=== PATIENT | female | born 1960 | race Caucasian/White ===

== ENCOUNTER 2022-08-23 09:48 | Emergency (ER) | payer OTHER ==
[2022-08-23 10:01] VITALS: RESP 18; TEMP 97.7
--- NOTE | 2022-08-23 10:04 | ED ---
General Adult HPI - General Chief complaint: Weakness Stated complaint: weakness Time Seen by Provider: 08/23/22 09:51 Source: patient, EMS Mode of arrival: EMS Limitations: no limitations - History of Present Illness Initial comments: Dictation was produced using [employer] dictation software. please excuse any grammatical, word or spelling errors. Chief Complaint: 62-year-old female with no known medical problems presents emergency department for lower back pain, left knee pain and numbness to her bilateral hands for several weeks to months History of Present Illness: Patient 62-year-old female she is a daily tobacco user. Patient herself is a poor historian. Patient was brought in by EMS from home. Apparently patient has been weak for the last 2 weeks according to EMS. She states that her hands have been numb for several months. Shows complains of chronic left knee pain and chronic lower back pain. She allegedly has not seen a physician in several years. Denies any fever, chills or night sweats. No recent trauma. The ROS documented in this emergency department record has been reviewed and confirmed by me. Those systems with pertinent positive or negative responses have been documented in the HPI. All other systems are other negative and/or noncontributory. PHYSICAL EXAM: General Impression: Alert and oriented x3, not in acute distress HEENT: Normocephalic atraumatic, extra-ocular movements intact, pupils equal and reactive to light bilaterally, mucous membranes moist. Cardiovascular: Heart regular rate and rhythm Chest: Able to complete full sentences, no retractions, no tachypnea Abdomen: abdomen soft, non-tender, non-distended, no organomegaly Musculoskeletal: Pulses present and equal in all extremities, no peripheral edema Bilateral hands: There is slight bluish tint to the bilateral hands. Decrease bilateral radial pulses, cold to touch, delayed cap refill Motor: no focal deficits noted Neurological: CN II-XII grossly intact, no focal motor or sensory deficits noted Skin: Intact with no visualized rashes Psych: Normal affect and mood ED course: 62-year-old female presents emergency department for chronic complaints of bilateral hand numbness, chronic left knee pain and lower back pain. Signs upon arrival are within acceptable limits. More history was obtained from Destin Bronson was patient's boyfriend. States that they've been dating for approximately urine a half. States that since they've had been dating she's been getting pale more and more weak. States that he has been having difficulty getting her into the primary care doctor. He denies that patient has any sort of acute issues at the moment. Most of her complaints that she is being evaluated for the ER today is ongoing for the last several months. Laboratory evaluation obtained. CBC, coag panel, metabolic panel is unremarkable. Patient reevaluated bedside 11:20 AM on a stable medical condition. Patient given multiple referrals to different primary care physician's in town. They're strongly advised to follow-up for further care. My EKG interpretation: Ventricular rate 50, sinus bradycardia,. Interval 123, tears 89, QTC 425. No AK prolongation, no QTC prolongation, no ST or T-wave changes noted. Overall, this EKG is unremarkable Critical Care: no Critical Care time: n/a - Related Data Allergies Allergy/AdvReac Type Severity Reaction Status Date / Time No Known Allergies Allergy Verified 08/23/22 10:02 Review of Systems ROS Statement: Those systems with pertinent positive or pertinent negative responses have been documented in the HPI. ROS Other: All systems not noted in ROS Statement are negative. Past Medical History Past Medical History: Osteoarthritis (OA) History of Any Multi-Drug Resistant Organisms: None Reported Past Psychological History: No Psychological Hx Reported Smoking Status: Current every day smoker Past Alcohol Use History: None Reported Past Drug Use History: None Reported General Exam Limitations: no limitations Course Vital Signs 08/23/22 09:53 Temperature 97.7 F Pulse Rate 62 Respiratory 18 Rate Blood Pressure 135/108 O2 Sat by Pulse 94 L Oximetry Medical Decision Making - Lab Data Result diagrams: 08/23/22 10:20 08/23/22 10:20 Lab Results 08/23/22 08/23/22 08/23/22 Range/Units 10:05 10:20 10:20 WBC 5.3 (3.8-10.6) k/uL RBC 4.17 (3.80-5.40) m/uL Hgb 14.3 (11.4-16.0) gm/dL Hct 41.2 (34.0-46.0) % MCV 98.7 (80.0-100.0) fL MCH 34.2 (25.0-35.0) pg MCHC 34.6 (31.0-37.0) g/dL RDW 14.4 (11.5-15.5) % Plt Count 103 L (150-450) k/uL MPV 9.4 Neutrophils % 67 % Lymphocytes % 23 % Monocytes % 3 % Eosinophils % 4 % Basophils % 1 % Neutrophils # 3.6 (1.3-7.7) k/uL Lymphocytes # 1.2 (1.0-4.8) k/uL Monocytes # 0.2 (0-1.0) k/uL Eosinophils # 0.2 (0-0.7) k/uL Basophils # 0.1 (0-0.2) k/uL PT 11.1 (9.0-12.0) sec INR 1.0 (<1.2) APTT 28.0 (22.0-30.0) sec Sodium (137-145) mmol/L Potassium (3.5-5.1) mmol/L Chloride (98-107) mmol/L Carbon Dioxide (22-30) mmol/L Anion Gap mmol/L BUN (7-17) mg/dL Creatinine (0.52-1.04) mg/dL Est GFR (CKD-EPI)AfAm (>60 ml/min/1.73 sqM) Est GFR (CKD-EPI)NonAf (>60 ml/min/1.73 sqM) Glucose (74-99) mg/dL POC Glucose (mg/dL) 73 (70-110) mg/dL POC Glu Citrix Lead ID [place], [place] Plasma Lactic Acid José Miguel (0.7-2.0) mmol/L Calcium (8.4-10.2) mg/dL Magnesium (1.6-2.3) mg/dL Total Bilirubin (0.2-1.3) mg/dL AST (14-36) U/L ALT (4-34) U/L Alkaline Phosphatase (38-126) U/L Total Protein (6.3-8.2) g/dL Albumin (3.5-5.0) g/dL 08/23/22 08/23/22 Range/Units 10:20 10:20 WBC (3.8-10.6) k/uL RBC (3.80-5.40) m/uL Hgb (11.4-16.0) gm/dL Hct (34.0-46.0) % MCV (80.0-100.0) fL MCH (25.0-35.0) pg MCHC (31.0-37.0) g/dL RDW (11.5-15.5) % Plt Count (150-450) k/uL MPV Neutrophils % % Lymphocytes % % Monocytes % % Eosinophils % % Basophils % % Neutrophils # (1.3-7.7) k/uL Lymphocytes # (1.0-4.8) k/uL Monocytes # (0-1.0) k/uL Eosinophils # (0-0.7) k/uL Basophils # (0-0.2) k/uL PT (9.0-12.0) sec INR (<1.2) APTT (22.0-30.0) sec Sodium 139 (137-145) mmol/L Potassium 4.2 (3.5-5.1) mmol/L Chloride 105 (98-107) mmol/L Carbon Dioxide 26 (22-30) mmol/L Anion Gap 8 mmol/L BUN 26 H (7-17) mg/dL Creatinine 1.26 H (0.52-1.04) mg/dL Est GFR (CKD-EPI)AfAm 52 (>60 ml/min/1.73 sqM) Est GFR (CKD-EPI)NonAf 45 (>60 ml/min/1.73 sqM) Glucose 138 H (74-99) mg/dL POC Glucose (mg/dL) (70-110) mg/dL POC Glu Citrix Lead ID Plasma Lactic Acid José Miguel 1.0 (0.7-2.0) mmol/L Calcium 7.9 L (8.4-10.2) mg/dL Magnesium 1.7 (1.6-2.3) mg/dL Total Bilirubin 0.7 (0.2-1.3) mg/dL AST 54 H (14-36) U/L ALT 23 (4-34) U/L Alkaline Phosphatase 82 (38-126) U/L Total Protein 7.4 (6.3-8.2) g/dL Albumin 4.5 (3.5-5.0) g/dL Disposition Clinical Impression: Hand numbness, Knee pain, Back pain Disposition: HOME SELF-CARE Condition: Good Instructions (If sedation given, give patient instructions): Osteoarthritis (ED) Additional Instructions: Feel free to follow-up with a primary care physician if your choice. He'll given multiple referrals to different primary care physician's around town. Is patient prescribed a controlled substance at d/c from ED?: No Referrals: Joyce Mcgovern MD [STAFF PHYSICIAN] - 1-2 days Julieta Martinez MD [STAFF PHYSICIAN] - 1-2 days Shawna Masters MD [STAFF PHYSICIAN] - 1-2 days Robert Holley MD [REFERRING] - 1-2 days Time of Disposition: 11:23
[2022-08-23 10:09] LABS: Glucose,Whole Blood 73 mg/dL (70-110)
[2022-08-23 10:33] LABS: Basophils # (A) 0.1 k/uL (0-0.2); Basophils % (A) 1 %; Eosinophils # (A) 0.2 k/uL (0-0.7); Eosinophils % (A) 4 %; HCT 41.2 % (34.0-46.0); HGB 14.3 gm/dL (11.4-16.0); Lymphocytes # (A) 1.2 k/uL (1.0-4.8); Lymphocytes % (A) 23 %; MCH 34.2 pg (25.0-35.0); MCHC 34.6 g/dL (31.0-37.0); MCV 98.7 fL (80.0-100.0); Mean Platelet Volume 9.4; Monocytes # (A) 0.2 k/uL (0-1.0); Monocytes % (A) 3 %; Neutrophils # (A) 3.6 k/uL (1.3-7.7); Neutrophils % (A) 67 %; Platelet Count 103 k/uL (150-450); RBC 4.17 m/uL (3.80-5.40); RDW 14.4 % (11.5-15.5); WBC 5.3 k/uL (3.8-10.6)
[2022-08-23 10:36] LABS: Prothrombin Time 11.1 sec (9.0-12.0)
[2022-08-23 10:39] LABS: Albumin 4.5 g/dL (3.5-5.0); Calcium 7.9 mg/dL (8.4-10.2); Magnesium 1.7 mg/dL (1.6-2.3); Potassium 4.2 mmol/L (3.5-5.1); Total Bilirubin 0.7 mg/dL (0.2-1.3); Total Protein 7.4 g/dL (6.3-8.2)
--- NOTE | 2022-08-23 11:05 | XR ---
EXAMINATION TYPE: XR lumbar spine 3 views XR left knee 4 views DATE OF EXAM: 08/23/2022 Comparison: None Clinical History: 62-year-old female pain Findings: Lumbar spine Lateral endplate spondylosis at multiple levels either region are partially bridging. Moderate multil evel degenerative disc disease with disc space narrowing and endplate spurring. Degenerative grade 1 retrolisthesis L2-L3 and L3-L4. Degenerative grade 1 anterolisthesis L4-L5. Hypertrophic facet arthro kelly mid to lower lumbar spine. Atherosclerotic calcification but the lower abdominal aorta and shira c arteries. Vertebral body heights are preserved. Possible large stool burden. Left knee: Extensor mechanism is intact. No knee joint effusion. Suggestion of some posterior loose bodies sugge sting underlying degenerative change. There is mild degenerative spurring medial compartment. Patella remains a peripherally situated along the trochlear groove. IMPRESSION: Lumbar spine: 1. Moderate multilevel degenerative disc disease. Hypertrophic facet arthropathy. 2. Degenerative grade 1 spondylolisthesis L2-L3, L3-L4, and L4-L5. 3. No vertebral compression collapse. 4. Possible large stool burden on the lateral view. Query constipation. Left knee: 5. At least mild medial compartmental osteoarthrosis. Suspect some posterior loose bodies in the knee . 6. No acute osseous abnormality seen.
[2022-08-23] MEDS ORDERED: traMADol 50 MG STARTER PACK 3 TAB BTL PO STA (11:23)
[2022-08-23 11:58] VITALS: BP 117/84; PULSE 78
== END 2022-08-23 11:57 | disposition home or self-care (01) ==
LOC: EC 09:48
DX: R20.0 Anesthesia of skin (principal); M25.562 Pain in left knee; M54.50 Low back pain, unspecified; M19.90 Unspecified osteoarthritis, unspecified site; F17.200 Nicotine dependence, unspecified, uncomplicated
CPT/HCPCS: 36415; 72100; 80053; 83605; 83735; 85025; 85610; 85730; 93005; 99285

== ENCOUNTER 2022-09-01 07:47 | Inpatient (IN) | payer OTHER ==
[2022-09-01] MEDS ORDERED: SODIUM CHLORIDE 0.9% 1,000 ML IV STA (08:05)
[2022-09-01 08:32] LABS: Prothrombin Time 10.7 sec (9.0-12.0)
[2022-09-01 08:33] LABS: Partial Thromboplastin Time 27.4 sec (22.0-30.0)
[2022-09-01 08:39] LABS: Basophils # (A) 0.1 k/uL (0-0.2); Basophils % (A) 1 %; Eosinophils # (A) 0.4 k/uL (0-0.7); Eosinophils % (A) 4 %; HCT 40.4 % (34.0-46.0); HGB 14.1 gm/dL (11.4-16.0); Lymphocytes # (A) 1.2 k/uL (1.0-4.8); Lymphocytes % (A) 10 %; MCH 33.8 pg (25.0-35.0); MCHC 34.8 g/dL (31.0-37.0); MCV 97.1 fL (80.0-100.0); Mean Platelet Volume 9.9; Monocytes # (A) 0.5 k/uL (0-1.0); Monocytes % (A) 4 %; Neutrophils # (A) 9.2 k/uL (1.3-7.7); Neutrophils % (A) 81 %; Platelet Count 107 k/uL (150-450); RBC 4.16 m/uL (3.80-5.40); RDW 14.1 % (11.5-15.5); WBC 11.3 k/uL (3.8-10.6)
[2022-09-01 08:40] LABS: ALT 20 U/L (4-34); AST 52 U/L (14-36); African American GFR (CKD) 40 (>60 ml/min/1.73 sqM); Albumin 4.5 g/dL (3.5-5.0); Alkaline Phosphatase 80 U/L (38-126); Anion Gap 10 mmol/L; Blood Urea Nitrogen 35 mg/dL (7-17); Calcium 7.8 mg/dL (8.4-10.2); Carbon Dioxide 26 mmol/L (22-30); Chloride 105 mmol/L (98-107); Glucose 82 mg/dL (74-99); Magnesium 1.8 mg/dL (1.6-2.3); Non-African American GFR(CKD) 35 (>60 ml/min/1.73 sqM); Potassium 4.2 mmol/L (3.5-5.1); Sodium 141 mmol/L (137-145); Total Bilirubin 0.7 mg/dL (0.2-1.3); Total Protein 7.3 g/dL (6.3-8.2)
--- NOTE | 2022-09-01 08:50 | ED ---
General Adult HPI - General Chief complaint: Weakness Stated complaint: weakness Time Seen by Provider: 09/01/22 07:47 Source: patient, EMS, RN notes reviewed, old records reviewed Mode of arrival: EMS Limitations: no limitations - History of Present Illness Initial comments: This is a 62-year-old female who presents emergency Department complaining of weakness shortness of breath and constipation getting worse over the last 2 weeks but much worse over the last week. Patient denies any chest pain patient denies abdominal pain patient denies any vomiting. Patient denies nausea. Patient denies any lightheadedness or dizziness. Patient denies any fever chills or cough. Patient denies any back pain. Patient states she never sees a doctor. Patient states she was in the hospital 2 weeks ago however and they told her she was weak because of her arthritis and sent her home. Patient did not follow-up with a physician. Patient denies any recent injury. Patient denies dysuria hematuria urinary frequency. - Related Data Home Medications Medication Instructions Recorded Confirmed No Known Home Medications 09/01/22 09/01/22 Allergies Allergy/AdvReac Type Severity Reaction Status Date / Time No Known Allergies Allergy Verified 09/01/22 09:50 Review of Systems ROS Statement: Those systems with pertinent positive or pertinent negative responses have been documented in the HPI. ROS Other: All systems not noted in ROS Statement are negative. Past Medical History Past Medical History: Osteoarthritis (OA) History of Any Multi-Drug Resistant Organisms: None Reported Past Surgical History: No Surgical Hx Reported Past Psychological History: No Psychological Hx Reported Smoking Status: Current every day smoker Past Alcohol Use History: None Reported Past Drug Use History: None Reported General Exam - General Exam Comments Initial Comments: GENERAL: Patient is well-developed and well-nourished. Patient is nontoxic and well- hydrated and is in mild distress. ENT: Neck is soft and supple. No significant lymphadenopathy is noted. Oropharynx is clear. Dry mucous membranes. Neck has full range of motion without eliciting any pain. EYES: The sclera were anicteric and conjunctiva were pink and moist. Extraocular movements were intact and pupils were equal round and reactive to light. Eyelids were unremarkable. PULMONARY: Unlabored respirations. Good breath sounds bilaterally. No audible rales rhonchi or wheezing was noted. CARDIOVASCULAR: There is a regular rate and rhythm without any murmurs gallops or rubs. ABDOMEN: Patient has a mass in the mid to right lower abdomen SKIN: Skin is clear with no lesions or rashes and otherwise unremarkable. NEUROLOGIC: Patient is alert and oriented x3. Cranial nerves II through XII are grossly intact. Motor and sensory are also intact. Normal speech, volume and content. Symmetrical smile. MUSCULOSKELETAL: Normal extremities with adequate strength and full range of motion. No lower extremity swelling or edema. No calf tenderness. LYMPHATICS: No significant lymphadenopathy is noted PSYCHIATRIC: Normal psychiatric evaluation. Limitations: no limitations Course Vital Signs 09/01/22 07:48 Temperature 97.6 F Pulse Rate 58 L Respiratory 18 Rate Blood Pressure 112/81 O2 Sat by Pulse 98 Oximetry Medical Decision Making - Medical Decision Making I interpreted EKG EKG shows sinus rhythm at 60 bpm DC interval is 119 QRS is 82 QT intervals 410 QTC is 411. Patient's EKG shows no ST segment elevation or depression. I interpreted the chest x-ray shows no acute abnormality. I interpreted the KUB it shows moderate constipation. Patient received multiple enemas in the ER with some results. Patient's TSH was over 100. I started the patient on Synthroid IV as well as hydrocortisone. I did this to prevent the patient from entering into myxedema. Currently patient is alert and oriented. She is just extremely weak. I spoke with Dr. robertson he agreed to admit the patient admitted the patient I wrote admitting orders. After I admitted the patient patient admitted that she used to take Synthroid but no longer takes and doesn't know why. - Lab Data Result diagrams: 09/01/22 08:14 09/01/22 08:14 Lab Results 09/01/22 09/01/22 09/01/22 Range/Units 08:14 08:14 08:14 WBC 11.3 H (3.8-10.6) k/uL RBC 4.16 (3.80-5.40) m/uL Hgb 14.1 (11.4-16.0) gm/dL Hct 40.4 (34.0-46.0) % MCV 97.1 (80.0-100.0) fL MCH 33.8 (25.0-35.0) pg MCHC 34.8 (31.0-37.0) g/dL RDW 14.1 (11.5-15.5) % Plt Count 107 L (150-450) k/uL MPV 9.9 Neutrophils % 81 % Lymphocytes % 10 % Monocytes % 4 % Eosinophils % 4 % Basophils % 1 % Neutrophils # 9.2 H (1.3-7.7) k/uL Lymphocytes # 1.2 (1.0-4.8) k/uL Monocytes # 0.5 (0-1.0) k/uL Eosinophils # 0.4 (0-0.7) k/uL Basophils # 0.1 (0-0.2) k/uL PT 10.7 (9.0-12.0) sec INR 1.0 (<1.2) APTT 27.4 (22.0-30.0) sec Sodium 141 (137-145) mmol/L Potassium 4.2 (3.5-5.1) mmol/L Chloride 105 (98-107) mmol/L Carbon Dioxide 26 (22-30) mmol/L Anion Gap 10 mmol/L BUN 35 H (7-17) mg/dL Creatinine 1.57 H (0.52-1.04) mg/dL Est GFR (CKD-EPI)AfAm 40 (>60 ml/min/1.73 sqM) Est GFR (CKD-EPI)NonAf 35 (>60 ml/min/1.73 sqM) Glucose 82 (74-99) mg/dL Plasma Lactic Acid José Miguel (0.7-2.0) mmol/L Calcium 7.8 L (8.4-10.2) mg/dL Magnesium 1.8 (1.6-2.3) mg/dL Total Bilirubin 0.7 (0.2-1.3) mg/dL AST 52 H (14-36) U/L ALT 20 (4-34) U/L Alkaline Phosphatase 80 (38-126) U/L Troponin I (0.000-0.034) ng/mL Total Protein 7.3 (6.3-8.2) g/dL Albumin 4.5 (3.5-5.0) g/dL TSH >100.000 H (0.465-4.680) mIU/L Free T4 (0.78-2.19) ng/dL Urine Color Urine Appearance (Clear) Urine pH (5.0-8.0) Ur Specific [place] (1.001-1.035) Urine Protein (Negative) Urine Glucose (UA) (Negative) Urine Ketones (Negative) Urine Blood (Negative) Urine Nitrite (Negative) Urine Bilirubin (Negative) Urine Urobilinogen (<2.0) mg/dL Ur Leukocyte Esterase (Negative) Urine RBC (0-5) /hpf Urine WBC (0-5) /hpf Ur Squamous Epith Cells (0-4) /hpf Urine Mucus (None) /hpf 09/01/22 09/01/22 09/01/22 Range/Units 08:14 08:14 08:14 WBC (3.8-10.6) k/uL RBC (3.80-5.40) m/uL Hgb (11.4-16.0) gm/dL Hct (34.0-46.0) % MCV (80.0-100.0) fL MCH (25.0-35.0) pg MCHC (31.0-37.0) g/dL RDW (11.5-15.5) % Plt Count (150-450) k/uL MPV Neutrophils % % Lymphocytes % % Monocytes % % Eosinophils % % Basophils % % Neutrophils # (1.3-7.7) k/uL Lymphocytes # (1.0-4.8) k/uL Monocytes # (0-1.0) k/uL Eosinophils # (0-0.7) k/uL Basophils # (0-0.2) k/uL PT (9.0-12.0) sec INR (<1.2) APTT (22.0-30.0) sec Sodium (137-145) mmol/L Potassium (3.5-5.1) mmol/L Chloride (98-107) mmol/L Carbon Dioxide (22-30) mmol/L Anion Gap mmol/L BUN (7-17) mg/dL Creatinine (0.52-1.04) mg/dL Est GFR (CKD-EPI)AfAm (>60 ml/min/1.73 sqM) Est GFR (CKD-EPI)NonAf (>60 ml/min/1.73 sqM) Glucose (74-99) mg/dL Plasma Lactic Acid José Miguel 1.1 (0.7-2.0) mmol/L Calcium (8.4-10.2) mg/dL Magnesium (1.6-2.3) mg/dL Total Bilirubin (0.2-1.3) mg/dL AST (14-36) U/L ALT (4-34) U/L Alkaline Phosphatase (38-126) U/L Troponin I <0.012 (0.000-0.034) ng/mL Total Protein (6.3-8.2) g/dL Albumin (3.5-5.0) g/dL TSH (0.465-4.680) mIU/L Free T4 0.15 L (0.78-2.19) ng/dL Urine Color Urine Appearance (Clear) Urine pH (5.0-8.0) Ur Specific [place] (1.001-1.035) Urine Protein (Negative) Urine Glucose (UA) (Negative) Urine Ketones (Negative) Urine Blood (Negative) Urine Nitrite (Negative) Urine Bilirubin (Negative) Urine Urobilinogen (<2.0) mg/dL Ur Leukocyte Esterase (Negative) Urine RBC (0-5) /hpf Urine WBC (0-5) /hpf Ur Squamous Epith Cells (0-4) /hpf Urine Mucus (None) /hpf 09/01/22 Range/Units 09:40 WBC (3.8-10.6) k/uL RBC (3.80-5.40) m/uL Hgb (11.4-16.0) gm/dL Hct (34.0-46.0) % MCV (80.0-100.0) fL MCH (25.0-35.0) pg MCHC (31.0-37.0) g/dL RDW (11.5-15.5) % Plt Count (150-450) k/uL MPV Neutrophils % % Lymphocytes % % Monocytes % % Eosinophils % % Basophils % % Neutrophils # (1.3-7.7) k/uL Lymphocytes # (1.0-4.8) k/uL Monocytes # (0-1.0) k/uL Eosinophils # (0-0.7) k/uL Basophils # (0-0.2) k/uL PT (9.0-12.0) sec INR (<1.2) APTT (22.0-30.0) sec Sodium (137-145) mmol/L Potassium (3.5-5.1) mmol/L Chloride (98-107) mmol/L Carbon Dioxide (22-30) mmol/L Anion Gap mmol/L BUN (7-17) mg/dL Creatinine (0.52-1.04) mg/dL Est GFR (CKD-EPI)AfAm (>60 ml/min/1.73 sqM) Est GFR (CKD-EPI)NonAf (>60 ml/min/1.73 sqM) Glucose (74-99) mg/dL Plasma Lactic Acid José Miguel (0.7-2.0) mmol/L Calcium (8.4-10.2) mg/dL Magnesium (1.6-2.3) mg/dL Total Bilirubin (0.2-1.3) mg/dL AST (14-36) U/L ALT (4-34) U/L Alkaline Phosphatase (38-126) U/L Troponin I (0.000-0.034) ng/mL Total Protein (6.3-8.2) g/dL Albumin (3.5-5.0) g/dL TSH (0.465-4.680) mIU/L Free T4 (0.78-2.19) ng/dL Urine Color Yellow Urine Appearance Clear (Clear) Urine pH 5.5 (5.0-8.0) Ur Specific [place] 1.014 (1.001-1.035) Urine Protein Trace H (Negative) Urine Glucose (UA) Negative (Negative) Urine Ketones Negative (Negative) Urine Blood Moderate H (Negative) Urine Nitrite Negative (Negative) Urine Bilirubin Negative (Negative) Urine Urobilinogen <2.0 (<2.0) mg/dL Ur Leukocyte Esterase Moderate H (Negative) Urine RBC 19 H (0-5) /hpf Urine WBC 6 H (0-5) /hpf Ur Squamous Epith Cells 2 (0-4) /hpf Urine Mucus Rare H (None) /hpf Critical Care Time Critical Care Time: Yes Total Critical Care Time: 35 Disposition Clinical Impression: Hypothyroidism, Generalized weakness, Renal insufficiency Disposition: ADMITTED IP TO THIS [facility] Referrals: None,Stated [Primary Care Provider] - 1-2 days Time of Disposition: 12:00
--- NOTE | 2022-09-01 09:03 | XR ---
EXAMINATION TYPE: XR chest 2V DATE OF EXAM: 09/01/2022 COMPARISON: NONE HISTORY: Weakness. TECHNIQUE: Frontal and lateral views of the chest are obtained. FINDINGS: There is no focal air space opacity, pleural effusion, or pneumothorax seen. Cardiomegaly is present. Overlying EKG leads are noted. Spine is straightened on lateral projection. IMPRESSION: Cardiomegaly without acute pulmonary process.
--- NOTE | 2022-09-01 09:05 | XR ---
EXAMINATION TYPE: XR KUB DATE OF EXAM: 09/01/2022 8:58 AM CLINICAL HISTORY: Abdominal pain and weakness. TECHNIQUE: Single supine KUB image of the abdomen is obtained. COMPARISON: None. FINDINGS: Gas is seen in small and large bowel loops throughout the abdomen and pelvis. There is prom inent gas filled colonic loop in the upper to mid abdomen likely reflects portion of transverse colon . Colonic fecal prominence in the pelvis is noted. Slight scoliotic curvature with multilevel spurrin g in the spine. Advanced degenerative change left hip with marked joint space narrowing. Pelvis not c ompletely imaged. IMPRESSION: Overall nonspecific but favor nonobstructive bowel gas pattern. Severe distal colonic fecal stasis is suspected. Correlate clinically.
[2022-09-01 10:59] LABS: Appearance,Urine Clear (Clear); Bilirubin,Urine Negative (Negative); Blood,Urine Moderate (Negative); Color,Urine Yellow; Glucose,Urine (UA) Negative (Negative); Ketones,Urine Negative (Negative); Leukocyte Esterase,Urine Moderate (Negative); Mucus,Urine Rare /hpf; Nitrite,Urine Negative (Negative); PH, Urine 5.5 (5.0-8.0); Protein,Urine Trace (Negative); RBC,Urine 19 /hpf (0-5); Specific Gravity,Urine 1.014 (1.001-1.035); Squamous Epithelial Cell,Urine 2 /hpf (0-4); Urobilinogen,Urine <2.0 mg/dL (<2.0); WBC,Urine 6 /hpf (0-5)
[2022-09-01] MEDS ORDERED: HYDROCORTISONE SUCCINATE 100 MG/2 ML VIAL IV STA (11:34)
[2022-09-01] MEDS ORDERED: LEVOTHYROXINE IVP 100 MCG/5 ML VIAL IV STA (11:40)
[2022-09-01] MEDS ORDERED: SODIUM CHLORIDE 0.9% 1,000 ML IV ONE (12:16)
[2022-09-01] MEDS ORDERED: IPRATROPIUM-ALBUTEROL 3 ML NEB INHALATION PRN (13:32)
[2022-09-01] MEDS ORDERED: IOPAMIDOL CONTRAST (ORAL USE) VIAL PO PRN (13:33)
--- NOTE | 2022-09-01 13:41 | P.HPIM ---
History of Present Illness This is a pleasant 62 years old female with past medical history of osteoarthritis, Patient presents because of increased weakness, numbness in her hands and feet Patient states that she feels weak for 4 months, however since yesterday she said she cannot walk because of her weakness, at baseline she uses a walker. She lives in apartment with her boyfriend. Also she reports chronic numbness in her hand and feet for about a month. She denies any other numbness, no blurred vision or slurred speech. No dizziness. She denies chest pain or dyspnea. However she states that she has headache about 5/10 of one day duration, but also she reports chronic pain in her neck. She denies chest pain or dyspnea, she had normal bowel movement no vomiting no abdominal pain or tenderness however her abdomen looks significantly distended. She smokes about half pack per day, she was counseled to quit she declines also she does not want nicotine patch. No alcohol or illicit drug. She says that she supposed to be on thyroid hormone replacement therapy but she stopped taking it for 1.5 years ago because she thought she does not needed. She states that she supposed to be on vitamin D, acid reflux disease and inhaler as she has history of COPD Vitas looks stable, patient is afebrile she is not hypothermic. Labs showing mild leukocytosis of 11.3. Rest of CBC, INR is unremarkable Creatinine is trending up 1.5, it was 1.2 about 10 days ago. Trace of BMP and liver enzymes were unremarkable. TSH is more than 100, free T4 is less than 0.15 EKG showing sinus rhythm with short WI interval, T waves in the lateral limits. No significant ST-T changes Abdominal x-ray/KUB: Overall nonspecific but favor nonobstructive bowel gas pattern. Severe distal colonic fecal stasis is suspected. Chest x-ray: Cardiomegaly without acute pulmonary process serum cortisol is 14 in the emergency room patient received 1 dose of Cortef 100 mg as well as IV levothyroxine. Also she was started on normal saline 100 mL per hour. Review of Systems Review of systems CONSTITUTIONAL: No fever, , no fatigue. HEENT: No recent visual problems or hearing problems. Denied any sore throat. CARDIOVASCULAR: No orthopnea, PND, no palpitations, no syncope. PULMONARY: No shortness of breath, no cough, no hemoptysis. GASTROINTESTINAL: No diarrhea, no nausea, no vomiting, no abdominal pain. Normoactive bowel sounds. NEUROLOGICAL: no weakness, no numbness. HEMATOLOGICAL: Denies any bleeding or petechiae. GENITOURINARY: Denies any burning micturition, frequency, or urgency. MUSCULOSKELETAL/RHEUMATOLOGICAL: Denies any joint pain, swelling, or any muscle pain. ENDOCRINE: Denies any polyuria or polydipsia. Past Medical History Past Medical History: Osteoarthritis (OA) History of Any Multi-Drug Resistant Organisms: None Reported Past Surgical History: No Surgical Hx Reported Past Psychological History: No Psychological Hx Reported Smoking Status: Current every day smoker Past Alcohol Use History: None Reported Past Drug Use History: None Reported Medications and Allergies Home Medications Medication Instructions Recorded Confirmed Type No Known Home Medications 09/01/22 09/01/22 History Allergies Allergy/AdvReac Type Severity Reaction Status Date / Time No Known Allergies Allergy Verified 09/01/22 09:50 Physical Exam Vitals: Vital Signs Temp Pulse Resp BP Pulse Ox 09/01/22 07:48 97.6 F 58 L 18 112/81 98 Intake and Output 08/31/22 09/01/22 09/01/22 22:59 06:59 14:59 Other: Weight 79.379 kg -GENERAL: The patient is alert and oriented x3, not in any acute distress. Well developed, well nourished. Generally weak HEENT: Pupils are round and equally reacting to light. EOMI. No scleral icterus. No conjunctival pallor. Normocephalic, atraumatic. No pharyngeal erythema. No thyromegaly. CARDIOVASCULAR: S1 and S2 present. No murmurs, rubs, or gallops. PULMONARY: Chest is clear to auscultation, no wheezing or crackles. -ABDOMEN: Soft, nontender, distended, normoactive bowel sounds. No palpable organomegaly. MUSCULOSKELETAL: No joint swelling or deformity. EXTREMITIES: No cyanosis, clubbing, or pedal edema. -NEUROLOGICAL: Gross neurological examination did not reveal any focal deficits. Cranial nerves are grossly intact. Motor is 5/5 in all extremity, right lower extremity is 4+/5 but this could be limited by patient joint problems. Sensation is intact. Meningeal signs are absent SKIN: No rashes. no petechiae. Results CBC & Chem 7: 09/01/22 08:14 09/01/22 08:14 Labs: Abnormal Lab Results - Last 24 Hours (Table) 09/01/22 09/01/22 09/01/22 Range/Units 08:14 08:14 08:14 WBC 11.3 H (3.8-10.6) k/uL Plt Count 107 L (150-450) k/uL Neutrophils # 9.2 H (1.3-7.7) k/uL BUN 35 H (7-17) mg/dL Creatinine 1.57 H (0.52-1.04) mg/dL Calcium 7.8 L (8.4-10.2) mg/dL AST 52 H (14-36) U/L TSH >100.000 H (0.465-4.680) mIU/L Free T4 0.15 L (0.78-2.19) ng/dL Urine Protein (Negative) Urine Blood (Negative) Ur Leukocyte Esterase (Negative) Urine RBC (0-5) /hpf Urine WBC (0-5) /hpf Urine Mucus (None) /hpf 09/01/22 Range/Units 09:40 WBC (3.8-10.6) k/uL Plt Count (150-450) k/uL Neutrophils # (1.3-7.7) k/uL BUN (7-17) mg/dL Creatinine (0.52-1.04) mg/dL Calcium (8.4-10.2) mg/dL AST (14-36) U/L TSH (0.465-4.680) mIU/L Free T4 (0.78-2.19) ng/dL Urine Protein Trace H (Negative) Urine Blood Moderate H (Negative) Ur Leukocyte Esterase Moderate H (Negative) Urine RBC 19 H (0-5) /hpf Urine WBC 6 H (0-5) /hpf Urine Mucus Rare H (None) /hpf Assessment and Plan Assessment: Hypothyroidism with TSH more than 100 and low T4 Acute kidney injury Possible acute urinary tract infection Versus asymptomatic bacteriuria Generalized weakness secondary to above bilateral hands and feet numbness, chronic 1 month Abdominal distention Noncompliance with medication and follow-up COPD, not an active issue Nicotine dependence Plan: Continue with normal saline Start levothyroxine Start ceftriaxone follow-up urine culture Start that replacement therapy Consult neurology service Check bladder scan we will do CT of the abdomen and pelvis without IV contrast, risks and benefits are explained for the patient and she agrees Check Pro-calcitonin. Follow-up urine culture I offered patient to transfer her to a tertiary care center as we don't have database technician in this facility, patient declined and she wants to stay here for treatment. Risks and benefits are explained for the patient and she verbalized understanding Labs and medication were reviewed.. Continue same treatment. Continue with symptomatic treatment. Resume home medication. Monitor labs and vitals. DVT and GI prophylaxis. Further recommendations as per clinical course of the patient DVT prophylaxis: Subcutaneous heparin GI Prophylaxis: Pepcid PT/OT: Pending Prognosis is guarded
[2022-09-01 17:17] LABS: C Reactive Protein 0.9 mg/dL (<1.0)
--- NOTE | 2022-09-01 17:23 | CT ---
EXAMINATION TYPE: CT brain wo con CT DLP: 1137.4 mGycm, Automated exposure control for dose reduction was used. DATE OF EXAM: 09/01/2022 4:58 PM COMPARISON: None. CLINICAL INDICATION:Female, 62 years old with history of Abnormal gait, Abnormal gait, weakness TECHNIQUE: Brain: Axial CT images of the brain were obtained with coronal and sagittal reformats created and rev iewed. Contrast used: None. Oral contrast used: None. FINDINGS: Brain: Extra-axial spaces: No abnormal extra-axial fluid collections. Ventricular system: Within normal limits Cerebral parenchyma: No acute intraparenchymal hemorrhage or mass effect. Hypodense foci in the thal ami bilaterally are present left greater than right. The duke-white junction is well differentiated. Scattered hypoattenuating areas are seen within the white matter. Cerebellum: Unremarkable. Mass effect: No evidence of midline shift. Intracranial vasculature: Atherosclerotic calcifications of the intracranial vessels. Soft tissues: Normal. Calvarium/osseous structures: No depressed skull fracture. Paranasal sinuses and mastoid air cells: Mild scattered paranasal sinus disease most proximal right a xilla sinus and right anterior ethmoid air cells. Visualized orbits: Orbital contents are intact. IMPRESSION: 1. no acute intracranial process. 2. Indeterminate likely remote lacunar injuries within the thalami along with nonspecific white matte r changes likely secondary to chronic microangiopathy.
--- NOTE | 2022-09-01 17:41 | CT ---
EXAMINATION TYPE: CT abdomen pelvis wo con CT DLP: 582.7 mGycm, Automated exposure control for dose reduction was used. DATE OF EXAM: 09/01/2022 5:04 PM COMPARISON: None CLINICAL INDICATION:Female, 62 years old with history of abd distension; Abdominal distension, no bow el movement for a while. Did attempt oral contrast. TECHNIQUE: Axial CT of the abdomen and pelvis. Sagittal and coronal reformats were created on a [email or web address] workstation. Contrast used: None Oral contrast used: with Oral Contrast FINDINGS: LOWER CHEST: Unremarkable ABDOMEN LIVER: Unremarkable GALLBLADDER AND BILE DUCTS: Few gallstones are present. PANCREAS: Unremarkable. SPLEEN: Unremarkable. ADRENAL GLANDS: Unremarkable. KIDNEYS AND URETERS: Mild bilateral hydronephrosis likely secondary to mass effect from large stool b urden. No evidence of obstructive calculus. PELVIS BLADDER: Displaced secondary to large stool burden. REPRODUCTIVE: Displaced secondary to large stool burden. ABDOMEN & PELVIS STOMACH AND BOWEL: Marked amount of stool is seen throughout the rectum measuring up to 11.4 cm. Carlos tional large amount of stool seen in the colon particularly the descending colon along with a large a mount of gas. There is circumferential wall thickening of the rectum measuring up to 6 mm. There is a large amount of ingested contents within the stomach. PERITONEUM: No evidence of pneumoperitoneum or free fluid. VASCULATURE: No evidence of aortic aneurysm. Atherosclerosis of the arterial vasculature. MUSCULOSKELETAL: No acute osseous abnormalities LYMPH NODES: No gross evidence for lymphadenopathy. SOFT TISSUE/ABDOMINAL WALL: Unremarkable IMPRESSION: 1. Marked amount of stool seen throughout the colon particularly the sigmoid colon and descending co krishna. Fecal disimpaction recommended as there are signs of stercoral colitis with wall thickening of t he rectum. 2. Cholelithiasis. 3. Mild bilateral hydronephrosis likely secondary to mass effect from large stool burden.
[2022-09-01] MEDS ORDERED: MINERAL OIL 133 ML ENEMA RECTAL STA (18:05)
--- NOTE | 2022-09-01 18:11 | P.CNNES ---
History of Present Illness Consult date: 09/01/22 Requesting physician: Chema Rodrigues Reason for Consult: Cannot walk History of Present Illness: Patient is a 62-year-old female came to the hospital by ambulance today at 7:47 AM. As per EMS flow sheet, when they arrived, patient was alert and oriented sitting upright in chair. Patient noted that over the past 2 weeks, she has become progressively weaker and is now unable to ambulate on her own. Patient's family have noticed that patient has difficulty clearly speaking over the same period of time. Patient has noted constipation and unable to have a bowel movement in over a week. Patient's abdomen is severely distended enlarged hard nonpainful mass is noted in the right upper abdomen. EKG showed sinus rhythm. Patient's vitals at the scene showed blood pressure 124/86, pulse rate 60, respiration 20 and saturation 98%. EKG shows sinus rhythm. KUB revealed overall nonspecific but favor nonobstructive bowel gas pattern. Severe distal colonic fecal stasis is suspected. Chest x-ray revealed cardiomegaly without acute pulmonary process. Blood test shows WBC 11.3 hemoglobin 14.1, platelets 107. PT/PTT is normal, electrolytes are normal, BUN 35 creatinine 1.57. AST 52, ALT 20. Troponin negative. TSH is > 100, free T4 is low 0.15. Cortisol is normal. UA shows moderate amount of leukocyte Estrace and 6 WBC. Patient and her significant other provided further history. Patient has been slightly wobbly for last 1 year, which has slowly gotten worse, particularly in the last 2 weeks when she has not been able to get up or walk. her memory is fine. No problems with control of bladder or urgency, although she does not drink much fluids so she does not have to pass urine as frequent. patient states that in the last 1 month she has developed lack of feeling in the hands all the way up to the shoulders. For the same period of time, she has developed numbness of her legs all the way as to the hips. She has to navigate around holding on the rawls for walking. However in the last 2 weeks she has not been able to walk. She scoot around a walker with seat. She started using walker about 2 weeks ago. Patient admits to neck pain, but not as bad, rates 5/10. It is on and off. She denies any headaches. Patient has smoked 1 pack per day for last 42 years. Denies any alcohol or drug use. Patient denies any diabetes or blood pressure. Patient currently does not take any medications. She was given thyroid medication in the past but has not taken it for almost 16 months. Review of Systems Constitutional: Reports weakness, Denies chills, Denies fever Eyes: denies blurred vision, denies pain Ears, nose, mouth and throat: Denies headache, Denies sore throat Cardiovascular: Denies chest pain, Denies shortness of breath Respiratory: Denies cough Gastrointestinal: Denies abdominal pain, Denies diarrhea, Denies nausea, Denies vomiting Genitourinary: Denies dysuria, Denies hematuria Musculoskeletal: Reports muscle weakness, Reports neck pain, Denies myalgias Integumentary: Denies pruritus, Denies rash Neurological: Reports as per HPI Psychiatric: Denies anxiety, Denies depression Hematologic/Lymphatic: Denies easy bruising Past Medical History Past Medical History: Osteoarthritis (OA) History of Any Multi-Drug Resistant Organisms: None Reported Past Surgical History: No Surgical Hx Reported Past Psychological History: No Psychological Hx Reported Smoking Status: Current every day smoker Past Alcohol Use History: None Reported Past Drug Use History: None Reported - Past Family History Mother History Unknown: Yes Medications and Allergies Home Medications Medication Instructions Recorded Confirmed Type No Known Home Medications 09/01/22 09/01/22 History Allergies Allergy/AdvReac Type Severity Reaction Status Date / Time No Known Allergies Allergy Verified 09/01/22 09:50 Physical Examination - Vital Signs Vital Signs: Vital Signs Temp Pulse Resp BP Pulse Ox 09/01/22 07:48 97.6 F 58 L 18 112/81 98 Intake and Output 08/31/22 09/01/22 09/01/22 22:59 06:59 14:59 Other: Weight 79.379 kg Patient is a late middle aged female in no acute distress. Patient is alert awake oriented to time place and person. Patient knows it is August 2022 and that patient is in [facility] and name of the current president. Speech and language functions are normal. Patient can name and repeat very well. No aphasia or dysarthria. Attention, concentration and fund of knowledge is adequate. On cranial nerve examination, pupils are equal, round and reacting to light, visual park are full on confrontation, with no neglect on double simultaneous stimulation. Extraocular muscles are intact with no nystagmus. Face is symmetric, tongue protrudes to the midline. Palatal elevation and sensation normal, hearing and shoulder shrug normal, facial sensation normal. On muscle strength testing, there is no pronator drift and the strength is (right/left) deltoid 5/4, biceps 5/5, triceps 5/5, powerhouse electrician 5-/5-, hip flexion 3+4-/3+4-, hip adduction 5/5, abduction 4+5-/4+5-, knee extension 5/5, ankle dorsiflexion 5/5, toe extension 5/5. Deep tendon reflexes are (right/left) biceps 2+/3, brachioradialis 2+/3, knees 2+/to, ankles 0/0 and plantars are upgoing bilaterally Sensory to pinprick is decreased in the arms all the way up to the shoulders. In the lower limbs pinprick was decreased from toes up to above-knee on the left, and from toes up to mid thigh on the right. Joint position sense was also significantly impaired, as she was not accurate on multiple attempts. Cerebellar function showed mild to moderate ataxia for [id number] and for [id number] testing bilaterally. Tone and bulk of muscles normal. Gait deferred.. On general examination, there is no carotid bruit or murmur, S1-S2 audible. Chest is clear on consultation. Abdomen is very protuberant, with a lot of gas, but appears nontender. No obvious organomegaly, bowel sounds present. Periphe ral pulses are present. No edema. Results - Laboratory Findings CBC and BMP: 09/01/22 08:14 09/01/22 08:14 Abnormal Lab Findings: Abnormal Labs 09/01/22 09/01/22 09/01/22 08:14 08:14 08:14 WBC 11.3 H Plt Count 107 L Neutrophils # 9.2 H BUN 35 H Creatinine 1.57 H Calcium 7.8 L AST 52 H TSH >100.000 H Free T4 0.15 L Urine Protein Urine Blood Ur Leukocyte Esterase Urine RBC Urine WBC Urine Mucus 09/01/22 09:40 WBC Plt Count Neutrophils # BUN Creatinine Calcium AST TSH Free T4 Urine Protein Trace H Urine Blood Moderate H Ur Leukocyte Esterase Moderate H Urine RBC 19 H Urine WBC 6 H Urine Mucus Rare H Assessment and Plan Assessment: * 62-year-old female with progressive numbness and tingling of the lower and upper extremities, with ataxia and gait imbalance. Rule out B12, folate deficiency or some other nutritional deficiency. Guillain-Alexander syndrome unlikely because of preserved reflexes. * Abdominal distention, unclear etiology. * Hypothyroidism, severe, untreated. * Tobacco use Plan: * Patient is undergoing computed tomography scan of abdomen and pelvis. We will also check computed tomography scan of the head to rule out any intracranial mass. * We will obtain detailed blood tests as ordered. * If no obvious answers identified, then patient may need MRI of the cervical spine. * Neurology will follow. Thank you for the consult. Time with Patient: Greater than 30
[2022-09-01] MEDS: DOCUSATE 100 MG CAP PO SCH (19:59)
[2022-09-01] MEDS: HEPARIN SODIUM,PORCINE/PF 5,000 UNIT/0.5 ML SYRINGE SQ SCH (19:59)
[2022-09-01] MEDS: FAMOTIDINE 20 MG/2 ML VIAL IV SCH (19:59)
[2022-09-01 23:23] LABS: Glucose,Whole Blood 109 mg/dL (70-110)
[2022-09-02] MEDS ORDERED: LEVOTHYROXINE 75 MCG TAB PO SCH (06:30)
[2022-09-02] MEDS: DEXTROSE 5%-0.9% NACL 1,000 ML IV SCH ×2 (06:53→20:39)
[2022-09-02] MEDS ORDERED: LEVOTHYROXINE IVP 100 MCG/5 ML VIAL IV SCH ×2 (09:00)
[2022-09-02 09:16] LABS: Albumin 3.8 g/dL (3.5-5.0); Bilirubin, Delta 1.1 mg/dL (0.0-0.2); Calcium 6.9 mg/dL (8.4-10.2); Potassium 4.2 mmol/L (3.5-5.1); Total Bilirubin 1.1 mg/dL (0.2-1.3); Total Protein 6.3 g/dL (6.3-8.2)
[2022-09-02] MEDS: HEPARIN SODIUM,PORCINE/PF 5,000 UNIT/0.5 ML SYRINGE SQ SCH ×2 (09:39→20:38)
[2022-09-02] MEDS: DOCUSATE 100 MG CAP PO SCH ×2 (09:39→20:38)
[2022-09-02 09:50] LABS: Basophils % (A) 1 %; Eosinophils # (A) 0.1 k/uL (0-0.7); Eosinophils % (A) 2 %; HGB 12.3 gm/dL (11.4-16.0); Lymphocytes # (A) 0.9 k/uL (1.0-4.8); Lymphocytes % (A) 12 %; MCH 33.3 pg (25.0-35.0); MCHC 33.2 g/dL (31.0-37.0); MCV 100.2 fL (80.0-100.0); Macrocytosis Slight; Mean Platelet Volume 10.2; Monocytes # (A) 0.3 k/uL (0-1.0); Monocytes % (A) 4 %; Neutrophils # (A) 5.8 k/uL (1.3-7.7); Neutrophils % (A) 80 %; RBC 3.69 m/uL (3.80-5.40); RDW 13.9 % (11.5-15.5); WBC 7.2 k/uL (3.8-10.6)
--- NOTE | 2022-09-02 10:34 | P.PN ---
Subjective This is a pleasant 62 years old female with past medical history of osteoarthritis, Patient presents because of increased weakness, numbness in her hands and feet Patient states that she feels weak for 4 months, however since yesterday she said she cannot walk because of her weakness, at baseline she uses a walker. She lives in apartment with her boyfriend. Also she reports chronic numbness in her hand and feet for about a month. She denies any other numbness, no blurred vision or slurred speech. No dizziness. She denies chest pain or dyspnea. However she states that she has headache about 5/10 of one day duration, but also she reports chronic pain in her neck. She denies chest pain or dyspnea, she had normal bowel movement no vomiting no abdominal pain or tenderness however her abdomen looks significantly distended. She smokes about half pack per day, she was counseled to quit she declines also she does not want nicotine patch. No alcohol or illicit drug. She says that she supposed to be on thyroid hormone replacement therapy but she stopped taking it for 1.5 years ago because she thought she does not needed. She states that she supposed to be on vitamin D, acid reflux disease and inhaler as she has history of COPD Vitas looks stable, patient is afebrile she is not hypothermic. Labs showing mild leukocytosis of 11.3. Rest of CBC, INR is unremarkable Creatinine is trending up 1.5, it was 1.2 about 10 days ago. Trace of BMP and liver enzymes were unremarkable. TSH is more than 100, free T4 is less than 0.15 EKG showing sinus rhythm with short [place] interval, T waves in the lateral limits. No significant ST-T changes Abdominal x-ray/KUB: Overall nonspecific but favor nonobstructive bowel gas pattern. Severe distal colonic fecal stasis is suspected. Chest x-ray: Cardiomegaly without acute pulmonary process serum cortisol is 14 in the emergency room patient received 1 dose of Cortef 100 mg as well as IV levothyroxine. Also she was started on normal saline 100 mL per hour. 09/02/2022 She's awake alert, she still feels generally weak. No chest pain or dyspnea. She denies specific urinary symptoms or abdominal pain or tenderness Patient with chronic bilateral feet and hand numbness. She still complaining from neck pain about 5/10 and states that's from her spine, neurologist on the case and patient may benefit from further testing of the cervical spine. She is hemodynamically stable and only mildly bradycardic secondary to thyroid hormone. CBC is unremarkable and received back to normal. Creatinine 1.5 but she did not receive much fluids last night, we will keep normal saline at 75 mL/h. Neurologist on the case. She remains on ceftriaxone for possible UTI and/or colitis. Objective - Vital Signs Vital signs: Vital Signs Temp 98.4 F 09/02/22 08:34 Pulse 54 L 09/02/22 08:34 Resp 16 09/02/22 08:34 BP 115/72 09/02/22 08:34 Pulse Ox 97 09/02/22 08:34 FiO2 Intake & Output 09/01/22 09/02/22 09/02/22 18:59 06:59 18:59 Output Total 440 1150 Balance -440 -1150 Weight 79.379 kg Output: Urine 1150 Straight 1150 Post Void Residual 440 Other: # Voids 0 # Bowel Movements 1 - Exam -GENERAL: The patient is alert and oriented x3, not in any acute distress. Well developed, well nourished. Generally weak HEENT: Pupils are round and equally reacting to light. EOMI. No scleral icterus. No conjunctival pallor. Normocephalic, atraumatic. No pharyngeal erythema. No thyromegaly. CARDIOVASCULAR: S1 and S2 present. No murmurs, rubs, or gallops. PULMONARY: Chest is clear to auscultation, no wheezing or crackles. -ABDOMEN: Soft, nontender, distended, normoactive bowel sounds. No palpable organomegaly. MUSCULOSKELETAL: No joint swelling or deformity. EXTREMITIES: No cyanosis, clubbing, or pedal edema. NEUROLOGICAL: Gross neurological examination did not reveal any focal deficits. SKIN: No rashes. no petechiae. - Labs CBC & Chem 7: 09/02/22 08:00 09/02/22 08:00 Labs: Abnormal Lab Results - Last 24 Hours (Table) 09/01/22 09/01/22 09/01/22 Range/Units 08:14 09:40 16:39 RBC (3.80-5.40) m/uL MCV (80.0-100.0) fL Carbon Dioxide (22-30) mmol/L BUN (7-17) mg/dL Creatinine (0.52-1.04) mg/dL Calcium (8.4-10.2) mg/dL Delta Bilirubin (0.0-0.2) mg/dL AST (14-36) U/L Vitamin B12 1259.0 H (200.0-944.0) pg/mL Free T4 0.15 L (0.78-2.19) ng/dL Urine Protein Trace H (Negative) Urine Blood Moderate H (Negative) Ur Leukocyte Esterase Moderate H (Negative) Urine RBC 19 H (0-5) /hpf Urine WBC 6 H (0-5) /hpf Urine Mucus Rare H (None) /hpf 09/02/22 09/02/22 Range/Units 08:00 08:00 RBC 3.69 L (3.80-5.40) m/uL MCV 100.2 H (80.0-100.0) fL Carbon Dioxide 21 L (22-30) mmol/L BUN 33 H (7-17) mg/dL Creatinine 1.57 H (0.52-1.04) mg/dL Calcium 6.9 L (8.4-10.2) mg/dL Delta Bilirubin 1.1 H (0.0-0.2) mg/dL AST 43 H (14-36) U/L Vitamin B12 (200.0-944.0) pg/mL Free T4 (0.78-2.19) ng/dL Urine Protein (Negative) Urine Blood (Negative) Ur Leukocyte Esterase (Negative) Urine RBC (0-5) /hpf Urine WBC (0-5) /hpf Urine Mucus (None) /hpf Microbiology - Last 24 Hours (Table) 09/01/22 09:40 Urine Culture - Preliminary Urine,Clean Catch Assessment and Plan Assessment: Hypothyroidism with TSH more than 100 and low T4 Acute kidney injury Possible acute urinary tract infection Versus asymptomatic bacteriuria Generalized weakness secondary to above bilateral hands and feet numbness, chronic 1 month Abdominal distention secondary to fecal impaction with some area of possible colitis on CAT scan of the abdomen and pelvis Noncompliance with medication and follow-up COPD, not an active issue Nicotine dependence Plan: Continue with normal saline Continue with levothyroxine Start ceftriaxone follow-up urine culture Consult neurology service Surgical team consult Check bladder scan Check Pro-calcitonin. Follow-up urine culture I offered patient to transfer her to a tertiary care center as we don't have scoop driver in this facility, patient declined and she wants to stay here for treatment. Risks and benefits are explained for the patient and she verbalized understanding Labs and medication were reviewed.. Continue same treatment. Continue with symptomatic treatment. Resume home medication. Monitor labs and vitals. DVT and GI prophylaxis. Further recommendations as per clinical course of the patient DVT prophylaxis: Subcutaneous heparin GI Prophylaxis: Pepcid PT/OT: Pending Prognosis is guarded
--- NOTE | 2022-09-02 11:26 | P.GSCN ---
History of Present Illness Consult date: 09/02/22 History of present illness: CHIEF COMPLAINT: Weakness HISTORY OF PRESENT ILLNESS: This is a 62-year-old female who presented to the hospital with complaints of weakness and unable to walk with numbness in legs. She is being evaluated by neurology service. Patient's abdomen is distended. She did report having pain every once in a while. She did have a bowel movement after 3 enemas in the ER yesterday. History obtained from nurse reports about 2 weeks since her last bowel movement. Patient is a poor historian. Computed tomography scan abdomen and pelvis shows marked amount of stool seen throughout the colon particularly the sigmoid colon and descending colon. Fecal disimpaction recommended as her signs of stercoral colitis with wall thickening of the rectum. Patient also is having evidence of urinary retention. She's been straight cath twice. Patient does report having an episode of vomiting. Denies any fever chills or sweats. PAST MEDICAL HISTORY: Osteoarthritis PAST SURGICAL HISTORY: none MEDICATIONS: See below ALLERGIES: See below SOCIAL HISTORY: No illicit drug use. REVIEW OF SYSTEMS: CONSTITUTIONAL: Denies fever or chills. HEENT: Denies blurred vision, vision changes, or eye pain. Denies hemoptysis CARDIOVASCULAR: Denies chest pain or pressure. RESPIRATORY: No shortness of breath. GASTROINTESTINAL: See HPI for pertinent findings HEMATOLOGIC: Denies bleeding disorders. GENITOURINARY: Denies any blood in urine or increased urinary frequency. SKIN: Denies pruitis. Denies rash. PHYSICAL EXAM: VITAL SIGNS: Reviewed GENERAL: Well-developed in no acute distress. HEENT: No sclera icterus. Extraocular movements grossly intact. Moist buccal mucosa. Head is atraumatic, normocephalic. No nasal drainage. ABDOMEN: distended. nontender NEUROLOGIC: Alert and oriented. Cranial nerves II through XII grossly intact. LABORATORY DATA: WBC 11.3 down to 7.2 Hgb 14.112.3 platelets 107 sodium is 137 potassium is 4.2 creatinine 1.57 lactic acid 1.1 AST 43 ALT 16 alk phos 72 TSH greater than 100,000 and free T4 0.15 Urinalysis positive for UTI IMAGING: Computed tomography scan abdomen and pelvis marked amount of stool seen throughout the colon particularly the sigmoid colon and descending colon. Fecal disimpaction recommended as there are signs of stercoral colitis with wall thickening of the rectum. Cholelithiasis. Mild bilateral hydronephrosis likely secondary to mass effect from large stool pertinent. Computed tomography scan brain no acute intra-cranial process. Indeterminate likely remote lacunar injuries within the thumb along with nonspecific white matter changes but secondary to chronic microangiopathy KUB x-ray overall nonspecific but they were nonobstructive bowel gas pattern. Severe distal colonic fecal stasis suspected. ASSESSMENT: 1. Fecal impaction with evidence of stercoral colitis with wall thickening of the rectum 2. Urinary retention 3. Incidental finding of gallstones on CAT scan 4. Weakness and gait instability with numbness of the extremities. Being evaluated by neurology PLAN: -Patient scheduled for sigmoidoscopy with disimpaction today with Dr. Worthington -Keep patient nothing by mouth -Continue supportive care Thank you for this consultation Physician Building Wrecker note has been reviewed by physician. Signing provider agrees with the documented findings, assessment, and plan of care. Past Medical History Past Medical History: Osteoarthritis (OA) History of Any Multi-Drug Resistant Organisms: None Reported Past Surgical History: No Surgical Hx Reported Past Psychological History: No Psychological Hx Reported Smoking Status: Current every day smoker Past Alcohol Use History: None Reported Past Drug Use History: None Reported - Past Family History Mother History Unknown: Yes Medications and Allergies Home Medications Medication Instructions Recorded Confirmed Type No Known Home Medications 09/01/22 09/01/22 History Allergies Allergy/AdvReac Type Severity Reaction Status Date / Time No Known Allergies Allergy Verified 09/01/22 09:50 Surgical - Exam Vital Signs Temp Pulse Resp BP Pulse Ox 97.6 F 58 L 18 112/81 98 09/01/22 07:48 09/01/22 07:48 09/01/22 07:48 09/01/22 07:48 09/01/22 07:48 Results - Labs 09/02/22 08:00 09/02/22 08:00 Abnormal Lab Results - Last 24 Hours (Table) 09/01/22 09/01/22 09/01/22 Range/Units 08:14 09:40 16:39 RBC (3.80-5.40) m/uL MCV (80.0-100.0) fL Carbon Dioxide (22-30) mmol/L BUN (7-17) mg/dL Creatinine (0.52-1.04) mg/dL Calcium (8.4-10.2) mg/dL Delta Bilirubin (0.0-0.2) mg/dL AST (14-36) U/L Vitamin B12 1259.0 H (200.0-944.0) pg/mL Free T4 0.15 L (0.78-2.19) ng/dL Urine Protein Trace H (Negative) Urine Blood Moderate H (Negative) Ur Leukocyte Esterase Moderate H (Negative) Urine RBC 19 H (0-5) /hpf Urine WBC 6 H (0-5) /hpf Urine Mucus Rare H (None) /hpf 09/02/22 09/02/22 Range/Units 08:00 08:00 RBC 3.69 L (3.80-5.40) m/uL MCV 100.2 H (80.0-100.0) fL Carbon Dioxide 21 L (22-30) mmol/L BUN 33 H (7-17) mg/dL Creatinine 1.57 H (0.52-1.04) mg/dL Calcium 6.9 L (8.4-10.2) mg/dL Delta Bilirubin 1.1 H (0.0-0.2) mg/dL AST 43 H (14-36) U/L Vitamin B12 (200.0-944.0) pg/mL Free T4 (0.78-2.19) ng/dL Urine Protein (Negative) Urine Blood (Negative) Ur Leukocyte Esterase (Negative) Urine RBC (0-5) /hpf Urine WBC (0-5) /hpf Urine Mucus (None) /hpf Microbiology - Last 24 Hours (Table) 09/01/22 09:40 Urine Culture - Preliminary Urine,Clean Catch Diabetes panel 09/01/22 09/02/22 Range/Units 16:39 08:00 Sodium 137 (137-145) mmol/L Potassium 4.2 (3.5-5.1) mmol/L Chloride 107 (98-107) mmol/L Carbon Dioxide 21 L (22-30) mmol/L BUN 33 H (7-17) mg/dL Creatinine 1.57 H (0.52-1.04) mg/dL Glucose 81 (74-99) mg/dL Hemoglobin A1c 5.8 (0.0-6.0) % Calcium 6.9 L (8.4-10.2) mg/dL AST 43 H (14-36) U/L ALT 16 (4-34) U/L Alkaline Phosphatase 72 (38-126) U/L Total Protein 6.3 (6.3-8.2) g/dL Albumin 3.8 (3.5-5.0) g/dL Calcium panel 09/02/22 Range/Units 08:00 Calcium 6.9 L (8.4-10.2) mg/dL Albumin 3.8 (3.5-5.0) g/dL Pituitary panel 09/02/22 Range/Units 08:00 Sodium 137 (137-145) mmol/L Potassium 4.2 (3.5-5.1) mmol/L Chloride 107 (98-107) mmol/L Carbon Dioxide 21 L (22-30) mmol/L BUN 33 H (7-17) mg/dL Creatinine 1.57 H (0.52-1.04) mg/dL Glucose 81 (74-99) mg/dL Calcium 6.9 L (8.4-10.2) mg/dL Adrenal panel 09/02/22 Range/Units 08:00 Sodium 137 (137-145) mmol/L Potassium 4.2 (3.5-5.1) mmol/L Chloride 107 (98-107) mmol/L Carbon Dioxide 21 L (22-30) mmol/L BUN 33 H (7-17) mg/dL Creatinine 1.57 H (0.52-1.04) mg/dL Glucose 81 (74-99) mg/dL Calcium 6.9 L (8.4-10.2) mg/dL Total Bilirubin 1.1 (0.2-1.3) mg/dL AST 43 H (14-36) U/L ALT 16 (4-34) U/L Alkaline Phosphatase 72 (38-126) U/L Total Protein 6.3 (6.3-8.2) g/dL Albumin 3.8 (3.5-5.0) g/dL
[2022-09-02] MEDS ORDERED: PEG 3350 (236 GM/BTL) + LYTES 4,000 ML BOTTLE PO ONE (13:47)
[2022-09-02] MEDS ORDERED: ONDANSETRON 4 MG/2 ML VIAL IVP PRN (13:49)
[2022-09-02 14:56] LABS: Platelet Count 83 k/uL (150-450)
--- NOTE | 2022-09-02 18:20 | MR ---
EXAMINATION TYPE: MR cervical spine wo/w con DATE OF EXAM: 09/02/2022 INDICATION: Patient age:Female; 62 years old; Reason for study: Numbness, weakness, TM; PHH. Numbness, weakness, TM. COMPARISON: None. TECHNIQUE: Multi planar, multi sequence imaging was performed utilizing: T1-weighted, T2-weighted, an d turbo inversion recovery imaging of the cervical spine. IV Contrast: 8 cc Gadavist FINDINGS: Motion limits evaluation. Alignment: The cervical vertebral bodies have preserved heights. Alignment is straightened. Bones: Increased inversion recovery signal seen within the C3 and C4 vertebral bodies. Multilevel deg enerative disc disease is noted and most pronounced at the C3-C4 and C5-C6 vertebral levels with oste ophyte formation present. No abnormal postcontrast enhancement. Cord: Increased signal seen at the level of C3-C4 within the spinal cord. Axial imaging is limited du e to motion. No abnormal postcontrast enhancement Discs: Multilevel disc desiccation is present. C2-C3: No significant disc pathology. The spinal canal is patent. No neural foraminal stenosis. C3-C4: A disc osteophyte complex is present with severe spinal canal stenosis. Bilateral facet and u ncovertebral joint arthropathy are present with mild bilateral neural foraminal stenosis. C4-C5: A disc osteophyte complex is present with moderate spinal canal stenosis. Bilateral facet and uncovertebral joint arthropathy are present with moderate left neural foraminal stenosis. The right neural foramen is patent. C5-C6: A disc osteophyte complex is present with mild spinal canal stenosis. Bilateral facet and unc overtebral joint arthropathy are present with mild bilateral neural foraminal stenosis. C6-C7: A disc osteophyte complex is present with mild spinal canal stenosis. Bilateral facet and unc overtebral joint arthropathy are present with moderate bilateral neural foraminal stenosis. C7-T1: No significant disc pathology. The spinal canal is patent. Bilateral facet and uncovertebral joint arthropathy are present with moderate bilateral neural foraminal stenosis. IMPRESSION: Motion limited exam with severe spinal canal stenosis at C3-C4 with myelomalacia. Additional multilev el neural foraminal stenosis present selectively evaluated due to motion.
[2022-09-02] MEDS: FAMOTIDINE 20 MG/2 ML VIAL IV SCH (20:38)
[2022-09-02 21:41] LABS: Immunoglobulin M 87.4 mg/dL (40.0-280.0)
[2022-09-03] MEDS: ACETAMINOPHEN TAB 325 MG TAB PO PRN ×2 (02:01→16:43)
[2022-09-03 05:15] LABS: Methylmalonic Acid 0.44 umol/L (<0.40)
[2022-09-03] MEDS: LEVOTHYROXINE 75 MCG TAB PO SCH (05:29)
[2022-09-03] MEDS: HEPARIN SODIUM,PORCINE/PF 5,000 UNIT/0.5 ML SYRINGE SQ SCH ×2 (08:52→21:43)
[2022-09-03] MEDS: DOCUSATE 100 MG CAP PO SCH ×2 (08:52→21:43)
[2022-09-03] MEDS: DEXTROSE 5%-0.9% NACL 1,000 ML IV SCH ×2 (10:37→11:37)
[2022-09-03 11:02] LABS: Potassium 3.5 mmol/L (3.5-5.1)
[2022-09-03 11:04] LABS: Calcium 6.3 mg/dL (8.4-10.2)
[2022-09-03] MEDS ORDERED: CALCIUM GLUCONATE IN NACL 1 GM in SALINE 1 100ML.BAG IVPB ONE (11:12)
[2022-09-03 11:14] LABS: Basophils % (A) 0 %; Eosinophils # (A) 0.2 k/uL (0-0.7); Eosinophils % (A) 4 %; HCT 35.1 % (34.0-46.0); HGB 11.8 gm/dL (11.4-16.0); Lymphocytes # (A) 0.8 k/uL (1.0-4.8); Lymphocytes % (A) 13 %; MCH 33.8 pg (25.0-35.0); MCHC 33.6 g/dL (31.0-37.0); MCV 100.6 fL (80.0-100.0); Macrocytosis Slight; Mean Platelet Volume 10.1; Monocytes # (A) 0.3 k/uL (0-1.0); Monocytes % (A) 5 %; Neutrophils # (A) 4.6 k/uL (1.3-7.7); Neutrophils % (A) 77 %; RBC 3.49 m/uL (3.80-5.40)
--- NOTE | 2022-09-03 11:14 | P.PN ---
Subjective Progress Note Date: 09/02/22 Patient was seen for a follow-up. Patient denies any changes in her condition. Patient is laying comfortably in the bed. Objective - Vital Signs Vital signs: Vital Signs Temp 98.4 F 09/02/22 08:34 Pulse 54 L 09/02/22 08:34 Resp 16 09/02/22 08:34 BP 115/72 09/02/22 08:34 Pulse Ox 97 09/02/22 08:34 FiO2 Intake & Output 09/01/22 09/02/22 09/02/22 18:59 06:59 18:59 Output Total 440 1150 Balance -440 -1150 Weight 79.379 kg Output: Urine 1150 Straight 1150 Post Void Residual 440 Other: # Voids 0 # Bowel Movements 1 - Exam Examination remains unchanged. - Labs CBC & Chem 7: 09/02/22 08:00 09/02/22 08:00 Labs: Abnormal Lab Results - Last 24 Hours (Table) 09/01/22 09/01/22 09/02/22 Range/Units 08:14 16:39 08:00 RBC 3.69 L (3.80-5.40) m/uL MCV 100.2 H (80.0-100.0) fL Carbon Dioxide (22-30) mmol/L BUN (7-17) mg/dL Creatinine (0.52-1.04) mg/dL Calcium (8.4-10.2) mg/dL Delta Bilirubin (0.0-0.2) mg/dL AST (14-36) U/L Vitamin B12 1259.0 H (200.0-944.0) pg/mL Free T4 0.15 L (0.78-2.19) ng/dL 09/02/22 Range/Units 08:00 RBC (3.80-5.40) m/uL MCV (80.0-100.0) fL Carbon Dioxide 21 L (22-30) mmol/L BUN 33 H (7-17) mg/dL Creatinine 1.57 H (0.52-1.04) mg/dL Calcium 6.9 L (8.4-10.2) mg/dL Delta Bilirubin 1.1 H (0.0-0.2) mg/dL AST 43 H (14-36) U/L Vitamin B12 (200.0-944.0) pg/mL Free T4 (0.78-2.19) ng/dL Microbiology - Last 24 Hours (Table) 09/01/22 09:40 Urine Culture - Preliminary Urine,Clean Catch Assessment and Plan Assessment: * 62-year-old female with progressive numbness and tingling of the lower and upper extremities, with ataxia and gait imbalance. Rule out B12, folate deficiency or some other nutritional deficiency. Guillain-Alexander syndrome unlikely because of preserved reflexes. * Abdominal distention, unclear etiology. * Hypothyroidism, severe, untreated. * Tobacco use Plan: * CT of abdomen and pelvis revealed mild amount of stool seen throughout the colon particularly the sigmoid colon and descending colon. Fecal disimpaction recommended, as there are signs of sterco-colitis with wall thickening of the rectum. * CT head revealed no acute process. Indeterminate likely remote lacunar injuries within the thalami along with nonspecific white matter changes likely secondary to chronic microangiopathy. I personally reviewed CT head, appears to have mild bilateral basal ganglionic and cerebellar calcifications. No acute process. * Blood test shows ESR 18, CRP 0.9, hemoglobin A1c 5.8, B12 1259, methylmalonic acid is elevated 0.44, folate 17.6. TSH is > 100.0, with free T4 decrease 0.15. Start B12 injection because of elevated methylmalonic acid. * Check MRI of the cervical spine rule out spinal stenosis. * Also check Sjogren's antibodies, quantitative immunoglobulins, immunofixation electrophoresis.
[2022-09-03 11:20] LABS: Platelet Count 82 k/uL (150-450)
[2022-09-03] MEDS ORDERED: PROPOFOL 10 MG/ML 20 ML VIAL IV ONE (13:01)
[2022-09-03] MEDS ORDERED: ePHEDrine 50 MG/ML 1 ML VIAL ONE (13:01)
[2022-09-03] MEDS ORDERED: IV FLUID CONTINUATION 1,000 ML IV ONE (13:08)
--- NOTE | 2022-09-03 13:10 | P.OP ---
Date of Procedure: 09/03/22 Preoperative Diagnosis: Fecal impaction Postoperative Diagnosis: Fecal impaction Procedure(s) Performed: Fecal disimpaction Anesthesia: MAC Surgeon: Jj Worthington Pathology: none sent Condition: stable Disposition: PACU Description of Procedure: The patient's placed on the endoscopy table in the lateral position her she received IV sedation. Digital rectal exam was performed. There was a large amount of liquid soft stool in the rectum. Some stool in the rectal vault. The scope was very soft. Patient top procedure well. The patient will continue receive soapsuds enema and bowel prep to help with her fecal impaction.
--- NOTE | 2022-09-03 13:19 | P.PN ---
Subjective This is a pleasant 62 years old female with past medical history of osteoarthritis, Patient presents because of increased weakness, numbness in her hands and feet Patient states that she feels weak for 4 months, however since yesterday she said she cannot walk because of her weakness, at baseline she uses a walker. She lives in apartment with her boyfriend. Also she reports chronic numbness in her hand and feet for about a month. She denies any other numbness, no blurred vision or slurred speech. No dizziness. She denies chest pain or dyspnea. However she states that she has headache about 5/10 of one day duration, but also she reports chronic pain in her neck. She denies chest pain or dyspnea, she had normal bowel movement no vomiting no abdominal pain or tenderness however her abdomen looks significantly distended. She smokes about half pack per day, she was counseled to quit she declines also she does not want nicotine patch. No alcohol or illicit drug. She says that she supposed to be on thyroid hormone replacement therapy but she stopped taking it for 1.5 years ago because she thought she does not needed. She states that she supposed to be on vitamin D, acid reflux disease and inhaler as she has history of COPD Vitas looks stable, patient is afebrile she is not hypothermic. Labs showing mild leukocytosis of 11.3. Rest of CBC, INR is unremarkable Creatinine is trending up 1.5, it was 1.2 about 10 days ago. Trace of BMP and liver enzymes were unremarkable. TSH is more than 100, free T4 is less than 0.15 EKG showing sinus rhythm with short NE interval, T waves in the lateral limits. No significant ST-T changes Abdominal x-ray/KUB: Overall nonspecific but favor nonobstructive bowel gas pattern. Severe distal colonic fecal stasis is suspected. Chest x-ray: Cardiomegaly without acute pulmonary process serum cortisol is 14 in the emergency room patient received 1 dose of Cortef 100 mg as well as IV levothyroxine. Also she was started on normal saline 100 mL per hour. 09/02/2022 She's awake alert, she still feels generally weak. No chest pain or dyspnea. She denies specific urinary symptoms or abdominal pain or tenderness Patient with chronic bilateral feet and hand numbness. She still complaining from neck pain about 5/10 and states that's from her spine, neurologist on the case and patient may benefit from further testing of the cervical spine. She is hemodynamically stable and only mildly bradycardic secondary to thyroid hormone. CBC is unremarkable and received back to normal. Creatinine 1.5 but she did not receive much fluids last night, we will keep normal saline at 75 mL/h. Neurologist on the case. She remains on ceftriaxone for possible UTI and/or colitis. 09/03/2022 I discussed the case with the neurologist office today, patient MRI of the cervical spine showing severe spinal stenosis C3-C4, orthopedic surgery has been consulted and patient is started on Solu-Medrol 60 mg twice daily, and further recommendation to be followed by surgery team. Patient still complains from weakness in all 4 extremities with numbness in both hands and feet. This might contribute to the patient falling at home. Also patient underwent fecal disimpaction under surgical anesthesia today. She will continue getting the edema. This morning her abdomen was still distended and hopefully this will help her much. Patient urine culture came back negative. The patient finished her treatment for UTI and he can stop the antibiotics ceftriaxone Also her creatinine is stable at 1.5-1.6, looks like patient has chronic kidney disease stage III rather than acute kidney injury. Her levothyroxine is currently she is receiving 75 g daily. We'll keep the patient on IV fluid D5 normal saline as she still nothing by mouth Objective - Vital Signs Vital signs: Vital Signs Temp 98.9 F 09/03/22 12:02 Pulse 57 L 09/03/22 12:02 Resp 16 09/03/22 12:02 BP 108/62 09/03/22 12:02 Pulse Ox 99 09/03/22 12:02 FiO2 Intake & Output 09/02/22 09/03/22 09/03/22 18:59 06:59 18:59 Intake Total 150 10 0 Output Total 600 400 375 Balance -450 -390 -375 Intake: IV 10 Invasive Line 2 10 Intake, IV Titration 150 Amount Dextrose 5%-0.9% NaCl 1, 150 000 ml @ 75 mls/hr IV . [id number] [facility] Rx#:[id number] Oral 0 Output: Urine 600 400 375 Other: Voiding Method Indwelling Catheter Indwelling Catheter Indwelling Catheter # Bowel Movements 1 - Exam -GENERAL: The patient is alert and oriented x3, not in any acute distress. Well developed, well nourished. Generally weak HEENT: Pupils are round and equally reacting to light. EOMI. No scleral icterus. No conjunctival pallor. Normocephalic, atraumatic. No pharyngeal erythema. No thyromegaly. CARDIOVASCULAR: S1 and S2 present. No murmurs, rubs, or gallops. PULMONARY: Chest is clear to auscultation, no wheezing or crackles. -ABDOMEN: Soft, nontender, distended, normoactive bowel sounds. No palpable organomegaly. MUSCULOSKELETAL: No joint swelling or deformity. EXTREMITIES: No cyanosis, clubbing, or pedal edema. NEUROLOGICAL: Gross neurological examination did not reveal any focal deficits. SKIN: No rashes. no petechiae. - Labs CBC & Chem 7: 09/03/22 09:25 09/03/22 09:25 Labs: Abnormal Lab Results - Last 24 Hours (Table) 09/01/22 09/02/22 09/02/22 Range/Units 16:39 08:00 12:51 RBC (3.80-5.40) m/uL MCV (80.0-100.0) fL Plt Count 83 L (150-450) k/uL Lymphocytes # 0.9 L (1.0-4.8) k/uL Chloride (98-107) mmol/L BUN (7-17) mg/dL Creatinine (0.52-1.04) mg/dL Glucose (74-99) mg/dL Calcium (8.4-10.2) mg/dL Methylmalonic Acid 0.44 H (<0.40) umol/L SS-B Ab Interp POSITIVE A (NEGATIVE) 09/03/22 09/03/22 Range/Units 09:25 09:25 RBC 3.49 L (3.80-5.40) m/uL MCV 100.6 H (80.0-100.0) fL Plt Count 82 L (150-450) k/uL Lymphocytes # 0.8 L (1.0-4.8) k/uL Chloride 108 H (98-107) mmol/L BUN 30 H (7-17) mg/dL Creatinine 1.62 H (0.52-1.04) mg/dL Glucose 72 L (74-99) mg/dL Calcium 6.3 L* (8.4-10.2) mg/dL Methylmalonic Acid (<0.40) umol/L SS-B Ab Interp (NEGATIVE) Microbiology - Last 24 Hours (Table) 09/01/22 09:40 Urine Culture - Final Urine,Clean Catch Assessment and Plan Assessment: Hypothyroidism with TSH more than 100 and low T4 Chronic kidney disease stage III rather than Acute kidney injury Possible acute urinary tract infection Versus asymptomatic bacteriuria . Finished treatment with antibiotic which is stopped. Severe C3-C4 spinal stenosis with myelomalacia Culture is negative Generalized weakness secondary to above bilateral hands and feet numbness, chronic 1 month Abdominal distention secondary to fecal impaction with some area of possible colitis on CAT scan of the abdomen and pelvis Noncompliance with medication and follow-up COPD, not an active issue Nicotine dependence Plan: Continue with normal saline Continue with levothyroxine Discontinue antibiotic Continue with steroids and follow-up orthopedic hand and neurology team consults regarding her spinal stenosis Surgical team consult, patient status post disimpaction I offered patient to transfer her to a tertiary care center as we don't have professional development director in this facility, patient declined and she wants to stay here for treatment. Risks and benefits are explained for the patient and she verbalized understanding Labs and medication were reviewed.. Continue same treatment. Continue with symptomatic treatment. Resume home medication. Monitor labs and vitals. DVT and GI prophylaxis. Further recommendations as per clinical course of the patient DVT prophylaxis: Subcutaneous heparin GI Prophylaxis: Pepcid PT/OT: Pending Prognosis is guarded
[2022-09-03] MEDS ORDERED: PEG 3350 (236 GM/BTL) + LYTES 4,000 ML BOTTLE PO ONE (13:30)
[2022-09-03] MEDS: CALCIUM CARB-VIT D 500 MG-5 MCG TAB PO SCH ×2 (13:41→17:46)
[2022-09-03] MEDS: methylPREDNISolone SOD SUCCI 125 MG/2 ML VIAL IV SCH ×2 (13:41→21:43)
--- NOTE | 2022-09-03 16:18 | P.CNOR ---
History of Present Illness - [facility] Consult date: 09/03/22 Consult reason: other (Generalized weakness worse in the arms than legs) History of present illness: The patient is seen and examined at bedside. She is a pleasant 62-year-old female who we're asked to see him regards to cervical myelopathy with upper and lower extremity weakness. The patient is cooperative and conversant but she is not a strong historian. She is unsure of specifics in terms of how her symptoms have been worsening or when they began. She says that she normally walks with a walker over the past several months. She says she did not have to walk with a walker this past summer and only started using a walker this fall. She says she has not had any recent falls but had been having weakness and which has been worsening over the past couple of months. She is not sure of any specific inc ident or trauma. She says that she has been having weakness in her hands and her feet. She feels that her hands are worse than her feet because she keeps dropping things and feels weak. However she also feels significant changes in her legs that went on hold her up well and she feel shaky when she tries to walk because she feels her legs are weak. She denies any chest pain or shortness of breath. She had some constipation for which she had fecal disimpaction with surgery today She denies any prior injury to her neck or her arms. She feels her arms are equal in terms of the weakness. She feels her arms seem worse than her legs and her legs feel equally weak. She lives at home with her boyfriend. She says she does not drive or do any medial preparation. She is able to usually get herself dressed and shower on her own but she has been having difficulty with this as well. She's long smoking history and history of COPD Review of Systems As stated per HPI. She denies any chest pain shortness breath. Denies any injury to her neck or back. She says that she does have soreness at her neck but her main issue is the weakness and difficulty using her upper extremities and lower extremities more so her arms and her legs. She feels that difficulty is equal in both her arms. She is unable to walk without a walker. She just started using a walker this past fall Past Medical History Past Medical History: COPD, Osteoarthritis (OA), Thyroid Disorder History of Any Multi-Drug Resistant Organisms: None Reported Past Surgical History: No Surgical Hx Reported Past Psychological History: No Psychological Hx Reported Smoking Status: Current every day smoker Past Alcohol Use History: None Reported Past Drug Use History: None Reported - Past Family History Mother History Unknown: Yes Medications and Allergies Home Medications Medication Instructions Recorded Confirmed Type No Known Home Medications 09/01/22 09/01/22 History Allergies Allergy/AdvReac Type Severity Reaction Status Date / Time No Known Allergies Allergy Verified 09/01/22 09:50 Physical Examination Osteopathic Statement: *. No significant issues noted on an osteopathic structural exam other than those noted in the History and Physical/Consult. - C Spine: dermatomal strength & reflexes bilateral Shoulder strength: flexion: 4/5 (She has global weakness at her upper extremities and lower extremities about 4 out of 5 strength of biceps triceps g rip and abduction bilaterally. She has positive Graham's sign bilaterally. She has 3 over 4 deep tendon reflexes globally. Her lower extremity is have 4 out of 5 strength with iveth) Shoulder strength: extension: 4/5 (Her lower extremities have 4-5 global strength dorsal flexion plantarflexion. Flexion and extension. Parkinson are soft throughout. Her neck is nontender to palpation but she has positive Spurling sign) Results - Labs Labs: Abnormal Lab Results - Last 24 Hours (Table) 09/01/22 09/01/22 09/02/22 Range/Units 16:39 16:39 12:51 RBC (3.80-5.40) m/uL MCV (80.0-100.0) fL Plt Count (150-450) k/uL Lymphocytes # (1.0-4.8) k/uL Chloride (98-107) mmol/L BUN (7-17) mg/dL Creatinine (0.52-1.04) mg/dL Glucose (74-99) mg/dL Calcium (8.4-10.2) mg/dL Vitamin B6 2 L (5-50) ug/L Methylmalonic Acid 0.44 H (<0.40) umol/L SS-B Ab Interp POSITIVE A (NEGATIVE) 09/03/22 09/03/22 Range/Units 09:25 09:25 RBC 3.49 L (3.80-5.40) m/uL MCV 100.6 H (80.0-100.0) fL Plt Count 82 L (150-450) k/uL Lymphocytes # 0.8 L (1.0-4.8) k/uL Chloride 108 H (98-107) mmol/L BUN 30 H (7-17) mg/dL Creatinine 1.62 H (0.52-1.04) mg/dL Glucose 72 L (74-99) mg/dL Calcium 6.3 L* (8.4-10.2) mg/dL Vitamin B6 (5-50) ug/L Methylmalonic Acid (<0.40) umol/L SS-B Ab Interp (NEGATIVE) Microbiology - Last 24 Hours (Table) 09/01/22 09:40 Urine Culture - Final Urine,Clean Catch H & H 09/01/22 09/02/22 09/03/22 Range/Units 08:14 08:00 09:25 Hgb 14.1 12.3 11.8 (11.4-16.0) gm/dL Hct 40.4 37.0 35.1 (34.0-46.0) % Coagulation 09/01/22 Range/Units 08:14 INR 1.0 (<1.2) Result Diagrams: 09/03/22 09:25 09/03/22 09:25 - Diagnostic results Cervical MRI with contrast: report reviewed (At C56 and C6 7 there is some disc height loss with effacement anterior thecal sac. ), image reviewed (Cervical MRI imaging and report is reviewed. She has severe stenosis at C3 4 with evidence of spinal cord signal change behind C3 4. There is disc herniation with stenosis and cord distortion of the left at C4 5. At C5 6 and C6 7 there is diffuse disc bulging with effacement of the anterior theca) Assessment and Plan Assessment: Cervical myelopathy with myelomalacia behind C3 4 Severe cervical stenosis C3 4 with disc herniation and stenosis C4 5 Moderate cervical stenosis C 5 6 and C6 7 with disc degeneration Upper extremity radiculopathy with weakness due in part to cervical myelopathy Lower extremity weakness likely due in part to cervical myelopathy Difficulty ambulating Fecal impaction status post disimpaction with surgery History of hypothyroid Plan: Cervical myelopathy with myelomalacia behind C3 4 Severe cervical stenosis C3 4 with disc herniation and stenosis C4 5 Moderate cervical stenosis C 5 6 and C6 7 with disc degeneration Upper extremity radiculopathy with weakness due in part to cervical myelopathy Lower extremity weakness likely due in part to cervical myelopathy Difficulty ambulating Fecal impaction status post disimpaction with surgery History of hypothyroid The patient presented with global weakness and it has been somewhat difficult to determine the primary source of her issues. It seems that a large portion of her issues with her weakness at her upper extremities and lower extremities stems from the cervical myelopathy with myelomalacia and severe stenosis particular at C3 4 and C4 5. I think that she is myelopathic and this has been present over the past several months. She has been getting treatment for other medical issues and has been having carol ropriate workup. Many of her symptoms correlate well with the presence of cervical myelopathy and I think that she is a candidate for surgery. I discussed with her the possibility of surgical intervention in the form of anterior cervical decompression and fusion likely at C3 4 and C4 5. I think that surgery would help hold the myelopathy and give her potential for improvement in terms of her overall weakness and function. We started her on IV steroid medication to see if this can help alleviate some of her symptoms. She would like to see if the medicine make some difference in terms of her symptoms. I think that ultimately she would have benefit with cervical decompression and fusion but she is not ready today to make that decision for surgery. We will follow her closely and further discuss surgical intervention so that she can determine if she would like to proceed. It is okay for her to have regular diet today. We will follow her closely and plan for surgery when she is able to make her decision.
[2022-09-03] MEDS: FAMOTIDINE 20 MG/2 ML VIAL IV SCH (21:43)
[2022-09-04] MEDS: CALCIUM CARB-VIT D 500 MG-5 MCG TAB PO SCH ×3 (06:12→15:20)
[2022-09-04] MEDS: LEVOTHYROXINE 75 MCG TAB PO SCH (06:12)
[2022-09-04 08:17] LABS: Potassium 3.1 mmol/L (3.5-5.1)
[2022-09-04 08:24] LABS: Calcium 6.1 mg/dL (8.4-10.2)
[2022-09-04] MEDS: HEPARIN SODIUM,PORCINE/PF 5,000 UNIT/0.5 ML SYRINGE SQ SCH ×2 (08:26→20:13)
[2022-09-04] MEDS: DOCUSATE 100 MG CAP PO SCH ×2 (08:27→20:12)
[2022-09-04] MEDS: methylPREDNISolone SOD SUCCI 125 MG/2 ML VIAL IV SCH ×2 (08:27→20:13)
[2022-09-04] MEDS: DEXTROSE 5%-0.9% NACL 1,000 ML IV SCH (08:32)
[2022-09-04] MEDS ORDERED: CALCIUM GLUCONATE IN NACL 1 GM in SALINE 1 100ML.BAG IVPB ONE (09:00)
--- NOTE | 2022-09-04 09:17 | P.PN ---
Progress Note - Text Progress Note Date: 09/04/22 Orthopedic spine: History of present illness: Patient is a pleasant 62-year-old female who is seen and examined at bedside for follow up evaluation in regards to her cervical spine. She is known have cervical myelopathy with upper extremity lower extremity weakness. She has not noticed significant change in her weakness as compared to yesterday. Since being seen and examined yesterday, she was started on methylprednisolone. She is unsure she has had any improvement of her symptoms since starting his medication. She is not currently complaining of upper extremity radiculopathy. She states she has not been out of bed since having her cervical MRI as she has been afraid of falling. We did discuss she could work with physical therapy to increase her mobility and ambulation. This was discussed with nursing as well. Patient feels she may want to proceed forward with surgical intervention at her cervical spine but she is not 100% sure. She has discussed this treatment modality with her boyfriend. Patient states she was previously diagnosed with cervical stenosis but did not have specific treatment in this regard. She continues to be seen and examined by general surgery. She has had difficulty with fecal impaction. Patient is currently scheduled to continue with soaks enema and bowel prep. Physical exam: Patient is awake, alert, and oriented 3 Vital signs stable Good chest excursion with deep inspiration and expiration Abdomen soft nontender Examination of the cervical spine reveals skin is intact with no abrasions, lacerations, or bruises; no erythema, purulence or signs of infection Full range of motion of the cervical spine with adequate flexion, extension, and bilateral rotation [employer] strength, thumb strength, interosseous strength, biceps strength, triceps strength, and shoulder strength positive sustained bilaterally but generally weaker Upper extremity strength 4/5 bilaterally including biceps, triceps, hot roll inspector, and shoulder abduction bilaterally Hoffmans sign positive upper extremity bilaterally Assessment: Cervical myelopathy Cervical myelomalacia behind C3-4 Severe cervical stenosis C3-4 with disc herniation and stenosis C4-5 Moderate cervical stenosis C5-6 and C6-7 with disc degeneration Upper extremity radiculopathy with weakness due in part to cervical myelopathy Positive Faye's sign bilaterally Lower extremity weakness likely due in part to cervical myelopathy Difficulty ambulating Fecal impaction status post disimpaction with surgery History of hypothyroid Plan: 1. Patient continues to have upper extremity and lower extremity weakness. She has difficulty mobility and has been afraid to ambulate for fear of falling. We did discuss she should plan to work with physical therapy to see if she has any improvement since starting the methylprednisolone. We did discuss she should work with therapy to try to improve her mobility and ambulation. She continues to have upper extremity weakness as well and states she has dropped things out of her hands. She is able to perform active range of motion of bilateral upper extremities independently today but she does seem generally weaker. We did discuss he has significant changes at her cervical spine most significant at C3- 4 and C4-5 with evidence of cervical myelomalacia behind C3-4. She also has stenosis at C4-5. She states she was previously diagnosed with cervical stenosis but did not have specific treatment at that time. She does state at the bedside she would just like for her symptoms to improve. We did discuss in detail given the significant changes at her cervical spine that surgical intervention could provide some improvement of her symptoms but that some of her symptoms from a cervical spine standpoint will most likely remain permanent and will not completely subside. We did discuss given the severity of her stenosis and that surgical intervention to decompress her spinal cord is trying to also prevent further damage to her cord. Patient states she feels she may want to proceed forward with surgical intervention over the next couple days that is not 100% sure. She will continue to discuss this with her boyfriend. She may continue with methylprednisolone to see if she has some improvement of her symptoms. She is encouraged to continue working with physical therapy to try to increase her mobility and ambulation. We did discuss we could plan for surgical intervention is early as this coming 09/06/2022, or 09/07/2022. We will continue to follow the patient closely. 2. Patient will continue to be seen by general surgery for her fecal impaction and will continue with soaks enema and bowel prep per their recommendations 3. Patient will continue to be seen and examined by other medical providers during her admission to the hospital for her other medical diagnoses.
[2022-09-04] MEDS ORDERED: Potassium Replacement Protocol 1 EACH MISC MISCELLANE PRN (09:42)
[2022-09-04] MEDS: LACTULOSE 20 GM/30 ML CUP PO SCH ×5 (11:21→17:20)
--- NOTE | 2022-09-04 12:22 | P.PN ---
Subjective This is a pleasant 62 years old female with past medical history of osteoarthritis, Patient presents because of increased weakness, numbness in her hands and feet Patient states that she feels weak for 4 months, however since yesterday she said she cannot walk because of her weakness, at baseline she uses a walker. She lives in apartment with her boyfriend. Also she reports chronic numbness in her hand and feet for about a month. She denies any other numbness, no blurred vision or slurred speech. No dizziness. She denies chest pain or dyspnea. However she states that she has headache about 5/10 of one day duration, but also she reports chronic pain in her neck. She denies chest pain or dyspnea, she had normal bowel movement no vomiting no abdominal pain or tenderness however her abdomen looks significantly distended. She smokes about half pack per day, she was counseled to quit she declines also she does not want nicotine patch. No alcohol or illicit drug. She says that she supposed to be on thyroid hormone replacement therapy but she stopped taking it for 1.5 years ago because she thought she does not needed. She states that she supposed to be on vitamin D, acid reflux disease and inhaler as she has history of COPD Vitas looks stable, patient is afebrile she is not hypothermic. Labs showing mild leukocytosis of 11.3. Rest of CBC, INR is unremarkable Creatinine is trending up 1.5, it was 1.2 about 10 days ago. Trace of BMP and liver enzymes were unremarkable. TSH is more than 100, free T4 is less than 0.15 EKG showing sinus rhythm with short HI interval, T waves in the lateral limits. No significant ST-T changes Abdominal x-ray/KUB: Overall nonspecific but favor nonobstructive bowel gas pattern. Severe distal colonic fecal stasis is suspected. Chest x-ray: Cardiomegaly without acute pulmonary process serum cortisol is 14 in the emergency room patient received 1 dose of Cortef 100 mg as well as IV levothyroxine. Also she was started on normal saline 100 mL per hour. 09/02/2022 She's awake alert, she still feels generally weak. No chest pain or dyspnea. She denies specific urinary symptoms or abdominal pain or tenderness Patient with chronic bilateral feet and hand numbness. She still complaining from neck pain about 5/10 and states that's from her spine, neurologist on the case and patient may benefit from further testing of the cervical spine. She is hemodynamically stable and only mildly bradycardic secondary to thyroid hormone. CBC is unremarkable and received back to normal. Creatinine 1.5 but she did not receive much fluids last night, we will keep normal saline at 75 mL/h. Neurologist on the case. She remains on ceftriaxone for possible UTI and/or colitis. 09/03/2022 I discussed the case with the neurologist office today, patient MRI of the cervical spine showing severe spinal stenosis C3-C4, orthopedic surgery has been consulted and patient is started on Solu-Medrol 60 mg twice daily, and further recommendation to be followed by surgery team. Patient still complains from weakness in all 4 extremities with numbness in both hands and feet. This might contribute to the patient falling at home. Also patient underwent fecal disimpaction under surgical anesthesia today. She will continue getting the edema. This morning her abdomen was still distended and hopefully this will help her much. Patient urine culture came back negative. The patient finished her treatment for UTI and he can stop the antibiotics ceftriaxone Also her creatinine is stable at 1.5-1.6, looks like patient has chronic kidney disease stage III rather than acute kidney injury. Her levothyroxine is currently she is receiving 75 g daily. We'll keep the patient on IV fluid D5 normal saline as she still nothing by mouth 09/04/2022 Patient today awake alert, denies any new complaint, she still have numbness and weakness in both hands and feet and extremities. She was seen by orthopedic te am and she is currently on IV Solu-Medrol with a plan for possible surgical intervention in 2-3 days for her severe spinal stenosis of C3-C4, I discussed these with the patient and she is aware of this plan and she is agreeable. Because of all of these things and ask for cardiac evaluation for preop management. She is currently on levothyroxine increased to 75 g for his severe hypothyroidism, present on admission, we are going to check the thyroid function test tomorrow. In the meantime she remains also on some gentle hydration Surgical team are following the patient and she was started on lactulose today, she denies abdominal pain and her abdomen is significantly less distended than last 2 days but not completely resolved. Creatinine but at 1.4, low-calorie some replaced, low vitamin D is replaced as well. Patient denies any urinary symptoms Objective - Vital Signs Vital signs: Vital Signs Temp 97.3 F L 09/04/22 08:26 Pulse 60 09/04/22 11:17 Resp 16 09/04/22 11:17 BP 135/70 09/04/22 11:17 Pulse Ox 98 09/04/22 11:17 FiO2 Intake & Output 09/03/22 09/04/22 09/04/22 18:59 06:59 18:59 Intake Total 50 10 Output Total 725 600 Balance -675 -590 Intake: IV 50 10 Invasive Line 2 10 Oral 0 Output: Urine 725 600 Other: Voiding Method Indwelling Catheter Indwelling Catheter Indwelling Catheter # Bowel Movements 2 6 - Exam -GENERAL: The patient is alert and oriented x3, not in any acute distress. Well developed, well nourished. Generally weak HEENT: Pupils are round and equally reacting to light. EOMI. No scleral icterus. No conjunctival pallor. Normocephalic, atraumatic. No pharyngeal erythema. No thyromegaly. CARDIOVASCULAR: S1 and S2 present. No murmurs, rubs, or gallops. PULMONARY: Chest is clear to auscultation, no wheezing or crackles. -ABDOMEN: Soft, nontender, distended, normoactive bowel sounds. No palpable organomegaly. MUSCULOSKELETAL: No joint swelling or deformity. EXTREMITIES: No cyanosis, clubbing, or pedal edema. NEUROLOGICAL: Gross neurological examination did not reveal any focal deficits. SKIN: No rashes. no petechiae. - Labs CBC & Chem 7: 09/03/22 09:25 09/04/22 07:20 Labs: Abnormal Lab Results - Last 24 Hours (Table) 09/01/22 09/03/22 09/04/22 Range/Units 16:39 09:25 07:20 Potassium 3.1 L (3.5-5.1) mmol/L BUN 25 H (7-17) mg/dL Creatinine 1.48 H (0.52-1.04) mg/dL Glucose 130 H (74-99) mg/dL Calcium 6.1 L* (8.4-10.2) mg/dL Vitamin B6 2 L (5-50) ug/L Vitamin D 25-Hydroxy 28.8 L (30.0-100.0) ng/mL Assessment and Plan Assessment: Hypothyroidism with TSH more than 100 and low T4 Chronic kidney disease stage III rather than Acute kidney injury Possible acute urinary tract infection Versus asymptomatic bacteriuria . Finished treatment with antibiotic which is stopped. Severe C3-C4 spinal stenosis with myelomalacia Hypocalcemia and low vitamin D Culture is negative Generalized weakness secondary to above bilateral hands and feet numbness, chronic 1 month Abdominal distention secondary to fecal impaction with some area of possible colitis on CAT scan of the abdomen and pelvis Noncompliance with medication and follow-up COPD, not an active issue Nicotine dependence Plan: Continue with normal saline Continue with levothyroxine Continue to placement of vitamin D and calcium Cardiac preop evaluation for possible surgical intervention for C3-C4 stenosis Continue with steroids and follow-up orthopedic hand and neurology team consults regarding her spinal stenosis Surgical team consult, patient status post disimpaction I offered patient to transfer her to a tertiary care center as we don't have water server in this facility, patient declined and she wants to stay here for treatment. Risks and benefits are explained for the patient and she verbalized understanding Labs and medication were reviewed.. Continue same treatment. Continue with symptomatic treatment. Resume home medication. Monitor labs and vitals. DVT and GI prophylaxis. Further recommendations as per clinical course of the joseph redmond DVT prophylaxis: Subcutaneous heparin GI Prophylaxis: Pepcid PT/OT: Pending Prognosis is guarded
--- NOTE | 2022-09-04 12:35 | P.PN ---
Subjective Progress Note Date: 09/04/22 CHIEF COMPLAINT: Fecal impaction HISTORY OF PRESENT ILLNESS: Patient is status post sigmoidoscopy with fecal disimpaction. Patient did receive soapsuds enemas yesterday with multiple bowel movements. Abdomen remains distended but softer than yesterday. Patient denies any abdominal pain. Denies any nausea or vomiting. Afebrile. Sodium 138 potassium 3.1 creatinine 1.48 calcium 6.1 Patient seen and examined with Dr. coto PHYSICAL EXAM: VITAL SIGNS: Reviewed. GENERAL: Well-developed in no acute distress. HEENT: No sclera icterus. Extraocular movements grossly intact. Moist buccal mucosa. Head is atraumatic, normocephalic. ABDOMEN: Distended. Slightly softer than yesterday. Nontender NEUROLOGIC: Alert and oriented. Cranial nerves II through XII grossly intact. ASSESSMENT: 1. Fecal impaction status post sigmoidoscopy with disimpaction 2. Cervical myelopathy and severe cervical stenosis with disc herniation 3. Hypokalemia 4. Hypocalcemia PLAN: -Continue clear liquid diet -Lactulose 30 mL every hour 5 doses ordered to continue treatment for her constipation -Continue supportive care -Continue to correct electrolytes Physician [employer] note has been reviewed by physician. Signing provider agrees with the documented findings, assessment, and plan of care. Objective - Vital Signs Vital signs: Vital Signs Temp 97.3 F L 09/04/22 08:26 Pulse 60 09/04/22 11:17 Resp 16 09/04/22 11:17 BP 135/70 09/04/22 11:17 Pulse Ox 98 09/04/22 11:17 FiO2 Intake & Output 09/03/22 09/04/22 09/04/22 18:59 06:59 18:59 Intake Total 50 10 Output Total 725 600 Balance -675 -590 Intake: IV 50 10 Invasive Line 2 10 Oral 0 Output: Urine 725 600 Other: Voiding Method Indwelling Catheter Indwelling Catheter Indwelling Catheter # Bowel Movements 2 6 - Labs CBC & Chem 7: 09/03/22 09:25 09/04/22 07:20 Labs: Abnormal Lab Results - Last 24 Hours (Table) 09/01/22 09/03/22 09/04/22 Range/Units 16:39 09:25 07:20 Potassium 3.1 L (3.5-5.1) mmol/L BUN 25 H (7-17) mg/dL Creatinine 1.48 H (0.52-1.04) mg/dL Glucose 130 H (74-99) mg/dL Calcium 6.1 L* (8.4-10.2) mg/dL Vitamin B6 2 L (5-50) ug/L Vitamin D 25-Hydroxy 28.8 L (30.0-100.0) ng/mL
[2022-09-04] MEDS: ACETAMINOPHEN TAB 325 MG TAB PO PRN (15:19)
[2022-09-04] MEDS: FAMOTIDINE 20 MG/2 ML VIAL IV SCH (20:13)
--- NOTE | 2022-09-04 21:57 | CONS ---
CONSULTATION CHIEF COMPLAINT: Preop cardiac evaluation. HISTORY OF PRESENT ILLNESS: This is a 62-year-old lady who needs to undergo cervical spine surgery and we have been consulted for preop cardiac evaluation. The patient has symptoms suggestive of cervical myelopathy with upper and lower extremity weakness. Her workup showed severe cervical stenosis with disk herniation. She is to undergo anterior cervical decompression. There is no prior cardiac history. No history of coronary artery disease or congestive heart failure. EKG showed sinus rhythm with nonspecific ST-T wave changes. There is no prior history of coronary artery disease or congestive heart failure. MEDICATIONS: None. ALLERGIES: None. FAMILY HISTORY: Negative for premature coronary artery disease. SOCIAL HISTORY: Negative for current smoking, EtOH abuse, or drug abuse. REVIEW OF SYSTEMS: A review of systems has been performed, pertinent's are as documented. PHYSICAL EXAMINATION: VITAL SIGNS: Afebrile. Heart rate is 60 beats per minute, blood pressure is 135/72, respiratory rate 16, O2 saturation is 98% on room air. NECK: There is no jugular venous distention. Carotid upstroke is normal. There is no bruit. CHEST: Reveals good air entry bilaterally. HEART: Reveals first and second heart sounds. No gallop. No murmur. ABDOMEN: Soft. EXTREMITIES: Did not reveal any edema. Peripheral pulses are felt. LABORATORY DATA: Labs show that the BUN is 25, creatinine is 1.4. Potassium is 3.1. Hemoglobin is 11.8. ASSESSMENT: 1. Preop cardiac evaluation. 2. Cervical cord compression. PLAN: I do not see any contraindications for surgery under anesthesia. The patient does not have evidence of aortic stenosis on physical exam. She does not have symptoms of heart failure and does not have angina. EKG shows nonspecific ST-T wave changes. I will obtain a 2D echo. MMODL / IJN: [id number] /
[2022-09-05] MEDS: DEXTROSE 5%-0.9% NACL 1,000 ML IV SCH ×2 (03:45→17:30)
[2022-09-05] MEDS: LEVOTHYROXINE 75 MCG TAB PO SCH (06:44)
[2022-09-05] MEDS: CALCIUM CARB-VIT D 500 MG-5 MCG TAB PO SCH ×3 (06:44→17:29)
[2022-09-05] MEDS: DOCUSATE 100 MG CAP PO SCH ×2 (09:09→20:07)
[2022-09-05] MEDS: methylPREDNISolone SOD SUCCI 125 MG/2 ML VIAL IV SCH ×2 (09:09→20:08)
[2022-09-05] MEDS: HEPARIN SODIUM,PORCINE/PF 5,000 UNIT/0.5 ML SYRINGE SQ SCH ×2 (09:09→20:07)
[2022-09-05 10:52] LABS: HCT 36.2 % (34.0-46.0); HGB 12.3 gm/dL (11.4-16.0); MCH 34.1 pg (25.0-35.0); MCV 100.3 fL (80.0-100.0); Macrocytosis Slight; Mean Platelet Volume 10.2; Platelet Count 104 k/uL (150-450); RBC 3.61 m/uL (3.80-5.40); RDW 14.5 % (11.5-15.5); WBC 8.7 k/uL (3.8-10.6)
[2022-09-05 10:54] LABS: Albumin 3.5 g/dL (3.5-5.0); Calcium 6.5 mg/dL (8.4-10.2); Magnesium 1.8 mg/dL (1.6-2.3); Potassium 3.4 mmol/L (3.5-5.1); Total Bilirubin 0.6 mg/dL (0.2-1.3); Total Protein 6.1 g/dL (6.3-8.2)
[2022-09-05] MEDS: ACETAMINOPHEN TAB 325 MG TAB PO PRN (11:35)
--- NOTE | 2022-09-05 12:33 | P.PN ---
Subjective Progress Note Date: 09/05/22 She is having bowel movements. Tolerating diet. No moderate abdominal pain. Objective - Vital Signs Vital signs: Vital Signs Temp 97.9 F 09/05/22 09:10 Pulse 66 09/05/22 11:35 Resp 17 09/05/22 11:35 BP 148/83 09/05/22 11:35 Pulse Ox 96 09/05/22 11:35 FiO2 Intake & Output 09/04/22 09/05/22 09/05/22 18:59 06:59 18:59 Intake Total 358 600 330 Output Total 525 500 Balance -167 100 330 Intake: Oral 358 600 330 Output: Urine 525 500 Other: Voiding Method Indwelling Catheter Indwelling Catheter Indwelling Catheter # Bowel Movements 1 - Labs CBC & Chem 7: 09/05/22 10:19 09/05/22 10:19 Labs: Abnormal Lab Results - Last 24 Hours (Table) 09/01/22 09/05/22 09/05/22 Range/Units 16:39 10:19 10:19 RBC 3.61 L (3.80-5.40) m/uL MCV 100.3 H (80.0-100.0) fL Plt Count 104 L (150-450) k/uL Potassium (3.5-5.1) mmol/L Chloride (98-107) mmol/L BUN (7-17) mg/dL Creatinine (0.52-1.04) mg/dL Calcium (8.4-10.2) mg/dL AST (14-36) U/L Total Protein (6.3-8.2) g/dL Vitamin B1 154 H (38-122) ug/L TSH 61.700 H (0.465-4.680) mIU/L 09/05/22 Range/Units 10:19 RBC (3.80-5.40) m/uL MCV (80.0-100.0) fL Plt Count (150-450) k/uL Potassium 3.4 L (3.5-5.1) mmol/L Chloride 108 H (98-107) mmol/L BUN 19 H (7-17) mg/dL Creatinine 1.49 H (0.52-1.04) mg/dL Calcium 6.5 L (8.4-10.2) mg/dL AST 40 H (14-36) U/L Total Protein 6.1 L (6.3-8.2) g/dL Vitamin B1 (38-122) ug/L TSH (0.465-4.680) mIU/L
[2022-09-05 12:36] LABS: T4, Free (Free Thyroxine) 0.61 ng/dL (0.78-2.19)
--- NOTE | 2022-09-05 13:12 | P.PN ---
Progress Note - Text Progress Note Date: 09/05/22 Patient is seen and examined today at bedside. She feels that she continues have significant troubles and weakness at her hands. She still unable to get up on her own. She thinks that the steroid may have helped her hand function slightly with some of her activities of daily living such as drinking from a cup and eating but she still feels significantly weak. She is still not confident when she tries to mobilize because of the weakness in her lower extremity is. On exam She is afebrile stable vital signs Her abdomen soft and nontender At her extremities she has positive Graham sign and some hyperreflexia. She has about 4 out of 5 [employer] strength bilaterally. 3+ out of 5 abduction her bilateral shoulders. 4-5 biceps and triceps bilaterally. 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 This is giving her some increased function in her hands and fingers but she still has significant deficits with some weakness. I think that much of her weakness stems from the myelomalacia and her myelopathy from her cervical spine. The most severe areas are behind C3 4 and C4 5. It is somewhat less stenotic at C5 6 and C6 7. There is no myelomalacia behind C5 6 or 7. I think that she could have further improvement with surgical intervention in the form of anterior cervical decompression with fusion at C3 4 C4 5. This would help alleviate the stenosis and could give the cord a chance to heal further while stabilizing her spinal column anteriorly. I discussed this with her again at length. I discussed the risk, patient's, alternatives and benefits of surgery including but not limited to the risk of bleeding risk infection risk and need for further surgery risk of decreased loss of motion loss function malunion nonunion hardware failure nerve damage as well as the fact that surgery may not alleviate her symptoms was explained. The patient wishes to proceed with surgical intervention and we will plan for surgery on Wednesday. We'll plan for surgical anterior cervical decompression with fusion at C3 4 C4 5 on Wednesday
--- NOTE | 2022-09-05 13:25 | P.PN ---
Subjective Progress Note Date: 09/05/22 Patient is seen resting comfortably in bed with no signs of acute distress. She is waiting to undergo spinal surgery and we have been consulted for preoperative clearance. She denies chest pain, shortness of breath, dizziness, syncope, or edema. Patient has no history of coronary artery disease or congestive heart failure. Patient had an 2-D echocardiogram obtained today. At this time patient does not have any cardiac contraindications for surgery and anesthesia. Will review echocardiogram and clear patient for surgery for Wednesday. Objective - Vital Signs Vital signs: Vital Signs Temp 97.9 F 09/05/22 09:10 Pulse 66 09/05/22 11:35 Resp 17 09/05/22 11:35 BP 148/83 09/05/22 11:35 Pulse Ox 96 09/05/22 11:35 FiO2 Intake & Output 09/04/22 09/05/22 09/05/22 18:59 06:59 18:59 Intake Total 358 600 330 Output Total 525 500 Balance -167 100 330 Intake: Oral 358 600 330 Output: Urine 525 500 Other: Voiding Method Indwelling Catheter Indwelling Catheter Indwelling Catheter # Bowel Movements 1 - Exam PHYSICAL EXAM: VITAL SIGNS: Reviewed. GENERAL: Well-developed in no acute distress. HEENT: Head is normocephalic. Pupils are equal, round. Sclerae anicteric. Mucous membranes of the mouth are moist. NECK: Supple. No JVD or thyromegaly RESPIRATORY: Respirations even and unlabored. Lungs diminished to auscultation bilaterally. CARDIO: Regular rate and rhythm. S1 and S2 heard. No murmur or gallops. EXTREMITIES: Normal range of motion. No clubbing or cyanosis. Peripheral pulses intact. Negative for bilateral lower extremity edema NEURO: Orientated to person, time, mood is appropriate - Labs CBC & Chem 7: 09/05/22 10:19 09/05/22 10:19 Labs: Abnormal Lab Results - Last 24 Hours (Table) 09/01/22 09/05/22 09/05/22 Range/Units 16:39 10:19 10:19 RBC 3.61 L (3.80-5.40) m/uL MCV 100.3 H (80.0-100.0) fL Plt Count 104 L (150-450) k/uL Potassium (3.5-5.1) mmol/L Chloride (98-107) mmol/L BUN (7-17) mg/dL Creatinine (0.52-1.04) mg/dL Calcium (8.4-10.2) mg/dL AST (14-36) U/L Total Protein (6.3-8.2) g/dL Vitamin B1 154 H (38-122) ug/L TSH 61.700 H (0.465-4.680) mIU/L Free T4 0.61 L (0.78-2.19) ng/dL 09/05/22 Range/Units 10:19 RBC (3.80-5.40) m/uL MCV (80.0-100.0) fL Plt Count (150-450) k/uL Potassium 3.4 L (3.5-5.1) mmol/L Chloride 108 H (98-107) mmol/L BUN 19 H (7-17) mg/dL Creatinine 1.49 H (0.52-1.04) mg/dL Calcium 6.5 L (8.4-10.2) mg/dL AST 40 H (14-36) U/L Total Protein 6.1 L (6.3-8.2) g/dL Vitamin B1 (38-122) ug/L TSH (0.465-4.680) mIU/L Free T4 (0.78-2.19) ng/dL Assessment and Plan Assessment: Preoperative cardiac evaluation Cervical cord compression Plan: Review 2-D echocardiogram Further recommendations based on clinical course The above impression and plan of care have been discussed and directed by the signing physician. Fatoumata Sotelo, nurse practitioner, acting as scribe for signing physician.
--- NOTE | 2022-09-05 14:10 | P.PN ---
Subjective Progress Note Date: 09/05/22 This is a pleasant 62 years old female with past medical history of osteoarthritis, Patient presents because of increased weakness, numbness in her hands and feet Patient states that she feels weak for 4 months, however since yesterday she said she cannot walk because of her weakness, at baseline she uses a walker. She lives in apartment with her boyfriend. Also she reports chronic numbness in her hand and feet for about a month. She denies any other numbness, no blurred vision or slurred speech. No dizziness. She denies chest pain or dyspnea. However she states that she has headache about 5/10 of one day duration, but also she reports chronic pain in her neck. She denies chest pain or dyspnea, she had normal bowel movement no vomiting no abdominal pain or tenderness however her abdomen looks significantly distended. She smokes about half pack per day, she was counseled to quit she declines also she does not want nicotine patch. No alcohol or illicit drug. She says that she supposed to be on thyroid hormone replacement therapy but she stopped taking it for 1.5 years ago because she thought she does not needed. She states that she supposed to be on vitamin D, acid reflux disease and inhaler as she has history of COPD Vitas looks stable, patient is afebrile she is not hypothermic. Labs showing mild leukocytosis of 11.3. Rest of CBC, INR is unremarkable Creatinine is trending up 1.5, it was 1.2 about 10 days ago. Trace of BMP and liver enzymes were unremarkable. TSH is more than 100, free T4 is less than 0.15 EKG showing sinus rhythm with short NV interval, T waves in the lateral limits. No significant ST-T changes Abdominal x-ray/KUB: Overall nonspecific but favor nonobstructive bowel gas pattern. Severe distal colonic fecal stasis is suspected. Chest x-ray: Cardiomegaly without acute pulmonary process serum cortisol is 14 in the emergency room patient received 1 dose of Cortef 100 mg as well as IV levothyroxine. Also she was started on normal saline 100 mL per hour. 09/02/2022 She's awake alert, she still feels generally weak. No chest pain or dyspnea. She denies specific urinary symptoms or abdominal pain or tenderness Patient with chronic bilateral feet and hand numbness. She still complaining from neck pain about 5/10 and states that's from her spi ne, neurologist on the case and patient may benefit from further testing of the cervical spine. She is hemodynamically stable and only mildly bradycardic secondary to thyroid hormone. CBC is unremarkable and received back to normal. Creatinine 1.5 but she did not receive much fluids last night, we will keep normal saline at 75 mL/h. Neurologist on the case. She remains on ceftriaxone for possible UTI and/or colitis. 09/03/2022 I discussed the case with the neurologist office today, patient MRI of the cervical spine showing severe spinal stenosis C3-C4, orthopedic surgery has been consulted and patient is started on Solu-Medrol 60 mg twice daily, and further recommendation to be followed by surgery team. Patient still complains from weakness in all 4 extremities with numbness in both hands and feet. This might contribute to the patient falling at home. Also patient underwent fecal disimpaction under surgical anesthesia today. She will continue getting the edema. This morning her abdomen was still distended and hopefully this will help her much. Patient urine culture came back negative. The patient finished her treatment for UTI and he can stop the antibiotics ceftriaxone Also her creatinine is stable at 1.5-1.6, looks like patient has chronic kidney disease stage III rather than acute kidney injury. Her levothyroxine is currently she is receiving 75 g daily. We'll keep the patient on IV fluid D5 normal saline as she still nothing by mouth 09/04/2022 Patient today awake alert, denies any new complaint, she still have numbness and weakness in both hands and feet and extremities. She was seen by orthopedic team and she is currently on IV Solu-Medrol with a plan for possible surgical intervention in 2-3 days for her severe spinal stenosis of C3-C4, I discussed these with the patient and she is aware of this plan and she is agreeable. Because of all of these things and ask for cardiac evaluation for preop management. She is currently on levothyroxine increased to 75 g for his severe hypothyroidism, present on admission, we are going to check the thyroid function test tomorrow. In the meantime she remains also on some gentle hydration Surgical team are following the patient and she was started on lactulose today, she denies abdominal pain and her abdomen is significantly less distended than last 2 days but not completely resolved. Creatinine but at 1.4, low-calorie some replaced, low vitamin D is replaced as well. Patient denies any urinary symptoms 09/05. Patient seen and examined. Does not look in acute distress. Patient has been afebrile. Denies any nausea, vomiting or abdominal pain. Vital signs stable REVIEW OF SYSTEMS: CONSTITUTIONAL: No fever, no malaise,. CARDIOVASCULAR: No chest pain, no palpitations, no syncope. PULMONARY: No shortness of breath, no cough, GASTROINTESTINAL: No diarrhea, no nausea, no vomiting, no abdominal pain. NEUROLOGICAL: No headaches, no weakness, PHYSICAL EXAMINATION: GENERAL: The patient is alert and oriented x3, not in any acute distress. Well developed, well nourished. HEENT: Pupils are round and equally reacting to light. EOMI. No scleral icterus. No conjunctival pallor. Normocephalic, atraumatic. No pharyngeal erythema. No thyromegaly. CARDIOVASCULAR: S1 and S2 present. No murmurs, rubs, or gallops. PULMONARY: Chest is clear to auscultation, no wheezing or crackles. ABDOMEN: Soft, nontender, nondistended, normoactive bowel sounds. No palpable organomegaly. MUSCULOSKELETAL: No joint swelling or deformity. EXTREMITIES: No cyanosis, clubbing, or pedal edema. NEUROLOGICAL: Gross neurological examination did not reveal any focal deficits. SKIN: No rashes. Assessment and plan Monitor vital signs Monitor CBC Continue with levothyroxine Cardiac preop evaluation for possible surgical intervention for C3-C4 stenosis possibly on Wednesday Dr. robertson offered patient to transfer her to a tertiary care center as we don't have textile machine operator in this facility, patient declined and she wants to stay here for treatment. Risks and benefits are explained for the patient and she verbalized understanding Labs and medication were reviewed.. Continue same treatment. Continue with symptomatic treatment. Resume home medication. Monitor labs and vitals. DVT and GI prophylaxis. Further recommendations as per clinical course of the patient Objective - Vital Signs Vital signs: Vital Signs Temp 97.9 F 09/05/22 09:10 Pulse 66 09/05/22 11:35 Resp 17 09/05/22 11:35 BP 148/83 09/05/22 11:35 Pulse Ox 96 09/05/22 11:35 FiO2 Intake & Output 09/04/22 09/05/22 09/05/22 18:59 06:59 18:59 Intake Total 358 600 330 Output Total 525 500 Balance -167 100 330 Intake: Oral 358 600 330 Output: Urine 525 500 Other: Voiding Method Indwelling Catheter Indwelling Catheter Indwelling Catheter # Bowel Movements 1 - Labs CBC & Chem 7: 09/05/22 10:19 09/05/22 10:19 Labs: Abnormal Lab Results - Last 24 Hours (Table) 09/01/22 09/05/22 09/05/22 Range/Units 16:39 10:19 10:19 RBC 3.61 L (3.80-5.40) m/uL MCV 100.3 H (80.0-100.0) fL Plt Count 104 L (150-450) k/uL Potassium (3.5-5.1) mmol/L Chloride (98-107) mmol/L BUN (7-17) mg/dL Creatinine (0.52-1.04) mg/dL Calcium (8.4-10.2) mg/dL AST (14-36) U/L Total Protein (6.3-8.2) g/dL Vitamin B1 154 H (38-122) ug/L TSH 61.700 H (0.465-4.680) mIU/L Free T4 0.61 L (0.78-2.19) ng/dL 09/05/22 Range/Units 10:19 RBC (3.80-5.40) m/uL MCV (80.0-100.0) fL Plt Count (150-450) k/uL Potassium 3.4 L (3.5-5.1) mmol/L Chloride 108 H (98-107) mmol/L BUN 19 H (7-17) mg/dL Creatinine 1.49 H (0.52-1.04) mg/dL Calcium 6.5 L (8.4-10.2) mg/dL AST 40 H (14-36) U/L Total Protein 6.1 L (6.3-8.2) g/dL Vitamin B1 (38-122) ug/L TSH (0.465-4.680) mIU/L Free T4 (0.78-2.19) ng/dL
--- NOTE | 2022-09-05 15:13 | CA ---
Transthoracic Echo Report Name: Priscila Limon Age: 62 Gender: F : 1960 Exam Date: 09/05/2022 10:02 Exam Location: [place] [facility] Ht (in): 65 Wt (lb): 175 Ordering Physician: Johann Grady MD ([id number]) Attending/Referring Phys: Miguel A HANNA Acoustical Installer Kim Moore RDCS Procedure CPT: Indications: structure and function-cardio clearence for sx Cardiac Hx: Technical Quality: Contrast 1: Total Dose (mL): Contrast 2: Total Dose (mL): MEASUREMENTS (Male / Female) Normal Values 2D ECHO LV Diastolic Diameter PLAX 4.2 cm 4.2 - 5.9 / 3.9 - 5.3 cm LV Systolic Diameter PLAX 3.1 cm IVS Diastolic Thickness 0.8 cm 0.6 - 1.0 / 0.6 - 0.9 cm LVPW Diastolic Thickness 1.5 cm 0.6 - 1.0 / 0.6 - 0.9 cm LV Relative Wall Thickness 0.5 RV Internal Dim ED PLAX 2.3 cm LA Systolic Diameter LX 3.4 cm 3.0 - 4.0 / 2.7 - 3.8 cm LA Volume 50.3 cm??? 18 - 58 / 22 - 52 cm??? M-MODE Aortic Root Diameter MM 2.9 cm LA Systolic Diameter MM 3.4 cm LA Ao Ratio MM 1.2 AV Cusp Separation MM 1.4 cm DOPPLER MV Area PHT 2.4 cm??? Mitral E Point Velocity 102.4 cm/s Mitral A Point Velocity 112.1 cm/s Mitral E to A Ratio 0.9 MV Deceleration Time 317.8 ms MV E' Velocity 6.9 cm/s Mitral E to MV E' Ratio 14.9 TR Peak Velocity 317.3 cm/s TR Peak Gradient 40.3 mmHg Right Ventricular Systolic Press 45.3 mmHg FINDINGS Left Ventricle Left ventricular ejection fraction is estimated at 55%. Left ventricular cavity size normal. Left ventricular cavity size normal. Right Ventricle Normal right ventricular size and function. Mild pulmonary hypertension. Right ventricular systolic pressure estimated at 45 mm hg. Right Atrium Normal right atrial size. Left Atrium Normal left atrial size. Mitral Valve Structurally normal mitral valve. Mild mitral annular calcification. Aortic Valve Trileaflet aortic valve. Tricuspid Valve Structurally normal tricuspid valve. Mild tricuspid regurgitation. Pulmonic Valve Structurally normal pulmonic valve. Pericardium Normal pericardium. Aorta Normal size aortic root and proximal ascending aorta. CONCLUSIONS Normal LV systolic function Mild pulmonary hypertension Mild tricuspid regurgitation Previewed by: Dr. Johann Grady MD (Electronically Signed) Final Date: 05 September 2022 15:12
[2022-09-05] MEDS: FAMOTIDINE 20 MG/2 ML VIAL IV SCH (20:08)
[2022-09-06] MEDS: DEXTROSE 5%-0.9% NACL 1,000 ML IV SCH ×3 (04:55→22:42)
[2022-09-06] MEDS: LEVOTHYROXINE 75 MCG TAB PO SCH (06:25)
[2022-09-06] MEDS: CALCIUM CARB-VIT D 500 MG-5 MCG TAB PO SCH ×3 (06:25→17:00)
[2022-09-06] MEDS: HEPARIN SODIUM,PORCINE/PF 5,000 UNIT/0.5 ML SYRINGE SQ SCH ×2 (08:08→19:55)
[2022-09-06] MEDS: ACETAMINOPHEN TAB 325 MG TAB PO PRN (08:08)
[2022-09-06] MEDS: DOCUSATE 100 MG CAP PO SCH (08:09)
[2022-09-06] MEDS: methylPREDNISolone SOD SUCCI 125 MG/2 ML VIAL IV SCH ×2 (08:09→19:55)
--- NOTE | 2022-09-06 10:54 | CT ---
EXAMINATION TYPE: CT abdomen pelvis wo con CT DLP: 627.4 mGycm, Automated exposure control for dose reduction was used. DATE OF EXAM: 09/06/2022 10:24 AM COMPARISON: CT abdomen pelvis most recent from 09/01/2022 CLINICAL INDICATION:Female, 62 years old with history of abdominal distention; Abdominal distention TECHNIQUE: Axial CT of the abdomen and pelvis. Sagittal and coronal reformats were created on a [employer] workstation. Contrast used: None Oral contrast used: without Oral Contrast FINDINGS: LOWER CHEST: Bilateral pleural effusions with associated atelectasis which are new from prior.. Idalmis l valve annular cusp patient's. Coronary artery calcifications. ABDOMEN LIVER: Unremarkable GALLBLADDER AND BILE DUCTS: Suspected gallstone in the gallbladder lumen. PANCREAS: Unremarkable. SPLEEN: Unremarkable. ADRENAL GLANDS: Unremarkable. KIDNEYS AND URETERS: No evidence of hydronephrosis or renal calculus. Dilation of the collecting syst ems has decreased from prior. There remains hydroureter likely secondary to mass effect on from stool . PELVIS BLADDER: Nondistended with Otero catheter in place. REPRODUCTIVE: Unremarkable. ABDOMEN & PELVIS STOMACH AND BOWEL: There is marked amount stool throughout the colon similar prior. Gaseous dilation of the colon and now small bowel likely on this exam is likely secondary to the diffuse amount stool within the rectum preventing relief. PERITONEUM: No evidence of pneumoperitoneum or free fluid. VASCULATURE: No evidence of aortic aneurysm. Atherosclerosis of the arterial vasculature. MUSCULOSKELETAL: No acute osseous abnormalities, multilevel disc degeneration changes throughout the spine. LYMPH NODES: No gross evidence for lymphadenopathy. SOFT TISSUE/ABDOMINAL WALL: There is now diffuse anasarca of the soft tissues. IMPRESSION: 1. There remains a marked amount of stool predominantly sigmoid: with gaseous dilation of upstream b owel which is now involving many loops of small bowel. Disimpaction remains the recommendation. 2. New from prior bilateral pleural effusions with associated atelectasis and anasarca. 3. Otero catheter in appropriate position. 4. Decrease in dilation of the collecting systems when compared to immediate prior.
--- NOTE | 2022-09-06 12:19 | P.PN ---
Subjective Progress Note Date: 09/06/22 Patient is examined today in no signs of acute distress. She is resting comfortably in bed with the chest pain or increased shortness of breath. She is waiting to undergo spinal surgery and we have been consulted for preoperative clearance. She denies chest pain, shortness of breath, dizziness, syncope, or edema. Patient has no history of coronary artery disease or congestive heart failure. She underwent an echocardiogram which showed a normal LV function with mild pulmonary hypertension and mild tricuspid regurgitation. At this point there is no absolute contraindication for proposed surgery under anesthesia. Patient is an acceptable risk for the procedure. We'll continue to follow patient on an as-needed basis Objective - Vital Signs Vital signs: Vital Signs Temp 98 F 09/06/22 08:05 Pulse 70 09/06/22 11:10 Resp 18 09/06/22 11:10 BP 163/96 09/06/22 11:10 Pulse Ox 96 09/06/22 11:10 FiO2 Intake & Output 09/05/22 09/06/22 09/06/22 18:59 06:59 18:59 Intake Total 330 Output Total 400 450 200 Balance -70 -450 -200 Intake: Oral 330 Output: Urine 400 450 200 Other: Voiding Method Indwelling Catheter Indwelling Catheter Indwelling Catheter # Bowel Movements 1 - Exam PHYSICAL EXAM: VITAL SIGNS: Reviewed. GENERAL: Well-developed in no acute distress. HEENT: Head is normocephalic. Pupils are equal, round. Sclerae anicteric. Mucous membranes of the mouth are moist. NECK: Supple. No JVD or thyromegaly RESPIRATORY: Respirations even and unlabored. Lungs diminished to auscultation bilaterally. CARDIO: Regular rate and rhythm. S1 and S2 heard. No murmur or gallops. EXTREMITIES: Normal range of motion. No clubbing or cyanosis. Peripheral pulses intact. Negative for bilateral lower extremity edema NEURO: Orientated to person, time, mood is appropriate - Labs CBC & Chem 7: 09/05/22 10:19 09/05/22 10:19 Labs: Abnormal Lab Results - Last 24 Hours (Table) 09/05/22 Range/Units 10:19 Free T4 0.61 L (0.78-2.19) ng/dL Assessment and Plan Assessment: Preoperative cardiac evaluation Cervical cord compression Plan: Will continue to follow on an as-needed basis Review 2-D echocardiogram Patient is an acceptable risk for surgery and anesthesia Further recommendations based on clinical course The above impression and plan of care have been discussed and directed by the signing physician. Fatoumata Sotelo, nurse practitioner, acting as scribe for signing physician.
--- NOTE | 2022-09-06 12:25 | P.PN ---
Progress Note - Text Progress Note Date: 09/06/22 The patient is seen and examined today at bedside. She denies any new complaints but still feels that she is having great difficulty with her hands and her feet. 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 We again discussed the issues at her cervical spine with her myelopathy and how it is affecting her spinal cord and function at her upper and lower extremities. We again discussed surgery and she is eager to proceed with surgical intervention. She is afebrile Her exam is unchanged. She still has global weakness in her bilateral upper and lower extremities. She is not having acute new focal episodes. She has positive Graham's and hyperreflexia Assessment and plan Cervical myelopathy with myeloradiculopathy at the upper and lower extremities Myelomalacia at cervical spine due to severe stenosis C3 4 C4 5 Degenerative disc disease Upper and lower extremity weakness The patient has significant cervical stenosis with myelopathy and is having safe and issues due to this. We again discussed the various risks, occasions alternatives and benefits of her issues as well as the treatment including surgery. We'll plan to proceed with surgery tomorrow in the form of anterior cervical decompression with fusion at C3 4 C4 5. She'll be nothing by mouth after midnight. She has obtained clearance for surgery.
--- NOTE | 2022-09-06 12:47 | P.PN ---
Subjective Progress Note Date: 09/06/22 This is a pleasant 62 years old female with past medical history of osteoarthritis, Patient presents because of increased weakness, numbness in her hands and feet Patient states that she feels weak for 4 months, however since yesterday she said she cannot walk because of her weakness, at baseline she uses a walker. She lives in apartment with her boyfriend. Also she reports chronic numbness in her hand and feet for about a month. She denies any other numbness, no blurred vision or slurred speech. No dizziness. She denies chest pain or dyspnea. However she states that she has headache about 5/10 of one day duration, but also she reports chronic pain in her neck. She denies chest pain or dyspnea, she had normal bowel movement no vomiting no abdominal pain or tenderness however her abdomen looks significantly distended. She smokes about half pack per day, she was counseled to quit she declines also she does not want nicotine patch. No alcohol or illicit drug. She says that she supposed to be on thyroid hormone replacement therapy but she stopped taking it for 1.5 years ago because she thought she does not needed. She states that she supposed to be on vitamin D, acid reflux disease and inhaler as she has history of COPD Vitas looks stable, patient is afebrile she is not hypothermic. Labs showing mild leukocytosis of 11.3. Rest of CBC, INR is unremarkable Creatinine is trending up 1.5, it was 1.2 about 10 days ago. Trace of BMP and liver enzymes were unremarkable. TSH is more than 100, free T4 is less than 0.15 EKG showing sinus rhythm with short VT interval, T waves in the lateral limits. No significant ST-T changes Abdominal x-ray/KUB: Overall nonspecific but favor nonobstructive bowel gas pattern. Severe distal colonic fecal stasis is suspected. Chest x-ray: Cardiomegaly without acute pulmonary process serum cortisol is 14 in the emergency room patient received 1 dose of Cortef 100 mg as well as IV levothyroxine. Also she was started on normal saline 100 mL per hour. 09/02/2022 She's awake alert, she still feels generally weak. No chest pain or dyspnea. She denies specific urinary symptoms or abdominal pain or tenderness Patient with chronic bilateral feet and hand numbness. She still complaining from neck pain about 5/10 and states that's from her spi ne, neurologist on the case and patient may benefit from further testing of the cervical spine. She is hemodynamically stable and only mildly bradycardic secondary to thyroid hormone. CBC is unremarkable and received back to normal. Creatinine 1.5 but she did not receive much fluids last night, we will keep normal saline at 75 mL/h. Neurologist on the case. She remains on ceftriaxone for possible UTI and/or colitis. 09/03/2022 I discussed the case with the neurologist office today, patient MRI of the cervical spine showing severe spinal stenosis C3-C4, orthopedic surgery has been consulted and patient is started on Solu-Medrol 60 mg twice daily, and further recommendation to be followed by surgery team. Patient still complains from weakness in all 4 extremities with numbness in both hands and feet. This might contribute to the patient falling at home. Also patient underwent fecal disimpaction under surgical anesthesia today. She will continue getting the edema. This morning her abdomen was still distended and hopefully this will help her much. Patient urine culture came back negative. The patient finished her treatment for UTI and he can stop the antibiotics ceftriaxone Also her creatinine is stable at 1.5-1.6, looks like patient has chronic kidney disease stage III rather than acute kidney injury. Her levothyroxine is currently she is receiving 75 g daily. We'll keep the patient on IV fluid D5 normal saline as she still nothing by mouth 09/04/2022 Patient today awake alert, denies any new complaint, she still have numbness and weakness in both hands and feet and extremities. She was seen by orthopedic team and she is currently on IV Solu-Medrol with a plan for possible surgical intervention in 2-3 days for her severe spinal stenosis of C3-C4, I discussed these with the patient and she is aware of this plan and she is agreeable. Because of all of these things and ask for cardiac evaluation for preop management. She is currently on levothyroxine increased to 75 g for his severe hypothyroidism, present on admission, we are going to check the thyroid function test tomorrow. In the meantime she remains also on some gentle hydration Surgical team are following the patient and she was started on lactulose today, she denies abdominal pain and her abdomen is significantly less distended than last 2 days but not completely resolved. Creatinine but at 1.4, low-calorie some replaced, low vitamin D is replaced as well. Patient denies any urinary symptoms 09/05. Patient seen and examined. Does not look in acute distress. Patient has been afebrile. Denies any nausea, vomiting or abdominal pain. Vital signs stable 09/06. Patient seen and examined. Abdominal is distended, no bowel movement for the last 2 days. Patient states she is passing gas. Denies any abdominal pain REVIEW OF SYSTEMS: CONSTITUTIONAL: No fever, no malaise,. CARDIOVASCULAR: No chest pain, no palpitations, no syncope. PULMONARY: No shortness of breath, no cough, GASTROINTESTINAL: No diarrhea, no nausea, no vomiting, no abdominal pain. NEUROLOGICAL: No headaches, no weakness, PHYSICAL EXAMINATION: GENERAL: The patient is alert and oriented x3, not in any acute distress. Well developed, well nourished. HEENT: Pupils are round and equally reacting to light. EOMI. No scleral icterus. No conjunctival pallor. Normocephalic, atraumatic. No pharyngeal erythema. No thyromegaly. CARDIOVASCULAR: S1 and S2 present. No murmurs, rubs, or gallops. PULMONARY: Chest is clear to auscultation, no wheezing or crackles. ABDOMEN: Distended, bowel sounds audible, no tenderness. No palpable organomegaly. MUSCULOSKELETAL: No joint swelling or deformity. EXTREMITIES: No cyanosis, clubbing, or pedal edema. NEUROLOGICAL: Gross neurological examination did not reveal any focal deficits. SKIN: No rashes. Assessment and plan Monitor vital signs Monitor CBC Continue with levothyroxine Cardiology cleared the patient for surgery Plan for anterior cervical decompression with fusion at C3 [address] robertson offered patient to transfer her to a tertiary care center as we don't have client delivery manager in this facility, patient declined and she wants to stay here for treatment. Risks and benefits are explained for the patient and she verbalized understanding Gen. surgery is on board, x-ray abdomin ordered Labs and medication were reviewed.. Continue same treatment. Continue with symptomatic treatment. Further recommendations as per clinical course of the patient Objective - Vital Signs Vital signs: Vital Signs Temp 98 F 09/06/22 08:05 Pulse 70 09/06/22 11:10 Resp 18 09/06/22 11:10 BP 163/96 09/06/22 11:10 Pulse Ox 96 09/06/22 11:10 FiO2 Intake & Output 09/05/22 09/06/22 09/06/22 18:59 06:59 18:59 Intake Total 330 Output Total 400 450 200 Balance -70 -450 -200 Intake: Oral 330 Output: Urine 400 450 200 Other: Voiding Method Indwelling Catheter Indwelling Catheter Indwelling Catheter # Bowel Movements 1 - Labs CBC & Chem 7: 09/05/22 10:19 09/05/22 10:19
--- NOTE | 2022-09-06 13:28 | P.PN ---
Subjective Progress Note Date: 09/06/22 CT of the abdomen and pelvis independently reviewed demonstrate diffuse gastritis distention of small bowel and colon. Retained feces of the rectum and sigmoid colon. Patient denies any abdominal pain. Abdomen is firm without peritonitis. Recommend nothing by mouth. Start of simethicone gas drops. She has severe hypothyroidism which also contributed to severe ileus. Recommend aggressive correction of hypothyroidism. No acute general surgical intervention at this time. Objective - Vital Signs Vital signs: Vital Signs Temp 98 F 09/06/22 08:05 Pulse 70 09/06/22 11:10 Resp 18 09/06/22 11:10 BP 163/96 09/06/22 11:10 Pulse Ox 96 09/06/22 11:10 FiO2 Intake & Output 09/05/22 09/06/22 09/06/22 18:59 06:59 18:59 Intake Total 330 Output Total 400 450 200 Balance -70 -450 -200 Intake: Oral 330 Output: Urine 400 450 200 Other: Voiding Method Indwelling Catheter Indwelling Catheter Indwelling Catheter # Bowel Movements 1 - Labs CBC & Chem 7: 09/05/22 10:19 09/05/22 10:19
[2022-09-06] MEDS ORDERED: CYANOCOBALAMIN 1,000 MCG/ML 1 ML VIAL IM ONE (13:30)
[2022-09-06] MEDS: SIMETHICONE 40 MG/0.6 ML DROPS 2,000 MG/30 ML BOTTLE PO SCH ×3 (13:45→19:55)
[2022-09-06] MEDS: PYRIDOXINE 50 MG TAB PO SCH (13:46)
[2022-09-06] MEDS: FAMOTIDINE 20 MG/2 ML VIAL IV SCH (19:55)
--- NOTE | 2022-09-06 21:03 | P.PN ---
Subjective Progress Note Date: 09/03/22 Patient was seen for a follow-up. Patient denies any changes in her condition. Patient is laying comfortably in the bed. Continues to have weakness, numbness of all extremities from toes up to hips and fingers up to shoulders bilaterally. Objective - Vital Signs Vital signs: Vital Signs Temp 98.5 F 09/03/22 16:00 Pulse 61 09/03/22 16:00 Resp 16 09/03/22 16:00 BP 131/72 09/03/22 16:00 Pulse Ox 95 09/03/22 16:00 FiO2 Intake & Output 09/03/22 09/03/22 09/04/22 06:59 18:59 06:59 Intake Total 10 50 Output Total 400 725 Balance -390 -675 Intake: IV 10 50 Invasive Line 2 10 Oral 0 Output: Urine 400 725 Other: Voiding Method Indwelling Catheter Indwelling Catheter # Bowel Movements 1 2 - Exam Examination remains unchanged. - Labs CBC & Chem 7: 09/05/22 10:19 09/05/22 10:19 Labs: Abnormal Lab Results - Last 24 Hours (Table) 09/01/22 09/01/22 09/02/22 Range/Units 16:39 16:39 12:51 RBC (3.80-5.40) m/uL MCV (80.0-100.0) fL Plt Count (150-450) k/uL Lymphocytes # (1.0-4.8) k/uL Chloride (98-107) mmol/L BUN (7-17) mg/dL Creatinine (0.52-1.04) mg/dL Glucose (74-99) mg/dL Calcium (8.4-10.2) mg/dL Vitamin B6 2 L (5-50) ug/L Methylmalonic Acid 0.44 H (<0.40) umol/L Vitamin D 25-Hydroxy (30.0-100.0) ng/mL SS-B Ab Interp POSITIVE A (NEGATIVE) 09/03/22 09/03/22 09/03/22 Range/Units 09:25 09:25 09:25 RBC 3.49 L (3.80-5.40) m/uL MCV 100.6 H (80.0-100.0) fL Plt Count 82 L (150-450) k/uL Lymphocytes # 0.8 L (1.0-4.8) k/uL Chloride 108 H (98-107) mmol/L BUN 30 H (7-17) mg/dL Creatinine 1.62 H (0.52-1.04) mg/dL Glucose 72 L (74-99) mg/dL Calcium 6.3 L* (8.4-10.2) mg/dL Vitamin B6 (5-50) ug/L Methylmalonic Acid (<0.40) umol/L Vitamin D 25-Hydroxy 28.8 L (30.0-100.0) ng/mL SS-B Ab Interp (NEGATIVE) Microbiology - Last 24 Hours (Table) 09/01/22 09:40 Urine Culture - Final Urine,Clean Catch Assessment and Plan Assessment: * 62-year-old female with progressive numbness and tingling of the lower and upper extremities, with ataxia and gait imbalance. * Cervical spinal stenosis with myelopathy. No evidence of Rule out B12, folate deficiency. * Abdominal distention, unclear etiology. * Hypothyroidism, severe, untreated. * Tobacco use Plan: * MRI of the cervical spine revealed severe spinal canal stenosis at C3-C4 with myelomalacia. I personally reviewed MRI of the cervical spine, and agree with findings. Urgent orthopedic spine consultation. Discussed with patient about MRI results. * CT of abdomen and pelvis revealed mild amount of stool seen throughout the colon particularly the sigmoid colon and descending colon. Fecal disimpaction recommended, as there are signs of sterco-colitis with wall thickening of the rectum. * CT head revealed no acute process. Indeterminate likely remote lacunar injuries within the thalami along with nonspecific white matter changes likely secondary to chronic microangiopathy. I personally reviewed CT head, appears to have mild bilateral basal ganglionic and cerebellar calcifications. No acute process. * Blood test shows ESR 18, CRP 0.9, hemoglobin A1c 5.8, B12 1259, methylmalonic acid is elevated 0.44, folate 17.6. TSH is > 100.0, with free T4 decrease 0.15. Start B12 injection because of elevated methylmalonic acid. B6 pending. * Sjogren's antibodies SSA 3.8 and SSB antibodies 1.2, both are elevated. Patient may need evaluation by a traveler changer as an outpatient. Patient's quantitative immunoglobulins are normal, immunofixation electrophoresis negative for any more prolonged gammopathy.
--- NOTE | 2022-09-06 21:10 | P.PN ---
Subjective Progress Note Date: 09/06/22 Patient was seen for a follow-up. Patient denies any changes in her condition. Patient is laying comfortably in the bed. Continues to have weakness, numbness of all extremities from toes up to hips and fingers up to shoulders bilaterally. States she feels tired. Objective - Vital Signs Vital signs: Vital Signs Temp 98 F 09/06/22 08:05 Pulse 70 09/06/22 11:10 Resp 18 09/06/22 11:10 BP 163/96 09/06/22 11:10 Pulse Ox 96 09/06/22 11:10 FiO2 Intake & Output 09/05/22 09/06/22 09/06/22 18:59 06:59 18:59 Intake Total 330 Output Total 400 450 200 Balance -70 -450 -200 Intake: Oral 330 Output: Urine 400 450 200 Other: Voiding Method Indwelling Catheter Indwelling Catheter Indwelling Catheter # Bowel Movements 1 - Exam Examination remains unchanged. - Labs CBC & Chem 7: 09/05/22 10:19 09/05/22 10:19 Assessment and Plan Assessment: * 62-year-old female with progressive numbness and tingling of the lower and upper extremities, with ataxia and gait imbalance. * Cervical spinal stenosis with myelopathy. No evidence of Rule out B12, folate deficiency. * Vitamin B6 deficiency * Abnormal Sjogren's antibodies * Abdominal distention, unclear etiology. * Hypothyroidism, severe, untreated. * Tobacco use Plan: * MRI of the cervical spine revealed severe spinal canal stenosis at C3-C4 with myelomalacia. I personally reviewed MRI of the cervical spine, and agree with findings. Patient to undergo cervical decompressive surgery in the morning. * CT of abdomen and pelvis revealed mild amount of stool seen throughout the colon particularly the sigmoid colon and descending colon. Fecal disimpaction recommended, as there are signs of sterco-colitis with wall thickening of the rectum. * CT head revealed no acute process. Indeterminate likely remote lacunar injuries within the thalami along with nonspecific white matter changes likely secondary to chronic microangiopathy. I personally reviewed CT head, appears to have mild bilateral basal ganglionic and cerebellar calcifications. No acute process. * Blood test shows ESR 18, CRP 0.9, hemoglobin A1c 5.8, B12 1259, methylmalonic acid is elevated 0.44, folate 17.6. TSH is > 100.0, with free T4 decrease 0.15. Start B12 injection because of elevated methylmalonic acid. B6 2 (5- 50). Patient will be started on B6 replacement. Patient's quantitative immunoglobulins are normal, immunofixation electrophoresis negative for any m ore prolonged gammopathy. * Sjogren's antibodies SS-A 3.8 and SS-B 1.2, both are elevated. Patient may need evaluation by a taxi cab driver as an outpatient. Discussed with patient. * Neurologically no other workup indicated. Dr. Aubrey Fountain will be starting neurology service in the morning.
[2022-09-07] MEDS: LEVOTHYROXINE 75 MCG TAB PO SCH (05:59)
[2022-09-07] MEDS: CALCIUM CARB-VIT D 500 MG-5 MCG TAB PO SCH ×3 (05:59→16:29)
[2022-09-07] MEDS: HEPARIN SODIUM,PORCINE/PF 5,000 UNIT/0.5 ML SYRINGE SQ SCH ×2 (08:46→20:31)
[2022-09-07] MEDS: PYRIDOXINE 50 MG TAB PO SCH (08:51)
[2022-09-07] MEDS: methylPREDNISolone SOD SUCCI 125 MG/2 ML VIAL IV SCH ×2 (09:00→20:31)
[2022-09-07] MEDS: SIMETHICONE 40 MG/0.6 ML DROPS 2,000 MG/30 ML BOTTLE PO SCH ×4 (09:02→20:43)
--- NOTE | 2022-09-07 11:29 | XR ---
EXAMINATION TYPE: XR KUB DATE OF EXAM: 09/07/2022 COMPARISON: NONE HISTORY: Pain TECHNIQUE: One view abdominal series FINDINGS: There are massively dilated small bowel loops. Dilated colonic loops not excluded. Findings suspiciou s for a severe obstruction. Hypertrophic and degenerative change of the spine. Blunting of costophren ic angle. No suspicious calcifications. Arthropathy of the hips greater on the left. IMPRESSION: 1. Marked distention of both large and small bowel loops suspicious for obstruction. Possible fecal i mpaction the rectum. Correlate clinically.
[2022-09-07 11:58] LABS: HCT 42.6 % (34.0-46.0); HGB 14.2 gm/dL (11.4-16.0); MCHC 33.3 g/dL (31.0-37.0); MCV 102.4 fL (80.0-100.0); Macrocytosis Slight; Mean Platelet Volume 10.1; Platelet Count 129 k/uL (150-450); RBC 4.16 m/uL (3.80-5.40); RDW 14.4 % (11.5-15.5); WBC 11.9 k/uL (3.8-10.6)
[2022-09-07 12:01] LABS: Albumin 3.2 g/dL (3.5-5.0); Calcium 7.5 mg/dL (8.4-10.2); Total Bilirubin 0.7 mg/dL (0.2-1.3); Total Protein 5.9 g/dL (6.3-8.2)
[2022-09-07] MEDS: LACTULOSE 20 GM/30 ML CUP PO SCH ×3 (12:37→14:42)
--- NOTE | 2022-09-07 12:37 | P.PN ---
Progress Note - Text Progress Note Date: 09/07/22 Orthopedic spine: History of present illness: Patient is a pleasant 62-year-old female who is seen and examined at bedside for follow up evaluation in regards to her cervical spine. She is known have cervical myelopathy with upper extremity lower extremity weakness. She has not noticed significant change in her weakness during her admission to the hospital. She is not currently complaining of upper extremity radiculopathy. Patient was scheduled for surgical intervention at her cervical spine today with a C3-4 and C4-5 anterior cervical decompression and fusion. Currently, this surgical intervention is on hold. Patient is currently being treated for severe ileus with fecal impaction. She is not cleared from general surgery to proceed forward with surgical intervention at her cervical spine. Patient is currently scheduled to continue with soaks enema and bowel prep. Continues to be seen and examined by medicine. Physical exam: Patient is awake, alert, and oriented 3 Vital signs stable Adequate chest excursion with deep inspiration and expiration Examination of the cervical spine reveals skin is intact with no abrasions, lacerations, or bruises; no erythema, purulence or signs of infection Full range of motion of the cervical spine with adequate flexion, extension, and bilateral rotation Credit Card Control Clerk strength, thumb strength, interosseous strength, biceps strength, triceps strength, and shoulder strength positive sustained bilaterally but generally weaker Upper extremity strength 4/5 bilaterally including biceps, triceps, brass burnisher, and shoulder abduction bilaterally Hoffmans sign positive upper extremity bilaterally Assessment: Cervical myelopathy Cervical myelomalacia behind C3-4 Severe cervical stenosis C3-4 with disc herniation and stenosis C4-5 Moderate cervical stenosis C5-6 and C6-7 with disc degeneration Upper extremity radiculopathy with weakness due in part to cervical myelopathy Positive Faye's sign bilaterally Lower extremity weakness likely due in part to cervical myelopathy Difficulty ambulating Fecal impaction status post disimpaction with surgery History of hypothyroid Plan: 1. Patient continues to have upper extremity and lower extremity weakness. She has difficulty mobility and has been afraid to ambulate for fear of falling. She continues to have upper extremity weakness as well and states she has d ropped things out of her hands. She is able to perform active range of motion of bilateral upper extremities independently today but she does seem generally weaker. We did discuss he has significant changes at her cervical spine most significant at C3-4 and C4-5 with evidence of cervical myelomalacia behind C3-4. She also has stenosis at C4-5. She states she was previously diagnosed with cervical stenosis but did not have specific treatment at that time. She has not had significant improvement of her symptoms since her admission to the hospital. She was scheduled to undergo a C3-4 and C4-5 anterior cervical decompression and fusion today. However, she has not been cleared for surgical intervention as she currently has severe ileus and fecal impaction. She is being treated by general surgery. She is not cleared for surgery for her cervical spine by general surgery due to her ileus. We did discuss we will plan to proceed forward with surgical intervention at her cervical spine when she is cleared by general surgery and medicine for surgical intervention. We have previously discussed in detail given the significant changes at her cervical spine that surgical intervention could provide some improvement of her symptoms but that some of her symptoms from a cervical spine standpoint will most likely remain permanent and will not completely subside. We did discuss given the severity of her stenosis and that surgical intervention to decompress her spinal cord is trying to also prevent further damage to her cord. Patient states she does want to proceed forward with surgical intervention when medically cleared. We will continue to follow the patient closely and we'll plan to proceed forward with surgical intervention when cleared. 2. Patient will continue to be seen by general surgery for her severe ileus and fecal impaction and will continue with soaks enema and bowel prep per their recommendations 3. Patient will continue to be seen and examined by other medical providers during her admission to the hospital for her other medical diagnoses.
[2022-09-07] MEDS: DEXTROSE 5%-0.9% NACL 1,000 ML IV SCH (12:40)
[2022-09-07 12:47] VITALS: BMI 29.1
--- NOTE | 2022-09-07 14:01 | P.PN ---
Subjective Progress Note Date: 09/07/22 CHIEF COMPLAINT: Fecal impaction HISTORY OF PRESENT ILLNESS: Patient is status post sigmoidoscopy with fecal disimpaction on 09/03/22. Patient ambulated has become distended and more firm. She was made nothing by mouth over the weekend. She denies any nausea or vomiting. Patient had minimal bowel movement over the weekend. Patient was initially scheduled for a cervical fusion today with spinal service. KUB x-ray shows marked distention of both large and small bowel loops suspicious for obstruction. Possible fecal impaction of the rectum. Computed tomography scan abdomen from 09/06/2022 remains marked amount of stool predominantly sigmoid colon with gaseous dilation of bowel which is now involving many loops of the small bowel. Disimpaction remains recommendation. Afebrile WBC is 11.9 Hgb 14.2 platelets 129 sodium 139 potassium 4.0 creatinine 1.48 calcium 7.5 Patient seen and examined with Dr. coto PHYSICAL EXAM: VITAL SIGNS: Reviewed. GENERAL: Well-developed in no acute distress. HEENT: No sclera icterus. Extraocular movements grossly intact. Moist buccal mucosa. Head is atraumatic, normocephalic. ABDOMEN: Distended. firm. Nontender NEUROLOGIC: Alert and oriented. Cranial nerves II through XII grossly intact. ASSESSMENT: 1. Fecal impaction with possible small bowel obstruction with fecal disimpaction on 09/03/2022 2. Cervical myelopathy and severe cervical stenosis with disc herniation 3. Hypokalemia improved 4. Hypocalcemia 5. Hypothyroidism PLAN: -Due to patient's worsening abdominal distention and continuous fecal impaction with possible obstruction would recommend canceling the cervical spine surgery for today -Place NG tube -Soap germain enemas ordered -Patient did receive 2 out of 5 doses of the lactulose. At this point with the new x-ray findings will discontinue lactulose -Keep patient nothing by mouth -Continue supportive care Physician Editor Index note has been reviewed by physician. Signing provider agrees with the documented findings, assessment, and plan of care. Objective - Vital Signs Vital signs: Vital Signs Temp 97.7 F 09/07/22 11:15 Pulse 75 09/07/22 11:15 Resp 18 09/07/22 11:15 BP 143/89 09/07/22 11:15 Pulse Ox 94 L 09/07/22 11:15 FiO2 Intake & Output 09/06/22 09/07/22 09/07/22 18:59 06:59 18:59 Intake Total 240 Output Total 200 425 Balance -200 -185 Weight 79.379 kg Intake: Oral 240 Output: Urine 200 425 Other: Voiding Method Indwelling Catheter Indwelling Catheter Indwelling Catheter # Bowel Movements 1 - Labs CBC & Chem 7: 09/07/22 11:13 09/07/22 11:13 Labs: Abnormal Lab Results - Last 24 Hours (Table) 09/07/22 09/07/22 Range/Units 11:13 11:13 WBC 11.9 H (3.8-10.6) k/uL MCV 102.4 H (80.0-100.0) fL Plt Count 129 L (150-450) k/uL Chloride 115 H (98-107) mmol/L Carbon Dioxide 12 L (22-30) mmol/L BUN 18 H (7-17) mg/dL Creatinine 1.48 H (0.52-1.04) mg/dL Glucose 126 H (74-99) mg/dL Calcium 7.5 L (8.4-10.2) mg/dL AST 37 H (14-36) U/L Total Protein 5.9 L (6.3-8.2) g/dL Albumin 3.2 L (3.5-5.0) g/dL
[2022-09-07] MEDS ORDERED: LEVOTHYROXINE 25 MCG TAB PO ONE (17:00)
--- NOTE | 2022-09-07 17:05 | P.PN ---
Subjective This is a pleasant 62 years old female with past medical history of osteoarthritis, Patient presents because of increased weakness, numbness in her hands and feet Patient states that she feels weak for 4 months, however since yesterday she said she cannot walk because of her weakness, at baseline she uses a walker. She lives in apartment with her boyfriend. Also she reports chronic numbness in her hand and feet for about a month. She denies any other numbness, no blurred vision or slurred speech. No dizziness. She denies chest pain or dyspnea. However she states that she has headache about 5/10 of one day duration, but also she reports chronic pain in her neck. She denies chest pain or dyspnea, she had normal bowel movement no vomiting no abdominal pain or tenderness however her abdomen looks significantly distended. She smokes about half pack per day, she was counseled to quit she declines also she does not want nicotine patch. No alcohol or illicit drug. She says that she supposed to be on thyroid hormone replacement therapy but she stopped taking it for 1.5 years ago because she thought she does not needed. She states that she supposed to be on vitamin D, acid reflux disease and inhaler as she has history of COPD Vitas looks stable, patient is afebrile she is not hypothermic. Labs showing mild leukocytosis of 11.3. Rest of CBC, INR is unremarkable Creatinine is trending up 1.5, it was 1.2 about 10 days ago. Trace of BMP and liver enzymes were unremarkable. TSH is more than 100, free T4 is less than 0.15 EKG showing sinus rhythm with short [place] interval, T waves in the lateral limits. No significant ST-T changes Abdominal x-ray/KUB: Overall nonspecific but favor nonobstructive bowel gas pattern. Severe distal colonic fecal stasis is suspected. Chest x-ray: Cardiomegaly without acute pulmonary process serum cortisol is 14 in the emergency room patient received 1 dose of Cortef 100 mg as well as IV levothyroxine. Also she was started on normal saline 100 mL per hour. 09/02/2022 She's awake alert, she still feels generally weak. No chest pain or dyspnea. She denies specific urinary symptoms or abdominal pain or tenderness Patient with chronic bilateral feet and hand numbness. She still complaining from neck pain about 5/10 and states that's from her spine, neurologist on the case and patient may benefit from further testing of the cervical spine. She is hemodynamically stable and only mildly bradycardic secondary to thyroid hormone. CBC is unremarkable and received back to normal. Creatinine 1.5 but she did not receive much fluids last night, we will keep normal saline at 75 mL/h. Neurologist on the case. She remains on ceftriaxone for possible UTI and/or colitis. 09/03/2022 I discussed the case with the neurologist office today, patient MRI of the cervical spine showing severe spinal stenosis C3-C4, orthopedic surgery has been consulted and patient is started on Solu-Medrol 60 mg twice daily, and further recommendation to be followed by surgery team. Patient still complains from weakness in all 4 extremities with numbness in both hands and feet. This might contribute to the patient falling at home. Also patient underwent fecal disimpaction under surgical anesthesia today. She will continue getting the edema. This morning her abdomen was still distended and hopefully this will help her much. Patient urine culture came back negative. The patient finished her treatment for UTI and he can stop the antibiotics ceftriaxone Also her creatinine is stable at 1.5-1.6, looks like patient has chronic kidney disease stage III rather than acute kidney injury. Her levothyroxine is currently she is receiving 75 g daily. We'll keep the patient on IV fluid D5 normal saline as she still nothing by mouth 09/04/2022 Patient today awake alert, denies any new complaint, she still have numbness and weakness in both hands and feet and extremities. She was seen by orthopedic te am and she is currently on IV Solu-Medrol with a plan for possible surgical intervention in 2-3 days for her severe spinal stenosis of C3-C4, I discussed these with the patient and she is aware of this plan and she is agreeable. Because of all of these things and ask for cardiac evaluation for preop management. She is currently on levothyroxine increased to 75 g for his severe hypothyroidism, present on admission, we are going to check the thyroid function test tomorrow. In the meantime she remains also on some gentle hydration Surgical team are following the patient and she was started on lactulose today, she denies abdominal pain and her abdomen is significantly less distended than last 2 days but not completely resolved. Creatinine but at 1.4, low-calorie some replaced, low vitamin D is replaced as well. Patient denies any urinary symptoms 09/07/2022 Patient today is awake and alert, she is supposed to undergo cervical spine surgery with decompression and fusion for severe spinal stenosis at C3-C4 however patient has more severe abdominal distention and bowel obstruction both small and large secondary to fecal impaction while surgery team are following the case since admission and patient is status post fecal disimpaction on admission however today she has worsening bowel obstruction so patient felt to be high-risk for surgical intervention for her spinal stenosis and surgery was held with the recommendation of Gen. surgery, patient was made nothing by mouth with possible placement of NG tube for surgery team. Patient did not receive her oral levothyroxine 75 g, therefore we going to switch the dose and to IV medication and increase the dose to 100 g gradually and slowly as this might help her ileus and bowel obstruction. Today again I talked to the patient that is now endocrinology service in this facility and I recommended that she will be transferred to a tertiary care center however patient declined and she was stating this hospital. Labs showing mild leukocytosis, creatinine is stable at 1.4. Vital signs stable. She is not in pain and she still on IV fluids and IV Solu-Medrol 60 mg twice daily for her spinal stenosis CT of the abdomen and pelvis without contrast for abdominal distention showing 1. Remains marked amount of stool predominantly sigmoid with gaseous cavitation off upstream bowel which is now involving many loops of small bowel. disimpaction remains the recommendation. 2. Bilateral pleural effusion with anasarca and atelectasis. 3. Otero catheter in place. 4. Decrease in dilatation of the collecting system when compared to prior study Objective - Vital Signs Vital signs: Vital Signs Temp 97.7 F 09/07/22 11:15 Pulse 75 09/07/22 11:15 Resp 18 09/07/22 14:38 BP 143/89 09/07/22 11:15 Pulse Ox 94 L 09/07/22 11:15 FiO2 Intake & Output 09/06/22 09/07/22 09/07/22 18:59 06:59 18:59 Intake Total 240 Output Total 200 425 Balance -200 -185 Weight 79.379 kg Intake: Oral 240 Output: Urine 200 425 Other: Voiding Method Indwelling Catheter Indwelling Catheter Indwelling Catheter # Bowel Movements 1 - Exam -GENERAL: The patient is alert and oriented x3, not in any acute distress. Well developed, well nourished. Generally weak HEENT: Pupils are round and equally reacting to light. EOMI. No scleral icterus. No conjunctival pallor. Normocephalic, atraumatic. No pharyngeal erythema. No thyromegaly. CARDIOVASCULAR: S1 and S2 present. No murmurs, rubs, or gallops. PULMONARY: Chest is clear to auscultation, no wheezing or crackles. -ABDOMEN: Soft, nontender, distended, normoactive bowel sounds. No palpable organomegaly. MUSCULOSKELETAL: No joint swelling or deformity. EXTREMITIES: No cyanosis, clubbing, or pedal edema. NEUROLOGICAL: Gross neurological examination did not reveal any focal deficits. SKIN: No rashes. no petechiae. - Labs CBC & Chem 7: 09/07/22 11:13 09/07/22 11:13 Labs: Abnormal Lab Results - Last 24 Hours (Table) 09/05/22 09/07/22 09/07/22 Range/Units 10:19 11:13 11:13 WBC 11.9 H (3.8-10.6) k/uL MCV 102.4 H (80.0-100.0) fL Plt Count 129 L (150-450) k/uL Chloride 115 H (98-107) mmol/L Carbon Dioxide 12 L (22-30) mmol/L BUN 18 H (7-17) mg/dL Creatinine 1.48 H (0.52-1.04) mg/dL Glucose 126 H (74-99) mg/dL Calcium 7.5 L (8.4-10.2) mg/dL AST 37 H (14-36) U/L Total Protein 5.9 L (6.3-8.2) g/dL Albumin 3.2 L (3.5-5.0) g/dL Total T4 3.6 L (4.5 - 10.9) ug/dL Assessment and Plan Assessment: Hypothyroidism with TSH more than 100 and low T4 on admission, improving gradually Small bowel obstruction both large and small bowel secondary to fecal impaction Severe C3-C4 spinal stenosis with myelomalacia, requiring surgical intervention Hypocalcemia and low vitamin D Chronic kidney disease stage III rather than Acute kidney injury Possible acute urinary tract infection Versus asymptomatic bacteriuria . Finished treatment with antibiotic which is stopped. Generalized weakness secondary to above bilateral hands and feet numbness, chronic 1 month Noncompliance with medication and follow-up COPD, not an active issue Nicotine dependence Plan: Continue with bowel rest. Cervical spine surgery was held, resolution of her bowel obstruction Continue with normal saline Continue with levothyroxine Continue to placement of vitamin D and calcium Orthopedic team on the case with plan for surgical intervention of severe spinal stenosis at C3-C4 once she becomes medically stable Surgical consult team are following the patient closely for her bowel obstructiont, patient status post disimpaction again on 09/07 I offered patient to transfer her to a tertiary care center as we don't have outpatient services director in this facility, patient declined and she wants to stay here for treatment. Risks and benefits are explained for the patient and she verbalized understanding Labs and medication were reviewed.. Continue same treatment. Continue with symptomatic treatment. Resume home medication. Monitor labs and vitals. DVT and GI prophylaxis. Further recommendations as per clinical course of the patient DVT prophylaxis: Subcutaneous heparin GI Prophylaxis: Pepcid PT/OT: Pending Prognosis is guarded
--- NOTE | 2022-09-07 18:08 | XR ---
EXAMINATION TYPE: XR abdomen 1V DATE OF EXAM: 09/07/2022 4:51 PM INDICATION: Patient age:Female; 62 years old; Reason for study: CHECK NG TUBE PLACEMENT; COMPARISON: CT abdomen pelvis most recent on 09/06/2022. TECHNIQUE: One radiographic view of the abdomen was obtained. FINDINGS: Nasogastric tube enters below the diaphragm and turns 360 degrees and exits out of the [id number] superior aspect of the radiograph. Marked gaseous distention of the abdomen. IMPRESSION: 1. Nasogastric tube distal tip malpositioned with tubing turning 360 degrees and terminating in the esophagus. 2. Marked gaseous distention abdomen as seen on multiple prior CTs from patient's large stool burden . Fecal disimpaction is recommended.
--- NOTE | 2022-09-07 18:15 | XR ---
EXAMINATION TYPE: XR abdomen 1V DATE OF EXAM: 09/07/2022 COMPARISON: 09 07.2 HISTORY: NG tube placement TECHNIQUE: One view abdominal series FINDINGS: Markedly coiled tubing seen within the esophagus and upper abdomen. Numerous dilated bowel loops. Bisi vated hemidiaphragms. Subsegmental changes at the lung bases. Lower abdomen is not included in the fi eld-of-view. IMPRESSION: 1. Persistent markedly coiled NG tube within the suspected distal esophagus. 2. Severe high grade bowel obstruction suspected.
--- NOTE | 2022-09-07 18:37 | XR ---
EXAMINATION TYPE: XR abdomen 1V DATE OF EXAM: 09/07/2022 COMPARISON: Today HISTORY: Tube placement TECHNIQUE: FINDINGS: There is nasogastric tube that is looped in the gastric fundus. There is distended multiple loops of air-filled small bowel. IMPRESSION: Dilated small bowel consistent with ileus or mechanical obstruction and not changed compared to exam one hour ago. NG tube in good position in the gastric fundus.
[2022-09-07] MEDS: LEVOTHYROXINE IVP 100 MCG/5 ML VIAL IV SCH (20:29)
[2022-09-07] MEDS: FAMOTIDINE 20 MG/2 ML VIAL IV SCH (20:33)
[2022-09-08] MEDS: CALCIUM CARB-VIT D 500 MG-5 MCG TAB PO SCH ×3 (06:24→18:27)
[2022-09-08] MEDS ORDERED: LEVOTHYROXINE 75 MCG TAB PO SCH (06:30)
[2022-09-08 08:31] LABS: Basophils % (A) 0 %; Eosinophils % (A) 0 %; HCT 44.1 % (34.0-46.0); Lymphocytes # (A) 0.9 k/uL (1.0-4.8); Lymphocytes % (A) 6 %; MCH 34.1 pg (25.0-35.0); MCHC 34.1 g/dL (31.0-37.0); Macrocytosis Slight; Mean Platelet Volume 10.7; Monocytes # (A) 0.7 k/uL (0-1.0); Monocytes % (A) 5 %; Neutrophils # (A) 11.7 k/uL (1.3-7.7); Neutrophils % (A) 86 %; Platelet Count 115 k/uL (150-450); RBC 4.41 m/uL (3.80-5.40); RDW 14.4 % (11.5-15.5); WBC 13.6 k/uL (3.8-10.6)
[2022-09-08 08:34] LABS: Calcium 7.5 mg/dL (8.4-10.2); Potassium 3.6 mmol/L (3.5-5.1)
[2022-09-08] MEDS: methylPREDNISolone SOD SUCCI 125 MG/2 ML VIAL IV SCH ×2 (09:05→20:46)
[2022-09-08] MEDS: HEPARIN SODIUM,PORCINE/PF 5,000 UNIT/0.5 ML SYRINGE SQ SCH ×2 (09:05→20:46)
[2022-09-08] MEDS: LEVOTHYROXINE IVP 100 MCG/5 ML VIAL IV SCH (09:05)
[2022-09-08] MEDS: PYRIDOXINE 50 MG TAB PO SCH (09:06)
[2022-09-08] MEDS: SIMETHICONE 40 MG/0.6 ML DROPS 2,000 MG/30 ML BOTTLE PO SCH ×4 (09:06→20:47)
--- NOTE | 2022-09-08 10:10 | P.PN ---
Subjective This is a pleasant 62 years old female with past medical history of osteoarthritis, Patient presents because of increased weakness, numbness in her hands and feet Patient states that she feels weak for 4 months, however since yesterday she said she cannot walk because of her weakness, at baseline she uses a walker. She lives in apartment with her boyfriend. Also she reports chronic numbness in her hand and feet for about a month. She denies any other numbness, no blurred vision or slurred speech. No dizziness. She denies chest pain or dyspnea. However she states that she has headache about 5/10 of one day duration, but also she reports chronic pain in her neck. She denies chest pain or dyspnea, she had normal bowel movement no vomiting no abdominal pain or tenderness however her abdomen looks significantly distended. She smokes about half pack per day, she was counseled to quit she declines also she does not want nicotine patch. No alcohol or illicit drug. She says that she supposed to be on thyroid hormone replacement therapy but she stopped taking it for 1.5 years ago because she thought she does not needed. She states that she supposed to be on vitamin D, acid reflux disease and inhaler as she has history of COPD Vitas looks stable, patient is afebrile she is not hypothermic. Labs showing mild leukocytosis of 11.3. Rest of CBC, INR is unremarkable Creatinine is trending up 1.5, it was 1.2 about 10 days ago. Trace of BMP and liver enzymes were unremarkable. TSH is more than 100, free T4 is less than 0.15 EKG showing sinus rhythm with short [place] interval, T waves in the lateral limits. No significant ST-T changes Abdominal x-ray/KUB: Overall nonspecific but favor nonobstructive bowel gas pattern. Severe distal colonic fecal stasis is suspected. Chest x-ray: Cardiomegaly without acute pulmonary process serum cortisol is 14 in the emergency room patient received 1 dose of Cortef 100 mg as well as IV levothyroxine. Also she was started on normal saline 100 mL per hour. 09/02/2022 She's awake alert, she still feels generally weak. No chest pain or dyspnea. She denies specific urinary symptoms or abdominal pain or tenderness Patient with chronic bilateral feet and hand numbness. She still complaining from neck pain about 5/10 and states that's from her spine, neurologist on the case and patient may benefit from further testing of the cervical spine. She is hemodynamically stable and only mildly bradycardic secondary to thyroid hormone. CBC is unremarkable and received back to normal. Creatinine 1.5 but she did not receive much fluids last night, we will keep normal saline at 75 mL/h. Neurologist on the case. She remains on ceftriaxone for possible UTI and/or colitis. 09/03/2022 I discussed the case with the neurologist office today, patient MRI of the cervical spine showing severe spinal stenosis C3-C4, orthopedic surgery has been consulted and patient is started on Solu-Medrol 60 mg twice daily, and further recommendation to be followed by surgery team. Patient still complains from weakness in all 4 extremities with numbness in both hands and feet. This might contribute to the patient falling at home. Also patient underwent fecal disimpaction under surgical anesthesia today. She will continue getting the edema. This morning her abdomen was still distended and hopefully this will help her much. Patient urine culture came back negative. The patient finished her treatment for UTI and he can stop the antibiotics ceftriaxone Also her creatinine is stable at 1.5-1.6, looks like patient has chronic kidney disease stage III rather than acute kidney injury. Her levothyroxine is currently she is receiving 75 g daily. We'll keep the patient on IV fluid D5 normal saline as she still nothing by mouth 09/04/2022 Patient today awake alert, denies any new complaint, she still have numbness and weakness in both hands and feet and extremities. She was seen by orthopedic te am and she is currently on IV Solu-Medrol with a plan for possible surgical intervention in 2-3 days for her severe spinal stenosis of C3-C4, I discussed these with the patient and she is aware of this plan and she is agreeable. Because of all of these things and ask for cardiac evaluation for preop management. She is currently on levothyroxine increased to 75 g for his severe hypothyroidism, present on admission, we are going to check the thyroid function test tomorrow. In the meantime she remains also on some gentle hydration Surgical team are following the patient and she was started on lactulose today, she denies abdominal pain and her abdomen is significantly less distended than last 2 days but not completely resolved. Creatinine but at 1.4, low-calorie some replaced, low vitamin D is replaced as well. Patient denies any urinary symptoms 09/07/2022 Patient today is awake and alert, she is supposed to undergo cervical spine surgery with decompression and fusion for severe spinal stenosis at C3-C4 however patient has more severe abdominal distention and bowel obstruction both small and large secondary to fecal impaction while surgery team are following the case since admission and patient is status post fecal disimpaction on admission however today she has worsening bowel obstruction so patient felt to be high-risk for surgical intervention for her spinal stenosis and surgery was held with the recommendation of Gen. surgery, patient was made nothing by mouth with possible placement of NG tube for surgery team. Patient did not receive her oral levothyroxine 75 g, therefore we going to switch the dose and to IV medication and increase the dose to 100 g gradually and slowly as this might help her ileus and bowel obstruction. Today again I talked to the patient that is now endocrinology service in this facility and I recommended that she will be transferred to a tertiary care center however patient declined and she was stating this hospital. Labs showing mild leukocytosis, creatinine is stable at 1.4. Vital signs stable. She is not in pain and she still on IV fluids and IV Solu-Medrol 60 mg twice daily for her spinal stenosis CT of the abdomen and pelvis without contrast for abdominal distention showing 1. Remains marked amount of stool predominantly sigmoid with gaseous cavitation off upstream bowel which is now involving many loops of small bowel. disimpaction remains the recommendation. 2. Bilateral pleural effusion with anasarca and atelectasis. 3. Otero catheter in place. 4. Decrease in dilatation of the collecting system when compared to prior study 09/08/2022 Patient has multiple abdominal distention but no abdominal pain or tenderness, NG tube in place and there is about 350 ml of dark discharge in the bottle. She remains nothing by mouth Her levothyroxine switched 75 g which is equivalent to 100 g orally, so we increased the dose compared to yesterday (*it was 75 g oral daily). Her labs reviewed today. Creatinine is slightly up but she is on a fluid normal saline at 75 mL per hour and Otero catheter in place and she had no hypertension and no nephrotoxic medication so most likely is due to her abdominal distention. We'll keep monitoring her creatinine. Calcitonin is requested and is pending. Also patient remains on Solu-Medrol for her severe spinal stenosis at C3-C4 however decompression and fusion surgery was canceled yesterday because of her abdominal obstruction and ileus. Objective - Vital Signs Vital signs: Vital Signs Temp 97.9 F 09/08/22 09:01 Pulse 73 09/08/22 09:01 Resp 15 09/08/22 09:01 BP 145/95 09/08/22 09:01 Pulse Ox 95 09/08/22 09:01 FiO2 Intake & Output 09/07/22 09/08/22 09/08/22 18:59 06:59 18:59 Output Total 350 625 Balance -350 -625 Weight 79.379 kg Output: Gastric Drainage 350 Urine 625 Other: Voiding Method Indwelling Catheter Indwelling Catheter - Exam -GENERAL: The patient is alert and oriented x3, not in any acute distress. Well developed, well nourished. Generally weak HEENT: Pupils are round and equally reacting to light. EOMI. No scleral icterus. No conjunctival pallor. Normocephalic, atraumatic. No pharyngeal erythema. No thyromegaly. CARDIOVASCULAR: S1 and S2 present. No murmurs, rubs, or gallops. PULMONARY: Chest is clear to auscultation, no wheezing or crackles. -ABDOMEN: Soft, nontender, distended, normoactive bowel sounds. No palpable organomegaly. MUSCULOSKELETAL: No joint swelling or deformity. EXTREMITIES: No cyanosis, clubbing, or pedal edema. NEUROLOGICAL: Gross neurological examination did not reveal any focal deficits. SKIN: No rashes. no petechiae. - Labs CBC & Chem 7: 09/08/22 07:16 09/08/22 07:16 Labs: Abnormal Lab Results - Last 24 Hours (Table) 09/05/22 09/07/22 09/07/22 Range/Units 10:19 11:13 11:13 WBC 11.9 H (3.8-10.6) k/uL MCV 102.4 H (80.0-100.0) fL Plt Count 129 L (150-450) k/uL Neutrophils # (1.3-7.7) k/uL Lymphocytes # (1.0-4.8) k/uL Chloride 115 H (98-107) mmol/L Carbon Dioxide 12 L (22-30) mmol/L BUN 18 H (7-17) mg/dL Creatinine 1.48 H (0.52-1.04) mg/dL Glucose 126 H (74-99) mg/dL Calcium 7.5 L (8.4-10.2) mg/dL AST 37 H (14-36) U/L Total Protein 5.9 L (6.3-8.2) g/dL Albumin 3.2 L (3.5-5.0) g/dL Total T4 3.6 L (4.5 - 10.9) ug/dL 09/08/22 09/08/22 Range/Units 07:16 07:16 WBC 13.6 H (3.8-10.6) k/uL MCV (80.0-100.0) fL Plt Count 115 L (150-450) k/uL Neutrophils # 11.7 H (1.3-7.7) k/uL Lymphocytes # 0.9 L (1.0-4.8) k/uL Chloride 116 H (98-107) mmol/L Carbon Dioxide 19 L (22-30) mmol/L BUN 22 H (7-17) mg/dL Creatinine 1.70 H (0.52-1.04) mg/dL Glucose 131 H (74-99) mg/dL Calcium 7.5 L (8.4-10.2) mg/dL AST (14-36) U/L Total Protein (6.3-8.2) g/dL Albumin (3.5-5.0) g/dL Total T4 (4.5 - 10.9) ug/dL Assessment and Plan Assessment: Hypothyroidism with TSH more than 100 and low T4 on admission, improving gradually Small bowel obstruction both large and small bowel secondary to fecal impaction Severe C3-C4 spinal stenosis with myelomalacia, requiring surgical intervention Hypocalcemia and low vitamin D Chronic kidney disease stage III rather than Acute kidney injury Possible acute urinary tract infection Versus asymptomatic bacteriuria . Finished treatment with antibiotic which is stopped. Generalized weakness secondary to above bilateral hands and feet numbness, chronic 1 month Noncompliance with medication and follow-up COPD, not an active issue Nicotine dependence Plan: Continue with bowel rest. Cervical spine surgery was held, resolution of her bowel obstruction Continue with normal saline Keep NG tube in place Continue with levothyroxine Continue to placement of vitamin D and calcium Orthopedic team on the case with plan for surgical intervention of severe spinal stenosis at C3-C4 once she becomes medically stable Surgical consult team are following the patient closely for her bowel obstructiont, patient status post disimpaction again on 09/07 I offered patient to transfer her to a tertiary care center as we don't have desktop support specialist in this facility, patient declined and she wants to stay here for treatment. Risks and benefits are explained for the patient and she verbalized understanding Labs and medication were reviewed.. Continue same treatment. Continue with symptomatic treatment. Resume home medication. Monitor labs and vitals. DVT and GI prophylaxis. Further recommendations as per clinical course of the patient DVT prophylaxis: Subcutaneous heparin GI Prophylaxis: Pepcid PT/OT: Pending Prognosis is guarded
--- NOTE | 2022-09-08 12:38 | P.PN ---
Subjective Progress Note Date: 09/08/22 CHIEF COMPLAINT: Fecal impaction HISTORY OF PRESENT ILLNESS: Patient is status post sigmoidoscopy with fecal disimpaction on 09/03/22. Patient's abdomen continues to be very distended. NG tube placed yesterday with only 350 ML of dark output. Denies any bowel movement or flatus. Denies any abdominal pain. Denies any nausea. Afebrile. WBC is 13.6 Hgb 15 platelets 115 Na 145 potassium 3.6 creatinine 1.7 Patient seen and examined with Dr. coto PHYSICAL EXAM: VITAL SIGNS: Reviewed. GENERAL: Well-developed in no acute distress. HEENT: No sclera icterus. Extraocular movements grossly intact. Moist buccal mucosa. Head is atraumatic, normocephalic. ABDOMEN: Distended. firm. Nontender NEUROLOGIC: Alert and oriented. Cranial nerves II through XII grossly intact. ASSESSMENT: 1. Fecal impaction with ileus 2. Cervical myelopathy and severe cervical stenosis with disc herniation 3. Hypokalemia improved 4. Hypocalcemia 5. Hypothyroidism PLAN: -Computed tomography scan abdomen and pelvis with rectal contrast ordered for further evaluation patient's abdominal distention and rule out bowel obstruction -Continue NG tube for decompression -Nothing by mouth except for ice chips -Continue IV fluids -Increase patient's activity level. Have her sit at bedside chair. -Continue supportive care Physician Clinical Account Liaison note has been reviewed by physician. Signing provider agrees with the documented findings, assessment, and plan of care. Objective - Vital Signs Vital signs: Vital Signs Temp 97.9 F 09/08/22 09:01 Pulse 73 09/08/22 09:01 Resp 15 09/08/22 09:01 BP 145/95 09/08/22 09:01 Pulse Ox 95 09/08/22 09:01 FiO2 Intake & Output 09/07/22 09/08/22 09/08/22 18:59 06:59 18:59 Output Total 350 625 Balance -350 -625 Weight 79.379 kg Output: Gastric Drainage 350 Urine 625 Other: Voiding Method Indwelling Catheter Indwelling Catheter - Labs CBC & Chem 7: 09/08/22 07:16 09/08/22 07:16 Labs: Abnormal Lab Results - Last 24 Hours (Table) 09/05/22 09/07/22 09/07/22 Range/Units 10:19 11:13 11:13 WBC 11.9 H (3.8-10.6) k/uL MCV 102.4 H (80.0-100.0) fL Plt Count 129 L (150-450) k/uL Neutrophils # (1.3-7.7) k/uL Lymphocytes # (1.0-4.8) k/uL Chloride 115 H (98-107) mmol/L Carbon Dioxide 12 L (22-30) mmol/L BUN 18 H (7-17) mg/dL Creatinine 1.48 H (0.52-1.04) mg/dL Glucose 126 H (74-99) mg/dL Calcium 7.5 L (8.4-10.2) mg/dL AST 37 H (14-36) U/L Total Protein 5.9 L (6.3-8.2) g/dL Albumin 3.2 L (3.5-5.0) g/dL Total T4 3.6 L (4.5 - 10.9) ug/dL 09/08/22 09/08/22 Range/Units 07:16 07:16 WBC 13.6 H (3.8-10.6) k/uL MCV (80.0-100.0) fL Plt Count 115 L (150-450) k/uL Neutrophils # 11.7 H (1.3-7.7) k/uL Lymphocytes # 0.9 L (1.0-4.8) k/uL Chloride 116 H (98-107) mmol/L Carbon Dioxide 19 L (22-30) mmol/L BUN 22 H (7-17) mg/dL Creatinine 1.70 H (0.52-1.04) mg/dL Glucose 131 H (74-99) mg/dL Calcium 7.5 L (8.4-10.2) mg/dL AST (14-36) U/L Total Protein (6.3-8.2) g/dL Albumin (3.5-5.0) g/dL Total T4 (4.5 - 10.9) ug/dL
--- NOTE | 2022-09-08 12:44 | P.PN ---
Progress Note - Text Progress Note Date: 09/08/22 Orthopedic spine: History of present illness: Patient is a pleasant 62-year-old female who is seen and examined at bedside for follow up evaluation in regards to her cervical spine. She is known have cervical myelopathy with upper extremity lower extremity weakness. She has not noticed significant change in her weakness during her admission to the hospital. She is not currently complaining of upper extremity radiculopathy. Patient was scheduled for surgical intervention at her cervical spine today with a C3-4 and C4-5 anterior cervical decompression and fusion. Currently, this surgical intervention is on hold. Patient is currently being treated for severe ileus with fecal impaction. Since being seen and examined yesterday she has had an NG tube placed. She is not cleared from general surgery to proceed forward with surgical intervention at her cervical spine. Patient is currently scheduled to continue with soaks enema and bowel prep. Continues to be seen and examined by medicine. Physical exam: Patient is awake, alert, and oriented 3 Vital signs stable Adequate chest excursion with deep inspiration and expiration Examination of the cervical spine reveals skin is intact with no abrasions, lacerations, or bruises; no erythema, purulence or signs of infection Full range of motion of the cervical spine with adequate flexion, extension, and bilateral rotation Quarter Doper strength, thumb strength, interosseous strength, biceps strength, triceps strength, and shoulder strength positive sustained bilaterally but generally weaker Upper extremity strength 4/5 bilaterally including biceps, triceps, jira administrator, and shoulder abduction bilaterally Hoffmans sign positive upper extremity bilaterally Assessment: Cervical myelopathy Cervical myelomalacia behind C3-4 Severe cervical stenosis C3-4 with disc herniation and stenosis C4-5 Moderate cervical stenosis C5-6 and C6-7 with disc degeneration Upper extremity radiculopathy with weakness due in part to cervical myelopathy Positive Faye's sign bilaterally Lower extremity weakness likely due in part to cervical myelopathy Difficulty ambulating Severe ileus and fecal impaction History of hypothyroid Plan: 1. Patient continues to have upper extremity and lower extremity weakness. She has difficulty mobility and has been afraid to ambulate for fear of falling. She continues to have upper extremity weakness as well and states she has dropped things out of her hands. She is able to perform active range of motion of bilateral upper extremities independently today but she does seem generally weaker. We did discuss he has significant changes at her cervical spine most significant at C3-4 and C4-5 with evidence of cervical myelomalacia behind C3-4. She also has stenosis at C4-5. She states she was previously diagnosed with cervical stenosis but did not have specific treatment at that time. She has not had significant improvement of her symptoms since her admission to the hospital. She was scheduled to undergo a C3-4 and C4-5 anterior cervical decompression and fusion today. However, she has not been cleared for surgical intervention as she currently has severe ileus and fecal impaction. She currently has an NG tube in place. She is being treated by general surgery. She is not cleared for surgery for her cervical spine by general surgery due to her ileus. We did discuss we will plan to proceed forward with surgical intervention at her cervical spine when she is cleared by general surgery and medicine for surgical intervention. It was discussed with her in detail that currently we would have her continue with conservative treatment options until cleared for surgical intervention. We have previously discussed in detail given the significant changes at her cervical spine that surgical intervention could provide some improvement of her symptoms but that some of her symptoms from a cervical spine standpoint will most likely remain permanent and will not completely subside. We did discuss given the severity of her stenosis and that surgical intervention to decompress her spinal cord is trying to also prevent further damage to her cord. Patient states she does want to proceed forward with surgical intervention when medically cleared. We will continue to follow the patient closely and we'll plan to proceed forward with surgical intervention when cleared. 2. Patient will continue to be seen by general surgery for her severe ileus and fecal impaction and will continue with soaks enema and bowel prep per their recommendations 3. Patient will continue to be seen and examined by other medical providers during her admission to the hospital for her other medical diagnoses.
[2022-09-08] MEDS: DEXTROSE 5%-0.9% NACL 1,000 ML IV SCH (14:07)
--- NOTE | 2022-09-08 15:58 | CT ---
EXAMINATION TYPE: CT abdomen pelvis wo con DATE OF EXAM: 09/08/2022 COMPARISON: 09/06/2022 HISTORY: 62-year-old female persistent Abdominal distension, possible obstruction CT DLP: 681.2 mGycm. Automated exposure control for dose reduction was used. TECHNIQUE: Contiguous axial scanning of the abdomen and pelvis without IV contrast. Coronal and sagit alexys reconstructions performed. Rectal contrast was administered. FINDINGS: chief medical technologist reports no difficulty in passing the tube or inflating the balloon. However, the tube appears anteriorly positioned adjacent to the Otero catheter. The tip terminates at the level of the perineum. Persistent severe distention of the rectum with stool up to 11.2 cm wide, not significantl y changed. Circumferential rectal wall thickening is similar. Persistent increasing marked generalized anasarca change. Persistent marked distention of the colon measuring up to 13.1 cm. New dilatation of small bowel loops now not to 4.0 cm. Prominent air-fluid levels throughout. Dense mitral annular calcifications and scattered coronary artery calcifications. NG tube is in place . Ongoing small bilateral pleural effusions with adjacent atelectasis. Annual mild perihepatic ascites. Otero catheter is in place. Kidneys, spleen, pancreas, and liver show no gross evidence of a noncontrast technique. [place] smal l 4 mm gallstone. Bones: Diffuse heterogeneity of the osseous structures may be due to marked osteopenia. There is disc osteophyte complex and L2-L3 that may contribute to a moderate or severe focal spinal canal stenosis . IMPRESSION: 1. chief medical technologist reports no difficulty in passing the rectal tube or inflating the balloon. Howeve r, the tube appears anteriorly positioned adjacent to the Otero catheter, cannulating either the uret hra or vagina. The technologist does report some resistance in administering the rectal contrast. No contrast is seen within the colon or intra-abdominal space. 2. Persistent severe distention of the rectum and distal sigmoid with stool up to 11.2 cm wide, not significant change. Persistent circumferential rectal wall thickening. 3. Increasing severe generalized anasarca change. Ongoing small bilateral pleural effusions. New mil d perihepatic ascites. 4. Ongoing pancolonic dilatation up to 13.1 cm. Increasing dilatation of small bowel loops now to 4. 0 cm. Consider severe generalized ileus. Correlate with findings during fecal disimpaction to exclude distal rectal obstruction. Recommend cleansing enema.
[2022-09-08 16:32] LABS: Ionized Calcium 4.8 mg/dL (4.5-5.3)
[2022-09-08 16:46] LABS: Magnesium 1.9 mg/dL (1.6-2.3); Phosphorus 4.3 mg/dL (2.5-4.5)
[2022-09-08] MEDS: FAMOTIDINE 20 MG/2 ML VIAL IV SCH (20:46)
[2022-09-09] MEDS: CALCIUM CARB-VIT D 500 MG-5 MCG TAB PO SCH ×3 (02:42→16:23)
[2022-09-09] MEDS: DEXTROSE 5%-0.9% NACL 1,000 ML IV SCH (02:42)
[2022-09-09 07:37] LABS: Basophils % (A) 0 %; Eosinophils % (A) 0 %; Hypochromasia Slight; Lymphocytes # (A) 0.6 k/uL (1.0-4.8); Lymphocytes % (A) 6 %; MCH 33.6 pg (25.0-35.0); MCHC 32.6 g/dL (31.0-37.0); MCV 103.2 fL (80.0-100.0); Macrocytosis Slight; Mean Platelet Volume 9.3; Monocytes # (A) 0.5 k/uL (0-1.0); Monocytes % (A) 5 %; Neutrophils # (A) 8.6 k/uL (1.3-7.7); Neutrophils % (A) 88 %; Platelet Count 142 k/uL (150-450); RBC 3.88 m/uL (3.80-5.40); RDW 14.1 % (11.5-15.5); WBC 9.8 k/uL (3.8-10.6)
[2022-09-09 07:55] LABS: Magnesium 1.8 mg/dL (1.6-2.3); Phosphorus 4.2 mg/dL (2.5-4.5); Potassium 3.4 mmol/L (3.5-5.1)
[2022-09-09] MEDS: PYRIDOXINE 50 MG TAB PO SCH (08:55)
[2022-09-09] MEDS: SIMETHICONE 40 MG/0.6 ML DROPS 2,000 MG/30 ML BOTTLE PO SCH ×4 (08:55→21:43)
[2022-09-09] MEDS: methylPREDNISolone SOD SUCCI 125 MG/2 ML VIAL IV SCH ×2 (09:00→21:39)
[2022-09-09] MEDS: HEPARIN SODIUM,PORCINE/PF 5,000 UNIT/0.5 ML SYRINGE SQ SCH ×2 (09:00→21:38)
[2022-09-09] MEDS: LEVOTHYROXINE IVP 100 MCG/5 ML VIAL IV SCH (09:01)
[2022-09-09] MEDS: POTASSIUM CHLORIDE 10 MEQ in WATER FOR INJECTION 1 100ML.BAG IVPB SCH ×3 (09:01→11:56)
[2022-09-09] MEDS ORDERED: LIDOCAINE 1% INJ 10MG/ML (5 ML VIAL-PF) SQ ONE (09:41)
--- NOTE | 2022-09-09 10:47 | IR ---
PICC LINE PLACEMENT: HISTORY: Infection requiring long-term antibiotic therapy PROCEDURE: Ultrasound and fluoroscopic guidance of PICC line placement. COMPLICATIONS: None ANESTHESIA: 1. 1% Lidocaine locally. FINDINGS/TECHNIQUE: The procedure was explained to the patient. The risks, complications, benefits and alternatives were discussed and any questions were answered. Informed consent was obtained. The patient was placed supine on the fluoroscopic table and prepped and draped in the usual sterile fash ion. Utilizing a 21 gauge needle and sonographic and fluoroscopic guidance, access in the left ceph alic vein was achieved and there is placement of a 0.018 guidewire. The vein is patent. A 4-F sheat h was placed over the guidewire. The guidewire and dilator were removed and a 4-F. PICC line was adriana brenda through the sheath with the tip at the level of the SVC. The sheath was removed, the catheter wa s flushed and sutured into position. The patient was stable throughout the procedure and remained st able upon discharge from the Department of Radiology. The vein puncture was patent under ultrasound. A duke scale image was obtained to document patency of the vein punctured. All elements of the maximal barrier technique were utilized. FLUOROSCOPY TIME: 0.1 minutes and 1 images submitted. IMPRESSION: Successful PICC line placement under ultrasound and fluoroscopic guidance.
[2022-09-09] MEDS ORDERED: FUROSEMIDE 10 MG/ML 4 ML VIAL IV STA (11:16)
--- NOTE | 2022-09-09 11:19 | P.NPCON ---
History of Present Illness - Reason for Consult acute renal failure - History of Present Illness Reason for consult: Acute kidney injury History of present illness: Patient is a 62-year-old female seen in renal consultation for acute kidney injury. Patient's creatinine as of 08/23/2022 was 1.26 and has been stable mostly in the range of 1.5-1.6 this admission. Yesterday was up to 1.7 and today is 1.8. Patient presented to the hospital on 09/01/2022 with weakness and shortness of breath as well as constipation going on for about [address] of the abdomen and pelvis showed mild hydronephrosis from large stool burden. Patient is being followed by general surgery and underwent fecal disimpaction on 09/03/2022. She underwent more CAT scans this admission with most recent one done 09/08/2022 which showed severe distention of the rectum and distal sigmoid. Anasarca change and small effusions were noted. Patient had PICC line placed this morning and will be started on TPN. She currently has an NG tube for decompression. She was also noted to be severely hypothyroid this admission with TSH over 100 and low T4. She is maintained on IV Synthroid at this time. Echocardiogram done this admission showed preserved ejection fraction. Vital signs are stable. General: Awake. No acute distress. HEENT: Head exam is unremarkable. NG tube noted. LUNGS: Breath sounds decreased. HEART: Rate and Rhythm are regular. ABDOMEN: Distention noted. EXTREMITITES: No edema. Past Medical History Past Medical History: COPD, Osteoarthritis (OA), Thyroid Disorder History of Any Multi-Drug Resistant Organisms: None Reported Past Surgical History: No Surgical Hx Reported Past Psychological History: No Psychological Hx Reported Smoking Status: Current every day smoker Past Alcohol Use History: None Reported Past Drug Use History: None Reported - Past Family History Mother History Unknown: Yes Medications and Allergies Home Medications Medication Instructions Recorded Confirmed Type No Known Home Medications 09/01/22 09/01/22 History Allergies Allergy/AdvReac Type Severity Reaction Status Date / Time No Known Allergies Allergy Verified 09/01/22 09:50 Physical Exam Vitals: Vital Signs Temp Pulse Pulse Resp BP Pulse Ox 09/09/22 08:54 65 15 176/81 97 09/09/22 04:13 97.7 F 68 16 152/88 95 12/07/22 02:00 18 09/08/22 23:48 98.1 F 72 16 150/90 96 09/08/22 20:00 18 09/08/22 19:40 98.0 F 71 16 155/92 95 09/08/22 17:15 98.0 F 61 16 169/90 95 09/08/22 12:04 71 15 154/85 96 09/08/22 11:57 96 15 138/74 92 L Intake and Output 09/08/22 09/09/22 09/09/22 22:59 06:59 14:59 Intake Total 10 10 Output Total 50 375 Balance -40 -365 Intake: IV 10 10 Invasive Line 3 10 10 Output: Gastric Drainage 50 Urine 375 Other: Voiding Method Indwelling Catheter Indwelling Catheter Results - Lab Results Most recent lab results Calcium 7.0 mg/dL (8.4-10.2) L 09/09/22 06:49 Phosphorus 4.2 mg/dL (2.5-4.5) 09/09/22 06:49 Magnesium 1.8 mg/dL (1.6-2.3) 09/09/22 06:49 09/09/22 06:49 09/09/22 06:49 Assessment and Plan Plan: Assessment: 1. Acute kidney injury secondary to ATN secondary to hypovolemia. Patient has received IV fluids. Now appears a little hypervolemic with anasarca changes and pleural effusions on CAT scan. Creatinine 1.88 today. No hydronephrosis noted on recent CAT scan. 2. Chronic kidney disease. Creatinine as of 08/23/2022 was 1.26. Etiology is nephrosclerosis. Establish baseline renal function. 3. Hypokalemia from poor intake. 4. Metabolic acidosis secondary to acute kidney injury. 5. Fecal impaction with ileus. 6. Severe hypothyroidism maintained on Synthroid. 7. Fluid overload. Plan: Potassium being replaced. TPN to be started today. Lasix 40 mg IV once today. Hep-Lock IV fluids. Check bladder pressure. Continue to monitor renal function and urine output. Thank you for the consultation. I will continue to follow the patient with you during her hospital stay.
[2022-09-09] MEDS ORDERED: [UNRECOGNIZED DRUG - REMARK] IV SCH ×8 (12:00)
--- NOTE | 2022-09-09 14:05 | P.PN ---
Subjective Progress Note Date: 09/09/22 CHIEF COMPLAINT: Fecal impaction HISTORY OF PRESENT ILLNESS: Patient is status post sigmoidoscopy with fecal disimpaction on 09/03/22. Patient's abdomen continues to be distended. Slightly softer today. She did have a bowel movement. She is having flatus. She denies any nausea. NG tube with 500 mL bile output. Afebrile. WBC is down from 13.6 to 9.8H beets 13 142 sons 142 potassium 3.4 creatinine is 1.8 magnesium is 1.9 phosphorus 4.2 patient received PICC line in his been started on TPN. Computed tomography scan with rectal contrast. Contrast was administered into the vagina and not rectum. Persistent severe distention of the rectum and distal sigmoid with stool up to 11.2 cm wide. Not significant change. Persistent circumferential rectal wall thickening. Increasing severe generalized anasarca. Ongoing small bilateral pleural effusions. Mild perihepatic ascites. Ongoing pancolonic dilation up to 13.1 cm increasing dilation of small bowel loops now to 4.0 cm. Consider severe generalized ileus. Correlate with findings during fecal disimpaction to exclude a rectal obstruction. Recommend cleansing enema. Patient seen and examined with Dr. coto PHYSICAL EXAM: VITAL SIGNS: Reviewed. GENERAL: Well-developed in no acute distress. HEENT: No sclera icterus. Extraocular movements grossly intact. Moist buccal mucosa. Head is atraumatic, normocephalic. ABDOMEN: Distended. firm. Nontender NEUROLOGIC: Alert and oriented. Cranial nerves II through XII grossly intact. ASSESSMENT: 1. Fecal impaction with ileus 2. Cervical myelopathy and severe cervical stenosis with disc herniation 3. Hypokalemia improved 4. Hypocalcemia 5. Hypothyroidism PLAN: -Continue NG tube for decompression -Add Reglan -Soapsuds enemas ordered 3 -Nothing by mouth except for ice chips -Continue TPN for nutrition support -Increase patient's activity level -Continue supportive care Physician Venipuncturist note has been reviewed by physician. Signing provider agrees with the documented findings, assessment, and plan of care. Objective - Vital Signs Vital signs: Vital Signs Temp 97.7 F 09/09/22 04:13 Pulse 66 09/09/22 11:54 Resp 15 09/09/22 11:54 BP 140/78 09/09/22 11:54 Pulse Ox 95 09/09/22 11:54 FiO2 Intake & Output 09/08/22 09/09/22 09/09/22 18:59 06:59 18:59 Intake Total 20 10 Output Total 50 375 500 Balance -94 -018 -672 Weight 79.379 kg Intake: IV 20 10 Invasive Line 3 20 10 Output: Gastric Drainage 50 Urine 375 500 Other: Voiding Method Indwelling Catheter Indwelling Catheter Indwelling Catheter # Bowel Movements 1 - Labs CBC & Chem 7: 09/09/22 06:49 09/09/22 06:49 Labs: Abnormal Lab Results - Last 24 Hours (Table) 09/08/22 09/09/22 09/09/22 Range/Units 15:41 06:49 06:49 MCV 103.2 H (80.0-100.0) fL Plt Count 142 L (150-450) k/uL Neutrophils # 8.6 H (1.3-7.7) k/uL Lymphocytes # 0.6 L (1.0-4.8) k/uL Potassium 3.4 L (3.5-5.1) mmol/L Chloride 116 H (98-107) mmol/L Carbon Dioxide 19 L (22-30) mmol/L BUN 25 H (7-17) mg/dL Creatinine 1.88 H (0.52-1.04) mg/dL Glucose 276 H (74-99) mg/dL Calcium 7.0 L (8.4-10.2) mg/dL Triglycerides 271.00 H (0.00-149.00) mg/dL
--- NOTE | 2022-09-09 16:09 | P.PN ---
Subjective This is a pleasant 62 years old female with past medical history of osteoarthritis, Patient presents because of increased weakness, numbness in her hands and feet Patient states that she feels weak for 4 months, however since yesterday she said she cannot walk because of her weakness, at baseline she uses a walker. She lives in apartment with her boyfriend. Also she reports chronic numbness in her hand and feet for about a month. She denies any other numbness, no blurred vision or slurred speech. No dizziness. She denies chest pain or dyspnea. However she states that she has headache about 5/10 of one day duration, but also she reports chronic pain in her neck. She denies chest pain or dyspnea, she had normal bowel movement no vomiting no abdominal pain or tenderness however her abdomen looks significantly distended. She smokes about half pack per day, she was counseled to quit she declines also she does not want nicotine patch. No alcohol or illicit drug. She says that she supposed to be on thyroid hormone replacement therapy but she stopped taking it for 1.5 years ago because she thought she does not needed. She states that she supposed to be on vitamin D, acid reflux disease and inhaler as she has history of COPD Vitas looks stable, patient is afebrile she is not hypothermic. Labs showing mild leukocytosis of 11.3. Rest of CBC, INR is unremarkable Creatinine is trending up 1.5, it was 1.2 about 10 days ago. Trace of BMP and liver enzymes were unremarkable. TSH is more than 100, free T4 is less than 0.15 EKG showing sinus rhythm with short MS interval, T waves in the lateral limits. No significant ST-T changes Abdominal x-ray/KUB: Overall nonspecific but favor nonobstructive bowel gas pattern. Severe distal colonic fecal stasis is suspected. Chest x-ray: Cardiomegaly without acute pulmonary process serum cortisol is 14 in the emergency room patient received 1 dose of Cortef 100 mg as well as IV levothyroxine. Also she was started on normal saline 100 mL per hour. 09/02/2022 She's awake alert, she still feels generally weak. No chest pain or dyspnea. She denies specific urinary symptoms or abdominal pain or tenderness Patient with chronic bilateral feet and hand numbness. She still complaining from neck pain about 5/10 and states that's from her spine, neurologist on the case and patient may benefit from further testing of the cervical spine. She is hemodynamically stable and only mildly bradycardic secondary to thyroid hormone. CBC is unremarkable and received back to normal. Creatinine 1.5 but she did not receive much fluids last night, we will keep normal saline at 75 mL/h. Neurologist on the case. She remains on ceftriaxone for possible UTI and/or colitis. 09/03/2022 I discussed the case with the neurologist office today, patient MRI of the cervical spine showing severe spinal stenosis C3-C4, orthopedic surgery has been consulted and patient is started on Solu-Medrol 60 mg twice daily, and further recommendation to be followed by surgery team. Patient still complains from weakness in all 4 extremities with numbness in both hands and feet. This might contribute to the patient falling at home. Also patient underwent fecal disimpaction under surgical anesthesia today. She will continue getting the edema. This morning her abdomen was still distended and hopefully this will help her much. Patient urine culture came back negative. The patient finished her treatment for UTI and he can stop the antibiotics ceftriaxone Also her creatinine is stable at 1.5-1.6, looks like patient has chronic kidney disease stage III rather than acute kidney injury. Her levothyroxine is currently she is receiving 75 g daily. We'll keep the patient on IV fluid D5 normal saline as she still nothing by mouth 09/04/2022 Patient today awake alert, denies any new complaint, she still have numbness and weakness in both hands and feet and extremities. She was seen by orthopedic te am and she is currently on IV Solu-Medrol with a plan for possible surgical intervention in 2-3 days for her severe spinal stenosis of C3-C4, I discussed these with the patient and she is aware of this plan and she is agreeable. Because of all of these things and ask for cardiac evaluation for preop management. She is currently on levothyroxine increased to 75 g for his severe hypothyroidism, present on admission, we are going to check the thyroid function test tomorrow. In the meantime she remains also on some gentle hydration Surgical team are following the patient and she was started on lactulose today, she denies abdominal pain and her abdomen is significantly less distended than last 2 days but not completely resolved. Creatinine but at 1.4, low-calorie some replaced, low vitamin D is replaced as well. Patient denies any urinary symptoms 09/07/2022 Patient today is awake and alert, she is supposed to undergo cervical spine surgery with decompression and fusion for severe spinal stenosis at C3-C4 however patient has more severe abdominal distention and bowel obstruction both small and large secondary to fecal impaction while surgery team are following the case since admission and patient is status post fecal disimpaction on admission however today she has worsening bowel obstruction so patient felt to be high-risk for surgical intervention for her spinal stenosis and surgery was held with the recommendation of Gen. surgery, patient was made nothing by mouth with possible placement of NG tube for surgery team. Patient did not receive her oral levothyroxine 75 g, therefore we going to switch the dose and to IV medication and increase the dose to 100 g gradually and slowly as this might help her ileus and bowel obstruction. Today again I talked to the patient that is now endocrinology service in this facility and I recommended that she will be transferred to a tertiary care center however patient declined and she was stating this hospital. Labs showing mild leukocytosis, creatinine is stable at 1.4. Vital signs stable. She is not in pain and she still on IV fluids and IV Solu-Medrol 60 mg twice daily for her spinal stenosis CT of the abdomen and pelvis without contrast for abdominal distention showing 1. Remains marked amount of stool predominantly sigmoid with gaseous cavitation off upstream bowel which is now involving many loops of small bowel. disimpaction remains the recommendation. 2. Bilateral pleural effusion with anasarca and atelectasis. 3. Otero catheter in place. 4. Decrease in dilatation of the collecting system when compared to prior study 09/08/2022 Patient has multiple abdominal distention but no abdominal pain or tenderness, NG tube in place and there is about 350 ml of dark discharge in the bottle. She remains nothing by mouth Her levothyroxine switched 75 g which is equivalent to 100 g orally, so we increased the dose compared to yesterday (*it was 75 g oral daily). Her labs reviewed today. Creatinine is slightly up but she is on a fluid normal saline at 75 mL per hour and Otero catheter in place and she had no hypertension and no nephrotoxic medication so most likely is due to her abdominal distention. We'll keep monitoring her creatinine. Calcitonin is requested and is pending. Also patient remains on Solu-Medrol for her severe spinal stenosis at C3-C4 however decompression and fusion surgery was canceled yesterday because of her abdominal obstruction and ileus. 09/09/2022 Patient is still have significant abdominal distention with NG tube in a Place Gama dark secretion. Abdomen less distended slightly compared to yesterday. Still no abdominal pain or tenderness. No significant bowel movement. Patient of PICC line and TPN was started today Her creatinine is trending up 1.8 today, nephrology consult evaluated the patient today, patient currently off IV fluid and she received one dose of IV Lasix 40 mg. She is also on levothyroxine 75 g. Telemetry some improvement, vitals are stable. Objective - Vital Signs Vital signs: Vital Signs Temp 97.7 F 09/09/22 04:13 Pulse 66 09/09/22 11:54 Resp 15 09/09/22 11:54 BP 140/78 09/09/22 11:54 Pulse Ox 95 09/09/22 11:54 FiO2 Intake & Output 09/08/22 09/09/22 09/09/22 18:59 06:59 18:59 Intake Total 20 10 Output Total 50 375 Balance -50 -355 10 Weight 79.379 kg Intake: IV 20 10 Invasive Line 3 20 10 Output: Gastric Drainage 50 Urine 375 Other: Voiding Method Indwelling Catheter Indwelling Catheter Indwelling Catheter - Exam -GENERAL: The patient is alert and oriented x3, not in any acute distress. Well developed, well nourished. Generally weak HEENT: Pupils are round and equally reacting to light. EOMI. No scleral icterus. No conjunctival pallor. Normocephalic, atraumatic. No pharyngeal erythema. No thyromegaly. CARDIOVASCULAR: S1 and S2 present. No murmurs, rubs, or gallops. PULMONARY: Chest is clear to auscultation, no wheezing or crackles. -ABDOMEN: Soft, nontender, distended, normoactive bowel sounds. No palpable organomegaly. MUSCULOSKELETAL: No joint swelling or deformity. EXTREMITIES: No cyanosis, clubbing, or pedal edema. NEUROLOGICAL: Gross neurological examination did not reveal any focal deficits. SKIN: No rashes. no petechiae. - Labs CBC & Chem 7: 09/09/22 06:49 09/09/22 06:49 Labs: Abnormal Lab Results - Last 24 Hours (Table) 09/08/22 09/09/22 09/09/22 Range/Units 15:41 06:49 06:49 MCV 103.2 H (80.0-100.0) fL Plt Count 142 L (150-450) k/uL Neutrophils # 8.6 H (1.3-7.7) k/uL Lymphocytes # 0.6 L (1.0-4.8) k/uL Potassium 3.4 L (3.5-5.1) mmol/L Chloride 116 H (98-107) mmol/L Carbon Dioxide 19 L (22-30) mmol/L BUN 25 H (7-17) mg/dL Creatinine 1.88 H (0.52-1.04) mg/dL Glucose 276 H (74-99) mg/dL Calcium 7.0 L (8.4-10.2) mg/dL Triglycerides 271.00 H (0.00-149.00) mg/dL Assessment and Plan Assessment: Hypothyroidism with TSH more than 100 and low T4 on admission, improving gradually Small bowel obstruction both large and small bowel secondary to fecal impaction Severe C3-C4 spinal stenosis with myelomalacia, requiring surgical intervention Hypocalcemia and low vitamin D, improved Acute kidney injury with worsening creatinine Chronic kidney disease stage III Possible acute urinary tract infection Versus asymptomatic bacteriuria . Finished treatment with antibiotic which is stopped. Generalized weakness secondary to above bilateral hands and feet numbness, chronic 1 month Noncompliance with medication and follow-up COPD, not an active issue Nicotine dependence Plan: Continue with bowel rest. Cervical spine surgery was held till resolution of her bowel obstruction continue with TPN. Discontinue IV fluids surgical team will follow the patient closely Keep NG tube in place Continue with levothyroxine Continue to placement of vitamin D and calcium Nephrology consult Orthopedic team on the case with plan for surgical intervention of severe spinal stenosis at C3-C4 once she becomes medically stable again on 09/07 I offered patient to transfer her to a tertiary care center as we don't have garageman in this facility, patient declined and she wants to stay here for treatment. Risks and benefits are explained for the patient and she verbalized understanding Labs and medication were reviewed.. Continue same treatment. Continue with symptomatic treatment. Resume home medication. Monitor labs and vitals. DVT and GI prophylaxis. Further recommendations as per clinical course of the patient DVT prophylaxis: Subcutaneous heparin GI Prophylaxis: Pepcid PT/OT: Pending Prognosis is guarded
[2022-09-09] MEDS: METOCLOPRAMIDE 5 MG/ML 2 ML VIAL IVP SCH ×3 (17:04→23:41)
[2022-09-09] MEDS: FAMOTIDINE 20 MG/2 ML VIAL IV SCH (21:39)
[2022-09-10] MEDS: CALCIUM CARB-VIT D 500 MG-5 MCG TAB PO SCH ×3 (06:09→16:51)
[2022-09-10] MEDS: METOCLOPRAMIDE 5 MG/ML 2 ML VIAL IVP SCH ×3 (06:29→18:18)
[2022-09-10 08:35] LABS: Calcium 7.5 mg/dL (8.4-10.2); Magnesium 1.8 mg/dL (1.6-2.3); Phosphorus 3.8 mg/dL (2.5-4.5); Potassium 3.4 mmol/L (3.5-5.1); Total Bilirubin 0.6 mg/dL (0.2-1.3); Total Protein 5.3 g/dL (6.3-8.2)
[2022-09-10] MEDS: SIMETHICONE 40 MG/0.6 ML DROPS 2,000 MG/30 ML BOTTLE PO SCH ×4 (09:59→20:55)
[2022-09-10] MEDS: PYRIDOXINE 50 MG TAB PO SCH (09:59)
[2022-09-10] MEDS: FAT EMULSION 20% 250 ML in EMPTY BAG 1 BAG IV SCH (10:03)
[2022-09-10] MEDS: HEPARIN SODIUM,PORCINE/PF 5,000 UNIT/0.5 ML SYRINGE SQ SCH ×2 (10:04→20:54)
[2022-09-10] MEDS: LEVOTHYROXINE IVP 100 MCG/5 ML VIAL IV SCH (10:04)
[2022-09-10] MEDS: methylPREDNISolone SOD SUCCI 125 MG/2 ML VIAL IV SCH ×2 (10:05→20:54)
[2022-09-10] MEDS ORDERED: [UNRECOGNIZED DRUG - REMARK] IV SCH ×24 (10:15→16:00)
[2022-09-10] MEDS ORDERED: FUROSEMIDE 10 MG/ML 4 ML VIAL IV STA (11:03)
--- NOTE | 2022-09-10 11:04 | P.PN ---
Subjective Patient is seen in follow-up for acute kidney injury. Renal function stable. Urine output improved post IV Lasix given yesterday. Receiving TPN. Vital signs are stable. General: Awake. No acute distress. HEENT: NG tube noted. LUNGS: Breath sounds decreased. HEART: Rate and Rhythm are regular. ABDOMEN: Soft, distention noted. EXTREMITITES: Trace edema. Objective - Vital Signs Vital signs: Vital Signs Temp 97.7 F 09/10/22 04:31 Pulse 69 09/10/22 04:31 Resp 14 09/10/22 04:31 BP 146/88 09/10/22 04:31 Pulse Ox 93 L 09/10/22 04:31 FiO2 Intake & Output 09/09/22 09/10/22 09/10/22 18:59 06:59 18:59 Intake Total 10 Output Total 1500 1375 Balance -1490 -1375 Intake: IV 10 Invasive Line 3 10 Output: Gastric Drainage 200 Urine 1500 1175 Other: Voiding Method Indwelling Catheter Indwelling Catheter # Bowel Movements 1 - Labs CBC & Chem 7: 09/09/22 06:49 09/10/22 06:47 Labs: Abnormal Lab Results - Last 24 Hours (Table) 09/10/22 Range/Units 06:47 Potassium 3.4 L (3.5-5.1) mmol/L Chloride 110 H (98-107) mmol/L BUN 32 H (7-17) mg/dL Creatinine 1.83 H (0.52-1.04) mg/dL Glucose 142 H (74-99) mg/dL Calcium 7.5 L (8.4-10.2) mg/dL AST 82 H (14-36) U/L ALT 62 H (4-34) U/L Total Protein 5.3 L (6.3-8.2) g/dL Albumin 3.0 L (3.5-5.0) g/dL Assessment and Plan Plan: Assessment: 1. Acute kidney injury secondary to ATN secondary to hypovolemia. Patient has received IV fluids. Now appears a little hypervolemic with anasarca changes and pleural effusions on CAT scan. Status post IV Lasix yesterday. Creatinine 1.83 today. No hydronephrosis noted on recent CAT scan. 2. Chronic kidney disease. Creatinine as of 08/23/2022 was 1.26. Etiology is nephrosclerosis. Establish baseline renal function. 3. Hypokalemia from poor intake. 4. Metabolic acidosis secondary to acute kidney injury. Improved. 5. Fecal impaction with ileus. Surgery following. 6. Severe hypothyroidism maintained on Synthroid. 7. Fluid overload. Plan: Replace potassium. TPN to be started today. Repeat Lasix 40 mg IV once today. Continue to monitor renal function and urine output.
--- NOTE | 2022-09-10 11:19 | XR ---
EXAMINATION TYPE: XR abdomen 1V DATE OF EXAM: 09/10/2022 COMPARISON: 09/07/2022 HISTORY: NG tube placement TECHNIQUE: One view abdominal series FINDINGS: Severe dilation of both small and large bowel loops with possible evidence of fecal impaction involvi ng the rectum. NG tube is seen coursing with the tip in the left upper quadrant likely within the gas tric fundus. A basilar consolidation and small effusion. Hypertrophic and degenerative change of the spine. IMPRESSION: 1. NG tube seen coiled in the left upper quadrant with the tip likely near the region of the gastric fundus. 2. Severely dilated bowel loops likely representing the distal high grade obstruction with possible f ecal impaction.
--- NOTE | 2022-09-10 11:50 | P.PN ---
Subjective This is a pleasant 62 years old female with past medical history of osteoarthritis, Patient presents because of increased weakness, numbness in her hands and feet Patient states that she feels weak for 4 months, however since yesterday she said she cannot walk because of her weakness, at baseline she uses a walker. She lives in apartment with her boyfriend. Also she reports chronic numbness in her hand and feet for about a month. She denies any other numbness, no blurred vision or slurred speech. No dizziness. She denies chest pain or dyspnea. However she states that she has headache about 5/10 of one day duration, but also she reports chronic pain in her neck. She denies chest pain or dyspnea, she had normal bowel movement no vomiting no abdominal pain or tenderness however her abdomen looks significantly distended. She smokes about half pack per day, she was counseled to quit she declines also she does not want nicotine patch. No alcohol or illicit drug. She says that she supposed to be on thyroid hormone replacement therapy but she stopped taking it for 1.5 years ago because she thought she does not needed. She states that she supposed to be on vitamin D, acid reflux disease and inhaler as she has history of COPD Vitas looks stable, patient is afebrile she is not hypothermic. Labs showing mild leukocytosis of 11.3. Rest of CBC, INR is unremarkable Creatinine is trending up 1.5, it was 1.2 about 10 days ago. Trace of BMP and liver enzymes were unremarkable. TSH is more than 100, free T4 is less than 0.15 EKG showing sinus rhythm with short NJ interval, T waves in the lateral limits. No significant ST-T changes Abdominal x-ray/KUB: Overall nonspecific but favor nonobstructive bowel gas pattern. Severe distal colonic fecal stasis is suspected. Chest x-ray: Cardiomegaly without acute pulmonary process serum cortisol is 14 in the emergency room patient received 1 dose of Cortef 100 mg as well as IV levothyroxine. Also she was started on normal saline 100 mL per hour. 09/02/2022 She's awake alert, she still feels generally weak. No chest pain or dyspnea. She denies specific urinary symptoms or abdominal pain or tenderness Patient with chronic bilateral feet and hand numbness. She still complaining from neck pain about 5/10 and states that's from her spine, neurologist on the case and patient may benefit from further testing of the cervical spine. She is hemodynamically stable and only mildly bradycardic secondary to thyroid hormone. CBC is unremarkable and received back to normal. Creatinine 1.5 but she did not receive much fluids last night, we will keep normal saline at 75 mL/h. Neurologist on the case. She remains on ceftriaxone for possible UTI and/or colitis. 09/03/2022 I discussed the case with the neurologist office today, patient MRI of the cervical spine showing severe spinal stenosis C3-C4, orthopedic surgery has been consulted and patient is started on Solu-Medrol 60 mg twice daily, and further recommendation to be followed by surgery team. Patient still complains from weakness in all 4 extremities with numbness in both hands and feet. This might contribute to the patient falling at home. Also patient underwent fecal disimpaction under surgical anesthesia today. She will continue getting the edema. This morning her abdomen was still distended and hopefully this will help her much. Patient urine culture came back negative. The patient finished her treatment for UTI and he can stop the antibiotics ceftriaxone Also her creatinine is stable at 1.5-1.6, looks like patient has chronic kidney disease stage III rather than acute kidney injury. Her levothyroxine is currently she is receiving 75 g daily. We'll keep the patient on IV fluid D5 normal saline as she still nothing by mouth 09/04/2022 Patient today awake alert, denies any new complaint, she still have numbness and weakness in both hands and feet and extremities. She was seen by orthopedic te am and she is currently on IV Solu-Medrol with a plan for possible surgical intervention in 2-3 days for her severe spinal stenosis of C3-C4, I discussed these with the patient and she is aware of this plan and she is agreeable. Because of all of these things and ask for cardiac evaluation for preop management. She is currently on levothyroxine increased to 75 g for his severe hypothyroidism, present on admission, we are going to check the thyroid function test tomorrow. In the meantime she remains also on some gentle hydration Surgical team are following the patient and she was started on lactulose today, she denies abdominal pain and her abdomen is significantly less distended than last 2 days but not completely resolved. Creatinine but at 1.4, low-calorie some replaced, low vitamin D is replaced as well. Patient denies any urinary symptoms 09/07/2022 Patient today is awake and alert, she is supposed to undergo cervical spine surgery with decompression and fusion for severe spinal stenosis at C3-C4 however patient has more severe abdominal distention and bowel obstruction both small and large secondary to fecal impaction while surgery team are following the case since admission and patient is status post fecal disimpaction on admission however today she has worsening bowel obstruction so patient felt to be high-risk for surgical intervention for her spinal stenosis and surgery was held with the recommendation of Gen. surgery, patient was made nothing by mouth with possible placement of NG tube for surgery team. Patient did not receive her oral levothyroxine 75 g, therefore we going to switch the dose and to IV medication and increase the dose to 100 g gradually and slowly as this might help her ileus and bowel obstruction. Today again I talked to the patient that is now endocrinology service in this facility and I recommended that she will be transferred to a tertiary care center however patient declined and she was stating this hospital. Labs showing mild leukocytosis, creatinine is stable at 1.4. Vital signs stable. She is not in pain and she still on IV fluids and IV Solu-Medrol 60 mg twice daily for her spinal stenosis CT of the abdomen and pelvis without contrast for abdominal distention showing 1. Remains marked amount of stool predominantly sigmoid with gaseous cavitation off upstream bowel which is now involving many loops of small bowel. disimpaction remains the recommendation. 2. Bilateral pleural effusion with anasarca and atelectasis. 3. Otero catheter in place. 4. Decrease in dilatation of the collecting system when compared to prior study 09/08/2022 Patient has multiple abdominal distention but no abdominal pain or tenderness, NG tube in place and there is about 350 ml of dark discharge in the bottle. She remains nothing by mouth Her levothyroxine switched 75 g which is equivalent to 100 g orally, so we increased the dose compared to yesterday (*it was 75 g oral daily). Her labs reviewed today. Creatinine is slightly up but she is on a fluid normal saline at 75 mL per hour and Otero catheter in place and she had no hypertension and no nephrotoxic medication so most likely is due to her abdominal distention. We'll keep monitoring her creatinine. Calcitonin is requested and is pending. Also patient remains on Solu-Medrol for her severe spinal stenosis at C3-C4 however decompression and fusion surgery was canceled yesterday because of her abdominal obstruction and ileus. 09/09/2022 Patient is still have significant abdominal distention with NG tube in a Place Gama dark secretion. Abdomen less distended slightly compared to yesterday. Still no abdominal pain or tenderness. No significant bowel movement. Patient of PICC line and TPN was started today Her creatinine is trending up 1.8 today, nephrology consult evaluated the patient today, patient currently off IV fluid and she received one dose of IV Lasix 40 mg. She is also on levothyroxine 75 g. Telemetry some improvement, vitals are stable. 09/10/2022 Patient lying comfortably in bed, NG tube in place there's about 300 mL of dark green discharge, abdomen severely distended but there is no pain or tenderness. Vitals and labs reviewed, blood pressure is stable, creatinine 1.8 which is similar to yesterday. Abdominal x-ray from today showing: NG tube called in the left upper quadrants with tapered likely near the region of the gastric fundus. Severely dilated bowel loops likely representing distal high grade obstruction with possible fecal impaction She was started on and TPN with PICC line in place. Also she received 1 time dose of Lasix yesterday and today Surgery team on the case and they followed her closely We will check labs in the morning including thyroid function test. Currently she is on IV levothyroxine 75 g which is equivalent to around 100 g of oral levothyroxine. Also she is on Solu-Medrol for her severe C3-C4 spinal stenosis by orthopedic team, her surgeon remains on hold until resolution of her bowel obstruction Objective - Vital Signs Vital signs: Vital Signs Temp 97.7 F 09/10/22 04:31 Pulse 69 09/10/22 04:31 Resp 14 09/10/22 04:31 BP 146/88 09/10/22 04:31 Pulse Ox 93 L 09/10/22 04:31 FiO2 Intake & Output 09/09/22 09/10/22 09/10/22 18:59 06:59 18:59 Intake Total 10 Output Total 1500 1375 Balance -1490 -1375 Intake: IV 10 Invasive Line 3 10 Output: Gastric Drainage 200 Urine 1500 1175 Other: Voiding Method Indwelling Catheter Indwelling Catheter # Bowel Movements 1 - Exam -GENERAL: The patient is alert and oriented x3, not in any acute distress. Well developed, well nourished. Generally weak -HEENT: Pupils are round and equally reacting to light. EOMI. No scleral i cterus. No conjunctival pallor. Normocephalic, atraumatic. No pharyngeal erythema. No thyromegaly. NG tube in place with about 300 dark Green fluid drained to the back CARDIOVASCULAR: S1 and S2 present. No murmurs, rubs, or gallops. PULMONARY: Chest is clear to auscultation, no wheezing or crackles. -ABDOMEN: Soft, nontender, distended, normoactive bowel sounds. No palpable organomegaly. MUSCULOSKELETAL: No joint swelling or deformity. EXTREMITIES: No cyanosis, clubbing, or pedal edema. NEUROLOGICAL: Gross neurological examination did not reveal any focal deficits. SKIN: No rashes. no petechiae. - Labs CBC & Chem 7: 09/09/22 06:49 09/10/22 06:47 Labs: Abnormal Lab Results - Last 24 Hours (Table) 09/10/22 Range/Units 06:47 Potassium 3.4 L (3.5-5.1) mmol/L Chloride 110 H (98-107) mmol/L BUN 32 H (7-17) mg/dL Creatinine 1.83 H (0.52-1.04) mg/dL Glucose 142 H (74-99) mg/dL Calcium 7.5 L (8.4-10.2) mg/dL AST 82 H (14-36) U/L ALT 62 H (4-34) U/L Total Protein 5.3 L (6.3-8.2) g/dL Albumin 3.0 L (3.5-5.0) g/dL Assessment and Plan Assessment: Hypothyroidism with TSH more than 100 and low T4 on admission, improving gradually Small bowel obstruction both large and small bowel secondary to fecal impaction Severe C3-C4 spinal stenosis with myelomalacia, requiring surgical intervention Hypocalcemia and low vitamin D, improved Acute kidney injury with worsening creatinine Chronic kidney disease stage III Possible acute urinary tract infection Versus asymptomatic bacteriuria . Finished treatment with antibiotic which is stopped. Generalized weakness secondary to above bilateral hands and feet numbness, chronic 1 month Noncompliance with medication and follow-up COPD, not an active issue Nicotine dependence Plan: Continue with bowel rest. continue with TPN. surgical team will follow the patient closely Keep NG tube in place Continue with levothyroxine Continue to placement of vitamin D and calcium Nephrology consult Cervical spine surgery was held till resolution of her bowel obstruction Orthopedic team on the case with plan for surgical intervention of severe spinal stenosis at C3-C4 once she becomes medically stable again on 09/07 I offered patient to transfer her to a tertiary care center as we don't have sampling theory teacher in this facility, patient declined and she wants to stay here for treatment. Risks and benefits are explained for the patient and she verbalized understanding Labs and medication were reviewed.. Continue same treatment. Continue with symptomatic treatment. Resume home medication. Monitor labs and vitals. DVT and GI prophylaxis. Further recommendations as per clinical course of the patient DVT prophylaxis: Subcutaneous heparin GI Prophylaxis: Pepcid PT/OT: Pending Prognosis is guarded
--- NOTE | 2022-09-10 13:09 | XR ---
EXAMINATION TYPE: XR abdomen 1V DATE OF EXAM: 09/10/2022 COMPARISON: NONE HISTORY: NG tube adjustment TECHNIQUE: One view abdominal series FINDINGS: NG tube is seen with tip at the level of gastric fundus. Hypertrophic degenerative changes spine and there is marked dilation of the large small bowel loops. Findings compatible with high-grade obstruct ion. Assessment for free air is nondiagnostic Lower abdomen and pelvis not included on exam. Portions of the right abdomen also not included in the field of view basilar subsegmental atelectasis seen ov al tiny pleural effusion. IMPRESSION: 1. NG tube is seen with the tip likely at the level of the gastric fundus. There remains severe marke d dilation of both large and small bowel loops compatible with high-grade obstruction.
[2022-09-10] MEDS: POTASSIUM CHLORIDE 20 MEQ in WATER FOR INJECTION 1 100ML.BAG IVPB SCH ×2 (14:08→16:46)
[2022-09-10] MEDS: [UNRECOGNIZED DRUG - REMARK] IV SCH ×8 (14:10)
--- NOTE | 2022-09-10 15:23 | P.PN ---
Subjective Progress Note Date: 09/10/22 CHIEF COMPLAINT: Fecal impaction HISTORY OF PRESENT ILLNESS: Patient is status post sigmoidoscopy with fecal disimpaction on 09/03/22. Patient did receive soapsuds enemas 3 yesterday with multiple bowel movements. However, patient's abdomen is more distended today. She denies any nausea. Has had minimal output through the NG tube. She denies any flatus. NG tube output from last night had been 200 mL. Abdominal x-ray had shown NG tube coiled the left upper quadrant with the tip likely new the r egion of the gastric fundus. Severely dilated bowel loops likely representing a distal high-grade obstruction with possible fecal impaction. X-ray results reviewed with Dr. coto. Patient scheduled for exploratory laparotomy with possible colostomy tomorrow. Nephrology is given patient IV Lasix for fluid overload. Patient seen and examined with Dr. coto PHYSICAL EXAM: VITAL SIGNS: Reviewed. GENERAL: Well-developed in no acute distress. HEENT: No sclera icterus. Extraocular movements grossly intact. Moist buccal mucosa. Head is atraumatic, normocephalic. ABDOMEN: Distended. firm. Nontender NEUROLOGIC: Alert and oriented. Cranial nerves II through XII grossly intact. ASSESSMENT: 1. Fecal impaction with ileus not improving with conservative management 2. Cervical myelopathy and severe cervical stenosis with disc herniation 3. Hypokalemia 4. Hypocalcemia 5. Hypothyroidism PLAN: -Patient scheduled for exploratory laparotomy with possible colostomy tomorrow, 09/11/[address] coto -Patient will have a new NG tube placed for decompression -Repeat abdominal x-ray ordered -Continue Reglan -Continue TPN for nutrition support -Continue supportive care -Patient received potassium supplement Physician Infection Prevention Coordinator note has been reviewed by physician. Signing provider agrees with the documented findings, assessment, and plan of care. Objective - Vital Signs Vital signs: Vital Signs Temp 97.7 F 09/10/22 04:31 Pulse 69 09/10/22 04:31 Resp 14 09/10/22 04:31 BP 146/88 09/10/22 04:31 Pulse Ox 93 L 09/10/22 04:31 FiO2 Intake & Output 09/09/22 09/10/22 09/10/22 18:59 06:59 18:59 Intake Total 10 Output Total 1500 1375 300 Balance -1490 -1375 -300 Intake: IV 10 Invasive Line 3 10 Output: Gastric Drainage 200 Urine 1500 1175 300 Other: Voiding Method Indwelling Catheter Indwelling Catheter # Bowel Movements 1 - Labs CBC & Chem 7: 09/09/22 06:49 09/10/22 06:47 Labs: Abnormal Lab Results - Last 24 Hours (Table) 09/10/22 Range/Units 06:47 Potassium 3.4 L (3.5-5.1) mmol/L Chloride 110 H (98-107) mmol/L BUN 32 H (7-17) mg/dL Creatinine 1.83 H (0.52-1.04) mg/dL Glucose 142 H (74-99) mg/dL Calcium 7.5 L (8.4-10.2) mg/dL AST 82 H (14-36) U/L ALT 62 H (4-34) U/L Total Protein 5.3 L (6.3-8.2) g/dL Albumin 3.0 L (3.5-5.0) g/dL
[2022-09-10] MEDS: FAMOTIDINE 20 MG/2 ML VIAL IV SCH (20:55)
[2022-09-11] MEDS: METOCLOPRAMIDE 5 MG/ML 2 ML VIAL IVP SCH ×5 (00:06→23:45)
[2022-09-11] MEDS: CALCIUM CARB-VIT D 500 MG-5 MCG TAB PO SCH ×3 (06:19→16:51)
[2022-09-11] MEDS: [UNRECOGNIZED DRUG - REMARK] IV SCH ×8 (08:06)
[2022-09-11] MEDS: LEVOTHYROXINE IVP 100 MCG/5 ML VIAL IV SCH (08:25)
[2022-09-11] MEDS: methylPREDNISolone SOD SUCCI 125 MG/2 ML VIAL IV SCH ×2 (08:25→19:32)
[2022-09-11] MEDS: HEPARIN SODIUM,PORCINE/PF 5,000 UNIT/0.5 ML SYRINGE SQ SCH ×2 (08:25→19:33)
[2022-09-11] MEDS: PYRIDOXINE 50 MG TAB PO SCH (08:28)
[2022-09-11] MEDS: SIMETHICONE 40 MG/0.6 ML DROPS 2,000 MG/30 ML BOTTLE PO SCH ×4 (08:29→19:35)
[2022-09-11 09:11] LABS: Basophils % (A) 0 %; Eosinophils % (A) 0 %; HCT 39.8 % (34.0-46.0); HGB 13.1 gm/dL (11.4-16.0); Lymphocytes # (A) 0.5 k/uL (1.0-4.8); Lymphocytes % (A) 5 %; MCH 33.3 pg (25.0-35.0); MCV 100.9 fL (80.0-100.0); Macrocytosis Slight; Mean Platelet Volume 9.3; Monocytes # (A) 0.4 k/uL (0-1.0); Monocytes % (A) 5 %; Neutrophils # (A) 8.5 k/uL (1.3-7.7); Neutrophils % (A) 89 %; Platelet Count 132 k/uL (150-450); RBC 3.94 m/uL (3.80-5.40); RDW 13.7 % (11.5-15.5); WBC 9.5 k/uL (3.8-10.6)
[2022-09-11 09:15] LABS: ALT 99 U/L (4-34); AST 96 U/L (14-36); African American GFR (CKD) 36 (>60 ml/min/1.73 sqM); Albumin 3.1 g/dL (3.5-5.0); Alkaline Phosphatase 67 U/L (38-126); Anion Gap 8 mmol/L; Bilirubin, Delta 0.7 mg/dL (0.0-0.2); Bilirubin,Unconjugated 0.1 mg/dL (0.0-1.1); Blood Urea Nitrogen 42 mg/dL (7-17); Carbon Dioxide 26 mmol/L (22-30); Chloride 107 mmol/L (98-107); Glucose 112 mg/dL (74-99); Magnesium 1.8 mg/dL (1.6-2.3); Non-African American GFR(CKD) 31 (>60 ml/min/1.73 sqM); Potassium 3.6 mmol/L (3.5-5.1); Sodium 141 mmol/L (137-145); Total Bilirubin 0.8 mg/dL (0.2-1.3); Total Protein 5.4 g/dL (6.3-8.2)
[2022-09-11 09:30] LABS: T4, Free (Free Thyroxine) 0.68 ng/dL (0.78-2.19)
[2022-09-11] MEDS ORDERED: POTASSIUM CHLORIDE ER 20 MEQ TAB.ER PO STA (10:58)
--- NOTE | 2022-09-11 10:59 | P.PN ---
Subjective Patient is seen in follow-up for acute kidney injury. Renal function fairly stable. Nonoliguric. Receiving TPN. No active complaints. Vital signs are stable. General: Awake. No acute distress. HEENT: NG tube noted. LUNGS: Breath sounds decreased. HEART: Rate and Rhythm are regular. ABDOMEN: Soft, distention noted. EXTREMITITES: Trace edema. Objective - Vital Signs Vital signs: Vital Signs Temp 97.5 F L 09/11/22 10:24 Pulse 61 09/11/22 10:24 Resp 18 09/11/22 10:24 BP 116/76 09/11/22 10:24 Pulse Ox 99 09/11/22 10:24 FiO2 Intake & Output 09/10/22 09/11/22 09/11/22 18:59 06:59 18:59 Intake Total 0 Output Total 1150 1140 Balance -1150 -1140 0 Intake: Oral 0 Output: Gastric Drainage 40 Urine 1150 1100 Other: Voiding Method Indwelling Catheter Indwelling Catheter Indwelling Catheter - Labs CBC & Chem 7: 09/11/22 07:43 09/11/22 07:43 Labs: Abnormal Lab Results - Last 24 Hours (Table) 09/11/22 09/11/22 Range/Units 07:43 07:43 MCV 100.9 H (80.0-100.0) fL Plt Count 132 L (150-450) k/uL Neutrophils # 8.5 H (1.3-7.7) k/uL Lymphocytes # 0.5 L (1.0-4.8) k/uL BUN 42 H (7-17) mg/dL Creatinine 1.74 H (0.52-1.04) mg/dL Glucose 112 H (74-99) mg/dL Calcium 8.0 L (8.4-10.2) mg/dL Delta Bilirubin 0.7 H (0.0-0.2) mg/dL AST 96 H (14-36) U/L ALT 99 H (4-34) U/L Total Protein 5.4 L (6.3-8.2) g/dL Albumin 3.1 L (3.5-5.0) g/dL TSH 32.000 H (0.465-4.680) mIU/L Free T4 0.68 L (0.78-2.19) ng/dL Assessment and Plan Plan: Assessment: 1. Acute kidney injury secondary to ATN secondary to hypovolemia. Patient has received IV fluids. Now appears a little hypervolemic with anasarca changes and pleural effusions on CAT scan. Status post IV Lasix given 09/09/2022 and 09/10/2022. Creatinine 1.74 today. No hydronephrosis noted on recent CAT scan. 2. Chronic kidney disease. Creatinine as of 08/23/2022 was 1.26. Etiology is nephrosclerosis. Establish baseline renal function. 3. Hypokalemia from poor intake. Replace. Better. 4. Metabolic acidosis secondary to acute kidney injury. Improved. 5. Fecal impaction with ileus. Surgery following. 6. Severe hypothyroidism maintained on Synthroid. 7. Fluid overload. Improved with Lasix given 09/09/2022 and 09/10/2022. Plan: Replace potassium. TPN per surgery. Continue to monitor renal function and urine output.
[2022-09-11] MEDS ORDERED: LACTATED RINGERS 1,000 ML IV ONE (11:13)
[2022-09-11] MEDS ORDERED: fentaNYL (PF) 50 MCG/ML 2 ML AMP ONE (11:26)
[2022-09-11] MEDS ORDERED: ePHEDrine 50 MG/ML 1 ML VIAL ONE (11:26)
[2022-09-11] MEDS ORDERED: ROCURONIUM 10 MG/ML (5 ML VIAL) IV ONE (11:26)
[2022-09-11] MEDS ORDERED: NEOSTIGMINE 1 MG/ML 10 ML VIAL ONE (11:26)
[2022-09-11] MEDS ORDERED: LIDOCAINE 2% INJ 20 MG/ML (2 ML VIAL) ONE (11:26)
[2022-09-11] MEDS ORDERED: PHENYLEPHRINE-0.9% NACL SYG 1,000 MCG/10 ML SYRINGE ONE (11:26)
[2022-09-11] MEDS ORDERED: SUCCINYLCHOLINE CHLORIDE 200 MG/10 ML VIAL IV ONE (11:26)
[2022-09-11] MEDS ORDERED: GLYCOPYRROLATE 0.2 MG/ML 2 ML VIAL ONE (11:26)
[2022-09-11] MEDS ORDERED: PROPOFOL 10 MG/ML 20 ML VIAL IV ONE (11:26)
[2022-09-11] MEDS ORDERED: metroNIDAZOLE-NS PMX 500 MG in SALINE 1 100ML.BAG IVPB STA (12:08)
[2022-09-11] MEDS ORDERED: KETOROLAC 15 MG/ML 1 ML VIAL IVP PRN (13:21)
[2022-09-11] MEDS ORDERED: HYDROmorphone 0.5 MG/0.5 ML SYRINGE IVP ONE ×2 (13:50→14:01)
--- NOTE | 2022-09-11 13:51 | P.OP ---
Date of Procedure: 09/11/22 Preoperative Diagnosis: Colon obstruction Postoperative Diagnosis: Severe ileus of right and left colon Procedure(s) Performed: Right colectomy Left colectomy End colostomy Anesthesia: ROSALBA Surgeon: Jj Worthington Estimated Blood Loss (ml): 50 Pathology: other (Right and left colon) Condition: stable Disposition: PACU Operative Findings: Grossly dilated right colon, normal caliber transverse colon grossly dilated left and sigmoid colon and rectum Description of Procedure: The patient's placed on the operative table in the supine position. She received general endotracheal tube anesthesia. Her abdomen was used sterile fashion. The area was entered through midline incision. The abdomen was very distended. The abdominal wall was divided with electrocautery. And then the abdomen was explored. The right colon and cecum was very distended. The cecum measured approximately 14 cm diameter. This was followed up to a relatively normal caliber transverse colon followed by grossly dilated left and sigmoid colon. The rectum was grossly does well. There was soft stool seen throughout the colon. There is no evidence of any colonic obstruction. There is no mechanical chest colon. It is thought that this was due to a severe ileus of th e colon. At this point the terminal ileum was transected with a GI stapler. And then the distal right colon was transected with a GI stapler. Using the Enseal device the mesentery the bowel was divided. The specimens of pathology. There was some gross abnormality of the appendix visualized. Next a [id number] functional end-to-end staple anastomosis created between the terminal ileum and the distal right colon. This was performed using the MARJ and TA stapler. 3-0 GI silk sutures using a crotch stitch. Next the bowel was followed to the level of the proximal left colon. At this point there was gross dilatation of the colon descending and we down to the rectum. This point the colon was transected and then the left colon was mobilized. And then the mesentery the bowel was divided using the Enseal device and then the rectum was transected with the MARJ stapler. 2 elida were used across the rectum. The specimens of pathology. The colon had adequate length to bring up as a c olostomy. At this point the rectum was inspected. The rectum was grossly dilated. No obstruction could be palpated. At this point the rectum was opened and manually decompressed a large amount liquid stool was removed from the rectum. This was disimpacted using a sterile kidney basin. There was no significant spill of stool. The opening the rectum was then closed with the MARJ stapler. The abdomen was area there is no bleeding seen. The left colon was brought up into the stoma in the left abdominal wall. The fascia is closed with looped #1 PDS suture. 2 stay sutures used to close the fascia. The colostomy then matured using 3-0 GI Vicryl suture. Skin was closed elida. Patient top she will was sent to recovery room in stable condition.
[2022-09-11] MEDS: MEPERIDINE 50 MG/ML SYRINGE IVP ONE ×2 (14:18→14:26)
[2022-09-11] MEDS: HYDROmorphone 1 MG/ML 1 ML SYRINGE IVP PRN ×2 (15:16→19:33)
[2022-09-11 16:24] LABS: Basophils # (A) 0.1 k/uL (0-0.2); Basophils % (A) 0 %; Eosinophils % (A) 0 %; HCT 39.1 % (34.0-46.0); HGB 13.1 gm/dL (11.4-16.0); Lymphocytes # (A) 0.4 k/uL (1.0-4.8); Lymphocytes % (A) 4 %; MCHC 33.6 g/dL (31.0-37.0); MCV 101.2 fL (80.0-100.0); Macrocytosis Slight; Monocytes # (A) 0.2 k/uL (0-1.0); Monocytes % (A) 2 %; Neutrophils # (A) 10.1 k/uL (1.3-7.7); Neutrophils % (A) 93 %; Platelet Count 135 k/uL (150-450); RBC 3.86 m/uL (3.80-5.40); RDW 13.7 % (11.5-15.5); WBC 10.8 k/uL (3.8-10.6)
[2022-09-11] MEDS: D5-0.45% NACL WITH KCL 20MEQ/L 1,000 ML IV SCH ×2 (17:09→19:34)
--- NOTE | 2022-09-11 17:46 | P.PN ---
Subjective Progress Note Date: 09/11/22 62 years old female with past medical history of osteoarthritis, Patient presents because of increased weakness, numbness in her hands and feet Patient states that she feels weak for 4 months, however since yesterday she said she cannot walk because of her weakness, at baseline she uses a walker. She lives in apartment with her boyfriend. Also she reports chronic numbness in her hand and feet for about a month. She denies any other numbness, no blurred vision or slurred speech. No dizziness. She denies chest pain or dyspnea. However she states that she has headache about 5/10 of one day duration, but also she reports chronic pain in her neck. She denies chest pain or dyspnea, she had normal bowel movement no vomiting no abdominal pain or tenderness however her abdomen looks significantly distended. She smokes about half pack per day, she was counseled to quit she declines also she does not want nicotine patch. No alcohol or illicit drug. She says that she supposed to be on thyroid hormone replacement therapy but she stopped taking it for 1.5 years ago because she thought she does not needed. She states that she supposed to be on vitamin D, acid reflux disease and inhaler as she has history of COPD Vitas looks stable, patient is afebrile she is not hypothermic. Labs showing mild leukocytosis of 11.3. Rest of CBC, INR is unremarkable Creatinine is trending up 1.5, it was 1.2 about 10 days ago. Trace of BMP and liver enzymes were unremarkable. TSH is more than 100, free T4 is less than 0.15 EKG showing sinus rhythm with short AK interval, T waves in the lateral limits. No significant ST-T changes Abdominal x-ray/KUB: Overall nonspecific but favor nonobstructive bowel gas pattern. Severe distal colonic fecal stasis is suspected. Chest x-ray: Cardiomegaly without acute pulmonary process serum cortisol is 14 Objective - Vital Signs Vital signs: Vital Signs Temp 97.6 F 09/11/22 11:00 Pulse 69 09/11/22 11:00 Resp 18 09/11/22 11:00 BP 138/76 09/11/22 11:00 Pulse Ox 97 09/11/22 11:00 FiO2 Intake & Output 09/10/22 09/11/22 09/11/22 18:59 06:59 18:59 Intake Total 100 Output Total 1150 1140 Balance -1150 -1140 100 Weight 79.379 kg Intake: IV 100 Oral 0 Output: Gastric Drainage 40 Urine 1150 1100 Other: Voiding Method Indwelling Catheter Indwelling Catheter Indwelling Catheter - Exam -GENERAL: The patient is alert and oriented x3, not in any acute distress. Well developed, well nourished. Generally weak -HEENT: Pupils are round and equally reacting to light. EOMI. No scleral icterus. No conjunctival pallor. Normocephalic, atraumatic. No pharyngeal erythema. No thyromegaly. NG tube in place with about 300 dark Green fluid drained to the back CARDIOVASCULAR: S1 and S2 present. No murmurs, rubs, or gallops. PULMONARY: Chest is clear to auscultation, no wheezing or crackles. -ABDOMEN: Soft, nontender, distended, normoactive bowel sounds. No palpable organomegaly. MUSCULOSKELETAL: No joint swelling or deformity. EXTREMITIES: No cyanosis, clubbing, or pedal edema. NEUROLOGICAL: Gross neurological examination did not reveal any focal deficits. SKIN: No rashes. no petechiae. - Labs CBC & Chem 7: 09/11/22 15:59 09/11/22 07:43 Labs: Abnormal Lab Results - Last 24 Hours (Table) 09/11/22 09/11/22 Range/Units 07:43 07:43 MCV 100.9 H (80.0-100.0) fL Plt Count 132 L (150-450) k/uL Neutrophils # 8.5 H (1.3-7.7) k/uL Lymphocytes # 0.5 L (1.0-4.8) k/uL BUN 42 H (7-17) mg/dL Creatinine 1.74 H (0.52-1.04) mg/dL Glucose 112 H (74-99) mg/dL Calcium 8.0 L (8.4-10.2) mg/dL Delta Bilirubin 0.7 H (0.0-0.2) mg/dL AST 96 H (14-36) U/L ALT 99 H (4-34) U/L Total Protein 5.4 L (6.3-8.2) g/dL Albumin 3.1 L (3.5-5.0) g/dL TSH 32.000 H (0.465-4.680) mIU/L Free T4 0.68 L (0.78-2.19) ng/dL Assessment and Plan Assessment: Hypothyroidism with TSH more than 100 and low T4 on admission, improving gradually Small bowel obstruction both large and small bowel secondary to fecal impaction Severe C3-C4 spinal stenosis with myelomalacia, requiring surgical intervention Hypocalcemia and low vitamin D, improved Acute kidney injury with worsening creatinine Chronic kidney disease stage III Possible acute urinary tract infection Versus asymptomatic bacteriuria . Finished treatment with antibiotic which is stopped. Generalized weakness secondary to above bilateral hands and feet numbness, chronic 1 month Noncompliance with medication and follow-up COPD, not an active issue Nicotine dependence Plan: Continue with bowel rest. continue with TPN. 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 Risks and benefits are explained for the patient and she verbalized understanding Labs and medication were reviewed.. Continue same treatment. Continue with symptomatic treatment. Resume home medication. Monitor labs and vitals. DVT and GI prophylaxis. Further recommendations as per clinical course of the patient DVT prophylaxis: Subcutaneous heparin GI Prophylaxis: Pepcid PT/OT: Pending
[2022-09-11] MEDS: FAMOTIDINE 20 MG/2 ML VIAL IV SCH (19:32)
[2022-09-12] MEDS: [UNRECOGNIZED DRUG - REMARK] IV SCH ×24 (01:00→03:41)
[2022-09-12] MEDS: CALCIUM CARB-VIT D 500 MG-5 MCG TAB PO SCH ×3 (06:13→17:04)
[2022-09-12] MEDS: METOCLOPRAMIDE 5 MG/ML 2 ML VIAL IVP SCH ×4 (06:13→23:08)
[2022-09-12] MEDS: D5-0.45% NACL WITH KCL 20MEQ/L 1,000 ML IV SCH (06:13)
[2022-09-12] MEDS: HYDROmorphone 1 MG/ML 1 ML SYRINGE IVP PRN ×2 (06:18→17:13)
[2022-09-12] MEDS: LEVOTHYROXINE IVP 100 MCG/5 ML VIAL IV SCH (09:42)
[2022-09-12] MEDS: methylPREDNISolone SOD SUCCI 125 MG/2 ML VIAL IV SCH ×2 (09:42→19:50)
[2022-09-12] MEDS: HEPARIN SODIUM,PORCINE/PF 5,000 UNIT/0.5 ML SYRINGE SQ SCH ×2 (09:42→19:50)
[2022-09-12] MEDS: SIMETHICONE 40 MG/0.6 ML DROPS 2,000 MG/30 ML BOTTLE PO SCH ×4 (09:43→21:24)
[2022-09-12] MEDS: PYRIDOXINE 50 MG TAB PO SCH (09:43)
[2022-09-12 10:02] LABS: Basophils % (A) 0 %; Eosinophils % (A) 0 %; HCT 34.5 % (34.0-46.0); HGB 11.3 gm/dL (11.4-16.0); Lymphocytes # (A) 0.3 k/uL (1.0-4.8); Lymphocytes % (A) 3 %; MCH 33.5 pg (25.0-35.0); MCHC 32.9 g/dL (31.0-37.0); MCV 102.1 fL (80.0-100.0); Macrocytosis Slight; Mean Platelet Volume 9.6; Monocytes # (A) 0.3 k/uL (0-1.0); Monocytes % (A) 2 %; Neutrophils # (A) 12.1 k/uL (1.3-7.7); Neutrophils % (A) 94 %; Platelet Count 105 k/uL (150-450); RBC 3.38 m/uL (3.80-5.40); RDW 14.1 % (11.5-15.5); WBC 12.9 k/uL (3.8-10.6)
[2022-09-12 10:28] LABS: Calcium 6.8 mg/dL (8.4-10.2); Magnesium 1.7 mg/dL (1.6-2.3); Phosphorus 2.8 mg/dL (2.5-4.5); Potassium 3.7 mmol/L (3.5-5.1)
--- NOTE | 2022-09-12 10:28 | P.PN ---
Subjective Patient is seen in follow-up for acute kidney injury. Renal function fairly stable as of yesterday. Nonoliguric. Receiving TPN. Is also receiving IV fluids. No active complaints. Vital signs are stable. General: Awake. No acute distress. HEENT: NG tube noted. LUNGS: Breath sounds decreased. HEART: Rate and Rhythm are regular. ABDOMEN: Soft, distention noted. EXTREMITITES: Trace edema. Objective - Vital Signs Vital signs: Vital Signs Temp 97.9 F 09/12/22 08:00 Pulse 69 09/12/22 08:00 Resp 16 09/12/22 08:00 BP 102/58 09/12/22 08:00 Pulse Ox 97 09/12/22 08:00 FiO2 Intake & Output 09/11/22 09/12/22 09/12/22 18:59 06:59 18:59 Intake Total 2005 1045 Output Total 800 500 Balance 1206 545 Weight 79.379 kg Intake: IV 950 Intake, IV Titration 1056 1045 Amount Mvi, Adult No.4 with Vit 1056 K 10 ml Trace (Conc-1Ml/ Dose) 1 ml Sodium Acetate 36 meq Potassium Acetate 24 meq Calcium Gluconate 1 gm Magnesium Sulfate gm 1 gm Potassium Phosphate 9 mmol In Amino Acids 5 %/Dextrose 20 % 1,000 ml @ 60 mls/hr IV . BY DURATION [facility] Rx#: [id number] Sodium Acetate 36 meq 1045 Potassium Acetate 24 meq Calcium Gluconate 1 gm Magnesium Sulfate gm 1 gm Potassium Phosphate 9 mmol In Amino Acids 5 %/ Dextrose 20 % 1,000 ml @ 60 mls/hr IV .BY DURATION [facility] Rx#:[id number] Oral 0 Output: Urine 700 500 Estimated Blood Loss 100 Other: Voiding Method Indwelling Catheter Indwelling Catheter - Labs CBC & Chem 7: 09/12/22 08:46 09/11/22 07:43 Labs: Abnormal Lab Results - Last 24 Hours (Table) 09/11/22 09/12/22 Range/Units 15:59 08:46 WBC 10.8 H 12.9 H (3.8-10.6) k/uL RBC 3.38 L (3.80-5.40) m/uL Hgb 11.3 L (11.4-16.0) gm/dL MCV 101.2 H 102.1 H (80.0-100.0) fL Plt Count 135 L 105 L (150-450) k/uL Neutrophils # 10.1 H 12.1 H (1.3-7.7) k/uL Lymphocytes # 0.4 L 0.3 L (1.0-4.8) k/uL Assessment and Plan Plan: Assessment: 1. Acute kidney injury secondary to ATN secondary to hypovolemia. Patient has received IV fluids. Now appears a little hypervolemic with anasarca changes and pleural effusions on CAT scan. Status post IV Lasix given 09/09/2022 and 09/10/2022. Creatinine 1.74 yesterday. No hydronephrosis noted on recent CAT scan. 2. Chronic kidney disease. Creatinine as of 08/23/2022 was 1.26. Etiology is nephrosclerosis. Establish baseline renal function. 3. Hypokalemia from poor intake. Replaced. Better. 4. Metabolic acidosis secondary to acute kidney injury. Improved. 5. Fecal impaction with ileus. Surgery following. Underwent colectomy with end colostomy on 09/21/2022. 6. Severe hypothyroidism maintained on Synthroid. 7. Fluid overload. Improved with Lasix given 09/09/2022 and 09/10/2022. Plan: Hep-Lock IV fluids. TPN per surgery. Continue to monitor renal function and urine output. Follow-up morning labs. Avoid nephrotoxins.
--- NOTE | 2022-09-12 10:57 | P.PN ---
Progress Note - Text Progress Note Date: 09/12/22 Patient's resting comfortably in her bed. She denies a significant abdominal pain. She is postoperative day 1 from partial colectomy for colonic pseudoobstruction. On exam vital signs are stable. Abdomen soft. Incisions clean dry intact. Colostomy is pink and viable. There is no significant stool output. Status post colectomy for pseudoobstruction and megacolon. Patient will continue supportive care. She is encouraged to ambulate and sit in chair today and use use incentive spirometer..
[2022-09-12] MEDS ORDERED: POTASSIUM CHLORIDE ER 20 MEQ TAB.ER PO STA (11:26)
[2022-09-12] MEDS ORDERED: MAGNESIUM SULFATE-D5W PMX 1 GM in DEXTROSE/WATER 1 100ML.BAG IVPB ONE (12:00)
[2022-09-12] MEDS ORDERED: POTASSIUM BICARBONATE/CIT AC 20 MEQ TABLET.EFF PO ONE (13:01)
[2022-09-12] MEDS: 1: MVI, ADULT NO.4 WITH VIT K 10 ML, TRACE (CONC-1ML/DOSE) 1 ML in AMINO ACID 5%-D20W+LY IV SCH ×3 (19:48)
[2022-09-12] MEDS: FAMOTIDINE 20 MG/2 ML VIAL IV SCH (19:50)
[2022-09-13] MEDS: HYDROmorphone 1 MG/ML 1 ML SYRINGE IVP PRN ×3 (00:39→18:00)
[2022-09-13 04:01] LABS: Basophils % (A) 0 %; Eosinophils % (A) 0 %; HCT 30.4 % (34.0-46.0); HGB 10.3 gm/dL (11.4-16.0); Lymphocytes # (A) 0.3 k/uL (1.0-4.8); Lymphocytes % (A) 2 %; MCH 34.6 pg (25.0-35.0); MCHC 33.9 g/dL (31.0-37.0); MCV 101.9 fL (80.0-100.0); Macrocytosis Slight; Mean Platelet Volume 9.4; Monocytes # (A) 0.4 k/uL (0-1.0); Monocytes % (A) 3 %; Neutrophils # (A) 10.9 k/uL (1.3-7.7); Neutrophils % (A) 94 %; Platelet Count 100 k/uL (150-450); RBC 2.98 m/uL (3.80-5.40); RDW 13.7 % (11.5-15.5); WBC 11.6 k/uL (3.8-10.6)
[2022-09-13 04:15] LABS: Calcium 7.1 mg/dL (8.4-10.2); Potassium 3.9 mmol/L (3.5-5.1)
[2022-09-13 04:17] LABS: Magnesium 1.9 mg/dL (1.6-2.3)
[2022-09-13] MEDS: CALCIUM CARB-VIT D 500 MG-5 MCG TAB PO SCH ×3 (05:08→17:58)
[2022-09-13] MEDS: METOCLOPRAMIDE 5 MG/ML 2 ML VIAL IVP SCH ×4 (05:08→23:21)
[2022-09-13] MEDS: FAT EMULSION 20% 250 ML in EMPTY BAG 1 BAG IV SCH (08:07)
--- NOTE | 2022-09-13 10:17 | P.PN ---
Subjective Patient is seen in follow-up for acute kidney injury. Renal function improving. Nonoliguric. Receiving TPN. Blood pressure stable. Vital signs are stable. General: Awake. No acute distress. HEENT: NG tube noted. On nasal cannula. LUNGS: Breath sounds decreased. HEART: Rate and Rhythm are regular. ABDOMEN: Ileostomy noted. EXTREMITITES: Trace edema. Objective - Vital Signs Vital signs: Vital Signs Temp 98.0 F 09/13/22 04:00 Pulse 70 09/13/22 04:00 Resp 18 09/13/22 04:00 BP 104/52 09/13/22 04:00 Pulse Ox 95 09/13/22 04:00 FiO2 Intake & Output 09/12/22 09/13/22 09/13/22 18:59 06:59 18:59 Output Total 700 400 Balance -700 -400 Output: Urine 700 400 Other: Voiding Method Indwelling Catheter Indwelling Catheter - Labs CBC & Chem 7: 09/13/22 03:10 09/13/22 03:10 Labs: Abnormal Lab Results - Last 24 Hours (Table) 09/12/22 09/13/22 09/13/22 Range/Units 08:46 03:10 03:10 WBC 11.6 H (3.8-10.6) k/uL RBC 2.98 L (3.80-5.40) m/uL Hgb 10.3 L (11.4-16.0) gm/dL Hct 30.4 L (34.0-46.0) % MCV 101.9 H (80.0-100.0) fL Plt Count 100 L (150-450) k/uL Neutrophils # 10.9 H (1.3-7.7) k/uL Lymphocytes # 0.3 L (1.0-4.8) k/uL Sodium 136 L 135 L (137-145) mmol/L BUN 47 H 50 H (7-17) mg/dL Creatinine 1.45 H 1.38 H (0.52-1.04) mg/dL Glucose 169 H 133 H (74-99) mg/dL Calcium 6.8 L 7.1 L (8.4-10.2) mg/dL Assessment and Plan Plan: Assessment: 1. Acute kidney injury secondary to ATN secondary to hypovolemia. Patient has received IV fluids. Now appears a little hypervolemic with anasarca changes and pleural effusions on CAT scan. Status post IV Lasix given 09/09/2022 and 09/10/2022. Creatinine 1.38 today. No hydronephrosis noted on recent CAT scan. 2. Chronic kidney disease. Creatinine as of 08/23/2022 was 1.26. Etiology is nephrosclerosis. Establish baseline renal function. 3. Hypokalemia from poor intake. Replaced. Better. 4. Metabolic acidosis secondary to acute kidney injury. Improved. 5. Fecal impaction with ileus. Surgery following. Underwent colectomy with end colostomy on 09/21/2022. 6. Severe hypothyroidism maintained on Synthroid. 7. Fluid overload. Improved with Lasix given 09/09/2022 and 09/10/2022. Plan: TPN per surgery. Continue to monitor renal function and urine output. Avoid nephrotoxins.
[2022-09-13] MEDS: PYRIDOXINE 50 MG TAB PO SCH (10:26)
[2022-09-13] MEDS: methylPREDNISolone SOD SUCCI 125 MG/2 ML VIAL IV SCH ×2 (10:26→20:09)
[2022-09-13] MEDS: HEPARIN SODIUM,PORCINE/PF 5,000 UNIT/0.5 ML SYRINGE SQ SCH ×2 (10:27→20:09)
[2022-09-13] MEDS: LEVOTHYROXINE IVP 100 MCG/5 ML VIAL IV SCH (10:27)
[2022-09-13] MEDS: SIMETHICONE 40 MG/0.6 ML DROPS 2,000 MG/30 ML BOTTLE PO SCH ×4 (10:27→23:21)
--- NOTE | 2022-09-13 10:34 | P.PN ---
Progress Note - Text Progress Note Date: 09/13/22 The patient is postoperative day 2 from partial colectomy with colostomy. The patient has some incisional pain. Patient also has had some stool output through her colostomy. On exam vital signs are stable. Abdomen is soft. Incision is clean and dry. Colostomy in left upper quadrant has some liquid stool in the colostomy bag. Status post partial colectomy for megacolon related to pseudoobstruction. Patient will continue to receive supportive care.
--- NOTE | 2022-09-13 10:42 | P.PN ---
Subjective Progress Note Date: 09/12/22 Principal diagnosis: Hypothyroidism with TSH more than 100 and low T4 on admission Small bowel obstruction both large and small bowel secondary to fecal impaction/ POD #1 from partial colectomy for colonic pseudoobstruction Severe C3-C4 spinal stenosis with myelomalacia Acute kidney injury with worsening creatinine 62 years old female with past medical history of osteoarthritis, Patient presents because of increased weakness, numbness in her hands and feet Patient states that she feels weak for 4 months, however since yesterday she said she cannot walk because of her weakness, at baseline she uses a walker. She lives in apartment with her boyfriend. Also she reports chronic numbness in her hand and feet for about a month. She denies any other numbness, no blurred vision or slurred speech. No dizziness. She denies chest pain or dyspnea. However she states that she has headache about 5/10 of one day duration, but also she reports chronic pain in her neck. She denies chest pain or dyspnea, she had normal bowel movement no vomiting no abdominal pain or tenderness however her abdomen looks significantly distended. She smokes about half pack per day, she was counseled to quit she declines also she does not want nicotine patch. No alcohol or illicit drug. She says that she supposed to be on thyroid hormone replacement therapy but she stopped taking it for 1.5 years ago because she thought she does not needed. She states that she supposed to be on vitamin D, acid reflux disease and inhaler as she has history of COPD Vitas looks stable, patient is afebrile she is not hypothermic. Labs showing mild leukocytosis of 11.3. Rest of CBC, INR is unremarkable Creatinine is trending up 1.5, it was 1.2 about 10 days ago. Trace of BMP and liver enzymes were unremarkable. TSH is more than 100, free T4 is less than 0.15 EKG showing sinus rhythm with short DE interval, T waves in the lateral limits. No significant ST-T changes Abdominal x-ray/KUB: Overall nonspecific but favor nonobstructive bowel gas pattern. Severe distal colonic fecal stasis is suspected. 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 Patient is encouraged to increase activity and continues use of incentive spirometry -- Nephrology on board for acute on chronic kidney disease; patient remains on IV fluid; appears a little hypervolemic with anasarca changes and pleural effusions on CAT scan. Status post IV Lasix given 09/09/2022 and 09/10/2022. Creatinine 1.74 yesterday. No hydronephrosis noted on recent CAT scan. Nephrology recommending to Hep-Lock IV fluids; continue to monitor strict CANDY's, renal function and electrolytes; continue to avoid nephrotoxins Objective - Vital Signs Vital signs: Vital Signs Temp 98.1 F 09/12/22 04:00 Pulse 64 09/12/22 04:00 Resp 17 09/12/22 04:00 BP 140/59 09/12/22 04:00 Pulse Ox 99 09/12/22 04:00 FiO2 Intake & Output 09/11/22 09/12/22 09/12/22 18:59 06:59 18:59 Intake Total 2005 1045 Output Total 800 500 Balance 1206 545 Weight 79.379 kg Intake: IV 950 Intake, IV Titration 1056 1045 Amount Mvi, Adult No.4 with Vit 1056 K 10 ml Trace (Conc-1Ml/ Dose) 1 ml Sodium Acetate 36 meq Potassium Acetate 24 meq Calcium Gluconate 1 gm Magnesium Sulfate gm 1 gm Potassium Phosphate 9 mmol In Amino Acids 5 %/Dextrose 20 % 1,000 ml @ 60 mls/hr IV . BY DURATION [facility] Rx#: [id number] Sodium Acetate 36 meq 1045 Potassium Acetate 24 meq Calcium Gluconate 1 gm Magnesium Sulfate gm 1 gm Potassium Phosphate 9 mmol In Amino Acids 5 %/ Dextrose 20 % 1,000 ml @ 60 mls/hr IV .BY DURATION [facility] Rx#:[id number] Oral 0 Output: Urine 700 500 Estimated Blood Loss 100 Other: Voiding Method Indwelling Catheter Indwelling Catheter - Exam -GENERAL: The patient is alert and oriented x3, not in any acute distress. Well developed, well nourished. Generally weak -HEENT: Pupils are round and equally reacting to light. EOMI. No scleral icterus. No conjunctival pallor. Normocephalic, atraumatic. No pharyngeal erythema. No thyromegaly. NG tube in place with about 300 dark Green fluid drained to the back CARDIOVASCULAR: S1 and S2 present. No murmurs, rubs, or gallops. PULMONARY: Chest is clear to auscultation, no wheezing or crackles. -ABDOMEN: Soft, nontender, distended, normoactive bowel sounds. No palpable organomegaly. MUSCULOSKELETAL: No joint swelling or deformity. EXTREMITIES: No cyanosis, clubbing, or pedal edema. NEUROLOGICAL: Gross neurological examination did not reveal any focal deficits. SKIN: No rashes. no petechiae. - Labs CBC & Chem 7: 09/13/22 03:10 09/13/22 03:10 Labs: Abnormal Lab Results - Last 24 Hours (Table) 09/11/22 09/11/22 Range/Units 07:43 15:59 WBC 10.8 H (3.8-10.6) k/uL MCV 101.2 H (80.0-100.0) fL Plt Count 135 L (150-450) k/uL Neutrophils # 10.1 H (1.3-7.7) k/uL Lymphocytes # 0.4 L (1.0-4.8) k/uL TSH 32.000 H (0.465-4.680) mIU/L Free T4 0.68 L (0.78-2.19) ng/dL Assessment and Plan Assessment: Hypothyroidism with TSH more than 100 and low T4 on admission, improving gradually Small bowel obstruction both large and small bowel secondary to fecal impaction Severe C3-C4 spinal stenosis with myelomalacia, requiring surgical intervention Hypocalcemia and low vitamin D, improved Acute kidney injury with worsening creatinine Chronic kidney disease stage III Possible acute urinary tract infection Versus asymptomatic bacteriuria . Finished treatment with antibiotic which is stopped. Generalized weakness secondary to above bilateral hands and feet numbness, chronic 1 month Noncompliance with medication and follow-up COPD, not an active issue Nicotine dependence Plan: Continue with bowel rest. continue with TPN. 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 Risks and benefits are explained for the patient and she verbalized understanding Labs and medication were reviewed.. Continue same treatment. Continue with symptomatic treatment. Resume home medication. Monitor labs and vitals. DVT and GI prophylaxis. Further recommendations as per clinical course of the patient DVT prophylaxis: Subcutaneous heparin GI Prophylaxis: Pepcid PT/OT: Pending
[2022-09-13] MEDS: PANTOPRAZOLE 40 MG/10 ML VIAL IVP SCH ×2 (11:31→20:09)
[2022-09-13] MEDS ORDERED: FUROSEMIDE 10 MG/ML 4 ML VIAL IV STA (11:53)
--- NOTE | 2022-09-13 12:10 | XR ---
EXAMINATION TYPE: XR chest 1V portable DATE OF EXAM: 09/13/2022 HISTORY: Shortness of breath. COMPARISON: 09/01/2022 TECHNIQUE: Single view of the chest is submitted. FINDINGS: NG tube is seen coursing into the stomach. Left-sided PICC line is appropriately placed. There is pulmonary venous congestion with interstitial edema and small effusions. The heart is stable. Hilar and mediastinal structures are within normal limits. Degenerative changes are seen of the dorsal spine. IMPRESSION: 1. There is pulmonary venous congestion with interstitial edema and small effusions.
[2022-09-13] MEDS: 1: MVI, ADULT NO.4 WITH VIT K 10 ML, TRACE (CONC-1ML/DOSE) 1 ML in AMINO ACID 5%-D20W+LY IV SCH ×3 (13:41)
--- NOTE | 2022-09-13 17:24 | P.PN ---
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 She lives in apartment with her boyfriend. Also she reports chronic numbness in her hand and feet for about a month. She denies any other numbness, no blurred vision or slurred speech. No dizziness. She denies chest pain or dyspnea. However she states that she has headache about 5/10 of one day duration, but also she reports chronic pain in her neck. She denies chest pain or dyspnea, she had normal bowel movement no vomiting no abdominal pain or tenderness however her abdomen looks significantly distended. She smokes about half pack per day, she was counseled to quit she declines also she does not want nicotine patch. No alcohol or illicit drug. She says that she supposed to be on thyroid hormone replacement therapy but she stopped taking it for 1.5 years ago because she thought she does not needed. She states that she supposed to be on vitamin D, acid reflux disease and inhaler as she has history of COPD Vitas looks stable, patient is afebrile she is not hypothermic. Labs showing mild leukocytosis of 11.3. Rest of CBC, INR is unremarkable Creatinine is trending up 1.5, it was 1.2 about 10 days ago. Trace of BMP and liver enzymes were unremarkable. TSH is more than 100, free T4 is less than 0.15 EKG showing sinus rhythm with short NH interval, T waves in the lateral limits. No significant ST-T changes Abdominal x-ray/KUB: Overall nonspecific but favor nonobstructive bowel gas pattern. Severe distal colonic fecal stasis is suspected. 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 Patient is encouraged to increase activity and continues use of incentive spirometry -- Nephrology on board for acute on chronic kidney disease; patient remains on IV fluid; appears a little hypervolemic with anasarca changes and pleural effusions on CAT scan. Status post IV Lasix given 09/09/2022 and 09/10/2022. Creatinine 1.74 yesterday. No hydronephrosis noted on recent CAT scan. Nephrology recommending to Hep-Lock IV fluids; continue to monitor strict CANDY's, renal function and electrolytes; continue to avoid nephrotoxins 09/13/2022 Patient is seen and evaluated in room at bedside and discussed with nursing staff; complains of mild to moderate respiratory distress and difficulty breathing Vital signs review shows temperature of 97.9, pulse 83, decision 16 and blood pressure 105/58 and O2 saturation remaining above 95% on 2 L Chest examination does reveal decreased breath sounds with bibasilar crackles and scattered rhonchi Lab review shows WBC of 11.6, hemoglobin of 10.3 and platelet count of 100, sodium 135, doesn't 2.9, BUN/creatinine of 50/1.38 which is improved from 47/1.45 yesterday Stat chest x-ray completed reveals pulmonary venous congestion with interstitial edema and small effusions; patient was treated with Lasix 40 mg IV 1 with plans to repeat another dose tonight - We will plan to monitor strict CANDY's and daily weights; monitor patient closely for need for any further diuretic therapy Objective - Vital Signs Vital signs: Vital Signs Temp 97.2 F L 09/13/22 07:45 Pulse 75 09/13/22 07:45 Resp 18 09/13/22 07:45 BP 111/62 09/13/22 07:45 Pulse Ox 97 09/13/22 07:45 FiO2 Intake & Output 09/12/22 09/13/22 09/13/22 18:59 06:59 18:59 Output Total 700 400 Balance -700 -400 Output: Urine 700 400 Other: Voiding Method Indwelling Catheter Indwelling Catheter - Exam -GENERAL: The patient is alert and oriented x3, not in any acute distress. Well developed, well nourished. Generally weak -HEENT: Pupils are round and equally reacting to light. EOMI. No scleral icterus. No conjunctival pallor. Normocephalic, atraumatic. No pharyngeal er ythema. No thyromegaly. NG tube in place with about 300 dark Green fluid drained to the back CARDIOVASCULAR: S1 and S2 present. No murmurs, rubs, or gallops. PULMONARY: Chest is clear to auscultation, no wheezing or crackles. -ABDOMEN: Soft, nontender, distended, normoactive bowel sounds. No palpable organomegaly. MUSCULOSKELETAL: No joint swelling or deformity. EXTREMITIES: No cyanosis, clubbing, or pedal edema. NEUROLOGICAL: Gross neurological examination did not reveal any focal deficits. SKIN: No rashes. no petechiae. - Labs CBC & Chem 7: 09/13/22 03:10 09/13/22 03:10 Labs: Abnormal Lab Results - Last 24 Hours (Table) 09/13/22 09/13/22 Range/Units 03:10 03:10 WBC 11.6 H (3.8-10.6) k/uL RBC 2.98 L (3.80-5.40) m/uL Hgb 10.3 L (11.4-16.0) gm/dL Hct 30.4 L (34.0-46.0) % MCV 101.9 H (80.0-100.0) fL Plt Count 100 L (150-450) k/uL Neutrophils # 10.9 H (1.3-7.7) k/uL Lymphocytes # 0.3 L (1.0-4.8) k/uL Sodium 135 L (137-145) mmol/L BUN 50 H (7-17) mg/dL Creatinine 1.38 H (0.52-1.04) mg/dL Glucose 133 H (74-99) mg/dL Calcium 7.1 L (8.4-10.2) mg/dL Assessment and Plan Assessment: Hypothyroidism with TSH more than 100 and low T4 on admission, improving gradually Small bowel obstruction both large and small bowel secondary to fecal impaction Severe C3-C4 spinal stenosis with myelomalacia, requiring surgical intervention Hypocalcemia and low vitamin D, improved Acute kidney injury with worsening creatinine Chronic kidney disease stage III Possible acute urinary tract infection Versus asymptomatic bacteriuria . Finished treatment with antibiotic which is stopped. Generalized weakness secondary to above bilateral hands and feet numbness, chronic 1 month Noncompliance with medication and follow-up COPD, not an active issue Nicotine dependence Plan: Continue with bowel rest. continue with TPN. 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 Risks and benefits are explained for the patient and she verbalized understanding Labs and medication were reviewed.. Continue same treatment. Continue with symptomatic treatment. Resume home medication. Monitor labs and vitals. DVT and GI prophylaxis. Further recommendations as per clinical course of the patient DVT prophylaxis: Subcutaneous heparin GI Prophylaxis: Pepcid PT/OT: Pending
[2022-09-13] MEDS ORDERED: FUROSEMIDE 10 MG/ML 4 ML VIAL IV ONE (20:00)
[2022-09-13] MEDS: FAMOTIDINE 20 MG/2 ML VIAL IV SCH (20:09)
[2022-09-13 20:31] LABS: Glucose,Whole Blood 195 mg/dL (70-110)
[2022-09-14] MEDS: 1: MVI, ADULT NO.4 WITH VIT K 10 ML, TRACE (CONC-1ML/DOSE) 1 ML in AMINO ACID 5%-D20W+LY IV SCH ×6 (04:26→21:10)
[2022-09-14] MEDS: METOCLOPRAMIDE 5 MG/ML 2 ML VIAL IVP SCH ×4 (05:30→23:32)
[2022-09-14 06:47] LABS: Basophils % (A) 0 %; Eosinophils % (A) 0 %; HCT 30.1 % (34.0-46.0); Lymphocytes # (A) 0.2 k/uL (1.0-4.8); Lymphocytes % (A) 1 %; MCH 33.3 pg (25.0-35.0); MCHC 33.2 g/dL (31.0-37.0); MCV 100.4 fL (80.0-100.0); Macrocytosis Slight; Mean Platelet Volume 10.1; Monocytes # (A) 0.3 k/uL (0-1.0); Monocytes % (A) 2 %; Neutrophils # (A) 12.5 k/uL (1.3-7.7); Neutrophils % (A) 96 %; RDW 13.9 % (11.5-15.5)
[2022-09-14 07:27] LABS: Albumin 2.4 g/dL (3.5-5.0)
[2022-09-14 07:29] LABS: Calcium 7.1 mg/dL (8.4-10.2); Potassium 3.4 mmol/L (3.5-5.1)
[2022-09-14 07:30] LABS: Magnesium 1.6 mg/dL (1.6-2.3); Phosphorus 3.6 mg/dL (2.5-4.5)
[2022-09-14 07:40] LABS: Platelet Count 97 k/uL (150-450)
[2022-09-14] MEDS: PANTOPRAZOLE 40 MG/10 ML VIAL IVP SCH ×2 (08:43→19:55)
[2022-09-14] MEDS: methylPREDNISolone SOD SUCCI 125 MG/2 ML VIAL IV SCH ×2 (08:43→19:55)
[2022-09-14] MEDS: HEPARIN SODIUM,PORCINE/PF 5,000 UNIT/0.5 ML SYRINGE SQ SCH ×2 (08:43→19:55)
[2022-09-14] MEDS: PYRIDOXINE 50 MG TAB PO SCH (08:44)
[2022-09-14] MEDS: LEVOTHYROXINE IVP 100 MCG/5 ML VIAL IV SCH (08:44)
[2022-09-14] MEDS: CALCIUM CARB-VIT D 500 MG-5 MCG TAB NG-TUBE SCH ×3 (08:44→17:34)
[2022-09-14] MEDS: SIMETHICONE 40 MG/0.6 ML DROPS 2,000 MG/30 ML BOTTLE PO SCH ×4 (08:45→21:10)
[2022-09-14] MEDS ORDERED: HYDROcodone/APAP 5-325MG 1 EACH TAB PO PRN (11:11)
[2022-09-14] MEDS ORDERED: POTASSIUM CHLORIDE ER 20 MEQ TAB.ER PO STA (11:30)
--- NOTE | 2022-09-14 11:30 | P.PN ---
Subjective Patient is seen in follow-up for acute kidney injury. Renal function stable. Nonoliguric. Receiving TPN. Blood pressure stable. Currently sitting up in chair. Vital signs are stable. General: Awake. No acute distress. HEENT: NG tube noted. On nasal cannula. LUNGS: Breath sounds decreased. HEART: Rate and Rhythm are regular. ABDOMEN: Ileostomy noted. EXTREMITITES: Trace edema. Objective - Vital Signs Vital signs: Vital Signs Temp 98.3 F 09/14/22 08:41 Pulse 75 09/14/22 08:41 Resp 16 09/14/22 08:41 BP 136/77 09/14/22 08:41 Pulse Ox 98 09/14/22 08:41 FiO2 Intake & Output 09/13/22 09/14/22 09/14/22 18:59 06:59 18:59 Intake Total 1000 Output Total 2520 2350 Balance -1520 -2350 Weight 79.379 kg Intake: Intake, IV Titration 1000 Amount Amino Acid 5%-D20w+Lytes* 1000 E* 1,000 ml @ 60 mls/hr IV .BY DURATION [facility] Rx#: [id number] Output: Gastric Drainage 100 Drainage 100 Abdomen 100 Urine 2370 2200 Stool 50 50 Other: Voiding Method Indwelling Catheter Indwelling Catheter Indwelling Catheter - Labs CBC & Chem 7: 09/14/22 06:31 09/14/22 06:31 Labs: Abnormal Lab Results - Last 24 Hours (Table) 09/13/22 09/14/22 09/14/22 Range/Units 20:29 06:31 06:31 WBC 13.0 H (3.8-10.6) k/uL RBC 3.00 L (3.80-5.40) m/uL Hgb 10.0 L (11.4-16.0) gm/dL Hct 30.1 L (34.0-46.0) % MCV 100.4 H (80.0-100.0) fL Plt Count 97 L (150-450) k/uL Neutrophils # 12.5 H (1.3-7.7) k/uL Lymphocytes # 0.2 L (1.0-4.8) k/uL Potassium 3.4 L (3.5-5.1) mmol/L Carbon Dioxide 34 H (22-30) mmol/L BUN 53 H (7-17) mg/dL Creatinine 1.43 H (0.52-1.04) mg/dL Glucose 164 H (74-99) mg/dL POC Glucose (mg/dL) 195 H (70-110) mg/dL Calcium 7.1 L (8.4-10.2) mg/dL Albumin (3.5-5.0) g/dL 09/14/22 Range/Units 06:31 WBC (3.8-10.6) k/uL RBC (3.80-5.40) m/uL Hgb (11.4-16.0) gm/dL Hct (34.0-46.0) % MCV (80.0-100.0) fL Plt Count (150-450) k/uL Neutrophils # (1.3-7.7) k/uL Lymphocytes # (1.0-4.8) k/uL Potassium (3.5-5.1) mmol/L Carbon Dioxide (22-30) mmol/L BUN (7-17) mg/dL Creatinine (0.52-1.04) mg/dL Glucose (74-99) mg/dL POC Glucose (mg/dL) (70-110) mg/dL Calcium (8.4-10.2) mg/dL Albumin 2.4 L (3.5-5.0) g/dL Assessment and Plan Plan: Assessment: 1. Acute kidney injury secondary to ATN secondary to hypovolemia. Patient has received IV fluids. Now appears a little hypervolemic with anasarca changes and pleural effusions on CAT scan. Status post IV Lasix given 09/09/2022 and 09/10/2022. Creatinine 1.43 today. No hydronephrosis noted on recent CAT scan. 2. Chronic kidney disease. Creatinine as of 08/23/2022 was 1.26. Etiology is nephrosclerosis. Establish baseline renal function. 3. Hypokalemia from poor intake. 4. Metabolic acidosis secondary to acute kidney injury. Resolved. 5. Fecal impaction with ileus. Surgery following. Underwent colectomy with end colostomy on 09/21/2022. 6. Severe hypothyroidism maintained on Synthroid. 7. Fluid overload. Improved with Lasix given 09/09/2022 and 09/10/2022. Plan: TPN per surgery. Continue to monitor renal function and urine output. Avoid nephrotoxins. Replace potassium and magnesium
[2022-09-14] MEDS ORDERED: POTASSIUM BICARBONATE/CIT AC 20 MEQ TABLET.EFF PO ONE (12:45)
--- NOTE | 2022-09-14 13:01 | P.PN ---
Subjective Progress Note Date: 09/14/22 CHIEF COMPLAINT: Fecal impaction HISTORY OF PRESENT ILLNESS: Patient is postop day #3 status post right c olectomy, left colectomy with end colostomy for severe ileus of the right and left colon patient had 600 bilious output through the NG tube. Her ostomy is functioning. Patient denies any nausea. She is on TPN for nutrition support. Afebrile. WBC is up from 11.6-13 Hgb is 10 minutes 97 sodium is 137 potassium 3.4 creatinine 1.43 magnesium and potassium are being replaced Patient seen and examined with Dr. coto PHYSICAL EXAM: VITAL SIGNS: Reviewed. GENERAL: Well-developed in no acute distress. HEENT: No sclera icterus. Extraocular movements grossly intact. Moist buccal mucosa. Head is atraumatic, normocephalic. ABDOMEN: Distended. firm. Nontender NEUROLOGIC: Alert and oriented. Cranial nerves II through XII grossly intact. ASSESSMENT: 1. Severe ileus status post right colectomy, left colectomy with end colostomy 2. Fecal impaction 3. Cervical myelopathy and severe cervical stenosis with disc herniation 4. Hypokalemia and hypomagnesemia 5. Hypothyroidism PLAN: -Continue NG tube for decompression -Encouraged patient to increase activity level -Encouraged patient to use incentive spirometer -Continue pain control -Continue TPN for nutrition support -Continue supportive care -GI prophylaxis Protonix and DVT prophylaxis subcu heparin Physician Anesthesiology Physician note has been reviewed by physician. Signing provider agrees with the documented findings, assessment, and plan of care. Objective - Vital Signs Vital signs: Vital Signs Temp 98.3 F 09/14/22 08:41 Pulse 75 09/14/22 08:41 Resp 16 09/14/22 08:41 BP 136/77 09/14/22 08:41 Pulse Ox 98 09/14/22 12:18 FiO2 Intake & Output 09/13/22 09/14/22 09/14/22 18:59 06:59 18:59 Intake Total 1000 Output Total 2520 2350 Balance -1520 -2350 Weight 79.379 kg Intake: Intake, IV Titration 1000 Amount Amino Acid 5%-D20w+Lytes* 1000 E* 1,000 ml @ 60 mls/hr IV .BY DURATION [facility] Rx#: [id number] Output: Gastric Drainage 100 Drainage 100 Abdomen 100 Urine 2370 2200 Stool 50 50 Other: Voiding Method Indwelling Catheter Indwelling Catheter Indwelling Catheter - Labs CBC & Chem 7: 09/14/22 06:31 09/14/22 06:31 Labs: Abnormal Lab Results - Last 24 Hours (Table) 09/13/22 09/14/22 09/14/22 Range/Units 20:29 06:31 06:31 WBC 13.0 H (3.8-10.6) k/uL RBC 3.00 L (3.80-5.40) m/uL Hgb 10.0 L (11.4-16.0) gm/dL Hct 30.1 L (34.0-46.0) % MCV 100.4 H (80.0-100.0) fL Plt Count 97 L (150-450) k/uL Neutrophils # 12.5 H (1.3-7.7) k/uL Lymphocytes # 0.2 L (1.0-4.8) k/uL Potassium 3.4 L (3.5-5.1) mmol/L Carbon Dioxide 34 H (22-30) mmol/L BUN 53 H (7-17) mg/dL Creatinine 1.43 H (0.52-1.04) mg/dL Glucose 164 H (74-99) mg/dL POC Glucose (mg/dL) 195 H (70-110) mg/dL Calcium 7.1 L (8.4-10.2) mg/dL Albumin (3.5-5.0) g/dL 09/14/22 Range/Units 06:31 WBC (3.8-10.6) k/uL RBC (3.80-5.40) m/uL Hgb (11.4-16.0) gm/dL Hct (34.0-46.0) % MCV (80.0-100.0) fL Plt Count (150-450) k/uL Neutrophils # (1.3-7.7) k/uL Lymphocytes # (1.0-4.8) k/uL Potassium (3.5-5.1) mmol/L Carbon Dioxide (22-30) mmol/L BUN (7-17) mg/dL Creatinine (0.52-1.04) mg/dL Glucose (74-99) mg/dL POC Glucose (mg/dL) (70-110) mg/dL Calcium (8.4-10.2) mg/dL Albumin 2.4 L (3.5-5.0) g/dL
[2022-09-14] MEDS: MAGNESIUM SULFATE-D5W PMX 1 GM in DEXTROSE/WATER 1 100ML.BAG IVPB SCH ×2 (13:14→14:38)
[2022-09-14] MEDS: FAMOTIDINE 20 MG/2 ML VIAL IV SCH (19:55)
--- NOTE | 2022-09-14 20:04 | P.PN ---
Subjective Progress Note Date: 09/14/22 Hypothyroidism with TSH more than 100 and low T4 on admission Small bowel obstruction both large and small bowel secondary to fecal impaction/ POD #1 from partial colectomy for colonic pseudoobstruction Severe C3-C4 spinal stenosis with myelomalacia Acute kidney injury with worsening creatinine 62 years old female with past medical history of osteoarthritis, Patient presents because of increased weakness, numbness in her hands and feet Patient states that she feels weak for 4 months, however since yesterday she said she cannot walk because of her weakness, at baseline she uses a walker. She lives in apartment with her boyfriend. Also she reports chronic numbness in her hand and feet for about a month. She denies any other numbness, no blurred vision or slurred speech. No dizziness. She denies chest pain or dyspnea. However she states that she has headache about 5/10 of one day duration, but also she reports chronic pain in her neck. She denies chest pain or dyspnea, she had normal bowel movement no vomiting no abdominal pain or tenderness however her abdomen looks significantly distended. She smokes about half pack per day, she was counseled to quit she declines also she does not want nicotine patch. No alcohol or illicit drug. She says that she supposed to be on thyroid hormone replacement therapy but she stopped taking it for 1.5 years ago because she thought she does not needed. She states that she supposed to be on vitamin D, acid reflux disease and inhaler as she has history of COPD Vitas looks stable, patient is afebrile she is not hypothermic. Labs showing mild leukocytosis of 11.3. Rest of CBC, INR is unremarkable Creatinine is trending up 1.5, it was 1.2 about 10 days ago. Trace of BMP and liver enzymes were unremarkable. TSH is more than 100, free T4 is less than 0.15 EKG showing sinus rhythm with short CO interval, T waves in the lateral limits. No significant ST-T changes Abdominal x-ray/KUB: Overall nonspecific but favor nonobstructive bowel gas pattern. Severe distal colonic fecal stasis is suspected. 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 Patient is encouraged to increase activity and continues use of incentive spirometry -- Nephrology on board for acute on chronic kidney disease; patient remains on IV fluid; appears a little hypervolemic with anasarca changes and pleural effusions on CAT scan. Status post IV Lasix given 09/09/2022 and 09/10/2022. Creatinine 1.74 yesterday. No hydronephrosis noted on recent CAT scan. Nephrology recommending to Hep-Lock IV fluids; continue to monitor strict CANDY's, renal function and electrolytes; continue to avoid nephrotoxins 09/13/2022 Patient is seen and evaluated in room at bedside and discussed with nursing staff; complains of mild to moderate respiratory distress and difficulty breathing Vital signs review shows temperature of 97.9, pulse 83, decision 16 and blood pressure 105/58 and O2 saturation remaining above 95% on 2 L Chest examination does reveal decreased breath sounds with bibasilar crackles and scattered rhonchi Lab review shows WBC of 11.6, hemoglobin of 10.3 and platelet count of 100, sodium 135, doesn't 2.9, BUN/creatinine of 50/1.38 which is improved from 47/1.45 yesterday Stat chest x-ray completed reveals pulmonary venous congestion with interstitial edema and small effusions; patient was treated with Lasix 40 mg IV 1 with plans to repeat another dose tonight - We will plan to monitor strict CANDY's and daily weights; monitor patient closely for need for any further diuretic therapy 09/14/2022 Patient is seen and evaluated in follow-up today with multiple medical consultations following. Nephrology following with signs of improvement in kidney functions. Patient continues with NG tube although less output and surgery discussing possibly removing and started clear liquids. Patient continues with significant weakness recommend physical therapy daily. Patient needs encouragement on getting up and out of the bed more often. Recommend incentive spirometer use at least 10 times every hour while awake. Recommend reviewing home medications and resuming appropriate medications as patient will be started on diet. Colostomy is functioning and patient is continued on TPN per surgery. Patient is afebrile denies chest pain or worsening shortness of breath. Patient reports she would like the NG tube removed. Review of systems: Constitutional: reports of fatigue, no reports of fever, or chills Cardiovascular: No reports of chest pain or palpitations Respiratory: No reports of worsening shortness of breath or cough GI: No reports of nausea, vomiting, or diarrhea ostomy is functioning : No reports of dysuria or retention Neurovascular: reports of realized weakness and back pain All medications have been reviewed Active Medications Acetaminophen (Acetaminophen Tab 325 Mg Tab) 325 mg PO Q6HR PRN PRN Reason: Fever and/ or Pain (1-3) Last Admin: 09/06/22 08:08 Dose: 325 mg Hydrocodone Bitart/Acetaminophen (Hydrocodone/Apap 5-325mg 1 Each Tab) 1 each PO Q6HR PRN PRN Reason: Pain (4-6) Albuterol/Ipratropium (Ipratropium-Albuterol 3 Ml Neb) 3 ml INHALATION RT-QID PRN PRN Reason: Shortness Of Breath Or Wheezing Calcium Carbonate (Calcium Carb-Vit D 500 Mg-5 Mcg Tab) 1 each NG-TUBE TID@0800,1300,1800 [facility] Last Admin: 09/14/22 13:14 Dose: 1 each Famotidine (Famotidine 20 Mg/2 Ml Vial) 20 mg IV HS [facility] Last Admin: 09/13/22 20:09 Dose: 20 mg Heparin Sodium (Porcine) (Heparin Sodium,Porcine/Pf 5,000 Unit/0.5 Ml Syringe) 5,000 unit SQ Q12HR [facility] Last Admin: 09/14/22 08:43 Dose: 5,000 unit Hydromorphone HCl (Hydromorphone 0.5 Mg/0.5 Ml Syringe) 0.5 mg IVP Q4H PRN PRN Reason: Severe Pain (Scale 7 to 10) Fat Emulsion Intravenous 250 (ml/ IV Solution) 250 mls @ 21 mls/hr IV SuTh@0800 [facility] Last Admin: 09/13/22 08:07 Dose: 21 mls/hr Parenteral Vitamin Supplement 10 ml/ Zinc/Copper/Manganese/Selenium 1 ml/ Amino Ac/Electrol/Dextrose/Calcium 1,011 mls @ 60 mls/hr IV .BY DURATION [facility] Stop: 09/14/22 21:29 Last Admin: 09/14/22 04:26 Dose: 60 mls/hr Amino Ac/Electrol/Dextrose/Calcium (Clinimix E 5%-20% Solution) 1,000 mls @ 60 mls/hr IV .BY DURATION [facility] Stop: 09/14/22 21:29 Last Admin: 09/13/22 13:41 Dose: 60 mls/hr Parenteral Vitamin Supplement 10 ml/ Zinc/Copper/Manganese/Selenium 1 ml/ Potassium Chloride 30 meq/ Amino Ac/Electrol/Dextrose/Calcium 1,026 mls @ 60 mls/hr IV .BY DURATION [facility] Potassium Chloride 30 meq/Amino Ac/Electrol/Dextrose/Calcium 1,015 mls @ 60 mls/hr IV .BY DURATION [facility] Levothyroxine Sodium (Levothyroxine Ivp 100 Mcg/5 Ml Vial) 75 mcg IV DAILY [facility] Last Admin: 09/14/22 08:44 Dose: 75 mcg Methylprednisolone Sodium Succinate (Methylprednisolone Sod Succi 125 Mg/2 Ml Vial) 60 mg IV Q12HR [facility] Last Admin: 09/14/22 08:43 Dose: 60 mg Metoclopramide HCl (Metoclopramide 5 Mg/Ml 2 Ml Vial) 10 mg IVP Q6HR [facility] Last Admin: 09/14/22 13:13 Dose: 10 mg Miscellaneous Information (Potassium Replacement Protocol 1 Each Misc) 1 each MISCELLANE DAILY PRN; Protocol PRN Reason: Per Protocol Ondansetron HCl (Ondansetron 4 Mg/2 Ml Vial) 4 mg IVP Q6HR PRN PRN Reason: Nausea And Vomiting Last Admin: 09/10/22 18:18 Dose: 4 mg Pantoprazole Sodium (Pantoprazole 40 Mg/10 Ml Vial) 40 mg IVP BID [facility] Last Admin: 09/14/22 08:43 Dose: 40 mg Pyridoxine HCl (Pyridoxine 50 Mg Tab) 50 mg PO DAILY@0800 [facility] Last Admin: 09/14/22 08:44 Dose: 50 mg Simethicone (Simethicone 40 Mg/0.6 Ml Drops 2,000 Mg/30 Ml Bottle) 80 mg PO QID [facility] Last Admin: 09/14/22 13:12 Dose: 80 mg Physical exam: GENERAL: The patient is alert and oriented x3, not in any acute distress. Well developed, well nourished. Generally weak HEENT: Pupils are round and equally reacting to light. EOMI. No scleral icterus. No conjunctival pallor. Normocephalic, atraumatic. No pharyngeal erythema. No thyromegaly. NG tube in place with about continued dark Green fluid drained noted in the canister, less today CARDIOVASCULAR: S1 and S2 muffled PULMONARY: Diminished breath sounds bilaterally with some scattered rhonchi and crackles noted ABDOMEN: Soft, tender, distended, normoactive bowel sounds. No palpable organomegaly. MUSCULOSKELETAL: No joint swelling or deformity. EXTREMITIES: No cyanosis, clubbing, or pedal edema. NEUROLOGICAL: Gross neurological examination did not reveal any focal deficits. Diffusely weak SKIN: No rashes. no petechiae. Assessment: Hypothyroidism with TSH more than 100 and low T4 on admission, improving gradually Small bowel obstruction both large and small bowel secondary to fecal impaction, status post right colectomy, left colectomy with end colostomy for severe ileus of the right and left colon Severe C3-C4 spinal stenosis with myelomalacia, requiring surgical intervention Hypocalcemia and low vitamin D, improved Acute kidney injury with worsening creatinine Chronic kidney disease stage III Possible acute urinary tract infection Versus asymptomatic bacteriuria . Finished treatment with antibiotic which is stopped. Generalized weakness secondary to above bilateral hands and feet numbness, chronic 1 month Noncompliance with medication and follow-up COPD, not an active issue Nicotine dependence GI prophylaxis DVT prophylaxis Full code Plan: Patient is continued on TPN for nutritional support and did have NG tube in place with decreased output noted and patient is slowly being started on clear liquids per surgery Continue with levothyroxine Nephrology following and kidney function improving will continue current regimen. Recommend to replace electrolytes per protocol. Potassium and magnesium will be replaced today and recommended follow-up labs Cervical spine surgery will be held until recovering from current surgery of end colostomy Orthopedic team on the case with plan for surgical intervention of severe spinal stenosis at C3-C4 once she becomes medically stable Recommend PT/OT therapy Due to multiple complex medical issues, prognosis is guarded The impression and plan of care has been dictated by Lida Singh, Nurse Practitioner as directed. Dr. Greyson MD I have performed a history and examination and MDM of this patient, discussed th e with the dictator, and agree with the dictator's assessment and plan as written ,documented as a scribe. Based on total visit time, I have performed more than 50% of the visit. Objective - Vital Signs Vital signs: Vital Signs Temp 98.3 F 09/14/22 08:41 Pulse 75 09/14/22 08:41 Resp 16 09/14/22 08:41 BP 136/77 09/14/22 08:41 Pulse Ox 98 09/14/22 08:41 FiO2 Intake & Output 09/13/22 09/14/22 09/14/22 18:59 06:59 18:59 Intake Total 1000 Output Total 2520 2350 Balance -1520 -2350 Intake: Intake, IV Titration 1000 Amount Amino Acid 5%-D20w+Lytes* 1000 E* 1,000 ml @ 60 mls/hr IV .BY DURATION [facility] Rx#: [id number] Output: Gastric Drainage 100 Drainage 100 Abdomen 100 Urine 2370 2200 Stool 50 50 Other: Voiding Method Indwelling Catheter Indwelling Catheter - Labs CBC & Chem 7: 09/14/22 06:31 09/14/22 06:31 Labs: Abnormal Lab Results - Last 24 Hours (Table) 09/13/22 09/14/22 09/14/22 Range/Units 20:29 06:31 06:31 WBC 13.0 H (3.8-10.6) k/uL RBC 3.00 L (3.80-5.40) m/uL Hgb 10.0 L (11.4-16.0) gm/dL Hct 30.1 L (34.0-46.0) % MCV 100.4 H (80.0-100.0) fL Plt Count 97 L (150-450) k/uL Neutrophils # 12.5 H (1.3-7.7) k/uL Lymphocytes # 0.2 L (1.0-4.8) k/uL Potassium 3.4 L (3.5-5.1) mmol/L Carbon Dioxide 34 H (22-30) mmol/L BUN 53 H (7-17) mg/dL Creatinine 1.43 H (0.52-1.04) mg/dL Glucose 164 H (74-99) mg/dL POC Glucose (mg/dL) 195 H (70-110) mg/dL Calcium 7.1 L (8.4-10.2) mg/dL Albumin (3.5-5.0) g/dL 09/14/22 Range/Units 06:31 WBC (3.8-10.6) k/uL RBC (3.80-5.40) m/uL Hgb (11.4-16.0) gm/dL Hct (34.0-46.0) % MCV (80.0-100.0) fL Plt Count (150-450) k/uL Neutrophils # (1.3-7.7) k/uL Lymphocytes # (1.0-4.8) k/uL Potassium (3.5-5.1) mmol/L Carbon Dioxide (22-30) mmol/L BUN (7-17) mg/dL Creatinine (0.52-1.04) mg/dL Glucose (74-99) mg/dL POC Glucose (mg/dL) (70-110) mg/dL Calcium (8.4-10.2) mg/dL Albumin 2.4 L (3.5-5.0) g/dL
[2022-09-14] MEDS: 1: MVI, ADULT NO.4 WITH VIT K 10 ML, TRACE (CONC-1ML/DOSE) 1 ML, POTASSIUM CHLORIDE 30 M IV SCH ×4 (21:09)
[2022-09-14] MEDS ORDERED: FUROSEMIDE 10 MG/ML 4 ML VIAL IV STA (21:19)
[2022-09-15] MEDS: METOCLOPRAMIDE 5 MG/ML 2 ML VIAL IVP SCH ×4 (05:48→23:29)
[2022-09-15] MEDS: PANTOPRAZOLE 40 MG/10 ML VIAL IVP SCH ×2 (08:16→20:09)
[2022-09-15] MEDS: methylPREDNISolone SOD SUCCI 125 MG/2 ML VIAL IV SCH ×2 (08:16→20:09)
[2022-09-15] MEDS: HEPARIN SODIUM,PORCINE/PF 5,000 UNIT/0.5 ML SYRINGE SQ SCH ×2 (08:16→20:09)
[2022-09-15] MEDS: PYRIDOXINE 50 MG TAB PO SCH (08:17)
[2022-09-15] MEDS: LEVOTHYROXINE IVP 100 MCG/5 ML VIAL IV SCH (08:17)
[2022-09-15] MEDS: CALCIUM CARB-VIT D 500 MG-5 MCG TAB NG-TUBE SCH ×3 (08:17→16:32)
[2022-09-15] MEDS: SIMETHICONE 40 MG/0.6 ML DROPS 2,000 MG/30 ML BOTTLE PO SCH ×4 (08:21→20:10)
[2022-09-15 10:54] LABS: Basophils % (A) 0 %; Eosinophils % (A) 0 %; HGB 10.4 gm/dL (11.4-16.0); Lymphocytes # (A) 0.2 k/uL (1.0-4.8); Lymphocytes % (A) 2 %; MCH 34.4 pg (25.0-35.0); MCHC 34.5 g/dL (31.0-37.0); MCV 99.9 fL (80.0-100.0); Mean Platelet Volume 9.3; Monocytes # (A) 0.4 k/uL (0-1.0); Monocytes % (A) 3 %; Neutrophils # (A) 11.4 k/uL (1.3-7.7); Neutrophils % (A) 94 %; RBC 3.01 m/uL (3.80-5.40); RDW 13.4 % (11.5-15.5)
[2022-09-15 10:59] LABS: Platelet Count 98 k/uL (150-450)
--- NOTE | 2022-09-15 11:16 | P.PN ---
Subjective Patient is seen for follow-up for acute kidney injury. Status post colectomy with end colostomy on 09/21/2022 Currently maintained on TPN No significant complaints today. Patient has had good output from the colostomy. Objective - Vital Signs Vital signs: Vital Signs Temp 98.0 F 09/15/22 08:13 Pulse 80 09/15/22 08:13 Resp 18 09/15/22 08:13 BP 123/86 09/15/22 08:13 Pulse Ox 95 09/15/22 08:13 FiO2 Intake & Output 09/14/22 09/15/22 09/15/22 18:59 06:59 18:59 Intake Total 120 Output Total 1450 3300 1000 Balance -1450 -3300 -880 Weight 79.379 kg Intake: Oral 120 Output: Gastric Drainage 50 Urine 1200 3300 1000 Uretheral (Otero) 3300 Stool 200 Other: Voiding Method Indwelling Catheter Indwelling Catheter Indwelling Catheter - Exam Awake, comfortable, no acute distress Examination of the heart S1 and S2 Examination lungs bilateral breath sounds are heard Abdomen is soft nontender Colostomy is intact with good output Examination lower extremity shows no evidence of edema - Labs CBC & Chem 7: 09/15/22 10:06 09/14/22 06:31 Labs: Abnormal Lab Results - Last 24 Hours (Table) 09/15/22 Range/Units 10:06 WBC 12.0 H (3.8-10.6) k/uL RBC 3.01 L (3.80-5.40) m/uL Hgb 10.4 L (11.4-16.0) gm/dL Hct 30.0 L (34.0-46.0) % Plt Count 98 L (150-450) k/uL Neutrophils # 11.4 H (1.3-7.7) k/uL Lymphocytes # 0.2 L (1.0-4.8) k/uL Assessment and Plan Assessment: 1. Acute kidney injury secondary to ATN secondary to hypovolemia. Patient has received IV fluids. Now appears a little hypervolemic with anasarca changes and pleural effusions on CAT scan. Status post IV Lasix Creatinine 1.43 yester day. No hydronephrosis noted on recent CAT scan. 2. Chronic kidney disease. Creatinine as of 08/23/2022 was 1.26. Etiology is nephrosclerosis. Establish baseline renal function. 3. Hypokalemia from poor intake. 4. Metabolic acidosis secondary to acute kidney injury. Resolved. 5. Fecal impaction with ileus. Surgery following. Underwent colectomy with end colostomy on 09/21/2022. 6. Severe hypothyroidism maintained on Synthroid. 7. Fluid overload. Improved with Lasix Plan: Repeat labs Monitor electrolytes
[2022-09-15 11:23] LABS: Calcium 7.3 mg/dL (8.4-10.2); Magnesium 1.7 mg/dL (1.6-2.3); Phosphorus 3.4 mg/dL (2.5-4.5); Potassium 3.6 mmol/L (3.5-5.1)
[2022-09-15] MEDS ORDERED: POTASSIUM BICARBONATE/CIT AC 20 MEQ TABLET.EFF PO ONE (13:00)
[2022-09-15] MEDS: MAGNESIUM SULFATE-D5W PMX 1 GM in DEXTROSE/WATER 1 100ML.BAG IVPB SCH ×3 (13:37→16:35)
[2022-09-15] MEDS: 1: MVI, ADULT NO.4 WITH VIT K 10 ML, TRACE (CONC-1ML/DOSE) 1 ML, POTASSIUM CHLORIDE 30 M IV SCH ×4 (13:49)
--- NOTE | 2022-09-15 13:53 | P.PN ---
Subjective Progress Note Date: 09/15/22 CHIEF COMPLAINT: Fecal impaction HISTORY OF PRESENT ILLNESS: Patient is postop day #4 status post right c olectomy, left colectomy with end colostomy for severe ileus of the right and left colon with megacolon related to his pseudoobstruction. Patient denies any abdominal pain. Her ostomy is functioning. She does have stool present. Denies any nausea or vomiting. She is tolerating clear liquid. Afebrile. WBC 12 Hgb 10.4 platelets 98 signs 135 creatinine is 1.30 NG tube discontinued yesterday Patient seen and examined with Dr. coto PHYSICAL EXAM: VITAL SIGNS: Reviewed. GENERAL: Well-developed in no acute distress. HEENT: No sclera icterus. Extraocular movements grossly intact. Moist buccal mucosa. Head is atraumatic, normocephalic. ABDOMEN: Soft nondistended Nontender ostomy with stool present NEUROLOGIC: Alert and oriented. Cranial nerves II through XII grossly intact. ASSESSMENT: 1. Severe ileus status post right colectomy, left colectomy with end colostomy 2. Fecal impaction 3. Cervical myelopathy and severe cervical stenosis with disc herniation PLAN: -Advance diet to full liquid -Encouraged patient to increase activity level -Encouraged patient to use incentive spirometer -Continue pain control -Continue TPN for nutrition support -If patient tolerating diet tomorrow anticipate weaning off the TPN -Continue supportive care -GI prophylaxis Protonix and DVT prophylaxis subcu heparin Physician Grill Associate note has been reviewed by physician. Signing provider agrees with the documented findings, assessment, and plan of care. Objective - Vital Signs Vital signs: Vital Signs Temp 98.0 F 09/15/22 08:13 Pulse 80 09/15/22 08:13 Resp 18 09/15/22 08:13 BP 123/86 09/15/22 08:13 Pulse Ox 95 09/15/22 08:13 FiO2 Intake & Output 09/14/22 09/15/22 09/15/22 18:59 06:59 18:59 Intake Total 1120 Output Total 1450 3300 1000 Balance -1450 -3300 120 Weight 79.379 kg Intake: Intake, IV Titration 1000 Amount Potassium Chloride 30 meq 1000 In Amino Acid 5%-D20w+ Lytes*E* 1,000 ml @ 60 mls/hr IV .BY DURATION [facility] Rx#:[id number] Oral 120 Output: Gastric Drainage 50 Urine 1200 3300 1000 Uretheral (Otero) 3300 Stool 200 Other: Voiding Method Indwelling Catheter Indwelling Catheter Indwelling Catheter - Labs CBC & Chem 7: 09/15/22 10:06 09/15/22 10:06 Labs: Abnormal Lab Results - Last 24 Hours (Table) 09/15/22 09/15/22 Range/Units 10:06 10:06 WBC 12.0 H (3.8-10.6) k/uL RBC 3.01 L (3.80-5.40) m/uL Hgb 10.4 L (11.4-16.0) gm/dL Hct 30.0 L (34.0-46.0) % Plt Count 98 L (150-450) k/uL Neutrophils # 11.4 H (1.3-7.7) k/uL Lymphocytes # 0.2 L (1.0-4.8) k/uL Sodium 135 L (137-145) mmol/L Chloride 95 L (98-107) mmol/L Carbon Dioxide 37 H (22-30) mmol/L BUN 53 H (7-17) mg/dL Creatinine 1.30 H (0.52-1.04) mg/dL Glucose 164 H (74-99) mg/dL Calcium 7.3 L (8.4-10.2) mg/dL
--- NOTE | 2022-09-15 17:13 | P.PN ---
Subjective Progress Note Date: 09/15/22 Hypothyroidism with TSH more than 100 and low T4 on admission Small bowel obstruction both large and small bowel secondary to fecal impaction/ POD #1 from partial colectomy for colonic pseudoobstruction Severe C3-C4 spinal stenosis with myelomalacia Acute kidney injury with worsening creatinine 62 years old female with past medical history of osteoarthritis, Patient presents because of increased weakness, numbness in her hands and feet Patient states that she feels weak for 4 months, however since yesterday she said she cannot walk because of her weakness, at baseline she uses a walker. She lives in apartment with her boyfriend. Also she reports chronic numbness in her hand and feet for about a month. She denies any other numbness, no blurred vision or slurred speech. No dizziness. She denies chest pain or dyspnea. However she states that she has headache about 5/10 of one day duration, but also she reports chronic pain in her neck. She denies chest pain or dyspnea, she had normal bowel movement no vomiting no abdominal pain or tenderness however her abdomen looks significantly distended. She smokes about half pack per day, she was counseled to quit she declines also she does not want nicotine patch. No alcohol or illicit drug. She says that she supposed to be on thyroid hormone replacement therapy but she stopped taking it for 1.5 years ago because she thought she does not needed. She states that she supposed to be on vitamin D, acid reflux disease and inhaler as she has history of COPD Vitas looks stable, patient is afebrile she is not hypothermic. Labs showing mild leukocytosis of 11.3. Rest of CBC, INR is unremarkable Creatinine is trending up 1.5, it was 1.2 about 10 days ago. Trace of BMP and liver enzymes were unremarkable. TSH is more than 100, free T4 is less than 0.15 EKG showing sinus rhythm with short LA interval, T waves in the lateral limits. No significant ST-T changes Abdominal x-ray/KUB: Overall nonspecific but favor nonobstructive bowel gas pattern. Severe distal colonic fecal stasis is suspected. 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 Patient is encouraged to increase activity and continues use of incentive spirometry -- Nephrology on board for acute on chronic kidney disease; patient remains on IV fluid; appears a little hypervolemic with anasarca changes and pleural effusions on CAT scan. Status post IV Lasix given 09/09/2022 and 09/10/2022. Creatinine 1.74 yesterday. No hydronephrosis noted on recent CAT scan. Nephrology recommending to Hep-Lock IV fluids; continue to monitor strict CANDY's, renal function and electrolytes; continue to avoid nephrotoxins 09/13/2022 Patient is seen and evaluated in room at bedside and discussed with nursing staff; complains of mild to moderate respiratory distress and difficulty breathing Vital signs review shows temperature of 97.9, pulse 83, decision 16 and blood pressure 105/58 and O2 saturation remaining above 95% on 2 L Chest examination does reveal decreased breath sounds with bibasilar crackles and scattered rhonchi Lab review shows WBC of 11.6, hemoglobin of 10.3 and platelet count of 100, sodium 135, doesn't 2.9, BUN/creatinine of 50/1.38 which is improved from 47/1.45 yesterday Stat chest x-ray completed reveals pulmonary venous congestion with interstitial edema and small effusions; patient was treated with Lasix 40 mg IV 1 with plans to repeat another dose tonight - We will plan to monitor strict CANDY's and daily weights; monitor patient closely for need for any further diuretic therapy 09/14/2022 Patient is seen and evaluated in follow-up today with multiple medical consultations following. Nephrology following with signs of improvement in kidney functions. Patient continues with NG tube although less output and surgery discussing possibly removing and started clear liquids. Patient continues with significant weakness recommend physical therapy daily. Patient needs encouragement on getting up and out of the bed more often. Recommend incentive spirometer use at least 10 times every hour while awake. Recommend reviewing home medications and resuming appropriate medications as patient will be started on diet. Colostomy is functioning and patient is continued on TPN per surgery. Patient is afebrile denies chest pain or worsening shortness of breath. Patient reports she would like the NG tube removed. 09/15/2022 Patient is seen and evaluated this morning with multiple medical consultations following. Patient did have NG tube removed and is continued on a full liquid diet. Ostomy is functioning and patient is continued on TPN for now. Patient with significant weakness and case management following working on discharge planning to ECF. Patient is status post right colectomy with left colectomy and end colostomy for severe ileus of the right and left colon with megacolon related to pseudoobstruction. Patient does have a functioning ostomy with stool present. Diet is being advanced to full liquids today and working on possibly weaning TPN if patient continues to tolerate diet. Patient is afebrile denies chest pain or shortness of breath. WBC is 12.0 with a hemoglobin of 10.4 today, platelets are low at 98 and will monitor closely. Potassium slightly improved at 3.6 and kidney functions appear stable with creatinine of 1.3. Magnesium is 1.7 and will replace per protocol. Case management is following working on discharge planning to [facility]. Review of systems: Constitutional: reports of fatigue, no reports of fever, or chills Cardiovascular: No reports of chest pain or palpitations Respiratory: No reports of worsening shortness of breath or cough GI: No reports of nausea, vomiting, or diarrhea, ostomy is functioning : No reports of dysuria or retention Neurovascular: reports of realized weakness and back pain All medications have been reviewed Active Medications Acetaminophen (Acetaminophen Tab 325 Mg Tab) 325 mg PO Q6HR PRN PRN Reason: Fever and/ or Pain (1-3) Last Admin: 09/06/22 08:08 Dose: 325 mg Hydrocodone Bitart/Acetaminophen (Hydrocodone/Apap 5-325mg 1 Each Tab) 1 each PO Q6HR PRN PRN Reason: Pain (4-6) Albuterol/Ipratropium (Ipratropium-Albuterol 3 Ml Neb) 3 ml INHALATION RT-QID PRN PRN Reason: Shortness Of Breath Or Wheezing Calcium Carbonate (Calcium Carb-Vit D 500 Mg-5 Mcg Tab) 1 each NG-TUBE TID@0800,1300,1800 [facility] Last Admin: 09/15/22 16:32 Dose: 1 each Famotidine (Famotidine 20 Mg/2 Ml Vial) 20 mg IV HS [facility] Last Admin: 09/14/22 19:55 Dose: 20 mg Heparin Sodium (Porcine) (Heparin Sodium,Porcine/Pf 5,000 Unit/0.5 Ml Syringe) 5,000 unit SQ Q12HR [facility] Last Admin: 09/15/22 08:16 Dose: 5,000 unit Hydromorphone HCl (Hydromorphone 0.5 Mg/0.5 Ml Syringe) 0.5 mg IVP Q4H PRN PRN Reason: Severe Pain (Scale 7 to 10) Fat Emulsion Intravenous 250 (ml/ IV Solution) 250 mls @ 21 mls/hr IV SuTh@0800 [facility] Last Admin: 09/13/22 08:07 Dose: 21 mls/hr Parenteral Vitamin Supplement 10 ml/ Zinc/Copper/Manganese/Selenium 1 ml/ Potassium Chloride 30 meq/ Amino Ac/Electrol/Dextrose/Calcium 1,026 mls @ 60 mls/hr IV .BY DURATION [facility] Potassium Chloride 30 meq/Amino Ac/Electrol/Dextrose/Calcium 1,015 mls @ 60 mls/hr IV .BY DURATION [facility] Last Admin: 09/15/22 13:49 Dose: 60 mls/hr Levothyroxine Sodium (Levothyroxine Ivp 100 Mcg/5 Ml Vial) 75 mcg IV DAILY [facility] Last Admin: 09/15/22 08:17 Dose: 75 mcg Methylprednisolone Sodium Succinate (Methylprednisolone Sod Succi 125 Mg/2 Ml Vial) 60 mg IV Q12HR [facility] Last Admin: 09/15/22 08:16 Dose: 60 mg Metoclopramide HCl (Metoclopramide 5 Mg/Ml 2 Ml Vial) 10 mg IVP Q6HR [facility] Last Admin: 09/15/22 16:32 Dose: 10 mg Miscellaneous Information (Potassium Replacement Protocol 1 Each Misc) 1 each MISCELLANE DAILY PRN; Protocol PRN Reason: Per Protocol Ondansetron HCl (Ondansetron 4 Mg/2 Ml Vial) 4 mg IVP Q6HR PRN PRN Reason: Nausea And Vomiting Last Admin: 09/10/22 18:18 Dose: 4 mg Pantoprazole Sodium (Pantoprazole 40 Mg/10 Ml Vial) 40 mg IVP BID [facility] Last Admin: 09/15/22 08:16 Dose: 40 mg Pyridoxine HCl (Pyridoxine 50 Mg Tab) 50 mg PO DAILY@0800 [facility] Last Admin: 09/15/22 08:17 Dose: 50 mg Simethicone (Simethicone 40 Mg/0.6 Ml Drops 2,000 Mg/30 Ml Bottle) 80 mg PO QID [facility] Last Admin: 09/15/22 16:33 Dose: 80 mg Physical exam: GENERAL: The patient is alert and oriented x3, lethargic but easily arousable. Well developed, well nourished. Generally weak HEENT: Pupils are round and equally reacting to light. EOMI. No scleral icterus. No conjunctival pallor. Normocephalic, atraumatic. No pharyngeal erythema. No thyromegaly. CARDIOVASCULAR: S1 and S2 muffled PULMONARY: Diminished breath sounds bilaterally with some scattered rhonchi and crackles noted ABDOMEN: Soft, tender, mildly distended, normoactive bowel sounds. No palpable organomegaly. MUSCULOSKELETAL: No joint swelling or deformity. EXTREMITIES: No cyanosis, clubbing, or pedal edema. NEUROLOGICAL: Gross neurological examination did not reveal any focal deficits. Diffusely weak SKIN: No rashes. no petechiae. Assessment: Hypothyroidism with TSH more than 100 and low T4 on admission, improving gradually Small bowel obstruction both large and small bowel secondary to fecal impaction, status post right colectomy, left colectomy with end colostomy for severe ileus of the right and left colon Severe C3-C4 spinal stenosis with myelomalacia, requiring surgical intervention although may need to be reevaluated at a later date given current surgery and significant weakness Hypocalcemia and low vitamin D, improved Acute kidney injury with worsening creatinine Chronic kidney disease stage III Possible acute urinary tract infection Versus asymptomatic bacteriuria . Finished treatment with antibiotic which is stopped. Generalized weakness secondary to above bilateral hands and feet numbness, chronic 1 month Noncompliance with medication and follow-up COPD, not an active issue Nicotine dependence GI prophylaxis DVT prophylaxis Full code Plan: Patient is continued on TPN for nutritional support and did have NG tube removed and tolerating clear liquids. Patient does have a functioning ostomy and diet being advanced to full liquids per surgery recommendations and will consider possibly weaning from TPN in the next 24-48 hours. Continue with levothyroxine, will need follow-up outpatient with repeat labs Nephrology following and kidney function improving will continue current regimen. Recommend to replace electrolytes per protocol. A.m. labs ordered Cervical spine surgery will be held until recovering from current surgery of end colostomy Orthopedic team on the case with plan for surgical intervention of severe spinal stenosis at C3-C4 once she becomes medically stable Recommend PT/OT therapy and case management is following working on discharge planning to possible ECF Due to multiple complex medical issues, prognosis is guarded The impression and plan of care has been dictated by Lida Singh, Nurse Practitioner as directed. Dr. Greyson MD I have performed a history and examination and MDM of this patient, discussed the same with the dictator, and agree with the dictator's assessment and plan as written ,documented as a scribe. Based on total visit time, I have performed more than 50% of the visit. Objective - Vital Signs Vital signs: Vital Signs Temp 97.8 F 09/15/22 16:31 Pulse 80 09/15/22 16:31 Resp 16 09/15/22 16:31 BP 138/77 09/15/22 16:31 Pulse Ox 93 L 09/15/22 16:31 FiO2 Intake & Output 09/14/22 09/15/22 09/15/22 18:59 06:59 18:59 Intake Total 1360 Output Total 1450 3300 1100 Balance -1450 -3300 260 Weight 79.379 kg Intake: Intake, IV Titration 1000 Amount Potassium Chloride 30 meq 1000 In Amino Acid 5%-D20w+ Lytes*E* 1,000 ml @ 60 mls/hr IV .BY DURATION [facility] Rx#:[id number] Oral 360 Output: Gastric Drainage 50 Urine 1200 3300 1000 Uretheral (Otero) 3300 Stool 200 100 Other: Voiding Method Indwelling Catheter Indwelling Catheter Indwelling Catheter - Labs CBC & Chem 7: 09/15/22 10:06 09/15/22 10:06 Labs: Abnormal Lab Results - Last 24 Hours (Table) 09/15/22 09/15/22 Range/Units 10:06 10:06 WBC 12.0 H (3.8-10.6) k/uL RBC 3.01 L (3.80-5.40) m/uL Hgb 10.4 L (11.4-16.0) gm/dL Hct 30.0 L (34.0-46.0) % Plt Count 98 L (150-450) k/uL Neutrophils # 11.4 H (1.3-7.7) k/uL Lymphocytes # 0.2 L (1.0-4.8) k/uL Sodium 135 L (137-145) mmol/L Chloride 95 L (98-107) mmol/L Carbon Dioxide 37 H (22-30) mmol/L BUN 53 H (7-17) mg/dL Creatinine 1.30 H (0.52-1.04) mg/dL Glucose 164 H (74-99) mg/dL Calcium 7.3 L (8.4-10.2) mg/dL
[2022-09-15] MEDS: FAMOTIDINE 20 MG/2 ML VIAL IV SCH (20:09)
[2022-09-15] MEDS: HYDROmorphone 0.5 MG/0.5 ML SYRINGE IVP PRN (21:12)
[2022-09-16] MEDS: METOCLOPRAMIDE 5 MG/ML 2 ML VIAL IVP SCH ×4 (05:13→23:15)
[2022-09-16] MEDS: 1: MVI, ADULT NO.4 WITH VIT K 10 ML, TRACE (CONC-1ML/DOSE) 1 ML, POTASSIUM CHLORIDE 30 M IV SCH ×12 (05:16→23:07)
[2022-09-16 08:15] LABS: Calcium 6.7 mg/dL (8.4-10.2); Magnesium 1.9 mg/dL (1.6-2.3); Phosphorus 3.3 mg/dL (2.5-4.5); Potassium 3.8 mmol/L (3.5-5.1)
[2022-09-16] MEDS: HEPARIN SODIUM,PORCINE/PF 5,000 UNIT/0.5 ML SYRINGE SQ SCH ×2 (08:44→20:10)
[2022-09-16] MEDS: PYRIDOXINE 50 MG TAB PO SCH (08:44)
[2022-09-16] MEDS: CALCIUM CARB-VIT D 500 MG-5 MCG TAB NG-TUBE SCH ×3 (08:44→18:02)
[2022-09-16] MEDS: methylPREDNISolone SOD SUCCI 125 MG/2 ML VIAL IV SCH ×2 (08:45→20:10)
[2022-09-16] MEDS: PANTOPRAZOLE 40 MG/10 ML VIAL IVP SCH ×2 (08:45→20:10)
[2022-09-16] MEDS: LEVOTHYROXINE IVP 100 MCG/5 ML VIAL IV SCH (08:45)
[2022-09-16] MEDS: SIMETHICONE 40 MG/0.6 ML DROPS 2,000 MG/30 ML BOTTLE PO SCH ×4 (08:46→23:08)
--- NOTE | 2022-09-16 15:30 | P.PN ---
Subjective Progress Note Date: 09/16/22 CHIEF COMPLAINT: Fecal impaction HISTORY OF PRESENT ILLNESS: Patient is postop day #5 status post right c olectomy, left colectomy with end colostomy for severe ileus of the right and left colon with megacolon related to pseudoobstruction. Patient denies any abdominal pain. Her ostomy is functioning. Denies any nausea or vomiting. She is tolerating full liquids. But only eating about 25% of her tray. she has TPN. Afebrile. WBC 12 H3 10.4 platelets 98 sodium is 135 potassium 3.8 creatinine 1.0 to magnesium 1.9 Patient seen and examined with Dr. coto PHYSICAL EXAM: VITAL SIGNS: Reviewed. GENERAL: Well-developed in no acute distress. HEENT: No sclera icterus. Extraocular movements grossly intact. Moist buccal mucosa. Head is atraumatic, normocephalic. ABDOMEN: Soft nondistended Nontender ostomy with stool present NEUROLOGIC: Alert and oriented. Cranial nerves II through XII grossly intact. ASSESSMENT: 1. Severe ileus with megacolon related to pseudoobstruction status post right colectomy, left colectomy with end colostomy 2. Fecal impaction 3. Cervical myelopathy and severe cervical stenosis with disc herniation PLAN: -Advance diet to regular -Start to cut back on TPN by 1/2 and hopefully wean off TPN by tomorrow -Anticipate discharge to ECF tomorrow -Encouraged patient to use incentive spirometer -Continue pain control -Continue supportive care -GI prophylaxis Protonix and DVT prophylaxis subcu heparin Physician Fiber Analyst note has been reviewed by physician. Signing provider agrees with the documented findings, assessment, and plan of care. Objective - Vital Signs Vital signs: Vital Signs Temp 96.9 F L 09/16/22 12:00 Pulse 82 09/16/22 12:00 Resp 18 09/16/22 13:38 BP 126/84 09/16/22 12:00 Pulse Ox 92 L 09/16/22 12:00 FiO2 Intake & Output 09/15/22 09/16/22 09/16/22 18:59 06:59 18:59 Intake Total 1360 720 480 Output Total 1100 1100 1200 Balance 260 -380 -720 Weight 79.379 kg Intake: Intake, IV Titration 1000 720 Amount Mvi, Adult No.4 with Vit 720 K 10 ml Trace (Conc-1Ml/ Dose) 1 ml Potassium Chloride 30 meq In Amino Acid 5%-D20w+Lytes*E* 1, 000 ml @ 60 mls/hr IV .BY DURATION [facility] Rx#: [id number] Potassium Chloride 30 meq 1000 In Amino Acid 5%-D20w+ Lytes*E* 1,000 ml @ 60 mls/hr IV .BY DURATION [facility] Rx#:[id number] Oral 360 480 Output: Urine 2865 342 3150 Stool 100 200 Other: Voiding Method Indwelling Catheter Indwelling Catheter Indwelling Catheter - Labs CBC & Chem 7: 09/15/22 10:06 09/16/22 06:57 Labs: Abnormal Lab Results - Last 24 Hours (Table) 09/16/22 Range/Units 06:57 Sodium 135 L (137-145) mmol/L Carbon Dioxide 34 H (22-30) mmol/L BUN 56 H (7-17) mg/dL Glucose 142 H (74-99) mg/dL Calcium 6.7 L (8.4-10.2) mg/dL
--- NOTE | 2022-09-16 16:03 | P.PN ---
Subjective Patient is seen for follow-up for acute kidney injury. Status post colectomy with end colostomy on 09/21/2022 Currently maintained on TPN No significant complaints today. Patient has had good output from the colostomy. Cr down to 1.0 today. Objective - Vital Signs Vital signs: Vital Signs Temp 99.0 F 09/16/22 15:28 Pulse 81 09/16/22 15:28 Resp 20 09/16/22 15:28 BP 124/67 09/16/22 15:28 Pulse Ox 94 L 09/16/22 15:28 FiO2 Intake & Output 09/15/22 09/16/22 09/16/22 18:59 06:59 18:59 Intake Total 1360 720 480 Output Total 1100 1100 1200 Balance 260 -380 -720 Weight 79.379 kg Intake: Intake, IV Titration 1000 720 Amount Mvi, Adult No.4 with Vit 720 K 10 ml Trace (Conc-1Ml/ Dose) 1 ml Potassium Chloride 30 meq In Amino Acid 5%-D20w+Lytes*E* 1, 000 ml @ 60 mls/hr IV .BY DURATION [facility] Rx#: [id number] Potassium Chloride 30 meq 1000 In Amino Acid 5%-D20w+ Lytes*E* 1,000 ml @ 60 mls/hr IV .BY DURATION [facility] Rx#:[id number] Oral 360 480 Output: Urine 0514 474 5585 Stool 100 200 Other: Voiding Method Indwelling Catheter Indwelling Catheter Indwelling Catheter - Exam Awake, comfortable, no acute distress Examination of the heart S1 and S2 Examination lungs bilateral breath sounds are heard Abdomen is soft nontender Colostomy is intact with good output Examination lower extremity shows no evidence of edema - Labs CBC & Chem 7: 09/15/22 10:06 09/16/22 06:57 Labs: Abnormal Lab Results - Last 24 Hours (Table) 09/16/22 Range/Units 06:57 Sodium 135 L (137-145) mmol/L Carbon Dioxide 34 H (22-30) mmol/L BUN 56 H (7-17) mg/dL Glucose 142 H (74-99) mg/dL Calcium 6.7 L (8.4-10.2) mg/dL Assessment and Plan Assessment: 1. Acute kidney injury secondary to ATN. Patient has received IV fluids. Now appears a little hypervolemic with anasarca changes and pleural effusions on CAT scan. Status post IV Lasix Creatinine 1.0 today. No hydronephrosis noted on recent CAT scan. 2. Chronic kidney disease. Creatinine as of 08/23/2022 was 1.26. Etiology is nephrosclerosis. Establish baseline renal function. 3. Hypokalemia from poor intake. 4. Metabolic acidosis secondary to acute kidney injury. Resolved. 5. Fecal impaction with ileus. Surgery following. Underwent colectomy with end colostomy on 09/21/2022. 6. Severe hypothyroidism maintained on Synthroid. 7. Fluid overload. Improved with Lasix Plan: Repeat labs Monitor electrolytes
[2022-09-16] MEDS: ACETAMINOPHEN TAB 325 MG TAB PO PRN (16:32)
[2022-09-16] MEDS: FAMOTIDINE 20 MG/2 ML VIAL IV SCH (20:10)
--- NOTE | 2022-09-17 00:56 | P.PN ---
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 She lives in apartment with her boyfriend. Also she reports chronic numbness in her hand and feet for about a month. She denies any other numbness, no blurred vision or slurred speech. No dizziness. She denies chest pain or dyspnea. However she states that she has headache about 5/10 of one day duration, but also she reports chronic pain in her neck. She denies chest pain or dyspnea, she had normal bowel movement no vomiting no abdominal pain or tenderness however her abdomen looks significantly distended. She smokes about half pack per day, she was counseled to quit she declines also she does not want nicotine patch. No alcohol or illicit drug. She says that she supposed to be on thyroid hormone replacement therapy but she stopped taking it for 1.5 years ago because she thought she does not needed. She states that she supposed to be on vitamin D, acid reflux disease and inhaler as she has history of COPD Vitas looks stable, patient is afebrile she is not hypothermic. Labs showing mild leukocytosis of 11.3. Rest of CBC, INR is unremarkable Creatinine is trending up 1.5, it was 1.2 about 10 days ago. Trace of BMP and liver enzymes were unremarkable. TSH is more than 100, free T4 is less than 0.15 EKG showing sinus rhythm with short DE interval, T waves in the lateral limits. No significant ST-T changes Abdominal x-ray/KUB: Overall nonspecific but favor nonobstructive bowel gas pattern. Severe distal colonic fecal stasis is suspected. 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 Patient is encouraged to increase activity and continues use of incentive spirometry -- Nephrology on board for acute on chronic kidney disease; patient remains on IV fluid; appears a little hypervolemic with anasarca changes and pleural effusions on CAT scan. Status post IV Lasix given 09/09/2022 and 09/10/2022. Creatinine 1.74 yesterday. No hydronephrosis noted on recent CAT scan. Nephrology recommending to Hep-Lock IV fluids; continue to monitor strict CANDY's, renal function and electrolytes; continue to avoid nephrotoxins 09/13/2022 Patient is seen and evaluated in room at bedside and discussed with nursing staff; complains of mild to moderate respiratory distress and difficulty breathing Vital signs review shows temperature of 97.9, pulse 83, decision 16 and blood pressure 105/58 and O2 saturation remaining above 95% on 2 L Chest examination does reveal decreased breath sounds with bibasilar crackles and scattered rhonchi Lab review shows WBC of 11.6, hemoglobin of 10.3 and platelet count of 100, sodium 135, doesn't 2.9, BUN/creatinine of 50/1.38 which is improved from 47/1.45 yesterday Stat chest x-ray completed reveals pulmonary venous congestion with interstitial edema and small effusions; patient was treated with Lasix 40 mg IV 1 with plans to repeat another dose tonight - We will plan to monitor strict CANDY's and daily weights; monitor patient closely for need for any further diuretic therapy 09/14/2022 Patient is seen and evaluated in follow-up today with multiple medical consultations following. Nephrology following with signs of improvement in kidney functions. Patient continues with NG tube although less output and surgery discussing possibly removing and started clear liquids. Patient continues with significant weakness recommend physical therapy daily. Patient needs encouragement on getting up and out of the bed more often. Recommend incentive spirometer use at least 10 times every hour while awake. Recommend reviewing home medications and resuming appropriate medications as patient will be started on diet. Colostomy is functioning and patient is continued on TPN per surgery. Patient is afebrile denies chest pain or worsening shortness of breath. Patient reports she would like the NG tube removed. 09/15/2022 Patient is seen and evaluated this morning with multiple medical consultations following. Patient did have NG tube removed and is continued on a full liquid diet. Ostomy is functioning and patient is continued on TPN for now. Patient with significant weakness and case management following working on discharge planning to [facility]. Patient is status post right colectomy with left colectomy and end colostomy for severe ileus of the right and left colon with megacolon related to pseudoobstruction. Patient does have a functioning ostomy with stool present. Diet is being advanced to full liquids today and working on possibly weaning TPN if patient continues to tolerate diet. Patient is afebrile denies chest pain or shortness of breath. WBC is 12.0 with a hemoglobin of 10.4 today, platelets are low at 98 and will monitor closely. Potassium slightly improved at 3.6 and kidney functions appear stable with creatinine of 1.3. Magnesium is 1.7 and will replace per protocol. Case management is following working on discharge planning to [facility] patient is accepted. 09/16/2022 Patient is seen and evaluated in follow-up today and feeling better. Patient had NG tube removed and tolerating diet functioning ostomy. Patient continues with significant weakness and has been working with physical therapy daily. Pain slightly more manageable and recommend limiting narcotic use. Patient continues on TPN although weaning with possible discontinuing tomorrow. Per surgery pathology report was positive for neoplasm and oncology consulted. Patient will need outpatient follow-up with orthopedics as well as oncology once discharged from [facility]. Case management following and working on insurance authorization. Febrile denies chest pain or shortness of breath. No reports of nausea or vomiting and again patient is tolerating oral intake. Diet being advanced per surgery. Recommend small frequent meals. Review of systems: Constitutional: reports of fatigue, no reports of fever, or chills Cardiovascular: No reports of chest pain or palpitations Respiratory: No reports of worsening shortness of breath or cough GI: No reports of nausea, vomiting, or diarrhea, ostomy is functioning : No reports of dysuria or retention Neurovascular: reports of realized weakness All medications have been reviewed Physical exam: GENERAL: The patient is alert and oriented x3, lethargic but easily arousable. Well developed, well nourished. Generally weak HEENT: Pupils are round and equally reacting to light. EOMI. No scleral icterus. No conjunctival pallor. Normocephalic, atraumatic. No pharyngeal erythema. No thyromegaly. CARDIOVASCULAR: S1 and S2 muffled PULMONARY: Diminished breath sounds bilaterally with some scattered rhonchi noted ABDOMEN: Soft, less tender, mildly distended, normoactive bowel sounds. No palpable organomegaly. MUSCULOSKELETAL: No joint swelling or deformity. EXTREMITIES: No cyanosis, clubbing, or pedal edema. NEUROLOGICAL: Gross neurological examination did not reveal any focal deficits. Diffusely weak SKIN: No rashes. no petechiae. Assessment: Hypothyroidism with TSH more than 100 and low T4 on admission, improving gradually Small bowel obstruction both large and small bowel secondary to fecal impaction, status post right colectomy, left colectomy with end colostomy for severe ileus of the right and left colon, pathology report is positive for neoplasm and oncology consulted Severe C3-C4 spinal stenosis with myelomalacia, requiring surgical intervention although will need to be reevaluated at a later date once stabilized from curr ent illness Hypocalcemia and low vitamin D, improved Acute kidney injury with worsening creatinine Chronic kidney disease stage III Possible acute urinary tract infection Versus asymptomatic bacteriuria . Finished treatment with antibiotic which is stopped. Generalized weakness secondary to above bilateral hands and feet numbness, chronic 1 month Noncompliance with medication and follow-up COPD, not an active issue Nicotine dependence GI prophylaxis DVT prophylaxis Full code Plan: Patient is continued on TPN for nutritional support and is tolerating diet being advanced per surgery and will begin weaning TPN and possibly discontinue in 24 hours. Ostomy is functioning Recommend PT/OT therapy daily patient is significantly weak and will be going to rehab and case management working on insurance authorization Continue with levothyroxine, will need follow-up outpatient with repeat labs in the next 4 weeks Nephrology following and kidney function improving will continue current re gimen. Recommend to replace electrolytes per protocol. A.m. labs ordered Orthopedic team on the case with plan for surgical intervention of severe spinal stenosis at C3-C4 once she becomes medically stable Procedure surgery pathology report was positive for neoplasm and oncology has been consulted. Will need to discuss further with consultations upon discharge planning and patient will likely need follow-up in the outpatient setting once discharged from [facility] to discuss treatment plans moving forward. Due to multiple complex medical issues, prognosis is guarded The impression and plan of care has been dictated by Lida Singh, Nurse Practitioner as directed. Dr. Greyson MD I have performed a history and examination and MDM of this patient, discussed the same with the dictator, and agree with the dictator's assessment and plan as written ,documented as a scribe. Based on total visit time, I have performed more than 50% of the visit. Objective - Vital Signs Vital signs: Vital Signs Temp 96.9 F L 09/16/22 08:00 Pulse 78 09/16/22 08:00 Resp 16 09/16/22 08:00 BP 125/68 09/16/22 08:00 Pulse Ox 92 L 09/16/22 08:00 FiO2 Intake & Output 09/15/22 09/16/22 09/16/22 18:59 06:59 18:59 Intake Total 1360 720 240 Output Total 1100 1100 Balance 260 -380 240 Weight 79.379 kg Intake: Intake, IV Titration 1000 720 Amount Mvi, Adult No.4 with Vit 720 K 10 ml Trace (Conc-1Ml/ Dose) 1 ml Potassium Chloride 30 meq In Amino Acid 5%-D20w+Lytes*E* 1, 000 ml @ 60 mls/hr IV .BY DURATION [facility] Rx#: [id number] Potassium Chloride 30 meq 1000 In Amino Acid 5%-D20w+ Lytes*E* 1,000 ml @ 60 mls/hr IV .BY DURATION [facility] Rx#:[id number] Oral 360 240 Output: Urine 1000 900 Stool 100 200 Other: Voiding Method Indwelling Catheter Indwelling Catheter Indwelling Catheter - Labs CBC & Chem 7: 09/15/22 10:06 09/16/22 06:57 Labs: Abnormal Lab Results - Last 24 Hours (Table) 09/16/22 Range/Units 06:57 Sodium 135 L (137-145) mmol/L Carbon Dioxide 34 H (22-30) mmol/L BUN 56 H (7-17) mg/dL Glucose 142 H (74-99) mg/dL Calcium 6.7 L (8.4-10.2) mg/dL
[2022-09-17] MEDS: METOCLOPRAMIDE 5 MG/ML 2 ML VIAL IVP SCH ×2 (05:20→11:36)
[2022-09-17 06:27] LABS: Glucose,Whole Blood 100 mg/dL (70-110)
[2022-09-17] MEDS: PANTOPRAZOLE 40 MG/10 ML VIAL IVP SCH (08:15)
[2022-09-17] MEDS: HYDROmorphone 0.5 MG/0.5 ML SYRINGE IVP PRN (08:15)
[2022-09-17] MEDS: methylPREDNISolone SOD SUCCI 125 MG/2 ML VIAL IV SCH (08:15)
[2022-09-17] MEDS: LEVOTHYROXINE IVP 100 MCG/5 ML VIAL IV SCH (08:15)
[2022-09-17] MEDS: SIMETHICONE 40 MG/0.6 ML DROPS 2,000 MG/30 ML BOTTLE PO SCH ×3 (08:16→16:36)
[2022-09-17] MEDS: PYRIDOXINE 50 MG TAB PO SCH (08:16)
[2022-09-17] MEDS: HEPARIN SODIUM,PORCINE/PF 5,000 UNIT/0.5 ML SYRINGE SQ SCH (08:16)
[2022-09-17] MEDS: CALCIUM CARB-VIT D 500 MG-5 MCG TAB NG-TUBE SCH ×3 (08:16→16:36)
[2022-09-17 08:23] VITALS: RESP 16
[2022-09-17 09:26] LABS: Albumin 2.9 g/dL (3.5-5.0); Calcium 7.2 mg/dL (8.4-10.2); Magnesium 1.7 mg/dL (1.6-2.3); Phosphorus 3.4 mg/dL (2.5-4.5); Potassium 4.6 mmol/L (3.5-5.1); Total Bilirubin 0.6 mg/dL (0.2-1.3); Total Protein 5.4 g/dL (6.3-8.2)
--- NOTE | 2022-09-17 11:27 | P.PN ---
Subjective Patient is seen for follow-up for acute kidney injury. Status post colectomy with end colostomy on 09/21/2022 Off of TPN No significant complaints today. Patient has had good output from the colostomy. Cr down to 1.0 -1.1. Objective - Vital Signs Vital signs: Vital Signs Temp 98.3 F 09/17/22 08:00 Pulse 94 09/17/22 08:11 Resp 16 09/17/22 08:00 BP 94/60 09/17/22 08:00 Pulse Ox 90 L 09/17/22 08:00 FiO2 Intake & Output 09/16/22 09/17/22 09/17/22 18:59 06:59 18:59 Intake Total 1735 360 240 Output Total 1700 1450 Balance 35 -1090 240 Weight 79.379 kg Intake: Intake, IV Titration 1015 Amount Potassium Chloride 30 meq 1015 In Amino Acid 5%-D20w+ Lytes*E* 1,000 ml @ 30 mls/hr IV .BY DURATION [facility]PLACED [facility] Rx#:[id number] Oral 720 360 240 Output: Urine 1500 950 Stool 200 500 Other: Voiding Method Indwelling Catheter Indwelling Catheter Indwelling Catheter - Exam Awake, comfortable, no acute distress Examination of the heart S1 and S2 Examination lungs bilateral breath sounds are heard Abdomen is soft nontender Colostomy is intact with good output Examination lower extremity shows no evidence of edema - Labs CBC & Chem 7: 09/15/22 10:06 09/17/22 06:47 Labs: Abnormal Lab Results - Last 24 Hours (Table) 09/17/22 09/17/22 Range/Units 06:47 06:47 Carbon Dioxide 35 H (22-30) mmol/L BUN 54 H (7-17) mg/dL Creatinine 1.13 H (0.52-1.04) mg/dL Calcium 7.2 L (8.4-10.2) mg/dL Ionized Calcium Ines 4.2 L (4.5-5.3) mg/dL AST 42 H (14-36) U/L ALT 56 H (4-34) U/L Alkaline Phosphatase 165 H (38-126) U/L Total Protein 5.4 L (6.3-8.2) g/dL Albumin 2.9 L (3.5-5.0) g/dL Assessment and Plan Assessment: 1. Acute kidney injury secondary to ATN. Patient has received IV fluids. Now appears a little hypervolemic with anasarca changes and pleural effusions on CAT scan. Status post IV Lasix Creatinine 1.0 -1.1. No hydronephrosis noted on recent CAT scan. 2. Chronic kidney disease. Creatinine as of 08/23/2022 was 1.26. Etiology is nephrosclerosis. Establish baseline renal function. 3. Hypokalemia from poor intake. 4. Metabolic acidosis secondary to acute kidney injury. Resolved. 5. Fecal impaction with ileus. Surgery following. Underwent colectomy with end colostomy on 09/21/2022. 6. Severe hypothyroidism maintained on Synthroid. 7. Fluid overload. Improved with Lasix Plan: Monitor electrolytes Continue to encourage increased oral intake
[2022-09-17 11:49] LABS: Glucose,Whole Blood 137 mg/dL (70-110)
--- NOTE | 2022-09-17 12:39 | P.CONS ---
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 Limon is a pleasant 62-year-old female we've been asked to see because of pathology findings from recent colectomy. Presented with severe constipation, disempaction was unsuccessful so, pt was taken to surgery. She had open lap with rt/lt colectomy, ileocolonic anastomosis and ostomy creation, final path revealed that the abnormal cells were confined to mucosa, not invasive, no vascular invasion, neg margins, 0/7 LN. Patient denied any constitutional symptoms. No family history of malignancy, no personal history of malignancy. She has 3 siblings, no known health conditions, she has no children. Postop she is doing well, no acute complaints on a 10 point review of systems. Review of Systems 10 point review of systems is negative except as stated in HPI Past Medical History Past Medical History: Cancer (Low grade appendiceal mucinous neoplasm/Tis), COPD, Osteoarthritis (OA), Thyroid Disorder History of Any Multi-Drug Resistant Organisms: None Reported Past Surgical History: No Surgical Hx Reported Past Psychological History: No Psychological Hx Reported Smoking Status: Current every day smoker Past Alcohol Use History: None Reported Past Drug Use History: None Reported - Past Family History Mother History Unknown: Yes Medications and Allergies Home Medications Medication Instructions Recorded Confirmed Type Acetaminophen Tab [Tylenol] 325 mg PO Q6HR PRN tab 09/17/22 Rx Calcium Carb-Vit D 500Mg-5Mcg 1 each NG-TUBE TID@0800,1300,1800 09/17/22 Rx [Oscal 500+D 5 Mcg (200 Iu)] tab Famotidine [Pepcid] 20 mg PO BID 30 Days #60 tablet 09/17/22 Rx Folic Acid 1 mg PO DAILY #30 tablet 09/17/22 Rx HYDROcodone/APAP 5-325MG [[place] 1 each PO Q6HR PRN #6 tab 09/17/22 Rx 5-325] Heparin Sodium,Porcine [Heparin 5,000 unit SQ Q12HR #60 each 09/17/22 Rx Sodium] Ipratropium-Albuterol Nebulize 3 ml INHALATION RT-QID PRN each 09/17/22 Rx [Duoneb 0.5 mg-3 mg/3 ml Soln] Levothyroxine Sodium [Euthyrox] 75 mcg PO DAILY #30 tab 09/17/22 Rx Metoclopramide [Reglan] 5 mg PO AC-TID tab 09/17/22 Rx Multivitamins, Thera [Multivitamin 1 tab PO DAILY #30 tablet 09/17/22 Rx (formulary)] Nystatin [Nystatin Oral Susp] 5 unit PO QID #240 ml 09/17/22 Rx Pantoprazole Sodium [Protonix] 40 mg PO DAILY 30 Days #30 tab 09/17/22 Rx Pyridoxine [Vitamin B-6] 50 mg PO DAILY@0800 tab 09/17/22 Rx Simethicone 40 mg/0.6 ml Drops 80 mg PO QID ml 09/17/22 Rx [Mylicon Drops] Thiamine [Vitamin B-1] 100 mg PO DAILY #30 tablet 09/17/22 Rx predniSONE 10 mg PO DIRECTED #30 tab 09/17/22 Rx Allergies Allergy/AdvReac Type Severity Reaction Status Date / Time No Known Allergies Allergy Verified 09/01/22 09:50 Physical Exam Vitals: Vital Signs Temp Pulse Resp BP Pulse Ox 09/17/22 08:00 98.3 F 94 16 94/60 90 L 09/17/22 07:24 96 09/17/22 04:00 98.8 F 83 20 124/72 96 09/17/22 01:40 74 20 09/17/22 00:00 74 20 114/68 94 L 09/16/22 20:00 98.7 F 75 20 128/72 93 L 09/16/22 15:28 99.0 F 81 20 124/67 94 L 09/16/22 13:38 18 09/16/22 12:00 96.9 F L 82 18 126/84 92 L Intake and Output 09/16/22 09/17/22 09/17/22 22:59 06:59 14:59 Intake Total 1495 120 Output Total 650 800 Balance 845 -680 Intake: Intake, IV Titration 1015 Amount Potassium Chloride 30 meq 1015 In Amino Acid 5%-D20w+ Lytes*E* 1,000 ml @ 30 mls/hr IV .BY DURATION [facility] Rx#:[id number] Oral 480 120 Output: Urine 650 300 Stool 500 Other: Voiding Method Indwelling Catheter Indwelling Catheter - Constitutional General appearance: cooperative, no acute distress, thin - EENT Speech impairment Eyes: anicteric sclerae, EOMI ENT: hearing grossly normal - Neck Neck: no lymphadenopathy - Respiratory Respiratory: bilateral: CTA - Cardiovascular Rhythm: regular Heart sounds: normal: S1, S2 Abnormal Heart Sounds: no systolic murmur, no diastolic murmur, no rub, no S3 Gallop, no S4 Gallop, no click, no other - Neurologic Neurologic: focal deficits - Musculoskeletal Musculoskeletal: generalized weakness - Psychiatric Psychiatric: A&O x's 3, appropriate affect, intact judgment & insight Results CBC & Chem 7: 09/15/22 10:06 09/17/22 06:47 CT scan - abdomen: report reviewed CT Scan - head: report reviewed CT scan - pelvis: report reviewed Assessment and Plan (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 Limon is a pleasant 62-year-old lady admitted with severe constipation, unsuccessful disempaction leading to laparoscopic evaluation, right/left colectomy, ilealcolonic anastomosis with creation of a ostomy. Grade 1, confined to mucosa, no vascular invasion, negative margins, 0 of 7 lymph nodes involved. Neoplasm in situ. 7 lymph nodes sampled, slightly under the 12 recommended. Reviewed results with the patient. No neoadjuvant treatment is being recommended at this time. Pathology reporting 10+ polyps noted in the examination of the mucosa of the colon. Discussed with the patient the possibility of A polypoid syndrome/familial adenomatous polyposis (FAP) syndrome. Patient does not have children but, she does have siblings. Explained to her that if genetic testing did show FAP implications would include more frequent monitoring with endoscopy, close monitoring for GI signs and symptoms, possible surgical options. Plan will be for follow-up with Dr. Scott Chavarria follow-up in about 6 weeks. Patient will have the genetic testing blood draw done about 2 weeks prior to the visit so that the results are available. Patient verbalized understanding the plan. Dr. scottests: I have seen and examined patient, performed H&P, developed impression and plan of care. Discussed with dictator. Agree with documentation, dictated as a scribe. Time with Patient: Greater than 30
--- NOTE | 2022-09-17 13:47 | P.PN ---
Subjective Progress Note Date: 09/17/22 CHIEF COMPLAINT: Fecal impaction HISTORY OF PRESENT ILLNESS: Patient is postop day #6 status post right c olectomy, left colectomy with end colostomy for severe ileus of the right and left colon with megacolon related to pseudoobstruction. Patient denies any abdominal pain. Her ostomy is functioning. Denies any nausea or vomiting. She is tolerating regular diet. TPN has been weaned off. Patient seen by oncology service regarding the low-grade appendiceal mucinous neoplasm noted on pathology. Patient scheduled for discharge to [facility] today. Afebrile Patient seen and examined with Dr. coto PHYSICAL EXAM: VITAL SIGNS: Reviewed. GENERAL: Well-developed in no acute distress. HEENT: No sclera icterus. Extraocular movements grossly intact. Moist buccal mucosa. Head is atraumatic, normocephalic. ABDOMEN: Soft nondistended Nontender ostomy with stool present NEUROLOGIC: Alert and oriented. Cranial nerves II through XII grossly intact. ASSESSMENT: 1. Severe ileus with megacolon related to pseudoobstruction status post right colectomy, left colectomy with end colostomy 2. Fecal impaction 3. Cervical myelopathy and severe cervical stenosis with disc herniation PLAN: -Patient can be discharged from surgical standpoint -Continue regular diet -Follow up with oncology outpatient Physician Geological Engineering Teacher note has been reviewed by physician. Signing provider agrees with the documented findings, assessment, and plan of care. Objective - Vital Signs Vital signs: Vital Signs Temp 98.3 F 09/17/22 08:00 Pulse 86 09/17/22 13:20 Resp 16 09/17/22 11:35 BP 113/69 09/17/22 11:35 Pulse Ox 91 L 09/17/22 11:35 FiO2 Intake & Output 09/16/22 09/17/22 09/17/22 18:59 06:59 18:59 Intake Total 1735 360 240 Output Total 1700 1450 450 Balance 35 -1090 -210 Weight 79.379 kg 79.379 kg Intake: Intake, IV Titration 1015 Amount Potassium Chloride 30 meq 1015 In Amino Acid 5%-D20w+ Lytes*E* 1,000 ml @ 30 mls/hr IV .BY DURATION [facility] Rx#:[id number] Oral 720 360 240 Output: Urine 1500 950 450 Stool 200 500 Other: Voiding Method Indwelling Catheter Indwelling Catheter Indwelling Catheter - Labs CBC & Chem 7: 09/15/22 10:06 09/17/22 06:47 Labs: Abnormal Lab Results - Last 24 Hours (Table) 09/17/22 09/17/22 09/17/22 Range/Units 06:47 06:47 11:48 Carbon Dioxide 35 H (22-30) mmol/L BUN 54 H (7-17) mg/dL Creatinine 1.13 H (0.52-1.04) mg/dL POC Glucose (mg/dL) 137 H (70-110) mg/dL Calcium 7.2 L (8.4-10.2) mg/dL Ionized Calcium Ines 4.2 L (4.5-5.3) mg/dL AST 42 H (14-36) U/L ALT 56 H (4-34) U/L Alkaline Phosphatase 165 H (38-126) U/L Total Protein 5.4 L (6.3-8.2) g/dL Albumin 2.9 L (3.5-5.0) g/dL
--- NOTE | 2022-09-17 14:28 | P.DS ---
Providers Date of admission: 09/01/22 12:17 Expected date of discharge: 09/17/22 Attending physician: Chema Rodrigues MD Consults: 09/01/22 13:26 Consult Physician Routine Consulting Provider: Evelyn Wells Consult Reason/Comments: can not walk Do you want consulting provider notified?: Yes 09/01/22 18:07 Consult Physician Routine Consulting Provider: Jj Worthington Consult Reason/Comments: bowel obstruction and fecal impaction Do you want consulting provider notified?: Yes, Notify in am 09/03/22 11:11 Consult Physician Urgent Consulting Provider: Arlene Hurd Consult Reason/Comments: spinal stenosis Do you want consulting provider notified?: Yes 09/09/22 09:25 Consult Physician Urgent Consulting Provider: Messi Cottrell Consult Reason/Comments: mark Do you want consulting provider notified?: Yes 09/16/22 15:36 Consult Physician Routine Consulting Provider: Scott Chavarria 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 Do you want consulting provider notified?: Yes Primary care physician: Stated None Hospital Course: Final diagnosis Hypothyroidism with TSH more than 100 and low T4 on admission, improving , will need repeat labs in outpatient follow-up Small bowel obstruction both large and small bowel secondary to fecal impaction, status post right colectomy, left colectomy with end colostomy for severe ileus of the right and left colon, pathology report is positive for neoplasm Severe C3-C4 spinal stenosis with myelomalacia, requiring surgical intervention although will need to be reevaluated at a later date once stabilized from current illness Hypocalcemia and low vitamin D, improved Acute kidney injury with worsening creatinine Chronic kidney disease stage III Possible acute urinary tract infection Versus asymptomatic bacteriuria . Finished treatment with antibiotic which is stopped. Generalized weakness secondary to above bilateral hands and feet numbness, chronic 1 month Noncompliance with medication and follow-up COPD, not an active issue Nicotine dependence GI prophylaxis DVT prophylaxis Full code Discharge disposition Patient is being discharged in a stable condition with guarded prognosis to [facility] for continued PT/OT therapy. Patient will follow-up with Dr. Cordon in the outpatient setting upon discharge. Patient is to follow-up with surgery, nephrology, orthopedics, and neurology outpatient as scheduled. Patient is agreeable and understands she will not receive oncological treatment including chemo or radiation during inpatient rehab at [facility] and will follow-up with oncology outpatient once discharged from [facility]. Total time taken is greater than 35 minutes. Hospital course This is a 62-year-old female who was recently admitted with abdominal pain found to have a small bowel obstruction both large and small bowel secondary to fecal impaction and was being closely monitored. Patient underwent partial colectomy for colonic pseudoobstruction with end ostomy. Patient has been weaned off TPN and tolerating oral diet recommend anti-nausea medications as needed and small frequent meals. Patient also being followed by nephrology along with orthopedics as patient does have severe C3for spinal stenosis with myelomalacia and discussions of surgical intervention being done. Patient pathology report is suggestive of neoplasm and oncology evaluated the patient and is under the understanding patient will not receive treatment by oncology services while inpatient at rehab and she will follow-up in the outpatient setting on discharge from [facility]. Patient is significantly weak and has been working with physical therapy and agreeable to rehab. Patient also found to have an elevated TSH of over 100 with a low T4 and started on levothyroxine and patient will need follow-up repeat labs in the next 4 weeks to monitor TSH, T3 free, T4 free. Currently no reports of chest pain, shortness of breath, or palpitations. Patient is afebrile. No reports of nausea or vomiting and patient is tolerating diet. Patient will be going to [facility] today. Guarded prognosis and patient is high risk for readmission. Physical exam: Gen: This is a 62-year-old female awake, alert and oriented, thin built, elderly appearing HEENT: Head is atraumatic, normocephalic. Pupils equal, round. Sclerae is anicteric. NECK: Supple. No JVD. No lymphadenopathy. No thyromegaly. LUNGS: Diminished breath sounds bilaterally with some scattered rhonchi noted. No intercostal retractions. HEART: S1, S2 are muffled ABDOMEN: Soft. Bowel sounds are present. Ostomy is functioning. No masses. No tenderness. EXTREMITIES: No pedal edema. No calf tenderness. NEUROLOGICAL: Patient is awake, alert and oriented x3. Cranial nerves 2 through 12 are grossly intact. Generalized weakness Please refer to medication reconciliation sheet for a list of medications. The impression and plan of care has been dictated by Lida Singh, Nurse Practitioner as directed. Dr. Greyson MD I have performed a history and examination and MDM of this patient, discussed the same with the dictator, and agree with the dictator's assessment and plan as written ,documented as a scribe. Based on total visit time, I have performed more than 50% of the visit. Patient Condition at Discharge: Fair Plan - Discharge Summary Discharge Rx Participant: Yes New Discharge Prescriptions: New Ipratropium-Albuterol Nebulize [Duoneb 0.5 mg-3 mg/3 ml Soln] 3 ml INHALATION RT-QID PRN each PRN Reason: Shortness Of Breath Or Wheezing Levothyroxine Sodium [Euthyrox] 75 mcg PO DAILY #30 tab Heparin Sodium,Porcine [Heparin Sodium] 5,000 unit SQ Q12HR #60 each Multivitamins, Thera [Multivitamin (formulary)] 1 tab PO DAILY #30 tablet Simethicone 40 mg/0.6 ml Drops [Mylicon Drops] 80 mg PO QID ml Famotidine [Pepcid] 20 mg PO BID 30 Days #60 tablet Pantoprazole Sodium [Protonix] 40 mg PO DAILY 30 Days #30 tab Thiamine [Vitamin B-1] 100 mg PO DAILY #30 tablet Folic Acid 1 mg PO DAILY #30 tablet HYDROcodone/APAP 5-325MG [Alvord 5-325] 1 each PO Q6HR PRN #6 tab PRN Reason: Pain (4-6) Nystatin [Nystatin Oral Susp] 5 unit PO QID #240 ml Calcium Carb-Vit D 500Mg-5Mcg [Oscal 500+D 5 Mcg (200 Iu)] 1 each NG-TUBE TID@0800,1300,1800 tab predniSONE 10 mg PO DIRECTED #30 tab Acetaminophen Tab [Tylenol] 325 mg PO Q6HR PRN tab PRN Reason: Fever and/ or Pain (1-3) Pyridoxine [Vitamin B-6] 50 mg PO DAILY@0800 tab Metoclopramide [Reglan] 5 mg PO AC-TID tab Discharge Medication List Acetaminophen Tab [Tylenol] 325 mg PO Q6HR PRN tab 09/17/22 [Rx] Calcium Carb-Vit D 500Mg-5Mcg [Oscal 500+D 5 Mcg (200 Iu)] 1 each NG-TUBE T ID@0800,1300,1800 tab 09/17/22 [Rx] Famotidine [Pepcid] 20 mg PO BID 30 Days #60 tablet 09/17/22 [Rx] Folic Acid 1 mg PO DAILY #30 tablet 09/17/22 [Rx] HYDROcodone/APAP 5-325MG [Alvord 5-325] 1 each PO Q6HR PRN #6 tab 09/17/22 [Rx] Heparin Sodium,Porcine [Heparin Sodium] 5,000 unit SQ Q12HR #60 each 09/17/22 [Rx] Ipratropium-Albuterol Nebulize [Duoneb 0.5 mg-3 mg/3 ml Soln] 3 ml INHALATION RT-QID PRN each 09/17/22 [Rx] Levothyroxine Sodium [Euthyrox] 75 mcg PO DAILY #30 tab 09/17/22 [Rx] Metoclopramide [Reglan] 5 mg PO AC-TID tab 09/17/22 [Rx] Multivitamins, Thera [Multivitamin (formulary)] 1 tab PO DAILY #30 tablet 09/17/22 [Rx] Nystatin [Nystatin Oral Susp] 5 unit PO QID #240 ml 09/17/22 [Rx] Pantoprazole Sodium [Protonix] 40 mg PO DAILY 30 Days #30 tab 09/17/22 [Rx] Pyridoxine [Vitamin B-6] 50 mg PO DAILY@0800 tab 09/17/22 [Rx] Simethicone 40 mg/0.6 ml Drops [Mylicon Drops] 80 mg PO QID ml 09/17/22 [Rx] Thiamine [Vitamin B-1] 100 mg PO DAILY #30 tablet 09/17/22 [Rx] predniSONE 10 mg PO DIRECTED #30 tab 09/17/22 [Rx] Follow up Appointment(s)/Referral(s): Scott Chavarria MD [STAFF PHYSICIAN] - 6 Weeks (Lab draw 2 weeks prior to appointment with Tramaine Patient will be contacted with these appointments.) Douglas Gerber PAC [PHYSICIAN TRUCKING MANAGER] - 3 Weeks (Patient may follow-up in 2-3 weeks for further evaluation in regards to her cervical spine.) None,Stated [Primary Care Provider] - 1-2 days Ambulatory/Diagnostic Orders: Complete Blood Count w/diff [LAB.AMB] Time Frame: 3 Days, Location: None Selected Patient Instructions/Handouts: Colostomy Care (GEN) Activity/Diet/Wound Care/Special Instructions: The patient is going to [facility] Activity as tolerated Follow-up with surgery outpatient Patient is agreeable to follow-up with oncology to discuss possible treatment options once discharged from [facility] Recommend continue with incentive spirometer at least 10 times every hour while awake Recommend continue with regular diet Recommend repeat labs in the next 2-3 days of CBC, BMP, magnesium Continue with ensure supplements 3 times a day with meals Patient will need outpatient follow-up for repeat TSH levels as patient's thyroid was high and admission Patient follow-up with orthopedics outpatient when stable Colostomy Care Recommendations for Transition of Care to Rehab after Discharge: Last pouching system change: 09.14.2022 Colos[employer] Care Durable Medical equipment Mrs. Limon will have the following osotmy care supplies provided by the hospital for home on discharge: Convatec one piece cut to fit ostomy pouching system with a filtered bag #[id number] (3) Ostomy powder (1) No sting prep pads (3M)(10) Mrs Limon is to empty the pouchign system while sittign on the toilet when the pouch is 1/2 to 1/3 full Mrs Limon is to change the entire pouching system evvery 3-5 days unless otherwise directed by the surgeon or Home Health RN home Health please arrange for disposable pouches in 3-4 weeks from discharge if appropriate Discharge Disposition: TRANSFER TO SNF/ECF
[2022-09-17 14:33] LABS: % Iron Saturation 12.36 (12.00-45.00)
[2022-09-17 15:14] VITALS: BP 106/67; PULSE 85; TEMP 97.6
[2022-09-17] MEDS ORDERED: METOCLOPRAMIDE 5 MG TAB PO SCH (17:30)
[2022-09-17 18:44] LABS: Glucose,Whole Blood 156 mg/dL (70-110)
== END 2022-09-17 20:00 | DRG 329 ==
LOC: EC 07:47 → 3SCARD 12:17
PROVIDERS: ADMIT Internal Medicine; ATTEND Internal Medicine
PROC: 0DJDXZZ Inspection of Lower Intestinal Tract, External Approach (ICD-10-PCS; 2022-09-03)
PROC: 3E1H78Z Irrigation of Lower GI using Irrigating Substance, Via Natural or Artificial Opening (ICD-10-PCS; 2022-09-03)
PROC: 0D9670Z Drainage of Stomach with Drainage Device, Via Natural or Artificial Opening (ICD-10-PCS; 2022-09-07)
PROC: 02HV33Z Insertion of Infusion Device into Superior Vena Cava, Percutaneous Approach (ICD-10-PCS; 2022-09-09)
PROC: 3E0436Z Introduction of Nutritional Substance into Central Vein, Percutaneous Approach (ICD-10-PCS; 2022-09-09)
PROC: 0DTJ0ZZ Resection of Appendix, Open Approach (ICD-10-PCS; 2022-09-11)
PROC: 0DCP7ZZ Extirpation of Matter from Rectum, Via Natural or Artificial Opening (ICD-10-PCS; 2022-09-11)
PROC: 0D1M0Z4 Bypass Descending Colon to Cutaneous, Open Approach (ICD-10-PCS; principal; 2022-09-11 11:15)
PROC: 0DTG0ZZ Resection of Left Large Intestine, Open Approach (ICD-10-PCS; 2022-09-11 11:15)
PROC: 0DTF0ZZ Resection of Right Large Intestine, Open Approach (ICD-10-PCS; 2022-09-11 11:15)
DX: K56.41 Fecal impaction (principal); N17.0 Acute kidney failure with tubular necrosis; G95.89 Other specified diseases of spinal cord; K59.39 Other megacolon; M47.12 Other spondylosis with myelopathy, cervical region; E87.20 Acidosis, unspecified; R18.8 Other ascites; J90 Pleural effusion, not elsewhere classified; K56.7 Ileus, unspecified; N13.6 Pyonephrosis; C18.1 Malignant neoplasm of appendix; J98.11 Atelectasis; I27.20 Pulmonary hypertension, unspecified; E03.9 Hypothyroidism, unspecified; I07.1 Rheumatic tricuspid insufficiency; J44.9 Chronic obstructive pulmonary disease, unspecified; N18.30 Chronic kidney disease, stage 3 unspecified; I12.9 Hypertensive chronic kidney disease with stage 1 through stage 4 chronic kidney disease, or unspecified chronic kidney disease; I73.9 Peripheral vascular disease, unspecified; M50.223 Other cervical disc displacement at C6-C7 level; M50.221 Other cervical disc displacement at C4-C5 level; R29.2 Abnormal reflex; I34.81 Nonrheumatic mitral (valve) annulus calcification; M48.02 Spinal stenosis, cervical region; E55.9 Vitamin D deficiency, unspecified; F17.210 Nicotine dependence, cigarettes, uncomplicated; T38.1X6A Underdosing of thyroid hormones and substitutes, initial encounter; K21.9 Gastro-esophageal reflux disease without esophagitis; R27.0 Ataxia, unspecified; K80.20 Calculus of gallbladder without cholecystitis without obstruction; M47.22 Other spondylosis with radiculopathy, cervical region; M50.31 Other cervical disc degeneration, high cervical region; M50.321 Other cervical disc degeneration at C4-C5 level; E87.70 Fluid overload, unspecified; Z53.8 Procedure and treatment not carried out for other reasons; E53.1 Pyridoxine deficiency; R76.8 Other specified abnormal immunological findings in serum; E86.1 Hypovolemia; G89.29 Other chronic pain; T38.1X5A Adverse effect of thyroid hormones and substitutes, initial encounter; R00.1 Bradycardia, unspecified; K29.70 Gastritis, unspecified, without bleeding; K59.81 Ogilvie syndrome; R06.03 Acute respiratory distress; E87.6 Hypokalemia; Z91.128 Patient's intentional underdosing of medication regimen for other reason; Z79.890 Hormone replacement therapy; Z91.199 Patient's noncompliance with other medical treatment and regimen due to unspecified reason; Z28.310 Unvaccinated for COVID-19; Z79.899 Other long term (current) drug therapy; Z79.01 Long term (current) use of anticoagulants
CPT/HCPCS: 36415; 36573; 45330; 51798; 70450; 71045; 71046; 72156; 74018; 74176; 80048; 80053; 80076; 81001; 82040; 82272; 82306; 82330; 82533; 82607; 82728; 82746; 82784; 83036; 83540; 83550; 83605; 83735; 83921; 84100; 84145; 84207; 84425; 84436; 84439; 84443; 84478; 84484; 85025; 85027; 85610; 85652; 85730; 86140; 86235; 86334; 87086; 88309; 88341; 88342; 93005; 93306; 94760; 96361; 96365; 96375; 99291

== ENCOUNTER 2022-09-24 15:40 | Emergency (ER) | payer OTHER ==
--- NOTE | 2022-09-24 16:20 | ED ---
General Adult HPI - General Stated complaint: Post-op problem Time Seen by Provider: 09/24/22 16:02 Source: EMS, RN notes reviewed - History of Present Illness Initial comments: 62-year-old female with history COPD emergency department for postop problem. Patient is a patient at [facility], and was sent into the ED because her colectomy bag is not collecting gas or stool. She is unsure of how long it has not been working properly or why it was placed. Pt is a poor historian. Patient denies fever, chills, chest pain, shortness of breath, abdominal pain, nausea, vomiting, diarrhea. Colectomy was performed on 09/11/[address] Worthington. - Related Data Previous Rx's Medication Instructions Recorded Acetaminophen Tab [Tylenol] 325 mg PO Q6HR PRN tab 09/17/22 Calcium Carb-Vit D 500Mg-5Mcg 1 each NG-TUBE TID@0800,1300,1800 09/17/22 [Oscal 500+D 5 Mcg (200 Iu)] tab Famotidine [Pepcid] 20 mg PO BID 30 Days #60 tablet 09/17/22 Folic Acid 1 mg PO DAILY #30 tablet 09/17/22 HYDROcodone/APAP 5-325MG [Export 1 each PO Q6HR PRN #6 tab 09/17/22 5-325] Heparin Sodium,Porcine [Heparin 5,000 unit SQ Q12HR #60 each 09/17/22 Sodium] Ipratropium-Albuterol Nebulize 3 ml INHALATION RT-QID PRN each 09/17/22 [Duoneb 0.5 mg-3 mg/3 ml Soln] Levothyroxine Sodium [Euthyrox] 75 mcg PO DAILY #30 tab 09/17/22 Metoclopramide [Reglan] 5 mg PO AC-TID tab 09/17/22 Multivitamins, Thera [Multivitamin 1 tab PO DAILY #30 tablet 09/17/22 (formulary)] Nystatin [Nystatin Oral Susp] 5 unit PO QID #240 ml 09/17/22 Pantoprazole Sodium [Protonix] 40 mg PO DAILY 30 Days #30 tab 09/17/22 Pyridoxine [Vitamin B-6] 50 mg PO DAILY@0800 tab 09/17/22 Simethicone 40 mg/0.6 ml Drops 80 mg PO QID ml 09/17/22 [Mylicon Drops] Thiamine [Vitamin B-1] 100 mg PO DAILY #30 tablet 09/17/22 predniSONE 10 mg PO DIRECTED #30 tab 09/17/22 Allergies Allergy/AdvReac Type Severity Reaction Status Date / Time No Known Allergies Allergy Verified 09/24/22 16:39 Review of Systems ROS Statement: Those systems with pertinent positive or pertinent negative responses have been documented in the HPI. ROS Other: All systems not noted in ROS Statement are negative. Past Medical History Past Medical History: Cancer (Low grade appendiceal mucinous neoplasm/Tis), COPD, Osteoarthritis (OA), Thyroid Disorder History of Any Multi-Drug Resistant Organisms: None Reported Past Surgical History: No Surgical Hx Reported Past Psychological History: No Psychological Hx Reported Smoking Status: Current every day smoker Past Alcohol Use History: None Reported Past Drug Use History: None Reported - Past Family History Mother History Unknown: Yes General Exam General appearance: alert, in no apparent distress Head exam: Present: atraumatic, normocephalic, normal inspection Eye exam: Present: normal appearance, PERRL, EOMI. Absent: scleral icterus, conjunctival injection, periorbital swelling ENT exam: Present: normal exam, mucous membranes moist Neck exam: Present: normal inspection. Absent: tenderness, meningismus, lymphadenopathy Respiratory exam: Present: normal lung sounds bilaterally. Absent: respiratory distress, wheezes, rales, rhonchi, stridor Cardiovascular Exam: Present: regular rate, normal rhythm, normal heart sounds. Absent: systolic murmur, diastolic murmur, rubs, gallop, clicks GI/Abdominal exam: Present: soft, distended, normal bowel sounds, other (Colectomy bag without gas or stool contents. Site looks well healed, without evidence of infection). Absent: tenderness, guarding, rebound, rigid Extremities exam: Present: normal inspection, full ROM, normal capillary refill. Absent: tenderness, pedal edema, joint swelling, calf tenderness Back exam: Present: normal inspection Neurological exam: Present: alert, oriented X3, CN II-XII intact Psychiatric exam: Present: normal affect, normal mood Skin exam: Present: warm, dry, intact, normal color. Absent: rash Course Vital Signs 09/24/22 09/24/22 16:35 17:47 Temperature 97.7 F Pulse Rate 64 62 Respiratory 18 18 Rate Blood Pressure 106/61 121/75 O2 Sat by Pulse 98 98 Oximetry - Reevaluation(s) Reevaluation #1: 09/24/22 19:[address] Worthington who says the patient is agreeable with plan for discharge home. 09/24/22 19:25 Medical Decision Making - Medical Decision Making 62-year-old female 2 weeks status post colostomy placement presents to the emergency department for postop problem. Patient had a workup performed department is essentially unremarkable. Physical exam reveals surgical site which appears well-healed, there is mild erythema without fluctuance or active drainage or bleeding. I interpreted the following; CT abdomen any evidence of obstruction, there is colonic palpitations that correlates with surgical history. Case discussed with Dr. Ellis who performed surgery who agrees with plan for discharge. I discussed the results with the patient patient is agreeable for return back to [facility]. I discussed the case with Dr. Alatorre who agrees with plan for discharge. - Lab Data Result diagrams: 09/24/22 17:15 09/24/22 17:15 Lab Results 09/24/22 09/24/22 Range/Units 17:15 17:15 WBC 9.7 (3.8-10.6) k/uL RBC 2.97 L (3.80-5.40) m/uL Hgb 9.6 L (11.4-16.0) gm/dL Hct 30.0 L (34.0-46.0) % MCV 101.0 H (80.0-100.0) fL MCH 32.3 (25.0-35.0) pg MCHC 32.0 (31.0-37.0) g/dL RDW 14.0 (11.5-15.5) % Plt Count 208 D (150-450) k/uL MPV 10.2 Neutrophils % 92 % Lymphocytes % 4 % Monocytes % 3 % Eosinophils % 0 % Basophils % 0 % Neutrophils # 8.9 H (1.3-7.7) k/uL Lymphocytes # 0.4 L (1.0-4.8) k/uL Monocytes # 0.3 (0-1.0) k/uL Eosinophils # 0.0 (0-0.7) k/uL Basophils # 0.0 (0-0.2) k/uL Macrocytosis Slight Sodium 135 L (137-145) mmol/L Potassium 4.5 (3.5-5.1) mmol/L Chloride 103 (98-107) mmol/L Carbon Dioxide 25 (22-30) mmol/L Anion Gap 7 mmol/L BUN 31 H (7-17) mg/dL Creatinine 1.25 H (0.52-1.04) mg/dL Est GFR (CKD-EPI)AfAm 53 (>60 ml/min/1.73 sqM) Est GFR (CKD-EPI)NonAf 46 (>60 ml/min/1.73 sqM) Glucose 121 H (74-99) mg/dL Calcium 6.1 L* (8.4-10.2) mg/dL Disposition Clinical Impression: Encounter for wound re-check Disposition: DC/TRNS INTERMEDIATE CARE FAC Condition: Stable Additional Instructions: Please return to the emergency department if symptoms worsen or persist. Is patient prescribed a controlled substance at d/c from ED?: No Referrals: None,Stated [Primary Care Provider] - 1-2 days Time of Disposition: 19:36 - Out of Hospital Transfer - Req. Specs Out of Hospital Transfer - Requested Specifics: Other Non-Acute ([facility])
[2022-09-24 16:39] VITALS: RESP 18; TEMP 97.7
[2022-09-24 17:32] LABS: Potassium 4.5 mmol/L (3.5-5.1)
[2022-09-24 17:35] LABS: Calcium 6.1 mg/dL (8.4-10.2)
[2022-09-24 17:38] LABS: Basophils % (A) 0 %; Eosinophils % (A) 0 %; HGB 9.6 gm/dL (11.4-16.0); Lymphocytes # (A) 0.4 k/uL (1.0-4.8); Lymphocytes % (A) 4 %; MCH 32.3 pg (25.0-35.0); Macrocytosis Slight; Mean Platelet Volume 10.2; Monocytes # (A) 0.3 k/uL (0-1.0); Monocytes % (A) 3 %; Neutrophils # (A) 8.9 k/uL (1.3-7.7); Neutrophils % (A) 92 %; RBC 2.97 m/uL (3.80-5.40); WBC 9.7 k/uL (3.8-10.6)
[2022-09-24 17:40] LABS: Platelet Count 208 k/uL (150-450)
[2022-09-24 17:48] VITALS: BP 121/75; PULSE 62
--- NOTE | 2022-09-24 19:04 | CT ---
EXAMINATION TYPE: CT abdomen pelvis wo con DATE OF EXAM: 09/24/2022 COMPARISON: 09/08/2022 INDICATION: poss infection, recent abdominal sx. DLP: 509.2 mGycm, Automated exposure control for dose reduction was used. CONTRAST: 0 mL of Isovue 300. Study performed without Oral Contrast TECHNIQUE: Axial images were obtained from above the diaphragm to the pubic rami in the axial plane a t 5 mm thick sections. Reconstructed images are reviewed on the computer in the coronal plane. FINDINGS: Limited CT sections are obtained the lung bases. There is a minimal left pleural effusion. Coronary artery calcification is present. Some compressive atelectasis is present. A 1.1 cm nodules in the pos terior right lung base. Punctate 0.7 cm round calcification may be at the diaphragm and knee superio r right lobe liver, series [address] ABDOMEN: Liver: Normal Spleen: Normal Pancreas: Normal Adrenal glands: The adrenal glands are normal. Gallbladder: Gallstone may be present. The gallbladder is not well-visualized. Differential could inc lude a biliary stone which is felt to be less likely Kidneys: No masses are evident. No hydronephrosis is present. No cysts are present. No renal stone s are evident. Aorta: Vascular calcification is within the aorta. Inferior vena cava: Normal. CT PELVIS: All surgery is evident within the right ascending colon. No obstruction is evident. There are dilated bowel. There is marked distention of the sigmoid colon measuring 9.7 cm to the level of the rectum. Correlate for fecal impaction. Correlate with surgical history. An air fluid levels present. Ostomy is in the left lower quadrant. Study is performed without oral contrast. Appendix: Not identified Urinary bladder: Normal. Genitourinary structures: Uterus and ovaries are not identified. Osseous structures: No suspicious lytic or sclerotic lesions. Degenerative changes at the left femora l head. Facet degenerative changes are within the lower lumbar spine. IMPRESSIONS: 1. Marked dilatation of the sigmoid colon. Correlate with the surgical history. 2. Prominent colon containing fecal debris and air. No definite obstruction evident. Colonic dilatati on is diminished over the interval. 3. Ostomy in the left lower quadrant.
== END 2022-09-24 21:12 ==
LOC: EC 15:40
DX: Z48.00 Encounter for change or removal of nonsurgical wound dressing (principal); J44.9 Chronic obstructive pulmonary disease, unspecified; M19.90 Unspecified osteoarthritis, unspecified site; E07.9 Disorder of thyroid, unspecified; F17.200 Nicotine dependence, unspecified, uncomplicated; Z79.890 Hormone replacement therapy; Z79.899 Other long term (current) drug therapy
CPT/HCPCS: 36415; 74176; 80048; 85025; 99285

== ENCOUNTER 2022-10-03 15:01 | Emergency (ER) | payer OTHER ==
[2022-10-03 15:14] VITALS: RESP 18; TEMP 98.7
--- NOTE | 2022-10-03 15:38 | ED ---
General Adult HPI - General Chief complaint: Recheck/Abnormal Lab/Rx Stated complaint: ostomy infection Time Seen by Provider: 10/03/22 15:15 Source: EMS, RN notes reviewed Mode of arrival: ambulatory Limitations: altered mental status - History of Present Illness Initial comments: Patient is a pleasant 62-year-old female presenting to the emergency department some concern for reported postop infection. Patient is a poor historian and refuses to provide any information. Patient denies pain. Patient denies fever. No reported vomiting nor constipation. - Related Data Previous Rx's Medication Instructions Recorded Acetaminophen Tab [Tylenol] 325 mg PO Q6HR PRN tab 09/17/22 Calcium Carb-Vit D 500Mg-5Mcg 1 each NG-TUBE TID@0800,1300,1800 09/17/22 [Oscal 500+D 5 Mcg (200 Iu)] tab Famotidine [Pepcid] 20 mg PO BID 30 Days #60 tablet 09/17/22 Folic Acid 1 mg PO DAILY #30 tablet 09/17/22 HYDROcodone/APAP 5-325MG [Bryan 1 each PO Q6HR PRN #6 tab 09/17/22 5-325] Heparin Sodium,Porcine [Heparin 5,000 unit SQ Q12HR #60 each 09/17/22 Sodium] Ipratropium-Albuterol Nebulize 3 ml INHALATION RT-QID PRN each 09/17/22 [Duoneb 0.5 mg-3 mg/3 ml Soln] Levothyroxine Sodium [Euthyrox] 75 mcg PO DAILY #30 tab 09/17/22 Metoclopramide [Reglan] 5 mg PO AC-TID tab 09/17/22 Multivitamins, Thera [Multivitamin 1 tab PO DAILY #30 tablet 09/17/22 (formulary)] Nystatin [Nystatin Oral Susp] 5 unit PO QID #240 ml 09/17/22 Pantoprazole Sodium [Protonix] 40 mg PO DAILY 30 Days #30 tab 09/17/22 Pyridoxine [Vitamin B-6] 50 mg PO DAILY@0800 tab 09/17/22 Simethicone 40 mg/0.6 ml Drops 80 mg PO QID ml 09/17/22 [Mylicon Drops] Thiamine [Vitamin B-1] 100 mg PO DAILY #30 tablet 12/15/22 predniSONE 10 mg PO DIRECTED #30 tab 09/17/22 Cephalexin [Keflex] 500 mg PO QID #36 cap 10/03/22 Allergies Allergy/AdvReac Type Severity Reaction Status Date / Time No Known Allergies Allergy Verified 10/03/22 15:14 Review of Systems ROS Statement: Those systems with pertinent positive or pertinent negative responses have been documented in the HPI. ROS Other: All systems not noted in ROS Statement are negative. Limitations: ROS unobtainable due to patients medical condition Past Medical History Past Medical History: Cancer, COPD, Osteoarthritis (OA), Thyroid Disorder History of Any Multi-Drug Resistant Organisms: None Reported Past Surgical History: No Surgical Hx Reported Past Psychological History: No Psychological Hx Reported Smoking Status: Current every day smoker Past Alcohol Use History: None Reported Past Drug Use History: None Reported - Past Family History Mother History Unknown: Yes General Exam Limitations: no limitations General appearance: alert, in no apparent distress Head exam: Present: normocephalic Eye exam: Present: normal appearance Neck exam: Present: normal inspection Respiratory exam: Present: normal lung sounds bilaterally Cardiovascular Exam: Present: regular rate, normal rhythm GI/Abdominal exam: Present: soft, other (STEMI is clean and dry and intact. Midline incision with central mild dehiscence, approximately 1 x 1 cm with mild purulent drainage.). Absent: distended, tenderness Extremities exam: Present: normal inspection Neurological exam: Present: alert Psychiatric exam: Present: flat affect Skin exam: Present: erythema (Minimal incision with some purulent drainage.) Course Vital Signs 10/03/22 15:08 Temperature 98.7 F Pulse Rate 75 Respiratory 18 Rate Blood Pressure 105/70 O2 Sat by Pulse 99 Oximetry Medical Decision Making - Medical Decision Making Patient has concern for minimal early wound dehiscence/infection. Case discussed with Dr. Parikh, covering Dr. Hernandez who agrees with plan. Disposition Clinical Impression: Dehiscence of incision Disposition: HOME SELF-CARE Condition: Stable Instructions (If sedation given, give patient instructions): Wound Infection (ED) Additional Instructions: Prescription sent to pharmacy. Please do follow-up with primary care physician in the next couple of days for recheck. Please do follow-up with Dr. Worthington in the next couple days for recheck. Return for pain, redness, fevers, worsening symptoms or other concerns. Prescriptions: Cephalexin [Keflex] 500 mg PO QID #36 cap Is patient prescribed a controlled substance at d/c from ED?: No Referrals: Josue Engle DO [Primary Care Provider] - 1-2 days Time of Disposition: 15:52
[2022-10-03] MEDS ORDERED: CEPHALEXIN 500MG STARTER PACK 4 CAP BTL PO STA (15:52)
[2022-10-03 17:25] VITALS: BP 95/68; PULSE 85
== END 2022-10-03 18:50 | disposition home or self-care (01) ==
LOC: EC 15:01
DX: T81.31XA Disruption of external operation (surgical) wound, not elsewhere classified, initial encounter (principal); J44.9 Chronic obstructive pulmonary disease, unspecified; M19.90 Unspecified osteoarthritis, unspecified site; E07.9 Disorder of thyroid, unspecified; F17.200 Nicotine dependence, unspecified, uncomplicated; Z79.890 Hormone replacement therapy; Z79.899 Other long term (current) drug therapy
CPT/HCPCS: 87070; 87077; 87186; 87205; 99284

== ENCOUNTER 2022-10-04 13:16 | Inpatient (IN) | payer OTHER ==
[2022-10-04 14:43] LABS: Basophils % (A) 0 %; Eosinophils # (A) 0.1 k/uL (0-0.7); Eosinophils % (A) 1 %; HCT 24.9 % (34.0-46.0); HGB 8.4 gm/dL (11.4-16.0); Lymphocytes # (A) 0.8 k/uL (1.0-4.8); Lymphocytes % (A) 15 %; MCH 33.2 pg (25.0-35.0); MCHC 33.7 g/dL (31.0-37.0); MCV 98.6 fL (80.0-100.0); Mean Platelet Volume 9.1; Monocytes # (A) 0.2 k/uL (0-1.0); Monocytes % (A) 4 %; Neutrophils % (A) 77 %; Platelet Count 152 k/uL (150-450); RBC 2.52 m/uL (3.80-5.40); RDW 13.9 % (11.5-15.5); WBC 5.3 k/uL (3.8-10.6)
[2022-10-04] MEDS ORDERED: cefTRIAXone IN SWFI 1,000 MG/10 ML SYRINGE IVP STA (14:44)
[2022-10-04 14:55] LABS: Albumin 2.8 g/dL (3.5-5.0); Calcium 6.7 mg/dL (8.4-10.2); Total Bilirubin 0.2 mg/dL (0.2-1.3); Total Protein 5.5 g/dL (6.3-8.2)
[2022-10-04] MEDS ORDERED: CALCIUM CARBONATE 500 MG CHEWABLE PO STA (14:55)
[2022-10-04] MEDS ORDERED: SODIUM CHLORIDE 0.9% 1,000 ML IV STA (15:30)
[2022-10-04] MEDS ORDERED: VANCOMYCIN 1,000 MG in SODIUM CHLORIDE 0.9% 250 ML IVPB STA ×2 (15:40→22:56)
[2022-10-04 15:51] LABS: Magnesium 1.7 mg/dL (1.6-2.3); Phosphorus 4.9 mg/dL (2.5-4.5)
[2022-10-04 16:35] LABS: Partial Thromboplastin Time 27.1 sec (22.0-30.0); Prothrombin Time 10.4 sec (9.0-12.0)
--- NOTE | 2022-10-04 17:11 | CT ---
EXAMINATION TYPE: CT angio abdomen pelvis DATE OF EXAM: 10/04/2022 COMPARISON: None HISTORY: wound infection, low hemoglobin.GI BLEED PROTOCOL CT DLP: 1430.5 mGycm Automated exposure control for dose reduction was used. CONTRAST: Performed without and with IV Contrast, patient injected with 80 mL of Isovue 370. There are 3-D postprocess images. Images obtained without and with the IV contrast. There is subsegmental atelectasis at the lung bases. Heart is enlarged. Liver spleen appear intact. T here is mild wall thickening of the stomach. No pancreatic mass. The bile ducts are not dilated. Gall bladder appears normal. There is no adrenal mass. Kidneys have normal size. No hydronephrosis. Ureters are not dilated. No inguinal hernia. There is dilated rectum with fluid level. Rectum measures up to 13 cm. Urinary bl adder is displaced anteriorly into the right side. There is mild subcutaneous edema around the abdome n. There is left side anterior stoma. Exam limited by lack of intestinal contrast. No evidence of pne umoperitoneum. There are surgical clips apparently at the cecum. No contrast extravasation seen to seals ggest active GI bleeding. There is contrast opacification of the abdominal aorta and the celiac artery and superior mesenteric artery. There is arterial flow in the renal and iliac and femoral arteries. There is atherosclerotic vascular calcification. No evidence of hemodynamic arterial stenosis. IMPRESSION: Markedly dilated rectum with fluid level and consistent with ileus or mechanical bowel obstruction at the rectum. No evidence of active bleeding. Atherosclerotic vascular disease.
[2022-10-04] MEDS ORDERED: NALOXONE 0.4 MG/ML 1 ML VIAL IV PRN (17:43)
--- NOTE | 2022-10-04 18:02 | ED ---
Abdominal Pain HPI - General Chief Complaint: Abdominal Pain Stated Complaint: Abdominal infection Time Seen by Provider: 10/04/22 13:40 Source: patient, EMS Mode of arrival: EMS Limitations: no limitations - History of Present Illness Initial Comments: Patient is a 62 year old female who presents with concern for post-op infection. Patient had a right and left colectomy with colostomy on 09/11/[address] Worthington. She presented yesterday with concern for infection of right surgical incision. She was discharged with Keflex. She started a prescription yesterday. Patient concerned that infection looks worse today. She denies fever, chills, abdominal pain, nausea, vomiting, diarrhea, constipation, blood in stool. Last bowel movement was yesterday which patient states she still as from time to time. BM normal, nonbloody. - Related Data Home Medications Medication Instructions Recorded Confirmed Calcium Carb-Vit D 500Mg-5Mcg 1 tab PO TID 10/04/22 10/04/22 [Oscal 500+D 5 Mcg (200 Iu)] Folic Acid 2 mg PO DAILY 10/04/22 10/04/22 HYDROcodone/APAP 5-325MG [[place] 1 tab PO Q6HR PRN 10/04/22 10/04/22 5-325] Ipratropium-Albuterol Nebulize 3 ml INHALATION RT-TID 10/04/22 10/04/22 [Duoneb 0.5 mg-3 mg/3 ml Soln] Omeprazole [PriLOSEC] 20 mg PO DAILY 10/04/22 10/04/22 Pyridoxine [Vitamin B-6] 50 mg PO DAILY 10/04/22 10/04/22 Previous Rx's Medication Instructions Recorded Acetaminophen Tab [Tylenol] 325 mg PO Q6HR PRN tab 09/17/22 Famotidine [Pepcid] 20 mg PO BID 30 Days #60 tablet 09/17/22 Heparin Sodium,Porcine [Heparin 5,000 unit SQ Q12HR #60 each 09/17/22 Sodium] Ipratropium-Albuterol Nebulize 3 ml INHALATION RT-QID PRN each 09/17/22 [Duoneb 0.5 mg-3 mg/3 ml Soln] Levothyroxine Sodium [Euthyrox] 75 mcg PO DAILY #30 tab 09/17/22 Multivitamins, Thera [Multivitamin 1 tab PO DAILY #30 tablet 09/17/22 (formulary)] Nystatin [Nystatin Oral Susp] 5 unit PO QID #240 ml 09/17/22 Simethicone 40 mg/0.6 ml Drops 80 mg PO QID ml 09/17/22 [Mylicon Drops] Thiamine [Vitamin B-1] 100 mg PO DAILY #30 tablet 09/17/22 Cephalexin [Keflex] 500 mg PO QID #36 cap 10/03/22 Allergies Allergy/AdvReac Type Severity Reaction Status Date / Time No Known Allergies Allergy Verified 10/04/22 18:05 Review of Systems ROS Statement: Those systems with pertinent positive or pertinent negative responses have been documented in the HPI. ROS Other: All systems not noted in ROS Statement are negative. Past Medical History Past Medical History: Cancer, COPD, Osteoarthritis (OA), Thyroid Disorder History of Any Multi-Drug Resistant Organisms: None Reported Past Surgical History: No Surgical Hx Reported Past Psychological History: No Psychological Hx Reported Smoking Status: Current every day smoker Past Alcohol Use History: None Reported Past Drug Use History: None Reported - Past Family History Mother History Unknown: Yes General Exam Limitations: no limitations General appearance: alert, in no apparent distress Eye exam: Present: normal appearance, PERRL, EOMI. Absent: scleral icterus, conjunctival injection, periorbital swelling Respiratory exam: Present: normal lung sounds bilaterally. Absent: respiratory distress, wheezes, rales, rhonchi, stridor Cardiovascular Exam: Present: regular rate, normal rhythm, normal heart sounds. Absent: systolic murmur, diastolic murmur, rubs, gallop, clicks GI/Abdominal exam: Present: soft, normal bowel sounds, other (approx 5 cm of dehiscence of right surgical incision of which has surrounding erythema and copious purulent drainage. No surrounding pain with palpation). Absent: distended, tenderness, guarding, rebound, rigid Neurological exam: Present: alert, oriented X3, CN II-XII intact Psychiatric exam: Present: normal affect, normal mood Skin exam: Present: warm, dry, intact, normal color. Absent: rash Course Vital Signs 10/04/22 10/04/22 10/04/22 13:21 15:09 15:15 Temperature 98.1 F Pulse Rate 76 78 75 Respiratory 15 15 18 Rate Blood Pressure 106/71 106/71 104/79 O2 Sat by Pulse 98 97 99 Oximetry 10/04/22 10/04/22 10/04/22 15:30 16:00 16:30 Temperature Pulse Rate 77 71 75 Respiratory 15 16 15 Rate Blood Pressure 104/79 99/70 116/72 O2 Sat by Pulse 100 100 Oximetry Medical Decision Making - Medical Decision Making Was pt. sent in by a medical professional or institution? Yes, [facility] Did you speak to anyone other than the patient for history? No Did you review nursing and triage notes? Yes, and I agree. Symptoms consistent with nursing and triage notes. Were old charts reviewed? Yes Differential Diagnosis? Postop wound infection, abdominal abscess EKG interpreted by me (3pts min.)? NA X-rays interpreted by me (1pt min.)? NA CT interpreted by me (1pt min.)? Yes, showing a markedly dilated rectum with fluid level consistent with ileus or mechanical bowel instruction. No evidence of active bleeding U/S interpreted by me (1pt. min.)? NA What testing was considered but not performed? (CT, X-rays, U/S, labs)? Why? NA What meds were considered but not given? Why? Pain medication was considered however patient denies pain Did you discuss the management of the patient with other professionals? S, Dr. Bell Did you reconcile home meds? No, meds not verified by pharmacy. Was smoking cessation discussed for >3mins.? No Was critical care preformed (if so, how long)? No Were there social determinants of health that impacted care today? How? (Homelessness, low income, unemployed, alcoholism, drug addiction, transportation, low edu. Level, literacy, decrease access to med. care, [place] [facility], rehab)? No Was there de-escalation of care discussed even if they declined? (Discuss DNR or withdrawal of care, Hospice)? No What co-morbidities impacted this encounter? (DM, HTN, Smoking, COPD, CAD, Cancer, CVA, Hep., AIDS, mental health diagnosis, sleep apnea, morbid obesity)? None Was patient admitted / discharged? This is a 62-year-old female presenting with postop wound infection. Based on previous documentation, infection appears to have progressed. No systemic symptoms or signs. Laboratory studies obtained. No leukoctytosis. Hemoglobin low at 8.4, consistently trending down from 13.1 since colectomy. Calcium low at 6.7. CT angiogram of the abdomen and pelvis shows a markedly dilated rectum with fluid level consistent with ileus or mechanical bowel obstruction at the rectum, no active bleeding. Again, patient has no abdominal pain, nausea, or vomiting. Also reports recent BM. Rocephin and vancomycin initiated. Patient to be admitted for IV antibiotics. Case discussed with Dr. Bell who accepts admission Undiagnosed new problem with uncertain prognosis? No Drug Therapy requiring intensive monitoring for toxicity (Heparin, Nitro, Insulin, Cardizem)? No Were any procedures done? No Diagnosis/symptom? Post-op wound infection Acute, or Chronic, or Acute on Chronic? Acute Uncomplicated (without systemic symptoms) or Complicated (systemic symptoms)? Uncomplicated Side effects of treatment? None Exacerbation, Progression, or Severe Exacerbation] NA Poses a threat to life or bodily function? Yes Dr. Teresa is my attending. - Lab Data Result diagrams: 10/04/22 14:35 10/04/22 14:35 Lab Results 10/04/22 10/04/22 10/04/22 Range/Units 14:35 14:35 14:35 WBC 5.3 (3.8-10.6) k/uL RBC 2.52 L (3.80-5.40) m/uL Hgb 8.4 L (11.4-16.0) gm/dL Hct 24.9 L (34.0-46.0) % MCV 98.6 (80.0-100.0) fL MCH 33.2 (25.0-35.0) pg MCHC 33.7 (31.0-37.0) g/dL RDW 13.9 (11.5-15.5) % Plt Count 152 (150-450) k/uL MPV 9.1 Neutrophils % 77 % Lymphocytes % 15 % Monocytes % 4 % Eosinophils % 1 % Basophils % 0 % Neutrophils # 4.0 (1.3-7.7) k/uL Lymphocytes # 0.8 L (1.0-4.8) k/uL Monocytes # 0.2 (0-1.0) k/uL Eosinophils # 0.1 (0-0.7) k/uL Basophils # 0.0 (0-0.2) k/uL PT (9.0-12.0) sec INR (<1.2) APTT (22.0-30.0) sec Sodium 134 L (137-145) mmol/L Potassium 4.0 (3.5-5.1) mmol/L Chloride 101 (98-107) mmol/L Carbon Dioxide 28 (22-30) mmol/L Anion Gap 5 mmol/L BUN 21 H (7-17) mg/dL Creatinine 1.10 H (0.52-1.04) mg/dL Est GFR (CKD-EPI)AfAm 62 (>60 ml/min/1.73 sqM) Est GFR (CKD-EPI)NonAf 54 (>60 ml/min/1.73 sqM) Glucose 81 (74-99) mg/dL Plasma Lactic Acid José Miguel (0.7-2.0) mmol/L Calcium 6.7 L (8.4-10.2) mg/dL Phosphorus 4.9 H (2.5-4.5) mg/dL Magnesium 1.7 (1.6-2.3) mg/dL Total Bilirubin 0.2 (0.2-1.3) mg/dL AST 24 (14-36) U/L ALT 19 (4-34) U/L Alkaline Phosphatase 80 (38-126) U/L Total Protein 5.5 L (6.3-8.2) g/dL Albumin 2.8 L (3.5-5.0) g/dL 10/04/22 10/04/22 Range/Units 16:08 16:08 WBC (3.8-10.6) k/uL RBC (3.80-5.40) m/uL Hgb (11.4-16.0) gm/dL Hct (34.0-46.0) % MCV (80.0-100.0) fL MCH (25.0-35.0) pg MCHC (31.0-37.0) g/dL RDW (11.5-15.5) % Plt Count (150-450) k/uL MPV Neutrophils % % Lymphocytes % % Monocytes % % Eosinophils % % Basophils % % Neutrophils # (1.3-7.7) k/uL Lymphocytes # (1.0-4.8) k/uL Monocytes # (0-1.0) k/uL Eosinophils # (0-0.7) k/uL Basophils # (0-0.2) k/uL PT 10.4 (9.0-12.0) sec INR 1.0 (<1.2) APTT 27.1 (22.0-30.0) sec Sodium (137-145) mmol/L Potassium (3.5-5.1) mmol/L Chloride (98-107) mmol/L Carbon Dioxide (22-30) mmol/L Anion Gap mmol/L BUN (7-17) mg/dL Creatinine (0.52-1.04) mg/dL Est GFR (CKD-EPI)AfAm (>60 ml/min/1.73 sqM) Est GFR (CKD-EPI)NonAf (>60 ml/min/1.73 sqM) Glucose (74-99) mg/dL Plasma Lactic Acid José Miguel 0.5 L (0.7-2.0) mmol/L Calcium (8.4-10.2) mg/dL Phosphorus (2.5-4.5) mg/dL Magnesium (1.6-2.3) mg/dL Total Bilirubin (0.2-1.3) mg/dL AST (14-36) U/L ALT (4-34) U/L Alkaline Phosphatase (38-126) U/L Total Protein (6.3-8.2) g/dL Albumin (3.5-5.0) g/dL Disposition Clinical Impression: Dehiscence of incision, Postoperative wound infection Disposition: ADMITTED IP TO THIS [facility] Condition: Good Referrals: Josue Engle DO [Primary Care Provider] - 1-2 days
[2022-10-04] MEDS: SODIUM CHLORIDE 0.9% 1,000 ML IV SCH (18:51)
[2022-10-04] MEDS ORDERED: VANCOMYCIN IV PER PHARMACY 1 EACH MISC MISCELLANE PRN (23:03)
[2022-10-05] MEDS: VANCOMYCIN 1,500 MG in SODIUM CHLORIDE 0.9% 500 ML 500 ML IVPB SCH ×2 (00:04→23:35)
[2022-10-05] MEDS: SODIUM CHLORIDE 0.9% 1,000 ML IV SCH ×2 (06:14→12:37)
[2022-10-05] MEDS ORDERED: IPRATROPIUM-ALBUTEROL 3 ML NEB INHALATION PRN (09:52)
[2022-10-05] MEDS ORDERED: FAMOTIDINE 20 MG TAB PO SCH (10:00)
[2022-10-05] MEDS: LEVOTHYROXINE 75 MCG TAB PO SCH (10:55)
[2022-10-05] MEDS: THIAMINE 100 MG TAB PO SCH (10:55)
[2022-10-05] MEDS: MULTIVITAMINS, THERA 1 EACH TAB PO SCH (10:55)
[2022-10-05] MEDS: PANTOPRAZOLE 40 MG TABLET PO SCH (10:55)
[2022-10-05] MEDS: FOLIC ACID 1 MG TAB PO SCH (10:55)
[2022-10-05] MEDS: PYRIDOXINE 50 MG TAB PO SCH (11:08)
[2022-10-05] MEDS: IPRATROPIUM-ALBUTEROL 3 ML NEB INHALATION SCH ×2 (11:56→20:48)
--- NOTE | 2022-10-05 21:12 | P.CONS ---
History of Present Illness - Reason for Consult Consult date: 10/05/22 Medical management Requesting physician: Mariely Bell - Chief Complaint Surgical incision infection - History of Present Illness This is a 62-year-old patient, who had severe ileus of right and left: And underwent right and left colectomy with end colostomy by Dr. Worthington on 09/21/2022. Patient was discharged from hospital on September 17. According to the patient patient's abdomen is remained uncomfortable. She has noticed drainage from incision site versus. Denies any obvious fever and chills. Does feel tired. Decreased appetite. Colostomy has been functioning. She does not really follow up with her family doctor. She started having drainage from incision and presented to the ER. Computed tomography scan of the ER of the abdomen was nonspecific. Denies any nausea vomiting. Review of systems: GEN.: Head, decreased appetite EYES: None HEENT: None NECK: None RESPIRATORY: Occasional shortness of breath CARDIOVASCULAR: None GASTROINTESTINAL: As above GENITOURINARY: None MUSCULOSKELETAL: Some joint pains LYMPHATICS: None HEMATOLOGICAL: None PSYCHIATRY: Anxious] NEUROLOGICAL: None Past medical history to include: Hypothyroid, osteomyelitis, COPD, Social history: Lives with her boyfriend. Smokes about half a pack a day. Does use a walker. Family history: Reviewed, noncontributory to presentation Physical examination: VITAL SIGNS: 98, 77, 17, 140/51, 95% room air GENERAL: BMI 29.1, declining but awake, not in distress. EYES: Pupils equal. Conjunctiva normal. HEENT: External appearance of nose and ears normal, oral cavity grossly normal. NECK: JVD not raised; masses not palpable. HEART: First and second heart sounds are normal; no edema. LUNGS: Respiratory rate normal; decreased breath sounds. ABDOMEN: Soft, right-sided tenderness over incision site. The dressing in place Liver spleen not palpable, no masses palpable. Left-sided colostomy PSYCH: Alert and oriented x3; mood and affect anxiousl. MUSCULOSKELETAL:No Clubbing/cyanosis;muscles-grossly intact NEUROLOGICAL: Cranial nerves grossly intact; no facial asymmetry, power and sensation grossly intact. LYMPHATICS: No lymph nodes palpable in the axilla and neck INVESTIGATIONS, reviewed in the clinical context: White count 5.3 hemoglobin 8.4 platelets 12 sodium 134 potassium 4. 21 creatinine 1.10 Computed tomography scan of the abdomen and pelvis: Nonspecific Assessment and plan: -Acute infection, surgical site incision On IV vancomycin. Wound cultures pending. Local wound care per surgery -GERD PPI -Hypothyroid Levothyroxin -COPD in a current smoker DuoNeb -Chronic nicotine dependence, cigarette smoker Nicotine patch -Hypoalbuminemia, acute phase reactant. No malnutrition IV vancomycin. Wound care per surgery. Resume home medications. Nicotine patch. Subcu Lovenox. Discussed with patient. Thank you Dr. Bell, will follow Past Medical History Past Medical History: Cancer, COPD, Osteoarthritis (OA), Thyroid Disorder History of Any Multi-Drug Resistant Organisms: None Reported Past Surgical History: No Surgical Hx Reported Past Anesthesia/Blood Transfusion Reactions: No Reported Reaction Past Psychological History: No Psychological Hx Reported Smoking Status: Current every day smoker Past Alcohol Use History: None Reported Past Drug Use History: None Reported - Past Family History Mother History Unknown: Yes Medications and Allergies Home Medications Medication Instructions Recorded Confirmed Type Acetaminophen Tab [Tylenol] 325 mg PO Q6HR PRN tab 09/17/22 10/04/22 Rx Famotidine [Pepcid] 20 mg PO BID 30 Days #60 tablet 09/17/22 10/04/22 Rx Heparin Sodium,Porcine [Heparin 5,000 unit SQ Q12HR #60 each 09/17/22 10/04/22 Rx Sodium] Ipratropium-Albuterol Nebulize 3 ml INHALATION RT-QID PRN each 09/17/22 10/04/22 Rx [Duoneb 0.5 mg-3 mg/3 ml Soln] Levothyroxine Sodium [Euthyrox] 75 mcg PO DAILY #30 tab 09/17/22 10/04/22 Rx Multivitamins, Thera [Multivitamin 1 tab PO DAILY #30 tablet 09/17/22 10/04/22 Rx (formulary)] Nystatin [Nystatin Oral Susp] 5 unit PO QID #240 ml 09/17/22 10/04/22 Rx Simethicone 40 mg/0.6 ml Drops 80 mg PO QID ml 09/17/22 10/04/22 Rx [Mylicon Drops] Thiamine [Vitamin B-1] 100 mg PO DAILY #30 tablet 09/17/22 10/04/22 Rx Cephalexin [Keflex] 500 mg PO QID #36 cap 10/03/22 10/04/22 Rx Calcium Carb-Vit D 500Mg-5Mcg 1 tab PO TID 10/04/22 10/04/22 History [Oscal 500+D 5 Mcg (200 Iu)] Folic Acid 2 mg PO DAILY 10/04/22 10/04/22 History HYDROcodone/APAP 5-325MG [[place] 1 tab PO Q6HR PRN 10/04/22 10/04/22 History 5-325] Ipratropium-Albuterol Nebulize 3 ml INHALATION RT-TID 10/04/22 10/04/22 History [Duoneb 0.5 mg-3 mg/3 ml Soln] Omeprazole [PriLOSEC] 20 mg PO DAILY 10/04/22 10/04/22 History Pyridoxine [Vitamin B-6] 50 mg PO DAILY 10/04/22 10/04/22 History Allergies Allergy/AdvReac Type Severity Reaction Status Date / Time No Known Allergies Allergy Verified 10/04/22 18:05 Physical Exam Vitals: Vital Signs Temp Pulse Pulse Resp BP BP Pulse Ox 10/05/22 07:04 98 F 77 17 140/51 95 10/05/22 02:00 98.3 F 75 16 92/54 97 10/04/22 23:44 81 16 10/04/22 21:16 98.0 F 81 16 95/58 91 L 10/04/22 18:30 75 17 120/75 100 10/04/22 18:00 75 15 124/67 100 10/04/22 17:00 77 15 116/72 98 10/04/22 16:30 75 15 116/72 10/04/22 16:00 71 16 99/70 100 10/04/22 15:30 77 15 104/79 100 10/04/22 15:15 75 18 104/79 99 10/04/22 15:09 78 15 106/71 97 10/04/22 13:21 98.1 F 76 15 106/71 98 Intake and Output 10/04/22 10/05/22 10/05/22 22:59 06:59 14:59 Intake Total 590 180 Balance 590 180 Intake: Oral 590 180 Other: Voiding Method Diaper # Voids 1 Weight 79.379 kg Results CBC & Chem 7: 10/04/22 14:35 10/04/22 14:35 Labs: Abnormal Lab Results - Last 24 Hours (Table) 10/04/22 10/04/22 10/04/22 Range/Units 14:35 14:35 14:35 RBC 2.52 L (3.80-5.40) m/uL Hgb 8.4 L (11.4-16.0) gm/dL Hct 24.9 L (34.0-46.0) % Lymphocytes # 0.8 L (1.0-4.8) k/uL Sodium 134 L (137-145) mmol/L BUN 21 H (7-17) mg/dL Creatinine 1.10 H (0.52-1.04) mg/dL Plasma Lactic Acid José Miguel (0.7-2.0) mmol/L Calcium 6.7 L (8.4-10.2) mg/dL Phosphorus 4.9 H (2.5-4.5) mg/dL Total Protein 5.5 L (6.3-8.2) g/dL Albumin 2.8 L (3.5-5.0) g/dL 10/04/22 Range/Units 16:08 RBC (3.80-5.40) m/uL Hgb (11.4-16.0) gm/dL Hct (34.0-46.0) % Lymphocytes # (1.0-4.8) k/uL Sodium (137-145) mmol/L BUN (7-17) mg/dL Creatinine (0.52-1.04) mg/dL Plasma Lactic Acid José Miguel 0.5 L (0.7-2.0) mmol/L Calcium (8.4-10.2) mg/dL Phosphorus (2.5-4.5) mg/dL Total Protein (6.3-8.2) g/dL Albumin (3.5-5.0) g/dL Microbiology - Last 24 Hours (Table) 10/04/22 14:35 Gram Stain - Preliminary Abdomen Wound Culture - Preliminary
--- NOTE | 2022-10-05 21:16 | P.GSCN ---
History of Present Illness Consult date: 10/05/22 History of present illness: Patient admitted due to wound dehiscence. WBC normal. Patient tolerating diet. Recommend wound care with wet-to-dry dressing. Suture exposed. Abdomen nontender. Likely increased risk for hernia described. Past Medical History Past Medical History: Cancer, COPD, Osteoarthritis (OA), Thyroid Disorder History of Any Multi-Drug Resistant Organisms: None Reported Past Surgical History: No Surgical Hx Reported Past Anesthesia/Blood Transfusion Reactions: No Reported Reaction Past Psychological History: No Psychological Hx Reported Smoking Status: Current every day smoker Past Alcohol Use History: None Reported Past Drug Use History: None Reported - Past Family History Mother History Unknown: Yes Medications and Allergies Home Medications Medication Instructions Recorded Confirmed Type Acetaminophen Tab [Tylenol] 325 mg PO Q6HR PRN tab 09/17/22 10/04/22 Rx Famotidine [Pepcid] 20 mg PO BID 30 Days #60 tablet 09/17/22 10/04/22 Rx Heparin Sodium,Porcine [Heparin 5,000 unit SQ Q12HR #60 each 09/17/22 10/04/22 Rx Sodium] Ipratropium-Albuterol Nebulize 3 ml INHALATION RT-QID PRN each 09/17/2210/26 Rx [Duoneb 0.5 mg-3 mg/3 ml Soln] Levothyroxine Sodium [Euthyrox] 75 mcg PO DAILY #30 tab 09/17/22 10/04/22 Rx Multivitamins, Thera [Multivitamin 1 tab PO DAILY #30 tablet 09/17/22 10/04/22 Rx (formulary)] Nystatin [Nystatin Oral Susp] 5 unit PO QID #240 ml 09/17/22 10/04/22 Rx Simethicone 40 mg/0.6 ml Drops 80 mg PO QID ml 09/17/22 10/04/22 Rx [Mylicon Drops] Thiamine [Vitamin B-1] 100 mg PO DAILY #30 tablet 09/17/22 10/04/22 Rx Cephalexin [Keflex] 500 mg PO QID #36 cap 10/03/22 10/04/22 Rx Calcium Carb-Vit D 500Mg-5Mcg 1 tab PO TID 10/04/22 10/04/22 History [Oscal 500+D 5 Mcg (200 Iu)] Folic Acid 2 mg PO DAILY 10/04/22 10/04/22 History HYDROcodone/APAP 5-325MG [[place] 1 tab PO Q6HR PRN 10/04/22 10/04/22 History 5-325] Ipratropium-Albuterol Nebulize 3 ml INHALATION RT-TID 10/04/22 10/04/22 History [Duoneb 0.5 mg-3 mg/3 ml Soln] Omeprazole [PriLOSEC] 20 mg PO DAILY 10/04/22 10/04/22 History Pyridoxine [Vitamin B-6] 50 mg PO DAILY 10/04/22 10/04/22 History Allergies Allergy/AdvReac Type Severity Reaction Status Date / Time No Known Allergies Allergy Verified 10/04/22 18:05 Surgical - Exam Vital Signs Temp Pulse Resp BP Pulse Ox 98.1 F 76 15 106/71 98 10/04/22 13:21 10/04/22 13:21 10/04/22 13:21 10/04/22 13:21 10/04/22 13:21 Results - Labs 10/04/22 14:35 10/04/22 14:35 Microbiology - Last 24 Hours (Table) 10/04/22 15:00 Blood Culture - Preliminary Blood No Growth after 24 hours 10/04/22 14:43 Blood Culture - Preliminary Blood No Growth after 24 hours 10/04/22 14:35 Gram Stain - Preliminary Abdomen Wound Culture - Preliminary
[2022-10-05] MEDS: NICOTINE 14MG/24HR PATCH TRANSDERM SCH (21:37)
[2022-10-05] MEDS: ENOXAPARIN 40 MG/0.4 ML SYRINGE SQ SCH (21:37)
[2022-10-06] MEDS: LEVOTHYROXINE 75 MCG TAB PO SCH (05:08)
[2022-10-06] MEDS: IPRATROPIUM-ALBUTEROL 3 ML NEB INHALATION SCH ×3 (07:40→19:44)
[2022-10-06] MEDS: ENOXAPARIN 40 MG/0.4 ML SYRINGE SQ SCH (08:50)
[2022-10-06] MEDS: PANTOPRAZOLE 40 MG TABLET PO SCH (08:51)
[2022-10-06] MEDS: MULTIVITAMINS, THERA 1 EACH TAB PO SCH (08:51)
[2022-10-06] MEDS: FOLIC ACID 1 MG TAB PO SCH (08:51)
[2022-10-06] MEDS: PYRIDOXINE 50 MG TAB PO SCH (08:51)
[2022-10-06] MEDS: NICOTINE 14MG/24HR PATCH TRANSDERM SCH (08:51)
[2022-10-06] MEDS: FAMOTIDINE 20 MG TAB PO SCH (09:00)
[2022-10-06] MEDS: THIAMINE 100 MG TAB PO SCH (09:00)
[2022-10-06] MEDS: PIPERACILLIN-TAZOBACTAM 3.375 GM in SODIUM CHLORIDE 0.9% 100 ML IVPB SCH ×2 (11:33→20:10)
[2022-10-06] MEDS: SODIUM CHLORIDE 0.9% 1,000 ML IV SCH ×2 (11:38→20:11)
[2022-10-06] MEDS ORDERED: ACETAMINOPHEN TAB 500 MG TAB PO PRN (13:05)
--- NOTE | 2022-10-06 14:23 | P.PN ---
Subjective Progress Note Date: 10/06/22 CHIEF COMPLAINT: Wound dehiscence HISTORY OF PRESENT ILLNESS: Patient has evidence of a surgical wound dehiscence. There is no evidence of infection. Patient denies any abdominal pain. Ostomy with stool present. Denies any nausea or vomiting. Afebrile. WBC is 5.3 Hgb is 8.4 platelets 152 PHYSICAL EXAM: VITAL SIGNS: Reviewed. GENERAL: Well-developed in no acute distress. HEENT: No sclera icterus. Extraocular movements grossly intact. Moist buccal mucosa. Head is atraumatic, normocephalic. ABDOMEN: Soft. Nondistended. Nontender. Ostomy with stool. Incision with evidence of dehiscence. No significant drainage. No erythema. NEUROLOGIC: Alert and oriented. Cranial nerves II through XII grossly intact. ASSESSMENT: 1. Abdominal incision dehiscence 2. Patient status post right and left colectomy with ostomy placement on 09/11/2022 for severe ileus and pseudoobstruction 3. Dilated rectum noted on computed tomography scan PLAN: -Continue wet-to-dry dressing to abdominal incision -Continue supportive care -Further recommendations forthcoming per surgeon Physician Plugger Worker note has been reviewed by physician. Signing provider agrees with the documented findings, assessment, and plan of care. I have personally seen and examined the patient, reviewed the LAUNDRY MACHINE TENDER /PAs history, exam and MDM and agree with the assessment and plan as written. Based on total visit time, I have performed more than 50% of the visit. As above: Patient's CAT scan was reviewed. There is a large amount of air and liquid in the rectum. I do not see any definite evidence of perforation of the rectal stump. Digital rectal examination performed and approximately 400 mL of liquid stool was evacuated along with a large volume of air. Despite the patient attempting to defecate there was still some residual liquid and air palpable. We'll place fecal management system. Continue local wound care to the area of dehiscence. Objective - Vital Signs Vital signs: Vital Signs Temp 97.5 F L 10/06/22 13:22 Pulse 77 10/06/22 13:22 Resp 18 10/06/22 13:22 BP 124/73 10/06/22 13:22 Pulse Ox 97 10/06/22 13:22 FiO2 Intake & Output 01/02/23 01/03/23 01/03/23 18:59 06:59 18:59 Intake Total 360 0 Balance 360 0 Intake: Oral 360 0 Other: Voiding Method Diaper Diaper # Voids 1 2 1 # Bowel Movements 2 - Labs CBC & Chem 7: 10/04/22 14:35 10/06/22 07:09 Labs: Microbiology - Last 24 Hours (Table) 10/04/22 14:35 Gram Stain - Preliminary Abdomen Wound Culture - Preliminary Gram Neg Bacilli 10/04/22 15:00 Blood Culture - Preliminary Blood No Growth after 24 hours 10/04/22 14:43 Blood Culture - Preliminary Blood No Growth after 24 hours
[2022-10-06] MEDS: VANCOMYCIN 1,500 MG in SODIUM CHLORIDE 0.9% 500 ML 500 ML IVPB SCH (15:37)
--- NOTE | 2022-10-06 18:01 | P.PN ---
Progress Note - Text Progress Note Date: 10/06/22 - Chief Complaint Surgical incision infection Hospital course This is a 62-year-old patient, who had severe ileus of right and left: And underwent right and left colectomy with end colostomy by Dr. Worthington on 09/21/2022. Patient was discharged from hospital on September 17. According to the patient patient's abdomen is remained uncomfortable. She has noticed drainage from incision site versus. Denies any obvious fever and chills. Does feel tired. Decreased appetite. Colostomy has been functioning. She does not really follow up with her family doctor. She started having drainage from incision and presented to the ER. Computed to mography scan of the ER of the abdomen was nonspecific. Denies any nausea vomiting. 10/06/2022: Abdominal discomfort still present. Oral intake fair. Gram- negative bacilli growing in the wound. Added IV Zosyn. Continue IV vancomycin. No fever. Has abdominal wound dehiscence with infection. Active Medications Acetaminophen (Acetaminophen Tab 500 Mg Tab) 500 mg PO Q6HR PRN PRN Reason: Fever and/ or Pain Last Admin: 10/06/22 13:10 Dose: 500 mg Albuterol/Ipratropium (Ipratropium-Albuterol 3 Ml Neb) 3 ml INHALATION RT-QID PRN PRN Reason: Shortness Of Breath Or Wheezing Albuterol/Ipratropium (Ipratropium-Albuterol 3 Ml Neb) 3 ml INHALATION RT-TID [facility] Last Admin: 10/06/22 11:13 Dose: Not Given Enoxaparin Sodium (Enoxaparin 40 Mg/0.4 Ml Syringe) 40 mg SQ DAILY [facility] Last Admin: 10/06/22 08:50 Dose: 40 mg Famotidine (Famotidine 20 Mg Tab) 20 mg PO DAILY [facility] Last Admin: 10/06/22 09:00 Dose: 20 mg Folic Acid (Folic Acid 1 Mg Tab) 2 mg PO DAILY [facility] Last Admin: 10/06/22 08:51 Dose: 2 mg Sodium Chloride (Saline 0.9%) 1,000 mls @ 75 mls/hr IV .[id number] [facility] Last Admin: 10/06/22 11:38 Dose: Not Given Vancomycin HCl 1,500 mg/ (Sodium Chloride) 500 mls @ 167 mls/hr IVPB Q16H [facility] Last Admin: 10/06/22 15:37 Dose: 167 mls/hr Piperacillin Sod/Tazobactam (Sod 3.375 gm/ Sodium Chloride) 100 mls @ 25 mls/hr IVPB Q8H [facility]; Protocol Last Admin: 10/06/22 11:33 Dose: 25 mls/hr Levothyroxine Sodium (Levothyroxine 75 Mcg Tab) 75 mcg PO DAILY@0630 [facility] Last Admin: 10/06/22 05:08 Dose: 75 mcg Miscellaneous Information (Vancomycin Trough Due 1 Each Misc) 0 each MISCELLANE DIRECTED ONE Stop: 10/07/22 07:01 Multivitamins (Multivitamins, Thera 1 Each Tab) 1 each PO DAILY [facility] Last Admin: 10/06/22 08:51 Dose: 1 each Naloxone HCl (Naloxone 0.4 Mg/Ml 1 Ml Vial) 0.2 mg IV Q2M PRN PRN Reason: Opioid Reversal Nicotine (Nicotine 14mg/24hr Patch) 1 patch TRANSDERM DAILY [facility] Last Admin: 10/06/22 08:51 Dose: 1 patch Pantoprazole Sodium (Pantoprazole 40 Mg Tablet) 40 mg PO DAILY@0730 [facility] Last Admin: 10/06/22 08:51 Dose: 40 mg Pyridoxine HCl (Pyridoxine 50 Mg Tab) 50 mg PO DAILY [facility] Last Admin: 10/06/22 08:51 Dose: 50 mg Thiamine HCl (Thiamine 100 Mg Tab) 100 mg PO DAILY [facility] Last Admin: 10/06/22 09:00 Dose: 100 mg Past medical history to include: Hypothyroid, osteomyelitis, COPD, Social history: Lives with her boyfriend. Smokes about half a pack a day. Does use a walker. Family history: Reviewed, noncontributory to presentation Physical examination: VITAL SIGNS: 97.5, 77, 18, 124/73, 97% room air GENERAL: BMI 29.1, declining, not in distress. EYES: Pupils equal. Conjunctiva normal. HEENT: External appearance of nose and ears normal, oral cavity grossly normal. NECK: JVD not raised; masses not palpable. HEART: First and second heart sounds are normal; no edema. LUNGS: Respiratory rate normal; decreased breath sounds. ABDOMEN: Soft, right-sided tenderness over incision site. The dressing in place Liver spleen not palpable, no masses palpable. Left-sided colostomy PSYCH: Alert and oriented x3; mood and affect anxiousl. MUSCULOSKELETAL:No Clubbing/cyanosis;muscles-grossly intact INVESTIGATIONS, reviewed in the clinical context: Wound culture: Gram-negative bacilli Procalcitonin: 0.07 White count 5.3 hemoglobin 8.4 platelets 12 sodium 134 potassium 4. 21 creatin ine 1.10 Computed tomography scan of the abdomen and pelvis: Nonspecific Assessment and plan: -Acute infection, surgical surgical incision dehiscence On IV vancomycin with IV Zosyn. Wound cultures growing gram-negative bacilli. Local wound care per surgery -GERD PPI -Hypothyroid Levothyroxin -COPD in a current smoker DuoNeb -Chronic nicotine dependence, cigarette smoker Nicotine patch -Hypoalbuminemia, acute phase reactant. No malnutrition At IV Zosyn. Other medications to continue. Wound care dressing. Discussed with patient. Thank you Dr. Bell, will follow
[2022-10-07] MEDS: PIPERACILLIN-TAZOBACTAM 3.375 GM in SODIUM CHLORIDE 0.9% 100 ML IVPB SCH ×3 (04:44→20:56)
[2022-10-07] MEDS: LEVOTHYROXINE 75 MCG TAB PO SCH (06:07)
[2022-10-07] MEDS ORDERED: VANCOMYCIN TROUGH DUE 1 EACH MISC MISCELLANE ONE (07:00)
[2022-10-07] MEDS: IPRATROPIUM-ALBUTEROL 3 ML NEB INHALATION SCH ×3 (07:30→19:44)
[2022-10-07 07:45] LABS: Basophils % (A) 1 %; Eosinophils # (A) 0.1 k/uL (0-0.7); Eosinophils % (A) 2 %; HCT 24.9 % (34.0-46.0); HGB 8.3 gm/dL (11.4-16.0); Hypochromasia Slight; Lymphocytes # (A) 0.7 k/uL (1.0-4.8); Lymphocytes % (A) 14 %; MCH 33.4 pg (25.0-35.0); MCHC 33.4 g/dL (31.0-37.0); MCV 100.1 fL (80.0-100.0); Macrocytosis Slight; Mean Platelet Volume 8.4; Monocytes # (A) 0.3 k/uL (0-1.0); Monocytes % (A) 5 %; Neutrophils # (A) 3.6 k/uL (1.3-7.7); Neutrophils % (A) 75 %; Platelet Count 133 k/uL (150-450); RBC 2.49 m/uL (3.80-5.40); RDW 13.8 % (11.5-15.5); WBC 4.7 k/uL (3.8-10.6)
[2022-10-07 08:16] LABS: African American GFR (CKD) 60 (>60 ml/min/1.73 sqM); Anion Gap 5 mmol/L; Blood Urea Nitrogen 14 mg/dL (7-17); Carbon Dioxide 25 mmol/L (22-30); Chloride 108 mmol/L (98-107); Glucose 72 mg/dL (74-99); Non-African American GFR(CKD) 52 (>60 ml/min/1.73 sqM); Potassium 3.4 mmol/L (3.5-5.1); Sodium 138 mmol/L (137-145)
[2022-10-07 08:22] LABS: Calcium 6.4 mg/dL (8.4-10.2)
[2022-10-07] MEDS: ENOXAPARIN 40 MG/0.4 ML SYRINGE SQ SCH (09:03)
[2022-10-07] MEDS: PANTOPRAZOLE 40 MG TABLET PO SCH (09:04)
[2022-10-07] MEDS: NICOTINE 14MG/24HR PATCH TRANSDERM SCH (09:04)
[2022-10-07] MEDS: VANCOMYCIN 1,500 MG in SODIUM CHLORIDE 0.9% 500 ML 500 ML IVPB SCH (09:04)
[2022-10-07] MEDS: THIAMINE 100 MG TAB PO SCH (09:04)
[2022-10-07] MEDS: FOLIC ACID 1 MG TAB PO SCH (09:04)
[2022-10-07] MEDS: MULTIVITAMINS, THERA 1 EACH TAB PO SCH (09:05)
[2022-10-07] MEDS: FAMOTIDINE 20 MG TAB PO SCH (09:05)
[2022-10-07] MEDS: PYRIDOXINE 50 MG TAB PO SCH (09:13)
[2022-10-07] MEDS: SODIUM CHLORIDE 0.9% 1,000 ML IV SCH (14:04)
[2022-10-07] MEDS ORDERED: POTASSIUM CHLORIDE ER 20 MEQ TAB.ER PO STA (14:26)
--- NOTE | 2022-10-07 14:27 | P.PN ---
Subjective Progress Note Date: 10/07/22 CHIEF COMPLAINT: Wound dehiscence HISTORY OF PRESENT ILLNESS: Patient has evidence of a surgical wound dehiscence. There is no evidence of infection. Patient denies any abdominal pain. Ostomy with stool present. Denies any nausea or vomiting. Patient has fecal management system in place due to having a large amount of air and liquid in the rectum. Patient has a very small amount of liquidy stool noted in the tubing of the fecal matter system. Afebrile. WBC 4.7 Hgb 8.3+1 3373 potassium 3.4 cre atinine 1.12 calcium 6.4 PHYSICAL EXAM: VITAL SIGNS: Reviewed. GENERAL: Well-developed in no acute distress. HEENT: No sclera icterus. Extraocular movements grossly intact. Moist buccal mucosa. Head is atraumatic, normocephalic. ABDOMEN: Soft. Nondistended. Nontender. Ostomy with stool. Incision with evidence of dehiscence. No significant drainage. No erythema. NEUROLOGIC: Alert and oriented. Cranial nerves II through XII grossly intact. ASSESSMENT: 1. Abdominal incision dehiscence 2. Patient status post right and left colectomy with ostomy placement on 09/11/2022 for severe ileus and pseudoobstruction 3. Dilated rectum with air and liquid stool status post evacuation of 400 mL of liquid stool and air. 4. Hypokalemia PLAN: -Continue wet-to-dry dressing to abdominal incision -Continue supportive care -Continue fecal management system for another 24 hours. Patient may benefit from a rectal tube if no significant results with the FMS. -Replace potassium Physician Shipping Track Supervisor note has been reviewed by physician. Signing provider agrees with the documented findings, assessment, and plan of care. Objective - Vital Signs Vital signs: Vital Signs Temp 98.8 F 10/07/22 13:07 Pulse 75 10/07/22 13:07 Resp 18 10/07/22 13:07 BP 104/66 10/07/22 13:07 Pulse Ox 97 10/07/22 13:07 FiO2 Intake & Output 10/06/22 10/07/22 10/07/22 18:59 06:59 18:59 Output Total 400 500 Balance -400 -500 Output: Stool 400 500 Other: Voiding Method Diaper Diaper # Voids 1 3 1 # Bowel Movements 1 - Labs CBC & Chem 7: 10/07/22 06:53 10/07/22 06:53 Labs: Abnormal Lab Results - Last 24 Hours (Table) 10/07/22 10/07/22 Range/Units 06:53 06:53 RBC 2.49 L (3.80-5.40) m/uL Hgb 8.3 L (11.4-16.0) gm/dL Hct 24.9 L (34.0-46.0) % MCV 100.1 H (80.0-100.0) fL Plt Count 133 L (150-450) k/uL Lymphocytes # 0.7 L (1.0-4.8) k/uL Potassium 3.4 L (3.5-5.1) mmol/L Chloride 108 H (98-107) mmol/L Creatinine 1.12 H (0.52-1.04) mg/dL Glucose 72 L (74-99) mg/dL Calcium 6.4 L* (8.4-10.2) mg/dL Microbiology - Last 24 Hours (Table) 10/04/22 14:35 Gram Stain - Final Abdomen Wound Culture - Final Enterobacter cloacae 10/04/22 14:43 Blood Culture - Preliminary Blood No Growth after 48 hours 10/04/22 15:00 Blood Culture - Preliminary Blood No Growth after 48 hours
--- NOTE | 2022-10-07 14:40 | P.PN ---
Progress Note - Text Progress Note Date: 10/07/22 - Chief Complaint Surgical incision infection Hospital course This is a 62-year-old patient, who had severe ileus of right and left: And underwent right and left colectomy with end colostomy by Dr. Worthington on 09/21/2022. Patient was discharged from hospital on September 17. According to the patient patient's abdomen is remained uncomfortable. She has noticed drainage from incision site versus. Denies any obvious fever and chills. Does feel tired. Decreased appetite. Colostomy has been functioning. She does not really follow up with her family doctor. She started having drainage from incision and presented to the ER. Computed to mography scan of the ER of the abdomen was nonspecific. Denies any nausea vomiting. 10/06/2022: Abdominal discomfort still present. Oral intake fair. Gram- negative bacilli growing in the wound. Added IV Zosyn. Continue IV vancomycin. No fever. Has abdominal wound dehiscence with infection. 10/07/2022: Continues his oral intake. Discussed with Dr. Fuller yesterday. Patient had a large amount of air in liquid stool upon rectal exam. Following that the rectal tube was placed. Significant rectal dilatation on computed tomography scan. Does not have much output to the fecal management system today. Continue with antibiotics. No significant pain. Active Medications Acetaminophen (Acetaminophen Tab 500 Mg Tab) 500 mg PO Q6HR PRN PRN Reason: Fever and/ or Pain Last Admin: 10/06/22 13:10 Dose: 500 mg Albuterol/Ipratropium (Ipratropium-Albuterol 3 Ml Neb) 3 ml INHALATION RT-QID PRN PRN Reason: Shortness Of Breath Or Wheezing Albuterol/Ipratropium (Ipratropium-Albuterol 3 Ml Neb) 3 ml INHALATION RT-TID [facility] Last Admin: 10/07/22 11:31 Dose: Not Given Enoxaparin Sodium (Enoxaparin 40 Mg/0.4 Ml Syringe) 40 mg SQ DAILY [facility] Last Admin: 10/07/22 09:03 Dose: 40 mg Famotidine (Famotidine 20 Mg Tab) 20 mg PO DAILY [facility] Last Admin: 10/07/22 09:05 Dose: 20 mg Folic Acid (Folic Acid 1 Mg Tab) 2 mg PO DAILY [facility] Last Admin: 10/07/22 09:04 Dose: 2 mg Sodium Chloride (Saline 0.9%) 1,000 mls @ 75 mls/hr IV .[id number] [facility] Last Admin: 10/07/22 14:04 Dose: 75 mls/hr Piperacillin Sod/Tazobactam (Sod 3.375 gm/ Sodium Chloride) 100 mls @ 25 mls/hr IVPB Q8H [facility]; Protocol Last Admin: 10/07/22 14:03 Dose: 25 mls/hr Vancomycin HCl 1,250 mg/ (Sodium Chloride) 250 mls @ 125 mls/hr IVPB Q16H [facility] Levothyroxine Sodium (Levothyroxine 75 Mcg Tab) 75 mcg PO DAILY@0630 [facility] Last Admin: 10/07/22 06:07 Dose: 75 mcg Multivitamins (Multivitamins, Thera 1 Each Tab) 1 each PO DAILY [facility] Last Admin: 10/07/22 09:05 Dose: 1 each Naloxone HCl (Naloxone 0.4 Mg/Ml 1 Ml Vial) 0.2 mg IV Q2M PRN PRN Reason: Opioid Reversal Nicotine (Nicotine 14mg/24hr Patch) 1 patch TRANSDERM DAILY [facility] Last Admin: 10/07/22 09:04 Dose: 1 patch Pantoprazole Sodium (Pantoprazole 40 Mg Tablet) 40 mg PO DAILY@0730 [facility] Last Admin: 10/07/22 09:04 Dose: 40 mg Pyridoxine HCl (Pyridoxine 50 Mg Tab) 50 mg PO DAILY [facility] Last Admin: 10/07/22 09:13 Dose: 50 mg Thiamine HCl (Thiamine 100 Mg Tab) 100 mg PO DAILY [facility] Last Admin: 10/07/22 09:04 Dose: 100 mg Past medical history to include: Hypothyroid, osteomyelitis, COPD, Social history: Lives with her boyfriend. Smokes about half a pack a day. Does use a walker. Family history: Reviewed, noncontributory to presentation Physical examination: VITAL SIGNS: 98.8, 75, 18, 10 4 x 66, 97% room air GENERAL: reclining, not in distress. EYES: Pupils equal. Conjunctiva normal. HEENT: External appearance of nose and ears normal, oral cavity grossly normal. NECK: JVD not raised; masses not palpable. HEART: First and second heart sounds are normal; no edema. LUNGS: Respiratory rate normal; decreased breath sounds. ABDOMEN: Soft, right-sided tenderness over incision site. The dressing in place Liver spleen not palpable, no masses palpable. Left-sided colostomy fecal management system in place PSYCH: Alert and oriented x3; mood and affect anxiousl. MUSCULOSKELETAL:No Clubbing/cyanosis;muscles-grossly intact INVESTIGATIONS, reviewed in the clinical context: 10/07/2022: White count 4.7 hemoglobin 8.3 platelets 133 progression 3.4 creatinine 1.12 Wound culture: Enterobacter cloacae Procalcitonin: 0.07 White count 5.3 hemoglobin 8.4 platelets 12 sodium 134 potassium 4. 21 creatinine 1.10 Computed tomography scan of the abdomen and pelvis: Nonspecific Assessment and plan: -Acute infection, of the surgical incision with dehiscence On IV vancomycin with IV Zosyn. Wound cultures growing Enterobacter cloacae. Local wound care per surgery -GERD PPI -Hypothyroid Levothyroxin -COPD in a current smoker DuoNeb -Chronic nicotine dependence, cigarette smoker Nicotine patch -Hypoalbuminemia, acute phase reactant. No malnutrition IV Zosyn. Will DC IV vancomycin. Continue chopped diet. Consult ID. Plain abdominal x-ray Thank you will follow
[2022-10-07] MEDS: LACTATED RINGERS 1,000 ML IV SCH (14:54)
--- NOTE | 2022-10-07 16:08 | XR ---
EXAMINATION TYPE: XR abdomen 2V DATE OF EXAM: 10/07/2022 COMPARISON: 1222 HISTORY: Abdominal distention TECHNIQUE: One view abdominal series FINDINGS: The osseous structures are intact. The bowel gas pattern is nonspecific. Extensive retained fecal de bris. Remain prominent bowel loops in the lower abdomen. Is a nonspecific calcification involving the right abdomen. Gastric bubble is distended. Hypertrophic and degenerative change of the spine. Surgi rossana elida along the right pubic ramus. Arthropathy of the hips. Subsegmental changes at the left ulysses ng base. IMPRESSION: 1. Nonspecific abdomen correlate for constipation. 2. There remains prominent small bowel loops in the abdomen differential diagnosis would include an i leus or partial obstruction. 3. Nonspecific calcifications in the right abdomen
[2022-10-08] MEDS ORDERED: VANCOMYCIN 1,250 MG in SODIUM CHLORIDE 0.9% 250 ML IVPB SCH (01:00)
[2022-10-08] MEDS: PIPERACILLIN-TAZOBACTAM 3.375 GM in SODIUM CHLORIDE 0.9% 100 ML IVPB SCH ×3 (04:03→20:01)
[2022-10-08] MEDS: LEVOTHYROXINE 75 MCG TAB PO SCH (05:00)
--- NOTE | 2022-10-08 06:02 | P.CONS ---
History of Present Illness - Reason for Consult Consult date: 10/07/22 Wound infection Requesting physician: Cayden Green - Chief Complaint Abdominal incision dehiscence x few days - History of Present Illness Patient is a 62-year-old female in this patient will status post right and left colectomy and ostomy placement on 09/11/2022 for severe ileus and pseudoobstruction patient is subsequently presenting to the ER on October 04 for evaluation of possible surgical site infection apparently the patient did have opening of the middle part of her incision and the patient was started on oral Keflex however they noticed the area getting worse patient denies having any fever or any chills no abdominal pain no nausea no vomiting and did have a stool in her ostomy patient on presentation to the ER was afebrile and no fever has been recorded subsequently patient did have a normal white count, BUN and creatinine was mildly elevated liver enzymes are normal patient did have local cultures obtained currently growing Enterobacter patient has been treated with the vancomycin and Zosyn infectious disease was consulted today for further management of antibiotic therapy, patient did have a CT abdominal pelvis which did mention mildly dilated rectum with fluid level consistent with ileus or mechanical obstruction for the patient did have rectal tube placement and has been discontinued this afternoon CT was reviewed with radiologist did not mention any significant fluid collection at the site of abdominal wound dehiscence Review of Systems Positive point has been mentioned in the HPI rest of the systems are negative Past Medical History Past Medical History: Cancer, COPD, Osteoarthritis (OA), Thyroid Disorder History of Any Multi-Drug Resistant Organisms: None Reported Past Surgical History: No Surgical Hx Reported Past Anesthesia/Blood Transfusion Reactions: No Reported Reaction Past Psychological History: No Psychological Hx Reported Smoking Status: Current every day smoker Past Alcohol Use History: None Reported Past Drug Use History: None Reported - Past Family History Mother History Unknown: Yes Medications and Allergies Home Medications Medication Instructions Recorded Confirmed Type Acetaminophen Tab [Tylenol] 325 mg PO Q6HR PRN tab 09/17/22 10/04/22 Rx Famotidine [Pepcid] 20 mg PO BID 30 Days #60 tablet 09/17/22 10/04/22 Rx Ipratropium-Albuterol Nebulize 3 ml INHALATION RT-QID PRN each 09/17/22 10/04/22 Rx [Duoneb 0.5 mg-3 mg/3 ml Soln] Levothyroxine Sodium [Euthyrox] 75 mcg PO DAILY #30 tab 09/17/22 10/04/22 Rx Multivitamins, Thera [Multivitamin 1 tab PO DAILY #30 tablet 09/17/22 10/04/22 Rx (formulary)] Thiamine [Vitamin B-1] 100 mg PO DAILY #30 tablet 09/17/22 10/04/22 Rx Calcium Carb-Vit D 500Mg-5Mcg 1 tab PO TID 10/04/22 10/04/22 History [Oscal 500+D 5 Mcg (200 Iu)] Folic Acid 2 mg PO DAILY 10/04/22 10/04/22 History HYDROcodone/APAP 5-325MG [Holt 1 tab PO Q6HR PRN 10/04/22 10/04/22 History 5-325] Ipratropium-Albuterol Nebulize 3 ml INHALATION RT-TID 10/04/22 10/04/22 History [Duoneb 0.5 mg-3 mg/3 ml Soln] Omeprazole [PriLOSEC] 20 mg PO DAILY 10/04/22 10/04/22 History Pyridoxine [Vitamin B-6] 50 mg PO DAILY 10/04/22 10/04/22 History Ciprofloxacin HCl [Cipro] 500 mg PO Q12HR 7 Days #14 tab 10/12/22 Rx HYDROcodone/APAP 5-325MG [Holt 1 tab PO Q6HR PRN 3 Days #12 tab 10/12/22 Rx 5-325] Nicotine 14Mg/24Hr Patch [Habitrol] 1 patch TRANSDERM DAILY #14 patch 10/12/22 Rx Allergies Allergy/AdvReac Type Severity Reaction Status Date / Time No Known Allergies Allergy Verified 10/04/22 18:05 Physical Exam Vitals: Vital Signs Temp Pulse Resp BP Pulse Ox 10/07/22 13:07 98.8 F 75 18 104/66 97 10/07/22 08:05 98.1 F 83 18 115/67 97 10/07/22 02:00 97.6 F 69 16 125/75 95 10/06/22 20:00 98.1 F 76 16 128/69 98 Intake and Output 10/06/22 10/07/22 10/07/22 22:59 06:59 14:59 Output Total 400 500 Balance -400 -500 Output: Stool 400 500 Other: Voiding Method Diaper Diaper # Voids 1 3 1 # Bowel Movements 1 GENERAL DESCRIPTION: Middle-aged female lying in bed, no distress. No tachypnea or accessory muscle of respiration use. HEENT: Shows Pallor , no scleral icterus. Oral mucous membrane is dry. No pharyngeal erythema or thrush NECK: Trachea central, no thyromegaly. LUNGS: Unlabored breathing. Clear to auscultation anteriorly. No wheeze or crackle. HEART: S1, S2, regular rate and rhythm. No loud murmur ABDOMEN: Soft, midline abdominal wound middle part did have a wound dehiscence no significant surrounding redness or foul-smelling drainage EXTREMITIES: No edema of feet. SKIN: No rash, no masses palpable. NEUROLOGICAL: The patient is awake, alert, oriented x3, mood and affect normal. Results CBC & Chem 7: 10/07/22 06:53 10/10/22 06:52 Labs: Abnormal Lab Results - Last 24 Hours (Table) 10/07/22 10/07/22 Range/Units 06:53 06:53 RBC 2.49 L (3.80-5.40) m/uL Hgb 8.3 L (11.4-16.0) gm/dL Hct 24.9 L (34.0-46.0) % MCV 100.1 H (80.0-100.0) fL Plt Count 133 L (150-450) k/uL Lymphocytes # 0.7 L (1.0-4.8) k/uL Potassium 3.4 L (3.5-5.1) mmol/L Chloride 108 H (98-107) mmol/L Creatinine 1.12 H (0.52-1.04) mg/dL Glucose 72 L (74-99) mg/dL Calcium 6.4 L* (8.4-10.2) mg/dL Microbiology - Last 24 Hours (Table) 10/04/22 14:35 Gram Stain - Final Abdomen Wound Culture - Final Enterobacter cloacae 10/04/22 14:43 Blood Culture - Preliminary Blood No Growth after 48 hours 10/04/22 15:00 Blood Culture - Preliminary Blood No Growth after 48 hours Assessment and Plan (1) Dehiscence of incision Status: Acute Code(s): T81.31XA - DISRUPTION OF EXTERNAL OPERATION (SURGICAL) WOUND, NEC, INIT SNOMED Code(s): 85116531 Plan: 1patient with abdominal wound dehiscence in this patient for recently did have a right and left colectomy along with colostomy presenting with abdominal wound dehiscence cultures are currently growing Enterobacter however the patient not running any fever or any elevated white count CT abdominal pelvis did not show any evidence of abdominal wall cellulitis or abscess questionably superficial infection versus colonization. 2May continue short course of Zosyn while inpatient however no plan for IV antibiotic on discharge. 3continue local wound care per surgery. We will follow on clinical condition and cultures to further adjust medication if needed Thank you for this consultation we will follow the patient along with you Time with Patient: Greater than 30
[2022-10-08] MEDS: FOLIC ACID 1 MG TAB PO SCH (08:00)
[2022-10-08] MEDS: MULTIVITAMINS, THERA 1 EACH TAB PO SCH (08:00)
[2022-10-08] MEDS: THIAMINE 100 MG TAB PO SCH (08:00)
[2022-10-08] MEDS: FAMOTIDINE 20 MG TAB PO SCH (08:00)
[2022-10-08] MEDS: PYRIDOXINE 50 MG TAB PO SCH (08:00)
[2022-10-08] MEDS: IPRATROPIUM-ALBUTEROL 3 ML NEB INHALATION SCH ×3 (08:01→20:20)
[2022-10-08] MEDS: PANTOPRAZOLE 40 MG TABLET PO SCH (08:01)
[2022-10-08] MEDS: NICOTINE 14MG/24HR PATCH TRANSDERM SCH (08:01)
[2022-10-08] MEDS: ENOXAPARIN 40 MG/0.4 ML SYRINGE SQ SCH (08:01)
[2022-10-08 09:34] LABS: African American GFR (CKD) 65 (>60 ml/min/1.73 sqM); Anion Gap 6 mmol/L; Blood Urea Nitrogen 14 mg/dL (7-17); Calcium 6.8 mg/dL (8.4-10.2); Carbon Dioxide 26 mmol/L (22-30); Chloride 109 mmol/L (98-107); Glucose 94 mg/dL (74-99); Non-African American GFR(CKD) 57 (>60 ml/min/1.73 sqM); Potassium 3.5 mmol/L (3.5-5.1); Sodium 141 mmol/L (137-145)
[2022-10-08] MEDS: LACTATED RINGERS 1,000 ML IV SCH (12:37)
--- NOTE | 2022-10-08 14:04 | P.PN ---
Subjective Progress Note Date: 10/08/22 Principal diagnosis: Abdominal wound dehiscence with a positive culture Patient is a 62-year-old female who is status post right and left colectomy completed on 09/11/2022 subsequent the presenting to the hospital with abdominal wound dehiscence CT abdomen and pelvis did not show any abscess did have significant dilatation of the rectum for the patient did have a rectal tube which was discontinued on 10/07/2022, patient also have a abdominal wound dehiscence with local culture grew Enterobacter. On today's evaluation that is 10/08/2022, the patient denies having any fever or any chills patient denies having any abdominal pain no chest pain shortness of breath or cough no nausea no vomiting Objective - Vital Signs Vital signs: Vital Signs Temp 98.4 F 10/08/22 07:30 Pulse 79 10/08/22 07:30 Resp 16 10/08/22 07:30 BP 135/76 10/08/22 07:30 Pulse Ox 97 10/08/22 07:30 FiO2 Intake & Output 10/07/22 10/08/22 10/08/22 18:59 06:59 18:59 Intake Total 600 Output Total 550 75 Balance 50 -75 Intake: Intake, IV Titration 600 Amount Piperacillin-Tazobactam 3 100 .375 gm In Sodium Chloride 0.9% 100 ml @ 25 mls/hr IVPB Q8H [facility] Rx#: [id number] Vancomycin 1,250 mg In 500 Sodium Chloride 0.9% 250 ml @ 125 mls/hr IVPB Q16H [facility] Rx#:[id number] Output: Stool 550 75 Other: Voiding Method Diaper Diaper Diaper # Voids 1 1 - Exam GENERAL DESCRIPTION: Middle-aged female lying in bed in no distress RESPIRATORY SYSTEM: Unlabored breathing , decreased breath sounds at bases HEART: S1 S2 regular rate and rhythm , ABDOMEN: Soft , midline abdominal wound is currently dressed no drainage, no tenderness EXTREMITIES: No edema feet - Labs CBC & Chem 7: 10/07/22 06:53 10/08/22 08:41 Labs: Abnormal Lab Results - Last 24 Hours (Table) 10/08/22 Range/Units 08:41 Chloride 109 H (98-107) mmol/L Creatinine 1.05 H (0.52-1.04) mg/dL Calcium 6.8 L (8.4-10.2) mg/dL Microbiology - Last 24 Hours (Table) 10/04/22 15:00 Blood Culture - Preliminary Blood No Growth after 72 hours 10/04/22 14:43 Blood Culture - Preliminary Blood No Growth after 72 hours Assessment and Plan (1) Dehiscence of incision Current Visit: Yes Status: Acute Code(s): T81.31XA - DISRUPTION OF EXTERNAL OPERATION (SURGICAL) WOUND, NEC, INIT SNOMED Code(s): 97761449 Plan: 1patient with abdominal wound dehiscence in this patient for recently did have a right and left colectomy along with colostomy presenting with abdominal wound dehiscence cultures are currently growing Enterobacter however the patient not running any fever or any elevated white count CT abdominal pelvis did not show any evidence of abdominal wall cellulitis or abscess questionably superficial infection versus colonization. 2patient to continue with short course of Zosyn while inpatient however no plan for IV antibiotic on discharge. 3continue local wound care per surgery. Time with Patient: Less than 30
[2022-10-08] MEDS ORDERED: POTASSIUM CHLORIDE ER 20 MEQ TAB.ER PO STA (15:18)
--- NOTE | 2022-10-08 15:19 | P.PN ---
Subjective Progress Note Date: 10/08/22 CHIEF COMPLAINT: Wound dehiscence HISTORY OF PRESENT ILLNESS: Patient has evidence of a surgical wound dehiscence. There is no evidence of infection. Patient denies any abdominal pain. Ostomy with stool present. Denies any nausea or vomiting. Fecal management system was removed yesterday due to causing patient discomfort. There are no rectal tubes available. Afebrile. Potassium 3.5 PHYSICAL EXAM: VITAL SIGNS: Reviewed. GENERAL: Well-developed in no acute distress. HEENT: No sclera icterus. Extraocular movements grossly intact. Moist buccal mucosa. Head is atraumatic, normocephalic. ABDOMEN: Soft. Nondistended. Nontender. Ostomy with stool. Incision with evidence of dehiscence. No significant drainage. No erythema. NEUROLOGIC: Alert and oriented. Cranial nerves II through XII grossly intact. ASSESSMENT: 1. Abdominal incision dehiscence 2. Patient status post right and left colectomy with ostomy placement on 09/11/2022 for severe ileus and pseudoobstruction 3. Dilated rectum with air and liquid stool status post evacuation of 400 mL of liquid stool and air. 4. Hypokalemia PLAN: -Continue wet-to-dry dressing to abdominal incision -Continue supportive care -Replace potassium -Further recommendations forthcoming per surgeon Physician Neonatal Social Worker note has been reviewed by physician. Signing provider agrees with the documented findings, assessment, and plan of care. I have personally seen and examined the patient, reviewed the BOBBIN PRESSER /PAs history, exam and MDM and agree with the assessment and plan as written. Based on total visit time, I have performed more than 50% of the visit. As above: Patient declining rectal tube placement and rectal tube apparently n ot found yet by the nursing staff. At this time we will likely repeat rectal exam tomorrow to see how much residual air and stool was present. X-rays noted. Objective - Vital Signs Vital signs: Vital Signs Temp 99.1 F 10/08/22 12:59 Pulse 82 10/08/22 12:59 Resp 16 10/08/22 12:59 BP 117/75 10/08/22 12:59 Pulse Ox 96 10/08/22 12:59 FiO2 Intake & Output 10/07/22 10/08/22 10/08/22 18:59 06:59 18:59 Intake Total 600 Output Total 550 75 Balance 50 -75 Intake: Intake, IV Titration 600 Amount Piperacillin-Tazobactam 3 100 .375 gm In Sodium Chloride 0.9% 100 ml @ 25 mls/hr IVPB Q8H [facility] Rx#: [id number] Vancomycin 1,250 mg In 500 Sodium Chloride 0.9% 250 ml @ 125 mls/hr IVPB Q16H [facility] Rx#:[id number] Output: Stool 550 75 Other: Voiding Method Diaper Diaper Diaper # Voids 1 1 - Labs CBC & Chem 7: 10/07/22 06:53 10/08/22 08:41 Labs: Abnormal Lab Results - Last 24 Hours (Table) 10/08/22 Range/Units 08:41 Chloride 109 H (98-107) mmol/L Creatinine 1.05 H (0.52-1.04) mg/dL Calcium 6.8 L (8.4-10.2) mg/dL Microbiology - Last 24 Hours (Table) 10/04/22 15:00 Blood Culture - Preliminary Blood No Growth after 72 hours 10/04/22 14:43 Blood Culture - Preliminary Blood No Growth after 72 hours
--- NOTE | 2022-10-08 16:17 | P.PN ---
Progress Note - Text Progress Note Date: 10/08/22 - Chief Complaint Surgical incision infection Hospital course This is a 62-year-old patient, who had severe ileus of right and left: And underwent right and left colectomy with end colostomy by Dr. Worthington on 09/21/2022. Patient was discharged from hospital on September 17. According to the patient patient's abdomen is remained uncomfortable. She has noticed drainage from incision site versus. Denies any obvious fever and chills. Does feel tired. Decreased appetite. Colostomy has been functioning. She does not really follow up with her family doctor. She started having drainage from incision and presented to the ER. Computed to mography scan of the ER of the abdomen was nonspecific. Denies any nausea vomiting. 10/06/2022: Abdominal discomfort still present. Oral intake fair. Gram- negative bacilli growing in the wound. Added IV Zosyn. Continue IV vancomycin. No fever. Has abdominal wound dehiscence with infection. 10/07/2022: Continues his oral intake. Discussed with Dr. Fuller yesterday. Patient had a large amount of air in liquid stool upon rectal exam. Following that the rectal tube was placed. Significant rectal dilatation on computed tomography scan. Does not have much output to the fecal management system today. Continue with antibiotics. No significant pain. 10/08/2022: Tolerating oral diet. Colostomy is working. Pain controlled. Wet-to-dry dressing. Abdominal x-ray yesterday showed extensive retained fecal debris. Active Medications Acetaminophen (Acetaminophen Tab 500 Mg Tab) 500 mg PO Q6HR PRN PRN Reason: Fever and/ or Pain Last Admin: 10/06/22 13:10 Dose: 500 mg Albuterol/Ipratropium (Ipratropium-Albuterol 3 Ml Neb) 3 ml INHALATION RT-QID PRN PRN Reason: Shortness Of Breath Or Wheezing Albuterol/Ipratropium (Ipratropium-Albuterol 3 Ml Neb) 3 ml INHALATION RT-TID [facility] Last Admin: 10/08/22 11:52 Dose: Not Given Enoxaparin Sodium (Enoxaparin 40 Mg/0.4 Ml Syringe) 40 mg SQ DAILY [facility] Last Admin: 10/08/22 08:01 Dose: 40 mg Famotidine (Famotidine 20 Mg Tab) 20 mg PO DAILY [facility] Last Admin: 10/08/22 08:00 Dose: 20 mg Folic Acid (Folic Acid 1 Mg Tab) 2 mg PO DAILY [facility] Last Admin: 10/08/22 08:00 Dose: 2 mg Piperacillin Sod/Tazobactam (Sod 3.375 gm/ Sodium Chloride) 100 mls @ 25 mls/hr IVPB Q8H [facility]; Protocol Last Admin: 10/08/22 12:37 Dose: 25 mls/hr Lactated Ringer's (Lactated Ringers) 1,000 mls @ 50 mls/hr IV .Q20H [facility] Last Admin: 10/08/22 12:37 Dose: 50 mls/hr Levothyroxine Sodium (Levothyroxine 75 Mcg Tab) 75 mcg PO DAILY@0630 [facility] Last Admin: 10/08/22 05:00 Dose: 75 mcg Multivitamins (Multivitamins, Thera 1 Each Tab) 1 each PO DAILY [facility] Last Admin: 10/08/22 08:00 Dose: 1 each Naloxone HCl (Naloxone 0.4 Mg/Ml 1 Ml Vial) 0.2 mg IV Q2M PRN PRN Reason: Opioid Reversal Nicotine (Nicotine 14mg/24hr Patch) 1 patch TRANSDERM DAILY [facility] Last Admin: 10/08/22 08:01 Dose: 1 patch Pantoprazole Sodium (Pantoprazole 40 Mg Tablet) 40 mg PO DAILY@0730 [facility] Last Admin: 10/08/22 08:01 Dose: 40 mg Pyridoxine HCl (Pyridoxine 50 Mg Tab) 50 mg PO DAILY [facility] Last Admin: 10/08/22 08:00 Dose: 50 mg Thiamine HCl (Thiamine 100 Mg Tab) 100 mg PO DAILY [facility] Last Admin: 10/08/22 08:00 Dose: 100 mg Past medical history to include: Hypothyroid, osteomyelitis, COPD, Social history: Lives with her boyfriend. Smokes about half a pack a day. Does use a walker. Family history: Reviewed, noncontributory to presentation Physical examination: VITAL SIGNS: 99.1, 82, 16, 117/75, 96% room air GENERAL: reclining, not in distress. EYES: Pupils equal. Conjunctiva normal. HEENT: External appearance of nose and ears normal, oral cavity grossly normal. NECK: JVD not raised; masses not palpable. HEART: First and second heart sounds are normal; no edema. LUNGS: Respiratory rate normal; decreased breath sounds. ABDOMEN: Soft, right-sided tenderness over incision site. The dressing in place Liver spleen not palpable, no masses palpable. Left-sided colostomy fecal management system in place PSYCH: Alert and oriented x3; mood and affect anxiousl. MUSCULOSKELETAL:No Clubbing/cyanosis;muscles-grossly intact INVESTIGATIONS, reviewed in the clinical context: 10/08/2022: Oh3.5 creatinine 1.05 10/07/2022: White count 4.7 hemoglobin 8.3 platelets 133 progression 3.4 creatinine 1.12 Wound culture: Enterobacter cloacae Procalcitonin: 0.07 White count 5.3 hemoglobin 8.4 platelets 12 sodium 134 potassium 4. 21 creatinine 1.10 Computed tomography scan of the abdomen and pelvis: Nonspecific Assessment and plan: -Acute infection, of the surgical incision with dehiscence On IV Zosyn. Wound cultures growing Enterobacter cloacae. Local wound care per surgery -GERD PPI -Hypothyroid Levothyroxin -COPD in a current smoker DuoNeb -Chronic nicotine dependence, cigarette smoker Nicotine patch -Hypoalbuminemia, acute phase reactant. No malnutrition IV Zosyn. Continue chopped diet. But ID patient resisted oral antibiotic upon discharge . Thank you will follow
[2022-10-09] MEDS: PIPERACILLIN-TAZOBACTAM 3.375 GM in SODIUM CHLORIDE 0.9% 100 ML IVPB SCH ×3 (03:55→21:12)
[2022-10-09] MEDS: LEVOTHYROXINE 75 MCG TAB PO SCH (05:37)
[2022-10-09] MEDS: LACTATED RINGERS 1,000 ML IV SCH (05:38)
[2022-10-09] MEDS: IPRATROPIUM-ALBUTEROL 3 ML NEB INHALATION SCH ×3 (07:54→19:08)
[2022-10-09] MEDS: ENOXAPARIN 40 MG/0.4 ML SYRINGE SQ SCH (09:03)
[2022-10-09] MEDS: NICOTINE 14MG/24HR PATCH TRANSDERM SCH (09:03)
[2022-10-09] MEDS: PYRIDOXINE 50 MG TAB PO SCH (09:04)
[2022-10-09] MEDS: FOLIC ACID 1 MG TAB PO SCH (09:04)
[2022-10-09] MEDS: THIAMINE 100 MG TAB PO SCH (09:04)
[2022-10-09] MEDS: PANTOPRAZOLE 40 MG TABLET PO SCH (09:04)
[2022-10-09] MEDS: MULTIVITAMINS, THERA 1 EACH TAB PO SCH (09:04)
[2022-10-09] MEDS: FAMOTIDINE 20 MG TAB PO SCH (09:04)
[2022-10-09 10:14] VITALS: BMI 29.1
--- NOTE | 2022-10-09 12:11 | P.PN ---
Subjective Progress Note Date: 10/09/22 CHIEF COMPLAINT: Wound dehiscence HISTORY OF PRESENT ILLNESS: Patient has evidence of a surgical wound dehiscence. There is no evidence of infection. Patient denies any abdominal pain. Ostomy with stool present. Denies any nausea or vomiting. There are no rectal tubes available. Afebrile. PHYSICAL EXAM: VITAL SIGNS: Reviewed. GENERAL: Well-developed in no acute distress. HEENT: No sclera icterus. Extraocular movements grossly intact. Moist buccal mucosa. Head is atraumatic, normocephalic. ABDOMEN: Soft. Nondistended. Nontender. Ostomy with stool. Incision with evidence of dehiscence. No significant drainage. No erythema. NEUROLOGIC: Alert and oriented. Cranial nerves II through XII grossly intact. ASSESSMENT: 1. Abdominal incision dehiscence 2. Patient status post right and left colectomy with ostomy placement on 09/11/2022 for severe ileus and pseudoobstruction 3. Dilated rectum with air and liquid stool status post evacuation of 400 mL of liquid stool and air. 4. Hypokalemia PLAN: -Continue wet-to-dry dressing to abdominal incision -Continue supportive care -Further recommendations forthcoming per surgeon Physician Auto Parts Manager note has been reviewed by physician. Signing provider agrees with the documented findings, assessment, and plan of care. I have personally seen and examined the patient, reviewed the PSYCHIATRIC SECRETARY /PAs history, exam and MDM and agree with the assessment and plan as written. Based on total visit time, I have performed more than 50% of the visit. As above: Patient agreeable to a rectal exam to evaluate the dilated rectum. This was performed by myself with the nursing staff present. A large volume of air and liquid stool was evacuated under pressure. The degree of rectal dilation seems definitely improved from the study a few days ago. Objective - Vital Signs Vital signs: Vital Signs Temp 97.6 F 10/09/22 08:00 Pulse 86 10/09/22 08:00 Resp 18 10/09/22 08:00 BP 123/78 10/09/22 08:00 Pulse Ox 91 L 10/09/22 08:00 FiO2 Intake & Output 10/08/22 10/09/22 10/09/22 18:59 06:59 18:59 Intake Total 1200 180 Balance 1200 180 Weight 79.379 kg Intake: Oral 1200 180 Other: Voiding Method Diaper Diaper Diaper # Voids 1 # Bowel Movements 2 - Labs CBC & Chem 7: 10/07/22 06:53 10/08/22 08:41 Labs: Microbiology - Last 24 Hours (Table) 10/04/22 15:00 Blood Culture - Preliminary Blood No Growth after 96 hours 10/04/22 14:43 Blood Culture - Preliminary Blood No Growth after 96 hours
--- NOTE | 2022-10-09 15:58 | P.PN ---
Progress Note - Text Progress Note Date: 10/09/22 - Chief Complaint Surgical incision infection Hospital course This is a 62-year-old patient, who had severe ileus of right and left: And underwent right and left colectomy with end colostomy by Dr. Worthington on 09/21/2022. Patient was discharged from hospital on September 17. According to the patient patient's abdomen is remained uncomfortable. She has noticed drainage from incision site versus. Denies any obvious fever and chills. Does feel tired. Decreased appetite. Colostomy has been functioning. She does not really follow up with her family doctor. She started having drainage from incision and presented to the ER. Computed to mography scan of the ER of the abdomen was nonspecific. Denies any nausea vomiting. 10/06/2022: Abdominal discomfort still present. Oral intake fair. Gram- negative bacilli growing in the wound. Added IV Zosyn. Continue IV vancomycin. No fever. Has abdominal wound dehiscence with infection. 10/07/2022: Continues his oral intake. Discussed with Dr. Fuller yesterday. Patient had a large amount of air in liquid stool upon rectal exam. Following that the rectal tube was placed. Significant rectal dilatation on computed tomography scan. Does not have much output to the fecal management system today. Continue with antibiotics. No significant pain. 10/08/2022: Tolerating oral diet. Colostomy is working. Pain controlled. Wet-to-dry dressing. Abdominal x-ray yesterday showed extensive retained fecal debris. 10/09/2022: Rectal tube could not be located in the hospital. Dr. Fuller did a rectal exam and large amount of liquid stool and gas was again obtained. The meantime continue current antibiotics. Patient tolerating a diet. No abdominal pain Active Medications Acetaminophen (Acetaminophen Tab 500 Mg Tab) 500 mg PO Q6HR PRN PRN Reason: Fever and/ or Pain Last Admin: 10/06/22 13:10 Dose: 500 mg Albuterol/Ipratropium (Ipratropium-Albuterol 3 Ml Neb) 3 ml INHALATION RT-QID PRN PRN Reason: Shortness Of Breath Or Wheezing Albuterol/Ipratropium (Ipratropium-Albuterol 3 Ml Neb) 3 ml INHALATION RT-TID [facility] Last Admin: 10/09/22 11:22 Dose: Not Given Enoxaparin Sodium (Enoxaparin 40 Mg/0.4 Ml Syringe) 40 mg SQ DAILY [facility] Last Admin: 10/09/22 09:03 Dose: 40 mg Famotidine (Famotidine 20 Mg Tab) 20 mg PO DAILY [facility] Last Admin: 10/09/22 09:04 Dose: 20 mg Folic Acid (Folic Acid 1 Mg Tab) 2 mg PO DAILY [facility] Last Admin: 10/09/22 09:04 Dose: 2 mg Piperacillin Sod/Tazobactam (Sod 3.375 gm/ Sodium Chloride) 100 mls @ 25 mls/hr IVPB Q8H [facility]; Protocol Last Admin: 10/09/22 12:18 Dose: 25 mls/hr Lactated Ringer's (Lactated Ringers) 1,000 mls @ 50 mls/hr IV .Q20H [facility] Last Admin: 10/09/22 05:38 Dose: Not Given Levothyroxine Sodium (Levothyroxine 75 Mcg Tab) 75 mcg PO DAILY@0630 [facility] Last Admin: 10/09/22 05:37 Dose: 75 mcg Multivitamins (Multivitamins, Thera 1 Each Tab) 1 each PO DAILY [facility] Last Admin: 10/09/22 09:04 Dose: 1 each Naloxone HCl (Naloxone 0.4 Mg/Ml 1 Ml Vial) 0.2 mg IV Q2M PRN PRN Reason: Opioid Reversal Nicotine (Nicotine 14mg/24hr Patch) 1 patch TRANSDERM DAILY [facility] Last Admin: 10/09/22 09:03 Dose: 1 patch Pantoprazole Sodium (Pantoprazole 40 Mg Tablet) 40 mg PO DAILY@0730 [facility] Last Admin: 10/09/22 09:04 Dose: 40 mg Pyridoxine HCl (Pyridoxine 50 Mg Tab) 50 mg PO DAILY [facility] Last Admin: 10/09/22 09:04 Dose: 50 mg Thiamine HCl (Thiamine 100 Mg Tab) 100 mg PO DAILY [facility] Last Admin: 10/09/22 09:04 Dose: 100 mg Past medical history to include: Hypothyroid, osteomyelitis, COPD, Social history: Lives with her boyfriend. Smokes about half a pack a day. Does use a walker. Family history: Reviewed, noncontributory to presentation Physical examination: VITAL SIGNS: 97.8, 87, 16, 11 7 x 75, 99% room air GENERAL: reclining, comfortable EYES: Pupils equal. Conjunctiva normal. HEENT: External appearance of nose and ears normal, oral cavity grossly normal. NECK: JVD not raised; masses not palpable. HEART: First and second heart sounds are normal; no edema. LUNGS: Respiratory rate normal; decreased breath sounds. ABDOMEN: Soft, distention, right-sided tenderness over incision site. The dressing in place Liver spleen not palpable, no masses palpable. Left-sided colostomy fecal management system in place PSYCH: Alert and oriented x3; mood and affect anxiousl. MUSCULOSKELETAL:No Clubbing/cyanosis;muscles-grossly intact INVESTIGATIONS, reviewed in the clinical context: 10/08/2022: Oh3.5 creatinine 1.05 10/07/2022: White count 4.7 hemoglobin 8.3 platelets 133 progression 3.4 creatinine 1.12 Wound culture: Enterobacter cloacae Procalcitonin: 0.07 White count 5.3 hemoglobin 8.4 platelets 12 sodium 134 potassium 4. 21 creatinine 1.10 Computed tomography scan of the abdomen and pelvis: Nonspecific Assessment and plan: -Acute infection, of the surgical incision with dehiscence On IV Zosyn. Wound cultures growing Enterobacter cloacae. Local wound care per surgery -Large fecal retention in the residual colon with dilatation Rectal examination [address] Fuller resulted large amount of watery stool and air being passed. -GERD PPI -Hypothyroid Levothyroxin -COPD in a current smoker DuoNeb -Chronic nicotine dependence, cigarette smoker Nicotine patch -Hypoalbuminemia, acute phase reactant. No malnutrition IV Zosyn. Continue chopped diet. Large amount of liquid stool obtained on rectal exam again today. No rectal tube available in the hospital. Thank you will follow
--- NOTE | 2022-10-09 21:44 | P.PN ---
Subjective Progress Note Date: 10/09/22 Principal diagnosis: Abdominal wound dehiscence with a positive culture Patient is a 62-year-old female who is status post right and left colectomy completed on 09/11/2022 subsequent the presenting to the hospital with abdominal wound dehiscence CT abdomen and pelvis did not show any abscess did have significant dilatation of the rectum for the patient did have a rectal tube which was discontinued on 10/07/2022, patient also have a abdominal wound dehiscence with local culture grew Enterobacter. On today's evaluation that is 10/09/2022, the patient remains to be afebrile, the patient denies any chest pain shortness of breath or cough abdominal pain is currently controlled no nausea no vomiting or any diarrhea Objective - Vital Signs Vital signs: Vital Signs Temp 97.6 F 10/09/22 08:00 Pulse 86 10/09/22 08:00 Resp 18 10/09/22 08:00 BP 123/78 10/09/22 08:00 Pulse Ox 91 L 10/09/22 08:00 FiO2 Intake & Output 10/08/22 10/09/22 10/09/22 18:59 06:59 18:59 Intake Total 1200 180 Balance 1200 180 Weight 79.379 kg Intake: Oral 1200 180 Other: Voiding Method Diaper Diaper Diaper # Voids 1 # Bowel Movements 2 - Exam GENERAL DESCRIPTION: Middle-aged female lying in bed in no distress RESPIRATORY SYSTEM: Unlabored breathing , decreased breath sounds at bases HEART: S1 S2 regular rate and rhythm , ABDOMEN: Soft , midline abdominal wound is currently dressed no drainage, no tenderness EXTREMITIES: No edema feet - Labs CBC & Chem 7: 10/07/22 06:53 10/08/22 08:41 Labs: Microbiology - Last 24 Hours (Table) 10/04/22 15:00 Blood Culture - Preliminary Blood No Growth after 96 hours 10/04/22 14:43 Blood Culture - Preliminary Blood No Growth after 96 hours Assessment and Plan (1) Dehiscence of incision Current Visit: Yes Status: Acute Code(s): T81.31XA - DISRUPTION OF EXTERNAL OPERATION (SURGICAL) WOUND, NEC, INIT SNOMED Code(s): 41358175 Plan: 1patient with abdominal wound dehiscence in this patient for recently did have a right and left colectomy along with colostomy presenting with abdominal wound dehiscence cultures are currently growing Enterobacter however the patient not running any fever or any elevated white count CT abdominal pelvis did not show any evidence of abdominal wall cellulitis or abscess questionably superficial infection versus colonization. 2patient to continue with Zosyn while inpatient and short course of oral Cipro on discharge. 3continue local wound care per surgery. Time with Patient: Less than 30
[2022-10-10] MEDS: PIPERACILLIN-TAZOBACTAM 3.375 GM in SODIUM CHLORIDE 0.9% 100 ML IVPB SCH ×3 (04:46→21:11)
[2022-10-10] MEDS: LACTATED RINGERS 1,000 ML IV SCH ×2 (05:00→21:15)
[2022-10-10] MEDS: LEVOTHYROXINE 75 MCG TAB PO SCH (06:52)
[2022-10-10] MEDS: IPRATROPIUM-ALBUTEROL 3 ML NEB INHALATION SCH ×3 (07:25→19:44)
[2022-10-10 08:11] LABS: African American GFR (CKD) 63 (>60 ml/min/1.73 sqM); Anion Gap 5 mmol/L; Blood Urea Nitrogen 19 mg/dL (7-17); Carbon Dioxide 30 mmol/L (22-30); Chloride 107 mmol/L (98-107); Glucose 72 mg/dL (74-99); Non-African American GFR(CKD) 55 (>60 ml/min/1.73 sqM); Potassium 3.7 mmol/L (3.5-5.1); Sodium 142 mmol/L (137-145)
[2022-10-10] MEDS: ENOXAPARIN 40 MG/0.4 ML SYRINGE SQ SCH (09:01)
[2022-10-10] MEDS: FOLIC ACID 1 MG TAB PO SCH (09:01)
[2022-10-10] MEDS: NICOTINE 14MG/24HR PATCH TRANSDERM SCH (09:02)
[2022-10-10] MEDS: MULTIVITAMINS, THERA 1 EACH TAB PO SCH (09:02)
[2022-10-10] MEDS: PYRIDOXINE 50 MG TAB PO SCH (09:02)
[2022-10-10] MEDS: FAMOTIDINE 20 MG TAB PO SCH (09:02)
[2022-10-10] MEDS: PANTOPRAZOLE 40 MG TABLET PO SCH (09:02)
[2022-10-10] MEDS: THIAMINE 100 MG TAB PO SCH (09:02)
--- NOTE | 2022-10-10 09:16 | P.PN ---
Subjective Progress Note Date: 10/10/22 Principal diagnosis: Wound dehiscence Patient doing well today. Denies pain. Tolerating diet. No residual rectal bowel function. Objective - Vital Signs Vital signs: Vital Signs Temp 98.7 F 10/10/22 07:45 Pulse 71 10/10/22 07:45 Resp 16 10/10/22 07:45 BP 118/75 10/10/22 07:45 Pulse Ox 96 10/10/22 07:45 FiO2 Intake & Output 10/09/22 10/10/22 10/10/22 18:59 06:59 18:59 Intake Total 720 Output Total 350 75 Balance 370 -75 Weight 79.379 kg Intake: Oral 720 Output: Stool 75 Urine/Stool Mix 350 Other: Voiding Method Diaper Diaper # Voids 4 2 # Bowel Movements 2 0 - Exam Abdomen: Soft, nontender, nondistended, midline wound with dehiscence to the level of the fascia, no erythema or significant drainage - Labs CBC & Chem 7: 10/07/22 06:53 10/10/22 06:52 Labs: Abnormal Lab Results - Last 24 Hours (Table) 10/10/22 Range/Units 06:52 BUN 19 H (7-17) mg/dL Creatinine 1.08 H (0.52-1.04) mg/dL Glucose 72 L (74-99) mg/dL Calcium 7.0 L (8.4-10.2) mg/dL Microbiology - Last 24 Hours (Table) 10/04/22 14:43 Blood Culture - Preliminary Blood No Growth after 120 hours 10/04/22 15:00 Blood Culture - Preliminary Blood No Growth after 120 hours Assessment and Plan (1) Dehiscence of incision Narrative/Plan: Patient doing well today. Will Pl[address] Otero catheter as a rectal tube to see if any additional air can be evacuated. Other than that patient can be discharged. Continue local wound care. Current Visit: Yes Status: Acute Code(s): T81.31XA - DISRUPTION OF EXTERNAL OPERATION (SURGICAL) WOUND, NEC, INIT SNOMED Code(s): 64195930
--- NOTE | 2022-10-10 15:08 | P.PN ---
Subjective Progress Note Date: 10/10/22 Principal diagnosis: Abdominal wound dehiscence with a positive culture Patient is a 62-year-old female who is status post right and left colectomy completed on 09/11/2022 subsequent the presenting to the hospital with abdominal wound dehiscence CT abdomen and pelvis did not show any abscess did have significant dilatation of the rectum for the patient did have a rectal tube which was discontinued on 10/07/2022, patient also have a abdominal wound dehiscence with local culture grew Enterobacter. On today's evaluation that is 10/10/2022, the patient continues to be afebrile, the patient denies any chest pain shortness of breath or cough , the patient abdominal pain is currently controlled no nausea no vomiting or any diarrhea and is feeling better Objective - Vital Signs Vital signs: Vital Signs Temp 98.1 F 10/10/22 12:50 Pulse 75 10/10/22 12:50 Resp 16 10/10/22 12:50 BP 101/64 10/10/22 12:50 Pulse Ox 95 10/10/22 12:50 FiO2 Intake & Output 10/09/22 10/10/22 10/10/22 18:59 06:59 18:59 Intake Total 720 180 Output Total 350 75 Balance 370 -75 180 Weight 79.379 kg Intake: Oral 720 180 Output: Stool 75 Urine/Stool Mix 350 Other: Voiding Method Diaper Diaper Diaper # Voids 4 2 # Bowel Movements 2 0 - Exam GENERAL DESCRIPTION: Middle-aged female lying in bed in no distress RESPIRATORY SYSTEM: Unlabored breathing , decreased breath sounds at bases HEART: S1 S2 regular rate and rhythm , ABDOMEN: Soft , midline abdominal wound is currently dressed no drainage, no tenderness EXTREMITIES: No edema feet - Labs CBC & Chem 7: 10/07/22 06:53 10/10/22 06:52 Labs: Abnormal Lab Results - Last 24 Hours (Table) 10/10/22 Range/Units 06:52 BUN 19 H (7-17) mg/dL Creatinine 1.08 H (0.52-1.04) mg/dL Glucose 72 L (74-99) mg/dL Calcium 7.0 L (8.4-10.2) mg/dL Microbiology - Last 24 Hours (Table) 10/04/22 14:43 Blood Culture - Preliminary Blood No Growth after 120 hours 10/04/22 15:00 Blood Culture - Preliminary Blood No Growth after 120 hours Assessment and Plan (1) Dehiscence of incision Current Visit: Yes Status: Acute Code(s): T81.31XA - DISRUPTION OF EXTERNAL OPERATION (SURGICAL) WOUND, NEC, INIT SNOMED Code(s): 22273848 Plan: 1patient with abdominal wound dehiscence in this patient for recently did have a right and left colectomy along with colostomy presenting with abdominal wound dehiscence cultures are currently growing Enterobacter however the patient not running any fever or any elevated white count CT abdominal pelvis did not show any evidence of abdominal wall cellulitis or abscess questionably superficial infection versus colonization. 2patient slowly clinically improving and will continue with Zosyn while inpatient and short course of oral Cipro on discharge. Time with Patient: Less than 30
--- NOTE | 2022-10-10 15:41 | P.PN ---
Progress Note - Text Progress Note Date: 10/10/22 - Chief Complaint Surgical incision infection Hospital course This is a 62-year-old patient, who had severe ileus of right and left: And underwent right and left colectomy with end colostomy by Dr. Worthington on 09/21/2022. Patient was discharged from hospital on September 17. According to the patient patient's abdomen is remained uncomfortable. She has noticed drainage from incision site versus. Denies any obvious fever and chills. Does feel tired. Decreased appetite. Colostomy has been functioning. She does not really follow up with her family doctor. She started having drainage from incision and presented to the ER. Computed to mography scan of the ER of the abdomen was nonspecific. Denies any nausea vomiting. 10/06/2022: Abdominal discomfort still present. Oral intake fair. Gram- negative bacilli growing in the wound. Added IV Zosyn. Continue IV vancomycin. No fever. Has abdominal wound dehiscence with infection. 10/07/2022: Continues his oral intake. Discussed with Dr. Fuller yesterday. Patient had a large amount of air in liquid stool upon rectal exam. Following that the rectal tube was placed. Significant rectal dilatation on computed tomography scan. Does not have much output to the fecal management system today. Continue with antibiotics. No significant pain. 10/08/2022: Tolerating oral diet. Colostomy is working. Pain controlled. Wet-to-dry dressing. Abdominal x-ray yesterday showed extensive retained fecal debris. 10/09/2022: Rectal tube could not be located in the hospital. Dr. Fuller did a rectal exam and large amount of liquid stool and gas was again obtained. The meantime continue current antibiotics. Patient tolerating a diet. No abdominal pain 10/10/2022: As rectal tube could not be found surgeries ordered a Otero catheter placement. Patient tolerating diet. Pain is well controlled. No fever. Active Medications Acetaminophen (Acetaminophen Tab 500 Mg Tab) 500 mg PO Q6HR PRN PRN Reason: Fever and/ or Pain Last Admin: 10/06/22 13:10 Dose: 500 mg Albuterol/Ipratropium (Ipratropium-Albuterol 3 Ml Neb) 3 ml INHALATION RT-QID PRN PRN Reason: Shortness Of Breath Or Wheezing Albuterol/Ipratropium (Ipratropium-Albuterol 3 Ml Neb) 3 ml INHALATION RT-TID [facility] Last Admin: 10/10/22 11:07 Dose: Not Given Enoxaparin Sodium (Enoxaparin 40 Mg/0.4 Ml Syringe) 40 mg SQ DAILY [facility] Last Admin: 10/10/22 09:01 Dose: 40 mg Famotidine (Famotidine 20 Mg Tab) 20 mg PO DAILY [facility] Last Admin: 10/10/22 09:02 Dose: 20 mg Folic Acid (Folic Acid 1 Mg Tab) 2 mg PO DAILY [facility] Last Admin: 10/10/22 09:01 Dose: 2 mg Piperacillin Sod/Tazobactam (Sod 3.375 gm/ Sodium Chloride) 100 mls @ 25 mls/hr IVPB Q8H [facility]; Protocol Last Admin: 10/10/22 13:48 Dose: 25 mls/hr Lactated Ringer's (Lactated Ringers) 1,000 mls @ 50 mls/hr IV .Q20H [facility] Last Admin: 10/10/22 05:00 Dose: 50 mls/hr Levothyroxine Sodium (Levothyroxine 75 Mcg Tab) 75 mcg PO DAILY@0630 [facility] Last Admin: 10/10/22 06:52 Dose: 75 mcg Multivitamins (Multivitamins, Thera 1 Each Tab) 1 each PO DAILY [facility] Last Admin: 10/10/22 09:02 Dose: 1 each Naloxone HCl (Naloxone 0.4 Mg/Ml 1 Ml Vial) 0.2 mg IV Q2M PRN PRN Reason: Opioid Reversal Nicotine (Nicotine 14mg/24hr Patch) 1 patch TRANSDERM DAILY [facility] Last Admin: 10/10/22 09:02 Dose: Not Given Pantoprazole Sodium (Pantoprazole 40 Mg Tablet) 40 mg PO DAILY@0730 [facility] Last Admin: 10/10/22 09:02 Dose: 40 mg Pyridoxine HCl (Pyridoxine 50 Mg Tab) 50 mg PO DAILY [facility] Last Admin: 10/10/22 09:02 Dose: 50 mg Thiamine HCl (Thiamine 100 Mg Tab) 100 mg PO DAILY [facility] Last Admin: 10/10/22 09:02 Dose: 100 mg Past medical history to include: Hypothyroid, osteomyelitis, COPD, Social history: Lives with her boyfriend. Smokes about half a pack a day. Does use a walker. Family history: Reviewed, noncontributory to presentation Physical examination: VITAL SIGNS: 98.1, 75, 16, 101/64, 95% room air GENERAL: reclining in bed, comfortable EYES: Pupils equal. Conjunctiva normal. HEENT: External appearance of nose and ears normal, oral cavity grossly normal. NECK: JVD not raised; masses not palpable. HEART: First and second heart sounds are normal; no edema. LUNGS: Respiratory rate normal; decreased breath sounds. ABDOMEN: Soft, distention, right-sided tenderness over incision site. The dressing in place Liver spleen not palpable, no masses palpable. Left-sided colostomy fecal management system in place PSYCH: Alert and oriented x3; mood and affect anxiousl. MUSCULOSKELETAL:No Clubbing/cyanosis;muscles-grossly intact INVESTIGATIONS, reviewed in the clinical context: 10/10/2022: Potassium 3.7 creatinine 1.08 10/08/2022: Oh3.5 creatinine 1.05 10/07/2022: White count 4.7 hemoglobin 8.3 platelets 133 progression 3.4 creatinine 1.12 Wound culture: Enterobacter cloacae Procalcitonin: 0.07 White count 5.3 hemoglobin 8.4 platelets 12 sodium 134 potassium 4. 21 creatinine 1.10 Computed tomography scan of the abdomen and pelvis: Nonspecific Assessment and plan: -Acute infection, of the surgical incision with dehiscence On IV Zosyn. Wound cultures growing Enterobacter cloacae. Local wound care per surgery -Large fecal retention in the residual colon with dilatation Rectal examination [address] Fuller resulted large amount of watery stool and air being passed. Rectal tube not available in the hospital. Otero catheter might be placed -GERD PPI -Hypothyroid Levothyroxin -COPD in a current smoker DuoNeb -Chronic nicotine dependence, cigarette smoker Nicotine patch -Hypoalbuminemia, acute phase reactant. No malnutrition IV Zosyn. Possibly Otero catheter placement in the rectum as rectal tube not available Thank you will follow
[2022-10-11] MEDS: PIPERACILLIN-TAZOBACTAM 3.375 GM in SODIUM CHLORIDE 0.9% 100 ML IVPB SCH ×3 (04:34→20:19)
[2022-10-11] MEDS: LEVOTHYROXINE 75 MCG TAB PO SCH (06:26)
[2022-10-11] MEDS: IPRATROPIUM-ALBUTEROL 3 ML NEB INHALATION SCH ×3 (07:30→21:28)
[2022-10-11] MEDS: MULTIVITAMINS, THERA 1 EACH TAB PO SCH (08:53)
[2022-10-11] MEDS: FOLIC ACID 1 MG TAB PO SCH (08:53)
[2022-10-11] MEDS: PANTOPRAZOLE 40 MG TABLET PO SCH (08:53)
[2022-10-11] MEDS: NICOTINE 14MG/24HR PATCH TRANSDERM SCH (08:54)
[2022-10-11] MEDS: FAMOTIDINE 20 MG TAB PO SCH (08:54)
[2022-10-11] MEDS: THIAMINE 100 MG TAB PO SCH (08:54)
[2022-10-11] MEDS: ENOXAPARIN 40 MG/0.4 ML SYRINGE SQ SCH (08:54)
[2022-10-11] MEDS: PYRIDOXINE 50 MG TAB PO SCH (08:54)
--- NOTE | 2022-10-11 14:51 | P.PN ---
Subjective Progress Note Date: 10/11/22 Principal diagnosis: Wound dehiscence Patient doing better today. No pain currently. Additional stool and air evacuated with Otero catheter yesterday. She is afebrile. Objective - Vital Signs Vital signs: Vital Signs Temp 97.7 F 10/11/22 12:15 Pulse 80 10/11/22 12:15 Resp 18 10/11/22 12:15 BP 118/75 10/11/22 12:15 Pulse Ox 96 10/11/22 12:15 FiO2 Intake & Output 10/10/22 10/11/22 10/11/22 18:59 06:59 18:59 Intake Total 205 400 Output Total 300 200 Balance -95 400 -200 Intake: Intake, IV Titration 25 Amount Piperacillin-Tazobactam 3 25 .375 gm In Sodium Chloride 0.9% 100 ml @ 25 mls/hr IVPB Q8H [facility] Rx#: [id number] Oral 180 400 Output: Stool 200 Urine/Stool Mix 300 Other: Voiding Method Diaper Diaper Diaper # Voids 1 1 1 - Exam Abdomen: Soft, nondistended, wound clean, ostomy functioning - Labs CBC & Chem 7: 10/07/22 06:53 10/10/22 06:52 Labs: Microbiology - Last 24 Hours (Table) 10/04/22 15:00 Blood Culture - Final Blood No Growth after 144 hours 10/04/22 14:43 Blood Culture - Final Blood No Growth after 144 hours Assessment and Plan (1) Dehiscence of incision Narrative/Plan: Patient doing well at this time. Continue diet. Continue local wound care. Anticipate discharge tomorrow. Current Visit: Yes Status: Acute Code(s): T81.31XA - DISRUPTION OF EXTERNAL OPERATION (SURGICAL) WOUND, NEC, INIT SNOMED Code(s): 63296794
--- NOTE | 2022-10-11 16:31 | P.PN ---
Progress Note - Text Progress Note Date: 10/11/22 - Chief Complaint Surgical incision infection Hospital course This is a 62-year-old patient, who had severe ileus of right and left: And underwent right and left colectomy with end colostomy by Dr. Worthington on 09/21/2022. Patient was discharged from hospital on September 17. According to the patient patient's abdomen is remained uncomfortable. She has noticed drainage from incision site versus. Denies any obvious fever and chills. Does feel tired. Decreased appetite. Colostomy has been functioning. She does not really follow up with her family doctor. She started having drainage from incision and presented to the ER. Computed to mography scan of the ER of the abdomen was nonspecific. Denies any nausea vomiting. 10/06/2022: Abdominal discomfort still present. Oral intake fair. Gram- negative bacilli growing in the wound. Added IV Zosyn. Continue IV vancomycin. No fever. Has abdominal wound dehiscence with infection. 10/07/2022: Continues his oral intake. Discussed with Dr. Fuller yesterday. Patient had a large amount of air in liquid stool upon rectal exam. Following that the rectal tube was placed. Significant rectal dilatation on computed tomography scan. Does not have much output to the fecal management system today. Continue with antibiotics. No significant pain. 10/08/2022: Tolerating oral diet. Colostomy is working. Pain controlled. Wet-to-dry dressing. Abdominal x-ray yesterday showed extensive retained fecal debris. 10/09/2022: Rectal tube could not be located in the hospital. Dr. Fuller did a rectal exam and large amount of liquid stool and gas was again obtained. The meantime continue current antibiotics. Patient tolerating a diet. No abdominal pain 10/10/2022: As rectal tube could not be found surgeries ordered a Otero catheter placement. Patient tolerating diet. Pain is well controlled. No fever. 10/11/2022: Additional flatus liquid stools obtained with placement of Otero cath in the rectum. Tolerating diet. No abdominal pain. Stool in the colostomy. Active Medications Acetaminophen (Acetaminophen Tab 500 Mg Tab) 500 mg PO Q6HR PRN PRN Reason: Fever and/ or Pain Last Admin: 10/06/22 13:10 Dose: 500 mg Albuterol/Ipratropium (Ipratropium-Albuterol 3 Ml Neb) 3 ml INHALATION RT-QID PRN PRN Reason: Shortness Of Breath Or Wheezing Albuterol/Ipratropium (Ipratropium-Albuterol 3 Ml Neb) 3 ml INHALATION RT-TID [facility] Last Admin: 10/11/22 11:05 Dose: Not Given Enoxaparin Sodium (Enoxaparin 40 Mg/0.4 Ml Syringe) 40 mg SQ DAILY [facility] Last Admin: 10/11/22 08:54 Dose: 40 mg Famotidine (Famotidine 20 Mg Tab) 20 mg PO DAILY [facility] Last Admin: 10/11/22 08:54 Dose: 20 mg Folic Acid (Folic Acid 1 Mg Tab) 2 mg PO DAILY [facility] Last Admin: 10/11/22 08:53 Dose: 2 mg Piperacillin Sod/Tazobactam (Sod 3.375 gm/ Sodium Chloride) 100 mls @ 25 mls/hr IVPB Q8H [facility]; Protocol Last Admin: 10/11/22 11:55 Dose: 25 mls/hr Lactated Ringer's (Lactated Ringers) 1,000 mls @ 50 mls/hr IV .Q20H [facility] Last Admin: 10/10/22 21:15 Dose: 50 mls/hr Levothyroxine Sodium (Levothyroxine 75 Mcg Tab) 75 mcg PO DAILY@0630 [facility] Last Admin: 10/11/22 06:26 Dose: 75 mcg Multivitamins (Multivitamins, Thera 1 Each Tab) 1 each PO DAILY [facility] Last Admin: 10/11/22 08:53 Dose: 1 each Naloxone HCl (Naloxone 0.4 Mg/Ml 1 Ml Vial) 0.2 mg IV Q2M PRN PRN Reason: Opioid Reversal Nicotine (Nicotine 14mg/24hr Patch) 1 patch TRANSDERM DAILY [facility] Last Admin: 10/11/22 08:54 Dose: Not Given Pantoprazole Sodium (Pantoprazole 40 Mg Tablet) 40 mg PO DAILY@0730 [facility] Last Admin: 10/11/22 08:53 Dose: 40 mg Pyridoxine HCl (Pyridoxine 50 Mg Tab) 50 mg PO DAILY [facility] Last Admin: 10/11/22 08:54 Dose: 50 mg Thiamine HCl (Thiamine 100 Mg Tab) 100 mg PO DAILY [facility] Last Admin: 10/11/22 08:54 Dose: 100 mg Past medical history to include: Hypothyroid, osteomyelitis, COPD, Social history: Lives with her boyfriend. Smokes about half a pack a day. Does use a walker. Family history: Reviewed, noncontributory to presentation Physical examination: VITAL SIGNS: 97.7, 80, 18, 108/75, 96% room air GENERAL: reclining in bed, comfortable EYES: Pupils equal. Conjunctiva normal. HEENT: External appearance of nose and ears normal, oral cavity grossly normal. NECK: JVD not raised; masses not palpable. HEART: First and second heart sounds are normal; no edema. LUNGS: Respiratory rate normal; decreased breath sounds. ABDOMEN: Soft, decreased distention, right-sided tenderness over incision site. The dressing in place Liver spleen not palpable, no masses palpable. Left-sided colostomy fecal management system in place PSYCH: Alert and oriented x3; mood and affect anxiousl. MUSCULOSKELETAL:No Clubbing/cyanosis;muscles-grossly intact INVESTIGATIONS, reviewed in the clinical context: 10/10/2022: Potassium 3.7 creatinine 1.08 10/08/2022: Oh3.5 creatinine 1.05 10/07/2022: White count 4.7 hemoglobin 8.3 platelets 133 progression 3.4 creatinine 1.12 Wound culture: Enterobacter cloacae Procalcitonin: 0.07 White count 5.3 hemoglobin 8.4 platelets 12 sodium 134 potassium 4. 21 creatinine 1.10 Computed tomography scan of the abdomen and pelvis: Nonspecific Assessment and plan: -Acute infection, of the surgical incision with dehiscence: Improving On IV Zosyn. Wound cultures growing Enterobacter cloacae. Local wound care per surgery -Large fecal retention in the residual colon with dilatation Rectal examination [address] Fuller resulted large amount of watery stool and air being passed. Rectal tube not available in the hospital. Otero catheter used for air and liquid stool evacuation -GERD PPI -Hypothyroid Levothyroxin -COPD in a current smoker DuoNeb -Chronic nicotine dependence, cigarette smoker Nicotine patch -Hypoalbuminemia, acute phase reactant. No malnutrition Discussed with surgery. Doing better. Probably discharge tomorrow. Oral Cipro Bridie upon discharge. Thank you will follow
[2022-10-12] MEDS: LACTATED RINGERS 1,000 ML IV SCH ×2 (00:08→15:39)
[2022-10-12] MEDS: PIPERACILLIN-TAZOBACTAM 3.375 GM in SODIUM CHLORIDE 0.9% 100 ML IVPB SCH ×2 (03:22→13:00)
[2022-10-12] MEDS: LEVOTHYROXINE 75 MCG TAB PO SCH (05:52)
[2022-10-12] MEDS: IPRATROPIUM-ALBUTEROL 3 ML NEB INHALATION SCH ×2 (07:19→11:21)
[2022-10-12 07:34] VITALS: RESP 20; TEMP 97.6
[2022-10-12] MEDS: ENOXAPARIN 40 MG/0.4 ML SYRINGE SQ SCH (07:47)
[2022-10-12] MEDS: NICOTINE 14MG/24HR PATCH TRANSDERM SCH (07:48)
[2022-10-12] MEDS: PYRIDOXINE 50 MG TAB PO SCH (07:48)
[2022-10-12] MEDS: FOLIC ACID 1 MG TAB PO SCH (07:48)
[2022-10-12] MEDS: MULTIVITAMINS, THERA 1 EACH TAB PO SCH (07:48)
[2022-10-12] MEDS: PANTOPRAZOLE 40 MG TABLET PO SCH (07:48)
[2022-10-12] MEDS: FAMOTIDINE 20 MG TAB PO SCH (07:48)
[2022-10-12] MEDS: THIAMINE 100 MG TAB PO SCH (07:48)
--- NOTE | 2022-10-12 08:09 | P.PN ---
Subjective Progress Note Date: 10/11/22 Principal diagnosis: Abdominal wound dehiscence with a positive culture Patient is a 62-year-old female who is status post right and left colectomy completed on 09/11/2022 subsequent the presenting to the hospital with abdominal wound dehiscence CT abdomen and pelvis did not show any abscess did have significant dilatation of the rectum for the patient did have a rectal tube which was discontinued on 10/07/2022, patient also have a abdominal wound dehiscence with local culture grew Enterobacter. On today's evaluation that is 10/11/2022, the patient remains to be afebrile, the patient denies any chest pain shortness of breath or cough , the patient abdominal pain has decreased in intensity, no nausea no vomiting and the patient is feeling better Objective - Vital Signs Vital signs: Vital Signs Temp 97.7 F 10/11/22 12:15 Pulse 80 10/11/22 12:15 Resp 18 10/11/22 12:15 BP 118/75 10/11/22 12:15 Pulse Ox 96 10/11/22 12:15 FiO2 Intake & Output 10/10/22 10/11/22 10/11/22 18:59 06:59 18:59 Intake Total 205 400 Output Total 300 200 Balance -95 400 -200 Intake: Intake, IV Titration 25 Amount Piperacillin-Tazobactam 3 25 .375 gm In Sodium Chloride 0.9% 100 ml @ 25 mls/hr IVPB Q8H [facility] Rx#: [id number] Oral 180 400 Output: Stool 200 Urine/Stool Mix 300 Other: Voiding Method Diaper Diaper Diaper # Voids 1 1 1 - Exam GENERAL DESCRIPTION: Middle-aged female lying in bed in no distress RESPIRATORY SYSTEM: Unlabored breathing , decreased breath sounds at bases HEART: S1 S2 regular rate and rhythm , ABDOMEN: Soft , midline abdominal wound is currently dressed no drainage, no tenderness EXTREMITIES: No edema feet - Labs CBC & Chem 7: 10/07/22 06:53 10/10/22 06:52 Labs: Microbiology - Last 24 Hours (Table) 10/04/22 15:00 Blood Culture - Final Blood No Growth after 144 hours 10/04/22 14:43 Blood Culture - Final Blood No Growth after 144 hours Assessment and Plan (1) Dehiscence of incision Current Visit: Yes Status: Acute Code(s): T81.31XA - DISRUPTION OF EXTERNAL OPERATION (SURGICAL) WOUND, NEC, INIT SNOMED Code(s): 51467595 Plan: 1patient with abdominal wound dehiscence in this patient for recently did have a right and left colectomy along with colostomy presenting with abdominal wound dehiscence cultures are currently growing Enterobacter however the patient not running any fever or any elevated white count CT abdominal pelvis did not show any evidence of abdominal wall cellulitis or abscess questionably superficial infection versus colonization. 2patient has shown clinical improvement and is currently being treated with Zosyn which will be continued while inpatient and short course of oral Cipro on discharge. Time with Patient: Less than 30
[2022-10-12 12:44] VITALS: BP 104/68; PULSE 78
--- NOTE | 2022-10-12 13:34 | P.DS ---
Providers Date of admission: 10/04/22 18:19 Expected date of discharge: 10/12/22 Attending physician: Jj Worthington Consults: 10/04/22 17:43 Consult Physician Routine Consulting Provider: Cayden Green Consult Reason/Comments: medical management Do you want consulting provider notified?: Yes 10/07/22 14:37 Consult Physician Routine Consulting Provider: Beckie Rosas Consult Reason/Comments: Abdominal infection Do you want consulting provider notified?: Yes Primary care physician: [facility] Hospital Course: Discharge diagnosis 1. Abdominal incision dehiscence 2. Patient status post right and left colectomy with ostomy placement on 09/11/2022 for severe ileus and pseudoobstruction 3. Dilated rectum with air and liquid stool status post evacuation of stool and air 4. Hypokalemia resolved Hospital course This is a 62-year-old female who presented with concerns for postop incisional infection. She was found to have abdominal incision dehiscence. Computed tomography scan had showed mildly dilated rectum with fluid level consistent with ileus or mechanical bowel traction at the rectum. No evidence of active bleeding. Patient's incision did grow enterobacter cloacae. Seen by infectious disease. The recommending Cipro for one week. Patient had dilated rectum noted on CAT scan. She had evacuation of the air and stool completed manually. She also had an FMS placed as well as a Otero catheter placed to help with evacuation of stool and air. This process was successful. Patient is tolerating diet. Her ostomy is functioning. She is afebrile. Her area of dehiscence is smaller in size. She is stable for discharge. Please refer to chart for any further details. Physician Licensing Registration Examiner note has been reviewed by physician. Signing provider agrees with the documented findings, assessment, and plan of care. Patient Condition at Discharge: Stable Plan - Discharge Summary Discharge Rx Participant: No New Discharge Prescriptions: New Nicotine 14Mg/24Hr Patch [Habitrol] 1 patch TRANSDERM DAILY #14 patch Continue Ipratropium-Albuterol Nebulize [Duoneb 0.5 mg-3 mg/3 ml Soln] 3 ml INHALATION RT-QID PRN each PRN Reason: Shortness Of Breath Or Wheezing Levothyroxine Sodium [Euthyrox] 75 mcg PO DAILY #30 tab Multivitamins, Thera [Multivitamin (formulary)] 1 tab PO DAILY #30 tablet Famotidine [Pepcid] 20 mg PO BID 30 Days #60 tablet Thiamine [Vitamin B-1] 100 mg PO DAILY #30 tablet Omeprazole [PriLOSEC] 20 mg PO DAILY Ipratropium-Albuterol Nebulize [Duoneb 0.5 mg-3 mg/3 ml Soln] 3 ml INHALATION RT-TID HYDROcodone/APAP 5-325MG [[place] 5-325] 1 tab PO Q6HR PRN PRN Reason: Pain (4-6) Acetaminophen Tab [Tylenol] 325 mg PO Q6HR PRN tab PRN Reason: Fever and/ or Pain (1-3) Pyridoxine [Vitamin B-6] 50 mg PO DAILY Calcium Carb-Vit D 500Mg-5Mcg [Oscal 500+D 5 Mcg (200 Iu)] 1 tab PO TID Folic Acid 2 mg PO DAILY Discontinued Heparin Sodium,Porcine [Heparin Sodium] 5,000 unit SQ Q12HR #60 each Simethicone 40 mg/0.6 ml Drops [Mylicon Drops] 80 mg PO QID ml Cephalexin [Keflex] 500 mg PO QID #36 cap Nystatin [Nystatin Oral Susp] 5 unit PO QID #240 ml Discharge Medication List Acetaminophen Tab [Tylenol] 325 mg PO Q6HR PRN tab 09/17/22 [Rx] Famotidine [Pepcid] 20 mg PO BID 30 Days #60 tablet 09/17/22 [Rx] Ipratropium-Albuterol Nebulize [Duoneb 0.5 mg-3 mg/3 ml Soln] 3 ml INHALATION RT-QID PRN each 09/17/22 [Rx] Levothyroxine Sodium [Euthyrox] 75 mcg PO DAILY #30 tab 09/17/22 [Rx] Multivitamins, Thera [Multivitamin (formulary)] 1 tab PO DAILY #30 tablet 09/17/22 [Rx] Thiamine [Vitamin B-1] 100 mg PO DAILY #30 tablet 09/17/22 [Rx] Calcium Carb-Vit D 500Mg-5Mcg [Oscal 500+D 5 Mcg (200 Iu)] 1 tab PO TID 10/04/22 [History] Folic Acid 2 mg PO DAILY 10/04/22 [History] HYDROcodone/APAP 5-325MG [[place] 5-325] 1 tab PO Q6HR PRN 10/04/22 [History] Ipratropium-Albuterol Nebulize [Duoneb 0.5 mg-3 mg/3 ml Soln] 3 ml INHALATION RT-TID 10/04/22 [History] Omeprazole [PriLOSEC] 20 mg PO DAILY 10/04/22 [History] Pyridoxine [Vitamin B-6] 50 mg PO DAILY 10/04/22 [History] Nicotine 14Mg/24Hr Patch [Habitrol] 1 patch TRANSDERM DAILY #14 patch 10/12/22 [Rx] Follow up Appointment(s)/Referral(s): Josue Engle DO [Primary Care Provider] - 1-2 days [facility], [NON-STAFF] - 1 Week Jj Worthington MD [STAFF PHYSICIAN] - 1 Week Activity/Diet/Wound Care/Special Instructions: Continue local wound care to incision with a wet-to-dry dressing changes daily Discharge Disposition: TRANSFER TO SNF/ECF
--- NOTE | 2022-10-12 17:42 | P.PN ---
Progress Note - Text Progress Note Date: 10/12/22 - Chief Complaint Surgical incision infection Hospital course This is a 62-year-old patient, who had severe ileus of right and left: And underwent right and left colectomy with end colostomy by Dr. Worthington on 09/21/2022. Patient was discharged from hospital on September 17. According to the patient patient's abdomen is remained uncomfortable. She has noticed drainage from incision site versus. Denies any obvious fever and chills. Does feel tired. Decreased appetite. Colostomy has been functioning. She does not really follow up with her family doctor. She started having drainage from incision and presented to the ER. Computed to mography scan of the ER of the abdomen was nonspecific. Denies any nausea vomiting. 10/06/2022: Abdominal discomfort still present. Oral intake fair. Gram- negative bacilli growing in the wound. Added IV Zosyn. Continue IV vancomycin. No fever. Has abdominal wound dehiscence with infection. 10/07/2022: Continues his oral intake. Discussed with Dr. Fuller yesterday. Patient had a large amount of air in liquid stool upon rectal exam. Following that the rectal tube was placed. Significant rectal dilatation on computed tomography scan. Does not have much output to the fecal management system today. Continue with antibiotics. No significant pain. 10/08/2022: Tolerating oral diet. Colostomy is working. Pain controlled. Wet-to-dry dressing. Abdominal x-ray yesterday showed extensive retained fecal debris. 10/09/2022: Rectal tube could not be located in the hospital. Dr. Fuller did a rectal exam and large amount of liquid stool and gas was again obtained. The meantime continue current antibiotics. Patient tolerating a diet. No abdominal pain 10/10/2022: As rectal tube could not be found surgeries ordered a Otero catheter placement. Patient tolerating diet. Pain is well controlled. No fever. 10/11/2022: Additional flatus liquid stools obtained with placement of Otero cath in the rectum. Tolerating diet. No abdominal pain. Stool in the colostomy. 10/12/2022: Comfortable. Oral intake fair. No abdominal pain. Cipro for 7 days upon discharge per ID Current medications reviewed Past medical history to include: Hypothyroid, osteomyelitis, COPD, Social history: Lives with her boyfriend. Smokes about half a pack a day. Does use a walker. Family history: Reviewed, noncontributory to presentation Physical examination: VITAL SIGNS: 97.6, 78, 20, 104/68, 96% room air GENERAL: reclining in bed, comfortable EYES: Pupils equal. Conjunctiva normal. HEENT: External appearance of nose and ears normal, oral cavity grossly normal. NECK: JVD not raised; masses not palpable. HEART: First and second heart sounds are normal; no edema. LUNGS: Respiratory rate normal; decreased breath sounds. ABDOMEN: Soft, decreased distention, right-sided tenderness over incision site. The dressing in place Liver spleen not palpable, no masses palpable. Left-sided colostomy fecal management system in place PSYCH: Alert and oriented x3; mood and affect anxiousl. MUSCULOSKELETAL:No Clubbing/cyanosis;muscles-grossly intact INVESTIGATIONS, reviewed in the clinical context: 10/10/2022: Potassium 3.7 creatinine 1.08 10/08/2022: Oh3.5 creatinine 1.05 10/07/2022: White count 4.7 hemoglobin 8.3 platelets 133 progression 3.4 creatinine 1.12 Wound culture: Enterobacter cloacae Procalcitonin: 0.07 White count 5.3 hemoglobin 8.4 platelets 12 sodium 134 potassium 4. 21 creatinine 1.10 Computed tomography scan of the abdomen and pelvis: Nonspecific Assessment and plan: -Acute infection, of the surgical incision with dehiscence: Improving On IV Zosyn. Wound cultures growing Enterobacter cloacae. Local wound care per surgery. Ciprofloxacin 500 twice a day for 7 days per ID for discharge -Large fecal retention in the residual colon with dilatation: Improved Rectal examination [address] Fuller resulted large amount of watery stool and air being passed. Rectal tube not available in the hospital. Otero catheter used for air and liquid stool evacuation -GERD PPI -Hypothyroid Levothyroxin -COPD in a current smoker DuoNeb -Chronic nicotine dependence, cigarette smoker Nicotine patch -Hypoalbuminemia, acute phase reactant. No malnutrition Stable. Discussed with surgery. Probably discharge day. Cipro for 7 days per ID for discharge. Thank you
--- NOTE | 2022-10-12 20:35 | P.PN ---
Subjective Progress Note Date: 10/12/22 Principal diagnosis: Abdominal wound dehiscence with a positive culture Patient is a 62-year-old female who is status post right and left colectomy completed on 09/11/2022 subsequent the presenting to the hospital with abdominal wound dehiscence CT abdomen and pelvis did not show any abscess did have significant dilatation of the rectum for the patient did have a rectal tube which was discontinued on 10/07/2022, patient also have a abdominal wound dehiscence with local culture grew Enterobacter. On today's evaluation that is 10/12/2022, the patient continues to be afebrile, the patient denies any chest pain shortness of breath or cough , the patient abdominal pain has decreased in intensity, the patient denies nausea no vomiting and no diarrhea has been reported by the nursing staff Objective - Vital Signs Vital signs: Vital Signs Temp 97.6 F 10/12/22 07:33 Pulse 73 10/12/22 07:33 Resp 20 10/12/22 07:33 BP 94/55 10/12/22 07:33 Pulse Ox 96 10/12/22 07:33 FiO2 Intake & Output 10/11/22 10/12/22 10/12/22 18:59 06:59 18:59 Intake Total 700 800 120 Output Total 200 Balance 500 800 120 Intake: Intake, IV Titration 700 800 Amount Lactated Ringers 1,000 ml 600 600 @ 50 mls/hr IV .Q20H [facility] Rx#:[id number] Piperacillin-Tazobactam 3 100 200 .375 gm In Sodium Chloride 0.9% 100 ml @ 25 mls/hr IVPB Q8H [facility] Rx#: [id number] Oral 120 Output: Stool 200 Other: Voiding Method Diaper Diaper # Voids 5 2 # Bowel Movements 2 1 - Exam GENERAL DESCRIPTION: Middle-aged female lying in bed in no distress RESPIRATORY SYSTEM: Unlabored breathing , decreased breath sounds at bases HEART: S1 S2 regular rate and rhythm , ABDOMEN: Soft , midline abdominal wound is currently dressed no drainage, no tenderness EXTREMITIES: No edema feet - Labs CBC & Chem 7: 10/07/22 06:53 10/10/22 06:52 Assessment and Plan (1) Dehiscence of incision Status: Acute Code(s): T81.31XA - DISRUPTION OF EXTERNAL OPERATION (SURGICAL) WOUND, NEC, INIT SNOMED Code(s): 02914871 Plan: 1patient with abdominal wound dehiscence in this patient for recently did have a right and left colectomy along with colostomy presenting with abdominal wound dehiscence cultures are currently growing Enterobacter however the patient not running any fever or any elevated white count CT abdominal pelvis did not show any evidence of abdominal wall cellulitis or abscess questionably superficial infection versus colonization. 2patient has shown clinical improvement and will finish therapy with a 7 day course of oral Cipro on discharge discussed with the surgical LEVER TENDER working on discharge. Time with Patient: Less than 30
== END 2022-10-12 16:08 | DRG 863 ==
LOC: EC 13:16 → 5NMEDONC 18:19
PROVIDERS: ADMIT Surgery; ATTEND Surgery
DX: T81.41XA Infection following a procedure, superficial incisional surgical site, initial encounter (principal); T81.31XA Disruption of external operation (surgical) wound, not elsewhere classified, initial encounter; K59.39 Other megacolon; L02.211 Cutaneous abscess of abdominal wall; K29.60 Other gastritis without bleeding; E88.09 Other disorders of plasma-protein metabolism, not elsewhere classified; E03.9 Hypothyroidism, unspecified; F17.210 Nicotine dependence, cigarettes, uncomplicated; J44.9 Chronic obstructive pulmonary disease, unspecified; E87.6 Hypokalemia; K21.9 Gastro-esophageal reflux disease without esophagitis; M19.90 Unspecified osteoarthritis, unspecified site; Z93.3 Colostomy status; Z59.6 Low income; Z90.49 Acquired absence of other specified parts of digestive tract; Z28.310 Unvaccinated for COVID-19; Z71.3 Dietary counseling and surveillance; Z28.21 Immunization not carried out because of patient refusal; Z79.890 Hormone replacement therapy; Z79.899 Other long term (current) drug therapy
CPT/HCPCS: 36415; 74019; 74174; 80048; 80053; 80202; 82565; 83605; 83735; 84100; 84145; 85025; 85610; 85730; 87040; 87070; 87077; 87186; 87205; 96361; 96365; 96366; 99285

== ENCOUNTER 2022-11-02 16:22 | Emergency (ER) | payer OTHER ==
--- NOTE | 2022-11-02 17:33 | ED ---
Recheck HPI - General Chief Complaint: Recheck/Abnormal Lab/Rx Stated Complaint: abd pain Time Seen by Provider: 11/02/22 16:56 Source: patient, RN notes reviewed Mode of arrival: EMS Limitations: no limitations - History of Present Illness Initial Comments: This is a 62-year-old female who presents to the emergency department for a computed tomography scan. Yesterday, the patient had abdominal pain that has since resolved. It was also noticed that she had a sore to the left of her colostomy bag with associated pain. The patient states that this has been present for 2-3 weeks. She has a follow-up appointment with Dr. Gómez tomorrow, and is requesting a computed tomography scan of the abdomen and pelvis before that appointment. The pain has otherwise resolved and she denies any complaints. Denies any fevers, chills, sore throat, cough, dyspnea, chest pain, palpitations, abdominal pain, nausea, vomiting, diarrhea, back pain, or headaches. MD Complaint: other (needs CT scan) - Related Data Home Medications Medication Instructions Recorded Confirmed Calcium Carb-Vit D 500Mg-5Mcg 1 tab PO TID 10/04/22 10/04/22 [Oscal 500+D 5 Mcg (200 Iu)] Folic Acid 2 mg PO DAILY 10/04/22 10/04/22 HYDROcodone/APAP 5-325MG [[place] 1 tab PO Q6HR PRN 10/04/22 10/04/22 5-325] Ipratropium-Albuterol Nebulize 3 ml INHALATION RT-TID 10/04/22 10/04/22 [Duoneb 0.5 mg-3 mg/3 ml Soln] Omeprazole [PriLOSEC] 20 mg PO DAILY 10/04/22 10/04/22 Pyridoxine [Vitamin B-6] 50 mg PO DAILY 10/04/22 10/04/22 Previous Rx's Medication Instructions Recorded Acetaminophen Tab [Tylenol] 325 mg PO Q6HR PRN tab 09/17/22 Famotidine [Pepcid] 20 mg PO BID 30 Days #60 tablet 09/17/22 Ipratropium-Albuterol Nebulize 3 ml INHALATION RT-QID PRN each 09/17/22 [Duoneb 0.5 mg-3 mg/3 ml Soln] Levothyroxine Sodium [Euthyrox] 75 mcg PO DAILY #30 tab 09/17/22 Multivitamins, Thera [Multivitamin 1 tab PO DAILY #30 tablet 09/17/22 (formulary)] Thiamine [Vitamin B-1] 100 mg PO DAILY #30 tablet 09/17/22 Ciprofloxacin HCl [Cipro] 500 mg PO Q12HR 7 Days #14 tab 10/12/22 HYDROcodone/APAP 5-325MG [[place] 1 tab PO Q6HR PRN 3 Days #12 tab 10/12/22 5-325] Nicotine 14Mg/24Hr Patch [Habitrol] 1 patch TRANSDERM DAILY #14 patch 10/12/22 Allergies Allergy/AdvReac Type Severity Reaction Status Date / Time No Known Allergies Allergy Verified 11/02/22 16:33 Review of Systems ROS Statement: Those systems with pertinent positive or pertinent negative responses have been documented in the HPI. ROS Other: All systems not noted in ROS Statement are negative. Past Medical History Past Medical History: Cancer, COPD, Osteoarthritis (OA), Thyroid Disorder History of Any Multi-Drug Resistant Organisms: None Reported Past Surgical History: No Surgical Hx Reported Additional Past Surgical History / Comment(s): Colostomy Past Anesthesia/Blood Transfusion Reactions: No Reported Reaction Past Psychological History: No Psychological Hx Reported Smoking Status: Current every day smoker Past Alcohol Use History: None Reported Past Drug Use History: None Reported - Past Family History Mother History Unknown: Yes General Exam Limitations: no limitations General appearance: alert Head exam: Present: atraumatic, normocephalic, normal inspection Respiratory exam: Present: normal lung sounds bilaterally. Absent: respiratory distress, wheezes, rales, rhonchi, stridor Cardiovascular Exam: Present: regular rate, normal rhythm, normal heart sounds. Absent: systolic murmur, diastolic murmur, rubs, gallop, clicks GI/Abdominal exam: Present: other (Colostomy bag in place. There is a 1 x 1 cm wound just lateral to the colostomy bag. This appears to be erythematous and moist without evidence of any active drainage.) Psychiatric exam: Present: normal affect, normal mood Skin exam: Present: warm, dry, normal color Course Vital Signs 11/02/22 11/02/22 11/02/22 16:26 18:30 19:30 Temperature 97.9 F 98.3 F Pulse Rate 67 62 62 Respiratory 18 18 17 Rate Blood Pressure 92/77 110/72 124/83 O2 Sat by Pulse 98 100 100 Oximetry 11/02/22 20:04 Temperature 98.0 F Pulse Rate 64 Respiratory 17 Rate Blood Pressure 134/73 O2 Sat by Pulse 100 Oximetry Medical Decision Making - Medical Decision Making This is a 62-year-old female who presents to the emergency department for a c omputed tomography scan. Was pt. sent in by a medical professional or institution? @ -[place] Did you speak to anyone other than the patient for history? @ -EMS Did you review nursing and triage notes? @ -Yes, and I agree, it is accurate with regards to the patient's symptoms. Were old charts reviewed? @ -No Differential Diagnosis? @ -Not applicable, patient is asymptomatic and requesting imaging. CT interpreted by me (1pt min.)? @ -Computed tomography scan of the abdomen and pelvis obtained. My interpretation identifies dilation of the rectosigmoid colon and no evidence of free air. What testing was considered but not performed? (CT, X-rays, U/S, labs)? Why? @ -None What meds were considered but not given? Why? @ -None Did you discuss the management of the patient with other professionals? @ -No Did you reconcile home meds? @ -No Was smoking cessation discussed for >3mins.? @ -No Was critical care preformed (if so, how long)? @ -No Were there social determinants of health that impacted care today? How? (Homelessness, low income, unemployed, alcoholism, drug addiction, transportation, low edu. Level, literacy, decrease access to med. care, long-term, rehab)? @ -No Was there de-escalation of care discussed even if they declined? (Discuss DNR or withdrawal of care, Hospice)? @ -No What co-morbidities impacted this encounter? (DM, HTN, Smoking, COPD, CAD, Cancer, CVA, Hep., AIDS, mental health diagnosis, sleep apnea, morbid obesity)? @ -None Was patient admitted / discharged? @ -Discharged. Lab work obtained and found to be nonactionable. Urinalysis negative for signs of infection. Computed tomography scan of the abdomen and pelvis obtained revealing dilation of the rectosigmoid colon and constipation. Patient was discharged home in stable condition and will follow up with Dr. Gómez as scheduled tomorrow morning. Undiagnosed new problem with uncertain prognosis? @ -None Drug Therapy requiring intensive monitoring for toxicity (Heparin, Nitro, Insulin, Cardizem)? @ -None Were any procedures done? @ -None Diagnosis/symptom? @ -Abdominal pain Acute, or Chronic, or Acute on Chronic? @ -Acute Uncomplicated (without systemic symptoms) or Complicated (systemic symptoms)? @ -Uncomplicated Side effects of treatment? @ -Not applicable Exacerbation, Progression, or Severe Exacerbation] @ -Not applicable Poses a threat to life or bodily function? @ -No Return precautions reviewed in depth, the patient is instructed to return to the emergency department with any new, worsening, or concerning symptoms. Patient verbalized understanding. This case was discussed in detail with the attending ED physician, Dr. Teresa. Presentation, findings, and treatment plan discussed in detail as well. - Lab Data Result diagrams: 11/02/22 18:39 11/02/22 18:39 Lab Results 11/02/22 11/02/22 11/02/22 Range/Units 18:39 18:39 18:39 WBC 8.9 (3.8-10.6) k/uL RBC 3.52 L (3.80-5.40) m/uL Hgb 11.1 L (11.4-16.0) gm/dL Hct 34.0 (34.0-46.0) % MCV 96.3 (80.0-100.0) fL MCH 31.6 (25.0-35.0) pg MCHC 32.8 (31.0-37.0) g/dL RDW 13.7 (11.5-15.5) % Plt Count 108 L (150-450) k/uL MPV 8.8 Neutrophils % 64 % Lymphocytes % 16 % Monocytes % 4 % Eosinophils % 13 % Basophils % 1 % Neutrophils # 5.7 (1.3-7.7) k/uL Lymphocytes # 1.5 (1.0-4.8) k/uL Monocytes # 0.4 (0-1.0) k/uL Eosinophils # 1.2 H (0-0.7) k/uL Basophils # 0.0 (0-0.2) k/uL Sodium 141 (137-145) mmol/L Potassium 4.4 (3.5-5.1) mmol/L Chloride 106 (98-107) mmol/L Carbon Dioxide 27 (22-30) mmol/L Anion Gap 8 mmol/L BUN 31 H (7-17) mg/dL Creatinine 0.89 (0.52-1.04) mg/dL Est GFR (CKD-EPI)AfAm 80 (>60 ml/min/1.73 sqM) Est GFR (CKD-EPI)NonAf 69 (>60 ml/min/1.73 sqM) Glucose 97 (74-99) mg/dL Calcium 8.1 L (8.4-10.2) mg/dL Total Bilirubin 0.6 (0.2-1.3) mg/dL AST 42 H (14-36) U/L ALT 25 (4-34) U/L Alkaline Phosphatase 73 (38-126) U/L Total Protein 6.8 (6.3-8.2) g/dL Albumin 3.7 (3.5-5.0) g/dL Amylase 88 (30-110) U/L Lipase 197 (23-300) U/L Urine Color Yellow Urine Appearance Clear (Clear) Urine pH 5.5 (5.0-8.0) Ur Specific [place] 1.014 (1.001-1.035) Urine Protein Negative (Negative) Urine Glucose (UA) Negative (Negative) Urine Ketones Negative (Negative) Urine Blood Negative (Negative) Urine Nitrite Negative (Negative) Urine Bilirubin Negative (Negative) Urine Urobilinogen <2.0 (<2.0) mg/dL Ur Leukocyte Esterase Moderate H (Negative) Urine RBC 1 (0-5) /hpf Urine WBC 5 (0-5) /hpf Ur Squamous Epith Cells 2 (0-4) /hpf Urine Mucus Rare H (None) /hpf - Radiology Data Radiology results: report reviewed, image reviewed Disposition Clinical Impression: Abdominal pain Disposition: HOME SELF-CARE Instructions (If sedation given, give patient instructions): Abdominal Pain (ED) Additional Instructions: Return to the emergency department with any new, worsening, or concerning symptoms. Follow up with Dr. Gómez tomorrow as scheduled. Is patient prescribed a controlled substance at d/c from ED?: No Referrals: Josue Engle DO [Primary Care Provider] - 1-2 days
--- NOTE | 2022-11-02 17:50 | CT ---
EXAMINATION TYPE: CT abdomen pelvis wo con DATE OF EXAM: 11/02/2022 COMPARISON: 09/24/2022 HISTORY: LLQ pain CT DLP: 375 mGycm Automated exposure control for dose reduction was used. Images obtained from the diaphragm to the floor of the pelvis with no contrast. There is some coarse interstitial and linear density at the lung bases. Heart is fairly normal in siz e. No pericardial effusion. No pleural effusion. There is a single calcified gallstone. Liver is inta ct. The bile ducts are not dilated. Spleen is intact. No pancreatic mass. There is no adrenal mass. Kidneys have normal size. No hydronephrosis. The bladder distends smoothly. Uterus is anteverted. There is a markedly dilated rectosigmoid colon with fluid level and wall thickening. Sigmoid colon me asures up to 10.5 cm. There is ostomy in the left lower quadrant. The lumbar vertebrae have normal al ignment. There is degenerative spur formation and mild disc space narrowing. No lumbar compression fr acture. There is hypertrophic moderate osteoarthritis left hip joint. Pelvic ring is intact. No evidence of free air. There is retained fecal material throughout the large bowel. No evidence of free air. No ascites. There is posterior endplate spur formation at L2-3 with moderate bony spinal stenosis. IMPRESSION: Dilated rectosigmoid colon which is slightly worse than last exam with fluid level. Constipation. No free air. Patchy scarring and atelectasis at the lung bases bilaterally. No change.
[2022-11-02 18:52] LABS: Basophils % (A) 1 %; Eosinophils # (A) 1.2 k/uL (0-0.7); Eosinophils % (A) 13 %; HGB 11.1 gm/dL (11.4-16.0); Lymphocytes # (A) 1.5 k/uL (1.0-4.8); Lymphocytes % (A) 16 %; MCH 31.6 pg (25.0-35.0); MCHC 32.8 g/dL (31.0-37.0); MCV 96.3 fL (80.0-100.0); Mean Platelet Volume 8.8; Monocytes # (A) 0.4 k/uL (0-1.0); Monocytes % (A) 4 %; Neutrophils # (A) 5.7 k/uL (1.3-7.7); Neutrophils % (A) 64 %; Platelet Count 108 k/uL (150-450); RBC 3.52 m/uL (3.80-5.40); RDW 13.7 % (11.5-15.5); WBC 8.9 k/uL (3.8-10.6)
[2022-11-02 18:57] LABS: Appearance,Urine Clear (Clear); Bilirubin,Urine Negative (Negative); Blood,Urine Negative (Negative); Color,Urine Yellow; Glucose,Urine (UA) Negative (Negative); Ketones,Urine Negative (Negative); Leukocyte Esterase,Urine Moderate (Negative); Mucus,Urine Rare /hpf; Nitrite,Urine Negative (Negative); PH, Urine 5.5 (5.0-8.0); Protein,Urine Negative (Negative); RBC,Urine 1 /hpf (0-5); Specific Gravity,Urine 1.014 (1.001-1.035); Squamous Epithelial Cell,Urine 2 /hpf (0-4); Urobilinogen,Urine <2.0 mg/dL (<2.0); WBC,Urine 5 /hpf (0-5)
[2022-11-02 19:04] LABS: Albumin 3.7 g/dL (3.5-5.0); Calcium 8.1 mg/dL (8.4-10.2); Total Bilirubin 0.6 mg/dL (0.2-1.3); Total Protein 6.8 g/dL (6.3-8.2)
[2022-11-02 19:16] LABS: Potassium 4.4 mmol/L (3.5-5.1)
[2022-11-02 20:04] VITALS: BP 134/73; PULSE 64; RESP 17; TEMP 98
== END 2022-11-02 20:30 | disposition home or self-care (01) ==
LOC: EC 16:22
DX: R10.9 Unspecified abdominal pain (principal); K59.00 Constipation, unspecified; J98.4 Other disorders of lung; M48.061 Spinal stenosis, lumbar region without neurogenic claudication; J44.9 Chronic obstructive pulmonary disease, unspecified; M19.90 Unspecified osteoarthritis, unspecified site; F17.200 Nicotine dependence, unspecified, uncomplicated; Z79.1 Long term (current) use of non-steroidal anti-inflammatories (NSAID); Z79.51 Long term (current) use of inhaled steroids
CPT/HCPCS: 36415; 74176; 80053; 81001; 82150; 83690; 85025; 99285

== ENCOUNTER → 2022-12-17 | Outpatient (CLI) | payer OTHER ==
--- NOTE | 2022-12-17 09:03 | CT ---
EXAMINATION TYPE: CT abdomen w con DATE OF EXAM: 12/17/2022 COMPARISON: Prior CT November 02, 2022 and older studies HISTORY: recurrent infection post op CT DLP: 348.2 mGycm Automated exposure control for dose reduction was used. TECHNIQUE: Helical acquisition of images was performed from the lung bases through the top of iliac crest to include entire abdomen. CONTRAST: Performed with Oral Contrast and with IV Contrast, patient injected with 100 mL of Isovue 300. FINDINGS: LUNG BASES: Mild to moderate bibasilar parenchymal scarring is redemonstrated. Persistent coronary ar santiago stent or calcification in the RCA distribution. LIVER/GB: Subcentimeter calcification in the right hepatic dome is redemonstrated presumably benign. Intraluminal tiny dependent gallstone redemonstrated. Stable mild hepatomegaly. PANCREAS: No significant abnormality is seen. SPLEEN: No significant abnormality is seen. ADRENALS: No significant abnormality is seen. KIDNEYS: Roughly 1.0 cm simple appearing thin-walled cyst laterally in the right kidney series 7 imag e 54. No hydronephrosis seen bilaterally. BOWEL: Suboptimal evaluation of bowel as patient has little intra-abdominal fat. No suspicious small bowel dilatation. Mild to moderate fecal prominence throughout the colon greatest distally with left -sided ostomy is redemonstrated. There is partial visualization of dilated sigmoid colon with air-flu id level which is less prominent from most recent prior studies. LYMPH NODES: No significant abnormality is seen. OSSEOUS STRUCTURES: Moderate multilevel spurring in the thoracolumbar spine. Posterior spur disc com plex effaces the anterior thecal sac at L2-L3 level sagittal image 58. FREE AIR: No free air is visualized. OTHER: Moderate peripheral calcified plaque of the aorta extends into branch vessels. IMPRESSION: Persistent mild to moderate colonic stasis or constipation with left-sided colostomy. No bowel obstruction. Partial visualization of dilated sigmoid colon with air-fluid level that appears s lightly less prominent from most recent CTs but is incompletely evaluated on this study. No significa nt new findings are present.
== END | disposition home or self-care (01) ==
LOC: RADCTMAIN 07:38
PROVIDERS: ATTEND Family Medicine
DX: K59.39 Other megacolon (principal); T81.49XS Infection following a procedure, other surgical site, sequela; Z93.3 Colostomy status
CPT/HCPCS: 74160; Q9967

== ENCOUNTER → 2023-01-25 | Outpatient (CLI) | payer OTHER ==
[2023-01-25 15:24] LABS: Basophils # (A) 0.07 X 10*3/uL (0.00-0.10); Basophils % (A) 0.9 %; Eosinophils # (A) 1.67 X 10*3/uL (0.04-0.35); Eosinophils % (A) 20.3 %; HGB 11.6 g/dL (12.0-15.0); Immature Grans, Automated 0.6 %; Lymphocytes # (A) 1.86 X 10*3/uL (0.90-5.00); Lymphocytes % (A) 22.6 %; MCH 29.1 pg (27.0-32.0); MCHC 30.5 g/dL (32.0-37.0); MCV 95.2 fL (80.0-97.0); Mean Platelet Volume 12.1 fL (9.5-12.2); Monocytes # (A) 0.46 X 10*3/uL (0.20-1.00); Monocytes % (A) 5.6 %; NRBC Per 100 WBC 0 /100 WBCS (0.0-0.0); Neutrophils # (A) 4.12 X 10*3/uL (1.80-7.70); Platelet Count 136 X 10*3/uL (140-440); RBC 3.99 X 10*6/uL (4.10-5.20); RDW 14.7 % (11.5-14.5); WBC 8.23 X 10*3/uL (4.50-10.00)
[2023-01-25 15:51] LABS: Anion Gap 11.3 mmol/L (10.00-18.00); Carbon Dioxide 29.2 mmol/L (20.0-27.5); Potassium 4.5 mmol/L (3.5-5.5)
== END | disposition home or self-care (01) ==
LOC: LABPAT 09:45
PROVIDERS: ATTEND Surgery
DX: Z01.818 Encounter for other preprocedural examination (principal); I23.1 Atrial septal defect as current complication following acute myocardial infarction; R94.31 Abnormal electrocardiogram [ECG] [EKG]
CPT/HCPCS: 80051; 85025; 93005

== ENCOUNTER 2023-01-29 07:09 | Inpatient (IN) | payer OTHER ==
[2023-01-26 11:02] VITALS: BMI 20.3
[~2023-01-29 07:09] MED LIST: ACETAMINOPHEN TAB 500 MG TAB PO PRN; DEXAMETHASONE SOD PHOSPHATE 4 MG/ML 1 ML VIAL IV ONE; HEPARIN SODIUM,PORCINE/PF 5,000 UNIT/0.5 ML SYRINGE SQ PRN; HYDROmorphone 0.5 MG/0.5 ML SYRINGE IVP PRN; MIDAZOLAM 2 MG/2 ML VIAL IV PRN; ONDANSETRON 4 MG/2 ML VIAL IVP ONE; SCOPOLAMINE 1 MG/72 HR PATCH TRANSDERM ONE; metroNIDAZOLE-NS PMX 500 MG in SALINE 1 100ML.BAG IVPB PRN
[2023-01-29] MEDS: LACTATED RINGERS 1,000 ML IV SCH (08:07)
[2023-01-29] MEDS ORDERED: MIDAZOLAM 2 MG/2 ML VIAL IVP ONE (08:19)
[2023-01-29] MEDS ORDERED: NALOXONE 0.4 MG/ML 1 ML VIAL IV PRN (08:50)
--- NOTE | 2023-01-29 08:56 | P.ANPRN ---
Procedure Note - Anesthesia - Epidural/Spinal Epidural Continuous Time Out Performed: Yes Date of Procedure: 01/29/23 Procedure Start Time: 08:17 Procedure Stop Time: 08:32 Location of Patient: PreOp Indication: Acute Post-Operative Pain, Requested by Surgeon (Dr Worthington) Sedation Type: Sedate with meaningful contact maintained Preparation: Sterile Dressing Position: Sitting Catheter: Indwelling Needle Guage: 18 Injectate: 1.5% lidocaine and 1 in 200,000 epinephrine test dose given 2cc Narrative: The benefits and risks of the procedure was explained to the patient and informed consent was obtained. After proper positioning, [id number] identified and cleaned with Betadine and iodine solution. 2 mL of 1% lidocaine was thoroughly infiltrated into the above mentioned space after draping the the area. 18-gauge Tuhoy needle was inserted into the space and loss of resistance to air was obtained at 6 cm depth. Next, an epidural catheter was threaded through the needle into this space and negative aspiration for any blood or CSF noted. Test dose was given and no untoward reactions noted. Epidural was secured and taped. Patient tolerated the procedure very well. Blood Aspirated: No Pain Paresthesia on Injection Noted: No Events: Uneventful and Well Tolerated
[2023-01-29] MEDS ORDERED: MIDAZOLAM 2 MG/2 ML VIAL ONE (10:14)
[2023-01-29] MEDS ORDERED: PHENYLEPHRINE-0.9% NACL SYG 1,000 MCG/10 ML SYRINGE ONE (10:14)
[2023-01-29] MEDS ORDERED: LIDOCAINE HCL/PF 20 MG/ML 10 ML AMP ONE (10:14)
[2023-01-29] MEDS ORDERED: ROCURONIUM 10 MG/ML (5 ML VIAL) IV ONE (10:14)
[2023-01-29] MEDS ORDERED: DEXAMETHASONE SOD PHOSPHATE 4 MG/ML 1 ML VIAL ONE (10:14)
[2023-01-29] MEDS ORDERED: PROPOFOL 10 MG/ML 20 ML VIAL IV ONE (10:14)
[2023-01-29] MEDS ORDERED: GLYCOPYRROLATE 0.2 MG/ML 2 ML VIAL ONE (10:14)
[2023-01-29] MEDS ORDERED: fentaNYL (PF) 50 MCG/ML 2 ML AMP ONE (10:14)
[2023-01-29] MEDS ORDERED: LACTATED RINGERS 1,000 ML IV ONE ×3 (11:02→14:54)
--- NOTE | 2023-01-29 12:26 | P.OP ---
Date of Procedure: 01/29/23 Preoperative Diagnosis: History of colonic obstruction Postoperative Diagnosis: History of colonic obstruction Procedure(s) Performed: Exploratory laparotomy Takedown colostomy Takedown of splenic flexure Partial colectomy Repair of incisional hernia Lysis of adhesions Partial omentectomy Anesthesia: ROSALBA Surgeon: Jj Worthington Pathology: other (Colon, omentum) Condition: stable Disposition: PACU Description of Procedure: Patient's placed on the operative table in the supine position. She received general endotracheal tube anesthesia. Her abdomen was prepped and draped usual sterile fashion. She had been placed in dorsal lithotomy position. The skin was incised in midline. There was evidence of incisional hernia. The hernia measured approximately 12 cm in length. Once the fascia was opened there is extensive adhesions. Approximately 20 minutes of operative time used to lyse adhesions. Rectal stump appeared to be dilated. The proximal colon was then transected at the fascia using the GI stapler. The white line of Toldt was divided. And then the splenic flexure was dissected to lengthen the colon. This was done with cautery and sharp and blunt dissection. Care was taken to identify and preserve the spleen. A portion of omentum appeared to be nonviable. This was transected with the Enseal device and sent to pathology. This point the proximal colon was opened and the anvil for the 29 mm EEA stapler was placed in the colon. And then the colon was transected more proximally with the MARJ stapler. The spike for the a.m. was then driven through the staple line. Using the Enseal device mesentery of the colon was divided in the colon specimen sent to pathology. This point the event marketing assistant placed in the dilator patient anus. Appeared to be a stricture the anus. This was sequentially dilated with finger dilatation and then the 25 and then 29 mm EEA sizer. The 29 mm EEA stapler was then placed in the patient's anus and the spike was driven through the rectal staple line. The antrum was then cut to to the stapler. And then stapled and closed and fi red. The stapler was then withdrawn. 2 intact tissue rings were seen in the stapler. Next using a hydropic the proximal colon was occluded and then the cyst rectum was insufflated air via a rigid sigmoidoscope. There is no evidence of extravasation of air stapler. The abdomen was areas of bleeding seen. The colostomy site fascia was then closed with #1 Abundio fix suture. And then the fascia in the midline was closed with looped #1 PDS suture. Skin was closed elida. The colostomy excised with cautery. The skin was stapled. A prevena wound system was then placed on the skin incision. Patient top she will was sent to recovery room in stable condition.
[2023-01-29] MEDS ORDERED: ALBUMIN HUMAN 5% 500 ML in EMPTY BAG 1 BAG IVPB ONE (12:46)
[2023-01-29] MEDS ORDERED: ALBUMIN HUMAN 5% (12.5gm) 250 ML BOTTLE IVPB ONE ×2 (12:56→14:06)
[2023-01-29] MEDS: ROPIVACAINE 250 MG, HYDROMORPHONE (PF) 5 MG in SODIUM CHLORIDE 0.9% 200 ML EPIDURAL PRN (15:12)
[2023-01-29 16:10] LABS: Basophils % (A) 0 %; Eosinophils # (A) 0.1 k/uL (0-0.7); Eosinophils % (A) 1 %; HCT 35.1 % (34.0-46.0); HGB 11.3 gm/dL (11.4-16.0); Lymphocytes # (A) 0.4 k/uL (1.0-4.8); Lymphocytes % (A) 4 %; MCH 29.5 pg (25.0-35.0); MCHC 32.2 g/dL (31.0-37.0); MCV 91.5 fL (80.0-100.0); Mean Platelet Volume 8.7; Monocytes # (A) 0.3 k/uL (0-1.0); Monocytes % (A) 3 %; Neutrophils # (A) 8.1 k/uL (1.3-7.7); Neutrophils % (A) 92 %; RBC 3.84 m/uL (3.80-5.40); RDW 14.6 % (11.5-15.5); WBC 8.8 k/uL (3.8-10.6)
[2023-01-29] MEDS: HEPARIN SODIUM,PORCINE/PF 5,000 UNIT/0.5 ML SYRINGE SQ SCH (16:11)
[2023-01-29 16:32] LABS: Calcium 8.1 mg/dL (8.4-10.2); Potassium 4.4 mmol/L (3.5-5.1)
[2023-01-29 16:38] LABS: Platelet Count 95 k/uL (150-450)
[2023-01-30] MEDS: HEPARIN SODIUM,PORCINE/PF 5,000 UNIT/0.5 ML SYRINGE SQ SCH ×3 (01:24→16:50)
[2023-01-30] MEDS: LACTATED RINGERS 1,000 ML IV SCH (06:50)
--- NOTE | 2023-01-30 07:50 | P.PN ---
Progress Note - Text Date: 01/30/2023 Time: 7:41 The patient is status post, colostomy reversal, postoperative day number 1. The patient has no complaints of nausea vomiting or headache. The patient does not complain of any lower extremity numbness or weakness. The epidural is running at 5 mL per hour. VAS 0-1-10. The epidural will be maintained and adju sted as needed.
[2023-01-30] MEDS ORDERED: IPRATROPIUM-ALBUTEROL 3 ML NEB INHALATION PRN (07:57)
--- NOTE | 2023-01-30 09:31 | P.PN ---
Progress Note - Text Progress Note Date: 01/30/23 Patient's resting comfortably in her bed. She is postoperative day 1 from reversal colostomy. She has minimal complaints of pain. On exam vital signs are stable. Abdomen is soft. Incisions clean dry intact. Status post reversal colostomy. Patient will continue clear liquid diet.
[2023-01-30] MEDS: MULTIVITAMINS, THERA 1 EACH TAB PO SCH (09:38)
[2023-01-30] MEDS: GABAPENTIN 300 MG CAP PO SCH (09:38)
[2023-01-30] MEDS: PYRIDOXINE 50 MG TAB PO SCH (09:38)
[2023-01-30] MEDS: LACTOBACILLUS ACIDOPH & BULGAR 1 EACH PACKET PO SCH (09:38)
[2023-01-30] MEDS: THIAMINE 100 MG TAB PO SCH (09:38)
[2023-01-30] MEDS: ALVIMOPAN 12 MG CAPSULE PO SCH ×2 (09:38→20:46)
[2023-01-30] MEDS: LEVOTHYROXINE 75 MCG TAB PO SCH (09:45)
[2023-01-30] MEDS: PANTOPRAZOLE 40 MG TABLET PO SCH (09:45)
[2023-01-30] MEDS: IPRATROPIUM-ALBUTEROL 3 ML NEB INHALATION SCH ×2 (12:07→20:52)
--- NOTE | 2023-01-30 22:04 | P.CONS ---
History of Present Illness - Reason for Consult Consult date: 01/30/23 Medical management Requesting physician: Jj Worthington - Chief Complaint Takedown colostomy - History of Present Illness This is a 63-year-old patient, who had severe ileus of right and left: And underwent right and left colectomy with end colostomy by Dr. Worthington on . Patient on January 29/yesterday underwent exploratory laboratory with takedown of colostomy and takedown of splenic flexure with partial colectomy and repair of incisional hernia and lysis of adhesions by Dr. Worthington. Laying in bed this morning has an epidural in place. Wound VAC in place. No nausea vomiting. A bit tired Review of systems: GEN.: Tired EYES: None HEENT: None NECK: None RESPIRATORY: None CARDIOVASCULAR: None GASTROINTESTINAL: As above GENITOURINARY: None MUSCULOSKELETAL: Some joint pains LYMPHATICS: None HEMATOLOGICAL: None PSYCHIATRY: Anxious NEUROLOGICAL: None Past medical history to include: Hypothyroid, osteomyelitis, COPD, left colectomy with end colostomy Social history: Lives with her boyfriend. Smokes about half a pack a day since age 21. Does use a walker. Physical examination: VITAL SIGNS: 97.9, 70, 15, 89/50, 96% room air GENERAL: BMI 20.4, reclining in bed awake tired EYES: Pupils equal. Conjunctiva normal. HEENT: External appearance of nose and ears normal, oral cavity grossly normal. NECK: JVD not raised; masses not palpable. HEART: First and second heart sounds are normal; no edema. LUNGS: Respiratory rate normal; decreased breath sounds. ABDOMEN: Soft, tender Liver spleen not palpable, no masses palpable. Dressing over incision site PSYCH: Alert and oriented x3; mood and affect anxious. MUSCULOSKELETAL:No Clubbing/cyanosis;muscles-grossly intact NEUROLOGICAL: Cranial nerves grossly intact; no facial asymmetry, power and sensation grossly intact. LYMPHATICS: No lymph nodes palpable in the axilla and neck INVESTIGATIONS, reviewed in the clinical context: January 29: White count 8.8 hemoglobin 11.3 platelets 95 potassium 4.4 creatinine 0.94 Previous labs: Platelets 108 in October 2022, 103 in August 2022 Assessment and plan: -Reversal of colostomy. Right and left colectomy with end colostomy in September [address] Worthington Clear liquid diet. Follow with surgery -Postoperative hypotension. Start lactated Ringer's. 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 Follow-up patient -Anemia of chronic disease hemoglobin 11.3 Check iron and B12 Discussed with patient. Questions answered. Thank you Dr. Worthington Past Medical History Past Medical History: Cancer, COPD, GERD/Reflux, Osteoarthritis (OA), Pulmonary Embolus (PE), Thyroid Disorder Additional Past Medical History / Comment(s): CANCER APPENDIX, COLOSTOMY, HEART MURMUR., STATES PE 2017., CERVICAL STENOSIS WITH HERNIATED DISC., ABD WOUND DIHISENCE., RESIDES AT [facility]. History of Any Multi-Drug Resistant Organisms: MRSA Year Discovered:: 11/24/22 MDRO Source:: ABD WOUND Past Surgical History: Section Additional Past Surgical History / Comment(s): RIGHT AND LEFT COLECTOMY WITH COLOSTOMY., COLONOSCOPY; ostomy reversal/hernia repair/colectomy (01/29/23). Past Anesthesia/Blood Transfusion Reactions: No Reported Reaction Past Psychological History: No Psychological Hx Reported Smoking Status: Current every day smoker Past Alcohol Use History: None Reported Additional Past Alcohol Use History / Comment(s): SMOKES 1/2 PPD, STARTED SMOKING AGE 21. Past Drug Use History: None Reported - Past Family History Mother History Unknown: Yes Family Medical History: No Reported History Medications and Allergies Home Medications Medication Instructions Recorded Confirmed Type Levothyroxine Sodium [Euthyrox] 75 mcg PO DAILY #30 tab 09/17/22 01/29/23 Rx Multivitamins, Thera [Multivitamin 1 tab PO DAILY #30 tablet 09/17/22 01/29/23 Rx (formulary)] Thiamine [Vitamin B-1] 100 mg PO DAILY #30 tablet 09/17/22 01/29/23 Rx Ipratropium-Albuterol Nebulize 3 ml INHALATION TID 10/04/22 01/29/23 History [Duoneb 0.5 mg-3 mg/3 ml Soln] Omeprazole [PriLOSEC] 20 mg PO DAILY 10/04/22 01/29/23 History HYDROcodone/APAP 5-325MG [[place] 1 tab PO Q6HR PRN 3 Days #12 tab 10/12/22 01/29/23 Rx 5-325] Acetaminophen Tab [Tylenol] 325 mg PO Q6HR PRN 01/26/23 01/29/23 History Calcium Carbonate/Vitamin D3 1 each PO DAILY 01/26/23 01/29/23 History [Calcium 600 mg-Vit D3 5 mcg (200 unit)] Cholecalciferol [Vitamin D3 (25 25 mcg PO DAILY 01/26/23 01/29/23 History Mcg = 1000 Iu)] Docusate [Colace] 100 mg PO BID 01/26/23 01/29/23 History Folic Acid 0.16 mg PO DAILY 01/26/23 01/29/23 History Lactobacillus Acidophilus 1 each PO DAILY 01/26/23 01/29/23 History [Acidophilus] Pyridoxine HCl (Vitamin B6) 100 mg PO DAILY 01/26/23 01/29/23 History [Vitamin B-6] Gabapentin 300 mg PO DAILY 01/29/23 01/29/23 History Ipratropium-Albuterol Nebulize 3 ml INHALATION Q8H PRN 01/29/23 01/29/23 History [Duoneb 0.5 mg-3 mg/3 ml Soln] Neomycin Sulfate 1,000 mg PO TID 01/29/23 01/29/23 History metroNIDAZOLE [Flagyl] 1,000 mg PO TID 01/29/23 01/29/23 History Allergies Allergy/AdvReac Type Severity Reaction Status Date / Time No Known Allergies Allergy Verified 01/29/23 07:48 Physical Exam Vitals: Vital Signs Temp Pulse Pulse Resp BP Pulse Ox 01/30/23 00:34 98.2 F 64 18 92/54 95 01/29/23 19:26 97.8 F 59 L 18 94/57 100 01/29/23 17:06 80 109/67 100 01/29/23 16:51 72 115/68 100 01/29/23 16:37 67 121/65 100 01/29/23 16:22 69 113/68 100 01/29/23 16:06 65 114/66 100 01/29/23 15:52 66 118/69 100 01/29/23 15:36 68 101/79 99 01/29/23 15:22 67 128/70 100 01/29/23 15:07 70 130/61 94 L 01/29/23 14:45 62 16 128/59 100 01/29/23 14:30 63 16 108/63 100 01/29/23 14:15 61 16 99/57 100 01/29/23 14:00 59 L 16 100/59 100 01/29/23 13:45 62 16 105/59 100 01/29/23 13:30 62 16 111/65 100 01/29/23 13:15 59 L 16 108/58 100 01/29/23 13:00 60 16 100/58 100 01/29/23 12:50 62 16 90/54 99 01/29/23 12:45 63 16 92/56 100 01/29/23 12:30 97.3 F L 64 16 95/58 100 01/29/23 10:03 50 L 14 98/53 100 01/29/23 09:58 50 L 14 83/55 100 01/29/23 08:28 65 16 95/50 100 Intake and Output 01/29/23 01/30/23 01/30/23 22:59 06:59 14:59 Intake Total 1.4 Output Total 325 Balance 1.4 -325 Intake: Intake, IV Titration 1.4 Amount Ropivacaine 250 mg 1.4 Hydromorphone (Pf) 5 mg In Sodium Chloride 0.9% 200 ml @ Per Protocol EPIDURAL .Q0M PRN Rx#: [id number] Output: Urine 325 Other: Voiding Method Indwelling Catheter Results CBC & Chem 7: 01/29/23 15:50 01/29/23 15:50 Labs: Abnormal Lab Results - Last 24 Hours (Table) 01/29/23 01/29/23 Range/Units 15:50 15:50 Hgb 11.3 L (11.4-16.0) gm/dL Plt Count 95 L (150-450) k/uL Neutrophils # 8.1 H (1.3-7.7) k/uL Lymphocytes # 0.4 L (1.0-4.8) k/uL BUN 25 H (7-17) mg/dL Glucose 124 H (74-99) mg/dL Calcium 8.1 L (8.4-10.2) mg/dL
[2023-01-31] MEDS: LACTATED RINGERS 1,000 ML IV SCH ×4 (00:49→20:47)
[2023-01-31] MEDS: HEPARIN SODIUM,PORCINE/PF 5,000 UNIT/0.5 ML SYRINGE SQ SCH ×3 (00:49→15:56)
[2023-01-31] MEDS: PANTOPRAZOLE 40 MG TABLET PO SCH (06:39)
[2023-01-31] MEDS: LEVOTHYROXINE 75 MCG TAB PO SCH (06:39)
[2023-01-31 07:05] LABS: Basophils % (A) 0 %; Eosinophils # (A) 0.1 k/uL (0-0.7); Eosinophils % (A) 1 %; HCT 24.9 % (34.0-46.0); Lymphocytes # (A) 1.1 k/uL (1.0-4.8); Lymphocytes % (A) 15 %; MCH 28.7 pg (25.0-35.0); MCHC 32.1 g/dL (31.0-37.0); MCV 89.4 fL (80.0-100.0); Mean Platelet Volume 9.5; Monocytes # (A) 0.3 k/uL (0-1.0); Monocytes % (A) 4 %; Neutrophils # (A) 5.7 k/uL (1.3-7.7); Neutrophils % (A) 78 %; Platelet Count 103 k/uL (150-450); RBC 2.78 m/uL (3.80-5.40); RDW 15.3 % (11.5-15.5); WBC 7.3 k/uL (3.8-10.6)
[2023-01-31] MEDS: GABAPENTIN 300 MG CAP PO SCH (08:58)
[2023-01-31] MEDS: THIAMINE 100 MG TAB PO SCH (08:59)
[2023-01-31] MEDS: MULTIVITAMINS, THERA 1 EACH TAB PO SCH (08:59)
[2023-01-31] MEDS: PYRIDOXINE 50 MG TAB PO SCH (08:59)
[2023-01-31] MEDS: LACTOBACILLUS ACIDOPH & BULGAR 1 EACH PACKET PO SCH (08:59)
[2023-01-31] MEDS: ALVIMOPAN 12 MG CAPSULE PO SCH ×2 (08:59→20:46)
--- NOTE | 2023-01-31 08:59 | P.PN ---
Progress Note - Text Date: 01/31/2023 Time: 08:42 The patient is status post colostomy reversal, postoperative day number 2. The patient has no complaints of nausea vomiting or headache. The patient does not complain of any lower extremity numbness or weakness. The epidural is running at 5 mL per hour. VAS 0-1-10. The epidural will be maintained and adju sted as needed.
[2023-01-31] MEDS: IPRATROPIUM-ALBUTEROL 3 ML NEB INHALATION SCH ×3 (10:16→22:07)
[2023-01-31 10:20] LABS: % Iron Saturation 9.98 (12.00-45.00)
[2023-01-31] MEDS ORDERED: LACTATED RINGERS 1,000 ML IV ONE (10:30)
[2023-01-31] MEDS: ROPIVACAINE 250 MG, HYDROMORPHONE (PF) 5 MG in SODIUM CHLORIDE 0.9% 200 ML EPIDURAL PRN (11:19)
--- NOTE | 2023-01-31 11:21 | P.PN ---
Progress Note - Text Progress Note Date: 01/31/23 The patient's resting comfortably in her bed. She denies any significant abdominal pain. She's not had any flatus or bowel movements. On exam vital signs appear stable. Abdomen soft incision is clean dry intact. Wound care system was in place. Status post reversal colostomy. Patient will continue supportive care. We will advance her diet once she has flatus or bowel movement.
--- NOTE | 2023-01-31 19:02 | P.PN ---
Progress Note - Text Progress Note Date: 01/31/23 - Chief Complaint Takedown colostomy Hospital course: This is a 63-year-old patient, who had severe ileus of right and left: And underwent right and left colectomy with end colostomy by Dr. Worthington on 09/21/2022. Patient on January 29/yesterday underwent exploratory laboratory with takedown of colostomy and takedown of splenic flexure with partial colectomy and repair of incisional hernia and lysis of adhesions by Dr. Worthington. Laying in bed this morning has an epidural in place. Wound VAC in place. No nausea vomiting. A bit tired January 31: Patient has not passed any flatus or BM. Pain is controlled. Provena wound VAC in place. Some serosanguineous output. Reclining in bed. Epidural in place. Patient has dropped her hemoglobin to 8. Hypotensive. Despite IV fluids. We will transfuse unit of blood. Active Medications Albuterol/Ipratropium (Ipratropium-Albuterol 3 Ml Neb) 3 ml INHALATION RT-Q8H PRN PRN Reason: Wheezing Albuterol/Ipratropium (Ipratropium-Albuterol 3 Ml Neb) 3 ml INHALATION RT-TID [facility] Last Admin: 01/31/23 12:55 Dose: Not Given Alvimopan (Alvimopan 12 Mg Capsule) 12 mg PO BID [facility] Stop: 02/05/23 21:01 Last Admin: 01/31/23 08:59 Dose: 12 mg Gabapentin (Gabapentin 300 Mg Cap) 300 mg PO DAILY [facility] Last Admin: 01/31/23 08:58 Dose: 300 mg Heparin Sodium (Porcine) (Heparin Sodium,Porcine/Pf 5,000 Unit/0.5 Ml Syringe) 5,000 unit SQ Q8HR [facility] Last Admin: 01/31/23 15:56 Dose: 5,000 unit Ropivacaine 250 mg/Hydromorphone HCl 5 mg/ Sodium Chloride 250 mls @ 0 mls/hr EPIDURAL .Q0M PRN; Protocol PRN Reason: Pain Control Last Admin: 01/31/23 11:19 Dose: 5 mls/hr Lactated Ringer's (Lactated Ringers) 1,000 mls @ 125 mls/hr IV .Q8H [facility] Last Admin: 01/31/23 09:40 Dose: 125 mls/hr Lactobacillus Acidoph/Bulgaricus (Lactobacillus Acidoph & Bulgar 1 Each Packet) 1 each PO DAILY [facility] Last Admin: 01/31/23 08:59 Dose: 1 each Levothyroxine Sodium (Levothyroxine 75 Mcg Tab) 75 mcg PO DAILY@0630 [facility] Last Admin: 01/31/23 06:39 Dose: 75 mcg Multivitamins (Multivitamins, Thera 1 Each Tab) 1 each PO DAILY [facility] Last Admin: 01/31/23 08:59 Dose: 1 each Naloxone HCl (Naloxone 0.4 Mg/Ml 1 Ml Vial) 0.2 mg IV Q2M PRN PRN Reason: Opioid Reversal Ondansetron HCl (Ondansetron 4 Mg/2 Ml Vial) 4 mg IVP Q8HR PRN PRN Reason: Nausea And Vomiting Pantoprazole Sodium (Pantoprazole 40 Mg Tablet) 40 mg PO AC-BRKFST [facility] Last Admin: 01/31/23 06:39 Dose: 40 mg Pyridoxine HCl (Pyridoxine 50 Mg Tab) 100 mg PO DAILY [facility] Last Admin: 01/31/23 08:59 Dose: 100 mg Thiamine HCl (Thiamine 100 Mg Tab) 100 mg PO DAILY [facility] Last Admin: 01/31/23 08:59 Dose: 100 mg Past medical history to include: Hypothyroid, osteomyelitis, COPD, left colectomy with end colostomy Social history: Lives with her boyfriend. Smokes about half a pack a day since age 21. Does use a walker. Physical examination: VITAL SIGNS: 98.8, 66, 15, 92/55, 97% room air GENERAL: BMI 20.4, reclining in bed awake tired EYES: Pupils equal. Conjunctiva normal. HEENT: External appearance of nose and ears normal, oral cavity grossly normal. NECK: JVD not raised; masses not palpable. HEART: First and second heart sounds are normal; no edema. LUNGS: Respiratory rate normal; decreased breath sounds. ABDOMEN: Soft, tender Liver spleen not palpable, no masses palpable. . Provena wound VAC PSYCH: Alert and oriented x3; mood and affect anxious. MUSCULOSKELETAL:No Clubbing/cyanosis;muscles-grossly intact INVESTIGATIONS, reviewed in the clinical context: January 31: WBC 7.3 hemoglobin 8 platelets 103 121 TIBC 211% saturation 9.98 transferred 151 B12 516 folate-40 January 29: White count 8.8 hemoglobin 11.3 platelets 95 potassium 4.4 creatinine 0.94 Previous labs: Platelets 108 in October 2022, 103 in August 2022 Assessment and plan: -Reversal of colostomy. Right and left colectomy with end colostomy in September [address] Worthington Clear liquid diet. Follow with surgery -Acute postprocedure blood loss anemia, expected from surgery causing hypotension Transfuse 1 unit of blood -Postoperative hypotension.: Slow to respond lactated Ringer's. 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 Follow-up patient -Anemia of chronic disease hemoglobin 11.3 Check iron and B12 Discussed with patient. Questions answered. Thank you Dr. Worthington Hypertension. Troponin hemoglobin. Transfuse 1 unit PRBC. Discussed with patient.
[2023-02-01] MEDS: HEPARIN SODIUM,PORCINE/PF 5,000 UNIT/0.5 ML SYRINGE SQ SCH ×4 (01:03→23:45)
--- NOTE | 2023-02-01 06:20 | P.PN ---
Progress Note - Text Date: 02/01/2023 Time: 06:08 The patient is status post colostomy reversal, postoperative day number 3. The patient has no complaints of nausea vomiting or headache. The patient does not complain of any lower extremity numbness or weakness. The epidural is running at 5 mL per hour. VAS 0-10. The epidural will be discontinued this a.m . The nursing staff was informed they can restart the patient's heparin 4 hours or later after catheter removal. Pain medication will be provided to the patient by the service.
[2023-02-01] MEDS: PANTOPRAZOLE 40 MG TABLET PO SCH (06:27)
[2023-02-01] MEDS: LEVOTHYROXINE 75 MCG TAB PO SCH (06:27)
[2023-02-01] MEDS: LACTATED RINGERS 1,000 ML IV SCH ×3 (06:27→21:28)
[2023-02-01] MEDS: IPRATROPIUM-ALBUTEROL 3 ML NEB INHALATION SCH ×3 (08:55→21:40)
[2023-02-01 09:04] LABS: Basophils % (A) 0 %; Eosinophils # (A) 0.1 k/uL (0-0.7); Eosinophils % (A) 1 %; HCT 31.6 % (34.0-46.0); HGB 10.6 gm/dL (11.4-16.0); Lymphocytes # (A) 0.8 k/uL (1.0-4.8); Lymphocytes % (A) 10 %; MCH 29.5 pg (25.0-35.0); MCHC 33.7 g/dL (31.0-37.0); MCV 87.5 fL (80.0-100.0); Mean Platelet Volume 9.1; Monocytes # (A) 0.3 k/uL (0-1.0); Monocytes % (A) 3 %; Neutrophils # (A) 7.1 k/uL (1.3-7.7); Neutrophils % (A) 86 %; Platelet Count 100 k/uL (150-450); RBC 3.61 m/uL (3.80-5.40); RDW 15.8 % (11.5-15.5); WBC 8.3 k/uL (3.8-10.6)
[2023-02-01] MEDS: MULTIVITAMINS, THERA 1 EACH TAB PO SCH (09:17)
[2023-02-01] MEDS: THIAMINE 100 MG TAB PO SCH (09:17)
[2023-02-01] MEDS: GABAPENTIN 300 MG CAP PO SCH (09:17)
[2023-02-01] MEDS: PYRIDOXINE 50 MG TAB PO SCH (09:17)
[2023-02-01] MEDS: ALVIMOPAN 12 MG CAPSULE PO SCH ×2 (09:17→21:29)
[2023-02-01] MEDS: LACTOBACILLUS ACIDOPH & BULGAR 1 EACH PACKET PO SCH (09:17)
[2023-02-01] MEDS ORDERED: HYDROcodone/APAP 5-325MG 1 EACH TAB PO PRN (10:44)
--- NOTE | 2023-02-01 12:48 | P.PN ---
Subjective Progress Note Date: 02/01/23 CHIEF COMPLAINT: History of colonic obstruction HISTORY OF PRESENT ILLNESS: Patient is postop day #3 status post exploratory laparotomy, takedown colostomy, takedown splenic flexure, partial colectomy, rep air of incisional hernia, lysis of adhesions and partial omentectomy. Epidural has been discontinued. Otero catheter scheduled be discontinued later today. She did have a small bowel movement. She did receive a fluid bolus yesterday for hypotension. Denies any nausea or vomiting. Afebrile. WBC is 8.3 HCV 10.6 it was 100 PHYSICAL EXAM: VITAL SIGNS: Reviewed. GENERAL: Well-developed in no acute distress. ABDOMEN: Soft.Distended. Mild tenderness palpation around the incision site. Incision site clean dry and intact. ASSESSMENT: 1. History of Colonic obstruction status post colostomy reversal PLAN: -Advance diet to full liquids -Epidural and Otero catheter to be discontinued today -IV Dilaudid and oral [place] for pain control -Encourage patient to ambulate -Encourage patient to use incentive spirometer -GI prophylaxis Protonix and DVT prophylaxis subcu heparin Physician Executor Of Estate note has been reviewed by physician. Signing provider agrees with the documented findings, assessment, and plan of care. Objective - Vital Signs Vital signs: Vital Signs Temp 97.7 F 02/01/23 08:00 Pulse 64 02/01/23 08:00 Resp 16 02/01/23 08:00 BP 95/59 02/01/23 08:00 Pulse Ox 96 02/01/23 08:55 FiO2 Intake & Output 01/31/23 02/01/23 02/01/23 18:59 06:59 18:59 Intake Total 692.494 9031 Output Total 1020 Balance 103.625 2385 Intake: Intake, IV Titration 295.289 5788 Amount Lactated Ringers 1,000 ml 1500 @ 125 mls/hr IV .Q8H [facility] Rx#:[id number] Ropivacaine 250 mg 218.833 Hydromorphone (Pf) 5 mg In Sodium Chloride 0.9% 200 ml @ Per Protocol EPIDURAL .Q0M PRN Rx#: [id number] Oral 500 Blood Product 547 Rc As-1 Unit 310 [id number] Output: Urine 1020 Other: Voiding Method Indwelling Catheter - Labs CBC & Chem 7: 02/01/23 08:14 01/29/23 15:50 Labs: Abnormal Lab Results - Last 24 Hours (Table) 01/31/23 02/01/23 Range/Units 21:18 08:14 RBC 3.61 L (3.80-5.40) m/uL Hgb 10.6 L (11.4-16.0) gm/dL Hct 31.6 L (34.0-46.0) % RDW 15.8 H (11.5-15.5) % Plt Count 100 L (150-450) k/uL Lymphocytes # 0.8 L (1.0-4.8) k/uL Crossmatch See Detail
[2023-02-01] MEDS: HYDROmorphone 1 MG/ML 1 ML SYRINGE IVP PRN (16:00)
--- NOTE | 2023-02-01 18:08 | P.PN ---
Progress Note - Text Progress Note Date: 02/01/23 - Chief Complaint Takedown colostomy Hospital course: This is a 63-year-old patient, who had severe ileus of right and left: And underwent right and left colectomy with end colostomy by Dr. Worthington on 09/21/2022. Patient on January 29/yesterday underwent exploratory laboratory with takedown of colostomy and takedown of splenic flexure with partial colectomy and repair of incisional hernia and lysis of adhesions by Dr. Worthington. Laying in bed this morning has an epidural in place. Wound VAC in place. No nausea vomiting. A bit tired January 31: Patient has not passed any flatus or BM. Pain is controlled. Provena wound VAC in place. Some serosanguineous output. Reclining in bed. Epidural in place. Patient has dropped her hemoglobin to 8. Hypotensive. Despite IV fluids. We will transfuse unit of blood. February 01: Epidural discontinued. Provena discontinued. No flatus. Has been advanced to full liquids. Still rather weak. Hasn't been out of bed. PTOT on the case. Patient received a unit of blood yesterday for hypertension and decreased hemoglobin. Active Medications Hydrocodone Bitart/Acetaminophen (Hydrocodone/Apap 5-325mg 1 Each Tab) 1 each PO Q4HR PRN PRN Reason: Pain Albuterol/Ipratropium (Ipratropium-Albuterol 3 Ml Neb) 3 ml INHALATION RT-Q8H PRN PRN Reason: Wheezing Albuterol/Ipratropium (Ipratropium-Albuterol 3 Ml Neb) 3 ml INHALATION RT-TID [facility] Last Admin: 02/01/23 12:22 Dose: Not Given Alvimopan (Alvimopan 12 Mg Capsule) 12 mg PO BID [facility] Stop: 02/05/23 21:01 Last Admin: 02/01/23 09:17 Dose: 12 mg Gabapentin (Gabapentin 300 Mg Cap) 300 mg PO DAILY [facility] Last Admin: 02/01/23 09:17 Dose: 300 mg Heparin Sodium (Porcine) (Heparin Sodium,Porcine/Pf 5,000 Unit/0.5 Ml Syringe) 5,000 unit SQ Q8HR [facility] Last Admin: 02/01/23 16:00 Dose: 5,000 unit Hydromorphone HCl (Hydromorphone 1 Mg/Ml 1 Ml Syringe) 1 mg IVP Q3HR PRN PRN Reason: Pain Last Admin: 02/01/23 16:00 Dose: 1 mg Ropivacaine 250 mg/Hydromorphone HCl 5 mg/ Sodium Chloride 250 mls @ 0 mls/hr EPIDURAL .Q0M PRN; Protocol PRN Reason: Pain Control Last Admin: 01/31/23 11:19 Dose: 5 mls/hr Lactated Ringer's (Lactated Ringers) 1,000 mls @ 125 mls/hr IV .Q8H [facility] Last Admin: 02/01/23 14:35 Dose: 125 mls/hr Lactobacillus Acidoph/Bulgaricus (Lactobacillus Acidoph & Bulgar 1 Each Packet) 1 each PO DAILY [facility] Last Admin: 02/01/23 09:17 Dose: 1 each Levothyroxine Sodium (Levothyroxine 75 Mcg Tab) 75 mcg PO DAILY@0630 [facility] Last Admin: 02/01/23 06:27 Dose: 75 mcg Multivitamins (Multivitamins, Thera 1 Each Tab) 1 each PO DAILY [facility] Last Admin: 02/01/23 09:17 Dose: 1 each Naloxone HCl (Naloxone 0.4 Mg/Ml 1 Ml Vial) 0.2 mg IV Q2M PRN PRN Reason: Opioid Reversal Ondansetron HCl (Ondansetron 4 Mg/2 Ml Vial) 4 mg IVP Q8HR PRN PRN Reason: Nausea And Vomiting Pantoprazole Sodium (Pantoprazole 40 Mg Tablet) 40 mg PO AC-BRKFST [facility] Last Admin: 02/01/23 06:27 Dose: 40 mg Pyridoxine HCl (Pyridoxine 50 Mg Tab) 100 mg PO DAILY [facility] Last Admin: 02/01/23 09:17 Dose: 100 mg Thiamine HCl (Thiamine 100 Mg Tab) 100 mg PO DAILY [facility] Last Admin: 02/01/23 09:17 Dose: 100 mg Past medical history to include: Hypothyroid, osteomyelitis, COPD, left colectomy with end colostomy Social history: Lives with her boyfriend. Smokes about half a pack a day since age 21. Does use a walker. Physical examination: VITAL SIGNS: 97.9, 64, 16, 99/64, 93% on room air GENERAL: BMI 20.4, reclining in bed awake tired. Epidural discontinued EYES: Pupils equal. Conjunctiva normal. HEENT: External appearance of nose and ears normal, oral cavity grossly normal. NECK: JVD not raised; masses not palpable. HEART: First and second heart sounds are normal; no edema. LUNGS: Respiratory rate normal; decreased breath sounds. ABDOMEN: Soft, tender Liver spleen not palpable, no masses palpable. . Provena wound VAC-discontinued PSYCH: Alert and oriented x3; mood and affect anxious. MUSCULOSKELETAL:No Clubbing/cyanosis;muscles-grossly intact INVESTIGATIONS, reviewed in the clinical context: February 01: White count 8.3 hemoglobin 10.6 platelets 100 January 31: WBC 7.3 hemoglobin 8 platelets 103 121 TIBC 211% saturation 9.98 transferred 151 B12 516 folate-40 January 29: White count 8.8 hemoglobin 11.3 platelets 95 potassium 4.4 creatinine 0.94 Previous labs: Platelets 108 in October 2022, 103 in August 2022 Assessment and plan: -Reversal of colostomy. Right and left colectomy with end colostomy in September [address] Worthington Advanced to full liquid diet. Follow with surgery. No flatus -Acute postprocedure blood loss anemia, expected from surgery causing h ypotension: Better Received 1 unit of blood -Postoperative hypotension.: Better lactated Ringer's. 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 Follow-up patient -Anemia of chronic disease hemoglobin 11.3 Iron deficiency from blood loss. Epidural and Provena discontinued. PTOT. Thank you Dr. Worthington
[2023-02-01] MEDS: ONDANSETRON 4 MG/2 ML VIAL IVP PRN (21:28)
[2023-02-02] MEDS: PANTOPRAZOLE 40 MG TABLET PO SCH (06:08)
[2023-02-02] MEDS: LEVOTHYROXINE 75 MCG TAB PO SCH (06:08)
[2023-02-02] MEDS: LACTATED RINGERS 1,000 ML IV SCH ×2 (06:12→16:30)
[2023-02-02] MEDS: IPRATROPIUM-ALBUTEROL 3 ML NEB INHALATION SCH ×3 (08:27→20:48)
[2023-02-02] MEDS: ONDANSETRON 4 MG/2 ML VIAL IVP PRN (09:24)
[2023-02-02] MEDS: HEPARIN SODIUM,PORCINE/PF 5,000 UNIT/0.5 ML SYRINGE SQ SCH ×2 (09:24→18:11)
[2023-02-02] MEDS: GABAPENTIN 300 MG CAP PO SCH (10:00)
[2023-02-02] MEDS: THIAMINE 100 MG TAB PO SCH (10:00)
[2023-02-02] MEDS: ALVIMOPAN 12 MG CAPSULE PO SCH ×2 (10:00→21:13)
[2023-02-02] MEDS: MULTIVITAMINS, THERA 1 EACH TAB PO SCH (10:00)
[2023-02-02] MEDS: PYRIDOXINE 50 MG TAB PO SCH (10:00)
[2023-02-02] MEDS: LACTOBACILLUS ACIDOPH & BULGAR 1 EACH PACKET PO SCH (10:01)
--- NOTE | 2023-02-02 12:07 | P.PN ---
Subjective Progress Note Date: 02/02/23 CHIEF COMPLAINT: History of colonic obstruction HISTORY OF PRESENT ILLNESS: Patient is postop day #4 status post exploratory laparotomy, takedown colostomy, takedown splenic flexure, partial colectomy, rep air of incisional hernia, lysis of adhesions and partial omentectomy. Patient had vomited 2. Denies any further bowel movements or flatus. Afebrile. PHYSICAL EXAM: VITAL SIGNS: Reviewed. GENERAL: Well-developed in no acute distress. ABDOMEN: Soft.Distended. Mild tenderness palpation around the incision site. Incision site clean dry and intact. ASSESSMENT: 1. History of Colonic obstruction status post colostomy reversal PLAN: -Downgraded diet to clear liquids due to vomiting -Continue antiemetics -Continue pain management -Encourage patient to increase activity -Encourage patient to use incentive spirometer -GI prophylaxis Protonix and DVT prophylaxis subcu heparin Physician Community Development Worker note has been reviewed by physician. Signing provider agrees with the documented findings, assessment, and plan of care. Objective - Vital Signs Vital signs: Vital Signs Temp 97.8 F 02/02/23 07:20 Pulse 66 02/02/23 07:20 Resp 18 02/02/23 07:20 BP 121/76 02/02/23 07:20 Pulse Ox 95 02/02/23 08:27 FiO2 Intake & Output 02/01/23 02/02/23 02/02/23 18:59 06:59 18:59 Intake Total 1500 Output Total 225 Balance 1275 Intake: Intake, IV Titration 1500 Amount Lactated Ringers 1,000 ml 1500 @ 125 mls/hr IV .Q8H [facility] Rx#:[id number] Output: Urine 225 Other: Voiding Method Indwelling Catheter Indwelling Catheter - Labs CBC & Chem 7: 02/01/23 08:14 01/29/23 15:50
[2023-02-02] MEDS: METOCLOPRAMIDE 5 MG/ML 2 ML VIAL IVP SCH (18:11)
--- NOTE | 2023-02-02 20:03 | P.PN ---
Progress Note - Text Progress Note Date: 02/02/23 - Chief Complaint Takedown colostomy Hospital course: This is a 63-year-old patient, who had severe ileus of right and left: And underwent right and left colectomy with end colostomy by Dr. Worthington on 09/21/2022. Patient on January 29/yesterday underwent exploratory laboratory with takedown of colostomy and takedown of splenic flexure with partial colectomy and repair of incisional hernia and lysis of adhesions by Dr. Worthington. Laying in bed this morning has an epidural in place. Wound VAC in place. No nausea vomiting. A bit tired January 31: Patient has not passed any flatus or BM. Pain is controlled. Provena wound VAC in place. Some serosanguineous output. Reclining in bed. Epidural in place. Patient has dropped her hemoglobin to 8. Hypotensive. Despite IV fluids. We will transfuse unit of blood. February 01: Epidural discontinued. Provena discontinued. No flatus. Has been advanced to full liquids. Still rather weak. Hasn't been out of bed. PTOT on the case. Patient received a unit of blood yesterday for hypertension and decreased hemoglobin. February 2: In bed. Did not participate with physical therapist. No flatus. Abdomen distended. Patient did vomit earlier. Diet downgraded by surgery. We will do abdominal x-ray in the morning. Active Medications Hydrocodone Bitart/Acetaminophen (Hydrocodone/Apap 5-325mg 1 Each Tab) 1 each PO Q4HR PRN PRN Reason: Pain Albuterol/Ipratropium (Ipratropium-Albuterol 3 Ml Neb) 3 ml INHALATION RT-Q8H PRN PRN Reason: Wheezing Albuterol/Ipratropium (Ipratropium-Albuterol 3 Ml Neb) 3 ml INHALATION RT-TID [facility] Last Admin: 02/02/23 12:07 Dose: Not Given Alvimopan (Alvimopan 12 Mg Capsule) 12 mg PO BID [facility] Stop: 02/05/23 21:01 Last Admin: 02/02/23 10:00 Dose: 12 mg Gabapentin (Gabapentin 300 Mg Cap) 300 mg PO DAILY [facility] Last Admin: 02/02/23 10:00 Dose: 300 mg Heparin Sodium (Porcine) (Heparin Sodium,Porcine/Pf 5,000 Unit/0.5 Ml Syringe) 5,000 unit SQ Q8HR [facility] Last Admin: 02/02/23 18:11 Dose: 5,000 unit Hydromorphone HCl (Hydromorphone 1 Mg/Ml 1 Ml Syringe) 1 mg IVP Q3HR PRN PRN Reason: Pain Last Admin: 02/01/23 16:00 Dose: 1 mg Ropivacaine 250 mg/Hydromorphone HCl 5 mg/ Sodium Chloride 250 mls @ 0 mls/hr EPIDURAL .Q0M PRN; Protocol PRN Reason: Pain Control Last Admin: 01/31/23 11:19 Dose: 5 mls/hr Lactated Ringer's (Lactated Ringers) 1,000 mls @ 125 mls/hr IV .Q8H [facility] Last Admin: 02/02/23 16:30 Dose: 125 mls/hr Lactobacillus Acidoph/Bulgaricus (Lactobacillus Acidoph & Bulgar 1 Each Packet) 1 each PO DAILY [facility] Last Admin: 02/02/23 10:01 Dose: Not Given Levothyroxine Sodium (Levothyroxine 75 Mcg Tab) 75 mcg PO DAILY@0630 [facility] Last Admin: 02/02/23 06:08 Dose: 75 mcg Metoclopramide HCl (Metoclopramide 5 Mg/Ml 2 Ml Vial) 10 mg IVP Q6HR [facility] Last Admin: 02/02/23 18:11 Dose: 10 mg Multivitamins (Multivitamins, Thera 1 Each Tab) 1 each PO DAILY [facility] Last Admin: 02/02/23 10:00 Dose: 1 each Naloxone HCl (Naloxone 0.4 Mg/Ml 1 Ml Vial) 0.2 mg IV Q2M PRN PRN Reason: Opioid Reversal Ondansetron HCl (Ondansetron 4 Mg/2 Ml Vial) 4 mg IVP Q6HR PRN PRN Reason: Nausea And Vomiting Pantoprazole Sodium (Pantoprazole 40 Mg Tablet) 40 mg PO AC-BRKFST [facility] Last Admin: 02/02/23 06:08 Dose: 40 mg Pyridoxine HCl (Pyridoxine 50 Mg Tab) 100 mg PO DAILY [facility] Last Admin: 02/02/23 10:00 Dose: 100 mg Thiamine HCl (Thiamine 100 Mg Tab) 100 mg PO DAILY [facility] Last Admin: 02/02/23 10:00 Dose: 100 mg Past medical history to include: Hypothyroid, osteomyelitis, COPD, left colectomy with end colostomy Social history: Lives with her boyfriend. Smokes about half a pack a day since age 21. Does use a walker. Physical examination: VITAL SIGNS: 98.3, 64, 17, 99/64, 94% room air GENERAL: BMI 20.4, reclining in bed awake tired. EYES: Pupils equal. Conjunctiva normal. HEENT: External appearance of nose and ears normal, oral cavity grossly normal. NECK: JVD not raised; masses not palpable. HEART: First and second heart sounds are normal; no edema. LUNGS: Respiratory rate normal; decreased breath sounds. ABDOMEN: Soft, distended, tender Liver spleen not palpable, no masses palpable. Tympanitic bowel sounds PSYCH: Alert and oriented x3; mood and affect anxious. MUSCULOSKELETAL:No Clubbing/cyanosis;muscles-grossly intact INVESTIGATIONS, reviewed in the clinical context: February 01: White count 8.3 hemoglobin 10.6 platelets 100 January 31: WBC 7.3 hemoglobin 8 platelets 103 121 TIBC 211% saturation 9.98 transferred 151 B12 516 folate-40 January 29: White count 8.8 hemoglobin 11.3 platelets 95 potassium 4.4 creatinine 0.94 Previous labs: Platelets 108 in October 2022, 103 in August 2022 Assessment and plan: -Reversal of colostomy. Right and left colectomy with end colostomy in September [address] Wortihngton full liquid diet. Follow with surgery. No flatus -Possible postoperative ileus.: New diagnosis Diet scale biopsy by surgery. Abdominal x-ray in the morning. -Acute postprocedure blood loss anemia, expected from surgery causing hypotensi on: Better Received 1 unit of blood -Postoperative hypotension.: Better lactated Ringer's. Received 1 unit of blood -GERD PPI -Acute medical debility from surgery.: Not improving PTOT. 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 Follow-up patient -Anemia of chronic disease hemoglobin 11.3 Iron deficiency from blood loss. Diet scale back. Two-view abdominal x-ray in the morning. Patient did not participate with physical therapy. Thank you Dr. Worthington
[2023-02-03] MEDS: HEPARIN SODIUM,PORCINE/PF 5,000 UNIT/0.5 ML SYRINGE SQ SCH ×3 (00:13→14:59)
[2023-02-03] MEDS: METOCLOPRAMIDE 5 MG/ML 2 ML VIAL IVP SCH ×4 (00:13→18:30)
[2023-02-03] MEDS: LEVOTHYROXINE 75 MCG TAB PO SCH (06:55)
[2023-02-03] MEDS: PANTOPRAZOLE 40 MG TABLET PO SCH (06:55)
[2023-02-03] MEDS: LACTATED RINGERS 1,000 ML IV SCH ×3 (07:45→19:47)
--- NOTE | 2023-02-03 08:24 | XR ---
EXAMINATION TYPE: XR abdomen 2V DATE OF EXAM: 02/03/2023 COMPARISON: 10/07/2022 HISTORY: Postoperative abdominal distention TECHNIQUE: One view abdominal series FINDINGS: The osseous structures are intact. Hypertrophic and degenerative changes spine. The bowel gas pattern is nonspecific. There is marked distention of the bowel loops. Subsegmental changes at the left lung base. Surgical elida noted. Arthropathy of the hips. IMPRESSION: 1. Markedly dilated bowel loops be seen with obstruction or severe postoperative ileus correlate clin ically.
[2023-02-03] MEDS: IPRATROPIUM-ALBUTEROL 3 ML NEB INHALATION SCH ×3 (09:53→21:49)
[2023-02-03] MEDS: MULTIVITAMINS, THERA 1 EACH TAB PO SCH (10:03)
[2023-02-03] MEDS: PYRIDOXINE 50 MG TAB PO SCH (10:03)
[2023-02-03] MEDS: THIAMINE 100 MG TAB PO SCH (10:03)
[2023-02-03] MEDS: LACTOBACILLUS ACIDOPH & BULGAR 1 EACH PACKET PO SCH (10:05)
[2023-02-03] MEDS: ALVIMOPAN 12 MG CAPSULE PO SCH ×2 (10:05→19:43)
[2023-02-03] MEDS: GABAPENTIN 300 MG CAP PO SCH (10:06)
[2023-02-03] MEDS: ONDANSETRON 4 MG/2 ML VIAL IVP PRN (10:41)
--- NOTE | 2023-02-03 14:24 | P.PN ---
Subjective Progress Note Date: 02/03/23 CHIEF COMPLAINT: History of colonic obstruction HISTORY OF PRESENT ILLNESS: Patient is postop day #5 status post exploratory laparotomy, takedown colostomy, takedown splenic flexure, partial colectomy, rep air of incisional hernia, lysis of adhesions and partial omentectomy. Patient does admit to nausea. She denies any further vomiting. No bowel activity yesterday or today. Abdominal x-ray markedly dilated bowel loops seen with structure in her severe postoperative ileus correlate clinically. Afebrile. Patient seen and examined with Dr. coto PHYSICAL EXAM: VITAL SIGNS: Reviewed. GENERAL: Well-developed in no acute distress. ABDOMEN: Soft.Distended. Incision site clean dry and intact. Dried blood noted on old ostomy incision ASSESSMENT: 1. History of Colonic obstruction status post colostomy reversal 2. Postoperative ileus expected due to chronic medical condition PLAN: -Keep patient NPO -Continue Reglan scheduled for ileus -Encourage patient to increase activity level -Continue antiemetics -Continue pain management -Encourage patient to use incentive spirometer -GI prophylaxis Protonix and DVT prophylaxis subcu heparin Physician Lawyer Criminal note has been reviewed by physician. Signing provider agrees with the documented findings, assessment, and plan of care. Objective - Vital Signs Vital signs: Vital Signs Temp 98.0 F 02/03/23 07:30 Pulse 61 02/03/23 07:30 Resp 18 02/03/23 08:31 BP 120/70 02/03/23 07:30 Pulse Ox 96 02/03/23 07:30 FiO2 Intake & Output 02/02/23 02/03/23 02/03/23 18:59 06:59 18:59 Output Total 500 Balance -500 Output: Post Void Residual 500 Other: Voiding Method Indwelling Catheter Indwelling Catheter # Voids 2 - Labs CBC & Chem 7: 02/01/23 08:14 01/29/23 15:50
--- NOTE | 2023-02-03 16:30 | P.PN ---
Progress Note - Text Progress Note Date: 02/03/23 - Chief Complaint Takedown colostomy Hospital course: This is a 63-year-old patient, who had severe ileus of right and left: And underwent right and left colectomy with end colostomy by Dr. Worthington on 09/21/2022. Patient on January 29/yesterday underwent exploratory laboratory with takedown of colostomy and takedown of splenic flexure with partial colectomy and repair of incisional hernia and lysis of adhesions by Dr. Worthington. Laying in bed this morning has an epidural in place. Wound VAC in place. No nausea vomiting. A bit tired January 31: Patient has not passed any flatus or BM. Pain is controlled. Provena wound VAC in place. Some serosanguineous output. Reclining in bed. Epidural in place. Patient has dropped her hemoglobin to 8. Hypotensive. Despite IV fluids. We will transfuse unit of blood. February 01: Epidural discontinued. Provena discontinued. No flatus. Has been advanced to full liquids. Still rather weak. Hasn't been out of bed. PTOT on the case. Patient received a unit of blood yesterday for hypertension and decreased hemoglobin. February 2: In bed. Did not participate with physical therapist. No flatus. Abdomen distended. Patient did vomit earlier. Diet downgraded by surgery. We will do abdominal x-ray in the morning. February 3: No flatus. Abdomen still distended. Abdominal x-rays confirmed ileus. Patient made nothing by mouth. Reglan was added by surgery. Increase activity as tolerated. Active Medications Hydrocodone Bitart/Acetaminophen (Hydrocodone/Apap 5-325mg 1 Each Tab) 1 each PO Q4HR PRN PRN Reason: Pain Albuterol/Ipratropium (Ipratropium-Albuterol 3 Ml Neb) 3 ml INHALATION RT-Q8H PRN PRN Reason: Wheezing Albuterol/Ipratropium (Ipratropium-Albuterol 3 Ml Neb) 3 ml INHALATION RT-TID [facility] Last Admin: 02/03/23 12:12 Dose: Not Given Alvimopan (Alvimopan 12 Mg Capsule) 12 mg PO BID [facility] Stop: 02/05/23 21:01 Last Admin: 02/03/23 10:05 Dose: 12 mg Gabapentin (Gabapentin 300 Mg Cap) 300 mg PO DAILY [facility] Last Admin: 02/03/23 10:06 Dose: 300 mg Heparin Sodium (Porcine) (Heparin Sodium,Porcine/Pf 5,000 Unit/0.5 Ml Syringe) 5,000 unit SQ Q8HR [facility] Last Admin: 02/03/23 14:59 Dose: 5,000 unit Hydromorphone HCl (Hydromorphone 1 Mg/Ml 1 Ml Syringe) 1 mg IVP Q3HR PRN PRN Reason: Pain Last Admin: 02/01/23 16:00 Dose: 1 mg Ropivacaine 250 mg/Hydromorphone HCl 5 mg/ Sodium Chloride 250 mls @ 0 mls/hr EPIDURAL .Q0M PRN; Protocol PRN Reason: Pain Control Last Admin: 01/31/23 11:19 Dose: 5 mls/hr Lactated Ringer's (Lactated Ringers) 1,000 mls @ 125 mls/hr IV .Q8H [facility] Last Admin: 02/03/23 13:57 Dose: 125 mls/hr Lactobacillus Acidoph/Bulgaricus (Lactobacillus Acidoph & Bulgar 1 Each Packet) 1 each PO DAILY [facility] Last Admin: 02/03/23 10:05 Dose: Not Given Levothyroxine Sodium (Levothyroxine 75 Mcg Tab) 75 mcg PO DAILY@0630 [facility] Last Admin: 02/03/23 06:55 Dose: Not Given Metoclopramide HCl (Metoclopramide 5 Mg/Ml 2 Ml Vial) 10 mg IVP Q6HR [facility] Last Admin: 02/03/23 12:51 Dose: 10 mg Multivitamins (Multivitamins, Thera 1 Each Tab) 1 each PO DAILY [facility] Last Admin: 02/03/23 10:03 Dose: Not Given Naloxone HCl (Naloxone 0.4 Mg/Ml 1 Ml Vial) 0.2 mg IV Q2M PRN PRN Reason: Opioid Reversal Ondansetron HCl (Ondansetron 4 Mg/2 Ml Vial) 4 mg IVP Q6HR PRN PRN Reason: Nausea And Vomiting Last Admin: 02/03/23 10:41 Dose: 4 mg Pantoprazole Sodium (Pantoprazole 40 Mg Tablet) 40 mg PO AC-BRKFST [facility] Last Admin: 02/03/23 06:55 Dose: Not Given Pyridoxine HCl (Pyridoxine 50 Mg Tab) 100 mg PO DAILY [facility] Last Admin: 02/03/23 10:03 Dose: Not Given Thiamine HCl (Thiamine 100 Mg Tab) 100 mg PO DAILY [facility] Last Admin: 02/03/23 10:03 Dose: Not Given Past medical history to include: Hypothyroid, osteomyelitis, COPD, left colectomy with end colostomy Social history: Lives with her boyfriend. Smokes about half a pack a day since age 21. Does use a walker. Physical examination: VITAL SIGNS: 98.6, 68, 16, 126/82, 97% on 2 L GENERAL: BMI 20.4, reclining in bed tired. EYES: Pupils equal. Conjunctiva normal. HEENT: External appearance of nose and ears normal, oral cavity grossly normal. NECK: JVD not raised; masses not palpable. HEART: First and second heart sounds are normal; no edema. LUNGS: Respiratory rate normal; decreased breath sounds. ABDOMEN: Soft, distended, tender Liver spleen not palpable, no masses palpable. Hyperactive bowel sounds PSYCH: Alert and oriented x3; mood and affect anxious. MUSCULOSKELETAL:No Clubbing/cyanosis;muscles-grossly intact INVESTIGATIONS, reviewed in the clinical context: Abdominal x-ray film personally reviewed by me: Ileus February 01: White count 8.3 hemoglobin 10.6 platelets 100 January 31: WBC 7.3 hemoglobin 8 platelets 103 121 TIBC 211% saturation 9.98 transferred 151 B12 516 folate-40 January 29: White count 8.8 hemoglobin 11.3 platelets 95 potassium 4.4 creatinine 0.94 Previous labs: Platelets 108 in October 2022, 103 in August 2022 Assessment and plan: -Reversal of colostomy. Right and left colectomy with end colostomy in September [address] Worthington full liquid diet. Follow with surgery. No flatus - postoperative ileus.: Not improving Nothing by mouth Reglan added by surgery. Increase activity. -Acute postprocedure blood loss anemia, expected from surgery causing hypotension: Better Received 1 unit of blood -Postoperative hypotension.: Better lactated Ringer's. Received 1 unit of blood -GERD PPI -Acute medical debility from surgery.: Not improving PTOT. 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 Follow-up patient -Anemia of chronic disease hemoglobin 11.3 Iron deficiency from blood loss. Patient nothing by mouth. Septic medications. IV fluids. Thank you Dr. Worthington
[2023-02-04] MEDS: LACTATED RINGERS 1,000 ML IV SCH ×3 (00:24→20:00)
[2023-02-04] MEDS: METOCLOPRAMIDE 5 MG/ML 2 ML VIAL IVP SCH ×4 (00:24→17:50)
[2023-02-04] MEDS: HEPARIN SODIUM,PORCINE/PF 5,000 UNIT/0.5 ML SYRINGE SQ SCH ×3 (00:24→16:11)
[2023-02-04] MEDS: PANTOPRAZOLE 40 MG TABLET PO SCH (05:45)
[2023-02-04] MEDS: LEVOTHYROXINE 75 MCG TAB PO SCH (05:45)
[2023-02-04 07:11] LABS: African American GFR (CKD) >90 (>60 ml/min/1.73 sqM); Anion Gap 9 mmol/L; Blood Urea Nitrogen 12 mg/dL (7-17); Calcium 7.1 mg/dL (8.4-10.2); Carbon Dioxide 25 mmol/L (22-30); Chloride 103 mmol/L (98-107); Glucose 50 mg/dL (74-99); Non-African American GFR(CKD) 80 (>60 ml/min/1.73 sqM); Potassium 3.6 mmol/L (3.5-5.1); Sodium 137 mmol/L (137-145)
[2023-02-04] MEDS: IPRATROPIUM-ALBUTEROL 3 ML NEB INHALATION SCH ×3 (08:52→20:56)
[2023-02-04] MEDS: THIAMINE 100 MG TAB PO SCH (09:19)
[2023-02-04] MEDS: ALVIMOPAN 12 MG CAPSULE PO SCH ×2 (09:19→19:57)
[2023-02-04] MEDS: MULTIVITAMINS, THERA 1 EACH TAB PO SCH (09:19)
[2023-02-04] MEDS: GABAPENTIN 300 MG CAP PO SCH (09:19)
[2023-02-04] MEDS: PYRIDOXINE 50 MG TAB PO SCH (09:20)
[2023-02-04] MEDS: LACTOBACILLUS ACIDOPH & BULGAR 1 EACH PACKET PO SCH (09:24)
[2023-02-04] MEDS: ONDANSETRON 4 MG/2 ML VIAL IVP PRN (10:10)
[2023-02-04 10:54] LABS: HGB 10.2 g/dL (12.0-15.0); MCH 29.6 pg (27.0-32.0); MCHC 31.9 g/dL (32.0-37.0); MCV 92.8 fL (80.0-97.0); Mean Platelet Volume 11.7 fL (9.5-12.2); NRBC Per 100 WBC 0 /100 WBCS (0.0-0.0); Platelet Count 134 X 10*3/uL (140-440); RBC 3.45 X 10*6/uL (4.10-5.20); RDW 16.6 % (11.5-14.5); WBC 5.94 X 10*3/uL (4.50-10.00)
[2023-02-04 12:08] LABS: Anisocytosis Slight; Basophils % (A) 0 %; Eosinophils # (A) 0.3 k/uL (0-0.7); Eosinophils % (A) 7 %; HCT 32.3 % (34.0-46.0); HGB 10.4 gm/dL (11.4-16.0); Lymphocytes # (A) 0.8 k/uL (1.0-4.8); Lymphocytes % (A) 16 %; MCH 29.2 pg (25.0-35.0); MCHC 32.2 g/dL (31.0-37.0); MCV 90.7 fL (80.0-100.0); Mean Platelet Volume 8.6; Monocytes # (A) 0.2 k/uL (0-1.0); Monocytes % (A) 4 %; Neutrophils # (A) 3.8 k/uL (1.3-7.7); Neutrophils % (A) 72 %; Platelet Count 139 k/uL (150-450); RBC 3.56 m/uL (3.80-5.40); RDW 16.3 % (11.5-15.5); WBC 5.3 k/uL (3.8-10.6)
[2023-02-04 12:19] LABS: INR 1.1 (<1.2)
[2023-02-04 12:29] LABS: African American GFR (CKD) >90 (>60 ml/min/1.73 sqM); Anion Gap 10 mmol/L; Blood Urea Nitrogen 12 mg/dL (7-17); Carbon Dioxide 24 mmol/L (22-30); Chloride 101 mmol/L (98-107); Non-African American GFR(CKD) 78 (>60 ml/min/1.73 sqM); Sodium 135 mmol/L (137-145)
--- NOTE | 2023-02-04 13:41 | P.PN ---
Subjective Progress Note Date: 02/04/23 CHIEF COMPLAINT: History of colonic obstruction HISTORY OF PRESENT ILLNESS: Patient is postop day #6 status post exploratory laparotomy, takedown colostomy, takedown splenic flexure, partial colectomy, rep air of incisional hernia, lysis of adhesions and partial omentectomy. Patient has not been very active. She did get up to the chair for a couple hours yesterday. Still no bowel movements. She may be passing small amount of flatus. Reports nausea. No vomiting. She remains distended. Afebrile. WBC5.3 hgb 10.4 plt 139 na 135 cr 0.8 Patient seen and examined with Dr. coto PHYSICAL EXAM: VITAL SIGNS: Reviewed. GENERAL: Well-developed in no acute distress. ABDOMEN: Distended. Incision site clean dry and intact. Dried blood noted on old ostomy incision ASSESSMENT: 1. History of Colonic obstruction status post colostomy reversal 2. Postoperative ileus expected due to chronic medical condition PLAN: -PICC line ordered for TPN -Consult dietitian to initiate TPN -Keep patient NPO due to abdominal ileus and abdominal distention -Continue Reglan scheduled for ileus -Encourage patient to increase activity level -Continue antiemetics -Continue pain management -Encourage patient to use incentive spirometer -GI prophylaxis Protonix and DVT prophylaxis subcu heparin Physician Development And Planning Engineer note has been reviewed by physician. Signing provider agrees with the documented findings, assessment, and plan of care. Objective - Vital Signs Vital signs: Vital Signs Temp 98.4 F 02/04/23 07:38 Pulse 66 02/04/23 07:38 Resp 17 02/04/23 08:18 BP 111/62 02/04/23 07:38 Pulse Ox 95 02/04/23 07:38 FiO2 Intake & Output 02/03/23 02/04/23 02/04/23 18:59 06:59 18:59 Output Total 1550 Balance -1550 Weight 55.57 kg Output: Urine 1550 Other: Voiding Method External Catheter - Labs CBC & Chem 7: 02/04/23 11:41 02/04/23 11:41 Labs: Abnormal Lab Results - Last 24 Hours (Table) 02/04/23 02/04/23 02/04/23 Range/Units 06:39 06:39 06:39 RBC 3.45 L (4.10-5.20) X 10*6/uL Hgb 10.2 L (12.0-15.0) g/dL Hct 32.0 L (37.2-46.3) % MCHC 31.9 L (32.0-37.0) g/dL RDW 16.6 H (11.5-14.5) % Plt Count 134 L (140-440) X 10*3/uL Lymphocytes # (1.0-4.8) k/uL Sodium (137-145) mmol/L Glucose 50 L (74-99) mg/dL Calcium 7.1 L (8.4-10.2) mg/dL Magnesium 1.3 L (1.5-2.4) mg/dL 02/04/23 02/04/23 Range/Units 11:41 11:41 RBC 3.56 L (4.10-5.20) X 10*6/uL Hgb 10.4 L (12.0-15.0) g/dL Hct 32.3 L (37.2-46.3) % MCHC (32.0-37.0) g/dL RDW 16.3 H (11.5-14.5) % Plt Count 139 L (140-440) X 10*3/uL Lymphocytes # 0.8 L (1.0-4.8) k/uL Sodium 135 L (137-145) mmol/L Glucose (74-99) mg/dL Calcium (8.4-10.2) mg/dL Magnesium (1.5-2.4) mg/dL
[2023-02-04] MEDS ORDERED: LIDOCAINE 1% INJ 10MG/ML (5 ML VIAL-PF) SQ ONE (13:57)
--- NOTE | 2023-02-04 15:19 | IR ---
PICC LINE PLACEMENT: HISTORY: TPN therapy PROCEDURE: Ultrasound and fluoroscopic guidance of PICC line placement. COMPLICATIONS: None ANESTHESIA: 1. 1% Lidocaine locally. FINDINGS/TECHNIQUE: The procedure was explained to the patient. The risks, complications, benefits and alternatives were discussed and any questions were answered. Informed consent was obtained. The patient was placed supine on the fluoroscopic table and prepped and draped in the usual sterile fas ion. Utilizing a 21 gauge needle and sonographic and fluoroscopic guidance, access in the vein was achieved and there is placement of a 0.018 guidewire. The vein is patent. A 5-Fr sheath was placed over the guidewire. The guidewire and dilator were removed and a 5-F. Double lumen PICC line was pl aced through the sheath with the tip at the level of the SVC. The sheath was removed, the catheter w as flushed and sutured into position. The patient was stable throughout the procedure and remained s table upon discharge from the Department of Radiology. The vein puncture was patent under ultrasound. A duke scale image was obtained to document patency of the vein punctured. All elements of the maximal barrier technique were utilized. FLUOROSCOPY TIME: 0.1 cm and 6.5 uGym2 IMPRESSION: Successful PICC double lumen line placement under ultrasound and fluoroscopic guidance.
[2023-02-04 15:41] LABS: Ionized Calcium 4.7 mg/dL (4.5-5.3)
[2023-02-04 15:55] LABS: Albumin 2.5 g/dL (3.5-5.0); Phosphorus 3.7 mg/dL (2.5-4.5)
[2023-02-04] MEDS: MAGNESIUM SULFATE-D5W PMX 1 GM in DEXTROSE/WATER 1 100ML.BAG IVPB SCH ×3 (16:10→19:57)
--- NOTE | 2023-02-04 16:49 | P.PN ---
Progress Note - Text Progress Note Date: 02/04/23 - Chief Complaint Takedown colostomy Hospital course: This is a 63-year-old patient, who had severe ileus of right and left: And underwent right and left colectomy with end colostomy by Dr. Worthington on 09/21/2022. Patient on January 29/yesterday underwent exploratory laboratory with takedown of colostomy and takedown of splenic flexure with partial colectomy and repair of incisional hernia and lysis of adhesions by Dr. Worthington. Laying in bed this morning has an epidural in place. Wound VAC in place. No nausea vomiting. A bit tired January 31: Patient has not passed any flatus or BM. Pain is controlled. Provena wound VAC in place. Some serosanguineous output. Reclining in bed. Epidural in place. Patient has dropped her hemoglobin to 8. Hypotensive. Despite IV fluids. We will transfuse unit of blood. February 1: Epidural discontinued. Provena discontinued. No flatus. Has been advanced to full liquids. Still rather weak. Hasn't been out of bed. PTOT on the case. Patient received a unit of blood yesterday for hypertension and decreased hemoglobin. February 2: In bed. Did not participate with physical therapist. No flatus. Abdomen distended. Patient did vomit earlier. Diet downgraded by surgery. We will do abdominal x-ray in the morning. February 3: No flatus. Abdomen still distended. Abdominal x-rays confirmed ileus. Patient made nothing by mouth. Reglan was added by surgery. Increase activity as tolerated. February 4: Patient thinks she may pass them flatus. Abdomen still distended. Nothing by mouth. Getting Flagyl. Active Medications Hydrocodone Bitart/Acetaminophen (Hydrocodone/Apap 5-325mg 1 Each Tab) 1 each PO Q4HR PRN PRN Reason: Pain Last Admin: 02/04/23 05:49 Dose: 1 each Albuterol/Ipratropium (Ipratropium-Albuterol 3 Ml Neb) 3 ml INHALATION RT-Q8H PRN PRN Reason: Wheezing Albuterol/Ipratropium (Ipratropium-Albuterol 3 Ml Neb) 3 ml INHALATION RT-TID [facility] Last Admin: 02/04/23 12:19 Dose: Not Given Alvimopan (Alvimopan 12 Mg Capsule) 12 mg PO BID [facility] Stop: 02/05/23 21:01 Last Admin: 02/04/23 09:19 Dose: 12 mg Gabapentin (Gabapentin 300 Mg Cap) 300 mg PO DAILY [facility] Last Admin: 02/04/23 09:19 Dose: 300 mg Heparin Sodium (Porcine) (Heparin Sodium,Porcine/Pf 5,000 Unit/0.5 Ml Syringe) 5,000 unit SQ Q8HR [facility] Last Admin: 02/04/23 16:11 Dose: 5,000 unit Hydromorphone HCl (Hydromorphone 1 Mg/Ml 1 Ml Syringe) 1 mg IVP Q3HR PRN PRN Reason: Pain Last Admin: 02/01/23 16:00 Dose: 1 mg Ropivacaine 250 mg/Hydromorphone HCl 5 mg/ Sodium Chloride 250 mls @ 0 mls/hr EPIDURAL .Q0M PRN; Protocol PRN Reason: Pain Control Last Admin: 01/31/23 11:19 Dose: 5 mls/hr Lactated Ringer's (Lactated Ringers) 1,000 mls @ 125 mls/hr IV .Q8H [facility] Last Admin: 02/04/23 16:12 Dose: 125 mls/hr Magnesium Sulfate/Dextrose 1 (gm/ IV Solution) 100 mls @ 100 mls/hr IVPB Q1H [facility] Stop: 02/04/23 18:44 Last Admin: 02/04/23 16:10 Dose: 100 mls/hr Lactobacillus Acidoph/Bulgaricus (Lactobacillus Acidoph & Bulgar 1 Each Packet) 1 each PO DAILY [facility] Last Admin: 02/04/23 09:24 Dose: Not Given Levothyroxine Sodium (Levothyroxine 75 Mcg Tab) 75 mcg PO DAILY@0630 [facility] Last Admin: 02/04/23 05:45 Dose: 75 mcg Metoclopramide HCl (Metoclopramide 5 Mg/Ml 2 Ml Vial) 10 mg IVP Q6HR [facility] Last Admin: 02/04/23 15:16 Dose: Not Given Multivitamins (Multivitamins, Thera 1 Each Tab) 1 each PO DAILY [facility] Last Admin: 02/04/23 09:19 Dose: 1 each Naloxone HCl (Naloxone 0.4 Mg/Ml 1 Ml Vial) 0.2 mg IV Q2M PRN PRN Reason: Opioid Reversal Ondansetron HCl (Ondansetron 4 Mg/2 Ml Vial) 4 mg IVP Q6HR PRN PRN Reason: Nausea And Vomiting Last Admin: 02/04/23 10:10 Dose: 4 mg Pantoprazole Sodium (Pantoprazole 40 Mg Tablet) 40 mg PO AC-BRKFST [facility] Last Admin: 02/04/23 05:45 Dose: 40 mg Pyridoxine HCl (Pyridoxine 50 Mg Tab) 100 mg PO DAILY [facility] Last Admin: 02/04/23 09:20 Dose: 100 mg Thiamine HCl (Thiamine 100 Mg Tab) 100 mg PO DAILY [facility] Last Admin: 02/04/23 09:19 Dose: 100 mg Past medical history to include: Hypothyroid, osteomyelitis, COPD, left colectomy with end colostomy Social history: Lives with her boyfriend. Smokes about half a pack a day since age 21. Does use a walker. Physical examination: VITAL SIGNS: 98.4, 66, 18, 119/75, 96% room air GENERAL: BMI 20.4, reclining in bed tired. EYES: Pupils equal. Conjunctiva normal. HEENT: External appearance of nose and ears normal, oral cavity grossly normal. NECK: JVD not raised; masses not palpable. HEART: First and second heart sounds are normal; no edema. LUNGS: Respiratory rate normal; decreased breath sounds. ABDOMEN: Soft, distended, tender Liver spleen not palpable, no masses palpable. Hyperactive bowel sounds PSYCH: Alert and oriented x3; mood and affect anxious. MUSCULOSKELETAL:No Clubbing/cyanosis;muscles-grossly intact INVESTIGATIONS, reviewed in the clinical context: February 04: White count 5.3 hemoglobin 10.4 platelets 139 potassium 4 creatinine 0.80 Abdominal x-ray film personally reviewed by me: Ileus February 01: White count 8.3 hemoglobin 10.6 platelets 100 January 31: WBC 7.3 hemoglobin 8 platelets 103 121 TIBC 211% saturation 9.98 transferred 151 B12 516 folate-40 January 29: White count 8.8 hemoglobin 11.3 platelets 95 potassium 4.4 creatinine 0.94 Previous labs: Platelets 108 in October 2022, 103 in August 2022 Assessment and plan: -Reversal of colostomy. Right and left colectomy with end colostomy in September [address] Worthington Nothing by mouth. Follow with surgery. No flatus - postoperative ileus.: Not improving Nothing by mouth Reglan added by surgery. Increase activity. -Acute postprocedure blood loss anemia, expected from surgery causing hypotension: Better Received 1 unit of blood -Postoperative hypotension.: Better lactated Ringer's. Received 1 unit of blood -GERD PPI -Acute medical debility from surgery.: Not improving PTOT. 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 Follow-up patient -Anemia of chronic disease hemoglobin 11.3 Iron deficiency from blood loss. nothing by mouth. IV fluids. Repeat abdominal x-ray in the morning. Thank you Dr. Worthington
[2023-02-04] MEDS ORDERED: MVI, ADULT NO.4 WITH VIT K 10 ML, TRACE (CONC-1ML/DOSE) 1 ML in AMINO ACID 5%-D20W+LYTE... IV ONE ×3 (18:00)
[2023-02-04] MEDS: FAT EMULSION 20% 250 ML in EMPTY BAG 1 BAG IV SCH (18:38)
[2023-02-05] MEDS: METOCLOPRAMIDE 5 MG/ML 2 ML VIAL IVP SCH ×4 (00:40→17:51)
[2023-02-05] MEDS: HEPARIN SODIUM,PORCINE/PF 5,000 UNIT/0.5 ML SYRINGE SQ SCH ×3 (00:40→17:51)
[2023-02-05] MEDS: LACTATED RINGERS 1,000 ML IV SCH ×3 (05:34→19:59)
[2023-02-05] MEDS: LEVOTHYROXINE 75 MCG TAB PO SCH (06:02)
[2023-02-05] MEDS: PANTOPRAZOLE 40 MG TABLET PO SCH (06:02)
[2023-02-05 07:11] LABS: African American GFR (CKD) >90 (>60 ml/min/1.73 sqM); Anion Gap 7 mmol/L; Blood Urea Nitrogen 11 mg/dL (7-17); Calcium 6.9 mg/dL (8.4-10.2); Carbon Dioxide 26 mmol/L (22-30); Chloride 102 mmol/L (98-107); Glucose 109 mg/dL (74-99); Magnesium 1.6 mg/dL (1.6-2.3); Non-African American GFR(CKD) 85 (>60 ml/min/1.73 sqM); Phosphorus 3.5 mg/dL (2.5-4.5); Potassium 3.4 mmol/L (3.5-5.1); Sodium 135 mmol/L (137-145)
[2023-02-05] MEDS: LACTOBACILLUS ACIDOPH & BULGAR 1 EACH PACKET PO SCH (07:42)
[2023-02-05] MEDS: MULTIVITAMINS, THERA 1 EACH TAB PO SCH (07:48)
[2023-02-05] MEDS: ALVIMOPAN 12 MG CAPSULE PO SCH ×2 (07:48→20:56)
[2023-02-05] MEDS: PYRIDOXINE 50 MG TAB PO SCH (07:48)
[2023-02-05] MEDS: THIAMINE 100 MG TAB PO SCH (07:48)
[2023-02-05] MEDS: GABAPENTIN 300 MG CAP PO SCH (07:49)
[2023-02-05] MEDS ORDERED: POTASSIUM CHLORIDE ER 20 MEQ TAB.ER PO STA (08:17)
--- NOTE | 2023-02-05 08:19 | XR ---
EXAMINATION TYPE: XR abdomen 2V DATE OF EXAM: 02/05/2023 COMPARISON: 02/03/2023 HISTORY: Abdominal distention TECHNIQUE: One view abdominal series FINDINGS: The osseous structures are intact. Hypertrophic and degenerative changes spine. The bowel gas pattern is nonspecific. There is marked distention of the bowel loops. Subsegmental changes at the left lung base. Surgical elida noted. Arthropathy of the hips. IMPRESSION: 1. Persistent markedly dilated bowel loops in a pattern suggestive of severe ileus or severe obstruct ion. Correlate clinically. No interval improvement.
[2023-02-05] MEDS: IPRATROPIUM-ALBUTEROL 3 ML NEB INHALATION SCH ×3 (09:36→19:55)
[2023-02-05 11:08] LABS: Glucose,Whole Blood 129 mg/dL (70-110)
--- NOTE | 2023-02-05 12:19 | P.PN ---
Progress Note - Text Progress Note Date: 02/05/23 The patient was seen on rounds today. Her abdomen is very distended. Her x-ray shows a significant ileus with dilated small bowel loops. The patient is very belligerent today she is being very difficult with the entire medical staff nurses, physical therapist and myself. I discussed with patient that she will need a nasogastric tube. I also called the patient's significant other did explain to them the importance of a nasogastric tube. The patient reluctantly agreed to have a nasogastric tube placement nursing.
--- NOTE | 2023-02-05 12:40 | XR ---
EXAMINATION TYPE: XR chest 1V portable DATE OF EXAM: 02/05/2023 COMPARISON: NONE HISTORY: NG tube placement TECHNIQUE: Single frontal view of the chest is obtained. FINDINGS: Right-sided PICC line is noted and there is an NG tube with the tip at the level of the ga stric fundus. Left lower lobe consolidation and small effusion. No overt failure or pneumothorax. Dif fuse osteopenia. Hypertrophic and degenerative changes of the spine. IMPRESSION: 1. NG tube is seen with the tip at the level the gastric fundus. 2. Left lower lobe infiltrate and small pleural effusion.
--- NOTE | 2023-02-05 14:49 | P.PN ---
Subjective Progress Note Date: 02/05/23 CHIEF COMPLAINT: History of colonic obstruction HISTORY OF PRESENT ILLNESS: Patient is postop day #7 status post exploratory laparotomy, takedown colostomy, takedown splenic flexure, partial colectomy, rep air of incisional hernia, lysis of adhesions and partial omentectomy. Patient's abdomen is more distended today. She has passed a small amount of flatus. She denies bowel movements. Her pain is controlled. She was started on TPN yesterday. Abdominal x-ray persistent markedly dilated bowel loops and a pattern to just of severe ileus or severe obstruction. No interval improvement. Placement of NG tube was discussed with patient and she is reluctantly agreeable for placement. Patient has been belligerent with nursing staff, physical therapy and Dr. coto. She has not been willing to work with physical therapy. She has not been up ambulating as instructed. She has been swearing at the staff. Afebrile. Sodium 135 potassium 3.4 creatinine 0.5 magnesium 1.6. Patient seen and examined with Dr. coto PHYSICAL EXAM: VITAL SIGNS: Reviewed. GENERAL: Well-developed in no acute distress. ABDOMEN: More Distended. Incisional dressing clean dry and intact ASSESSMENT: 1. History of Colonic obstruction status post colostomy reversal 2. Postoperative ileus expected due to chronic medical condition PLAN: -NG tube placed for decompression -Minimal clear output through NG tube. NG tube advanced. Chest x-ray ordered to confirm placement. -Keep patient nothing by mouth -Continue Reglan -Continue antiemetics -Continue pain management -Encourage patient to use incentive spirometer -GI prophylaxis Protonix and DVT prophylaxis subcu heparin Physician Rn Outpatient Surgery note has been reviewed by physician. Signing provider agrees with the documented findings, assessment, and plan of care. Objective - Vital Signs Vital signs: Vital Signs Temp 98.4 F 02/05/23 07:13 Pulse 73 02/05/23 07:13 Resp 16 02/05/23 07:13 BP 121/74 02/05/23 07:13 Pulse Ox 94 L 02/05/23 07:13 FiO2 Intake & Output 02/04/23 02/05/23 02/05/23 18:59 06:59 18:59 Intake Total 1612 Output Total 550 925 Balance -550 687 Weight 55.57 kg Intake: Intake, IV Titration 1612 Amount Fat Emulsion 20% 250 ml 252 In Empty Bag 1 bag @ 21 mls/hr IV MoTh [facility] Rx#: [id number] Lactated Ringers 1,000 ml 900 @ 125 mls/hr IV .Q8H [facility] Rx#:[id number] Magnesium Sulfate-D5w Pmx 100 1 gm In Dextrose/Water 1 100ml.bag @ 100 mls/hr IVPB Q1H [facility] Rx#: [id number] Mvi, Adult No.4 with Vit 360 K 10 ml Trace (Conc-1Ml/ Dose) 1 ml In Amino Acid 5%-D20w+Lytes*E* 1,000 ml @ 30 mls/hr IV .Q24H [facility] Rx#:[id number] Output: Urine 550 925 Other: Voiding Method External Catheter External Catheter - Labs CBC & Chem 7: 02/04/23 11:41 02/05/23 06:11 Labs: Abnormal Lab Results - Last 24 Hours (Table) 02/04/23 02/05/23 02/05/23 Range/Units 14:46 06:11 11:04 Sodium 135 L (137-145) mmol/L Potassium 3.4 L (3.5-5.1) mmol/L Glucose 109 H (74-99) mg/dL POC Glucose (mg/dL) 129 H (70-110) mg/dL Calcium 6.9 L (8.4-10.2) mg/dL Albumin 2.5 L (3.5-5.0) g/dL Triglycerides 157.00 H (0.00-149.00) mg/dL
--- NOTE | 2023-02-05 17:06 | XR ---
EXAMINATION TYPE: XR chest 1V portable DATE OF EXAM: 02/05/2023 Comparison: 02/05/2023 Clinical History: 63-year-old female Check NG tube placement Findings: NG tube courses below the diaphragm. Patchy left basilar opacity and small left pleural effusion pers ists. Right PICC tip remains short at the upper SVC. Hyperinflation and borderline cardiomegaly. Impression: 1. Satisfactory NG tube. The right PICC line remains short, tip in the upper SVC. 2. Continued small left pleural effusion with patchy left basilar atelectasis or infiltrate.
[2023-02-05 17:09] LABS: Glucose,Whole Blood 116 mg/dL (70-110)
--- NOTE | 2023-02-05 17:17 | P.PN ---
Progress Note - Text Progress Note Date: 02/05/23 - Chief Complaint Takedown colostomy Hospital course: This is a 63-year-old patient, who had severe ileus of right and left: And underwent right and left colectomy with end colostomy by Dr. Worthington on 09/21/2022. Patient on January 29/yesterday underwent exploratory laboratory with takedown of colostomy and takedown of splenic flexure with partial colectomy and repair of incisional hernia and lysis of adhesions by Dr. Worthington. Laying in bed this morning has an epidural in place. Wound VAC in place. No nausea vomiting. A bit tired January 31: Patient has not passed any flatus or BM. Pain is controlled. Provena wound VAC in place. Some serosanguineous output. Reclining in bed. Epidural in place. Patient has dropped her hemoglobin to 8. Hypotensive. Despite IV fluids. We will transfuse unit of blood. February 1: Epidural discontinued. Provena discontinued. No flatus. Has been advanced to full liquids. Still rather weak. Hasn't been out of bed. PTOT on the case. Patient received a unit of blood yesterday for hypertension and decreased hemoglobin. February 2: In bed. Did not participate with physical therapist. No flatus. Abdomen distended. Patient did vomit earlier. Diet downgraded by surgery. We will do abdominal x-ray in the morning. February 3: No flatus. Abdomen still distended. Abdominal x-rays confirmed ileus. Patient made nothing by mouth. Reglan was added by surgery. Increase activity as tolerated. February 4: Patient thinks she may pass them flatus. Abdomen still distended. Nothing by mouth. Getting Flagyl. February 5: Patient refusing to participate in therapy. Will not do therapy until she eats. X-rays again showing ileus. Surgery ordered NG tube. Patient states she passed and little amount of flatus. Abdomen distended no nausea vomiting Active Medications Hydrocodone Bitart/Acetaminophen (Hydrocodone/Apap 5-325mg 1 Each Tab) 1 each PO Q4HR PRN PRN Reason: Pain Last Admin: 02/04/23 05:49 Dose: 1 each Albuterol/Ipratropium (Ipratropium-Albuterol 3 Ml Neb) 3 ml INHALATION RT-Q8H PRN PRN Reason: Wheezing Albuterol/Ipratropium (Ipratropium-Albuterol 3 Ml Neb) 3 ml INHALATION RT-TID [facility] Last Admin: 02/05/23 12:33 Dose: Not Given Alvimopan (Alvimopan 12 Mg Capsule) 12 mg PO BID [facility] Stop: 02/05/23 21:01 Last Admin: 02/05/23 07:48 Dose: 12 mg Gabapentin (Gabapentin 300 Mg Cap) 300 mg PO DAILY [facility] Last Admin: 02/05/23 07:49 Dose: 300 mg Heparin Sodium (Porcine) (Heparin Sodium,Porcine/Pf 5,000 Unit/0.5 Ml Syringe) 5,000 unit SQ Q8HR [facility] Last Admin: 02/05/23 07:49 Dose: 5,000 unit Hydromorphone HCl (Hydromorphone 1 Mg/Ml 1 Ml Syringe) 1 mg IVP Q3HR PRN PRN Reason: Pain Last Admin: 02/01/23 16:00 Dose: 1 mg Ropivacaine 250 mg/Hydromorphone HCl 5 mg/ Sodium Chloride 250 mls @ 0 mls/hr EPIDURAL .Q0M PRN; Protocol PRN Reason: Pain Control Last Admin: 01/31/23 11:19 Dose: 5 mls/hr Lactated Ringer's (Lactated Ringers) 1,000 mls @ 125 mls/hr IV .Q8H [facility] Last Admin: 02/05/23 07:37 Dose: 125 mls/hr Parenteral Vitamin Supplement 10 ml/ Zinc/Copper/Manganese/Selenium 1 ml/ Amino Ac/Electrol/Dextrose/Calcium 1,011 mls @ 30 mls/hr IV .Q24H [facility] Stop: 02/05/23 17:59 Last Admin: 02/04/23 18:38 Dose: 30 mls/hr Fat Emulsion Intravenous 250 (ml/ IV Solution) 250 mls @ 21 mls/hr IV MoTh [facility] Last Admin: 02/04/23 18:38 Dose: 21 mls/hr Amino Ac/Electrol/Dextrose/Calcium (Clinimix E 5%-20% Solution) 1,000 mls @ 60 mls/hr IV .BY DURATION [facility] Parenteral Vitamin Supplement 10 ml/ Zinc/Copper/Manganese/Selenium 1 ml/ Amino Ac/Electrol/Dextrose/Calcium 1,011 mls @ 60 mls/hr IV .BY DURATION [facility] Lactobacillus Acidoph/Bulgaricus (Lactobacillus Acidoph & Bulgar 1 Each Packet) 1 each PO DAILY [facility] Last Admin: 02/05/23 07:42 Dose: Not Given Levothyroxine Sodium (Levothyroxine 75 Mcg Tab) 75 mcg PO DAILY@0630 [facility] Last Admin: 02/05/23 06:02 Dose: 75 mcg Metoclopramide HCl (Metoclopramide 5 Mg/Ml 2 Ml Vial) 10 mg IVP Q6HR [facility] Last Admin: 02/05/23 12:08 Dose: 10 mg Multivitamins (Multivitamins, Thera 1 Each Tab) 1 each PO DAILY [facility] Last Admin: 02/05/23 07:48 Dose: 1 each Naloxone HCl (Naloxone 0.4 Mg/Ml 1 Ml Vial) 0.2 mg IV Q2M PRN PRN Reason: Opioid Reversal Ondansetron HCl (Ondansetron 4 Mg/2 Ml Vial) 4 mg IVP Q6HR PRN PRN Reason: Nausea And Vomiting Last Admin: 02/04/23 10:10 Dose: 4 mg Pantoprazole Sodium (Pantoprazole 40 Mg Tablet) 40 mg PO AC-BRKFST [facility] Last Admin: 02/05/23 06:02 Dose: 40 mg Pyridoxine HCl (Pyridoxine 50 Mg Tab) 100 mg PO DAILY [facility] Last Admin: 02/05/23 07:48 Dose: 100 mg Thiamine HCl (Thiamine 100 Mg Tab) 100 mg PO DAILY [facility] Last Admin: 02/05/23 07:48 Dose: 100 mg Past medical history to include: Hypothyroid, osteomyelitis, COPD, left colectomy with end colostomy Social history: Lives with her boyfriend. Smokes about half a pack a day since age 21. Does use a walker. Physical examination: VITAL SIGNS: 97.9, 74, 16, 138/66, 92% room air GENERAL: BMI 20.4, reclining in bed tired. EYES: Pupils equal. Conjunctiva normal. HEENT: External appearance of nose and ears normal, oral cavity grossly normal. NECK: JVD not raised; masses not palpable. HEART: First and second heart sounds are normal; no edema. LUNGS: Respiratory rate normal; decreased breath sounds. ABDOMEN: Soft, distended, tender Liver spleen not palpable, no masses palpable. Hyperactive bowel sounds PSYCH: Alert and oriented x3; mood and affect anxious. MUSCULOSKELETAL:No Clubbing/cyanosis;muscles-grossly intact INVESTIGATIONS, reviewed in the clinical context: February 04: White count 5.3 hemoglobin 10.4 platelets 139 potassium 4 creatinine 0.80 Abdominal x-ray film personally reviewed by me: Ileus February 01: White count 8.3 hemoglobin 10.6 platelets 100 January 31: WBC 7.3 hemoglobin 8 platelets 103 121 TIBC 211% saturation 9.98 transferred 151 B12 516 folate-40 January 29: White count 8.8 hemoglobin 11.3 platelets 95 potassium 4.4 creatinine 0.94 Previous labs: Platelets 108 in October 2022, 103 in August 2022 Assessment and plan: -Reversal of colostomy. Right and left colectomy with end colostomy in September [address] Worthington Nothing by mouth. Follow with surgery. No flatus - postoperative ileus.: Not improving Nothing by mouth Reglan added by surgery. NG tube ordered -Acute postprocedure blood loss anemia, expected from surgery causing hypotension: Better Received 1 unit of blood -Postoperative hypotension.: Better lactated Ringer's. Received 1 unit of blood -GERD PPI -Acute medical debility from surgery.: Not improving PTOT. 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 Follow-up patient -Anemia of chronic disease hemoglobin 11.3 Iron deficiency from blood loss. nothing by mouth. IV fluids. NG tube. Patient refusing to participate in therapy. Thank you Dr. Worthington
[2023-02-05] MEDS ORDERED: 1: AMINO ACID 5%-D20W+LYTES*E* 1,000 ML 2: MVI, ADULT NO.4 WITH VIT K 10 ML, TRACE (CON IV SCH ×3 (18:00)
[2023-02-05] MEDS: HYDROmorphone 1 MG/ML 1 ML SYRINGE IVP PRN (19:58)
[2023-02-05 21:14] LABS: Glucose,Whole Blood 138 mg/dL (70-110)
[2023-02-06] MEDS: HEPARIN SODIUM,PORCINE/PF 5,000 UNIT/0.5 ML SYRINGE SQ SCH ×3 (00:15→15:31)
[2023-02-06] MEDS: METOCLOPRAMIDE 5 MG/ML 2 ML VIAL IVP SCH ×4 (00:15→17:31)
[2023-02-06 00:39] LABS: Glucose,Whole Blood 129 mg/dL (70-110)
[2023-02-06 05:57] LABS: Glucose,Whole Blood 153 mg/dL (70-110)
[2023-02-06] MEDS: LEVOTHYROXINE 75 MCG TAB PO SCH (06:18)
[2023-02-06] MEDS: PANTOPRAZOLE 40 MG TABLET PO SCH (06:18)
[2023-02-06] MEDS: LACTATED RINGERS 1,000 ML IV SCH ×2 (06:30→10:13)
[2023-02-06 07:06] LABS: African American GFR (CKD) >90 (>60 ml/min/1.73 sqM); Anion Gap 4 mmol/L; Blood Urea Nitrogen 12 mg/dL (7-17); Calcium 6.7 mg/dL (8.4-10.2); Carbon Dioxide 31 mmol/L (22-30); Chloride 102 mmol/L (98-107); Glucose 126 mg/dL (74-99); Magnesium 1.4 mg/dL (1.6-2.3); Non-African American GFR(CKD) >90 (>60 ml/min/1.73 sqM); Phosphorus 3.7 mg/dL (2.5-4.5); Potassium 3.5 mmol/L (3.5-5.1); Sodium 137 mmol/L (137-145)
[2023-02-06 09:26] LABS: Basophils # (A) 0.02 X 10*3/uL (0.00-0.10); Basophils % (A) 0.4 %; Eosinophils # (A) 0.45 X 10*3/uL (0.04-0.35); Eosinophils % (A) 8.1 %; HCT 31.5 % (37.2-46.3); HGB 9.9 g/dL (12.0-15.0); Immature Grans, Automated 0.4 %; Lymphocytes # (A) 0.84 X 10*3/uL (0.90-5.00); Lymphocytes % (A) 15.2 %; MCH 29.3 pg (27.0-32.0); MCHC 31.4 g/dL (32.0-37.0); MCV 93.2 fL (80.0-97.0); Mean Platelet Volume 11.1 fL (9.5-12.2); Monocytes # (A) 0.33 X 10*3/uL (0.20-1.00); NRBC Per 100 WBC 0 /100 WBCS (0.0-0.0); Neutrophils # (A) 3.88 X 10*3/uL (1.80-7.70); Neutrophils % (A) 69.9 %; Platelet Count 153 X 10*3/uL (140-440); RBC 3.38 X 10*6/uL (4.10-5.20); RDW 16.7 % (11.5-14.5); WBC 5.54 X 10*3/uL (4.50-10.00)
[2023-02-06] MEDS: IPRATROPIUM-ALBUTEROL 3 ML NEB INHALATION SCH ×3 (09:28→22:03)
[2023-02-06] MEDS: LACTOBACILLUS ACIDOPH & BULGAR 1 EACH PACKET PO SCH (09:37)
[2023-02-06] MEDS: PYRIDOXINE 50 MG TAB PO SCH (09:38)
[2023-02-06] MEDS: THIAMINE 100 MG TAB PO SCH (09:38)
[2023-02-06] MEDS: MULTIVITAMINS, THERA 1 EACH TAB PO SCH (09:38)
[2023-02-06] MEDS: GABAPENTIN 300 MG CAP PO SCH (09:38)
[2023-02-06 10:58] LABS: Glucose,Whole Blood 130 mg/dL (70-110)
[2023-02-06] MEDS ORDERED: Magnesium Replacement Protocol 1 EACH MISC MISCELLANE PRN (11:22)
[2023-02-06] MEDS ORDERED: Potassium Replacement Protocol 1 EACH MISC MISCELLANE PRN (11:22)
[2023-02-06] MEDS: MAGNESIUM SULFATE-D5W PMX 1 GM in DEXTROSE/WATER 1 100ML.BAG IVPB SCH ×2 (11:50→13:42)
--- NOTE | 2023-02-06 14:00 | PN ---
PROGRESS NOTE DATE OF SERVICE: 02/06/2023 SUBJECTIVE: This is a 63-year-old woman who was admitted for reversal of colostomy. Complains of nausea. No chest pain, no palpitations, no fever. The chest x-ray done yesterday showed satisfactory placement of NG tube, some atelectasis and pleural effusion. OBJECTIVE: VITAL SIGNS: Pulse is 71, blood pressure 178/70, and respirations 15. CHEST: Few scattered rhonchi. ABDOMEN: Soft, nontender. NERVOUS SYSTEM: No focal deficits. LABORATORY DATA: Hemoglobin 9.9, magnesium 1.4. ASSESSMENT: 1. Status post reversal of colostomy. 2. Postoperative ileus. 3. Acute postoperative blood loss anemia as expected. 4. Postoperative hypotension. 5. Hypomagnesemia. 6. Multiple medical issues. RECOMMENDATIONS AND DISCUSSION: This 63-year-old woman presented with multiple complex medical issues, we will monitor the patient closely, symptomatic treatment. I would recommend Protonix. Repeat lytes. Repeat labs. Resume the rest of the medications. DVT prophylaxis. Further recommendations to follow. MMODL / IJN: [id number] /
[2023-02-06 16:38] LABS: Glucose,Whole Blood 139 mg/dL (70-110)
[2023-02-06] MEDS: SIMETHICONE 40 MG/0.6 ML DROPS 2,000 MG/30 ML BOTTLE PO SCH ×2 (17:31→20:24)
[2023-02-06] MEDS ORDERED: [UNRECOGNIZED DRUG - OTHER] IV SCH ×10 (20:00)
[2023-02-06] MEDS ORDERED: POTASSIUM CHLORIDE IV SCH ×10 (20:00)
[2023-02-06] MEDS ORDERED: MAGNESIUM SULFATE IV SCH ×10 (20:00)
[2023-02-06 20:20] LABS: Glucose,Whole Blood 132 mg/dL (70-110)
--- NOTE | 2023-02-06 23:37 | P.PN ---
Subjective Progress Note Date: 02/06/23 CHIEF COMPLAINT: Abdominal pain HISTORY OF PRESENT ILLNESS: The patient is a 63-year-old female with bowel obstruction. She is status post colectomy. No passage of flatus. No bowel movements. ROS: No bowel movements. No fevers or chills. No new chest pain. No productive sputum PHYSICAL EXAM: VITAL SIGNS: Reviewed CONSTITUTIONAL: Well developed and in no acute distress. EYES: Conjuctivae without sclera icterus. Extraocular movements grossly intact. HEAD, EARS, NOSE, THROAT: Moist buccal mucosa. Head is atraumatic, normocephalic. Hears conversational speech. No nasal drainage. RESPIRATORY: Non-labored respirations and equal bilateral excursions. CARDIOVASCULAR: Palpable 2+ radial pulses. ABDOMEN: On incision and intact. Has 2 cm dehiscence lower abdomen without active bleeding. No infection. MUSCULOSKELETAL: No gross deformity of the lower extremities noted. No clubbin g. No cyanosis. SKIN: Good skin turgor. Well perfused. NEUROLOGIC: Cranial nerves II through XII grossly intact. No focal or lateralizing signs. PSYCH: Appropriate affect. Alert and oriented to person, place and time. CLINICAL LABS: Reviewed. WBC normal. Hemoglobin below 9.9, anemia ASSESSMENT: 1. Bowel obstruction 2. Anemia PLAN: 1. At this time, continue conservative management. 2. Continue NG tube Objective - Vital Signs Vital signs: Vital Signs Temp 97.8 F 02/06/23 20:21 Pulse 75 02/06/23 20:21 Resp 20 02/06/23 20:21 BP 122/76 02/06/23 20:21 Pulse Ox 94 L 02/06/23 20:21 FiO2 Intake & Output 02/06/23 02/06/23 02/07/23 06:59 18:59 06:59 Intake Total 0 Output Total 100 Balance 0 -100 Weight 55.57 kg Intake: Oral 0 Output: Gastric Drainage 100 Other: Voiding Method External Catheter Diaper # Voids 1 5 1 - Labs CBC & Chem 7: 02/06/23 06:09 02/06/23 06:09 Labs: Abnormal Lab Results - Last 24 Hours (Table) 02/06/23 02/06/23 02/06/23 Range/Units 00:37 05:55 06:09 RBC (4.10-5.20) X 10*6/uL Hgb (12.0-15.0) g/dL Hct (37.2-46.3) % MCHC (32.0-37.0) g/dL RDW (11.5-14.5) % Lymphocytes # (0.90-5.00) X 10*3/uL Eosinophils # (0.04-0.35) X 10*3/uL Carbon Dioxide 31 H (22-30) mmol/L Glucose 126 H (74-99) mg/dL POC Glucose (mg/dL) 129 H 153 H (70-110) mg/dL Calcium 6.7 L (8.4-10.2) mg/dL Magnesium 1.4 L (1.6-2.3) mg/dL 02/06/23 02/06/23 02/06/23 Range/Units 06:09 10:53 16:36 RBC 3.38 L (4.10-5.20) X 10*6/uL Hgb 9.9 L (12.0-15.0) g/dL Hct 31.5 L (37.2-46.3) % MCHC 31.4 L (32.0-37.0) g/dL RDW 16.7 H (11.5-14.5) % Lymphocytes # 0.84 L (0.90-5.00) X 10*3/uL Eosinophils # 0.45 H (0.04-0.35) X 10*3/uL Carbon Dioxide (22-30) mmol/L Glucose (74-99) mg/dL POC Glucose (mg/dL) 130 H 139 H (70-110) mg/dL Calcium (8.4-10.2) mg/dL Magnesium (1.6-2.3) mg/dL 02/06/23 Range/Units 20:19 RBC (4.10-5.20) X 10*6/uL Hgb (12.0-15.0) g/dL Hct (37.2-46.3) % MCHC (32.0-37.0) g/dL RDW (11.5-14.5) % Lymphocytes # (0.90-5.00) X 10*3/uL Eosinophils # (0.04-0.35) X 10*3/uL Carbon Dioxide (22-30) mmol/L Glucose (74-99) mg/dL POC Glucose (mg/dL) 132 H (70-110) mg/dL Calcium (8.4-10.2) mg/dL Magnesium (1.6-2.3) mg/dL
[2023-02-07] MEDS: METOCLOPRAMIDE 5 MG/ML 2 ML VIAL IVP SCH ×5 (01:00→23:33)
[2023-02-07] MEDS: HEPARIN SODIUM,PORCINE/PF 5,000 UNIT/0.5 ML SYRINGE SQ SCH ×4 (01:00→23:33)
[2023-02-07 01:35] LABS: Glucose,Whole Blood 119 mg/dL (70-110)
[2023-02-07 04:56] LABS: African American GFR (CKD) >90 (>60 ml/min/1.73 sqM); Anion Gap 4 mmol/L; Blood Urea Nitrogen 17 mg/dL (7-17); Calcium 6.6 mg/dL (8.4-10.2); Carbon Dioxide 32 mmol/L (22-30); Chloride 102 mmol/L (98-107); Glucose 101 mg/dL (74-99); Magnesium 1.7 mg/dL (1.6-2.3); Non-African American GFR(CKD) >90 (>60 ml/min/1.73 sqM); Phosphorus 3.9 mg/dL (2.5-4.5); Potassium 3.4 mmol/L (3.5-5.1); Sodium 138 mmol/L (137-145)
[2023-02-07] MEDS ORDERED: Potassium Replacement Protocol 1 EACH MISC MISCELLANE PRN ×2 (05:13→06:59)
[2023-02-07] MEDS ORDERED: MAGNESIUM SULFATE-D5W PMX 1 GM in DEXTROSE/WATER 1 100ML.BAG IVPB ONE (05:16)
[2023-02-07] MEDS ORDERED: Magnesium Replacement Protocol 1 EACH MISC MISCELLANE PRN (05:16)
[2023-02-07] MEDS ORDERED: POTASSIUM CHLORIDE 10 MEQ in WATER FOR INJECTION 1 100ML.BAG IVPB SCH (06:00)
[2023-02-07 06:21] LABS: Glucose,Whole Blood 126 mg/dL (70-110)
[2023-02-07] MEDS: LACTATED RINGERS 1,000 ML IV SCH ×2 (06:21→17:18)
[2023-02-07] MEDS: LEVOTHYROXINE 75 MCG TAB PO SCH (06:21)
[2023-02-07] MEDS: MULTIVITAMINS, THERA 1 EACH TAB PO SCH ×2 (08:10→08:15)
[2023-02-07] MEDS: GABAPENTIN 300 MG CAP PO SCH (08:15)
[2023-02-07] MEDS: THIAMINE 100 MG TAB PO SCH (08:15)
[2023-02-07] MEDS: PANTOPRAZOLE 40 MG TABLET PO SCH (08:15)
[2023-02-07] MEDS: POTASSIUM CHLORIDE ER 20 MEQ TAB.ER PO SCH ×2 (08:15→08:18)
[2023-02-07] MEDS: LACTOBACILLUS ACIDOPH & BULGAR 1 EACH PACKET PO SCH (08:16)
[2023-02-07] MEDS: PYRIDOXINE 50 MG TAB PO SCH (08:16)
[2023-02-07] MEDS: SIMETHICONE 40 MG/0.6 ML DROPS 2,000 MG/30 ML BOTTLE PO SCH ×4 (08:16→22:01)
[2023-02-07] MEDS: IPRATROPIUM-ALBUTEROL 3 ML NEB INHALATION SCH ×3 (08:35→20:15)
[2023-02-07 10:39] LABS: Basophils # (A) 0.02 X 10*3/uL (0.00-0.10); Basophils % (A) 0.3 %; Eosinophils # (A) 0.48 X 10*3/uL (0.04-0.35); Eosinophils % (A) 7.1 %; HCT 31.4 % (37.2-46.3); HGB 9.7 g/dL (12.0-15.0); Immature Grans, Automated 0.6 %; Lymphocytes # (A) 0.96 X 10*3/uL (0.90-5.00); Lymphocytes % (A) 14.3 %; MCH 29.2 pg (27.0-32.0); MCHC 30.9 g/dL (32.0-37.0); MCV 94.6 fL (80.0-97.0); Mean Platelet Volume 11.5 fL (9.5-12.2); Monocytes # (A) 0.44 X 10*3/uL (0.20-1.00); Monocytes % (A) 6.5 %; NRBC Per 100 WBC 0 /100 WBCS (0.0-0.0); Neutrophils # (A) 4.78 X 10*3/uL (1.80-7.70); Neutrophils % (A) 71.2 %; Platelet Count 158 X 10*3/uL (140-440); RBC 3.32 X 10*6/uL (4.10-5.20); RDW 16.8 % (11.5-14.5); WBC 6.72 X 10*3/uL (4.50-10.00)
[2023-02-07 11:14] LABS: Glucose,Whole Blood 121 mg/dL (70-110)
[2023-02-07] MEDS: MAGNESIUM SULFATE IV SCH ×6 (12:46)
[2023-02-07] MEDS: CALCIUM GLUCONATE IV SCH ×6 (12:46)
[2023-02-07] MEDS: [UNRECOGNIZED DRUG - OTHER] IV SCH ×6 (12:46)
[2023-02-07] MEDS: POTASSIUM CHLORIDE IV SCH ×6 (12:46)
--- NOTE | 2023-02-07 14:37 | PN ---
PROGRESS NOTE DATE OF SERVICE: 02/07/2023 SUBJECTIVE: This is a 63-year-old woman, who was admitted after reversal of colostomy, still has NG tube. The patient will be closely monitored by Surgery. OBJECTIVE: VITAL SIGNS: Pulse is 78, blood pressure 90/65, respirations 16. CHEST: Clear to auscultation. CARDIOVASCULAR: S1. S2. ABDOMEN: Soft, mild distention. No guarding or rigidity. LABORATORY DATA: Reviewed. ASSESSMENT: 1. Status post reversal of colostomy. 2. Postoperative ileus. 3. Mild hypokalemia. 4. Acute postop blood loss anemia, expected. 5. Postoperative hypotension. 6. Hypomagnesemia. 7. Multiple medical issues. RECOMMENDATIONS AND DISCUSSION: Recommend to continue current management, continue symptomatic treatment. Repeat lytes and I would recommend replace magnesium and potassium per protocol. Closely monitor. Further recommendations to follow. MMODL / IJN: [id number] /
[2023-02-07 17:05] LABS: Glucose,Whole Blood 121 mg/dL (70-110)
[2023-02-07] MEDS ORDERED: POTASSIUM CHLORIDE ER 20 MEQ TAB.ER PO STA (22:54)
[2023-02-08 00:12] LABS: Glucose,Whole Blood 125 mg/dL (70-110)
--- NOTE | 2023-02-08 01:17 | P.PN ---
Subjective Progress Note Date: 02/07/23 CHIEF COMPLAINT: Abdominal pain HISTORY OF PRESENT ILLNESS: The patient is a 63-year-old female who is status post reversal of colostomy. She has drainage of the lower abdominal incision. She had nasogastric tube. No reports of abdominal pain. She has ileus ROS: No bowel movements. No fevers or chills. No new chest pain. No productive sputum PHYSICAL EXAM: VITAL SIGNS: Reviewed CONSTITUTIONAL: Well developed and in no acute distress. EYES: Conjuctivae without sclera icterus. Extraocular movements grossly intact. HEAD, EARS, NOSE, THROAT: Moist buccal mucosa. Head is atraumatic, nor mocephalic. Hears conversational speech. No nasal drainage. NG tube present RESPIRATORY: Non-labored respirations and equal bilateral excursions. CARDIOVASCULAR: Palpable 2+ radial pulses. ABDOMEN: Lower abdominal 2 cm dehiscence with dark bloody drainage. No cellulitis. MUSCULOSKELETAL: No gross deformity of the lower extremities noted. No clubbing. No cyanosis. SKIN: Good skin turgor. Well perfused. NEUROLOGIC: Cranial nerves II through XII grossly intact. No focal or lateralizing signs. PSYCH: Appropriate affect. Alert and oriented to person, place and time. CLINICAL LABS: Reviewed. WBC normal. Hemoglobin below 9.9 to 9.7 anemia ASSESSMENT: 1. Bowel obstruction 2. Anemia 3. Ileus PLAN: 1. Continue NG tube 2. Wound care with ChloraPrep and 4 x 4's advised Objective - Vital Signs Vital signs: Vital Signs Temp 98.3 F 02/07/23 20:00 Pulse 78 02/07/23 20:00 Resp 17 02/07/23 20:00 BP 120/75 02/07/23 20:00 Pulse Ox 94 L 02/07/23 20:00 FiO2 Intake & Output 02/07/23 02/07/23 02/08/23 06:59 18:59 06:59 Output Total 100 Balance -100 Output: Gastric Drainage 100 Other: # Voids 1 1 - Labs CBC & Chem 7: 02/07/23 04:30 02/07/23 18:52 Labs: Abnormal Lab Results - Last 24 Hours (Table) 02/07/23 02/07/23 02/07/23 Range/Units 01:32 04:30 04:30 RBC 3.32 L (4.10-5.20) X 10*6/uL Hgb 9.7 L (12.0-15.0) g/dL Hct 31.4 L (37.2-46.3) % MCHC 30.9 L (32.0-37.0) g/dL RDW 16.8 H (11.5-14.5) % Eosinophils # 0.48 H (0.04-0.35) X 10*3/uL Potassium 3.4 L (3.5-5.1) mmol/L Carbon Dioxide 32 H (22-30) mmol/L Glucose 101 H (74-99) mg/dL POC Glucose (mg/dL) 119 H (70-110) mg/dL Calcium 6.6 L (8.4-10.2) mg/dL 02/07/23 02/07/23 02/07/23 Range/Units 06:19 11:11 17:04 RBC (4.10-5.20) X 10*6/uL Hgb (12.0-15.0) g/dL Hct (37.2-46.3) % MCHC (32.0-37.0) g/dL RDW (11.5-14.5) % Eosinophils # (0.04-0.35) X 10*3/uL Potassium (3.5-5.1) mmol/L Carbon Dioxide (22-30) mmol/L Glucose (74-99) mg/dL POC Glucose (mg/dL) 126 H 121 H 121 H (70-110) mg/dL Calcium (8.4-10.2) mg/dL 02/08/23 Range/Units 00:11 RBC (4.10-5.20) X 10*6/uL Hgb (12.0-15.0) g/dL Hct (37.2-46.3) % MCHC (32.0-37.0) g/dL RDW (11.5-14.5) % Eosinophils # (0.04-0.35) X 10*3/uL Potassium (3.5-5.1) mmol/L Carbon Dioxide (22-30) mmol/L Glucose (74-99) mg/dL POC Glucose (mg/dL) 125 H (70-110) mg/dL Calcium (8.4-10.2) mg/dL
[2023-02-08] MEDS: CALCIUM GLUCONATE IV SCH ×12 (05:45→21:26)
[2023-02-08] MEDS: MAGNESIUM SULFATE IV SCH ×12 (05:45→21:26)
[2023-02-08] MEDS: POTASSIUM CHLORIDE IV SCH ×12 (05:45→21:26)
[2023-02-08] MEDS: [UNRECOGNIZED DRUG - OTHER] IV SCH ×12 (05:45→21:26)
[2023-02-08] MEDS: LACTATED RINGERS 1,000 ML IV SCH (05:50)
[2023-02-08 05:52] LABS: Glucose,Whole Blood 89 mg/dL (70-110)
[2023-02-08] MEDS: LEVOTHYROXINE 75 MCG TAB PO SCH (05:54)
[2023-02-08] MEDS: PANTOPRAZOLE 40 MG TABLET PO SCH (05:54)
[2023-02-08] MEDS: METOCLOPRAMIDE 5 MG/ML 2 ML VIAL IVP SCH ×3 (05:54→17:27)
[2023-02-08 06:44] LABS: Phosphorus 4.1 mg/dL (2.5-4.5)
[2023-02-08] MEDS: IPRATROPIUM-ALBUTEROL 3 ML NEB INHALATION SCH ×3 (07:49→20:42)
[2023-02-08] MEDS: GABAPENTIN 300 MG CAP PO SCH (08:08)
[2023-02-08] MEDS: THIAMINE 100 MG TAB PO SCH (08:08)
[2023-02-08] MEDS: SIMETHICONE 40 MG/0.6 ML DROPS 2,000 MG/30 ML BOTTLE PO SCH ×4 (08:08→21:27)
[2023-02-08] MEDS: MULTIVITAMINS, THERA 1 EACH TAB PO SCH (08:08)
[2023-02-08] MEDS: PYRIDOXINE 50 MG TAB PO SCH (08:08)
[2023-02-08] MEDS: HEPARIN SODIUM,PORCINE/PF 5,000 UNIT/0.5 ML SYRINGE SQ SCH ×2 (08:08→15:43)
[2023-02-08] MEDS: LACTOBACILLUS ACIDOPH & BULGAR 1 EACH PACKET PO SCH (08:08)
[2023-02-08 09:00] LABS: Basophils # (A) 0.02 X 10*3/uL (0.00-0.10); Basophils % (A) 0.3 %; Eosinophils % (A) 7.4 %; HCT 30.2 % (37.2-46.3); HGB 9.5 g/dL (12.0-15.0); Immature Grans, Automated 0.3 %; Lymphocytes # (A) 0.96 X 10*3/uL (0.90-5.00); Lymphocytes % (A) 14.2 %; MCH 29.3 pg (27.0-32.0); MCHC 31.5 g/dL (32.0-37.0); MCV 93.2 fL (80.0-97.0); Mean Platelet Volume 10.9 fL (9.5-12.2); Monocytes # (A) 0.48 X 10*3/uL (0.20-1.00); Monocytes % (A) 7.1 %; NRBC Per 100 WBC 0 /100 WBCS (0.0-0.0); Neutrophils # (A) 4.78 X 10*3/uL (1.80-7.70); Neutrophils % (A) 70.7 %; Platelet Count 162 X 10*3/uL (140-440); RBC 3.24 X 10*6/uL (4.10-5.20); RDW 16.7 % (11.5-14.5); WBC 6.76 X 10*3/uL (4.50-10.00)
[2023-02-08 11:24] LABS: Glucose,Whole Blood 122 mg/dL (70-110)
--- NOTE | 2023-02-08 12:00 | P.PN ---
Subjective Progress Note Date: 02/08/23 The patient's nurse states that she had 2 separate times of flatus yesterday. The patient appears to be less distended today. Patient has a postoperative ileus. She has had minimal output through NG tube. Hopefully her bowel function will improve. CHIEF COMPLAINT: History of colonic obstruction HISTORY OF PRESENT ILLNESS: Patient is postop day #10 status post exploratory laparotomy, takedown colostomy, takedown splenic flexure, partial colectomy, repair of incisional hernia, lysis of adhesions and partial omentectomy. She is on TPN for nutrition support. Patient denies any abdominal pain. No bowel activity. She does report occasional nausea. NG tube with 100 mL dark output. She does have dark blood draining from lower incision. Likely old blood. Afebrile. WBC 6.76 Hgb stable at 9.5 plt 162 phos 4.1 Patient seen and examined with Dr. coto PHYSICAL EXAM: VITAL SIGNS: Reviewed. GENERAL: Well-developed in no acute distress. ABDOMEN: Distended. Nontender. Lower incision draining dark blood ASSESSMENT: 1. History of Colonic obstruction status post colostomy reversal 2. Postoperative ileus expected due to chronic medical condition PLAN: -NG tube placed for decompression -Keep patient nothing by mouth -Continue TPN for nutrition support -Continue to monitor incision site -Continue monitor electrolytes -Continue Reglan -Continue antiemetics -Continue pain management -Encourage patient to use incentive spirometer -GI prophylaxis Protonix and DVT prophylaxis subcu heparin Physician Rotary Shear Worker Helper note has been reviewed by physician. Signing provider agrees with the documented findings, assessment, and plan of care. Objective - Vital Signs Vital signs: Vital Signs Temp 98.3 F 02/08/23 07:22 Pulse 78 02/08/23 07:22 Resp 15 02/08/23 07:22 BP 112/71 02/08/23 07:22 Pulse Ox 96 02/08/23 07:22 FiO2 Intake & Output 02/07/23 02/08/23 02/08/23 18:59 06:59 18:59 Intake Total 2639 Output Total 100 Balance 2539 Intake: Intake, IV Titration 2639 Amount Lactated Ringers 1,000 ml 900 @ 75 mls/hr IV .[id number] [facility] Rx#:[id number] Potassium Chloride 20 meq 1019 Magnesium Sulfate gm 1 gm Calcium Gluconate 1 gm In Amino Acid 5%-D20w+ Lytes*E* 1,000 ml @ 60 mls/hr IV .BY DURATION [facility] Rx#:[id number] Potassium Chloride 20 meq 720 Magnesium Sulfate gm 1 gm In Amino Acid 5%-D20w+ Lytes*E* 1,000 ml @ 60 mls/hr IV .BY DURATION [facility] Rx#:[id number] Output: Gastric Drainage 100 Other: Voiding Method Diaper Diaper Incontinent Incontinent # Voids 1 4 1 - Labs CBC & Chem 7: 02/08/23 06:08 02/08/23 06:08 Labs: Abnormal Lab Results - Last 24 Hours (Table) 02/07/23 02/07/23 02/08/23 Range/Units 11:11 17:04 00:11 RBC (4.10-5.20) X 10*6/uL Hgb (12.0-15.0) g/dL Hct (37.2-46.3) % MCHC (32.0-37.0) g/dL RDW (11.5-14.5) % Eosinophils # (0.04-0.35) X 10*3/uL POC Glucose (mg/dL) 121 H 121 H 125 H (70-110) mg/dL 02/08/23 Range/Units 06:08 RBC 3.24 L (4.10-5.20) X 10*6/uL Hgb 9.5 L (12.0-15.0) g/dL Hct 30.2 L (37.2-46.3) % MCHC 31.5 L (32.0-37.0) g/dL RDW 16.7 H (11.5-14.5) % Eosinophils # 0.50 H (0.04-0.35) X 10*3/uL POC Glucose (mg/dL) (70-110) mg/dL
[2023-02-08 12:17] LABS: African American GFR (CKD) >90 (>60 ml/min/1.73 sqM); Anion Gap 6 mmol/L; Blood Urea Nitrogen 19 mg/dL (7-17); Carbon Dioxide 27 mmol/L (22-30); Chloride 103 mmol/L (98-107); Glucose 106 mg/dL (74-99); Magnesium 1.7 mg/dL (1.6-2.3); Non-African American GFR(CKD) >90 (>60 ml/min/1.73 sqM); Potassium 4.1 mmol/L (3.5-5.1); Sodium 136 mmol/L (137-145)
[2023-02-08] MEDS ORDERED: MAGNESIUM SULFATE-D5W PMX 1 GM in DEXTROSE/WATER 1 100ML.BAG IVPB ONE (13:28)
[2023-02-08 16:43] LABS: Glucose,Whole Blood 141 mg/dL (70-110)
[2023-02-08] MEDS: FAT EMULSION 20% 250 ML in EMPTY BAG 1 BAG IV SCH (17:28)
[2023-02-09] MEDS: METOCLOPRAMIDE 5 MG/ML 2 ML VIAL IVP SCH ×5 (00:09→23:43)
[2023-02-09] MEDS: HEPARIN SODIUM,PORCINE/PF 5,000 UNIT/0.5 ML SYRINGE SQ SCH ×4 (00:09→23:44)
[2023-02-09] MEDS: LACTATED RINGERS 1,000 ML IV SCH ×2 (00:09→08:39)
[2023-02-09 01:03] LABS: Glucose,Whole Blood 119 mg/dL (70-110)
[2023-02-09] MEDS: LEVOTHYROXINE 75 MCG TAB PO SCH (06:03)
[2023-02-09] MEDS: PANTOPRAZOLE 40 MG TABLET PO SCH (06:03)
[2023-02-09 06:20] LABS: Glucose,Whole Blood 121 mg/dL (70-110)
[2023-02-09 07:32] LABS: ALT 16 U/L (4-34); AST 30 U/L (14-36); African American GFR (CKD) >90 (>60 ml/min/1.73 sqM); Albumin 2.3 g/dL (3.5-5.0); Alkaline Phosphatase 71 U/L (38-126); Anion Gap 3 mmol/L; Blood Urea Nitrogen 19 mg/dL (7-17); Calcium 7.3 mg/dL (8.4-10.2); Carbon Dioxide 32 mmol/L (22-30); Chloride 101 mmol/L (98-107); Globulin 2.3 g/dL; Glucose 105 mg/dL (74-99); Magnesium 1.8 mg/dL (1.6-2.3); Non-African American GFR(CKD) >90 (>60 ml/min/1.73 sqM); Phosphorus 4.4 mg/dL (2.5-4.5); Potassium 4.4 mmol/L (3.5-5.1); Sodium 136 mmol/L (137-145); Total Bilirubin 0.4 mg/dL (0.2-1.3); Total Protein 4.6 g/dL (6.3-8.2)
[2023-02-09] MEDS: GABAPENTIN 300 MG CAP PO SCH (08:37)
[2023-02-09] MEDS: LACTOBACILLUS ACIDOPH & BULGAR 1 EACH PACKET PO SCH (08:37)
[2023-02-09] MEDS: THIAMINE 100 MG TAB PO SCH (08:37)
[2023-02-09] MEDS: PYRIDOXINE 50 MG TAB PO SCH (08:37)
[2023-02-09] MEDS: SIMETHICONE 40 MG/0.6 ML DROPS 2,000 MG/30 ML BOTTLE PO SCH ×4 (08:38→22:51)
[2023-02-09] MEDS: IPRATROPIUM-ALBUTEROL 3 ML NEB INHALATION SCH ×3 (08:43→20:36)
--- NOTE | 2023-02-09 09:46 | PN ---
PROGRESS NOTE DATE OF SERVICE: 02/08/2023 SUBJECTIVE: This is a 63-year-old woman, who was admitted after reversal of colostomy, still NG tube. No chest pain. No palpitations. The patient has postoperative ileus. OBJECTIVE: VITAL SIGNS: Pulse is 78, blood pressure 120/70, respirations 15. CHEST: Clear to auscultation. CARDIOVASCULAR: S1, S2 ABDOMEN: Soft, mild distention, nontender. LABORATORY DATA: Reviewed. ASSESSMENT: 1. Status post reversal of colostomy. 2. Postoperative ileus. 3. Mild hypokalemia, improved. 4. Acute postop blood loss anemia, expected. 5. Postoperative hypotension, improved. 6. Hypomagnesemia. 7. Multiple medical issues. RECOMMENDATIONS AND DISCUSSION: Recommend to continue current medications, continue symptomatic treatment. Repeat labs in the morning. Closely follow with Surgery. Further recommendations to follow. MMODL / IJN: [id number] /
[2023-02-09 10:53] LABS: Basophils # (A) 0.02 X 10*3/uL (0.00-0.10); Basophils % (A) 0.2 %; Eosinophils # (A) 0.46 X 10*3/uL (0.04-0.35); Eosinophils % (A) 5.6 %; HCT 33.1 % (37.2-46.3); HGB 9.8 g/dL (12.0-15.0); Immature Grans, Automated 0.2 %; Lymphocytes # (A) 0.87 X 10*3/uL (0.90-5.00); Lymphocytes % (A) 10.5 %; MCH 28.5 pg (27.0-32.0); MCHC 29.6 g/dL (32.0-37.0); MCV 96.2 fL (80.0-97.0); Mean Platelet Volume 11.7 fL (9.5-12.2); Monocytes # (A) 0.51 X 10*3/uL (0.20-1.00); Monocytes % (A) 6.2 %; NRBC Per 100 WBC 0 /100 WBCS (0.0-0.0); Neutrophils # (A) 6.37 X 10*3/uL (1.80-7.70); Neutrophils % (A) 77.3 %; Platelet Count 158 X 10*3/uL (140-440); RBC 3.44 X 10*6/uL (4.10-5.20); WBC 8.25 X 10*3/uL (4.50-10.00)
[2023-02-09 11:55] LABS: Glucose,Whole Blood 127 mg/dL (70-110)
--- NOTE | 2023-02-09 13:13 | XR ---
EXAMINATION TYPE: XR chest 1V portable DATE OF EXAM: 02/09/2023 COMPARISON: 02/05/2023 HISTORY: Shortness of breath TECHNIQUE: Single frontal view of the chest is obtained. FINDINGS: There is bilateral subsegmental consolidation with small left. PICC line is seen in positi on. NG tube stable. Worsening in the left upper quadrant of the abdomen. No overt failure or pneumoth orax. Hypertrophic change of the AC joint on the left. Atherosclerotic change aorta. Underlying COPD is IMPRESSION: 1. Left lower lobe infiltrate and small bilateral effusions stable.
--- NOTE | 2023-02-09 14:20 | PN ---
PROGRESS NOTE DATE OF SERVICE: 02/09/2023 SUBJECTIVE: This is a 63-year-old woman who was admitted with reversal of colostomy, still has some abdominal distention with NG tube also. The patient had some NG aspirate as well. OBJECTIVE: VITAL SIGNS: Pulse is 82, blood pressure 119/67, respirations 16. CHEST: Clear to auscultation. CARDIOVASCULAR: S1, S2 muffled. ABDOMEN: Soft, distended. LABS: Hemoglobin 9.8, sodium is 136. ASSESSMENT: 1. Status post reversal of colostomy. 2. Postoperative ileus. 3. Mild hypokalemia, improved. 4. Acute postoperative blood loss anemia as expected. 5. Positive hypertension, improved. 6. Hypomagnesemia. 7. Multiple medical issues. RECOMMENDATIONS AND DISCUSSION: Recommended to continue current medications, continue symptomatic treatment. Otherwise, recommend repeat labs. Closely follow with surgery. Further recommendations to follow. MMODL / IJN: [id number] /
--- NOTE | 2023-02-09 16:13 | P.PN ---
Subjective Progress Note Date: 02/09/23 CHIEF COMPLAINT: History of colonic obstruction HISTORY OF PRESENT ILLNESS: Patient is postop day #11 status post exploratory laparotomy, takedown colostomy, takedown splenic flexure, partial colectomy, re pair of incisional hernia, lysis of adhesions and partial omentectomy. She is on TPN for nutrition support. Patient denies any abdominal pain. Patient reports small amount of flatus. No bowel movement. NG tube with 225 mL output through the night. Afebrile. W sees a 0.2 5HB9.8 Patient seen and examined with Dr. coto PHYSICAL EXAM: VITAL SIGNS: Reviewed. GENERAL: Well-developed in no acute distress. ABDOMEN: Less Distended. Nontender. No further bleeding noted at the distal of aspect of the incision ASSESSMENT: 1. History of Colonic obstruction status post colostomy reversal 2. Postoperative ileus expected due to chronic medical condition PLAN: -NG tube placed for decompression -Keep patient nothing by mouth except for ice chips and medications -Continue TPN for nutrition support -Continue to monitor incision site -Continue monitor electrolytes -Continue Reglan -Continue antiemetics -Continue pain management -Encourage patient to use incentive spirometer -GI prophylaxis Protonix and DVT prophylaxis subcu heparin Physician Supervisor Air Conditioning Installer note has been reviewed by physician. Signing provider agrees with the documented findings, assessment, and plan of care. Objective - Vital Signs Vital signs: Vital Signs Temp 98.7 F 02/09/23 08:00 Pulse 82 02/09/23 08:00 Resp 16 02/09/23 08:00 BP 121/73 02/09/23 08:00 Pulse Ox 92 L 02/09/23 08:00 FiO2 Intake & Output 02/08/23 02/09/23 02/09/23 18:59 06:59 18:59 Intake Total 1690 480 Output Total 225 150 Balance 1465 330 Weight 55.57 kg Intake: Intake, IV Titration 1690 480 Amount Fat Emulsion 20% 250 ml 250 In Empty Bag 1 bag @ 21 mls/hr IV [facility]Th [facility] Rx#: [id number] Lactated Ringers 1,000 ml 900 @ 75 mls/hr IV .[id number] [facility] Rx#:[id number] Mvi, Adult No.4 with Vit 540 480 K 10 ml Trace (Conc-1Ml/ Dose) 1 ml Potassium Chloride 20 meq Magnesium Sulfate gm 1 gm Calcium Gluconate 1 gm In Amino Acid 5%-D20w+Lytes*E* 1, 000 ml @ 60 mls/hr IV .BY DURATION [facility] Rx#: [id number] Output: Gastric Drainage 225 150 Other: Voiding Method Diaper Diaper Incontinent # Voids 6 3 - Labs CBC & Chem 7: 02/09/23 06:32 02/09/23 06:32 Labs: Abnormal Lab Results - Last 24 Hours (Table) 02/08/23 02/09/23 02/09/23 Range/Units 16:42 01:01 06:19 RBC (4.10-5.20) X 10*6/uL Hgb (12.0-15.0) g/dL Hct (37.2-46.3) % MCHC (32.0-37.0) g/dL RDW (11.5-14.5) % Lymphocytes # (0.90-5.00) X 10*3/uL Eosinophils # (0.04-0.35) X 10*3/uL Sodium (137-145) mmol/L Carbon Dioxide (22-30) mmol/L BUN (7-17) mg/dL Glucose (74-99) mg/dL POC Glucose (mg/dL) 141 H 119 H 121 H (70-110) mg/dL Calcium (8.4-10.2) mg/dL Total Protein (6.3-8.2) g/dL Albumin (3.5-5.0) g/dL 02/09/23 02/09/23 02/09/23 Range/Units 06:32 06:32 11:54 RBC 3.44 L (4.10-5.20) X 10*6/uL Hgb 9.8 L (12.0-15.0) g/dL Hct 33.1 L (37.2-46.3) % MCHC 29.6 L (32.0-37.0) g/dL RDW 17.0 H (11.5-14.5) % Lymphocytes # 0.87 L (0.90-5.00) X 10*3/uL Eosinophils # 0.46 H (0.04-0.35) X 10*3/uL Sodium 136 L (137-145) mmol/L Carbon Dioxide 32 H (22-30) mmol/L BUN 19 H (7-17) mg/dL Glucose 105 H (74-99) mg/dL POC Glucose (mg/dL) 127 H (70-110) mg/dL Calcium 7.3 L (8.4-10.2) mg/dL Total Protein 4.6 L (6.3-8.2) g/dL Albumin 2.3 L (3.5-5.0) g/dL
[2023-02-09 16:48] LABS: Glucose,Whole Blood 110 mg/dL (70-110)
[2023-02-09] MEDS: MAGNESIUM SULFATE IV SCH ×6 (17:33)
[2023-02-09] MEDS: CALCIUM GLUCONATE IV SCH ×6 (17:33)
[2023-02-09] MEDS: [UNRECOGNIZED DRUG - OTHER] IV SCH ×6 (17:33)
[2023-02-09] MEDS: POTASSIUM CHLORIDE IV SCH ×6 (17:33)
[2023-02-10 00:17] LABS: Glucose,Whole Blood 113 mg/dL (70-110)
[2023-02-10] MEDS: LACTATED RINGERS 1,000 ML IV SCH ×2 (01:36→15:35)
[2023-02-10 06:21] LABS: Glucose,Whole Blood 123 mg/dL (70-110)
[2023-02-10] MEDS: PANTOPRAZOLE 40 MG TABLET PO SCH (06:36)
[2023-02-10] MEDS: LEVOTHYROXINE 75 MCG TAB PO SCH (06:36)
[2023-02-10] MEDS: METOCLOPRAMIDE 5 MG/ML 2 ML VIAL IVP SCH ×3 (06:37→17:37)
[2023-02-10] MEDS: IPRATROPIUM-ALBUTEROL 3 ML NEB INHALATION SCH ×3 (08:17→20:28)
[2023-02-10 09:25] LABS: African American GFR (CKD) 108.6 (60.0-200.0); Anion Gap 6.5 mmol/L (10.00-18.00); BUN/Creat Ratio 27.61 Ratio (12.00-20.00); Calcium 7.6 mg/dL (8.7-10.3); Carbon Dioxide 30.1 mmol/L (20.0-27.5); Magnesium 1.8 mg/dL (1.5-2.4); Non-African American GFR(CKD) 93.7 (60.0-200.0); Phosphorus 4.6 mg/dL (2.4-5.1); Potassium 4.3 mmol/L (3.5-5.5); Triglycerides 81.7 mg/dL (0.00-149.00)
[2023-02-10] MEDS: PYRIDOXINE 50 MG TAB PO SCH (11:01)
[2023-02-10] MEDS: HEPARIN SODIUM,PORCINE/PF 5,000 UNIT/0.5 ML SYRINGE SQ SCH ×2 (11:01→16:21)
[2023-02-10] MEDS: GABAPENTIN 300 MG CAP PO SCH (11:01)
[2023-02-10] MEDS: ONDANSETRON 4 MG/2 ML VIAL IVP PRN (11:01)
[2023-02-10] MEDS: THIAMINE 100 MG TAB PO SCH (11:01)
[2023-02-10] MEDS: LACTOBACILLUS ACIDOPH & BULGAR 1 EACH PACKET PO SCH (11:01)
[2023-02-10] MEDS: SIMETHICONE 40 MG/0.6 ML DROPS 2,000 MG/30 ML BOTTLE PO SCH ×4 (11:02→22:39)
[2023-02-10] MEDS: [UNRECOGNIZED DRUG - OTHER] IV SCH ×6 (11:02)
[2023-02-10] MEDS: MAGNESIUM SULFATE IV SCH ×6 (11:02)
[2023-02-10] MEDS: CALCIUM GLUCONATE IV SCH ×6 (11:02)
[2023-02-10] MEDS: MULTIVITAMINS, THERA 1 EACH TAB PO SCH (11:02)
[2023-02-10] MEDS: POTASSIUM CHLORIDE IV SCH ×6 (11:02)
[2023-02-10 11:23] LABS: Glucose,Whole Blood 100 mg/dL (70-110)
--- NOTE | 2023-02-10 13:55 | P.PN ---
Subjective Progress Note Date: 02/10/23 This is a 63-year-old female admitted under surgery services and recently underwent exploratory laparotomy, takedown splenic flexure, takedown colostomy, partial colectomy and repair of incisional hernia with extensive lysis of adhesions as well as a partial omentectomy. Patient continues with abdominal distention and NG tube although reports is improved. Per patient she reports to feeling better and is passing gas and denies bowel movement and there are plans for possible NG tube removal. Patient has had prolonged hospitalization and currently continued on TPN. Patient with history of COPD and denies shortness of breath. Patient did have chest x-ray yesterday showing left lower lobe infiltrate and small bilateral effusions stable with no overt failure or pneumothorax noted. Encourage incentive spirometer use at least 10 times every hour while awake and patient has been refusing reporting she does not need that. Patient is currently afebrile with no reports of chest pain or shortness of breath and reports to feeling hungry and is maintained on ice chips only per surgery recommendations Review of systems: Constitutional: No reports of fatigue, fever, or chills Cardiovascular: No reports of chest pain or palpitations Respiratory: No reports of shortness of breath or cough GI: No reports of nausea, no reports of vomiting, reports passing gas with no bowel movement : No reports of dysuria or retention Neurovascular: reports of generalized weakness All medications have been reviewed Active Medications Hydrocodone Bitart/Acetaminophen (Hydrocodone/Apap 5-325mg 1 Each Tab) 1 each PO Q4HR PRN PRN Reason: Pain Last Admin: 02/04/23 05:49 Dose: 1 each Albuterol/Ipratropium (Ipratropium-Albuterol 3 Ml Neb) 3 ml INHALATION RT-Q8H PRN PRN Reason: Wheezing Albuterol/Ipratropium (Ipratropium-Albuterol 3 Ml Neb) 3 ml INHALATION RT-TID [facility] Last Admin: 02/10/23 11:40 Dose: Not Given Gabapentin (Gabapentin 300 Mg Cap) 300 mg PO DAILY [facility]K Last Admin: 02/10/23 11:01 Dose: 300 mg Heparin Sodium (Porcine) (Heparin Sodium,Porcine/Pf 5,000 Unit/0.5 Ml Syringe) 5,000 unit SQ Q8HR AMREK Last Admin: 02/10/23 11:01 Dose: 5,000 unit Hydromorphone HCl (Hydromorphone 1 Mg/Ml 1 Ml Syringe) 1 mg IVP Q3HR PRN PRN Reason: Pain Last Admin: 02/05/23 19:58 Dose: 1 mg Ropivacaine 250 mg/Hydromorphone HCl 5 mg/ Sodium Chloride 250 mls @ 0 mls/hr EPIDURAL .Q0M PRN; Protocol PRN Reason: Pain Control Last Admin: 01/31/23 11:19 Dose: 5 mls/hr Lactated Ringer's (Lactated Ringers) 1,000 mls @ 75 mls/hr IV .[id number] COUNTS INCLUDE 234 BEDS AT THE [facility] Last Admin: 02/10/23 01:36 Dose: 75 mls/hr Fat Emulsion Intravenous 250 (ml/ IV Solution) 250 mls @ 21 mls/hr IV MoTh COUNTS INCLUDE 234 BEDS AT THE [facility] Last Admin: 02/08/23 17:28 Dose: 21 mls/hr Potassium Chloride 20 meq/Magnesium Sulfate 1 gm/Calcium Gluconate 1 gm/ Amino Ac/Electrol/Dextrose/Calcium 1,022 mls @ 60 mls/hr IV .BY DURATION COUNTS INCLUDE 234 BEDS AT THE [facility] Last Admin: 02/10/23 11:02 Dose: 60 mls/hr Parenteral Vitamin Supplement 10 ml/ Zinc/Copper/Manganese/Selenium 1 ml/ Potassium Chloride 20 meq/ Magnesium Sulfate 1 gm/ Calcium Gluconate 1 gm/ Amino Ac/Electrol/Dextrose/Calcium 1,033 mls @ 60 mls/hr IV .BY DURATION COUNTS INCLUDE 234 BEDS AT THE [facility] Last Admin: 02/08/23 21:26 Dose: 60 mls/hr Lactobacillus Acidoph/Bulgaricus (Lactobacillus Acidoph & Bulgar 1 Each Packet) 1 each PO DAILY COUNTS INCLUDE 234 BEDS AT THE [facility] Last Admin: 02/10/23 11:01 Dose: 1 each Levothyroxine Sodium (Levothyroxine 75 Mcg Tab) 75 mcg PO DAILY@0630 COUNTS INCLUDE 234 BEDS AT THE [facility] Last Admin: 02/10/23 06:36 Dose: 75 mcg Metoclopramide HCl (Metoclopramide 5 Mg/Ml 2 Ml Vial) 10 mg IVP Q6HR COUNTS INCLUDE 234 BEDS AT THE [facility] Last Admin: 02/10/23 12:36 Dose: 10 mg Miscellaneous Information (Magnesium Replacement Protocol 1 Each Misc) 1 each MISCELLANE DAILY PRN; Protocol PRN Reason: Per Protocol Miscellaneous Information (Potassium Replacement Protocol 1 Each Misc) 1 each MISCELLANE DAILY PRN; Protocol PRN Reason: Per Protocol Multivitamins (Multivitamins, Thera 1 Each Tab) 1 each PO DAILY COUNTS INCLUDE 234 BEDS AT THE [facility] Last Admin: 02/10/23 11:02 Dose: 1 each Naloxone HCl (Naloxone 0.4 Mg/Ml 1 Ml Vial) 0.2 mg IV Q2M PRN PRN Reason: Opioid Reversal Ondansetron HCl (Ondansetron 4 Mg/2 Ml Vial) 4 mg IVP Q6HR PRN PRN Reason: Nausea And Vomiting Last Admin: 02/10/23 11:01 Dose: 4 mg Pantoprazole Sodium (Pantoprazole 40 Mg Tablet) 40 mg PO AC-BRKFST COUNTS INCLUDE 234 BEDS AT THE [facility] Last Admin: 02/10/23 06:36 Dose: 40 mg Pyridoxine HCl (Pyridoxine 50 Mg Tab) 100 mg PO DAILY COUNTS INCLUDE 234 BEDS AT THE [facility] Last Admin: 02/10/23 11:01 Dose: 100 mg Simethicone (Simethicone 40 Mg/0.6 Ml Drops 2,000 Mg/30 Ml Bottle) 40 mg PO QID COUNTS INCLUDE 234 BEDS AT THE [facility] Last Admin: 02/10/23 12:36 Dose: 40 mg Thiamine HCl (Thiamine 100 Mg Tab) 100 mg PO DAILY COUNTS INCLUDE 234 BEDS AT THE [facility] Last Admin: 02/10/23 11:01 Dose: 100 mg PHYSICAL EXAMINATION: GENERAL: The patient is alert and oriented x3, thin built, elderly appearing, appears much older than stated age HEENT: Pupils are round and equally reacting to light. EOMI. no scleral icterus. No conjunctival pallor. Normocephalic, atraumatic. No pharyngeal erythema. No thyromegaly. CARDIOVASCULAR: S1 and S2 muffled PULMONARY: diminished breath sounds bilaterally with some scattered rhonchi noted. ABDOMEN: soft. Mildly tender on exam. obese. Somewhat distended, normoactive bowel sounds. No palpable organomegaly. MUSCULOSKELETAL: No joint swelling or deformity. EXTREMITIES: No cyanosis, clubbing, or pedal edema. NEUROLOGICAL: Gross neurological examination did not reveal any focal deficits. Diffuse weakness SKIN: No rashes. Assessment: Status post reversal of colostomy Postoperative ileus, expected due to chronic medical condition Mild hypokalemia, improved COPD history, not an exacerbation Acute postoperative blood loss anemia as expected Hypertension Hypomagnesemia History of osteoarthritis History of pulmonary embolism GERD Continued ongoing nicotine dependence GI prophylaxis DVT prophylaxis Full code Plan: Recommend to continue with current medications and management per general surgery services. Patient is continued on TPN and does have a PICC line and darryl l continue. Patient is currently maintained on ice chips only and does have an NG tube although nursing staff reports there is an order remove the NG tube today Patient does have abdominal binder and recommend continue with increased activity as tolerated. Recommend PT/OT therapy evaluation Patient will be going to ECF once stabilized Patient is passing gas but has not had a bowel movement yet and will leave advancing diet to surgery recommendations as patient is asking for food Encouraged incentive spirometer use at least 10 times every hour while awake and patient reports she does not need this and reports she has COPD. Patient denies shortness of breath and reports she does not need breathing treatments Recommend follow-up labs in a.m. and we will continue to follow with general surgery during hospitalization Thank you kindly for this consultation The impression and plan of care has been dictated by Lida Singh, nurse practitioner as directed. Dr. Greyson MD I have performed a history and examination and MDM of this patient, discussed the same with the dictator, and agree with the dictator's assessment and plan as written ,documented as a scribe. Based on total visit time, I have performed more than 50% of the visit. Any additional findings or plans will be noted. Objective - Vital Signs Vital signs: Vital Signs Temp 98.2 F 02/10/23 07:13 Pulse 88 02/10/23 07:13 Resp 17 02/10/23 07:13 BP 121/75 02/10/23 07:13 Pulse Ox 95 02/10/23 07:13 FiO2 Intake & Output 02/09/23 02/10/23 02/10/23 18:59 06:59 18:59 Intake Total 480 1022 Output Total 150 350 Balance 330 -350 1022 Weight 55.57 kg Intake: Intake, IV Titration 480 1022 Amount Mvi, Adult No.4 with Vit 480 K 10 ml Trace (Conc-1Ml/ Dose) 1 ml Potassium Chloride 20 meq Magnesium Sulfate gm 1 gm Calcium Gluconate 1 gm In Amino Acid 5%-D20w+Lytes*E* 1, 000 ml @ 60 mls/hr IV .BY DURATION COUNTS INCLUDE 234 BEDS AT THE [facility] Rx#: [id number] Potassium Chloride 20 meq 1022 Magnesium Sulfate gm 1 gm Calcium Gluconate 1 gm In Amino Acid 5%-D20w+ Lytes*E* 1,000 ml @ 60 mls/hr IV .BY DURATION COUNTS INCLUDE 234 BEDS AT THE [facility] Rx#:[id number] Output: Gastric Drainage 150 350 Other: Voiding Method Diaper # Voids 2 - Labs CBC & Chem 7: 02/09/23 06:32 02/10/23 05:36 Labs: Abnormal Lab Results - Last 24 Hours (Table) 02/10/23 02/10/23 02/10/23 Range/Units 00:15 05:36 06:19 Carbon Dioxide 30.1 H (20.0-27.5) mmol/L Anion Gap 6.50 L (10.00-18.00) mmol/L BUN/Creatinine Ratio 27.61 H (12.00-20.00) Ratio Glucose 121 H (70-110) mg/dL POC Glucose (mg/dL) 113 H 123 H (70-110) mg/dL Calcium 7.6 L (8.7-10.3) mg/dL
--- NOTE | 2023-02-10 14:01 | P.PN ---
Subjective Progress Note Date: 02/10/23 CHIEF COMPLAINT: History of colonic obstruction HISTORY OF PRESENT ILLNESS: Patient is postop day #12 status post exploratory laparotomy, takedown colostomy, takedown splenic flexure, partial colectomy, re pair of incisional hernia, lysis of adhesions and partial omentectomy. She is on TPN for nutrition support. Patient denies any abdominal pain. Patient appears less distended. She is having flatus. No bowel movement. She does complain of nausea. She complains that the NG tube is causing her to be nauseous. Afebrile. Chest x-ray shows left lower lobe infiltrate and small bilateral effusions stable. Patient seen and examined with Dr. coto PHYSICAL EXAM: VITAL SIGNS: Reviewed. GENERAL: Well-developed in no acute distress. ABDOMEN: Less Distended. Nontender. Minimal dark blood noted at distal incision ASSESSMENT: 1. History of Colonic obstruction status post colostomy reversal 2. Postoperative ileus expected due to chronic medical condition PLAN: -Discontinue NG tube -Keep patient nothing by mouth except for ice chips and medications -Continue TPN for nutrition support -Continue to monitor incision site -Continue monitor electrolytes -Continue Reglan -Continue antiemetics -Continue pain management -Encourage patient to use incentive spirometer -Patient has been refusing to get out of bed as well as refusing to use the incentive spirometer -GI prophylaxis Protonix and DVT prophylaxis subcu heparin Physician Cub Reporter note has been reviewed by physician. Signing provider agrees with the documented findings, assessment, and plan of care. Objective - Vital Signs Vital signs: Vital Signs Temp 98.7 F 02/10/23 12:41 Pulse 87 02/10/23 12:41 Resp 21 02/10/23 12:41 BP 137/86 02/10/23 12:41 Pulse Ox 94 L 02/10/23 12:41 FiO2 Intake & Output 02/09/23 02/10/23 02/10/23 18:59 06:59 18:59 Intake Total 480 1022 Output Total 150 350 Balance 330 -350 1022 Weight 55.57 kg Intake: Intake, IV Titration 480 1022 Amount Mvi, Adult No.4 with Vit 480 K 10 ml Trace (Conc-1Ml/ Dose) 1 ml Potassium Chloride 20 meq Magnesium Sulfate gm 1 gm Calcium Gluconate 1 gm In Amino Acid 5%-D20w+Lytes*E* 1, 000 ml @ 60 mls/hr IV .BY DURATION [facility] Rx#: [id number] Potassium Chloride 20 meq 1022 Magnesium Sulfate gm 1 gm Calcium Gluconate 1 gm In Amino Acid 5%-D20w+ Lytes*E* 1,000 ml @ 60 mls/hr IV .BY DURATION [facility] Rx#:[id number] Output: Gastric Drainage 150 350 Other: Voiding Method Diaper Diaper Incontinent # Voids 2 - Labs CBC & Chem 7: 02/09/23 06:32 02/10/23 05:36 Labs: Abnormal Lab Results - Last 24 Hours (Table) 02/10/23 02/10/23 02/10/23 Range/Units 00:15 05:36 06:19 Carbon Dioxide 30.1 H (20.0-27.5) mmol/L Anion Gap 6.50 L (10.00-18.00) mmol/L BUN/Creatinine Ratio 27.61 H (12.00-20.00) Ratio Glucose 121 H (70-110) mg/dL POC Glucose (mg/dL) 113 H 123 H (70-110) mg/dL Calcium 7.6 L (8.7-10.3) mg/dL
[2023-02-10 16:11] LABS: Glucose,Whole Blood 110 mg/dL (70-110)
[2023-02-10 20:53] LABS: Glucose,Whole Blood 110 mg/dL (70-110)
[2023-02-11] MEDS: METOCLOPRAMIDE 5 MG/ML 2 ML VIAL IVP SCH ×5 (00:30→23:06)
[2023-02-11] MEDS: HEPARIN SODIUM,PORCINE/PF 5,000 UNIT/0.5 ML SYRINGE SQ SCH ×4 (00:30→23:06)
[2023-02-11] MEDS: LACTATED RINGERS 1,000 ML IV SCH ×2 (00:33→17:04)
[2023-02-11 03:21] LABS: Glucose,Whole Blood 120 mg/dL (70-110)
[2023-02-11] MEDS: CALCIUM GLUCONATE IV SCH ×14 (03:21→20:49)
[2023-02-11] MEDS: [UNRECOGNIZED DRUG - OTHER] IV SCH ×6 (03:21)
[2023-02-11] MEDS: MAGNESIUM SULFATE IV SCH ×14 (03:21→20:49)
[2023-02-11] MEDS: POTASSIUM CHLORIDE IV SCH ×14 (03:21→20:49)
[2023-02-11 05:46] LABS: Glucose,Whole Blood 123 mg/dL (70-110)
[2023-02-11 05:52] LABS: African American GFR (CKD) >90 (>60 ml/min/1.73 sqM); Anion Gap 4 mmol/L; Blood Urea Nitrogen 22 mg/dL (7-17); Calcium 7.3 mg/dL (8.4-10.2); Carbon Dioxide 33 mmol/L (22-30); Chloride 99 mmol/L (98-107); Glucose 103 mg/dL (74-99); Magnesium 1.8 mg/dL (1.6-2.3); Non-African American GFR(CKD) 78 (>60 ml/min/1.73 sqM); Phosphorus 4.5 mg/dL (2.5-4.5); Potassium 4.6 mmol/L (3.5-5.1); Sodium 136 mmol/L (137-145)
[2023-02-11] MEDS: LEVOTHYROXINE 75 MCG TAB PO SCH (06:00)
[2023-02-11] MEDS: PANTOPRAZOLE 40 MG TABLET PO SCH (06:00)
[2023-02-11 09:14] LABS: Glucose,Whole Blood 123 mg/dL (70-110)
[2023-02-11] MEDS: IPRATROPIUM-ALBUTEROL 3 ML NEB INHALATION SCH ×3 (09:35→20:58)
[2023-02-11] MEDS: GABAPENTIN 300 MG CAP PO SCH (10:46)
[2023-02-11] MEDS: MULTIVITAMINS, THERA 1 EACH TAB PO SCH (10:46)
[2023-02-11] MEDS: LACTOBACILLUS ACIDOPH & BULGAR 1 EACH PACKET PO SCH (10:46)
[2023-02-11] MEDS: PYRIDOXINE 50 MG TAB PO SCH (10:46)
[2023-02-11] MEDS: SIMETHICONE 40 MG/0.6 ML DROPS 2,000 MG/30 ML BOTTLE PO SCH ×4 (10:47→23:06)
[2023-02-11] MEDS: THIAMINE 100 MG TAB PO SCH (10:47)
[2023-02-11] MEDS ORDERED: Magnesium Replacement Protocol 1 EACH MISC MISCELLANE PRN (10:52)
[2023-02-11] MEDS ORDERED: MAGNESIUM SULFATE-D5W PMX 1 GM in DEXTROSE/WATER 1 100ML.BAG IVPB ONE (10:52)
--- NOTE | 2023-02-11 12:58 | P.PN ---
Subjective Progress Note Date: 02/11/23 CHIEF COMPLAINT: History of colonic obstruction HISTORY OF PRESENT ILLNESS: Patient is postop day #13 status post exploratory laparotomy, takedown colostomy, takedown splenic flexure, partial colectomy, re pair of incisional hernia, lysis of adhesions and partial omentectomy. She is on TPN for nutrition support. Patient denies any abdominal pain. Patient's abdominal distention is improving each day. She did have 2 loose smears of a BM. She denies any abdominal pain. Denies any nausea. She does have a small amount of drainage from the incision site of the old ostomy. Afebrile. Potassium 4.6 magnesium 1.8 phosphorus 4.5. Patient continues to refuse to use the incentive spirometer and to get out of bed. NG tube was discontinued yesterday Patient seen and examined with Dr. coto PHYSICAL EXAM: VITAL SIGNS: Reviewed. GENERAL: Well-developed in no acute distress. ABDOMEN: Less Distended. Nontender. Old ostomy site incision has a small amount of drainage noted bilaterally. Bleeding from the mid abdominal incision has stopped ASSESSMENT: 1. History of Colonic obstruction status post colostomy reversal 2. Postoperative ileus expected due to chronic medical condition PLAN: -Keep patient nothing by mouth except for ice chips and medications -Continue TPN for nutrition support -Continue to monitor incision site -Continue monitor electrolytes -Continue Reglan -Continue antiemetics -Continue pain management -Encourage patient to use incentive spirometer -Encourage patient to increase activity level -Patient has been refusing to get out of bed as well as refusing to use the incentive spirometer -GI prophylaxis Protonix and DVT prophylaxis subcu heparin Physician Supervisor Hand Silvering note has been reviewed by physician. Signing provider agrees with the documented findings, assessment, and plan of care. Objective - Vital Signs Vital signs: Vital Signs Temp 97.7 F 02/11/23 07:36 Pulse 81 02/11/23 07:36 Resp 17 02/11/23 07:36 BP 121/73 02/11/23 07:36 Pulse Ox 92 L 02/11/23 09:35 FiO2 Intake & Output 02/10/23 02/11/23 02/11/23 18:59 06:59 18:59 Intake Total 1022 Balance 1022 Weight 55.57 kg Intake: Intake, IV Titration 1022 Amount Potassium Chloride 20 meq 1022 Magnesium Sulfate gm 1 gm Calcium Gluconate 1 gm In Amino Acid 5%-D20w+ Lytes*E* 1,000 ml @ 60 mls/hr IV .BY DURATION [facility] Rx#:[id number] Other: Voiding Method Diaper Diaper Incontinent Incontinent Incontinent # Voids 3 5 1 # Bowel Movements 1 - Labs CBC & Chem 7: 02/09/23 06:32 02/11/23 05:02 Labs: Abnormal Lab Results - Last 24 Hours (Table) 02/11/23 02/11/23 02/11/23 Range/Units 03:15 05:02 05:44 Sodium 136 L (137-145) mmol/L Carbon Dioxide 33 H (22-30) mmol/L BUN 22 H (7-17) mg/dL Glucose 103 H (74-99) mg/dL POC Glucose (mg/dL) 120 H 123 H (70-110) mg/dL Calcium 7.3 L (8.4-10.2) mg/dL 02/11/23 Range/Units 09:13 Sodium (137-145) mmol/L Carbon Dioxide (22-30) mmol/L BUN (7-17) mg/dL Glucose (74-99) mg/dL POC Glucose (mg/dL) 123 H (70-110) mg/dL Calcium (8.4-10.2) mg/dL
--- NOTE | 2023-02-11 15:25 | P.PN ---
Subjective Progress Note Date: 02/11/23 This is a 63-year-old female admitted under surgery services and recently underwent exploratory laparotomy, takedown splenic flexure, takedown colostomy, partial colectomy and repair of incisional hernia with extensive lysis of adhesions as well as a partial omentectomy. Patient continues with abdominal distention and NG tube although reports is improved. Per patient she reports to feeling better and is passing gas and denies bowel movement and there are plans for possible NG tube removal. Patient has had prolonged hospitalization and currently continued on TPN. Patient with history of COPD and denies shortness of breath. Patient did have chest x-ray yesterday showing left lower lobe infiltrate and small bilateral effusions stable with no overt failure or pneumothorax noted. Encourage incentive spirometer use at least 10 times every hour while awake and patient has been refusing reporting she does not need that. Patient is currently afebrile with no reports of chest pain or shortness of breath and reports to feeling hungry and is maintained on ice chips only per surgery recommendations 02/11/2023 Patient is seen and evaluated in follow-up today and had NG tube removed and is maintained on just ice chips and currently TPN. Patient is having gas and per nursing staff had a smear of a bowel movement. Patient has been refusing to get up out of bed and has not been walking and has been refusing to use incentive spirometer as instructed. Patient is afebrile denies chest pain or shortness of breath. Patient continues to report she wants to go home and reports she is hungry. BMP within normal limits and magnesium is 1.8 and will replace per protocol. Recommend monitoring Accu-Cheks before meals and at bedtime. Review of systems: Constitutional: No reports of fatigue, fever, or chills Cardiovascular: No reports of chest pain or palpitations Respiratory: No reports of shortness of breath or cough GI: No reports of nausea, no reports of vomiting, reports passing gas with no bowel movement : No reports of dysuria or retention Neurovascular: reports of generalized weakness All medications have been reviewed Active Medications Hydrocodone Bitart/Acetaminophen (Hydrocodone/Apap 5-325mg 1 Each Tab) 1 each PO Q4HR PRN PRN Reason: Pain Last Admin: 02/04/23 05:49 Dose: 1 each Albuterol/Ipratropium (Ipratropium-Albuterol 3 Ml Neb) 3 ml INHALATION RT-Q8H PRN PRN Reason: Wheezing Albuterol/Ipratropium (Ipratropium-Albuterol 3 Ml Neb) 3 ml INHALATION RT-TID [facility] Last Admin: 02/11/23 09:35 Dose: Not Given Gabapentin (Gabapentin 300 Mg Cap) 300 mg PO DAILY [facility] Last Admin: 02/11/23 10:46 Dose: 300 mg Heparin Sodium (Porcine) (Heparin Sodium,Porcine/Pf 5,000 Unit/0.5 Ml Syringe) 5,000 unit SQ Q8HR [facility] Last Admin: 02/11/23 10:46 Dose: 5,000 unit Hydromorphone HCl (Hydromorphone 1 Mg/Ml 1 Ml Syringe) 1 mg IVP Q3HR PRN PRN Reason: Pain Last Admin: 02/05/23 19:58 Dose: 1 mg Ropivacaine 250 mg/Hydromorphone HCl 5 mg/ Sodium Chloride 250 mls @ 0 mls/hr EPIDURAL .Q0M PRN; Protocol PRN Reason: Pain Control Last Admin: 01/31/23 11:19 Dose: 5 mls/hr Lactated Ringer's (Lactated Ringers) 1,000 mls @ 75 mls/hr IV .[id number] [facility] Last Admin: 02/11/23 00:33 Dose: 75 mls/hr Fat Emulsion Intravenous 250 (ml/ IV Solution) 250 mls @ 21 mls/hr IV MoTh [facility] Last Admin: 02/08/23 17:28 Dose: 21 mls/hr Potassium Chloride 20 meq/Magnesium Sulfate 1 gm/Calcium Gluconate 1 gm/ Amino Ac/Electrol/Dextrose/Calcium 1,022 mls @ 60 mls/hr IV .BY DURATION [facility] Stop: 02/11/23 19:59 Last Admin: 02/10/23 11:02 Dose: 60 mls/hr Parenteral Vitamin Supplement 10 ml/ Zinc/Copper/Manganese/Selenium 1 ml/ Potassium Chloride 20 meq/ Magnesium Sulfate 1 gm/ Calcium Gluconate 1 gm/ Amino Ac/Electrol/Dextrose/Calcium 1,033 mls @ 60 mls/hr IV .BY DURATION [facility] Stop: 02/11/23 19:59 Last Admin: 02/11/23 03:21 Dose: 60 mls/hr Potassium Chloride 28 meq/Magnesium Sulfate 1.75 gm/Calcium Gluconate 2 gm/ Sodium Chloride 40 meq/ Potassium Phosphate 9 mmol/ Amino Acids/Dextrose 1,050.5 mls @ 60 mls/hr IV .BY DURATION [facility] Parenteral Vitamin Supplement 10 ml/ Zinc/Copper/Manganese/Selenium 1 ml/ Potassium Chloride 28 meq/ Magnesium Sulfate 1.75 gm/ Calcium Gluconate 2 gm/ Sodium Chloride 40 meq/ Potassium Phosphate 9 mmol/ Amino Acids/Dextrose 1,061.5 mls @ 60 mls/hr IV .BY DURATION [facility] Magnesium Sulfate/Dextrose 1 (gm/ IV Solution) 100 mls @ 100 mls/hr IVPB ONCE ONE; Protocol Stop: 02/11/23 11:51 Lactobacillus Acidoph/Bulgaricus (Lactobacillus Acidoph & Bulgar 1 Each Packet) 1 each PO DAILY [facility] Last Admin: 02/11/23 10:46 Dose: 1 each Levothyroxine Sodium (Levothyroxine 75 Mcg Tab) 75 mcg PO DAILY@0630 [facility] Last Admin: 02/11/23 06:00 Dose: 75 mcg Metoclopramide HCl (Metoclopramide 5 Mg/Ml 2 Ml Vial) 10 mg IVP Q6HR [facility] Last Admin: 02/11/23 06:00 Dose: 10 mg Miscellaneous Information (Magnesium Replacement Protocol 1 Each Misc) 1 each MISCELLANE DAILY PRN; Protocol PRN Reason: Per Protocol Miscellaneous Information (Potassium Replacement Protocol 1 Each Misc) 1 each MISCELLANE DAILY PRN; Protocol PRN Reason: Per Protocol Miscellaneous Information (Magnesium Replacement Protocol 1 Each Misc) 1 each MISCELLANE DAILY PRN; Protocol PRN Reason: Per Protocol Multivitamins (Multivitamins, Thera 1 Each Tab) 1 each PO DAILY [facility] Last Admin: 02/11/23 10:46 Dose: 1 each Naloxone HCl (Naloxone 0.4 Mg/Ml 1 Ml Vial) 0.2 mg IV Q2M PRN PRN Reason: Opioid Reversal Ondansetron HCl (Ondansetron 4 Mg/2 Ml Vial) 4 mg IVP Q6HR PRN PRN Reason: Nausea And Vomiting Last Admin: 02/10/23 11:01 Dose: 4 mg Pantoprazole Sodium (Pantoprazole 40 Mg Tablet) 40 mg PO AC-BRKFST [facility] Last Admin: 02/11/23 06:00 Dose: 40 mg Pyridoxine HCl (Pyridoxine 50 Mg Tab) 100 mg PO DAILY [facility] Last Admin: 02/11/23 10:46 Dose: 100 mg Simethicone (Simethicone 40 Mg/0.6 Ml Drops 2,000 Mg/30 Ml Bottle) 40 mg PO QID [facility] Last Admin: 02/11/23 10:47 Dose: 40 mg Thiamine HCl (Thiamine 100 Mg Tab) 100 mg PO DAILY [facility] Last Admin: 02/11/23 10:47 Dose: 100 mg PHYSICAL EXAMINATION: GENERAL: The patient is alert and oriented x3, thin built, elderly appearing, appears much older than stated age, agitated at times HEENT: Pupils are round and equally reacting to light. EOMI. no scleral icterus. No conjunctival pallor. Normocephalic, atraumatic. No pharyngeal erythema. No thyromegaly. CARDIOVASCULAR: S1 and S2 muffled PULMONARY: diminished breath sounds bilaterally with some scattered rhonchi noted. ABDOMEN: soft. Mildly tender on exam. obese. Somewhat distended, normoactive bowel sounds. No palpable organomegaly. MUSCULOSKELETAL: No joint swelling or deformity. EXTREMITIES: No cyanosis, clubbing, or pedal edema. NEUROLOGICAL: Gross neurological examination did not reveal any focal deficits. Diffuse weakness SKIN: No rashes. Assessment: Status post reversal of colostomy Postoperative ileus, expected due to chronic medical condition Mild hypokalemia, improved COPD history, not an exacerbation Acute postoperative blood loss anemia as expected Hypertension Hypomagnesemia History of osteoarthritis History of pulmonary embolism GERD Continued ongoing nicotine dependence GI prophylaxis DVT prophylaxis Full code Plan: Recommend to continue with current medications and management per general surgery services. Patient is continued on TPN and does have a PICC line and will continue. Patient is currently maintained on ice chips only and NG tube was removed yesterday. Patient is passing gas and per nursing staff had a smear of bowel movement today. Diet to be advanced per surgery Recommend PT/OT therapy evaluation as patient has been refusing to get up out of the bed. Patient will be going to [facility]CF once stabilized Patient is passing gas but has not had a bowel movement yet and will leave advancing diet to surgery recommendations as patient is asking for food Encouraged incentive spirometer use at least 10 times every hour while awake and patient reports she does not need this and reports she has COPD. Patient denies shortness of breath and reports she does not need breathing treatments. Patient continues to refuse incentive spirometer use as well Recommend follow-up labs in a.m. and we will continue to follow with general surgery during hospitalization Thank you kindly for this consultation The impression and plan of care has been dictated by Lida Singh, nurse practitioner as directed. Dr. Greyson MD I have performed a history and examination and MDM of this patient, discussed the same with the dictator, and agree with the dictator's assessment and plan as written ,documented as a scribe. Based on total visit time, I have performed more than 50% of the visit. Any additional findings or plans will be noted. Objective - Vital Signs Vital signs: Vital Signs Temp 97.7 F 02/11/23 07:36 Pulse 81 02/11/23 07:36 Resp 17 02/11/23 07:36 BP 121/73 02/11/23 07:36 Pulse Ox 92 L 02/11/23 09:35 FiO2 Intake & Output 02/10/23 02/11/23 02/11/23 18:59 06:59 18:59 Intake Total 1022 Balance 1022 Intake: Intake, IV Titration 1022 Amount Potassium Chloride 20 meq 1022 Magnesium Sulfate gm 1 gm Calcium Gluconate 1 gm In Amino Acid 5%-D20w+ Lytes*E* 1,000 ml @ 60 mls/hr IV .BY DURATION [facility] Rx#:[id number] Other: Voiding Method Diaper Diaper Incontinent Incontinent # Voids 3 5 # Bowel Movements 1 - Labs CBC & Chem 7: 02/09/23 06:32 02/11/23 05:02 Labs: Abnormal Lab Results - Last 24 Hours (Table) 02/11/23 02/11/23 02/11/23 Range/Units 03:15 05:02 05:44 Sodium 136 L (137-145) mmol/L Carbon Dioxide 33 H (22-30) mmol/L BUN 22 H (7-17) mg/dL Glucose 103 H (74-99) mg/dL POC Glucose (mg/dL) 120 H 123 H (70-110) mg/dL Calcium 7.3 L (8.4-10.2) mg/dL 02/11/23 Range/Units 09:13 Sodium (137-145) mmol/L Carbon Dioxide (22-30) mmol/L BUN (7-17) mg/dL Glucose (74-99) mg/dL POC Glucose (mg/dL) 123 H (70-110) mg/dL Calcium (8.4-10.2) mg/dL
[2023-02-11 16:38] LABS: Glucose,Whole Blood 120 mg/dL (70-110)
[2023-02-11] MEDS: FAT EMULSION 20% 250 ML in EMPTY BAG 1 BAG IV SCH (17:04)
[2023-02-11] MEDS: [UNRECOGNIZED DRUG - OTHER] IV SCH ×8 (20:49)
[2023-02-12 00:15] LABS: Glucose,Whole Blood 123 mg/dL (70-110)
[2023-02-12] MEDS: CALCIUM GLUCONATE IV SCH ×14 (01:10→16:02)
[2023-02-12] MEDS: POTASSIUM CHLORIDE IV SCH ×14 (01:10→16:02)
[2023-02-12] MEDS: [UNRECOGNIZED DRUG - OTHER] IV SCH ×6 (01:10)
[2023-02-12] MEDS: MAGNESIUM SULFATE IV SCH ×14 (01:10→16:02)
[2023-02-12 05:43] LABS: Glucose,Whole Blood 127 mg/dL (70-110)
[2023-02-12] MEDS: PANTOPRAZOLE 40 MG TABLET PO SCH (06:17)
[2023-02-12] MEDS: METOCLOPRAMIDE 5 MG/ML 2 ML VIAL IVP SCH ×4 (06:17→23:03)
[2023-02-12] MEDS: LEVOTHYROXINE 75 MCG TAB PO SCH (06:17)
[2023-02-12 08:31] LABS: African American GFR (CKD) >90 (>60 ml/min/1.73 sqM); Anion Gap 4 mmol/L; Blood Urea Nitrogen 22 mg/dL (7-17); Calcium 7.4 mg/dL (8.4-10.2); Carbon Dioxide 33 mmol/L (22-30); Chloride 100 mmol/L (98-107); Glucose 105 mg/dL (74-99); Magnesium 1.9 mg/dL (1.6-2.3); Non-African American GFR(CKD) 84 (>60 ml/min/1.73 sqM); Potassium 4.1 mmol/L (3.5-5.1); Sodium 137 mmol/L (137-145)
[2023-02-12] MEDS: IPRATROPIUM-ALBUTEROL 3 ML NEB INHALATION SCH ×3 (08:44→21:43)
[2023-02-12] MEDS: LACTOBACILLUS ACIDOPH & BULGAR 1 EACH PACKET PO SCH (08:51)
[2023-02-12] MEDS: GABAPENTIN 300 MG CAP PO SCH (08:51)
[2023-02-12] MEDS: HEPARIN SODIUM,PORCINE/PF 5,000 UNIT/0.5 ML SYRINGE SQ SCH ×3 (08:51→23:03)
[2023-02-12] MEDS: MULTIVITAMINS, THERA 1 EACH TAB PO SCH (08:51)
[2023-02-12] MEDS: THIAMINE 100 MG TAB PO SCH (08:51)
[2023-02-12] MEDS: SIMETHICONE 40 MG/0.6 ML DROPS 2,000 MG/30 ML BOTTLE PO SCH ×4 (08:51→23:03)
[2023-02-12] MEDS: PYRIDOXINE 50 MG TAB PO SCH (08:51)
[2023-02-12 11:10] LABS: HCT 30.1 % (37.2-46.3); HGB 8.9 g/dL (12.0-15.0); MCH 28.7 pg (27.0-32.0); MCHC 29.6 g/dL (32.0-37.0); MCV 97.1 fL (80.0-97.0); Mean Platelet Volume 11.6 fL (9.5-12.2); NRBC Per 100 WBC 0 /100 WBCS (0.0-0.0); Platelet Count 153 X 10*3/uL (140-440); RDW 16.5 % (11.5-14.5)
[2023-02-12 11:52] LABS: Glucose,Whole Blood 117 mg/dL (70-110)
[2023-02-12] MEDS: LACTATED RINGERS 1,000 ML IV SCH ×2 (12:29→22:29)
--- NOTE | 2023-02-12 13:55 | P.PN ---
Progress Note - Text Progress Note Date: 02/12/23 patient has had some more flatus. She has minimal abdominal pain. She has a flat affect. On exam vital signs are stable. Abdomen is soft less distended. There is minimal tenderness. There is no rebound or guarding. Status post reversal of colostomy with postoperative ileus. Patient will continue receive supportive care. I have discussed her c Care with her boyfriend today.
[2023-02-12] MEDS: [UNRECOGNIZED DRUG - OTHER] IV SCH ×8 (16:02)
[2023-02-12 18:46] LABS: Glucose,Whole Blood 117 mg/dL (70-110)
--- NOTE | 2023-02-12 19:14 | P.PN ---
Progress Note - Text Progress Note Date: 02/12/23 - Chief Complaint Takedown colostomy Hospital course: This is a 63-year-old patient, who had severe ileus of right and left: And underwent right and left colectomy with end colostomy by Dr. Worthington on 09/21/2022. Patient on January 29/yesterday underwent exploratory laboratory with takedown of colostomy and takedown of splenic flexure with partial colectomy and repair of incisional hernia and lysis of adhesions by Dr. Worthington. Laying in bed this morning has an epidural in place. Wound VAC in place. No nausea vomiting. A bit tired January 31: Patient has not passed any flatus or BM. Pain is controlled. Provena wound VAC in place. Some serosanguineous output. Reclining in bed. Epidural in place. Patient has dropped her hemoglobin to 8. Hypotensive. Despite IV fluids. We will transfuse unit of blood. February 01: Epidural discontinued. Provena discontinued. No flatus. Has been advanced to full liquids. Still rather weak. Hasn't been out of bed. PTOT on the case. Patient received a unit of blood yesterday for hypertension and decreased hemoglobin. February 2: In bed. Did not participate with physical therapist. No flatus. Abdomen distended. Patient did vomit earlier. Diet downgraded by surgery. We will do abdominal x-ray in the morning. February 3: No flatus. Abdomen still distended. Abdominal x-rays confirmed ileus. Patient made nothing by mouth. Reglan was added by surgery. Increase activity as tolerated. February 4: Patient thinks she may pass them flatus. Abdomen still distended. Nothing by mouth. Getting Flagyl. February 5: Patient refusing to participate in therapy. Will not do therapy until she eats. X-rays again showing ileus. Surgery ordered NG tube. Patient states she passed and little amount of flatus. Abdomen distended no nausea vomiting February 12: I resumed care of the patient today from [facility] hospitalist. Patient remains nothing by mouth. In bed. Tired. Said passed a small amount of flatus. Getting IV TPN and lipids. Patient had been refusing therapy. Abdomen distended. Active Medications Hydrocodone Bitart/Acetaminophen (Hydrocodone/Apap 5-325mg 1 Each Tab) 1 each PO Q4HR PRN PRN Reason: Pain Last Admin: 02/04/23 05:49 Dose: 1 each Albuterol/Ipratropium (Ipratropium-Albuterol 3 Ml Neb) 3 ml INHALATION RT-Q8H PRN PRN Reason: Wheezing Albuterol/Ipratropium (Ipratropium-Albuterol 3 Ml Neb) 3 ml INHALATION RT-TID [facility] Last Admin: 02/12/23 12:01 Dose: Not Given Gabapentin (Gabapentin 300 Mg Cap) 300 mg PO DAILY [facility] Last Admin: 02/12/23 08:51 Dose: 300 mg Heparin Sodium (Porcine) (Heparin Sodium,Porcine/Pf 5,000 Unit/0.5 Ml Syringe) 5,000 unit SQ Q8HR [facility] Last Admin: 02/12/23 17:33 Dose: 5,000 unit Hydromorphone HCl (Hydromorphone 1 Mg/Ml 1 Ml Syringe) 1 mg IVP Q3HR PRN PRN Reason: Pain Last Admin: 02/05/23 19:58 Dose: 1 mg Ropivacaine 250 mg/Hydromorphone HCl 5 mg/ Sodium Chloride 250 mls @ 0 mls/hr EPIDURAL .Q0M PRN; Protocol PRN Reason: Pain Control Last Admin: 01/31/23 11:19 Dose: 5 mls/hr Lactated Ringer's (Lactated Ringers) 1,000 mls @ 75 mls/hr IV .[id number] [facility] Last Admin: 02/12/23 12:29 Dose: Not Given Fat Emulsion Intravenous 250 (ml/ IV Solution) 250 mls @ 21 mls/hr IV MoTh [facility] Last Admin: 02/11/23 17:04 Dose: 21 mls/hr Potassium Chloride 28 meq/Magnesium Sulfate 1.75 gm/Calcium Gluconate 2 gm/ Sodium Chloride 40 meq/ Potassium Phosphate 9 mmol/ Amino Acids/Dextrose 1,050.5 mls @ 60 mls/hr IV .BY DURATION [facility] Last Admin: 02/12/23 16:02 Dose: 60 mls/hr Parenteral Vitamin Supplement 10 ml/ Zinc/Copper/Manganese/Selenium 1 ml/ Potassium Chloride 28 meq/ Magnesium Sulfate 1.75 gm/ Calcium Gluconate 2 gm/ Sodium Chloride 40 meq/ Potassium Phosphate 9 mmol/ Amino Acids/Dextrose 1,061.5 mls @ 60 mls/hr IV .BY DURATION [facility] Lactobacillus Acidoph/Bulgaricus (Lactobacillus Acidoph & Bulgar 1 Each Packet) 1 each PO DAILY [facility] Last Admin: 02/12/23 08:51 Dose: 1 each Levothyroxine Sodium (Levothyroxine 75 Mcg Tab) 75 mcg PO DAILY@0630 [facility] Last Admin: 02/12/23 06:17 Dose: 75 mcg Metoclopramide HCl (Metoclopramide 5 Mg/Ml 2 Ml Vial) 10 mg IVP Q6HR [facility] Last Admin: 02/12/23 17:33 Dose: 10 mg Miscellaneous Information (Potassium Replacement Protocol 1 Each Misc) 1 each MISCELLANE DAILY PRN; Protocol PRN Reason: Per Protocol Miscellaneous Information (Magnesium Replacement Protocol 1 Each Misc) 1 each MISCELLANE DAILY PRN; Protocol PRN Reason: Per Protocol Multivitamins (Multivitamins, Thera 1 Each Tab) 1 each PO DAILY [facility] Last Admin: 02/12/23 08:51 Dose: 1 each Naloxone HCl (Naloxone 0.4 Mg/Ml 1 Ml Vial) 0.2 mg IV Q2M PRN PRN Reason: Opioid Reversal Ondansetron HCl (Ondansetron 4 Mg/2 Ml Vial) 4 mg IVP Q6HR PRN PRN Reason: Nausea And Vomiting Last Admin: 02/10/23 11:01 Dose: 4 mg Pantoprazole Sodium (Pantoprazole 40 Mg Tablet) 40 mg PO AC-BRKFST [facility] Last Admin: 02/12/23 06:17 Dose: 40 mg Pyridoxine HCl (Pyridoxine 50 Mg Tab) 100 mg PO DAILY [facility] Last Admin: 02/12/23 08:51 Dose: 100 mg Simethicone (Simethicone 40 Mg/0.6 Ml Drops 2,000 Mg/30 Ml Bottle) 40 mg PO QID [facility] Last Admin: 02/12/23 17:33 Dose: 40 mg Thiamine HCl (Thiamine 100 Mg Tab) 100 mg PO DAILY [facility] Last Admin: 02/12/23 08:51 Dose: 100 mg Past medical history to include: Hypothyroid, osteomyelitis, COPD, left colectomy with end colostomy Social history: Lives with her boyfriend. Smokes about half a pack a day since age 21. Does use a walker. Physical examination: VITAL SIGNS: 98.5, 80, 19, 1 12 x 6 26, 92% room air GENERAL: BMI 20.4, reclining in bed tired. EYES: Pupils equal. Conjunctiva normal. HEENT: External appearance of nose and ears normal, oral cavity dry mucous membranes NECK: JVD not raised; masses not palpable. HEART: First and second heart sounds are normal; no edema. LUNGS: Respiratory rate normal; decreased breath sounds. ABDOMEN: Soft, distended, mild tender Liver spleen not palpable, no masses palpable. Hyperactive bowel sounds PSYCH: Alert and oriented x3; mood and affect anxious. MUSCULOSKELETAL:No Clubbing/cyanosis;muscles-grossly intact INVESTIGATIONS, reviewed in the clinical context: February 12: White count 5.5 hemoglobin 8.9 platelets 153 potassium 4.1 creatinine 0.76 February 04: White count 5.3 hemoglobin 10.4 platelets 139 potassium 4 creatinine 0.80 Abdominal x-ray film personally reviewed by me: Ileus February 01: White count 8.3 hemoglobin 10.6 platelets 100 January 31: WBC 7.3 hemoglobin 8 platelets 103 121 TIBC 211% saturation 9.98 transferred 151 B12 516 folate-40 January 29: White count 8.8 hemoglobin 11.3 platelets 95 potassium 4.4 creatinine 0.94 Previous labs: Platelets 108 in October 2022, 103 in August 2022 Assessment and plan: -Reversal of colostomy. Right and left colectomy with end colostomy in September [address] Worthington Nothing by mouth. Follow with surgery. No flatus - postoperative ileus.: Not improving Nothing by mouth -Acute postprocedure blood loss anemia, expected from surgery causing hypotension: Better Received 1 unit of blood -Postoperative hypotension.: Better lactated Ringer's. Received 1 unit of blood -GERD PPI -Acute medical debility from surgery.: Not improving PTOT. Patient refused therapy -Hypothyroid Levothyroxin -COPD in a current smoker DuoNeb -Chronic nicotine dependence, cigarette smoker Nicotine patch -Thrombocytopenia, improved -Anemia of chronic disease hemoglobin 11.3 Iron deficiency from blood loss. nothing by mouth. IV fluids. TPN and lipids. Refused therapy. Thank you Dr. Worthington
[2023-02-12 23:47] LABS: Glucose,Whole Blood 117 mg/dL (70-110)
[2023-02-13 05:45] LABS: Glucose,Whole Blood 122 mg/dL (70-110)
[2023-02-13] MEDS: PANTOPRAZOLE 40 MG TABLET PO SCH (06:34)
[2023-02-13] MEDS: LEVOTHYROXINE 75 MCG TAB PO SCH (06:34)
[2023-02-13] MEDS: METOCLOPRAMIDE 5 MG/ML 2 ML VIAL IVP SCH ×3 (06:34→17:58)
[2023-02-13 07:24] LABS: African American GFR (CKD) 85 (>60 ml/min/1.73 sqM); Anion Gap 3 mmol/L; Blood Urea Nitrogen 22 mg/dL (7-17); Calcium 7.4 mg/dL (8.4-10.2); Carbon Dioxide 32 mmol/L (22-30); Chloride 102 mmol/L (98-107); Glucose 114 mg/dL (74-99); Magnesium 1.9 mg/dL (1.6-2.3); Non-African American GFR(CKD) 74 (>60 ml/min/1.73 sqM); Phosphorus 4.4 mg/dL (2.5-4.5); Potassium 4.1 mmol/L (3.5-5.1); Sodium 137 mmol/L (137-145)
[2023-02-13] MEDS: THIAMINE 100 MG TAB PO SCH (09:05)
[2023-02-13] MEDS: LACTOBACILLUS ACIDOPH & BULGAR 1 EACH PACKET PO SCH (09:05)
[2023-02-13] MEDS: GABAPENTIN 300 MG CAP PO SCH (09:05)
[2023-02-13] MEDS: MULTIVITAMINS, THERA 1 EACH TAB PO SCH (09:05)
[2023-02-13] MEDS: PYRIDOXINE 50 MG TAB PO SCH (09:05)
[2023-02-13] MEDS: HEPARIN SODIUM,PORCINE/PF 5,000 UNIT/0.5 ML SYRINGE SQ SCH ×2 (09:06→17:58)
[2023-02-13] MEDS: SIMETHICONE 40 MG/0.6 ML DROPS 2,000 MG/30 ML BOTTLE PO SCH ×3 (09:06→17:59)
--- NOTE | 2023-02-13 09:19 | P.PN ---
Progress Note - Text Progress Note Date: 02/13/23 Patient states she feels about the same as yesterday. She's had some flatus. Nursing staff she had a small stool last night. On exam vitals are stable. Abdomen soft. There is less distention. Patient will start on clear liquid diet.
[2023-02-13] MEDS: IPRATROPIUM-ALBUTEROL 3 ML NEB INHALATION SCH ×3 (09:29→21:46)
[2023-02-13] MEDS: POTASSIUM CHLORIDE IV SCH ×8 (09:32)
[2023-02-13] MEDS: MAGNESIUM SULFATE IV SCH ×8 (09:32)
[2023-02-13] MEDS: CALCIUM GLUCONATE IV SCH ×8 (09:32)
[2023-02-13] MEDS: [UNRECOGNIZED DRUG - OTHER] IV SCH ×8 (09:32)
--- NOTE | 2023-02-13 09:55 | XR ---
EXAMINATION TYPE: XR abdomen 2V DATE OF EXAM: 02/13/2023 COMPARISON: 02/05/2023 HISTORY: Follow-up ileus TECHNIQUE: Upright abdomen FINDINGS: There is abundant bowel gas present throughout small bowel loops as well as the colon. Surg ical skin elida are present. Mass effect is not identified. Small amount of colonic bowel gas appea rs to be present on the right. IMPRESSION: 1. Increasing dilated small bowel loops containing air may be related to ileus. Continued follow-up is recommended
[2023-02-13 11:54] LABS: Glucose,Whole Blood 111 mg/dL (70-110)
[2023-02-13] MEDS: LACTATED RINGERS 1,000 ML IV SCH (13:34)
[2023-02-13 16:28] LABS: Glucose,Whole Blood 124 mg/dL (70-110)
--- NOTE | 2023-02-13 21:06 | P.PN ---
Progress Note - Text Progress Note Date: 02/13/23 - Chief Complaint Takedown colostomy Hospital course: This is a 63-year-old patient, who had severe ileus of right and left: And underwent right and left colectomy with end colostomy by Dr. Worthington on 09/21/2022. Patient on January 29/yesterday underwent exploratory laboratory with takedown of colostomy and takedown of splenic flexure with partial colectomy and repair of incisional hernia and lysis of adhesions by Dr. Worthington. Laying in bed this morning has an epidural in place. Wound VAC in place. No nausea vomiting. A bit tired January 31: Patient has not passed any flatus or BM. Pain is controlled. Provena wound VAC in place. Some serosanguineous output. Reclining in bed. Epidural in place. Patient has dropped her hemoglobin to 8. Hypotensive. Despite IV fluids. We will transfuse unit of blood. February 01: Epidural discontinued. Provena discontinued. No flatus. Has been advanced to full liquids. Still rather weak. Hasn't been out of bed. PTOT on the case. Patient received a unit of blood yesterday for hypertension and decreased hemoglobin. February 2: In bed. Did not participate with physical therapist. No flatus. Abdomen distended. Patient did vomit earlier. Diet downgraded by surgery. We will do abdominal x-ray in the morning. February 3: No flatus. Abdomen still distended. Abdominal x-rays confirmed ileus. Patient made nothing by mouth. Reglan was added by surgery. Increase activity as tolerated. February 4: Patient thinks she may pass them flatus. Abdomen still distended. Nothing by mouth. Getting Flagyl. February 5: Patient refusing to participate in therapy. Will not do therapy until she eats. X-rays again showing ileus. Surgery ordered NG tube. Patient states she passed and little amount of flatus. Abdomen distended no nausea vomiting February 12: I [facility] care [facility] the [facility] Patient remains nothing by mouth. In bed. Tired. Said passed a small amount of flatus. Getting IV TPN and lipids. Patient had been refusing therapy. Abdomen distended. February 13: Reclining in bed. Has been passing some flatus. Decrease abdominal distention. TPN and lipids. On clear liquids. I gave spoke to the patient and family the bedside the importance of being out of bed and working with therapy. Abdominal x-ray showing severe dilatation. Active Medications Hydrocodone Bitart/Acetaminophen (Hydrocodone/Apap 5-325mg 1 Each Tab) 1 each PO Q4HR PRN PRN Reason: Pain Last Admin: 02/04/23 05:49 Dose: 1 each Albuterol/Ipratropium (Ipratropium-Albuterol 3 Ml Neb) 3 ml INHALATION RT-Q8H PRN PRN Reason: Wheezing Albuterol/Ipratropium (Ipratropium-Albuterol 3 Ml Neb) 3 ml INHALATION RT-TID [facility] Last Admin: 02/13/23 12:21 Dose: Not Given Gabapentin (Gabapentin 300 Mg Cap) 300 mg PO DAILY [facility] Last Admin: 02/13/23 09:05 Dose: 300 mg Heparin Sodium (Porcine) (Heparin Sodium,Porcine/Pf 5,000 Unit/0.5 Ml Syringe) 5,000 unit SQ Q8HR [facility] Last Admin: 02/13/23 17:58 Dose: 5,000 unit Hydromorphone HCl (Hydromorphone 1 Mg/Ml 1 Ml Syringe) 1 mg IVP Q3HR PRN PRN Reason: Pain Last Admin: 02/05/23 19:58 Dose: 1 mg Ropivacaine 250 mg/Hydromorphone HCl 5 mg/ Sodium Chloride 250 mls @ 0 mls/hr EPIDURAL .Q0M PRN; Protocol PRN Reason: Pain Control Last Admin: 01/31/23 11:19 Dose: 5 mls/hr Lactated Ringer's (Lactated Ringers) 1,000 mls @ 75 mls/hr IV .[id number] [facility] Last Admin: 02/13/23 13:34 Dose: 75 mls/hr Fat Emulsion Intravenous 250 (ml/ IV Solution) 250 mls @ 21 mls/hr IV MoTh [facility] Last Admin: 02/11/23 17:04 Dose: 21 mls/hr Potassium Chloride 28 meq/Magnesium Sulfate 1.75 gm/Calcium Gluconate 2 gm/ Sodium Chloride 40 meq/ Potassium Phosphate 9 mmol/ Amino Acids/Dextrose 1,050.5 mls @ 60 mls/hr IV .BY DURATION [facility] Last Admin: 02/12/23 16:02 Dose: 60 mls/hr Parenteral Vitamin Supplement 10 ml/ Zinc/Copper/Manganese/Selenium 1 ml/ Potassium Chloride 28 meq/ Magnesium Sulfate 1.75 gm/ Calcium Gluconate 2 gm/ Sodium Chloride 40 meq/ Potassium Phosphate 9 mmol/ Amino Acids/Dextrose 1,061.5 mls @ 60 mls/hr IV .BY DURATION [facility] Last Admin: 02/13/23 09:32 Dose: 60 mls/hr Lactobacillus Acidoph/Bulgaricus (Lactobacillus Acidoph & Bulgar 1 Each Packet) 1 each PO DAILY [facility] Last Admin: 02/13/23 09:05 Dose: 1 each Levothyroxine Sodium (Levothyroxine 75 Mcg Tab) 75 mcg PO DAILY@0630 [facility] Last Admin: 02/13/23 06:34 Dose: 75 mcg Metoclopramide HCl (Metoclopramide 5 Mg/Ml 2 Ml Vial) 10 mg IVP Q6HR [facility] Last Admin: 02/13/23 17:58 Dose: 10 mg Miscellaneous Information (Potassium Replacement Protocol 1 Each Misc) 1 each MISCELLANE DAILY PRN; Protocol PRN Reason: Per Protocol Miscellaneous Information (Magnesium Replacement Protocol 1 Each Misc) 1 each MISCELLANE DAILY PRN; Protocol PRN Reason: Per Protocol Multivitamins (Multivitamins, Thera 1 Each Tab) 1 each PO DAILY [facility] Last Admin: 02/13/23 09:05 Dose: 1 each Naloxone HCl (Naloxone 0.4 Mg/Ml 1 Ml Vial) 0.2 mg IV Q2M PRN PRN Reason: Opioid Reversal Ondansetron HCl (Ondansetron 4 Mg/2 Ml Vial) 4 mg IVP Q6HR PRN PRN Reason: Nausea And Vomiting Last Admin: 02/10/23 11:01 Dose: 4 mg Pantoprazole Sodium (Pantoprazole 40 Mg Tablet) 40 mg PO AC-BRKFST [facility] Last Admin: 02/13/23 06:34 Dose: 40 mg Pyridoxine HCl (Pyridoxine 50 Mg Tab) 100 mg PO DAILY [facility] Last Admin: 02/13/23 09:05 Dose: 100 mg Simethicone (Simethicone 40 Mg/0.6 Ml Drops 2,000 Mg/30 Ml Bottle) 40 mg PO QID [facility] Last Admin: 02/13/23 17:59 Dose: 40 mg Thiamine HCl (Thiamine 100 Mg Tab) 100 mg PO DAILY [facility] Last Admin: 02/13/23 09:05 Dose: 100 mg Past medical history to include: Hypothyroid, osteomyelitis, COPD, left colectomy with end colostomy Social history: Lives with her boyfriend. Smokes about half a pack a day since age 21. Does use a walker. Physical examination: VITAL SIGNS: 98, 79, 16, 144/84, 93% room air GENERAL:, reclining in bed tired. EYES: Pupils equal. Conjunctiva normal. HEENT: External appearance of nose and ears normal, oral cavity dry mucous membranes NECK: JVD not raised; masses not palpable. HEART: First and second heart sounds are normal; no edema. LUNGS: Respiratory rate normal; decreased breath sounds. ABDOMEN: Soft, distended, mild tender Liver spleen not palpable, no masses palpable. Hyperactive bowel sounds PSYCH: Alert and oriented x3; mood and affect anxious. MUSCULOSKELETAL:No Clubbing/cyanosis;muscles-grossly intact INVESTIGATIONS, reviewed in the clinical context: February 13: Potassium 4.1 creatinine 0.84 Abdominal x-ray [813]: Severe ileus February 12: White count 5.5 hemoglobin 8.9 platelets 153 potassium 4.1 creatinine 0.76 February 04: White count 5.3 hemoglobin 10.4 platelets 139 potassium 4 creatinine 0.80 Abdominal x-ray film personally reviewed by me: Ileus February 01: White count 8.3 hemoglobin 10.6 platelets 100 January 31: WBC 7.3 hemoglobin 8 platelets 103 121 TIBC 211% saturation 9.98 transferred 151 B12 516 folate-40 January 29: White count 8.8 hemoglobin 11.3 platelets 95 potassium 4.4 creatinine 0.94 Previous labs: Platelets 108 in October 2022, 103 in August 2022 Assessment and plan: -Reversal of colostomy. Right and left colectomy with end colostomy in September [address] Worthington Nothing by mouth. Follow with surgery. No flatus - postoperative ileus.: Not improving Clear liquids. -Acute postprocedure blood loss anemia, expected from surgery causing hypotension: Better Received 1 unit of blood -Postoperative hypotension.: Better lactated Ringer's. Received 1 unit of blood -GERD PPI -Acute medical debility from surgery.: Not improving PTOT. Patient refused therapy -Hypothyroid Levothyroxin -COPD in a current smoker DuoNeb -Chronic nicotine dependence, cigarette smoker Nicotine patch -Thrombocytopenia, improved -Anemia of chronic disease hemoglobin 11.3 Iron deficiency from blood loss. Plan liquids. IV fluids. TPN and lipids. Will DC patricia. Again encouraged patient to work with physical therapy. Thank you Dr. Worthington
[2023-02-14 00:06] LABS: Glucose,Whole Blood 108 mg/dL (70-110)
[2023-02-14] MEDS: HEPARIN SODIUM,PORCINE/PF 5,000 UNIT/0.5 ML SYRINGE SQ SCH ×4 (00:28→23:38)
[2023-02-14] MEDS: METOCLOPRAMIDE 5 MG/ML 2 ML VIAL IVP SCH ×5 (00:28→23:38)
[2023-02-14] MEDS: LACTATED RINGERS 1,000 ML IV SCH ×2 (01:39→12:11)
[2023-02-14] MEDS: CALCIUM GLUCONATE IV SCH ×16 (03:23→20:34)
[2023-02-14] MEDS: [UNRECOGNIZED DRUG - OTHER] IV SCH ×16 (03:23→20:34)
[2023-02-14] MEDS: MAGNESIUM SULFATE IV SCH ×16 (03:23→20:34)
[2023-02-14] MEDS: POTASSIUM CHLORIDE IV SCH ×16 (03:23→20:34)
[2023-02-14] MEDS: LEVOTHYROXINE 75 MCG TAB PO SCH (05:34)
[2023-02-14 05:42] LABS: Glucose,Whole Blood 109 mg/dL (70-110)
[2023-02-14 07:23] LABS: African American GFR (CKD) >90 (>60 ml/min/1.73 sqM); Anion Gap 6 mmol/L; Blood Urea Nitrogen 20 mg/dL (7-17); Calcium 7.4 mg/dL (8.4-10.2); Carbon Dioxide 27 mmol/L (22-30); Chloride 103 mmol/L (98-107); Glucose 112 mg/dL (74-99); Magnesium 1.7 mg/dL (1.6-2.3); Non-African American GFR(CKD) 82 (>60 ml/min/1.73 sqM); Phosphorus 4.4 mg/dL (2.5-4.5); Potassium 4.3 mmol/L (3.5-5.1); Sodium 136 mmol/L (137-145)
[2023-02-14] MEDS: PANTOPRAZOLE 40 MG TABLET PO SCH (07:43)
[2023-02-14] MEDS: PYRIDOXINE 50 MG TAB PO SCH (07:44)
[2023-02-14] MEDS: THIAMINE 100 MG TAB PO SCH (07:44)
[2023-02-14] MEDS: LACTOBACILLUS ACIDOPH & BULGAR 1 EACH PACKET PO SCH (07:44)
[2023-02-14] MEDS: GABAPENTIN 300 MG CAP PO SCH (07:44)
[2023-02-14] MEDS: MULTIVITAMINS, THERA 1 EACH TAB PO SCH (07:44)
[2023-02-14] MEDS: IPRATROPIUM-ALBUTEROL 3 ML NEB INHALATION SCH ×3 (08:12→20:12)
[2023-02-14 11:32] LABS: Glucose,Whole Blood 107 mg/dL (70-110)
--- NOTE | 2023-02-14 12:36 | P.PN ---
Progress Note - Text Progress Note Date: 02/14/23 Patient states that she has minimal abdominal pain. She did have some flatus yesterday. The medical doctor ordered a x-ray the abdomen. She still has significantly dilated small bowel loops suggestive of ileus. About her abdomen is softer today. On exam vital signs are stable. Abdomen soft. Patient will have a rectal contrast enema performed tomorrow to evaluate for obstruction.
--- NOTE | 2023-02-14 16:41 | P.PN ---
Progress Note - Text Progress Note Date: 02/14/23 - Chief Complaint Takedown colostomy Hospital course: This is a 63-year-old patient, who had severe ileus of right and left: And underwent right and left colectomy with end colostomy by Dr. Worthington on 09/21/2022. Patient on January 29/yesterday underwent exploratory laboratory with takedown of colostomy and takedown of splenic flexure with partial colectomy and repair of incisional hernia and lysis of adhesions by Dr. Worthington. Laying in bed this morning has an epidural in place. Wound VAC in place. No nausea vomiting. A bit tired January 31: Patient has not passed any flatus or BM. Pain is controlled. Provena wound VAC in place. Some serosanguineous output. Reclining in bed. Epidural in place. Patient has dropped her hemoglobin to 8. Hypotensive. Despite IV fluids. We will transfuse unit of blood. February 01: Epidural discontinued. Provena discontinued. No flatus. Has been advanced to full liquids. Still rather weak. Hasn't been out of bed. PTOT on the case. Patient received a unit of blood yesterday for hypertension and decreased hemoglobin. February 2: In bed. Did not participate with physical therapist. No flatus. Abdomen distended. Patient did vomit earlier. Diet downgraded by surgery. We will do abdominal x-ray in the morning. February 3: No flatus. Abdomen still distended. Abdominal x-rays confirmed ileus. Patient made nothing by mouth. Reglan was added by surgery. Increase activity as tolerated. February 4: Patient thinks she may pass them flatus. Abdomen still distended. Nothing by mouth. Getting Flagyl. February 5: Patient refusing to participate in therapy. Will not do therapy until she eats. X-rays again showing ileus. Surgery ordered NG tube. Patient states she passed and little amount of flatus. Abdomen distended no nausea vomiting February 12: I resumed care of the patient today from [facility]. Patient remains nothing by mouth. In bed. Tired. Said passed a small amount of flatus. Getting IV TPN and lipids. Patient had been refusing therapy. Abdomen distended. February 13: Reclining in bed. Has been passing some flatus. Decrease abdominal distention. TPN and lipids. On clear liquids. I gave spoke to the patient and family the bedside the importance of being out of bed and working with therapy. Abdominal x-ray showing severe dilatation. February 14: Patient up in a recliner. States she's passed a small amount of flatus. DP and lipids. Clear liquids. Discussed Dr. Worthington. Plan for a rectal contrast enema tomorrow. Also discussed about possibility of using a rectal tube. Active Medications Hydrocodone Bitart/Acetaminophen (Hydrocodone/Apap 5-325mg 1 Each Tab) 1 each PO Q4HR PRN PRN Reason: Pain Last Admin: 02/04/23 05:49 Dose: 1 each Albuterol/Ipratropium (Ipratropium-Albuterol 3 Ml Neb) 3 ml INHALATION RT-Q8H PRN PRN Reason: Wheezing Albuterol/Ipratropium (Ipratropium-Albuterol 3 Ml Neb) 3 ml INHALATION RT-TID [facility] Last Admin: 02/14/23 11:55 Dose: Not Given Gabapentin (Gabapentin 300 Mg Cap) 300 mg PO DAILY [facility] Last Admin: 02/14/23 07:44 Dose: 300 mg Heparin Sodium (Porcine) (Heparin Sodium,Porcine/Pf 5,000 Unit/0.5 Ml Syringe) 5,000 unit SQ Q8HR [facility] Last Admin: 02/14/23 07:44 Dose: 5,000 unit Hydromorphone HCl (Hydromorphone 1 Mg/Ml 1 Ml Syringe) 1 mg IVP Q3HR PRN PRN Reason: Pain Last Admin: 02/05/23 19:58 Dose: 1 mg Lactated Ringer's (Lactated Ringers) 1,000 mls @ 75 mls/hr IV .[id number] [facility] Last Admin: 02/14/23 12:11 Dose: 75 mls/hr Fat Emulsion Intravenous 250 (ml/ IV Solution) 250 mls @ 21 mls/hr IV MoTh [facility] Last Admin: 02/11/23 17:04 Dose: 21 mls/hr Potassium Chloride 28 meq/Magnesium Sulfate 1.75 gm/Calcium Gluconate 2 gm/ Sodium Chloride 40 meq/ Potassium Phosphate 9 mmol/ Amino Acids/Dextrose 1,050.5 mls @ 60 mls/hr IV .BY DURATION [facility] Last Admin: 02/14/23 03:23 Dose: 60 mls/hr Parenteral Vitamin Supplement 10 ml/ Zinc/Copper/Manganese/Selenium 1 ml/ Potassium Chloride 28 meq/ Magnesium Sulfate 1.75 gm/ Calcium Gluconate 2 gm/ Sodium Chloride 40 meq/ Potassium Phosphate 9 mmol/ Amino Acids/Dextrose 1,061.5 mls @ 60 mls/hr IV .BY DURATION [facility] Last Admin: 02/13/23 09:32 Dose: 60 mls/hr Lactobacillus Acidoph/Bulgaricus (Lactobacillus Acidoph & Bulgar 1 Each Packet) 1 each PO DAILY [facility] Last Admin: 02/14/23 07:44 Dose: Not Given Levothyroxine Sodium (Levothyroxine 75 Mcg Tab) 75 mcg PO DAILY@0630 [facility] Last Admin: 02/14/23 05:34 Dose: 75 mcg Metoclopramide HCl (Metoclopramide 5 Mg/Ml 2 Ml Vial) 10 mg IVP Q6HR [facility] Last Admin: 02/14/23 12:11 Dose: 10 mg Miscellaneous Information (Potassium Replacement Protocol 1 Each Misc) 1 each MISCELLANE DAILY PRN; Protocol PRN Reason: Per Protocol Miscellaneous Information (Magnesium Replacement Protocol 1 Each Misc) 1 each MISCELLANE DAILY PRN; Protocol PRN Reason: Per Protocol Multivitamins (Multivitamins, Thera 1 Each Tab) 1 each PO DAILY [facility] Last Admin: 02/14/23 07:44 Dose: 1 each Naloxone HCl (Naloxone 0.4 Mg/Ml 1 Ml Vial) 0.2 mg IV Q2M PRN PRN Reason: Opioid Reversal Ondansetron HCl (Ondansetron 4 Mg/2 Ml Vial) 4 mg IVP Q6HR PRN PRN Reason: Nausea And Vomiting Last Admin: 02/10/23 11:01 Dose: 4 mg Pantoprazole Sodium (Pantoprazole 40 Mg Tablet) 40 mg PO AC-BRKFST [facility] Last Admin: 02/14/23 07:43 Dose: 40 mg Pyridoxine HCl (Pyridoxine 50 Mg Tab) 100 mg PO DAILY [facility] Last Admin: 02/14/23 07:44 Dose: 100 mg Thiamine HCl (Thiamine 100 Mg Tab) 100 mg PO DAILY [facility] Last Admin: 02/14/23 07:44 Dose: 100 mg Past medical history to include: Hypothyroid, osteomyelitis, COPD, left colectomy with end colostomy Social history: Lives with her boyfriend. Smokes about half a pack a day since age 21. Does use a walker. Physical examination: VITAL SIGNS: 98.2, 75, 16, 121/77, 96% room air GENERAL:, Up in a recliner. Awake EYES: Pupils equal. Conjunctiva normal. HEENT: External appearance of nose and ears normal, oral cavity dry mucous membranes NECK: JVD not raised; masses not palpable. HEART: First and second heart sounds are normal; no edema. LUNGS: Respiratory rate normal; decreased breath sounds. ABDOMEN: Soft, distended, mild tender Liver spleen not palpable, no masses palpable. Hyperactive bowel sounds PSYCH: Alert and oriented x3; mood and affect anxious. MUSCULOSKELETAL:No Clubbing/cyanosis;muscles-grossly intact INVESTIGATIONS, reviewed in the clinical context: February 14: Potassium 4.3 creatinine 0.77 February 13: Potassium 4.1 creatinine 0.84 Abdominal x-ray [813]: Severe ileus February 12: White count 5.5 hemoglobin 8.9 platelets 153 potassium 4.1 creatinine 0.76 February 04: White count 5.3 hemoglobin 10.4 platelets 139 potassium 4 creatinine 0.80 Abdominal x-ray film personally reviewed by me: Ileus February 01: White count 8.3 hemoglobin 10.6 platelets 100 January 31: WBC 7.3 hemoglobin 8 platelets 103 121 TIBC 211% saturation 9.98 transferred 151 B12 516 folate-40 January 29: White count 8.8 hemoglobin 11.3 platelets 95 potassium 4.4 creatinine 0.94 Previous labs: Platelets 108 in October 2022, 103 in August 2022 Assessment and plan: -Reversal of colostomy. Right and left colectomy with end colostomy in September [address] Worthington Nothing by mouth. Follow with surgery. No flatus - postoperative ileus.: Not improving Clear liquids. Rectal barium enema tomorrow. -Acute postprocedure blood loss anemia, expected from surgery causing hypotension: Better Received 1 unit of blood -Postoperative hypotension.: Better lactated Ringer's. Received 1 unit of blood -GERD PPI -Acute medical debility from surgery.: Not improving PTOT. Patient refused therapy -Hypothyroid Levothyroxin -COPD in a current smoker DuoNeb -Chronic nicotine dependence, cigarette smoker Nicotine patch -Thrombocytopenia, improved -Anemia of chronic disease hemoglobin 11.3 Iron deficiency from blood loss. Clear liquids. IV fluids. TPN and lipids. Rectal contrast enema tomorrow. Discussed with Dr. Worthington Thank you Dr. Worthington
[2023-02-14 16:53] LABS: Glucose,Whole Blood 91 mg/dL (70-110)
[2023-02-14 23:38] LABS: Glucose,Whole Blood 112 mg/dL (70-110)
[2023-02-15] MEDS: LACTATED RINGERS 1,000 ML IV SCH ×2 (03:35→17:22)
[2023-02-15 05:42] LABS: Glucose,Whole Blood 108 mg/dL (70-110)
[2023-02-15 05:50] LABS: African American GFR (CKD) >90 (>60 ml/min/1.73 sqM); Anion Gap 6 mmol/L; Blood Urea Nitrogen 19 mg/dL (7-17); Calcium 7.6 mg/dL (8.4-10.2); Carbon Dioxide 29 mmol/L (22-30); Chloride 102 mmol/L (98-107); Glucose 93 mg/dL (74-99); Magnesium 1.8 mg/dL (1.6-2.3); Non-African American GFR(CKD) 84 (>60 ml/min/1.73 sqM); Phosphorus 4.7 mg/dL (2.5-4.5); Potassium 4.2 mmol/L (3.5-5.1); Sodium 137 mmol/L (137-145)
[2023-02-15] MEDS: METOCLOPRAMIDE 5 MG/ML 2 ML VIAL IVP SCH ×4 (06:39→23:30)
[2023-02-15] MEDS: LEVOTHYROXINE 75 MCG TAB PO SCH (06:39)
[2023-02-15] MEDS: PANTOPRAZOLE 40 MG TABLET PO SCH (06:39)
[2023-02-15] MEDS: IPRATROPIUM-ALBUTEROL 3 ML NEB INHALATION SCH ×3 (08:18→19:09)
[2023-02-15] MEDS: GABAPENTIN 300 MG CAP PO SCH (09:02)
[2023-02-15] MEDS: HEPARIN SODIUM,PORCINE/PF 5,000 UNIT/0.5 ML SYRINGE SQ SCH ×3 (09:02→23:31)
[2023-02-15] MEDS: PYRIDOXINE 50 MG TAB PO SCH (09:02)
[2023-02-15] MEDS: THIAMINE 100 MG TAB PO SCH (09:02)
[2023-02-15] MEDS: MULTIVITAMINS, THERA 1 EACH TAB PO SCH (09:02)
[2023-02-15] MEDS: LACTOBACILLUS ACIDOPH & BULGAR 1 EACH PACKET PO SCH (09:02)
[2023-02-15 11:51] LABS: Glucose,Whole Blood 103 mg/dL (70-110)
--- NOTE | 2023-02-15 12:44 | P.PN ---
Subjective Progress Note Date: 02/15/23 CHIEF COMPLAINT: History of colonic obstruction HISTORY OF PRESENT ILLNESS: Patient is status post exploratory laparotomy, takedown colostomy, takedown splenic flexure, partial colectomy, repair of incisional hernia, lysis of adhesions and partial omentectomy on 01/29/23. She is on TPN for nutrition support. She reports minimal abdominal pain. She did have a bowel movement yesterday. Her abdomen does remain distended but softer than it has been. She is scheduled for a rectal barium enema today to evaluate for bowel obstruction. Afebrile. Sodium 137 potassium 4.2 creatinine 0.76 magnesium 1.8 Patient seen and examined with Dr. coto PHYSICAL EXAM: VITAL SIGNS: Reviewed. GENERAL: Well-developed in no acute distress. ABDOMEN: Distended but softer. Nontender. Patient has dried blood noted on the abdominal dressing at the distal aspect incision ASSESSMENT: 1. History of Colonic obstruction status post colostomy reversal 2. Postoperative ileus expected due to chronic medical condition PLAN: -Follow up on barium enema results -Continue clear liquid diet -Continue TPN for nutrition support -Continue to monitor incision site -Continue Reglan -Continue antiemetics -Continue pain management -Encourage patient to use incentive spirometer -Encourage patient to increase activity level -Patient has been refusing to get out of bed as well as refusing to use the incentive spirometer -GI prophylaxis Protonix and DVT prophylaxis subcu heparin Physician [employer] Laminator note has been reviewed by physician. Signing provider agrees with the documented findings, assessment, and plan of care. Objective - Vital Signs Vital signs: Vital Signs Temp 97.8 F 02/15/23 07:51 Pulse 88 02/15/23 07:51 Resp 18 02/15/23 09:00 BP 119/72 02/15/23 07:51 Pulse Ox 95 02/15/23 08:18 FiO2 Intake & Output 02/14/23 02/15/23 02/15/23 18:59 06:59 18:59 Intake Total 480 1031 118 Output Total 1900 2100 950 Balance -1426 -1549 -832 Intake: Intake, IV Titration 1031 Amount Potassium Chloride 28 meq 1031 Magnesium Sulfate gm 1. 75 gm Calcium Gluconate 2 gm Sodium Chloride 4Meq/ ml Vial 40 meq Potassium Phosphate 9 mmol In Amino Acids 5 %/Dextrose 20 % 1,000 ml @ 60 mls/hr IV . BY DURATION [facility] Rx#: [id number] Oral 480 118 Output: Urine 1900 2100 950 Other: Voiding Method Diaper Diaper Diaper Incontinent External Catheter External Catheter External Catheter - Labs CBC & Chem 7: 02/12/23 06:13 02/15/23 04:39 Labs: Abnormal Lab Results - Last 24 Hours (Table) 02/14/23 02/15/23 Range/Units 23:36 04:39 BUN 19 H (7-17) mg/dL POC Glucose (mg/dL) 112 H (70-110) mg/dL Calcium 7.6 L (8.4-10.2) mg/dL Phosphorus 4.7 H (2.5-4.5) mg/dL
[2023-02-15 16:25] LABS: Glucose,Whole Blood 81 mg/dL (70-110)
--- NOTE | 2023-02-15 16:30 | FL ---
EXAMINATION TYPE: FL Gastrografin enema DATE OF EXAM: 02/15/2023 COMPARISON: [facility] CT 12/17/2022 HISTORY: 63-year-old female patient with recent colostomy takedown and with persistent dilated bowel. No bowel movements. Rule out mechanical obstruction. TECHNIQUE: A single contrast Gastrografin enema study is performed utilizing a total of 960 mL. A t otal of 2 minutes 30 seconds of fluoroscopic time was utilized during procedure and 77 images obtaine d. Total dose area product (DAP) in uGy*m?, mGy*cm? (or similar): 5. FINDINGS: Supervisor Reclamation view of the abdomen shows diffusely dilated colon measuring up to 10.7 cm small guicho l loops dilated up to 5.9 cm. The rectum appears chronically dilated up to 11.1 cm wide. There is initial hesitation in passage of contrast proximal to the dilated rectum. Refer to spot imag e 56 of 77, image showing a significant focal narrowing, suspected site of reanastomosis after colost meredith takedown. After a short segment of normally distending colon, a second focal area of relative mil d caliber narrowing is noted. Contrast fills to the right side of the colon and refluxes into the dilated terminal ileum. IMPRESSION: 1. Chronically dilated rectum with focal stenosis just proximally, suspected site of reanastomosis af ter colostomy takedown. Refer to image 56 of 77 for example. There was initial hesitancy of contrast passing beyond this level. 2. After a normally distending segment of colon, there is an additional area of mild caliber narrowin g in the mid sigmoid colon. 3. Contrast makes its way to the right side of the otherwise diffusely dilated colon and refluxes int o the dilated terminal ileum. Colon dilated up to 10.7 cm and ileum dilated up to 5.9 cm. Chronically dilated rectum measuring up to 11.1 cm wide.
[2023-02-15] MEDS: CALCIUM GLUCONATE IV SCH ×16 (16:59→17:21)
[2023-02-15] MEDS: POTASSIUM CHLORIDE IV SCH ×16 (16:59→17:21)
[2023-02-15] MEDS: MAGNESIUM SULFATE IV SCH ×16 (16:59→17:21)
[2023-02-15] MEDS: [UNRECOGNIZED DRUG - OTHER] IV SCH ×8 (16:59)
[2023-02-15] MEDS: [UNRECOGNIZED DRUG - OTHER] IV SCH ×8 (17:21)
--- NOTE | 2023-02-15 17:57 | P.PN ---
Progress Note - Text Progress Note Date: 02/15/23 The barium enema was reviewed with Dr. Campos. The patient does have filling of the proximal colon. There is no mechanical obstruction of the colorectal anastomosis. Patient does have a dilated rectum. This may be due to an atonic rectum. The patient will be observed.
--- NOTE | 2023-02-15 18:17 | P.PN ---
Progress Note - Text Progress Note Date: 02/15/23 - Chief Complaint Takedown colostomy Hospital course: This is a 63-year-old patient, who had severe ileus of right and left: And underwent right and left colectomy with end colostomy by Dr. Worthington on 09/21/2022. Patient on January 29/yesterday underwent exploratory laboratory with takedown of colostomy and takedown of splenic flexure with partial colectomy and repair of incisional hernia and lysis of adhesions by Dr. Worthington. Laying in bed this morning has an epidural in place. Wound VAC in place. No nausea vomiting. A bit tired January 31: Patient has not passed any flatus or BM. Pain is controlled. Provena wound VAC in place. Some serosanguineous output. Reclining in bed. Epidural in place. Patient has dropped her hemoglobin to 8. Hypotensive. Despite IV fluids. We will transfuse unit of blood. February 01: Epidural discontinued. Provena discontinued. No flatus. Has been advanced to full liquids. Still rather weak. Hasn't been out of bed. PTOT on the case. Patient received a unit of blood yesterday for hypertension and decreased hemoglobin. February 2: In bed. Did not participate with physical therapist. No flatus. Abdomen distended. Patient did vomit earlier. Diet downgraded by surgery. We will do abdominal x-ray in the morning. February 3: No flatus. Abdomen still distended. Abdominal x-rays confirmed ileus. Patient made nothing by mouth. Reglan was added by surgery. Increase activity as tolerated. February 4: Patient thinks she may pass them flatus. Abdomen still distended. Nothing by mouth. Getting Flagyl. February 5: Patient refusing to participate in therapy. Will not do therapy until she eats. X-rays again showing ileus. Surgery ordered NG tube. Patient states she passed and little amount of flatus. Abdomen distended no nausea vomiting February 12: I resumed care of the patient today from [facility]. Patient remains nothing by mouth. In bed. Tired. Said passed a small amount of flatus. Getting IV TPN and lipids. Patient had been refusing therapy. Abdomen distended. February 13: Reclining in bed. Has been passing some flatus. Decrease abdominal distention. TPN and lipids. On clear liquids. I gave spoke to the patient and family the bedside the importance of being out of bed and working with therapy. Abdominal x-ray showing severe dilatation. February 14: Patient up in a recliner. States she's passed a small amount of flatus. DP and lipids. Clear liquids. Discussed Dr. Worthington. Plan for a rectal contrast enema tomorrow. Also discussed about possibility of using a rectal tube. February 15: Patient underwent a barium enema today. Showed dilated loops of bowel. No mechanical obstruction. Discussed with Dr. Worthington. Rectal tube will be tried. Patient again refusing to participate with therapy. Active Medications Hydrocodone Bitart/Acetaminophen (Hydrocodone/Apap 5-325mg 1 Each Tab) 1 each PO Q4HR PRN PRN Reason: Pain Last Admin: 02/04/23 05:49 Dose: 1 each Albuterol/Ipratropium (Ipratropium-Albuterol 3 Ml Neb) 3 ml INHALATION RT-Q8H PRN PRN Reason: Wheezing Albuterol/Ipratropium (Ipratropium-Albuterol 3 Ml Neb) 3 ml INHALATION RT-TID [facility] Last Admin: 02/15/23 11:22 Dose: Not Given Gabapentin (Gabapentin 300 Mg Cap) 300 mg PO DAILY [facility] Last Admin: 02/15/23 09:02 Dose: 300 mg Heparin Sodium (Porcine) (Heparin Sodium,Porcine/Pf 5,000 Unit/0.5 Ml Syringe) 5,000 unit SQ Q8HR [facility] Last Admin: 02/15/23 17:22 Dose: Not Given Hydromorphone HCl (Hydromorphone 1 Mg/Ml 1 Ml Syringe) 1 mg IVP Q3HR PRN PRN Reason: Pain Last Admin: 02/05/23 19:58 Dose: 1 mg Lactated Ringer's (Lactated Ringers) 1,000 mls @ 75 mls/hr IV .[id number] [facility] Last Admin: 02/15/23 17:22 Dose: Not Given Fat Emulsion Intravenous 250 (ml/ IV Solution) 250 mls @ 21 mls/hr IV MoTh [facility] Last Admin: 02/11/23 17:04 Dose: 21 mls/hr Potassium Chloride 36 meq/Magnesium Sulfate 1.75 gm/Calcium Gluconate 2 gm/ Sodium Chloride 40 meq/ Potassium Phosphate 3 mmol/ Amino Acids/Dextrose 1,052.5 mls @ 60 mls/hr IV .BY DURATION [facility] Parenteral Vitamin Supplement 10 ml/ Zinc/Copper/Manganese/Selenium 1 ml/ Potassium Chloride 36 meq/ Magnesium Sulfate 1.75 gm/ Calcium Gluconate 2 gm/ Sodium Chloride 40 meq/ Potassium Phosphate 3 mmol/ Amino Acids/Dextrose 1,063.5 mls @ 60 mls/hr IV .BY DURATION [facility] Last Admin: 02/15/23 16:59 Dose: 60 mls/hr Lactobacillus Acidoph/Bulgaricus (Lactobacillus Acidoph & Bulgar 1 Each Packet) 1 each PO DAILY [facility] Last Admin: 02/15/23 09:02 Dose: 1 each Levothyroxine Sodium (Levothyroxine 75 Mcg Tab) 75 mcg PO DAILY@0630 [facility] Last Admin: 02/15/23 06:39 Dose: 75 mcg Metoclopramide HCl (Metoclopramide 5 Mg/Ml 2 Ml Vial) 10 mg IVP Q6HR [facility] Last Admin: 02/15/23 14:41 Dose: Not Given Miscellaneous Information (Potassium Replacement Protocol 1 Each Misc) 1 each MISCELLANE DAILY PRN; Protocol PRN Reason: Per Protocol Miscellaneous Information (Magnesium Replacement Protocol 1 Each Misc) 1 each MISCELLANE DAILY PRN; Protocol PRN Reason: Per Protocol Multivitamins (Multivitamins, Thera 1 Each Tab) 1 each PO DAILY [facility] Last Admin: 02/15/23 09:02 Dose: 1 each Naloxone HCl (Naloxone 0.4 Mg/Ml 1 Ml Vial) 0.2 mg IV Q2M PRN PRN Reason: Opioid Reversal Ondansetron HCl (Ondansetron 4 Mg/2 Ml Vial) 4 mg IVP Q6HR PRN PRN Reason: Nausea And Vomiting Last Admin: 02/10/23 11:01 Dose: 4 mg Pantoprazole Sodium (Pantoprazole 40 Mg Tablet) 40 mg PO AC-BRKFST [facility] Last Admin: 02/15/23 06:39 Dose: 40 mg Pyridoxine HCl (Pyridoxine 50 Mg Tab) 100 mg PO DAILY [facility] Last Admin: 02/15/23 09:02 Dose: 100 mg Thiamine HCl (Thiamine 100 Mg Tab) 100 mg PO DAILY [facility] Last Admin: 02/15/23 09:02 Dose: 100 mg Past medical history to include: Hypothyroid, osteomyelitis, COPD, left colectomy with end colostomy Social history: Lives with her boyfriend. Smokes about half a pack a day since age 21. Does use a walker. Physical examination: VITAL SIGNS: 97.8, 88, 16, 11 9 x 72, 95% room air GENERAL:, Reclining in bed EYES: Pupils equal. Conjunctiva normal. HEENT: External appearance of nose and ears normal, oral cavity dry mucous membranes NECK: JVD not raised; masses not palpable. HEART: First and second heart sounds are normal; no edema. LUNGS: Respiratory rate normal; decreased breath sounds. ABDOMEN: Soft, distended, nontender Liver spleen not palpable, no masses palpable. Hyperactive bowel sounds PSYCH: Alert and oriented x3; mood and affect anxious. MUSCULOSKELETAL:No Clubbing/cyanosis;muscles-grossly intact INVESTIGATIONS, reviewed in the clinical context: Barium enema done today showed no obstruction. Dilated loops of bowel both sm all and large February 14: Potassium 4.2 creatinine 0.76 February 14: Potassium 4.3 creatinine 0.77 February 13: Potassium 4.1 creatinine 0.84 Abdominal x-ray [813]: Severe ileus February 12: White count 5.5 hemoglobin 8.9 platelets 153 potassium 4.1 creatinine 0.76 February 04: White count 5.3 hemoglobin 10.4 platelets 139 potassium 4 creatinine 0.80 Abdominal x-ray film personally reviewed by me: Ileus February 01: White count 8.3 hemoglobin 10.6 platelets 100 January 31: WBC 7.3 hemoglobin 8 platelets 103 121 TIBC 211% saturation 9.98 transferred 151 B12 516 folate-40 January 29: White count 8.8 hemoglobin 11.3 platelets 95 potassium 4.4 creatinine 0.94 Previous labs: Platelets 108 in October 2022, 103 in August 2022 Assessment and plan: -Reversal of colostomy. Right and left colectomy with end colostomy in September [address] Worthington Nothing by mouth. Follow with surgery. No flatus - postoperative ileus.: Not improving Clear liquids. Rectal barium enema done today showed no obstruction. Try rectal tube -Acute postprocedure blood loss anemia, expected from surgery causing hypotension: Better Received 1 unit of blood -Postoperative hypotension.: Better lactated Ringer's. Received 1 unit of blood -GERD PPI -Acute medical debility from surgery.: Not improving PTOT. Patient refused therapy -Hypothyroid Levothyroxin -COPD in a current smoker DuoNeb -Chronic nicotine dependence, cigarette smoker Nicotine patch -Thrombocytopenia, improved -Anemia of chronic disease hemoglobin 11.3 Iron deficiency from blood loss. Clear liquids. IV fluids. TPN and lipids. Discussed with Dr. Worthington-for rectal tube Thank you Dr. Worthington
[2023-02-15] MEDS: FAT EMULSION 20% 250 ML in EMPTY BAG 1 BAG IV SCH (19:16)
[2023-02-16 00:11] LABS: Glucose,Whole Blood 91 mg/dL (70-110)
[2023-02-16] MEDS: LACTATED RINGERS 1,000 ML IV SCH ×2 (04:13→16:53)
[2023-02-16] MEDS: METOCLOPRAMIDE 5 MG/ML 2 ML VIAL IVP SCH ×4 (06:05→23:14)
[2023-02-16] MEDS: PANTOPRAZOLE 40 MG TABLET PO SCH (06:05)
[2023-02-16] MEDS: LEVOTHYROXINE 75 MCG TAB PO SCH (06:05)
[2023-02-16 06:06] LABS: Glucose,Whole Blood 112 mg/dL (70-110)
[2023-02-16 07:19] LABS: African American GFR (CKD) >90 (>60 ml/min/1.73 sqM); Anion Gap 6 mmol/L; Blood Urea Nitrogen 21 mg/dL (7-17); Calcium 7.8 mg/dL (8.4-10.2); Carbon Dioxide 28 mmol/L (22-30); Chloride 104 mmol/L (98-107); Glucose 108 mg/dL (74-99); Magnesium 1.9 mg/dL (1.6-2.3); Non-African American GFR(CKD) >90 (>60 ml/min/1.73 sqM); Phosphorus 4.5 mg/dL (2.5-4.5); Potassium 4.2 mmol/L (3.5-5.1); Sodium 138 mmol/L (137-145)
[2023-02-16] MEDS: IPRATROPIUM-ALBUTEROL 3 ML NEB INHALATION SCH ×3 (09:10→19:22)
[2023-02-16] MEDS: PYRIDOXINE 50 MG TAB PO SCH (10:13)
[2023-02-16] MEDS: GABAPENTIN 300 MG CAP PO SCH (10:14)
[2023-02-16] MEDS: THIAMINE 100 MG TAB PO SCH (10:14)
[2023-02-16] MEDS: HEPARIN SODIUM,PORCINE/PF 5,000 UNIT/0.5 ML SYRINGE SQ SCH ×3 (10:14→23:14)
[2023-02-16] MEDS: LACTOBACILLUS ACIDOPH & BULGAR 1 EACH PACKET PO SCH (10:14)
[2023-02-16] MEDS: [UNRECOGNIZED DRUG - OTHER] IV SCH ×8 (10:15)
[2023-02-16] MEDS: POTASSIUM CHLORIDE IV SCH ×8 (10:15)
[2023-02-16] MEDS: CALCIUM GLUCONATE IV SCH ×8 (10:15)
[2023-02-16] MEDS: MAGNESIUM SULFATE IV SCH ×8 (10:15)
[2023-02-16] MEDS: MULTIVITAMINS, THERA 1 EACH TAB PO SCH (10:16)
[2023-02-16 11:44] LABS: Glucose,Whole Blood 107 mg/dL (70-110)
--- NOTE | 2023-02-16 13:21 | XR ---
EXAMINATION TYPE: XR abdomen 2V DATE OF EXAM: 02/16/2023 COMPARISON: 02/15/2023 HISTORY: Pain TECHNIQUE: Two view abdominal series FINDINGS: The osseous structures are intact. The bowel gas pattern is nonspecific. Small left pleural effusion and basilar atelectasis. Hypertrophic degenerative changes spine. Contrast seen throughout the colon . Surgical elida are noted. There is a rectal tube overlying the pelvis appears to be overlying con trast within the rectum. Gastric bubble appears to be prominent. Severe arthropathy left IMPRESSION: 1. There are persistent dilation of small bowel loops in level. Appears reduced from prior exam. Plac ement of a rectal tube overlying the pelvis. Obstructive pattern in the differential diagnosis.
[2023-02-16 14:18] LABS: Basophils # (A) 0.03 X 10*3/uL (0.00-0.10); Basophils % (A) 0.6 %; Eosinophils % (A) 3.8 %; HCT 31.7 % (37.2-46.3); HGB 9.4 g/dL (12.0-15.0); Immature Grans, Automated 0.6 %; Lymphocytes # (A) 1.04 X 10*3/uL (0.90-5.00); MCH 29.4 pg (27.0-32.0); MCHC 29.7 g/dL (32.0-37.0); MCV 99.1 fL (80.0-97.0); Mean Platelet Volume 12.6 fL (9.5-12.2); Monocytes # (A) 0.53 X 10*3/uL (0.20-1.00); Monocytes % (A) 10.2 %; NRBC Per 100 WBC 0 /100 WBCS (0.0-0.0); Neutrophils # (A) 3.38 X 10*3/uL (1.80-7.70); Neutrophils % (A) 64.8 %; Platelet Count 159 X 10*3/uL (140-440); RDW 17.2 % (11.5-14.5); WBC 5.21 X 10*3/uL (4.50-10.00)
--- NOTE | 2023-02-16 15:33 | P.PN ---
Subjective Progress Note Date: 02/16/23 CHIEF COMPLAINT: History of colonic obstruction HISTORY OF PRESENT ILLNESS: Patient is status post exploratory laparotomy, takedown colostomy, takedown splenic flexure, partial colectomy, repair of incisional hernia, lysis of adhesions and partial omentectomy on 01/29/23. Barium enema has shown no evidence of bowel obstruction. Did reveal a chronically dilated rectum with focal stenosis. Patient had rectal tube placed. She did have air and stool output with the rectal tube placement. Patient's ab dominal distention is decreasing. She denies any abdominal pain. Her nausea is slightly improved. Abdominal x-ray shows persistent dilation of small bowel loops. Appears reduced from prior exam. Afebrile. WBC is 5.21 Hgb 9.4 platelets 159 na 138 potassium is 4.2 creatinine 0.70 magnesium 1.9 Patient seen and examined with Dr. coto PHYSICAL EXAM: VITAL SIGNS: Reviewed. GENERAL: Well-developed in no acute distress. ABDOMEN: Decrease in abdominal distention. Nontender. Dressing clean dry and intact ASSESSMENT: 1. History of Colonic obstruction status post colostomy reversal 2. Postoperative ileus expected due to chronic medical condition 3. Atonic rectum PLAN: -Continue rectal tube. Patient may require anal dilation -Continue clear liquid diet -Continue TPN for nutrition support -Continue to monitor incision site -Continue Reglan -Continue antiemetics -Continue pain management -Encourage patient to use incentive spirometer -Encourage patient to increase activity level -Patient has been refusing to get out of bed as well as refusing to use the incentive spirometer -GI prophylaxis Protonix and DVT prophylaxis subcu heparin Physician Ham Passer note has been reviewed by physician. Signing provider agrees with the documented findings, assessment, and plan of care. Objective - Vital Signs Vital signs: Vital Signs Temp 98.2 F 02/16/23 07:05 Pulse 82 02/16/23 07:05 Resp 18 02/16/23 07:05 BP 125/77 02/16/23 07:05 Pulse Ox 96 02/16/23 07:05 FiO2 Intake & Output 02/15/23 02/16/23 02/16/23 18:59 06:59 18:59 Intake Total 118 Output Total 950 1100 Balance -832 -1100 Weight 55.57 kg Intake: Oral 118 Output: Urine 950 1100 Other: Voiding Method Diaper Diaper External Catheter External Catheter # Bowel Movements 1 - Labs CBC & Chem 7: 02/16/23 06:40 02/16/23 06:40 Labs: Abnormal Lab Results - Last 24 Hours (Table) 02/16/23 02/16/23 02/16/23 Range/Units 06:05 06:40 06:40 RBC 3.20 L (4.10-5.20) X 10*6/uL Hgb 9.4 L (12.0-15.0) g/dL Hct 31.7 L (37.2-46.3) % MCV 99.1 H (80.0-97.0) fL MCHC 29.7 L (32.0-37.0) g/dL RDW 17.2 H (11.5-14.5) % MPV 12.6 H (9.5-12.2) fL BUN 21 H (7-17) mg/dL Glucose 108 H (74-99) mg/dL POC Glucose (mg/dL) 112 H (70-110) mg/dL Calcium 7.8 L (8.4-10.2) mg/dL
--- NOTE | 2023-02-16 16:20 | P.PN ---
Progress Note - Text Progress Note Date: 02/16/23 - Chief Complaint Takedown colostomy Hospital course: This is a 63-year-old patient, who had severe ileus of right and left: And underwent right and left colectomy with end colostomy by Dr. Worthington on 09/21/2022. Patient on January 29/yesterday underwent exploratory laboratory with takedown of colostomy and takedown of splenic flexure with partial colectomy and repair of incisional hernia and lysis of adhesions by Dr. Worthington. Laying in bed this morning has an epidural in place. Wound VAC in place. No nausea vomiting. A bit tired January 31: Patient has not passed any flatus or BM. Pain is controlled. Provena wound VAC in place. Some serosanguineous output. Reclining in bed. Epidural in place. Patient has dropped her hemoglobin to 8. Hypotensive. Despite IV fluids. We will transfuse unit of blood. February 01: Epidural discontinued. Provena discontinued. No flatus. Has been advanced to full liquids. Still rather weak. Hasn't been out of bed. PTOT on the case. Patient received a unit of blood yesterday for hypertension and decreased hemoglobin. February 2: In bed. Did not participate with physical therapist. No flatus. Abdomen distended. Patient did vomit earlier. Diet downgraded by surgery. We will do abdominal x-ray in the morning. February 3: No flatus. Abdomen still distended. Abdominal x-rays confirmed ileus. Patient made nothing by mouth. Reglan was added by surgery. Increase activity as tolerated. February 4: Patient thinks she may pass them flatus. Abdomen still distended. Nothing by mouth. Getting Flagyl. February 5: Patient refusing to participate in therapy. Will not do therapy until she eats. X-rays again showing ileus. Surgery ordered NG tube. Patient states she passed and little amount of flatus. Abdomen distended no nausea vomiting February 12: I resumed care of the patient today from [facility]. Patient remains nothing by mouth. In bed. Tired. Said passed a small amount of flatus. Getting IV TPN and lipids. Patient had been refusing therapy. Abdomen distended. February 13: Reclining in bed. Has been passing some flatus. Decrease abdominal distention. TPN and lipids. On clear liquids. I gave spoke to the patient and family the bedside the importance of being out of bed and working with therapy. Abdominal x-ray showing severe dilatation. February 14: Patient up in a recliner. States she's passed a small amount of flatus. DP and lipids. Clear liquids. Discussed Dr. Worthington. Plan for a rectal contrast enema tomorrow. Also discussed about possibility of using a rectal tube. February 15: Patient underwent a barium enema today. Showed dilated loops of bowel. No mechanical obstruction. Discussed with Dr. Worthington. Rectal tube will be tried. Patient again refusing to participate with therapy. February 16: Patient had a rectal tube placed yesterday. Legs some liquid stool and in a good gush of flatus was obtained. Abdomen more soft and flat in today. Repeat x-ray showed dilatation of small bowel loops. The reduction from prior exam. Patient remains on clear liquid diet. Active Medications Hydrocodone Bitart/Acetaminophen (Hydrocodone/Apap 5-325mg 1 Each Tab) 1 each PO Q4HR PRN PRN Reason: Pain Last Admin: 02/04/23 05:49 Dose: 1 each Albuterol/Ipratropium (Ipratropium-Albuterol 3 Ml Neb) 3 ml INHALATION RT-Q8H PRN PRN Reason: Wheezing Albuterol/Ipratropium (Ipratropium-Albuterol 3 Ml Neb) 3 ml INHALATION RT-TID [facility] Last Admin: 02/16/23 11:47 Dose: Not Given Gabapentin (Gabapentin 300 Mg Cap) 300 mg PO DAILY [facility] Last Admin: 02/16/23 10:14 Dose: 300 mg Heparin Sodium (Porcine) (Heparin Sodium,Porcine/Pf 5,000 Unit/0.5 Ml Syringe) 5,000 unit SQ Q8HR [facility] Last Admin: 02/16/23 10:14 Dose: 5,000 unit Hydromorphone HCl (Hydromorphone 1 Mg/Ml 1 Ml Syringe) 1 mg IVP Q3HR PRN PRN Reason: Pain Last Admin: 02/05/23 19:58 Dose: 1 mg Lactated Ringer's (Lactated Ringers) 1,000 mls @ 75 mls/hr IV .[id number] [facility] Last Admin: 02/16/23 04:13 Dose: 75 mls/hr Fat Emulsion Intravenous 250 (ml/ IV Solution) 250 mls @ 21 mls/hr IV MoTh [facility] Last Admin: 02/15/23 19:16 Dose: 21 mls/hr Potassium Chloride 36 meq/Magnesium Sulfate 1.75 gm/Calcium Gluconate 2 gm/ Sodium Chloride 40 meq/ Potassium Phosphate 3 mmol/ Amino Acids/Dextrose 1,052.5 mls @ 60 mls/hr IV .BY DURATION [facility] Last Admin: 02/16/23 10:15 Dose: 60 mls/hr Parenteral Vitamin Supplement 10 ml/ Zinc/Copper/Manganese/Selenium 1 ml/ Potassium Chloride 36 meq/ Magnesium Sulfate 1.75 gm/ Calcium Gluconate 2 gm/ Sodium Chloride 40 meq/ Potassium Phosphate 3 mmol/ Amino Acids/Dextrose 1,063.5 mls @ 60 mls/hr IV .BY DURATION [facility] Last Admin: 02/15/23 16:59 Dose: 60 mls/hr Lactobacillus Acidoph/Bulgaricus (Lactobacillus Acidoph & Bulgar 1 Each Packet) 1 each PO DAILY [facility] Last Admin: 02/16/23 10:14 Dose: 1 each Levothyroxine Sodium (Levothyroxine 75 Mcg Tab) 75 mcg PO DAILY@0630 [facility] Last Admin: 02/16/23 06:05 Dose: 75 mcg Metoclopramide HCl (Metoclopramide 5 Mg/Ml 2 Ml Vial) 10 mg IVP Q6HR [facility] Last Admin: 02/16/23 11:56 Dose: 10 mg Miscellaneous Information (Potassium Replacement Protocol 1 Each Misc) 1 each MISCELLANE DAILY PRN; Protocol PRN Reason: Per Protocol Miscellaneous Information (Magnesium Replacement Protocol 1 Each Misc) 1 each MISCELLANE DAILY PRN; Protocol PRN Reason: Per Protocol Multivitamins (Multivitamins, Thera 1 Each Tab) 1 each PO DAILY [facility] Last Admin: 02/16/23 10:16 Dose: 1 each Naloxone HCl (Naloxone 0.4 Mg/Ml 1 Ml Vial) 0.2 mg IV Q2M PRN PRN Reason: Opioid Reversal Ondansetron HCl (Ondansetron 4 Mg/2 Ml Vial) 4 mg IVP Q6HR PRN PRN Reason: Nausea And Vomiting Last Admin: 02/10/23 11:01 Dose: 4 mg Pantoprazole Sodium (Pantoprazole 40 Mg Tablet) 40 mg PO AC-BRKFST [facility] Last Admin: 02/16/23 06:05 Dose: 40 mg Pyridoxine HCl (Pyridoxine 50 Mg Tab) 100 mg PO DAILY [facility] Last Admin: 02/16/23 10:13 Dose: 100 mg Thiamine HCl (Thiamine 100 Mg Tab) 100 mg PO DAILY [facility] Last Admin: 02/16/23 10:14 Dose: 100 mg Past medical history to include: Hypothyroid, osteomyelitis, COPD, left colectomy with end colostomy Social history: Lives with her boyfriend. Smokes about half a pack a day since age 21. Does use a walker. Physical examination: VITAL SIGNS: 98.1, 79, 17, 120/75, 98% room air GENERAL:, Reclining in bed, comfortable EYES: Pupils equal. Conjunctiva normal. HEENT: External appearance of nose and ears normal, oral cavity dry mucous membranes NECK: JVD not raised; masses not palpable. HEART: First and second heart sounds are normal; no edema. LUNGS: Respiratory rate normal; decreased breath sounds. ABDOMEN: Soft, less distended, nontender Liver spleen not palpable, no masses palpable. Hyperactive bowel sounds PSYCH: Alert and oriented x3; mood and affect anxious. MUSCULOSKELETAL:No Clubbing/cyanosis;muscles-grossly intact INVESTIGATIONS, reviewed in the clinical context: February 16: White count 5.2 hemoglobin 9.4 potassium 4.2 creatinine 0.7 magnesia 1.9 Barium enema done today showed no obstruction. Dilated loops of bowel both small and large February 14: Potassium 4.2 creatinine 0.76 February 14: Potassium 4.3 creatinine 0.77 February 13: Potassium 4.1 creatinine 0.84 Abdominal x-ray [813]: Severe ileus February 12: White count 5.5 hemoglobin 8.9 platelets 153 potassium 4.1 creatinine 0.76 February 04: White count 5.3 hemoglobin 10.4 platelets 139 potassium 4 creatinine 0.80 Abdominal x-ray film personally reviewed by me: Ileus February 01: White count 8.3 hemoglobin 10.6 platelets 100 January 31: WBC 7.3 hemoglobin 8 platelets 103 121 TIBC 211% saturation 9.98 transferred 151 B12 516 folate-40 January 29: White count 8.8 hemoglobin 11.3 platelets 95 potassium 4.4 creatinine 0.94 Previous labs: Platelets 108 in October 2022, 103 in August 2022 Assessment and plan: -Reversal of colostomy. Right and left colectomy with end colostomy in September [address] Worthington Nothing by mouth. Follow with surgery. No flatus - postoperative ileus.: Some improvement Clear liquids. Rectal barium enema done today showed no obstruction. Rectal tube showed improvement in ileus the small bowel still prominent -Acute postprocedure blood loss anemia, expected from surgery causing hypotension: Better Received 1 unit of blood -Postoperative hypotension.: Better lactated Ringer's. Received 1 unit of blood -GERD PPI -Acute medical debility from surgery.: Not improving PTOT. Patient refused therapy -Hypothyroid Levothyroxin -COPD in a current smoker DuoNeb -Chronic nicotine dependence, cigarette smoker Nicotine patch -Thrombocytopenia, improved -Anemia of chronic disease hemoglobin 11.3 Iron deficiency from blood loss. Clear liquids. IV fluids. TPN and lipids. Rectal tube to continue. Thank you Dr. Worthington
[2023-02-16 16:28] LABS: Glucose,Whole Blood 104 mg/dL (70-110)
[2023-02-17 00:16] LABS: Glucose,Whole Blood 106 mg/dL (70-110)
[2023-02-17] MEDS: CALCIUM GLUCONATE IV SCH ×24 (01:32→21:16)
[2023-02-17] MEDS: [UNRECOGNIZED DRUG - OTHER] IV SCH ×24 (01:32→21:16)
[2023-02-17] MEDS: POTASSIUM CHLORIDE IV SCH ×24 (01:32→21:16)
[2023-02-17] MEDS: MAGNESIUM SULFATE IV SCH ×24 (01:32→21:16)
[2023-02-17] MEDS: LEVOTHYROXINE 75 MCG TAB PO SCH (05:20)
[2023-02-17] MEDS: PANTOPRAZOLE 40 MG TABLET PO SCH (05:20)
[2023-02-17] MEDS: METOCLOPRAMIDE 5 MG/ML 2 ML VIAL IVP SCH ×4 (05:20→23:06)
[2023-02-17 05:47] LABS: ALT 38 U/L (4-34); AST 40 U/L (14-36); African American GFR (CKD) >90 (>60 ml/min/1.73 sqM); Albumin 2.5 g/dL (3.5-5.0); Alkaline Phosphatase 75 U/L (38-126); Anion Gap 6 mmol/L; Blood Urea Nitrogen 18 mg/dL (7-17); Calcium 7.7 mg/dL (8.4-10.2); Carbon Dioxide 27 mmol/L (22-30); Chloride 105 mmol/L (98-107); Globulin 2.6 g/dL; Glucose 108 mg/dL (74-99); Magnesium 1.7 mg/dL (1.6-2.3); Non-African American GFR(CKD) >90 (>60 ml/min/1.73 sqM); Phosphorus 4.6 mg/dL (2.5-4.5); Potassium 4.2 mmol/L (3.5-5.1); Sodium 138 mmol/L (137-145); Total Bilirubin 0.2 mg/dL (0.2-1.3); Total Protein 5.1 g/dL (6.3-8.2)
[2023-02-17 06:01] LABS: Glucose,Whole Blood 124 mg/dL (70-110)
[2023-02-17] MEDS: LACTATED RINGERS 1,000 ML IV SCH ×3 (06:11→21:20)
[2023-02-17] MEDS: THIAMINE 100 MG TAB PO SCH (08:26)
[2023-02-17] MEDS: HEPARIN SODIUM,PORCINE/PF 5,000 UNIT/0.5 ML SYRINGE SQ SCH ×3 (08:26→23:06)
[2023-02-17] MEDS: MULTIVITAMINS, THERA 1 EACH TAB PO SCH (08:26)
[2023-02-17] MEDS: PYRIDOXINE 50 MG TAB PO SCH (08:26)
[2023-02-17] MEDS: GABAPENTIN 300 MG CAP PO SCH (08:26)
[2023-02-17] MEDS: LACTOBACILLUS ACIDOPH & BULGAR 1 EACH PACKET PO SCH (08:26)
[2023-02-17] MEDS: IPRATROPIUM-ALBUTEROL 3 ML NEB INHALATION SCH ×3 (08:46→21:16)
--- NOTE | 2023-02-17 10:43 | XR ---
EXAMINATION TYPE: XR abdomen 1V DATE OF EXAM: 02/17/2023 COMPARISON: NONE HISTORY: Abdominal distention TECHNIQUE: One view abdominal series FINDINGS: The osseous structures are intact. The bowel gas pattern is nonspecific. There is contrast within th e bowel with marked distention of both small and large bowel loops increased from yesterday's exam. R ectal tube noted. Arthropathy of the hips greater on the left and degenerative changes of the spine. Surgical clips noted. Upper abdomen near the diaphragm not included in assessment for free air limite d. IMPRESSION: 1. Interval increase in distention of the large bowel loops and small bowel loops suggestive of obstr uction with marked dilation now noted. Correlate clinically.
[2023-02-17 11:55] LABS: Glucose,Whole Blood 103 mg/dL (70-110)
--- NOTE | 2023-02-17 12:41 | P.PN ---
Subjective Progress Note Date: 02/17/23 CHIEF COMPLAINT: History of colonic obstruction HISTORY OF PRESENT ILLNESS: Patient is status post exploratory laparotomy, takedown colostomy, takedown splenic flexure, partial colectomy, repair of incisional hernia, lysis of adhesions and partial omentectomy on 01/29/23. Patient's abdomen continues to become softer and less distended with the rectal tube. She is having stool output. Nausea is improved. She denies any pain. No vomiting. Afebrile. Sodium 13 potassiums 4.2 creatinine 0.71 mildly elevated LFTs Patient seen and examined with Dr. coto PHYSICAL EXAM: VITAL SIGNS: Reviewed. GENERAL: Well-developed in no acute distress. ABDOMEN: Softer. Decrease in abdominal distention. Nontender. Dressing clean dry and intact ASSESSMENT: 1. History of Colonic obstruction status post colostomy reversal 2. Postoperative ileus expected due to chronic medical condition 3. Atonic rectum PLAN: -Continue rectal tube. Patient may require anal dilation -Advance diet to full liquids -Ordered AXR for further evaluation of ileus -Continue TPN for nutrition support -Continue Reglan -Continue antiemetics -Continue pain management -Encourage patient to use incentive spirometer -Encourage patient to increase activity level -GI prophylaxis Protonix and DVT prophylaxis subcu heparin Physician Deboner note has been reviewed by physician. Signing provider agrees with the documented findings, assessment, and plan of care. Objective - Vital Signs Vital signs: Vital Signs Temp 98.6 F 02/17/23 08:00 Pulse 81 02/17/23 08:00 Resp 17 02/17/23 08:00 BP 150/81 02/17/23 08:00 Pulse Ox 93 L 02/17/23 08:46 FiO2 Intake & Output 02/16/23 02/17/23 02/17/23 18:59 06:59 18:59 Intake Total 980 1052.5 Output Total 2100 Balance 980 -1047.5 Intake: Intake, IV Titration 480 1052.5 Amount Mvi, Adult No.4 with Vit 480 K 10 ml Trace (Conc-1Ml/ Dose) 1 ml Potassium Chloride 36 meq Magnesium Sulfate gm 1.75 gm Calcium Gluconate 2 gm Sodium Chloride 4Meq/ml Vial 40 meq Potassium Phosphate 3 mmol In Amino Acids 5 %/Dextrose 20 % 1,000 ml @ 60 mls/hr IV . [facility] Rx#: [id number] Potassium Chloride 36 meq 1052.5 Magnesium Sulfate gm 1. 75 gm Calcium Gluconate 2 gm Sodium Chloride 4Meq/ ml Vial 40 meq Potassium Phosphate 3 mmol In Amino Acids 5 %/Dextrose 20 % 1,000 ml @ 60 mls/hr IV . [facility] Rx#: [id number] Oral 500 Output: Urine 2100 Other: Voiding Method External Catheter External Catheter # Voids 3 - Labs CBC & Chem 7: 02/16/23 06:40 02/17/23 04:55 Labs: Abnormal Lab Results - Last 24 Hours (Table) 02/16/23 02/17/23 02/17/23 Range/Units 06:40 04:55 05:59 RBC 3.20 L (4.10-5.20) X 10*6/uL Hgb 9.4 L (12.0-15.0) g/dL Hct 31.7 L (37.2-46.3) % MCV 99.1 H (80.0-97.0) fL MCHC 29.7 L (32.0-37.0) g/dL RDW 17.2 H (11.5-14.5) % MPV 12.6 H (9.5-12.2) fL BUN 18 H (7-17) mg/dL Glucose 108 H (74-99) mg/dL POC Glucose (mg/dL) 124 H (70-110) mg/dL Calcium 7.7 L (8.4-10.2) mg/dL Phosphorus 4.6 H (2.5-4.5) mg/dL AST 40 H (14-36) U/L ALT 38 H (4-34) U/L Total Protein 5.1 L (6.3-8.2) g/dL Albumin 2.5 L (3.5-5.0) g/dL
[2023-02-17] MEDS: ACETAMINOPHEN TAB 325 MG TAB PO PRN (16:29)
[2023-02-17] MEDS ORDERED: NEOSTIGMINE 1 MG/ML 10 ML VIAL IV ONE (18:00)
[2023-02-17 18:05] LABS: Glucose,Whole Blood 104 mg/dL (70-110)
--- NOTE | 2023-02-17 18:05 | P.PN ---
Progress Note - Text Progress Note Date: 02/17/23 - Chief Complaint Takedown colostomy Hospital course: This is a 63-year-old patient, who had severe ileus of right and left: And underwent right and left colectomy with end colostomy by Dr. Worthington on 09/21/2022. Patient on January 29/yesterday underwent exploratory laboratory with takedown of colostomy and takedown of splenic flexure with partial colectomy and repair of incisional hernia and lysis of adhesions by Dr. Worthington. Laying in bed this morning has an epidural in place. Wound VAC in place. No nausea vomiting. A bit tired January 31: Patient has not passed any flatus or BM. Pain is controlled. Provena wound VAC in place. Some serosanguineous output. Reclining in bed. Epidural in place. Patient has dropped her hemoglobin to 8. Hypotensive. Despite IV fluids. We will transfuse unit of blood. February 01: Epidural discontinued. Provena discontinued. No flatus. Has been advanced to full liquids. Still rather weak. Hasn't been out of bed. PTOT on the case. Patient received a unit of blood yesterday for hypertension and decreased hemoglobin. February 2: In bed. Did not participate with physical therapist. No flatus. Abdomen distended. Patient did vomit earlier. Diet downgraded by surgery. We will do abdominal x-ray in the morning. February 3: No flatus. Abdomen still distended. Abdominal x-rays confirmed ileus. Patient made nothing by mouth. Reglan was added by surgery. Increase activity as tolerated. February 4: Patient thinks she may pass them flatus. Abdomen still distended. Nothing by mouth. Getting Flagyl. February 5: Patient refusing to participate in therapy. Will not do therapy until she eats. X-rays again showing ileus. Surgery ordered NG tube. Patient states she passed and little amount of flatus. Abdomen distended no nausea vomiting February 12: I resumed care of the patient today from [facility]. Patient remains nothing by mouth. In bed. Tired. Said passed a small amount of flatus. Getting IV TPN and lipids. Patient had been refusing therapy. Abdomen distended. February 13: Reclining in bed. Has been passing some flatus. Decrease abdominal distention. TPN and lipids. On clear liquids. I gave spoke to the patient and family the bedside the importance of being out of bed and working with therapy. Abdominal x-ray showing severe dilatation. February 14: Patient up in a recliner. States she's passed a small amount of flatus. DP and lipids. Clear liquids. Discussed Dr. Worthington. Plan for a rectal contrast enema tomorrow. Also discussed about possibility of using a rectal tube. February 15: Patient underwent a barium enema today. Showed dilated loops of bowel. No mechanical obstruction. Discussed with Dr. Worthington. Rectal tube will be tried. Patient again refusing to participate with therapy. February 16: Patient had a rectal tube placed yesterday. Legs some liquid stool and in a good gush of flatus was obtained. Abdomen more soft and flat in today. Repeat x-ray showed dilatation of small bowel loops. The reduction from prior exam. Patient remains on clear liquid diet. February 17: Putting out some liquid stool. Some abdominal distention. Repeat abdominal x-ray showing further increases ileus. Rectal tube was present. Patient has been made nothing by mouth. Discussed with Dr. Worthington. We will give a trial of neostigmine 5 mg or 5 minutes. Discusses pharmacy. And the nurse. Active Medications Acetaminophen (Acetaminophen Tab 325 Mg Tab) 650 mg PO Q6HR PRN PRN Reason: Fever and/ or Pain Last Admin: 02/17/23 16:29 Dose: 650 mg Albuterol/Ipratropium (Ipratropium-Albuterol 3 Ml Neb) 3 ml INHALATION RT-Q8H PRN PRN Reason: Wheezing Albuterol/Ipratropium (Ipratropium-Albuterol 3 Ml Neb) 3 ml INHALATION RT-TID [facility] Last Admin: 02/17/23 11:34 Dose: Not Given Gabapentin (Gabapentin 300 Mg Cap) 300 mg PO DAILY [facility] Last Admin: 02/17/23 08:26 Dose: 300 mg Heparin Sodium (Porcine) (Heparin Sodium,Porcine/Pf 5,000 Unit/0.5 Ml Syringe) 5,000 unit SQ Q8HR [facility] Last Admin: 02/17/23 16:29 Dose: 5,000 unit Lactated Ringer's (Lactated Ringers) 1,000 mls @ 75 mls/hr IV .[id number] [facility] Last Admin: 02/17/23 12:17 Dose: 75 mls/hr Fat Emulsion Intravenous 250 (ml/ IV Solution) 250 mls @ 21 mls/hr IV MoTh [facility] Last Admin: 02/15/23 19:16 Dose: 21 mls/hr Potassium Chloride 36 meq/Magnesium Sulfate 1.75 gm/Calcium Gluconate 2 gm/ Sodium Chloride 40 meq/ Potassium Phosphate 3 mmol/ Amino Acids/Dextrose 1,052.5 mls @ 60 mls/hr IV .BY DURATION [facility] Last Admin: 02/17/23 04:01 Dose: 60 mls/hr Parenteral Vitamin Supplement 10 ml/ Zinc/Copper/Manganese/Selenium 1 ml/ Potassium Chloride 36 meq/ Magnesium Sulfate 1.75 gm/ Calcium Gluconate 2 gm/ Sodium Chloride 40 meq/ Potassium Phosphate 3 mmol/ Amino Acids/Dextrose 1,063.5 mls @ 60 mls/hr IV .BY DURATION [facility] Last Admin: 02/15/23 16:59 Dose: 60 mls/hr Lactobacillus Acidoph/Bulgaricus (Lactobacillus Acidoph & Bulgar 1 Each Packet) 1 each PO DAILY [facility] Last Admin: 02/17/23 08:26 Dose: 1 each Levothyroxine Sodium (Levothyroxine 75 Mcg Tab) 75 mcg PO DAILY@0630 [facility] Last Admin: 02/17/23 05:20 Dose: 75 mcg Metoclopramide HCl (Metoclopramide 5 Mg/Ml 2 Ml Vial) 10 mg IVP Q6HR [facility] Last Admin: 02/17/23 12:15 Dose: 10 mg Miscellaneous Information (Potassium Replacement Protocol 1 Each Misc) 1 each MISCELLANE DAILY PRN; Protocol PRN Reason: Per Protocol Miscellaneous Information (Magnesium Replacement Protocol 1 Each Misc) 1 each MISCELLANE DAILY PRN; Protocol PRN Reason: Per Protocol Multivitamins (Multivitamins, Thera 1 Each Tab) 1 each PO DAILY [facility] Last Admin: 02/17/23 08:26 Dose: 1 each Naloxone HCl (Naloxone 0.4 Mg/Ml 1 Ml Vial) 0.2 mg IV Q2M PRN PRN Reason: Opioid Reversal Ondansetron HCl (Ondansetron 4 Mg/2 Ml Vial) 4 mg IVP Q6HR PRN PRN Reason: Nausea And Vomiting Last Admin: 02/10/23 11:01 Dose: 4 mg Pantoprazole Sodium (Pantoprazole 40 Mg Tablet) 40 mg PO [id number] [facility] Last Admin: 02/17/23 05:20 Dose: 40 mg Pyridoxine HCl (Pyridoxine 50 Mg Tab) 100 mg PO DAILY [facility] Last Admin: 02/17/23 08:26 Dose: 100 mg Thiamine HCl (Thiamine 100 Mg Tab) 100 mg PO DAILY [facility] Last Admin: 02/17/23 08:26 Dose: 100 mg Past medical history to include: Hypothyroid, osteomyelitis, COPD, left colectomy with end colostomy Social history: Lives with her boyfriend. Smokes about half a pack a day since age 21. Does use a walker. Physical examination: VITAL SIGNS: 98.3, 91, 16, 139/77, 95% room air GENERAL:, Reclining in bed, comfortable EYES: Pupils equal. Conjunctiva normal. HEENT: External appearance of nose and ears normal, oral cavity dry mucous membranes NECK: JVD not raised; masses not palpable. HEART: First and second heart sounds are normal; no edema. LUNGS: Respiratory rate normal; decreased breath sounds. ABDOMEN: Soft, some distention, nontender Liver spleen not palpable, no masses palpable. Hyperactive bowel sounds PSYCH: Alert and oriented x3; mood and affect anxious. MUSCULOSKELETAL:No Clubbing/cyanosis;muscles-grossly intact INVESTIGATIONS, reviewed in the clinical context: February 16: White count 5.2 hemoglobin 9.4 potassium 4.2 creatinine 0.7 magnesia 1.9 Barium enema done today showed no obstruction. Dilated loops of bowel both small and large February 14: Potassium 4.2 creatinine 0.76 February 14: Potassium 4.3 creatinine 0.77 February 13: Potassium 4.1 creatinine 0.84 Abdominal x-ray [813]: Severe ileus February 12: White count 5.5 hemoglobin 8.9 platelets 153 potassium 4.1 creatinine 0.76 February 4: White count 5.3 hemoglobin 10.4 platelets 139 potassium 4 creatinine 0.80 Abdominal x-ray film personally reviewed by me: Ileus February 01: White count 8.3 hemoglobin 10.6 platelets 100 January 31: WBC 7.3 hemoglobin 8 platelets 103 121 TIBC 211% saturation 9.98 transferred 151 B12 516 folate-40 January 29: White count 8.8 hemoglobin 11.3 platelets 95 potassium 4.4 creatinine 0.94 Previous labs: Platelets 108 in October 2022, 103 in August 2022 Assessment and plan: -Reversal of colostomy. Right and left colectomy with end colostomy in September [address] Worthington Nothing by mouth. Follow with surgery. No flatus - postoperative ileus.: Still persistent I didn't by mouth again. Rectal barium enema-showed no obstruction. Rectal tube. We'll try neostigmine 5 mg -Acute postprocedure blood loss anemia, expected from surgery causing hypotension: Better Received 1 unit of blood -Postoperative hypotension.: Better lactated Ringer's. Received 1 unit of blood -GERD PPI -Acute medical debility from surgery.: Not improving PTOT. Patient refused therapy -Hypothyroid Levothyroxin -COPD in a current smoker DuoNeb -Chronic nicotine dependence, cigarette smoker Nicotine patch -Thrombocytopenia, improved -Anemia of chronic disease hemoglobin 11.3 Iron deficiency from blood loss. Patient nothing by mouth. Discussed with Dr. Worthington. We'll try neostigmine. Continue rectal tube. Thank you Dr. Worthington
[2023-02-17 22:59] LABS: Glucose,Whole Blood 147 mg/dL (70-110)
[2023-02-17] MEDS: ONDANSETRON 4 MG/2 ML VIAL IVP PRN (23:06)
[2023-02-18 05:56] LABS: Glucose,Whole Blood 113 mg/dL (70-110)
[2023-02-18] MEDS: METOCLOPRAMIDE 5 MG/ML 2 ML VIAL IVP SCH ×3 (06:25→17:02)
[2023-02-18] MEDS: PANTOPRAZOLE 40 MG TABLET PO SCH (06:26)
[2023-02-18] MEDS: LEVOTHYROXINE 75 MCG TAB PO SCH (06:26)
[2023-02-18] MEDS: LACTOBACILLUS ACIDOPH & BULGAR 1 EACH PACKET PO SCH (07:43)
[2023-02-18 07:46] LABS: ALT 38 U/L (4-34); AST 37 U/L (14-36); African American GFR (CKD) >90 (>60 ml/min/1.73 sqM); Albumin 2.3 g/dL (3.5-5.0); Alkaline Phosphatase 72 U/L (38-126); Anion Gap 6 mmol/L; Blood Urea Nitrogen 21 mg/dL (7-17); Calcium 7.5 mg/dL (8.4-10.2); Carbon Dioxide 26 mmol/L (22-30); Chloride 105 mmol/L (98-107); Globulin 2.4 g/dL; Glucose 113 mg/dL (74-99); Magnesium 1.8 mg/dL (1.6-2.3); Non-African American GFR(CKD) 87 (>60 ml/min/1.73 sqM); Phosphorus 4.9 mg/dL (2.5-4.5); Potassium 4.5 mmol/L (3.5-5.1); Sodium 137 mmol/L (137-145); Total Bilirubin 0.2 mg/dL (0.2-1.3); Total Protein 4.7 g/dL (6.3-8.2)
[2023-02-18] MEDS: HEPARIN SODIUM,PORCINE/PF 5,000 UNIT/0.5 ML SYRINGE SQ SCH ×2 (07:47→16:35)
[2023-02-18] MEDS: ACETAMINOPHEN TAB 325 MG TAB PO PRN ×2 (07:47→13:46)
[2023-02-18] MEDS: GABAPENTIN 300 MG CAP PO SCH (07:47)
[2023-02-18] MEDS: PYRIDOXINE 50 MG TAB PO SCH (07:47)
[2023-02-18] MEDS: MULTIVITAMINS, THERA 1 EACH TAB PO SCH (07:47)
[2023-02-18] MEDS: THIAMINE 100 MG TAB PO SCH (07:49)
[2023-02-18] MEDS: IPRATROPIUM-ALBUTEROL 3 ML NEB INHALATION SCH ×3 (09:01→21:40)
[2023-02-18 11:37] LABS: Glucose,Whole Blood 116 mg/dL (70-110)
[2023-02-18] MEDS: [UNRECOGNIZED DRUG - OTHER] IV SCH ×7 (13:36)
[2023-02-18] MEDS: POTASSIUM CHLORIDE IV SCH ×7 (13:36)
[2023-02-18] MEDS: MAGNESIUM SULFATE IV SCH ×7 (13:36)
[2023-02-18] MEDS: CALCIUM GLUCONATE IV SCH ×7 (13:36)
--- NOTE | 2023-02-18 15:01 | P.PN ---
Subjective Progress Note Date: 02/18/23 CHIEF COMPLAINT: History of colonic obstruction HISTORY OF PRESENT ILLNESS: Patient is status post exploratory laparotomy, takedown colostomy, takedown splenic flexure, partial colectomy, repair of incisional hernia, lysis of adhesions and partial omentectomy on 01/29/23. Abdominal x-ray from yesterday shows interval increase in distention of the large bowel loops and small bowel loops suggestive of obstruction with marked dilation no noted. Patient's diet was downgraded again to nothing by mouth. Patient still has rectal tube in place that is stool output noted. Patient denies abdominal pain. Denies any nausea or vomiting Patient seen and examined with Dr. coto PHYSICAL EXAM: VITAL SIGNS: Reviewed. GENERAL: Well-developed in no acute distress. ABDOMEN: Softer. Decrease in abdominal distention. Nontender. Dressing clean dry and intact ASSESSMENT: 1. History of Colonic obstruction status post colostomy reversal 2. Postoperative ileus expected due to chronic medical condition 3. Atonic rectum PLAN: -Continue rectal tube. Patient may require anal dilation -Keep patient nothing by mouth -Continue TPN for nutrition support -Continue Reglan -Continue antiemetics -Continue pain management -Encourage patient to use incentive spirometer -Encourage patient to increase activity level -Patient continues to refuse walking. She does complain of arthritis pain in he r leg -Ordered decubitus ulcer precautions -GI prophylaxis Protonix and DVT prophylaxis subcu heparin Physician Orderlies Teacher note has been reviewed by physician. Signing provider agrees with the documented findings, assessment, and plan of care. Objective - Vital Signs Vital signs: Vital Signs Temp 98.3 F 02/18/23 07:11 Pulse 67 02/18/23 07:11 Resp 18 02/18/23 07:11 BP 107/72 02/18/23 07:11 Pulse Ox 97 02/18/23 09:00 FiO2 Intake & Output 02/17/23 02/18/23 02/18/23 18:59 06:59 18:59 Output Total 2300 500 500 Balance -2300 -500 -500 Weight 55.57 kg Output: Urine 2300 500 500 Other: Voiding Method External Catheter External Catheter External Catheter # Voids 3 # Bowel Movements 1 - Labs CBC & Chem 7: 02/16/23 06:40 02/18/23 06:51 Labs: Abnormal Lab Results - Last 24 Hours (Table) 02/17/23 02/18/23 02/18/23 Range/Units 22:57 05:55 06:51 BUN 21 H (7-17) mg/dL Glucose 113 H (74-99) mg/dL POC Glucose (mg/dL) 147 H 113 H (70-110) mg/dL Calcium 7.5 L (8.4-10.2) mg/dL Phosphorus 4.9 H (2.5-4.5) mg/dL AST 37 H (14-36) U/L ALT 38 H (4-34) U/L Total Protein 4.7 L (6.3-8.2) g/dL Albumin 2.3 L (3.5-5.0) g/dL 02/18/23 Range/Units 11:36 BUN (7-17) mg/dL Glucose (74-99) mg/dL POC Glucose (mg/dL) 116 H (70-110) mg/dL Calcium (8.4-10.2) mg/dL Phosphorus (2.5-4.5) mg/dL AST (14-36) U/L ALT (4-34) U/L Total Protein (6.3-8.2) g/dL Albumin (3.5-5.0) g/dL
[2023-02-18 16:45] LABS: Glucose,Whole Blood 110 mg/dL (70-110)
[2023-02-18] MEDS: FAT EMULSION 20% 250 ML in EMPTY BAG 1 BAG IV SCH (17:02)
--- NOTE | 2023-02-18 20:02 | P.PN ---
Progress Note - Text Progress Note Date: 02/18/23 - Chief Complaint Takedown colostomy Hospital course: This is a 63-year-old patient, who had severe ileus of right and left: And underwent right and left colectomy with end colostomy by Dr. Worthington on 09/21/2022. Patient on January 29/yesterday underwent exploratory laboratory with takedown of colostomy and takedown of splenic flexure with partial colectomy and repair of incisional hernia and lysis of adhesions by Dr. Worthington. Laying in bed this morning has an epidural in place. Wound VAC in place. No nausea vomiting. A bit tired January 31: Patient has not passed any flatus or BM. Pain is controlled. Provena wound VAC in place. Some serosanguineous output. Reclining in bed. Epidural in place. Patient has dropped her hemoglobin to 8. Hypotensive. Despite IV fluids. We will transfuse unit of blood. February 01: Epidural discontinued. Provena discontinued. No flatus. Has been advanced to full liquids. Still rather weak. Hasn't been out of bed. PTOT on the case. Patient received a unit of blood yesterday for hypertension and decreased hemoglobin. February 2: In bed. Did not participate with physical therapist. No flatus. Abdomen distended. Patient did vomit earlier. Diet downgraded by surgery. We will do abdominal x-ray in the morning. February 3: No flatus. Abdomen still distended. Abdominal x-rays confirmed ileus. Patient made nothing by mouth. Reglan was added by surgery. Increase activity as tolerated. February 4: Patient thinks she may pass them flatus. Abdomen still distended. Nothing by mouth. Getting Flagyl. February 5: Patient refusing to participate in therapy. Will not do therapy until she eats. X-rays again showing ileus. Surgery ordered NG tube. Patient states she passed and little amount of flatus. Abdomen distended no nausea vomiting February 12: I resumed care of the patient today from [facility]. Patient remains nothing by mouth. In bed. Tired. Said passed a small amount of flatus. Getting IV TPN and lipids. Patient had been refusing therapy. Abdomen distended. February 13: Reclining in bed. Has been passing some flatus. Decrease abdominal distention. TPN and lipids. On clear liquids. I gave spoke to the patient and family the bedside the importance of being out of bed and working with therapy. Abdominal x-ray showing severe dilatation. February 14: Patient up in a recliner. States she's passed a small amount of flatus. DP and lipids. Clear liquids. Discussed Dr. Worthington. Plan for a rectal contrast enema tomorrow. Also discussed about possibility of using a rectal tube. February 15: Patient underwent a barium enema today. Showed dilated loops of bowel. No mechanical obstruction. Discussed with Dr. Worthington. Rectal tube will be tried. Patient again refusing to participate with therapy. February 16: Patient had a rectal tube placed yesterday. Legs some liquid stool and in a good gush of flatus was obtained. Abdomen more soft and flat in today. Repeat x-ray showed dilatation of small bowel loops. The reduction from prior exam. Patient remains on clear liquid diet. February 17: Putting out some liquid stool. Some abdominal distention. Repeat abdominal x-ray showing further increases ileus. Rectal tube was present. Patient has been made nothing by mouth. Discussed with Dr. Worthington. We will give a trial of neostigmine 5 mg or 5 minutes. Discusses pharmacy. And the nurse. February 18: Patient received neostigmine last night. Did get some abdominal cramping and some bradycardia. Belly relatively soft. Some distention. No pain. No nausea vomiting. Active Medications Acetaminophen (Acetaminophen Tab 325 Mg Tab) 650 mg PO Q6HR PRN PRN Reason: Fever and/ or Pain Last Admin: 02/18/23 13:46 Dose: 650 mg Albuterol/Ipratropium (Ipratropium-Albuterol 3 Ml Neb) 3 ml INHALATION RT-Q8H PRN PRN Reason: Wheezing Albuterol/Ipratropium (Ipratropium-Albuterol 3 Ml Neb) 3 ml INHALATION RT-TID [facility] Last Admin: 02/18/23 12:24 Dose: Not Given Gabapentin (Gabapentin 300 Mg Cap) 300 mg PO DAILY [facility] Last Admin: 02/18/23 07:47 Dose: 300 mg Heparin Sodium (Porcine) (Heparin Sodium,Porcine/Pf 5,000 Unit/0.5 Ml Syringe) 5,000 unit SQ Q8HR [facility] Last Admin: 02/18/23 16:35 Dose: 5,000 unit Lactated Ringer's (Lactated Ringers) 1,000 mls @ 75 mls/hr IV .[id number] [facility] Last Admin: 02/17/23 21:20 Dose: 75 mls/hr Fat Emulsion Intravenous 250 (ml/ IV Solution) 250 mls @ 21 mls/hr IV MoTh [facility] Last Admin: 02/18/23 17:02 Dose: 21 mls/hr Potassium Chloride 36 meq/Magnesium Sulfate 1.75 gm/Calcium Gluconate 2 gm/ Sodium Chloride 40 meq/ Amino Acids/Dextrose 1,051.5 mls @ 60 mls/hr IV .BY DURATION [facility] Last Admin: 02/18/23 13:36 Dose: 60 mls/hr Parenteral Vitamin Supplement 10 ml/ Zinc/Copper/Manganese/Selenium 1 ml/ Potassium Chloride 36 meq/ Magnesium Sulfate 1.75 gm/ Calcium Gluconate 2 gm/ Sodium Chloride 40 meq/ Amino Acids/Dextrose 1,062.5 mls @ 60 mls/hr IV .BY DURATION [facility] Lactobacillus Acidoph/Bulgaricus (Lactobacillus Acidoph & Bulgar 1 Each Packet) 1 each PO DAILY [facility] Last Admin: 02/18/23 07:43 Dose: Not Given Levothyroxine Sodium (Levothyroxine 75 Mcg Tab) 75 mcg PO DAILY@0630 [facility] Last Admin: 02/18/23 06:26 Dose: 75 mcg Metoclopramide HCl (Metoclopramide 5 Mg/Ml 2 Ml Vial) 10 mg IVP Q6HR [facility] Last Admin: 02/18/23 17:02 Dose: 10 mg Miscellaneous Information (Potassium Replacement Protocol 1 Each Misc) 1 each MISCELLANE DAILY PRN; Protocol PRN Reason: Per Protocol Miscellaneous Information (Magnesium Replacement Protocol 1 Each Misc) 1 each MISCELLANE DAILY PRN; Protocol PRN Reason: Per Protocol Multivitamins (Multivitamins, Thera 1 Each Tab) 1 each PO DAILY [facility] Last Admin: 02/18/23 07:47 Dose: 1 each Naloxone HCl (Naloxone 0.4 Mg/Ml 1 Ml Vial) 0.2 mg IV Q2M PRN PRN Reason: Opioid Reversal Ondansetron HCl (Ondansetron 4 Mg/2 Ml Vial) 4 mg IVP Q6HR PRN PRN Reason: Nausea And Vomiting Last Admin: 02/17/23 23:06 Dose: 4 mg Pantoprazole Sodium (Pantoprazole 40 Mg Tablet) 40 mg PO AC-BRKFST [facility] Last Admin: 02/18/23 06:26 Dose: 40 mg Pyridoxine HCl (Pyridoxine 50 Mg Tab) 100 mg PO DAILY [facility] Last Admin: 02/18/23 07:47 Dose: 100 mg Thiamine HCl (Thiamine 100 Mg Tab) 100 mg PO DAILY [facility] Last Admin: 02/18/23 07:49 Dose: 100 mg Past medical history to include: Hypothyroid, osteomyelitis, COPD, left colectomy with end colostomy Social history: Lives with her boyfriend. Smokes about half a pack a day since age 21. Does use a walker. Physical examination: VITAL SIGNS: 98.6, 65, 16, 105/67, 95% room air GENERAL:, Reclining in bed, comfortable EYES: Pupils equal. Conjunctiva normal. HEENT: External appearance of nose and ears normal, oral cavity dry mucous membranes NECK: JVD not raised; masses not palpable. HEART: First and second heart sounds are normal; no edema. LUNGS: Respiratory rate normal; decreased breath sounds. ABDOMEN: Soft, some distention, nontender Liver spleen not palpable, no masses palpable. Hyperactive bowel sounds PSYCH: Alert and oriented x3; mood and affect anxious. MUSCULOSKELETAL:No Clubbing/cyanosis;muscles-grossly intact INVESTIGATIONS, reviewed in the clinical context: February 18: Potassium 4.5 creatinine 0.74 February 16: White count 5.2 hemoglobin 9.4 potassium 4.2 creatinine 0.7 magnesia 1.9 Barium enema done today showed no obstruction. Dilated loops of bowel both small and large February 14: Potassium 4.2 creatinine 0.76 February 14: Potassium 4.3 creatinine 0.77 February 13: Potassium 4.1 creatinine 0.84 Abdominal x-ray [813]: Severe ileus February 12: White count 5.5 hemoglobin 8.9 platelets 153 potassium 4.1 creatinine 0.76 February 4: White count 5.3 hemoglobin 10.4 platelets 139 potassium 4 creatinine 0.80 Abdominal x-ray film personally reviewed by me: Ileus February 01: White count 8.3 hemoglobin 10.6 platelets 100 January 31: WBC 7.3 hemoglobin 8 platelets 103 121 TIBC 211% saturation 9.98 transferred 151 B12 516 folate-40 January 29: White count 8.8 hemoglobin 11.3 platelets 95 potassium 4.4 creatinine 0.94 Previous labs: Platelets 108 in October 2022, 103 in August 2022 Assessment and plan: -Reversal of colostomy. Right and left colectomy with end colostomy in September [address] Worthington Nothing by mouth. Follow with surgery. No flatus - postoperative ileus.: Still persistent Nothing by mouth Rectal barium enema-showed no obstruction. Rectal tube. neostigmine 5 mg-do not respond to the same -Acute postprocedure blood loss anemia, expected from surgery causing hypotension: Better Received 1 unit of blood -Postoperative hypotension.: Better lactated Ringer's. Received 1 unit of blood -GERD PPI -Acute medical debility from surgery.: Not improving PTOT. Patient refused therapy -Hypothyroid Levothyroxin -COPD in a current smoker DuoNeb -Chronic nicotine dependence, cigarette smoker Nicotine patch -Thrombocytopenia, improved -Anemia of chronic disease hemoglobin 11.3 Iron deficiency from blood loss. nothing by mouth. Continue TPN and lipids. Thank you Dr. Worthington
[2023-02-18] MEDS: LACTATED RINGERS 1,000 ML IV SCH (21:45)
[2023-02-18 23:35] LABS: Glucose,Whole Blood 116 mg/dL (70-110)
[2023-02-19] MEDS: HEPARIN SODIUM,PORCINE/PF 5,000 UNIT/0.5 ML SYRINGE SQ SCH ×3 (00:24→15:33)
[2023-02-19] MEDS: METOCLOPRAMIDE 5 MG/ML 2 ML VIAL IVP SCH ×4 (00:24→17:00)
[2023-02-19 06:18] LABS: Glucose,Whole Blood 115 mg/dL (70-110)
[2023-02-19] MEDS: LEVOTHYROXINE 75 MCG TAB PO SCH (07:15)
[2023-02-19] MEDS: PANTOPRAZOLE 40 MG TABLET PO SCH (07:15)
[2023-02-19] MEDS: LACTOBACILLUS ACIDOPH & BULGAR 1 EACH PACKET PO SCH (08:09)
[2023-02-19] MEDS: [UNRECOGNIZED DRUG - OTHER] IV SCH ×7 (08:42)
[2023-02-19] MEDS: MAGNESIUM SULFATE IV SCH ×7 (08:42)
[2023-02-19] MEDS: POTASSIUM CHLORIDE IV SCH ×7 (08:42)
[2023-02-19] MEDS: CALCIUM GLUCONATE IV SCH ×7 (08:42)
[2023-02-19] MEDS: GABAPENTIN 300 MG CAP PO SCH (08:43)
[2023-02-19] MEDS: MULTIVITAMINS, THERA 1 EACH TAB PO SCH (08:43)
[2023-02-19] MEDS: PYRIDOXINE 50 MG TAB PO SCH (08:43)
[2023-02-19] MEDS: THIAMINE 100 MG TAB PO SCH (08:43)
[2023-02-19] MEDS: LACTATED RINGERS 1,000 ML IV SCH (08:44)
[2023-02-19] MEDS: IPRATROPIUM-ALBUTEROL 3 ML NEB INHALATION SCH ×3 (09:57→22:08)
--- NOTE | 2023-02-19 11:34 | XR ---
EXAMINATION TYPE: XR abdomen 2V DATE OF EXAM: 02/19/2023 COMPARISON: 02/17/2023 HISTORY: Follow-up ileus TECHNIQUE: One view abdominal series FINDINGS: The osseous structures are intact. The bowel gas pattern is nonspecific. Soft tissue fullness extend ing across the abdomen suspected. Hypertrophic and degenerative changes of the spine with surgical st aples. There is contrast within the colon and reduced caliber to dilated small bowel loops suggestive of improving ileus. Left lower lobe infiltrate and small effusion persists. Rectal tube noted in pos ition. Severe arthropathy of the left hip. IMPRESSION: 1. There is interval reduction in the caliber of the bowel loops suggestive of improving correlate cl inically. Follow-up
[2023-02-19 11:48] LABS: ALT 40 U/L (4-34); AST 40 U/L (14-36); African American GFR (CKD) >90 (>60 ml/min/1.73 sqM); Albumin 2.7 g/dL (3.5-5.0); Alkaline Phosphatase 80 U/L (38-126); Anion Gap 8 mmol/L; Blood Urea Nitrogen 22 mg/dL (7-17); Calcium 7.9 mg/dL (8.4-10.2); Carbon Dioxide 27 mmol/L (22-30); Chloride 102 mmol/L (98-107); Globulin 2.8 g/dL; Glucose 110 mg/dL (74-99); Magnesium 1.7 mg/dL (1.6-2.3); Non-African American GFR(CKD) 78 (>60 ml/min/1.73 sqM); Phosphorus 4.3 mg/dL (2.5-4.5); Potassium 4.4 mmol/L (3.5-5.1); Sodium 137 mmol/L (137-145); Total Bilirubin 0.2 mg/dL (0.2-1.3); Total Protein 5.5 g/dL (6.3-8.2)
[2023-02-19 11:52] LABS: Glucose,Whole Blood 113 mg/dL (70-110)
[2023-02-19] MEDS ORDERED: MAGNESIUM CITRATE 296 ML BOTTLE PO ONE (12:00)
[2023-02-19] MEDS ORDERED: MAGNESIUM SULFATE-D5W PMX 1 GM in DEXTROSE/WATER 1 100ML.BAG IVPB ONE (14:00)
--- NOTE | 2023-02-19 16:27 | P.PN ---
Subjective Progress Note Date: 02/19/23 CHIEF COMPLAINT: History of colonic obstruction HISTORY OF PRESENT ILLNESS: Patient is status post exploratory laparotomy, takedown colostomy, takedown splenic flexure, partial colectomy, repair of incisional hernia, lysis of adhesions and partial omentectomy on 01/29/23. Patient also known ileus. She denies pain. She has rectal tube in place with stool present. Afebrile. Abdominal x-ray is showing improvement with reduction in the caliber of bowel loops Patient seen and examined with Dr. coto PHYSICAL EXAM: VITAL SIGNS: Reviewed. GENERAL: Well-developed in no acute distress. ABDOMEN: Softer. Decrease in abdominal distention. Nontender. Dressing clean dry and intact ASSESSMENT: 1. History of Colonic obstruction status post colostomy reversal 2. Postoperative ileus expected due to chronic medical condition 3. Atonic rectum PLAN: -Continue rectal tube. Patient may require anal dilation -Discussed case with medicine service -Keep patient nothing by mouth -Continue TPN for nutrition support -Continue Reglan -Continue antiemetics -Continue pain management -Encourage patient to use incentive spirometer -Encourage patient to increase activity level -Patient continues to refuse walking. She does complain of arthritis pain in her leg -Ordered decubitus ulcer precautions -GI prophylaxis Protonix and DVT prophylaxis subcu heparin Physician Equity Structurer note has been reviewed by physician. Signing provider agrees with the documented findings, assessment, and plan of care. Objective - Vital Signs Vital signs: Vital Signs Temp 97.6 F 02/19/23 02:00 Pulse 75 02/19/23 02:00 Resp 18 02/19/23 02:00 BP 124/80 02/19/23 02:00 Pulse Ox 94 L 02/19/23 02:00 FiO2 Intake & Output 02/18/23 02/19/23 02/19/23 18:59 06:59 18:59 Intake Total 1075 Output Total 1200 1025 Balance -1200 50 Weight 55.57 kg Intake: Intake, IV Titration 1075 Amount Fat Emulsion 20% 250 ml 250 In Empty Bag 1 bag @ 21 mls/hr IV MoTh [facility] Rx#: [id number] Lactated Ringers 1,000 ml 825 @ 75 mls/hr IV .[id number] [facility] Rx#:[id number] Oral 0 Output: Urine 1200 1025 Other: Voiding Method External Catheter External Catheter # Voids 2 # Bowel Movements 1 - Labs CBC & Chem 7: 02/16/23 06:40 02/19/23 11:17 Labs: Abnormal Lab Results - Last 24 Hours (Table) 02/18/23 02/18/23 02/19/23 Range/Units 11:36 23:30 06:04 POC Glucose (mg/dL) 116 H 116 H 115 H (70-110) mg/dL
[2023-02-19 16:39] LABS: Glucose,Whole Blood 106 mg/dL (70-110)
--- NOTE | 2023-02-19 19:33 | P.PN ---
Progress Note - Text Progress Note Date: 02/19/23 - Chief Complaint Takedown colostomy Hospital course: This is a 63-year-old patient, who had severe ileus of right and left: And underwent right and left colectomy with end colostomy by Dr. Worthington on 09/21/2022. Patient on January 29/yesterday underwent exploratory laboratory with takedown of colostomy and takedown of splenic flexure with partial colectomy and repair of incisional hernia and lysis of adhesions by Dr. Worthington. Laying in bed this morning has an epidural in place. Wound VAC in place. No nausea vomiting. A bit tired January 31: Patient has not passed any flatus or BM. Pain is controlled. Provena wound VAC in place. Some serosanguineous output. Reclining in bed. Epidural in place. Patient has dropped her hemoglobin to 8. Hypotensive. Despite IV fluids. We will transfuse unit of blood. February 01: Epidural discontinued. Provena discontinued. No flatus. Has been advanced to full liquids. Still rather weak. Hasn't been out of bed. PTOT on the case. Patient received a unit of blood yesterday for hypertension and decreased hemoglobin. February 2: In bed. Did not participate with physical therapist. No flatus. Abdomen distended. Patient did vomit earlier. Diet downgraded by surgery. We will do abdominal x-ray in the morning. February 3: No flatus. Abdomen still distended. Abdominal x-rays confirmed ileus. Patient made nothing by mouth. Reglan was added by surgery. Increase activity as tolerated. February 4: Patient thinks she may pass them flatus. Abdomen still distended. Nothing by mouth. Getting Flagyl. February 5: Patient refusing to participate in therapy. Will not do therapy until she eats. X-rays again showing ileus. Surgery ordered NG tube. Patient states she passed and little amount of flatus. Abdomen distended no nausea vomiting February 12: [facility] Patient remains nothing by mouth. In bed. Tired. Said passed a small amount of flatus. Getting IV TPN and lipids. Patient had been refusing therapy. Abdomen distended. February 13: Reclining in bed. Has been passing some flatus. Decrease abdominal distention. TPN and lipids. On clear liquids. I gave spoke to the patient and family the bedside the importance of being out of bed and working with therapy. Abdominal x-ray showing severe dilatation. February 14: Patient up in a recliner. States she's passed a small amount of flatus. DP and lipids. Clear liquids. Discussed Dr. Worthington. Plan for a rectal contrast enema tomorrow. Also discussed about possibility of using a rectal tube. February 15: Patient underwent a barium enema today. Showed dilated loops of bowel. No mechanical obstruction. Discussed with Dr. Worthington. Rectal tube will be tried. Patient again refusing to participate with therapy. February 16: Patient had a rectal tube placed yesterday. Legs some liquid stool and in a good gush of flatus was obtained. Abdomen more soft and flat in today. Repeat x-ray showed dilatation of small bowel loops. The reduction from prior exam. Patient remains on clear liquid diet. February 17: Putting out some liquid stool. Some abdominal distention. Repeat abdominal x-ray showing further increases ileus. Rectal tube was present. Patient has been made nothing by mouth. Discussed with Dr. Worthington. We will give a trial of neostigmine 5 mg or 5 minutes. Discusses pharmacy. And the nurse. February 18: Patient received neostigmine last night. Did get some abdominal cramping and some bradycardia. Belly relatively soft. Some distention. No pain. No nausea vomiting. February 19: We tried for a few minutes to put the rectal tube to low intermittent suction. Not much response. Patient was then given mag citrate. Patient put on about 300 mL of stool. After the 150 mL afterwards. Rectal tube has been in. We will keep the rectal tube out overnight and see how patient does with bowel movement. Also put the patient on full liquids. As abdomen has been rather soft. Repeat abdominal x-rays in the morning. X-rays also done this morning. Active Medications Acetaminophen (Acetaminophen Tab 325 Mg Tab) 650 mg PO Q6HR PRN PRN Reason: Fever and/ or Pain Last Admin: 02/18/23 13:46 Dose: 650 mg Albuterol/Ipratropium (Ipratropium-Albuterol 3 Ml Neb) 3 ml INHALATION RT-Q8H PRN PRN Reason: Wheezing Albuterol/Ipratropium (Ipratropium-Albuterol 3 Ml Neb) 3 ml INHALATION RT-TID [facility] Last Admin: 02/19/23 12:23 Dose: Not Given Gabapentin (Gabapentin 300 Mg Cap) [address] [facility] Last Admin: 02/19/23 08:43 Dose: 300 mg Heparin Sodium (Porcine) (Heparin Sodium,Porcine/Pf 5,000 Unit/0.5 Ml Syringe) 5,[address] [facility] Last Admin: 02/19/23 15:33 Dose: 5,000 unit Lactated Ringer's (Lactated Ringers) 1,000 mls @ 75 mls/hr IV .[id number] [facility] Last Admin: 02/19/23 08:44 Dose: Not Given Fat Emulsion Intravenous 250 (ml/ IV Solution) 250 mls @ 21 mls/hr IV MoTh [facility] Last Admin: 02/18/23 17:02 Dose: 21 mls/hr Potassium Chloride 36 meq/Magnesium Sulfate 1.75 gm/Calcium Gluconate 2 gm/ Sodium Chloride 40 meq/ Amino Acids/Dextrose 1,051.5 mls @ 60 mls/hr IV .BY DURATION [facility] Last Admin: 02/19/23 08:42 Dose: 60 mls/hr Parenteral Vitamin Supplement 10 ml/ Zinc/Copper/Manganese/Selenium 1 ml/ Potassium Chloride 36 meq/ Magnesium Sulfate 1.75 gm/ Calcium Gluconate 2 gm/ Sodium Chloride 40 meq/ Amino Acids/Dextrose 1,062.5 mls @ 60 mls/hr IV .BY DURATION [facility] Lactobacillus Acidoph/Bulgaricus (Lactobacillus Acidoph & Bulgar 1 Each Packet) [address] [facility] Last Admin: 02/19/23 08:09 Dose: Not Given Levothyroxine Sodium (Levothyroxine 75 Mcg Tab) 75 mcg PO DAILY@0630 [facility] Last Admin: 02/19/23 07:15 Dose: 75 mcg Metoclopramide HCl (Metoclopramide 5 Mg/Ml 2 Ml Vial) [address] [facility] Last Admin: 02/19/23 17:00 Dose: 10 mg Miscellaneous Information (Potassium Replacement Protocol 1 Each Misc) 1 each MISCELLANE DAILY PRN; Protocol PRN Reason: Per Protocol Miscellaneous Information (Magnesium Replacement Protocol 1 Each Misc) 1 each MISCELLANE DAILY PRN; Protocol PRN Reason: Per Protocol Multivitamins (Multivitamins, Thera 1 Each Tab) [address] [facility] Last Admin: 02/19/23 08:43 Dose: 1 each Naloxone HCl (Naloxone 0.4 Mg/Ml 1 Ml Vial) 0.2 mg IV Q2M PRN PRN Reason: Opioid Reversal Ondansetron HCl (Ondansetron 4 Mg/2 Ml Vial) 4 mg IVP Q6HR PRN PRN Reason: Nausea And Vomiting Last Admin: 02/17/23 23:06 Dose: 4 mg Pantoprazole Sodium (Pantoprazole 40 Mg Tablet) [address] AC-BRKFST [facility] Last Admin: 02/19/23 07:15 Dose: 40 mg Pyridoxine HCl (Pyridoxine 50 Mg Tab) [address] [facility] Last Admin: 02/19/23 08:43 Dose: 100 mg Thiamine HCl (Thiamine 100 Mg Tab) [address] [facility] Last Admin: 02/19/23 08:43 Dose: 100 mg Past medical history to include: Hypothyroid, osteomyelitis, COPD, left colectomy with end colostomy Social history: Lives with her boyfriend. Smokes about half a pack a day since age 21. Does use a walker. Physical examination: VITAL SIGNS: 97.9, 76, 18, 144/84, 97% room air GENERAL:, Reclining in bed, comfortable EYES: Pupils equal. Conjunctiva normal. HEENT: External appearance of nose and ears normal, oral cavity dry mucous membranes NECK: JVD not raised; masses not palpable. HEART: First and second heart sounds are normal; no edema. LUNGS: Respiratory rate normal; decreased breath sounds. ABDOMEN: Soft, decreased distention, nontender Liver spleen not palpable, no masses palpable. Hyperactive bowel sounds PSYCH: Alert and oriented x3; mood and affect anxious. MUSCULOSKELETAL:No Clubbing/cyanosis;muscles-grossly intact INVESTIGATIONS, reviewed in the clinical context: February 19: Potassium 4.4 creatinine 0.8 February 18: Potassium 4.5 creatinine 0.74 February 16: White count 5.2 hemoglobin 9.4 potassium 4.2 creatinine 0.7 magnesia 1.9 Barium enema done today showed no obstruction. Dilated loops of bowel both small and large February 14: Potassium 4.2 creatinine 0.76 February 14: Potassium 4.3 creatinine 0.77 February 13: Potassium 4.1 creatinine 0.84 Abdominal x-ray [813]: Severe ileus May 12: White count 5.5 hemoglobin 8.9 platelets 153 potassium 4.1 creatinine 0.76 February 04: White count 5.3 hemoglobin 10.4 platelets 139 potassium 4 creatinine 0.80 Abdominal x-ray film personally reviewed by me: Ileus February 01: White count 8.3 hemoglobin 10.6 platelets 100 January 31: WBC 7.3 hemoglobin 8 platelets 103 121 TIBC 211% saturation 9.98 transferred 151 B12 516 folate-40 January 29: White count 8.8 hemoglobin 11.3 platelets 95 potassium 4.4 creatinine 0.94 Previous labs: Platelets 108 in October 2022, 103 in August 2022 Assessment and plan: -Reversal of colostomy. Right and left colectomy with end colostomy in September [address] Worthington Nothing by mouth. Follow with surgery. No flatus - postoperative ileus.: Still persistent Rectal barium enema-showed no obstruction. Rectal tube. neostigmine 5 mg-do not respond to the same. Patient did have a good response to magnesium citrate. Put out about 4 50 mL of liquid stool. We'll try a full liquid diet. -Acute postprocedure blood loss anemia, expected from surgery causing hypotension: Better Received 1 unit of blood -Postoperative hypotension.: Better lactated Ringer's. Received 1 unit of blood -GERD PPI -Acute medical debility from surgery.: Not improving PTOT. Patient refused therapy -Hypothyroid Levothyroxin -COPD in a current smoker DuoNeb -Chronic nicotine dependence, cigarette smoker Nicotine patch -Thrombocytopenia, improved -Anemia of chronic disease hemoglobin 11.3 Iron deficiency from blood loss. Current response to magnesium citrate. About 400 mL of liquid stool. We'll try full liquids. Thank you Dr. Worthington
[2023-02-19 21:24] LABS: Glucose,Whole Blood 117 mg/dL (70-110)
[2023-02-20] MEDS: HEPARIN SODIUM,PORCINE/PF 5,000 UNIT/0.5 ML SYRINGE SQ SCH ×4 (00:14→23:44)
[2023-02-20] MEDS: METOCLOPRAMIDE 5 MG/ML 2 ML VIAL IVP SCH ×5 (00:15→23:43)
[2023-02-20] MEDS: MAGNESIUM SULFATE IV SCH ×7 (01:20)
[2023-02-20] MEDS: CALCIUM GLUCONATE IV SCH ×7 (01:20)
[2023-02-20] MEDS: [UNRECOGNIZED DRUG - OTHER] IV SCH ×7 (01:20)
[2023-02-20] MEDS: POTASSIUM CHLORIDE IV SCH ×7 (01:20)
[2023-02-20] MEDS: LACTATED RINGERS 1,000 ML IV SCH ×2 (01:33→16:50)
[2023-02-20] MEDS: LEVOTHYROXINE 75 MCG TAB PO SCH (05:42)
[2023-02-20] MEDS: PANTOPRAZOLE 40 MG TABLET PO SCH (05:43)
[2023-02-20 06:07] LABS: Glucose,Whole Blood 116 mg/dL (70-110)
--- NOTE | 2023-02-20 06:29 | XR ---
EXAMINATION TYPE: XR abdomen 2V DATE OF EXAM: 02/20/2023 CLINICAL HISTORY: Ileus. TECHNIQUE: Supine and upright views of the abdomen are obtained. COMPARISON: Abdominal x-ray one day earlier. FINDINGS: Residual contrast in the colon has cleared in the interval. Gas is seen in nondistended and slightly prominent small and large bowel loops. Overlying vertical and left horizontal skin elida redemonstrated. Advanced degenerative changes with [id number] appearance left hip joint redemonstra ignacio. No free air. Lung bases remain clear. Multilevel spurring in the thoracolumbar spine again seen. IMPRESSION: As above. Resolving ileus is suspected.
[2023-02-20 06:56] LABS: ALT 40 U/L (4-34); AST 37 U/L (14-36); African American GFR (CKD) 85 (>60 ml/min/1.73 sqM); Albumin 2.8 g/dL (3.5-5.0); Alkaline Phosphatase 81 U/L (38-126); Anion Gap 4 mmol/L; Blood Urea Nitrogen 23 mg/dL (7-17); Calcium 7.8 mg/dL (8.4-10.2); Carbon Dioxide 33 mmol/L (22-30); Chloride 101 mmol/L (98-107); Globulin 2.7 g/dL; Glucose 105 mg/dL (74-99); Magnesium 2.1 mg/dL (1.6-2.3); Non-African American GFR(CKD) 74 (>60 ml/min/1.73 sqM); Phosphorus 4.1 mg/dL (2.5-4.5); Potassium 4.3 mmol/L (3.5-5.1); Sodium 138 mmol/L (137-145); Total Bilirubin 0.2 mg/dL (0.2-1.3); Total Protein 5.5 g/dL (6.3-8.2)
[2023-02-20] MEDS: LACTOBACILLUS ACIDOPH & BULGAR 1 EACH PACKET PO SCH (08:13)
[2023-02-20] MEDS: MULTIVITAMINS, THERA 1 EACH TAB PO SCH (08:14)
[2023-02-20] MEDS: GABAPENTIN 300 MG CAP PO SCH (08:15)
[2023-02-20] MEDS: PYRIDOXINE 50 MG TAB PO SCH (08:15)
[2023-02-20] MEDS: THIAMINE 100 MG TAB PO SCH (08:15)
[2023-02-20] MEDS: IPRATROPIUM-ALBUTEROL 3 ML NEB INHALATION SCH ×3 (08:57→19:37)
--- NOTE | 2023-02-20 10:56 | P.PN ---
Subjective Progress Note Date: 02/20/23 Principal diagnosis: Post-colostomy reversal Patient somewhat belligerent this morning. She won't answer questions when asked. She is apparently on a full liquid diet. Per nursing staff she is tolerating that. No bowel function. No vomiting. Objective - Vital Signs Vital signs: Vital Signs Temp 97.8 F 02/20/23 07:08 Pulse 80 02/20/23 07:08 Resp 18 02/20/23 07:08 BP 138/82 02/20/23 07:08 Pulse Ox 95 02/20/23 08:57 FiO2 21 02/20/23 08:57 Intake & Output 02/19/23 02/20/23 02/20/23 18:59 06:59 18:59 Intake Total 1051.5 Output Total 2300 1900 Balance -1248.5 -1900 Intake: Intake, IV Titration 1051.5 Amount Potassium Chloride 36 meq 1051.5 Magnesium Sulfate gm 1. 75 gm Calcium Gluconate 2 gm Sodium Chloride 4Meq/ ml Vial 40 meq In Amino Acids 5 %/Dextrose 20 % 1 ,000 ml @ 60 mls/hr IV . BY DURATION [facility] Rx#: [id number] Output: Urine 2000 1200 Stool 300 700 Other: Voiding Method External Catheter - Exam Abdomen: Soft, nondistended, minimal tenderness, dressing clean and dry - Labs CBC & Chem 7: 02/16/23 06:40 02/20/23 06:27 Labs: Abnormal Lab Results - Last 24 Hours (Table) 02/19/23 02/19/23 02/19/23 Range/Units 11:17 11:51 21:23 Carbon Dioxide (22-30) mmol/L BUN 22 H (7-17) mg/dL Glucose 110 H (74-99) mg/dL POC Glucose (mg/dL) 113 H 117 H (70-110) mg/dL Calcium 7.9 L (8.4-10.2) mg/dL AST 40 H (14-36) U/L ALT 40 H (4-34) U/L Total Protein 5.5 L (6.3-8.2) g/dL Albumin 2.7 L (3.5-5.0) g/dL 02/20/23 02/20/23 Range/Units 06:06 06:27 Carbon Dioxide 33 H (22-30) mmol/L BUN 23 H (7-17) mg/dL Glucose 105 H (74-99) mg/dL POC Glucose (mg/dL) 116 H (70-110) mg/dL Calcium 7.8 L (8.4-10.2) mg/dL AST 37 H (14-36) U/L ALT 40 H (4-34) U/L Total Protein 5.5 L (6.3-8.2) g/dL Albumin 2.8 L (3.5-5.0) g/dL Assessment and Plan (1) History of colostomy reversal Narrative/Plan: Patient seems to be doing fairly well today. She is not happy to be in the hospital. She is tolerating her full liquids. Continue full for now. Increase activity. Current Visit: Yes Status: Acute Code(s): Z98.890 - OTHER SPECIFIED POSTPROCEDURAL STATES SNOMED Code(s): 45623808174980142
--- NOTE | 2023-02-20 16:22 | P.PN ---
Progress Note - Text Progress Note Date: 02/20/23 - Chief Complaint Takedown colostomy Hospital course: This is a 63-year-old patient, who had severe ileus of right and left: And underwent right and left colectomy with end colostomy by Dr. Worthington on 09/21/2022. Patient on January 29/yesterday underwent exploratory laboratory with takedown of colostomy and takedown of splenic flexure with partial colectomy and repair of incisional hernia and lysis of adhesions by Dr. Worthington. Laying in bed this morning has an epidural in place. Wound VAC in place. No nausea vomiting. A bit tired January 31: Patient has not passed any flatus or BM. Pain is controlled. Provena wound VAC in place. Some serosanguineous output. Reclining in bed. Epidural in place. Patient has dropped her hemoglobin to 8. Hypotensive. Despite IV fluids. We will transfuse unit of blood. February 01: Epidural discontinued. Provena discontinued. No flatus. Has been advanced to full liquids. Still rather weak. Hasn't been out of bed. PTOT on the case. Patient received a unit of blood yesterday for hypertension and decreased hemoglobin. February 2: In bed. Did not participate with physical therapist. No flatus. Abdomen distended. Patient did vomit earlier. Diet downgraded by surgery. We will do abdominal x-ray in the morning. February 3: No flatus. Abdomen still distended. Abdominal x-rays confirmed ileus. Patient made nothing by mouth. Reglan was added by surgery. Increase activity as tolerated. February 4: Patient thinks she may pass them flatus. Abdomen still distended. Nothing by mouth. Getting Flagyl. February 5: Patient refusing to participate in therapy. Will not do therapy until she eats. X-rays again showing ileus. Surgery ordered NG tube. Patient states she passed and little amount of flatus. Abdomen distended no nausea vomiting February 12: [facility] Patient remains nothing by mouth. In bed. Tired. Said passed a small amount of flatus. Getting IV TPN and lipids. Patient had been refusing therapy. Abdomen distended. February 13: Reclining in bed. Has been passing some flatus. Decrease abdominal distention. TPN and lipids. On clear liquids. I gave spoke to the patient and family the bedside the importance of being out of bed and working with therapy. Abdominal x-ray showing severe dilatation. February 14: Patient up in a recliner. States she's passed a small amount of flatus. DP and lipids. Clear liquids. Discussed Dr. Worthington. Plan for a rectal contrast enema tomorrow. Also discussed about possibility of using a rectal tube. February 15: Patient underwent a barium enema today. Showed dilated loops of bowel. No mechanical obstruction. Discussed with Dr. Worthington. Rectal tube will be tried. Patient again refusing to participate with therapy. February 16: Patient had a rectal tube placed yesterday. Legs some liquid stool and in a good gush of flatus was obtained. Abdomen more soft and flat in today. Repeat x-ray showed dilatation of small bowel loops. The reduction from prior exam. Patient remains on clear liquid diet. February 17: Putting out some liquid stool. Some abdominal distention. Repeat abdominal x-ray showing further increases ileus. Rectal tube was present. Patient has been made nothing by mouth. Discussed with Dr. Worthington. We will give a trial of neostigmine 5 mg or 5 minutes. Discusses pharmacy. And the nurse. February 18: Patient received neostigmine last night. Did get some abdominal cramping and some bradycardia. Belly relatively soft. Some distention. No pain. No nausea vomiting. February 19: We tried for a few minutes to put the rectal tube to low intermittent suction. Not much response. Patient was then given mag citrate. Patient put on about 300 mL of stool. After the 150 mL afterwards. Rectal tube has been in. We will keep the rectal tube out overnight and see how patient does with bowel movement. Also put the patient on full liquids. As abdomen has been rather soft. Repeat abdominal x-rays in the morning. X-rays also done this morning. February 20: Rectal tube was taken out last night to see how patient does overnight. Did not have a bowel movement. Abdomen soft. Some distention. X-ray showing some ileus. Still better than before. Patient refused rectal tube to be reinserted. We'll add lactulose 20 g daily. Continue full liquids Past medical history to include: Hypothyroid, osteomyelitis, COPD, left colectomy with end colostomy Social history: Lives with her boyfriend. Smokes about half a pack a day since age 21. Does use a walker. Physical examination: VITAL SIGNS: 97.8, 80, 18, 138 bradycardia 2, 96% room air GENERAL:, Reclining in bed, comfortable EYES: Pupils equal. Conjunctiva normal. HEENT: External appearance of nose and ears normal, oral cavity dry mucous membranes NECK: JVD not raised; masses not palpable. HEART: First and second heart sounds are normal; no edema. LUNGS: Respiratory rate normal; decreased breath sounds. ABDOMEN: Soft, decreased distention, nontender Liver spleen not palpable, no masses palpable. Hyperactive bowel sounds PSYCH: Alert and oriented x3; mood and affect anxious. MUSCULOSKELETAL:No Clubbing/cyanosis;muscles-grossly intact INVESTIGATIONS, reviewed in the clinical context: February 20: Potassium 4.3 creatinine 0.84 Barium enema done today showed no obstruction. Dilated loops of bowel both small and large Abdominal x-ray [813]: Severe ileus February 12: White count 5.5 hemoglobin 8.9 platelets 153 potassium 4.1 creatinine 0.76 February 04: White count 5.3 hemoglobin 10.4 platelets 139 potassium 4 creatinine 0.80 Abdominal x-ray film personally reviewed by me: Ileus February 01: White count 8.3 hemoglobin 10.6 platelets 100 January 31: WBC 7.3 hemoglobin 8 platelets 103 121 TIBC 211% saturation 9.98 transferred 151 B12 516 folate-40 January 29: White count 8.8 hemoglobin 11.3 platelets 95 potassium 4.4 creatinine 0.94 Previous labs: Platelets 108 in October 2022, 103 in August 2022 Assessment and plan: -Reversal of colostomy. Right and left colectomy with end colostomy in September [address] Worthington Nothing by mouth. Follow with surgery. No flatus - postoperative ileus.: Some improvement. Rectal barium enema-showed no obstruction. Rectal tube. neostigmine 5 mg-do not respond to the same. Patient did have a good response to magnesium citrate. Put out about 4 50 mL of liquid stool. full liquid diet. -Acute postprocedure blood loss anemia, expected from surgery causing hypotension: Better Received 1 unit of blood -Postoperative hypotension.: Better lactated Ringer's. Received 1 unit of blood -GERD PPI -Acute medical debility from surgery.: Not improving PTOT. Patient refused therapy -Hypothyroid Levothyroxin -COPD in a current smoker DuoNeb -Chronic nicotine dependence, cigarette smoker Nicotine patch -Thrombocytopenia, improved -Anemia of chronic disease hemoglobin 11.3 Iron deficiency from blood loss. Patient refusing rectal tube to be reinserted. Add lactulose 30 g daily. Continue with full liquid diet Thank you Dr. Worthington
[2023-02-20 16:40] LABS: Glucose,Whole Blood 107 mg/dL (70-110)
[2023-02-20] MEDS: LACTULOSE 20 GM/30 ML CUP PO SCH (17:32)
[2023-02-20] MEDS ORDERED: [UNRECOGNIZED DRUG - OTHER] IV SCH ×7 (19:00)
[2023-02-20] MEDS ORDERED: POTASSIUM CHLORIDE IV SCH ×7 (19:00)
[2023-02-20] MEDS ORDERED: MAGNESIUM SULFATE IV SCH ×7 (19:00)
[2023-02-20] MEDS ORDERED: CALCIUM GLUCONATE IV SCH ×7 (19:00)
[2023-02-21] MEDS: LACTATED RINGERS 1,000 ML IV SCH ×2 (05:20→17:50)
[2023-02-21] MEDS: METOCLOPRAMIDE 5 MG/ML 2 ML VIAL IVP SCH ×3 (06:28→17:00)
[2023-02-21] MEDS: LEVOTHYROXINE 75 MCG TAB PO SCH (06:29)
[2023-02-21] MEDS: PANTOPRAZOLE 40 MG TABLET PO SCH (06:29)
[2023-02-21 06:38] LABS: Glucose,Whole Blood 109 mg/dL (70-110)
[2023-02-21] MEDS: LACTOBACILLUS ACIDOPH & BULGAR 1 EACH PACKET PO SCH (08:05)
[2023-02-21] MEDS: LACTULOSE 20 GM/30 ML CUP PO SCH ×2 (08:06→11:48)
[2023-02-21] MEDS: MULTIVITAMINS, THERA 1 EACH TAB PO SCH (08:12)
[2023-02-21] MEDS: IPRATROPIUM-ALBUTEROL 3 ML NEB INHALATION SCH ×3 (08:12→20:37)
[2023-02-21] MEDS: HEPARIN SODIUM,PORCINE/PF 5,000 UNIT/0.5 ML SYRINGE SQ SCH ×2 (08:12→16:51)
[2023-02-21] MEDS: ACETAMINOPHEN TAB 325 MG TAB PO PRN ×2 (08:12→17:00)
[2023-02-21] MEDS: GABAPENTIN 300 MG CAP PO SCH (08:13)
[2023-02-21] MEDS: PYRIDOXINE 50 MG TAB PO SCH (08:13)
[2023-02-21] MEDS: THIAMINE 100 MG TAB PO SCH (08:13)
[2023-02-21] MEDS ORDERED: CALCIUM GLUCONATE IV SCH ×7 (10:00)
[2023-02-21] MEDS ORDERED: POTASSIUM CHLORIDE IV SCH ×7 (10:00)
[2023-02-21] MEDS ORDERED: [UNRECOGNIZED DRUG - OTHER] IV SCH ×7 (10:00)
[2023-02-21] MEDS ORDERED: MAGNESIUM SULFATE IV SCH ×7 (10:00)
--- NOTE | 2023-02-21 10:23 | P.PN ---
Subjective Progress Note Date: 02/21/23 Principal diagnosis: Post-colostomy reversal Patient without new complaints. No nausea or vomiting. She did pass some flatus last night. No bowel movement. Tolerating full liquids. Objective - Vital Signs Vital signs: Vital Signs Temp 97.5 F L 02/21/23 07:09 Pulse 80 02/21/23 07:09 Resp 17 02/21/23 07:09 BP 144/83 02/21/23 07:09 Pulse Ox 97 02/21/23 08:12 FiO2 21 02/20/23 08:57 Intake & Output 02/20/23 02/21/23 02/21/23 18:59 06:59 18:59 Output Total 19990 Balance -1999 Output: Urine 1999 1649 Other: Voiding Method External Catheter - Exam Abdomen: Soft, mild distention, nontender, incisions clean and dry - Labs CBC & Chem 7: 02/16/23 06:40 02/20/23 06:27 Assessment and Plan (1) History of colostomy reversal Narrative/Plan: Patient doing well at this time. She is passing some flatus. She refused rectal tube placement yesterday apparently. Continue full liquids. Status: Acute Code(s): Z98.890 - OTHER SPECIFIED POSTPROCEDURAL STATES SNOMED Code(s): 06450135048478529
[2023-02-21 10:27] LABS: ALT 63 U/L (4-34); AST 54 U/L (14-36); African American GFR (CKD) >90 (>60 ml/min/1.73 sqM); Albumin 2.6 g/dL (3.5-5.0); Alkaline Phosphatase 93 U/L (38-126); Anion Gap 5 mmol/L; Blood Urea Nitrogen 23 mg/dL (7-17); Calcium 7.6 mg/dL (8.4-10.2); Carbon Dioxide 30 mmol/L (22-30); Chloride 103 mmol/L (98-107); Globulin 2.7 g/dL; Glucose 98 mg/dL (74-99); Magnesium 1.7 mg/dL (1.6-2.3); Non-African American GFR(CKD) 78 (>60 ml/min/1.73 sqM); Phosphorus 4.2 mg/dL (2.5-4.5); Potassium 4.2 mmol/L (3.5-5.1); Sodium 138 mmol/L (137-145); Total Bilirubin 0.2 mg/dL (0.2-1.3); Total Protein 5.3 g/dL (6.3-8.2)
[2023-02-21 11:40] LABS: Glucose,Whole Blood 100 mg/dL (70-110)
[2023-02-21 16:51] LABS: Glucose,Whole Blood 101 mg/dL (70-110)
[2023-02-21 20:13] LABS: Glucose,Whole Blood 189 mg/dL (70-110)
[2023-02-22] MEDS: METOCLOPRAMIDE 5 MG/ML 2 ML VIAL IVP SCH ×3 (00:40→12:01)
[2023-02-22] MEDS: HEPARIN SODIUM,PORCINE/PF 5,000 UNIT/0.5 ML SYRINGE SQ SCH ×3 (00:41→17:12)
[2023-02-22 05:56] LABS: Glucose,Whole Blood 97 mg/dL (70-110)
[2023-02-22 06:10] LABS: ALT 53 U/L (4-34); AST 49 U/L (14-36); African American GFR (CKD) >90 (>60 ml/min/1.73 sqM); Albumin 2.6 g/dL (3.5-5.0); Alkaline Phosphatase 78 U/L (38-126); Anion Gap 3 mmol/L; Blood Urea Nitrogen 24 mg/dL (7-17); Calcium 7.7 mg/dL (8.4-10.2); Carbon Dioxide 27 mmol/L (22-30); Chloride 106 mmol/L (98-107); Globulin 2.7 g/dL; Glucose 99 mg/dL (74-99); Magnesium 1.7 mg/dL (1.6-2.3); Non-African American GFR(CKD) >90 (>60 ml/min/1.73 sqM); Phosphorus 4.9 mg/dL (2.5-4.5); Potassium 4.5 mmol/L (3.5-5.1); Sodium 136 mmol/L (137-145); Total Bilirubin 0.3 mg/dL (0.2-1.3); Total Protein 5.3 g/dL (6.3-8.2)
[2023-02-22] MEDS: LEVOTHYROXINE 75 MCG TAB PO SCH (06:23)
[2023-02-22] MEDS: PANTOPRAZOLE 40 MG TABLET PO SCH (06:23)
[2023-02-22] MEDS: MULTIVITAMINS, THERA 1 EACH TAB PO SCH (08:35)
[2023-02-22] MEDS: GABAPENTIN 300 MG CAP PO SCH (08:35)
[2023-02-22] MEDS: LACTULOSE 20 GM/30 ML CUP PO SCH (08:35)
[2023-02-22] MEDS: THIAMINE 100 MG TAB PO SCH (08:36)
[2023-02-22] MEDS: LACTOBACILLUS ACIDOPH & BULGAR 1 EACH PACKET PO SCH (08:36)
[2023-02-22] MEDS: ACETAMINOPHEN TAB 325 MG TAB PO PRN ×2 (08:36→22:36)
[2023-02-22] MEDS: PYRIDOXINE 50 MG TAB PO SCH (08:36)
[2023-02-22] MEDS: LACTATED RINGERS 1,000 ML IV SCH ×2 (08:36→19:42)
[2023-02-22] MEDS: IPRATROPIUM-ALBUTEROL 3 ML NEB INHALATION SCH ×3 (08:57→20:55)
--- NOTE | 2023-02-22 11:45 | XR ---
EXAMINATION TYPE: XR abdomen 2V DATE OF EXAM: 02/22/2023 COMPARISON: 02/20/2023 HISTORY: Follow-up ileus TECHNIQUE: Single supine KUB image of the abdomen is obtained FINDINGS: Skin elida are noted in place. There is persistent distention of small and large bowel without sign ificant change which may reflect postoperative ileus. No convincing evidence for pneumoperitoneum. No unusual calcifications. The lung bases are clear. The osseous structures are intact. IMPRESSION: 1. Stable features of postoperative ileus
[2023-02-22 11:54] LABS: Glucose,Whole Blood 95 mg/dL (70-110)
--- NOTE | 2023-02-22 13:07 | P.PN ---
Subjective Progress Note Date: 02/22/23 CHIEF COMPLAINT: History of colonic obstruction HISTORY OF PRESENT ILLNESS: Patient is status post exploratory laparotomy, takedown colostomy, takedown splenic flexure, partial colectomy, repair of incisional hernia, lysis of adhesions and partial omentectomy on 01/29/23. Patient also known ileus. She denies pain. Patient did have rectal tube reinserted yesterday. There is some stool noted in the tubing. She is tolerating full liquids. Afebrile. Sodium 136 potassium 4.5 creatinine 0.65 magnesium 1.7 phosphorus 4.9 patient continues to refuse to get out of bed. Patient seen and examined with Dr. coto PHYSICAL EXAM: VITAL SIGNS: Reviewed. GENERAL: Well-developed in no acute distress. ABDOMEN: Mildly distended. Nontender. Minimal bleeding noted at distal aspect of incision likely where this gagging has been torn. ASSESSMENT: 1. History of Colonic obstruction status post colostomy reversal 2. Postoperative ileus expected due to chronic medical condition 3. Atonic rectum PLAN: -Continue rectal tube. Patient may require anal dilation -Continue full liquid diet -Continue TPN for nutrition support -Continue Reglan -Continue antiemetics -Encourage patient to use incentive spirometer -Encourage patient to increase activity level -Continue decubitus ulcer precautions -GI prophylaxis Protonix and DVT prophylaxis subcu heparin [employer] note has been reviewed by physician. Signing provider agrees with the documented findings, assessment, and plan of care. Objective - Vital Signs Vital signs: Vital Signs Temp 98.1 F 02/22/23 07:26 Pulse 85 02/22/23 07:26 Resp 19 02/22/23 07:26 BP 164/89 02/22/23 07:26 Pulse Ox 97 02/22/23 07:26 FiO2 21 02/20/23 08:57 Intake & Output 02/21/23 02/22/23 02/22/23 18:59 06:59 18:59 Output Total 1999 2800 1100 Balance -1999 -2799 -1099 Output: Urine 1999 2800 1100 Other: Voiding Method External Catheter External Catheter # Voids 3 - Labs CBC & Chem 7: 02/16/23 06:40 02/22/23 04:56 Labs: Abnormal Lab Results - Last 24 Hours (Table) 02/21/23 02/22/23 Range/Units 20:11 04:56 Sodium 136 L (137-145) mmol/L BUN 24 H (7-17) mg/dL POC Glucose (mg/dL) 189 H (70-110) mg/dL Calcium 7.7 L (8.4-10.2) mg/dL Phosphorus 4.9 H (2.5-4.5) mg/dL AST 49 H (14-36) U/L ALT 53 H (4-34) U/L Total Protein 5.3 L (6.3-8.2) g/dL Albumin 2.6 L (3.5-5.0) g/dL
--- NOTE | 2023-02-22 16:38 | P.PN ---
Progress Note - Text Progress Note Date: 02/21/23 - Chief Complaint Takedown colostomy Hospital course: This is a 63-year-old patient, who had severe ileus of right and left: And underwent right and left colectomy with end colostomy by Dr. Worthington on 09/21/2022. Patient on January 29/yesterday underwent exploratory laboratory with takedown of colostomy and takedown of splenic flexure with partial colectomy and repair of incisional hernia and lysis of adhesions by Dr. Worthington. Laying in bed this morning has an epidural in place. Wound VAC in place. No nausea vomiting. A bit tired January 31: Patient has not passed any flatus or BM. Pain is controlled. Provena wound VAC in place. Some serosanguineous output. Reclining in bed. Epidural in place. Patient has dropped her hemoglobin to 8. Hypotensive. Despite IV fluids. We will transfuse unit of blood. February 01: Epidural discontinued. Provena discontinued. No flatus. Has been advanced to full liquids. Still rather weak. Hasn't been out of bed. PTOT on the case. Patient received a unit of blood yesterday for hypertension and decreased hemoglobin. February 2: In bed. Did not participate with physical therapist. No flatus. Abdomen distended. Patient did vomit earlier. Diet downgraded by surgery. We will do abdominal x-ray in the morning. February 3: No flatus. Abdomen still distended. Abdominal x-rays confirmed ileus. Patient made nothing by mouth. Reglan was added by surgery. Increase activity as tolerated. February 4: Patient thinks she may pass them flatus. Abdomen still distended. Nothing by mouth. Getting Flagyl. February 5: Patient refusing to participate in therapy. Will not do therapy until she eats. X-rays again showing ileus. Surgery ordered NG tube. Patient states she passed and little amount of flatus. Abdomen distended no nausea vomiting February 12: I resumed care of the patient today from [facility]. Patient remains nothing by mouth. In bed. Tired. Said passed a small amount of flatus. Getting IV TPN and lipids. Patient had been refusing therapy. Abdomen distended. February 13: Reclining in bed. Has been passing some flatus. Decrease abdominal distention. TPN and lipids. On clear liquids. I gave spoke to the patient and family the bedside the importance of being out of bed and working with therapy. Abdominal x-ray showing severe dilatation. February 14: Patient up in a recliner. States she's passed a small amount of flatus. DP and lipids. Clear liquids. Discussed Dr. Worthington. Plan for a rectal contrast enema tomorrow. Also discussed about possibility of using a rectal tube. February 15: Patient underwent a barium enema today. Showed dilated loops of bowel. No mechanical obstruction. Discussed with Dr. Worthington. Rectal tube will be tried. Patient again refusing to participate with therapy. February 16: Patient had a rectal tube placed yesterday. Legs some liquid stool and in a good gush of flatus was obtained. Abdomen more soft and flat in today. Repeat x-ray showed dilatation of small bowel loops. The reduction from prior exam. Patient remains on clear liquid diet. February 17: Putting out some liquid stool. Some abdominal distention. Repeat abdominal x-ray showing further increases ileus. Rectal tube was present. Patient has been made nothing by mouth. Discussed with Dr. Worthington. We will give a trial of neostigmine 5 mg or 5 minutes. Discusses pharmacy. And the nurse. February 18: Patient received neostigmine last night. Did get some abdominal cramping and some bradycardia. Belly relatively soft. Some distention. No pain. No nausea vomiting. February 19: We tried for a few minutes to put the rectal tube to low intermittent suction. Not much response. Patient was then given mag citrate. Patient put on about 300 mL of stool. After the 150 mL afterwards. Rectal tube has been in. We will keep the rectal tube out overnight and see how patient does with bowel movement. Also put the patient on full liquids. As abdomen has been rather soft. Repeat abdominal x-rays in the morning. X-rays also done this morning. February 20: Rectal tube was taken out last night to see how patient does overnight. Did not have a bowel movement. Abdomen soft. Some distention. X-ray showing some ileus. Still better than before. Patient refused rectal tube to be reinserted. We'll add lactulose 20 g daily. Continue full liquids February 21: Patient has refused rectal tube. Discussed with the patient. Finally agreed. Full liquid diet. No bowel movement. No abdominal pain. No nausea vomiting. Will DC Reglan, has shown no benefit. Current medications reviewed Past medical history to include: Hypothyroid, osteomyelitis, COPD, left colectomy with end colostomy Social history: Lives with her boyfriend. Smokes about half a pack a day since age 21. Does use a walker. Physical examination: VITAL SIGNS: 97.5, 80, 17, 144/83, 97% room air GENERAL:, Reclining in bed, comfortable EYES: Pupils equal. Conjunctiva normal. HEENT: External appearance of nose and ears normal, oral cavity dry mucous membranes NECK: JVD not raised; masses not palpable. HEART: First and second heart sounds are normal; no edema. LUNGS: Respiratory rate normal; decreased breath sounds. ABDOMEN: Soft, decreased distention, nontender Liver spleen not palpable, no masses palpable. Hyperactive bowel sounds PSYCH: Alert and oriented x3; mood and affect anxious. MUSCULOSKELETAL:No Clubbing/cyanosis;muscles-grossly intact INVESTIGATIONS, reviewed in the clinical context: February 21: Potassium 4.2 creatinine 0.8 February 20: Potassium 4.3 creatinine 0.84 Barium enema done today showed no obstruction. Dilated loops of bowel both small and large Abdominal x-ray [813]: Severe ileus February 12: White count 5.5 hemoglobin 8.9 platelets 153 potassium 4.1 creatinine 0.76 February 04: White count 5.3 hemoglobin 10.4 platelets 139 potassium 4 creatinine 0.80 Abdominal x-ray film personally reviewed by me: Ileus February 01: White count 8.3 hemoglobin 10.6 platelets 100 January 31: WBC 7.3 hemoglobin 8 platelets 103 121 TIBC 211% saturation 9.98 transferred 151 B12 516 folate-40 January 29: White count 8.8 hemoglobin 11.3 platelets 95 potassium 4.4 creatinine 0.94 Previous labs: Platelets 108 in October 2022, 103 in August 2022 Assessment and plan: -Reversal of colostomy. Right and left colectomy with end colostomy in September [address] Worthington Nothing by mouth. Follow with surgery. No flatus - postoperative ileus.: Some improvement. Rectal barium enema-showed no obstruction. Rectal tube. neostigmine 5 mg-do not respond to the same. Patient did have a good response to magnesium citrate. Put out about 4 50 mL of liquid stool. full liquid diet. -Acute postprocedure blood loss anemia, expected from surgery causing hypotension: Better Received 1 unit of blood -Postoperative hypotension.: Better lactated Ringer's. Received 1 unit of blood -GERD PPI -Acute medical debility from surgery.: Not improving PTOT. Patient refused therapy -Hypothyroid Levothyroxin -COPD in a current smoker DuoNeb -Chronic nicotine dependence, cigarette smoker Nicotine patch -Thrombocytopenia, improved -Anemia of chronic disease hemoglobin 11.3 Iron deficiency from blood loss. Discussed with patient. Agreed for rectal tube be replaced. Getting lactulose. No bowel movement. Thank you Dr. Worthington
--- NOTE | 2023-02-22 16:41 | P.PN ---
Progress Note - Text Progress Note Date: 02/22/23 - Chief Complaint Takedown colostomy Hospital course: This is a 63-year-old patient, who had severe ileus of right and left: And underwent right and left colectomy with end colostomy by Dr. Worthington on 09/21/2022. Patient on January 29/yesterday underwent exploratory laboratory with takedown of colostomy and takedown of splenic flexure with partial colectomy and repair of incisional hernia and lysis of adhesions by Dr. Worthington. Laying in bed this morning has an epidural in place. Wound VAC in place. No nausea vomiting. A bit tired January 31: Patient has not passed any flatus or BM. Pain is controlled. Provena wound VAC in place. Some serosanguineous output. Reclining in bed. Epidural in place. Patient has dropped her hemoglobin to 8. Hypotensive. Despite IV fluids. We will transfuse unit of blood. February 01: Epidural discontinued. Provena discontinued. No flatus. Has been advanced to full liquids. Still rather weak. Hasn't been out of bed. PTOT on the case. Patient received a unit of blood yesterday for hypertension and decreased hemoglobin. February 2: In bed. Did not participate with physical therapist. No flatus. Abdomen distended. Patient did vomit earlier. Diet downgraded by surgery. We will do abdominal x-ray in the morning. February 3: No flatus. Abdomen still distended. Abdominal x-rays confirmed ileus. Patient made nothing by mouth. Reglan was added by surgery. Increase activity as tolerated. February 4: Patient thinks she may pass them flatus. Abdomen still distended. Nothing by mouth. Getting Flagyl. February 5: Patient refusing to participate in therapy. Will not do therapy until she eats. X-rays again showing ileus. Surgery ordered NG tube. Patient states she passed and little amount of flatus. Abdomen distended no nausea vomiting February 12: I resumed care of the patient today from [facility]. Patient remains nothing by mouth. In bed. Tired. Said passed a small amount of flatus. Getting IV TPN and lipids. Patient had been refusing therapy. Abdomen distended. February 13: Reclining in bed. Has been passing some flatus. Decrease abdominal distention. TPN and lipids. On clear liquids. I gave spoke to the patient and family the bedside the importance of being out of bed and working with therapy. Abdominal x-ray showing severe dilatation. February 14: Patient up in a recliner. States she's passed a small amount of flatus. DP and lipids. Clear liquids. Discussed Dr. Worthington. Plan for a rectal contrast enema tomorrow. Also discussed about possibility of using a rectal tube. February 15: Patient underwent a barium enema today. Showed dilated loops of bowel. No mechanical obstruction. Discussed with Dr. Worthington. Rectal tube will be tried. Patient again refusing to participate with therapy. February 16: Patient had a rectal tube placed yesterday. Legs some liquid stool and in a good gush of flatus was obtained. Abdomen more soft and flat in today. Repeat x-ray showed dilatation of small bowel loops. The reduction from prior exam. Patient remains on clear liquid diet. February 17: Putting out some liquid stool. Some abdominal distention. Repeat abdominal x-ray showing further increases ileus. Rectal tube was present. Patient has been made nothing by mouth. Discussed with Dr. Worthington. We will give a trial of neostigmine 5 mg or 5 minutes. Discusses pharmacy. And the nurse. February 18: Patient received neostigmine last night. Did get some abdominal cramping and some bradycardia. Belly relatively soft. Some distention. No pain. No nausea vomiting. February 19: We tried for a few minutes to put the rectal tube to low intermittent suction. Not much response. Patient was then given mag citrate. Patient put on about 300 mL of stool. After the 150 mL afterwards. Rectal tube has been in. We will keep the rectal tube out overnight and see how patient does with bowel movement. Also put the patient on full liquids. As abdomen has been rather soft. Repeat abdominal x-rays in the morning. X-rays also done this morning. February 20: Rectal tube was taken out last night to see how patient does overnight. Did not have a bowel movement. Abdomen soft. Some distention. X-ray showing some ileus. Still better than before. Patient refused rectal tube to be reinserted. We'll add lactulose 20 g daily. Continue full liquids February 21: Patient has refused rectal tube. Discussed with the patient. Finally agreed. Full liquid diet. No bowel movement. No abdominal pain. No nausea vomiting. Will SHAN Carrillo has shown no benefit. February 22: Patient's had rectal tube since yesterday. Minimal BM if any. No other changes. Liquid diet. Abdominal x-ray from today shows persistent distention of small and large bowel. Active Medications Acetaminophen (Acetaminophen Tab 325 Mg Tab) 650 mg PO Q6HR PRN PRN Reason: Fever and/ or Pain Last Admin: 02/22/23 08:36 Dose: 650 mg Albuterol/Ipratropium (Ipratropium-Albuterol 3 Ml Neb) 3 ml INHALATION RT-Q8H PRN PRN Reason: Wheezing Albuterol/Ipratropium (Ipratropium-Albuterol 3 Ml Neb) 3 ml INHALATION RT-TID [facility] Last Admin: 02/22/23 11:53 Dose: Not Given Gabapentin (Gabapentin 300 Mg Cap) 300 mg PO DAILY [facility] Last Admin: 02/22/23 08:35 Dose: 300 mg Heparin Sodium (Porcine) (Heparin Sodium,Porcine/Pf 5,000 Unit/0.5 Ml Syringe) 5,000 unit SQ Q8HR [facility] Last Admin: 02/22/23 08:35 Dose: 5,000 unit Lactated Ringer's (Lactated Ringers) 1,000 mls @ 75 mls/hr IV .[id number] [facility] Last Admin: 02/22/23 08:36 Dose: 75 mls/hr Fat Emulsion Intravenous 250 (ml/ IV Solution) 250 mls @ 21 mls/hr IV MoTh [facility] Last Admin: 02/18/23 17:02 Dose: 21 mls/hr Potassium Chloride 36 meq/Magnesium Sulfate 2 gm/Calcium Gluconate 2 gm/ Sodium Chloride 52 meq/ Amino Acids/Dextrose 1,055 mls @ 60 mls/hr IV .BY DURATION [facility] Stop: 02/22/23 16:59 Last Admin: 02/22/23 00:41 Dose: 60 mls/hr Parenteral Vitamin Supplement 10 ml/ Zinc/Copper/Manganese/Selenium 1 ml/ Potassium Chloride 36 meq/ Magnesium Sulfate 2 gm/ Calcium Gluconate 2 gm/ Sodium Chloride 52 meq/ Amino Acids/Dextrose 1,066 mls @ 60 mls/hr IV .BY DURATION [facility] Stop: 02/22/23 16:59 Potassium Chloride 36 meq/Magnesium Sulfate 2 gm/Calcium Gluconate 2 gm/ Sodium Chloride 60 meq/ Amino Acids/Dextrose 1,057 mls @ 60 mls/hr IV .BY DURATION [facility] Parenteral Vitamin Supplement 10 ml/ Zinc/Copper/Manganese/Selenium 1 ml/ Potassium Chloride 36 meq/ Magnesium Sulfate 2 gm/ Calcium Gluconate 2 gm/ So dium Chloride 60 meq/ Amino Acids/Dextrose 1,068 mls @ 60 mls/hr IV .BY DURATION [facility] Lactobacillus Acidoph/Bulgaricus (Lactobacillus Acidoph & Bulgar 1 Each Packet) 1 each PO DAILY [facility] Last Admin: 02/22/23 08:36 Dose: 1 each Lactulose (Lactulose 20 Gm/30 Ml Cup) 30 gm PO DAILY [facility] Last Admin: 02/22/23 08:35 Dose: 30 gm Levothyroxine Sodium (Levothyroxine 75 Mcg Tab) 75 mcg PO DAILY@0630 [facility] Last Admin: 02/22/23 06:23 Dose: 75 mcg Miscellaneous Information (Potassium Replacement Protocol 1 Each Misc) 1 each MISCELLANE DAILY PRN; Protocol PRN Reason: Per Protocol Miscellaneous Information (Magnesium Replacement Protocol 1 Each Misc) 1 each MISCELLANE DAILY PRN; Protocol PRN Reason: Per Protocol Multivitamins (Multivitamins, Thera 1 Each Tab) 1 each PO DAILY [facility] Last Admin: 02/22/23 08:35 Dose: 1 each Naloxone HCl (Naloxone 0.4 Mg/Ml 1 Ml Vial) 0.2 mg IV Q2M PRN PRN Reason: Opioid Reversal Ondansetron HCl (Ondansetron 4 Mg/2 Ml Vial) 4 mg IVP Q6HR PRN PRN Reason: Nausea And Vomiting Last Admin: 02/17/23 23:06 Dose: 4 mg Pantoprazole Sodium (Pantoprazole 40 Mg Tablet) 40 mg PO AC-BRKFST [facility] Last Admin: 02/22/23 06:23 Dose: 40 mg Pyridoxine HCl (Pyridoxine 50 Mg Tab) 100 mg PO DAILY [facility] Last Admin: 02/22/23 08:36 Dose: 100 mg Thiamine HCl (Thiamine 100 Mg Tab) 100 mg PO DAILY [facility] Last Admin: 02/22/23 08:36 Dose: 100 mg Past medical history to include: Hypothyroid, osteomyelitis, COPD, left colectomy with end colostomy Social history: Lives with her boyfriend. Smokes about half a pack a day since age 21. Does use a walker. Physical examination: VITAL SIGNS: 98.1, 85, 19, 164/89, 97% room air GENERAL:, Reclining in bed, comfortable EYES: Pupils equal. Conjunctiva normal. HEENT: External appearance of nose and ears normal, oral cavity dry mucous membranes NECK: JVD not raised; masses not palpable. HEART: First and second heart sounds are normal; no edema. LUNGS: Respiratory rate normal; decreased breath sounds. ABDOMEN: Soft, some distention, nontender Liver spleen not palpable, no masses palpable. Hyperactive bowel sounds PSYCH: Alert and oriented x3; mood and affect anxious. MUSCULOSKELETAL:No Clubbing/cyanosis;muscles-grossly intact INVESTIGATIONS, reviewed in the clinical context: February 21: Potassium 4.2 creatinine 0.8 February 20: Potassium 4.3 creatinine 0.84 Barium enema done today showed no obstruction. Dilated loops of bowel both small and large Abdominal x-ray [813]: Severe ileus February 12: White count 5.5 hemoglobin 8.9 platelets 153 potassium 4.1 creatinine 0.76 February 04: White count 5.3 hemoglobin 10.4 platelets 139 potassium 4 creatinine 0.80 Abdominal x-ray film personally reviewed by me: Ileus February 01: White count 8.3 hemoglobin 10.6 platelets 100 January 31: WBC 7.3 hemoglobin 8 platelets 103 121 TIBC 211% saturation 9.98 transferred 151 B12 516 folate-40 January 29: White count 8.8 hemoglobin 11.3 platelets 95 potassium 4.4 creatinine 0.94 Previous labs: Platelets 108 in October 2022, 103 in August 2022 Assessment and plan: -Reversal of colostomy. Right and left colectomy with end colostomy in September [address] Worthington Nothing by mouth. Follow with surgery. No flatus - postoperative ileus.: Still present Rectal barium enema-showed no obstruction. Rectal tube. neostigmine 5 mg-do not respond to the same. Patient did have a good response to magnesium citrate. Put out about 4 50 mL of liquid stool. full liquid diet. -Acute postprocedure blood loss anemia, expected from surgery causing hypotension: Better Received 1 unit of blood -Postoperative hypotension.: Better lactated Ringer's. Received 1 unit of blood -GERD PPI -Acute medical debility from surgery.: Not improving PTOT. Patient refused therapy -Hypothyroid Levothyroxin -COPD in a current smoker Deloresb -Chronic nicotine dependence, cigarette smoker Nicotine patch -Thrombocytopenia, improved -Anemia of chronic disease hemoglobin 11.3 Iron deficiency from blood loss. Rectal tube in place. No real stool output. We will try magnesia citrate. Repetition today. Options very limited now. Thank you Dr. Worthington
[2023-02-22] MEDS ORDERED: MAGNESIUM CITRATE 296 ML BOTTLE PO ONE (17:00)
[2023-02-22] MEDS: FAT EMULSION 20% 250 ML in EMPTY BAG 1 BAG IV SCH (17:12)
[2023-02-22 18:13] LABS: Glucose,Whole Blood 102 mg/dL (70-110)
[2023-02-22] MEDS: ONDANSETRON 4 MG/2 ML VIAL IVP PRN (22:36)
[2023-02-23] MEDS: HEPARIN SODIUM,PORCINE/PF 5,000 UNIT/0.5 ML SYRINGE SQ SCH ×4 (00:12→23:11)
[2023-02-23 00:15] LABS: Glucose,Whole Blood 125 mg/dL (70-110)
[2023-02-23] MEDS: PANTOPRAZOLE 40 MG TABLET PO SCH (05:06)
[2023-02-23] MEDS: LEVOTHYROXINE 75 MCG TAB PO SCH (05:06)
[2023-02-23 05:40] LABS: Glucose,Whole Blood 107 mg/dL (70-110)
[2023-02-23 05:49] LABS: African American GFR (CKD) 87 (>60 ml/min/1.73 sqM); Anion Gap 4 mmol/L; Blood Urea Nitrogen 26 mg/dL (7-17); Carbon Dioxide 33 mmol/L (22-30); Chloride 99 mmol/L (98-107); Glucose 101 mg/dL (74-99); Magnesium 2.2 mg/dL (1.6-2.3); Non-African American GFR(CKD) 75 (>60 ml/min/1.73 sqM); Phosphorus 4.5 mg/dL (2.5-4.5); Potassium 4.2 mmol/L (3.5-5.1); Sodium 136 mmol/L (137-145)
[2023-02-23] MEDS: LACTATED RINGERS 1,000 ML IV SCH ×2 (08:33→20:44)
[2023-02-23] MEDS: GABAPENTIN 300 MG CAP PO SCH (08:33)
[2023-02-23] MEDS: LACTOBACILLUS ACIDOPH & BULGAR 1 EACH PACKET PO SCH (08:33)
[2023-02-23] MEDS: LACTULOSE 20 GM/30 ML CUP PO SCH (08:33)
[2023-02-23] MEDS: MULTIVITAMINS, THERA 1 EACH TAB PO SCH (08:34)
[2023-02-23] MEDS: THIAMINE 100 MG TAB PO SCH (08:34)
[2023-02-23] MEDS: PYRIDOXINE 50 MG TAB PO SCH (08:34)
[2023-02-23] MEDS: IPRATROPIUM-ALBUTEROL 3 ML NEB INHALATION SCH ×3 (08:43→20:44)
[2023-02-23 08:48] LABS: HCT 30.9 % (37.2-46.3); HGB 9.3 g/dL (12.0-15.0); MCH 29.5 pg (27.0-32.0); MCHC 30.1 g/dL (32.0-37.0); MCV 98.1 fL (80.0-97.0); Mean Platelet Volume 11.8 fL (9.5-12.2); NRBC Per 100 WBC 0 /100 WBCS (0.0-0.0); Platelet Count 167 X 10*3/uL (140-440); RBC 3.15 X 10*6/uL (4.10-5.20); RDW 17.4 % (11.5-14.5); WBC 6.39 X 10*3/uL (4.50-10.00)
[2023-02-23 12:21] LABS: Glucose,Whole Blood 108 mg/dL (70-110)
--- NOTE | 2023-02-23 15:14 | P.PN ---
Subjective Progress Note Date: 02/23/23 CHIEF COMPLAINT: History of colonic obstruction HISTORY OF PRESENT ILLNESS: Patient is status post exploratory laparotomy, takedown colostomy, takedown splenic flexure, partial colectomy, repair of incisional hernia, lysis of adhesions and partial omentectomy on 01/29/23. Patient also has ileus. She denies pain. Patient's rectal tube was discontinued yesterday. Patient was given mag citrate. She did have a large bowel movement yesterday and again today. She denies any nausea or vomiting. She tolerated the full liquids. Afebrile. Patient seen and examined with Dr. coto PHYSICAL EXAM: VITAL SIGNS: Reviewed. GENERAL: Well-developed in no acute distress. ABDOMEN: Mildly distended. Nontender. dressing clean, dry and intact ASSESSMENT: 1. History of Colonic obstruction status post colostomy reversal 2. Postoperative ileus expected due to chronic medical condition 3. Atonic rectum PLAN: -Continue rectal tube -Continue full liquid diet -Continue TPN for nutrition support -Continue Reglan -Continue antiemetics -Encourage patient to use incentive spirometer -Encourage patient to increase activity level -Continue decubitus ulcer precautions -GI prophylaxis Protonix and DVT prophylaxis subcu heparin [employer] note has been reviewed by physician. Signing provider agrees with the documented findings, assessment, and plan of care. Objective - Vital Signs Vital signs: Vital Signs Temp 97.6 F 02/23/23 12:55 Pulse 97 02/23/23 12:55 Resp 19 02/23/23 12:55 BP 82/54 02/23/23 12:55 Pulse Ox 98 02/23/23 12:55 FiO2 21 02/20/23 08:57 Intake & Output 02/22/23 02/23/23 02/23/23 18:59 06:59 18:59 Intake Total 236 Output Total 2700 1003 Balance -2700 -1003 236 Weight 55.57 kg Intake: Oral 236 Output: Urine 2700 1000 Stool 3 Other: Voiding Method External Catheter - Labs CBC & Chem 7: 02/23/23 05:01 02/23/23 05:01 Labs: Abnormal Lab Results - Last 24 Hours (Table) 02/23/23 02/23/23 02/23/23 Range/Units 00:13 05:01 05:01 RBC 3.15 L (4.10-5.20) X 10*6/uL Hgb 9.3 L (12.0-15.0) g/dL Hct 30.9 L (37.2-46.3) % MCV 98.1 H (80.0-97.0) fL MCHC 30.1 L (32.0-37.0) g/dL RDW 17.4 H (11.5-14.5) % Sodium 136 L (137-145) mmol/L Carbon Dioxide 33 H (22-30) mmol/L BUN 26 H (7-17) mg/dL Glucose 101 H (74-99) mg/dL POC Glucose (mg/dL) 125 H (70-110) mg/dL Calcium 8.0 L (8.4-10.2) mg/dL
[2023-02-23 18:17] LABS: Glucose,Whole Blood 101 mg/dL (70-110)
--- NOTE | 2023-02-23 20:17 | P.PN ---
Progress Note - Text Progress Note Date: 02/23/23 - Chief Complaint Takedown colostomy Hospital course: This is a 63-year-old patient, who had severe ileus of right and left: And underwent right and left colectomy with end colostomy by Dr. Worthington on 09/21/2022. Patient on January 29/yesterday underwent exploratory laboratory with takedown of colostomy and takedown of splenic flexure with partial colectomy and repair of incisional hernia and lysis of adhesions by Dr. Worthington. Laying in bed this morning has an epidural in place. Wound VAC in place. No nausea vomiting. A bit tired January 31: Patient has not passed any flatus or BM. Pain is controlled. Provena wound VAC in place. Some serosanguineous output. Reclining in bed. Epidural in place. Patient has dropped her hemoglobin to 8. Hypotensive. Despite IV fluids. We will transfuse unit of blood. February 01: Epidural discontinued. Provena discontinued. No flatus. Has been advanced to full liquids. Still rather weak. Hasn't been out of bed. PTOT on the case. Patient received a unit of blood yesterday for hypertension and decreased hemoglobin. February 2: In bed. Did not participate with physical therapist. No flatus. Abdomen distended. Patient did vomit earlier. Diet downgraded by surgery. We will do abdominal x-ray in the morning. February 3: No flatus. Abdomen still distended. Abdominal x-rays confirmed ileus. Patient made nothing by mouth. Reglan was added by surgery. Increase activity as tolerated. February 4: Patient thinks she may pass them flatus. Abdomen still distended. Nothing by mouth. Getting Flagyl. February 5: Patient refusing to participate in therapy. Will not do therapy until she eats. X-rays again showing ileus. Surgery ordered NG tube. Patient states she passed and little amount of flatus. Abdomen distended no nausea vomiting February 12: [facility] Patient remains nothing by mouth. In bed. Tired. Said passed a small amount of flatus. Getting IV TPN and lipids. Patient had been refusing therapy. Abdomen distended. February 13: Reclining in bed. Has been passing some flatus. Decrease abdominal distention. TPN and lipids. On clear liquids. I gave spoke to the patient and family the bedside the importance of being out of bed and working with therapy. Abdominal x-ray showing severe dilatation. February 14: Patient up in a recliner. States she's passed a small amount of flatus. DP and lipids. Clear liquids. Discussed Dr. Worthington. Plan for a rectal contrast enema tomorrow. Also discussed about possibility of using a rectal tube. February 15: Patient underwent a barium enema today. Showed dilated loops of bowel. No mechanical obstruction. Discussed with Dr. Worthington. Rectal tube will be tried. Patient again refusing to participate with therapy. February 16: Patient had a rectal tube placed yesterday. Legs some liquid stool and in a good gush of flatus was obtained. Abdomen more soft and flat in today. Repeat x-ray showed dilatation of small bowel loops. The reduction from prior exam. Patient remains on clear liquid diet. February 17: Putting out some liquid stool. Some abdominal distention. Repeat abdominal x-ray showing further increases ileus. Rectal tube was present. Patient has been made nothing by mouth. Discussed with Dr. Worthington. We will give a trial of neostigmine 5 mg or 5 minutes. Discusses pharmacy. And the nurse. February 18: Patient received neostigmine last night. Did get some abdominal cramping and some bradycardia. Belly relatively soft. Some distention. No pain. No nausea vomiting. February 19: We tried for a few minutes to put the rectal tube to low intermittent suction. Not much response. Patient was then given mag citrate. Patient put on about 300 mL of stool. After the 150 mL afterwards. Rectal tube has been in. We will keep the rectal tube out overnight and see how patient does with bowel movement. Also put the patient on full liquids. As abdomen has been rather soft. Repeat abdominal x-rays in the morning. X-rays also done this morning. February 20: Rectal tube was taken out last night to see how patient does overnight. Did not have a bowel movement. Abdomen soft. Some distention. X-ray showing some ileus. Still better than before. Patient refused rectal tube to be reinserted. We'll add lactulose 20 g daily. Continue full liquids February 21: Patient has refused rectal tube. Discussed with the patient. Finally agreed. Full liquid diet. No bowel movement. No abdominal pain. No nausea vomiting. Will SHAN Carrillo has shown no benefit. February 22: Patient's had rectal tube since yesterday. Minimal BM if any. No other changes. Liquid diet. Abdominal x-ray from today shows persistent distention of small and large bowel. February 23: Patient received magnesium citrate yesterday. Had a large bowel movement yesterday today. Continues on full liquid diet. TPN and lipids. Abdomen is softer. Patient still very reluctant to sit up in a chair or participate in therapy. Did stand up. When unable to take steps because of knee buckling. Active Medications Acetaminophen (Acetaminophen Tab 325 Mg Tab) 650 mg PO Q6HR PRN PRN Reason: Fever and/ or Pain Last Admin: 02/22/23 22:36 Dose: 650 mg Albuterol/Ipratropium (Ipratropium-Albuterol 3 Ml Neb) 3 ml INHALATION RT-Q8H PRN PRN Reason: Wheezing Albuterol/Ipratropium (Ipratropium-Albuterol 3 Ml Neb) 3 ml INHALATION RT-TID [facility] Last Admin: 02/23/23 11:40 Dose: Not Given Gabapentin (Gabapentin 300 Mg Cap) 300 mg PO DAILY [facility] Last Admin: 02/23/23 08:33 Dose: 300 mg Heparin Sodium (Porcine) (Heparin Sodium,Porcine/Pf 5,000 Unit/0.5 Ml Syringe) 5,000 unit SQ Q8HR [facility] Last Admin: 02/23/23 16:21 Dose: 5,000 unit Lactated Ringer's (Lactated Ringers) 1,000 mls @ 75 mls/hr IV .[id number] [facility] Last Admin: 02/23/23 08:33 Dose: 75 mls/hr Fat Emulsion Intravenous 250 (ml/ IV Solution) 250 mls @ 21 mls/hr IV MoTh [facility] Last Admin: 02/22/23 17:12 Dose: 21 mls/hr Potassium Chloride 36 meq/Magnesium Sulfate 2 gm/Calcium Gluconate 2 gm/ Sodium Chloride 60 meq/ Amino Acids/Dextrose 1,057 mls @ 60 mls/hr IV .BY DURATION [facility] Last Admin: 02/22/23 17:13 Dose: 60 mls/hr Parenteral Vitamin Supplement 10 ml/ Zinc/Copper/Manganese/Selenium 1 ml/ Potas sium Chloride 36 meq/ Magnesium Sulfate 2 gm/ Calcium Gluconate 2 gm/ Sodium Chloride 60 meq/ Amino Acids/Dextrose 1,068 mls @ 60 mls/hr IV .BY DURATION [facility] Last Admin: 02/23/23 10:28 Dose: 60 mls/hr Lactobacillus Acidoph/Bulgaricus (Lactobacillus Acidoph & Bulgar 1 Each Packet) 1 each PO DAILY [facility] Last Admin: 02/23/23 08:33 Dose: 1 each Lactulose (Lactulose 20 Gm/30 Ml Cup) 30 gm PO DAILY [facility] Last Admin: 02/23/23 08:33 Dose: 30 gm Levothyroxine Sodium (Levothyroxine 75 Mcg Tab) 75 mcg PO DAILY@0630 [facility] Last Admin: 02/23/23 05:06 Dose: 75 mcg Miscellaneous Information (Potassium Replacement Protocol 1 Each Misc) 1 each MISCELLANE DAILY PRN; Protocol PRN Reason: Per Protocol Miscellaneous Information (Magnesium Replacement Protocol 1 Each Misc) 1 each MISCELLANE DAILY PRN; Protocol PRN Reason: Per Protocol Multivitamins (Multivitamins, Thera 1 Each Tab) 1 each PO DAILY [facility] Last Admin: 02/23/23 08:34 Dose: 1 each Naloxone HCl (Naloxone 0.4 Mg/Ml 1 Ml Vial) 0.2 mg IV Q2M PRN PRN Reason: Opioid Reversal Ondansetron HCl (Ondansetron 4 Mg/2 Ml Vial) 4 mg IVP Q6HR PRN PRN Reason: Nausea And Vomiting Last Admin: 02/22/23 22:36 Dose: 4 mg Pantoprazole Sodium (Pantoprazole 40 Mg Tablet) 40 mg PO AC-BRKFST [facility] Last Admin: 02/23/23 05:06 Dose: 40 mg Pyridoxine HCl (Pyridoxine 50 Mg Tab) 100 mg PO DAILY [facility] Last Admin: 02/23/23 08:34 Dose: 100 mg Thiamine HCl (Thiamine 100 Mg Tab) 100 mg PO DAILY [facility] Last Admin: 02/23/23 08:34 Dose: 100 mg Past medical history to include: Hypothyroid, osteomyelitis, COPD, left colectomy with end colostomy Social history: Lives with her boyfriend. Smokes about half a pack a day since age 21. Does use a walker. Physical examination: VITAL SIGNS: 97.6, 97, 19, 82/54, 98% room air GENERAL:, Reclining in bed, comfortable EYES: Pupils equal. Conjunctiva normal. HEENT: External appearance of nose and ears normal, oral cavity dry mucous membranes NECK: JVD not raised; masses not palpable. HEART: First and second heart sounds are normal; no edema. LUNGS: Respiratory rate normal; decreased breath sounds. ABDOMEN: Soft, decreased distention, nontender Liver spleen not palpable, no mas ses palpable. Hyperactive bowel sounds PSYCH: Alert and oriented x3; mood and affect anxious. MUSCULOSKELETAL:No Clubbing/cyanosis;muscles-grossly intact INVESTIGATIONS, reviewed in the clinical context: February 23: WBC 6.3 hemoglobin 9.3 potassium 4.2 creatinine 0.83 and magnesium 2.2 February 21: Potassium 4.2 creatinine 0.8 February 20: Potassium 4.3 creatinine 0.84 Barium enema done today showed no obstruction. Dilated loops of bowel both small and large Abdominal x-ray [813]: Severe ileus February 12: White count 5.5 hemoglobin 8.9 platelets 153 potassium 4.1 creatinine 0.76 February 04: White count 5.3 hemoglobin 10.4 platelets 139 potassium 4 creatinine 0.80 Abdominal x-ray film personally reviewed by me: Ileus February 01: White count 8.3 hemoglobin 10.6 platelets 100 January 31: WBC 7.3 hemoglobin 8 platelets 103 121 TIBC 211% saturation 9.98 transferred 151 B12 516 folate-40 January 29: White count 8.8 hemoglobin 11.3 platelets 95 potassium 4.4 creatinine 0.94 Previous labs: Platelets 108 in October 2022, 103 in August 2022 Assessment and plan: -Reversal of colostomy. Right and left colectomy with end colostomy in September [address] Worthington Nothing by mouth. Follow with surgery. No flatus - postoperative ileus.: Some improvement Rectal barium enema-showed no obstruction. Rectal tube. neostigmine 5 mg-do not respond to the same. Patient's times to receive magnesium citrate. good bowel movement response. -Acute postprocedure blood loss anemia, expected from surgery causing hypotension: Better Received 1 unit of blood -Postoperative hypotension.: Better lactated Ringer's. Received 1 unit of blood -GERD PPI -Acute medical debility from surgery.: Not improving PTOT. Patient refused therapy -Hypothyroid Levothyroxin -COPD in a current smoker DuoNeb -Chronic nicotine dependence, cigarette smoker Nicotine patch -Thrombocytopenia, improved -Anemia of chronic disease hemoglobin 11.3 Iron deficiency from blood loss. Rectal tube in place. Responded well to magnesium citrate. For liquid to continue. Repeat x-ray in the morning. Thank you Dr. Worthington
[2023-02-24 00:17] LABS: Glucose,Whole Blood 112 mg/dL (70-110)
[2023-02-24] MEDS: PANTOPRAZOLE 40 MG TABLET PO SCH (06:08)
[2023-02-24] MEDS: LEVOTHYROXINE 75 MCG TAB PO SCH (06:08)
[2023-02-24 06:38] LABS: Glucose,Whole Blood 108 mg/dL (70-110)
[2023-02-24 06:55] LABS: African American GFR (CKD) 83 (>60 ml/min/1.73 sqM); Anion Gap 6 mmol/L; Blood Urea Nitrogen 27 mg/dL (7-17); Carbon Dioxide 30 mmol/L (22-30); Chloride 100 mmol/L (98-107); Glucose 113 mg/dL (74-99); Magnesium 1.9 mg/dL (1.6-2.3); Non-African American GFR(CKD) 72 (>60 ml/min/1.73 sqM); Phosphorus 4.2 mg/dL (2.5-4.5); Potassium 4.5 mmol/L (3.5-5.1); Sodium 136 mmol/L (137-145)
--- NOTE | 2023-02-24 07:44 | P.PN ---
Progress Note - Text Progress Note Date: 02/23/23 The patient has had local multiple large liquid bowel movements. She does not have a rectal tube in place. Patient's ileus appears to be resolving. She will continue on full liquid diet. The patient has been reluctant to move out of her bed.
[2023-02-24] MEDS: IPRATROPIUM-ALBUTEROL 3 ML NEB INHALATION SCH ×3 (08:48→19:33)
[2023-02-24] MEDS: HEPARIN SODIUM,PORCINE/PF 5,000 UNIT/0.5 ML SYRINGE SQ SCH ×2 (09:23→15:44)
[2023-02-24] MEDS: THIAMINE 100 MG TAB PO SCH (09:24)
[2023-02-24] MEDS: LACTOBACILLUS ACIDOPH & BULGAR 1 EACH PACKET PO SCH (09:24)
[2023-02-24] MEDS: PYRIDOXINE 50 MG TAB PO SCH (09:24)
[2023-02-24] MEDS: GABAPENTIN 300 MG CAP PO SCH (09:24)
[2023-02-24] MEDS: MULTIVITAMINS, THERA 1 EACH TAB PO SCH (09:24)
[2023-02-24] MEDS: LACTULOSE 20 GM/30 ML CUP PO SCH (09:24)
--- NOTE | 2023-02-24 10:11 | XR ---
EXAMINATION TYPE: XR abdomen 2V DATE OF EXAM: 02/24/2023 7:02 AM INDICATION: Patient age:Female; 63 years old; Reason for study: Follow-up ileus; COMPARISON: 02/22/2023 TECHNIQUE: Two views of the abdomen were obtained. FINDINGS: Surgical skin elida seen projecting of the abdomen. There is gaseous dilation of loops of bowel throughout the abdomen. IMPRESSION: Similar probable ileus changes with scattered gaseous dilation of the bowel.
--- NOTE | 2023-02-24 11:11 | P.PN ---
Subjective Progress Note Date: 02/24/23 CHIEF COMPLAINT: History of colonic obstruction HISTORY OF PRESENT ILLNESS: Patient is status post exploratory laparotomy, takedown colostomy, takedown splenic flexure, partial colectomy, repair of incisional hernia, lysis of adhesions and partial omentectomy on 01/29/23. Patient has ileus. She denies pain. Rectal tube remains out. Patient had 2 bowel movements yesterday. She tolerated the full liquids. Abdomen does remain distended, but is softer. Afebrile. Na 136 K 4.5 cr 0.86 Patient seen and examined with Dr. coto PHYSICAL EXAM: VITAL SIGNS: Reviewed. GENERAL: Well-developed in no acute distress. ABDOMEN: Distended. Nontender. dressing clean, dry and intact ASSESSMENT: 1. History of Colonic obstruction status post colostomy reversal 2. Postoperative ileus expected due to chronic medical condition 3. Atonic rectum PLAN: -Continue full liquid diet -Continue TPN for nutrition support -Continue Reglan -Continue antiemetics -Encourage patient to use incentive spirometer -Encourage patient to increase activity level -Continue decubitus ulcer precautions -GI prophylaxis Protonix and DVT prophylaxis subcu heparin Physician Recruitment Assistant note has been reviewed by physician. Signing provider agrees with the documented findings, assessment, and plan of care. Objective - Vital Signs Vital signs: Vital Signs Temp 97.9 F 02/24/23 07:14 Pulse 83 02/24/23 07:14 Resp 17 02/24/23 07:14 BP 153/82 02/24/23 07:14 Pulse Ox 97 02/24/23 08:52 FiO2 21 02/24/23 08:52 Intake & Output 02/23/23 02/24/23 02/24/23 18:59 06:59 18:59 Intake Total 1293 480 Output Total 1000 Balance 1293 -1000 480 Intake: Intake, IV Titration 1057 480 Amount Mvi, Adult No.4 with Vit 480 K 10 ml Trace (Conc-1Ml/ Dose) 1 ml Potassium Chloride 32 meq Magnesium Sulfate gm 2 gm Calcium Gluconate 2 gm Sodium Chloride 4Meq/ml Vial 74 meq In Amino Acids 5 %/ Dextrose 20 % 1,000 ml @ 60 mls/hr IV .BY DURATION [facility] Rx#:[id number] Potassium Chloride 36 meq 1057 Magnesium Sulfate gm 2 gm Calcium Gluconate 2 gm Sodium Chloride 4Meq/ml Vial 60 meq In Amino Acids 5 %/Dextrose 20 % 1 ,000 ml @ 60 mls/hr IV . BY DURATION [facility] Rx#: [id number] Oral 236 Output: Urine 1000 Other: Voiding Method External Catheter Incontinent External Catheter # Voids 2 # Bowel Movements 2 - Labs CBC & Chem 7: 02/23/23 05:01 02/24/23 06:24 Labs: Abnormal Lab Results - Last 24 Hours (Table) 02/24/23 02/24/23 Range/Units 00:14 06:24 Sodium 136 L (137-145) mmol/L BUN 27 H (7-17) mg/dL Glucose 113 H (74-99) mg/dL POC Glucose (mg/dL) 112 H (70-110) mg/dL Calcium 8.0 L (8.4-10.2) mg/dL
--- NOTE | 2023-02-24 11:24 | P.PN ---
Progress Note - Text Progress Note Date: 02/24/23 - Chief Complaint Takedown colostomy Hospital course: This is a 63-year-old patient, who had severe ileus of right and left: And underwent right and left colectomy with end colostomy by Dr. Worthington on 09/21/2022. Patient on January 29/yesterday underwent exploratory laboratory with takedown of colostomy and takedown of splenic flexure with partial colectomy and repair of incisional hernia and lysis of adhesions by Dr. Worthington. Laying in bed this morning has an epidural in place. Wound VAC in place. No nausea vomiting. A bit tired January 31: Patient has not passed any flatus or BM. Pain is controlled. Provena wound VAC in place. Some serosanguineous output. Reclining in bed. Epidural in place. Patient has dropped her hemoglobin to 8. Hypotensive. Despite IV fluids. We will transfuse unit of blood. February 01: Epidural discontinued. Provena discontinued. No flatus. Has been advanced to full liquids. Still rather weak. Hasn't been out of bed. PTOT on the case. Patient received a unit of blood yesterday for hypertension and decreased hemoglobin. February 2: In bed. Did not participate with physical therapist. No flatus. Abdomen distended. Patient did vomit earlier. Diet downgraded by surgery. We will do abdominal x-ray in the morning. February 3: No flatus. Abdomen still distended. Abdominal x-rays confirmed ileus. Patient made nothing by mouth. Reglan was added by surgery. Increase activity as tolerated. February 4: Patient thinks she may pass them flatus. Abdomen still distended. Nothing by mouth. Getting Flagyl. February 5: Patient refusing to participate in therapy. Will not do therapy until she eats. X-rays again showing ileus. Surgery ordered NG tube. Patient states she passed and little amount of flatus. Abdomen distended no nausea vomiting February 12: I resumed care of the patient today from [facility]. Patient remains nothing by mouth. In bed. Tired. Said passed a small amount of flatus. Getting IV TPN and lipids. Patient had been refusing therapy. Abdomen distended. February 13: Reclining in bed. Has been passing some flatus. Decrease abdominal distention. TPN and lipids. On clear liquids. I gave spoke to the patient and family the bedside the importance of being out of bed and working with therapy. Abdominal x-ray showing severe dilatation. February 14: Patient up in a recliner. States she's passed a small amount of flatus. DP and lipids. Clear liquids. Discussed Dr. Worthington. Plan for a rectal contrast enema tomorrow. Also discussed about possibility of using a rectal tube. February 15: Patient underwent a barium enema today. Showed dilated loops of bowel. No mechanical obstruction. Discussed with Dr. Worthington. Rectal tube will be tried. Patient again refusing to participate with therapy. February 16: Patient had a rectal tube placed yesterday. Legs some liquid stool and in a good gush of flatus was obtained. Abdomen more soft and flat in today. Repeat x-ray showed dilatation of small bowel loops. The reduction from prior exam. Patient remains on clear liquid diet. February 17: Putting out some liquid stool. Some abdominal distention. Repeat abdominal x-ray showing further increases ileus. Rectal tube was present. Patient has been made nothing by mouth. Discussed with Dr. Worthington. We will give a trial of neostigmine 5 mg or 5 minutes. Discusses pharmacy. And the nurse. February 18: Patient received neostigmine last night. Did get some abdominal cramping and some bradycardia. Belly relatively soft. Some distention. No pain. No nausea vomiting. February 19: We tried for a few minutes to put the rectal tube to low intermittent suction. Not much response. Patient was then given mag citrate. Patient put on about 300 mL of stool. After the 150 mL afterwards. Rectal tube has been in. We will keep the rectal tube out overnight and see how patient does with bowel movement. Also put the patient on full liquids. As abdomen has been rather soft. Repeat abdominal x-rays in the morning. X-rays also done this morning. February 20: Rectal tube was taken out last night to see how patient does overnight. Did not have a bowel movement. Abdomen soft. Some distention. X-ray showing some ileus. Still better than before. Patient refused rectal tube to be reinserted. We'll add lactulose 20 g daily. Continue full liquids February 21: Patient has refused rectal tube. Discussed with the patient. Finally agreed. Full liquid diet. No bowel movement. No abdominal pain. No nausea vomiting. Will SHAN Carrillo has shown no benefit. February 22: Patient's had rectal tube since yesterday. Minimal BM if any. No other changes. Liquid diet. Abdominal x-ray from today shows persistent distention of small and large bowel. February 23: Patient received magnesium citrate yesterday. Had a large bowel movement yesterday today. Continues on full liquid diet. TPN and lipids. Abdomen is softer. Patient still very reluctant to sit up in a chair or participate in therapy. Did stand up. When unable to take steps because of knee buckling. February 24: No bowel movement overnight. Abdomen distended. Soft. Nontender. Abdominal x-ray showing ileus with decreased stool. Remains on full liquids. TPN and lipids. Active Medications Acetaminophen (Acetaminophen Tab 325 Mg Tab) 650 mg PO Q6HR PRN PRN Reason: Fever and/ or Pain Last Admin: 02/22/23 22:36 Dose: 650 mg Albuterol/Ipratropium (Ipratropium-Albuterol 3 Ml Neb) 3 ml INHALATION RT-Q8H PRN PRN Reason: Wheezing Albuterol/Ipratropium (Ipratropium-Albuterol 3 Ml Neb) 3 ml INHALATION RT-TID [facility] Last Admin: 02/24/23 08:48 Dose: Not Given Gabapentin (Gabapentin 300 Mg Cap) 300 mg PO DAILY [facility] Last Admin: 02/24/23 09:24 Dose: 300 mg Heparin Sodium (Porcine) (Heparin Sodium,Porcine/Pf 5,000 Unit/0.5 Ml Syringe) 5,000 unit SQ Q8HR [facility] Last Admin: 02/24/23 09:23 Dose: 5,000 unit Lactated Ringer's (Lactated Ringers) 1,000 mls @ 75 mls/hr IV .[id number] [facility] Last Admin: 02/23/23 20:44 Dose: Not Given Fat Emulsion Intravenous 250 (ml/ IV Solution) 250 mls @ 21 mls/hr IV MoTh [facility] Last Admin: 02/22/23 17:12 Dose: 21 mls/hr Potassium Chloride 36 meq/Magnesium Sulfate 2 gm/Calcium Gluconate 2 gm/ Sodium Chloride 60 meq/ Amino Acids/Dextrose 1,057 mls @ 60 mls/hr IV .BY DURATION [facility] Stop: 02/24/23 22:00 Last Admin: 02/24/23 04:55 Dose: 60 mls/hr Parenteral Vitamin Supplement 10 ml/ Zinc/Copper/Manganese/Selenium 1 ml/ Potassium Chloride 36 meq/ Magnesium Sulfate 2 gm/ Calcium Gluconate 2 gm/ Sodium Chloride 60 meq/ Amino Acids/Dextrose 1,068 mls @ 60 mls/hr IV .BY DURATION [facility] Stop: 02/24/23 22:00 Last Admin: 02/23/23 10:28 Dose: 60 mls/hr Potassium Chloride 32 meq/Magnesium Sulfate 2 gm/Calcium Gluconate 2 gm/ Sodium Chloride 74 meq/ Amino Acids/Dextrose 1,058.5 mls @ 60 mls/hr IV .BY DURATION [facility] Parenteral Vitamin Supplement 10 ml/ Zinc/Copper/Manganese/Selenium 1 ml/ Potassium Chloride 32 meq/ Magnesium Sulfate 2 gm/ Calcium Gluconate 2 gm/ Sodium Chloride 74 meq/ Amino Acids/Dextrose 1,069.5 mls @ 60 mls/hr IV .BY DURATION [facility] Lactobacillus Acidoph/Bulgaricus (Lactobacillus Acidoph & Bulgar 1 Each Packet) 1 each PO DAILY [facility] Last Admin: 02/24/23 09:24 Dose: 1 each Lactulose (Lactulose 20 Gm/30 Ml Cup) 30 gm PO DAILY [facility] Last Admin: 02/24/23 09:24 Dose: 30 gm Levothyroxine Sodium (Levothyroxine 75 Mcg Tab) 75 mcg PO DAILY@0630 [facility] Last Admin: 02/24/23 06:08 Dose: 75 mcg Miscellaneous Information (Potassium Replacement Protocol 1 Each Misc) 1 each MISCELLANE DAILY PRN; Protocol PRN Reason: Per Protocol Miscellaneous Information (Magnesium Replacement Protocol 1 Each Misc) 1 each MISCELLANE DAILY PRN; Protocol PRN Reason: Per Protocol Multivitamins (Multivitamins, Thera 1 Each Tab) 1 each PO DAILY [facility] Last Admin: 02/24/23 09:24 Dose: 1 each Naloxone HCl (Naloxone 0.4 Mg/Ml 1 Ml Vial) 0.2 mg IV Q2M PRN PRN Reason: Opioid Reversal Ondansetron HCl (Ondansetron 4 Mg/2 Ml Vial) 4 mg IVP Q6HR PRN PRN Reason: Nausea And Vomiting Last Admin: 02/22/23 22:36 Dose: 4 mg Pantoprazole Sodium (Pantoprazole 40 Mg Tablet) 40 mg PO [id number] [facility] Last Admin: 02/24/23 06:08 Dose: 40 mg Pyridoxine HCl (Pyridoxine 50 Mg Tab) 100 mg PO DAILY [facility] Last Admin: 02/24/23 09:24 Dose: 100 mg Thiamine HCl (Thiamine 100 Mg Tab) 100 mg PO DAILY [facility] Last Admin: 02/24/23 09:24 Dose: 100 mg Past medical history to include: Hypothyroid, osteomyelitis, COPD, left colectomy with end colostomy Social history: Lives with her boyfriend. Smokes about half a pack a day since age 21. Does use a walker. Physical examination: VITAL SIGNS: 97.9, 83, 17, 1 53 x 82, 97% room air GENERAL:, Reclining in bed, comfortable EYES: Pupils equal. Conjunctiva normal. HEENT: External appearance of nose and ears normal, oral cavity dry mucous membranes NECK: JVD not raised; masses not palpable. HEART: First and second heart sounds are normal; no edema. LUNGS: Respiratory rate normal; decreased breath sounds. ABDOMEN: Soft, distended, nontender Liver spleen not palpable, no masses palpable. Hyperactive bowel sounds PSYCH: Alert and oriented x3; mood and affect anxious. MUSCULOSKELETAL:No Clubbing/cyanosis;muscles-grossly intact INVESTIGATIONS, reviewed in the clinical context: February 24: Potassium 4.5 creatinine 0.86 February 23: WBC 6.3 hemoglobin 9.3 potassium 4.2 creatinine 0.83 and magnesium 2.2 Barium enema done today showed no obstruction. Dilated loops of bowel both small and large Abdominal x-ray [813]: Severe ileus February 04: White count 5.3 hemoglobin 10.4 platelets 139 potassium 4 creatinine 0.80 Abdominal x-ray film personally reviewed by me: Ileus February 01: White count 8.3 hemoglobin 10.6 platelets 100 January 31: WBC 7.3 hemoglobin 8 platelets 103 121 TIBC 211% saturation 9.98 transferred 151 B12 516 folate-40 January 29: White count 8.8 hemoglobin 11.3 platelets 95 potassium 4.4 creatinine 0.94 Previous labs: Platelets 108 in October 2022, 103 in August 2022 Assessment and plan: -Reversal of colostomy. Right and left colectomy with end colostomy in September [address] Worthington Nothing by mouth. Follow with surgery. No flatus - postoperative ileus.: Slow to respond Rectal barium enema-showed no obstruction. Rectal tube. neostigmine 5 mg- did not respond to the same. Patient's times 2 receive magnesium citrate. good bowel movement response. -Acute postprocedure blood loss anemia, expected from surgery causing hypotension: Better Received 1 unit of blood -Postoperative hypotension.: Better lactated Ringer's. Received 1 unit of blood -GERD PPI -Acute medical debility from surgery.: Not improving PTOT. Patient refused therapy -Hypothyroid Levothyroxin -COPD in a current smoker DuoNeb -Chronic nicotine dependence, cigarette smoker Nicotine patch -Thrombocytopenia, improved -Anemia of chronic disease hemoglobin 11.3 Iron deficiency from blood loss. Rectal tube in place. Liquid diet. The pain lipids. Follow with surgery. Thank you Dr. Worthington
[2023-02-24 12:05] LABS: Glucose,Whole Blood 125 mg/dL (70-110)
[2023-02-24] MEDS: LACTATED RINGERS 1,000 ML IV SCH (12:23)
[2023-02-24 16:29] LABS: Glucose,Whole Blood 91 mg/dL (70-110)
[2023-02-25] MEDS: HEPARIN SODIUM,PORCINE/PF 5,000 UNIT/0.5 ML SYRINGE SQ SCH ×2 (00:31→08:33)
[2023-02-25] MEDS: LACTATED RINGERS 1,000 ML IV SCH ×2 (03:24→16:24)
[2023-02-25] MEDS: PANTOPRAZOLE 40 MG TABLET PO SCH (05:57)
[2023-02-25] MEDS: LEVOTHYROXINE 75 MCG TAB PO SCH (05:57)
[2023-02-25 06:03] LABS: Glucose,Whole Blood 112 mg/dL (70-110)
[2023-02-25] MEDS: LACTOBACILLUS ACIDOPH & BULGAR 1 EACH PACKET PO SCH (08:20)
[2023-02-25] MEDS: LACTULOSE 20 GM/30 ML CUP PO SCH (08:32)
[2023-02-25] MEDS: MULTIVITAMINS, THERA 1 EACH TAB PO SCH (08:33)
[2023-02-25] MEDS: GABAPENTIN 300 MG CAP PO SCH (08:33)
[2023-02-25] MEDS: THIAMINE 100 MG TAB PO SCH (08:33)
[2023-02-25] MEDS: PYRIDOXINE 50 MG TAB PO SCH (08:34)
[2023-02-25 08:57] LABS: Glucose,Whole Blood 102 mg/dL (70-110)
[2023-02-25] MEDS: IPRATROPIUM-ALBUTEROL 3 ML NEB INHALATION SCH ×2 (09:26→12:16)
[2023-02-25 09:43] LABS: African American GFR (CKD) >90 (>60 ml/min/1.73 sqM); Anion Gap 6 mmol/L; Blood Urea Nitrogen 24 mg/dL (7-17); Calcium 7.9 mg/dL (8.4-10.2); Carbon Dioxide 31 mmol/L (22-30); Chloride 100 mmol/L (98-107); Glucose 115 mg/dL (74-99); Magnesium 1.8 mg/dL (1.6-2.3); Non-African American GFR(CKD) 82 (>60 ml/min/1.73 sqM); Phosphorus 3.8 mg/dL (2.5-4.5); Potassium 4.2 mmol/L (3.5-5.1); Sodium 137 mmol/L (137-145)
[2023-02-25] MEDS: ACETAMINOPHEN TAB 325 MG TAB PO PRN ×2 (10:03→15:21)
[2023-02-25 11:25] LABS: Glucose,Whole Blood 121 mg/dL (70-110)
--- NOTE | 2023-02-25 11:55 | P.DS ---
Providers Date of admission: 01/29/23 07:09 Expected date of discharge: 02/25/23 Attending physician: Jj Worthington Consults: 01/29/23 16:21 Consult Physician Routine Consulting Provider: Cayden Green Consult Reason/Comments: medical management Do you want consulting provider notified?: Yes Primary care physician: [facility] Hospital Course: Discharge diagnosis 1. History of Colonic obstruction status post colostomy reversal 2. Postoperative ileus expected due to chronic medical condition 3. Atonic rectum Hospital course This is a 63-year-old female with a known history of a severe ileus of the right and left colon status post right colectomy, left colectomy with end colostomy on 09/11/2022. This admission she had reversal of the colostomy. She developed severe postoperative ileus. She had prolonged hospitalization requiring rectal tube due to her ileus and an tonic rectum. Eventually the rectal tube was able to be removed. Patient has been able to stool. She is tolerating full liquid diet. She denies any abdominal pain. She is afebrile. She is stable for discharge. She will continue a full liquid diet at discharge. Incision site clean dry and intact. Dried blood noted at the distal aspect of the mid incision. Please refer to chart for further details. Physician Gum Sprayer note has been reviewed by physician. Signing provider agrees with the documented findings, assessment, and plan of care. Patient Condition at Discharge: Stable Plan - Discharge Summary New Discharge Prescriptions: New Psyllium Husk 100% [Metamucil Packet] 6 gm PO BID #1 packet Continue Levothyroxine Sodium [Euthyrox] 75 mcg PO DAILY #30 tab Multivitamins, Thera [Multivitamin (formulary)] 1 tab PO DAILY #30 tablet Thiamine [Vitamin B-1] 100 mg PO DAILY #30 tablet Omeprazole [PriLOSEC] 20 mg PO DAILY Ipratropium-Albuterol Nebulize [Duoneb 0.5 mg-3 mg/3 ml Soln] 3 ml INHALATION TID Folic Acid 0.16 mg PO DAILY Pyridoxine HCl (Vitamin B6) [Vitamin B-6] 100 mg PO DAILY Cholecalciferol [Vitamin D3 (25 Mcg = 1000 Iu)] 25 mcg PO DAILY Lactobacillus Acidophilus [Acidophilus] 1 each PO DAILY HYDROcodone/APAP 5-325MG [[place] 5-325] 1 tab PO Q6HR PRN 3 Days #12 tab PRN Reason: Pain Calcium Carbonate/Vitamin D3 [Calcium 600 mg-Vit D3 5 mcg (200 unit)] 1 each PO DAILY Acetaminophen Tab [Tylenol] 325 mg PO Q6HR PRN PRN Reason: Pain Ipratropium-Albuterol Nebulize [Duoneb 0.5 mg-3 mg/3 ml Soln] 3 ml INHALATION Q8H PRN PRN Reason: Wheezing Gabapentin 300 mg PO DAILY #3 cap Discontinued Docusate [Colace] 100 mg PO BID No Action Neomycin Sulfate 1,000 mg PO TID metroNIDAZOLE [Flagyl] 1,000 mg PO TID Discharge Medication List Levothyroxine Sodium [Euthyrox] 75 mcg PO DAILY #30 tab 09/17/22 [Rx] Multivitamins, Thera [Multivitamin (formulary)] 1 tab PO DAILY #30 tablet 09/17/22 [Rx] Thiamine [Vitamin B-1] 100 mg PO DAILY #30 tablet 09/17/22 [Rx] Ipratropium-Albuterol Nebulize [Duoneb 0.5 mg-3 mg/3 ml Soln] 3 ml INHALATION TID 10/04/22 [History] Omeprazole [PriLOSEC] 20 mg PO DAILY 10/04/22 [History] Acetaminophen Tab [Tylenol] 325 mg PO Q6HR PRN 01/26/23 [History] Calcium Carbonate/Vitamin D3 [Calcium 600 mg-Vit D3 5 mcg (200 unit)] 1 each PO DAILY 01/26/23 [History] Cholecalciferol [Vitamin D3 (25 Mcg = 1000 Iu)] 25 mcg PO DAILY 01/26/23 [History] Folic Acid 0.16 mg PO DAILY 01/26/23 [History] Lactobacillus Acidophilus [Acidophilus] 1 each PO DAILY 01/26/23 [History] Pyridoxine HCl (Vitamin B6) [Vitamin B-6] 100 mg PO DAILY 01/26/23 [History] Ipratropium-Albuterol Nebulize [Duoneb 0.5 mg-3 mg/3 ml Soln] 3 ml INHALATION Q8H PRN 01/29/23 [History] Neomycin Sulfate 1,000 mg PO TID 01/29/23 [History] metroNIDAZOLE [Flagyl] 1,000 mg PO TID 01/29/23 [History] Gabapentin 300 mg PO DAILY #3 cap 02/25/23 [Rx] HYDROcodone/APAP 5-325MG [[place] 5-325] 1 tab PO Q6HR PRN 3 Days #12 tab 02/25/23 [Rx] Psyllium Husk 100% [Metamucil Packet] 6 gm PO BID #1 packet 02/25/23 [Rx] Follow up Appointment(s)/Referral(s): Aishwarya Veliz, [NON-STAFF] - As Needed Patient Instructions/Handouts: Colectomy Diet (DC), Open Colostomy Reversal (DC) Discharge Disposition: TRANSFER TO SNF/ECF
[2023-02-25 13:34] VITALS: BP 137/84; PULSE 81; RESP 15; TEMP 96.8
--- NOTE | 2023-02-25 16:56 | P.PN ---
Progress Note - Text Progress Note Date: 02/25/23 - Chief Complaint Takedown colostomy Hospital course: This is a 63-year-old patient, who had severe ileus of right and left: And underwent right and left colectomy with end colostomy by Dr. Worthington on 09/21/2022. Patient on January 29/yesterday underwent exploratory laboratory with takedown of colostomy and takedown of splenic flexure with partial colectomy and repair of incisional hernia and lysis of adhesions by Dr. Worthington. Laying in bed this morning has an epidural in place. Wound VAC in place. No nausea vomiting. A bit tired January 31: Patient has not passed any flatus or BM. Pain is controlled. Provena wound VAC in place. Some serosanguineous output. Reclining in bed. Epidural in place. Patient has dropped her hemoglobin to 8. Hypotensive. Despite IV fluids. We will transfuse unit of blood. February 01: Epidural discontinued. Provena discontinued. No flatus. Has been advanced to full liquids. Still rather weak. Hasn't been out of bed. PTOT on the case. Patient received a unit of blood yesterday for hypertension and decreased hemoglobin. February 2: In bed. Did not participate with physical therapist. No flatus. Abdomen distended. Patient did vomit earlier. Diet downgraded by surgery. We will do abdominal x-ray in the morning. February 3: No flatus. Abdomen still distended. Abdominal x-rays confirmed ileus. Patient made nothing by mouth. Reglan was added by surgery. Increase activity as tolerated. February 4: Patient thinks she may pass them flatus. Abdomen still distended. Nothing by mouth. Getting Flagyl. February 5: Patient refusing to participate in therapy. Will not do therapy until she eats. X-rays again showing ileus. Surgery ordered NG tube. Patient states she passed and little amount of flatus. Abdomen distended no nausea vomiting February 12: [facility] Patient remains nothing by mouth. In bed. Tired. Said passed a small amount of flatus. Getting IV TPN and lipids. Patient had been refusing therapy. Abdomen distended. February 13: Reclining in bed. Has been passing some flatus. Decrease abdominal distention. TPN and lipids. On clear liquids. I gave spoke to the patient and family the bedside the importance of being out of bed and working with therapy. Abdominal x-ray showing severe dilatation. February 14: Patient up in a recliner. States she's passed a small amount of flatus. DP and lipids. Clear liquids. Discussed Dr. Worthington. Plan for a rectal contrast enema tomorrow. Also discussed about possibility of using a rectal tube. February 15: Patient underwent a barium enema today. Showed dilated loops of bowel. No mechanical obstruction. Discussed with Dr. Worthington. Rectal tube will be tried. Patient again refusing to participate with therapy. February 16: Patient had a rectal tube placed yesterday. Legs some liquid stool and in a good gush of flatus was obtained. Abdomen more soft and flat in today. Repeat x-ray showed dilatation of small bowel loops. The reduction from prior exam. Patient remains on clear liquid diet. February 17: Putting out some liquid stool. Some abdominal distention. Repeat abdominal x-ray showing further increases ileus. Rectal tube was present. Patient has been made nothing by mouth. Discussed with Dr. Worthington. We will give a trial of neostigmine 5 mg or 5 minutes. Discusses pharmacy. And the nurse. February 18: Patient received neostigmine last night. Did get some abdominal cramping and some bradycardia. Belly relatively soft. Some distention. No pain. No nausea vomiting. February 19: We tried for a few minutes to put the rectal tube to low intermittent suction. Not much response. Patient was then given mag citrate. Patient put on about 300 mL of stool. After the 150 mL afterwards. Rectal tube has been in. We will keep the rectal tube out overnight and see how patient does with bowel movement. Also put the patient on full liquids. As abdomen has been rather soft. Repeat abdominal x-rays in the morning. X-rays also done this morning. February 20: Rectal tube was taken out last night to see how patient does overnight. Did not have a bowel movement. Abdomen soft. Some distention. X-ray showing some ileus. Still better than before. Patient refused rectal tube to be reinserted. We'll add lactulose 20 g daily. Continue full liquids February 21: Patient has refused rectal tube. Discussed with the patient. Finally agreed. Full liquid diet. No bowel movement. No abdominal pain. No nausea vomiting. Will SHAN Carrillo has shown no benefit. February 22: Patient's had rectal tube since yesterday. Minimal BM if any. No other changes. Liquid diet. Abdominal x-ray from today shows persistent distention of small and large bowel. February 23: Patient received magnesium citrate yesterday. Had a large bowel movement yesterday today. Continues on full liquid diet. TPN and lipids. Abdomen is softer. Patient still very reluctant to sit up in a chair or participate in therapy. Did stand up. When unable to take steps because of knee buckling. February 24: No bowel movement overnight. Abdomen distended. Soft. Nontender. Abdominal x-ray showing ileus with decreased stool. Remains on full liquids. TPN and lipids. February 25: Patient does not remember having a BM. Not sure. DP and lipids being discontinued by surgery. Patient be discharged to the [facility]. Active Medications Acetaminophen (Acetaminophen Tab 325 Mg Tab) 650 mg PO Q6HR PRN PRN Reason: Fever and/ or Pain Last Admin: 02/25/23 15:21 Dose: 650 mg Albuterol/Ipratropium (Ipratropium-Albuterol 3 Ml Neb) 3 ml INHALATION RT-Q8H PRN PRN Reason: Wheezing Albuterol/Ipratropium (Ipratropium-Albuterol 3 Ml Neb) 3 ml INHALATION RT-TID [facility] Last Admin: 02/25/23 12:16 Dose: Not Given Gabapentin (Gabapentin 300 Mg Cap) 300 mg PO DAILY [facility] Last Admin: 02/25/23 08:33 Dose: 300 mg Heparin Sodium (Porcine) (Heparin Sodium,Porcine/Pf 5,000 Unit/0.5 Ml Syringe) 5,000 unit SQ Q8HR [facility] Last Admin: 02/25/23 08:33 Dose: 5,000 unit Lactated Ringer's (Lactated Ringers) 1,000 mls @ 75 mls/hr IV .[id number] [facility] Last Admin: 02/25/23 16:24 Dose: Not Given Fat Emulsion Intravenous 250 (ml/ IV Solution) 250 mls @ 21 mls/hr IV MoTh [facility] Last Admin: 02/22/23 17:12 Dose: 21 mls/hr Potassium Chloride 32 meq/Magnesium Sulfate 2 gm/Calcium Gluconate 2 gm/ Sodium Chloride 74 meq/ Amino Acids/Dextrose 1,058.5 mls @ 60 mls/hr IV .BY DURATION [facility] Last Admin: 02/24/23 22:28 Dose: 60 mls/hr Parenteral Vitamin Supplement 10 ml/ Zinc/Copper/Manganese/Selenium 1 ml/ Potassium Chloride 32 meq/ Magnesium Sulfate 2 gm/ Calcium Gluconate 2 gm/ Sodium Chloride 74 meq/ Amino Acids/Dextrose 1,069.5 mls @ 60 mls/hr IV .BY DURATION [facility] Lactobacillus Acidoph/Bulgaricus (Lactobacillus Acidoph & Bulgar 1 Each Packet) 1 each PO DAILY [facility] Last Admin: 02/25/23 08:20 Dose: Not Given Lactulose (Lactulose 20 Gm/30 Ml Cup) 30 gm PO DAILY [facility] Last Admin: 02/25/23 08:32 Dose: 30 gm Levothyroxine Sodium (Levothyroxine 75 Mcg Tab) 75 mcg PO DAILY@0630 [facility] Last Admin: 02/25/23 05:57 Dose: 75 mcg Miscellaneous Information (Potassium Replacement Protocol 1 Each Misc) 1 each MISCELLANE DAILY PRN; Protocol PRN Reason: Per Protocol Miscellaneous Information (Magnesium Replacement Protocol 1 Each Misc) 1 each MISCELLANE DAILY PRN; Protocol PRN Reason: Per Protocol Multivitamins (Multivitamins, Thera 1 Each Tab) 1 each PO DAILY [facility] Last Admin: 02/25/23 08:33 Dose: 1 each Naloxone HCl (Naloxone 0.4 Mg/Ml 1 Ml Vial) 0.2 mg IV Q2M PRN PRN Reason: Opioid Reversal Ondansetron HCl (Ondansetron 4 Mg/2 Ml Vial) 4 mg IVP Q6HR PRN PRN Reason: Nausea And Vomiting Last Admin: 02/22/23 22:36 Dose: 4 mg Pantoprazole Sodium (Pantoprazole 40 Mg Tablet) 40 mg PO AC-BRKFST [facility] Last Admin: 02/25/23 05:57 Dose: 40 mg Pyridoxine HCl (Pyridoxine 50 Mg Tab) 100 mg PO DAILY [facility] Last Admin: 02/25/23 08:34 Dose: 100 mg Thiamine HCl (Thiamine 100 Mg Tab) 100 mg PO DAILY [facility] Last Admin: 02/25/23 08:33 Dose: 100 mg Past medical history to include: Hypothyroid, osteomyelitis, COPD, left colectomy with end colostomy Social history: Lives with her boyfriend. Smokes about half a pack a day since age 21. Does use a walker. Physical examination: VITAL SIGNS: 96.7, 82, 16, 1 3678, 95% room air GENERAL:, Reclining in bed, comfortable EYES: Pupils equal. Conjunctiva normal. HEENT: External appearance of nose and ears normal, oral cavity dry mucous membranes NECK: JVD not raised; masses not palpable. HEART: First and second heart sounds are normal; no edema. LUNGS: Respiratory rate normal; decreased breath sounds. ABDOMEN: Soft, less distended, nontender Liver spleen not palpable, no masses palpable. Hyperactive bowel sounds PSYCH: Alert and oriented x3; mood and affect anxious. MUSCULOSKELETAL:No Clubbing/cyanosis;muscles-grossly intact INVESTIGATIONS, reviewed in the clinical context: February 25: Potassium 4.2 creatinine 0.77 February 23: WBC 6.3 hemoglobin 9.3 potassium 4.2 creatinine 0.83 and magnesium 2.2 Barium enema done today showed no obstruction. Dilated loops of bowel both small and large Abdominal x-ray [813]: Severe ileus February 04: White count 5.3 hemoglobin 10.4 platelets 139 potassium 4 creatinine 0.80 Abdominal x-ray film personally reviewed by me: Ileus February 01: White count 8.3 hemoglobin 10.6 platelets 100 January 31: WBC 7.3 hemoglobin 8 platelets 103 121 TIBC 211% saturation 9.98 transferred 151 B12 516 folate-40 January 29: White count 8.8 hemoglobin 11.3 platelets 95 potassium 4.4 creatinine 0.94 Previous labs: Platelets 108 in October 2022, 103 in August 2022 Assessment and plan: -Reversal of colostomy. Right and left colectomy with end colostomy in September [address] Worthington Nothing by mouth. Follow with surgery. No flatus - postoperative ileus.: Slow to respond Rectal barium enema-showed no obstruction. Rectal tube. neostigmine 5 mg- did not respond to the same. Patient's times 2 receive magnesium citrate. good bowel movement response. -Acute postprocedure blood loss anemia, expected from surgery causing hypotension: Better Received 1 unit of blood -Postoperative hypotension.: Better lactated Ringer's. Received 1 unit of blood -GERD PPI -Acute medical debility from surgery.: Not improving PTOT. Patient refused therapy -Hypothyroid Levothyroxin -COPD in a current smoker DuoNeb -Chronic nicotine dependence, cigarette smoker Nicotine patch -Thrombocytopenia, improved -Anemia of chronic disease hemoglobin 11.3 Iron deficiency from blood loss. Patient being discharged to [facility] by surgery. Thank you Dr. Worthington
== END 2023-02-25 16:55 | DRG 231 ==
LOC: 2ORMAIN 07:09 → 4SSUR 13:55
PROVIDERS: ADMIT Surgery; ATTEND Surgery
PROC: 0WQF0ZZ Repair Abdominal Wall, Open Approach (ICD-10-PCS; 2023-01-29)
PROC: 0DBU0ZZ Excision of Omentum, Open Approach (ICD-10-PCS; 2023-01-29)
PROC: 00HU33Z Insertion of Infusion Device into Spinal Canal, Percutaneous Approach (ICD-10-PCS; 2023-01-29)
PROC: 3E0R3BZ Introduction of Anesthetic Agent into Spinal Canal, Percutaneous Approach (ICD-10-PCS; 2023-01-29)
PROC: 0DBN0ZZ Excision of Sigmoid Colon, Open Approach (ICD-10-PCS; principal; 2023-01-29 08:50)
PROC: 30233N1 Transfusion of Nonautologous Red Blood Cells into Peripheral Vein, Percutaneous Approach (ICD-10-PCS; 2023-01-31)
PROC: 02HV33Z Insertion of Infusion Device into Superior Vena Cava, Percutaneous Approach (ICD-10-PCS; 2023-02-04)
PROC: 3E0436Z Introduction of Nutritional Substance into Central Vein, Percutaneous Approach (ICD-10-PCS; 2023-02-04)
PROC: 0D9670Z Drainage of Stomach with Drainage Device, Via Natural or Artificial Opening (ICD-10-PCS; 2023-02-05)
DX: Z43.3 Encounter for attention to colostomy (principal); K56.50 Intestinal adhesions [bands], unspecified as to partial versus complete obstruction; E44.0 Moderate protein-calorie malnutrition; D69.3 Immune thrombocytopenic purpura; D63.8 Anemia in other chronic diseases classified elsewhere; K43.0 Incisional hernia with obstruction, without gangrene; K56.7 Ileus, unspecified; D62 Acute posthemorrhagic anemia; E03.9 Hypothyroidism, unspecified; J44.9 Chronic obstructive pulmonary disease, unspecified; I10 Essential (primary) hypertension; K59.89 Other specified functional intestinal disorders; F17.210 Nicotine dependence, cigarettes, uncomplicated; K21.9 Gastro-esophageal reflux disease without esophagitis; K43.2 Incisional hernia without obstruction or gangrene; I95.89 Other hypotension; M19.90 Unspecified osteoarthritis, unspecified site; R00.1 Bradycardia, unspecified; R53.81 Other malaise; E83.42 Hypomagnesemia; E87.6 Hypokalemia; Z53.20 Procedure and treatment not carried out because of patient's decision for unspecified reasons; Z68.20 Body mass index [BMI] 20.0-20.9, adult; Z90.49 Acquired absence of other specified parts of digestive tract; Z87.39 Personal history of other diseases of the musculoskeletal system and connective tissue; Z79.899 Other long term (current) drug therapy; Z86.711 Personal history of pulmonary embolism
CPT/HCPCS: 36573; 71045; 74018; 74019; 74270; 80048; 80051; 80053; 82040; 82330; 82565; 82607; 82728; 82746; 83540; 83550; 83735; 84100; 84132; 84478; 84520; 85025; 85027; 85610; 86850; 86900; 86901; 86920; 88304; 88305; 94760

== ENCOUNTER 2023-05-26 15:50 | Inpatient (IN) | payer OTHER ==
[2023-05-26] MEDS ORDERED: fentaNYL (PF) 50 MCG/ML 2 ML AMP IVP STA (15:56)
[2023-05-26] MEDS ORDERED: SODIUM CHLORIDE 0.9% 1,000 ML IV ONE ×2 (15:56→20:08)
--- NOTE | 2023-05-26 16:07 | ED ---
General Adult HPI - General Stated complaint: bowel obstruction Time Seen by Provider: 05/26/23 15:55 - History of Present Illness Initial comments: This is a 63-year-old female with a significant past medical history including multiple abdominal surgeries including multiple small bowel obstructions. The patient also had a reported history of previous colostomy that became septic and was reversed. This history was provided by EMS as the patient cannot provide any further history. The patient did state that she was in pain and that started several days ago but denied of any further details at this time. The patient was otherwise resting in bed holding her abdomen without any further acute distress. - Related Data Home Medications Medication Instructions Recorded Confirmed Ipratropium-Albuterol Nebulize 3 ml INHALATION RT-TID PRN 10/04/22 05/26/23 [Duoneb 0.5 mg-3 mg/3 ml Soln] Omeprazole [PriLOSEC] 20 mg PO DAILY 10/04/22 05/26/23 Acetaminophen Tab [Tylenol] 325 mg PO Q6HR PRN 01/26/23 05/26/23 Calcium Carbonate/Vitamin D3 1 tab PO DAILY 01/26/23 05/26/23 [Calcium 600 mg-Vit D3 5 mcg (200 unit)] Cholecalciferol [Vitamin D3 (25 25 mcg PO DAILY 01/26/23 05/26/23 Mcg = 1000 Iu)] Pyridoxine HCl (Vitamin B6) 100 mg PO DAILY 01/26/23 05/26/23 [Vitamin B-6] Docusate [Colace] 100 mg PO BID 05/26/23 05/26/23 Folic Acid 0.4 mg PO HS 05/26/23 05/26/23 Healthshake 1 dose PO TID 05/26/23 05/26/23 Magnesium Citrate [Citrate of 1.745 gm PO DAILY PRN 05/26/23 05/26/23 Magnesia] Multivitamins, Thera [Multivitamin 1 tab PO HS 05/26/23 05/26/23 (formulary)] Psyllium Husk 100% [Metamucil 6 gm PO DAILY 05/26/23 05/26/23 Packet] Previous Rx's Medication Instructions Recorded Levothyroxine Sodium [Euthyrox] 75 mcg PO DAILY #30 tab 09/17/22 HYDROcodone/APAP 5-325MG [[place] 1 tab PO Q6HR PRN 3 Days #12 tab 02/25/23 5-325] Allergies Allergy/AdvReac Type Severity Reaction Status Date / Time No Known Allergies Allergy Verified 05/26/23 17:49 Review of Systems ROS Statement: Those systems with pertinent positive or pertinent negative responses have been documented in the HPI. ROS Other: All systems not noted in ROS Statement are negative. Past Medical History Past Medical History: Cancer, COPD, GERD/Reflux, Osteoarthritis (OA), Pulmonary Embolus (PE), Thyroid Disorder Additional Past Medical History / Comment(s): CANCER APPENDIX, COLOSTOMY, HEART MURMUR., STATES PE 2017., CERVICAL STENOSIS WITH HERNIATED DISC., ABD WOUND DIHISENCE., RESIDES AT [facility]. History of Any Multi-Drug Resistant Organisms: MRSA Date of last positivie culture/infection: 11/24/22 MDRO Source:: ABD WOUND Past Surgical History: Section Additional Past Surgical History / Comment(s): RIGHT AND LEFT COLECTOMY WITH COLOSTOMY., COLONOSCOPY; ostomy reversal/hernia repair/colectomy (01/29/23). Past Anesthesia/Blood Transfusion Reactions: No Reported Reaction Past Psychological History: No Psychological Hx Reported Smoking Status: Current every day smoker Past Alcohol Use History: None Reported Additional Past Alcohol Use History / Comment(s): SMOKES 1/2 PPD, STARTED SMOKING AGE 21. Past Drug Use History: None Reported - Past Family History Mother History Unknown: Yes Family Medical History: No Reported History General Exam Limitations: altered mental status (ANOx2, reported at baseline per EMS) General appearance: alert, in no apparent distress Head exam: Present: atraumatic, normocephalic, normal inspection Eye exam: Present: normal appearance, PERRL Pupils: Present: normal accommodation ENT exam: Present: normal exam, normal oropharynx, mucous membranes moist Neck exam: Present: normal inspection, full ROM Respiratory exam: Present: normal lung sounds bilaterally Cardiovascular Exam: Present: regular rate, normal rhythm, normal heart sounds GI/Abdominal exam: Present: soft, distended, tenderness (TTP in all quadrants). Absent: guarding Extremities exam: Present: normal inspection, full ROM Back exam: Present: normal inspection, full ROM Neurological exam: Present: alert, oriented X3, CN II-XII intact Psychiatric exam: Present: normal affect, normal mood Skin exam: Present: warm, dry Course Vital Signs 05/26/23 05/26/23 16:08 18:05 Temperature 97.7 F 98.1 F Pulse Rate 83 86 Respiratory 18 16 Rate Blood Pressure 95/62 112/72 O2 Sat by Pulse 95 95 Oximetry Medical Decision Making - Medical Decision Making Was pt. sent in by a medical professional or institution (, NESHA, EXTENSION CLERK, urgent care, hospital, or snf...) When possible be specific @ -No Did you speak to anyone other than the patient for history (EMS, parent, family, police, friend...)? What history was obtained from this source @ -Yes, EMS was that the patient was reportedly distended with abdominal pain over the last 2 days. Did you review nursing and triage notes (agree or disagree)? Why? @ -I reviewed and agree with nursing and triage notes Were old charts reviewed (outside hosp., previous admission, EMS record, old EKG, old radiological studies, urgent care reports/EKG's, snf records)? Report findings @ -No old charts were reviewed Differential Diagnosis (chest pain, altered mental status, abdominal pain women, abdominal pain men, vaginal bleeding, weakness, fever, dyspnea, syncope, headache, dizziness, GI bleed, back pain, seizure, CVA, palpatations, mental health)? @ -Small bowel obstruction, colonic perforation, gastroenteritis, diverticulitis EKG interpreted by me (3pts min.). @ -None X-rays interpreted by me (1pt min.). @ -None done CT interpreted by me (1pt min.). @ -CT of the abdomen and pelvis with IV contrast was obtained and was in terpreted by myself showing significant findings including large pneumoperitoneum, large fecal bolus of the rectum. There was fecal debris within the redundant sigmoid colon. Consider volvulus within the differential. There was cholelithiasis and ascites noted. Basilar transitioned may be within the right lower quadrant. U/S interpreted by me (1pt. min.). @ -None done What testing was considered but not performed or refused? (CT, X-rays, U/S, labs)? Why? @ -None What meds were considered but not given or refused? Why? @ -None Did you discuss the management of the patient with other professionals (professionals i.e. , NESHA, EXTENSION CLERK, lab, RT, psych nurse, social secretary, manager relationship, teacher, civil preparedness officer, binder caser)? Give summary @ -Yes, surgeon on-call, Dr. Bell was contacted regarding the patient. She did recommend having the patient's initial surgeon, Dr. Manning contacted. He was contacted and stated that he was out of town and that Dr. Bell to proceed with treating the patient. Was smoking cessation discussed for >3mins.? @ -No Was critical care preformed (if so, how long)? @ -No Were there social determinants of health that impacted care today? How? (Homelessness, low income, unemployed, alcoholism, drug addiction, tr ansportation, low edu. Level, literacy, decrease access to med. care, [facility], rehab)? @ -No Was there de-escalation of care discussed even if they declined (Discuss DNR or withdrawal of care, Hospice)? DNR status @ -No What co-morbidities impacted this encounter? (DM, HTN, Smoking, COPD, CAD, Cancer, CVA, ARF, Chemo, Hep., AIDS, mental health diagnosis, sleep apnea, morbid obesity)? @ -Previous bowel resections status post colostomy that was reversed. Was patient admitted / discharged? Hospital course, mention meds given and route, prescriptions, significant lab abnormalities, going to OR and other pertinent info. @ -The patient was seen and evaluated emergency department. Physical exam, the patient was in moderate distress secondary to abdominal pain. Vital signs on admission were within normal limits. Workup was initiated and did show a white blood cell count of 2.5. Computed tomography scan was performed and had the findings above concerning for large free air. Surgeon on-call, Dr. Bell was contacted. She stated that she could take care of the patient however she wanted the patient's initial surgeon contacted. He was contacted and stated that Dr. Bell can proceed with treatment. The patient will be admitted to her service. The patient was admitted in stable condition. Undiagnosed new problem with uncertain prognosis? @ -No Drug Therapy requiring intensive monitoring for toxicity (Heparin, Nitro, Insulin, Cardizem)? @ -No Were any procedures done? @ -No Diagnosis/symptom? @ -Large pneumoperitoneum Acute, or Chronic, or Acute on Chronic? @ -Acute Uncomplicated (without systemic symptoms) or Complicated (systemic symptoms)? @ -Complicated Side effects of treatment? @ -No Exacerbation, Progression, or Severe Exacerbation? @ -No Poses a threat to life or bodily function? How? (Chest pain, USA, MS, pneumonia, PE, COPD, DKA, ARF, appy, cholecystitis, CVA, Diverticulitis, Homicidal, Suicidal, threat to staff... and all critical care pts) @ -Yes, continued pneumoperitoneum can lead to permanent damage, possible - Lab Data Result diagrams: 05/26/23 16:16 05/26/23 16:16 Lab Results 05/26/23 05/26/23 Range/Units 16:16 16:16 WBC 2.5 L (3.8-10.6) k/uL RBC 5.07 (3.80-5.40) m/uL Hgb 14.9 (11.4-16.0) gm/dL Hct 44.8 (34.0-46.0) % MCV 88.3 (80.0-100.0) fL MCH 29.3 (25.0-35.0) pg MCHC 33.2 (31.0-37.0) g/dL RDW 15.9 H (11.5-15.5) % Plt Count 156 (150-450) k/uL MPV 9.7 Neutrophils % (Manual) 42 % Band Neuts % (Manual) 28 % Lymphocytes % (Manual) 18 % Monocytes % (Manual) 5 % Eosinophils % (Manual) 1 % Metamyelocytes % 7 % Neutrophils # (Manual) 1.70 (1.3-7.7) k/uL Lymphocytes # (Manual) 0.45 L (1.0-4.8) k/uL Monocytes # (Manual) 0.13 (0-1.0) k/uL Eosinophils # (Manual) 0.03 (0-0.7) k/uL Metamyelocytes # (Man) 0.18 H (0) k/uL Nucleated RBCs 0 (0-0) /100 WBC Manual Slide Review Performed Toxic Vacuolation Present Sodium 133 L (137-145) mmol/L Potassium 4.4 (3.5-5.1) mmol/L Chloride 98 (98-107) mmol/L Carbon Dioxide 20 L (22-30) mmol/L Anion Gap 15 mmol/L BUN 43 H (7-17) mg/dL Creatinine 1.28 H (0.52-1.04) mg/dL Est GFR (CKD-EPI)AfAm 51 (>60 ml/min/1.73 sqM) Est GFR (CKD-EPI)NonAf 45 (>60 ml/min/1.73 sqM) Glucose 109 H (74-99) mg/dL Calcium 8.6 (8.4-10.2) mg/dL Magnesium 1.6 (1.6-2.3) mg/dL Total Bilirubin 1.3 (0.2-1.3) mg/dL AST 36 (14-36) U/L ALT 21 (4-34) U/L Alkaline Phosphatase 85 (38-126) U/L Total Protein 6.8 (6.3-8.2) g/dL Albumin 3.7 (3.5-5.0) g/dL Lipase 14 L (23-300) U/L Disposition Clinical Impression: Pneumoperitoneum, Fecal impaction Disposition: ADMITTED IP TO THIS [facility] Condition: Serious Is patient prescribed a controlled substance at d/c from ED?: No Referrals: Josue Engle DO [Primary Care Provider] - 1-2 days Time of Disposition: 18:00 Decision to Admit Reason: Admit from EC Decision Date: 05/26/23 Decision Time: 18:00
[2023-05-26 16:38] LABS: HCT 44.8 % (34.0-46.0); HGB 14.9 gm/dL (11.4-16.0); MCH 29.3 pg (25.0-35.0); MCHC 33.2 g/dL (31.0-37.0); MCV 88.3 fL (80.0-100.0); Mean Platelet Volume 9.7; Platelet Count 156 k/uL (150-450); RBC 5.07 m/uL (3.80-5.40); RDW 15.9 % (11.5-15.5); WBC 2.5 k/uL (3.8-10.6)
[2023-05-26 17:02] LABS: ALT 21 U/L (4-34); AST 36 U/L (14-36); African American GFR (CKD) 51 (>60 ml/min/1.73 sqM); Albumin 3.7 g/dL (3.5-5.0); Alkaline Phosphatase 85 U/L (38-126); Anion Gap 15 mmol/L; Blood Urea Nitrogen 43 mg/dL (7-17); Calcium 8.6 mg/dL (8.4-10.2); Carbon Dioxide 20 mmol/L (22-30); Chloride 98 mmol/L (98-107); Glucose 109 mg/dL (74-99); Lipase 14 U/L (23-300); Magnesium 1.6 mg/dL (1.6-2.3); Non-African American GFR(CKD) 45 (>60 ml/min/1.73 sqM); Potassium 4.4 mmol/L (3.5-5.1); Sodium 133 mmol/L (137-145); Total Bilirubin 1.3 mg/dL (0.2-1.3); Total Protein 6.8 g/dL (6.3-8.2)
[2023-05-26 17:31] LABS: Band Neutrophils % 28 %; Eosinophils # (M) 0.03 k/uL (0-0.7); Lymphocytes # (M) 0.45 k/uL (1.0-4.8); Metamyelocytes # (M) 0.18 k/uL (0); Metamyelocytes % 7 %; Monocytes # (M) 0.13 k/uL (0-1.0); Neutrophils % (M) 42 %; Nucleated Red Blood Cells 0 /100 WBC (0-0); Total Cells Counted 200
[2023-05-26 17:32] LABS: Toxic Vacuolation Present
[2023-05-26] MEDS ORDERED: ONDANSETRON 4 MG/2 ML VIAL IVP STA (18:09)
--- NOTE | 2023-05-26 18:12 | CT ---
EXAMINATION TYPE: CT abdomen pelvis w con DATE OF EXAM: 05/26/2023 COMPARISON: 12/17/2022 INDICATION: Acute abdominal pain. Hx of SBO. DLP: 731.4 mGycm, Automated exposure control for dose reduction was used. CONTRAST: 80 ml mL of Isovue 300. Study performed without Oral Contrast TECHNIQUE: Axial images were obtained from above the diaphragm to the pubic rami in the axial plane a t 5 mm thick sections. Reconstructed images are reviewed on the computer in the coronal plane. FINDINGS: Limited CT sections are obtained the lung bases. The lung bases are clear. CT ABDOMEN: There is a large volume of free air within the peritoneum. Ascites is present. Liver: Normal Spleen: Normal Pancreas: Normal Adrenal glands: The adrenal glands are normal. Gallbladder: Cholelithiasis. Kidneys: No masses are evident. No hydronephrosis is present. No cysts are present. 1 Aorta: Vascular calcification is within the aorta. Inferior vena cava: Normal. CT PELVIS: Loops of bowel within the abdomen and pelvis are normal. A zone of transition may be within the right lower quadrant. No suspicious etiology at this location. Example image series 202 image 44. There is a large fecal bolus at the level of the rectum. Correlate for fecal impaction. There may be some severino nosis at possible anastomosis within the rectosigmoid region within the pelvis. Appendix: Not visualized Urinary bladder: Decompressed with limits evaluation. Genitourinary structures: The uterus is not clearly identified. There may be the uterus is between th an the right hemipelvis. Adnexa appear clear Osseous structures: No suspicious lytic or sclerotic lesions. Report was called cased discussed the emergency room physician Dr. Shelton by Dr. Salguero by telephone at the time of interpretation 1805 hours 05/26/2023 IMPRESSIONS: 1. Large pneumoperitoneum. 2. Large fecal bolus of the rectum. Fecal debris is within the redundant sigmoid colon. Consider volv ulus within the differential. 3. Cholelithiasis. 4. Ascites.
[2023-05-26] MEDS ORDERED: ONDANSETRON 4 MG/2 ML VIAL IVP PRN (19:24)
[2023-05-26] MEDS ORDERED: NALOXONE 0.4 MG/ML 1 ML VIAL IV PRN (19:24)
[2023-05-26] MEDS ORDERED: HYDROmorphone 0.5 MG/0.5 ML SYRINGE IVP STA (19:46)
[2023-05-26] MEDS: SODIUM CHLORIDE 0.9% 1,000 ML IV SCH (19:58)
[2023-05-26 20:11] LABS: Appearance,Urine Clear (Clear); Bilirubin,Urine 1+ (Negative); Blood,Urine Negative (Negative); Glucose,Urine (UA) Negative (Negative); Ketones,Urine Negative (Negative); Leukocyte Esterase,Urine Negative (Negative); Nitrite,Urine Negative (Negative); PH, Urine 5.5 (5.0-8.0); Protein,Urine Trace (Negative); Specific Gravity,Urine 1.029 (1.001-1.035)
[2023-05-26 20:12] LABS: Color,Urine Yellow
[2023-05-26] MEDS: HEPARIN SODIUM,PORCINE 5,000 UNIT/ML 1 ML VIAL SQ SCH (20:21)
[2023-05-26] MEDS: metroNIDAZOLE-NS PMX 500 MG in SALINE 1 100ML.BAG IVPB SCH (23:16)
[2023-05-26] MEDS: HYDROmorphone 1 MG/ML 1 ML SYRINGE IVP PRN (23:17)
[2023-05-27] MEDS ORDERED: SODIUM CHLORIDE 0.9% 500 ML 500 ML IV ONE ×3 (00:12→06:47)
[2023-05-27] MEDS: ACETAMINOPHEN IV (For NPO) 1,000 MG in EMPTY BAG 1 BAG IVPB SCH ×4 (00:36→17:33)
[2023-05-27] MEDS: metroNIDAZOLE-NS PMX 500 MG in SALINE 1 100ML.BAG IVPB SCH ×5 (00:53→23:36)
[2023-05-27] MEDS: PIPERACILLIN-TAZOBACTAM 3.375 GM in SODIUM CHLORIDE 0.9% 100 ML IVPB SCH ×4 (01:10→23:36)
[2023-05-27] MEDS: HYDROmorphone 1 MG/ML 1 ML SYRINGE IVP PRN (04:16)
--- NOTE | 2023-05-27 08:03 | P.GSHP ---
History of Present Illness H&P Date: 05/26/23 CHIEF COMPLAINT: Abdominal pain HISTORY OF PRESENT ILLNESS: The patient is a 63 year old female with complicated history of chronic constipation. She is status post colostomy creation for chronic fecal impaction, 9 months ago. She is status post colostomy reversal, 4 months ago. Patient presents with 3 day history of generalized abdominal pain and abdominal distention. She still has chronic constipation. She presented to the emergency room with diagnostic studies consistent with dilated colon, free air. PAST MEDICAL HISTORY: See list and reviewed PAST SURGICAL HISTORY: See list and reviewed MEDICATIONS: See list and reviewed ALLERGIES: See list and reviewed SOCIAL HISTORY: See list and reviewed FAMILY HISTORY: See list and reviewed REVIEW OF ORGAN SYSTEMS: CONSTITUTIONAL: No fevers or chills. Has weight loss over 20 pounds in 9 months. EYES: Denies any trouble with vision. Wears glasses. HEENT: No difficulties with hearing. No nosebleeds. No difficulty swallowing. RESPIRATORY: Denies pneumonia. Denies any troubles with breathing or dyspnea on exertion. CARDIOVASCULAR: Denies any chest pain, palpitations, or recent heart attacks. GASTROINTESTINAL: Denies fatty food intolerance. Denies change in bowel habits and gas bloat. Has gastroesophageal reflux disease. GENITOURINARY: Denies any blood in urine or increased urinary frequency. NEUROLOGICAL: Denies any numbness or tingling along the distal extremities. No seizure disorders or headaches. MUSCULOSKELETAL: Has back pain, stiffness or joint arthritis. SKIN: No current skin cancer. No rash. PSYCHIATRIC: Denies current depression or suicidal thoughts. ENDOCRINE: Has thyroid disorders. Denies any blood sugar glucose intolerance. HEME/LYMPHATIC: Denies any lumps and bumps around the neck. No recent deep venous thrombosis. ALLERGY/IMMUNOLOGY: No immunoglobulin therapy. No immune deficiencies. BREAST: Denies current breast lumps, pain or nipple discharge. PHYSICAL EXAM: VITALS: Reviewed CONSTITUTIONAL: Well developed and in no acute distress. EYES: Conjuctivae without sclera icterus. Extraocular movements grossly intact. HEAD, EARS, NOSE, THROAT: Moist buccal mucosa. Head is atraumatic, normocephalic. Hears conversational speech. No nasal drainage. NECK: Supple. No JV distention. No thyroidomegaly. RESPIRATORY: Non-labored respirations and equal bilateral excursions. No gross wheezes. CARDIOVASCULAR: Palpable 2+ radial pulses. ABDOMEN: Abdomen distended, diffusely tender. LYMPH: No neck lymphadenopathy. MUSCULOSKELETAL: No clubbing cyanosis or edema SKIN: Warm and well perfused with good skin turgor. NEUROLOGIC: Cranial nerves II through XII grossly intact. No focal or lateralizing signs. PSYCH: Flat affect. Alert and oriented to person. CLINCAL LABS: Reviewed. WBC low at 2.9, leukopenia. Lactate elevated IMAGING: Independently reviewed. CT of the abdomen and pelvis reviewed demonstrates dilated cecum features of cecal volvulus. Free air identified. RADIOLOGY: Report reviewed. Findings consistent with pneumoperitoneum. A large fecal bolus of the rectum. RECORDS: previous old records reviewed with previous fecal disimpaction, colectomy, colostomy reversal, colonoscopy between September 2022 to January 24 ECHO: Reviewed from September 2022 demonstrates ejection fraction over 50%, normal left ventricular function. EKG: Incomplete right bundle branch block. Borderline EKG. ASSESSMENT: 1. Abdominal pain 2. Pneumoperitoneum 3. Chronic constipation 4. Lactic acidosis 5. Abnormal EKG PLAN: 1. IV fluid hydration for lactic acidosis 2. Surgical intervention described for colectomy and ostomy 3. IV antibiotics Zosyn, Flagyl 4. Nothing by mouth status 5. DVT prophylaxis 6. Patient is elevated risk for complications due to pre-existing condition ADVANCE DIRECTIVE: Past Medical History Past Medical History: Cancer, COPD, GERD/Reflux, Osteoarthritis (OA), Pulmonary Embolus (PE), Thyroid Disorder Additional Past Medical History / Comment(s): CANCER APPENDIX, COLOSTOMY, HEART MURMUR., STATES PE 2017., CERVICAL STENOSIS WITH HERNIATED DISC., ABD WOUND DIHISENCE., RESIDES AT [facility]. History of Any Multi-Drug Resistant Organisms: MRSA Date of last positivie culture/infection: 11/24/22 MDRO Source:: ABD WOUND Past Surgical History: Section Additional Past Surgical History / Comment(s): RIGHT AND LEFT COLECTOMY WITH COLOSTOMY., COLONOSCOPY; ostomy reversal/hernia repair/colectomy (01/29/23). Past Anesthesia/Blood Transfusion Reactions: No Reported Reaction Past Psychological History: No Psychological Hx Reported Smoking Status: Current every day smoker Past Alcohol Use History: None Reported Additional Past Alcohol Use History / Comment(s): SMOKES 1/2 PPD, STARTED SMOKING AGE 21. Past Drug Use History: None Reported - Past Family History Mother History Unknown: Yes Family Medical History: No Reported History Medications and Allergies Home Medications Medication Instructions Recorded Confirmed Type Levothyroxine Sodium [Euthyrox] 75 mcg PO DAILY #30 tab 09/17/22 05/26/23 Rx Ipratropium-Albuterol Nebulize 3 ml INHALATION RT-TID PRN 10/04/22 05/26/23 History [Duoneb 0.5 mg-3 mg/3 ml Soln] Omeprazole [PriLOSEC] 20 mg PO DAILY 10/04/22 05/26/23 History Acetaminophen Tab [Tylenol] 325 mg PO Q6HR PRN 01/26/23 05/26/23 History Calcium Carbonate/Vitamin D3 1 tab PO DAILY 01/26/23 05/26/23 History [Calcium 600 mg-Vit D3 5 mcg (200 unit)] Cholecalciferol [Vitamin D3 (25 25 mcg PO DAILY 01/26/23 05/26/23 History Mcg = 1000 Iu)] Pyridoxine HCl (Vitamin B6) 100 mg PO DAILY 01/26/23 05/26/23 History [Vitamin B-6] HYDROcodone/APAP 5-325MG [Hamilton 1 tab PO Q6HR PRN 3 Days #12 tab 02/25/23 05/26/23 Rx 5-325] Docusate [Colace] 100 mg PO BID 05/26/23 05/26/23 History Folic Acid 0.4 mg PO HS 05/26/23 05/26/23 History Healthshake 1 dose PO TID 05/26/23 05/26/23 History Magnesium Citrate [Citrate of 1.745 gm PO DAILY PRN 05/26/23 05/26/23 History Magnesia] Multivitamins, Thera [Multivitamin 1 tab PO HS 05/26/23 05/26/23 History (formulary)] Psyllium Husk 100% [Metamucil 6 gm PO DAILY 05/26/23 05/26/23 History Packet] Allergies Allergy/AdvReac Type Severity Reaction Status Date / Time No Known Allergies Allergy Verified 05/26/23 17:49 Surgical - Exam Vital Signs Temp Pulse Resp BP Pulse Ox 97.7 F 83 18 95/62 95 05/26/23 16:08 05/26/23 16:08 05/26/23 16:08 05/26/23 16:08 05/26/23 16:08 Results - Labs 05/26/23 16:16 05/26/23 16:16 Abnormal Lab Results - Last 24 Hours (Table) 05/26/23 05/26/23 05/26/23 Range/Units 16:16 16:16 19:28 WBC 2.5 L (3.8-10.6) k/uL RDW 15.9 H (11.5-15.5) % Lymphocytes # (Manual) 0.45 L (1.0-4.8) k/uL Metamyelocytes # (Man) 0.18 H (0) k/uL Sodium 133 L (137-145) mmol/L Carbon Dioxide 20 L (22-30) mmol/L BUN 43 H (7-17) mg/dL Creatinine 1.28 H (0.52-1.04) mg/dL Glucose 109 H (74-99) mg/dL Plasma Lactic Acid José Miguel 2.4 H* (0.7-2.0) mmol/L Lipase 14 L (23-300) U/L Diabetes panel 05/26/23 Range/Units 16:16 Sodium 133 L (137-145) mmol/L Potassium 4.4 (3.5-5.1) mmol/L Chloride 98 (98-107) mmol/L Carbon Dioxide 20 L (22-30) mmol/L BUN 43 H (7-17) mg/dL Creatinine 1.28 H (0.52-1.04) mg/dL Glucose 109 H (74-99) mg/dL Calcium 8.6 (8.4-10.2) mg/dL AST 36 (14-36) U/L ALT 21 (4-34) U/L Alkaline Phosphatase 85 (38-126) U/L Total Protein 6.8 (6.3-8.2) g/dL Albumin 3.7 (3.5-5.0) g/dL Calcium panel 05/26/23 Range/Units 16:16 Calcium 8.6 (8.4-10.2) mg/dL Albumin 3.7 (3.5-5.0) g/dL Pituitary panel 05/26/23 Range/Units 16:16 Sodium 133 L (137-145) mmol/L Potassium 4.4 (3.5-5.1) mmol/L Chloride 98 (98-107) mmol/L Carbon Dioxide 20 L (22-30) mmol/L BUN 43 H (7-17) mg/dL Creatinine 1.28 H (0.52-1.04) mg/dL Glucose 109 H (74-99) mg/dL Calcium 8.6 (8.4-10.2) mg/dL Adrenal panel 05/26/23 Range/Units 16:16 Sodium 133 L (137-145) mmol/L Potassium 4.4 (3.5-5.1) mmol/L Chloride 98 (98-107) mmol/L Carbon Dioxide 20 L (22-30) mmol/L BUN 43 H (7-17) mg/dL Creatinine 1.28 H (0.52-1.04) mg/dL Glucose 109 H (74-99) mg/dL Calcium 8.6 (8.4-10.2) mg/dL Total Bilirubin 1.3 (0.2-1.3) mg/dL AST 36 (14-36) U/L ALT 21 (4-34) U/L Alkaline Phosphatase 85 (38-126) U/L Total Protein 6.8 (6.3-8.2) g/dL Albumin 3.7 (3.5-5.0) g/dL
[2023-05-27] MEDS: SODIUM CHLORIDE 0.9% 1,000 ML IV SCH ×3 (08:56→12:12)
[2023-05-27] MEDS: HEPARIN SODIUM,PORCINE 5,000 UNIT/ML 1 ML VIAL SQ SCH ×2 (09:00→23:34)
[2023-05-27 09:22] LABS: Glucose,Whole Blood 80 mg/dL (70-110)
--- NOTE | 2023-05-27 09:52 | XR ---
EXAMINATION TYPE: XR chest 1V portable DATE OF EXAM: 05/27/2023 COMPARISON: NONE HISTORY: central line placement TECHNIQUE: Single frontal view of the chest is obtained. FINDINGS: There is a left basilar subsegmental infiltrate. Atherosclerotic change of the aorta. Hear t size normal. No overt failure. Diffuse osteopenia with bilateral AC joint arthropathy. A left-sided internal jugular central line with the tip overlying the SVC. NG tube and PICC line have been remove d.. IMPRESSION: 1. Stable left lower lobe infiltrate. 2. Left-sided IJ central line tip overlying SVC and no sizable pneumothorax.
--- NOTE | 2023-05-27 09:55 | P.PN ---
Subjective Progress Note Date: 05/27/23 CHIEF COMPLAINT: Abdominal pain HISTORY OF PRESENT ILLNESS: The patient is a 63-year-old female presents with abdominal pain. She is more confused this morning. Lactic acid levels persistently elevated. Patient reports abdominal pain. ROS: No reports of nausea and vomiting. No bowel movements. No fevers or chills. No new chest pain. PHYSICAL EXAM: VITAL SIGNS: Reviewed CONSTITUTIONAL: Well developed and in no acute distress. EYES: Conjuctivae without sclera icterus. Extraocular movements grossly intact. HEAD, EARS, NOSE, THROAT: Moist buccal mucosa. Head is atraumatic, normocephal ic. Hears conversational speech. No nasal drainage.Edentulous. RESPIRATORY: Non-labored respirations and equal bilateral excursions. CARDIOVASCULAR: Palpable 2+ radial pulses. ABDOMEN: Diffusely tender. Distended. MUSCULOSKELETAL: No gross deformity of the lower extremities noted. No club jennifer. No cyanosis. SKIN: Good skin turgor. Well perfused. NEUROLOGIC: Cranial nerves II through XII grossly intact. No focal or lateralizing signs. PSYCH: Appropriate affect. Alert and oriented to person, place and time. CLINICAL LABS: Reviewed. CBC pending. Lactic acid elevated. ASSESSMENT: 1. Pneumoperitoneum. 2. Sepsis PLAN: 1. She has persistent lactic acidosis. Continued IV fluids. 2. Clinical status has changed with change in mental status, progressive sepsis. Emergency exploratory laparotomy and ostomy deemed as a life-saving event. 3. Type and screen 4. Emergency placement of central line and hemodynamic monitoring per anesthesia Objective - Vital Signs Vital signs: Vital Signs Temp 97 F L 05/27/23 08:57 Pulse 84 05/27/23 08:57 Resp 20 05/27/23 08:00 BP 99/60 05/27/23 08:57 Pulse Ox 99 05/27/23 08:57 FiO2 Intake & Output 05/26/23 05/27/23 05/27/23 18:59 06:59 18:59 Intake Total 0 Output Total 200 Balance -200 Weight 55.338 kg 55.338 kg Intake: Oral 0 Output: Urine 200 Other: Voiding Method External Catheter External Catheter - Labs CBC & Chem 7: 05/26/23 16:16 05/26/23 16:16 Labs: Abnormal Lab Results - Last 24 Hours (Table) 05/26/23 05/26/23 05/26/23 Range/Units 16:16 16:16 16:16 WBC 2.5 L (3.8-10.6) k/uL RDW 15.9 H (11.5-15.5) % Lymphocytes # (Manual) 0.45 L (1.0-4.8) k/uL Metamyelocytes # (Man) 0.18 H (0) k/uL Sodium 133 L (137-145) mmol/L Carbon Dioxide 20 L (22-30) mmol/L BUN 43 H (7-17) mg/dL Creatinine 1.28 H (0.52-1.04) mg/dL Glucose 109 H (74-99) mg/dL Plasma Lactic Acid José Miguel (0.7-2.0) mmol/L Lipase 14 L (23-300) U/L Urine Protein Trace H (Negative) Urine Bilirubin 1+ H (Negative) 05/26/23 05/26/23 05/27/23 Range/Units 19:28 22:39 01:25 WBC (3.8-10.6) k/uL RDW (11.5-15.5) % Lymphocytes # (Manual) (1.0-4.8) k/uL Metamyelocytes # (Man) (0) k/uL Sodium (137-145) mmol/L Carbon Dioxide (22-30) mmol/L BUN (7-17) mg/dL Creatinine (0.52-1.04) mg/dL Glucose (74-99) mg/dL Plasma Lactic Acid José Miguel 2.4 H* 3.9 H* 2.5 H* (0.7-2.0) mmol/L Lipase (23-300) U/L Urine Protein (Negative) Urine Bilirubin (Negative) 05/27/23 Range/Units 04:57 WBC (3.8-10.6) k/uL RDW (11.5-15.5) % Lymphocytes # (Manual) (1.0-4.8) k/uL Metamyelocytes # (Man) (0) k/uL Sodium (137-145) mmol/L Carbon Dioxide (22-30) mmol/L BUN (7-17) mg/dL Creatinine (0.52-1.04) mg/dL Glucose (74-99) mg/dL Plasma Lactic Acid José Miguel 2.7 H* (0.7-2.0) mmol/L Lipase (23-300) U/L Urine Protein (Negative) Urine Bilirubin (Negative)
--- NOTE | 2023-05-27 10:01 | P.PN ---
Progress Note - Text Progress Note Date: 05/27/23 Anticipated postop ICU management due to emergency surgery, comorbidity and high-risk nature of operation. Travel Coordinator and ICU team notified
[2023-05-27] MEDS ORDERED: CALCIUM GLUCONATE IN NACL 2 GM/100 ML IVPB ONE (10:34)
[2023-05-27] MEDS ORDERED: INDOCYANINE GREEN 25 MG VIAL IV ONE (10:34)
[2023-05-27] MEDS ORDERED: ETOMIDATE 2 MG/ML 10 ML VIAL ONE (10:34)
[2023-05-27] MEDS ORDERED: SODIUM BICARB 8.4% 50 ML SYR (1 MEQ/ML) ONE (10:34)
[2023-05-27] MEDS ORDERED: ALBUMIN HUMAN 5% (25gm) 500 ML VIAL IVPB ONE (10:34)
[2023-05-27] MEDS ORDERED: ROCURONIUM 10 MG/ML (5 ML VIAL) IV ONE (10:34)
[2023-05-27] MEDS ORDERED: PHENYLEPHRINE-0.9% NACL SYG 1,000 MCG/10 ML SYRINGE ONE (10:34)
--- NOTE | 2023-05-27 10:42 | P.ANPRN ---
Procedure Note - Anesthesia - Invasive Line Left Arterial Line Time Out Performed: Yes Date of Procedure: 05/27/23 Time of Procedure: 10:10 Location of Patient: PreOp Preparation: Sterile Prep, Sterile Dressing Arterial Line Location: Briachial (left) Ultrasound Used: Yes Purpose - Visualization and Identification of Vasculature: Yes Needle Guage: 20g Image Stored and Saved: Yes Narrative: Central line placement per sterile protocol utilized. attempt x4
[2023-05-27] MEDS ORDERED: LACTATED RINGERS 1,000 ML IV ONE ×3 (11:00→14:15)
[2023-05-27 13:16] LABS: Anisocytosis Slight; HCT 34.6 % (34.0-46.0); MCH 29.8 pg (25.0-35.0); MCV 90.1 fL (80.0-100.0); Mean Platelet Volume 10.2; Platelet Count 189 k/uL (150-450); RBC 3.84 m/uL (3.80-5.40); RDW 16.3 % (11.5-15.5); WBC 3.2 k/uL (3.8-10.6)
[2023-05-27 13:18] LABS: HGB 11.4 gm/dL (11.4-16.0)
[2023-05-27 13:23] LABS: ALT 21 U/L (4-34); AST 39 U/L (14-36); African American GFR (CKD) 34 (>60 ml/min/1.73 sqM); Albumin 2.6 g/dL (3.5-5.0); Albumin/Globulin Ratio 1.2; Alkaline Phosphatase 48 U/L (38-126); Anion Gap 14 mmol/L; Blood Urea Nitrogen 45 mg/dL (7-17); Carbon Dioxide 16 mmol/L (22-30); Chloride 109 mmol/L (98-107); Globulin 2.2 g/dL; Glucose 99 mg/dL (74-99); Non-African American GFR(CKD) 30 (>60 ml/min/1.73 sqM); Potassium 4.2 mmol/L (3.5-5.1); Sodium 139 mmol/L (137-145); Total Bilirubin 0.6 mg/dL (0.2-1.3); Total Protein 4.8 g/dL (6.3-8.2)
[2023-05-27 13:26] LABS: Calcium 6.3 mg/dL (8.4-10.2)
[2023-05-27] MEDS ORDERED: CALCIUM GLUCONATE IN NACL 2 GM in SALINE 1 100ML.BAG IVPB ONE ×2 (14:15→22:27)
[2023-05-27 15:24] LABS: Glucose,Whole Blood 82 mg/dL (70-110)
[2023-05-27] MEDS ORDERED: NOREPINEPHRINE 4 MG in SODIUM CHLORIDE 0.9% 250 ML IV SCH (15:45)
[2023-05-27 16:10] LABS: ABG Base Excess -13.9 mmol/L; ABG HCO3 16 mmol/L (21-25); ABG Oxygen Saturation 99.1 % (94-97); ABG PCO2 48 mmHg (35-45); ABG PO2 >400 mmHg (83-108); ABG TCO2 17 mmol/L (19-24); Allen Test Performed? Yes
[2023-05-27 16:16] LABS: ABG PH 7.12 (7.35-7.45)
--- NOTE | 2023-05-27 16:17 | XR ---
EXAMINATION TYPE: XR chest 1V DATE OF EXAM: 05/27/2023 4:03 PM COMPARISON: Chest radiographs from 05/27/2023 TECHNIQUE: XR chest 1V Frontal view of the chest. CLINICAL INDICATION:Female, 63 years old with history of evaluate ETT and NGT placement please; FINDINGS: Lungs/Pleura: There is flattening of the diaphragm with increased lucency of the lungs. No evidence o f pneumothorax, pleural effusion or focal consolidation. Pulmonary vascularity: Unremarkable. Heart/mediastinum: Cardiomediastinal silhouette is unremarkable. Musculoskeletal: No acute osseous pathology. Other findings: Surgical staple projecting over the upper abdomen. Lines/Tubes: Endotracheal tube with distal tip 2.3 cm above the ankit. Nasogastric tube with its distal tip and side-port projecting under the diaphragm. Left internal jugular central venous catheter with distal tip at the cavoatrial junction. IMPRESSION: 1. Support line and tubes in appropriate position. 2. Surgical elida project over the upper spine.
[2023-05-27] MEDS ORDERED: SODIUM CHLORIDE 0.9% 2,000 ML IV ONE ×2 (17:09→20:08)
[2023-05-27] MEDS: NOREPINEPHRINE 32 MG in SODIUM CHLORIDE 0.9% 218 ML IV SCH (17:29)
[2023-05-27] MEDS: DEXTROSE 5% IN WATER 1,000 ML with SODIUM BICARB (1 MEQ/ML) 150 ML IV SCH (17:29)
--- NOTE | 2023-05-27 19:04 | P.CNPUL ---
History of Present Illness Consult date: 05/27/23 Chief complaint: pneumoperitoneum History of present illness: This is a 63-year-old female patient is currently being seen in the intensive care unit following abdominal surgery. The patient presented to the hospital because of abdominal pain and surgical consultation was obtained as the patient was found to have pneumoperitoneum. The patient had a CAT scan of the abdomen and pelvis that was done 05/26/2023 and the patient was found to have large pneumoperitoneum, large fecal bolus in the rectum. Fecal material was also seen in the sigmoid colon. There was evidence of cholelithiasis and ascites. Based on those findings, the patient was taken to the operating room today and the patient was given an LAD, subtotal colectomy, partial proctectomy and and ileostomy and open fecal decompression drainage of fecal peritonitis and left al so also oophprectomy and salpingectomy. Postop, the patient was brought into the intensive care unit. She has already received a total of 5 L of IV fluids. Most recent BP is 81/50. The patient is also on pressors and norepinephrine is running at 0.25 mcg/kg/m. The patient has improved in her urine output which is producing approximately 40 mL an hour. She is fully sedated on propofol which i s running at 50 mcg/kg/m. She is, comfortable and symptoms of the mechanical ventilator. I reviewed the initial blood gas that showed a pH of 7.12 with a pCO2 of 48 and a pO2 of more than 400. Subsequently, the patient was placed on assist-control mode at the rate of 26, tidal volume of 400 and FiO2 has been weaned down to 40% and she is currently on a PEEP of 5. The chest x-ray that was done following her abdominal surgery showed adequate positioning of 82. There is no evidence of any acute abnormalities. She has a left IJ triple-lumen catheter in place. The patient had evidence of renal failure, likely acute due to BUN of 47 and a creatinine of 1.78. She also has a mild anion gap metabolic acidosis. The lactic acid level was 2.7. Calcium level was low at 6.3. Serum albumin was 2.6 with a total protein of 4.8. The white cell cause of 3.2 with a hemoglobin of 11.4. She has a NG tube in place. Output from the NG is minimal are brown. Her white suppositive 3.2 with a hemoglobin of 11.4. She is currently covered with IV Zosyn and Flagyl. She was ordered started on a bicarb infusion. Note that the patient has had multiple abdominal surgeries in the past. She has undergone a previous right and left colectomy with end colostomy in September 2022 and subsequent reversal of the colostomy. She has COPD, hypothyroidism and she is a chronic smoker. The patient has had previous episodes of small bowel obstruction and large bowel obstruction. She suffers from chronic constipation. She is status post colectomy and colostomy for chronic thickened impaction approximately 9 months ago. She underwent subsequent reversal approximately 4 months ago but colostomy. Review of Systems ROS unobtainable: due to endotracheal tube Past Medical History Past Medical History: Cancer, COPD, GERD/Reflux, Osteoarthritis (OA), Pulmonary Embolus (PE), Thyroid Disorder Additional Past Medical History / Comment(s): CANCER APPENDIX, COLOSTOMY, HEART MURMUR., STATES PE 2017., CERVICAL STENOSIS WITH HERNIATED DISC., ABD WOUND DIHISENCE., RESIDES AT [facility]. History of Any Multi-Drug Resistant Organisms: MRSA Date of last positivie culture/infection: 11/24/22 MDRO Source:: ABD WOUND Past Surgical History: Section Additional Past Surgical History / Comment(s): RIGHT AND LEFT COLECTOMY WITH COLOSTOMY., COLONOSCOPY; ostomy reversal/hernia repair/colectomy (01/29/23). Past Anesthesia/Blood Transfusion Reactions: No Reported Reaction Past Psychological History: No Psychological Hx Reported Smoking Status: Current every day smoker Past Alcohol Use History: None Reported Additional Past Alcohol Use History / Comment(s): SMOKES 1/2 PPD, STARTED SMOKING AGE 21. Past Drug Use History: None Reported - Past Family History Mother History Unknown: Yes Family Medical History: No Reported History Medications and Allergies Home Medications Medication Instructions Recorded Confirmed Type Levothyroxine Sodium [Euthyrox] 75 mcg PO DAILY #30 tab 09/17/22 05/26/23 Rx Ipratropium-Albuterol Nebulize 3 ml INHALATION RT-TID PRN 10/04/22 05/26/23 History [Duoneb 0.5 mg-3 mg/3 ml Soln] Omeprazole [PriLOSEC] 20 mg PO DAILY 10/04/22 05/26/23 History Acetaminophen Tab [Tylenol] 325 mg PO Q6HR PRN 01/26/23 05/26/23 History Calcium Carbonate/Vitamin D3 1 tab PO DAILY 01/26/23 05/26/23 History [Calcium 600 mg-Vit D3 5 mcg (200 unit)] Cholecalciferol [Vitamin D3 (25 25 mcg PO DAILY 01/26/23 05/26/23 History Mcg = 1000 Iu)] Pyridoxine HCl (Vitamin B6) 100 mg PO DAILY 01/26/23 05/26/23 History [Vitamin B-6] HYDROcodone/APAP 5-325MG [Milton 1 tab PO Q6HR PRN 3 Days #12 tab 02/25/23 05/26/23 Rx 5-325] Docusate [Colace] 100 mg PO BID 05/26/23 05/26/23 History Folic Acid 0.4 mg PO HS 05/26/23 05/26/23 History Healthshake 1 dose PO TID 05/26/23 05/26/23 History Magnesium Citrate [Citrate of 1.745 gm PO DAILY PRN 05/26/23 05/26/23 History Magnesia] Multivitamins, Thera [Multivitamin 1 tab PO HS 05/26/23 05/26/23 History (formulary)] Psyllium Husk 100% [Metamucil 6 gm PO DAILY 05/26/23 05/26/23 History Packet] Allergies Allergy/AdvReac Type Severity Reaction Status Date / Time No Known Allergies Allergy Verified 05/26/23 17:49 Physical Exam Vitals: Vital Signs Temp Pulse Pulse Pulse Resp BP BP 05/27/23 17:00 88 6 L 05/27/23 16:20 05/27/23 16:00 97.5 F L 97 99 16 05/27/23 15:50 05/27/23 15:20 05/27/23 10:28 84 05/27/23 08:57 97 F L 84 99/60 05/27/23 08:00 97.4 F L 86 20 78/59 05/27/23 04:15 97/65 05/27/23 03:08 89/64 05/27/23 02:47 97.3 F L 83 18 94/65 05/26/23 21:51 97.9 F 86 18 131/83 05/26/23 20:00 90 23 110/80 05/26/23 19:21 97.6 F 85 16 91/61 05/26/23 19:00 85/58 Pulse Ox FiO2 05/27/23 17:00 98 40 05/27/23 16:20 40 05/27/23 16:00 99 100 05/27/23 15:50 100 05/27/23 15:20 100 05/27/23 10:28 98 05/27/23 08:57 99 05/27/23 08:00 91 L 05/27/23 04:15 05/27/23 03:08 05/27/23 02:47 93 L 05/26/23 21:51 93 L 05/26/23 20:00 94 L 05/26/23 19:21 94 L 05/26/23 19:00 93 L Intake and Output 05/27/23 05/27/23 05/27/23 06:59 14:59 22:59 Intake Total 0 4500 5526 Output Total 200 150 180 Balance -200 4350 5346 Intake: IV 4500 26 0.9 NS 26 Intake, IV Titration 5500 Amount Dextrose 5% in Water 1, 150 000 ml @ 150 mls/hr IV . Q7H40M MAREK with Sodium Bicarb (1 Meq/ml) 150 ml Rx#:[id number] Piperacillin-Tazobactam 3 100 .375 gm In Sodium Chloride 0.9% 100 ml @ 25 mls/hr IVPB Q8HR [facility] Rx# :[id number] Sodium Chloride 0.9% 1, 150 000 ml @ 75 mls/hr IV . [id number] [facility] Rx#:[id number] Sodium Chloride 0.9% 500 4000 ml 500 ml @ 999 mls/hr IV .Q31M ONE Rx#:[id number] Sodium Chloride 0.9% 500 1000 ml 500 ml @ 999 mls/hr IV .Q31M ONE Rx#:[id number] metroNIDAZOLE-NS PMX 500 100 mg In Saline 1 100ml.bag @ 100 mls/hr IVPB Q6H [facility] Rx#:[id number] Oral 0 Output: Drainage 90 Left Lower 90 Urine 200 100 90 Estimated Blood Loss 50 Other: Voiding Method External Catheter Indwelling Catheter External Catheter Weight 55.338 kg ABP, PAP, CO, CI - Last 8 Hours Arterial Blood Pressure 92/60 Arterial Blood Pressure 111/61 frail and currently fully sedated on propofol. Orogastric and orotracheal tube are both in place. Head exam was generally normal. There was no scleral icterus or corneal arcus. Mucous membranes were moist. Neck was supple and without jugular venous distension, thyromegaly, or carotid bruits. Carotids were easily palpable bilaterally. There was no adenopathy. The patient has an NG tube and a triple-lumen catheter in her left IJ. Lungs were clear to auscultation and percussion, and with normal diaphragmatic excursion. No wheezes or rales were noted. Cardiac exam revealed the PMI to be normally situated and sized. The rhythm was regular and no extrasystoles were noted during several minutes of auscultation. The first and second heart sounds were normal and physiologic splitting of the second heart sound was noted. There were no murmurs, rubs, clicks, or gallops. Examination of the abdomen shows a mid abdominal incision with a wound VAC. The patient is a PABLO drain in her left lower quadrant. The patient was given a ileostomy on the right and the tissue is viable at this point in time. No output. Bowel sounds are absent. No direct distention. No direct tenderness. No rebound tenderness. No guarding. Examination of the extremities revealed easily palpable radial, femoral and peda l pulses. There was no cyanosis, clubbing or edema., The patient has a left femoral arterial line and she has also Otero catheter in place. Neurologically, the patient is sedated. Results - Laboratory Findings CBC and BMP: 05/27/23 12:45 05/27/23 12:45 ABG ABG pH 7.12 (7.35-7.45) L* 05/27/23 16:07 ABG pCO2 48 mmHg (35-45) H 05/27/23 16:07 ABG pO2 >400 mmHg (83-108) H 05/27/23 16:07 ABG O2 Saturation 99.1 % (94-97) H 05/27/23 16:07 Abnormal lab findings: Abnormal Labs 05/26/23 05/26/23 05/26/23 16:16 16:16 16:16 WBC 2.5 L RDW 15.9 H Lymphocytes # (Manual) 0.45 L Metamyelocytes # (Man) 0.18 H ABG pH ABG pCO2 ABG pO2 ABG HCO3 ABG Total CO2 ABG O2 Saturation Sodium 133 L Chloride Carbon Dioxide 20 L BUN 43 H Creatinine 1.28 H Glucose 109 H Plasma Lactic Acid José Miguel Calcium AST Total Protein Albumin Lipase 14 L Urine Protein Trace H Urine Bilirubin 1+ H 05/26/23 05/26/23 05/27/23 19:28 22:39 01:25 WBC RDW Lymphocytes # (Manual) Metamyelocytes # (Man) ABG pH ABG pCO2 ABG pO2 ABG HCO3 ABG Total CO2 ABG O2 Saturation Sodium Chloride Carbon Dioxide BUN Creatinine Glucose Plasma Lactic Acid José Miguel 2.4 H* 3.9 H* 2.5 H* Calcium AST Total Protein Albumin Lipase Urine Protein Urine Bilirubin 05/27/23 05/27/23 05/27/23 04:57 12:45 12:45 WBC 3.2 L RDW 16.3 H Lymphocytes # (Manual) Metamyelocytes # (Man) ABG pH ABG pCO2 ABG pO2 ABG HCO3 ABG Total CO2 ABG O2 Saturation Sodium Chloride 109 H Carbon Dioxide 16 L BUN 45 H Creatinine 1.78 H Glucose Plasma Lactic Acid José Miguel 2.7 H* Calcium 6.3 L* AST 39 H Total Protein 4.8 L Albumin 2.6 L Lipase Urine Protein Urine Bilirubin 05/27/23 16:07 WBC RDW Lymphocytes # (Manual) Metamyelocytes # (Man) ABG pH 7.12 L* ABG pCO2 48 H ABG pO2 >400 H ABG HCO3 16 L ABG Total CO2 17 L ABG O2 Saturation 99.1 H Sodium Chloride Carbon Dioxide BUN Creatinine Glucose Plasma Lactic Acid José Miguel Calcium AST Total Protein Albumin Lipase Urine Protein Urine Bilirubin - Diagnostic Findings Chest x-ray: image reviewed Assessment and Plan Plan: acute pneumoperitoneum. The patient is post exploratory laparotomyAnd the patient is currently postop day #0. The patient underwent extensive subtotal colectomy, partial proctectomy, and ileostomy, drainage of the fecal peritonitis and and open fecal be compaction and left oophorectomy and salpingectomy, The patient is a PABLO drain in the left lower quadrant and the patient has an ileostomy at this point Fecal peritonitis with secondary sepsis secondary to above History of chronic constipation with previous right and left colectomy and colostomy with subsequent reversal Acute hypotension, likely secondary to abdominal sepsis, currently on a combination of fluids and pressors and antibiotics. Acute kidney injury secondary to above Mild lactic acidosis COPD/chronic smoker Acute respiratory failure, hypoxic and hypercapnic in nature. The patient was kept intubated on a mechanical ventilator following her surgery and her respiratory failure is further contributed by her abdominal sepsis and abdominal surgery. Chronic constipation Previous history of appendiceal carcinoma, resected Remote history of pulmonary embolism on no anticoagulants and this occurred back in 2017. History of cervical C3 stenosis with degenerative disc disease Osteoarthritis Chronic debility and the patient is a jail resident Plan Give the patient sedated for now and propofol will be continued. We'll titrate the propofol for sedation and the patient is heavily sedated this point in time. Continue ventilator support and necessary ventilator changes were done Obtain a follow-up blood gas Chest x-ray was reviewed Patient has also been given a total of 5 L of IV fluids. We'll give her 2 additional doses of IV albumin 5%, 12.5 g each Continue pressors and the patient is currently on norepinephrine Monitor hemodynamics and blood pressure Continue Zosyn and Flagyl Monitor the output from the PABLO drain Calcium levels has been replaced Compression devices to lower extremities regarding DVT prophylaxis IV Protonix Subcu heparin Bronchodilators Keep the patient nothing by mouth for now We'll continue to follow. Condition is critical. Time with Patient: Greater than 30
[2023-05-27] MEDS: ALBUMIN HUMAN 25% 50 ML in EMPTY BAG 1 BAG IVPB SCH ×2 (20:45→20:51)
[2023-05-27 21:18] LABS: Anisocytosis Slight; HCT 33.4 % (34.0-46.0); HGB 10.6 gm/dL (11.4-16.0); Hypochromasia Slight; MCH 28.9 pg (25.0-35.0); MCHC 31.8 g/dL (31.0-37.0); Mean Platelet Volume 10.3; Platelet Count 167 k/uL (150-450); RBC 3.67 m/uL (3.80-5.40); RDW 16.5 % (11.5-15.5); WBC 2.8 k/uL (3.8-10.6)
[2023-05-27 21:48] LABS: ALT 31 U/L (4-34); AST 74 U/L (14-36); African American GFR (CKD) 40 (>60 ml/min/1.73 sqM); Albumin/Globulin Ratio 1.1; Alkaline Phosphatase 35 U/L (38-126); Anion Gap 14 mmol/L; Blood Urea Nitrogen 40 mg/dL (7-17); Carbon Dioxide 11 mmol/L (22-30); Chloride 114 mmol/L (98-107); Globulin 1.8 g/dL; Glucose 125 mg/dL (74-99); Non-African American GFR(CKD) 35 (>60 ml/min/1.73 sqM); Potassium 3.6 mmol/L (3.5-5.1); Sodium 139 mmol/L (137-145); Total Bilirubin 0.4 mg/dL (0.2-1.3); Total Protein 3.8 g/dL (6.3-8.2)
[2023-05-27 21:53] LABS: Calcium 5.6 mg/dL (8.4-10.2)
[2023-05-27] MEDS ORDERED: SODIUM BICARB 8.4% 50 ML SYR (1 MEQ/ML) IV STA (22:26)
[2023-05-27 23:16] LABS: Anisocytosis (M) Present; Band Neutrophils % 36 %; Metamyelocytes % 9 %; Neutrophils % (M) 31 %; Nucleated Red Blood Cells 0 /100 WBC (0-0); Polychromasia Present; Total Cells Counted 100
[2023-05-27 23:17] LABS: Crenated RBC Present; Ovalocytes Present
[2023-05-27 23:31] LABS: Eosinophils # (M) 0.05 k/uL (0-0.7)
[2023-05-27 23:33] LABS: Metamyelocytes # (M) 0.25 k/uL (0); Monocytes # (M) 0.25 k/uL (0-1.0)
[2023-05-27] MEDS: CHLORHEXIDINE GLUCONATE 15 ML CUP MUCOUS MEM SCH (23:34)
[2023-05-27] MEDS: VASOPRESSIN 60 UNIT in SODIUM CHLORIDE 0.9% 150 ML IV SCH (23:35)
[2023-05-27] MEDS ORDERED: Potassium Replacement Protocol 1 EACH MISC MISCELLANE PRN (23:37)
[2023-05-27] MEDS: IPRATROPIUM-ALBUTEROL 3 ML NEB INHALATION SCH (23:49)
[2023-05-28] MEDS: HYDROmorphone 1 MG/ML 1 ML SYRINGE IVP PRN (00:03)
[2023-05-28] MEDS: DEXTROSE 5% IN WATER 1,000 ML with SODIUM BICARB (1 MEQ/ML) 150 ML IV SCH ×4 (01:42→23:31)
[2023-05-28] MEDS: POTASSIUM CHLORIDE 10 MEQ in WATER FOR INJECTION 1 100ML.BAG IVPB SCH ×2 (01:45→02:56)
[2023-05-28] MEDS: IPRATROPIUM-ALBUTEROL 3 ML NEB INHALATION SCH ×6 (03:59→23:58)
[2023-05-28] MEDS: metroNIDAZOLE-NS PMX 500 MG in SALINE 1 100ML.BAG IVPB SCH ×4 (04:35→23:20)
[2023-05-28 05:12] LABS: African American GFR (CKD) 37 (>60 ml/min/1.73 sqM); Anion Gap 12 mmol/L; Blood Urea Nitrogen 40 mg/dL (7-17); Carbon Dioxide 17 mmol/L (22-30); Chloride 110 mmol/L (98-107); Glucose 163 mg/dL (74-99); Magnesium 1.3 mg/dL (1.6-2.3); Non-African American GFR(CKD) 32 (>60 ml/min/1.73 sqM); Potassium 4.5 mmol/L (3.5-5.1); Sodium 139 mmol/L (137-145)
[2023-05-28 05:15] LABS: Anisocytosis Slight; HCT 32.7 % (34.0-46.0); HGB 10.6 gm/dL (11.4-16.0); MCH 29.1 pg (25.0-35.0); MCHC 32.3 g/dL (31.0-37.0); MCV 90.1 fL (80.0-100.0); Mean Platelet Volume 10.1; Platelet Count 161 k/uL (150-450); RBC 3.63 m/uL (3.80-5.40); RDW 16.5 % (11.5-15.5); WBC 4.4 k/uL (3.8-10.6)
[2023-05-28 05:25] LABS: Calcium 5.9 mg/dL (8.4-10.2)
[2023-05-28] MEDS ORDERED: Magnesium Replacement Protocol 1 EACH MISC MISCELLANE PRN (05:32)
[2023-05-28] MEDS ORDERED: Phosphorus Replacement Protoco 1 EACH MISC MISCELLANE PRN (05:32)
[2023-05-28] MEDS ORDERED: Potassium Replacement Protocol 1 EACH MISC MISCELLANE PRN (05:32)
--- NOTE | 2023-05-28 06:20 | P.OP ---
Date of Procedure: 05/27/23 Description of Procedure: SURGEON: AMDIE BRAVO MD INTRA-OPERATIVE MACHINE GUN MECHANIC: Dr. Sharma PREOPERATIVE DIAGNOSES: 1. Perforated viscus with pneumoperitoneum 2. Volvulus 3. Fecal impaction 4. Chronic constipation 5. History of colostomy reversal 6. Gastroesophageal reflux disease 7. Hypothyroidism 8. Chronic obstructive pulmonary disease 9. History of pulmonary embolism 10. Tobacco abuse disorder 11. History of appendiceal cancer 12. Sepsis 13. Lactic acidosis 14. Altered mental status POSTOPERATIVE DIAGNOSES: 1. Perforated colorectal anastomosis due to colorectal stenosis 2. Bowel ischemia 3. Fecal impaction 4. Chronic constipation 5. History of colostomy reversal 6. Gastroesophageal reflux disease 7. Hypothyroidism 8. Chronic obstructive pulmonary disease 9. History of pulmonary embolism 10. Tobacco abuse disorder 11. 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 Fecal peritonitis 15. Pelvic abscess 16. Sepsis with septic shock 17. Adhesive band OPERATION: 1. Exploratory laparotomy 2. Subtotal colectomy with partial proctectomy 3. Drainage of pelvic abscess/fecal peritonitis, 200-mL 4. Abdominal lavage 6-L normal saline 5. End ileostomy 6. Open fecal disimpaction, rectum, 600-mL 7. Placement of round #19 garfield rodriguez drain 8. Placement of incisional wound vac, 20-cm, PREVENA 9. Left salpingo-oophorectomy (see separate operative report) ANESTHESIA: General ESTIMATED BLOOD LOSS: 50mL. SPECIMENS REMOVED: 1. Subtotal colectomy 2. Partial proctectomy 3. Aerobic and anerobic cultures, pelvic abscess 4. Left fallopian tube and ovary 5. Adhesive band COMPLICATIONS: None. Condition: critical Disposition: ICU Operative Findings: 1. Proximal perforation at colorectal anastomosis due to moderate to severe colorectal stenosis 2. Gross diffuse fecal peritonitis over 200-mL evacuated from pelvis 3. Large rectal impaction over 600-mL disimpacted via open incision and spoon through rectum 4. Diffuse colonic dilation with bowel ischemia resected 5. Small bowel ischemia to proximal jejunum checked using indocyanine green and I-SPY laparoscope 6. Pre-existing infarct of left ovary and fallopian tube with uterine serosal ischemia requiring interoperative consultation to anglesmith helper, Dr. Sharma 7. Chika-hepatic and pelvic fecal abscesses drained INDICATIONS: The patient is a 63-year-old female with pre-existing chronic constipation, colostomy reversal, appendiceal cancer who presents with abdominal distention and pain. Diagnostic studies are consistent with pneumoperitoneum. Chika-operative optimization was performed with fluid resuscitation and antibiotics. Due to septic shock and altered mental status changes informed consent was waived for emergency surgical intervention including placement of lines for hemodynamic monitoring. DESCRIPTION: Patient was brought to the operating room. Preoperative medications including Zosyn was infused. The patient was placed in supine position whereby general induction was performed. Abdomen had been prepped and draped in the standard sterile fashion with placement of nasogastric tube and Otero catheter. Ioban draping was also placed to minimize any contamination to the skin. Next, using #10 blade, the abdomen was entered along the midline whereby an incision was made just above the umbilicus down to the pubis. The abdomen was inspected whereby the small bowel was unremarkable. The mesentery was also unremarkable. Intra-abdominal pelvic abscess localized was found and drained. Separately, the liver surface was palpated and unremarkable. No peritoneal studding was identified. Next, Bookwalter retractor was placed. The descending colon and sigmoid colon was mobilized along the medial and lateral attachments with care to avoid any injury to the ureters along the usual anatomical landmarks. Carefully the sigmoid colon was identified and mobilized. The sigmoid colon was moderately redundant with perforation along the intermesenteric border of the mid sigmoid colon which was densely adherent to the left pelvis. Lysis of adhesions was performed using Enseal. Previous omental adhesions to the right lower quadrant was similarly removed using Enseal. The sigmoid colon was mobilized along the mesentery where a window was made along the mesentery and the colon was divided such that the descending colon was prepared for maturation of a colostomy. The colon was divided proximally and distally of the perforation using Covidien Endo MARJ black elida. The specimen was passed off. Hemostasis was checked with electro Bovie cautery including Enseal. The abdomen was copiously irrigated with 3 L of normal saline solution. A round #19 drain was placed after tagging the rectal stump using 2-0 Prolene. Next, attention was brought to the delivering and creating of the descending colostomy. A point along the abdominal wall and rectus muscle was selected for the colostomy. Augusto was used to elevate the skin and Bovie cautery was taken across in tangential manner to create the skin defect of approximately quarter-size. The fat of the skin was mobilized using a small rich. The rectus muscle was identified and scored with a cruciate scoring of electro- Bovie cautery. Next, using a muscle-splitting technique with a hemostat, the peritoneum was entered. The peritoneum was widened such that 2 fingerbreadths could easily pass for delivering and evaginating the descending portion of the colon through the skin. The abdominal cavity was copiously irrigated as described until completely clear. Round number #19 Dominki drain was entered along the right lower abdomen and exited through the skin. The drain was placed along the pelvis as all irrigation fluid was accounted for. Next, the PABLO drain was tacked along the skin using a 2-0 nylon. The midline incision was closed using double-stranded 0 PDS. Next, the subcutaneous tissue was copiously irrigated with normal saline and hydrogen peroxide. For the rest of the incision, stainless steel skin elida were applied. The midline incision was covered using universal PREVENA wound VAC and attention was brought to maturation of the colostomy. The staple edge was divided and removed. Next quadrant sutures at 12 o'clock, 3 o'clock, 6 o'clock, and 9 o'clock position was made using serosa, mucosal and dermal bites using 2-0 Vicryl. Interrupted 3-0 Vicryl was placed in between all quadrants sutures to completely mature the ostomy. Hemostasis was checked. A Coloplast was then placed. At the end of the procedure, needle, sponge, and instrument count had been verified correct by corrosion technician. The patient's family was updated on level of care.
[2023-05-28] MEDS: MAGNESIUM SULFATE-D5W PMX 1 GM in DEXTROSE/WATER 1 100ML.BAG IVPB SCH ×4 (06:50→13:15)
[2023-05-28 07:05] LABS: ABG Base Excess -7.1 mmol/L; ABG HCO3 19 mmol/L (21-25); ABG PCO2 36 mmHg (35-45); ABG PH 7.32 (7.35-7.45); ABG PO2 120 mmHg (83-108); ABG TCO2 20 mmol/L (19-24); Allen Test Performed? Yes
[2023-05-28] MEDS ORDERED: PANTOPRAZOLE 40 MG TABLET PO SCH (07:30)
[2023-05-28] MEDS: PIPERACILLIN-TAZOBACTAM 3.375 GM in SODIUM CHLORIDE 0.9% 100 ML IVPB SCH ×2 (08:23→16:09)
--- NOTE | 2023-05-28 09:19 | XR ---
EXAMINATION TYPE: XR chest 1V portable DATE OF EXAM: 05/28/2023 COMPARISON: 05/27/2023 HISTORY: Abnormal x-ray TECHNIQUE: Single frontal view of the chest is obtained. FINDINGS: ET and NG tube have normal appearance. Central line stable. Left lower lobe infiltrate sma ll effusion. Minimal subsegmental changes right lung base with tiny effusion. Underlying COPD. Heart size normal. Mild atherosclerotic change aorta. Diffuse osteopenia and bilateral AC joint arthropathy . IMPRESSION: 1. Bilateral lower lobe consolidation and small effusion.
[2023-05-28 09:36] LABS: Band Neutrophils % 17 %; Eosinophils # (M) 0.04 k/uL (0-0.7); Lymphocytes # (M) 0.31 k/uL (1.0-4.8); Metamyelocytes # (M) 0.26 k/uL (0); Metamyelocytes % 6 %; Monocytes # (M) 0.09 k/uL (0-1.0); Neutrophils % (M) 68 %; Nucleated Red Blood Cells 0 /100 WBC (0-0); Total Cells Counted 200
[2023-05-28 09:37] LABS: Dohle Bodies Present; Toxic Granulation Present
--- NOTE | 2023-05-28 10:04 | P.PN ---
Subjective Progress Note Date: 05/28/23 This is a 63-year-old female patient is currently being seen in the intensive care unit following abdominal surgery. The patient presented to the hospital because of abdominal pain and surgical consultation was obtained as the patient was found to have pneumoperitoneum. The patient had a CAT scan of the abdomen and pelvis that was done 05/26/2023 and the patient was found to have large pneumoperitoneum, large fecal bolus in the rectum. Fecal material was also seen in the sigmoid colon. There was evidence of cholelithiasis and ascites. Based on those findings, the patient was taken to the operating room today and the patient was given an LAD, subtotal colectomy, partial proctectomy and and il eostomy and open fecal decompression drainage of fecal peritonitis and left also also oophprectomy and salpingectomy. Postop, the patient was brought into the intensive care unit. She has already received a total of 5 L of IV fluids. Most recent BP is 81/50. The patient is also on pressors and norepinephrine is running at 0.25 mcg/kg/m. The patient has improved in her urine output which is producing approximately 40 mL an hour. She is fully sedated on propofol which is running at 50 mcg/kg/m. She is, comfortable and symptoms of the mechanical ventilator. I reviewed the initial blood gas that showed a pH of 7.12 with a pCO2 of 48 and a pO2 of more than 400. Subsequently, the patient was placed on assist-control mode at the rate of 26, tidal volume of 400 and FiO2 has been weaned down to 40% and she is currently on a PEEP of 5. The chest x-ray that was done following her abdominal surgery showed adequate positioning of 82. There is no evidence of any acute abnormalities. She has a left IJ triple-lumen catheter in place. The patient had evidence of renal failure, likely acute due to BUN of 47 and a creatinine of 1.78. She also has a mild anion gap metabolic acidosis. The lactic acid level was 2.7. Calcium level was low at 6.3. Serum albumin was 2.6 with a total protein of 4.8. The white cell cause of 3.2 with a hemoglobin of 11.4. She has a NG tube in place. Output from the NG is minimal are brown. Her white suppositive 3.2 with a hemoglobin of 11.4. She is currently covered with IV Zosyn and Flagyl. She was ordered started on a bicarb infusion. Note that the patient has had multiple abdominal surgeries in the past. She has undergone a previous right and left colectomy with end colostomy in September 2022 and subsequent reversal of the colostomy. She has COPD, hypothyroidism and she is a chronic smoker. The patient has had previous episodes of small bowel obstruction and large bowel obstruction. She suffers from chronic constipation. She is status post colectomy and colostomy for chronic thickened impaction approximately 9 months ago. She underwent subsequent reversal approximately 4 months ago but colostomy. On today's evaluation of a 2022, the patient is being seen for a follow-up. She is still doing very poor. On today's evaluation, the skin over the abdominal wall and the lower extremities are extensively mottled, a sign of tissue hypoperfusion related to sepsis. The patient is still on a mechanical ventilator. This morning, she is on propofol running at 25 mcg/kg/m. She is synchronous with mechanical ventilator. She is on assist-control mode at a rate of 26, tidal volume of 400, FiO2 of 40% and a PEEP is currently at 5. Blood gas shows improvement in the acid base status. PH is up to 7.32 with a pCO2 of 36 a nd pO2 120 and this was gas was done FiO2 of 40%. Chest x-ray from today shows adequate expansion of both lungs. The patient has developed some left-sided pleural effusion/atelectasis. ET tube is in good location. The patient has a left IJ triple-lumen catheter in place. Orogastric tube was also in good location. The output from the OG is green and in the order of 300 mL over the past 18 hours. Hemodynamically, the patient is doing poor. She is on fluids and the patient got resuscitated with a total of 7 L of IV fluids yesterday in addition to IV albumin. Currently, she started on norepinephrine running at 0.35 mcg/kg/m. She is also on vasopressin and physiologic dose. She is on a bicarbonate infusion running at 150 mL an hour. She is on IV Zosyn and Flagyl. Urine output is in order of 10-20 mL an hour. PABLO drain is putting out serosanguineous material. Ileostomy has minimal amount of liquidy material in the bag. The stoma is still healthy and viable and there is no signs of necrosis. The patient has a BUN of 40 with a creatinine of 1.6. Sodium is at 139. Lactic acid level is still elevated at 3.4, calcium is at 5.9, ionized calcium is 3.6, magnesium is at 1.3 and the white cell cause of 4.4 with a hemoglobin of 10.6 and a platelet count of 161. She is nothing by mouth. She is afebrile for now. Objective - Vital Signs Vital signs: Vital Signs Temp 99.4 F 05/28/23 04:00 Pulse 98 05/28/23 08:55 Resp 26 H 05/28/23 07:30 BP 99/60 05/27/23 08:57 Pulse Ox 98 05/28/23 07:30 FiO2 40 05/28/23 08:11 Intake & Output 05/27/23 05/28/23 05/28/23 18:59 06:59 18:59 Intake Total 26680 2317.002 198.507 Output Total 330 330 350 Balance 9696 1987.002 -151.493 Weight 70.4 kg Intake: IV 4526 1962 176 0.9 NS KVO 26 246 20 ARTERIAL LINE & CVP 66 6 Dextrose 5% in Water 1, 1650 150 000 ml @ 150 mls/hr IV . Q7H40M [facility] with Sodium Bicarb (1 Meq/ml) 150 ml Rx#:[id number] Intake, IV Titration 5500 355.002 22.507 Amount Dextrose 5% in Water 1, 150 150 000 ml @ 150 mls/hr IV . Q7H40M [facility] with Sodium Bicarb (1 Meq/ml) 150 ml Rx#:[id number] Norepinephrine 32 mg In 122.713 22.507 Sodium Chloride 0.9% 218 ml @ 0.03 MCG/KG/MIN 0. 778 mls/hr IV .Q24H [facility] Rx#:[id number] Piperacillin-Tazobactam 3 100 .375 gm In Sodium Chloride 0.9% 100 ml @ 25 mls/hr IVPB Q8HR [facility] Rx# :[id number] Sodium Chloride 0.9% 1, 150 000 ml @ 75 mls/hr IV . [id number] [facility] Rx#:[id number] Sodium Chloride 0.9% 500 4000 ml 500 ml @ 999 mls/hr IV .Q31M ONE Rx#:[id number] Sodium Chloride 0.9% 500 1000 ml 500 ml @ 999 mls/hr IV .Q31M [facility] Rx#:[id number] metroNIDAZOLE-NS PMX 500 100 mg In Saline 1 100ml.bag @ 100 mls/hr IVPB Q6H [facility] Rx#:[id number] propofoL 1,000 mg In 82.289 Empty Bag 1 bag @ 15 MCG/ KG/MIN 4.98 mls/hr IV . Q20H5M [facility] Rx#:[id number] Output: Gastric Drainage 300 Drainage 90 80 Left Lower 90 80 Urine 190 250 50 Estimated Blood Loss 50 Other: Voiding Method Indwelling Catheter Indwelling Catheter External Catheter ABP, PAP, CO, CI - Last Documented Arterial Blood Pressure 104/57 - Exam frail and currently fully sedated on propofol. Orogastric and orotracheal tube are both in place. Head exam was generally normal. There was no scleral icterus or corneal arcus. Mucous membranes were moist. The patient has a left larger triple-lumen catheter in place. The CVP is at 10. Neck was supple and without jugular venous distension, thyromegaly, or carotid bruits. Carotids were easily palpable bilaterally. There was no adenopathy. The patient has an NG tube and a triple-lumen catheter in her left IJ. Lungs were clear to auscultation and percussion, and with normal diaphragmatic excursion. No wheezes or rales were noted. Cardiac exam revealed the PMI to be normally situated and sized. The rhythm was regular and no extrasystoles were noted during several minutes of auscultation. The first and second heart sounds were normal and physiologic splitting of the second heart sound was noted. There were no murmurs, rubs, clicks, or gallops. Examination of the abdomen shows a mid abdominal incision with a wound VAC. The patient is a PABLO drain in her left lower quadrant. The patient was given a ileostomy on the right and the tissue is viable at this point in time. The skin over the abdominal wall is quite mottled. No output. Bowel sounds are absent. No direct distention. No direct tenderness. No rebound tenderness. No guarding. Examination of the extremities revealed easily palpable radial, femoral and pedal pulses. There was no cyanosis, clubbing or edema., The patient has a left femoral arterial line and she has also Otero catheter in place. Mottling of the skin in lower extremities with marked diminished pulses. Extremities are cold and clammy. Neurologically, the patient is sedated. - Labs CBC & Chem 7: 05/28/23 04:43 05/28/23 04:43 Labs: Abnormal Lab Results - Last 24 Hours (Table) 05/27/23 05/27/23 05/27/23 Range/Units 12:45 12:45 16:07 WBC 3.2 L (3.8-10.6) k/uL RBC (3.80-5.40) m/uL Hgb (11.4-16.0) gm/dL Hct (34.0-46.0) % RDW 16.3 H (11.5-15.5) % Neutrophils # (Manual) (1.3-7.7) k/uL Lymphocytes # (Manual) (1.0-4.8) k/uL Metamyelocytes # (Man) (0) k/uL ABG pH 7.12 L* (7.35-7.45) ABG pCO2 48 H (35-45) mmHg ABG pO2 >400 H (83-108) mmHg ABG HCO3 16 L (21-25) mmol/L ABG Total CO2 17 L (19-24) mmol/L ABG O2 Saturation 99.1 H (94-97) % Chloride 109 H (98-107) mmol/L Carbon Dioxide 16 L (22-30) mmol/L BUN 45 H (7-17) mg/dL Creatinine 1.78 H (0.52-1.04) mg/dL Glucose (74-99) mg/dL Plasma Lactic Acid José Miguel (0.7-2.0) mmol/L Calcium 6.3 L* (8.4-10.2) mg/dL Ionized Calcium Ines (4.5-5.3) mg/dL Magnesium (1.6-2.3) mg/dL AST 39 H (14-36) U/L Alkaline Phosphatase (38-126) U/L Total Protein 4.8 L (6.3-8.2) g/dL Albumin 2.6 L (3.5-5.0) g/dL 08/24/23 08/24/23 08/24/23 Range/Units 21:00 21:00 21:14 WBC 2.8 L (3.8-10.6) k/uL RBC 3.67 L (3.80-5.40) m/uL Hgb 10.6 L (11.4-16.0) gm/dL Hct 33.4 L (34.0-46.0) % RDW 16.5 H (11.5-15.5) % Neutrophils # (Manual) 0.90 L (1.3-7.7) k/uL Lymphocytes # (Manual) 0.50 L (1.0-4.8) k/uL Metamyelocytes # (Man) 0.25 H (0) k/uL ABG pH (7.35-7.45) ABG pCO2 (35-45) mmHg ABG pO2 (83-108) mmHg ABG HCO3 (21-25) mmol/L ABG Total CO2 (19-24) mmol/L ABG O2 Saturation (94-97) % Chloride 114 H (98-107) mmol/L Carbon Dioxide 11 L (22-30) mmol/L BUN 40 H (7-17) mg/dL Creatinine 1.57 H (0.52-1.04) mg/dL Glucose 125 H (74-99) mg/dL Plasma Lactic Acid José Miguel 3.4 H* (0.7-2.0) mmol/L Calcium 5.6 L* (8.4-10.2) mg/dL Ionized Calcium Ines (4.5-5.3) mg/dL Magnesium (1.6-2.3) mg/dL AST 74 H (14-36) U/L Alkaline Phosphatase 35 L (38-126) U/L Total Protein 3.8 L (6.3-8.2) g/dL Albumin 2.0 L (3.5-5.0) g/dL 05/28/23 05/28/23 05/28/23 Range/Units 04:43 04:43 06:00 WBC (3.8-10.6) k/uL RBC 3.63 L (3.80-5.40) m/uL Hgb 10.6 L (11.4-16.0) gm/dL Hct 32.7 L (34.0-46.0) % RDW 16.5 H (11.5-15.5) % Neutrophils # (Manual) (1.3-7.7) k/uL Lymphocytes # (Manual) 0.31 L (1.0-4.8) k/uL Metamyelocytes # (Man) 0.26 H (0) k/uL ABG pH (7.35-7.45) ABG pCO2 (35-45) mmHg ABG pO2 (83-108) mmHg ABG HCO3 (21-25) mmol/L ABG Total CO2 (19-24) mmol/L ABG O2 Saturation (94-97) % Chloride 110 H (98-107) mmol/L Carbon Dioxide 17 L (22-30) mmol/L BUN 40 H (7-17) mg/dL Creatinine 1.67 H (0.52-1.04) mg/dL Glucose 163 H (74-99) mg/dL Plasma Lactic Acid José Miguel (0.7-2.0) mmol/L Calcium 5.9 L* (8.4-10.2) mg/dL Ionized Calcium Ines 3.6 L (4.5-5.3) mg/dL Magnesium 1.3 L (1.6-2.3) mg/dL AST (14-36) U/L Alkaline Phosphatase (38-126) U/L Total Protein (6.3-8.2) g/dL Albumin (3.5-5.0) g/dL 05/28/23 Range/Units 07:04 WBC (3.8-10.6) k/uL RBC (3.80-5.40) m/uL Hgb (11.4-16.0) gm/dL Hct (34.0-46.0) % RDW (11.5-15.5) % Neutrophils # (Manual) (1.3-7.7) k/uL Lymphocytes # (Manual) (1.0-4.8) k/uL Metamyelocytes # (Man) (0) k/uL ABG pH 7.32 L (7.35-7.45) ABG pCO2 (35-45) mmHg ABG pO2 120 H (83-108) mmHg ABG HCO3 19 L (21-25) mmol/L ABG Total CO2 (19-24) mmol/L ABG O2 Saturation 98.0 H (94-97) % Chloride (98-107) mmol/L Carbon Dioxide (22-30) mmol/L BUN (7-17) mg/dL Creatinine (0.52-1.04) mg/dL Glucose (74-99) mg/dL Plasma Lactic Acid José Miguel (0.7-2.0) mmol/L Calcium (8.4-10.2) mg/dL Ionized Calcium Ines (4.5-5.3) mg/dL Magnesium (1.6-2.3) mg/dL AST (14-36) U/L Alkaline Phosphatase (38-126) U/L Total Protein (6.3-8.2) g/dL Albumin (3.5-5.0) g/dL Microbiology - Last 24 Hours (Table) 05/26/23 22:39 Blood Culture Gram Stain - Preliminary Blood Blood Culture - Preliminary Gram Neg Bacilli Assessment and Plan Plan: acute pneumoperitoneum. The patient is post exploratory laparotomy. The patient underwent extensive subtotal colectomy, partial proctectomy, and ileostomy, drainage of the fecal peritonitis and and open fecal be compaction and left oophorectomy and salpingectomy, The patient is a PABLO drain in the left lower quadrant and the patient has an ileostomy at this point. The patient is postop day #1 Fecal peritonitis with secondary sepsis secondary to above Septic shock secondary to above, the patient denies profoundly hypotensive, requiring pressors and she is also on broad-spectrum antibiotics. The patient is on a combination of norepinephrine and vasopressin. CVP is currently at 10. Aggressively resuscitated with IV fluids History of chronic constipation with previous right and left colectomy and colostomy with subsequent reversal Acute hypotension, likely secondary to abdominal sepsis, currently on a co mbination of fluids and pressors and antibiotics. Acute kidney injury secondary to above, renal function stable and the patient is still oliguric Mild lactic acidosis COPD/chronic smoker Acute respiratory failure, hypoxic and hypercapnic in nature. The patient was kept intubated on a mechanical ventilator following her surgery and her respiratory failure is further contributed by her abdominal sepsis and abdominal surgery. Chronic constipation Previous history of appendiceal carcinoma, resected Remote history of pulmonary embolism on no anticoagulants and this occurred back in 2017. History of cervical C3 stenosis with degenerative disc disease Osteoarthritis Chronic debility and the patient is a [facility] resident Plan Give the patient sedated for now and propofol will be continued. We'll titrate the propofol for sedation and the patient is heavily sedated this point in time. Continue ventilator support and necessary ventilator changes were done, chest x- ray and blood gas was noted from today Continue the bicarb infusion Continue pressors and the patient is currently on norepinephrine and vasopressin Monitor hemodynamics and blood pressure Continue Zosyn and Flagyl Monitor the output from the PABLO drain Calcium and magnesium level needs to be replaced Compression devices to lower extremities regarding DVT prophylaxis IV Protonix Subcu heparin Bronchodilators Keep the patient nothing by mouth for now NG tube in place Keep the patient nothing by mouth for now We'll continue to follow. Condition is critical. The patient remains profoundly septic. We'll continue to follow. Condition is critical. His evaluation was done in more than 30 minutes.
[2023-05-28] MEDS: PANTOPRAZOLE 40 MG/10 ML VIAL IV SCH (10:10)
[2023-05-28] MEDS: HEPARIN SODIUM,PORCINE 5,000 UNIT/ML 1 ML VIAL SQ SCH ×2 (10:10→20:51)
[2023-05-28] MEDS: CHLORHEXIDINE GLUCONATE 15 ML CUP MUCOUS MEM SCH ×2 (10:10→20:51)
[2023-05-28] MEDS ORDERED: CALCIUM GLUCONATE IN NACL 2 GM in SALINE 1 100ML.BAG IVPB ONE ×2 (10:30→17:00)
--- NOTE | 2023-05-28 10:43 | P.NPCON ---
History of Present Illness - Reason for Consult acute renal failure - History of Present Illness reason for consultation: Acute kidney injury History of present illness: Patient is a 63-year-old female seen in consultation for acute kidney injury. Patient's baseline creatinine is 0.8 and was 1.28 on admission in 05/26/2023 and is up to 1.67 today. Urine output is about 30-50 mL an hour. Patient came to the hospital due to abdominal pain. Patient is currently intubated. Patient was noted to have perforated viscus with pneumoperitoneum, volvulus and underwent exploratory laparotomy, subtotal colectomy with partial proctectomy, drainage of pelvic abscess and end ileostomy on 05/27/2023. She is currently in the ICU. She is intubated. She is on Levophed and vasopressin. She is on bicarbonate running at 150 mL an hour. I don't see any NSAIDs and her home medication list. No history of diabetes. Vital signs are stable. On vasopressors support. General: Resting in bed. HEENT: Intubated. LUNGS: Scattered rhonchi. HEART: Rate and Rhythm are regular. ABDOMEN: Ileostomy and wound VAC noted. EXTREMITITES: No edema. Past Medical History Past Medical History: Cancer, COPD, GERD/Reflux, Osteoarthritis (OA), Pulmonary Embolus (PE), Thyroid Disorder Additional Past Medical History / Comment(s): CANCER APPENDIX, COLOSTOMY, HEART MURMUR., STATES PE 2017., CERVICAL STENOSIS WITH HERNIATED DISC., ABD WOUND DIHISENCE., RESIDES AT [facility]. History of Any Multi-Drug Resistant Organisms: MRSA Date of last positivie culture/infection: 11/24/22 MDRO Source:: ABD WOUND Past Surgical History: Section Additional Past Surgical History / Comment(s): RIGHT AND LEFT COLECTOMY WITH COLOSTOMY., COLONOSCOPY; ostomy reversal/hernia repair/colectomy (01/29/23). Past Anesthesia/Blood Transfusion Reactions: No Reported Reaction Past Psychological History: No Psychological Hx Reported Smoking Status: Current every day smoker Past Alcohol Use History: None Reported Additional Past Alcohol Use History / Comment(s): SMOKES 1/2 PPD, STARTED SMOKING AGE 21. Past Drug Use History: None Reported - Past Family History Mother History Unknown: Yes Family Medical History: No Reported History Medications and Allergies Home Medications Medication Instructions Recorded Confirmed Type Levothyroxine Sodium [Euthyrox] 75 mcg PO DAILY #30 tab 09/17/22 05/26/23 Rx Ipratropium-Albuterol Nebulize 3 ml INHALATION RT-TID PRN 10/04/22 05/26/23 History [Duoneb 0.5 mg-3 mg/3 ml Soln] Omeprazole [PriLOSEC] 20 mg PO DAILY 10/04/22 05/26/23 History Acetaminophen Tab [Tylenol] 325 mg PO Q6HR PRN 01/26/23 05/26/23 History Calcium Carbonate/Vitamin D3 1 tab PO DAILY 01/26/23 05/26/23 History [Calcium 600 mg-Vit D3 5 mcg (200 unit)] Cholecalciferol [Vitamin D3 (25 25 mcg PO DAILY 01/26/23 05/26/23 History Mcg = 1000 Iu)] Pyridoxine HCl (Vitamin B6) 100 mg PO DAILY 01/26/23 05/26/23 History [Vitamin B-6] HYDROcodone/APAP 5-325MG [Decherd 1 tab PO Q6HR PRN 3 Days #12 tab 02/25/23 05/26/23 Rx 5-325] Docusate [Colace] 100 mg PO BID 05/26/23 05/26/23 History Folic Acid 0.4 mg PO HS 05/26/23 05/26/23 History Healthshake 1 dose PO TID 05/26/23 05/26/23 History Magnesium Citrate [Citrate of 1.745 gm PO DAILY PRN 05/26/23 05/26/23 History Magnesia] Multivitamins, Thera [Multivitamin 1 tab PO HS 05/26/23 05/26/23 History (formulary)] Psyllium Husk 100% [Metamucil 6 gm PO DAILY 05/26/23 05/26/23 History Packet] Allergies Allergy/AdvReac Type Severity Reaction Status Date / Time No Known Allergies Allergy Verified 05/26/23 17:49 Physical Exam Vitals: Vital Signs Temp Pulse Pulse Resp Pulse Ox FiO2 05/28/23 08:55 98 05/28/23 08:11 40 05/28/23 08:10 92 05/28/23 07:30 92 26 H 98 05/28/23 07:15 95 26 H 96 05/28/23 07:00 96 27 H 97 05/28/23 06:45 98 26 H 96 05/28/23 06:30 97 26 H 96 05/28/23 06:15 98 26 H 05/28/23 06:00 99 26 H 96 05/28/23 05:45 98 26 H 96 05/28/23 05:30 101 H 26 H 95 05/28/23 05:15 96 26 H 96 05/28/23 05:00 96 26 H 95 05/28/23 04:45 95 27 H 97 05/28/23 04:32 92 05/28/23 04:30 92 26 H 97 05/28/23 04:15 91 26 H 05/28/23 04:11 91 05/28/23 04:00 99.4 F 92 26 H 96 40 05/28/23 03:57 40 05/28/23 03:45 92 26 H 96 05/28/23 03:30 92 26 H 96 05/28/23 03:15 95 26 H 95 05/28/23 03:00 95 26 H 100 05/28/23 02:45 88 26 H 98 05/28/23 02:30 89 25 H 97 05/28/23 02:15 88 26 H 98 05/28/23 02:00 87 26 H 98 05/28/23 01:45 89 26 H 98 05/28/23 01:30 89 26 H 98 05/28/23 01:15 89 26 H 97 05/28/23 01:00 87 26 H 96 05/28/23 00:45 85 26 H 97 05/28/23 00:30 84 29 H 100 05/28/23 00:15 84 27 H 99 05/28/23 00:07 86 05/28/23 00:00 97.5 F L 84 26 H 95 40 05/27/23 23:49 85 05/27/23 23:47 40 05/27/23 23:45 78 26 H 96 05/27/23 23:30 82 28 H 95 05/27/23 23:15 86 27 H 97 05/27/23 23:00 85 26 H 96 05/27/23 22:45 88 26 H 95 05/27/23 22:30 89 22 94 L 05/27/23 22:15 87 16 95 05/27/23 22:00 84 3 L 96 05/27/23 21:49 86 4 L 96 05/27/23 21:45 85 28 H 05/27/23 21:30 86 26 H 05/27/23 21:15 88 26 H 05/27/23 21:00 84 27 H 05/27/23 20:45 87 26 H 05/27/23 20:30 90 28 H 96 05/27/23 20:15 92 28 H 97 05/27/23 20:04 40 05/27/23 20:00 97.5 F L 90 28 H 97 40 05/27/23 19:45 89 26 H 100 05/27/23 19:30 90 26 H 97 05/27/23 19:15 89 27 H 98 05/27/23 19:00 86 26 H 94 L 40 05/27/23 18:00 86 26 H 94 L 40 05/27/23 17:00 88 6 L 98 40 05/27/23 16:20 40 05/27/23 16:00 97.5 F L 97 99 16 99 100 05/27/23 15:50 100 05/27/23 15:20 100 Intake and Output 05/27/23 05/28/23 05/28/23 22:59 06:59 14:59 Intake Total 6291.211 1551.791 198.507 Output Total 390 120 350 Balance 5901.211 1431.791 -151.493 Intake: IV 580 1408 176 0.9 NS KVO 112 160 20 ARTERIAL LINE & CVP 18 48 6 Dextrose 5% in Water 1, 450 1200 150 000 ml @ 150 mls/hr IV . Q7H40M [facility] with Sodium Bicarb (1 Meq/ml) 150 ml Rx#:[id number] Intake, IV Titration 5711.211 143.791 22.507 Amount Dextrose 5% in Water 1, 300 000 ml @ 150 mls/hr IV . Q7H40M [facility] with Sodium Bicarb (1 Meq/ml) 150 ml Rx#:[id number] Norepinephrine 32 mg In 40.211 82.502 22.507 Sodium Chloride 0.9% 218 ml @ 0.03 MCG/KG/MIN 0. 778 mls/hr IV .Q24H [facility] Rx#:[id number] Piperacillin-Tazobactam 3 100 .375 gm In Sodium Chloride 0.9% 100 ml @ 25 mls/hr IVPB Q8HR [facility] Rx# :[id number] Sodium Chloride 0.9% 1, 150 000 ml @ 75 mls/hr IV . [id number] [facility] Rx#:[id number] Sodium Chloride 0.9% 500 4000 ml 500 ml @ 999 mls/hr IV .Q31M [facility] Rx#:[id number] Sodium Chloride 0.9% 500 1000 ml 500 ml @ 999 mls/hr IV .Q31M [facility] Rx#:[id number] metroNIDAZOLE-NS PMX 500 100 mg In Saline 1 100ml.bag @ 100 mls/hr IVPB Q6H [facility] Rx#:[id number] propofoL 1,000 mg In 21.000 61.289 Empty Bag 1 bag @ 15 MCG/ KG/MIN 4.98 mls/hr IV . Q20H5M [facility] Rx#:[id number] Output: Gastric Drainage 300 Drainage 170 Left Lower 170 Urine 220 120 50 Other: Voiding Method Indwelling Catheter Indwelling Catheter Weight 70.4 kg ABP, PAP, CO, CI - Last 8 Hours Arterial Blood Pressure 104/57 Arterial Blood Pressure 102/62 Arterial Blood Pressure 93/59 Arterial Blood Pressure 94/59 Arterial Blood Pressure 94/55 Arterial Blood Pressure 94/55 Arterial Blood Pressure 85/57 Arterial Blood Pressure 90/58 Arterial Blood Pressure 102/58 Arterial Blood Pressure 100/57 Arterial Blood Pressure 93/62 Arterial Blood Pressure 92/56 Arterial Blood Pressure 87/54 Arterial Blood Pressure 87/57 Arterial Blood Pressure 85/59 Arterial Blood Pressure 83/58 Arterial Blood Pressure 85/59 Arterial Blood Pressure 110/45 Arterial Blood Pressure 94/46 Results - Lab Results Most recent lab results ABG pH 7.32 (7.35-7.45) L 05/28/23 07:04 ABG pCO2 36 mmHg (35-45) 05/28/23 07:04 ABG pO2 120 mmHg (83-108) H 05/28/23 07:04 ABG HCO3 19 mmol/L (21-25) L 05/28/23 07:04 ABG O2 Saturation 98.0 % (94-97) H 05/28/23 07:04 Calcium 5.9 mg/dL (8.4-10.2) L* 05/28/23 04:43 Magnesium 1.3 mg/dL (1.6-2.3) L 05/28/23 04:43 05/28/23 04:43 05/28/23 04:43 Assessment and Plan Plan: Assessment: 1. Acute kidney injury secondary to ATN secondary to septic shock. Patient also received IV contrast on 05/26/[address] with IV contrast. No hydronephrosis was noted on CT. aseline creatinine is 0.8 and is 1.67 today. 2. Septic shock secondary to perforated viscus with pneumoperitoneum status post exploratory laparotomy, subtotal colectomy, end ileostomy 05/27/2023. Blood culture positive for gram-negative bacilli. On vasopressor support. 3. Metabolic acidosis secondary to acute kidney injury. 4. Hypocalcemia secondary to acute kidney injury. Being replaced. 5. Hypomagnesemia from poor intake. Being replaced. Plan: Maintain bicarb drip. Magnesium and calcium being replaced. Wean FiO2 and vasopressors. Continue to monitor renal function and urine output. Continue to assess daily for need for renal replacement therapy. Thank you for the consultation. I will continue to follow patient with you during her hospital stay.
[2023-05-28] MEDS ORDERED: propofoL 100 ML IV ONE (11:51)
[2023-05-28 12:08] LABS: Glucose,Whole Blood 169 mg/dL (70-110)
[2023-05-28] MEDS: NOREPINEPHRINE 32 MG in SODIUM CHLORIDE 0.9% 218 ML IV SCH (13:17)
--- NOTE | 2023-05-28 15:17 | P.CONS ---
History of Present Illness - Reason for Consult Consult date: 05/28/23 Medical management Requesting physician: Mariely Bell - Chief Complaint Acute abdomen - History of Present Illness This is a 63-year-old patient, who had severe ileus of right and left: And underwent right and left colectomy with end colostomy by Dr. Worthington on 09/03. on January 29/2023 underwent exploratory laparotomy with takedown of colostomy and takedown of splenic flexure with partial colectomy and repair of incisional hernia and lysis of adhesions by Dr. Worthington. Following that patient had a three-week stay in the hospital for protracted ileus. And finally was discharged on February 25. Patient then presented to the ER on the evening of May 26. Patient presented here from [facility]. Per EMS report patient had a bowel movement for about 3 days. And increasing abdominal discomfort. Patient has remained nonambulatory. Computed tomography scan in the ER showed large pneumoperitoneum. Large fecal bolus of the rectum. Gallstones. Ascites. Patient seen by Dr. Parikh from general surgery.. Patient was taken to the OR for exploratory laboratory yesterday and had subtotal colectomy with partial proctectomy carried out. About 200 mL of pelvic abscess fecal peritonitis was drained. End ileostomy was carried out. Incisional wound VAC prerenal was placed. Left salpingo-oophorectomy was done. Patient continues clean ICU. On the ventilator intubated. FiO2 40 and a PEEP of 5. Drips include IV vasopressor, levo fed, propofol, bicarbonate. No output from the ileostomy bag. Review of systems: Patient intubated Active Medications Albuterol/Ipratropium (Ipratropium-Albuterol 3 Ml Neb) 3 ml INHALATION RT-Q4H MAREK Last Admin: 05/28/23 11:24 Dose: 3 ml Chlorhexidine Gluconate (Chlorhexidine Gluconate 15 Ml Cup) 15 ml MUCOUS MEM BID MAREK Last Admin: 05/28/23 10:10 Dose: 15 ml Heparin Sodium (Porcine) (Heparin Sodium,Porcine 5,000 Unit/Ml 1 Ml Vial) 5,000 unit SQ Q12HR MAREK Last Admin: 05/28/23 10:10 Dose: 5,000 unit Hydromorphone HCl (Hydromorphone 1 Mg/Ml 1 Ml Syringe) 1 mg IVP Q3HR PRN PRN Reason: Moderate to Severe Pain (4-10) Last Admin: 05/28/23 00:03 Dose: 1 mg Piperacillin Sod/Tazobactam (Sod 3.375 gm/ Sodium Chloride) 100 mls @ 25 mls/hr IVPB Q8HR MAREK; Protocol Last Admin: 05/28/23 08:23 Dose: 25 mls/hr Metronidazole 500 mg/ IV (Solution) 100 mls @ 100 mls/hr IVPB Q6H MAREK; Protocol Last Admin: 05/28/23 11:57 Dose: 100 mls/hr Norepinephrine Bitartrate 32 (mg/ Sodium Chloride) 250 mls @ 0.778 mls/hr IV .Q24H MAREK; Protocol Last Titration: 05/28/23 14:18 Dose: 0.3 mcg/kg/min, 7.782 mls/hr Propofol 1,000 mg/ IV Solution 100 mls @ 4.98 mls/hr IV .Q20H5M MAREK; Protocol Last Admin: 05/28/23 04:38 Dose: 25 mcg/kg/min, 8.301 mls/hr Sodium Bicarbonate 150 ml/ (Dextrose/Water) 1,150 mls @ 150 mls/hr IV .Q7H40M MAREK Last Admin: 05/28/23 08:31 Dose: 150 mls/hr Vasopressin 60 unit/ Sodium (Chloride) 153 mls @ 4.59 mls/hr IV .Q24H MAREK; Protocol Last Admin: 05/27/23 23:35 Dose: 0.03 units/min, 4.59 mls/hr Miscellaneous Information (Potassium Replacement Protocol 1 Each Misc) 1 each MISCELLANE DAILY PRN; Protocol PRN Reason: Per Protocol Miscellaneous Information (Magnesium Replacement Protocol 1 Each Misc) 1 each MISCELLANE DAILY PRN; Protocol PRN Reason: Per Protocol Miscellaneous Information (Phosphorus Replacement Protoco 1 Each Misc) 1 each MISCELLANE DAILY PRN; Protocol PRN Reason: Per Protocol Naloxone HCl (Naloxone 0.4 Mg/Ml 1 Ml Vial) 0.2 mg IV Q2M PRN PRN Reason: Opioid Reversal Ondansetron HCl (Ondansetron 4 Mg/2 Ml Vial) 4 mg IVP Q8HR PRN PRN Reason: Nausea And Vomiting Pantoprazole Sodium (Pantoprazole 40 Mg/10 Ml Vial) 40 mg IV DAILY MAREK Last Admin: 05/28/23 10:10 Dose: 40 mg Past medical history to include: Hypothyroid, osteomyelitis, COPD, left colectomy with end colostomy Social history: Currently at [facility]. Smokes about half a pack a day since age 21, up to February 2023.. Doesn't really walk currently. Physical examination: VITAL SIGNS: 98.9, 92, 26, 1 10 x 60, 100% on the ventilator GENERAL:, In bed, sedated EYES: Pupils equal. Conjunctiva normal. HEENT: External appearance of nose and ears normal, oral cavity dry mucous membranes. ET tube. NECK: JVD unable to assess; masses not palpable. HEART: First and second heart sounds are normal; no edema. LUNGS: Respiratory rate increased; decreased breath sounds. ABDOMEN: Soft,, nontender Liver spleen not palpable, no masses palpable. Midline Provena. Left-sided PABLO drain. Right-sided ileostomy bag with no stool. PSYCH: Sedated MUSCULOSKELETAL:No Clubbing/cyanosis;muscles-grossly intact. Some mottling of the right lower extremity. Per Doppler distal pulses palpable INVESTIGATIONS, reviewed in the clinical context: 05/28/2023: White count 4.4 hemoglobin 10.6 platelets 161 2139 potassium 4.5 BUN 40 creatinine 1.67 bicarb 17 calcium 5.9 ionized calcium 3.6 magnesium 1.3 Previous labs: Creatinine 1.28 on 05/26/2023. 0.77 on 02/25/2023. EKG tracing personally reviewed by me-normal sinus rhythm. P pulmonale. Nonspecific T-wave changes. Chest x-ray film personally reviewed by me-hyperinflation CT abdomen pelvis [May 26] large pneumoperitoneum. Large fecal bolus of the rectum. Fecal debris within the redundant sigmoid colon. Because of the volvulus. Cholelithiasis. Ascites. Assessment and plan: -Acute bowel perforation leading to pneumoperitoneum and septic peritonitis. IV Flagyl. IV Zosyn. -Septic shock from above: Severe IV vasopressin, IV levo fed. -Acute metabolic acidosis multifactorial including renal failure IV bicarbonate drip -Acute hypoxic respiratory failure, requiring ventilator support FiO2 40 and a PEEP of 5. -Exploratory laparotomy: Subtotal colectomy with partial proctectomy; Drainage of pelvic abscess/fecal peritonitis, 200-mL; End ileostomy; Placement of round #19 garfield rodriguez drain; Placement of incisional wound vac, 20-cm, PREVENa; Left salpingo-oophorectomy with Dr. Mariely Parikh on May 27. -Reversal of colostomy in February 2023. Right and left colectomy with end colostomy in September [address] Worthington -Acute postprocedure blood loss anemia, expected from surgery contributing to hypotension: Admission hemoglobin 14.9. Currently 10.6 -GERD PPI -Chronic medical debility from surgery. Other medical conditions. per F patient has recently been nonambulatory. -Hypothyroid Levothyroxin -COPD in a previous smoker DuoNeb every 4 -Anemia of chronic disease hemoglobin 11.3 Iron deficiency from blood loss. Thank you Dr. Parikh. We'll follow Past Medical History Past Medical History: Cancer, COPD, GERD/Reflux, Osteoarthritis (OA), Pulmonary Embolus (PE), Thyroid Disorder Additional Past Medical History / Comment(s): CANCER APPENDIX, COLOSTOMY, HEART MURMUR., STATES PE 2017., CERVICAL STENOSIS WITH HERNIATED DISC., ABD WOUND DIHISENCE., RESIDES AT [facility]. History of Any Multi-Drug Resistant Organisms: MRSA Year Discovered:: 11/24/22 MDRO Source:: ABD WOUND Past Surgical History: Section Additional Past Surgical History / Comment(s): RIGHT AND LEFT COLECTOMY WITH COLOSTOMY., COLONOSCOPY; ostomy reversal/hernia repair/colectomy (01/29/23). Past Anesthesia/Blood Transfusion Reactions: No Reported Reaction Past Psychological History: No Psychological Hx Reported Smoking Status: Current every day smoker Past Alcohol Use History: None Reported Additional Past Alcohol Use History / Comment(s): SMOKES 1/2 PPD, STARTED SMOKING AGE 21. Past Drug Use History: None Reported - Past Family History Mother History Unknown: Yes Family Medical History: No Reported History Medications and Allergies Home Medications Medication Instructions Recorded Confirmed Type Levothyroxine Sodium [Euthyrox] 75 mcg PO DAILY #30 tab 09/17/22 05/26/23 Rx Ipratropium-Albuterol Nebulize 3 ml INHALATION RT-TID PRN 10/04/22 05/26/23 History [Duoneb 0.5 mg-3 mg/3 ml Soln] Omeprazole [PriLOSEC] 20 mg PO DAILY 10/04/22 05/26/23 History Acetaminophen Tab [Tylenol] 325 mg PO Q6HR PRN 01/26/23 05/26/23 History Calcium Carbonate/Vitamin D3 1 tab PO DAILY 01/26/23 05/26/23 History [Calcium 600 mg-Vit D3 5 mcg (200 unit)] Cholecalciferol [Vitamin D3 (25 25 mcg PO DAILY 01/26/23 05/26/23 History Mcg = 1000 Iu)] Pyridoxine HCl (Vitamin B6) 100 mg PO DAILY 01/26/23 05/26/23 History [Vitamin B-6] HYDROcodone/APAP 5-325MG [Beccaria 1 tab PO Q6HR PRN 3 Days #12 tab 02/25/23 05/26/23 Rx 5-325] Docusate [Colace] 100 mg PO BID 05/26/23 05/26/23 History Folic Acid 0.4 mg PO HS 05/26/23 05/26/23 History Healthshake 1 dose PO TID 05/26/23 05/26/23 History Magnesium Citrate [Citrate of 1.745 gm PO DAILY PRN 05/26/23 05/26/23 History Magnesia] Multivitamins, Thera [Multivitamin 1 tab PO HS 05/26/23 05/26/23 History (formulary)] Psyllium Husk 100% [Metamucil 6 gm PO DAILY 05/26/23 05/26/23 History Packet] Allergies Allergy/AdvReac Type Severity Reaction Status Date / Time No Known Allergies Allergy Verified 05/26/23 17:49 Physical Exam Vitals: Vital Signs Temp Pulse Pulse Resp Pulse Ox FiO2 05/28/23 08:55 98 05/28/23 08:11 40 05/28/23 08:10 92 05/28/23 07:30 92 26 H 98 05/28/23 07:15 95 26 H 96 05/28/23 07:00 96 27 H 97 05/28/23 06:45 98 26 H 96 05/28/23 06:30 97 26 H 96 05/28/23 06:15 98 26 H 05/28/23 06:00 99 26 H 96 05/28/23 05:45 98 26 H 96 05/28/23 05:30 101 H 26 H 95 05/28/23 05:15 96 26 H 96 05/28/23 05:00 96 26 H 95 05/28/23 04:45 95 27 H 97 05/28/23 04:32 92 05/28/23 04:30 92 26 H 97 05/28/23 04:15 91 26 H 05/28/23 04:11 91 05/28/23 04:00 99.4 F 92 26 H 96 40 05/28/23 03:57 40 05/28/23 03:45 92 26 H 96 05/28/23 03:30 92 26 H 96 05/28/23 03:15 95 26 H 95 05/28/23 03:00 95 26 H 100 05/28/23 02:45 88 26 H 98 05/28/23 02:30 89 25 H 97 05/28/23 02:15 88 26 H 98 05/28/23 02:00 87 26 H 98 05/28/23 01:45 89 26 H 98 05/28/23 01:30 89 26 H 98 05/28/23 01:15 89 26 H 97 05/28/23 01:00 87 26 H 96 05/28/23 00:45 85 26 H 97 05/28/23 00:30 84 29 H 100 05/28/23 00:15 84 27 H 99 05/28/23 00:07 86 05/28/23 00:00 97.5 F L 84 26 H 95 40 05/27/23 23:49 85 05/27/23 23:47 40 05/27/23 23:45 78 26 H 96 05/27/23 23:30 82 28 H 95 05/27/23 23:15 86 27 H 97 05/27/23 23:00 85 26 H 96 05/27/23 22:45 88 26 H 95 05/27/23 22:30 89 22 94 L 05/27/23 22:15 87 16 95 05/27/23 22:00 84 3 L 96 05/27/23 21:49 86 4 L 96 05/27/23 21:45 85 28 H 05/27/23 21:30 86 26 H 05/27/23 21:15 88 26 H 08/24/23 21:00 84 27 H 05/27/23 20:45 87 26 H 05/27/23 20:30 90 28 H 96 05/27/23 20:15 92 28 H 97 05/27/23 20:04 40 05/27/23 20:00 97.5 F L 90 28 H 97 40 05/27/23 19:45 89 26 H 100 05/27/23 19:30 90 26 H 97 05/27/23 19:15 89 27 H 98 05/27/23 19:00 86 26 H 94 L 40 05/27/23 18:00 86 26 H 94 L 40 05/27/23 17:00 88 6 L 98 40 05/27/23 16:20 40 05/27/23 16:00 97.5 F L 97 99 16 99 100 05/27/23 15:50 100 05/27/23 15:20 100 05/27/23 10:28 84 98 Intake and Output 05/27/23 05/28/23 05/28/23 22:59 06:59 14:59 Intake Total 6291.211 1551.791 198.507 Output Total 390 120 350 Balance 5901.211 1431.791 -151.493 Intake: IV 580 1408 176 0.9 NS KVO 112 160 20 ARTERIAL LINE & CVP 18 48 6 Dextrose 5% in Water 1, 450 1200 150 000 ml @ 150 mls/hr IV . Q7H40M MAREK with Sodium Bicarb (1 Meq/ml) 150 ml Rx#:[id number] Intake, IV Titration 5711.211 143.791 22.507 Amount Dextrose 5% in Water 1, 300 000 ml @ 150 mls/hr IV . Q7H40M MAREK with Sodium Bicarb (1 Meq/ml) 150 ml Rx#:[id number] Norepinephrine 32 mg In 40.211 82.502 22.507 Sodium Chloride 0.9% 218 ml @ 0.03 MCG/KG/MIN 0. 778 mls/hr IV .Q24H MAREK Rx#:[id number] Piperacillin-Tazobactam 3 100 .375 gm In Sodium Chloride 0.9% 100 ml @ 25 mls/hr IVPB Q8HR MAREK Rx# :[id number] Sodium Chloride 0.9% 1, 150 000 ml @ 75 mls/hr IV . [id number] MAREK Rx#:[id number] Sodium Chloride 0.9% 500 4000 ml 500 ml @ 999 mls/hr IV .Q31M ONE Rx#:[id number] Sodium Chloride 0.9% 500 1000 ml 500 ml @ 999 mls/hr IV .Q31M ONE Rx#:[id number] metroNIDAZOLE-NS PMX 500 100 mg In Saline 1 100ml.bag @ 100 mls/hr IVPB Q6H [facility] Rx#:[id number] propofoL 1,000 mg In 21.000 61.289 Empty Bag 1 bag @ 15 MCG/ KG/MIN 4.98 mls/hr IV . Q20H5M [facility] Rx#:[id number] Output: Gastric Drainage 300 Drainage 170 Left Lower 170 Urine 220 120 50 Other: Voiding Method Indwelling Catheter Indwelling Catheter Weight 70.4 kg ABP, PAP, CO, CI - Last 8 Hours Arterial Blood Pressure 104/57 Arterial Blood Pressure 102/62 Arterial Blood Pressure 93/59 Arterial Blood Pressure 94/59 Arterial Blood Pressure 94/55 Arterial Blood Pressure 94/55 Arterial Blood Pressure 85/57 Arterial Blood Pressure 90/58 Arterial Blood Pressure 102/58 Arterial Blood Pressure 100/57 Arterial Blood Pressure 93/62 Arterial Blood Pressure 92/56 Arterial Blood Pressure 87/54 Arterial Blood Pressure 87/57 Arterial Blood Pressure 85/59 Arterial Blood Pressure 83/58 Arterial Blood Pressure 85/59 Arterial Blood Pressure 110/45 Arterial Blood Pressure 94/46 Arterial Blood Pressure 93/50 Arterial Blood Pressure 100/57 Arterial Blood Pressure 82/55 Results CBC & Chem 7: 05/28/23 04:43 05/28/23 04:43 Labs: Abnormal Lab Results - Last 24 Hours (Table) 05/27/23 05/27/23 05/27/23 Range/Units 12:45 12:45 16:07 WBC 3.2 L (3.8-10.6) k/uL RBC (3.80-5.40) m/uL Hgb (11.4-16.0) gm/dL Hct (34.0-46.0) % RDW 16.3 H (11.5-15.5) % Neutrophils # (Manual) (1.3-7.7) k/uL Lymphocytes # (Manual) (1.0-4.8) k/uL Metamyelocytes # (Man) (0) k/uL ABG pH 7.12 L* (7.35-7.45) ABG pCO2 48 H (35-45) mmHg ABG pO2 >400 H (83-108) mmHg ABG HCO3 16 L (21-25) mmol/L ABG Total CO2 17 L (19-24) mmol/L ABG O2 Saturation 99.1 H (94-97) % Chloride 109 H (98-107) mmol/L Carbon Dioxide 16 L (22-30) mmol/L BUN 45 H (7-17) mg/dL Creatinine 1.78 H (0.52-1.04) mg/dL Glucose (74-99) mg/dL Plasma Lactic Acid José Miguel (0.7-2.0) mmol/L Calcium 6.3 L* (8.4-10.2) mg/dL Ionized Calcium Ines (4.5-5.3) mg/dL Magnesium (1.6-2.3) mg/dL AST 39 H (14-36) U/L Alkaline Phosphatase (38-126) U/L Total Protein 4.8 L (6.3-8.2) g/dL Albumin 2.6 L (3.5-5.0) g/dL 05/27/23 05/27/23 05/27/23 Range/Units 21:00 21:00 21:14 WBC 2.8 L (3.8-10.6) k/uL RBC 3.67 L (3.80-5.40) m/uL Hgb 10.6 L (11.4-16.0) gm/dL Hct 33.4 L (34.0-46.0) % RDW 16.5 H (11.5-15.5) % Neutrophils # (Manual) 0.90 L (1.3-7.7) k/uL Lymphocytes # (Manual) 0.50 L (1.0-4.8) k/uL Metamyelocytes # (Man) 0.25 H (0) k/uL ABG pH (7.35-7.45) ABG pCO2 (35-45) mmHg ABG pO2 (83-108) mmHg ABG HCO3 (21-25) mmol/L ABG Total CO2 (19-24) mmol/L ABG O2 Saturation (94-97) % Chloride 114 H (98-107) mmol/L Carbon Dioxide 11 L (22-30) mmol/L BUN 40 H (7-17) mg/dL Creatinine 1.57 H (0.52-1.04) mg/dL Glucose 125 H (74-99) mg/dL Plasma Lactic Acid José Miguel 3.4 H* (0.7-2.0) mmol/L Calcium 5.6 L* (8.4-10.2) mg/dL Ionized Calcium Ines (4.5-5.3) mg/dL Magnesium (1.6-2.3) mg/dL AST 74 H (14-36) U/L Alkaline Phosphatase 35 L (38-126) U/L Total Protein 3.8 L (6.3-8.2) g/dL Albumin 2.0 L (3.5-5.0) g/dL 05/28/23 05/28/23 05/28/23 Range/Units 04:43 04:43 06:00 WBC (3.8-10.6) k/uL RBC 3.63 L (3.80-5.40) m/uL Hgb 10.6 L (11.4-16.0) gm/dL Hct 32.7 L (34.0-46.0) % RDW 16.5 H (11.5-15.5) % Neutrophils # (Manual) (1.3-7.7) k/uL Lymphocytes # (Manual) 0.31 L (1.0-4.8) k/uL Metamyelocytes # (Man) 0.26 H (0) k/uL ABG pH (7.35-7.45) ABG pCO2 (35-45) mmHg ABG pO2 (83-108) mmHg ABG HCO3 (21-25) mmol/L ABG Total CO2 (19-24) mmol/L ABG O2 Saturation (94-97) % Chloride 110 H (98-107) mmol/L Carbon Dioxide 17 L (22-30) mmol/L BUN 40 H (7-17) mg/dL Creatinine 1.67 H (0.52-1.04) mg/dL Glucose 163 H (74-99) mg/dL Plasma Lactic Acid José Miguel (0.7-2.0) mmol/L Calcium 5.9 L* (8.4-10.2) mg/dL Ionized Calcium Ines 3.6 L (4.5-5.3) mg/dL Magnesium 1.3 L (1.6-2.3) mg/dL AST (14-36) U/L Alkaline Phosphatase (38-126) U/L Total Protein (6.3-8.2) g/dL Albumin (3.5-5.0) g/dL 05/28/23 Range/Units 07:04 WBC (3.8-10.6) k/uL RBC (3.80-5.40) m/uL Hgb (11.4-16.0) gm/dL Hct (34.0-46.0) % RDW (11.5-15.5) % Neutrophils # (Manual) (1.3-7.7) k/uL Lymphocytes # (Manual) (1.0-4.8) k/uL Metamyelocytes # (Man) (0) k/uL ABG pH 7.32 L (7.35-7.45) ABG pCO2 (35-45) mmHg ABG pO2 120 H (83-108) mmHg ABG HCO3 19 L (21-25) mmol/L ABG Total CO2 (19-24) mmol/L ABG O2 Saturation 98.0 H (94-97) % Chloride (98-107) mmol/L Carbon Dioxide (22-30) mmol/L BUN (7-17) mg/dL Creatinine (0.52-1.04) mg/dL Glucose (74-99) mg/dL Plasma Lactic Acid José Miguel (0.7-2.0) mmol/L Calcium (8.4-10.2) mg/dL Ionized Calcium Ines (4.5-5.3) mg/dL Magnesium (1.6-2.3) mg/dL AST (14-36) U/L Alkaline Phosphatase (38-126) U/L Total Protein (6.3-8.2) g/dL Albumin (3.5-5.0) g/dL Microbiology - Last 24 Hours (Table) 05/26/23 22:39 Blood Culture Gram Stain - Preliminary Blood Blood Culture - Preliminary Gram Neg Bacilli
--- NOTE | 2023-05-28 15:18 | P.PN ---
Subjective Progress Note Date: 05/28/23 CHIEF COMPLAINT: Perforated colorectal anastomosis HISTORY OF PRESENT ILLNESS: Patient is postop day #1 status post exploratory laparotomy, subtotal colectomy with partial proctectomy, drainage of pelvic a bscess, and ileostomy, open fecal disimpaction and left salpingo-oophorectomy. Patient is currently in the ICU and on mechanical ventilation. She is on Levophed and vasopressin. She has been hypotensive. She does have mottling of the lower extremities and abdomen. Afebrile. WBC 4.4 Hgb 10.6 platelets 161 sodium 139 potassium 4.5 creatinine elevated at 1.67 magnesium 1.3 and being replaced. PABLO drain with serous output 170 mL. PHYSICAL EXAM: VITAL SIGNS: Reviewed GENERAL: Well-developed in no acute distress. HEENT: No sclera icterus. Extraocular movements grossly intact. Moist buccal mucosa. Head is atraumatic, normocephalic. Hears conversational speech. No nasal drainage. NECK: Supple without lymphadenopathy. CHEST: Non-labored respirations and equal bilateral excursions. CARDIOVASCULAR: Palpable 2+ radial pulses. ABDOMEN: Soft. Distended. Ostomy bag on the right small amount of stool. Ostomy is pink. Patient does have mottling noted on the abdomen as well as the lower extremity thighs. NG tube in place MUSCULOSKELETAL: No clubbing or cyanosis. NEUROLOGIC: No focal or lateralizing signs. Cranial nerves II through XII grossly intact. PSYCH: Appropriate affect. Alert and oriented to person, place and time. SKIN: Well perfused. Good skin turgor. ASSESSMENT: 1. Perforated colorectal anastomosis due to colorectal stenosis 2. Bowel ischemia 3. Fecal impaction 4. Chronic constipation 5. History of colostomy reversal 6. Gastroesophageal reflux disease 7. Hypothyroidism 8. Chronic obstructive pulmonary disease 9. History of pulmonary embolism 10. Tobacco abuse disorder 11. 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 Fecal peritonitis 15. Pelvic abscess 16. Sepsis with septic shock 17. Adhesive band PLAN: -Continue ICU management -Continue supportive care -Continue antibiotics -Continue IV fluids -DVT prophylaxis subcu heparin Physician Manager Of Sales note has been reviewed by physician. Signing provider agrees with the documented findings, assessment, and plan of care. Objective - Vital Signs Vital signs: Vital Signs Temp 98.9 F 05/28/23 12:00 Pulse 92 05/28/23 12:15 Resp 26 H 05/28/23 12:15 BP 99/60 05/27/23 08:57 Pulse Ox 100 05/28/23 11:45 FiO2 40 05/28/23 11:25 Intake & Output 05/27/23 05/28/23 05/28/23 18:59 06:59 18:59 Intake Total 55737 2317.002 1615.079 Output Total 330 330 580 Balance 9696 6372.157 0565.079 Weight 70.4 kg Intake: IV 4526 1962 1556 0.9 NS KVO 26 246 120 ARTERIAL LINE & CVP 66 36 Calcium Gluconate in NaCl 100 2 gm In Saline 1 100ml. bag @ 100 mls/hr IVPB ONCE ONE Rx#:[id number] Dextrose 5% in Water 1, 1650 900 000 ml @ 150 mls/hr IV . Q7H40M [facility] with Sodium Bicarb (1 Meq/ml) 150 ml Rx#:[id number] Magnesium Sulfate-D5w Pmx 300 1 gm In Dextrose/Water 1 100ml.bag @ 100 mls/hr IVPB Q1H [facility] Rx#: [id number] metroNIDAZOLE-NS PMX 500 100 mg In Saline 1 100ml.bag @ 100 mls/hr IVPB Q6H [facility] Rx#:[id number] Intake, IV Titration 5500 355.002 59.079 Amount Dextrose 5% in Water 1, 150 150 000 ml @ 150 mls/hr IV . Q7H40M [facility] with Sodium Bicarb (1 Meq/ml) 150 ml Rx#:[id number] Norepinephrine 32 mg In 122.713 59.079 Sodium Chloride 0.9% 218 ml @ 0.03 MCG/KG/MIN 0. 778 mls/hr IV .Q24H [facility] Rx#:[id number] Piperacillin-Tazobactam 3 100 .375 gm In Sodium Chloride 0.9% 100 ml @ 25 mls/hr IVPB Q8HR [facility] Rx# :[id number] Sodium Chloride 0.9% 1, 150 000 ml @ 75 mls/hr IV . [id number] [facility] Rx#:[id number] Sodium Chloride 0.9% 500 4000 ml 500 ml @ 999 mls/hr IV .Q31M [facility] Rx#:[id number] Sodium Chloride 0.9% 500 1000 ml 500 ml @ 999 mls/hr IV .Q31M [facility] Rx#:[id number] metroNIDAZOLE-NS PMX 500 100 mg In Saline 1 100ml.bag @ 100 mls/hr IVPB Q6H [facility] Rx#:[id number] propofoL 1,000 mg In 82.289 Empty Bag 1 bag @ 15 MCG/ KG/MIN 4.98 mls/hr IV . Q20H5M [facility] Rx#:[id number] Output: Gastric Drainage 400 Drainage 90 80 40 Left Lower 90 80 Left Lower Abdomen 40 Urine 190 250 140 Estimated Blood Loss 50 Other: Voiding Method Indwelling Catheter Indwelling Catheter Indwelling Catheter External Catheter ABP, PAP, CO, CI - Last Documented Arterial Blood Pressure 109/61 - Labs CBC & Chem 7: 05/28/23 04:43 05/28/23 04:43 Labs: Abnormal Lab Results - Last 24 Hours (Table) 05/27/23 05/27/23 05/27/23 Range/Units 12:45 16:07 21:00 WBC 2.8 L (3.8-10.6) k/uL RBC 3.67 L (3.80-5.40) m/uL Hgb 10.6 L (11.4-16.0) gm/dL Hct 33.4 L (34.0-46.0) % RDW 16.5 H (11.5-15.5) % Neutrophils # (Manual) 0.90 L (1.3-7.7) k/uL Lymphocytes # (Manual) 0.50 L (1.0-4.8) k/uL Metamyelocytes # (Man) 0.25 H (0) k/uL ABG pH 7.12 L* (7.35-7.45) ABG pCO2 48 H (35-45) mmHg ABG pO2 >400 H (83-108) mmHg ABG HCO3 16 L (21-25) mmol/L ABG Total CO2 17 L (19-24) mmol/L ABG O2 Saturation 99.1 H (94-97) % Chloride 109 H (98-107) mmol/L Carbon Dioxide 16 L (22-30) mmol/L BUN 45 H (7-17) mg/dL Creatinine 1.78 H (0.52-1.04) mg/dL Glucose (74-99) mg/dL POC Glucose (mg/dL) (70-110) mg/dL Plasma Lactic Acid José Miguel (0.7-2.0) mmol/L Calcium 6.3 L* (8.4-10.2) mg/dL Ionized Calcium Ines (4.5-5.3) mg/dL Magnesium (1.6-2.3) mg/dL AST 39 H (14-36) U/L Alkaline Phosphatase (38-126) U/L Total Protein 4.8 L (6.3-8.2) g/dL Albumin 2.6 L (3.5-5.0) g/dL 05/27/23 05/27/23 05/28/23 Range/Units 21:00 21:14 04:43 WBC (3.8-10.6) k/uL RBC 3.63 L (3.80-5.40) m/uL Hgb 10.6 L (11.4-16.0) gm/dL Hct 32.7 L (34.0-46.0) % RDW 16.5 H (11.5-15.5) % Neutrophils # (Manual) (1.3-7.7) k/uL Lymphocytes # (Manual) 0.31 L (1.0-4.8) k/uL Metamyelocytes # (Man) 0.26 H (0) k/uL ABG pH (7.35-7.45) ABG pCO2 (35-45) mmHg ABG pO2 (83-108) mmHg ABG HCO3 (21-25) mmol/L ABG Total CO2 (19-24) mmol/L ABG O2 Saturation (94-97) % Chloride 114 H (98-107) mmol/L Carbon Dioxide 11 L (22-30) mmol/L BUN 40 H (7-17) mg/dL Creatinine 1.57 H (0.52-1.04) mg/dL Glucose 125 H (74-99) mg/dL POC Glucose (mg/dL) (70-110) mg/dL Plasma Lactic Acid José Miguel 3.4 H* (0.7-2.0) mmol/L Calcium 5.6 L* (8.4-10.2) mg/dL Ionized Calcium Ines (4.5-5.3) mg/dL Magnesium (1.6-2.3) mg/dL AST 74 H (14-36) U/L Alkaline Phosphatase 35 L (38-126) U/L Total Protein 3.8 L (6.3-8.2) g/dL Albumin 2.0 L (3.5-5.0) g/dL 05/28/23 05/28/23 05/28/23 Range/Units 04:43 06:00 07:04 WBC (3.8-10.6) k/uL RBC (3.80-5.40) m/uL Hgb (11.4-16.0) gm/dL Hct (34.0-46.0) % RDW (11.5-15.5) % Neutrophils # (Manual) (1.3-7.7) k/uL Lymphocytes # (Manual) (1.0-4.8) k/uL Metamyelocytes # (Man) (0) k/uL ABG pH 7.32 L (7.35-7.45) ABG pCO2 (35-45) mmHg ABG pO2 120 H (83-108) mmHg ABG HCO3 19 L (21-25) mmol/L ABG Total CO2 (19-24) mmol/L ABG O2 Saturation 98.0 H (94-97) % Chloride 110 H (98-107) mmol/L Carbon Dioxide 17 L (22-30) mmol/L BUN 40 H (7-17) mg/dL Creatinine 1.67 H (0.52-1.04) mg/dL Glucose 163 H (74-99) mg/dL POC Glucose (mg/dL) (70-110) mg/dL Plasma Lactic Acid José Miguel (0.7-2.0) mmol/L Calcium 5.9 L* (8.4-10.2) mg/dL Ionized Calcium Ines 3.6 L (4.5-5.3) mg/dL Magnesium 1.3 L (1.6-2.3) mg/dL AST (14-36) U/L Alkaline Phosphatase (38-126) U/L Total Protein (6.3-8.2) g/dL Albumin (3.5-5.0) g/dL 05/28/23 Range/Units 12:07 WBC (3.8-10.6) k/uL RBC (3.80-5.40) m/uL Hgb (11.4-16.0) gm/dL Hct (34.0-46.0) % RDW (11.5-15.5) % Neutrophils # (Manual) (1.3-7.7) k/uL Lymphocytes # (Manual) (1.0-4.8) k/uL Metamyelocytes # (Man) (0) k/uL ABG pH (7.35-7.45) ABG pCO2 (35-45) mmHg ABG pO2 (83-108) mmHg ABG HCO3 (21-25) mmol/L ABG Total CO2 (19-24) mmol/L ABG O2 Saturation (94-97) % Chloride (98-107) mmol/L Carbon Dioxide (22-30) mmol/L BUN (7-17) mg/dL Creatinine (0.52-1.04) mg/dL Glucose (74-99) mg/dL POC Glucose (mg/dL) 169 H (70-110) mg/dL Plasma Lactic Acid José Miguel (0.7-2.0) mmol/L Calcium (8.4-10.2) mg/dL Ionized Calcium Ines (4.5-5.3) mg/dL Magnesium (1.6-2.3) mg/dL AST (14-36) U/L Alkaline Phosphatase (38-126) U/L Total Protein (6.3-8.2) g/dL Albumin (3.5-5.0) g/dL Microbiology - Last 24 Hours (Table) 05/26/23 22:39 Blood Culture Gram Stain - Preliminary Blood Blood Culture - Preliminary Gram Neg Bacilli
[2023-05-28 16:31] LABS: Magnesium 2.3 mg/dL (1.6-2.3)
[2023-05-28 16:41] LABS: Calcium 5.9 mg/dL (8.4-10.2)
--- NOTE | 2023-05-28 21:41 | P.CONS ---
History of Present Illness - Reason for Consult Consult date: 05/28/23 Fecal peritonitis Requesting physician: Mariely Bell - Chief Complaint Abdominal pain x few days - History of Present Illness Patient is a 63-year-old female with a past medical history significant for COPD PE osteoarthritis patient presented to the hospital 2 days ago for evaluation of abdominal pain that has been going on for few days before presentation to the hospital patient was unable to keep anything down on presentation to the hospital patient was afebrile and no significant medical history at this hospital stay patient did have a leukopenia however white count subsequently normalized during her has been mildly limiting to have limited active passive enzymes are normal urine has been negative patient did have a CT abdominal pelvis large pneumoperitoneum with large fecal bolus of the rectum fecal obesity within the redundant sigmoid colon consider volvulus within the differential patient was taken to the OR yesterday afternoon this patient who was status post laparotomy with evidence of perforated colorectal anastomosis bowel ischemia fecal impaction patient is status post subtotal colectomy and partial proctectomy patient has been admitted to ICU for surgery and patient is currently on max pressor support to maintain her blood pressure patient is currently combination of Zosyn and Flagyl infectious disease was consulted last night for further management of antibiotic therapy most information has been obtained from reviewing the chart talking nursing staff as the patient is currently intubated on the vent unable to void any history patient did have a positive blood culture with gram-negative bacilli abdominal cultures are pending Review of Systems Positive points has been mentioned in HPI complete review could not be obtained because patient intubated on the vent Past Medical History Past Medical History: Cancer, COPD, GERD/Reflux, Osteoarthritis (OA), Pulmonary Embolus (PE), Thyroid Disorder Additional Past Medical History / Comment(s): CANCER APPENDIX, COLOSTOMY, HEART MURMUR., STATES PE 2017., CERVICAL STENOSIS WITH HERNIATED DISC., ABD WOUND DIHISENCE., RESIDES AT [facility]. History of Any Multi-Drug Resistant Organisms: MRSA Year Discovered:: 11/24/22 MDRO Source:: ABD WOUND Past Surgical History: Section Additional Past Surgical History / Comment(s): RIGHT AND LEFT COLECTOMY WITH COLOSTOMY., COLONOSCOPY; ostomy reversal/hernia repair/colectomy (01/29/23). Past Anesthesia/Blood Transfusion Reactions: No Reported Reaction Past Psychological History: No Psychological Hx Reported Smoking Status: Current every day smoker Past Alcohol Use History: None Reported Additional Past Alcohol Use History / Comment(s): SMOKES 1/2 PPD, STARTED SMOKING AGE 21. Past Drug Use History: None Reported - Past Family History Mother History Unknown: Yes Family Medical History: No Reported History Medications and Allergies Home Medications Medication Instructions Recorded Confirmed Type Levothyroxine Sodium [Euthyrox] 75 mcg PO DAILY #30 tab 09/17/22 05/26/23 Rx Ipratropium-Albuterol Nebulize 3 ml INHALATION RT-TID PRN 10/04/22 05/26/23 History [Duoneb 0.5 mg-3 mg/3 ml Soln] Omeprazole [PriLOSEC] 20 mg PO DAILY 10/04/22 05/26/23 History Acetaminophen Tab [Tylenol] 325 mg PO Q6HR PRN 01/26/23 05/26/23 History Calcium Carbonate/Vitamin D3 1 tab PO DAILY 01/26/23 05/26/23 History [Calcium 600 mg-Vit D3 5 mcg (200 unit)] Cholecalciferol [Vitamin D3 (25 25 mcg PO DAILY 01/26/23 05/26/23 History Mcg = 1000 Iu)] Pyridoxine HCl (Vitamin B6) 100 mg PO DAILY 01/26/23 05/26/23 History [Vitamin B-6] HYDROcodone/APAP 5-325MG [[place] 1 tab PO Q6HR PRN 3 Days #12 tab 02/25/23 05/26/23 Rx 5-325] Docusate [Colace] 100 mg PO BID 05/26/23 05/26/23 History Folic Acid 0.4 mg PO HS 05/26/23 05/26/23 History Healthshake 1 dose PO TID 05/26/23 05/26/23 History Magnesium Citrate [Citrate of 1.745 gm PO DAILY PRN 05/26/23 05/26/23 History Magnesia] Multivitamins, Thera [Multivitamin 1 tab PO HS 05/26/23 05/26/23 History (formulary)] Psyllium Husk 100% [Metamucil 6 gm PO DAILY 05/26/23 05/26/23 History Packet] Allergies Allergy/AdvReac Type Severity Reaction Status Date / Time No Known Allergies Allergy Verified 05/26/23 17:49 Physical Exam Vitals: Vital Signs Temp Pulse Pulse Resp Pulse Ox FiO2 05/28/23 14:00 86 26 H 05/28/23 13:30 90 26 H 05/28/23 13:00 91 26 H 05/28/23 12:30 92 26 H 05/28/23 12:15 92 26 H 05/28/23 12:00 98.9 F 92 26 H 05/28/23 11:57 92 05/28/23 11:45 92 26 H 100 05/28/23 11:30 89 26 H 05/28/23 11:25 40 05/28/23 11:24 89 05/28/23 11:15 89 26 H 05/28/23 11:00 90 26 H 05/28/23 10:45 92 26 H 05/28/23 10:30 95 26 H 97 05/28/23 10:15 96 21 100 05/28/23 10:00 96 26 H 96 05/28/23 09:45 97 26 H 97 05/28/23 09:30 96 26 H 96 05/28/23 09:15 96 26 H 98 05/28/23 09:00 97 26 H 97 05/28/23 08:55 98 05/28/23 08:45 97 26 H 98 05/28/23 08:30 98 26 H 93 L 05/28/23 08:15 94 26 H 99 05/28/23 08:11 40 05/28/23 08:10 92 05/28/23 08:00 97.8 F 91 26 H 98 40 05/28/23 07:45 91 26 H 97 05/28/23 07:30 92 26 H 98 05/28/23 07:15 95 26 H 96 05/28/23 07:00 96 27 H 97 05/28/23 06:45 98 26 H 96 05/28/23 06:30 97 26 H 96 05/28/23 06:15 98 26 H 05/28/23 06:00 99 26 H 96 05/28/23 05:45 98 26 H 96 05/28/23 05:30 101 H 26 H 95 05/28/23 05:15 96 26 H 96 05/28/23 05:00 96 26 H 95 05/28/23 04:45 95 27 H 97 05/28/23 04:32 92 05/28/23 04:30 92 26 H 97 05/28/23 04:15 91 26 H 05/28/23 04:11 91 05/28/23 04:00 99.4 F 92 26 H 96 40 05/28/23 03:57 40 05/28/23 03:45 92 26 H 96 05/28/23 03:30 92 26 H 96 05/28/23 03:15 95 26 H 95 05/28/23 03:00 95 26 H 100 05/28/23 02:45 88 26 H 98 05/28/23 02:30 89 25 H 97 05/28/23 02:15 88 26 H 98 05/28/23 02:00 87 26 H 98 05/28/23 01:45 89 26 H 98 05/28/23 01:30 89 26 H 98 05/28/23 01:15 89 26 H 97 05/28/23 01:00 87 26 H 96 05/28/23 00:45 85 26 H 97 05/28/23 00:30 84 29 H 100 05/28/23 00:15 84 27 H 99 05/28/23 00:07 86 05/28/23 00:00 97.5 F L 84 26 H 95 40 05/27/23 23:49 85 05/27/23 23:47 40 05/27/23 23:45 78 26 H 96 05/27/23 23:30 82 28 H 95 05/27/23 23:15 86 27 H 97 05/27/23 23:00 85 26 H 96 05/27/23 22:45 88 26 H 95 05/27/23 22:30 89 22 94 L 05/27/23 22:15 87 16 95 05/27/23 22:00 84 3 L 96 05/27/23 21:49 86 4 L 96 05/27/23 21:45 85 28 H 05/27/23 21:30 86 26 H 05/27/23 21:15 88 26 H 05/27/23 21:00 84 27 H 05/27/23 20:45 87 26 H 05/27/23 20:30 90 28 H 96 05/27/23 20:15 92 28 H 97 05/27/23 20:04 40 05/27/23 20:00 97.5 F L 90 28 H 97 40 05/27/23 19:45 89 26 H 100 05/27/23 19:30 90 26 H 97 05/27/23 19:15 89 27 H 98 05/27/23 19:00 86 26 H 94 L 40 05/27/23 18:00 86 26 H 94 L 40 05/27/23 17:00 88 6 L 98 40 05/27/23 16:20 40 05/27/23 16:00 97.5 F L 97 99 16 99 100 05/27/23 15:50 100 05/27/23 15:20 100 Intake and Output 05/27/23 05/28/23 05/28/23 22:59 06:59 14:59 Intake Total 6291.211 4993.641 3463.730 Output Total 390 120 665 Balance 5901.211 9059.665 3907.730 Intake: IV 580 1408 2008 0.9 NS KVO 112 160 160 ARTERIAL LINE & CVP 18 48 48 Calcium Gluconate in NaCl 100 2 gm In Saline 1 100ml. bag @ 100 mls/hr IVPB ONCE ONE Rx#:[id number] Dextrose 5% in Water 1, 450 1200 1200 000 ml @ 150 mls/hr IV . Q7H40M [facility] with Sodium Bicarb (1 Meq/ml) 150 ml Rx#:[id number] Magnesium Sulfate-D5w Pmx 400 1 gm In Dextrose/Water 1 100ml.bag @ 100 mls/hr IVPB Q1H [facility] Rx#: [id number] metroNIDAZOLE-NS PMX 500 100 mg In Saline 1 100ml.bag @ 100 mls/hr IVPB Q6H [facility] Rx#:[id number] Intake, IV Titration 5711.211 143.791 67.730 Amount Dextrose 5% in Water 1, 300 000 ml @ 150 mls/hr IV . Q7H40M [facility] with Sodium Bicarb (1 Meq/ml) 150 ml Rx#:[id number] Norepinephrine 32 mg In 40.211 82.502 67.730 Sodium Chloride 0.9% 218 ml @ 0.03 MCG/KG/MIN 0. 778 mls/hr IV .Q24H [facility] Rx#:[id number] Piperacillin-Tazobactam 3 100 .375 gm In Sodium Chloride 0.9% 100 ml @ 25 mls/hr IVPB Q8HR [facility] Rx# :[id number] Sodium Chloride 0.9% 1, 150 000 ml @ 75 mls/hr IV . [id number] [facility] Rx#:[id number] Sodium Chloride 0.9% 500 4000 ml 500 ml @ 999 mls/hr IV .Q31M [facility] Rx#:[id number] Sodium Chloride 0.9% 500 1000 ml 500 ml @ 999 mls/hr IV .Q31M [facility] Rx#:[id number] metroNIDAZOLE-NS PMX 500 100 mg In Saline 1 100ml.bag @ 100 mls/hr IVPB Q6H [facility] Rx#:[id number] propofoL 1,000 mg In 21.000 61.289 Empty Bag 1 bag @ 15 MCG/ KG/MIN 4.98 mls/hr IV . Q20H5M [facility] Rx#:[id number] Output: Gastric Drainage 400 Drainage 170 40 Left Lower 170 Left Lower Abdomen 40 Urine 220 120 225 Other: Voiding Method Indwelling Catheter Indwelling Catheter Indwelling Catheter Weight 70.4 kg ABP, PAP, CO, CI - Last 8 Hours Arterial Blood Pressure 105/59 Arterial Blood Pressure 99/57 Arterial Blood Pressure 108/60 Arterial Blood Pressure 109/60 Arterial Blood Pressure 109/61 Arterial Blood Pressure 110/60 Arterial Blood Pressure 115/63 Arterial Blood Pressure 116/62 Arterial Blood Pressure 110/60 Arterial Blood Pressure 107/60 Arterial Blood Pressure 108/60 Arterial Blood Pressure 100/59 Arterial Blood Pressure 110/62 Arterial Blood Pressure 100/60 Arterial Blood Pressure 107/62 Arterial Blood Pressure 105/60 Arterial Blood Pressure 110/62 Arterial Blood Pressure 106/62 Arterial Blood Pressure 108/61 Arterial Blood Pressure 109/62 Arterial Blood Pressure 86/57 Arterial Blood Pressure 107/59 Arterial Blood Pressure 107/58 Arterial Blood Pressure 104/57 Arterial Blood Pressure 102/62 Arterial Blood Pressure 93/59 Arterial Blood Pressure 94/59 GENERAL DESCRIPTION: Middle-aged female intubated on the vent HEENT: Shows Pallor , no scleral icterus. Oral mucous membrane is dry. NECK: Trachea central, no thyromegaly. LUNGS: Unlabored breathing. Decreased breath sound the bases HEART: S1, S2, regular rate and rhythm. No loud murmur ABDOMEN: Soft, no tenderness EXTREMITIES: No edema of feet. SKIN: No rash, no masses palpable. NEUROLOGICAL: The patient is intubated on the vent Results CBC & Chem 7: 06/07/23 04:20 06/07/23 04:20 Labs: Abnormal Lab Results - Last 24 Hours (Table) 05/27/23 05/27/23 05/27/23 Range/Units 16:07 21:00 21:00 WBC 2.8 L (3.8-10.6) k/uL RBC 3.67 L (3.80-5.40) m/uL Hgb 10.6 L (11.4-16.0) gm/dL Hct 33.4 L (34.0-46.0) % RDW 16.5 H (11.5-15.5) % Neutrophils # (Manual) 0.90 L (1.3-7.7) k/uL Lymphocytes # (Manual) 0.50 L (1.0-4.8) k/uL Metamyelocytes # (Man) 0.25 H (0) k/uL ABG pH 7.12 L* (7.35-7.45) ABG pCO2 48 H (35-45) mmHg ABG pO2 >400 H (83-108) mmHg ABG HCO3 16 L (21-25) mmol/L ABG Total CO2 17 L (19-24) mmol/L ABG O2 Saturation 99.1 H (94-97) % Chloride 114 H (98-107) mmol/L Carbon Dioxide 11 L (22-30) mmol/L BUN 40 H (7-17) mg/dL Creatinine 1.57 H (0.52-1.04) mg/dL Glucose 125 H (74-99) mg/dL POC Glucose (mg/dL) (70-110) mg/dL Plasma Lactic Acid José Miguel (0.7-2.0) mmol/L Calcium 5.6 L* (8.4-10.2) mg/dL Ionized Calcium Ines (4.5-5.3) mg/dL Magnesium (1.6-2.3) mg/dL AST 74 H (14-36) U/L Alkaline Phosphatase 35 L (38-126) U/L Total Protein 3.8 L (6.3-8.2) g/dL Albumin 2.0 L (3.5-5.0) g/dL 05/27/23 05/28/23 05/28/23 Range/Units 21:14 04:43 04:43 WBC (3.8-10.6) k/uL RBC 3.63 L (3.80-5.40) m/uL Hgb 10.6 L (11.4-16.0) gm/dL Hct 32.7 L (34.0-46.0) % RDW 16.5 H (11.5-15.5) % Neutrophils # (Manual) (1.3-7.7) k/uL Lymphocytes # (Manual) 0.31 L (1.0-4.8) k/uL Metamyelocytes # (Man) 0.26 H (0) k/uL ABG pH (7.35-7.45) ABG pCO2 (35-45) mmHg ABG pO2 (83-108) mmHg ABG HCO3 (21-25) mmol/L ABG Total CO2 (19-24) mmol/L ABG O2 Saturation (94-97) % Chloride 110 H (98-107) mmol/L Carbon Dioxide 17 L (22-30) mmol/L BUN 40 H (7-17) mg/dL Creatinine 1.67 H (0.52-1.04) mg/dL Glucose 163 H (74-99) mg/dL POC Glucose (mg/dL) (70-110) mg/dL Plasma Lactic Acid José Miguel 3.4 H* (0.7-2.0) mmol/L Calcium 5.9 L* (8.4-10.2) mg/dL Ionized Calcium Ines (4.5-5.3) mg/dL Magnesium 1.3 L (1.6-2.3) mg/dL AST (14-36) U/L Alkaline Phosphatase (38-126) U/L Total Protein (6.3-8.2) g/dL Albumin (3.5-5.0) g/dL 05/28/23 05/28/23 05/28/23 Range/Units 06:00 07:04 12:07 WBC (3.8-10.6) k/uL RBC (3.80-5.40) m/uL Hgb (11.4-16.0) gm/dL Hct (34.0-46.0) % RDW (11.5-15.5) % Neutrophils # (Manual) (1.3-7.7) k/uL Lymphocytes # (Manual) (1.0-4.8) k/uL Metamyelocytes # (Man) (0) k/uL ABG pH 7.32 L (7.35-7.45) ABG pCO2 (35-45) mmHg ABG pO2 120 H (83-108) mmHg ABG HCO3 19 L (21-25) mmol/L ABG Total CO2 (19-24) mmol/L ABG O2 Saturation 98.0 H (94-97) % Chloride (98-107) mmol/L Carbon Dioxide (22-30) mmol/L BUN (7-17) mg/dL Creatinine (0.52-1.04) mg/dL Glucose (74-99) mg/dL POC Glucose (mg/dL) 169 H (70-110) mg/dL Plasma Lactic Acid José Miguel (0.7-2.0) mmol/L Calcium (8.4-10.2) mg/dL Ionized Calcium Ines 3.6 L (4.5-5.3) mg/dL Magnesium (1.6-2.3) mg/dL AST (14-36) U/L Alkaline Phosphatase (38-126) U/L Total Protein (6.3-8.2) g/dL Albumin (3.5-5.0) g/dL Microbiology - Last 24 Hours (Table) 05/26/23 22:39 Blood Culture Gram Stain - Preliminary Blood Blood Culture - Preliminary Gram Neg Bacilli Assessment and Plan (1) Peritonitis Status: Acute Code(s): K65.9 - PERITONITIS, UNSPECIFIED SNOMED Code(s): 33836524 (2) Sepsis Status: Acute Code(s): A41.9 - SEPSIS, UNSPECIFIED ORGANISM SNOMED Code(s): 07171991 Plan: 1patient with a septic shock secondary to perforated colorectal anastomosis and bowel ischemia this patient evidence of marginal improvement status post extensive surgery we will need to cover for detailed gram-negative the likely pathogen [id number] bacteremia source likely abdominal with ID sensitivities pending 3-we will keep the patient on Zosyn 3.375 g every hour while waiting for the culture to finalize Overall prognosis is still guarded we will follow on clinical condition and cultures to further adjust medication if needed Thank you for this consultation we will follow the patient along with you Dictation was produced using [employer] dictation software. please excuse any grammatical, word or spelling errors. Time with Patient: Greater than 30
[2023-05-29] MEDS: PIPERACILLIN-TAZOBACTAM 3.375 GM in SODIUM CHLORIDE 0.9% 100 ML IVPB SCH ×4 (00:02→23:59)
[2023-05-29] MEDS: IPRATROPIUM-ALBUTEROL 3 ML NEB INHALATION SCH ×6 (03:39→23:56)
[2023-05-29] MEDS: VASOPRESSIN 60 UNIT in SODIUM CHLORIDE 0.9% 150 ML IV SCH (04:00)
[2023-05-29 04:24] LABS: Anisocytosis Slight; HCT 29.5 % (34.0-46.0); HGB 9.7 gm/dL (11.4-16.0); MCHC 32.8 g/dL (31.0-37.0); MCV 88.5 fL (80.0-100.0); Mean Platelet Volume 10.4; Platelet Count 89 k/uL (150-450); RBC 3.33 m/uL (3.80-5.40); RDW 16.7 % (11.5-15.5); WBC 7.1 k/uL (3.8-10.6)
[2023-05-29 05:02] LABS: African American GFR (CKD) 39 (>60 ml/min/1.73 sqM); Anion Gap 11 mmol/L; Blood Urea Nitrogen 41 mg/dL (7-17); Carbon Dioxide 24 mmol/L (22-30); Chloride 100 mmol/L (98-107); Glucose 161 mg/dL (74-99); Non-African American GFR(CKD) 34 (>60 ml/min/1.73 sqM); Potassium 3.2 mmol/L (3.5-5.1); Sodium 135 mmol/L (137-145)
[2023-05-29 05:27] LABS: Band Neutrophils % 6 %; Lymphocytes # (M) 0.36 k/uL (1.0-4.8); Monocytes # (M) 0.28 k/uL (0-1.0); Neutrophils % (M) 85 %; Nucleated Red Blood Cells 0 /100 WBC (0-0); Total Cells Counted 100
[2023-05-29 05:28] LABS: Dohle Bodies Present; Toxic Granulation Present; Toxic Vacuolation Present
[2023-05-29 05:54] LABS: ABG HCO3 27 mmol/L (21-25); ABG Oxygen Saturation 98.8 % (94-97); ABG PCO2 36 mmHg (35-45); ABG PH 7.49 (7.35-7.45); ABG PO2 151 mmHg (83-108); ABG TCO2 28 mmol/L (19-24); Allen Test Performed? Yes
[2023-05-29] MEDS: metroNIDAZOLE-NS PMX 500 MG in SALINE 1 100ML.BAG IVPB SCH ×4 (06:00→23:15)
[2023-05-29] MEDS: POTASSIUM CHLORIDE 20 MEQ in WATER FOR INJECTION 1 100ML.BAG IVPB SCH ×2 (08:15→08:16)
[2023-05-29] MEDS: DEXTROSE 5% IN WATER 1,000 ML with SODIUM BICARB (1 MEQ/ML) 150 ML IV SCH (08:16)
[2023-05-29] MEDS: PANTOPRAZOLE 40 MG/10 ML VIAL IV SCH (08:16)
[2023-05-29] MEDS: CHLORHEXIDINE GLUCONATE 15 ML CUP MUCOUS MEM SCH ×2 (08:16→20:11)
--- NOTE | 2023-05-29 08:40 | XR ---
EXAMINATION TYPE: XR chest 1V portable DATE OF EXAM: 05/29/2023 Comparison: 05/28/2023 Clinical History: 63-year-old female Tube placement Findings: Heart normal size. Atherosclerotic arch calcifications. Mild hyperinflation and mild interstitial pro minence. Patchy left basilar opacity. Trace left pleural effusion. Left IJ CVC tip at the lower SVC. ET tube tip is satisfactory. Impression: 1. COPD. 2. Similar patchy left basilar atelectasis and/or infiltrate and possible trace left effusion.
--- NOTE | 2023-05-29 08:48 | P.PN ---
Subjective Progress Note Date: 05/29/23 Principal diagnosis: Colon perforation Patient remains in the ICU on the ventilator. Patient remains on high-dose pressors that have not changed in dosing. Some mottling of the lower extremities and abdominal wall are noted. White blood cell count 7.1 hemoglobin 9.7. She is afebrile. Ostomy is pink. No significant output. Nasogastric output remains elevated. Objective - Vital Signs Vital signs: Vital Signs Temp 97.8 F 05/29/23 04:00 Pulse 87 05/29/23 08:18 Resp 26 H 05/29/23 07:00 BP 99/60 05/27/23 08:57 Pulse Ox 97 05/29/23 06:30 FiO2 40 05/29/23 08:15 Intake & Output 05/28/23 05/29/23 05/29/23 18:59 06:59 18:59 Intake Total 3072.752 2782.125 176 Output Total 815 480 45 Balance 2257.752 2302.125 131 Intake: IV 2912 2512 176 0.9 NS KVO 240 240 20 ARTERIAL LINE & CVP 72 72 6 Calcium Gluconate in NaCl 100 2 gm In Saline 1 100ml. bag @ 100 mls/hr IVPB ONCE ONE Rx#:[id number] Dextrose 5% in Water 1, 1800 1800 150 000 ml @ 150 mls/hr IV . Q7H40M [facility] with Sodium Bicarb (1 Meq/ml) 150 ml Rx#:[id number] Magnesium Sulfate-D5w Pmx 400 1 gm In Dextrose/Water 1 100ml.bag @ 100 mls/hr IVPB Q1H [facility] Rx#: [id number] Piperacillin-Tazobactam 3 100 100 .375 gm In Sodium Chloride 0.9% 100 ml @ 25 mls/hr IVPB Q8HR [facility] Rx# :[id number] Potassium Chloride 20 meq 100 In Water For Injection 1 100ml.bag @ 50 mls/hr IVPB Q2H [facility] Rx#: [id number] metroNIDAZOLE-NS PMX 500 200 200 mg In Saline 1 100ml.bag @ 100 mls/hr IVPB Q6H [facility] Rx#:[id number] Intake, IV Titration 160.752 270.125 Amount Norepinephrine 32 mg In 91.300 61.912 Sodium Chloride 0.9% 218 ml @ 0.03 MCG/KG/MIN 0. 778 mls/hr IV .Q24H [facility] Rx#:[id number] Vasopressin 60 unit In 130.433 Sodium Chloride 0.9% 150 ml @ 0.03 UNITS/MIN 4.59 mls/hr IV .Q24H [facility] Rx#: [id number] propofoL 1,000 mg In 69.452 77.780 Empty Bag 1 bag @ 15 MCG/ KG/MIN 4.98 mls/hr IV . Q20H5M [facility] Rx#:[id number] Output: Gastric Drainage 400 Drainage 60 20 15 Left Lower Abdomen 60 20 15 Urine 355 460 30 Other: Voiding Method Indwelling Catheter Indwelling Catheter ABP, PAP, CO, CI - Last Documented Arterial Blood Pressure 104/59 - Exam Abdomen: Soft, mild distention, mild abdominal wall edema, some mottling of the skin, suction dressing in place, ostomy pink - Labs CBC & Chem 7: 05/29/23 03:50 05/29/23 03:50 Labs: Abnormal Lab Results - Last 24 Hours (Table) 05/28/23 05/28/23 05/28/23 Range/Units 04:43 06:00 12:07 RBC (3.80-5.40) m/uL Hgb (11.4-16.0) gm/dL Hct (34.0-46.0) % RDW (11.5-15.5) % Plt Count (150-450) k/uL Lymphocytes # (Manual) 0.31 L (1.0-4.8) k/uL Metamyelocytes # (Man) 0.26 H (0) k/uL ABG pH (7.35-7.45) ABG pO2 (83-108) mmHg ABG HCO3 (21-25) mmol/L ABG Total CO2 (19-24) mmol/L ABG O2 Saturation (94-97) % Sodium (137-145) mmol/L Potassium (3.5-5.1) mmol/L BUN (7-17) mg/dL Creatinine (0.52-1.04) mg/dL Glucose (74-99) mg/dL POC Glucose (mg/dL) 169 H (70-110) mg/dL Calcium (8.4-10.2) mg/dL Ionized Calcium Ines 3.6 L (4.5-5.3) mg/dL 05/28/23 05/29/23 05/29/23 Range/Units 16:00 03:50 03:50 RBC 3.33 L (3.80-5.40) m/uL Hgb 9.7 L (11.4-16.0) gm/dL Hct 29.5 L (34.0-46.0) % RDW 16.7 H (11.5-15.5) % Plt Count 89 L (150-450) k/uL Lymphocytes # (Manual) 0.36 L (1.0-4.8) k/uL Metamyelocytes # (Man) (0) k/uL ABG pH (7.35-7.45) ABG pO2 (83-108) mmHg ABG HCO3 (21-25) mmol/L ABG Total CO2 (19-24) mmol/L ABG O2 Saturation (94-97) % Sodium 135 L (137-145) mmol/L Potassium 3.2 L (3.5-5.1) mmol/L BUN 41 H (7-17) mg/dL Creatinine 1.59 H (0.52-1.04) mg/dL Glucose 161 H (74-99) mg/dL POC Glucose (mg/dL) (70-110) mg/dL Calcium 5.9 L* 6.0 L* (8.4-10.2) mg/dL Ionized Calcium Ines (4.5-5.3) mg/dL 05/29/23 05/29/23 Range/Units 03:50 05:49 RBC (3.80-5.40) m/uL Hgb (11.4-16.0) gm/dL Hct (34.0-46.0) % RDW (11.5-15.5) % Plt Count (150-450) k/uL Lymphocytes # (Manual) (1.0-4.8) k/uL Metamyelocytes # (Man) (0) k/uL ABG pH 7.49 H (7.35-7.45) ABG pO2 151 H (83-108) mmHg ABG HCO3 27 H (21-25) mmol/L ABG Total CO2 28 H (19-24) mmol/L ABG O2 Saturation 98.8 H (94-97) % Sodium (137-145) mmol/L Potassium (3.5-5.1) mmol/L BUN (7-17) mg/dL Creatinine (0.52-1.04) mg/dL Glucose (74-99) mg/dL POC Glucose (mg/dL) (70-110) mg/dL Calcium (8.4-10.2) mg/dL Ionized Calcium Ines 3.7 L (4.5-5.3) mg/dL Microbiology - Last 24 Hours (Table) 05/27/23 14:52 Gram Stain - Preliminary Peritoneal Fluid 05/27/23 17:03 Gram Stain - Preliminary Sputum 05/26/23 22:39 Blood Culture Gram Stain - Preliminary Blood Blood Culture - Preliminary Gram Neg Bacilli Assessment and Plan (1) Pneumoperitoneum Narrative/Plan: 63-year-old female with perforation at the anastomosis site. Patient remains critical at this time. Continue optimization and support by ICU services. Hold tube feeds for now. Consider TPN if prolonged nothing by mouth state. Current Visit: Yes Status: Acute Code(s): K66.8 - OTHER SPECIFIED DISORDERS OF PERITONEUM SNOMED Code(s): 19427285
[2023-05-29] MEDS: HEPARIN SODIUM,PORCINE 5,000 UNIT/ML 1 ML VIAL SQ SCH (10:43)
--- NOTE | 2023-05-29 10:46 | P.PN ---
Subjective Progress Note Date: 05/29/23 This is a 63-year-old female patient is currently being seen in the intensive care unit following abdominal surgery. The patient presented to the hospital because of abdominal pain and surgical consultation was obtained as the patient was found to have pneumoperitoneum. The patient had a CAT scan of the abdomen and pelvis that was done 05/26/2023 and the patient was found to have large pneumoperitoneum, large fecal bolus in the rectum. Fecal material was also seen in the sigmoid colon. There was evidence of cholelithiasis and ascites. Based on those findings, the patient was taken to the operating room today and the patient was given an LAD, subtotal colectomy, partial proctectomy and and il eostomy and open fecal decompression drainage of fecal peritonitis and left also also oophprectomy and salpingectomy. Postop, the patient was brought into the intensive care unit. She has already received a total of 5 L of IV fluids. Most recent BP is 81/50. The patient is also on pressors and norepinephrine is running at 0.25 mcg/kg/m. The patient has improved in her urine output which is producing approximately 40 mL an hour. She is fully sedated on propofol which is running at 50 mcg/kg/m. She is, comfortable and symptoms of the mechanical ventilator. I reviewed the initial blood gas that showed a pH of 7.12 with a pCO2 of 48 and a pO2 of more than 400. Subsequently, the patient was placed on assist-control mode at the rate of 26, tidal volume of 400 and FiO2 has been weaned down to 40% and she is currently on a PEEP of 5. The chest x-ray that was done following her abdominal surgery showed adequate positioning of 82. There is no evidence of any acute abnormalities. She has a left IJ triple-lumen catheter in place. The patient had evidence of renal failure, likely acute due to BUN of 47 and a creatinine of 1.78. She also has a mild anion gap metabolic acidosis. The lactic acid level was 2.7. Calcium level was low at 6.3. Serum albumin was 2.6 with a total protein of 4.8. The white cell cause of 3.2 with a hemoglobin of 11.4. She has a NG tube in place. Output from the NG is minimal are brown. Her white suppositive 3.2 with a hemoglobin of 11.4. She is currently covered with IV Zosyn and Flagyl. She was ordered started on a bicarb infusion. Note that the patient has had multiple abdominal surgeries in the past. She has undergone a previous right and left colectomy with end colostomy in September 2022 and subsequent reversal of the colostomy. She has COPD, hypothyroidism and she is a chronic smoker. The patient has had previous episodes of small bowel obstruction and large bowel obstruction. She suffers from chronic constipation. She is status post colectomy and colostomy for chronic thickened impaction approximately 9 months ago. She underwent subsequent reversal approximately 4 months ago but colostomy. On today's evaluation of a 2022, the patient is being seen for a follow-up. She is still doing very poor. On today's evaluation, the skin over the abdominal wall and the lower extremities are extensively mottled, a sign of tissue hypoperfusion related to sepsis. The patient is still on a mechanical ventilator. This morning, she is on propofol running at 25 mcg/kg/m. She is synchronous with mechanical ventilator. She is on assist-control mode at a rate of 26, tidal volume of 400, FiO2 of 40% and a PEEP is currently at 5. Blood gas shows improvement in the acid base status. PH is up to 7.32 with a pCO2 of 36 a nd pO2 120 and this was gas was done FiO2 of 40%. Chest x-ray from today shows adequate expansion of both lungs. The patient has developed some left-sided pleural effusion/atelectasis. ET tube is in good location. The patient has a left IJ triple-lumen catheter in place. Orogastric tube was also in good location. The output from the OG is green and in the order of 300 mL over the past 18 hours. Hemodynamically, the patient is doing poor. She is on fluids and the patient got resuscitated with a total of 7 L of IV fluids yesterday in addition to IV albumin. Currently, she started on norepinephrine running at 0.35 mcg/kg/m. She is also on vasopressin and physiologic dose. She is on a bicarbonate infusion running at 150 mL an hour. She is on IV Zosyn and Flagyl. Urine output is in order of 10-20 mL an hour. PABLO drain is putting out serosanguineous material. Ileostomy has minimal amount of liquidy material in the bag. The stoma is still healthy and viable and there is no signs of necrosis. The patient has a BUN of 40 with a creatinine of 1.6. Sodium is at 139. Lactic acid level is still elevated at 3.4, calcium is at 5.9, ionized calcium is 3.6, magnesium is at 1.3 and the white cell cause of 4.4 with a hemoglobin of 10.6 and a platelet count of 161. She is nothing by mouth. She is afebrile for now. 05/29/2023, patient remains intubated on a mechanical ventilator. She is still doing very poorly. She continues to have ischemic changes in her lower extremities bilaterally and there is extensive skin mottling in her lower extremity especially on the right and some on the left and the abdominal wall is also monitoring. The patient has no pulses in her popliteus in her lower extremity is bilaterally. Femoral pulses are present. Her extremity is a cold. Meanwhile, she remains on pressors. On today's evaluation, she is on a norepinephrine running at 0.12 mcg/kg/m and she is also on vasopressin physiologic dose. She is in a sinus rhythm. Most recent BP is 96/64. She remains on a mechanical ventilator. She is on assist-control mode rate of 26, tidal volume of 400, FiO2 of 40% and a PEEP of 5. Her blood gas from today shows a pH of 7.49 with a pCO2 of 36 and pO2 of 151. Her chest x-ray from today is showing some minimal atelectatic changes in the left lung base. Otherwise the x-ray findings are normal. Orogastric and orotracheal tube are both in place. She is on propofol which is running at 10 mcg/kg/m. She is slightly more arousable compared to yesterday and she emesis to deep painful stimulation. Ileostomy is viable. No significant output. Wound VAC is in place. PABLO drain is in her left lower quadrant and the output is serosanguineous, nonbloody, nonpurulent. The white cell cause of 7.1, hemoglobin is 9.7, platelet count is at 89 which is up compared to yesterday. At the same time, her sodium level is at 135, serum bicarb is normalized it's up to 24 with a potassium level of 3.2. Creatinine is slightly improved compared to yesterday is down to 1.59. Calcium level is still low and ionized calcium is at 3.7. Magnesium is at 2.0. Glucose is at 161. BUN is at 41 with a creatinine of 1.59. The overall fluid balance over the past 24 hours has been +4.5 L. CVP is currently at 12-14. Objective - Vital Signs Vital signs: Vital Signs Temp 97.5 F L 05/29/23 08:00 Pulse 90 05/29/23 10:00 Resp 26 H 05/29/23 10:00 BP 99/60 05/27/23 08:57 Pulse Ox 96 05/29/23 09:00 FiO2 40 05/29/23 08:15 Intake & Output 05/28/23 05/29/23 05/29/23 18:59 06:59 18:59 Intake Total 3072.752 2782.125 971.904 Output Total 815 480 175 Balance 2257.752 2302.125 796.904 Intake: IV 2912 2512 904 0.9 NS KVO 240 240 80 ARTERIAL LINE & CVP 72 72 24 Calcium Gluconate in NaCl 100 2 gm In Saline 1 100ml. bag @ 100 mls/hr IVPB ONCE ONE Rx#:[id number] Dextrose 5% in Water 1, 1800 1800 600 000 ml @ 150 mls/hr IV . Q7H40M [facility] with Sodium Bicarb (1 Meq/ml) 150 ml Rx#:[id number] Magnesium Sulfate-D5w Pmx 400 1 gm In Dextrose/Water 1 100ml.bag @ 100 mls/hr IVPB Q1H [facility] Rx#: [id number] Piperacillin-Tazobactam 3 100 100 100 .375 gm In Sodium Chloride 0.9% 100 ml @ 25 mls/hr IVPB Q8HR [facility] Rx# :[id number] Potassium Chloride 20 meq 100 100 In Water For Injection 1 100ml.bag @ 50 mls/hr IVPB Q2H [facility] Rx#: [id number] metroNIDAZOLE-NS PMX 500 200 200 mg In Saline 1 100ml.bag @ 100 mls/hr IVPB Q6H [facility] Rx#:[id number] Intake, IV Titration 160.752 270.125 67.904 Amount Norepinephrine 32 mg In 91.300 61.912 Sodium Chloride 0.9% 218 ml @ 0.03 MCG/KG/MIN 0. 778 mls/hr IV .Q24H [facility] Rx#:[id number] Vasopressin 60 unit In 130.433 Sodium Chloride 0.9% 150 ml @ 0.03 UNITS/MIN 4.59 mls/hr IV .Q24H [facility] Rx#: [id number] propofoL 1,000 mg In 69.452 77.780 67.904 Empty Bag 1 bag @ 15 MCG/ KG/MIN 4.98 mls/hr IV . Q20H5M [facility] Rx#:[id number] Tube Feeding 0 Other 0 Output: Gastric Drainage 400 50 Drainage 60 20 15 Left Lower Abdomen 60 20 15 Urine 355 460 110 Other: Voiding Method Indwelling Catheter Indwelling Catheter Indwelling Catheter ABP, PAP, CO, CI - Last Documented Arterial Blood Pressure 81/59 - Exam frail and currently fully sedated on propofol. Orogastric and orotracheal tube are both in place. Head exam was generally normal. There was no scleral icterus or corneal arcus. Mucous membranes were moist. The patient has a left larger triple-lumen catheter in place. The CVP is at 10.-14 Neck was supple and without jugular venous distension, thyromegaly, or carotid bruits. Carotids were easily palpable bilaterally. There was no adenopathy. The patient has an NG tube and a triple-lumen catheter in her left IJ. Lungs were clear to auscultation and percussion, and with normal diaphragmatic excursion. No wheezes or rales were noted. Cardiac exam revealed the PMI to be normally situated and sized. The rhythm was regular and no extrasystoles were noted during several minutes of auscultation. The first and second heart sounds were normal and physiologic splitting of the second heart sound was noted. There were no murmurs, rubs, clicks, or gallops. Examination of the abdomen shows a mid abdominal incision with a wound VAC. The patient is a PABLO drain in her left lower quadrant. The patient was given a ileostomy on the right and the tissue is viable at this point in time. The skin over the abdominal wall is quite mottled. No output. Bowel sounds are absent. No direct distention. No direct tenderness. No rebound tenderness. No guarding. Examination of the extremities revealed absent pulses in lower extremities There was no cyanosis, clubbing or edema., The patient has a left femoral arterial line and she has also Otero catheter in place. Mottling of the skin in lower extremities mottling of the right lower extremity more than the left.. Extremities are cold and clammy. Neurologically, the patient is sedated. - Labs CBC & Chem 7: 05/29/23 03:50 05/29/23 03:50 Labs: Abnormal Lab Results - Last 24 Hours (Table) 05/28/23 05/28/23 05/29/23 Range/Units 12:07 16:00 03:50 RBC (3.80-5.40) m/uL Hgb (11.4-16.0) gm/dL Hct (34.0-46.0) % RDW (11.5-15.5) % Plt Count (150-450) k/uL Lymphocytes # (Manual) (1.0-4.8) k/uL ABG pH (7.35-7.45) ABG pO2 (83-108) mmHg ABG HCO3 (21-25) mmol/L ABG Total CO2 (19-24) mmol/L ABG O2 Saturation (94-97) % Sodium 135 L (137-145) mmol/L Potassium 3.2 L (3.5-5.1) mmol/L BUN 41 H (7-17) mg/dL Creatinine 1.59 H (0.52-1.04) mg/dL Glucose 161 H (74-99) mg/dL POC Glucose (mg/dL) 169 H (70-110) mg/dL Calcium 5.9 L* 6.0 L* (8.4-10.2) mg/dL Ionized Calcium Ines (4.5-5.3) mg/dL 05/29/23 05/29/23 05/29/23 Range/Units 03:50 03:50 05:49 RBC 3.33 L (3.80-5.40) m/uL Hgb 9.7 L (11.4-16.0) gm/dL Hct 29.5 L (34.0-46.0) % RDW 16.7 H (11.5-15.5) % Plt Count 89 L (150-450) k/uL Lymphocytes # (Manual) 0.36 L (1.0-4.8) k/uL ABG pH 7.49 H (7.35-7.45) ABG pO2 151 H (83-108) mmHg ABG HCO3 27 H (21-25) mmol/L ABG Total CO2 28 H (19-24) mmol/L ABG O2 Saturation 98.8 H (94-97) % Sodium (137-145) mmol/L Potassium (3.5-5.1) mmol/L BUN (7-17) mg/dL Creatinine (0.52-1.04) mg/dL Glucose (74-99) mg/dL POC Glucose (mg/dL) (70-110) mg/dL Calcium (8.4-10.2) mg/dL Ionized Calcium Ines 3.7 L (4.5-5.3) mg/dL Microbiology - Last 24 Hours (Table) 05/27/23 14:52 Gram Stain - Preliminary Peritoneal Fluid 05/27/23 17:03 Gram Stain - Preliminary Sputum 05/26/23 22:39 Blood Culture Gram Stain - Preliminary Blood Blood Culture - Preliminary Gram Neg Bacilli Assessment and Plan Plan: acute pneumoperitoneum. The patient is post exploratory laparotomy. The patient underwent extensive subtotal colectomy, partial proctectomy, and ileostomy, drainage of the fecal peritonitis and and open fecal be compaction and left oophorectomy and salpingectomy, The patient is a PABLO drain in the left lower quadrant and the patient has an ileostomy at this point. The patient is postop day #2 Fecal peritonitis with secondary sepsis secondary to above Septic shock secondary to above, the patient denies profoundly hypotensive, requiring pressors and she is also on broad-spectrum antibiotics. The patient is on a combination of norepinephrine and vasopressin. CVP is currently at 10- 14. Aggressively resuscitated with IV fluids, and the patient is still on norepinephrine and vasopressin. Norepinephrine is still running at 0.12 g /kilogram per minutes. Vasopressin is a physiologic dose. Absent pulses in her lower extremities with significant skin mottling, likely secondary to sepsis. Underlying vascular insult/acute vascular occlusion cannot be completely ruled out. History of chronic constipation with previous right and left colectomy and colostomy with subsequent reversal Acute hypotension, likely secondary to abdominal sepsis, currently on a combination of fluids and pressors and antibiotics. Acute kidney injury secondary to above,, creatinine is at 1.5, urine output is in order of 30 mL an hour. Mild lactic acidosis, recovered COPD/chronic smoker Acute respiratory failure, hypoxic and hypercapnic in nature. The patient was kept intubated on a mechanical ventilator following her surgery and her respiratory failure is further contributed by her abdominal sepsis and abdominal surgery. Chronic constipation Previous history of appendiceal carcinoma, resected Remote history of pulmonary embolism on no anticoagulants and this occurred back in 2017. History of cervical C3 stenosis with degenerative disc disease Osteoarthritis Chronic debility and the patient is a assisted resident Acute thrombocytopenia, likely secondary to sepsis. Drug induced components is also to be considered. Plan Give the patient sedated propofol Stop the bicarb infusion Stop heparin Drop respiratory rate down to 20 Obtain a vascular surgery consultation regarding the absence of pulses in lower extremities. Pulses are not obtained by Doppler signal or examination Continue pressors and the patient is currently on norepinephrine and vasopressin Monitor hemodynamics and blood pressure Continue Zosyn and Flagyl Monitor the output from the PABLO drain Calcium and magnesium level needs to be replaced IV Protonix Subcu heparin Bronchodilators Keep the patient nothing by mouth for now NG tube in place Check a coagulation profile to rule out DIC and his PT/PTT INR d-dimer and fibrinogen and monitor the platelet count We'll continue to follow. Condition is critical. The patient remains profoundly septic. We'll continue to follow. Condition is critical. His evaluation was done in more than 30 minutes.
[2023-05-29] MEDS: HYDROmorphone 1 MG/ML 1 ML SYRINGE IVP PRN ×3 (11:11→20:11)
[2023-05-29 11:20] LABS: Glucose,Whole Blood 112 mg/dL (70-110)
[2023-05-29 12:05] LABS: INR 1.1 (<1.2); Partial Thromboplastin Time 39.6 sec (22.0-30.0); Prothrombin Time 11.3 sec (9.0-12.0)
[2023-05-29] MEDS ORDERED: POTASSIUM CHLORIDE 20 MEQ in WATER FOR INJECTION 1 100ML.BAG IVPB STA (14:12)
--- NOTE | 2023-05-29 14:56 | P.PN ---
Subjective Progress Note Date: 05/29/23 Follow-up for acute kidney injury. Intubated, on pressors. Urine output 1.2 L in the last 24 hours. Objective - Vital Signs Vital signs: Vital Signs Temp 98 F 05/29/23 12:00 Pulse 102 H 05/29/23 14:30 Resp 20 05/29/23 14:30 BP 99/60 05/27/23 08:57 Pulse Ox 99 05/29/23 14:30 FiO2 40 05/29/23 12:00 Intake & Output 05/28/23 05/29/23 05/29/23 18:59 06:59 18:59 Intake Total 3072.752 2782.125 1316.758 Output Total 815 480 285 Balance 2257.752 2302.125 1031.758 Intake: IV 2912 2512 1108 0.9 NS KVO 240 240 160 ARTERIAL LINE & CVP 72 72 48 Calcium Gluconate in NaCl 100 2 gm In Saline 1 100ml. bag @ 100 mls/hr IVPB ONCE ONE Rx#:[id number] Dextrose 5% in Water 1, 1800 1800 600 000 ml @ 150 mls/hr IV . Q7H40M [facility] with Sodium Bicarb (1 Meq/ml) 150 ml Rx#:[id number] Magnesium Sulfate-D5w Pmx 400 1 gm In Dextrose/Water 1 100ml.bag @ 100 mls/hr IVPB Q1H [facility] Rx#: [id number] Piperacillin-Tazobactam 3 100 100 100 .375 gm In Sodium Chloride 0.9% 100 ml @ 25 mls/hr IVPB Q8HR [facility] Rx# :[id number] Potassium Chloride 20 meq 100 200 In Water For Injection 1 100ml.bag @ 50 mls/hr IVPB Q2H [facility] Rx#: [id number] metroNIDAZOLE-NS PMX 500 200 200 mg In Saline 1 100ml.bag @ 100 mls/hr IVPB Q6H [facility] Rx#:[id number] Intake, IV Titration 160.752 270.125 208.758 Amount Norepinephrine 32 mg In 91.300 61.912 19.772 Sodium Chloride 0.9% 218 ml @ 0.03 MCG/KG/MIN 0. 778 mls/hr IV .Q24H [facility] Rx#:[id number] Vasopressin 60 unit In 130.433 Sodium Chloride 0.9% 150 ml @ 0.03 UNITS/MIN 4.59 mls/hr IV .Q24H [facility] Rx#: [id number] metroNIDAZOLE-NS PMX 500 100 mg In Saline 1 100ml.bag @ 100 mls/hr IVPB Q6H [facility] Rx#:[id number] propofoL 1,000 mg In 69.452 77.780 88.986 Empty Bag 1 bag @ 15 MCG/ KG/MIN 4.98 mls/hr IV . Q20H5M [facility] Rx#:[id number] Tube Feeding 0 Other 0 Output: Gastric Drainage 400 50 Drainage 60 20 15 Left Lower Abdomen 60 20 15 Urine 355 460 220 Stool 0 Other: Voiding Method Indwelling Catheter Indwelling Catheter Indwelling Catheter ABP, PAP, CO, CI - Last Documented Arterial Blood Pressure 87/58 - Exam No acute distress S1-S2 heard Oral intubation Decreased breath sounds Edema - Labs CBC & Chem 7: 05/29/23 03:50 05/29/23 13:15 Labs: Abnormal Lab Results - Last 24 Hours (Table) 05/28/23 05/29/23 05/29/23 Range/Units 16:00 03:50 03:50 RBC 3.33 L (3.80-5.40) m/uL Hgb 9.7 L (11.4-16.0) gm/dL Hct 29.5 L (34.0-46.0) % RDW 16.7 H (11.5-15.5) % Plt Count 89 L (150-450) k/uL Lymphocytes # (Manual) 0.36 L (1.0-4.8) k/uL APTT (22.0-30.0) sec Fibrinogen (200-500) mg/dL D-Dimer (<0.60) mg/L FEU ABG pH (7.35-7.45) ABG pO2 (83-108) mmHg ABG HCO3 (21-25) mmol/L ABG Total CO2 (19-24) mmol/L ABG O2 Saturation (94-97) % Sodium 135 L (137-145) mmol/L Potassium 3.2 L (3.5-5.1) mmol/L BUN 41 H (7-17) mg/dL Creatinine 1.59 H (0.52-1.04) mg/dL Glucose 161 H (74-99) mg/dL POC Glucose (mg/dL) (70-110) mg/dL Calcium 5.9 L* 6.0 L* (8.4-10.2) mg/dL Ionized Calcium Ines (4.5-5.3) mg/dL 05/29/23 05/29/23 05/29/23 Range/Units 03:50 05:49 11:00 RBC (3.80-5.40) m/uL Hgb (11.4-16.0) gm/dL Hct (34.0-46.0) % RDW (11.5-15.5) % Plt Count (150-450) k/uL Lymphocytes # (Manual) (1.0-4.8) k/uL APTT 39.6 H (22.0-30.0) sec Fibrinogen 558 H (200-500) mg/dL D-Dimer 4.19 H (<0.60) mg/L FEU ABG pH 7.49 H (7.35-7.45) ABG pO2 151 H (83-108) mmHg ABG HCO3 27 H (21-25) mmol/L ABG Total CO2 28 H (19-24) mmol/L ABG O2 Saturation 98.8 H (94-97) % Sodium (137-145) mmol/L Potassium (3.5-5.1) mmol/L BUN (7-17) mg/dL Creatinine (0.52-1.04) mg/dL Glucose (74-99) mg/dL POC Glucose (mg/dL) (70-110) mg/dL Calcium (8.4-10.2) mg/dL Ionized Calcium Ines 3.7 L (4.5-5.3) mg/dL 05/29/23 Range/Units 11:18 RBC (3.80-5.40) m/uL Hgb (11.4-16.0) gm/dL Hct (34.0-46.0) % RDW (11.5-15.5) % Plt Count (150-450) k/uL Lymphocytes # (Manual) (1.0-4.8) k/uL APTT (22.0-30.0) sec Fibrinogen (200-500) mg/dL D-Dimer (<0.60) mg/L FEU ABG pH (7.35-7.45) ABG pO2 (83-108) mmHg ABG HCO3 (21-25) mmol/L ABG Total CO2 (19-24) mmol/L ABG O2 Saturation (94-97) % Sodium (137-145) mmol/L Potassium (3.5-5.1) mmol/L BUN (7-17) mg/dL Creatinine (0.52-1.04) mg/dL Glucose (74-99) mg/dL POC Glucose (mg/dL) 112 H (70-110) mg/dL Calcium (8.4-10.2) mg/dL Ionized Calcium Ines (4.5-5.3) mg/dL Microbiology - Last 24 Hours (Table) 05/27/23 14:52 Gram Stain - Preliminary Peritoneal Fluid Body Fluid Culture - Preliminary Gram Neg Bacilli 05/26/23 22:39 Blood Culture Gram Stain - Final Blood Blood Culture - Final Escherichia coli 05/27/23 17:03 Gram Stain - Preliminary Sputum Sputum Culture - Preliminary Assessment and Plan Assessment: #1 nonoliguric acute kidney injury secondary to ischemic and toxic ATN. -Baseline creatinine 0.8 MG per DL. #2 septic shock secondary to perforated bowel. #3 anion gap metabolic acidosis secondary to acute kidney injury #4 hypocalcemia #5 hypomagnesemia #6 ventilator dependent respiratory failure Plan: #1 renal function stable. #2 replace electrolytes #3 poor candidate for dialysis, monitor renal function closely #4 ICU care
[2023-05-29] MEDS: NOREPINEPHRINE 32 MG in SODIUM CHLORIDE 0.9% 218 ML IV SCH (15:55)
--- NOTE | 2023-05-29 16:05 | P.PN ---
Progress Note - Text Progress Note Date: 05/29/23 - Chief Complaint Acute abdomen - History of Present Illness This is a 63-year-old patient, who had severe ileus of right and left: And underwent right and left colectomy with end colostomy by Dr. Worthington on 09/21/2022. on January 29/2023 underwent exploratory laparotomy with takedown of colostomy and takedown of splenic flexure with partial colectomy and repair of incisional hernia and lysis of adhesions by Dr. Worthington. Following that pat ient had a three-week stay in the hospital for protracted ileus. And finally was discharged on February 25. Patient then presented to the ER on the evening of May 26. Patient presented here from [facility] [place]. Per EMS report patient had a bowel movement for about 3 days. And increasing abdominal discomfort. Patient has remained nonambulatory. Computed tomography scan in the ER showed large pneumoperitoneum. Large fecal bolus of the rectum. Gallstones. Ascites. Patient seen by Dr. Parikh from general surgery.. Patient was taken to the OR for exploratory laboratory yesterday and had subtotal colectomy with partial proctectomy carried out. About 200 mL of pelvic abscess fecal peritonitis was drained. End ileostomy was carried out. Incisional wound VAC prerenal was placed. Left salpingo-oophorectomy was done. Patient continues clean ICU. On the ventilator intubated. FiO2 40 and a PEEP of 5. Drips include IV vasopressor, levo fed, propofol, bicarbonate. No output from the ileostomy bag. 05/29/2023: ICU. IV propofol. FiO2 50 PEEP of 5. Intubated. Remains on IV Zosyn, IV Flagyl. Extremity bilateral skin mottling. Extremities are cold. On IV vasopressin, IV norepinephrine. Sinus rhythm. No output in the ileostomy. Wound VAC in place. Serosanguineous output out of the PABLO drain. Family at bedside. Active Medications Albuterol/Ipratropium (Ipratropium-Albuterol 3 Ml Neb) 3 ml INHALATION RT-Q4H [facility] Last Admin: 05/29/23 15:34 Dose: 3 ml Chlorhexidine Gluconate (Chlorhexidine Gluconate 15 Ml Cup) 15 ml MUCOUS MEM BID [facility] Last Admin: 05/29/23 08:16 Dose: 15 ml Hydromorphone HCl (Hydromorphone 1 Mg/Ml 1 Ml Syringe) 1 mg IVP Q3HR PRN PRN Reason: Moderate to Severe Pain (4-10) Last Admin: 05/29/23 14:33 Dose: 1 mg Piperacillin Sod/Tazobactam (Sod 3.375 gm/ Sodium Chloride) 100 mls @ 25 mls/hr IVPB Q8HR [facility]; Protocol Last Admin: 05/29/23 08:16 Dose: 25 mls/hr Metronidazole 500 mg/ IV (Solution) 100 mls @ 100 mls/hr IVPB Q6H [facility]; Protocol Last Admin: 05/29/23 11:10 Dose: 100 mls/hr Norepinephrine Bitartrate 32 (mg/ Sodium Chloride) 250 mls @ 0.778 mls/hr IV .Q24H [facility]; Protocol Last Titration: 05/29/23 15:28 Dose: 0.12 mcg/kg/min, 3.113 mls/hr Propofol 1,000 mg/ IV Solution 100 mls @ 4.98 mls/hr IV .Q20H5M [facility]; Protocol Last Admin: 05/29/23 14:34 Dose: 15 mcg/kg/min, 4.98 mls/hr Vasopressin 60 unit/ Sodium (Chloride) 153 mls @ 4.59 mls/hr IV .Q24H [facility]; Protocol Last Admin: 05/29/23 04:00 Dose: 0.03 units/min, 4.59 mls/hr Potassium Chloride 20 meq/ IV (Solution) 100 mls @ 50 mls/hr IVPB ONCE STA Stop: 05/29/23 16:11 Last Admin: 05/29/23 14:34 Dose: 50 mls/hr Miscellaneous Information (Potassium Replacement Protocol 1 Each Misc) 1 each MISCELLANE DAILY PRN; Protocol PRN Reason: Per Protocol Miscellaneous Information (Magnesium Replacement Protocol 1 Each Misc) 1 each MISCELLANE DAILY PRN; Protocol PRN Reason: Per Protocol Miscellaneous Information (Phosphorus Replacement Protoco 1 Each Misc) 1 each MISCELLANE DAILY PRN; Protocol PRN Reason: Per Protocol Naloxone HCl (Naloxone 0.4 Mg/Ml 1 Ml Vial) 0.2 mg IV Q2M PRN PRN Reason: Opioid Reversal Ondansetron HCl (Ondansetron 4 Mg/2 Ml Vial) 4 mg IVP Q8HR PRN PRN Reason: Nausea And Vomiting Pantoprazole Sodium (Pantoprazole 40 Mg/10 Ml Vial) 40 mg IV DAILY [facility] Last Admin: 05/29/23 08:16 Dose: 40 mg Past medical history to include: Hypothyroid, osteomyelitis, COPD, left colectomy with end colostomy Social history: Currently at [facility]. Smokes about half a pack a day since age 21, up to February 2023.. Doesn't really walk currently. Physical examination: VITAL SIGNS: 98, 105, 19, 105/65, 99% on the ventilator GENERAL:, In bed, sedated EYES: Pupils equal. Conjunctiva pale HEENT: External appearance of nose and ears normal, oral cavity dry mucous membranes. ET tube. NECK: JVD unable to assess; masses not palpable. HEART: First and second heart sounds are normal; no edema. LUNGS: Respiratory rate increased; decreased breath sounds. ABDOMEN: Soft,, nontender Liver spleen not palpable, no masses palpable. Midline Provena. Left-sided PABLO drain-serosanguineous output. Right-sided ileostomy bag with no stool. PSYCH: Sedated MUSCULOSKELETAL:No Clubbing/cyanosis;muscles-grossly intact. Mottling of the lower extremities. Cold lower extremity. INVESTIGATIONS, reviewed in the clinical context: May 29: White count 7.1 hemoglobin 9.7 platelets 59 potassium 3.2 BUN 41 and creatinine 1.59 05/28/2023: White count 4.4 hemoglobin 10.6 platelets 161 2139 potassium 4.5 BUN 40 creatinine 1.67 bicarb 17 calcium 5.9 ionized calcium 3.6 magnesium 1.3 Previous labs: Creatinine 1.28 on 05/26/2023. 0.77 on 02/25/2023. EKG tracing personally reviewed by me-normal sinus rhythm. P pulmonale. Nonspecific T-wave changes. Chest x-ray film personally reviewed by me-hyperinflation CT abdomen pelvis [May 26] large pneumoperitoneum. Large fecal bolus of the rectum. Fecal debris within the redundant sigmoid colon. Because of the volvulus. Cholelithiasis. Ascites. Assessment and plan: -Acute bowel perforation leading to pneumoperitoneum and septic peritonitis. IV Flagyl. IV Zosyn. -Septic shock from above: Severe, slow to respond IV vasopressin, IV levo fed. -Acute metabolic acidosis multifactorial including renal failure: Better -Acute hypoxic respiratory failure, requiring ventilator support: Slow to respond FiO2 50 and a PEEP of 5. -Exploratory laparotomy: Subtotal colectomy with partial proctectomy; Drainage of pelvic abscess/fecal peritonitis, 200-mL; End ileostomy; Placement of round #19 garfield rodriguez drain; Placement of incisional wound vac, 20-cm, PREVENa; Left salpingo-oophorectomy with Dr. Mariely Parikh on May 27. -Reversal of colostomy in February 2023. Right and left colectomy with end colostomy in September [address] Worthington -Acute postprocedure blood loss anemia, expected from surgery contributing to hypotension: Admission hemoglobin 14.9. -GERD PPI -Chronic medical debility from surgery. Other medical conditions. per F patient has recently been nonambulatory. -Hypothyroid Levothyroxin -COPD in a previous smoker DuoNeb every 4 -Anemia of chronic disease hemoglobin 11.3 Iron deficiency from blood loss. Thank you Dr. Parikh. Discussed with family the bedside Past Medical History Past Medical History: Cancer, COPD, GERD/Reflux, Osteoarthritis (OA), Pulmonary Embolus (PE), Thyroid Disorder Additional Past Medical History / Comment(s): CANCER APPENDIX, COLOSTOMY, HEART MURMUR., STATES PE 2017., CERVICAL STENOSIS WITH HERNIATED DISC., ABD WOUND DIHISENCE., RESIDES AT [facility]. History of Any Multi-Drug Resistant Organisms: MRSA Year Discovered:: 11/24/22 MDRO Source:: ABD WOUND Past Surgical History: Section Additional Past Surgical History / Comment(s): RIGHT AND LEFT COLECTOMY WITH COLOSTOMY., COLONOSCOPY; ostomy reversal/hernia repair/colectomy (01/29/23). Past Anesthesia/Blood Transfusion Reactions: No Reported Reaction Past Psychological History: No Psychological Hx Reported Smoking Status: Current every day smoker Past Alcohol Use History: None Reported Additional Past Alcohol Use History / Comment(s): SMOKES 1/2 PPD, STARTED SMOKING AGE 21. Past Drug Use History: None Reported - Past Family History Mother History Unknown: Yes Family Medical History: No Reported History Medications and Allergies Home Medications Medication Instructions Recorded Confirmed Type Levothyroxine Sodium [Euthyrox] 75 mcg PO DAILY #30 tab 09/17/22 05/26/23 Rx Ipratropium-Albuterol Nebulize 3 ml INHALATION RT-TID PRN 10/04/22 05/26/23 History [Duoneb 0.5 mg-3 mg/3 ml Soln] Omeprazole [PriLOSEC] 20 mg PO DAILY 10/04/22 05/26/23 History Acetaminophen Tab [Tylenol] 325 mg PO Q6HR PRN 01/26/23 05/26/23 History Calcium Carbonate/Vitamin D3 1 tab PO DAILY 01/26/23 05/26/23 History [Calcium 600 mg-Vit D3 5 mcg (200 unit)] Cholecalciferol [Vitamin D3 (25 25 mcg PO DAILY 01/26/23 05/26/23 History Mcg = 1000 Iu)] Pyridoxine HCl (Vitamin B6) 100 mg PO DAILY 01/26/23 05/26/23 History [Vitamin B-6] HYDROcodone/APAP 5-325MG [[place] 1 tab PO Q6HR PRN 3 Days #12 tab 02/25/23 05/26/23 Rx 5-325] Docusate [Colace] 100 mg PO BID 05/26/23 05/26/23 History Folic Acid 0.4 mg PO HS 05/26/23 05/26/23 History Healthshake 1 dose PO TID 05/26/23 05/26/23 History Magnesium Citrate [Citrate of 1.745 gm PO DAILY PRN 05/26/23 05/26/23 History Magnesia] Multivitamins, Thera [Multivitamin 1 tab PO HS 05/26/23 05/26/23 History (formulary)] Psyllium Husk 100% [Metamucil 6 gm PO DAILY 05/26/23 05/26/23 History Packet] Allergies Allergy/AdvReac Type Severity Reaction Status Date / Time No Known Allergies Allergy Verified 05/26/23 17:49
--- NOTE | 2023-05-29 16:32 | P.PN ---
Subjective Progress Note Date: 05/29/23 Principal diagnosis: Sepsis and intra-abdominal abscess Patient is a 63-year-old female with a past medical history significant for COPD PE osteoarthritis patient presented to the hospital 2 days ago for evaluation of abdominal pain, CT abdominal pelvis large pneumoperitoneum with large fecal bolus of the rectum ,patient is status post subtotal colectomy and partial proctectomy. On today's evaluation that is 05/29/2023, the patient remains to be afebrile, the patient still requiring large amount of pressure support maintenance of blood pressure patient remains to be intubated on the vent and FiO2 currently at 40% no significant purulent secretion through the ET or any other changes reported by the nursing staff Objective - Vital Signs Vital signs: Vital Signs Temp 98 F 05/29/23 12:00 Pulse 103 H 05/29/23 15:35 Resp 20 05/29/23 15:30 BP 99/60 05/27/23 08:57 Pulse Ox 99 05/29/23 15:30 FiO2 40 05/29/23 15:34 Intake & Output 05/28/23 05/29/23 05/29/23 18:59 06:59 18:59 Intake Total 3072.752 2782.125 1348.162 Output Total 815 480 310 Balance 2257.752 2302.125 1038.162 Intake: IV 2912 2512 1134 0.9 NS KVO 240 240 180 ARTERIAL LINE & CVP 72 72 54 Calcium Gluconate in NaCl 100 2 gm In Saline 1 100ml. bag @ 100 mls/hr IVPB ONCE ONE Rx#:[id number] Dextrose 5% in Water 1, 1800 1800 600 000 ml @ 150 mls/hr IV . Q7H40M [facility] with Sodium Bicarb (1 Meq/ml) 150 ml Rx#:[id number] Magnesium Sulfate-D5w Pmx 400 1 gm In Dextrose/Water 1 100ml.bag @ 100 mls/hr IVPB Q1H [facility] Rx#: [id number] Piperacillin-Tazobactam 3 100 100 100 .375 gm In Sodium Chloride 0.9% 100 ml @ 25 mls/hr IVPB Q8HR [facility] Rx# :[id number] Potassium Chloride 20 meq 100 200 In Water For Injection 1 100ml.bag @ 50 mls/hr IVPB Q2H [facility] Rx#: [id number] metroNIDAZOLE-NS PMX 500 200 200 mg In Saline 1 100ml.bag @ 100 mls/hr IVPB Q6H [facility] Rx#:[id number] Intake, IV Titration 160.752 270.125 214.162 Amount Norepinephrine 32 mg In 91.300 61.912 25.176 Sodium Chloride 0.9% 218 ml @ 0.03 MCG/KG/MIN 0. 778 mls/hr IV .Q24H [facility] Rx#:[id number] Vasopressin 60 unit In 130.433 Sodium Chloride 0.9% 150 ml @ 0.03 UNITS/MIN 4.59 mls/hr IV .Q24H [facility] Rx#: [id number] metroNIDAZOLE-NS PMX 500 100 mg In Saline 1 100ml.bag @ 100 mls/hr IVPB Q6H [facility] Rx#:[id number] propofoL 1,000 mg In 69.452 77.780 88.986 Empty Bag 1 bag @ 15 MCG/ KG/MIN 4.98 mls/hr IV . Q20H5M [facility] Rx#:[id number] Tube Feeding 0 Other 0 Output: Gastric Drainage 400 50 Drainage 60 20 15 Left Lower Abdomen 60 20 15 Urine 355 460 245 Stool 0 Other: Voiding Method Indwelling Catheter Indwelling Catheter Indwelling Catheter ABP, PAP, CO, CI - Last Documented Arterial Blood Pressure 85/54 - Exam GENERAL DESCRIPTION: Middle-aged female intubated on the vent RESPIRATORY SYSTEM: Unlabored breathing , decreased breath sounds at bases HEART: S1 S2 regular rate and rhythm , ABDOMEN: Soft , no tenderness EXTREMITIES: No edema feet - Labs CBC & Chem 7: 05/29/23 03:50 05/29/23 13:15 Labs: Abnormal Lab Results - Last 24 Hours (Table) 05/28/23 05/29/23 05/29/23 Range/Units 16:00 03:50 03:50 RBC 3.33 L (3.80-5.40) m/uL Hgb 9.7 L (11.4-16.0) gm/dL Hct 29.5 L (34.0-46.0) % RDW 16.7 H (11.5-15.5) % Plt Count 89 L (150-450) k/uL Lymphocytes # (Manual) 0.36 L (1.0-4.8) k/uL APTT (22.0-30.0) sec Fibrinogen (200-500) mg/dL D-Dimer (<0.60) mg/L FEU ABG pH (7.35-7.45) ABG pO2 (83-108) mmHg ABG HCO3 (21-25) mmol/L ABG Total CO2 (19-24) mmol/L ABG O2 Saturation (94-97) % Sodium 135 L (137-145) mmol/L Potassium 3.2 L (3.5-5.1) mmol/L BUN 41 H (7-17) mg/dL Creatinine 1.59 H (0.52-1.04) mg/dL Glucose 161 H (74-99) mg/dL POC Glucose (mg/dL) (70-110) mg/dL Calcium 5.9 L* 6.0 L* (8.4-10.2) mg/dL Ionized Calcium Ines (4.5-5.3) mg/dL 05/29/23 05/29/23 05/29/23 Range/Units 03:50 05:49 11:00 RBC (3.80-5.40) m/uL Hgb (11.4-16.0) gm/dL Hct (34.0-46.0) % RDW (11.5-15.5) % Plt Count (150-450) k/uL Lymphocytes # (Manual) (1.0-4.8) k/uL APTT 39.6 H (22.0-30.0) sec Fibrinogen 558 H (200-500) mg/dL D-Dimer 4.19 H (<0.60) mg/L FEU ABG pH 7.49 H (7.35-7.45) ABG pO2 151 H (83-108) mmHg ABG HCO3 27 H (21-25) mmol/L ABG Total CO2 28 H (19-24) mmol/L ABG O2 Saturation 98.8 H (94-97) % Sodium (137-145) mmol/L Potassium (3.5-5.1) mmol/L BUN (7-17) mg/dL Creatinine (0.52-1.04) mg/dL Glucose (74-99) mg/dL POC Glucose (mg/dL) (70-110) mg/dL Calcium (8.4-10.2) mg/dL Ionized Calcium Ines 3.7 L (4.5-5.3) mg/dL 05/29/23 Range/Units 11:18 RBC (3.80-5.40) m/uL Hgb (11.4-16.0) gm/dL Hct (34.0-46.0) % RDW (11.5-15.5) % Plt Count (150-450) k/uL Lymphocytes # (Manual) (1.0-4.8) k/uL APTT (22.0-30.0) sec Fibrinogen (200-500) mg/dL D-Dimer (<0.60) mg/L FEU ABG pH (7.35-7.45) ABG pO2 (83-108) mmHg ABG HCO3 (21-25) mmol/L ABG Total CO2 (19-24) mmol/L ABG O2 Saturation (94-97) % Sodium (137-145) mmol/L Potassium (3.5-5.1) mmol/L BUN (7-17) mg/dL Creatinine (0.52-1.04) mg/dL Glucose (74-99) mg/dL POC Glucose (mg/dL) 112 H (70-110) mg/dL Calcium (8.4-10.2) mg/dL Ionized Calcium Ines (4.5-5.3) mg/dL Microbiology - Last 24 Hours (Table) 05/27/23 14:52 Gram Stain - Preliminary Peritoneal Fluid Body Fluid Culture - Preliminary Gram Neg Bacilli 05/26/23 22:39 Blood Culture Gram Stain - Final Blood Blood Culture - Final Escherichia coli 05/27/23 17:03 Gram Stain - Preliminary Sputum Sputum Culture - Preliminary Assessment and Plan (1) Sepsis Current Visit: Yes Status: Acute Code(s): A41.9 - SEPSIS, UNSPECIFIED ORGANISM SNOMED Code(s): 56238018 (2) Peritonitis Current Visit: Yes Status: Acute Code(s): K65.9 - PERITONITIS, UNSPECIFIED SNOMED Code(s): 36808078 Plan: 1patient with a septic shock secondary to perforated colorectal anastomosis and bowel ischemia this patient evidence of marginal improvement status post extensive surgery we will need to cover for detailed gram-negative the likely pathogen E. coli bacteremia source likely abdominal which is a sensitive pathogen however resistant to quinolones 3-patient to continue with Zosyn 3.375 g every hour and monitor clinical course closely Overall prognosis is still guarded Dictation was produced using [employer] dictation software. please excuse any grammatical, word or spelling errors. Time with Patient: Less than 30
[2023-05-29] MEDS: SODIUM CHLORIDE 0.9% 1,000 ML IV SCH (17:20)
[2023-05-29 20:21] LABS: Glucose,Whole Blood 93 mg/dL (70-110)
[2023-05-30] MEDS: SODIUM CHLORIDE 0.9% 1,000 ML IV SCH ×3 (01:11→17:13)
[2023-05-30 02:13] LABS: Glucose,Whole Blood 87 mg/dL (70-110)
[2023-05-30] MEDS: IPRATROPIUM-ALBUTEROL 3 ML NEB INHALATION SCH ×6 (04:09→23:42)
[2023-05-30] MEDS: metroNIDAZOLE-NS PMX 500 MG in SALINE 1 100ML.BAG IVPB SCH ×4 (04:28→23:38)
[2023-05-30 04:31] LABS: Ionized Calcium 3.5 mg/dL (4.5-5.3)
[2023-05-30 04:41] LABS: ALT 82 U/L (4-34); AST 335 U/L (14-36); Albumin 1.8 g/dL (3.5-5.0); Alkaline Phosphatase 65 U/L (38-126); Anion Gap 10 mmol/L; Blood Urea Nitrogen 43 mg/dL (7-17); Carbon Dioxide 26 mmol/L (22-30); Chloride 102 mmol/L (98-107); Glucose 81 mg/dL (74-99); Magnesium 1.8 mg/dL (1.6-2.3); Potassium 3.8 mmol/L (3.5-5.1); Sodium 138 mmol/L (137-145); Total Bilirubin 0.8 mg/dL (0.2-1.3); Total Protein 3.5 g/dL (6.3-8.2)
[2023-05-30 04:47] LABS: African American GFR (CKD) 32 (>60 ml/min/1.73 sqM); Non-African American GFR(CKD) 28 (>60 ml/min/1.73 sqM)
[2023-05-30 04:48] LABS: Anisocytosis Slight; HCT 29.4 % (34.0-46.0); HGB 9.7 gm/dL (11.4-16.0); MCH 29.3 pg (25.0-35.0); MCHC 33.1 g/dL (31.0-37.0); MCV 88.6 fL (80.0-100.0); Mean Platelet Volume 10.3; Platelet Count 59 k/uL (150-450); RBC 3.32 m/uL (3.80-5.40); RDW 16.5 % (11.5-15.5); WBC 9.2 k/uL (3.8-10.6)
[2023-05-30 05:01] LABS: Calcium 5.5 mg/dL (8.4-10.2)
[2023-05-30] MEDS ORDERED: MAGNESIUM SULFATE-D5W PMX 1 GM in DEXTROSE/WATER 1 100ML.BAG IVPB ONE (05:28)
[2023-05-30] MEDS: POTASSIUM CHLORIDE 20 MEQ in WATER FOR INJECTION 1 100ML.BAG IVPB SCH ×2 (05:45→09:10)
[2023-05-30] MEDS: HYDROmorphone 1 MG/ML 1 ML SYRINGE IVP PRN ×4 (05:52→19:37)
[2023-05-30 06:04] LABS: Anisocytosis (M) Present; Band Neutrophils % 23 %; Eosinophils # (M) 0.09 k/uL (0-0.7); Lymphocytes # (M) 0.92 k/uL (1.0-4.8); Metamyelocytes # (M) 0.18 k/uL (0); Metamyelocytes % 2 %; Monocytes # (M) 0.28 k/uL (0-1.0); Neutrophils % (M) 63 %; Nucleated Red Blood Cells 0 /100 WBC (0-0); Polychromasia Present; Target Cells Present; Total Cells Counted 200
[2023-05-30 06:05] LABS: ABG Base Excess 3.6 mmol/L; ABG HCO3 28 mmol/L (21-25); ABG Oxygen Saturation 98.8 % (94-97); ABG PCO2 41 mmHg (35-45); ABG PH 7.44 (7.35-7.45); ABG PO2 150 mmHg (83-108); ABG TCO2 29 mmol/L (19-24); Allen Test Performed? Yes
[2023-05-30] MEDS: VASOPRESSIN 60 UNIT in SODIUM CHLORIDE 0.9% 150 ML IV SCH ×2 (06:52→23:34)
--- NOTE | 2023-05-30 07:44 | XR ---
EXAMINATION TYPE: XR chest 1V portable DATE OF EXAM: 05/30/2023 COMPARISON: 05/29/2023 HISTORY: SOB, Follow Up FINDINGS: Indwelling tubes and catheters are unchanged. No change in bibasilar opacities. Stable appearance of the cardio-mediastinal structures at this time. Pleural effusion unchanged. IMPRESSION: 1. Stable portable chest. Clinical correlation and follow up until resolution is recommended.
--- NOTE | 2023-05-30 08:19 | P.GSCN ---
History of Present Illness Consult date: 05/30/23 Reason for Consult: Bilateral lower extremity arterial insufficiency. History of present illness: Patient is a 63-year-old female who was admitted on May 26 secondary to colonic perforation with associated sepsis. She did undergo laparotomy with control of bowel perforation an end ostomy. She has required resuscitation as well as vasopressors to support her blood pressure. Yesterday her legs were noted to be mottled more severely affected on the right than the left. Over the past 24 hours or pressure requirements have decreased significantly and nursing reports the mottling has improved dramatically. Currently the patient is in tubated and sedated and more detailed history cannot be obtained from the patient at this time. Past Medical History Past Medical History: Cancer, COPD, GERD/Reflux, Osteoarthritis (OA), Pulmonary Embolus (PE), Thyroid Disorder Additional Past Medical History / Comment(s): CANCER APPENDIX, COLOSTOMY, HEART MURMUR., STATES PE 2017., CERVICAL STENOSIS WITH HERNIATED DISC., ABD WOUND DIHISENCE., RESIDES AT [facility]. History of Any Multi-Drug Resistant Organisms: MRSA Year Discovered:: 11/24/22 MDRO Source:: ABD WOUND Past Surgical History: Section Additional Past Surgical History / Comment(s): RIGHT AND LEFT COLECTOMY WITH COLOSTOMY., COLONOSCOPY; ostomy reversal/hernia repair/colectomy (01/29/23). Past Anesthesia/Blood Transfusion Reactions: No Reported Reaction Past Psychological History: No Psychological Hx Reported Smoking Status: Current every day smoker Past Alcohol Use History: None Reported Additional Past Alcohol Use History / Comment(s): SMOKES 1/2 PPD, STARTED SMOKING AGE 21. Past Drug Use History: None Reported - Past Family History Mother History Unknown: Yes Family Medical History: No Reported History Medications and Allergies Home Medications Medication Instructions Recorded Confirmed Type Levothyroxine Sodium [Euthyrox] 75 mcg PO DAILY #30 tab 09/17/22 05/26/23 Rx Ipratropium-Albuterol Nebulize 3 ml INHALATION RT-TID PRN 10/04/22 05/26/23 History [Duoneb 0.5 mg-3 mg/3 ml Soln] Omeprazole [PriLOSEC] 20 mg PO DAILY 10/04/22 05/26/23 History Acetaminophen Tab [Tylenol] 325 mg PO Q6HR PRN 01/26/23 05/26/23 History Calcium Carbonate/Vitamin D3 1 tab PO DAILY 01/26/23 05/26/23 History [Calcium 600 mg-Vit D3 5 mcg (200 unit)] Cholecalciferol [Vitamin D3 (25 25 mcg PO DAILY 01/26/23 05/26/23 History Mcg = 1000 Iu)] Pyridoxine HCl (Vitamin B6) 100 mg PO DAILY 01/26/23 05/26/23 History [Vitamin B-6] HYDROcodone/APAP 5-325MG [Jackson 1 tab PO Q6HR PRN 3 Days #12 tab 02/25/23 05/26/23 Rx 5-325] Docusate [Colace] 100 mg PO BID 05/26/23 05/26/23 History Folic Acid 0.4 mg PO HS 05/26/23 05/26/23 History Healthshake 1 dose PO TID 05/26/23 05/26/23 History Magnesium Citrate [Citrate of 1.745 gm PO DAILY PRN 05/26/23 05/26/23 History Magnesia] Multivitamins, Thera [Multivitamin 1 tab PO HS 05/26/23 05/26/23 History (formulary)] Psyllium Husk 100% [Metamucil 6 gm PO DAILY 05/26/23 05/26/23 History Packet] Allergies Allergy/AdvReac Type Severity Reaction Status Date / Time No Known Allergies Allergy Verified 05/26/23 17:49 Surgical - Exam Osteopathic Statement: *. No significant issues noted on an osteopathic structural exam other than those noted in the History and Physical/Consult. Vital Signs Temp Pulse Resp BP Pulse Ox 97.7 F 83 18 95/62 95 05/26/23 16:08 05/26/23 16:08 05/26/23 16:08 05/26/23 16:08 05/26/23 16:08 Patient has palpable femoral pulses bilaterally. I could not appreciate popliteal or pedal pulses. Both calves are soft without evidence of compartment syndrome. There is no significant leg edema noted at this time. Feet are appropriately protected from pressure wounds. Some scattered skin blotchiness is noted although capillary refill is noted throughout a bit sluggish. Results - Labs 05/30/23 04:00 05/30/23 04:00 Abnormal Lab Results - Last 24 Hours (Table) 05/29/23 05/29/23 05/30/23 Range/Units 11:00 11:18 04:00 RBC 3.32 L (3.80-5.40) m/uL Hgb 9.7 L (11.4-16.0) gm/dL Hct 29.4 L (34.0-46.0) % RDW 16.5 H (11.5-15.5) % Plt Count 59 L (150-450) k/uL Neutrophils # (Manual) 7.90 H (1.3-7.7) k/uL Lymphocytes # (Manual) 0.92 L (1.0-4.8) k/uL Metamyelocytes # (Man) 0.18 H (0) k/uL APTT 39.6 H (22.0-30.0) sec Fibrinogen 558 H (200-500) mg/dL D-Dimer 4.19 H (<0.60) mg/L FEU ABG pO2 (83-108) mmHg ABG HCO3 (21-25) mmol/L ABG Total CO2 (19-24) mmol/L ABG O2 Saturation (94-97) % BUN (7-17) mg/dL Creatinine (0.52-1.04) mg/dL POC Glucose (mg/dL) 112 H (70-110) mg/dL Calcium (8.4-10.2) mg/dL Ionized Calcium Ines (4.5-5.3) mg/dL AST (14-36) U/L ALT (4-34) U/L Total Protein (6.3-8.2) g/dL Albumin (3.5-5.0) g/dL 05/30/23 05/30/23 Range/Units 04:00 05:55 RBC (3.80-5.40) m/uL Hgb (11.4-16.0) gm/dL Hct (34.0-46.0) % RDW (11.5-15.5) % Plt Count (150-450) k/uL Neutrophils # (Manual) (1.3-7.7) k/uL Lymphocytes # (Manual) (1.0-4.8) k/uL Metamyelocytes # (Man) (0) k/uL APTT (22.0-30.0) sec Fibrinogen (200-500) mg/dL D-Dimer (<0.60) mg/L FEU ABG pO2 150 H (83-108) mmHg ABG HCO3 28 H (21-25) mmol/L ABG Total CO2 29 H (19-24) mmol/L ABG O2 Saturation 98.8 H (94-97) % BUN 43 H (7-17) mg/dL Creatinine 1.89 H (0.52-1.04) mg/dL POC Glucose (mg/dL) (70-110) mg/dL Calcium 5.5 L* (8.4-10.2) mg/dL Ionized Calcium Ines 3.5 L* (4.5-5.3) mg/dL AST 335 H (14-36) U/L ALT 82 H (4-34) U/L Total Protein 3.5 L (6.3-8.2) g/dL Albumin 1.8 L (3.5-5.0) g/dL Microbiology - Last 24 Hours (Table) 05/27/23 14:52 Gram Stain - Preliminary Peritoneal Fluid Body Fluid Culture - Preliminary Gram Neg Bacilli 05/26/23 22:39 Blood Culture Gram Stain - Final Blood Blood Culture - Final Escherichia coli 05/27/23 17:03 Gram Stain - Preliminary Sputum Sputum Culture - Preliminary Diabetes panel 05/29/23 05/30/23 Range/Units 13:15 04:00 Sodium 138 (137-145) mmol/L Potassium 3.6 3.8 (3.5-5.1) mmol/L Chloride 102 (98-107) mmol/L Carbon Dioxide 26 (22-30) mmol/L BUN 43 H (7-17) mg/dL Creatinine 1.89 H (0.52-1.04) mg/dL Glucose 81 (74-99) mg/dL Calcium 5.5 L* (8.4-10.2) mg/dL AST 335 H (14-36) U/L ALT 82 H (4-34) U/L Alkaline Phosphatase 65 (38-126) U/L Total Protein 3.5 L (6.3-8.2) g/dL Albumin 1.8 L (3.5-5.0) g/dL Calcium panel 05/30/23 Range/Units 04:00 Calcium 5.5 L* (8.4-10.2) mg/dL Ionized Calcium Ines 3.5 L* (4.5-5.3) mg/dL Albumin 1.8 L (3.5-5.0) g/dL Pituitary panel 05/29/23 05/30/23 Range/Units 13:15 04:00 Sodium 138 (137-145) mmol/L Potassium 3.6 3.8 (3.5-5.1) mmol/L Chloride 102 (98-107) mmol/L Carbon Dioxide 26 (22-30) mmol/L BUN 43 H (7-17) mg/dL Creatinine 1.89 H (0.52-1.04) mg/dL Glucose 81 (74-99) mg/dL Calcium 5.5 L* (8.4-10.2) mg/dL Adrenal panel 05/29/23 05/30/23 Range/Units 13:15 04:00 Sodium 138 (137-145) mmol/L Potassium 3.6 3.8 (3.5-5.1) mmol/L Chloride 102 (98-107) mmol/L Carbon Dioxide 26 (22-30) mmol/L BUN 43 H (7-17) mg/dL Creatinine 1.89 H (0.52-1.04) mg/dL Glucose 81 (74-99) mg/dL Calcium 5.5 L* (8.4-10.2) mg/dL Total Bilirubin 0.8 (0.2-1.3) mg/dL AST 335 H (14-36) U/L ALT 82 H (4-34) U/L Alkaline Phosphatase 65 (38-126) U/L Total Protein 3.5 L (6.3-8.2) g/dL Albumin 1.8 L (3.5-5.0) g/dL Assessment and Plan Assessment: 1: Sepsis, resolving with associated pronounced vasoconstriction aggravated by the need for vasopressors. 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 Plan: 1: Will obtain a CPK and tract to evaluate for potential development of compartment syndrome. 2: No plans for surgical intervention and failed clinical follow-up is appropriate. 3: I would anticipate return of baseline arterial perfusion once septic syndrome and need for vasopressors has resolved. 4: We'll continue to follow with you.
--- NOTE | 2023-05-30 09:06 | P.PN ---
Subjective Progress Note Date: 05/30/23 This is a 63-year-old female patient is currently being seen in the intensive care unit following abdominal surgery. The patient presented to the hospital because of abdominal pain and surgical consultation was obtained as the patient was found to have pneumoperitoneum. The patient had a CAT scan of the abdomen and pelvis that was done 05/26/2023 and the patient was found to have large pneumoperitoneum, large fecal bolus in the rectum. Fecal material was also seen in the sigmoid colon. There was evidence of cholelithiasis and ascites. Based on those findings, the patient was taken to the operating room today and the patient was given an LAD, subtotal colectomy, partial proctectomy and and il eostomy and open fecal decompression drainage of fecal peritonitis and left also also oophprectomy and salpingectomy. Postop, the patient was brought into the intensive care unit. She has already received a total of 5 L of IV fluids. Most recent BP is 81/50. The patient is also on pressors and norepinephrine is running at 0.25 mcg/kg/m. The patient has improved in her urine output which is producing approximately 40 mL an hour. She is fully sedated on propofol which is running at 50 mcg/kg/m. She is, comfortable and symptoms of the mechanical ventilator. I reviewed the initial blood gas that showed a pH of 7.12 with a pCO2 of 48 and a pO2 of more than 400. Subsequently, the patient was placed on assist-control mode at the rate of 26, tidal volume of 400 and FiO2 has been weaned down to 40% and she is currently on a PEEP of 5. The chest x-ray that was done following her abdominal surgery showed adequate positioning of 82. There is no evidence of any acute abnormalities. She has a left IJ triple-lumen catheter in place. The patient had evidence of renal failure, likely acute due to BUN of 47 and a creatinine of 1.78. She also has a mild anion gap metabolic acidosis. The lactic acid level was 2.7. Calcium level was low at 6.3. Serum albumin was 2.6 with a total protein of 4.8. The white cell cause of 3.2 with a hemoglobin of 11.4. She has a NG tube in place. Output from the NG is minimal are brown. Her white suppositive 3.2 with a hemoglobin of 11.4. She is currently covered with IV Zosyn and Flagyl. She was ordered started on a bicarb infusion. Note that the patient has had multiple abdominal surgeries in the past. She has undergone a previous right and left colectomy with end colostomy in September 2022 and subsequent reversal of the colostomy. She has COPD, hypothyroidism and she is a chronic smoker. The patient has had previous episodes of small bowel obstruction and large bowel obstruction. She suffers from chronic constipation. She is status post colectomy and colostomy for chronic thickened impaction approximately 9 months ago. She underwent subsequent reversal approximately 4 months ago but colostomy. On today's evaluation of a 2022, the patient is being seen for a follow-up. She is still doing very poor. On today's evaluation, the skin over the abdominal wall and the lower extremities are extensively mottled, a sign of tissue hypoperfusion related to sepsis. The patient is still on a mechanical ventilator. This morning, she is on propofol running at 25 mcg/kg/m. She is synchronous with mechanical ventilator. She is on assist-control mode at a rate of 26, tidal volume of 400, FiO2 of 40% and a PEEP is currently at 5. Blood gas shows improvement in the acid base status. PH is up to 7.32 with a pCO2 of 36 a nd pO2 120 and this was gas was done FiO2 of 40%. Chest x-ray from today shows adequate expansion of both lungs. The patient has developed some left-sided pleural effusion/atelectasis. ET tube is in good location. The patient has a left IJ triple-lumen catheter in place. Orogastric tube was also in good location. The output from the OG is green and in the order of 300 mL over the past 18 hours. Hemodynamically, the patient is doing poor. She is on fluids and the patient got resuscitated with a total of 7 L of IV fluids yesterday in addition to IV albumin. Currently, she started on norepinephrine running at 0.35 mcg/kg/m. She is also on vasopressin and physiologic dose. She is on a bicarbonate infusion running at 150 mL an hour. She is on IV Zosyn and Flagyl. Urine output is in order of 10-20 mL an hour. PABOL drain is putting out serosanguineous material. Ileostomy has minimal amount of liquidy material in the bag. The stoma is still healthy and viable and there is no signs of necrosis. The patient has a BUN of 40 with a creatinine of 1.6. Sodium is at 139. Lactic acid level is still elevated at 3.4, calcium is at 5.9, ionized calcium is 3.6, magnesium is at 1.3 and the white cell cause of 4.4 with a hemoglobin of 10.6 and a platelet count of 161. She is nothing by mouth. She is afebrile for now. 05/29/2023, patient remains intubated on a mechanical ventilator. She is still doing very poorly. She continues to have ischemic changes in her lower extremities bilaterally and there is extensive skin mottling in her lower extremity especially on the right and some on the left and the abdominal wall is also monitoring. The patient has no pulses in her popliteus in her lower extremity is bilaterally. Femoral pulses are present. Her extremity is a cold. Meanwhile, she remains on pressors. On today's evaluation, she is on a norepinephrine running at 0.12 mcg/kg/m and she is also on vasopressin physiologic dose. She is in a sinus rhythm. Most recent BP is 96/64. She remains on a mechanical ventilator. She is on assist-control mode rate of 26, tidal volume of 400, FiO2 of 40% and a PEEP of 5. Her blood gas from today shows a pH of 7.49 with a pCO2 of 36 and pO2 of 151. Her chest x-ray from today is showing some minimal atelectatic changes in the left lung base. Otherwise the x-ray findings are normal. Orogastric and orotracheal tube are both in place. She is on propofol which is running at 10 mcg/kg/m. She is slightly more arousable compared to yesterday and she emesis to deep painful stimulation. Ileostomy is viable. No significant output. Wound VAC is in place. PABLO drain is in her left lower quadrant and the output is serosanguineous, nonbloody, nonpurulent. The white cell cause of 7.1, hemoglobin is 9.7, platelet count is at 89 which is up compared to yesterday. At the same time, her sodium level is at 135, serum bicarb is normalized it's up to 24 with a potassium level of 3.2. Creatinine is slightly improved compared to yesterday is down to 1.59. Calcium level is still low and ionized calcium is at 3.7. Magnesium is at 2.0. Glucose is at 161. BUN is at 41 with a creatinine of 1.59. The overall fluid balance over the past 24 hours has been +4.5 L. CVP is currently at 12-14. On 05/30/2023, the patient is being seen for a follow-up. She remains critically ill following abdominal surgery and the patient continues to be septic although her condition is somewhat improved compared to yesterday. The skin mottling over the abdomen and lower extremity is improved and the patient continues to have absent pulses on the popliteal in her lower extremities bilaterally. She is more warm lower extremities and the cold and clamminess has essentially recovered. Meanwhile, she was seen by vascular surgery and no intervention has been recommended. She continues to be septic features requiring pressors although the pressor requirements have improved compared to yesterday. She is on norepinephrine running at 0.1 microvascular kilogram per minute and she is also on vasopressin physiologic dose. She remains on a mechanical ventilator. Propofol is running at a dose of 20 mcg/kg/m. She is on assist-control mode of mechanical ventilation, rate of 20, tidal volume of 400, FiO2 of 40% with a PEEP of 5. Blood gas from today shows a pH of 7.44 with a pCO2 of 41 and pO2 of 150. Chest x-ray shows stable findings. Orotracheal tube is in a good location. NG tube is in a good location. She did have some left basilar atelectasis. Meanwhile, the NG tube is in place, output is in order of minimal.The ostomy is functional and there is some liquidy material collecting an ileostomy bag. PABLO drain output is minimal and it is serosanguineous. Abdominal wound looks dry clean and intact. The patient is arousable. She grimaces to painful stimulation. She remains on the sedation. The creatinine is up to 1.89 as the patient suffered an acute kidney injury. BUN is 43, sodium is 138 and the potassium levels at 3.8. The patient has a white cell count of 9.2 with a hemoglobin of 9.7. She remains nothing by mouth for the time being. Platelet count has been dropping and is currently down to 59. Heparin was discontinued yesterday. She remains on a combination of Zosyn and Flagyl. Cultures expected leak going gram-negative bacillus from the abdomen in the blood culture was also positive for E. coli and this E. coli is quinolone resistant. The patient is postop day #4 for the time being. Objective - Vital Signs Vital signs: Vital Signs Temp 98.7 F 05/30/23 04:00 Pulse 76 05/30/23 08:37 Resp 20 05/30/23 07:00 BP 110/68 05/30/23 07:00 Pulse Ox 99 05/30/23 07:00 FiO2 40 05/30/23 08:37 Intake & Output 05/29/23 05/30/23 05/30/23 18:59 06:59 18:59 Intake Total 0774.303 0207.396 Output Total 370 425 Balance 7067.089 2039.396 Weight 75.8 kg Intake: IV 1212 2088 0.9 NS KVO 240 260 ARTERIAL LINE & CVP 72 78 Dextrose 5% in Water 1, 600 000 ml @ 150 mls/hr IV . Q7H40M [facility] with Sodium Bicarb (1 Meq/ml) 150 ml Rx#:[id number] Piperacillin-Tazobactam 3 100 .375 gm In Sodium Chloride 0.9% 100 ml @ 25 mls/hr IVPB Q8HR [facility] Rx# :[id number] Potassium Chloride 20 meq 200 In Water For Injection 1 100ml.bag @ 50 mls/hr IVPB Q2H [facility] Rx#: [id number] Sodium Chloride 0.9% 1, 1750 000 ml @ 125 mls/hr IV . Q8H [facility] Rx#:[id number] Intake, IV Titration 344.973 369.396 Amount Norepinephrine 32 mg In 30.987 44.718 Sodium Chloride 0.9% 218 ml @ 0.03 MCG/KG/MIN 0. 778 mls/hr IV .Q24H [facility] Rx#:[id number] Sodium Chloride 0.9% 1, 125 125 000 ml @ 125 mls/hr IV . Q8H [facility] Rx#:[id number] Vasopressin 60 unit In 123.318 Sodium Chloride 0.9% 150 ml @ 0.03 UNITS/MIN 4.59 mls/hr IV .Q24H [facility] Rx#: [id number] metroNIDAZOLE-NS PMX 500 100 mg In Saline 1 100ml.bag @ 100 mls/hr IVPB Q6H [facility] Rx#:[id number] propofoL 1,000 mg In 88.986 76.36 Empty Bag 1 bag @ 15 MCG/ KG/MIN 4.98 mls/hr IV . Q20H5M [facility] Rx#:[id number] Tube Feeding 0 Other 0 Output: Gastric Drainage 50 Drainage 15 40 Left Lower Abdomen 15 40 Urine 305 235 Stool 0 150 Other: Voiding Method Indwelling Catheter Indwelling Catheter ABP, PAP, CO, CI - Last Documented Arterial Blood Pressure 102/60 - Exam frail and currently fully sedated on propofol. Orogastric and orotracheal tube are both in place. Head exam was generally normal. There was no scleral icterus or corneal arcus. Mucous membranes were moist. The patient has a left larger triple-lumen catheter in place. The CVP is at 10.-14 Neck was supple and without jugular venous distension, thyromegaly, or carotid bruits. Carotids were easily palpable bilaterally. There was no adenopathy. The patient has an NG tube and a triple-lumen catheter in her left IJ. Lungs were clear to auscultation and percussion, and with normal diaphragmatic excursion. No wheezes or rales were noted. Cardiac exam revealed the PMI to be normally situated and sized. The rhythm was regular and no extrasystoles were noted during several minutes of auscultation. The first and second heart sounds were normal and physiologic splitting of the second heart sound was noted. There were no murmurs, rubs, clicks, or gallops. Examination of the abdomen shows a mid abdominal incision with a wound VAC. The patient is a PABLO drain in her left lower quadrant. The patient was given a ileostomy on the right and the tissue is viable at this point in time. The skin over the abdominal wall is quite mottled. No output. Bowel sounds are absent. No direct distention. No direct tenderness. No rebound tenderness. No guarding. Examination of the extremities revealed absent pulses in lower extremities There was no cyanosis, clubbing or edema., The patient has a left femoral arterial line and she has also Otero catheter in place. Mottling of the skin in lower extremities mottling of the right lower extremity more than the left.. Extremities are cold and clammy. Neurologically, the patient is sedated. - Labs CBC & Chem 7: 05/30/23 04:00 05/30/23 04:00 Labs: Abnormal Lab Results - Last 24 Hours (Table) 05/29/23 05/29/23 05/30/23 Range/Units 11:00 11:18 04:00 RBC 3.32 L (3.80-5.40) m/uL Hgb 9.7 L (11.4-16.0) gm/dL Hct 29.4 L (34.0-46.0) % RDW 16.5 H (11.5-15.5) % Plt Count 59 L (150-450) k/uL Neutrophils # (Manual) 7.90 H (1.3-7.7) k/uL Lymphocytes # (Manual) 0.92 L (1.0-4.8) k/uL Metamyelocytes # (Man) 0.18 H (0) k/uL APTT 39.6 H (22.0-30.0) sec Fibrinogen 558 H (200-500) mg/dL D-Dimer 4.19 H (<0.60) mg/L FEU ABG pO2 (83-108) mmHg ABG HCO3 (21-25) mmol/L ABG Total CO2 (19-24) mmol/L ABG O2 Saturation (94-97) % BUN (7-17) mg/dL Creatinine (0.52-1.04) mg/dL POC Glucose (mg/dL) 112 H (70-110) mg/dL Calcium (8.4-10.2) mg/dL Ionized Calcium Ines (4.5-5.3) mg/dL AST (14-36) U/L ALT (4-34) U/L Total Protein (6.3-8.2) g/dL Albumin (3.5-5.0) g/dL 05/30/23 05/30/23 Range/Units 04:00 05:55 RBC (3.80-5.40) m/uL Hgb (11.4-16.0) gm/dL Hct (34.0-46.0) % RDW (11.5-15.5) % Plt Count (150-450) k/uL Neutrophils # (Manual) (1.3-7.7) k/uL Lymphocytes # (Manual) (1.0-4.8) k/uL Metamyelocytes # (Man) (0) k/uL APTT (22.0-30.0) sec Fibrinogen (200-500) mg/dL D-Dimer (<0.60) mg/L FEU ABG pO2 150 H (83-108) mmHg ABG HCO3 28 H (21-25) mmol/L ABG Total CO2 29 H (19-24) mmol/L ABG O2 Saturation 98.8 H (94-97) % BUN 43 H (7-17) mg/dL Creatinine 1.89 H (0.52-1.04) mg/dL POC Glucose (mg/dL) (70-110) mg/dL Calcium 5.5 L* (8.4-10.2) mg/dL Ionized Calcium Ines 3.5 L* (4.5-5.3) mg/dL AST 335 H (14-36) U/L ALT 82 H (4-34) U/L Total Protein 3.5 L (6.3-8.2) g/dL Albumin 1.8 L (3.5-5.0) g/dL Microbiology - Last 24 Hours (Table) 05/27/23 14:52 Gram Stain - Preliminary Peritoneal Fluid Body Fluid Culture - Preliminary Gram Neg Bacilli 05/26/23 22:39 Blood Culture Gram Stain - Final Blood Blood Culture - Final Escherichia coli 05/27/23 17:03 Gram Stain - Preliminary Sputum Sputum Culture - Preliminary Assessment and Plan Plan: acute pneumoperitoneum. The patient is post exploratory laparotomy. The patient underwent extensive subtotal colectomy, partial proctectomy, and ileostomy, drainage of the fecal peritonitis and and open fecal be compaction and left oophorectomy and salpingectomy, The patient is a PABLO drain in the left lower quadrant and the patient has an ileostomy at this point. The patient is postop day #4 Fecal peritonitis with secondary sepsis secondary to above E. coli sepsis in the blood cultures are positive for E. coli, quinolone resistant and the patient also has a gram-negative growing in her abdominal fluid Septic shock secondary to above, the patient denies profoundly hypotensive, requiring pressors and she is also on broad-spectrum antibiotics. The patient is on a combination of norepinephrine and vasopressin. CVP is currently at 10- 14. Aggressively resuscitated with IV fluids, and the patient is still on norepinephrine and vasopressin. Norepinephrine is still running at 0.1 g /kilogram per minutes. Vasopressin is a physiologic dose. Absent pulses in her lower extremities with significant skin mottling, likely secondary to sepsis. Underlying vascular insult/acute vascular occlusion cannot be completely ruled out. The extremities are warm on today's evaluation. The skin is less mottled. The patient was seen by vascular surgery History of chronic constipation with previous right and left colectomy and colostomy with subsequent reversal Acute hypotension, likely secondary to abdominal sepsis, currently on a combination of fluids and pressors and antibiotics. Acute kidney injury secondary to above,, creatinine is at 1.8, urine output is in order of 5-10 mL an hour. Mild lactic acidosis, recovered COPD/chronic smoker Acute respiratory failure, hypoxic and hypercapnic in nature. The patient was kept intubated on a mechanical ventilator following her surgery and her r espiratory failure is further contributed by her abdominal sepsis and abdominal surgery. Chronic constipation Previous history of appendiceal carcinoma, resected Remote history of pulmonary embolism on no anticoagulants and this occurred back in 2017. History of cervical C3 stenosis with degenerative disc disease Osteoarthritis Chronic debility and the patient is a senior living resident Acute thrombocytopenia, likely secondary to sepsis. Drug induced is also to be considered. Hypocalcemia Hypoproteinemia/hypoalbuminemia Plan keep the patient sedated propofol Keep the patient on the same ventilator settings Vascular surgery input is appreciated Continue IV fluids at the rate of 125 mL an hour Discuss with general surgery the possibility of stopping some enteral feeding on this patient Continue pressors and the patient is currently on norepinephrine and vasopressin Monitor hemodynamics and blood pressure Continue Zosyn and Flagyl Monitor the output from the PABLO drain Calcium and magnesium level needs to be replaced , we'll give the patient edition 2 g of calcium supplement IV Protonix Subcu heparin Bronchodilators NG tube in place monitor the platelet count We'll continue to follow. Condition is critical. The patient remains profoundly septic. We'll continue to follow. Condition is critical. His evaluation was done in more than 30 minutes. Time with Patient: Greater than 30
[2023-05-30] MEDS: PANTOPRAZOLE 40 MG/10 ML VIAL IV SCH (09:15)
[2023-05-30] MEDS: PIPERACILLIN-TAZOBACTAM 3.375 GM in SODIUM CHLORIDE 0.9% 100 ML IVPB SCH ×2 (09:15→15:09)
[2023-05-30] MEDS: CHLORHEXIDINE GLUCONATE 15 ML CUP MUCOUS MEM SCH ×2 (09:15→20:14)
--- NOTE | 2023-05-30 09:16 | P.PN ---
Subjective Progress Note Date: 05/30/23 Principal diagnosis: Colon perforation Patient doing better today. Pressure requirements improved quite a bit. She is afebrile. White blood cell count 9.2, hemoglobin stable at 9.7. Nasogastric aspirate is minimal. She is now having good function through the ostomy. Objective - Vital Signs Vital signs: Vital Signs Temp 98.7 F 05/30/23 04:00 Pulse 76 05/30/23 08:37 Resp 20 05/30/23 07:00 BP 110/68 05/30/23 07:00 Pulse Ox 99 05/30/23 07:00 FiO2 40 05/30/23 08:37 Intake & Output 05/29/23 05/30/23 05/30/23 18:59 06:59 18:59 Intake Total 7382.451 2147.396 Output Total 370 425 Balance 0964.266 9622.396 Weight 75.8 kg Intake: IV 1212 2088 0.9 NS KVO 240 260 ARTERIAL LINE & CVP 72 78 Dextrose 5% in Water 1, 600 000 ml @ 150 mls/hr IV . Q7H40M [facility] with Sodium Bicarb (1 Meq/ml) 150 ml Rx#:[id number] Piperacillin-Tazobactam 3 100 .375 gm In Sodium Chloride 0.9% 100 ml @ 25 mls/hr IVPB Q8HR [facility] Rx# :[id number] Potassium Chloride 20 meq 200 In Water For Injection 1 100ml.bag @ 50 mls/hr IVPB Q2H [facility] Rx#: [id number] Sodium Chloride 0.9% 1, 1750 000 ml @ 125 mls/hr IV . Q8H [facility] Rx#:[id number] Intake, IV Titration 344.973 369.396 Amount Norepinephrine 32 mg In 30.987 44.718 Sodium Chloride 0.9% 218 ml @ 0.03 MCG/KG/MIN 0. 778 mls/hr IV .Q24H [facility] Rx#:[id number] Sodium Chloride 0.9% 1, 125 125 000 ml @ 125 mls/hr IV . Q8H [facility] Rx#:[id number] Vasopressin 60 unit In 123.318 Sodium Chloride 0.9% 150 ml @ 0.03 UNITS/MIN 4.59 mls/hr IV .Q24H [facility] Rx#: [id number] metroNIDAZOLE-NS PMX 500 100 mg In Saline 1 100ml.bag @ 100 mls/hr IVPB Q6H [facility] Rx#:[id number] propofoL 1,000 mg In 88.986 76.36 Empty Bag 1 bag @ 15 MCG/ KG/MIN 4.98 mls/hr IV . Q20H5M [facility] Rx#:[id number] Tube Feeding 0 Other 0 Output: Gastric Drainage 50 Drainage 15 40 Left Lower Abdomen 15 40 Urine 305 235 Stool 0 150 Other: Voiding Method Indwelling Catheter Indwelling Catheter ABP, PAP, CO, CI - Last Documented Arterial Blood Pressure 102/60 - Exam Abdomen: Soft, mild distention, nontender, dressing clean and dry, ostomy pink with bilious output - Labs CBC & Chem 7: 05/30/23 04:00 05/30/23 04:00 Labs: Abnormal Lab Results - Last 24 Hours (Table) 05/29/23 05/29/23 05/30/23 Range/Units 11:00 11:18 04:00 RBC 3.32 L (3.80-5.40) m/uL Hgb 9.7 L (11.4-16.0) gm/dL Hct 29.4 L (34.0-46.0) % RDW 16.5 H (11.5-15.5) % Plt Count 59 L (150-450) k/uL Neutrophils # (Manual) 7.90 H (1.3-7.7) k/uL Lymphocytes # (Manual) 0.92 L (1.0-4.8) k/uL Metamyelocytes # (Man) 0.18 H (0) k/uL APTT 39.6 H (22.0-30.0) sec Fibrinogen 558 H (200-500) mg/dL D-Dimer 4.19 H (<0.60) mg/L FEU ABG pO2 (83-108) mmHg ABG HCO3 (21-25) mmol/L ABG Total CO2 (19-24) mmol/L ABG O2 Saturation (94-97) % BUN (7-17) mg/dL Creatinine (0.52-1.04) mg/dL POC Glucose (mg/dL) 112 H (70-110) mg/dL Calcium (8.4-10.2) mg/dL Ionized Calcium Ines (4.5-5.3) mg/dL AST (14-36) U/L ALT (4-34) U/L Total Protein (6.3-8.2) g/dL Albumin (3.5-5.0) g/dL 05/30/23 05/30/23 Range/Units 04:00 05:55 RBC (3.80-5.40) m/uL Hgb (11.4-16.0) gm/dL Hct (34.0-46.0) % RDW (11.5-15.5) % Plt Count (150-450) k/uL Neutrophils # (Manual) (1.3-7.7) k/uL Lymphocytes # (Manual) (1.0-4.8) k/uL Metamyelocytes # (Man) (0) k/uL APTT (22.0-30.0) sec Fibrinogen (200-500) mg/dL D-Dimer (<0.60) mg/L FEU ABG pO2 150 H (83-108) mmHg ABG HCO3 28 H (21-25) mmol/L ABG Total CO2 29 H (19-24) mmol/L ABG O2 Saturation 98.8 H (94-97) % BUN 43 H (7-17) mg/dL Creatinine 1.89 H (0.52-1.04) mg/dL POC Glucose (mg/dL) (70-110) mg/dL Calcium 5.5 L* (8.4-10.2) mg/dL Ionized Calcium Ines 3.5 L* (4.5-5.3) mg/dL AST 335 H (14-36) U/L ALT 82 H (4-34) U/L Total Protein 3.5 L (6.3-8.2) g/dL Albumin 1.8 L (3.5-5.0) g/dL Microbiology - Last 24 Hours (Table) 05/27/23 14:52 Gram Stain - Preliminary Peritoneal Fluid Body Fluid Culture - Preliminary Gram Neg Bacilli 05/26/23 22:39 Blood Culture Gram Stain - Final Blood Blood Culture - Final Escherichia coli 05/27/23 17:03 Gram Stain - Preliminary Sputum Sputum Culture - Preliminary Assessment and Plan (1) Pneumoperitoneum Narrative/Plan: Patient doing better at this time. Continue ventilatory support and weaning per pulmonary. Continue antibiotics. May begin low-dose tube feeds. Current Visit: Yes Status: Acute Code(s): K66.8 - OTHER SPECIFIED DISORDERS OF PERITONEUM SNOMED Code(s): 90382585
[2023-05-30] MEDS ORDERED: CALCIUM GLUCONATE IN NACL 2 GM in SALINE 1 100ML.BAG IVPB ONE (09:30)
[2023-05-30 11:06] LABS: Glucose,Whole Blood 84 mg/dL (70-110)
[2023-05-30 11:43] LABS: Glucose,Whole Blood 83 mg/dL (70-110)
--- NOTE | 2023-05-30 12:23 | P.PN ---
Subjective Progress Note Date: 05/30/23 Follow-up for acute kidney injury. Intubated, on pressors. Urine output about 20 ML's an hour since overnight. Hypotensive episodes. Objective - Vital Signs Vital signs: Vital Signs Temp 97.9 F 05/30/23 08:00 Pulse 75 05/30/23 11:00 Resp 20 05/30/23 11:00 BP 95/57 05/30/23 11:00 Pulse Ox 97 05/30/23 11:00 FiO2 40 05/30/23 11:17 Intake & Output 05/29/23 05/30/23 05/30/23 18:59 06:59 18:59 Intake Total 8187.791 8718.396 967.701 Output Total 370 425 350 Balance 6353.152 0145.396 617.701 Weight 75.8 kg Intake: IV 1212 2088 594 0.9 NS KVO 240 260 70 ARTERIAL LINE & CVP 72 78 24 Dextrose 5% in Water 1, 600 000 ml @ 150 mls/hr IV . Q7H40M [facility] with Sodium Bicarb (1 Meq/ml) 150 ml Rx#:[id number] Piperacillin-Tazobactam 3 100 .375 gm In Sodium Chloride 0.9% 100 ml @ 25 mls/hr IVPB Q8HR [facility] Rx# :[id number] Potassium Chloride 20 meq 200 In Water For Injection 1 100ml.bag @ 50 mls/hr IVPB Q2H [facility] Rx#: [id number] Sodium Chloride 0.9% 1, 1750 500 000 ml @ 125 mls/hr IV . Q8H [facility] Rx#:[id number] Intake, IV Titration 344.973 369.396 333.701 Amount Calcium Gluconate in NaCl 100 2 gm In Saline 1 100ml. bag @ 100 mls/hr IVPB ONCE ONE Rx#:[id number] Norepinephrine 32 mg In 30.987 44.718 10.061 Sodium Chloride 0.9% 218 ml @ 0.03 MCG/KG/MIN 0. 778 mls/hr IV .Q24H [facility] Rx#:[id number] Piperacillin-Tazobactam 3 100 .375 gm In Sodium Chloride 0.9% 100 ml @ 25 mls/hr IVPB Q8HR [facility] Rx# :[id number] Potassium Chloride 20 meq 100 In Water For Injection 1 100ml.bag @ 50 mls/hr IVPB Q2H [facility] Rx#: [id number] Sodium Chloride 0.9% 1, 125 125 000 ml @ 125 mls/hr IV . Q8H [facility] Rx#:[id number] Vasopressin 60 unit In 123.318 Sodium Chloride 0.9% 150 ml @ 0.03 UNITS/MIN 4.59 mls/hr IV .Q24H [facility] Rx#: [id number] metroNIDAZOLE-NS PMX 500 100 mg In Saline 1 100ml.bag @ 100 mls/hr IVPB Q6H [facility] Rx#:[id number] propofoL 1,000 mg In 88.986 76.36 23.64 Empty Bag 1 bag @ 15 MCG/ KG/MIN 4.98 mls/hr IV . Q20H5M [facility] Rx#:[id number] Tube Feeding 0 40 Other 0 Output: Gastric Drainage 50 0 Drainage 15 40 0 Left Lower Abdomen 15 40 0 Urine 305 235 50 Stool 0 150 300 Other: Voiding Method Indwelling Catheter Indwelling Catheter Indwelling Catheter ABP, PAP, CO, CI - Last Documented Arterial Blood Pressure 84/51 - Exam No acute distress S1-S2 heard Oral intubation Decreased breath sounds Edema - Labs CBC & Chem 7: 05/30/23 04:00 05/30/23 04:00 Labs: Abnormal Lab Results - Last 24 Hours (Table) 05/30/23 05/30/23 05/30/23 Range/Units 04:00 04:00 05:55 RBC 3.32 L (3.80-5.40) m/uL Hgb 9.7 L (11.4-16.0) gm/dL Hct 29.4 L (34.0-46.0) % RDW 16.5 H (11.5-15.5) % Plt Count 59 L (150-450) k/uL Neutrophils # (Manual) 7.90 H (1.3-7.7) k/uL Lymphocytes # (Manual) 0.92 L (1.0-4.8) k/uL Metamyelocytes # (Man) 0.18 H (0) k/uL ABG pO2 150 H (83-108) mmHg ABG HCO3 28 H (21-25) mmol/L ABG Total CO2 29 H (19-24) mmol/L ABG O2 Saturation 98.8 H (94-97) % BUN 43 H (7-17) mg/dL Creatinine 1.89 H (0.52-1.04) mg/dL Calcium 5.5 L* (8.4-10.2) mg/dL Ionized Calcium Ines 3.5 L* (4.5-5.3) mg/dL AST 335 H (14-36) U/L ALT 82 H (4-34) U/L Creatine Kinase (30-135) U/L Total Protein 3.5 L (6.3-8.2) g/dL Albumin 1.8 L (3.5-5.0) g/dL 05/30/23 Range/Units 11:00 RBC (3.80-5.40) m/uL Hgb (11.4-16.0) gm/dL Hct (34.0-46.0) % RDW (11.5-15.5) % Plt Count (150-450) k/uL Neutrophils # (Manual) (1.3-7.7) k/uL Lymphocytes # (Manual) (1.0-4.8) k/uL Metamyelocytes # (Man) (0) k/uL ABG pO2 (83-108) mmHg ABG HCO3 (21-25) mmol/L ABG Total CO2 (19-24) mmol/L ABG O2 Saturation (94-97) % BUN (7-17) mg/dL Creatinine (0.52-1.04) mg/dL Calcium (8.4-10.2) mg/dL Ionized Calcium Ines (4.5-5.3) mg/dL AST (14-36) U/L ALT (4-34) U/L Creatine Kinase 89023 H* (30-135) U/L Total Protein (6.3-8.2) g/dL Albumin (3.5-5.0) g/dL Microbiology - Last 24 Hours (Table) 05/27/23 17:03 Gram Stain - Final Sputum Sputum Culture - Final 05/27/23 14:52 Gram Stain - Preliminary Peritoneal Fluid Body Fluid Culture - Preliminary Gram Neg Bacilli 05/26/23 22:39 Blood Culture Gram Stain - Final Blood Blood Culture - Final Escherichia coli Assessment and Plan Assessment: #1 nonoliguric currently oliguric acute kidney injury secondary to ischemic and toxic ATN. -Baseline creatinine 0.8 MG per DL. #2 septic shock secondary to perforated bowel. #3 anion gap metabolic acidosis secondary to acute kidney injury #4 hypocalcemia secondary to bicarb drip #5 hypomagnesemia #6 ventilator dependent respiratory failure Plan: #1 renal function worsening with oliguria. #2 replace electrolytes #3 poor candidate for dialysis, monitor renal function closely #4 ICU care, goals of care
[2023-05-30] MEDS ORDERED: SENNOSIDES 8.6 MG TAB PO PRN (15:03)
--- NOTE | 2023-05-30 15:09 | P.PN ---
Progress Note - Text Progress Note Date: 05/30/23 - Chief Complaint Acute abdomen - History of Present Illness This is a 63-year-old patient, who had severe ileus of right and left: And underwent right and left colectomy with end colostomy by Dr. Worthington on 09/21/2022. on January 29/2023 underwent exploratory laparotomy with takedown of colostomy and takedown of splenic flexure with partial colectomy and repair of incisional hernia and lysis of adhesions by Dr. Worthington. Following that pat jarednt had a three-week stay in the hospital for protracted ileus. And finally was discharged on February 25. Patient then presented to the ER on the evening of May 26. Patient presented here from [facility]. Per EMS report patient had a bowel movement for about 3 days. And increasing abdominal discomfort. Patient has remained nonambulatory. Computed tomography scan in the ER showed large pneumoperitoneum. Large fecal bolus of the rectum. Gallstones. Ascites. Patient seen by Dr. Parikh from general surgery.. Patient was taken to the OR for exploratory laboratory yesterday and had subtotal colectomy with partial proctectomy carried out. About 200 mL of pelvic abscess fecal peritonitis was drained. End ileostomy was carried out. Incisional wound VAC prerenal was placed. Left salpingo-oophorectomy was done. Patient continues clean ICU. On the ventilator intubated. FiO2 40 and a PEEP of 5. Drips include IV vasopressor, levo fed, propofol, bicarbonate. No output from the ileostomy bag. 05/29/2023: ICU. IV propofol. FiO2 50 PEEP of 5. Intubated. Remains on IV Zosyn, IV Flagyl. Extremity bilateral skin mottling. Extremities are cold. On IV vasopressin, IV norepinephrine. Sinus rhythm. No output in the ileostomy. Wound VAC in place. Serosanguineous output out of the PABLO drain. Family at bedside. 05/30/2023: ICU. Intubated. FiO2 40 to PEEP of 5. with the patient DO NOT RESUSCITATE yesterday. Drips include propofol, norepinephrine, vasopressin. 2 feeding started at 10 mL an hour. Putting out liquid stools over the ileostomy bag. No output from the PABLO drain. Patient seen by vascular Dr. Giliberto. Currently no further intervention. Active Medications Albuterol/Ipratropium (Ipratropium-Albuterol 3 Ml Neb) 3 ml INHALATION RT-Q4H [facility] Last Admin: 05/30/23 11:16 Dose: 3 ml Chlorhexidine Gluconate (Chlorhexidine Gluconate 15 Ml Cup) 15 ml MUCOUS MEM BID [facility] Last Admin: 05/30/23 09:15 Dose: 15 ml Hydromorphone HCl (Hydromorphone 1 Mg/Ml 1 Ml Syringe) 1 mg IVP Q3HR PRN PRN Reason: Moderate to Severe Pain (4-10) Last Admin: 05/30/23 14:42 Dose: 1 mg Piperacillin Sod/Tazobactam (Sod 3.375 gm/ Sodium Chloride) 100 mls @ 25 mls/hr IVPB Q8HR [facility]; Protocol Last Admin: 05/30/23 09:15 Dose: 25 mls/hr Metronidazole 500 mg/ IV (Solution) 100 mls @ 100 mls/hr IVPB Q6H [facility]; Protocol Last Admin: 05/30/23 11:05 Dose: 100 mls/hr Norepinephrine Bitartrate 32 (mg/ Sodium Chloride) 250 mls @ 0.778 mls/hr IV .Q24H [facility]; Protocol Last Titration: 05/30/23 13:00 Dose: 0.07 mcg/kg/min, 1.816 mls/hr Propofol 1,000 mg/ IV Solution 100 mls @ 4.98 mls/hr IV .Q20H5M [facility]; Protocol Last Admin: 05/30/23 14:40 Dose: 5 mcg/kg/min, 1.66 mls/hr Vasopressin 60 unit/ Sodium (Chloride) 153 mls @ 4.59 mls/hr IV .Q24H [facility]; Protocol Last Titration: 05/30/23 14:43 Dose: 0.01 units/min, 1.53 mls/hr Sodium Chloride (Saline 0.9%) 1,000 mls @ 125 mls/hr IV .Q8H [facility] Last Admin: 05/30/23 09:15 Dose: 125 mls/hr Miscellaneous Information (Potassium Replacement Protocol 1 Each Misc) 1 each MISCELLANE DAILY PRN; Protocol PRN Reason: Per Protocol Miscellaneous Information (Magnesium Replacement Protocol 1 Each Misc) 1 each MISCELLANE DAILY PRN; Protocol PRN Reason: Per Protocol Miscellaneous Information (Phosphorus Replacement Protoco 1 Each Misc) 1 each MISCELLANE DAILY PRN; Protocol PRN Reason: Per Protocol Naloxone HCl (Naloxone 0.4 Mg/Ml 1 Ml Vial) 0.2 mg IV Q2M PRN PRN Reason: Opioid Reversal Ondansetron HCl (Ondansetron 4 Mg/2 Ml Vial) 4 mg IVP Q8HR PRN PRN Reason: Nausea And Vomiting Pantoprazole Sodium (Pantoprazole 40 Mg/10 Ml Vial) 40 mg IV DAILY [facility] Last Admin: 05/30/23 09:15 Dose: 40 mg Past medical history to include: Hypothyroid, osteomyelitis, COPD, left colectomy with end colostomy Social history: Currently at [facility]. Smokes about half a pack a day since age 21, up to February 2023.. Doesn't really walk currently. Physical examination: VITAL SIGNS: 98.2, 75, 20, 99/57, 97% GENERAL:, In bed, sedated EYES: Pupils equal. Conjunctiva pale HEENT: External appearance of nose and ears normal, oral cavity dry mucous m embranes. ET tube. NECK: JVD unable to assess; masses not palpable. HEART: First and second heart sounds are normal; no edema. LUNGS: Respiratory rate increased; decreased breath sounds. ABDOMEN: Soft,, nontender Liver spleen not palpable, no masses palpable. Midline Provena. Left-sided PABLO minimal output. Right-sided ileostomy bag with liquid stools PSYCH: Sedated MUSCULOSKELETAL:No Clubbing/cyanosis;muscles-grossly intact. Mottling of the lower extremities. Cold lower extremity. INVESTIGATIONS, reviewed in the clinical context: May 30: White count 9.2 hemoglobin 9.7 platelets 59 potassium 3.8 BUN 43 creatinine 1.89 ionized calcium 3.5 CPK [id number] May 29: White count 7.1 hemoglobin 9.7 platelets 59 potassium 3.2 BUN 41 and creatinine 1.59 05/28/2023: White count 4.4 hemoglobin 10.6 platelets 161 2139 potassium 4.5 BUN 40 creatinine 1.67 bicarb 17 calcium 5.9 ionized calcium 3.6 magnesium 1.3 Previous labs: Creatinine 1.28 on 05/26/2023. 0.77 on 02/25/2023. EKG tracing personally reviewed by me-normal sinus rhythm. P pulmonale. Nonspecific T-wave changes. Chest x-ray film personally reviewed by me-hyperinflation CT abdomen pelvis [May 26] large pneumoperitoneum. Large fecal bolus of the rectum. Fecal debris within the redundant sigmoid colon. Because of the volvulus. Cholelithiasis. Ascites. Assessment and plan: -Acute bowel perforation leading to pneumoperitoneum and septic peritonitis. IV Flagyl. IV Zosyn. -Septic shock from above: Severe, slow to respond IV vasopressin, IV levo fed. -Acute metabolic acidosis multifactorial including renal failure: Better -Acute kidney injury, ATN from septic shock.: Worsening Follow with nephrology -Suspect PAD in a patient who smoker Follow with vascular. No current intervention. -Hypocalcemia -Acute rhabdomyolysis, multifactorial -Acute hypoxic respiratory failure, requiring ventilator support: Slow to respond FiO2 50 and a PEEP of 5. -Exploratory laparotomy: Subtotal colectomy with partial proctectomy; Drainage of pelvic abscess/fecal peritonitis, 200-mL; End ileostomy; Placement of round #19 garfield rodriguez drain; Placement of incisional wound vac, 20-cm, PREVENa; Left salpingo-oophorectomy with Dr. Mariely Parikh on May 27. -Reversal of colostomy in February 2023. Right and left colectomy with end colostomy in September [address] Worthington -Acute postprocedure blood loss anemia, expected from surgery contributing to hypotension: Admission hemoglobin 14.9. -GERD PPI -Chronic medical debility from surgery. Other medical conditions. per F patient has recently been nonambulatory. -Hypothyroid Levothyroxin -COPD in a previous smoker DuoNeb every 4 -Anemia of chronic disease hemoglobin 11.3 Iron deficiency from blood loss. Thank you Dr. Parikh. Past Medical History Past Medical History: Cancer, COPD, GERD/Reflux, Osteoarthritis (OA), Pulmonary Embolus (PE), Thyroid Disorder Additional Past Medical History / Comment(s): CANCER APPENDIX, COLOSTOMY, HEART MURMUR., STATES PE 2017., CERVICAL STENOSIS WITH HERNIATED DISC., ABD WOUND DIHISENCE., RESIDES AT [facility]. History of Any Multi-Drug Resistant Organisms: MRSA Year Discovered:: 11/24/22 MDRO Source:: ABD WOUND Past Surgical History: Section Additional Past Surgical History / Comment(s): RIGHT AND LEFT COLECTOMY WITH COLOSTOMY., COLONOSCOPY; ostomy reversal/hernia repair/colectomy (01/29/23). Past Anesthesia/Blood Transfusion Reactions: No Reported Reaction Past Psychological History: No Psychological Hx Reported Smoking Status: Current every day smoker Past Alcohol Use History: None Reported Additional Past Alcohol Use History / Comment(s): SMOKES 1/2 PPD, STARTED SMOKING AGE 21. Past Drug Use History: None Reported - Past Family History Mother History Unknown: Yes Family Medical History: No Reported History Medications and Allergies Home Medications Medication Instructions Recorded Confirmed Type Levothyroxine Sodium [Euthyrox] 75 mcg PO DAILY #30 tab 09/17/22 05/26/23 Rx Ipratropium-Albuterol Nebulize 3 ml INHALATION RT-TID PRN 10/04/22 05/26/23 History [Duoneb 0.5 mg-3 mg/3 ml Soln] Omeprazole [PriLOSEC] 20 mg PO DAILY 10/04/22 05/26/23 History Acetaminophen Tab [Tylenol] 325 mg PO Q6HR PRN 01/26/23 05/26/23 History Calcium Carbonate/Vitamin D3 1 tab PO DAILY 01/26/23 05/26/23 History [Calcium 600 mg-Vit D3 5 mcg (200 unit)] Cholecalciferol [Vitamin D3 (25 25 mcg PO DAILY 01/26/23 05/26/23 History Mcg = 1000 Iu)] Pyridoxine HCl (Vitamin B6) 100 mg PO DAILY 01/26/23 05/26/23 History [Vitamin B-6] HYDROcodone/APAP 5-325MG [[place] 1 tab PO Q6HR PRN 3 Days #12 tab 02/25/23 05/26/23 Rx 5-325] Docusate [Colace] 100 mg PO BID 05/26/23 05/26/23 History Folic Acid 0.4 mg PO HS 05/26/23 05/26/23 History Healthshake 1 dose PO TID 05/26/23 05/26/23 History Magnesium Citrate [Citrate of 1.745 gm PO DAILY PRN 05/26/23 05/26/23 History Magnesia] Multivitamins, Thera [Multivitamin 1 tab PO HS 05/26/23 05/26/23 History (formulary)] Psyllium Husk 100% [Metamucil 6 gm PO DAILY 05/26/23 05/26/23 History Packet] Allergies Allergy/AdvReac Type Severity Reaction Status Date / Time No Known Allergies Allergy Verified 05/26/23 17:49
[2023-05-30 15:18] LABS: Glucose,Whole Blood 69 mg/dL (70-110)
[2023-05-30] MEDS ORDERED: DEXTROSE 50% SYRINGE 50 ML IVP PRN (15:18)
--- NOTE | 2023-05-30 15:19 | P.PN ---
Subjective Progress Note Date: 05/30/23 Principal diagnosis: Sepsis and intra-abdominal abscess Patient is a 63-year-old female with a past medical history significant for COPD PE osteoarthritis patient presented to the hospital 2 days ago for evaluation of abdominal pain, CT abdominal pelvis large pneumoperitoneum with large fecal bolus of the rectum ,patient is status post subtotal colectomy and partial proctectomy. On today's evaluation that is 05/30/2023, the patient continues to be afebrile, the patient is requiring less amount of pressure support to maintain her blood pressure per the nursing staff, patient remains to be intubated on the vent and FiO2 currently at 40% no significant purulent secretion through the ET or any other changes reported by the nursing staff patient did have a hemoglobin of 9.7 and did have a white count of 9.2 , creatinine is 1.89, blood cultures with E. coli. Peritoneal fluid cultures with gram-negative bacilli Objective - Vital Signs Vital signs: Vital Signs Temp 98.2 F 05/30/23 12:00 Pulse 74 05/30/23 13:45 Resp 20 05/30/23 13:45 BP 101/61 05/30/23 13:45 Pulse Ox 97 05/30/23 13:45 FiO2 40 05/30/23 12:00 Intake & Output 05/29/23 05/30/23 05/30/23 18:59 06:59 18:59 Intake Total 8232.743 2412.396 1279.701 Output Total 370 425 385 Balance 8369.539 1840.396 894.701 Weight 75.8 kg Intake: IV 1212 2088 876 0.9 NS KVO 240 260 90 ARTERIAL LINE & CVP 72 78 36 Dextrose 5% in Water 1, 600 000 ml @ 150 mls/hr IV . Q7H40M [facility] with Sodium Bicarb (1 Meq/ml) 150 ml Rx#:[id number] Piperacillin-Tazobactam 3 100 .375 gm In Sodium Chloride 0.9% 100 ml @ 25 mls/hr IVPB Q8HR [facility] Rx# :[id number] Potassium Chloride 20 meq 200 In Water For Injection 1 100ml.bag @ 50 mls/hr IVPB Q2H [facility] Rx#: [id number] Sodium Chloride 0.9% 1, 1750 750 000 ml @ 125 mls/hr IV . Q8H [facility] Rx#:[id number] Intake, IV Titration 344.973 369.396 333.701 Amount Calcium Gluconate in NaCl 100 2 gm In Saline 1 100ml. bag @ 100 mls/hr IVPB ONCE ONE Rx#:[id number] Norepinephrine 32 mg In 30.987 44.718 10.061 Sodium Chloride 0.9% 218 ml @ 0.03 MCG/KG/MIN 0. 778 mls/hr IV .Q24H [facility] Rx#:[id number] Piperacillin-Tazobactam 3 100 .375 gm In Sodium Chloride 0.9% 100 ml @ 25 mls/hr IVPB Q8HR [facility] Rx# :[id number] Potassium Chloride 20 meq 100 In Water For Injection 1 100ml.bag @ 50 mls/hr IVPB Q2H [facility] Rx#: [id number] Sodium Chloride 0.9% 1, 125 125 000 ml @ 125 mls/hr IV . Q8H [facility] Rx#:[id number] Vasopressin 60 unit In 123.318 Sodium Chloride 0.9% 150 ml @ 0.03 UNITS/MIN 4.59 mls/hr IV .Q24H [facility] Rx#: [id number] metroNIDAZOLE-NS PMX 500 100 mg In Saline 1 100ml.bag @ 100 mls/hr IVPB Q6H [facility] Rx#:[id number] propofoL 1,000 mg In 88.986 76.36 23.64 Empty Bag 1 bag @ 15 MCG/ KG/MIN 4.98 mls/hr IV . Q20H5M [facility] Rx#:[id number] Tube Feeding 0 70 Other 0 0 Output: Gastric Drainage 50 0 Drainage 15 40 0 Left Lower Abdomen 15 40 0 Urine 305 235 85 Stool 0 150 300 Other: Voiding Method Indwelling Catheter Indwelling Catheter Indwelling Catheter ABP, PAP, CO, CI - Last Documented Arterial Blood Pressure 79/50 - Exam GENERAL DESCRIPTION: Middle-aged female intubated on the vent RESPIRATORY SYSTEM: Unlabored breathing , decreased breath sounds at bases HEART: S1 S2 regular rate and rhythm , ABDOMEN: Soft , no tenderness EXTREMITIES: No edema feet - Labs CBC & Chem 7: 05/30/23 04:00 05/30/23 04:00 Labs: Abnormal Lab Results - Last 24 Hours (Table) 05/30/23 05/30/23 05/30/23 Range/Units 04:00 04:00 05:55 RBC 3.32 L (3.80-5.40) m/uL Hgb 9.7 L (11.4-16.0) gm/dL Hct 29.4 L (34.0-46.0) % RDW 16.5 H (11.5-15.5) % Plt Count 59 L (150-450) k/uL Neutrophils # (Manual) 7.90 H (1.3-7.7) k/uL Lymphocytes # (Manual) 0.92 L (1.0-4.8) k/uL Metamyelocytes # (Man) 0.18 H (0) k/uL ABG pO2 150 H (83-108) mmHg ABG HCO3 28 H (21-25) mmol/L ABG Total CO2 29 H (19-24) mmol/L ABG O2 Saturation 98.8 H (94-97) % BUN 43 H (7-17) mg/dL Creatinine 1.89 H (0.52-1.04) mg/dL Calcium 5.5 L* (8.4-10.2) mg/dL Ionized Calcium Ines 3.5 L* (4.5-5.3) mg/dL AST 335 H (14-36) U/L ALT 82 H (4-34) U/L Creatine Kinase (30-135) U/L Total Protein 3.5 L (6.3-8.2) g/dL Albumin 1.8 L (3.5-5.0) g/dL 05/30/23 Range/Units 11:00 RBC (3.80-5.40) m/uL Hgb (11.4-16.0) gm/dL Hct (34.0-46.0) % RDW (11.5-15.5) % Plt Count (150-450) k/uL Neutrophils # (Manual) (1.3-7.7) k/uL Lymphocytes # (Manual) (1.0-4.8) k/uL Metamyelocytes # (Man) (0) k/uL ABG pO2 (83-108) mmHg ABG HCO3 (21-25) mmol/L ABG Total CO2 (19-24) mmol/L ABG O2 Saturation (94-97) % BUN (7-17) mg/dL Creatinine (0.52-1.04) mg/dL Calcium (8.4-10.2) mg/dL Ionized Calcium Ines (4.5-5.3) mg/dL AST (14-36) U/L ALT (4-34) U/L Creatine Kinase 60088 H* (30-135) U/L Total Protein (6.3-8.2) g/dL Albumin (3.5-5.0) g/dL Microbiology - Last 24 Hours (Table) 05/27/23 17:03 Gram Stain - Final Sputum Sputum Culture - Final 05/27/23 14:52 Gram Stain - Preliminary Peritoneal Fluid Body Fluid Culture - Preliminary Gram Neg Bacilli 05/26/23 22:39 Blood Culture Gram Stain - Final Blood Blood Culture - Final Escherichia coli Assessment and Plan (1) Sepsis Current Visit: Yes Status: Acute Code(s): A41.9 - SEPSIS, UNSPECIFIED ORGANISM SNOMED Code(s): 91469835 (2) Peritonitis Current Visit: Yes Status: Acute Code(s): K65.9 - PERITONITIS, UNSPECIFIED SNOMED Code(s): 36514245 Plan: 1patient with a septic shock secondary to perforated colorectal anastomosis and bowel ischemia this patient evidence of marginal improvement status post extensive surgery we will need to cover for detailed gram-negative the likely pathogen E. coli bacteremia source likely abdominal which is a sensitive pathogen however resistant to quinolones 2-patient seemed to have shown some clinical improvement as requiring less specific wound, patient to continue with Zosyn 3.375 g every hour and monitor clinical course closely Overall prognosis is still guarded Dictation was produced using [employer] dictation software. please excuse any grammatical, word or spelling errors. Time with Patient: Less than 30
[2023-05-30] MEDS: DEXTROSE 50% SYRINGE 50 ML IVP PRN (15:48)
[2023-05-30] MEDS: NOREPINEPHRINE 32 MG in SODIUM CHLORIDE 0.9% 218 ML IV SCH ×2 (15:51→20:22)
[2023-05-30 16:08] LABS: Glucose,Whole Blood 132 mg/dL (70-110)
[2023-05-30 16:24] LABS: Anion Gap 7 mmol/L; Blood Urea Nitrogen 44 mg/dL (7-17); Carbon Dioxide 26 mmol/L (22-30); Chloride 103 mmol/L (98-107); Glucose 80 mg/dL (74-99); Potassium 3.9 mmol/L (3.5-5.1); Sodium 136 mmol/L (137-145)
[2023-05-30 16:30] LABS: African American GFR (CKD) 29 (>60 ml/min/1.73 sqM); Non-African American GFR(CKD) 25 (>60 ml/min/1.73 sqM)
[2023-05-30 16:36] LABS: Calcium 5.7 mg/dL (8.4-10.2)
[2023-05-30 19:52] LABS: Glucose,Whole Blood 113 mg/dL (70-110)
[2023-05-31 00:07] LABS: Glucose,Whole Blood 127 mg/dL (70-110)
[2023-05-31] MEDS: PIPERACILLIN-TAZOBACTAM 3.375 GM in SODIUM CHLORIDE 0.9% 100 ML IVPB SCH ×2 (00:59→08:25)
[2023-05-31] MEDS: SODIUM CHLORIDE 0.9% 1,000 ML IV SCH ×4 (00:59→21:05)
[2023-05-31] MEDS: IPRATROPIUM-ALBUTEROL 3 ML NEB INHALATION SCH ×6 (03:54→23:52)
[2023-05-31] MEDS: HYDROmorphone 1 MG/ML 1 ML SYRINGE IVP PRN ×2 (04:37→21:25)
[2023-05-31] MEDS: metroNIDAZOLE-NS PMX 500 MG in SALINE 1 100ML.BAG IVPB SCH ×4 (04:38→23:10)
[2023-05-31 04:48] LABS: Anisocytosis Slight; Basophils # (A) 0.1 k/uL (0-0.2); Basophils % (A) 0 %; Eosinophils % (A) 0 %; HCT 30.1 % (34.0-46.0); HGB 9.9 gm/dL (11.4-16.0); Hypochromasia Slight; Lymphocytes # (A) 0.6 k/uL (1.0-4.8); Lymphocytes % (A) 4 %; MCH 29.8 pg (25.0-35.0); MCHC 32.9 g/dL (31.0-37.0); MCV 90.4 fL (80.0-100.0); Mean Platelet Volume 10.6; Monocytes # (A) 0.2 k/uL (0-1.0); Monocytes % (A) 1 %; Neutrophils # (A) 15.7 k/uL (1.3-7.7); Neutrophils % (A) 94 %; RBC 3.33 m/uL (3.80-5.40); RDW 16.6 % (11.5-15.5); WBC 16.7 k/uL (3.8-10.6)
[2023-05-31 04:52] LABS: Platelet Count 57 k/uL (150-450)
[2023-05-31 04:59] LABS: Anion Gap 10 mmol/L; Blood Urea Nitrogen 46 mg/dL (7-17); Carbon Dioxide 22 mmol/L (22-30); Chloride 107 mmol/L (98-107); Glucose 112 mg/dL (74-99); Magnesium 2.1 mg/dL (1.6-2.3); Potassium 3.9 mmol/L (3.5-5.1); Sodium 139 mmol/L (137-145)
[2023-05-31 05:05] LABS: African American GFR (CKD) 26 (>60 ml/min/1.73 sqM); Non-African American GFR(CKD) 23 (>60 ml/min/1.73 sqM)
[2023-05-31 05:07] LABS: Calcium 5.7 mg/dL (8.4-10.2)
[2023-05-31 06:00] LABS: ABG Base Excess -2.3 mmol/L; ABG HCO3 23 mmol/L (21-25); ABG Oxygen Saturation 98.4 % (94-97); ABG PCO2 43 mmHg (35-45); ABG PH 7.34 (7.35-7.45); ABG PO2 148 mmHg (83-108); ABG TCO2 25 mmol/L (19-24); Allen Test Performed? Yes
[2023-05-31] MEDS: CHLORHEXIDINE GLUCONATE 15 ML CUP MUCOUS MEM SCH ×2 (08:25→21:04)
[2023-05-31] MEDS: PANTOPRAZOLE 40 MG/10 ML VIAL IV SCH (08:25)
--- NOTE | 2023-05-31 08:46 | XR ---
EXAMINATION TYPE: XR chest 1V portable DATE OF EXAM: 05/31/2023 5:16 AM COMPARISON: Chest radiographs from TECHNIQUE: XR chest 1V portable Frontal view of the chest. CLINICAL INDICATION:Female, 63 years old with history of Mechanically Ventilated; FINDINGS: Lungs/Pleura: Basilar atelectasis bilaterally. No evidence of focal consolidation or pneumothorax. Bl unting of the costophrenic angles is present. Pulmonary vascularity: Unremarkable. Heart/mediastinum: Cardiomediastinal silhouette is unremarkable. Musculoskeletal: No acute osseous pathology. Other findings: None Lines/Tubes: Endotracheal tube with distal tip 4.1 cm above the ankit. Nasogastric tube with its distal tip and side-port projecting under the diaphragm. Left internal jugular central venous catheter with distal tip at the cavoatrial junction. IMPRESSION: Stable exam with stable line and tubes.
[2023-05-31 10:26] LABS: Appearance,Urine Turbid (Clear); Bacteria,Urine Rare /hpf; Bilirubin,Urine Negative (Negative); Blood,Urine Large (Negative); Glucose,Urine (UA) Negative (Negative); Granular Casts,Urine 4 /lpf (0); Ketones,Urine Trace (Negative); Leukocyte Esterase,Urine Trace (Negative); Mucus,Urine Rare /hpf; Nitrite,Urine Negative (Negative); PH, Urine 5.5 (5.0-8.0); Protein,Urine 1+ (Negative); RBC,Urine 3 /hpf (0-5); Specific Gravity,Urine 1.022 (1.001-1.035); Urobilinogen,Urine <2.0 mg/dL (<2.0); WBC,Urine 9 /hpf (0-5)
[2023-05-31 10:27] LABS: Color,Urine Yellow
--- NOTE | 2023-05-31 11:56 | P.PN ---
Subjective patient is seen for follow-up for acute kidney injury. Patient remains on the vent Urine output at about 20-35 mL an hour. Urine output dropped when blood pressure had decreased and levo fed was subsequently increased again. FiO2 at 35%. Objective - Vital Signs Vital signs: Vital Signs Temp 98.0 F 05/31/23 08:00 Pulse 90 05/31/23 11:00 Resp 20 05/31/23 11:00 BP 110/69 05/31/23 11:00 Pulse Ox 98 05/31/23 11:00 FiO2 35 05/31/23 11:09 Intake & Output 05/30/23 05/31/23 05/31/23 18:59 06:59 18:59 Intake Total 2290.928 2044.603 571.601 Output Total 610 228 95 Balance 0860.908 4327.603 476.601 Weight 76 kg Intake: IV 1581 1833 513 0.9 NS KVO 140 130 20 ARTERIAL LINE & CVP 66 78 18 Piperacillin-Tazobactam 3 100 .375 gm In Sodium Chloride 0.9% 100 ml @ 25 mls/hr IVPB Q8HR [facility] Rx# :[id number] Sodium Chloride 0.9% 1, 1375 1625 375 000 ml @ 125 mls/hr IV . Q8H [facility] Rx#:[id number] Intake, IV Titration 589.928 61.603 48.601 Amount Calcium Gluconate in NaCl 100 2 gm In Saline 1 100ml. bag @ 100 mls/hr IVPB ONCE ONE Rx#:[id number] Norepinephrine 32 mg In 26.273 19.411 29.843 Sodium Chloride 0.9% 218 ml @ 0.03 MCG/KG/MIN 0. 778 mls/hr IV .Q24H [facility] Rx#:[id number] Piperacillin-Tazobactam 3 200 .375 gm In Sodium Chloride 0.9% 100 ml @ 25 mls/hr IVPB Q8HR [facility] Rx# :[id number] Potassium Chloride 20 meq 100 In Water For Injection 1 100ml.bag @ 50 mls/hr IVPB Q2H [facility] Rx#: [id number] Vasopressin 60 unit In 28.229 Sodium Chloride 0.9% 150 ml @ 0.03 UNITS/MIN 4.59 mls/hr IV .Q24H [facility] Rx#: [id number] metroNIDAZOLE-NS PMX 500 100 mg In Saline 1 100ml.bag @ 100 mls/hr IVPB Q6H [facility] Rx#:[id number] propofoL 1,000 mg In 35.426 42.192 18.758 Empty Bag 1 bag @ 15 MCG/ KG/MIN 4.98 mls/hr IV . Q20H5M [facility] Rx#:[id number] Tube Feeding 120 150 10 Other 0 Output: Gastric Drainage 0 Drainage 0 35 Left Lower Abdomen 0 35 Urine 160 193 95 Stool 450 Other: Voiding Method Indwelling Catheter Indwelling Catheter Indwelling Catheter ABP, PAP, CO, CI - Last Documented Arterial Blood Pressure 89/54 - Exam Patient is sedated and on the vent. Examination of the heart S1 and S2 Examination of the lungs bilateral breath sounds are heard Abdomen is soft nontender Examination of lower extremities shows significant mottling bilaterally. Edema noted in upper extremities. - Labs CBC & Chem 7: 05/31/23 04:30 05/31/23 04:30 Labs: Abnormal Lab Results - Last 24 Hours (Table) 05/30/23 05/30/23 05/30/23 Range/Units 11:00 15:10 15:17 WBC (3.8-10.6) k/uL RBC (3.80-5.40) m/uL Hgb (11.4-16.0) gm/dL Hct (34.0-46.0) % RDW (11.5-15.5) % Plt Count (150-450) k/uL Neutrophils # (1.3-7.7) k/uL Lymphocytes # (1.0-4.8) k/uL ABG pH (7.35-7.45) ABG pO2 (83-108) mmHg ABG Total CO2 (19-24) mmol/L ABG O2 Saturation (94-97) % Sodium 136 L (137-145) mmol/L BUN 44 H (7-17) mg/dL Creatinine 2.05 H (0.52-1.04) mg/dL Glucose (74-99) mg/dL POC Glucose (mg/dL) 69 L (70-110) mg/dL Calcium 5.7 L* (8.4-10.2) mg/dL Creatine Kinase 37811 H* (30-135) U/L Urine Appearance (Clear) Urine Protein (Negative) Urine Ketones (Negative) Urine Blood (Negative) Ur Leukocyte Esterase (Negative) Urine WBC (0-5) /hpf Urine Bacteria (None) /hpf Urine Mucus (None) /hpf 05/30/23 05/30/23 05/31/23 Range/Units 16:07 19:51 00:06 WBC (3.8-10.6) k/uL RBC (3.80-5.40) m/uL Hgb (11.4-16.0) gm/dL Hct (34.0-46.0) % RDW (11.5-15.5) % Plt Count (150-450) k/uL Neutrophils # (1.3-7.7) k/uL Lymphocytes # (1.0-4.8) k/uL ABG pH (7.35-7.45) ABG pO2 (83-108) mmHg ABG Total CO2 (19-24) mmol/L ABG O2 Saturation (94-97) % Sodium (137-145) mmol/L BUN (7-17) mg/dL Creatinine (0.52-1.04) mg/dL Glucose (74-99) mg/dL POC Glucose (mg/dL) 132 H 113 H 127 H (70-110) mg/dL Calcium (8.4-10.2) mg/dL Creatine Kinase (30-135) U/L Urine Appearance (Clear) Urine Protein (Negative) Urine Ketones (Negative) Urine Blood (Negative) Ur Leukocyte Esterase (Negative) Urine WBC (0-5) /hpf Urine Bacteria (None) /hpf Urine Mucus (None) /hpf 05/31/23 05/31/23 05/31/23 Range/Units 04:30 04:30 04:30 WBC 16.7 H (3.8-10.6) k/uL RBC 3.33 L (3.80-5.40) m/uL Hgb 9.9 L (11.4-16.0) gm/dL Hct 30.1 L (34.0-46.0) % RDW 16.6 H (11.5-15.5) % Plt Count 57 L (150-450) k/uL Neutrophils # 15.7 H (1.3-7.7) k/uL Lymphocytes # 0.6 L (1.0-4.8) k/uL ABG pH (7.35-7.45) ABG pO2 (83-108) mmHg ABG Total CO2 (19-24) mmol/L ABG O2 Saturation (94-97) % Sodium (137-145) mmol/L BUN 46 H (7-17) mg/dL Creatinine 2.24 H (0.52-1.04) mg/dL Glucose 112 H (74-99) mg/dL POC Glucose (mg/dL) (70-110) mg/dL Calcium 5.7 L* (8.4-10.2) mg/dL Creatine Kinase 09748 H* (30-135) U/L Urine Appearance (Clear) Urine Protein (Negative) Urine Ketones (Negative) Urine Blood (Negative) Ur Leukocyte Esterase (Negative) Urine WBC (0-5) /hpf Urine Bacteria (None) /hpf Urine Mucus (None) /hpf 05/31/23 05/31/23 Range/Units 05:56 10:07 WBC (3.8-10.6) k/uL RBC (3.80-5.40) m/uL Hgb (11.4-16.0) gm/dL Hct (34.0-46.0) % RDW (11.5-15.5) % Plt Count (150-450) k/uL Neutrophils # (1.3-7.7) k/uL Lymphocytes # (1.0-4.8) k/uL ABG pH 7.34 L (7.35-7.45) ABG pO2 148 H (83-108) mmHg ABG Total CO2 25 H (19-24) mmol/L ABG O2 Saturation 98.4 H (94-97) % Sodium (137-145) mmol/L BUN (7-17) mg/dL Creatinine (0.52-1.04) mg/dL Glucose (74-99) mg/dL POC Glucose (mg/dL) (70-110) mg/dL Calcium (8.4-10.2) mg/dL Creatine Kinase (30-135) U/L Urine Appearance Turbid H (Clear) Urine Protein 1+ H (Negative) Urine Ketones Trace H (Negative) Urine Blood Large H (Negative) Ur Leukocyte Esterase Trace H (Negative) Urine WBC 9 H (0-5) /hpf Urine Bacteria Rare H (None) /hpf Urine Mucus Rare H (None) /hpf Microbiology - Last 24 Hours (Table) 05/27/23 14:52 Anaerobic Culture - Preliminary Peritoneal Fluid Anaerobic Gm Negative Bacilli Anaerobic Gm Negative Bacilli#2 Anaerobic Gm Negative Bacilli#3 05/27/23 14:52 Gram Stain - Final Peritoneal Fluid Body Fluid Culture - Final Escherichia coli Enterococcus raffinosus 05/27/23 17:03 Gram Stain - Final Sputum Sputum Culture - Final Assessment and Plan Assessment: 1. Nonoliguric ATN, ischemic and toxic.UA shows trace protein. Baseline creatinine around 0.8 mg/dL. 2. Septic shock secondary to perforated bowel 3. Anion gap metabolic acidosis secondary to acute kidney injury 4. Hypomagnesemia status post replacement 5. Acute hypoxic respiratory failure currently on the vent Plan: continue with pressors Continue with antibiotics. No indication for renal replacement therapy today. We will continue to monitor
[2023-05-31 12:05] LABS: Glucose,Whole Blood 151 mg/dL (70-110)
[2023-05-31 12:05] LABS: Glucose,Whole Blood 109 mg/dL (70-110)
--- NOTE | 2023-05-31 12:20 | P.PN ---
Subjective Progress Note Date: 05/31/23 Principal diagnosis: Septic shock secondary to acute pneumoperitoneum and abdominal sepsis This is a 63-year-old female patient is currently being seen in the intensive care unit following abdominal surgery. The patient presented to the hospital because of abdominal pain and surgical consultation was obtained as the patient was found to have pneumoperitoneum. The patient had a CAT scan of the abdomen and pelvis that was done 05/26/2023 and the patient was found to have large pneumoperitoneum, large fecal bolus in the rectum. Fecal material was also seen in the sigmoid colon. There was evidence of cholelithiasis and ascites. Based on those findings, the patient was taken to the operating room today and the patient was given an LAD, subtotal colectomy, partial proctectomy and and ileostomy and open fecal decompression drainage of fecal peritonitis and left also also oophprectomy and salpingectomy. Postop, the patient was brought into the intensive care unit. She has already received a total of 5 L of IV fluids. Most recent BP is 81/50. The patient is also on pressors and norepinephrine is running at 0.25 mcg/kg/m. The patient has improved in her urine output which is producing approximately 40 mL an hour. She is fully sedated on propofol which is running at 50 mcg/kg/m. She is, comfortable and symptoms of the mechanical ventilator. I reviewed the initial blood gas that showed a pH of 7.12 with a pCO2 of 48 and a pO2 of more than 400. Subsequently, the patient was placed on assist-control mode at the rate of 26, tidal volume of 400 and FiO2 has been weaned down to 40% and she is currently on a PEEP of 5. The chest x-ray that was done following her abdominal surgery showed adequate positioning of 82. There is no evidence of any acute abnormalities. She has a left IJ triple-lumen catheter in place. The patient had evidence of renal failure, likely acute due to BUN of 47 and a creatinine of 1.78. She also has a mild anion gap metabolic acidosis. The lactic acid level was 2.7. Calcium level was low at 6.3. Serum albumin was 2.6 with a total protein of 4.8. The white cell cause of 3.2 with a hemoglobin of 11.4. She has a NG tube in place. Output from the NG is minimal are brown. Her white suppositive 3.2 with a hemoglobin of 11.4. She is currently covered with IV Zosyn and Flagyl. She was ordered started on a bicarb infusion. Note that the patient has had multiple abdominal surgeries in the past. She has undergone a previous right and left colectomy with end colostomy in September 2022 and subsequent reversal of the colostomy. She has COPD, hypothyroidism and she is a chronic smoker. The patient has had previous episodes of small bowel obstruction and large bowel obstruction. She suffers from chronic constipation. She is status post colectomy and colostomy for chronic thickened impaction approximately 9 months ago. She underwent subsequent reversal approximately 4 months ago but colostomy. On 05/30/2023, the patient is being seen for a follow-up. She remains critically ill following abdominal surgery and the patient continues to be septic although her condition is somewhat improved compared to yesterday. The skin mottling over the abdomen and lower extremity is improved and the patient continues to have absent pulses on the popliteal in her lower extremities bilaterally. She is more warm lower extremities and the cold and clamminess has essentially recovered. Meanwhile, she was seen by vascular surgery and no intervention has been recommended. She continues to be septic features re quiring pressors although the pressor requirements have improved compared to yesterday. She is on norepinephrine running at 0.1 microvascular kilogram per minute and she is also on vasopressin physiologic dose. She remains on a mechanical ventilator. Propofol is running at a dose of 20 mcg/kg/m. She is on assist-control mode of mechanical ventilation, rate of 20, tidal volume of 400, FiO2 of 40% with a PEEP of 5. Blood gas from today shows a pH of 7.44 with a pCO2 of 41 and pO2 of 150. Chest x-ray shows stable findings. Orotracheal tube is in a good location. NG tube is in a good location. She did have some left basilar atelectasis. Meanwhile, the NG tube is in place, output is in order of minimal.The ostomy is functional and there is some liquidy material collecting an ileostomy bag. PABLO drain output is minimal and it is serosanguineous. Abdominal wound looks dry clean and intact. The patient is arousable. She grimaces to painful stimulation. She remains on the sedation. The creatinine is up to 1.89 as the patient suffered an acute kidney injury. BUN is 43, sodium is 138 and the potassium levels at 3.8. The patient has a white cell count of 9.2 with a hemoglobin of 9.7. She remains nothing by mouth for the time being. Platelet count has been dropping and is currently down to 59. Heparin was discontinued yesterday. She remains on a combination of Zosyn and Flagyl. Cultures expected leak going gram-negative bacillus from the abdomen in the blood culture was also positive for E. coli and this E. coli is quinolone resistant. The patient is postop day #4 for the time being. Reevaluated today on 05/31/2023, patient remains in the ICU, intubated and mecha nically ventilated. She is on assist control rate of 2010 volume 400 FiO2 40% and PEEP of 5, ABG showed a pO2 of 148 pCO2 43 pH of 7.34 hence FiO2 was cut down to 35%. Patient is obviously quite ill, she remains very mottled with poor pulses in lower extremities remains on multiple pressors relatively high-dose including vasopressin at 0.03, norepinephrine at 0.14 mcg/kg/m upper followed at 15 mcg/kg/m. Her previous blood cultures have showed E. coli her urine output is 10-15 mL per hour. However went up as the norepinephrine was increased. Her mean arterial pressure is ranging between 60 up to 68. Remains on Flagyl and Zosyn continues to have colostomy in place, 55 mL output from the colostomy overnight. CODE STATUS has been changed to DO NOT RESUSCITATE patient remains on vital HPI 10 mL per hour. Chest x-ray continues to show left lower lobe consolidation. Overall the patient is doing poorly and she is quite ill. WBC count is 16.7 hemoglobin is 9.9, basic metabolic profile is normal bicarb is 22 BUN is 46 creatinine 2.24. Remains on Zosyn empirically she is also on Flagyl repeat blood cultures were requested today. Her last blood cultures were positive for E. coli Objective - Vital Signs Vital signs: Vital Signs Temp 98.0 F 05/31/23 08:00 Pulse 85 05/31/23 11:59 Resp 20 05/31/23 11:00 BP 110/69 05/31/23 11:00 Pulse Ox 98 05/31/23 11:00 FiO2 35 05/31/23 11:52 Intake & Output 05/30/23 05/31/23 05/31/23 18:59 06:59 18:59 Intake Total 2290.928 2044.603 943.601 Output Total 610 228 145 Balance 3444.472 3965.603 798.601 Weight 76 kg 76 kg Intake: IV 1581 1833 885 0.9 NS KVO 140 130 30 ARTERIAL LINE & CVP 66 78 30 Piperacillin-Tazobactam 3 100 .375 gm In Sodium Chloride 0.9% 100 ml @ 25 mls/hr IVPB Q8HR [facility] Rx# :[id number] Sodium Chloride 0.9% 1, 1375 1625 625 000 ml @ 125 mls/hr IV . Q8H [facility] Rx#:[id number] metroNIDAZOLE-NS PMX 500 100 mg In Saline 1 100ml.bag @ 100 mls/hr IVPB Q6H [facility] Rx#:[id number] Intake, IV Titration 589.928 61.603 48.601 Amount Calcium Gluconate in NaCl 100 2 gm In Saline 1 100ml. bag @ 100 mls/hr IVPB ONCE ONE Rx#:[id number] Norepinephrine 32 mg In 26.273 19.411 29.843 Sodium Chloride 0.9% 218 ml @ 0.03 MCG/KG/MIN 0. 778 mls/hr IV .Q24H [facility] Rx#:[id number] Piperacillin-Tazobactam 3 200 .375 gm In Sodium Chloride 0.9% 100 ml @ 25 mls/hr IVPB Q8HR [facility] Rx# :[id number] Potassium Chloride 20 meq 100 In Water For Injection 1 100ml.bag @ 50 mls/hr IVPB Q2H [facility] Rx#: [id number] Vasopressin 60 unit In 28.229 Sodium Chloride 0.9% 150 ml @ 0.03 UNITS/MIN 4.59 mls/hr IV .Q24H [facility] Rx#: [id number] metroNIDAZOLE-NS PMX 500 100 mg In Saline 1 100ml.bag @ 100 mls/hr IVPB Q6H [facility] Rx#:[id number] propofoL 1,000 mg In 35.426 42.192 18.758 Empty Bag 1 bag @ 15 MCG/ KG/MIN 4.98 mls/hr IV . Q20H5M [facility] Rx#:[id number] Tube Feeding 120 150 10 Other 0 Output: Gastric Drainage 0 Drainage 0 35 Left Lower Abdomen 0 35 Urine 160 193 145 Stool 450 Other: Voiding Method Indwelling Catheter Indwelling Catheter Indwelling Catheter ABP, PAP, CO, CI - Last Documented Arterial Blood Pressure 89/54 - Exam Physical Exam: Revealed 63-year-old female, frail looking, intubated mechanically ventilated, orogastric tube and endotracheal tube are intact. Head: Atraumatic, normocephalic. HEENT:[Neck is supple.] [No neck masses.] [No thyromegaly.] [No JVD.] Chest: [Diminished breath sounds and crackles at the left base. Cardiac Exam: [Normal S1 and S2, no S3 gallop, no murmur.] Abdomen: [Postsurgical, soft, nontender, diminished bowel sounds. One VAC has been removed. Extremities: [Significant mottling noted in the lower extremities with diminished distal pulses. Feet are both cold. Neurological Exam: Could not assess, patient is sedated. Psychiatric: Could not assess. Skin: Mottling of the skin is noted especially in lower extremities and in the abdominal area - Labs CBC & Chem 7: 05/31/23 04:30 05/31/23 04:30 Labs: Abnormal Lab Results - Last 24 Hours (Table) 05/30/23 05/30/23 05/30/23 Range/Units 15:10 15:17 16:07 WBC (3.8-10.6) k/uL RBC (3.80-5.40) m/uL Hgb (11.4-16.0) gm/dL Hct (34.0-46.0) % RDW (11.5-15.5) % Plt Count (150-450) k/uL Neutrophils # (1.3-7.7) k/uL Lymphocytes # (1.0-4.8) k/uL ABG pH (7.35-7.45) ABG pO2 (83-108) mmHg ABG Total CO2 (19-24) mmol/L ABG O2 Saturation (94-97) % Sodium 136 L (137-145) mmol/L BUN 44 H (7-17) mg/dL Creatinine 2.05 H (0.52-1.04) mg/dL Glucose (74-99) mg/dL POC Glucose (mg/dL) 69 L 132 H (70-110) mg/dL Calcium 5.7 L* (8.4-10.2) mg/dL Creatine Kinase (30-135) U/L Urine Appearance (Clear) Urine Protein (Negative) Urine Ketones (Negative) Urine Blood (Negative) Ur Leukocyte Esterase (Negative) Urine WBC (0-5) /hpf Urine Bacteria (None) /hpf Urine Mucus (None) /hpf 05/30/23 05/31/23 05/31/23 Range/Units 19:51 00:06 04:30 WBC (3.8-10.6) k/uL RBC (3.80-5.40) m/uL Hgb (11.4-16.0) gm/dL Hct (34.0-46.0) % RDW (11.5-15.5) % Plt Count (150-450) k/uL Neutrophils # (1.3-7.7) k/uL Lymphocytes # (1.0-4.8) k/uL ABG pH (7.35-7.45) ABG pO2 (83-108) mmHg ABG Total CO2 (19-24) mmol/L ABG O2 Saturation (94-97) % Sodium (137-145) mmol/L BUN (7-17) mg/dL Creatinine (0.52-1.04) mg/dL Glucose (74-99) mg/dL POC Glucose (mg/dL) 113 H 127 H (70-110) mg/dL Calcium (8.4-10.2) mg/dL Creatine Kinase 33725 H* (30-135) U/L Urine Appearance (Clear) Urine Protein (Negative) Urine Ketones (Negative) Urine Blood (Negative) Ur Leukocyte Esterase (Negative) Urine WBC (0-5) /hpf Urine Bacteria (None) /hpf Urine Mucus (None) /hpf 05/31/23 05/31/23 05/31/23 Range/Units 04:30 04:30 05:56 WBC 16.7 H (3.8-10.6) k/uL RBC 3.33 L (3.80-5.40) m/uL Hgb 9.9 L (11.4-16.0) gm/dL Hct 30.1 L (34.0-46.0) % RDW 16.6 H (11.5-15.5) % Plt Count 57 L (150-450) k/uL Neutrophils # 15.7 H (1.3-7.7) k/uL Lymphocytes # 0.6 L (1.0-4.8) k/uL ABG pH 7.34 L (7.35-7.45) ABG pO2 148 H (83-108) mmHg ABG Total CO2 25 H (19-24) mmol/L ABG O2 Saturation 98.4 H (94-97) % Sodium (137-145) mmol/L BUN 46 H (7-17) mg/dL Creatinine 2.24 H (0.52-1.04) mg/dL Glucose 112 H (74-99) mg/dL POC Glucose (mg/dL) (70-110) mg/dL Calcium 5.7 L* (8.4-10.2) mg/dL Creatine Kinase (30-135) U/L Urine Appearance (Clear) Urine Protein (Negative) Urine Ketones (Negative) Urine Blood (Negative) Ur Leukocyte Esterase (Negative) Urine WBC (0-5) /hpf Urine Bacteria (None) /hpf Urine Mucus (None) /hpf 05/31/23 05/31/23 Range/Units 10:07 11:59 WBC (3.8-10.6) k/uL RBC (3.80-5.40) m/uL Hgb (11.4-16.0) gm/dL Hct (34.0-46.0) % RDW (11.5-15.5) % Plt Count (150-450) k/uL Neutrophils # (1.3-7.7) k/uL Lymphocytes # (1.0-4.8) k/uL ABG pH (7.35-7.45) ABG pO2 (83-108) mmHg ABG Total CO2 (19-24) mmol/L ABG O2 Saturation (94-97) % Sodium (137-145) mmol/L BUN (7-17) mg/dL Creatinine (0.52-1.04) mg/dL Glucose (74-99) mg/dL POC Glucose (mg/dL) 151 H (70-110) mg/dL Calcium (8.4-10.2) mg/dL Creatine Kinase (30-135) U/L Urine Appearance Turbid H (Clear) Urine Protein 1+ H (Negative) Urine Ketones Trace H (Negative) Urine Blood Large H (Negative) Ur Leukocyte Esterase Trace H (Negative) Urine WBC 9 H (0-5) /hpf Urine Bacteria Rare H (None) /hpf Urine Mucus Rare H (None) /hpf Microbiology - Last 24 Hours (Table) 05/27/23 14:52 Anaerobic Culture - Preliminary Peritoneal Fluid Anaerobic Gm Negative Bacilli Anaerobic Gm Negative Bacilli#2 Anaerobic Gm Negative Bacilli#3 05/27/23 14:52 Gram Stain - Final Peritoneal Fluid Body Fluid Culture - Final Escherichia coli Enterococcus raffinosus 05/27/23 17:03 Gram Stain - Final Sputum Sputum Culture - Final Assessment and Plan Assessment: Impression: Septic shock secondary to acute pneumoperitoneum and abdominal sepsis Acute fecal peritonitis Chronic constipation with previous right and left colectomy and colostomy with subsequent reversal Acute kidney injury secondary to above History of underlying COPD Acute hypoxic and hypercapnic respiratory failure secondary to above History of appendiceal carcinoma Remote history of pulmonary embolism, not anticoagulated History of cervical C3 stenosis Degenerative joint disease Chronic medical debility, care home resident Acute thrombocytopenia secondary to sepsis Severe protein calorie malnutrition with hypoproteinemia and hypoalbuminemia Absent peripheral pulses in lower extremities with skin mottling secondary to sepsis and secondary to pressors Recommendation: Continue ventilatory support Continue sedation Continue hemodynamic support and titrate pressors accordingly Not quite ready for any weaning trials Continue nutritional support, as per surgery on the case to decide on nutritional support Continue pressors and titrate accordingly Continue GI and DVT prophylaxis/Protonix and subcu heparin Continue bronchodilators Continue antibiotics and/Zosyn and Flagyl Continue to monitor output from the PABLO drain Requested. Blood cultures, previous blood cultures showed E. coli Patient is obviously critically ill Critical care time is over 30 minutes Time with Patient: Greater than 30
[2023-05-31] MEDS ORDERED: VANCOMYCIN IV PER PHARMACY 1 EACH MISC MISCELLANE PRN (12:44)
[2023-05-31] MEDS ORDERED: AMPICILLIN-SULBACTAM 3 GM in SODIUM CHLORIDE 0.9% 100 ML IVPB SCH (12:45)
[2023-05-31] MEDS ORDERED: VANCOMYCIN 1,500 MG in SODIUM CHLORIDE 0.9% 500 ML 500 ML IVPB ONE (13:00)
--- NOTE | 2023-05-31 13:56 | P.PN ---
Subjective Progress Note Date: 05/31/23 CHIEF COMPLAINT: Perforated colorectal anastomosis HISTORY OF PRESENT ILLNESS: Patient is postop day #4 status post exploratory laparotomy, subtotal colectomy with partial proctectomy, drainage of pelvic a bscess, and ileostomy, open fecal disimpaction and left salpingo-oophorectomy. Patient remains in the ICU and on mechanical ventilation. She also is requiring Levophed and vasopressin. She is on a sedation holiday. Urine output has been low. Afebrile. WBC is up at 16.7 Hgb 9.9 platelets 57 . Cr elevated 2.24 . CPK level elevated. Critical care services repeating blood cultures and urine r egarding leukocytosis. PHYSICAL EXAM: VITAL SIGNS: Reviewed GENERAL: Well-developed in no acute distress. HEENT: No sclera icterus. Moist buccal mucosa. Head is atraumatic, normocephalic. No nasal drainage. NECK: Supple without lymphadenopathy. CHEST: Non-labored respirations and equal bilateral excursions. CARDIOVASCULAR: Palpable 2+ radial pulses. ABDOMEN: Soft. Distended. Ostomy bag small amount of yellow liquid. Ostomy is pink. Patient has bruising on abdominal wall between the ostomy and Prevana wound vac. Wound vac is intact. NG tube in place MUSCULOSKELETAL: No clubbing or cyanosis. NEUROLOGIC: No focal or lateralizing signs. Cranial nerves II through XII grossly intact. SKIN: Mottling lower extremities ASSESSMENT: 1. Perforated colorectal anastomosis due to colorectal stenosis 2. Bowel ischemia 3. Fecal impaction 4. Chronic constipation 5. History of colostomy reversal 6. Gastroesophageal reflux disease 7. Hypothyroidism 8. Chronic obstructive pulmonary disease 9. History of pulmonary embolism 10. Tobacco abuse disorder 11. 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 Fecal peritonitis 15. Pelvic abscess 16. Sepsis with septic shock 17. Adhesive band 18. Leukocytosis PLAN: -Continue ICU management -Continue supportive care -Continue antibiotics -Continue IV fluids -DVT prophylaxis subcu heparin Physician Labeler note has been reviewed by physician. Signing provider agrees with the documented findings, assessment, and plan of care. Objective - Vital Signs Vital signs: Vital Signs Temp 98.0 F 05/31/23 08:00 Pulse 85 05/31/23 11:59 Resp 20 05/31/23 11:00 BP 110/69 05/31/23 11:00 Pulse Ox 98 08/28/23 11:00 FiO2 35 05/31/23 11:52 Intake & Output 05/30/23 05/31/23 05/31/23 18:59 06:59 18:59 Intake Total 2290.928 2044.603 957.213 Output Total 610 228 145 Balance 2434.978 1190.603 812.213 Weight 76 kg 76 kg Intake: IV 1581 1833 885 0.9 NS KVO 140 130 30 ARTERIAL LINE & CVP 66 78 30 Piperacillin-Tazobactam 3 100 .375 gm In Sodium Chloride 0.9% 100 ml @ 25 mls/hr IVPB Q8HR [facility] Rx# :[id number] Sodium Chloride 0.9% 1, 1375 1625 625 000 ml @ 125 mls/hr IV . Q8H [facility] Rx#:[id number] metroNIDAZOLE-NS PMX 500 100 mg In Saline 1 100ml.bag @ 100 mls/hr IVPB Q6H [facility] Rx#:[id number] Intake, IV Titration 589.928 61.603 62.213 Amount Calcium Gluconate in NaCl 100 2 gm In Saline 1 100ml. bag @ 100 mls/hr IVPB ONCE ONE Rx#:[id number] Norepinephrine 32 mg In 26.273 19.411 29.843 Sodium Chloride 0.9% 218 ml @ 0.03 MCG/KG/MIN 0. 778 mls/hr IV .Q24H [facility] Rx#:[id number] Piperacillin-Tazobactam 3 200 .375 gm In Sodium Chloride 0.9% 100 ml @ 25 mls/hr IVPB Q8HR [facility] Rx# :[id number] Potassium Chloride 20 meq 100 In Water For Injection 1 100ml.bag @ 50 mls/hr IVPB Q2H [facility] Rx#: [id number] Vasopressin 60 unit In 28.229 Sodium Chloride 0.9% 150 ml @ 0.03 UNITS/MIN 4.59 mls/hr IV .Q24H [facility] Rx#: [id number] metroNIDAZOLE-NS PMX 500 100 mg In Saline 1 100ml.bag @ 100 mls/hr IVPB Q6H [facility] Rx#:[id number] propofoL 1,000 mg In 35.426 42.192 32.370 Empty Bag 1 bag @ 15 MCG/ KG/MIN 4.98 mls/hr IV . Q20H5M [facility] Rx#:[id number] Tube Feeding 120 150 10 Other 0 Output: Gastric Drainage 0 Drainage 0 35 Left Lower Abdomen 0 35 Urine 160 193 145 Stool 450 Other: Voiding Method Indwelling Catheter Indwelling Catheter Indwelling Catheter ABP, PAP, CO, CI - Last Documented Arterial Blood Pressure 89/54 - Labs CBC & Chem 7: 05/31/23 04:30 05/31/23 04:30 Labs: Abnormal Lab Results - Last 24 Hours (Table) 05/30/23 05/30/23 05/30/23 Range/Units 15:10 15:17 16:07 WBC (3.8-10.6) k/uL RBC (3.80-5.40) m/uL Hgb (11.4-16.0) gm/dL Hct (34.0-46.0) % RDW (11.5-15.5) % Plt Count (150-450) k/uL Neutrophils # (1.3-7.7) k/uL Lymphocytes # (1.0-4.8) k/uL ABG pH (7.35-7.45) ABG pO2 (83-108) mmHg ABG Total CO2 (19-24) mmol/L ABG O2 Saturation (94-97) % Sodium 136 L (137-145) mmol/L BUN 44 H (7-17) mg/dL Creatinine 2.05 H (0.52-1.04) mg/dL Glucose (74-99) mg/dL POC Glucose (mg/dL) 69 L 132 H (70-110) mg/dL Calcium 5.7 L* (8.4-10.2) mg/dL Creatine Kinase (30-135) U/L Urine Appearance (Clear) Urine Protein (Negative) Urine Ketones (Negative) Urine Blood (Negative) Ur Leukocyte Esterase (Negative) Urine WBC (0-5) /hpf Urine Bacteria (None) /hpf Urine Mucus (None) /hpf 05/30/23 05/31/23 05/31/23 Range/Units 19:51 00:06 04:30 WBC (3.8-10.6) k/uL RBC (3.80-5.40) m/uL Hgb (11.4-16.0) gm/dL Hct (34.0-46.0) % RDW (11.5-15.5) % Plt Count (150-450) k/uL Neutrophils # (1.3-7.7) k/uL Lymphocytes # (1.0-4.8) k/uL ABG pH (7.35-7.45) ABG pO2 (83-108) mmHg ABG Total CO2 (19-24) mmol/L ABG O2 Saturation (94-97) % Sodium (137-145) mmol/L BUN (7-17) mg/dL Creatinine (0.52-1.04) mg/dL Glucose (74-99) mg/dL POC Glucose (mg/dL) 113 H 127 H (70-110) mg/dL Calcium (8.4-10.2) mg/dL Creatine Kinase 31339 H* (30-135) U/L Urine Appearance (Clear) Urine Protein (Negative) Urine Ketones (Negative) Urine Blood (Negative) Ur Leukocyte Esterase (Negative) Urine WBC (0-5) /hpf Urine Bacteria (None) /hpf Urine Mucus (None) /hpf 05/31/23 05/31/23 05/31/23 Range/Units 04:30 04:30 05:56 WBC 16.7 H (3.8-10.6) k/uL RBC 3.33 L (3.80-5.40) m/uL Hgb 9.9 L (11.4-16.0) gm/dL Hct 30.1 L (34.0-46.0) % RDW 16.6 H (11.5-15.5) % Plt Count 57 L (150-450) k/uL Neutrophils # 15.7 H (1.3-7.7) k/uL Lymphocytes # 0.6 L (1.0-4.8) k/uL ABG pH 7.34 L (7.35-7.45) ABG pO2 148 H (83-108) mmHg ABG Total CO2 25 H (19-24) mmol/L ABG O2 Saturation 98.4 H (94-97) % Sodium (137-145) mmol/L BUN 46 H (7-17) mg/dL Creatinine 2.24 H (0.52-1.04) mg/dL Glucose 112 H (74-99) mg/dL POC Glucose (mg/dL) (70-110) mg/dL Calcium 5.7 L* (8.4-10.2) mg/dL Creatine Kinase (30-135) U/L Urine Appearance (Clear) Urine Protein (Negative) Urine Ketones (Negative) Urine Blood (Negative) Ur Leukocyte Esterase (Negative) Urine WBC (0-5) /hpf Urine Bacteria (None) /hpf Urine Mucus (None) /hpf 05/31/23 05/31/23 Range/Units 10:07 11:59 WBC (3.8-10.6) k/uL RBC (3.80-5.40) m/uL Hgb (11.4-16.0) gm/dL Hct (34.0-46.0) % RDW (11.5-15.5) % Plt Count (150-450) k/uL Neutrophils # (1.3-7.7) k/uL Lymphocytes # (1.0-4.8) k/uL ABG pH (7.35-7.45) ABG pO2 (83-108) mmHg ABG Total CO2 (19-24) mmol/L ABG O2 Saturation (94-97) % Sodium (137-145) mmol/L BUN (7-17) mg/dL Creatinine (0.52-1.04) mg/dL Glucose (74-99) mg/dL POC Glucose (mg/dL) 151 H (70-110) mg/dL Calcium (8.4-10.2) mg/dL Creatine Kinase (30-135) U/L Urine Appearance Turbid H (Clear) Urine Protein 1+ H (Negative) Urine Ketones Trace H (Negative) Urine Blood Large H (Negative) Ur Leukocyte Esterase Trace H (Negative) Urine WBC 9 H (0-5) /hpf Urine Bacteria Rare H (None) /hpf Urine Mucus Rare H (None) /hpf Microbiology - Last 24 Hours (Table) 05/27/23 14:52 Anaerobic Culture - Preliminary Peritoneal Fluid Anaerobic Gm Negative Bacilli Anaerobic Gm Negative Bacilli#2 Anaerobic Gm Negative Bacilli#3 05/27/23 14:52 Gram Stain - Final Peritoneal Fluid Body Fluid Culture - Final Escherichia coli Enterococcus raffinosus 05/27/23 17:03 Gram Stain - Final Sputum Sputum Culture - Final
[2023-05-31] MEDS: AMPICILLIN-SULBACTAM 3 GM in SODIUM CHLORIDE 0.9% 100 ML IVPB SCH ×2 (14:19→21:08)
[2023-05-31] MEDS: VASOPRESSIN 60 UNIT in SODIUM CHLORIDE 0.9% 150 ML IV SCH (17:20)
--- NOTE | 2023-05-31 17:26 | P.PN ---
Subjective Progress Note Date: 05/31/23 Principal diagnosis: Sepsis and intra-abdominal abscess Patient is a 63-year-old female with a past medical history significant for COPD PE osteoarthritis patient presented to the hospital 2 days ago for evaluation of abdominal pain, CT abdominal pelvis large pneumoperitoneum with large fecal bolus of the rectum ,patient is status post subtotal colectomy and partial proctectomy. On today's evaluation that is 05/31/2023, the patient remains to be afebrile, the patient is requiring more amount of pressure support to maintain her blood pressure per the nursing staff, patient remains to be intubated on the vent and FiO2 is however down to 35%, no significant purulent secretion through the ET or any other changes reported by the nursing staff patient did have a hemoglobin of 9.9, white count is up to 16.7 today, creatinine is 2.24 Objective - Vital Signs Vital signs: Vital Signs Temp 98.0 F 05/31/23 08:00 Pulse 85 05/31/23 11:59 Resp 20 05/31/23 11:00 BP 110/69 05/31/23 11:00 Pulse Ox 98 05/31/23 11:00 FiO2 35 05/31/23 11:52 Intake & Output 05/30/23 05/31/23 05/31/23 18:59 06:59 18:59 Intake Total 2290.928 2044.603 957.213 Output Total 610 228 145 Balance 0671.115 6663.603 812.213 Weight 76 kg 76 kg Intake: IV 1581 1833 885 0.9 NS KVO 140 130 30 ARTERIAL LINE & CVP 66 78 30 Piperacillin-Tazobactam 3 100 .375 gm In Sodium Chloride 0.9% 100 ml @ 25 mls/hr IVPB Q8HR [facility] Rx# :[id number] Sodium Chloride 0.9% 1, 1375 1625 625 000 ml @ 125 mls/hr IV . Q8H [facility] Rx#:[id number] metroNIDAZOLE-NS PMX 500 100 mg In Saline 1 100ml.bag @ 100 mls/hr IVPB Q6H [facility] Rx#:[id number] Intake, IV Titration 589.928 61.603 62.213 Amount Calcium Gluconate in NaCl 100 2 gm In Saline 1 100ml. bag @ 100 mls/hr IVPB ONCE ONE Rx#:[id number] Norepinephrine 32 mg In 26.273 19.411 29.843 Sodium Chloride 0.9% 218 ml @ 0.03 MCG/KG/MIN 0. 778 mls/hr IV .Q24H [facility] Rx#:[id number] Piperacillin-Tazobactam 3 200 .375 gm In Sodium Chloride 0.9% 100 ml @ 25 mls/hr IVPB Q8HR [facility] Rx# :[id number] Potassium Chloride 20 meq 100 In Water For Injection 1 100ml.bag @ 50 mls/hr IVPB Q2H [facility] Rx#: [id number] Vasopressin 60 unit In 28.229 Sodium Chloride 0.9% 150 ml @ 0.03 UNITS/MIN 4.59 mls/hr IV .Q24H [facility] Rx#: [id number] metroNIDAZOLE-NS PMX 500 100 mg In Saline 1 100ml.bag @ 100 mls/hr IVPB Q6H [facility] Rx#:[id number] propofoL 1,000 mg In 35.426 42.192 32.370 Empty Bag 1 bag @ 15 MCG/ KG/MIN 4.98 mls/hr IV . Q20H5M [facility] Rx#:[id number] Tube Feeding 120 150 10 Other 0 Output: Gastric Drainage 0 Drainage 0 35 Left Lower Abdomen 0 35 Urine 160 193 145 Stool 450 Other: Voiding Method Indwelling Catheter Indwelling Catheter Indwelling Catheter ABP, PAP, CO, CI - Last Documented Arterial Blood Pressure 89/54 - Exam GENERAL DESCRIPTION: Middle-aged female intubated on the vent RESPIRATORY SYSTEM: Unlabored breathing , decreased breath sounds at bases HEART: S1 S2 regular rate and rhythm , ABDOMEN: Soft , no tenderness EXTREMITIES: No edema feet - Labs CBC & Chem 7: 05/31/23 04:30 05/31/23 04:30 Labs: Abnormal Lab Results - Last 24 Hours (Table) 05/30/23 05/30/23 05/30/23 Range/Units 15:10 15:17 16:07 WBC (3.8-10.6) k/uL RBC (3.80-5.40) m/uL Hgb (11.4-16.0) gm/dL Hct (34.0-46.0) % RDW (11.5-15.5) % Plt Count (150-450) k/uL Neutrophils # (1.3-7.7) k/uL Lymphocytes # (1.0-4.8) k/uL ABG pH (7.35-7.45) ABG pO2 (83-108) mmHg ABG Total CO2 (19-24) mmol/L ABG O2 Saturation (94-97) % Sodium 136 L (137-145) mmol/L BUN 44 H (7-17) mg/dL Creatinine 2.05 H (0.52-1.04) mg/dL Glucose (74-99) mg/dL POC Glucose (mg/dL) 69 L 132 H (70-110) mg/dL Calcium 5.7 L* (8.4-10.2) mg/dL Creatine Kinase (30-135) U/L Urine Appearance (Clear) Urine Protein (Negative) Urine Ketones (Negative) Urine Blood (Negative) Ur Leukocyte Esterase (Negative) Urine WBC (0-5) /hpf Urine Bacteria (None) /hpf Urine Mucus (None) /hpf 05/30/23 05/31/23 05/31/23 Range/Units 19:51 00:06 04:30 WBC (3.8-10.6) k/uL RBC (3.80-5.40) m/uL Hgb (11.4-16.0) gm/dL Hct (34.0-46.0) % RDW (11.5-15.5) % Plt Count (150-450) k/uL Neutrophils # (1.3-7.7) k/uL Lymphocytes # (1.0-4.8) k/uL ABG pH (7.35-7.45) ABG pO2 (83-108) mmHg ABG Total CO2 (19-24) mmol/L ABG O2 Saturation (94-97) % Sodium (137-145) mmol/L BUN (7-17) mg/dL Creatinine (0.52-1.04) mg/dL Glucose (74-99) mg/dL POC Glucose (mg/dL) 113 H 127 H (70-110) mg/dL Calcium (8.4-10.2) mg/dL Creatine Kinase 96589 H* (30-135) U/L Urine Appearance (Clear) Urine Protein (Negative) Urine Ketones (Negative) Urine Blood (Negative) Ur Leukocyte Esterase (Negative) Urine WBC (0-5) /hpf Urine Bacteria (None) /hpf Urine Mucus (None) /hpf 05/31/23 05/31/23 05/31/23 Range/Units 04:30 04:30 05:56 WBC 16.7 H (3.8-10.6) k/uL RBC 3.33 L (3.80-5.40) m/uL Hgb 9.9 L (11.4-16.0) gm/dL Hct 30.1 L (34.0-46.0) % RDW 16.6 H (11.5-15.5) % Plt Count 57 L (150-450) k/uL Neutrophils # 15.7 H (1.3-7.7) k/uL Lymphocytes # 0.6 L (1.0-4.8) k/uL ABG pH 7.34 L (7.35-7.45) ABG pO2 148 H (83-108) mmHg ABG Total CO2 25 H (19-24) mmol/L ABG O2 Saturation 98.4 H (94-97) % Sodium (137-145) mmol/L BUN 46 H (7-17) mg/dL Creatinine 2.24 H (0.52-1.04) mg/dL Glucose 112 H (74-99) mg/dL POC Glucose (mg/dL) (70-110) mg/dL Calcium 5.7 L* (8.4-10.2) mg/dL Creatine Kinase (30-135) U/L Urine Appearance (Clear) Urine Protein (Negative) Urine Ketones (Negative) Urine Blood (Negative) Ur Leukocyte Esterase (Negative) Urine WBC (0-5) /hpf Urine Bacteria (None) /hpf Urine Mucus (None) /hpf 05/31/23 05/31/23 Range/Units 10:07 11:59 WBC (3.8-10.6) k/uL RBC (3.80-5.40) m/uL Hgb (11.4-16.0) gm/dL Hct (34.0-46.0) % RDW (11.5-15.5) % Plt Count (150-450) k/uL Neutrophils # (1.3-7.7) k/uL Lymphocytes # (1.0-4.8) k/uL ABG pH (7.35-7.45) ABG pO2 (83-108) mmHg ABG Total CO2 (19-24) mmol/L ABG O2 Saturation (94-97) % Sodium (137-145) mmol/L BUN (7-17) mg/dL Creatinine (0.52-1.04) mg/dL Glucose (74-99) mg/dL POC Glucose (mg/dL) 151 H (70-110) mg/dL Calcium (8.4-10.2) mg/dL Creatine Kinase (30-135) U/L Urine Appearance Turbid H (Clear) Urine Protein 1+ H (Negative) Urine Ketones Trace H (Negative) Urine Blood Large H (Negative) Ur Leukocyte Esterase Trace H (Negative) Urine WBC 9 H (0-5) /hpf Urine Bacteria Rare H (None) /hpf Urine Mucus Rare H (None) /hpf Microbiology - Last 24 Hours (Table) 05/27/23 14:52 Anaerobic Culture - Preliminary Peritoneal Fluid Anaerobic Gm Negative Bacilli Anaerobic Gm Negative Bacilli#2 Anaerobic Gm Negative Bacilli#3 05/27/23 14:52 Gram Stain - Final Peritoneal Fluid Body Fluid Culture - Final Escherichia coli Enterococcus raffinosus 05/27/23 17:03 Gram Stain - Final Sputum Sputum Culture - Final Assessment and Plan (1) Sepsis Current Visit: Yes Status: Acute Code(s): A41.9 - SEPSIS, UNSPECIFIED ORGANISM SNOMED Code(s): 40340204 (2) Peritonitis Current Visit: Yes Status: Acute Code(s): K65.9 - PERITONITIS, UNSPECIFIED SNOMED Code(s): 21940391 Plan: 1patient with a septic shock secondary to perforated colorectal anastomosis and bowel ischemia this patient evidence of marginal improvement status post extensive surgery we will need to cover for detailed gram-negative the likely pathogen E. coli bacteremia source likely abdominal which is a sensitive pathogen, however abdominal culture also growing enterococcus that is resistant to ampicillin along with anaerobic gram-negative bacilli 2- we will discontinue Zosyn and start the patient on Unasyn and record for the enterococcus we will daptomycin because of her elevated creatinine Dictation was produced using [employer] dictation software. please excuse any grammatical, word or spelling errors. Time with Patient: Greater than 30
--- NOTE | 2023-05-31 17:38 | P.PN ---
Progress Note - Text Progress Note Date: 05/31/23 - Chief Complaint Acute abdomen - History of Present Illness This is a 63-year-old patient, who had severe ileus of right and left: And underwent right and left colectomy with end colostomy by Dr. Worthington on 09/21/2022. on January 29/2023 underwent exploratory laparotomy with takedown of colostomy and takedown of splenic flexure with partial colectomy and repair of incisional hernia and lysis of adhesions by Dr. Worthington. Following that pat jarednt had a three-week stay in the hospital for protracted ileus. And finally was discharged on February 25. Patient then presented to the ER on the evening of May 26. Patient presented here from [facility]. Per EMS report patient had a bowel movement for about 3 days. And increasing abdominal discomfort. Patient has remained nonambulatory. Computed tomography scan in the ER showed large pneumoperitoneum. Large fecal bolus of the rectum. Gallstones. Ascites. Patient seen by Dr. Parikh from general surgery.. Patient was taken to the OR for exploratory laboratory yesterday and had subtotal colectomy with partial proctectomy carried out. About 200 mL of pelvic abscess fecal peritonitis was drained. End ileostomy was carried out. Incisional wound VAC prerenal was placed. Left salpingo-oophorectomy was done. Patient continues clean ICU. On the ventilator intubated. FiO2 40 and a PEEP of 5. Drips include IV vasopressor, levo fed, propofol, bicarbonate. No output from the ileostomy bag. 05/29/2023: ICU. IV propofol. FiO2 50 PEEP of 5. Intubated. Remains on IV Zosyn, IV Flagyl. Extremity bilateral skin mottling. Extremities are cold. On IV vasopressin, IV norepinephrine. Sinus rhythm. No output in the ileostomy. Wound VAC in place. Serosanguineous output out of the PABLO drain. Family at bedside. 05/30/2023: ICU. Intubated. FiO2 40 to PEEP of 5. with the patient DO NOT RESUSCITATE yesterday. Drips include propofol, norepinephrine, vasopressin. 2 feeding started at 10 mL an hour. Putting out liquid stools over the ileostomy bag. No output from the PABLO drain. Patient seen by vascular Dr. Giliberto. Currently no further intervention. 05/31/1933: ICU. Intubated. FiO2 35 to PEEP of 5. Sinus rhythm. It's include norepinephrine, propofol, vasopressin. NG tube. 2 feeding at 10 mL an hour. That has been output from the ileostomy bag. Repeat blood cultures ordered. Active Medications Albuterol/Ipratropium (Ipratropium-Albuterol 3 Ml Neb) 3 ml INHALATION RT-Q4H [facility] Last Admin: 05/31/23 15:36 Dose: 3 ml Chlorhexidine Gluconate (Chlorhexidine Gluconate 15 Ml Cup) 15 ml MUCOUS MEM BI D [facility] Last Admin: 05/31/23 08:25 Dose: 15 ml Dextrose/Water (Dextrose 50% Syringe 50 Ml) 25 ml IVP PER PROTOCOL PRN; Protocol PRN Reason: Hypoglycemia Last Admin: 05/30/23 15:48 Dose: 25 ml Dextrose/Water (Dextrose 50% Syringe 50 Ml) 50 ml IVP PER PROTOCOL PRN; Protocol PRN Reason: Hypoglycemia Hydromorphone HCl (Hydromorphone 1 Mg/Ml 1 Ml Syringe) 1 mg IVP Q3HR PRN PRN Reason: Moderate to Severe Pain (4-10) Last Admin: 05/31/23 04:37 Dose: 1 mg Metronidazole 500 mg/ IV (Solution) 100 mls @ 100 mls/hr IVPB Q6H [facility]; Protocol Last Admin: 05/31/23 17:10 Dose: 100 mls/hr Norepinephrine Bitartrate 32 (mg/ Sodium Chloride) 250 mls @ 0.778 mls/hr IV .Q24H [facility]; Protocol Last Titration: 05/31/23 14:17 Dose: 0.16 mcg/kg/min, 4.15 mls/hr Propofol 1,000 mg/ IV Solution 100 mls @ 4.98 mls/hr IV .Q20H5M [facility]; Protocol Last Admin: 05/31/23 12:23 Dose: 15 mcg/kg/min, 4.98 mls/hr Vasopressin 60 unit/ Sodium (Chloride) 153 mls @ 4.59 mls/hr IV .Q24H [facility]; Protocol Last Admin: 05/31/23 17:20 Dose: 0.03 units/min, 4.59 mls/hr Sodium Chloride (Saline 0.9%) 1,000 mls @ 125 mls/hr IV .Q8H [facility] Last Admin: 05/31/23 17:11 Dose: 125 mls/hr Ampicillin Sodium/Sulbactam (Sodium 3 gm/ Sodium Chloride) 100 mls @ 200 mls/hr IVPB Q12HR [facility]; Protocol Last Admin: 05/31/23 14:19 Dose: 200 mls/hr Daptomycin 456 mg/ Sodium (Chloride) 50 mls @ 100 mls/hr IVPB Q24HR [facility]; Protocol Miscellaneous Information (Potassium Replacement Protocol 1 Each Misc) 1 each MISCELLANE DAILY PRN; Protocol PRN Reason: Per Protocol Miscellaneous Information (Magnesium Replacement Protocol 1 Each Misc) 1 each MISCELLANE DAILY PRN; Protocol PRN Reason: Per Protocol Miscellaneous Information (Phosphorus Replacement Protoco 1 Each Misc) 1 each MISCELLANE DAILY PRN; Protocol PRN Reason: Per Protocol Naloxone HCl (Naloxone 0.4 Mg/Ml 1 Ml Vial) 0.2 mg IV Q2M PRN PRN Reason: Opioid Reversal Ondansetron HCl (Ondansetron 4 Mg/2 Ml Vial) 4 mg IVP Q8HR PRN PRN Reason: Nausea And Vomiting Pantoprazole Sodium (Pantoprazole 40 Mg/10 Ml Vial) 40 mg IV DAILY [facility] Last Admin: 05/31/23 08:25 Dose: 40 mg Past medical history to include: Hypothyroid, osteomyelitis, COPD, left colectomy with end colostomy Social history: Currently at [facility]. Smokes about half a pack a day since age 21, up to February 2023.. Doesn't really walk currently. Physical examination: VITAL SIGNS: 98.1, 92, 20, 121/77, 99% on the vent GENERAL:, In bed, sedated EYES: Pupils equal. Conjunctiva pale HEENT: External appearance of nose and ears normal, oral cavity dry mucous membranes. ET tube. NECK: JVD unable to assess; masses not palpable. HEART: First and second heart sounds are normal; no edema. LUNGS: Respiratory rate increased; decreased breath sounds. ABDOMEN: Soft,, nontender Liver spleen not palpable, no masses palpable. Midline Provena. Left-sided PABLO minimal output. Right-sided ileostomy bag with liquid stools PSYCH: Sedated MUSCULOSKELETAL:No Clubbing/cyanosis;muscles-grossly intact. Mottling of the lower extremities. Cold lower extremity. INVESTIGATIONS, reviewed in the clinical context: May 31: WBC 16.7 hemoglobin 9.9 platelets 57 sodium 139 potassium 3.9 BUN 46 creatinine 2.24 CPK 69111 Peritoneal fluid: E. coli, enterococcus raffinosus Blood culture [May 26]: E. coli May 30: White count 9.2 hemoglobin 9.7 platelets 59 potassium 3.8 BUN 43 creatinine 1.89 ionized calcium 3.5 CPK [id number] May 29: White count 7.1 hemoglobin 9.7 platelets 59 potassium 3.2 BUN 41 and creatinine 1.59 05/28/2023: White count 4.4 hemoglobin 10.6 platelets 161 2139 potassium 4.5 BUN 40 creatinine 1.67 bicarb 17 calcium 5.9 ionized calcium 3.6 magnesium 1.3 Previous labs: Creatinine 1.28 on 05/26/2023. 0.77 on 02/25/2023. EKG tracing personally reviewed by me-normal sinus rhythm. P pulmonale. Nonspecific T-wave changes. Chest x-ray film personally reviewed by me-hyperinflation CT abdomen pelvis [May 26] large pneumoperitoneum. Large fecal bolus of the rectum. Fecal debris within the redundant sigmoid colon. Because of the volvulus. Cholelithiasis. Ascites. Assessment and plan: -Acute bowel perforation leading to pneumoperitoneum and septic peritonitis. Paternal culture Cultures positive-. coli, enterococcus raffinosus: Slow to respond IV Flagyl. IV Unasyn -Septic shock from above: Severe, slow to respond IV vasopressin, IV levo fed. -Acute metabolic acidosis multifactorial including renal failure: Better -Acute kidney injury, ATN from septic shock.: Worsening Follow with nephrology -Suspect PAD in a patient who smoker Follow with vascular. No current intervention. -Hypocalcemia Replace potassium -Acute rhabdomyolysis, multifactorial -Acute thrombocytopenia secondary to sepsis -Acute hypoxic respiratory failure, requiring ventilator support: Slow to respond FiO2 50 and a PEEP of 5. -Exploratory laparotomy: Subtotal colectomy with partial proctectomy; Drainage of pelvic abscess/fecal peritonitis, 200-mL; End ileostomy; Placement of round #19 garfield rodriguez drain; Placement of incisional wound vac, 20-cm, PREVENa; Left salpingo-oophorectomy with Dr. Mariely Parikh on May 27. -Reversal of colostomy in February 2023. Right and left colectomy with end colostomy in September [address] Worthington -Acute postprocedure blood loss anemia, expected from surgery contributing to hypotension: Admission hemoglobin 14.9. -GERD PPI -Chronic medical debility from surgery. Other medical conditions. per F patient has recently been nonambulatory. -Hypothyroid Levothyroxin -COPD in a previous smoker DuoNeb every 4 -Anemia of chronic disease hemoglobin 11.3 Iron deficiency from blood loss. -DO NOT RESUSCITATE Repeat blood cultures. IV Unasyn IV Flagyl. Continue with pressor support. Critical feeding. Prognosis remains guarded. Past Medical History Past Medical History: Cancer, COPD, GERD/Reflux, Osteoarthritis (OA), Pulmonary Embolus (PE), Thyroid Disorder Additional Past Medical History / Comment(s): CANCER APPENDIX, COLOSTOMY, HEART MURMUR., STATES PE 2017., CERVICAL STENOSIS WITH HERNIATED DISC., [facility]BD [facility]OUND [facility] RESIDES AT [facility]. History of Any Multi-Drug Resistant Organisms: MRSA Year Discovered:: 11/24/22 MDRO Source:: ABD WOUND Past Surgical History: Section Additional Past Surgical History / Comment(s): RIGHT AND LEFT COLECTOMY WITH COLOSTOMY., COLONOSCOPY; ostomy reversal/hernia repair/colectomy (01/29/23). Past Anesthesia/Blood Transfusion Reactions: No Reported Reaction Past Psychological History: No Psychological Hx Reported Smoking Status: Current every day smoker Past Alcohol Use History: None Reported Additional Past Alcohol Use History / Comment(s): SMOKES 1/2 PPD, STARTED SMOKING AGE 21. Past Drug Use History: None Reported - Past Family History Mother History Unknown: Yes Family Medical History: No Reported History Medications and Allergies Home Medications Medication Instructions Recorded Confirmed Type Levothyroxine Sodium [Euthyrox] 75 mcg PO DAILY #30 tab 09/17/22 05/26/23 Rx Ipratropium-Albuterol Nebulize 3 ml INHALATION RT-TID PRN 10/04/22 05/26/23 History [Duoneb 0.5 mg-3 mg/3 ml Soln] Omeprazole [PriLOSEC] 20 mg PO DAILY 10/04/22 05/26/23 History Acetaminophen Tab [Tylenol] 325 mg PO Q6HR PRN 01/26/23 05/26/23 History Calcium Carbonate/Vitamin D3 1 tab PO DAILY 01/26/23 05/26/23 History [Calcium 600 mg-Vit D3 5 mcg (200 unit)] Cholecalciferol [Vitamin D3 (25 25 mcg PO DAILY 01/26/23 05/26/23 History Mcg = 1000 Iu)] Pyridoxine HCl (Vitamin B6) 100 mg PO DAILY 01/26/23 05/26/23 History [Vitamin B-6] HYDROcodone/APAP 5-325MG [Ferguson 1 tab PO Q6HR PRN 3 Days #12 tab 02/25/23 05/26/23 Rx 5-325] Docusate [Colace] 100 mg PO BID 05/26/23 05/26/23 History Folic Acid 0.4 mg PO HS 05/26/23 05/26/23 History Healthshake 1 dose PO TID 05/26/23 05/26/23 History Magnesium Citrate [Citrate of 1.745 gm PO DAILY PRN 05/26/23 05/26/23 History Magnesia] Multivitamins, Thera [Multivitamin 1 tab PO HS 05/26/23 05/26/23 History (formulary)] Psyllium Husk 100% [Metamucil 6 gm PO DAILY 05/26/23 05/26/23 History Packet] Allergies Allergy/AdvReac Type Severity Reaction Status Date / Time No Known Allergies Allergy Verified 05/26/23 17:49
[2023-05-31 18:10] LABS: Glucose,Whole Blood 119 mg/dL (70-110)
[2023-05-31 23:41] LABS: Glucose,Whole Blood 140 mg/dL (70-110)
[2023-06-01] MEDS: IPRATROPIUM-ALBUTEROL 3 ML NEB INHALATION SCH ×6 (03:14→23:56)
[2023-06-01] MEDS: metroNIDAZOLE-NS PMX 500 MG in SALINE 1 100ML.BAG IVPB SCH ×4 (04:45→22:34)
[2023-06-01 04:47] LABS: Anion Gap 10 mmol/L; Blood Urea Nitrogen 46 mg/dL (7-17); Carbon Dioxide 20 mmol/L (22-30); Chloride 110 mmol/L (98-107); Glucose 124 mg/dL (74-99); Potassium 3.6 mmol/L (3.5-5.1); Sodium 140 mmol/L (137-145)
[2023-06-01 04:50] LABS: Anisocytosis Slight; Basophils % (A) 0 %; Eosinophils % (A) 0 %; HCT 29.7 % (34.0-46.0); HGB 9.5 gm/dL (11.4-16.0); Hypochromasia Slight; Lymphocytes # (A) 0.5 k/uL (1.0-4.8); Lymphocytes % (A) 3 %; MCH 29.4 pg (25.0-35.0); MCV 91.7 fL (80.0-100.0); Mean Platelet Volume 11.4; Monocytes # (A) 0.2 k/uL (0-1.0); Monocytes % (A) 1 %; Neutrophils # (A) 18.3 k/uL (1.3-7.7); Neutrophils % (A) 95 %; Platelet Count 52 k/uL (150-450); RBC 3.24 m/uL (3.80-5.40); RDW 16.8 % (11.5-15.5); WBC 19.3 k/uL (3.8-10.6)
[2023-06-01 04:55] LABS: African American GFR (CKD) 25 (>60 ml/min/1.73 sqM); Non-African American GFR(CKD) 21 (>60 ml/min/1.73 sqM)
[2023-06-01] MEDS: SODIUM CHLORIDE 0.9% 1,000 ML IV SCH ×2 (05:08→16:20)
[2023-06-01 05:18] LABS: Calcium 5.3 mg/dL (8.4-10.2); Creatine Kinase 15962 U/L (30-135)
[2023-06-01] MEDS ORDERED: CALCIUM GLUCONATE IN NACL 2 GM in SALINE 1 100ML.BAG IVPB ONE ×2 (05:25→11:00)
[2023-06-01 05:33] LABS: Glucose,Whole Blood 133 mg/dL (70-110)
[2023-06-01] MEDS: POTASSIUM CHLORIDE 10 MEQ in WATER FOR INJECTION 1 100ML.BAG IVPB SCH ×2 (05:50→08:00)
[2023-06-01 06:00] LABS: ABG Base Excess -6.4 mmol/L; ABG HCO3 20 mmol/L (21-25); ABG Oxygen Saturation 98.4 % (94-97); ABG PCO2 39 mmHg (35-45); ABG PH 7.31 (7.35-7.45); ABG PO2 136 mmHg (83-108); ABG TCO2 21 mmol/L (19-24); Allen Test Performed? Yes
--- NOTE | 2023-06-01 08:01 | P.PN ---
Subjective Progress Note Date: 06/01/23 Principal diagnosis: Septic shock secondary to colon perforation Slight decrease in pressor support per nursing. No other events overnight. Per nursing there is improvement of mottling in lower extremities. Objective - Vital Signs Vital signs: Vital Signs Temp 98.1 F 06/01/23 04:00 Pulse 84 06/01/23 07:51 Resp 20 06/01/23 06:30 BP 133/86 06/01/23 06:30 Pulse Ox 100 06/01/23 06:30 FiO2 35 06/01/23 07:38 Intake & Output 05/31/23 06/01/23 06/01/23 18:59 06:59 18:59 Intake Total 2426.952 2064.606 Output Total 310 357 Balance 2116.952 1707.606 Weight 76 kg 82.8 kg Intake: IV 1597 1731 0.9 NS KVO 100 90 ARTERIAL LINE & CVP 72 66 Ampicillin-Sulbactam 3 gm 100 In Sodium Chloride 0.9% 100 ml @ 200 mls/hr IVPB Q12HR [facility] Rx#:[id number] Piperacillin-Tazobactam 3 100 .375 gm In Sodium Chloride 0.9% 100 ml @ 25 mls/hr IVPB Q8HR [facility] Rx# :[id number] Sodium Chloride 0.9% 1, 1125 1375 000 ml @ 125 mls/hr IV . Q8H [facility] Rx#:[id number] metroNIDAZOLE-NS PMX 500 200 100 mg In Saline 1 100ml.bag @ 100 mls/hr IVPB Q6H [facility] Rx#:[id number] Intake, IV Titration 799.952 133.606 Amount Ampicillin-Sulbactam 3 gm 100 In Sodium Chloride 0.9% 100 ml @ 200 mls/hr IVPB Q12HR [facility] Rx#:[id number] Norepinephrine 32 mg In 48.242 67.040 Sodium Chloride 0.9% 218 ml @ 0.03 MCG/KG/MIN 0. 778 mls/hr IV .Q24H [facility] Rx#:[id number] Vancomycin 1,250 mg In 500 Sodium Chloride 0.9% 250 ml @ 125 mls/hr IVPB ONCE ONE Rx#:[id number] Vasopressin 60 unit In 119.34 Sodium Chloride 0.9% 150 ml @ 0.03 UNITS/MIN 4.59 mls/hr IV .Q24H [facility] Rx#: [id number] propofoL 1,000 mg In 32.370 66.566 Empty Bag 1 bag @ 15 MCG/ KG/MIN 4.98 mls/hr IV . Q20H5M [facility] Rx#:[id number] Tube Feeding 30 110 Other 90 Output: Drainage 20 80 Left Lower Abdomen 20 80 Urine 290 277 Other: Voiding Method Indwelling Catheter Indwelling Catheter ABP, PAP, CO, CI - Last Documented Arterial Blood Pressure 123/63 - Exam Vented, sedated Mottling noted bilateral feet without extension past the ankle. Feet cool to touch. Lower leg, thigh warmer. No doppler signals noted. Non palpable dp or pt pulses - Labs CBC & Chem 7: 06/01/23 04:23 06/01/23 04:23 Labs: Abnormal Lab Results - Last 24 Hours (Table) 05/31/23 05/31/23 05/31/23 Range/Units 10:07 11:59 18:09 WBC (3.8-10.6) k/uL RBC (3.80-5.40) m/uL Hgb (11.4-16.0) gm/dL Hct (34.0-46.0) % RDW (11.5-15.5) % Plt Count (150-450) k/uL Neutrophils # (1.3-7.7) k/uL Lymphocytes # (1.0-4.8) k/uL ABG pH (7.35-7.45) ABG pO2 (83-108) mmHg ABG HCO3 (21-25) mmol/L ABG O2 Saturation (94-97) % Chloride (98-107) mmol/L Carbon Dioxide (22-30) mmol/L BUN (7-17) mg/dL Creatinine (0.52-1.04) mg/dL Glucose (74-99) mg/dL POC Glucose (mg/dL) 151 H 119 H (70-110) mg/dL Calcium (8.4-10.2) mg/dL Creatine Kinase (30-135) U/L Urine Appearance Turbid H (Clear) Urine Protein 1+ H (Negative) Urine Ketones Trace H (Negative) Urine Blood Large H (Negative) Ur Leukocyte Esterase Trace H (Negative) Urine WBC 9 H (0-5) /hpf Urine Bacteria Rare H (None) /hpf Urine Mucus Rare H (None) /hpf 05/31/23 06/01/23 06/01/23 Range/Units 23:40 04:23 04:23 WBC 19.3 H (3.8-10.6) k/uL RBC 3.24 L (3.80-5.40) m/uL Hgb 9.5 L (11.4-16.0) gm/dL Hct 29.7 L (34.0-46.0) % RDW 16.8 H (11.5-15.5) % Plt Count 52 L (150-450) k/uL Neutrophils # 18.3 H (1.3-7.7) k/uL Lymphocytes # 0.5 L (1.0-4.8) k/uL ABG pH (7.35-7.45) ABG pO2 (83-108) mmHg ABG HCO3 (21-25) mmol/L ABG O2 Saturation (94-97) % Chloride 110 H (98-107) mmol/L Carbon Dioxide 20 L (22-30) mmol/L BUN 46 H (7-17) mg/dL Creatinine 2.34 H (0.52-1.04) mg/dL Glucose 124 H (74-99) mg/dL POC Glucose (mg/dL) 140 H (70-110) mg/dL Calcium 5.3 L* (8.4-10.2) mg/dL Creatine Kinase 91206 H* (30-135) U/L Urine Appearance (Clear) Urine Protein (Negative) Urine Ketones (Negative) Urine Blood (Negative) Ur Leukocyte Esterase (Negative) Urine WBC (0-5) /hpf Urine Bacteria (None) /hpf Urine Mucus (None) /hpf 06/01/23 06/01/23 Range/Units 05:32 05:57 WBC (3.8-10.6) k/uL RBC (3.80-5.40) m/uL Hgb (11.4-16.0) gm/dL Hct (34.0-46.0) % RDW (11.5-15.5) % Plt Count (150-450) k/uL Neutrophils # (1.3-7.7) k/uL Lymphocytes # (1.0-4.8) k/uL ABG pH 7.31 L (7.35-7.45) ABG pO2 136 H (83-108) mmHg ABG HCO3 20 L (21-25) mmol/L ABG O2 Saturation 98.4 H (94-97) % Chloride (98-107) mmol/L Carbon Dioxide (22-30) mmol/L BUN (7-17) mg/dL Creatinine (0.52-1.04) mg/dL Glucose (74-99) mg/dL POC Glucose (mg/dL) 133 H (70-110) mg/dL Calcium (8.4-10.2) mg/dL Creatine Kinase (30-135) U/L Urine Appearance (Clear) Urine Protein (Negative) Urine Ketones (Negative) Urine Blood (Negative) Ur Leukocyte Esterase (Negative) Urine WBC (0-5) /hpf Urine Bacteria (None) /hpf Urine Mucus (None) /hpf Microbiology - Last 24 Hours (Table) 05/27/23 14:52 Anaerobic Culture - Preliminary Peritoneal Fluid Anaerobic Gm Negative Bacilli Anaerobic Gm Negative Bacilli#2 Anaerobic Gm Negative Bacilli#3 Assessment and Plan Assessment: Septic shock secondary to bowel perforation Acute arterial insufficiency secondary to pressor dependent shock Metabolic acidosis with acute renal failure Plan: Continue supportive care and wean pressor support. No intervention for lower extremities until patient recovers from septic shock. If needed will be available for hemodialysis access.
--- NOTE | 2023-06-01 08:08 | P.ANPRN ---
Procedure Note - Anesthesia - Invasive Line Left Central Line Time Out Performed: Yes Date of Procedure: 05/27/23 Time of Procedure: 09:32 Location of Patient: PreOp Preparation: Sterile Prep, Sterile Dressing Central Line Location: Internal Jugular Ultrasound Used: Yes Purpose - Visualization and Identification of Vasculature: Yes Image Stored and Saved: Yes Narrative: Central line placement per sterile protocol utilized.
--- NOTE | 2023-06-01 08:32 | XR ---
EXAMINATION TYPE: XR chest 1V portable DATE OF EXAM: 06/01/2023 COMPARISON: 05/23/2023 HISTORY: Shortness of breath TECHNIQUE: Single frontal view of the chest is obtained. FINDINGS: Bilateral infiltrate and pleural effusion. Underlying COPD. ET, NG tube and central line s table. Atherosclerotic change aorta. Underlying COPD. Arthropathy of the shoulders and degenerative c hanges of the spine. Surgical elida noted. IMPRESSION: Bilateral lower lobe infiltrate and small effusion stable.
[2023-06-01] MEDS: CHLORHEXIDINE GLUCONATE 15 ML CUP MUCOUS MEM SCH ×2 (08:48→21:59)
[2023-06-01] MEDS: PANTOPRAZOLE 40 MG/10 ML VIAL IV SCH (08:48)
[2023-06-01] MEDS ORDERED: VANCOMYCIN 1,250 MG in SODIUM CHLORIDE 0.9% 250 ML IVPB ONE (09:00)
[2023-06-01] MEDS ORDERED: DAPTOmycin 350 MG in SODIUM CHLORIDE 0.9% 50 ML IVPB SCH (09:00)
[2023-06-01] MEDS: AMPICILLIN-SULBACTAM 3 GM in SODIUM CHLORIDE 0.9% 100 ML IVPB SCH ×2 (09:34→21:59)
[2023-06-01] MEDS ORDERED: FUROSEMIDE 10 MG/ML 4 ML VIAL IV STA (10:30)
--- NOTE | 2023-06-01 10:47 | P.PN ---
Subjective patient is seen for follow-up for acute kidney injury. Patient remains on the vent Urine output at about 20-35 mL an hour. Levo fed dose is slightly lower from yesterday. FiO2 at 35%. Sedation is been decreased Started IV fluids [place] [address] Objective - Vital Signs Vital signs: Vital Signs Temp 98.1 F 06/01/23 04:00 Pulse 84 06/01/23 07:51 Resp 20 06/01/23 06:30 BP 133/86 06/01/23 06:30 Pulse Ox 100 06/01/23 06:30 FiO2 35 06/01/23 08:00 Intake & Output 05/31/23 06/01/23 06/01/23 18:59 06:59 18:59 Intake Total 2426.952 2064.606 10.256 Output Total 310 357 Balance 2116.952 1707.606 10.256 Weight 76 kg 82.8 kg Intake: IV 1597 1731 0.9 NS KVO 100 90 ARTERIAL LINE & CVP 72 66 Ampicillin-Sulbactam 3 gm 100 In Sodium Chloride 0.9% 100 ml @ 200 mls/hr IVPB Q12HR [facility] Rx#:[id number] Piperacillin-Tazobactam 3 100 .375 gm In Sodium Chloride 0.9% 100 ml @ 25 mls/hr IVPB Q8HR [facility] Rx# :[id number] Sodium Chloride 0.9% 1, 1125 1375 000 ml @ 125 mls/hr IV . Q8H [facility] Rx#:[id number] metroNIDAZOLE-NS PMX 500 200 100 mg In Saline 1 100ml.bag @ 100 mls/hr IVPB Q6H [facility] Rx#:[id number] Intake, IV Titration 799.952 133.606 10.256 Amount Ampicillin-Sulbactam 3 gm 100 In Sodium Chloride 0.9% 100 ml @ 200 mls/hr IVPB Q12HR [facility] Rx#:[id number] Norepinephrine 32 mg In 48.242 67.040 10.256 Sodium Chloride 0.9% 218 ml @ 0.03 MCG/KG/MIN 0. 778 mls/hr IV .Q24H [facility] Rx#:[id number] Vancomycin 1,250 mg In 500 Sodium Chloride 0.9% 250 ml @ 125 mls/hr IVPB ONCE ONE Rx#:[id number] Vasopressin 60 unit In 119.34 Sodium Chloride 0.9% 150 ml @ 0.03 UNITS/MIN 4.59 mls/hr IV .Q24H [facility] Rx#: [id number] propofoL 1,000 mg In 32.370 66.566 Empty Bag 1 bag @ 15 MCG/ KG/MIN 4.98 mls/hr IV . Q20H5M [facility] Rx#:[id number] Tube Feeding 30 110 Other 90 Output: Drainage 20 80 Left Lower Abdomen 20 80 Urine 290 277 Other: Voiding Method Indwelling Catheter Indwelling Catheter ABP, PAP, CO, CI - Last Documented Arterial Blood Pressure 123/63 - Exam Patient is sedated and on the vent. Examination of the heart S1 and S2 Examination of the lungs bilateral breath sounds are heard Abdomen is soft nontender Examination of lower extremities shows significant mottling bilaterally. Edema noted in upper extremities. - Labs CBC & Chem 7: 06/01/23 04:23 06/01/23 04:23 Labs: Abnormal Lab Results - Last 24 Hours (Table) 05/31/23 05/31/23 05/31/23 Range/Units 11:59 18:09 23:40 WBC (3.8-10.6) k/uL RBC (3.80-5.40) m/uL Hgb (11.4-16.0) gm/dL Hct (34.0-46.0) % RDW (11.5-15.5) % Plt Count (150-450) k/uL Neutrophils # (1.3-7.7) k/uL Lymphocytes # (1.0-4.8) k/uL ABG pH (7.35-7.45) ABG pO2 (83-108) mmHg ABG HCO3 (21-25) mmol/L ABG O2 Saturation (94-97) % Chloride (98-107) mmol/L Carbon Dioxide (22-30) mmol/L BUN (7-17) mg/dL Creatinine (0.52-1.04) mg/dL Glucose (74-99) mg/dL POC Glucose (mg/dL) 151 H 119 H 140 H (70-110) mg/dL Calcium (8.4-10.2) mg/dL Creatine Kinase (30-135) U/L 06/01/23 06/01/23 06/01/23 Range/Units 04:23 04:23 05:32 WBC 19.3 H (3.8-10.6) k/uL RBC 3.24 L (3.80-5.40) m/uL Hgb 9.5 L (11.4-16.0) gm/dL Hct 29.7 L (34.0-46.0) % RDW 16.8 H (11.5-15.5) % Plt Count 52 L (150-450) k/uL Neutrophils # 18.3 H (1.3-7.7) k/uL Lymphocytes # 0.5 L (1.0-4.8) k/uL ABG pH (7.35-7.45) ABG pO2 (83-108) mmHg ABG HCO3 (21-25) mmol/L ABG O2 Saturation (94-97) % Chloride 110 H (98-107) mmol/L Carbon Dioxide 20 L (22-30) mmol/L BUN 46 H (7-17) mg/dL Creatinine 2.34 H (0.52-1.04) mg/dL Glucose 124 H (74-99) mg/dL POC Glucose (mg/dL) 133 H (70-110) mg/dL Calcium 5.3 L* (8.4-10.2) mg/dL Creatine Kinase 26092 H* (30-135) U/L 06/01/23 Range/Units 05:57 WBC (3.8-10.6) k/uL RBC (3.80-5.40) m/uL Hgb (11.4-16.0) gm/dL Hct (34.0-46.0) % RDW (11.5-15.5) % Plt Count (150-450) k/uL Neutrophils # (1.3-7.7) k/uL Lymphocytes # (1.0-4.8) k/uL ABG pH 7.31 L (7.35-7.45) ABG pO2 136 H (83-108) mmHg ABG HCO3 20 L (21-25) mmol/L ABG O2 Saturation 98.4 H (94-97) % Chloride (98-107) mmol/L Carbon Dioxide (22-30) mmol/L BUN (7-17) mg/dL Creatinine (0.52-1.04) mg/dL Glucose (74-99) mg/dL POC Glucose (mg/dL) (70-110) mg/dL Calcium (8.4-10.2) mg/dL Creatine Kinase (30-135) U/L Microbiology - Last 24 Hours (Table) 05/27/23 14:52 Anaerobic Culture - Preliminary Peritoneal Fluid Anaerobic Gm Negative Bacilli Anaerobic Gm Negative Bacilli#2 Anaerobic Gm Negative Bacilli#3 Assessment and Plan Assessment: 1. Nonoliguric ATN, ischemic and toxic.underlying rhabdo my lysis. UA shows trace protein. Baseline creatinine around 0.8 mg/dL. 2. Septic shock secondary to perforated bowel 3. Anion gap metabolic acidosis secondary to acute kidney injury 4. Hypomagnesemia status post replacement 5. Acute hypoxic respiratory failure currently on the vent 6. Rhabdo myolysis, patient is not on statins. No large bruises noted. Mottling noted in the lower extremities. Plan: Add IV Lasix continue with pressors Continue with antibiotics. No indication for renal replacement therapy today. We will continue to monitor
[2023-06-01 11:07] LABS: Magnesium 1.9 mg/dL (1.6-2.3); Phosphorus 4.9 mg/dL (2.5-4.5)
--- NOTE | 2023-06-01 12:08 | P.PN ---
Subjective Progress Note Date: 06/01/23 CHIEF COMPLAINT: Perforated colorectal anastomosis HISTORY OF PRESENT ILLNESS: Patient is postop day #5 status post exploratory laparotomy, subtotal colectomy with partial proctectomy, drainage of pelvic a bscess, and ileostomy, open fecal disimpaction and left salpingo-oophorectomy. Patient remains in the ICU and on mechanical ventilation. She is undergoing a sedation holiday. They have decreased the Levophed. He says receiving a dose of IV Lasix. She remains on tube feeds. Afebrile. WBC 16.7 up to 19.3 Hgb 9.5 platelets 52 creatinine 2.34 PHYSICAL EXAM: VITAL SIGNS: Reviewed GENERAL: Well-developed in no acute distress. HEENT: No sclera icterus. Moist buccal mucosa. Head is atraumatic, normocephalic. No nasal drainage. NECK: Supple without lymphadenopathy. CHEST: Non-labored respirations and equal bilateral excursions. CARDIOVASCULAR: Palpable 2+ radial pulses. ABDOMEN: Soft. Distended. Ostomy bag small amount of yellow liquid and small amount of stool. Ostomy is pink. Patient has bruising on abdominal wall between the ostomy and Prevana wound vac. Wound vac is intact. NG tube in place MUSCULOSKELETAL: No clubbing or cyanosis. NEUROLOGIC: No focal or lateralizing signs. Cranial nerves II through XII grossly intact. SKIN: Mottling lower extremities ASSESSMENT: 1. Perforated colorectal anastomosis due to colorectal stenosis 2. Bowel ischemia 3. Fecal impaction 4. Chronic constipation 5. History of colostomy reversal 6. Gastroesophageal reflux disease 7. Hypothyroidism 8. Chronic obstructive pulmonary disease 9. History of pulmonary embolism 10. Tobacco abuse disorder 11. 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 Fecal peritonitis 15. Pelvic abscess 16. Sepsis with septic shock 17. Adhesive band 18. Leukocytosis PLAN: -Continue ICU management -Continue supportive care -Continue antibiotics -Continue IV fluids -DVT prophylaxis subcu heparin Physician [employer] note has been reviewed by physician. Signing provider agrees with the documented findings, assessment, and plan of care. Objective - Vital Signs Vital signs: Vital Signs Temp 98.2 F 06/01/23 07:00 Pulse 90 06/01/23 11:36 Resp 19 06/01/23 11:30 BP 109/64 06/01/23 11:30 Pulse Ox 100 06/01/23 11:30 FiO2 35 06/01/23 11:28 Intake & Output 05/31/23 06/01/23 06/01/23 18:59 06:59 18:59 Intake Total 2426.952 2064.606 1021.192 Output Total 310 357 210 Balance 2116.952 1707.606 811.192 Weight 76 kg 82.8 kg Intake: IV 1597 1731 914 0.9 NS KVO 100 90 40 ARTERIAL LINE & CVP 72 66 24 Ampicillin-Sulbactam 3 gm 100 In Sodium Chloride 0.9% 100 ml @ 200 mls/hr IVPB Q12HR [facility] Rx#:[id number] Ampicillin-Sulbactam 3 gm 100 In Sodium Chloride 0.9% 100 ml @ 200 mls/hr IVPB Q12HR@1000,2200 [facility] Rx#: [id number] Calcium Gluconate in NaCl 100 2 gm In Saline 1 100ml. bag @ 100 mls/hr IVPB ONCE ONE Rx#:[id number] DAPTOmycin 350 mg In 50 Sodium Chloride 0.9% 50 ml @ 100 mls/hr IVPB Q24HR [facility] Rx#:[id number] Piperacillin-Tazobactam 3 100 .375 gm In Sodium Chloride 0.9% 100 ml @ 25 mls/hr IVPB Q8HR [facility] Rx# :[id number] Sodium Chloride 0.9% 1, 1125 1375 500 000 ml @ 125 mls/hr IV . Q8H [facility] Rx#:[id number] metroNIDAZOLE-NS PMX 500 200 100 100 mg In Saline 1 100ml.bag @ 100 mls/hr IVPB Q6H [facility] Rx#:[id number] Intake, IV Titration 799.952 133.606 47.192 Amount Ampicillin-Sulbactam 3 gm 100 In Sodium Chloride 0.9% 100 ml @ 200 mls/hr IVPB Q12HR [facility] Rx#:[id number] Norepinephrine 32 mg In 48.242 67.040 13.758 Sodium Chloride 0.9% 218 ml @ 0.03 MCG/KG/MIN 0. 778 mls/hr IV .Q24H [facility] Rx#:[id number] Vancomycin 1,250 mg In 500 Sodium Chloride 0.9% 250 ml @ 125 mls/hr IVPB ONCE ONE Rx#:[id number] Vasopressin 60 unit In 119.34 Sodium Chloride 0.9% 150 ml @ 0.03 UNITS/MIN 4.59 mls/hr IV .Q24H [facility] Rx#: [id number] propofoL 1,000 mg In 32.370 66.566 33.434 Empty Bag 1 bag @ 15 MCG/ KG/MIN 4.98 mls/hr IV . Q20H5M [facility] Rx#:[id number] Tube Feeding 30 110 30 Other 90 30 Output: Drainage 20 80 40 Left Lower Abdomen 20 80 40 Urine 290 277 170 Other: Voiding Method Indwelling Catheter Indwelling Catheter Indwelling Catheter ABP, PAP, CO, CI - Last Documented Arterial Blood Pressure 97/55 - Labs CBC & Chem 7: 06/01/23 04:23 06/01/23 04:23 Labs: Abnormal Lab Results - Last 24 Hours (Table) 05/31/23 05/31/23 05/31/23 Range/Units 11:59 18:09 23:40 WBC (3.8-10.6) k/uL RBC (3.80-5.40) m/uL Hgb (11.4-16.0) gm/dL Hct (34.0-46.0) % RDW (11.5-15.5) % Plt Count (150-450) k/uL Neutrophils # (1.3-7.7) k/uL Lymphocytes # (1.0-4.8) k/uL ABG pH (7.35-7.45) ABG pO2 (83-108) mmHg ABG HCO3 (21-25) mmol/L ABG O2 Saturation (94-97) % Chloride (98-107) mmol/L Carbon Dioxide (22-30) mmol/L BUN (7-17) mg/dL Creatinine (0.52-1.04) mg/dL Glucose (74-99) mg/dL POC Glucose (mg/dL) 151 H 119 H 140 H (70-110) mg/dL Calcium (8.4-10.2) mg/dL Phosphorus (2.5-4.5) mg/dL Creatine Kinase (30-135) U/L 06/01/23 06/01/23 06/01/23 Range/Units 04:23 04:23 05:32 WBC 19.3 H (3.8-10.6) k/uL RBC 3.24 L (3.80-5.40) m/uL Hgb 9.5 L (11.4-16.0) gm/dL Hct 29.7 L (34.0-46.0) % RDW 16.8 H (11.5-15.5) % Plt Count 52 L (150-450) k/uL Neutrophils # 18.3 H (1.3-7.7) k/uL Lymphocytes # 0.5 L (1.0-4.8) k/uL ABG pH (7.35-7.45) ABG pO2 (83-108) mmHg ABG HCO3 (21-25) mmol/L ABG O2 Saturation (94-97) % Chloride 110 H (98-107) mmol/L Carbon Dioxide 20 L (22-30) mmol/L BUN 46 H (7-17) mg/dL Creatinine 2.34 H (0.52-1.04) mg/dL Glucose 124 H (74-99) mg/dL POC Glucose (mg/dL) 133 H (70-110) mg/dL Calcium 5.3 L* (8.4-10.2) mg/dL Phosphorus (2.5-4.5) mg/dL Creatine Kinase 95991 H* (30-135) U/L 06/01/23 06/01/23 Range/Units 05:57 10:36 WBC (3.8-10.6) k/uL RBC (3.80-5.40) m/uL Hgb (11.4-16.0) gm/dL Hct (34.0-46.0) % RDW (11.5-15.5) % Plt Count (150-450) k/uL Neutrophils # (1.3-7.7) k/uL Lymphocytes # (1.0-4.8) k/uL ABG pH 7.31 L (7.35-7.45) ABG pO2 136 H (83-108) mmHg ABG HCO3 20 L (21-25) mmol/L ABG O2 Saturation 98.4 H (94-97) % Chloride (98-107) mmol/L Carbon Dioxide (22-30) mmol/L BUN (7-17) mg/dL Creatinine (0.52-1.04) mg/dL Glucose (74-99) mg/dL POC Glucose (mg/dL) (70-110) mg/dL Calcium (8.4-10.2) mg/dL Phosphorus 4.9 H (2.5-4.5) mg/dL Creatine Kinase (30-135) U/L Microbiology - Last 24 Hours (Table) 05/27/23 14:52 Anaerobic Culture - Preliminary Peritoneal Fluid Anaerobic Gm Negative Bacilli Anaerobic Gm Negative Bacilli#2 Anaerobic Gm Negative Bacilli#3
--- NOTE | 2023-06-01 12:10 | P.PN ---
Subjective Progress Note Date: 06/01/23 Principal diagnosis: Septic shock secondary to acute pneumoperitoneum and abdominal sepsis This is a 63-year-old female patient is currently being seen in the intensive care unit following abdominal surgery. The patient presented to the hospital because of abdominal pain and surgical consultation was obtained as the patient was found to have pneumoperitoneum. The patient had a CAT scan of the abdomen and pelvis that was done 05/26/2023 and the patient was found to have large pneumoperitoneum, large fecal bolus in the rectum. Fecal material was also seen in the sigmoid colon. There was evidence of cholelithiasis and ascites. Based on those findings, the patient was taken to the operating room today and the patient was given an LAD, subtotal colectomy, partial proctectomy and and ileostomy and open fecal decompression drainage of fecal peritonitis and left also also oophprectomy and salpingectomy. Postop, the patient was brought into the intensive care unit. She has already received a total of 5 L of IV fluids. Most recent BP is 81/50. The patient is also on pressors and norepinephrine is running at 0.25 mcg/kg/m. The patient has improved in her urine output which is producing approximately 40 mL an hour. She is fully sedated on propofol which is running at 50 mcg/kg/m. She is, comfortable and symptoms of the mechanical ventilator. I reviewed the initial blood gas that showed a pH of 7.12 with a pCO2 of 48 and a pO2 of more than 400. Subsequently, the patient was placed on assist-control mode at the rate of 26, tidal volume of 400 and FiO2 has been weaned down to 40% and she is currently on a PEEP of 5. The chest x-ray that was done following her abdominal surgery showed adequate positioning of 82. There is no evidence of any acute abnormalities. She has a left IJ triple-lumen catheter in place. The patient had evidence of renal failure, likely acute due to BUN of 47 and a creatinine of 1.78. She also has a mild anion gap metabolic acidosis. The lactic acid level was 2.7. Calcium level was low at 6.3. Serum albumin was 2.6 with a total protein of 4.8. The white cell cause of 3.2 with a hemoglobin of 11.4. She has a NG tube in place. Output from the NG is minimal are brown. Her white suppositive 3.2 with a hemoglobin of 11.4. She is currently covered with IV Zosyn and Flagyl. She was ordered started on a bicarb infusion. Note that the patient has had multiple abdominal surgeries in the past. She has undergone a previous right and left colectomy with end colostomy in September 2022 and subsequent reversal of the colostomy. She has COPD, hypothyroidism and she is a chronic smoker. The patient has had previous episodes of small bowel obstruction and large bowel obstruction. She suffers from chronic constipation. She is status post colectomy and colostomy for chronic thickened impaction approximately 9 months ago. She underwent subsequent reversal approximately 4 months ago but colostomy. On 05/30/2023, the patient is being seen for a follow-up. She remains critically ill following abdominal surgery and the patient continues to be septic although her condition is somewhat improved compared to yesterday. The skin mottling over the abdomen and lower extremity is improved and the patient continues to have absent pulses on the popliteal in her lower extremities bilaterally. She is more warm lower extremities and the cold and clamminess has essentially recovered. Meanwhile, she was seen by vascular surgery and no intervention has been recommended. She continues to be septic features re quiring pressors although the pressor requirements have improved compared to yesterday. She is on norepinephrine running at 0.1 microvascular kilogram per minute and she is also on vasopressin physiologic dose. She remains on a mechanical ventilator. Propofol is running at a dose of 20 mcg/kg/m. She is on assist-control mode of mechanical ventilation, rate of 20, tidal volume of 400, FiO2 of 40% with a PEEP of 5. Blood gas from today shows a pH of 7.44 with a pCO2 of 41 and pO2 of 150. Chest x-ray shows stable findings. Orotracheal tube is in a good location. NG tube is in a good location. She did have some left basilar atelectasis. Meanwhile, the NG tube is in place, output is in order of minimal.The ostomy is functional and there is some liquidy material collecting an ileostomy bag. PABLO drain output is minimal and it is serosanguineous. Abdominal wound looks dry clean and intact. The patient is arousable. She grimaces to painful stimulation. She remains on the sedation. The creatinine is up to 1.89 as the patient suffered an acute kidney injury. BUN is 43, sodium is 138 and the potassium levels at 3.8. The patient has a white cell count of 9.2 with a hemoglobin of 9.7. She remains nothing by mouth for the time being. Platelet count has been dropping and is currently down to 59. Heparin was discontinued yesterday. She remains on a combination of Zosyn and Flagyl. Cultures expected leak going gram-negative bacillus from the abdomen in the blood culture was also positive for E. coli and this E. coli is quinolone resistant. The patient is postop day #4 for the time being. Reevaluated today on 05/31/2023, patient remains in the ICU, intubated and mecha nically ventilated. She is on assist control rate of 2009 volume 400 FiO2 40% and PEEP of 5, ABG showed a pO2 of 148 pCO2 43 pH of 7.34 hence FiO2 was cut down to 35%. Patient is obviously quite ill, she remains very mottled with poor pulses in lower extremities remains on multiple pressors relatively high-dose including vasopressin at 0.03, norepinephrine at 0.14 mcg/kg/m upper followed at 15 mcg/kg/m. Her previous blood cultures have showed E. coli her urine output is 10-15 mL per hour. However went up as the norepinephrine was increased. Her mean arterial pressure is ranging between 60 up to 68. Remains on Flagyl and Zosyn continues to have colostomy in place, 55 mL output from the colostomy overnight. CODE STATUS has been changed to DO NOT RESUSCITATE patient remains on vital HPI 10 mL per hour. Chest x-ray continues to show left lower lobe consolidation. Overall the patient is doing poorly and she is quite ill. WBC count is 16.7 hemoglobin is 9.9, basic metabolic profile is normal bicarb is 22 BUN is 46 creatinine 2.24. Remains on Zosyn empirically she is also on Flagyl repeat blood cultures were requested today. Her last blood cultures were positive for E. coli Patient was reevaluated today on 06/01/2023, patient remains in the ICU, intubated and mechanically ventilated still on assist control rate of 2009 volume 400 FiO2 35% and PEEP of 5. Remains on norepinephrine at 0.12 mcg/kg/m also on vasopressin at 0.03 units per hour patient is on IV fluid at 1 35 mL per hour receiving vital HPI 10 mL per hour remains on Unasyn, she is also on daptomycin and Flagyl. Patient was given a trial off sedation yesterday and she was following simple instructions but she was generally weak. Blood pressure seems to be better today, nonetheless requiring norepinephrine and vasopressin. Continues to have wound VAC in place continues to have ostomy in place seems to be functional with some serous drainage in the ostomy tube. PABLO drain is draining some serous drainage also. CPKs seems to be quite high, and the patient remains mottled. ABG today showed a pO2 of 136 pCO2 39 pH of 7.31. WBC count is 19.3 hemoglobin 9.5 electrolytes are normal, BUN is 46 creatinine 2.34, slightly worse compared to creatinine yesterday of 2.4. CPK is 15,962 slightly higher compared to yesterday Objective - Vital Signs Vital signs: Vital Signs Temp 98.2 F 06/01/23 07:00 Pulse 90 06/01/23 11:36 Resp 19 06/01/23 11:30 BP 109/64 06/01/23 11:30 Pulse Ox 100 06/01/23 11:30 FiO2 35 06/01/23 11:28 Intake & Output 05/31/23 06/01/23 06/01/23 18:59 06:59 18:59 Intake Total 2426.952 2064.606 1021.192 Output Total 310 357 210 Balance 2116.952 1707.606 811.192 Weight 76 kg 82.8 kg Intake: IV 1597 1731 914 0.9 NS KVO 100 90 40 ARTERIAL LINE & CVP 72 66 24 Ampicillin-Sulbactam 3 gm 100 In Sodium Chloride 0.9% 100 ml @ 200 mls/hr IVPB Q12HR [facility] Rx#:[id number] Ampicillin-Sulbactam 3 gm 100 In Sodium Chloride 0.9% 100 ml @ 200 mls/hr IVPB Q12HR@1000,2200 [facility] Rx#: [id number] Calcium Gluconate in NaCl 100 2 gm In Saline 1 100ml. bag @ 100 mls/hr IVPB ONCE ONE Rx#:[id number] DAPTOmycin 350 mg In 50 Sodium Chloride 0.9% 50 ml @ 100 mls/hr IVPB Q24HR [facility] Rx#:[id number] Piperacillin-Tazobactam 3 100 .375 gm In Sodium Chloride 0.9% 100 ml @ 25 mls/hr IVPB Q8HR [facility] Rx# :[id number] Sodium Chloride 0.9% 1, 1125 1375 500 000 ml @ 125 mls/hr IV . Q8H [facility] Rx#:[id number] metroNIDAZOLE-NS PMX 500 200 100 100 mg In Saline 1 100ml.bag @ 100 mls/hr IVPB Q6H [facility] Rx#:[id number] Intake, IV Titration 799.952 133.606 47.192 Amount Ampicillin-Sulbactam 3 gm 100 In Sodium Chloride 0.9% 100 ml @ 200 mls/hr IVPB Q12HR [facility] Rx#:[id number] Norepinephrine 32 mg In 48.242 67.040 13.758 Sodium Chloride 0.9% 218 ml @ 0.03 MCG/KG/MIN 0. 778 mls/hr IV .Q24H [facility] Rx#:[id number] Vancomycin 1,250 mg In 500 Sodium Chloride 0.9% 250 ml @ 125 mls/hr IVPB ONCE ONE Rx#:[id number] Vasopressin 60 unit In 119.34 Sodium Chloride 0.9% 150 ml @ 0.03 UNITS/MIN 4.59 mls/hr IV .Q24H [facility] Rx#: [id number] propofoL 1,000 mg In 32.370 66.566 33.434 Empty Bag 1 bag @ 15 MCG/ KG/MIN 4.98 mls/hr IV . Q20H5M [facility] Rx#:[id number] Tube Feeding 30 110 30 Other 90 30 Output: Drainage 20 80 40 Left Lower Abdomen 20 80 40 Urine 290 277 170 Other: Voiding Method Indwelling Catheter Indwelling Catheter Indwelling Catheter ABP, PAP, CO, CI - Last Documented Arterial Blood Pressure 97/55 - Exam Physical Exam: Revealed 63-year-old female, intubated mechanically ventilated, orogastric tube and endotracheal tube are intact. Head: Atraumatic, normocephalic. HEENT:[Neck is supple.] [No neck masses.] [No thyromegaly.] [No JVD.] Chest: [Diminished breath sounds mostly at the bases bilaterally. Cardiac Exam: [Normal S1 and S2, no S3 gallop, no murmur.] Abdomen: [Postsurgical, soft, nontender, diminished bowel sounds. Wound VAC noted PABLO drain noted ostomy seems to be functional. Extremities: [Significant mottling noted in the lower extremities with diminished distal pulses. Feet are both cold. 2+ bipedal edema Neurological Exam: Could not assess, patient is sedated. Psychiatric: Could not assess. Skin: Mottling of the skin is noted especially in lower extremities and in the abdominal area - Labs CBC & Chem 7: 06/01/23 04:23 06/01/23 04:23 Labs: Abnormal Lab Results - Last 24 Hours (Table) 05/31/23 05/31/23 05/31/23 Range/Units 11:59 18:09 23:40 WBC (3.8-10.6) k/uL RBC (3.80-5.40) m/uL Hgb (11.4-16.0) gm/dL Hct (34.0-46.0) % RDW (11.5-15.5) % Plt Count (150-450) k/uL Neutrophils # (1.3-7.7) k/uL Lymphocytes # (1.0-4.8) k/uL ABG pH (7.35-7.45) ABG pO2 (83-108) mmHg ABG HCO3 (21-25) mmol/L ABG O2 Saturation (94-97) % Chloride (98-107) mmol/L Carbon Dioxide (22-30) mmol/L BUN (7-17) mg/dL Creatinine (0.52-1.04) mg/dL Glucose (74-99) mg/dL POC Glucose (mg/dL) 151 H 119 H 140 H (70-110) mg/dL Calcium (8.4-10.2) mg/dL Phosphorus (2.5-4.5) mg/dL Creatine Kinase (30-135) U/L 06/01/23 06/01/23 06/01/23 Range/Units 04:23 04:23 05:32 WBC 19.3 H (3.8-10.6) k/uL RBC 3.24 L (3.80-5.40) m/uL Hgb 9.5 L (11.4-16.0) gm/dL Hct 29.7 L (34.0-46.0) % RDW 16.8 H (11.5-15.5) % Plt Count 52 L (150-450) k/uL Neutrophils # 18.3 H (1.3-7.7) k/uL Lymphocytes # 0.5 L (1.0-4.8) k/uL ABG pH (7.35-7.45) ABG pO2 (83-108) mmHg ABG HCO3 (21-25) mmol/L ABG O2 Saturation (94-97) % Chloride 110 H (98-107) mmol/L Carbon Dioxide 20 L (22-30) mmol/L BUN 46 H (7-17) mg/dL Creatinine 2.34 H (0.52-1.04) mg/dL Glucose 124 H (74-99) mg/dL POC Glucose (mg/dL) 133 H (70-110) mg/dL Calcium 5.3 L* (8.4-10.2) mg/dL Phosphorus (2.5-4.5) mg/dL Creatine Kinase 61052 H* (30-135) U/L 06/01/23 06/01/23 Range/Units 05:57 10:36 WBC (3.8-10.6) k/uL RBC (3.80-5.40) m/uL Hgb (11.4-16.0) gm/dL Hct (34.0-46.0) % RDW (11.5-15.5) % Plt Count (150-450) k/uL Neutrophils # (1.3-7.7) k/uL Lymphocytes # (1.0-4.8) k/uL ABG pH 7.31 L (7.35-7.45) ABG pO2 136 H (83-108) mmHg ABG HCO3 20 L (21-25) mmol/L ABG O2 Saturation 98.4 H (94-97) % Chloride (98-107) mmol/L Carbon Dioxide (22-30) mmol/L BUN (7-17) mg/dL Creatinine (0.52-1.04) mg/dL Glucose (74-99) mg/dL POC Glucose (mg/dL) (70-110) mg/dL Calcium (8.4-10.2) mg/dL Phosphorus 4.9 H (2.5-4.5) mg/dL Creatine Kinase (30-135) U/L Microbiology - Last 24 Hours (Table) 05/27/23 14:52 Anaerobic Culture - Preliminary Peritoneal Fluid Anaerobic Gm Negative Bacilli Anaerobic Gm Negative Bacilli#2 Anaerobic Gm Negative Bacilli#3 Assessment and Plan Assessment: Impression: Septic shock secondary to acute pneumoperitoneum and abdominal sepsis Acute fecal peritonitis Chronic constipation with previous right and left colectomy and colostomy with subsequent reversal Acute kidney injury secondary to above Acute rhabdomyolysis History of underlying COPD Acute hypoxic and hypercapnic respiratory failure secondary to above History of appendiceal carcinoma Remote history of pulmonary embolism, not anticoagulated History of cervical C3 stenosis Degenerative joint disease Chronic medical debility, [place] [facility] resident Acute thrombocytopenia secondary to sepsis Severe protein calorie malnutrition with hypoproteinemia and hypoalbuminemia Recommendation: Continue ventilatory support, however will try the patient off sedation on pressure support and CPAP if possible today. Continue sedation but daily sedation interruption will be done. Continue hemodynamic support and titrate pressors accordingly, I believe her presses could be titrated down today considering her blood pressure is better today. May consider weaning trials today with pressure support and CPAP if possible Continue nutritional support, patient is on vital HP Continue pressors and titrate accordingly Continue GI and DVT prophylaxis/Protonix and subcu heparin Continue bronchodilators Continue antibiotics and/Zosyn and Flagyl, and daptomycin Repeat blood cultures have been requested, are pending previous blood cultures have been positive for E. coli Patient is obviously critically ill Critical care time is over 30 minutes Time with Patient: Greater than 30
[2023-06-01 12:58] LABS: Glucose,Whole Blood 138 mg/dL (70-110)
[2023-06-01] MEDS: NOREPINEPHRINE 32 MG in SODIUM CHLORIDE 0.9% 218 ML IV SCH (16:19)
--- NOTE | 2023-06-01 16:58 | P.PN ---
Subjective Progress Note Date: 06/01/23 Principal diagnosis: Sepsis and intra-abdominal abscess Patient is a 63-year-old female with a past medical history significant for COPD PE osteoarthritis patient presented to the hospital 2 days ago for evaluation of abdominal pain, CT abdominal pelvis large pneumoperitoneum with large fecal bolus of the rectum ,patient is status post subtotal colectomy and partial proctectomy. On today's evaluation that is 06/01/2023, the patient continues to be afebrile, the patient is requiring less pressure support to maintain her blood pressure per the nursing staff, patient remains to be intubated on the vent and FiO2 is stable at 35%, no significant purulent secretion through the ET or any other changes reported by the nursing staff patient did have a hemoglobin of 9.5, white count is up to 19.3 today, creatinine is 2.34 Objective - Vital Signs Vital signs: Vital Signs Temp 98.2 F 06/01/23 07:00 Pulse 96 06/01/23 13:00 Resp 23 06/01/23 13:00 BP 107/65 06/01/23 13:00 Pulse Ox 100 06/01/23 13:00 FiO2 35 06/01/23 12:00 Intake & Output 05/31/23 06/01/23 06/01/23 18:59 06:59 18:59 Intake Total 2426.952 2064.606 1332.156 Output Total 310 357 390 Balance 2116.952 1707.606 942.156 Weight 76 kg 82.8 kg Intake: IV 1597 1731 1196 0.9 NS KVO 100 90 60 ARTERIAL LINE & CVP 72 66 36 Ampicillin-Sulbactam 3 gm 100 In Sodium Chloride 0.9% 100 ml @ 200 mls/hr IVPB Q12HR [facility] Rx#:[id number] Ampicillin-Sulbactam 3 gm 100 In Sodium Chloride 0.9% 100 ml @ 200 mls/hr IVPB Q12HR@1000,2200 [facility] Rx#: [id number] Calcium Gluconate in NaCl 100 2 gm In Saline 1 100ml. bag @ 100 mls/hr IVPB ONCE ONE Rx#:[id number] DAPTOmycin 350 mg In 50 Sodium Chloride 0.9% 50 ml @ 100 mls/hr IVPB Q24HR [facility] Rx#:[id number] Piperacillin-Tazobactam 3 100 .375 gm In Sodium Chloride 0.9% 100 ml @ 25 mls/hr IVPB Q8HR [facility] Rx# :[id number] Sodium Chloride 0.9% 1, 1125 1375 750 000 ml @ 125 mls/hr IV . Q8H [facility] Rx#:[id number] metroNIDAZOLE-NS PMX 500 200 100 100 mg In Saline 1 100ml.bag @ 100 mls/hr IVPB Q6H [facility] Rx#:[id number] Intake, IV Titration 799.952 133.606 56.156 Amount Ampicillin-Sulbactam 3 gm 100 In Sodium Chloride 0.9% 100 ml @ 200 mls/hr IVPB Q12HR [facility] Rx#:[id number] Norepinephrine 32 mg In 48.242 67.040 13.758 Sodium Chloride 0.9% 218 ml @ 0.03 MCG/KG/MIN 0. 778 mls/hr IV .Q24H [facility] Rx#:[id number] Vancomycin 1,250 mg In 500 Sodium Chloride 0.9% 250 ml @ 125 mls/hr IVPB ONCE ONE Rx#:[id number] Vasopressin 60 unit In 119.34 Sodium Chloride 0.9% 150 ml @ 0.03 UNITS/MIN 4.59 mls/hr IV .Q24H [facility] Rx#: [id number] propofoL 1,000 mg In 32.370 66.566 42.398 Empty Bag 1 bag @ 15 MCG/ KG/MIN 4.98 mls/hr IV . Q20H5M [facility] Rx#:[id number] Tube Feeding 30 110 50 Other 90 30 Output: Drainage 20 80 60 Left Lower Abdomen 20 80 60 Urine 290 277 330 Other: Voiding Method Indwelling Catheter Indwelling Catheter Indwelling Catheter ABP, PAP, CO, CI - Last Documented Arterial Blood Pressure 90/53 - Exam GENERAL DESCRIPTION: Middle-aged female intubated on the vent RESPIRATORY SYSTEM: Unlabored breathing , decreased breath sounds at bases HEART: S1 S2 regular rate and rhythm , ABDOMEN: Soft , no tenderness EXTREMITIES: No edema feet - Labs CBC & Chem 7: 06/01/23 04:23 06/01/23 04:23 Labs: Abnormal Lab Results - Last 24 Hours (Table) 05/31/23 05/31/23 06/01/23 Range/Units 18:09 23:40 04:23 WBC (3.8-10.6) k/uL RBC (3.80-5.40) m/uL Hgb (11.4-16.0) gm/dL Hct (34.0-46.0) % RDW (11.5-15.5) % Plt Count (150-450) k/uL Neutrophils # (1.3-7.7) k/uL Lymphocytes # (1.0-4.8) k/uL ABG pH (7.35-7.45) ABG pO2 (83-108) mmHg ABG HCO3 (21-25) mmol/L ABG O2 Saturation (94-97) % Chloride 110 H (98-107) mmol/L Carbon Dioxide 20 L (22-30) mmol/L BUN 46 H (7-17) mg/dL Creatinine 2.34 H (0.52-1.04) mg/dL Glucose 124 H (74-99) mg/dL POC Glucose (mg/dL) 119 H 140 H (70-110) mg/dL Calcium 5.3 L* (8.4-10.2) mg/dL Phosphorus (2.5-4.5) mg/dL Creatine Kinase 16460 H* (30-135) U/L 06/01/23 06/01/23 06/01/23 Range/Units 04:23 05:32 05:57 WBC 19.3 H (3.8-10.6) k/uL RBC 3.24 L (3.80-5.40) m/uL Hgb 9.5 L (11.4-16.0) gm/dL Hct 29.7 L (34.0-46.0) % RDW 16.8 H (11.5-15.5) % Plt Count 52 L (150-450) k/uL Neutrophils # 18.3 H (1.3-7.7) k/uL Lymphocytes # 0.5 L (1.0-4.8) k/uL ABG pH 7.31 L (7.35-7.45) ABG pO2 136 H (83-108) mmHg ABG HCO3 20 L (21-25) mmol/L ABG O2 Saturation 98.4 H (94-97) % Chloride (98-107) mmol/L Carbon Dioxide (22-30) mmol/L BUN (7-17) mg/dL Creatinine (0.52-1.04) mg/dL Glucose (74-99) mg/dL POC Glucose (mg/dL) 133 H (70-110) mg/dL Calcium (8.4-10.2) mg/dL Phosphorus (2.5-4.5) mg/dL Creatine Kinase (30-135) U/L 06/01/23 06/01/23 Range/Units 10:36 12:56 WBC (3.8-10.6) k/uL RBC (3.80-5.40) m/uL Hgb (11.4-16.0) gm/dL Hct (34.0-46.0) % RDW (11.5-15.5) % Plt Count (150-450) k/uL Neutrophils # (1.3-7.7) k/uL Lymphocytes # (1.0-4.8) k/uL ABG pH (7.35-7.45) ABG pO2 (83-108) mmHg ABG HCO3 (21-25) mmol/L ABG O2 Saturation (94-97) % Chloride (98-107) mmol/L Carbon Dioxide (22-30) mmol/L BUN (7-17) mg/dL Creatinine (0.52-1.04) mg/dL Glucose (74-99) mg/dL POC Glucose (mg/dL) 138 H (70-110) mg/dL Calcium (8.4-10.2) mg/dL Phosphorus 4.9 H (2.5-4.5) mg/dL Creatine Kinase (30-135) U/L Microbiology - Last 24 Hours (Table) 05/27/23 14:52 Anaerobic Culture - Preliminary Peritoneal Fluid Anaerobic Gm Negative Bacilli Anaerobic Gm Negative Bacilli#2 Anaerobic Gm Negative Bacilli#3 Assessment and Plan (1) Sepsis Current Visit: Yes Status: Acute Code(s): A41.9 - SEPSIS, UNSPECIFIED ORGANISM SNOMED Code(s): 59536068 (2) Peritonitis Current Visit: Yes Status: Acute Code(s): K65.9 - PERITONITIS, UNSPECIFIED SNOMED Code(s): 28415923 Plan: 1patient with a septic shock secondary to perforated colorectal anastomosis and bowel ischemia this patient evidence of marginal improvement status post extensive surgery we will need to cover for detailed gram-negative the likely pathogen 2E. coli bacteremia source likely abdominal which is a sensitive pathogen, however abdominal culture also growing enterococcus that is resistant to ampicillin along with anaerobic gram-negative bacilli 3- we will continue the patient on Unasyn along with daptomycin and monitor clinical course closely Dictation was produced using [employer] dictation software. please excuse any grammatical, word or spelling errors. Time with Patient: Less than 30
[2023-06-01 17:40] LABS: Glucose,Whole Blood 127 mg/dL (70-110)
--- NOTE | 2023-06-01 21:13 | P.PN ---
Progress Note - Text Progress Note Date: 06/01/23 - Chief Complaint Acute abdomen - History of Present Illness This is a 63-year-old patient, who had severe ileus of right and left: And underwent right and left colectomy with end colostomy by Dr. Worthington on 09/21/2022. on January 29/2023 underwent exploratory laparotomy with takedown of colostomy and takedown of splenic flexure with partial colectomy and repair of incisional hernia and lysis of adhesions by Dr. Worthington. Following that pat jarednt had a three-week stay in the hospital for protracted ileus. And finally was discharged on February 25. Patient then presented to the ER on the evening of May 26. Patient presented here from [facility]. Per EMS report patient had a bowel movement for about 3 days. And increasing abdominal discomfort. Patient has remained nonambulatory. Computed tomography scan in the ER showed large pneumoperitoneum. Large fecal bolus of the rectum. Gallstones. Ascites. Patient seen by Dr. Parikh from general surgery.. Patient was taken to the OR for exploratory laboratory yesterday and had subtotal colectomy with partial proctectomy carried out. About 200 mL of pelvic abscess fecal peritonitis was drained. End ileostomy was carried out. Incisional wound VAC prerenal was placed. Left salpingo-oophorectomy was done. Patient continues clean ICU. On the ventilator intubated. FiO2 40 and a PEEP of 5. Drips include IV vasopressor, levo fed, propofol, bicarbonate. No output from the ileostomy bag. 05/29/2023: ICU. IV propofol. FiO2 50 PEEP of 5. Intubated. Remains on IV Zosyn, IV Flagyl. Extremity bilateral skin mottling. Extremities are cold. On IV vasopressin, IV norepinephrine. Sinus rhythm. No output in the ileostomy. Wound VAC in place. Serosanguineous output out of the PABLO drain. Family at bedside. 05/30/2023: ICU. Intubated. FiO2 40 to PEEP of 5. with the patient DO NOT RESUSCITATE yesterday. Drips include propofol, norepinephrine, vasopressin. 2 feeding started at 10 mL an hour. Putting out liquid stools over the ileostomy bag. No output from the PABLO drain. Patient seen by vascular Dr. Giliberto. Currently no further intervention. 05/31/1933: ICU. Intubated. FiO2 35 to PEEP of 5. Sinus rhythm. It's include norepinephrine, propofol, vasopressin. NG tube. 2 feeding at 10 mL an hour. That has been output from the ileostomy bag. Repeat blood cultures ordered. June 01: ICU. Intubated. FiO2 35 PEEP of 5. Sinus rhythm. Off propofol. Eyes open. IV drips include norepinephrine and vasopressin. CPAP today. 2 feeding at 20 mL an hour. I'll report to the ileostomy bag. No output through the Provena. PABLO drain about 20-40 mL in 24 hours.-Serous Active Medications Albuterol/Ipratropium (Ipratropium-Albuterol 3 Ml Neb) 3 ml INHALATION RT-Q4H [facility] Last Admin: 06/01/23 20:16 Dose: 3 ml Chlorhexidine Gluconate (Chlorhexidine Gluconate 15 Ml Cup) 15 ml MUCOUS MEM BID [facility] Last Admin: 06/01/23 08:48 Dose: 15 ml Dextrose/Water (Dextrose 50% Syringe 50 Ml) 25 ml IVP PER PROTOCOL PRN; Protocol PRN Reason: Hypoglycemia Last Admin: 05/30/23 15:48 Dose: 25 ml Dextrose/Water (Dextrose 50% Syringe 50 Ml) 50 ml IVP PER PROTOCOL PRN; Protocol PRN Reason: Hypoglycemia Hydromorphone HCl (Hydromorphone 1 Mg/Ml 1 Ml Syringe) 1 mg IVP Q3HR PRN PRN Reason: Moderate to Severe Pain (4-10) Last Admin: 05/31/23 21:25 Dose: 1 mg Metronidazole 500 mg/ IV (Solution) 100 mls @ 100 mls/hr IVPB Q6H [facility]; Protocol Last Admin: 06/01/23 16:20 Dose: 100 mls/hr Norepinephrine Bitartrate 32 (mg/ Sodium Chloride) 250 mls @ 0.778 mls/hr IV .Q24H [facility]; Protocol Last Titration: 06/01/23 18:40 Dose: 0.06 mcg/kg/min, 1.556 mls/hr Propofol 1,000 mg/ IV Solution 100 mls @ 4.98 mls/hr IV .Q20H5M [facility]; Protocol Last Admin: 06/01/23 18:34 Dose: 5 mcg/kg/min, 1.66 mls/hr Vasopressin 60 unit/ Sodium (Chloride) 153 mls @ 4.59 mls/hr IV .Q24H [facility]; Protocol Last Admin: 05/31/23 17:20 Dose: 0.03 units/min, 4.59 mls/hr Sodium Chloride (Saline 0.9%) 1,000 mls @ 125 mls/hr IV .Q8H [facility] Last Admin: 06/01/23 16:20 Dose: 125 mls/hr Ampicillin Sodium/Sulbactam (Sodium 3 gm/ Sodium Chloride) 100 mls @ 200 mls/hr IVPB Q12HR@1000,2200 [facility]; Protocol Last Admin: 06/01/23 09:34 Dose: 200 mls/hr Daptomycin 350 mg/ Sodium (Chloride) 50 mls @ 100 mls/hr IVPB Q48H [facility]; Protocol Miscellaneous Information (Magnesium Replacement Protocol 1 Each Misc) 1 each MISCELLANE DAILY PRN; Protocol PRN Reason: Per Protocol Miscellaneous Information (Phosphorus Replacement Protoco 1 Each Misc) 1 each MISCELLANE DAILY PRN; Protocol PRN Reason: Per Protocol Naloxone HCl (Naloxone 0.4 Mg/Ml 1 Ml Vial) 0.2 mg IV Q2M PRN PRN Reason: Opioid Reversal Ondansetron HCl (Ondansetron 4 Mg/2 Ml Vial) 4 mg IVP Q8HR PRN PRN Reason: Nausea And Vomiting Pantoprazole Sodium (Pantoprazole 40 Mg/10 Ml Vial) 40 mg IV DAILY [facility] Last Admin: 06/01/23 08:48 Dose: 40 mg Past medical history to include: Hypothyroid, osteomyelitis, COPD, left colectomy with end colostomy Social history: Currently at [facility]. Smokes about half a pack a day since age 21, up to February 2023.. Doesn't really walk currently. Physical examination: VITAL SIGNS: 98.2, 101, 24, 102/61, GENERAL:, In bed, sedated EYES: Pupils equal. Conjunctiva pale HEENT: External appearance of nose and ears normal, oral cavity dry mucous membranes. ET tube. NECK: JVD unable to assess; masses not palpable. HEART: First and second heart sounds are normal; no edema. LUNGS: Respiratory rate increased; decreased breath sounds. ABDOMEN: Soft,, nontender Liver spleen not palpable, no masses palpable. Midline Provena. Left-sided PABLO minimal output. Right-sided ileostomy bag with liquid stools PSYCH: Does open eyes MUSCULOSKELETAL:No Clubbing/cyanosis;muscles-grossly intact. Mottling of the lower extremities. Cold lower extremity. INVESTIGATIONS, reviewed in the clinical context: June 01: White count 19.3 hemoglobin 9.5 platelets 52 sodium 140 BUN 46 creatinine 2.34 potassium 5.3 CPK 23377 May 31: WBC 16.7 hemoglobin 9.9 platelets 57 sodium 139 potassium 3.9 BUN 46 creatinine 2.24 CPK 84885 Peritoneal fluid: E. coli, enterococcus raffinosus Blood culture [May 26]: E. coli May 30: White count 9.2 hemoglobin 9.7 platelets 59 potassium 3.8 BUN 43 creatinine 1.89 ionized calcium 3.5 CPK 47443 May 29: White count 7.1 hemoglobin 9.7 platelets 59 potassium 3.2 BUN 41 and creatinine 1.59 05/28/2023: White count 4.4 hemoglobin 10.6 platelets 161 2139 potassium 4.5 BUN 40 creatinine 1.67 bicarb 17 calcium 5.9 ionized calcium 3.6 magnesium 1.3 Previous labs: Creatinine 1.28 on 05/26/2023. 0.77 on 02/25/2023. EKG tracing personally reviewed by me-normal sinus rhythm. P pulmonale. Nonspecific T-wave changes. Chest x-ray film personally reviewed by me-hyperinflation CT abdomen pelvis [May 26] large pneumoperitoneum. Large fecal bolus of the rectum. Fecal debris within the redundant sigmoid colon. Because of the volvulus. Cholelithiasis. Ascites. Assessment and plan: -Acute bowel perforation leading to pneumoperitoneum and septic peritonitis. Paternal culture Cultures positive-. coli, enterococcus raffinosus: Slow to respond IV Flagyl. IV Unasyn. IV daptomycin added -Septic shock from above: Severe, slow to respond IV vasopressin, IV levo fed. -Acute metabolic acidosis multifactorial including renal failure: Better -Acute kidney injury, ATN from septic shock.: Slow to respond Follow with nephrology -Suspect PAD in a patient who smoker Follow with vascular. No current intervention. -Hypocalcemia Replace -Acute rhabdomyolysis, multifactorial: Slow to respond -Acute thrombocytopenia secondary to sepsis: Slow to respond Treat underlying infection -Acute hypoxic respiratory failure, requiring ventilator support: Slow to re spond -Exploratory laparotomy: Subtotal colectomy with partial proctectomy; Drainage of pelvic abscess/fecal peritonitis, 200-mL; End ileostomy; Placement of round #19 garfield rodriguez drain; Placement of incisional wound vac, 20-cm, PREVENa; Left salpingo-oophorectomy with Dr. Mariely Parikh on May 27. -Reversal of colostomy in February 2023. Right and left colectomy with end colostomy in September [address] Worthington -Acute postprocedure blood loss anemia, expected from surgery contributing to hypotension: Admission hemoglobin 14.9. -GERD PPI -Chronic medical debility from surgery. Other medical conditions. per F patient has recently been nonambulatory. -Hypothyroid Levothyroxin -COPD in a previous smoker DuoNeb every 4 -Anemia of chronic disease hemoglobin 11.3 Iron deficiency from blood loss. -DO NOT RESUSCITATE IV daptomycin added. CPAP this morning. Remains critical. Continue pressors. Past Medical History Past Medical History: Cancer, COPD, GERD/Reflux, Osteoarthritis (OA), Pulmonary Embolus (PE), Thyroid Disorder Additional Past Medical History / Comment(s): CANCER APPENDIX, COLOSTOMY, HEART MURMUR., STATES PE 2017., CERVICAL STENOSIS WITH HERNIATED DISC., ABD WOUND DIHISENCE., RESIDES AT [facility]. History of Any Multi-Drug Resistant Organisms: MRSA Year Discovered:: 11/24/22 MDRO Source:: ABD WOUND Past Surgical History: Section Additional Past Surgical History / Comment(s): RIGHT AND LEFT COLECTOMY WITH COLOSTOMY., COLONOSCOPY; ostomy reversal/hernia repair/colectomy (01/29/23). Past Anesthesia/Blood Transfusion Reactions: No Reported Reaction Past Psychological History: No Psychological Hx Reported Smoking Status: Current every day smoker Past Alcohol Use History: None Reported Additional Past Alcohol Use History / Comment(s): SMOKES 1/2 PPD, STARTED SMOKING AGE 21. Past Drug Use History: None Reported - Past Family History Mother History Unknown: Yes Family Medical History: No Reported History Medications and Allergies Home Medications Medication Instructions Recorded Confirmed Type Levothyroxine Sodium [Euthyrox] 75 mcg PO DAILY #30 tab 09/17/22 05/26/23 Rx Ipratropium-Albuterol Nebulize 3 ml INHALATION RT-TID PRN 10/04/22 05/26/23 History [Duoneb 0.5 mg-3 mg/3 ml Soln] Omeprazole [PriLOSEC] 20 mg PO DAILY 10/04/22 05/26/23 History Acetaminophen Tab [Tylenol] 325 mg PO Q6HR PRN 01/26/23 05/26/23 History Calcium Carbonate/Vitamin D3 1 tab PO DAILY 01/26/23 05/26/23 History [Calcium 600 mg-Vit D3 5 mcg (200 unit)] Cholecalciferol [Vitamin D3 (25 25 mcg PO DAILY 01/26/23 05/26/23 History Mcg = 1000 Iu)] Pyridoxine HCl (Vitamin B6) 100 mg PO DAILY 01/26/23 05/26/23 History [Vitamin B-6] HYDROcodone/APAP 5-325MG [Robinson 1 tab PO Q6HR PRN 3 Days #12 tab 02/25/23 05/26/23 Rx 5-325] Docusate [Colace] 100 mg PO BID 05/26/23 05/26/23 History Folic Acid 0.4 mg PO HS 05/26/23 05/26/23 History Healthshake 1 dose PO TID 05/26/23 05/26/23 History Magnesium Citrate [Citrate of 1.745 gm PO DAILY PRN 05/26/23 05/26/23 History Magnesia] Multivitamins, Thera [Multivitamin 1 tab PO HS 05/26/23 05/26/23 History (formulary)] Psyllium Husk 100% [Metamucil 6 gm PO DAILY 05/26/23 05/26/23 History Packet] Allergies Allergy/AdvReac Type Severity Reaction Status Date / Time No Known Allergies Allergy Verified 05/26/23 17:49
[2023-06-01] MEDS: HYDROmorphone 1 MG/ML 1 ML SYRINGE IVP PRN (22:26)
[2023-06-01 23:40] LABS: Glucose,Whole Blood 126 mg/dL (70-110)
[2023-06-02 02:58] LABS: Glucose,Whole Blood 116 mg/dL (70-110)
[2023-06-02] MEDS: HYDROmorphone 1 MG/ML 1 ML SYRINGE IVP PRN ×3 (03:01→23:49)
[2023-06-02] MEDS: IPRATROPIUM-ALBUTEROL 3 ML NEB INHALATION SCH ×5 (04:19→20:40)
[2023-06-02] MEDS: metroNIDAZOLE-NS PMX 500 MG in SALINE 1 100ML.BAG IVPB SCH ×4 (04:37→23:49)
[2023-06-02] MEDS: SODIUM CHLORIDE 0.9% 1,000 ML IV SCH ×2 (04:38→09:49)
[2023-06-02] MEDS: NOREPINEPHRINE 32 MG in SODIUM CHLORIDE 0.9% 218 ML IV SCH (04:39)
[2023-06-02] MEDS: VASOPRESSIN 60 UNIT in SODIUM CHLORIDE 0.9% 150 ML IV SCH ×2 (04:41→08:20)
[2023-06-02 04:55] LABS: Anisocytosis Slight; Basophils # (A) 0.1 k/uL (0-0.2); Basophils % (A) 0 %; Eosinophils # (A) 0.1 k/uL (0-0.7); Eosinophils % (A) 0 %; HCT 29.1 % (34.0-46.0); HGB 9.3 gm/dL (11.4-16.0); Hypochromasia Slight; Lymphocytes # (A) 0.4 k/uL (1.0-4.8); Lymphocytes % (A) 2 %; MCH 29.2 pg (25.0-35.0); MCV 91.1 fL (80.0-100.0); Mean Platelet Volume 11.3; Monocytes # (A) 0.3 k/uL (0-1.0); Monocytes % (A) 1 %; Neutrophils # (A) 18.2 k/uL (1.3-7.7); Neutrophils % (A) 95 %; RBC 3.19 m/uL (3.80-5.40); RDW 16.9 % (11.5-15.5); WBC 19.2 k/uL (3.8-10.6)
[2023-06-02 05:03] LABS: Anion Gap 12 mmol/L; Blood Urea Nitrogen 46 mg/dL (7-17); Carbon Dioxide 18 mmol/L (22-30); Chloride 111 mmol/L (98-107); Glucose 118 mg/dL (74-99); Potassium 3.4 mmol/L (3.5-5.1); Sodium 141 mmol/L (137-145)
[2023-06-02 05:17] LABS: Calcium 5.8 mg/dL (8.4-10.2)
[2023-06-02 05:27] LABS: Platelet Count 47 k/uL (150-450)
[2023-06-02 05:34] LABS: African American GFR (CKD) 25 (>60 ml/min/1.73 sqM); Non-African American GFR(CKD) 22 (>60 ml/min/1.73 sqM)
[2023-06-02 05:54] LABS: Glucose,Whole Blood 127 mg/dL (70-110)
[2023-06-02 05:54] LABS: Creatine Kinase 10130 U/L (30-135)
[2023-06-02 06:20] LABS: ABG Base Excess -5.7 mmol/L; ABG HCO3 20 mmol/L (21-25); ABG Oxygen Saturation 98.5 % (94-97); ABG PCO2 40 mmHg (35-45); ABG PH 7.32 (7.35-7.45); ABG PO2 148 mmHg (83-108); ABG TCO2 22 mmol/L (19-24)
[2023-06-02 06:22] LABS: Magnesium 1.8 mg/dL (1.6-2.3)
[2023-06-02] MEDS ORDERED: MAGNESIUM SULFATE-D5W PMX 1 GM in DEXTROSE/WATER 1 100ML.BAG IVPB ONE (07:14)
--- NOTE | 2023-06-02 09:03 | XR ---
EXAMINATION TYPE: XR chest 1V portable DATE OF EXAM: 06/02/2023 COMPARISON: 06/01/2023 HISTORY: Shortness of breath TECHNIQUE: Single frontal view of the chest is obtained. FINDINGS: Bilateral trace pleural effusions stable. Some interstitial pattern. Underlying COPD noted . Borderline mild cardiomegaly. Hypertrophic degenerative changes of the spine, diffuse osteopenia th roughout the shoulders. Surgical elida noted. ET and NG tubes stable. Central line stable. IMPRESSION: 1. Stable findings of bilateral lower lobe infiltrate and small effusion related to mild venous conge stion.
[2023-06-02] MEDS ORDERED: FUROSEMIDE 10 MG/ML 2 ML VIAL IV ONE ×2 (09:21→11:06)
[2023-06-02] MEDS: POTASSIUM CHLORIDE 10 MEQ in WATER FOR INJECTION 1 100ML.BAG IVPB SCH ×2 (09:48→10:51)
[2023-06-02] MEDS: ERGOCALCIFEROL 1,250 MCG (50,000 IU) CAPSULE PO SCH (09:49)
[2023-06-02] MEDS: PANTOPRAZOLE 40 MG/10 ML VIAL IV SCH (09:49)
[2023-06-02] MEDS: CHLORHEXIDINE GLUCONATE 15 ML CUP MUCOUS MEM SCH ×2 (09:49→20:43)
[2023-06-02] MEDS: AMPICILLIN-SULBACTAM 3 GM in SODIUM CHLORIDE 0.9% 100 ML IVPB SCH ×2 (09:52→20:43)
[2023-06-02] MEDS ORDERED: CALCIUM GLUCONATE IN NACL 2 GM in SALINE 1 100ML.BAG IVPB ONE (10:00)
--- NOTE | 2023-06-02 11:09 | P.PN ---
Subjective Progress Note Date: 06/02/23 CHIEF COMPLAINT: Perforated colorectal anastomosis HISTORY OF PRESENT ILLNESS: Patient is postop day #6 status post exploratory laparotomy, subtotal colectomy with partial proctectomy, drainage of pelvic a bscess, and ileostomy, open fecal disimpaction and left salpingo-oophorectomy. Patient remains in the ICU and on mechanical ventilation. She is able to open her eyes. She did a couple hours of CPAP being yesterday. She is tolerating tube feeds. Ostomy functioning. They're coming down on the Levophed. Afebrile. WBC stable at 19.2 Hgb9.3 platelets 47 potassium 3.4 creatinine 2.9 CPK elevated trending down. PHYSICAL EXAM: VITAL SIGNS: Reviewed GENERAL: Well-developed in no acute distress. HEENT: No sclera icterus. Moist buccal mucosa. Head is atraumatic, normocephalic. No nasal drainage. NECK: Supple without lymphadenopathy. CHEST: Non-labored respirations and equal bilateral excursions. CARDIOVASCULAR: Palpable 2+ radial pulses. ABDOMEN: Soft. Distended. Ostomy with air and stool. Ostomy is pink. Patient has bruising on abdominal wall between the ostomy and Prevana wound vac. Wound vac is intact. NG tube in place MUSCULOSKELETAL: No clubbing or cyanosis. NEUROLOGIC: Patient opening her eyes. No focal or lateralizing signs. Cranial nerves II through XII grossly intact. SKIN: Mottling lower extremities ASSESSMENT: 1. Perforated colorectal anastomosis due to colorectal stenosis 2. Bowel ischemia 3. Fecal impaction 4. Chronic constipation 5. History of colostomy reversal 6. Gastroesophageal reflux disease 7. Hypothyroidism 8. Chronic obstructive pulmonary disease 9. History of pulmonary embolism 10. Tobacco abuse disorder 11. 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 Fecal peritonitis 15. Pelvic abscess 16. Sepsis with septic shock 17. Adhesive band 18. Leukocytosis PLAN: -Continue ICU management -Vent weaning management per critical care service -Continue supportive care -Continue antibiotics -DVT prophylaxis subcu heparin Physician Etiquette Teacher note has been reviewed by physician. Signing provider agrees with the documented findings, assessment, and plan of care. Objective - Vital Signs Vital signs: Vital Signs Temp 98.7 F 06/02/23 04:00 Pulse 90 06/02/23 09:02 Resp 20 06/02/23 08:00 BP 106/61 06/02/23 06:00 Pulse Ox 100 06/02/23 08:00 FiO2 35 06/02/23 07:36 Intake & Output 06/01/23 06/02/23 06/02/23 18:59 06:59 18:59 Intake Total 2412.408 2288.640 425.424 Output Total 1035 579 125 Balance 4871.106 5021.640 300.424 Weight 82.8 kg 76.5 kg Intake: IV 2136 1651 282 0.9 NS KVO 120 110 20 ARTERIAL LINE & CVP 66 66 12 Ampicillin-Sulbactam 3 gm 100 In Sodium Chloride 0.9% 100 ml @ 200 mls/hr IVPB Q12HR [facility] Rx#:[id number] Ampicillin-Sulbactam 3 gm 100 In Sodium Chloride 0.9% 100 ml @ 200 mls/hr IVPB Q12HR@1000,2200 [facility] Rx#: [id number] Calcium Gluconate in NaCl 100 2 gm In Saline 1 100ml. bag @ 100 mls/hr IVPB ONCE ONE Rx#:[id number] DAPTOmycin 350 mg In 50 Sodium Chloride 0.9% 50 ml @ 100 mls/hr IVPB Q24HR [facility] Rx#:[id number] Sodium Chloride 0.9% 1, 1500 1375 250 000 ml @ 125 mls/hr IV . Q8H [facility] Rx#:[id number] metroNIDAZOLE-NS PMX 500 200 mg In Saline 1 100ml.bag @ 100 mls/hr IVPB Q6H [facility] Rx#:[id number] Intake, IV Titration 76.408 237.640 53.424 Amount Norepinephrine 32 mg In 29.335 32.760 9.069 Sodium Chloride 0.9% 218 ml @ 0.03 MCG/KG/MIN 0. 778 mls/hr IV .Q24H [facility] Rx#:[id number] Vasopressin 60 unit In 153 Sodium Chloride 0.9% 150 ml @ 0.03 UNITS/MIN 4.59 mls/hr IV .Q24H [facility] Rx#: [id number] propofoL 1,000 mg In 47.073 51.880 44.355 Empty Bag 1 bag @ 15 MCG/ KG/MIN 4.98 mls/hr IV . Q20H5M [facility] Rx#:[id number] Tube Feeding 170 280 60 Other 30 120 30 Output: Drainage 80 65 Left Lower Abdomen 80 65 Urine 805 514 125 Stool 150 Other: Voiding Method Indwelling Catheter Indwelling Catheter ABP, PAP, CO, CI - Last Documented Arterial Blood Pressure 110/62 - Labs CBC & Chem 7: 06/02/23 04:38 06/02/23 04:38 Labs: Abnormal Lab Results - Last 24 Hours (Table) 06/01/23 06/01/23 06/01/23 Range/Units 10:36 12:56 17:39 WBC (3.8-10.6) k/uL RBC (3.80-5.40) m/uL Hgb (11.4-16.0) gm/dL Hct (34.0-46.0) % RDW (11.5-15.5) % Plt Count (150-450) k/uL Neutrophils # (1.3-7.7) k/uL Lymphocytes # (1.0-4.8) k/uL ABG pH (7.35-7.45) ABG pO2 (83-108) mmHg ABG HCO3 (21-25) mmol/L ABG O2 Saturation (94-97) % Potassium (3.5-5.1) mmol/L Chloride (98-107) mmol/L Carbon Dioxide (22-30) mmol/L BUN (7-17) mg/dL Creatinine (0.52-1.04) mg/dL Glucose (74-99) mg/dL POC Glucose (mg/dL) 138 H 127 H (70-110) mg/dL Calcium (8.4-10.2) mg/dL Phosphorus 4.9 H (2.5-4.5) mg/dL Creatine Kinase (30-135) U/L Vitamin D 25-Hydroxy <5.0 L (30.0-100.0) ng/mL 06/01/23 06/02/23 06/02/23 Range/Units 23:38 02:57 04:38 WBC (3.8-10.6) k/uL RBC (3.80-5.40) m/uL Hgb (11.4-16.0) gm/dL Hct (34.0-46.0) % RDW (11.5-15.5) % Plt Count (150-450) k/uL Neutrophils # (1.3-7.7) k/uL Lymphocytes # (1.0-4.8) k/uL ABG pH (7.35-7.45) ABG pO2 (83-108) mmHg ABG HCO3 (21-25) mmol/L ABG O2 Saturation (94-97) % Potassium 3.4 L (3.5-5.1) mmol/L Chloride 111 H (98-107) mmol/L Carbon Dioxide 18 L (22-30) mmol/L BUN 46 H (7-17) mg/dL Creatinine 2.29 H (0.52-1.04) mg/dL Glucose 118 H (74-99) mg/dL POC Glucose (mg/dL) 126 H 116 H (70-110) mg/dL Calcium 5.8 L* (8.4-10.2) mg/dL Phosphorus (2.5-4.5) mg/dL Creatine Kinase 19824 H* (30-135) U/L Vitamin D 25-Hydroxy (30.0-100.0) ng/mL 06/02/23 06/02/23 06/02/23 Range/Units 04:38 04:38 04:45 WBC 19.2 H (3.8-10.6) k/uL RBC 3.19 L (3.80-5.40) m/uL Hgb 9.3 L (11.4-16.0) gm/dL Hct 29.1 L (34.0-46.0) % RDW 16.9 H (11.5-15.5) % Plt Count 47 L (150-450) k/uL Neutrophils # 18.2 H (1.3-7.7) k/uL Lymphocytes # 0.4 L (1.0-4.8) k/uL ABG pH 7.32 L (7.35-7.45) ABG pO2 148 H (83-108) mmHg ABG HCO3 20 L (21-25) mmol/L ABG O2 Saturation 98.5 H (94-97) % Potassium (3.5-5.1) mmol/L Chloride (98-107) mmol/L Carbon Dioxide (22-30) mmol/L BUN (7-17) mg/dL Creatinine (0.52-1.04) mg/dL Glucose (74-99) mg/dL POC Glucose (mg/dL) (70-110) mg/dL Calcium (8.4-10.2) mg/dL Phosphorus 5.0 H (2.5-4.5) mg/dL Creatine Kinase (30-135) U/L Vitamin D 25-Hydroxy (30.0-100.0) ng/mL 06/02/23 Range/Units 05:53 WBC (3.8-10.6) k/uL RBC (3.80-5.40) m/uL Hgb (11.4-16.0) gm/dL Hct (34.0-46.0) % RDW (11.5-15.5) % Plt Count (150-450) k/uL Neutrophils # (1.3-7.7) k/uL Lymphocytes # (1.0-4.8) k/uL ABG pH (7.35-7.45) ABG pO2 (83-108) mmHg ABG HCO3 (21-25) mmol/L ABG O2 Saturation (94-97) % Potassium (3.5-5.1) mmol/L Chloride (98-107) mmol/L Carbon Dioxide (22-30) mmol/L BUN (7-17) mg/dL Creatinine (0.52-1.04) mg/dL Glucose (74-99) mg/dL POC Glucose (mg/dL) 127 H (70-110) mg/dL Calcium (8.4-10.2) mg/dL Phosphorus (2.5-4.5) mg/dL Creatine Kinase (30-135) U/L Vitamin D 25-Hydroxy (30.0-100.0) ng/mL Microbiology - Last 24 Hours (Table) 05/31/23 14:31 Blood Culture - Preliminary Blood 05/31/23 11:41 Blood Culture - Preliminary Blood 05/27/23 14:52 Anaerobic Culture - Final Peritoneal Fluid Clostridium perfringens Anaerobic Gm Negative Bacilli Anaerobic Gm Negative Bacilli#2 Anaerobic Gm Negative Bacilli#3
[2023-06-02 11:28] LABS: Glucose,Whole Blood 124 mg/dL (70-110)
--- NOTE | 2023-06-02 11:35 | P.PN ---
Subjective patient is seen for follow-up for acute kidney injury. Patient remains on the vent Urine output slightly increased with Lasix. Currently at about 60-65 mL per hour FiO2 at 35%. Sedation is been decreased, patient [place] [address] today. Objective - Vital Signs Vital signs: Vital Signs Temp 98.7 F 06/02/23 04:00 Pulse 90 06/02/23 09:02 Resp 20 06/02/23 08:00 BP 106/61 06/02/23 06:00 Pulse Ox 100 06/02/23 08:00 FiO2 35 06/02/23 11:06 Intake & Output 06/01/23 06/02/23 06/02/23 18:59 06:59 18:59 Intake Total 2412.408 2288.640 429.740 Output Total 1035 579 125 Balance 7484.341 7829.640 304.740 Weight 82.8 kg 76.5 kg Intake: IV 2136 1651 282 0.9 NS KVO 120 110 20 ARTERIAL LINE & CVP 66 66 12 Ampicillin-Sulbactam 3 gm 100 In Sodium Chloride 0.9% 100 ml @ 200 mls/hr IVPB Q12HR [facility] Rx#:[id number] Ampicillin-Sulbactam 3 gm 100 In Sodium Chloride 0.9% 100 ml @ 200 mls/hr IVPB Q12HR@1000,2200 [facility] Rx#: [id number] Calcium Gluconate in NaCl 100 2 gm In Saline 1 100ml. bag @ 100 mls/hr IVPB ONCE ONE Rx#:[id number] DAPTOmycin 350 mg In 50 Sodium Chloride 0.9% 50 ml @ 100 mls/hr IVPB Q24HR [facility] Rx#:[id number] Sodium Chloride 0.9% 1, 1500 1375 250 000 ml @ 125 mls/hr IV . Q8H [facility] Rx#:[id number] metroNIDAZOLE-NS PMX 500 200 mg In Saline 1 100ml.bag @ 100 mls/hr IVPB Q6H [facility] Rx#:[id number] Intake, IV Titration 76.408 237.640 57.740 Amount Norepinephrine 32 mg In 29.335 32.760 9.069 Sodium Chloride 0.9% 218 ml @ 0.03 MCG/KG/MIN 0. 778 mls/hr IV .Q24H [facility] Rx#:[id number] Vasopressin 60 unit In 153 Sodium Chloride 0.9% 150 ml @ 0.03 UNITS/MIN 4.59 mls/hr IV .Q24H [facility] Rx#: [id number] propofoL 1,000 mg In 47.073 51.880 48.671 Empty Bag 1 bag @ 15 MCG/ KG/MIN 4.98 mls/hr IV . Q20H5M [facility] Rx#:[id number] Tube Feeding 170 280 60 Other 30 120 30 Output: Drainage 80 65 Left Lower Abdomen 80 65 Urine 805 514 125 Stool 150 Other: Voiding Method Indwelling Catheter Indwelling Catheter ABP, PAP, CO, CI - Last Documented Arterial Blood Pressure 110/62 - Exam Patient is sedated and on the vent. Trying to wake up as sedation is being decreased. Examination of the heart S1 and S2 Examination of the lungs bilateral breath sounds are heard Abdomen is soft nontender Examination of lower extremities shows significant mottling bilaterally. Edema noted in upper extremities. - Labs CBC & Chem 7: 06/02/23 04:38 06/02/23 04:38 Labs: Abnormal Lab Results - Last 24 Hours (Table) 06/01/23 06/01/23 06/01/23 Range/Units 10:36 12:56 17:39 WBC (3.8-10.6) k/uL RBC (3.80-5.40) m/uL Hgb (11.4-16.0) gm/dL Hct (34.0-46.0) % RDW (11.5-15.5) % Plt Count (150-450) k/uL Neutrophils # (1.3-7.7) k/uL Lymphocytes # (1.0-4.8) k/uL ABG pH (7.35-7.45) ABG pO2 (83-108) mmHg ABG HCO3 (21-25) mmol/L ABG O2 Saturation (94-97) % Potassium (3.5-5.1) mmol/L Chloride (98-107) mmol/L Carbon Dioxide (22-30) mmol/L BUN (7-17) mg/dL Creatinine (0.52-1.04) mg/dL Glucose (74-99) mg/dL POC Glucose (mg/dL) 138 H 127 H (70-110) mg/dL Calcium (8.4-10.2) mg/dL Phosphorus (2.5-4.5) mg/dL Creatine Kinase (30-135) U/L Vitamin D 25-Hydroxy <5.0 L (30.0-100.0) ng/mL 06/01/23 06/02/23 06/02/23 Range/Units 23:38 02:57 04:38 WBC (3.8-10.6) k/uL RBC (3.80-5.40) m/uL Hgb (11.4-16.0) gm/dL Hct (34.0-46.0) % RDW (11.5-15.5) % Plt Count (150-450) k/uL Neutrophils # (1.3-7.7) k/uL Lymphocytes # (1.0-4.8) k/uL ABG pH (7.35-7.45) ABG pO2 (83-108) mmHg ABG HCO3 (21-25) mmol/L ABG O2 Saturation (94-97) % Potassium 3.4 L (3.5-5.1) mmol/L Chloride 111 H (98-107) mmol/L Carbon Dioxide 18 L (22-30) mmol/L BUN 46 H (7-17) mg/dL Creatinine 2.29 H (0.52-1.04) mg/dL Glucose 118 H (74-99) mg/dL POC Glucose (mg/dL) 126 H 116 H (70-110) mg/dL Calcium 5.8 L* (8.4-10.2) mg/dL Phosphorus (2.5-4.5) mg/dL Creatine Kinase 61297 H* (30-135) U/L Vitamin D 25-Hydroxy (30.0-100.0) ng/mL 06/02/23 06/02/23 06/02/23 Range/Units 04:38 04:38 04:45 WBC 19.2 H (3.8-10.6) k/uL RBC 3.19 L (3.80-5.40) m/uL Hgb 9.3 L (11.4-16.0) gm/dL Hct 29.1 L (34.0-46.0) % RDW 16.9 H (11.5-15.5) % Plt Count 47 L (150-450) k/uL Neutrophils # 18.2 H (1.3-7.7) k/uL Lymphocytes # 0.4 L (1.0-4.8) k/uL ABG pH 7.32 L (7.35-7.45) ABG pO2 148 H (83-108) mmHg ABG HCO3 20 L (21-25) mmol/L ABG O2 Saturation 98.5 H (94-97) % Potassium (3.5-5.1) mmol/L Chloride (98-107) mmol/L Carbon Dioxide (22-30) mmol/L BUN (7-17) mg/dL Creatinine (0.52-1.04) mg/dL Glucose (74-99) mg/dL POC Glucose (mg/dL) (70-110) mg/dL Calcium (8.4-10.2) mg/dL Phosphorus 5.0 H (2.5-4.5) mg/dL Creatine Kinase (30-135) U/L Vitamin D 25-Hydroxy (30.0-100.0) ng/mL 06/02/23 06/02/23 Range/Units 05:53 11:27 WBC (3.8-10.6) k/uL RBC (3.80-5.40) m/uL Hgb (11.4-16.0) gm/dL Hct (34.0-46.0) % RDW (11.5-15.5) % Plt Count (150-450) k/uL Neutrophils # (1.3-7.7) k/uL Lymphocytes # (1.0-4.8) k/uL ABG pH (7.35-7.45) ABG pO2 (83-108) mmHg ABG HCO3 (21-25) mmol/L ABG O2 Saturation (94-97) % Potassium (3.5-5.1) mmol/L Chloride (98-107) mmol/L Carbon Dioxide (22-30) mmol/L BUN (7-17) mg/dL Creatinine (0.52-1.04) mg/dL Glucose (74-99) mg/dL POC Glucose (mg/dL) 127 H 124 H (70-110) mg/dL Calcium (8.4-10.2) mg/dL Phosphorus (2.5-4.5) mg/dL Creatine Kinase (30-135) U/L Vitamin D 25-Hydroxy (30.0-100.0) ng/mL Microbiology - Last 24 Hours (Table) 05/31/23 14:31 Blood Culture - Preliminary Blood 05/31/23 11:41 Blood Culture - Preliminary Blood 05/27/23 14:52 Anaerobic Culture - Final Peritoneal Fluid Clostridium perfringens Anaerobic Gm Negative Bacilli Anaerobic Gm Negative Bacilli#2 Anaerobic Gm Negative Bacilli#3 Assessment and Plan Assessment: 1. Nonoliguric ATN, ischemic and toxic.underlying rhabdo my lysis. UA shows trace protein. Baseline creatinine around 0.8 mg/dL. 2. Septic shock secondary to perforated bowel 3. Anion gap metabolic acidosis secondary to acute kidney injury 4. Hypomagnesemia status post replacement 5. Acute hypoxic respiratory failure currently on the vent 6. Rhabdo myolysis, patient is not on statins. No large bruises noted. Mottling noted in the lower extremities. Plan: Continue IV Lasix continue with pressors Continue with antibiotics.
--- NOTE | 2023-06-02 11:47 | P.PN ---
Subjective Progress Note Date: 06/02/23 Principal diagnosis: Septic shock secondary to acute pneumoperitoneum and abdominal sepsis This is a 63-year-old female patient is currently being seen in the intensive care unit following abdominal surgery. The patient presented to the hospital because of abdominal pain and surgical consultation was obtained as the patient was found to have pneumoperitoneum. The patient had a CAT scan of the abdomen and pelvis that was done 05/26/2023 and the patient was found to have large pneumoperitoneum, large fecal bolus in the rectum. Fecal material was also seen in the sigmoid colon. There was evidence of cholelithiasis and ascites. Based on those findings, the patient was taken to the operating room today and the patient was given an LAD, subtotal colectomy, partial proctectomy and and ileostomy and open fecal decompression drainage of fecal peritonitis and left also also oophprectomy and salpingectomy. Postop, the patient was brought into the intensive care unit. She has already received a total of 5 L of IV fluids. Most recent BP is 81/50. The patient is also on pressors and norepinephrine is running at 0.25 mcg/kg/m. The patient has improved in her urine output which is producing approximately 40 mL an hour. She is fully sedated on propofol which is running at 50 mcg/kg/m. She is, comfortable and symptoms of the mechanical ventilator. I reviewed the initial blood gas that showed a pH of 7.12 with a pCO2 of 48 and a pO2 of more than 400. Subsequently, the patient was placed on assist-control mode at the rate of 26, tidal volume of 400 and FiO2 has been weaned down to 40% and she is currently on a PEEP of 5. The chest x-ray that was done following her abdominal surgery showed adequate positioning of 82. There is no evidence of any acute abnormalities. She has a left IJ triple-lumen catheter in place. The patient had evidence of renal failure, likely acute due to BUN of 47 and a creatinine of 1.78. She also has a mild anion gap metabolic acidosis. The lactic acid level was 2.7. Calcium level was low at 6.3. Serum albumin was 2.6 with a total protein of 4.8. The white cell cause of 3.2 with a hemoglobin of 11.4. She has a NG tube in place. Output from the NG is minimal are brown. Her white suppositive 3.2 with a hemoglobin of 11.4. She is currently covered with IV Zosyn and Flagyl. She was ordered started on a bicarb infusion. Note that the patient has had multiple abdominal surgeries in the past. She has undergone a previous right and left colectomy with end colostomy in September 2022 and subsequent reversal of the colostomy. She has COPD, hypothyroidism and she is a chronic smoker. The patient has had previous episodes of small bowel obstruction and large bowel obstruction. She suffers from chronic constipation. She is status post colectomy and colostomy for chronic thickened impaction approximately 9 months ago. She underwent subsequent reversal approximately 4 months ago but colostomy. On 05/30/2023, the patient is being seen for a follow-up. She remains critically ill following abdominal surgery and the patient continues to be septic although her condition is somewhat improved compared to yesterday. The skin mottling over the abdomen and lower extremity is improved and the patient continues to have absent pulses on the popliteal in her lower extremities bilaterally. She is more warm lower extremities and the cold and clamminess has essentially recovered. Meanwhile, she was seen by vascular surgery and no intervention has been recommended. She continues to be septic features re quiring pressors although the pressor requirements have improved compared to yesterday. She is on norepinephrine running at 0.1 microvascular kilogram per minute and she is also on vasopressin physiologic dose. She remains on a mechanical ventilator. Propofol is running at a dose of 20 mcg/kg/m. She is on assist-control mode of mechanical ventilation, rate of 20, tidal volume of 400, FiO2 of 40% with a PEEP of 5. Blood gas from today shows a pH of 7.44 with a pCO2 of 41 and pO2 of 150. Chest x-ray shows stable findings. Orotracheal tube is in a good location. NG tube is in a good location. She did have some left basilar atelectasis. Meanwhile, the NG tube is in place, output is in order of minimal.The ostomy is functional and there is some liquidy material collecting an ileostomy bag. PABLO drain output is minimal and it is serosanguineous. Abdominal wound looks dry clean and intact. The patient is arousable. She grimaces to painful stimulation. She remains on the sedation. The creatinine is up to 1.89 as the patient suffered an acute kidney injury. BUN is 43, sodium is 138 and the potassium levels at 3.8. The patient has a white cell count of 9.2 with a hemoglobin of 9.7. She remains nothing by mouth for the time being. Platelet count has been dropping and is currently down to 59. Heparin was discontinued yesterday. She remains on a combination of Zosyn and Flagyl. Cultures expected leak going gram-negative bacillus from the abdomen in the blood culture was also positive for E. coli and this E. coli is quinolone resistant. The patient is postop day #4 for the time being. Reevaluated today on 05/31/2023, patient remains in the ICU, intubated and mecha nically ventilated. She is on assist control rate of 2009 volume 400 FiO2 40% and PEEP of 5, ABG showed a pO2 of 148 pCO2 43 pH of 7.34 hence FiO2 was cut down to 35%. Patient is obviously quite ill, she remains very mottled with poor pulses in lower extremities remains on multiple pressors relatively high-dose including vasopressin at 0.03, norepinephrine at 0.14 mcg/kg/m upper followed at 15 mcg/kg/m. Her previous blood cultures have showed E. coli her urine output is 10-15 mL per hour. However went up as the norepinephrine was increased. Her mean arterial pressure is ranging between 60 up to 68. Remains on Flagyl and Zosyn continues to have colostomy in place, 55 mL output from the colostomy overnight. CODE STATUS has been changed to DO NOT RESUSCITATE patient remains on vital HPI 10 mL per hour. Chest x-ray continues to show left lower lobe consolidation. Overall the patient is doing poorly and she is quite ill. WBC count is 16.7 hemoglobin is 9.9, basic metabolic profile is normal bicarb is 22 BUN is 46 creatinine 2.24. Remains on Zosyn empirically she is also on Flagyl repeat blood cultures were requested today. Her last blood cultures were positive for E. coli Patient was reevaluated today on 06/01/2023, patient remains in the ICU, intubated and mechanically ventilated still on assist control rate of 2009 volume 400 FiO2 35% and PEEP of 5. Remains on norepinephrine at 0.12 mcg/kg/m also on vasopressin at 0.03 units per hour patient is on IV fluid at 1 35 mL per hour receiving vital HPI 10 mL per hour remains on Unasyn, she is also on daptomycin and Flagyl. Patient was given a trial off sedation yesterday and she was following simple instructions but she was generally weak. Blood pressure seems to be better today, nonetheless requiring norepinephrine and vasopressin. Continues to have wound VAC in place continues to have ostomy in place seems to be functional with some serous drainage in the ostomy tube. PABLO drain is draining some serous drainage also. CPKs seems to be quite high, and the patient remains mottled. ABG today showed a pO2 of 136 pCO2 39 pH of 7.31. WBC count is 19.3 hemoglobin 9.5 electrolytes are normal, BUN is 46 creatinine 2.34, slightly worse compared to creatinine yesterday of 2.4. CPK is 15,962 slightly higher compared to yesterday Patient was reevaluated today on 06/02/2023 remains in the ICU, intubated and mec hanically ventilated. Patient tolerated about 2 hours yesterday of pressure support and CPAP 09/07. May try to give her another trial today. In the meantime remains on mechanical ventilation with a rate of 20 that is an assist- control rate, volume 400 FiO2 35% PEEP of 5. ABG showed a pO2 of 148 pCO2 40 pH of 7.32 remains on norepinephrine at 0.04 mcg/kg/m vasopressin at 0.3 units per hour propofol at 20 mcg/kg/m and IV fluid at 1 25 mL per hour however considering the patient is in significant fluid balance, I will cut down the fluids to KVO and I will give the patient Lasix 20 mg IV push 1 today. Patient remains on enteral feeding, at 50 mL per hour vital AF. Chest x-ray continues to stable findings of bilateral lower lobe infiltrates and small effusion with mild vascular venous congestion WBC count today is 19.2 with a low hemoglobin 9.3 electrolytes are normal except for low potassium of 3.4, BUN is 46 creatinine 2.29, improving compared to yesterday at 2.34 Objective - Vital Signs Vital signs: Vital Signs Temp 98.7 F 06/02/23 04:00 Pulse 90 06/02/23 09:02 Resp 20 06/02/23 08:00 BP 106/61 06/02/23 06:00 Pulse Ox 100 06/02/23 08:00 FiO2 35 06/02/23 11:06 Intake & Output 06/01/23 06/02/23 06/02/23 18:59 06:59 18:59 Intake Total 2412.408 2288.640 429.740 Output Total 1035 579 125 Balance 1686.586 4577.640 304.740 Weight 82.8 kg 76.5 kg Intake: IV 2136 1651 282 0.9 NS KVO 120 110 20 ARTERIAL LINE & CVP 66 66 12 Ampicillin-Sulbactam 3 gm 100 In Sodium Chloride 0.9% 100 ml @ 200 mls/hr IVPB Q12HR [facility] Rx#:[id number] Ampicillin-Sulbactam 3 gm 100 In Sodium Chloride 0.9% 100 ml @ 200 mls/hr IVPB Q12HR@1000,2200 [facility] Rx#: [id number] Calcium Gluconate in NaCl 100 2 gm In Saline 1 100ml. bag @ 100 mls/hr IVPB ONCE ONE Rx#:[id number] DAPTOmycin 350 mg In 50 Sodium Chloride 0.9% 50 ml @ 100 mls/hr IVPB Q24HR [facility] Rx#:[id number] Sodium Chloride 0.9% 1, 1500 1375 250 000 ml @ 125 mls/hr IV . Q8H [facility] Rx#:[id number] metroNIDAZOLE-NS PMX 500 200 mg In Saline 1 100ml.bag @ 100 mls/hr IVPB Q6H [facility] Rx#:[id number] Intake, IV Titration 76.408 237.640 57.740 Amount Norepinephrine 32 mg In 29.335 32.760 9.069 Sodium Chloride 0.9% 218 ml @ 0.03 MCG/KG/MIN 0. 778 mls/hr IV .Q24H [facility] Rx#:[id number] Vasopressin 60 unit In 153 Sodium Chloride 0.9% 150 ml @ 0.03 UNITS/MIN 4.59 mls/hr IV .Q24H [facility] Rx#: [id number] propofoL 1,000 mg In 47.073 51.880 48.671 Empty Bag 1 bag @ 15 MCG/ KG/MIN 4.98 mls/hr IV . Q20H5M [facility] Rx#:[id number] Tube Feeding 170 280 60 Other 30 120 30 Output: Drainage 80 65 Left Lower Abdomen 80 65 Urine 805 514 125 Stool 150 Other: Voiding Method Indwelling Catheter Indwelling Catheter ABP, PAP, CO, CI - Last Documented Arterial Blood Pressure 110/62 - Exam Physical Exam: Revealed 63-year-old female, intubated mechanically ventilated, orogastric tube and endotracheal tube are intact. Head: Atraumatic, normocephalic. HEENT:[Neck is supple.] [No neck masses.] [No thyromegaly.] [No JVD.] Chest: [Minimal crackles at the bases symmetrical chest expansion bilaterally. Cardiac Exam: [Normal S1 and S2, no S3 gallop, no murmur.] Abdomen: [Postsurgical, soft, nontender, diminished bowel sounds. Wound VAC noted PABLO drain noted ostomy seems to be functional. Extremities: Continues to have mottling of lower extremities, abdominal area, and diminished distal pulses Neurological Exam: Opens eyes, seems to be very weak, does not follow simple instructions Psychiatric: Could not assess. Skin: Mottling of the skin is noted especially in lower extremities and in the abdominal area - Labs CBC & Chem 7: 06/02/23 04:38 06/02/23 04:38 Labs: Abnormal Lab Results - Last 24 Hours (Table) 06/01/23 06/01/23 06/01/23 Range/Units 10:36 12:56 17:39 WBC (3.8-10.6) k/uL RBC (3.80-5.40) m/uL Hgb (11.4-16.0) gm/dL Hct (34.0-46.0) % RDW (11.5-15.5) % Plt Count (150-450) k/uL Neutrophils # (1.3-7.7) k/uL Lymphocytes # (1.0-4.8) k/uL ABG pH (7.35-7.45) ABG pO2 (83-108) mmHg ABG HCO3 (21-25) mmol/L ABG O2 Saturation (94-97) % Potassium (3.5-5.1) mmol/L Chloride (98-107) mmol/L Carbon Dioxide (22-30) mmol/L BUN (7-17) mg/dL Creatinine (0.52-1.04) mg/dL Glucose (74-99) mg/dL POC Glucose (mg/dL) 138 H 127 H (70-110) mg/dL Calcium (8.4-10.2) mg/dL Phosphorus (2.5-4.5) mg/dL Creatine Kinase (30-135) U/L Vitamin D 25-Hydroxy <5.0 L (30.0-100.0) ng/mL 06/01/23 06/02/23 06/02/23 Range/Units 23:38 02:57 04:38 WBC (3.8-10.6) k/uL RBC (3.80-5.40) m/uL Hgb (11.4-16.0) gm/dL Hct (34.0-46.0) % RDW (11.5-15.5) % Plt Count (150-450) k/uL Neutrophils # (1.3-7.7) k/uL Lymphocytes # (1.0-4.8) k/uL ABG pH (7.35-7.45) ABG pO2 (83-108) mmHg ABG HCO3 (21-25) mmol/L ABG O2 Saturation (94-97) % Potassium 3.4 L (3.5-5.1) mmol/L Chloride 111 H (98-107) mmol/L Carbon Dioxide 18 L (22-30) mmol/L BUN 46 H (7-17) mg/dL Creatinine 2.29 H (0.52-1.04) mg/dL Glucose 118 H (74-99) mg/dL POC Glucose (mg/dL) 126 H 116 H (70-110) mg/dL Calcium 5.8 L* (8.4-10.2) mg/dL Phosphorus (2.5-4.5) mg/dL Creatine Kinase 26595 H* (30-135) U/L Vitamin D 25-Hydroxy (30.0-100.0) ng/mL 06/02/23 06/02/23 06/02/23 Range/Units 04:38 04:38 04:45 WBC 19.2 H (3.8-10.6) k/uL RBC 3.19 L (3.80-5.40) m/uL Hgb 9.3 L (11.4-16.0) gm/dL Hct 29.1 L (34.0-46.0) % RDW 16.9 H (11.5-15.5) % Plt Count 47 L (150-450) k/uL Neutrophils # 18.2 H (1.3-7.7) k/uL Lymphocytes # 0.4 L (1.0-4.8) k/uL ABG pH 7.32 L (7.35-7.45) ABG pO2 148 H (83-108) mmHg ABG HCO3 20 L (21-25) mmol/L ABG O2 Saturation 98.5 H (94-97) % Potassium (3.5-5.1) mmol/L Chloride (98-107) mmol/L Carbon Dioxide (22-30) mmol/L BUN (7-17) mg/dL Creatinine (0.52-1.04) mg/dL Glucose (74-99) mg/dL POC Glucose (mg/dL) (70-110) mg/dL Calcium (8.4-10.2) mg/dL Phosphorus 5.0 H (2.5-4.5) mg/dL Creatine Kinase (30-135) U/L Vitamin D 25-Hydroxy (30.0-100.0) ng/mL 06/02/23 06/02/23 Range/Units 05:53 11:27 WBC (3.8-10.6) k/uL RBC (3.80-5.40) m/uL Hgb (11.4-16.0) gm/dL Hct (34.0-46.0) % RDW (11.5-15.5) % Plt Count (150-450) k/uL Neutrophils # (1.3-7.7) k/uL Lymphocytes # (1.0-4.8) k/uL ABG pH (7.35-7.45) ABG pO2 (83-108) mmHg ABG HCO3 (21-25) mmol/L ABG O2 Saturation (94-97) % Potassium (3.5-5.1) mmol/L Chloride (98-107) mmol/L Carbon Dioxide (22-30) mmol/L BUN (7-17) mg/dL Creatinine (0.52-1.04) mg/dL Glucose (74-99) mg/dL POC Glucose (mg/dL) 127 H 124 H (70-110) mg/dL Calcium (8.4-10.2) mg/dL Phosphorus (2.5-4.5) mg/dL Creatine Kinase (30-135) U/L Vitamin D 25-Hydroxy (30.0-100.0) ng/mL Microbiology - Last 24 Hours (Table) 05/31/23 14:31 Blood Culture - Preliminary Blood 05/31/23 11:41 Blood Culture - Preliminary Blood 05/27/23 14:52 Anaerobic Culture - Final Peritoneal Fluid Clostridium perfringens Anaerobic Gm Negative Bacilli Anaerobic Gm Negative Bacilli#2 Anaerobic Gm Negative Bacilli#3 Assessment and Plan Assessment: Impression: Septic shock secondary to acute pneumoperitoneum and abdominal sepsis Acute fecal peritonitis Chronic constipation with previous right and left colectomy and colostomy with subsequent reversal Acute kidney injury secondary to above Acute rhabdomyolysis History of underlying COPD Acute hypoxic and hypercapnic respiratory failure secondary to above History of appendiceal carcinoma Remote history of pulmonary embolism, not anticoagulated History of cervical C3 stenosis Degenerative joint disease Chronic medical debility, [facility] resident Acute thrombocytopenia secondary to sepsis Severe protein calorie malnutrition with hypoproteinemia and hypoalbuminemia Recommendation: Continue ventilatory support, we'll try again another trial of pressure support of 12 and CPAP today. Patient will be given a short trial if tolerated. She is actually not quite ready for weaning. Continue daily sedation interruption and sedation holidays. Continue norepinephrine that dose has been cut down significantly and continue vasopressin titrate accordingly Continue nutritional support, patient is on vital HP Cut down her IV fluid to KVO and gentle diuresis Continue pressors and titrate accordingly Continue GI and DVT prophylaxis/Protonix and subcu heparin Continue bronchodilators Continue antibiotics and/Zosyn and Flagyl, and daptomycin Repeat blood cultures from 05/31 remain negative so far Remains critically ill Critical care time is over 30 minutes Time with Patient: Greater than 30
--- NOTE | 2023-06-02 12:12 | P.PN ---
Subjective Progress Note Date: 06/02/23 Principal diagnosis: Sepsis and intra-abdominal abscess Patient is a 63-year-old female with a past medical history significant for COPD PE osteoarthritis patient presented to the hospital 2 days ago for evaluation of abdominal pain, CT abdominal pelvis large pneumoperitoneum with large fecal bolus of the rectum ,patient is status post subtotal colectomy and partial proctectomy. On today's evaluation that is 06/02/2023, the patient remains to be afebrile, the patient is requiring less pressure support comparing to yesterday per the nursing staff, patient remains to be intubated on the vent and FiO2 is stable at 35%, no significant purulent secretion through the ET , patient is tolerating her to feet and did have output in her colostomy bag patient did have a hemoglobin of 9.3, white count is about the same 19.2 today, creatinine is 2.29 Objective - Vital Signs Vital signs: Vital Signs Temp 98.7 F 06/02/23 04:00 Pulse 90 06/02/23 09:02 Resp 20 06/02/23 08:00 BP 106/61 06/02/23 06:00 Pulse Ox 100 06/02/23 08:00 FiO2 35 06/02/23 07:36 Intake & Output 06/01/23 06/02/23 06/02/23 18:59 06:59 18:59 Intake Total 2412.408 2288.640 406.388 Output Total 1035 579 125 Balance 8444.018 3252.640 281.388 Weight 82.8 kg 76.5 kg Intake: IV 2136 1651 282 0.9 NS KVO 120 110 20 ARTERIAL LINE & CVP 66 66 12 Ampicillin-Sulbactam 3 gm 100 In Sodium Chloride 0.9% 100 ml @ 200 mls/hr IVPB Q12HR [facility] Rx#:[id number] Ampicillin-Sulbactam 3 gm 100 In Sodium Chloride 0.9% 100 ml @ 200 mls/hr IVPB Q12HR@1000,2200 [facility] Rx#: [id number] Calcium Gluconate in NaCl 100 2 gm In Saline 1 100ml. bag @ 100 mls/hr IVPB ONCE ONE Rx#:[id number] DAPTOmycin 350 mg In 50 Sodium Chloride 0.9% 50 ml @ 100 mls/hr IVPB Q24HR [facility] Rx#:[id number] Sodium Chloride 0.9% 1, 1500 1375 250 000 ml @ 125 mls/hr IV . Q8H [facility] Rx#:[id number] metroNIDAZOLE-NS PMX 500 200 mg In Saline 1 100ml.bag @ 100 mls/hr IVPB Q6H [facility] Rx#:[id number] Intake, IV Titration 76.408 237.640 34.388 Amount Norepinephrine 32 mg In 29.335 32.760 5.75 Sodium Chloride 0.9% 218 ml @ 0.03 MCG/KG/MIN 0. 778 mls/hr IV .Q24H [facility] Rx#:[id number] Vasopressin 60 unit In 153 Sodium Chloride 0.9% 150 ml @ 0.03 UNITS/MIN 4.59 mls/hr IV .Q24H [facility] Rx#: [id number] propofoL 1,000 mg In 47.073 51.880 28.638 Empty Bag 1 bag @ 15 MCG/ KG/MIN 4.98 mls/hr IV . Q20H5M [facility] Rx#:[id number] Tube Feeding 170 280 60 Other 30 120 30 Output: Drainage 80 65 Left Lower Abdomen 80 65 Urine 805 514 125 Stool 150 Other: Voiding Method Indwelling Catheter Indwelling Catheter ABP, PAP, CO, CI - Last Documented Arterial Blood Pressure 110/62 - Exam GENERAL DESCRIPTION: Middle-aged female intubated on the vent RESPIRATORY SYSTEM: Unlabored breathing , decreased breath sounds at bases HEART: S1 S2 regular rate and rhythm , ABDOMEN: Soft , no tenderness EXTREMITIES: No edema feet - Labs CBC & Chem 7: 06/02/23 04:38 06/02/23 04:38 Labs: Abnormal Lab Results - Last 24 Hours (Table) 06/01/23 06/01/23 06/01/23 Range/Units 10:36 12:56 17:39 WBC (3.8-10.6) k/uL RBC (3.80-5.40) m/uL Hgb (11.4-16.0) gm/dL Hct (34.0-46.0) % RDW (11.5-15.5) % Plt Count (150-450) k/uL Neutrophils # (1.3-7.7) k/uL Lymphocytes # (1.0-4.8) k/uL ABG pH (7.35-7.45) ABG pO2 (83-108) mmHg ABG HCO3 (21-25) mmol/L ABG O2 Saturation (94-97) % Potassium (3.5-5.1) mmol/L Chloride (98-107) mmol/L Carbon Dioxide (22-30) mmol/L BUN (7-17) mg/dL Creatinine (0.52-1.04) mg/dL Glucose (74-99) mg/dL POC Glucose (mg/dL) 138 H 127 H (70-110) mg/dL Calcium (8.4-10.2) mg/dL Phosphorus 4.9 H (2.5-4.5) mg/dL Creatine Kinase (30-135) U/L Vitamin D 25-Hydroxy <5.0 L (30.0-100.0) ng/mL 06/01/23 06/02/23 06/02/23 Range/Units 23:38 02:57 04:38 WBC (3.8-10.6) k/uL RBC (3.80-5.40) m/uL Hgb (11.4-16.0) gm/dL Hct (34.0-46.0) % RDW (11.5-15.5) % Plt Count (150-450) k/uL Neutrophils # (1.3-7.7) k/uL Lymphocytes # (1.0-4.8) k/uL ABG pH (7.35-7.45) ABG pO2 (83-108) mmHg ABG HCO3 (21-25) mmol/L ABG O2 Saturation (94-97) % Potassium 3.4 L (3.5-5.1) mmol/L Chloride 111 H (98-107) mmol/L Carbon Dioxide 18 L (22-30) mmol/L BUN 46 H (7-17) mg/dL Creatinine 2.29 H (0.52-1.04) mg/dL Glucose 118 H (74-99) mg/dL POC Glucose (mg/dL) 126 H 116 H (70-110) mg/dL Calcium 5.8 L* (8.4-10.2) mg/dL Phosphorus (2.5-4.5) mg/dL Creatine Kinase 12858 H* (30-135) U/L Vitamin D 25-Hydroxy (30.0-100.0) ng/mL 06/02/23 06/02/23 06/02/23 Range/Units 04:38 04:38 04:45 WBC 19.2 H (3.8-10.6) k/uL RBC 3.19 L (3.80-5.40) m/uL Hgb 9.3 L (11.4-16.0) gm/dL Hct 29.1 L (34.0-46.0) % RDW 16.9 H (11.5-15.5) % Plt Count 47 L (150-450) k/uL Neutrophils # 18.2 H (1.3-7.7) k/uL Lymphocytes # 0.4 L (1.0-4.8) k/uL ABG pH 7.32 L (7.35-7.45) ABG pO2 148 H (83-108) mmHg ABG HCO3 20 L (21-25) mmol/L ABG O2 Saturation 98.5 H (94-97) % Potassium (3.5-5.1) mmol/L Chloride (98-107) mmol/L Carbon Dioxide (22-30) mmol/L BUN (7-17) mg/dL Creatinine (0.52-1.04) mg/dL Glucose (74-99) mg/dL POC Glucose (mg/dL) (70-110) mg/dL Calcium (8.4-10.2) mg/dL Phosphorus 5.0 H (2.5-4.5) mg/dL Creatine Kinase (30-135) U/L Vitamin D 25-Hydroxy (30.0-100.0) ng/mL 06/02/23 Range/Units 05:53 WBC (3.8-10.6) k/uL RBC (3.80-5.40) m/uL Hgb (11.4-16.0) gm/dL Hct (34.0-46.0) % RDW (11.5-15.5) % Plt Count (150-450) k/uL Neutrophils # (1.3-7.7) k/uL Lymphocytes # (1.0-4.8) k/uL ABG pH (7.35-7.45) ABG pO2 (83-108) mmHg ABG HCO3 (21-25) mmol/L ABG O2 Saturation (94-97) % Potassium (3.5-5.1) mmol/L Chloride (98-107) mmol/L Carbon Dioxide (22-30) mmol/L BUN (7-17) mg/dL Creatinine (0.52-1.04) mg/dL Glucose (74-99) mg/dL POC Glucose (mg/dL) 127 H (70-110) mg/dL Calcium (8.4-10.2) mg/dL Phosphorus (2.5-4.5) mg/dL Creatine Kinase (30-135) U/L Vitamin D 25-Hydroxy (30.0-100.0) ng/mL Microbiology - Last 24 Hours (Table) 05/31/23 14:31 Blood Culture - Preliminary Blood 05/31/23 11:41 Blood Culture - Preliminary Blood 05/27/23 14:52 Anaerobic Culture - Final Peritoneal Fluid Clostridium perfringens Anaerobic Gm Negative Bacilli Anaerobic Gm Negative Bacilli#2 Anaerobic Gm Negative Bacilli#3 Assessment and Plan (1) Sepsis Current Visit: Yes Status: Acute Code(s): A41.9 - SEPSIS, UNSPECIFIED ORGANISM SNOMED Code(s): 86607824 (2) Peritonitis Current Visit: Yes Status: Acute Code(s): K65.9 - PERITONITIS, UNSPECIFIED SNOMED Code(s): 09615884 Plan: 1patient with a septic shock secondary to perforated colorectal anastomosis and bowel ischemia this patient evidence of marginal improvement status post extensive surgery we will need to cover for detailed gram-negative the likely pa thogen 2E. coli bacteremia source likely abdominal which is a sensitive pathogen, however abdominal culture also growing enterococcus that is resistant to ampicillin along with anaerobic gram-negative bacilli 3- patient to continue with Unasyn and daptomycin and monitor clinical course closely Dictation was produced using [employer] dictation software. please excuse any grammatical, word or spelling errors. Time with Patient: Less than 30
--- NOTE | 2023-06-02 15:42 | P.PN ---
Progress Note - Text Progress Note Date: 06/02/23 - Chief Complaint Acute abdomen - History of Present Illness This is a 63-year-old patient, who had severe ileus of right and left: And underwent right and left colectomy with end colostomy by Dr. Worthington on 09/21/2022. on January 29/2023 underwent exploratory laparotomy with takedown of colostomy and takedown of splenic flexure with partial colectomy and repair of incisional hernia and lysis of adhesions by Dr. Worthington. Following that pat jarednt had a three-week stay in the hospital for protracted ileus. And finally was discharged on February 25. Patient then presented to the ER on the evening of May 26. Patient presented here from [facility]. Per EMS report patient had a bowel movement for about 3 days. And increasing abdominal discomfort. Patient has remained nonambulatory. Computed tomography scan in the ER showed large pneumoperitoneum. Large fecal bolus of the rectum. Gallstones. Ascites. Patient seen by Dr. Parikh from general surgery.. Patient was taken to the OR for exploratory laboratory yesterday and had subtotal colectomy with partial proctectomy carried out. About 200 mL of pelvic abscess fecal peritonitis was drained. End ileostomy was carried out. Incisional wound VAC prerenal was placed. Left salpingo-oophorectomy was done. Patient continues clean ICU. On the ventilator intubated. FiO2 40 and a PEEP of 5. Drips include IV vasopressor, levo fed, propofol, bicarbonate. No output from the ileostomy bag. 05/29/2023: ICU. IV propofol. FiO2 50 PEEP of 5. Intubated. Remains on IV Zosyn, IV Flagyl. Extremity bilateral skin mottling. Extremities are cold. On IV vasopressin, IV norepinephrine. Sinus rhythm. No output in the ileostomy. Wound VAC in place. Serosanguineous output out of the PABLO drain. Family at bedside. 05/30/2023: ICU. Intubated. FiO2 40 to PEEP of 5. with the patient DO NOT RESUSCITATE yesterday. Drips include propofol, norepinephrine, vasopressin. 2 feeding started at 10 mL an hour. Putting out liquid stools over the ileostomy bag. No output from the PABLO drain. Patient seen by vascular Dr. Giliberto. Currently no further intervention. 05/31/1933: ICU. Intubated. FiO2 35 to PEEP of 5. Sinus rhythm. It's include norepinephrine, propofol, vasopressin. NG tube. 2 feeding at 10 mL an hour. That has been output from the ileostomy bag. Repeat blood cultures ordered. June 01: ICU. Intubated. FiO2 35 PEEP of 5. Sinus rhythm. Off propofol. Eyes open. IV drips include norepinephrine and vasopressin. CPAP today. 2 feeding at 20 mL an hour. I'll report to the ileostomy bag. No output through the Provena. PABLO drain about 20-40 mL in 24 hours.-Serous June 02: ICU. Intubated. FiO2 35 and a PEEP of 5. Drips include IV norepinephrine, vasopressin, propofol. Patient lasted for CPAP about 3 hours yesterday. Getting IV Lasix. 2 feeding increased to 50 mL an hour. Ileostomy putting out stool. PABLO drain put out about 40 mL every 12 hours. Serous. IV calcium gluconate given. Active Medications Albuterol/Ipratropium (Ipratropium-Albuterol 3 Ml Neb) 3 ml INHALATION RT-Q4H [facility] Last Admin: 06/02/23 15:08 Dose: 3 ml Chlorhexidine Gluconate (Chlorhexidine Gluconate 15 Ml Cup) 15 ml MUCOUS MEM BID [facility] Last Admin: 06/02/23 09:49 Dose: 15 ml Dextrose/Water (Dextrose 50% Syringe 50 Ml) 25 ml IVP PER PROTOCOL PRN; Protocol PRN Reason: Hypoglycemia Last Admin: 05/30/23 15:48 Dose: 25 ml Dextrose/Water (Dextrose 50% Syringe 50 Ml) 50 ml IVP PER PROTOCOL PRN; Protocol PRN Reason: Hypoglycemia Ergocalciferol (Ergocalciferol 1,250 Mcg (50,000 Iu) Capsule) 1,250 mcg PO Q72H [facility] Last Admin: 06/02/23 09:49 Dose: 1,250 mcg Furosemide (Furosemide 10 Mg/Ml 4 Ml Vial) 40 mg IV Q12HR [facility] Hydromorphone HCl (Hydromorphone 1 Mg/Ml 1 Ml Syringe) 1 mg IVP Q3HR PRN PRN Reason: Moderate to Severe Pain (4-10) Last Admin: 06/02/23 03:01 Dose: 1 mg Metronidazole 500 mg/ IV (Solution) 100 mls @ 100 mls/hr IVPB Q6H [facility]; Protocol Last Admin: 06/02/23 11:53 Dose: 100 mls/hr Norepinephrine Bitartrate 32 (mg/ Sodium Chloride) 250 mls @ 0.778 mls/hr IV .Q24H [facility]; Protocol Last Titration: 06/02/23 10:28 Dose: 0.04 mcg/kg/min, 1.038 mls/hr Propofol 1,000 mg/ IV Solution 100 mls @ 4.98 mls/hr IV .Q20H5M [facility]; Protocol Last Titration: 06/02/23 11:20 Dose: 0 mcg/kg/min, 0 mls/hr Vasopressin 60 unit/ Sodium (Chloride) 153 mls @ 4.59 mls/hr IV .Q24H [facility]; Protocol Last Admin: 06/02/23 08:20 Dose: 0.03 units/min, 4.59 mls/hr Sodium Chloride (Saline 0.9%) 1,000 mls @ 20 mls/hr IV .Q24H [facility] Last Admin: 06/02/23 09:49 Dose: Not Given Ampicillin Sodium/Sulbactam (Sodium 3 gm/ Sodium Chloride) 100 mls @ 200 mls/hr IVPB Q12HR@1000,2200 [facility]; Protocol Last Admin: 06/02/23 09:52 Dose: 200 mls/hr Daptomycin 350 mg/ Sodium (Chloride) 50 mls @ 100 mls/hr IVPB Q48H [facility]; Protocol Miscellaneous Information (Magnesium Replacement Protocol 1 Each Misc) 1 each MISCELLANE DAILY PRN; Protocol PRN Reason: Per Protocol Miscellaneous Information (Phosphorus Replacement Protoco 1 Each Misc) 1 each MISCELLANE DAILY PRN; Protocol PRN Reason: Per Protocol Naloxone HCl (Naloxone 0.4 Mg/Ml 1 Ml Vial) 0.2 mg IV Q2M PRN PRN Reason: Opioid Reversal Ondansetron HCl (Ondansetron 4 Mg/2 Ml Vial) 4 mg IVP Q8HR PRN PRN Reason: Nausea And Vomiting Pantoprazole Sodium (Pantoprazole 40 Mg/10 Ml Vial) 40 mg IV DAILY [facility] Last Admin: 06/02/23 09:49 Dose: 40 mg Past medical history to include: Hypothyroid, osteomyelitis, COPD, left colectomy with end colostomy Social history: Currently at [facility]. Smokes about half a pack a day since age 21, up to February 2023.. Doesn't really walk currently. Physical examination: VITAL SIGNS: 92, 22, 92/55, 99% GENERAL:, In bed, sedated EYES: Pupils equal. Conjunctiva pale HEENT: External appearance of nose and ears normal, oral cavity dry mucous membranes. ET tube. NECK: JVD unable to assess; masses not palpable. HEART: First and second heart sounds are normal; no edema. LUNGS: Respiratory rate increased; decreased breath sounds. ABDOMEN: Soft,, nontender Liver spleen not palpable, no masses palpable. Midline Provena. Left-sided PABLO drain Right-sided ileostomy bag with liquid stools PSYCH: Does open eyes MUSCULOSKELETAL:No Clubbing/cyanosis;muscles-grossly intact. Mottling of the lower extremities. Cold lower extremity. INVESTIGATIONS, reviewed in the clinical context: June 02: White count 19.2 hemoglobin 9.3 platelets 47 sodium 141 potassium 3.4 BUN 4622.29 CPK 19482 June 01: White count 19.3 hemoglobin 9.5 platelets 52 sodium 140 BUN 46 creatinine 2.34 potassium 5.3 CPK 56832 May 31: WBC 16.7 hemoglobin 9.9 platelets 57 sodium 139 potassium 3.9 BUN 46 creatinine 2.24 CPK 56921 Peritoneal fluid: E. coli, enterococcus raffinosus Blood culture [May 26]: E. coli May 30: White count 9.2 hemoglobin 9.7 platelets 59 potassium 3.8 BUN 43 creatinine 1.89 ionized calcium 3.5 CPK 43601 May 29: White count 7.1 hemoglobin 9.7 platelets 59 potassium 3.2 BUN 41 and creatinine 1.59 05/28/2023: White count 4.4 hemoglobin 10.6 platelets 161 2139 potassium 4.5 BUN 40 creatinine 1.67 bicarb 17 calcium 5.9 ionized calcium 3.6 magnesium 1.3 Previous labs: Creatinine 1.28 on 05/26/2023. 0.77 on 02/25/2023. EKG tracing personally reviewed by me-normal sinus rhythm. P pulmonale. Nonspecific T-wave changes. Chest x-ray film personally reviewed by me-hyperinflation CT abdomen pelvis [May 26] large pneumoperitoneum. Large fecal bolus of the rectum. Fecal debris within the redundant sigmoid colon. Because of the volvulus. Cholelithiasis. Ascites. Assessment and plan: -Acute bowel perforation leading to pneumoperitoneum and septic peritonitis. Paternal culture Cultures positive-. coli, enterococcus raffinosus: Slow to respond IV Flagyl. IV Unasyn. IV daptomycin added -Septic shock from above: Severe, slow to respond IV vasopressin, IV levo fed. -Acute metabolic acidosis multifactorial including renal failure: Better -Acute kidney injury, ATN from septic shock.: Slow to respond Follow with nephrology -Suspect PAD in a patient who smoker Follow with vascular. No current intervention. -Hypocalcemia: Controlled Replace with calcium gluconate -Acute rhabdomyolysis, multifactorial: Slow to respond -Acute thrombocytopenia secondary to sepsis: Slow to respond Treat underlying infection -Acute hypoxic respiratory failure, requiring ventilator support: Slow to respond -Exploratory laparotomy: Subtotal colectomy with partial proctectomy; Drainage of pelvic abscess/fecal peritonitis, 200-mL; End ileostomy; Placement of round #19 garfield rodriguez drain; Placement of incisional wound vac, 20-cm, PREVENa; Left salpingo-oophorectomy with Dr. Mariely Parikh on May 27. -Reversal of colostomy in February 2023. Right and left colectomy with end colostomy in September [address] Worthington -Acute postprocedure blood loss anemia, expected from surgery contributing to hypotension: Admission hemoglobin 14.9. -GERD PPI -Chronic medical debility from surgery. Other medical conditions. per [facility] patient has recently been nonambulatory. -Hypothyroid Levothyroxin -COPD in a previous smoker DuoNeb every 4 -Anemia of chronic disease hemoglobin 11.3 Iron deficiency from blood loss. -DO NOT RESUSCITATE IV daptomycin. IV Unasyn. IV Flagyl. Pressor support. Repeat cultures pending. Remains critical. Past Medical History Past Medical History: Cancer, COPD, GERD/Reflux, Osteoarthritis (OA), Pulmonary Embolus (PE), Thyroid Disorder Additional Past Medical History / Comment(s): CANCER APPENDIX, COLOSTOMY, HEART MURMUR., STATES PE 2017., CERVICAL STENOSIS WITH HERNIATED DISC., ABD WOUND DIHISENCE., RESIDES AT [facility]. History of Any Multi-Drug Resistant Organisms: MRSA Year Discovered:: 11/24/22 MDRO Source:: ABD WOUND Past Surgical History: Section Additional Past Surgical History / Comment(s): RIGHT AND LEFT COLECTOMY WITH COLOSTOMY., COLONOSCOPY; ostomy reversal/hernia repair/colectomy (01/29/23). Past Anesthesia/Blood Transfusion Reactions: No Reported Reaction Past Psychological History: No Psychological Hx Reported Smoking Status: Current every day smoker Past Alcohol Use History: None Reported Additional Past Alcohol Use History / Comment(s): SMOKES 1/2 PPD, STARTED SMOKING AGE 21. Past Drug Use History: None Reported - Past Family History Mother History Unknown: Yes Family Medical History: No Reported History Medications and Allergies Home Medications Medication Instructions Recorded Confirmed Type Levothyroxine Sodium [Euthyrox] 75 mcg PO DAILY #30 tab 09/17/22 05/26/23 Rx Ipratropium-Albuterol Nebulize 3 ml INHALATION RT-TID PRN 10/04/22 05/26/23 History [Duoneb 0.5 mg-3 mg/3 ml Soln] Omeprazole [PriLOSEC] 20 mg PO DAILY 10/04/22 05/26/23 History Acetaminophen Tab [Tylenol] 325 mg PO Q6HR PRN 01/26/23 05/26/23 History Calcium Carbonate/Vitamin D3 1 tab PO DAILY 01/26/23 05/26/23 History [Calcium 600 mg-Vit D3 5 mcg (200 unit)] Cholecalciferol [Vitamin D3 (25 25 mcg PO DAILY 01/26/23 05/26/23 History Mcg = 1000 Iu)] Pyridoxine HCl (Vitamin B6) 100 mg PO DAILY 01/26/23 05/26/23 History [Vitamin B-6] HYDROcodone/APAP 5-325MG [[place] 1 tab PO Q6HR PRN 3 Days #12 tab 02/25/23 05/26/23 Rx 5-325] Docusate [Colace] 100 mg PO BID 05/26/23 05/26/23 History Folic Acid 0.4 mg PO HS 05/26/23 05/26/23 History Healthshake 1 dose PO TID 05/26/23 05/26/23 History Magnesium Citrate [Citrate of 1.745 gm PO DAILY PRN 05/26/23 05/26/23 History Magnesia] Multivitamins, Thera [Multivitamin 1 tab PO HS 05/26/23 05/26/23 History (formulary)] Psyllium Husk 100% [Metamucil 6 gm PO DAILY 05/26/23 05/26/23 History Packet] Allergies Allergy/AdvReac Type Severity Reaction Status Date / Time No Known Allergies Allergy Verified 05/26/23 17:49
--- NOTE | 2023-06-02 16:47 | P.PN ---
Subjective Progress Note Date: 06/02/23 Patient seen and examined. Slight decrease in pressor usage again per nursing staff. Per nursing again there is improvement of the mottling at this point only at the level of the feet of the entirety of the leg as previous. Objective - Vital Signs Vital signs: Vital Signs Temp 98.7 F 06/02/23 04:00 Pulse 92 06/02/23 16:00 Resp 18 06/02/23 16:00 BP 95/60 06/02/23 15:00 Pulse Ox 99 06/02/23 16:00 FiO2 35 06/02/23 15:58 Intake & Output 06/01/23 06/02/23 06/02/23 18:59 06:59 18:59 Intake Total 2412.408 2288.640 1872.740 Output Total 6632 599 2240 Balance 1884.449 6409.640 657.740 Weight 82.8 kg 76.5 kg Intake: IV 2136 1651 1285 0.9 NS KVO 120 110 170 ARTERIAL LINE & CVP 66 66 60 Ampicillin-Sulbactam 3 gm 100 100 In Sodium Chloride 0.9% 100 ml @ 200 mls/hr IVPB Q12HR [facility] Rx#:[id number] Ampicillin-Sulbactam 3 gm 100 In Sodium Chloride 0.9% 100 ml @ 200 mls/hr IVPB Q12HR@1000,2200 [facility] Rx#: [id number] Calcium Gluconate in NaCl 0 2 gm In Saline 1 100ml. bag @ 100 mls/hr IVPB ONCE ONE Rx#:[id number] Calcium Gluconate in NaCl 100 100 2 gm In Saline 1 100ml. bag @ 100 mls/hr IVPB ONCE ONE Rx#:[id number] DAPTOmycin 350 mg In 50 Sodium Chloride 0.9% 50 ml @ 100 mls/hr IVPB Q24HR [facility] Rx#:[id number] Magnesium Sulfate-D5w Pmx 100 1 gm In Dextrose/Water 1 100ml.bag @ 100 mls/hr IVPB Q1H [facility] Rx#: [id number] Potassium Chloride 10 meq 200 In Water For Injection 1 100ml.bag @ 100 mls/hr IVPB Q1H [facility] Rx#: [id number] Sodium Chloride 0.9% 1, 1500 1375 455 000 ml @ 20 mls/hr IV . Q24H [facility] Rx#:[id number] metroNIDAZOLE-NS PMX 500 200 100 mg In Saline 1 100ml.bag @ 100 mls/hr IVPB Q6H [facility] Rx#:[id number] Intake, IV Titration 76.408 237.640 57.740 Amount Norepinephrine 32 mg In 29.335 32.760 9.069 Sodium Chloride 0.9% 218 ml @ 0.03 MCG/KG/MIN 0. 778 mls/hr IV .Q24H [facility] Rx#:[id number] Vasopressin 60 unit In 153 Sodium Chloride 0.9% 150 ml @ 0.03 UNITS/MIN 4.59 mls/hr IV .Q24H [facility] Rx#: [id number] propofoL 1,000 mg In 47.073 51.880 48.671 Empty Bag 1 bag @ 15 MCG/ KG/MIN 4.98 mls/hr IV . Q20H5M [facility] Rx#:[id number] Tube Feeding 170 280 440 Other 30 120 90 Output: Drainage 80 65 80 Left Lower Abdomen 80 65 80 Urine 805 514 885 Stool 150 250 Other: Voiding Method Indwelling Catheter Indwelling Catheter Indwelling Catheter ABP, PAP, CO, CI - Last Documented Arterial Blood Pressure 87/53 - Exam Vented, sedated Mottling noted bilateral feet without extension past the ankle. Left foot warm to the mid foot, forefoot is cool. Ankle to foot is cool on the right Warm bilateral lower extremities of the upper and lower leg. No doppler signals noted. - Labs CBC & Chem 7: 06/02/23 04:38 06/02/23 04:38 Labs: Abnormal Lab Results - Last 24 Hours (Table) 06/01/23 06/01/23 06/02/23 Range/Units 17:39 23:38 02:57 WBC (3.8-10.6) k/uL RBC (3.80-5.40) m/uL Hgb (11.4-16.0) gm/dL Hct (34.0-46.0) % RDW (11.5-15.5) % Plt Count (150-450) k/uL Neutrophils # (1.3-7.7) k/uL Lymphocytes # (1.0-4.8) k/uL ABG pH (7.35-7.45) ABG pO2 (83-108) mmHg ABG HCO3 (21-25) mmol/L ABG O2 Saturation (94-97) % Potassium (3.5-5.1) mmol/L Chloride (98-107) mmol/L Carbon Dioxide (22-30) mmol/L BUN (7-17) mg/dL Creatinine (0.52-1.04) mg/dL Glucose (74-99) mg/dL POC Glucose (mg/dL) 127 H 126 H 116 H (70-110) mg/dL Calcium (8.4-10.2) mg/dL Phosphorus (2.5-4.5) mg/dL Creatine Kinase (30-135) U/L 06/02/23 06/02/23 06/02/23 Range/Units 04:38 04:38 04:38 WBC 19.2 H (3.8-10.6) k/uL RBC 3.19 L (3.80-5.40) m/uL Hgb 9.3 L (11.4-16.0) gm/dL Hct 29.1 L (34.0-46.0) % RDW 16.9 H (11.5-15.5) % Plt Count 47 L (150-450) k/uL Neutrophils # 18.2 H (1.3-7.7) k/uL Lymphocytes # 0.4 L (1.0-4.8) k/uL ABG pH (7.35-7.45) ABG pO2 (83-108) mmHg ABG HCO3 (21-25) mmol/L ABG O2 Saturation (94-97) % Potassium 3.4 L (3.5-5.1) mmol/L Chloride 111 H (98-107) mmol/L Carbon Dioxide 18 L (22-30) mmol/L BUN 46 H (7-17) mg/dL Creatinine 2.29 H (0.52-1.04) mg/dL Glucose 118 H (74-99) mg/dL POC Glucose (mg/dL) (70-110) mg/dL Calcium 5.8 L* (8.4-10.2) mg/dL Phosphorus 5.0 H (2.5-4.5) mg/dL Creatine Kinase 21251 H* (30-135) U/L 06/02/23 06/02/23 06/02/23 Range/Units 04:45 05:53 11:27 WBC (3.8-10.6) k/uL RBC (3.80-5.40) m/uL Hgb (11.4-16.0) gm/dL Hct (34.0-46.0) % RDW (11.5-15.5) % Plt Count (150-450) k/uL Neutrophils # (1.3-7.7) k/uL Lymphocytes # (1.0-4.8) k/uL ABG pH 7.32 L (7.35-7.45) ABG pO2 148 H (83-108) mmHg ABG HCO3 20 L (21-25) mmol/L ABG O2 Saturation 98.5 H (94-97) % Potassium (3.5-5.1) mmol/L Chloride (98-107) mmol/L Carbon Dioxide (22-30) mmol/L BUN (7-17) mg/dL Creatinine (0.52-1.04) mg/dL Glucose (74-99) mg/dL POC Glucose (mg/dL) 127 H 124 H (70-110) mg/dL Calcium (8.4-10.2) mg/dL Phosphorus (2.5-4.5) mg/dL Creatine Kinase (30-135) U/L Microbiology - Last 24 Hours (Table) 05/31/23 14:31 Blood Culture - Preliminary Blood 05/31/23 11:41 Blood Culture - Preliminary Blood 05/27/23 14:52 Anaerobic Culture - Final Peritoneal Fluid Clostridium perfringens Anaerobic Gm Negative Bacilli Anaerobic Gm Negative Bacilli#2 Anaerobic Gm Negative Bacilli#3 Assessment and Plan Assessment: Septic shock secondary to bowel perforation Acute arterial insufficiency secondary to pressor dependent shock Metabolic acidosis with acute renal failure Plan: Continue supportive care as needed. Wean pressors support when able. Await further demarcation to make recommendations regarding possible debridement/amputation. Essentially we will await the patient awake alert. No emergent intervention in regards to the bilateral lower extremities required at this time. We'll be available if hemodialysis access becomes necessary.
[2023-06-02 17:05] LABS: Glucose,Whole Blood 149 mg/dL (70-110)
[2023-06-02] MEDS ORDERED: Potassium Replacement Protocol 1 EACH MISC MISCELLANE PRN (19:03)
[2023-06-02] MEDS: FUROSEMIDE 10 MG/ML 4 ML VIAL IV SCH (20:43)
[2023-06-02] MEDS: POTASSIUM BICARBONATE/CIT AC 20 MEQ TABLET.EFF NG-TUBE SCH ×2 (20:43→22:25)
[2023-06-03] MEDS: IPRATROPIUM-ALBUTEROL 3 ML NEB INHALATION SCH ×6 (00:32→19:42)
[2023-06-03 00:40] LABS: Glucose,Whole Blood 121 mg/dL (70-110)
[2023-06-03] MEDS: HYDROcodone/APAP 5-325MG 1 EACH TAB PO PRN ×3 (01:19→23:33)
[2023-06-03] MEDS: HYDROmorphone 1 MG/ML 1 ML SYRINGE IVP PRN ×2 (04:25→16:06)
[2023-06-03] MEDS: metroNIDAZOLE-NS PMX 500 MG in SALINE 1 100ML.BAG IVPB SCH ×4 (04:37→23:03)
[2023-06-03 04:45] LABS: Glucose,Whole Blood 118 mg/dL (70-110)
[2023-06-03 04:55] LABS: Anisocytosis Slight; Basophils % (A) 0 %; Eosinophils % (A) 0 %; HCT 29.2 % (34.0-46.0); HGB 9.3 gm/dL (11.4-16.0); Hypochromasia Slight; Lymphocytes # (A) 0.4 k/uL (1.0-4.8); Lymphocytes % (A) 2 %; MCH 28.7 pg (25.0-35.0); MCHC 31.8 g/dL (31.0-37.0); MCV 90.3 fL (80.0-100.0); Mean Platelet Volume 12.6; Monocytes # (A) 0.3 k/uL (0-1.0); Monocytes % (A) 2 %; Neutrophils # (A) 18.7 k/uL (1.3-7.7); Neutrophils % (A) 95 %; RBC 3.23 m/uL (3.80-5.40); RDW 17.4 % (11.5-15.5); WBC 19.6 k/uL (3.8-10.6)
[2023-06-03 05:02] LABS: Platelet Count 51 k/uL (150-450)
[2023-06-03 05:11] LABS: Ionized Calcium 3.7 mg/dL (4.5-5.3)
[2023-06-03 05:20] LABS: ALT 145 U/L (4-34); AST 338 U/L (14-36); African American GFR (CKD) 23 (>60 ml/min/1.73 sqM); Albumin 1.7 g/dL (3.5-5.0); Alkaline Phosphatase 154 U/L (38-126); Anion Gap 11 mmol/L; Blood Urea Nitrogen 47 mg/dL (7-17); Carbon Dioxide 19 mmol/L (22-30); Chloride 112 mmol/L (98-107); Glucose 110 mg/dL (74-99); Magnesium 1.8 mg/dL (1.6-2.3); Non-African American GFR(CKD) 20 (>60 ml/min/1.73 sqM); Potassium 3.4 mmol/L (3.5-5.1); Sodium 142 mmol/L (137-145); Total Bilirubin 1.8 mg/dL (0.2-1.3)
[2023-06-03 06:22] LABS: Calcium 5.8 mg/dL (8.4-10.2)
[2023-06-03 06:31] LABS: Creatine Kinase 7950 U/L (30-135)
[2023-06-03 06:33] LABS: ABG Base Excess -5.1 mmol/L; ABG HCO3 21 mmol/L (21-25); ABG Oxygen Saturation 98.4 % (94-97); ABG PCO2 40 mmHg (35-45); ABG PH 7.33 (7.35-7.45); ABG PO2 136 mmHg (83-108); ABG TCO2 22 mmol/L (19-24); Allen Test Performed? Yes
[2023-06-03] MEDS ORDERED: CALCIUM GLUCONATE IN NACL 2 GM in SALINE 1 100ML.BAG IVPB ONE (06:45)
[2023-06-03] MEDS: POTASSIUM BICARBONATE/CIT AC 20 MEQ TABLET.EFF NG-TUBE SCH ×2 (07:09→08:14)
[2023-06-03] MEDS: DAPTOmycin 350 MG in SODIUM CHLORIDE 0.9% 50 ML IVPB SCH (08:14)
[2023-06-03] MEDS: PANTOPRAZOLE 40 MG/10 ML VIAL IV SCH (08:14)
[2023-06-03] MEDS: FUROSEMIDE 10 MG/ML 4 ML VIAL IV SCH (08:14)
[2023-06-03] MEDS: CHLORHEXIDINE GLUCONATE 15 ML CUP MUCOUS MEM SCH ×2 (08:14→23:03)
--- NOTE | 2023-06-03 08:26 | XR ---
EXAMINATION TYPE: XR chest 1V portable DATE OF EXAM: 06/03/2023 COMPARISON: 06/02/2023 HISTORY: Shortness of breath TECHNIQUE: Single frontal view of the chest is obtained. FINDINGS: ET tube, NG tube and central line stable. Bilateral consolidation and small effusion hyper trophic degenerative changes spine. Additional uropathy. Interstitial pattern. IMPRESSION: Stable pleural-parenchymal findings correlate for CHF otherwise consider pneumonia.
[2023-06-03] MEDS: SODIUM CHLORIDE 0.9% 1,000 ML IV SCH ×2 (09:56→13:09)
[2023-06-03] MEDS: AMPICILLIN-SULBACTAM 3 GM in SODIUM CHLORIDE 0.9% 100 ML IVPB SCH ×2 (10:24→23:03)
--- NOTE | 2023-06-03 10:59 | P.PN ---
Subjective patient is seen for follow-up for acute kidney injury. Patient remains on the vent Urine output increased with Lasix. Currently at about 75-100 mL per hour FiO2 at 35%. Sedation is off and patient is awake CK down to 7950 today. Objective - Vital Signs Vital signs: Vital Signs Temp 97.8 F 06/03/23 08:00 Pulse 109 H 06/03/23 10:00 Resp 19 06/03/23 10:00 BP 92/62 06/03/23 10:00 Pulse Ox 100 06/03/23 10:00 FiO2 50 06/03/23 10:31 Intake & Output 06/02/23 06/03/23 06/03/23 18:59 06:59 18:59 Intake Total 2144.740 1136.896 633.602 Output Total 1365 1415 1700 Balance 779.740 -278.104 -1066.398 Weight 83.4 kg Intake: IV 1457 487 184 0.9 NS KVO 230 360 60 ARTERIAL LINE & CVP 72 27 24 Ampicillin-Sulbactam 3 gm 100 In Sodium Chloride 0.9% 100 ml @ 200 mls/hr IVPB Q12HR [facility] Rx#:[id number] Ampicillin-Sulbactam 3 gm 100 100 In Sodium Chloride 0.9% 100 ml @ 200 mls/hr IVPB Q12HR@1000,2200 [facility] Rx#: [id number] Calcium Gluconate in NaCl 0 2 gm In Saline 1 100ml. bag @ 100 mls/hr IVPB ONCE ONE Rx#:[id number] Calcium Gluconate in NaCl 100 2 gm In Saline 1 100ml. bag @ 100 mls/hr IVPB ONCE ONE Rx#:[id number] Magnesium Sulfate-D5w Pmx 100 1 gm In Dextrose/Water 1 100ml.bag @ 100 mls/hr IVPB Q1H [facility] Rx#: [id number] Potassium Chloride 10 meq 200 In Water For Injection 1 100ml.bag @ 100 mls/hr IVPB Q1H [facility] Rx#: [id number] Sodium Chloride 0.9% 1, 455 000 ml @ 100 mls/hr IV . Q10H [facility] Rx#:[id number] metroNIDAZOLE-NS PMX 500 200 mg In Saline 1 100ml.bag @ 100 mls/hr IVPB Q6H [facility] Rx#:[id number] Intake, IV Titration 57.740 9.896 229.602 Amount Calcium Gluconate in NaCl 100 2 gm In Saline 1 100ml. bag @ 100 mls/hr IVPB ONCE ONE Rx#:[id number] DAPTOmycin 350 mg In 50 Sodium Chloride 0.9% 50 ml @ 100 mls/hr IVPB Q48H [facility] Rx#:[id number] Norepinephrine 32 mg In 9.069 9.896 19.602 Sodium Chloride 0.9% 218 ml @ 0.03 MCG/KG/MIN 0. 778 mls/hr IV .Q24H [facility] Rx#:[id number] Sodium Chloride 0.9% 1, 60 000 ml @ 100 mls/hr IV . Q10H [facility] Rx#:[id number] propofoL 1,000 mg In 48.671 Empty Bag 1 bag @ 15 MCG/ KG/MIN 4.98 mls/hr IV . Q20H5M [facility] Rx#:[id number] Tube Feeding 540 550 150 Other 90 90 70 Output: Gastric Drainage 1300 Drainage 80 Left Lower Abdomen 80 Urine 1035 1165 400 Stool 250 250 Other: Voiding Method Indwelling Catheter Indwelling Catheter ABP, PAP, CO, CI - Last Documented Arterial Blood Pressure 115/67 - Exam Patient is on the vent. She is currently awake Examination of the heart S1 and S2 Examination of the lungs bilateral breath sounds are heard Abdomen is soft nontender Examination of lower extremities shows significant mottling bilaterally. Edema noted in upper and lower extremities extremities. - Labs CBC & Chem 7: 06/03/23 04:45 06/03/23 04:45 Labs: Abnormal Lab Results - Last 24 Hours (Table) 06/02/23 06/02/23 06/02/23 Range/Units 11:27 16:28 17:04 WBC (3.8-10.6) k/uL RBC (3.80-5.40) m/uL Hgb (11.4-16.0) gm/dL Hct (34.0-46.0) % RDW (11.5-15.5) % Plt Count (150-450) k/uL Neutrophils # (1.3-7.7) k/uL Lymphocytes # (1.0-4.8) k/uL ABG pH (7.35-7.45) ABG pO2 (83-108) mmHg ABG O2 Saturation (94-97) % Potassium 3.4 L (3.5-5.1) mmol/L Chloride (98-107) mmol/L Carbon Dioxide (22-30) mmol/L BUN (7-17) mg/dL Creatinine (0.52-1.04) mg/dL Glucose (74-99) mg/dL POC Glucose (mg/dL) 124 H 149 H (70-110) mg/dL Calcium (8.4-10.2) mg/dL Ionized Calcium Ines (4.5-5.3) mg/dL Total Bilirubin (0.2-1.3) mg/dL AST (14-36) U/L ALT (4-34) U/L Alkaline Phosphatase (38-126) U/L Creatine Kinase (30-135) U/L Total Protein (6.3-8.2) g/dL Albumin (3.5-5.0) g/dL 06/03/23 06/03/23 06/03/23 Range/Units 00:38 04:43 04:45 WBC (3.8-10.6) k/uL RBC (3.80-5.40) m/uL Hgb (11.4-16.0) gm/dL Hct (34.0-46.0) % RDW (11.5-15.5) % Plt Count (150-450) k/uL Neutrophils # (1.3-7.7) k/uL Lymphocytes # (1.0-4.8) k/uL ABG pH (7.35-7.45) ABG pO2 (83-108) mmHg ABG O2 Saturation (94-97) % Potassium 3.4 L (3.5-5.1) mmol/L Chloride 112 H (98-107) mmol/L Carbon Dioxide 19 L (22-30) mmol/L BUN 47 H (7-17) mg/dL Creatinine 2.52 H (0.52-1.04) mg/dL Glucose 110 H (74-99) mg/dL POC Glucose (mg/dL) 121 H 118 H (70-110) mg/dL Calcium 5.8 L* (8.4-10.2) mg/dL Ionized Calcium Ines 3.7 L (4.5-5.3) mg/dL Total Bilirubin 1.8 H (0.2-1.3) mg/dL AST 338 H (14-36) U/L ALT 145 H (4-34) U/L Alkaline Phosphatase 154 H (38-126) U/L Creatine Kinase 7950 H* (30-135) U/L Total Protein 4.0 L (6.3-8.2) g/dL Albumin 1.7 L (3.5-5.0) g/dL 06/03/23 06/03/23 Range/Units 04:45 06:28 WBC 19.6 H (3.8-10.6) k/uL RBC 3.23 L (3.80-5.40) m/uL Hgb 9.3 L (11.4-16.0) gm/dL Hct 29.2 L (34.0-46.0) % RDW 17.4 H (11.5-15.5) % Plt Count 51 L (150-450) k/uL Neutrophils # 18.7 H (1.3-7.7) k/uL Lymphocytes # 0.4 L (1.0-4.8) k/uL ABG pH 7.33 L (7.35-7.45) ABG pO2 136 H (83-108) mmHg ABG O2 Saturation 98.4 H (94-97) % Potassium (3.5-5.1) mmol/L Chloride (98-107) mmol/L Carbon Dioxide (22-30) mmol/L BUN (7-17) mg/dL Creatinine (0.52-1.04) mg/dL Glucose (74-99) mg/dL POC Glucose (mg/dL) (70-110) mg/dL Calcium (8.4-10.2) mg/dL Ionized Calcium Ines (4.5-5.3) mg/dL Total Bilirubin (0.2-1.3) mg/dL AST (14-36) U/L ALT (4-34) U/L Alkaline Phosphatase (38-126) U/L Creatine Kinase (30-135) U/L Total Protein (6.3-8.2) g/dL Albumin (3.5-5.0) g/dL Microbiology - Last 24 Hours (Table) 05/31/23 14:31 Blood Culture - Preliminary Blood 05/31/23 11:41 Blood Culture - Preliminary Blood Assessment and Plan Assessment: 1. Nonoliguric ATN, ischemic and toxic.underlying rhabdomyolysis. UA shows trace protein. Baseline creatinine around 0.8 mg/dL. 2. Septic shock secondary to perforated bowel 3. Anion gap metabolic acidosis secondary to acute kidney injury 4. Hypomagnesemia status post replacement 5. Acute hypoxic respiratory failure currently on the vent 6. Rhabdomyolysis, patient is not on statins. No large bruises noted. Mottlin g noted in the lower extremities. CK decreasing 7. Hypocalcemia associated with severe nutritional vitamin D deficiency currently being replaced. Plan: Recommend to diurese patient and decrease IV fluids Continue with vitamin D supplementation Continue with antibiotics.
[2023-06-03 12:45] LABS: Glucose,Whole Blood 88 mg/dL (70-110)
[2023-06-03] MEDS: METOCLOPRAMIDE 10 MG TAB PO SCH ×2 (13:06→17:57)
--- NOTE | 2023-06-03 13:49 | P.PN ---
Subjective Progress Note Date: 06/03/23 Patient seen and examined. Initially with decrease in pressor use, planned for extubation but upon nasogastric tube suctioning, moderate volume removed and patient with recurrent hypotensive episode, resumed a CT ventilation and increased pressors once more. Objective - Vital Signs Vital signs: Vital Signs Temp 98 F 06/03/23 12:15 Pulse 99 06/03/23 13:30 Resp 20 06/03/23 13:30 BP 92/62 06/03/23 10:00 Pulse Ox 100 06/03/23 13:30 FiO2 35 06/03/23 12:00 Intake & Output 06/02/23 06/03/23 06/03/23 18:59 06:59 18:59 Intake Total 2144.740 1136.896 956.444 Output Total 1365 1415 2025 Balance 779.740 -278.104 -1068.556 Weight 83.4 kg Intake: IV 1457 487 202 0.9 NS KVO 230 360 60 ARTERIAL LINE & CVP 72 27 42 Ampicillin-Sulbactam 3 gm 100 In Sodium Chloride 0.9% 100 ml @ 200 mls/hr IVPB Q12HR [facility] Rx#:[id number] Ampicillin-Sulbactam 3 gm 100 100 In Sodium Chloride 0.9% 100 ml @ 200 mls/hr IVPB Q12HR@1000,2200 [facility] Rx#: [id number] Calcium Gluconate in NaCl 0 2 gm In Saline 1 100ml. bag @ 100 mls/hr IVPB ONCE ONE Rx#:[id number] Calcium Gluconate in NaCl 100 2 gm In Saline 1 100ml. bag @ 100 mls/hr IVPB ONCE ONE Rx#:[id number] Magnesium Sulfate-D5w Pmx 100 1 gm In Dextrose/Water 1 100ml.bag @ 100 mls/hr IVPB Q1H [facility] Rx#: [id number] Potassium Chloride 10 meq 200 In Water For Injection 1 100ml.bag @ 100 mls/hr IVPB Q1H [facility] Rx#: [id number] Sodium Chloride 0.9% 1, 455 000 ml @ 100 mls/hr IV . Q10H [facility] Rx#:[id number] metroNIDAZOLE-NS PMX 500 200 mg In Saline 1 100ml.bag @ 100 mls/hr IVPB Q6H [facility] Rx#:[id number] Intake, IV Titration 57.740 9.896 514.444 Amount Calcium Gluconate in NaCl 100 2 gm In Saline 1 100ml. bag @ 100 mls/hr IVPB ONCE ONE Rx#:[id number] DAPTOmycin 350 mg In 50 Sodium Chloride 0.9% 50 ml @ 100 mls/hr IVPB Q48H [facility] Rx#:[id number] Norepinephrine 32 mg In 9.069 9.896 23.753 Sodium Chloride 0.9% 218 ml @ 0.03 MCG/KG/MIN 0. 778 mls/hr IV .Q24H [facility] Rx#:[id number] Sodium Chloride 0.9% 1, 340 000 ml @ 100 mls/hr IV . Q10H [facility] Rx#:[id number] propofoL 1,000 mg In 48.671 0.691 Empty Bag 1 bag @ 15 MCG/ KG/MIN 4.98 mls/hr IV . Q20H5M [facility] Rx#:[id number] Tube Feeding 540 550 150 Other 90 90 90 Output: Gastric Drainage 1300 Drainage 80 Left Lower Abdomen 80 Urine 1035 1165 725 Stool 250 250 Other: Voiding Method Indwelling Catheter Indwelling Catheter ABP, PAP, CO, CI - Last Documented Arterial Blood Pressure 93/56 - Exam Vented, sedated Mottling noted bilateral feet without extension past the ankle. Left foot warm to the mid foot, forefoot is cool. Ankle to foot is cool on the right Warm bilateral lower extremities of the upper and lower leg. No doppler signals noted. - Labs CBC & Chem 7: 06/03/23 04:45 06/03/23 04:45 Labs: Abnormal Lab Results - Last 24 Hours (Table) 06/02/23 06/02/23 06/03/23 Range/Units 16:28 17:04 00:38 WBC (3.8-10.6) k/uL RBC (3.80-5.40) m/uL Hgb (11.4-16.0) gm/dL Hct (34.0-46.0) % RDW (11.5-15.5) % Plt Count (150-450) k/uL Neutrophils # (1.3-7.7) k/uL Lymphocytes # (1.0-4.8) k/uL ABG pH (7.35-7.45) ABG pO2 (83-108) mmHg ABG O2 Saturation (94-97) % Potassium 3.4 L (3.5-5.1) mmol/L Chloride (98-107) mmol/L Carbon Dioxide (22-30) mmol/L BUN (7-17) mg/dL Creatinine (0.52-1.04) mg/dL Glucose (74-99) mg/dL POC Glucose (mg/dL) 149 H 121 H (70-110) mg/dL Calcium (8.4-10.2) mg/dL Ionized Calcium Ines (4.5-5.3) mg/dL Total Bilirubin (0.2-1.3) mg/dL AST (14-36) U/L ALT (4-34) U/L Alkaline Phosphatase (38-126) U/L Creatine Kinase (30-135) U/L Total Protein (6.3-8.2) g/dL Albumin (3.5-5.0) g/dL 06/03/23 06/03/23 06/03/23 Range/Units 04:43 04:45 04:45 WBC 19.6 H (3.8-10.6) k/uL RBC 3.23 L (3.80-5.40) m/uL Hgb 9.3 L (11.4-16.0) gm/dL Hct 29.2 L (34.0-46.0) % RDW 17.4 H (11.5-15.5) % Plt Count 51 L (150-450) k/uL Neutrophils # 18.7 H (1.3-7.7) k/uL Lymphocytes # 0.4 L (1.0-4.8) k/uL ABG pH (7.35-7.45) ABG pO2 (83-108) mmHg ABG O2 Saturation (94-97) % Potassium 3.4 L (3.5-5.1) mmol/L Chloride 112 H (98-107) mmol/L Carbon Dioxide 19 L (22-30) mmol/L BUN 47 H (7-17) mg/dL Creatinine 2.52 H (0.52-1.04) mg/dL Glucose 110 H (74-99) mg/dL POC Glucose (mg/dL) 118 H (70-110) mg/dL Calcium 5.8 L* (8.4-10.2) mg/dL Ionized Calcium Ines 3.7 L (4.5-5.3) mg/dL Total Bilirubin 1.8 H (0.2-1.3) mg/dL AST 338 H (14-36) U/L ALT 145 H (4-34) U/L Alkaline Phosphatase 154 H (38-126) U/L Creatine Kinase 7950 H* (30-135) U/L Total Protein 4.0 L (6.3-8.2) g/dL Albumin 1.7 L (3.5-5.0) g/dL 06/03/23 Range/Units 06:28 WBC (3.8-10.6) k/uL RBC (3.80-5.40) m/uL Hgb (11.4-16.0) gm/dL Hct (34.0-46.0) % RDW (11.5-15.5) % Plt Count (150-450) k/uL Neutrophils # (1.3-7.7) k/uL Lymphocytes # (1.0-4.8) k/uL ABG pH 7.33 L (7.35-7.45) ABG pO2 136 H (83-108) mmHg ABG O2 Saturation 98.4 H (94-97) % Potassium (3.5-5.1) mmol/L Chloride (98-107) mmol/L Carbon Dioxide (22-30) mmol/L BUN (7-17) mg/dL Creatinine (0.52-1.04) mg/dL Glucose (74-99) mg/dL POC Glucose (mg/dL) (70-110) mg/dL Calcium (8.4-10.2) mg/dL Ionized Calcium Ines (4.5-5.3) mg/dL Total Bilirubin (0.2-1.3) mg/dL AST (14-36) U/L ALT (4-34) U/L Alkaline Phosphatase (38-126) U/L Creatine Kinase (30-135) U/L Total Protein (6.3-8.2) g/dL Albumin (3.5-5.0) g/dL Microbiology - Last 24 Hours (Table) 05/31/23 14:31 Blood Culture - Preliminary Blood 05/31/23 11:41 Blood Culture - Preliminary Blood Assessment and Plan Assessment: Septic shock secondary to bowel perforation Acute arterial insufficiency secondary to pressor dependent shock Metabolic acidosis with acute renal failure Plan: Continue supportive care as needed. Wean pressors support when able. Await further demarcation to make recommendations regarding possible debridement/amputation. No emergent intervention at this time. Continue to monitor for overall goals of care.
--- NOTE | 2023-06-03 13:57 | P.PN ---
Subjective Progress Note Date: 06/03/23 Principal diagnosis: Septic shock secondary to acute pneumoperitoneum and abdominal sepsis This is a 63-year-old female patient is currently being seen in the intensive care unit following abdominal surgery. The patient presented to the hospital because of abdominal pain and surgical consultation was obtained as the patient was found to have pneumoperitoneum. The patient had a CAT scan of the abdomen and pelvis that was done 05/26/2023 and the patient was found to have large pneumoperitoneum, large fecal bolus in the rectum. Fecal material was also seen in the sigmoid colon. There was evidence of cholelithiasis and ascites. Based on those findings, the patient was taken to the operating room today and the patient was given an LAD, subtotal colectomy, partial proctectomy and and ileostomy and open fecal decompression drainage of fecal peritonitis and left also also oophprectomy and salpingectomy. Postop, the patient was brought into the intensive care unit. She has already received a total of 5 L of IV fluids. Most recent BP is 81/50. The patient is also on pressors and norepinephrine is running at 0.25 mcg/kg/m. The patient has improved in her urine output which is producing approximately 40 mL an hour. She is fully sedated on propofol which is running at 50 mcg/kg/m. She is, comfortable and symptoms of the mechanical ventilator. I reviewed the initial blood gas that showed a pH of 7.12 with a pCO2 of 48 and a pO2 of more than 400. Subsequently, the patient was placed on assist-control mode at the rate of 26, tidal volume of 400 and FiO2 has been weaned down to 40% and she is currently on a PEEP of 5. The chest x-ray that was done following her abdominal surgery showed adequate positioning of 82. There is no evidence of any acute abnormalities. She has a left IJ triple-lumen catheter in place. The patient had evidence of renal failure, likely acute due to BUN of 47 and a creatinine of 1.78. She also has a mild anion gap metabolic acidosis. The lactic acid level was 2.7. Calcium level was low at 6.3. Serum albumin was 2.6 with a total protein of 4.8. The white cell cause of 3.2 with a hemoglobin of 11.4. She has a NG tube in place. Output from the NG is minimal are brown. Her white suppositive 3.2 with a hemoglobin of 11.4. She is currently covered with IV Zosyn and Flagyl. She was ordered started on a bicarb infusion. Note that the patient has had multiple abdominal surgeries in the past. She has undergone a previous right and left colectomy with end colostomy in September 2022 and subsequent reversal of the colostomy. She has COPD, hypothyroidism and she is a chronic smoker. The patient has had previous episodes of small bowel obstruction and large bowel obstruction. She suffers from chronic constipation. She is status post colectomy and colostomy for chronic thickened impaction approximately 9 months ago. She underwent subsequent reversal approximately 4 months ago but colostomy. On 05/30/2023, the patient is being seen for a follow-up. She remains critically ill following abdominal surgery and the patient continues to be septic although her condition is somewhat improved compared to yesterday. The skin mottling over the abdomen and lower extremity is improved and the patient continues to have absent pulses on the popliteal in her lower extremities bilaterally. She is more warm lower extremities and the cold and clamminess has essentially recovered. Meanwhile, she was seen by vascular surgery and no intervention has been recommended. She continues to be septic features re quiring pressors although the pressor requirements have improved compared to yesterday. She is on norepinephrine running at 0.1 microvascular kilogram per minute and she is also on vasopressin physiologic dose. She remains on a mechanical ventilator. Propofol is running at a dose of 20 mcg/kg/m. She is on assist-control mode of mechanical ventilation, rate of 20, tidal volume of 400, FiO2 of 40% with a PEEP of 5. Blood gas from today shows a pH of 7.44 with a pCO2 of 41 and pO2 of 150. Chest x-ray shows stable findings. Orotracheal tube is in a good location. NG tube is in a good location. She did have some left basilar atelectasis. Meanwhile, the NG tube is in place, output is in order of minimal.The ostomy is functional and there is some liquidy material collecting an ileostomy bag. PABLO drain output is minimal and it is serosanguineous. Abdominal wound looks dry clean and intact. The patient is arousable. She grimaces to painful stimulation. She remains on the sedation. The creatinine is up to 1.89 as the patient suffered an acute kidney injury. BUN is 43, sodium is 138 and the potassium levels at 3.8. The patient has a white cell count of 9.2 with a hemoglobin of 9.7. She remains nothing by mouth for the time being. Platelet count has been dropping and is currently down to 59. Heparin was discontinued yesterday. She remains on a combination of Zosyn and Flagyl. Cultures expected leak going gram-negative bacillus from the abdomen in the blood culture was also positive for E. coli and this E. coli is quinolone resistant. The patient is postop day #4 for the time being. Reevaluated today on 05/31/2023, patient remains in the ICU, intubated and mecha nically ventilated. She is on assist control rate of 2009 volume 400 FiO2 40% and PEEP of 5, ABG showed a pO2 of 148 pCO2 43 pH of 7.34 hence FiO2 was cut down to 35%. Patient is obviously quite ill, she remains very mottled with poor pulses in lower extremities remains on multiple pressors relatively high-dose including vasopressin at 0.03, norepinephrine at 0.14 mcg/kg/m upper followed at 15 mcg/kg/m. Her previous blood cultures have showed E. coli her urine output is 10-15 mL per hour. However went up as the norepinephrine was increased. Her mean arterial pressure is ranging between 60 up to 68. Remains on Flagyl and Zosyn continues to have colostomy in place, 55 mL output from the colostomy overnight. CODE STATUS has been changed to DO NOT RESUSCITATE patient remains on vital HPI 10 mL per hour. Chest x-ray continues to show left lower lobe consolidation. Overall the patient is doing poorly and she is quite ill. WBC count is 16.7 hemoglobin is 9.9, basic metabolic profile is normal bicarb is 22 BUN is 46 creatinine 2.24. Remains on Zosyn empirically she is also on Flagyl repeat blood cultures were requested today. Her last blood cultures were positive for E. coli Patient was reevaluated today on 06/01/2023, patient remains in the ICU, intubated and mechanically ventilated still on assist control rate of 2009 volume 400 FiO2 35% and PEEP of 5. Remains on norepinephrine at 0.12 mcg/kg/m also on vasopressin at 0.03 units per hour patient is on IV fluid at 1 35 mL per hour receiving vital HPI 10 mL per hour remains on Unasyn, she is also on daptomycin and Flagyl. Patient was given a trial off sedation yesterday and she was following simple instructions but she was generally weak. Blood pressure seems to be better today, nonetheless requiring norepinephrine and vasopressin. Continues to have wound VAC in place continues to have ostomy in place seems to be functional with some serous drainage in the ostomy tube. PABLO drain is draining some serous drainage also. CPKs seems to be quite high, and the patient remains mottled. ABG today showed a pO2 of 136 pCO2 39 pH of 7.31. WBC count is 19.3 hemoglobin 9.5 electrolytes are normal, BUN is 46 creatinine 2.34, slightly worse compared to creatinine yesterday of 2.4. CPK is 15,962 slightly higher compared to yesterday Patient was reevaluated today on 06/02/2023 remains in the ICU, intubated and mec hanically ventilated. Patient tolerated about 2 hours yesterday of pressure support and CPAP 09/07. May try to give her another trial today. In the meantime remains on mechanical ventilation with a rate of 20 that is an assist- control rate, volume 400 FiO2 35% PEEP of 5. ABG showed a pO2 of 148 pCO2 40 pH of 7.32 remains on norepinephrine at 0.04 mcg/kg/m vasopressin at 0.3 units per hour propofol at 20 mcg/kg/m and IV fluid at 1 25 mL per hour however considering the patient is in significant fluid balance, I will cut down the fluids to KVO and I will give the patient Lasix 20 mg IV push 1 today. Patient remains on enteral feeding, at 50 mL per hour vital AF. Chest x-ray continues to stable findings of bilateral lower lobe infiltrates and small effusion with mild vascular venous congestion WBC count today is 19.2 with a low hemoglobin 9.3 electrolytes are normal except for low potassium of 3.4, BUN is 46 creatinine 2.29, improving compared to yesterday at 2.34 Reevaluated/today on 06/03/2023, patient remains in the ICU, intubated and mechanically ventilated. As a matter of fact I was about to extubate the patient today, however after suctioning his stomach and significant volume with no significant residual from her feeding was removed patient developed hypotension with blood pressure down to the 60 systolic hence I held back on extubating the patient today. Patient will be given more fluids today, Lasix was placed on hold, and now she would likely require more norepinephrine and nor vasopressin. She was down to 0.02 mg/kg/m of norepinephrine and remains on 0.03 units of vasopressin. Remains on vital AF she is also on daptomycin and Unasyn. Her vent settings are assist control rate of 2010 volume 400 FiO2 35% PEEP of 5 ABG showed a pO2 of 136 pCO2 40 pH of 7.33 her renal functioning is a bit worse today, however I will increase her fluid status and I will hold the Lasix. CPK continues to trend down his and that 7000 range. WBC count is 19.6 hemoglobin is 9.3, basic metabolic profile is normal bicarb is 19 BUN is 47 creatinine 2.5, CPK is 7950 Objective - Vital Signs Vital signs: Vital Signs Temp 98 F 06/03/23 12:15 Pulse 99 06/03/23 13:30 Resp 20 06/03/23 13:30 BP 92/62 06/03/23 10:00 Pulse Ox 100 06/03/23 13:30 FiO2 35 06/03/23 12:00 Intake & Output 06/02/23 06/03/23 06/03/23 18:59 06:59 18:59 Intake Total 2144.740 1136.896 956.444 Output Total 1365 1415 2025 Balance 779.740 -278.104 -1068.556 Weight 83.4 kg Intake: IV 1457 487 202 0.9 NS KVO 230 360 60 ARTERIAL LINE & CVP 72 27 42 Ampicillin-Sulbactam 3 gm 100 In Sodium Chloride 0.9% 100 ml @ 200 mls/hr IVPB Q12HR [facility] Rx#:[id number] Ampicillin-Sulbactam 3 gm 100 100 In Sodium Chloride 0.9% 100 ml @ 200 mls/hr IVPB Q12HR@1000,2200 [facility] Rx#: [id number] Calcium Gluconate in NaCl 0 2 gm In Saline 1 100ml. bag @ 100 mls/hr IVPB ONCE ONE Rx#:[id number] Calcium Gluconate in NaCl 100 2 gm In Saline 1 100ml. bag @ 100 mls/hr IVPB ONCE ONE Rx#:[id number] Magnesium Sulfate-D5w Pmx 100 1 gm In Dextrose/Water 1 100ml.bag @ 100 mls/hr IVPB Q1H [facility] Rx#: [id number] Potassium Chloride 10 meq 200 In Water For Injection 1 100ml.bag @ 100 mls/hr IVPB Q1H [facility] Rx#: [id number] Sodium Chloride 0.9% 1, 455 000 ml @ 100 mls/hr IV . Q10H [facility] Rx#:[id number] metroNIDAZOLE-NS PMX 500 200 mg In Saline 1 100ml.bag @ 100 mls/hr IVPB Q6H [facility] Rx#:[id number] Intake, IV Titration 57.740 9.896 514.444 Amount Calcium Gluconate in NaCl 100 2 gm In Saline 1 100ml. bag @ 100 mls/hr IVPB ONCE ONE Rx#:[id number] DAPTOmycin 350 mg In 50 Sodium Chloride 0.9% 50 ml @ 100 mls/hr IVPB Q48H [facility] Rx#:[id number] Norepinephrine 32 mg In 9.069 9.896 23.753 Sodium Chloride 0.9% 218 ml @ 0.03 MCG/KG/MIN 0. 778 mls/hr IV .Q24H [facility] Rx#:[id number] Sodium Chloride 0.9% 1, 340 000 ml @ 100 mls/hr IV . Q10H [facility] Rx#:[id number] propofoL 1,000 mg In 48.671 0.691 Empty Bag 1 bag @ 15 MCG/ KG/MIN 4.98 mls/hr IV . Q20H5M [facility] Rx#:[id number] Tube Feeding 540 550 150 Other 90 90 90 Output: Gastric Drainage 1300 Drainage 80 Left Lower Abdomen 80 Urine 1035 1165 725 Stool 250 250 Other: Voiding Method Indwelling Catheter Indwelling Catheter ABP, PAP, CO, CI - Last Documented Arterial Blood Pressure 93/56 - Exam Physical Exam: Revealed 63-year-old female, intubated mechanically ventilated, orogastric tube and endotracheal tube are intact. Head: Atraumatic, normocephalic. HEENT:[Neck is supple.] [No neck masses.] [No thyromegaly.] [No JVD.] Chest: [Minimal crackles at the bases symmetrical chest expansion bilaterally. Cardiac Exam: [Normal S1 and S2, no S3 gallop, no murmur.] Abdomen: [Postsurgical, soft, nontender, diminished bowel sounds. Wound VAC noted PABLO drain noted ostomy seems to be functional. Extremities: Continues to have mottling of lower extremities, abdominal area, and diminished distal pulses Neurological Exam: Patient is awake, in no distress, following simple instructions like wiggling toes and squeezing hands. Psychiatric: Depressed mood. Affect seems to follow instructions Skin: Mottling of the skin is noted especially in lower extremities and in the abdominal area - Labs CBC & Chem 7: 06/03/23 04:45 06/03/23 04:45 Labs: Abnormal Lab Results - Last 24 Hours (Table) 06/02/23 06/02/23 06/03/23 Range/Units 16:28 17:04 00:38 WBC (3.8-10.6) k/uL RBC (3.80-5.40) m/uL Hgb (11.4-16.0) gm/dL Hct (34.0-46.0) % RDW (11.5-15.5) % Plt Count (150-450) k/uL Neutrophils # (1.3-7.7) k/uL Lymphocytes # (1.0-4.8) k/uL ABG pH (7.35-7.45) ABG pO2 (83-108) mmHg ABG O2 Saturation (94-97) % Potassium 3.4 L (3.5-5.1) mmol/L Chloride (98-107) mmol/L Carbon Dioxide (22-30) mmol/L BUN (7-17) mg/dL Creatinine (0.52-1.04) mg/dL Glucose (74-99) mg/dL POC Glucose (mg/dL) 149 H 121 H (70-110) mg/dL Calcium (8.4-10.2) mg/dL Ionized Calcium Ines (4.5-5.3) mg/dL Total Bilirubin (0.2-1.3) mg/dL AST (14-36) U/L ALT (4-34) U/L Alkaline Phosphatase (38-126) U/L Creatine Kinase (30-135) U/L Total Protein (6.3-8.2) g/dL Albumin (3.5-5.0) g/dL 06/03/23 06/03/23 06/03/23 Range/Units 04:43 04:45 04:45 WBC 19.6 H (3.8-10.6) k/uL RBC 3.23 L (3.80-5.40) m/uL Hgb 9.3 L (11.4-16.0) gm/dL Hct 29.2 L (34.0-46.0) % RDW 17.4 H (11.5-15.5) % Plt Count 51 L (150-450) k/uL Neutrophils # 18.7 H (1.3-7.7) k/uL Lymphocytes # 0.4 L (1.0-4.8) k/uL ABG pH (7.35-7.45) ABG pO2 (83-108) mmHg ABG O2 Saturation (94-97) % Potassium 3.4 L (3.5-5.1) mmol/L Chloride 112 H (98-107) mmol/L Carbon Dioxide 19 L (22-30) mmol/L BUN 47 H (7-17) mg/dL Creatinine 2.52 H (0.52-1.04) mg/dL Glucose 110 H (74-99) mg/dL POC Glucose (mg/dL) 118 H (70-110) mg/dL Calcium 5.8 L* (8.4-10.2) mg/dL Ionized Calcium Ines 3.7 L (4.5-5.3) mg/dL Total Bilirubin 1.8 H (0.2-1.3) mg/dL AST 338 H (14-36) U/L ALT 145 H (4-34) U/L Alkaline Phosphatase 154 H (38-126) U/L Creatine Kinase 7950 H* (30-135) U/L Total Protein 4.0 L (6.3-8.2) g/dL Albumin 1.7 L (3.5-5.0) g/dL 06/03/23 Range/Units 06:28 WBC (3.8-10.6) k/uL RBC (3.80-5.40) m/uL Hgb (11.4-16.0) gm/dL Hct (34.0-46.0) % RDW (11.5-15.5) % Plt Count (150-450) k/uL Neutrophils # (1.3-7.7) k/uL Lymphocytes # (1.0-4.8) k/uL ABG pH 7.33 L (7.35-7.45) ABG pO2 136 H (83-108) mmHg ABG O2 Saturation 98.4 H (94-97) % Potassium (3.5-5.1) mmol/L Chloride (98-107) mmol/L Carbon Dioxide (22-30) mmol/L BUN (7-17) mg/dL Creatinine (0.52-1.04) mg/dL Glucose (74-99) mg/dL POC Glucose (mg/dL) (70-110) mg/dL Calcium (8.4-10.2) mg/dL Ionized Calcium Ines (4.5-5.3) mg/dL Total Bilirubin (0.2-1.3) mg/dL AST (14-36) U/L ALT (4-34) U/L Alkaline Phosphatase (38-126) U/L Creatine Kinase (30-135) U/L Total Protein (6.3-8.2) g/dL Albumin (3.5-5.0) g/dL Microbiology - Last 24 Hours (Table) 05/31/23 14:31 Blood Culture - Preliminary Blood 05/31/23 11:41 Blood Culture - Preliminary Blood Assessment and Plan Assessment: Impression: Septic shock secondary to acute pneumoperitoneum and abdominal sepsis Acute fecal peritonitis Chronic constipation with previous right and left colectomy and colostomy with subsequent reversal Acute kidney injury secondary to above Acute rhabdomyolysis History of underlying COPD Acute hypoxic and hypercapnic respiratory failure secondary to above History of appendiceal carcinoma Remote history of pulmonary embolism, not anticoagulated History of cervical C3 stenosis Degenerative joint disease Chronic medical debility, prison resident Acute thrombocytopenia secondary to sepsis Severe protein calorie malnutrition with hypoproteinemia and hypoalbuminemia Hypertension most likely secondary to hypovolemia noted today, will likely improve with more fluids and holding diuretics Recommendation: Continue ventilatory support, I was about to extubate the patient until she developed hypotension after suctioning her stomach. And she developed hypotens ion. Remind you patient tolerated pressure support and CPAP well over the last 24 hours almost. And I was about to extubate the patient. However that did not happen. Patient will be placed back on her mode of mechanical ventilation/assist-control mode/volume control Continue daily sedation interruption and sedation holidays. Continue pressors and titrate accordingly Continue nutritional support, patient is on vital HP Resume IV fluid at 100 mL per hour and discontinue diuretics Continue GI and DVT prophylaxis subcu heparin Continue bronchodilators Continue antibiotics and/Zosyn and Flagyl, and daptomycin Repeat blood cultures from 05/31 remain negative so far Remains critically ill Critical care time is over 30 minutes Time with Patient: Greater than 30
--- NOTE | 2023-06-03 14:27 | P.PN ---
Subjective Progress Note Date: 06/03/23 CHIEF COMPLAINT: Perforated colorectal anastomosis HISTORY OF PRESENT ILLNESS: Patient is postop day #7 status post exploratory laparotomy, subtotal colectomy with partial proctectomy, drainage of pelvic a bscess, and ileostomy, open fecal disimpaction and left salpingo-oophorectomy. Patient remains in the ICU and on mechanical ventilation. She is able to open her eyes. Patient remains on Levophed. Critical care service is trying to extubate patient today. Patient did have a 1300 mL residual. Tube Feedings are currently on hold. Afebrile. WBC 19.6 PHYSICAL EXAM: VITAL SIGNS: Reviewed GENERAL: Well-developed in no acute distress. HEENT: No sclera icterus. Moist buccal mucosa. Head is atraumatic, normocephalic. No nasal drainage. NECK: Supple without lymphadenopathy. CHEST: Non-labored respirations and equal bilateral excursions. CARDIOVASCULAR: Palpable 2+ radial pulses. ABDOMEN: Soft. Distended. Ostomy with stool. Ostomy is pink. Patient has bruising on abdominal wall between the ostomy and Prevana wound vac. Wound vac is intact. NG tube in place MUSCULOSKELETAL: No clubbing or cyanosis. NEUROLOGIC: Patient opening her eyes. No focal or lateralizing signs. Cranial nerves II through XII grossly intact. SKIN: Mottling feet bilaterally ASSESSMENT: 1. Perforated colorectal anastomosis due to colorectal stenosis 2. Bowel ischemia 3. Fecal impaction 4. Chronic constipation 5. History of colostomy reversal 6. Gastroesophageal reflux disease 7. Hypothyroidism 8. Chronic obstructive pulmonary disease 9. History of pulmonary embolism 10. Tobacco abuse disorder 11. 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 Fecal peritonitis 15. Pelvic abscess 16. Sepsis with septic shock 17. Adhesive band 18. Leukocytosis PLAN: -Continue ICU management -Vent weaning management per critical care service -Continue supportive care -Continue antibiotics -Hold tube feeds for high residual. Agree with adding Reglan for possible ileus -We will waffle boots to protect feet and heels -DVT prophylaxis subcu heparin Physician House Designer note has been reviewed by physician. Signing provider agrees with the documented findings, assessment, and plan of care. Objective - Vital Signs Vital signs: Vital Signs Temp 97.8 F 06/03/23 08:00 Pulse 101 H 06/03/23 11:55 Resp 20 06/03/23 11:00 BP 92/62 06/03/23 10:00 Pulse Ox 100 06/03/23 11:00 FiO2 35 06/03/23 12:00 Intake & Output 06/02/23 06/03/23 06/03/23 18:59 06:59 18:59 Intake Total 2144.740 1136.896 824.444 Output Total 1365 1415 1800 Balance 779.740 -278.104 -975.556 Weight 83.4 kg Intake: IV 1457 487 190 0.9 NS KVO 230 360 60 ARTERIAL LINE & CVP 72 27 30 Ampicillin-Sulbactam 3 gm 100 In Sodium Chloride 0.9% 100 ml @ 200 mls/hr IVPB Q12HR [facility] Rx#:[id number] Ampicillin-Sulbactam 3 gm 100 100 In Sodium Chloride 0.9% 100 ml @ 200 mls/hr IVPB Q12HR@1000,2200 [facility] Rx#: [id number] Calcium Gluconate in NaCl 0 2 gm In Saline 1 100ml. bag @ 100 mls/hr IVPB ONCE ONE Rx#:[id number] Calcium Gluconate in NaCl 100 2 gm In Saline 1 100ml. bag @ 100 mls/hr IVPB ONCE ONE Rx#:[id number] Magnesium Sulfate-D5w Pmx 100 1 gm In Dextrose/Water 1 100ml.bag @ 100 mls/hr IVPB Q1H [facility] Rx#: [id number] Potassium Chloride 10 meq 200 In Water For Injection 1 100ml.bag @ 100 mls/hr IVPB Q1H [facility] Rx#: [id number] Sodium Chloride 0.9% 1, 455 000 ml @ 100 mls/hr IV . Q10H [facility] Rx#:[id number] metroNIDAZOLE-NS PMX 500 200 mg In Saline 1 100ml.bag @ 100 mls/hr IVPB Q6H [facility] Rx#:[id number] Intake, IV Titration 57.740 9.896 414.444 Amount Calcium Gluconate in NaCl 100 2 gm In Saline 1 100ml. bag @ 100 mls/hr IVPB ONCE ONE Rx#:[id number] DAPTOmycin 350 mg In 50 Sodium Chloride 0.9% 50 ml @ 100 mls/hr IVPB Q48H [facility] Rx#:[id number] Norepinephrine 32 mg In 9.069 9.896 23.753 Sodium Chloride 0.9% 218 ml @ 0.03 MCG/KG/MIN 0. 778 mls/hr IV .Q24H [facility] Rx#:[id number] Sodium Chloride 0.9% 1, 240 000 ml @ 100 mls/hr IV . Q10H [facility] Rx#:[id number] propofoL 1,000 mg In 48.671 0.691 Empty Bag 1 bag @ 15 MCG/ KG/MIN 4.98 mls/hr IV . Q20H5M [facility] Rx#:[id number] Tube Feeding 540 550 150 Other 90 90 70 Output: Gastric Drainage 1300 Drainage 80 Left Lower Abdomen 80 Urine 1035 1165 500 Stool 250 250 Other: Voiding Method Indwelling Catheter Indwelling Catheter ABP, PAP, CO, CI - Last Documented Arterial Blood Pressure 116/69 - Labs CBC & Chem 7: 06/03/23 04:45 06/03/23 04:45 Labs: Abnormal Lab Results - Last 24 Hours (Table) 06/02/23 06/02/23 06/03/23 Range/Units 16:28 17:04 00:38 WBC (3.8-10.6) k/uL RBC (3.80-5.40) m/uL Hgb (11.4-16.0) gm/dL Hct (34.0-46.0) % RDW (11.5-15.5) % Plt Count (150-450) k/uL Neutrophils # (1.3-7.7) k/uL Lymphocytes # (1.0-4.8) k/uL ABG pH (7.35-7.45) ABG pO2 (83-108) mmHg ABG O2 Saturation (94-97) % Potassium 3.4 L (3.5-5.1) mmol/L Chloride (98-107) mmol/L Carbon Dioxide (22-30) mmol/L BUN (7-17) mg/dL Creatinine (0.52-1.04) mg/dL Glucose (74-99) mg/dL POC Glucose (mg/dL) 149 H 121 H (70-110) mg/dL Calcium (8.4-10.2) mg/dL Ionized Calcium Ines (4.5-5.3) mg/dL Total Bilirubin (0.2-1.3) mg/dL AST (14-36) U/L ALT (4-34) U/L Alkaline Phosphatase (38-126) U/L Creatine Kinase (30-135) U/L Total Protein (6.3-8.2) g/dL Albumin (3.5-5.0) g/dL 06/03/23 06/03/23 06/03/23 Range/Units 04:43 04:45 04:45 WBC 19.6 H (3.8-10.6) k/uL RBC 3.23 L (3.80-5.40) m/uL Hgb 9.3 L (11.4-16.0) gm/dL Hct 29.2 L (34.0-46.0) % RDW 17.4 H (11.5-15.5) % Plt Count 51 L (150-450) k/uL Neutrophils # 18.7 H (1.3-7.7) k/uL Lymphocytes # 0.4 L (1.0-4.8) k/uL ABG pH (7.35-7.45) ABG pO2 (83-108) mmHg ABG O2 Saturation (94-97) % Potassium 3.4 L (3.5-5.1) mmol/L Chloride 112 H (98-107) mmol/L Carbon Dioxide 19 L (22-30) mmol/L BUN 47 H (7-17) mg/dL Creatinine 2.52 H (0.52-1.04) mg/dL Glucose 110 H (74-99) mg/dL POC Glucose (mg/dL) 118 H (70-110) mg/dL Calcium 5.8 L* (8.4-10.2) mg/dL Ionized Calcium Ines 3.7 L (4.5-5.3) mg/dL Total Bilirubin 1.8 H (0.2-1.3) mg/dL AST 338 H (14-36) U/L ALT 145 H (4-34) U/L Alkaline Phosphatase 154 H (38-126) U/L Creatine Kinase 7950 H* (30-135) U/L Total Protein 4.0 L (6.3-8.2) g/dL Albumin 1.7 L (3.5-5.0) g/dL 06/03/23 Range/Units 06:28 WBC (3.8-10.6) k/uL RBC (3.80-5.40) m/uL Hgb (11.4-16.0) gm/dL Hct (34.0-46.0) % RDW (11.5-15.5) % Plt Count (150-450) k/uL Neutrophils # (1.3-7.7) k/uL Lymphocytes # (1.0-4.8) k/uL ABG pH 7.33 L (7.35-7.45) ABG pO2 136 H (83-108) mmHg ABG O2 Saturation 98.4 H (94-97) % Potassium (3.5-5.1) mmol/L Chloride (98-107) mmol/L Carbon Dioxide (22-30) mmol/L BUN (7-17) mg/dL Creatinine (0.52-1.04) mg/dL Glucose (74-99) mg/dL POC Glucose (mg/dL) (70-110) mg/dL Calcium (8.4-10.2) mg/dL Ionized Calcium Ines (4.5-5.3) mg/dL Total Bilirubin (0.2-1.3) mg/dL AST (14-36) U/L ALT (4-34) U/L Alkaline Phosphatase (38-126) U/L Creatine Kinase (30-135) U/L Total Protein (6.3-8.2) g/dL Albumin (3.5-5.0) g/dL Microbiology - Last 24 Hours (Table) 05/31/23 14:31 Blood Culture - Preliminary Blood 05/31/23 11:41 Blood Culture - Preliminary Blood
--- NOTE | 2023-06-03 15:58 | P.PN ---
Progress Note - Text Progress Note Date: 06/03/23 - Chief Complaint Acute abdomen - History of Present Illness This is a 63-year-old patient, who had severe ileus of right and left: And underwent right and left colectomy with end colostomy by Dr. Worthington on 09/21/2022. on January 29/2023 underwent exploratory laparotomy with takedown of colostomy and takedown of splenic flexure with partial colectomy and repair of incisional hernia and lysis of adhesions by Dr. Worthington. Following that pat jarednt had a three-week stay in the hospital for protracted ileus. And finally was discharged on February 25. Patient then presented to the ER on the evening of May 26. Patient presented here from [facility] [place]. Per EMS report patient had a bowel movement for about 3 days. And increasing abdominal discomfort. Patient has remained nonambulatory. Computed tomography scan in the ER showed large pneumoperitoneum. Large fecal bolus of the rectum. Gallstones. Ascites. Patient seen by Dr. Parikh from general surgery.. Patient was taken to the OR for exploratory laboratory yesterday and had subtotal colectomy with partial proctectomy carried out. About 200 mL of pelvic abscess fecal peritonitis was drained. End ileostomy was carried out. Incisional wound VAC prerenal was placed. Left salpingo-oophorectomy was done. Patient continues clean ICU. On the ventilator intubated. FiO2 40 and a PEEP of 5. Drips include IV vasopressor, levo fed, propofol, bicarbonate. No output from the ileostomy bag. 05/29/2023: ICU. IV propofol. FiO2 50 PEEP of 5. Intubated. Remains on IV Zosyn, IV Flagyl. Extremity bilateral skin mottling. Extremities are cold. On IV vasopressin, IV norepinephrine. Sinus rhythm. No output in the ileostomy. Wound VAC in place. Serosanguineous output out of the PABLO drain. Family at bedside. 05/30/2023: ICU. Intubated. FiO2 40 to PEEP of 5. with the patient DO NOT RESUSCITATE yesterday. Drips include propofol, norepinephrine, vasopressin. 2 feeding started at 10 mL an hour. Putting out liquid stools over the ileostomy bag. No output from the PABLO drain. Patient seen by vascular Dr. Giliberto. Currently no further intervention. 05/31/1933: ICU. Intubated. FiO2 35 to PEEP of 5. Sinus rhythm. It's include norepinephrine, propofol, vasopressin. NG tube. 2 feeding at 10 mL an hour. That has been output from the ileostomy bag. Repeat blood cultures ordered. June 01: ICU. Intubated. FiO2 35 PEEP of 5. Sinus rhythm. Off propofol. Eyes open. IV drips include norepinephrine and vasopressin. CPAP today. 2 feeding at 20 mL an hour. I'll report to the ileostomy bag. No output through the Provena. PABLO drain about 20-40 mL in 24 hours.-Serous June 02: ICU. Intubated. FiO2 35 and a PEEP of 5. Drips include IV norepinephrine, vasopressin, propofol. Patient lasted for CPAP about 3 hours yesterday. Getting IV Lasix. 2 feeding increased to 50 mL an hour. Ileostomy putting out stool. PABLO drain put out about 40 mL every 12 hours. Serous. IV calcium gluconate given. June 03: ICU. Intubated. FiO2 35 and a PEEP of 5. Patient been on CPAP for 12 hours since yesterday. Current drips include norepinephrine and vasopressin. Patient had 1300 mL residual gastric. Taken out. PABLO drain about 80 mL sinus output in the last 12 hours. Ileostomy working well. Edema present. Regular matted Active Medications Hydrocodone Bitart/Acetaminophen (Hydrocodone/Apap 5-325mg 1 Each Tab) 1 each PO Q6HR PRN PRN Reason: Moderate to Severe Pain (4-10) Last Admin: 06/03/23 07:20 Dose: 1 each Albuterol/Ipratropium (Ipratropium-Albuterol 3 Ml Neb) 3 ml INHALATION RT-Q4H [facility] Last Admin: 06/03/23 15:13 Dose: 3 ml Chlorhexidine Gluconate (Chlorhexidine Gluconate 15 Ml Cup) 15 ml MUCOUS MEM BID [facility] Last Admin: 06/03/23 08:14 Dose: 15 ml Dextrose/Water (Dextrose 50% Syringe 50 Ml) 25 ml IVP PER PROTOCOL PRN; Protocol PRN Reason: Hypoglycemia Last Admin: 05/30/23 15:48 Dose: 25 ml Dextrose/Water (Dextrose 50% Syringe 50 Ml) 50 ml IVP PER PROTOCOL PRN; Protocol PRN Reason: Hypoglycemia Ergocalciferol (Ergocalciferol 1,250 Mcg (50,000 Iu) Capsule) 1,250 mcg PO Q72H [facility] Last Admin: 06/02/23 09:49 Dose: 1,250 mcg Hydromorphone HCl (Hydromorphone 1 Mg/Ml 1 Ml Syringe) 1 mg IVP Q3HR PRN PRN Reason: Moderate to Severe Pain (4-10) Last Admin: 06/03/23 04:25 Dose: 1 mg Metronidazole 500 mg/ IV (Solution) 100 mls @ 100 mls/hr IVPB Q6H [facility]; Protocol Last Admin: 06/03/23 11:11 Dose: 100 mls/hr Norepinephrine Bitartrate 32 (mg/ Sodium Chloride) 250 mls @ 0.778 mls/hr IV .Q24H [facility]; Protocol Last Titration: 06/03/23 15:16 Dose: 0.13 mcg/kg/min, 3.372 mls/hr Propofol 1,000 mg/ IV Solution 100 mls @ 4.98 mls/hr IV .Q20H5M [facility]; Protocol Last Titration: 06/03/23 11:15 Dose: 15 mcg/kg/min, 4.98 mls/hr Vasopressin 60 unit/ Sodium (Chloride) 153 mls @ 4.59 mls/hr IV .Q24H [facility]; Protocol Last Admin: 06/02/23 08:20 Dose: 0.03 units/min, 4.59 mls/hr Sodium Chloride (Saline 0.9%) 1,000 mls @ 100 mls/hr IV .Q10H [facility] Last Admin: 06/03/23 13:09 Dose: 100 mls/hr Ampicillin Sodium/Sulbactam (Sodium 3 gm/ Sodium Chloride) 100 mls @ 200 mls/hr IVPB Q12HR@1000,2200 [facility]; Protocol Last Admin: 06/03/23 10:24 Dose: 200 mls/hr Daptomycin 350 mg/ Sodium (Chloride) 50 mls @ 100 mls/hr IVPB Q48H [facility]; Protocol Last Admin: 06/03/23 08:14 Dose: 100 mls/hr Metoclopramide HCl (Metoclopramide 10 Mg Tab) 10 mg PO AC-TID [facility] Last Admin: 06/03/23 13:06 Dose: 10 mg Miscellaneous Information (Magnesium Replacement Protocol 1 Each Misc) 1 each MISCELLANE DAILY PRN; Protocol PRN Reason: Per Protocol Miscellaneous Information (Phosphorus Replacement Protoco 1 Each [facility]) 1 each MISCELLANE DAILY PRN; Protocol PRN Reason: Per Protocol Miscellaneous Information (Potassium Replacement Protocol 1 Each Misc) 1 each MISCELLANE DAILY PRN; Protocol PRN Reason: Per Protocol Naloxone HCl (Naloxone 0.4 Mg/Ml 1 Ml Vial) 0.2 mg IV Q2M PRN PRN Reason: Opioid Reversal Ondansetron HCl (Ondansetron 4 Mg/2 Ml Vial) 4 mg IVP Q8HR PRN PRN Reason: Nausea And Vomiting Pantoprazole Sodium (Pantoprazole 40 Mg/10 Ml Vial) 40 mg IV DAILY [facility] Last Admin: 06/03/23 08:14 Dose: 40 mg Past medical history to include: Hypothyroid, osteomyelitis, COPD, left colectomy with end colostomy Social history: Currently at [facility]. Smokes about half a pack a day since age 21, up to February 2023.. Doesn't really walk currently. Physical examination: VITAL SIGNS: 98, 96, 20, 10 1 x 65, 100% on the ventilator GENERAL:, In bed, sedated. Persistent lower extremity mottling. EYES: Pupils equal. Conjunctiva pale HEENT: External appearance of nose and ears normal, oral cavity dry mucous membranes. ET tube. NECK: JVD unable to assess; masses not palpable. HEART: First and second heart sounds are normal; no edema. LUNGS: Respiratory rate increased; decreased breath sounds. ABDOMEN: Soft,, nontender Liver spleen not palpable, no masses palpable. Midline Provena. Left-sided PABLO drain Right-sided ileostomy bag with soft stools PSYCH: Does open eyes MUSCULOSKELETAL:No Clubbing/cyanosis;muscles-grossly intact. Mottling of the lower extremities. Cold lower extremity. INVESTIGATIONS, reviewed in the clinical context: June 03: White count 9.6 hemoglobin 9.3 platelets 51 sodium 142 potassium 3.4 BUN 47 creatinine 2.5 to potassium 5.8 albumin 1.7 CPK 7950 AST 338 ALT 145 June 02: White count 19.2 hemoglobin 9.3 platelets 47 sodium 141 potassium 3.4 BUN 4622.29 CPK 96225 June 01: White count 19.3 hemoglobin 9.5 platelets 52 sodium 140 BUN 46 creatinine 2.34 potassium 5.3 CPK 22859 May 31: WBC 16.7 hemoglobin 9.9 platelets 57 sodium 139 potassium 3.9 BUN 46 creatinine 2.24 CPK 59138 Peritoneal fluid: E. coli, enterococcus raffinosus Blood culture [May 26]: E. coli May 30: White count 9.2 hemoglobin 9.7 platelets 59 potassium 3.8 BUN 43 creatinine 1.89 ionized calcium 3.5 CPK 91775 May 29: White count 7.1 hemoglobin 9.7 platelets 59 potassium 3.2 BUN 41 and creatinine 1.59 05/28/2023: White count 4.4 hemoglobin 10.6 platelets 161 2139 potassium 4.5 BUN 40 creatinine 1.67 bicarb 17 calcium 5.9 ionized calcium 3.6 magnesium 1.3 Previous labs: Creatinine 1.28 on 05/26/2023. 0.77 on 02/25/2023. EKG tracing personally reviewed by me-normal sinus rhythm. P pulmonale. Nonspecific T-wave changes. Chest x-ray film personally reviewed by me-hyperinflation CT abdomen pelvis [May 26] large pneumoperitoneum. Large fecal bolus of the rectum. Fecal debris within the redundant sigmoid colon. Because of the volvulus. Cholelithiasis. Ascites. Assessment and plan: -Acute bowel perforation leading to pneumoperitoneum and septic peritonitis. Paternal culture Cultures positive-. coli, enterococcus raffinosus: Slow to respond IV Flagyl. IV Unasyn. IV daptomycin -Septic shock from above: Severe, slow to respond IV vasopressin, IV levo fed. -Acute metabolic acidosis multifactorial including renal failure: Better -Acute kidney injury, ATN from septic shock.: Slow to respond Follow with nephrology -Suspect PAD in a patient who smoker Follow with vascular. No current intervention. -Hypocalcemia: Controlled Replace with calcium gluconate -Acute rhabdomyolysis, multifactorial: Slow improvement -Acute thrombocytopenia secondary to sepsis: Slow to respond Treat underlying infection -Acute hypoxic respiratory failure, requiring ventilator support: Slow to respond -Exploratory laparotomy: Subtotal colectomy with partial proctectomy; Drainage of pelvic abscess/fecal peritonitis, 200-mL; End ileostomy; Placement of round #19 garfield rodriguez drain; Placement of incisional wound vac, 20-cm, PREVENa; Left salpingo-oophorectomy with Dr. Mariely Parikh on May 27. -Reversal of colostomy in February 2023. Right and left colectomy with end colostomy in September [address] Worthington -Acute postprocedure blood loss anemia, expected from surgery contributing to hypotension: Admission hemoglobin 14.9. -GERD PPI -Severe hypocalcemia Replace -Acute hepatitis likely ischemic Follow LFTs -Chronic medical debility from surgery. Other medical conditions. per [facility] patient has recently been nonambulatory. -Hypothyroid Levothyroxin -COPD in a previous smoker DuoNeb every 4 -Anemia of chronic disease hemoglobin 11.3 Iron deficiency from blood loss. -DO NOT RESUSCITATE IV daptomycin. IV Unasyn. IV Flagyl. Pressor support. Critical.
[2023-06-03] MEDS: VASOPRESSIN 60 UNIT in SODIUM CHLORIDE 0.9% 150 ML IV SCH (16:02)
[2023-06-03] MEDS: NOREPINEPHRINE 32 MG in SODIUM CHLORIDE 0.9% 218 ML IV SCH (17:56)
[2023-06-03 18:18] LABS: Glucose,Whole Blood 92 mg/dL (70-110)
[2023-06-04] MEDS: IPRATROPIUM-ALBUTEROL 3 ML NEB INHALATION SCH ×7 (00:25→23:26)
[2023-06-04] MEDS: HYDROmorphone 1 MG/ML 1 ML SYRINGE IVP PRN ×2 (02:12→14:12)
[2023-06-04 06:22] LABS: ABG Base Excess -5.3 mmol/L; ABG HCO3 20 mmol/L (21-25); ABG Oxygen Saturation 98.3 % (94-97); ABG PCO2 37 mmHg (35-45); ABG PH 7.35 (7.35-7.45); ABG PO2 133 mmHg (83-108); ABG TCO2 22 mmol/L (19-24); Allen Test Performed? Yes
[2023-06-04 06:30] LABS: Glucose,Whole Blood 103 mg/dL (70-110)
[2023-06-04] MEDS: metroNIDAZOLE-NS PMX 500 MG in SALINE 1 100ML.BAG IVPB SCH ×3 (06:34→17:41)
[2023-06-04] MEDS: SODIUM CHLORIDE 0.9% 1,000 ML IV SCH ×2 (06:39→12:55)
[2023-06-04 07:22] LABS: Anisocytosis Slight; HCT 27.8 % (34.0-46.0); HGB 8.9 gm/dL (11.4-16.0); MCHC 32.1 g/dL (31.0-37.0); MCV 90.1 fL (80.0-100.0); Mean Platelet Volume 10.7; RBC 3.08 m/uL (3.80-5.40); RDW 17.5 % (11.5-15.5); WBC 19.3 k/uL (3.8-10.6)
[2023-06-04 07:32] LABS: Platelet Count 104 k/uL (150-450)
[2023-06-04 07:41] LABS: ALT 138 U/L (4-34); AST 288 U/L (14-36); African American GFR (CKD) 23 (>60 ml/min/1.73 sqM); Albumin 1.7 g/dL (3.5-5.0); Alkaline Phosphatase 157 U/L (38-126); Anion Gap 10 mmol/L; Blood Urea Nitrogen 49 mg/dL (7-17); Carbon Dioxide 18 mmol/L (22-30); Chloride 116 mmol/L (98-107); Glucose 90 mg/dL (74-99); Magnesium 1.7 mg/dL (1.6-2.3); Non-African American GFR(CKD) 20 (>60 ml/min/1.73 sqM); Potassium 3.2 mmol/L (3.5-5.1); Sodium 144 mmol/L (137-145); Total Bilirubin 1.3 mg/dL (0.2-1.3); Total Protein 3.9 g/dL (6.3-8.2)
[2023-06-04 07:47] LABS: Calcium 5.9 mg/dL (8.4-10.2)
[2023-06-04] MEDS ORDERED: MAGNESIUM SULFATE-D5W PMX 1 GM in DEXTROSE/WATER 1 100ML.BAG IVPB ONE (08:20)
[2023-06-04 08:29] LABS: Creatine Kinase 6574 U/L (30-135)
--- NOTE | 2023-06-04 08:36 | XR ---
EXAMINATION TYPE: XR chest 1V portable DATE OF EXAM: 06/04/2023 COMPARISON: 06/03/2023 HISTORY: Shortness of breath TECHNIQUE: Single frontal view of the chest is obtained. FINDINGS: Interstitial pattern with bilateral consolidation pleural effusion. ET tube, NG tube and c entral line stable. Atherosclerotic change aorta. No sizable pneumothorax. Underlying COPD. Throughou t the shoulders with diffuse osteopenia. Hypertrophic degenerative changes of the spine. IMPRESSION: Interval bilateral consolidation/pleural effusion. Correlate for CHF otherwise consider pneumonia.
[2023-06-04] MEDS: PANTOPRAZOLE 40 MG/10 ML VIAL IV SCH (09:13)
[2023-06-04] MEDS: AMPICILLIN-SULBACTAM 3 GM in SODIUM CHLORIDE 0.9% 100 ML IVPB SCH ×2 (09:13→19:54)
[2023-06-04] MEDS: CHLORHEXIDINE GLUCONATE 15 ML CUP MUCOUS MEM SCH (09:13)
[2023-06-04] MEDS: POTASSIUM BICARBONATE/CIT AC 20 MEQ TABLET.EFF PO SCH ×3 (09:13→09:30)
[2023-06-04] MEDS: METOCLOPRAMIDE 10 MG TAB PO SCH ×3 (09:23→18:00)
--- NOTE | 2023-06-04 10:24 | P.PN ---
Subjective patient is seen for follow-up for acute kidney injury. Patient remains on the vent Urine output increased with Lasix. Currently at about 75-100 mL per hour FiO2 at 35%. Sedation is off and patient is awake CK down to 6574 today. Objective - Vital Signs Vital signs: Vital Signs Temp 97.8 F 06/04/23 08:00 Pulse 92 06/04/23 10:00 Resp 6 L 06/04/23 10:00 BP 107/68 06/04/23 09:00 Pulse Ox 100 06/04/23 10:00 FiO2 40 06/04/23 08:00 Intake & Output 06/03/23 06/04/23 06/04/23 18:59 06:59 18:59 Intake Total 1776.250 486.032 6683.389 Output Total 2425 740 210 Balance -648.750 -237.094 7183.389 Weight 83.6 kg Intake: IV 555 494 7555 0.9 NS KVO 60 ARTERIAL LINE & CVP 72 46 Ampicillin-Sulbactam 3 gm 100 100 50 In Sodium Chloride 0.9% 100 ml @ 200 mls/hr IVPB Q12HR@1000,2200 [facility] Rx#: [id number] Sodium Chloride 0.9% 1, 960 000 ml @ 100 mls/hr IV . Q10H [facility] Rx#:[id number] metroNIDAZOLE-NS PMX 500 100 100 100 mg In Saline 1 100ml.bag @ 100 mls/hr IVPB Q6H [facility] Rx#:[id number] Intake, IV Titration 1184.250 202.932 155.389 Amount Calcium Gluconate in NaCl 100 2 gm In Saline 1 100ml. bag @ 100 mls/hr IVPB ONCE ONE Rx#:[id number] DAPTOmycin 350 mg In 50 Sodium Chloride 0.9% 50 ml @ 100 mls/hr IVPB Q48H [facility] Rx#:[id number] Magnesium Sulfate-D5w Pmx 100 1 gm In Dextrose/Water 1 100ml.bag @ 100 mls/hr IVPB ONCE ONE Rx#: [id number] Norepinephrine 32 mg In 48.056 52.294 9.822 Sodium Chloride 0.9% 218 ml @ 0.03 MCG/KG/MIN 0. 778 mls/hr IV .Q24H [facility] Rx#:[id number] Sodium Chloride 0.9% 1, 840 100 000 ml @ 100 mls/hr IV . Q10H [facility] Rx#:[id number] Vasopressin 60 unit In 145.503 Sodium Chloride 0.9% 150 ml @ 0.03 UNITS/MIN 4.59 mls/hr IV .Q24H [facility] Rx#: [id number] propofoL 1,000 mg In 0.691 50.638 45.567 Empty Bag 1 bag @ 15 MCG/ KG/MIN 4.98 mls/hr IV . Q20H5M [facility] Rx#:[id number] Tube Feeding 150 Other 110 Output: Gastric Drainage 1300 Urine 1125 740 210 Other: Voiding Method Indwelling Catheter Indwelling Catheter Indwelling Catheter ABP, PAP, CO, CI - Last Documented Arterial Blood Pressure 79/50 - Exam Patient is on the vent. She is currently awake Examination of the heart S1 and S2 Examination of the lungs bilateral breath sounds are heard Abdomen is soft nontender Examination of lower extremities shows significant mottling bilaterally. Edema noted in upper and lower extremities extremities 2-3+. Patient is awake and following commands - Labs CBC & Chem 7: 06/04/23 06:30 06/04/23 06:30 Labs: Abnormal Lab Results - Last 24 Hours (Table) 06/04/23 06/04/23 06/04/23 Range/Units 06:17 06:30 06:30 WBC 19.3 H (3.8-10.6) k/uL RBC 3.08 L (3.80-5.40) m/uL Hgb 8.9 L (11.4-16.0) gm/dL Hct 27.8 L (34.0-46.0) % RDW 17.5 H (11.5-15.5) % Plt Count 104 L D (150-450) k/uL ABG pO2 133 H (83-108) mmHg ABG HCO3 20 L (21-25) mmol/L ABG O2 Saturation 98.3 H (94-97) % Potassium 3.2 L (3.5-5.1) mmol/L Chloride 116 H (98-107) mmol/L Carbon Dioxide 18 L (22-30) mmol/L BUN 49 H (7-17) mg/dL Creatinine 2.48 H (0.52-1.04) mg/dL Calcium 5.9 L* (8.4-10.2) mg/dL AST 288 H (14-36) U/L ALT 138 H (4-34) U/L Alkaline Phosphatase 157 H (38-126) U/L Creatine Kinase 6574 H* (30-135) U/L Total Protein 3.9 L (6.3-8.2) g/dL Albumin 1.7 L (3.5-5.0) g/dL Microbiology - Last 24 Hours (Table) 05/31/23 14:31 Blood Culture - Preliminary Blood 05/31/23 11:41 Blood Culture - Preliminary Blood Assessment and Plan Assessment: 1. Nonoliguric ATN, ischemic and toxic.underlying rhabdomyolysis. UA shows trace protein. Baseline creatinine around 0.8 mg/dL. renal function is improving 2. Septic shock secondary to perforated bowel 3. Anion gap metabolic acidosis secondary to acute kidney injury 4. Hypomagnesemia status post replacement 5. Acute hypoxic respiratory failure currently on the vent 6. Rhabdomyolysis, patient is not on statins. No large bruises noted. Mottling noted in the lower extremities. CK decreasing 7. Hypocalcemia associated with severe nutritional vitamin D deficiency currently being replaced. Plan: Decrease IV fluids Continue with vitamin D supplementation Continue with antibiotics.
--- NOTE | 2023-06-04 11:51 | XR ---
EXAMINATION TYPE: XR abdomen 1V DATE OF EXAM: 06/04/2023 COMPARISON: 02/24/2023 HISTORY: Pain TECHNIQUE: One view abdominal series FINDINGS: Hypertrophic and degenerative changes spine. There is severe left hip arthropathy with subluxation of the femoral head. Surgical elida are noted. There is a catheter overlying the lower abdomen. NG tu be is at the level of the gastric fundus. Large calcification right upper quadrant could be related to renal calculus measuring 1.2 cm. Dilated bowel loops are seen in nonspecific pattern. Assessment for free air nondiagnostic. There is bibasi lar infiltrate and small left effusion. IMPRESSION: 1. Nonspecific abdomen with IV compatible with postoperative ileus. 2. Bibasilar infiltrate and small left pleural effusion.
[2023-06-04 12:05] LABS: Glucose,Whole Blood 100 mg/dL (70-110)
[2023-06-04 12:06] LABS: ABG Base Excess -4.5 mmol/L; ABG HCO3 21 mmol/L (21-25); ABG PCO2 36 mmHg (35-45); ABG PH 7.37 (7.35-7.45); ABG PO2 159 mmHg (83-108); ABG TCO2 22 mmol/L (19-24)
[2023-06-04 12:27] LABS: ABG Oxygen Saturation 98.4 % (94-97); Allen Test Performed? no
[2023-06-04] MEDS ORDERED: CALCIUM GLUCONATE IN NACL 2 GM in SALINE 1 100ML.BAG IVPB ONE (12:27)
--- NOTE | 2023-06-04 12:28 | P.PN ---
Subjective Progress Note Date: 06/04/23 Principal diagnosis: Septic shock secondary to acute pneumoperitoneum and abdominal sepsis This is a 63-year-old female patient is currently being seen in the intensive care unit following abdominal surgery. The patient presented to the hospital because of abdominal pain and surgical consultation was obtained as the patient was found to have pneumoperitoneum. The patient had a CAT scan of the abdomen and pelvis that was done 05/26/2023 and the patient was found to have large pneumoperitoneum, large fecal bolus in the rectum. Fecal material was also seen in the sigmoid colon. There was evidence of cholelithiasis and ascites. Based on those findings, the patient was taken to the operating room today and the patient was given an LAD, subtotal colectomy, partial proctectomy and and ileostomy and open fecal decompression drainage of fecal peritonitis and left also also oophprectomy and salpingectomy. Postop, the patient was brought into the intensive care unit. She has already received a total of 5 L of IV fluids. Most recent BP is 81/50. The patient is also on pressors and norepinephrine is running at 0.25 mcg/kg/m. The patient has improved in her urine output which is producing approximately 40 mL an hour. She is fully sedated on propofol which is running at 50 mcg/kg/m. She is, comfortable and symptoms of the mechanical ventilator. I reviewed the initial blood gas that showed a pH of 7.12 with a pCO2 of 48 and a pO2 of more than 400. Subsequently, the patient was placed on assist-control mode at the rate of 26, tidal volume of 400 and FiO2 has been weaned down to 40% and she is currently on a PEEP of 5. The chest x-ray that was done following her abdominal surgery showed adequate positioning of 82. There is no evidence of any acute abnormalities. She has a left IJ triple-lumen catheter in place. The patient had evidence of renal failure, likely acute due to BUN of 47 and a creatinine of 1.78. She also has a mild anion gap metabolic acidosis. The lactic acid level was 2.7. Calcium level was low at 6.3. Serum albumin was 2.6 with a total protein of 4.8. The white cell cause of 3.2 with a hemoglobin of 11.4. She has a NG tube in place. Output from the NG is minimal are brown. Her white suppositive 3.2 with a hemoglobin of 11.4. She is currently covered with IV Zosyn and Flagyl. She was ordered started on a bicarb infusion. Note that the patient has had multiple abdominal surgeries in the past. She has undergone a previous right and left colectomy with end colostomy in September 2022 and subsequent reversal of the colostomy. She has COPD, hypothyroidism and she is a chronic smoker. The patient has had previous episodes of small bowel obstruction and large bowel obstruction. She suffers from chronic constipation. She is status post colectomy and colostomy for chronic thickened impaction approximately 9 months ago. She underwent subsequent reversal approximately 4 months ago but colostomy. On 05/30/2023, the patient is being seen for a follow-up. She remains critically ill following abdominal surgery and the patient continues to be septic although her condition is somewhat improved compared to yesterday. The skin mottling over the abdomen and lower extremity is improved and the patient continues to have absent pulses on the popliteal in her lower extremities bilaterally. She is more warm lower extremities and the cold and clamminess has essentially recovered. Meanwhile, she was seen by vascular surgery and no intervention has been recommended. She continues to be septic features re quiring pressors although the pressor requirements have improved compared to yesterday. She is on norepinephrine running at 0.1 microvascular kilogram per minute and she is also on vasopressin physiologic dose. She remains on a mechanical ventilator. Propofol is running at a dose of 20 mcg/kg/m. She is on assist-control mode of mechanical ventilation, rate of 20, tidal volume of 400, FiO2 of 40% with a PEEP of 5. Blood gas from today shows a pH of 7.44 with a pCO2 of 41 and pO2 of 150. Chest x-ray shows stable findings. Orotracheal tube is in a good location. NG tube is in a good location. She did have some left basilar atelectasis. Meanwhile, the NG tube is in place, output is in order of minimal.The ostomy is functional and there is some liquidy material collecting an ileostomy bag. PABLO drain output is minimal and it is serosanguineous. Abdominal wound looks dry clean and intact. The patient is arousable. She grimaces to painful stimulation. She remains on the sedation. The creatinine is up to 1.89 as the patient suffered an acute kidney injury. BUN is 43, sodium is 138 and the potassium levels at 3.8. The patient has a white cell count of 9.2 with a hemoglobin of 9.7. She remains nothing by mouth for the time being. Platelet count has been dropping and is currently down to 59. Heparin was discontinued yesterday. She remains on a combination of Zosyn and Flagyl. Cultures expected leak going gram-negative bacillus from the abdomen in the blood culture was also positive for E. coli and this E. coli is quinolone resistant. The patient is postop day #4 for the time being. Reevaluated today on 05/31/2023, patient remains in the ICU, intubated and mecha nically ventilated. She is on assist control rate of 2009 volume 400 FiO2 40% and PEEP of 5, ABG showed a pO2 of 148 pCO2 43 pH of 7.34 hence FiO2 was cut down to 35%. Patient is obviously quite ill, she remains very mottled with poor pulses in lower extremities remains on multiple pressors relatively high-dose including vasopressin at 0.03, norepinephrine at 0.14 mcg/kg/m upper followed at 15 mcg/kg/m. Her previous blood cultures have showed E. coli her urine output is 10-15 mL per hour. However went up as the norepinephrine was increased. Her mean arterial pressure is ranging between 60 up to 68. Remains on Flagyl and Zosyn continues to have colostomy in place, 55 mL output from the colostomy overnight. CODE STATUS has been changed to DO NOT RESUSCITATE patient remains on vital HPI 10 mL per hour. Chest x-ray continues to show left lower lobe consolidation. Overall the patient is doing poorly and she is quite ill. WBC count is 16.7 hemoglobin is 9.9, basic metabolic profile is normal bicarb is 22 BUN is 46 creatinine 2.24. Remains on Zosyn empirically she is also on Flagyl repeat blood cultures were requested today. Her last blood cultures were positive for E. coli Patient was reevaluated today on 06/01/2023, patient remains in the ICU, intubated and mechanically ventilated still on assist control rate of 2009 volume 400 FiO2 35% and PEEP of 5. Remains on norepinephrine at 0.12 mcg/kg/m also on vasopressin at 0.03 units per hour patient is on IV fluid at 1 35 mL per hour receiving vital HPI 10 mL per hour remains on Unasyn, she is also on daptomycin and Flagyl. Patient was given a trial off sedation yesterday and she was following simple instructions but she was generally weak. Blood pressure seems to be better today, nonetheless requiring norepinephrine and vasopressin. Continues to have wound VAC in place continues to have ostomy in place seems to be functional with some serous drainage in the ostomy tube. PABLO drain is draining some serous drainage also. CPKs seems to be quite high, and the patient remains mottled. ABG today showed a pO2 of 136 pCO2 39 pH of 7.31. WBC count is 19.3 hemoglobin 9.5 electrolytes are normal, BUN is 46 creatinine 2.34, slightly worse compared to creatinine yesterday of 2.4. CPK is 15,962 slightly higher compared to yesterday Patient was reevaluated today on 06/02/2023 remains in the ICU, intubated and mec hanically ventilated. Patient tolerated about 2 hours yesterday of pressure support and CPAP 09/07. May try to give her another trial today. In the meantime remains on mechanical ventilation with a rate of 20 that is an assist- control rate, volume 400 FiO2 35% PEEP of 5. ABG showed a pO2 of 148 pCO2 40 pH of 7.32 remains on norepinephrine at 0.04 mcg/kg/m vasopressin at 0.3 units per hour propofol at 20 mcg/kg/m and IV fluid at 1 25 mL per hour however considering the patient is in significant fluid balance, I will cut down the fluids to KVO and I will give the patient Lasix 20 mg IV push 1 today. Patient remains on enteral feeding, at 50 mL per hour vital AF. Chest x-ray continues to stable findings of bilateral lower lobe infiltrates and small effusion with mild vascular venous congestion WBC count today is 19.2 with a low hemoglobin 9.3 electrolytes are normal except for low potassium of 3.4, BUN is 46 creatinine 2.29, improving compared to yesterday at 2.34 Reevaluated/today on 06/03/2023, patient remains in the ICU, intubated and mechanically ventilated. As a matter of fact I was about to extubate the patient today, however after suctioning his stomach and significant volume with no significant residual from her feeding was removed patient developed hypotension with blood pressure down to the 60 systolic hence I held back on extubating the patient today. Patient will be given more fluids today, Lasix was placed on hold, and now she would likely require more norepinephrine and nor vasopressin. She was down to 0.02 mg/kg/m of norepinephrine and remains on 0.03 units of vasopressin. Remains on vital AF she is also on daptomycin and Unasyn. Her vent settings are assist control rate of 2009 volume 400 FiO2 35% PEEP of 5 ABG showed a pO2 of 136 pCO2 40 pH of 7.33 her renal functioning is a bit worse today, however I will increase her fluid status and I will hold the Lasix. CPK continues to trend down his and that 7000 range. WBC count is 19.6 hemoglobin is 9.3, basic metabolic profile is normal bicarb is 19 BUN is 47 creatinine 2.5, CPK is 7950 Patient was reevaluated today on 06/04/2023, remains in the ICU, intubated and mechanically ventilated patient had to be placed back yesterday on assist control mode of mechanical ventilation rate of 2009 volume 400 FiO2 35% and PEEP of 5. ABG today showed a pO2 of 133 pCO2 37 pH of 7.35. Patient is still requiring pressors with norepinephrine at 0.14 mcg/kg/m vasopressin at 0.03 units per minute patient remains on vital HPI and she is on propofol at 15 mcg/kg/m. Chest x-ray showed bilateral pleural effusions, and atelectasis. WBC count is 19.3 hemoglobin is 8.9 basic metabolic profile is normal BUN is 49 and creatinine 2.48 arrest slightly improved compared to yesterday's creatinine of 2.5, CPK is down to 6574 from around 8000 yesterday diuretics to remain on hold. Patient is receiving IV fluids because of her acute rhabdomyolysis and elevated CPK with acute kidney injury Objective - Vital Signs Vital signs: Vital Signs Temp 97.8 F 06/04/23 08:00 Pulse 92 06/04/23 10:00 Resp 6 L 06/04/23 10:00 BP 107/68 06/04/23 09:00 Pulse Ox 100 06/04/23 10:00 FiO2 40 06/04/23 12:21 Intake & Output 06/03/23 06/04/23 06/04/23 18:59 06:59 18:59 Intake Total 1776.250 132.571 8132.389 Output Total 2425 740 290 Balance -648.750 -863.783 0076.389 Weight 83.6 kg 83.6 kg Intake: IV 735 231 1200 0.9 NS KVO 60 ARTERIAL LINE & CVP 72 46 24 Ampicillin-Sulbactam 3 gm 100 100 50 In Sodium Chloride 0.9% 100 ml @ 200 mls/hr IVPB Q12HR@1000,2200 [facility] Rx#: [id number] Sodium Chloride 0.9% 1, 960 000 ml @ 100 mls/hr IV . Q10H [facility] Rx#:[id number] metroNIDAZOLE-NS PMX 500 100 100 100 mg In Saline 1 100ml.bag @ 100 mls/hr IVPB Q6H [facility] Rx#:[id number] Intake, IV Titration 1184.250 202.932 305.389 Amount Calcium Gluconate in NaCl 100 2 gm In Saline 1 100ml. bag @ 100 mls/hr IVPB ONCE ONE Rx#:[id number] DAPTOmycin 350 mg In 50 Sodium Chloride 0.9% 50 ml @ 100 mls/hr IVPB Q48H [facility] Rx#:[id number] Magnesium Sulfate-D5w Pmx 100 1 gm In Dextrose/Water 1 100ml.bag @ 100 mls/hr IVPB ONCE ONE Rx#: [id number] Norepinephrine 32 mg In 48.056 52.294 9.822 Sodium Chloride 0.9% 218 ml @ 0.03 MCG/KG/MIN 0. 778 mls/hr IV .Q24H [facility] Rx#:[id number] Sodium Chloride 0.9% 1, 840 100 000 ml @ 100 mls/hr IV . Q10H [facility] Rx#:[id number] Sodium Chloride 0.9% 1, 150 000 ml @ 50 mls/hr IV . Q20H [facility] Rx#:[id number] Vasopressin 60 unit In 145.503 Sodium Chloride 0.9% 150 ml @ 0.03 UNITS/MIN 4.59 mls/hr IV .Q24H [facility] Rx#: [id number] propofoL 1,000 mg In 0.691 50.638 45.567 Empty Bag 1 bag @ 15 MCG/ KG/MIN 4.98 mls/hr IV . Q20H5M [facility] Rx#:[id number] Tube Feeding 150 Other 110 Output: Gastric Drainage 1300 Urine 1125 740 290 Other: Voiding Method Indwelling Catheter Indwelling Catheter Indwelling Catheter ABP, PAP, CO, CI - Last Documented Arterial Blood Pressure 79/50 - Exam Physical Exam: Revealed 63-year-old female, intubated mechanically ventilated, orogastric tube and endotracheal tube are intact. Head: Atraumatic, normocephalic. HEENT:[Neck is supple.] [No neck masses.] [No thyromegaly.] [No JVD.] Chest: [Minimal crackles at the bases symmetrical chest expansion bilaterally. Cardiac Exam: [Normal S1 and S2, no S3 gallop, no murmur.] Abdomen: [Postsurgical, soft, nontender, diminished bowel sounds. Wound VAC noted PABLO drain noted ostomy seems to be functional. Extremities: Continues to have mottling of lower extremities, abdominal area, and diminished distal pulses Neurological Exam: Patient is awake, in no distress, following simple instructions like wiggling toes and squeezing hands. Psychiatric: Depressed mood. Flat affect, follows instructions Skin: Mottling of the skin is noted especially in lower extremities and in the abdominal area - Labs CBC & Chem 7: 06/04/23 06:30 06/04/23 06:30 Labs: Abnormal Lab Results - Last 24 Hours (Table) 06/04/23 06/04/23 06/04/23 Range/Units 06:17 06:30 06:30 WBC 19.3 H (3.8-10.6) k/uL RBC 3.08 L (3.80-5.40) m/uL Hgb 8.9 L (11.4-16.0) gm/dL Hct 27.8 L (34.0-46.0) % RDW 17.5 H (11.5-15.5) % Plt Count 104 L D (150-450) k/uL ABG pO2 133 H (83-108) mmHg ABG HCO3 20 L (21-25) mmol/L ABG O2 Saturation 98.3 H (94-97) % Potassium 3.2 L (3.5-5.1) mmol/L Chloride 116 H (98-107) mmol/L Carbon Dioxide 18 L (22-30) mmol/L BUN 49 H (7-17) mg/dL Creatinine 2.48 H (0.52-1.04) mg/dL Calcium 5.9 L* (8.4-10.2) mg/dL AST 288 H (14-36) U/L ALT 138 H (4-34) U/L Alkaline Phosphatase 157 H (38-126) U/L Creatine Kinase 6574 H* (30-135) U/L Total Protein 3.9 L (6.3-8.2) g/dL Albumin 1.7 L (3.5-5.0) g/dL Microbiology - Last 24 Hours (Table) 05/31/23 14:31 Blood Culture - Preliminary Blood 05/31/23 11:41 Blood Culture - Preliminary Blood Assessment and Plan Assessment: Impression: Septic shock secondary to acute pneumoperitoneum and abdominal sepsis Acute fecal peritonitis Chronic constipation with previous right and left colectomy and colostomy with subsequent reversal Acute kidney injury secondary to above Acute rhabdomyolysis History of underlying COPD Acute hypoxic and hypercapnic respiratory failure secondary to above History of appendiceal carcinoma Remote history of pulmonary embolism, not anticoagulated History of cervical C3 stenosis Degenerative joint disease Chronic medical debility, shelter resident Acute thrombocytopenia secondary to sepsis Severe protein calorie malnutrition with hypoproteinemia and hypoalbuminemia Hypertension most likely secondary to hypovolemia noted today, will likely improve with more fluids and holding diuretics Recommendation: Continue ventilatory support, will give the patient a trial of pressure support and CPAP today, and if tolerated may extubate patient to BiPAP. Continue to hold diuretics Continue GI and DVT prophylaxis subcu heparin Continue bronchodilators Continue antibiotics and/Zosyn and Flagyl, and daptomycin Repeat blood cultures from 05/31 remain negative so far, negative in the last 72 hours Remains critically ill Critical care time is over 30 minutes Time with Patient: Greater than 30
--- NOTE | 2023-06-04 13:42 | P.PN ---
Subjective Progress Note Date: 06/04/23 CHIEF COMPLAINT: Perforated colorectal anastomosis HISTORY OF PRESENT ILLNESS: Patient is postop day #8 status post exploratory laparotomy, subtotal colectomy with partial proctectomy, drainage of pelvic a bscess, and ileostomy, open fecal disimpaction and left salpingo-oophorectomy. Patient remains in the ICU and on mechanical ventilation. She is able to open her eyes. Patient remains on Levophed. Patient undergoing weaning trial today for possible extubation. Tube feeds remain on hold due to high residual yesterday. Abdominal x-ray ordered this morning showing postoperative ileus. PHYSICAL EXAM: VITAL SIGNS: Reviewed GENERAL: Well-developed in no acute distress. HEENT: No sclera icterus. Moist buccal mucosa. Head is atraumatic, normocephalic. No nasal drainage. NECK: Supple without lymphadenopathy. CHEST: Non-labored respirations and equal bilateral excursions. CARDIOVASCULAR: Palpable 2+ radial pulses. ABDOMEN: Soft. Distended. Ostomy with liquidstool and air. Ostomy is pink. Patient has bruising on abdominal wall between the ostomy and Prevana wound vac. Wound vac is intact. NG tube in place MUSCULOSKELETAL: No clubbing or cyanosis. NEUROLOGIC: Patient opening her eyes. No focal or lateralizing signs. Cranial nerves II through XII grossly intact. SKIN: Mottling feet bilaterally ASSESSMENT: 1. Perforated colorectal anastomosis due to colorectal stenosis 2. Bowel ischemia 3. Fecal impaction 4. Chronic constipation 5. History of colostomy reversal 6. Gastroesophageal reflux disease 7. Hypothyroidism 8. Chronic obstructive pulmonary disease 9. History of pulmonary embolism 10. Tobacco abuse disorder 11. 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 Fecal peritonitis 15. Pelvic abscess 16. Sepsis with septic shock 17. Adhesive band 18. Leukocytosis 19. Postoperative ileus, expected outcome PLAN: -Continue to hold tube feeds for ileus -Continue Reglan -Continue ICU management -Vent weaning management per critical care service -Continue supportive care -Continue antibiotics -DVT prophylaxis subcu heparin Physician Bareback Rider note has been reviewed by physician. Signing provider agrees with the documented findings, assessment, and plan of care. Objective - Vital Signs Vital signs: Vital Signs Temp 97.8 F 06/04/23 08:00 Pulse 92 06/04/23 10:00 Resp 6 L 06/04/23 10:00 BP 107/68 09/01/23 09:00 Pulse Ox 100 06/04/23 10:00 FiO2 40 06/04/23 08:00 Intake & Output 06/03/23 06/04/23 06/04/23 18:59 06:59 18:59 Intake Total 1776.250 303.637 9795.389 Output Total 2425 740 210 Balance -648.750 -483.520 0077.389 Weight 83.6 kg Intake: IV 012 508 0697 0.9 NS KVO 60 ARTERIAL LINE & CVP 72 46 Ampicillin-Sulbactam 3 gm 100 100 50 In Sodium Chloride 0.9% 100 ml @ 200 mls/hr IVPB Q12HR@1000,2200 [facility] Rx#: [id number] Sodium Chloride 0.9% 1, 960 000 ml @ 100 mls/hr IV . Q10H [facility] Rx#:[id number] metroNIDAZOLE-NS PMX 500 100 100 100 mg In Saline 1 100ml.bag @ 100 mls/hr IVPB Q6H [facility] Rx#:[id number] Intake, IV Titration 1184.250 202.932 155.389 Amount Calcium Gluconate in NaCl 100 2 gm In Saline 1 100ml. bag @ 100 mls/hr IVPB ONCE ONE Rx#:[id number] DAPTOmycin 350 mg In 50 Sodium Chloride 0.9% 50 ml @ 100 mls/hr IVPB Q48H [facility] Rx#:[id number] Magnesium Sulfate-D5w Pmx 100 1 gm In Dextrose/Water 1 100ml.bag @ 100 mls/hr IVPB ONCE ONE Rx#: [id number] Norepinephrine 32 mg In 48.056 52.294 9.822 Sodium Chloride 0.9% 218 ml @ 0.03 MCG/KG/MIN 0. 778 mls/hr IV .Q24H [facility] Rx#:[id number] Sodium Chloride 0.9% 1, 840 100 000 ml @ 100 mls/hr IV . Q10H [facility] Rx#:[id number] Vasopressin 60 unit In 145.503 Sodium Chloride 0.9% 150 ml @ 0.03 UNITS/MIN 4.59 mls/hr IV .Q24H [facility] Rx#: [id number] propofoL 1,000 mg In 0.691 50.638 45.567 Empty Bag 1 bag @ 15 MCG/ KG/MIN 4.98 mls/hr IV . Q20H5M [facility] Rx#:[id number] Tube Feeding 150 Other 110 Output: Gastric Drainage 1300 Urine 1125 740 210 Other: Voiding Method Indwelling Catheter Indwelling Catheter Indwelling Catheter ABP, PAP, CO, CI - Last Documented Arterial Blood Pressure 79/50 - Labs CBC & Chem 7: 06/04/23 06:30 06/04/23 06:30 Labs: Abnormal Lab Results - Last 24 Hours (Table) 06/04/23 06/04/23 06/04/23 Range/Units 06:17 06:30 06:30 WBC 19.3 H (3.8-10.6) k/uL RBC 3.08 L (3.80-5.40) m/uL Hgb 8.9 L (11.4-16.0) gm/dL Hct 27.8 L (34.0-46.0) % RDW 17.5 H (11.5-15.5) % Plt Count 104 L D (150-450) k/uL ABG pO2 133 H (83-108) mmHg ABG HCO3 20 L (21-25) mmol/L ABG O2 Saturation 98.3 H (94-97) % Potassium 3.2 L (3.5-5.1) mmol/L Chloride 116 H (98-107) mmol/L Carbon Dioxide 18 L (22-30) mmol/L BUN 49 H (7-17) mg/dL Creatinine 2.48 H (0.52-1.04) mg/dL Calcium 5.9 L* (8.4-10.2) mg/dL AST 288 H (14-36) U/L ALT 138 H (4-34) U/L Alkaline Phosphatase 157 H (38-126) U/L Creatine Kinase 6574 H* (30-135) U/L Total Protein 3.9 L (6.3-8.2) g/dL Albumin 1.7 L (3.5-5.0) g/dL Microbiology - Last 24 Hours (Table) 05/31/23 14:31 Blood Culture - Preliminary Blood 05/31/23 11:41 Blood Culture - Preliminary Blood
--- NOTE | 2023-06-04 16:12 | P.PN ---
Subjective Progress Note Date: 06/04/23 Principal diagnosis: Septic shock secondary to colon perforation Patient seen and examined. Still intubated, sedated. Objective - Vital Signs Vital signs: Vital Signs Temp 97.9 F 06/04/23 12:00 Pulse 85 06/04/23 14:00 Resp 7 L 06/04/23 14:00 BP 107/68 06/04/23 09:00 Pulse Ox 99 06/04/23 13:00 FiO2 40 06/04/23 12:21 Intake & Output 06/03/23 06/04/23 06/04/23 18:59 06:59 18:59 Intake Total 1776.250 305.378 0104.148 Output Total 2425 740 470 Balance -648.750 -508.987 4662.148 Weight 83.6 kg 83.6 kg Intake: IV 442 016 8210 0.9 NS KVO 60 ARTERIAL LINE & CVP 72 46 36 Ampicillin-Sulbactam 3 gm 100 100 50 In Sodium Chloride 0.9% 100 ml @ 200 mls/hr IVPB Q12HR@1000,2200 [facility] Rx#: [id number] Sodium Chloride 0.9% 1, 960 000 ml @ 100 mls/hr IV . Q10H [facility] Rx#:[id number] metroNIDAZOLE-NS PMX 500 100 100 100 mg In Saline 1 100ml.bag @ 100 mls/hr IVPB Q6H [facility] Rx#:[id number] Intake, IV Titration 1184.250 202.932 536.148 Amount Calcium Gluconate in NaCl 100 2 gm In Saline 1 100ml. bag @ 100 mls/hr IVPB ONCE ONE Rx#:[id number] DAPTOmycin 350 mg In 50 Sodium Chloride 0.9% 50 ml @ 100 mls/hr IVPB Q48H [facility] Rx#:[id number] Magnesium Sulfate-D5w Pmx 100 1 gm In Dextrose/Water 1 100ml.bag @ 100 mls/hr IVPB ONCE ONE Rx#: [id number] Norepinephrine 32 mg In 48.056 52.294 31.951 Sodium Chloride 0.9% 218 ml @ 0.03 MCG/KG/MIN 0. 778 mls/hr IV .Q24H [facility] Rx#:[id number] Sodium Chloride 0.9% 1, 840 100 000 ml @ 100 mls/hr IV . Q10H [facility] Rx#:[id number] Sodium Chloride 0.9% 1, 250 000 ml @ 50 mls/hr IV . Q20H [facility] Rx#:[id number] Vasopressin 60 unit In 145.503 108.63 Sodium Chloride 0.9% 150 ml @ 0.03 UNITS/MIN 4.59 mls/hr IV .Q24H [facility] Rx#: [id number] propofoL 1,000 mg In 0.691 50.638 45.567 Empty Bag 1 bag @ 15 MCG/ KG/MIN 4.98 mls/hr IV . Q20H5M [facility] Rx#:[id number] Tube Feeding 150 Other 110 Output: Gastric Drainage 1300 Urine 1125 740 470 Other: Voiding Method Indwelling Catheter Indwelling Catheter Indwelling Catheter ABP, PAP, CO, CI - Last Documented Arterial Blood Pressure 114/67 - Exam Vented, sedated Mottling noted bilateral feet without extension past the ankle. Feet cool to touch. Lower leg, thigh warmer. No doppler signals noted. Non palpable dp or pt pulses - Labs CBC & Chem 7: 06/04/23 06:30 06/04/23 14:45 Labs: Abnormal Lab Results - Last 24 Hours (Table) 06/04/23 06/04/23 06/04/23 Range/Units 06:17 06:30 06:30 WBC 19.3 H (3.8-10.6) k/uL RBC 3.08 L (3.80-5.40) m/uL Hgb 8.9 L (11.4-16.0) gm/dL Hct 27.8 L (34.0-46.0) % RDW 17.5 H (11.5-15.5) % Plt Count 104 L D (150-450) k/uL ABG pO2 133 H (83-108) mmHg ABG HCO3 20 L (21-25) mmol/L ABG O2 Saturation 98.3 H (94-97) % Potassium 3.2 L (3.5-5.1) mmol/L Chloride 116 H (98-107) mmol/L Carbon Dioxide 18 L (22-30) mmol/L BUN 49 H (7-17) mg/dL Creatinine 2.48 H (0.52-1.04) mg/dL Calcium 5.9 L* (8.4-10.2) mg/dL AST 288 H (14-36) U/L ALT 138 H (4-34) U/L Alkaline Phosphatase 157 H (38-126) U/L Creatine Kinase 6574 H* (30-135) U/L Total Protein 3.9 L (6.3-8.2) g/dL Albumin 1.7 L (3.5-5.0) g/dL 06/04/23 Range/Units 12:01 WBC (3.8-10.6) k/uL RBC (3.80-5.40) m/uL Hgb (11.4-16.0) gm/dL Hct (34.0-46.0) % RDW (11.5-15.5) % Plt Count (150-450) k/uL ABG pO2 159 H (83-108) mmHg ABG HCO3 (21-25) mmol/L ABG O2 Saturation 98.4 H (94-97) % Potassium (3.5-5.1) mmol/L Chloride (98-107) mmol/L Carbon Dioxide (22-30) mmol/L BUN (7-17) mg/dL Creatinine (0.52-1.04) mg/dL Calcium (8.4-10.2) mg/dL AST (14-36) U/L ALT (4-34) U/L Alkaline Phosphatase (38-126) U/L Creatine Kinase (30-135) U/L Total Protein (6.3-8.2) g/dL Albumin (3.5-5.0) g/dL Microbiology - Last 24 Hours (Table) 05/31/23 14:31 Blood Culture - Preliminary Blood 05/31/23 11:41 Blood Culture - Preliminary Blood Assessment and Plan Assessment: Septic shock secondary to bowel perforation Acute arterial insufficiency secondary to pressor dependent shock Metabolic acidosis with acute renal failure Plan: Continue supportive care and wean pressor support. No intervention for lower extremities until patient recovers from septic shock.
[2023-06-04] MEDS: NOREPINEPHRINE 32 MG in SODIUM CHLORIDE 0.9% 218 ML IV SCH (17:42)
[2023-06-04 18:25] LABS: Glucose,Whole Blood 82 mg/dL (70-110)
--- NOTE | 2023-06-04 18:58 | P.PN ---
Subjective Progress Note Date: 06/04/23 Principal diagnosis: Septic shock secondary to acute pneumoperitoneum and abdominal sepsis 63-year-old patient, who had severe ileus of right and left: And underwent right and left colectomy with end colostomy by Dr. Worthington on 09/21/2022. on January 29/2023 underwent exploratory laparotomy with takedown of colostomy and takedown of splenic flexure with partial colectomy and repair of incisional hernia and lysis of adhesions by Dr. Worthington. Following that patient had a thr ee-week stay in the hospital for protracted ileus. And finally was discharged on February 25. Patient then presented to the ER on the evening of May 26. Patient presented here from [facility]. Per EMS report patient had a bowel movement for about 3 days. And increasing abdominal discomfort. Patient has remained nonambulatory. Computed tomography scan in the ER showed large pne umoperitoneum. Large fecal bolus of the rectum. Gallstones. Ascites. Patient seen by Dr. Parikh from general surgery.. Patient was taken to the OR for exploratory laboratory yesterday and had subtotal colectomy with partial proctectomy carried out. About 200 mL of pelvic abscess fecal peritonitis was drained. End ileostomy was carried out. Incisional wound VAC prerenal was placed. Left salpingo-oophorectomy was done. Patient continues clean ICU. On the ventilator intubated. Objective - Vital Signs Vital signs: Vital Signs Temp 97.8 F 06/04/23 08:00 Pulse 92 06/04/23 10:00 Resp 6 L 06/04/23 10:00 BP 107/68 06/04/23 09:00 Pulse Ox 100 06/04/23 10:00 FiO2 40 06/04/23 08:00 Intake & Output 06/03/23 06/04/23 06/04/23 18:59 06:59 18:59 Intake Total 1776.250 070.611 8549.389 Output Total 2425 740 210 Balance -648.750 -424.929 5998.389 Weight 83.6 kg Intake: IV 003 622 8896 0.9 NS KVO 60 ARTERIAL LINE & CVP 72 46 Ampicillin-Sulbactam 3 gm 100 100 50 In Sodium Chloride 0.9% 100 ml @ 200 mls/hr IVPB Q12HR@1000,2200 [facility] Rx#: [id number] Sodium Chloride 0.9% 1, 960 000 ml @ 100 mls/hr IV . Q10H [facility] Rx#:[id number] metroNIDAZOLE-NS PMX 500 100 100 100 mg In Saline 1 100ml.bag @ 100 mls/hr IVPB Q6H [facility] Rx#:[id number] Intake, IV Titration 1184.250 202.932 155.389 Amount Calcium Gluconate in NaCl 100 2 gm In Saline 1 100ml. bag @ 100 mls/hr IVPB ONCE ONE Rx#:[id number] DAPTOmycin 350 mg In 50 Sodium Chloride 0.9% 50 ml @ 100 mls/hr IVPB Q48H [facility] Rx#:[id number] Magnesium Sulfate-D5w Pmx 100 1 gm In Dextrose/Water 1 100ml.bag @ 100 mls/hr IVPB ONCE ONE Rx#: [id number] Norepinephrine 32 mg In 48.056 52.294 9.822 Sodium Chloride 0.9% 218 ml @ 0.03 MCG/KG/MIN 0. 778 mls/hr IV .Q24H [facility] Rx#:[id number] Sodium Chloride 0.9% 1, 840 100 000 ml @ 100 mls/hr IV . Q10H [facility] Rx#:[id number] Vasopressin 60 unit In 145.503 Sodium Chloride 0.9% 150 ml @ 0.03 UNITS/MIN 4.59 mls/hr IV .Q24H [facility] Rx#: [id number] propofoL 1,000 mg In 0.691 50.638 45.567 Empty Bag 1 bag @ 15 MCG/ KG/MIN 4.98 mls/hr IV . Q20H5M [facility] Rx#:[id number] Tube Feeding 150 Other 110 Output: Gastric Drainage 1300 Urine 1125 740 210 Other: Voiding Method Indwelling Catheter Indwelling Catheter Indwelling Catheter ABP, PAP, CO, CI - Last Documented Arterial Blood Pressure 79/50 - Exam GENERAL:, In bed, sedated. Persistent lower extremity mottling. EYES: Pupils equal. Conjunctiva pale HEENT: External appearance of nose and ears normal, oral cavity dry mucous membranes. ET tube. NECK: JVD unable to assess; masses not palpable. HEART: First and second heart sounds are normal; no edema. LUNGS: Respiratory rate increased; decreased breath sounds. ABDOMEN: Soft,, nontender Liver spleen not palpable, no masses palpable. Midline [place]. Left-sided PABLO drain Right-sided ileostomy bag with soft stools PSYCH: Does open eyes MUSCULOSKELETAL:No Clubbing/cyanosis;muscles-grossly intact. Mottling of the lower extremities. Cold lower extremity. - Labs CBC & Chem 7: 06/04/23 06:30 06/04/23 14:45 Labs: Abnormal Lab Results - Last 24 Hours (Table) 06/04/23 06/04/23 06/04/23 Range/Units 06:17 06:30 06:30 WBC 19.3 H (3.8-10.6) k/uL RBC 3.08 L (3.80-5.40) m/uL Hgb 8.9 L (11.4-16.0) gm/dL Hct 27.8 L (34.0-46.0) % RDW 17.5 H (11.5-15.5) % Plt Count 104 L D (150-450) k/uL ABG pO2 133 H (83-108) mmHg ABG HCO3 20 L (21-25) mmol/L ABG O2 Saturation 98.3 H (94-97) % Potassium 3.2 L (3.5-5.1) mmol/L Chloride 116 H (98-107) mmol/L Carbon Dioxide 18 L (22-30) mmol/L BUN 49 H (7-17) mg/dL Creatinine 2.48 H (0.52-1.04) mg/dL Calcium 5.9 L* (8.4-10.2) mg/dL AST 288 H (14-36) U/L ALT 138 H (4-34) U/L Alkaline Phosphatase 157 H (38-126) U/L Creatine Kinase 6574 H* (30-135) U/L Total Protein 3.9 L (6.3-8.2) g/dL Albumin 1.7 L (3.5-5.0) g/dL Microbiology - Last 24 Hours (Table) 05/31/23 14:31 Blood Culture - Preliminary Blood 05/31/23 11:41 Blood Culture - Preliminary Blood Assessment and Plan Assessment: Septic shock secondary to acute pneumoperitoneum and abdominal sepsis Acute fecal peritonitis Chronic constipation with previous right and left colectomy and colostomy with subsequent reversal Acute kidney injury secondary to above Acute rhabdomyolysis History of underlying COPD Acute hypoxic and hypercapnic respiratory failure secondary to above History of appendiceal carcinoma Remote history of pulmonary embolism, not anticoagulated History of cervical C3 stenosis Degenerative joint disease Chronic medical debility, snf resident Acute thrombocytopenia secondary to sepsis Severe protein calorie malnutrition with hypoproteinemia and hypoalbuminemia Hypertension most likely secondary to hypovolemia noted today, will likely improve with more fluids and holding diuretics Recommendation: Continue ventilatory support, will give the patient a trial of pressure support and CPAP today, and if tolerated may extubate patient to BiPAP. Continue to hold diuretics Continue GI and DVT prophylaxis subcu heparin Continue bronchodilators Continue antibiotics and/Zosyn and Flagyl, and daptomycin Repeat blood cultures from 05/31 remain negative so far, negative in the last 72 hours
[2023-06-04] MEDS: HYDROcodone/APAP 5-325MG 1 EACH TAB PO PRN (19:53)
[2023-06-04 23:54] LABS: Glucose,Whole Blood 60 mg/dL (70-110)
[2023-06-05 00:15] LABS: Glucose,Whole Blood 79 mg/dL (70-110)
[2023-06-05] MEDS: VASOPRESSIN 60 UNIT in SODIUM CHLORIDE 0.9% 150 ML IV SCH ×2 (00:15→09:12)
[2023-06-05] MEDS: metroNIDAZOLE-NS PMX 500 MG in SALINE 1 100ML.BAG IVPB SCH ×5 (00:15→22:07)
[2023-06-05 00:38] LABS: Glucose,Whole Blood 81 mg/dL (70-110)
[2023-06-05] MEDS: HYDROmorphone 1 MG/ML 1 ML SYRINGE IVP PRN ×3 (01:10→20:42)
[2023-06-05] MEDS: IPRATROPIUM-ALBUTEROL 3 ML NEB INHALATION SCH ×5 (03:44→19:41)
[2023-06-05 05:45] LABS: Glucose,Whole Blood 97 mg/dL (70-110)
[2023-06-05 05:59] LABS: Anisocytosis Slight; HGB 9.4 gm/dL (11.4-16.0); MCH 29.1 pg (25.0-35.0); MCHC 32.2 g/dL (31.0-37.0); MCV 90.3 fL (80.0-100.0); Mean Platelet Volume 10.8; Platelet Count 109 k/uL (150-450); RBC 3.22 m/uL (3.80-5.40); RDW 17.5 % (11.5-15.5); WBC 19.4 k/uL (3.8-10.6)
[2023-06-05 06:19] LABS: ALT 130 U/L (4-34); AST 296 U/L (14-36); African American GFR (CKD) 27 (>60 ml/min/1.73 sqM); Albumin 1.7 g/dL (3.5-5.0); Alkaline Phosphatase 183 U/L (38-126); Anion Gap 9 mmol/L; Blood Urea Nitrogen 50 mg/dL (7-17); Carbon Dioxide 19 mmol/L (22-30); Chloride 116 mmol/L (98-107); Glucose 89 mg/dL (74-99); Magnesium 1.8 mg/dL (1.6-2.3); Non-African American GFR(CKD) 24 (>60 ml/min/1.73 sqM); Potassium 3.6 mmol/L (3.5-5.1); Sodium 144 mmol/L (137-145); Total Bilirubin 1.6 mg/dL (0.2-1.3); Total Protein 4.1 g/dL (6.3-8.2)
[2023-06-05] MEDS: HYDROcodone/APAP 5-325MG 1 EACH TAB PO PRN ×2 (07:17→12:59)
[2023-06-05] MEDS: METOCLOPRAMIDE 10 MG TAB PO SCH ×3 (07:18→16:14)
[2023-06-05 07:26] LABS: Creatine Kinase 6515 U/L (30-135)
[2023-06-05] MEDS ORDERED: MAGNESIUM SULFATE-D5W PMX 1 GM in DEXTROSE/WATER 1 100ML.BAG IVPB ONE (07:34)
[2023-06-05] MEDS ORDERED: POTASSIUM BICARBONATE/CIT AC 20 MEQ TABLET.EFF PO ONE (07:34)
[2023-06-05] MEDS: PANTOPRAZOLE 40 MG/10 ML VIAL IV SCH (08:43)
[2023-06-05] MEDS: SODIUM CHLORIDE 0.9% 1,000 ML IV SCH (08:43)
[2023-06-05] MEDS: AMPICILLIN-SULBACTAM 3 GM in SODIUM CHLORIDE 0.9% 100 ML IVPB SCH ×2 (08:44→22:07)
[2023-06-05] MEDS: ERGOCALCIFEROL 1,250 MCG (50,000 IU) CAPSULE PO SCH (08:44)
[2023-06-05] MEDS: DAPTOmycin 350 MG in SODIUM CHLORIDE 0.9% 50 ML IVPB SCH (09:04)
[2023-06-05] MEDS: NOREPINEPHRINE 32 MG in SODIUM CHLORIDE 0.9% 218 ML IV SCH (09:11)
--- NOTE | 2023-06-05 09:23 | XR ---
EXAMINATION TYPE: XR chest 1V portable DATE OF EXAM: 06/05/2023 9:10 AM COMPARISON: Chest radiographs from 06/04/2023 TECHNIQUE: XR chest 1V portable Portable AP radiograph of the chest. CLINICAL INDICATION:Female, 63 years old with history of CHF; FINDINGS: Lungs/Pleura: Small bilateral pleural effusions redemonstrated with associated atelectasis. No pneumo thorax. Pulmonary vascularity: Unremarkable. Heart/mediastinum: Cardiomediastinal silhouette is enlarged and stable. Atherosclerotic calcificatio ns are seen in the aorta. Musculoskeletal: No acute osseous pathology. Degenerative changes of the thoracic spine. Other findings: None Lines/Tubes: Stable left IJ central venous catheter. Stable NG tube. Removal of endotracheal tube. IMPRESSION: 1. Persistent small bilateral pleural effusions with associated atelectasis. 2. Stable left IJ central venous catheter and NG tube. Interval removal of endotracheal tube.
[2023-06-05] MEDS ORDERED: CALCIUM GLUCONATE IN NACL 2 GM in SALINE 1 100ML.BAG IVPB ONE (10:38)
[2023-06-05] MEDS ORDERED: SODIUM BICARB 8.4% 50 ML SYR (1 MEQ/ML) IV STA (10:40)
--- NOTE | 2023-06-05 10:41 | P.PN ---
Subjective Patient is seen in follow-up for acute kidney injury. Renal function improving. On Levophed and vasopressin. Has NG tube. Feeding held due to concern for ileus. Vital signs are stable. On vasopressor support. General: No acute distress. HEENT: NG tube noted. LUNGS: No audible rhonchi or wheezes. HEART: Rate and Rhythm are regular. ABDOMEN: Wound VAC and colostomy noted. EXTREMITITES: Trace edema. Lower extremity skin discoloration noted. Objective - Vital Signs Vital signs: Vital Signs Temp 97.9 F 06/05/23 08:00 Pulse 85 06/05/23 09:00 Resp 4 L 06/05/23 09:00 BP 107/68 06/04/23 09:00 Pulse Ox 100 06/05/23 09:00 FiO2 40 06/04/23 23:28 Intake & Output 06/04/23 06/05/23 06/05/23 18:59 06:59 18:59 Intake Total 2018.901 818.494 567.874 Output Total 610 780 350 Balance 1408.901 38.494 217.874 Weight 83.6 kg 88.7 kg Intake: IV 1270 716 368 ARTERIAL LINE & CVP 60 16 18 Ampicillin-Sulbactam 3 gm 50 100 100 In Sodium Chloride 0.9% 100 ml @ 200 mls/hr IVPB Q12HR@1000,2200 [facility] Rx#: [id number] Sodium Chloride 0.9% 1, 960 400 150 000 ml @ 100 mls/hr IV . Q10H [facility] Rx#:[id number] metroNIDAZOLE-NS PMX 500 200 200 100 mg In Saline 1 100ml.bag @ 100 mls/hr IVPB Q6H [facility] Rx#:[id number] Intake, IV Titration 748.901 102.494 199.874 Amount DAPTOmycin 350 mg In 50 Sodium Chloride 0.9% 50 ml @ 100 mls/hr IVPB Q48H [facility] Rx#:[id number] Magnesium Sulfate-D5w Pmx 100 1 gm In Dextrose/Water 1 100ml.bag @ 100 mls/hr IVPB ONCE ONE Rx#: [id number] Magnesium Sulfate-D5w Pmx 100 1 gm In Dextrose/Water 1 100ml.bag @ 100 mls/hr IVPB ONCE ONE Rx#: [id number] Norepinephrine 32 mg In 44.704 52.494 35.288 Sodium Chloride 0.9% 218 ml @ 0.03 MCG/KG/MIN 0. 778 mls/hr IV .Q24H [facility] Rx#:[id number] Sodium Chloride 0.9% 1, 450 50 000 ml @ 50 mls/hr IV . Q20H [facility] Rx#:[id number] Vasopressin 60 unit In 108.63 0 14.586 Sodium Chloride 0.9% 150 ml @ 0.03 UNITS/MIN 4.59 mls/hr IV .Q24H [facility] Rx#: [id number] propofoL 1,000 mg In 45.567 Empty Bag 1 bag @ 15 MCG/ KG/MIN 4.98 mls/hr IV . Q20H5M [facility] Rx#:[id number] Output: Urine 610 530 100 Stool 250 250 Other: Voiding Method Indwelling Catheter Indwelling Catheter Indwelling Catheter ABP, PAP, CO, CI - Last Documented Arterial Blood Pressure 91/53 - Labs CBC & Chem 7: 06/05/23 05:15 06/05/23 05:15 Labs: Abnormal Lab Results - Last 24 Hours (Table) 06/04/23 06/04/23 06/05/23 Range/Units 12:01 23:53 05:15 WBC 19.4 H (3.8-10.6) k/uL RBC 3.22 L (3.80-5.40) m/uL Hgb 9.4 L (11.4-16.0) gm/dL Hct 29.0 L (34.0-46.0) % RDW 17.5 H (11.5-15.5) % Plt Count 109 L (150-450) k/uL ABG pO2 159 H (83-108) mmHg ABG O2 Saturation 98.4 H (94-97) % Chloride (98-107) mmol/L Carbon Dioxide (22-30) mmol/L BUN (7-17) mg/dL Creatinine (0.52-1.04) mg/dL POC Glucose (mg/dL) 60 L (70-110) mg/dL Calcium (8.4-10.2) mg/dL Total Bilirubin (0.2-1.3) mg/dL AST (14-36) U/L ALT (4-34) U/L Alkaline Phosphatase (38-126) U/L Creatine Kinase (30-135) U/L Total Protein (6.3-8.2) g/dL Albumin (3.5-5.0) g/dL 06/05/23 Range/Units 05:15 WBC (3.8-10.6) k/uL RBC (3.80-5.40) m/uL Hgb (11.4-16.0) gm/dL Hct (34.0-46.0) % RDW (11.5-15.5) % Plt Count (150-450) k/uL ABG pO2 (83-108) mmHg ABG O2 Saturation (94-97) % Chloride 116 H (98-107) mmol/L Carbon Dioxide 19 L (22-30) mmol/L BUN 50 H (7-17) mg/dL Creatinine 2.15 H (0.52-1.04) mg/dL POC Glucose (mg/dL) (70-110) mg/dL Calcium 6.0 L* (8.4-10.2) mg/dL Total Bilirubin 1.6 H (0.2-1.3) mg/dL AST 296 H (14-36) U/L ALT 130 H (4-34) U/L Alkaline Phosphatase 183 H (38-126) U/L Creatine Kinase 6515 H* (30-135) U/L Total Protein 4.1 L (6.3-8.2) g/dL Albumin 1.7 L (3.5-5.0) g/dL Assessment and Plan Plan: Assessment: 1. Acute kidney injury secondary to ATN secondary to rhabdomyolysis andseptic shock. Patient also received IV contrast on 05/26/[address] with IV contrast. No hydronephrosis was noted on CT. Baseline creatinine is 0.8. Creatinine peaked at 2.5 to this admission and is 2.15 today. 2. Septic shock secondary to perforated viscus with pneumoperitoneum status post exploratory laparotomy, subtotal colectomy, end ileostomy 05/27/2023. Blood culture positive for E. coli, fluid culture positive for E. coli and enterococcus. An IV fluids On vasopressor support. 3. Metabolic acidosis secondary to acute kidney injury and IV fluids. 4. Hypocalcemia secondary to rhabdomyolysis and acute kidney injury. Vitamin D deficiency noted. On Drisdol. 5. Hypomagnesemia from poor intake. Being replaced. 6. Hypokalemia from poor intake. Being replaced. 7. Rhabdomyolysis. Suspect from immobility. Plan: Maintain IV fluids. Replace calcium. Repeat ionized calcium level. Wean FiO2 and vasopressors. Continue to monitor renal function and urine output. 2 A of sodium bicarb IV push today
--- NOTE | 2023-06-05 11:10 | P.PN ---
Subjective Progress Note Date: 06/05/23 Principal diagnosis: Septic shock secondary to acute pneumoperitoneum and abdominal sepsis This is a 63-year-old female patient is currently being seen in the intensive care unit following abdominal surgery. The patient presented to the hospital because of abdominal pain and surgical consultation was obtained as the patient was found to have pneumoperitoneum. The patient had a CAT scan of the abdomen and pelvis that was done 05/26/2023 and the patient was found to have large pneumoperitoneum, large fecal bolus in the rectum. Fecal material was also seen in the sigmoid colon. There was evidence of cholelithiasis and ascites. Based on those findings, the patient was taken to the operating room today and the patient was given an LAD, subtotal colectomy, partial proctectomy and and ileostomy and open fecal decompression drainage of fecal peritonitis and left also also oophprectomy and salpingectomy. Postop, the patient was brought into the intensive care unit. She has already received a total of 5 L of IV fluids. Most recent BP is 81/50. The patient is also on pressors and norepinephrine is running at 0.25 mcg/kg/m. The patient has improved in her urine output which is producing approximately 40 mL an hour. She is fully sedated on propofol which is running at 50 mcg/kg/m. She is, comfortable and symptoms of the mechanical ventilator. I reviewed the initial blood gas that showed a pH of 7.12 with a pCO2 of 48 and a pO2 of more than 400. Subsequently, the patient was placed on assist-control mode at the rate of 26, tidal volume of 400 and FiO2 has been weaned down to 40% and she is currently on a PEEP of 5. The chest x-ray that was done following her abdominal surgery showed adequate positioning of 82. There is no evidence of any acute abnormalities. She has a left IJ triple-lumen catheter in place. The patient had evidence of renal failure, likely acute due to BUN of 47 and a creatinine of 1.78. She also has a mild anion gap metabolic acidosis. The lactic acid level was 2.7. Calcium level was low at 6.3. Serum albumin was 2.6 with a total protein of 4.8. The white cell cause of 3.2 with a hemoglobin of 11.4. She has a NG tube in place. Output from the NG is minimal are brown. Her white suppositive 3.2 with a hemoglobin of 11.4. She is currently covered with IV Zosyn and Flagyl. She was ordered started on a bicarb infusion. Note that the patient has had multiple abdominal surgeries in the past. She has undergone a previous right and left colectomy with end colostomy in September 2022 and subsequent reversal of the colostomy. She has COPD, hypothyroidism and she is a chronic smoker. The patient has had previous episodes of small bowel obstruction and large bowel obstruction. She suffers from chronic constipation. She is status post colectomy and colostomy for chronic thickened impaction approximately 9 months ago. She underwent subsequent reversal approximately 4 months ago but colostomy. On 05/30/2023, the patient is being seen for a follow-up. She remains critically ill following abdominal surgery and the patient continues to be septic although her condition is somewhat improved compared to yesterday. The skin mottling over the abdomen and lower extremity is improved and the patient continues to have absent pulses on the popliteal in her lower extremities bilaterally. She is more warm lower extremities and the cold and clamminess has essentially recovered. Meanwhile, she was seen by vascular surgery and no intervention has been recommended. She continues to be septic features re quiring pressors although the pressor requirements have improved compared to yesterday. She is on norepinephrine running at 0.1 microvascular kilogram per minute and she is also on vasopressin physiologic dose. She remains on a mechanical ventilator. Propofol is running at a dose of 20 mcg/kg/m. She is on assist-control mode of mechanical ventilation, rate of 20, tidal volume of 400, FiO2 of 40% with a PEEP of 5. Blood gas from today shows a pH of 7.44 with a pCO2 of 41 and pO2 of 150. Chest x-ray shows stable findings. Orotracheal tube is in a good location. NG tube is in a good location. She did have some left basilar atelectasis. Meanwhile, the NG tube is in place, output is in order of minimal.The ostomy is functional and there is some liquidy material collecting an ileostomy bag. PABLO drain output is minimal and it is serosanguineous. Abdominal wound looks dry clean and intact. The patient is arousable. She grimaces to painful stimulation. She remains on the sedation. The creatinine is up to 1.89 as the patient suffered an acute kidney injury. BUN is 43, sodium is 138 and the potassium levels at 3.8. The patient has a white cell count of 9.2 with a hemoglobin of 9.7. She remains nothing by mouth for the time being. Platelet count has been dropping and is currently down to 59. Heparin was discontinued yesterday. She remains on a combination of Zosyn and Flagyl. Cultures expected leak going gram-negative bacillus from the abdomen in the blood culture was also positive for E. coli and this E. coli is quinolone resistant. The patient is postop day #4 for the time being. Reevaluated today on 05/31/2023, patient remains in the ICU, intubated and mecha nically ventilated. She is on assist control rate of 2009 volume 400 FiO2 40% and PEEP of 5, ABG showed a pO2 of 148 pCO2 43 pH of 7.34 hence FiO2 was cut down to 35%. Patient is obviously quite ill, she remains very mottled with poor pulses in lower extremities remains on multiple pressors relatively high-dose including vasopressin at 0.03, norepinephrine at 0.14 mcg/kg/m upper followed at 15 mcg/kg/m. Her previous blood cultures have showed E. coli her urine output is 10-15 mL per hour. However went up as the norepinephrine was increased. Her mean arterial pressure is ranging between 60 up to 68. Remains on Flagyl and Zosyn continues to have colostomy in place, 55 mL output from the colostomy overnight. CODE STATUS has been changed to DO NOT RESUSCITATE patient remains on vital HPI 10 mL per hour. Chest x-ray continues to show left lower lobe consolidation. Overall the patient is doing poorly and she is quite ill. WBC count is 16.7 hemoglobin is 9.9, basic metabolic profile is normal bicarb is 22 BUN is 46 creatinine 2.24. Remains on Zosyn empirically she is also on Flagyl repeat blood cultures were requested today. Her last blood cultures were positive for E. coli Patient was reevaluated today on 06/01/2023, patient remains in the ICU, intubated and mechanically ventilated still on assist control rate of 2009 volume 400 FiO2 35% and PEEP of 5. Remains on norepinephrine at 0.12 mcg/kg/m also on vasopressin at 0.03 units per hour patient is on IV fluid at 1 35 mL per hour receiving vital HPI 10 mL per hour remains on Unasyn, she is also on daptomycin and Flagyl. Patient was given a trial off sedation yesterday and she was following simple instructions but she was generally weak. Blood pressure seems to be better today, nonetheless requiring norepinephrine and vasopressin. Continues to have wound VAC in place continues to have ostomy in place seems to be functional with some serous drainage in the ostomy tube. PABLO drain is draining some serous drainage also. CPKs seems to be quite high, and the patient remains mottled. ABG today showed a pO2 of 136 pCO2 39 pH of 7.31. WBC count is 19.3 hemoglobin 9.5 electrolytes are normal, BUN is 46 creatinine 2.34, slightly worse compared to creatinine yesterday of 2.4. CPK is 15,962 slightly higher compared to yesterday Patient was reevaluated today on 06/02/2023 remains in the ICU, intubated and mec hanically ventilated. Patient tolerated about 2 hours yesterday of pressure support and CPAP 09/07. May try to give her another trial today. In the meantime remains on mechanical ventilation with a rate of 20 that is an assist- control rate, volume 400 FiO2 35% PEEP of 5. ABG showed a pO2 of 148 pCO2 40 pH of 7.32 remains on norepinephrine at 0.04 mcg/kg/m vasopressin at 0.3 units per hour propofol at 20 mcg/kg/m and IV fluid at 1 25 mL per hour however considering the patient is in significant fluid balance, I will cut down the fluids to KVO and I will give the patient Lasix 20 mg IV push 1 today. Patient remains on enteral feeding, at 50 mL per hour vital AF. Chest x-ray continues to stable findings of bilateral lower lobe infiltrates and small effusion with mild vascular venous congestion WBC count today is 19.2 with a low hemoglobin 9.3 electrolytes are normal except for low potassium of 3.4, BUN is 46 creatinine 2.29, improving compared to yesterday at 2.34 Reevaluated/today on 06/03/2023, patient remains in the ICU, intubated and mechanically ventilated. As a matter of fact I was about to extubate the patient today, however after suctioning his stomach and significant volume with no significant residual from her feeding was removed patient developed hypotension with blood pressure down to the 60 systolic hence I held back on extubating the patient today. Patient will be given more fluids today, Lasix was placed on hold, and now she would likely require more norepinephrine and nor vasopressin. She was down to 0.02 mg/kg/m of norepinephrine and remains on 0.03 units of vasopressin. Remains on vital AF she is also on daptomycin and Unasyn. Her vent settings are assist control rate of 2009 volume 400 FiO2 35% PEEP of 5 ABG showed a pO2 of 136 pCO2 40 pH of 7.33 her renal functioning is a bit worse today, however I will increase her fluid status and I will hold the Lasix. CPK continues to trend down his and that 7000 range. WBC count is 19.6 hemoglobin is 9.3, basic metabolic profile is normal bicarb is 19 BUN is 47 creatinine 2.5, CPK is 7950 Patient was reevaluated today on 06/04/2023, remains in the ICU, intubated and mechanically ventilated patient had to be placed back yesterday on assist control mode of mechanical ventilation rate of 2009 volume 400 FiO2 35% and PEEP of 5. ABG today showed a pO2 of 133 pCO2 37 pH of 7.35. Patient is still requiring pressors with norepinephrine at 0.14 mcg/kg/m vasopressin at 0.03 units per minute patient remains on vital HPI and she is on propofol at 15 mcg/kg/m. Chest x-ray showed bilateral pleural effusions, and atelectasis. WBC count is 19.3 hemoglobin is 8.9 basic metabolic profile is normal BUN is 49 and creatinine 2.48 arrest slightly improved compared to yesterday's creatinine of 2.5, CPK is down to 6574 from around 8000 yesterday diuretics to remain on hold. Patient is receiving IV fluids because of her acute rhabdomyolysis and elevated CPK with acute kidney injury Reevaluated today on 06/05/2023, remains in the ICU, however the patient was extubated yesterday and tolerated the extubation well so far. She was on BiPAP with IPAP of 12 EPAP of 6 and 40% FiO2., However the patient was transitioned to a nasal cannula, 3 L/m with excellent O2 saturations, patient is still requiring pressors including norepinephrine at 0.22 and vasopressin is down to 0.01. Her tube feeding is presently on hold because the surgeon is concerned about ileus her chest x-ray continues to show small right-sided and left-sided pleural effusions her IV fluids remains at 50 mL per hour. CPK is 6515 renal profile is basically about the same, patient is being followed by nephrology. Remains on Unasyn daptomycin and Flagyl. WBC count today is 19.4 hemoglobin is 9.4 a left lites are normal BUN is 50 creatinine 2.15, it was 2.48 yesterday at 2.5 to the day prior had liver enzymes remained relatively elevated with a AST of 296 and alkaline phosphatase of 183. Objective - Vital Signs Vital signs: Vital Signs Temp 97.9 F 06/05/23 08:00 Pulse 85 06/05/23 09:00 Resp 4 L 06/05/23 09:00 BP 107/68 06/04/23 09:00 Pulse Ox 100 06/05/23 09:00 FiO2 40 06/04/23 23:28 Intake & Output 06/04/23 06/05/23 06/05/23 18:59 06:59 18:59 Intake Total 2018.901 818.494 567.874 Output Total 610 780 350 Balance 1408.901 38.494 217.874 Weight 83.6 kg 88.7 kg Intake: IV 1270 716 368 ARTERIAL LINE & CVP 60 16 18 Ampicillin-Sulbactam 3 gm 50 100 100 In Sodium Chloride 0.9% 100 ml @ 200 mls/hr IVPB Q12HR@1000,2200 [facility] Rx#: [id number] Sodium Chloride 0.9% 1, 960 400 150 000 ml @ 100 mls/hr IV . Q10H [facility] Rx#:[id number] metroNIDAZOLE-NS PMX 500 200 200 100 mg In Saline 1 100ml.bag @ 100 mls/hr IVPB Q6H [facility] Rx#:[id number] Intake, IV Titration 748.901 102.494 199.874 Amount DAPTOmycin 350 mg In 50 Sodium Chloride 0.9% 50 ml @ 100 mls/hr IVPB Q48H [facility] Rx#:[id number] Magnesium Sulfate-D5w Pmx 100 1 gm In Dextrose/Water 1 100ml.bag @ 100 mls/hr IVPB ONCE ONE Rx#: [id number] Magnesium Sulfate-D5w Pmx 100 1 gm In Dextrose/Water 1 100ml.bag @ 100 mls/hr IVPB ONCE ONE Rx#: [id number] Norepinephrine 32 mg In 44.704 52.494 35.288 Sodium Chloride 0.9% 218 ml @ 0.03 MCG/KG/MIN 0. 778 mls/hr IV .Q24H [facility] Rx#:[id number] Sodium Chloride 0.9% 1, 450 50 000 ml @ 50 mls/hr IV . Q20H [facility] Rx#:[id number] Vasopressin 60 unit In 108.63 0 14.586 Sodium Chloride 0.9% 150 ml @ 0.03 UNITS/MIN 4.59 mls/hr IV .Q24H [facility] Rx#: [id number] propofoL 1,000 mg In 45.567 Empty Bag 1 bag @ 15 MCG/ KG/MIN 4.98 mls/hr IV . Q20H5M [facility] Rx#:[id number] Output: Urine 610 530 100 Stool 250 250 Other: Voiding Method Indwelling Catheter Indwelling Catheter Indwelling Catheter ABP, PAP, CO, CI - Last Documented Arterial Blood Pressure 91/53 - Exam Physical Exam: Revealed 63-year-old female, on 3 L nasal cannula seems to be generally weak, follows instructions. Not in distress Head: Atraumatic, normocephalic. HEENT:[Neck is supple.] [No neck masses.] [No thyromegaly.] [No JVD.] Chest: [Diminished breath sounds at the bases no rhonchi and no wheezes Cardiac Exam: [Normal S1 and S2, no S3 gallop, no murmur.] Abdomen: [Postsurgical, soft, nontender, diminished bowel sounds. Wound VAC noted PABLO drain noted ostomy seems to be functional. Extremities: Continues to have mottling of lower extremities, abdominal area, and diminished distal pulses Neurological Exam: Patient is awake, in no distress, following simple instructions, but generally weak. Psychiatric: Depressed mood. Flat affect, follows instructions Skin: Mottling of the skin is noted especially in lower extremities bilaterally - Labs CBC & Chem 7: 06/05/23 05:15 06/05/23 05:15 Labs: Abnormal Lab Results - Last 24 Hours (Table) 06/04/23 06/04/23 06/05/23 Range/Units 12:01 23:53 05:15 WBC 19.4 H (3.8-10.6) k/uL RBC 3.22 L (3.80-5.40) m/uL Hgb 9.4 L (11.4-16.0) gm/dL Hct 29.0 L (34.0-46.0) % RDW 17.5 H (11.5-15.5) % Plt Count 109 L (150-450) k/uL ABG pO2 159 H (83-108) mmHg ABG O2 Saturation 98.4 H (94-97) % Chloride (98-107) mmol/L Carbon Dioxide (22-30) mmol/L BUN (7-17) mg/dL Creatinine (0.52-1.04) mg/dL POC Glucose (mg/dL) 60 L (70-110) mg/dL Calcium (8.4-10.2) mg/dL Total Bilirubin (0.2-1.3) mg/dL AST (14-36) U/L ALT (4-34) U/L Alkaline Phosphatase (38-126) U/L Creatine Kinase (30-135) U/L Total Protein (6.3-8.2) g/dL Albumin (3.5-5.0) g/dL 06/05/23 Range/Units 05:15 WBC (3.8-10.6) k/uL RBC (3.80-5.40) m/uL Hgb (11.4-16.0) gm/dL Hct (34.0-46.0) % RDW (11.5-15.5) % Plt Count (150-450) k/uL ABG pO2 (83-108) mmHg ABG O2 Saturation (94-97) % Chloride 116 H (98-107) mmol/L Carbon Dioxide 19 L (22-30) mmol/L BUN 50 H (7-17) mg/dL Creatinine 2.15 H (0.52-1.04) mg/dL POC Glucose (mg/dL) (70-110) mg/dL Calcium 6.0 L* (8.4-10.2) mg/dL Total Bilirubin 1.6 H (0.2-1.3) mg/dL AST 296 H (14-36) U/L ALT 130 H (4-34) U/L Alkaline Phosphatase 183 H (38-126) U/L Creatine Kinase 6515 H* (30-135) U/L Total Protein 4.1 L (6.3-8.2) g/dL Albumin 1.7 L (3.5-5.0) g/dL Assessment and Plan Assessment: Impression: Septic shock secondary to acute pneumoperitoneum and abdominal sepsis Acute fecal peritonitis Chronic constipation with previous right and left colectomy and colostomy with subsequent reversal Acute kidney injury secondary to above Acute rhabdomyolysis History of underlying COPD Acute hypoxic and hypercapnic respiratory failure secondary to above History of appendiceal carcinoma Remote history of pulmonary embolism, not anticoagulated History of cervical C3 stenosis Degenerative joint disease Chronic medical debility, senior care resident Acute thrombocytopenia secondary to sepsis Severe protein calorie malnutrition with hypoproteinemia and hypoalbuminemia Recommendation: Patient was extubated on 06/04/2023, and so far she seems to be tolerating the extubation well. Cut down IV fluid to KVO Continue GI and DVT prophylaxis Continue subcu heparin Continue bronchodilators Continue antibiotics and/Zosyn and Flagyl, and daptomycin Encourage incentive spirometry Cutdown on pressors including norepinephrine and vasopressin if possible that may improve her mottling of the skin and skin changes and lower extremities Encourage ambulation if possible Trickle feeding once cleared by surgery Remains critically ill Will continue to monitor in the ICU. Not quite ready for transfer to the floor yet. Critical care time is over 30 minutes Time with Patient: Greater than 30
[2023-06-05 11:37] LABS: Glucose,Whole Blood 82 mg/dL (70-110)
--- NOTE | 2023-06-05 11:48 | P.PN ---
Subjective Progress Note Date: 06/05/23 Principal diagnosis: abdominal sepsis, pneumoperitoneum Extubated yesterday. Complains of being thirsty. Pain controlled Objective - Vital Signs Vital signs: Vital Signs Temp 97.9 F 06/05/23 08:00 Pulse 85 06/05/23 09:00 Resp 4 L 06/05/23 09:00 BP 107/68 06/04/23 09:00 Pulse Ox 100 06/05/23 09:00 FiO2 40 06/04/23 23:28 Intake & Output 06/04/23 06/05/23 06/05/23 18:59 06:59 18:59 Intake Total 2018.901 818.494 567.874 Output Total 610 780 350 Balance 1408.901 38.494 217.874 Weight 83.6 kg 88.7 kg Intake: IV 1270 716 368 ARTERIAL LINE & CVP 60 16 18 Ampicillin-Sulbactam 3 gm 50 100 100 In Sodium Chloride 0.9% 100 ml @ 200 mls/hr IVPB Q12HR@1000,2200 [facility] Rx#: [id number] Sodium Chloride 0.9% 1, 960 400 150 000 ml @ 100 mls/hr IV . Q10H [facility] Rx#:[id number] metroNIDAZOLE-NS PMX 500 200 200 100 mg In Saline 1 100ml.bag @ 100 mls/hr IVPB Q6H [facility] Rx#:[id number] Intake, IV Titration 748.901 102.494 199.874 Amount DAPTOmycin 350 mg In 50 Sodium Chloride 0.9% 50 ml @ 100 mls/hr IVPB Q48H [facility] Rx#:[id number] Magnesium Sulfate-D5w Pmx 100 1 gm In Dextrose/Water 1 100ml.bag @ 100 mls/hr IVPB ONCE ONE Rx#: [id number] Magnesium Sulfate-D5w Pmx 100 1 gm In Dextrose/Water 1 100ml.bag @ 100 mls/hr IVPB ONCE ONE Rx#: [id number] Norepinephrine 32 mg In 44.704 52.494 35.288 Sodium Chloride 0.9% 218 ml @ 0.03 MCG/KG/MIN 0. 778 mls/hr IV .Q24H [facility] Rx#:[id number] Sodium Chloride 0.9% 1, 450 50 000 ml @ 50 mls/hr IV . Q20H [facility] Rx#:[id number] Vasopressin 60 unit In 108.63 0 14.586 Sodium Chloride 0.9% 150 ml @ 0.03 UNITS/MIN 4.59 mls/hr IV .Q24H [facility] Rx#: [id number] propofoL 1,000 mg In 45.567 Empty Bag 1 bag @ 15 MCG/ KG/MIN 4.98 mls/hr IV . Q20H5M [facility] Rx#:[id number] Output: Urine 610 530 100 Stool 250 250 Other: Voiding Method Indwelling Catheter Indwelling Catheter Indwelling Catheter ABP, PAP, CO, CI - Last Documented Arterial Blood Pressure 91/53 - Constitutional General appearance: Present: cooperative, mild distress - EENT Eyes: Present: EOMI ENT: Present: hearing grossly normal - Respiratory Respiratory: negative: diminished - Cardiovascular Rhythm: regular - Gastrointestinal Localized gastrointestinal: surgical scar: RLQ (ileostomy pink patent productive) - Musculoskeletal Musculoskeletal: Present: generalized weakness - Psychiatric Psychiatric: Present: appropriate affect - Labs CBC & Chem 7: 06/05/23 05:15 06/05/23 05:15 Labs: Abnormal Lab Results - Last 24 Hours (Table) 06/04/23 06/04/23 06/05/23 Range/Units 12:01 23:53 05:15 WBC 19.4 H (3.8-10.6) k/uL RBC 3.22 L (3.80-5.40) m/uL Hgb 9.4 L (11.4-16.0) gm/dL Hct 29.0 L (34.0-46.0) % RDW 17.5 H (11.5-15.5) % Plt Count 109 L (150-450) k/uL ABG pO2 159 H (83-108) mmHg ABG O2 Saturation 98.4 H (94-97) % Chloride (98-107) mmol/L Carbon Dioxide (22-30) mmol/L BUN (7-17) mg/dL Creatinine (0.52-1.04) mg/dL POC Glucose (mg/dL) 60 L (70-110) mg/dL Calcium (8.4-10.2) mg/dL Total Bilirubin (0.2-1.3) mg/dL AST (14-36) U/L ALT (4-34) U/L Alkaline Phosphatase (38-126) U/L Creatine Kinase (30-135) U/L Total Protein (6.3-8.2) g/dL Albumin (3.5-5.0) g/dL 06/05/23 Range/Units 05:15 WBC (3.8-10.6) k/uL RBC (3.80-5.40) m/uL Hgb (11.4-16.0) gm/dL Hct (34.0-46.0) % RDW (11.5-15.5) % Plt Count (150-450) k/uL ABG pO2 (83-108) mmHg ABG O2 Saturation (94-97) % Chloride 116 H (98-107) mmol/L Carbon Dioxide 19 L (22-30) mmol/L BUN 50 H (7-17) mg/dL Creatinine 2.15 H (0.52-1.04) mg/dL POC Glucose (mg/dL) (70-110) mg/dL Calcium 6.0 L* (8.4-10.2) mg/dL Total Bilirubin 1.6 H (0.2-1.3) mg/dL AST 296 H (14-36) U/L ALT 130 H (4-34) U/L Alkaline Phosphatase 183 H (38-126) U/L Creatine Kinase 6515 H* (30-135) U/L Total Protein 4.1 L (6.3-8.2) g/dL Albumin 1.7 L (3.5-5.0) g/dL Assessment and Plan (1) Peritonitis Narrative/Plan: continue antibiotics. OK to start trickle TF. Current Visit: Yes Status: Acute Code(s): K65.9 - PERITONITIS, UNSPECIFIED SNOMED Code(s): 60887569 (2) Pneumoperitoneum Current Visit: Yes Status: Acute Code(s): K66.8 - OTHER SPECIFIED DISORDERS OF PERITONEUM SNOMED Code(s): 18010510 (3) Sepsis Narrative/Plan: wean pressors as tolerated Current Visit: Yes Status: Acute Code(s): A41.9 - SEPSIS, UNSPECIFIED ORGANISM SNOMED Code(s): 11154982
--- NOTE | 2023-06-05 11:51 | P.PN ---
Subjective Progress Note Date: 06/05/23 Patient seen and examined. Extubated yesterday, remains on pressor support Objective - Vital Signs Vital signs: Vital Signs Temp 97.9 F 06/05/23 08:00 Pulse 85 06/05/23 09:00 Resp 4 L 06/05/23 09:00 BP 107/68 06/04/23 09:00 Pulse Ox 100 06/05/23 09:00 FiO2 40 06/04/23 23:28 Intake & Output 06/04/23 06/05/23 06/05/23 18:59 06:59 18:59 Intake Total 2018.901 818.494 567.874 Output Total 610 780 350 Balance 1408.901 38.494 217.874 Weight 83.6 kg 88.7 kg Intake: IV 1270 716 368 ARTERIAL LINE & CVP 60 16 18 Ampicillin-Sulbactam 3 gm 50 100 100 In Sodium Chloride 0.9% 100 ml @ 200 mls/hr IVPB Q12HR@1000,2200 [facility] Rx#: [id number] Sodium Chloride 0.9% 1, 960 400 150 000 ml @ 100 mls/hr IV . Q10H [facility] Rx#:[id number] metroNIDAZOLE-NS PMX 500 200 200 100 mg In Saline 1 100ml.bag @ 100 mls/hr IVPB Q6H [facility] Rx#:[id number] Intake, IV Titration 748.901 102.494 199.874 Amount DAPTOmycin 350 mg In 50 Sodium Chloride 0.9% 50 ml @ 100 mls/hr IVPB Q48H [facility] Rx#:[id number] Magnesium Sulfate-D5w Pmx 100 1 gm In Dextrose/Water 1 100ml.bag @ 100 mls/hr IV[facility] ONCE ONE Rx#: [id number] Magnesium Sulfate-D5w Pmx 100 1 gm In Dextrose/Water 1 100ml.bag @ 100 mls/hr IVPB ONCE ONE Rx#: [id number] Norepinephrine 32 mg In 44.704 52.494 35.288 Sodium Chloride 0.9% 218 ml @ 0.03 MCG/KG/MIN 0. 778 mls/hr IV .Q24H [facility] Rx#:[id number] Sodium Chloride 0.9% 1, 450 50 000 ml @ 50 mls/hr IV . Q20H [facility] Rx#:[id number] Vasopressin 60 unit In 108.63 0 14.586 Sodium Chloride 0.9% 150 ml @ 0.03 UNITS/MIN 4.59 mls/hr IV .Q24H [facility] Rx#: [id number] propofoL 1,000 mg In 45.567 Empty Bag 1 bag @ 15 MCG/ KG/MIN 4.98 mls/hr IV . Q20H5M [facility] Rx#:[id number] Output: Urine 610 530 100 Stool 250 250 Other: Voiding Method Indwelling Catheter Indwelling Catheter Indwelling Catheter ABP, PAP, CO, CI - Last Documented Arterial Blood Pressure 91/53 - Exam Extubated Mottling noted bilateral feet without extension past the ankle. Left foot warm to the mid foot, forefoot is cool. Ankle to foot is cool on the right Warm bilateral lower extremities of the upper and lower leg. No doppler signals noted. Patient does respond to stimuli and opens eyes. When asked to move feet, no motion. Unable to follow all commands otherwise, but is moving fingers - Labs CBC & Chem 7: 06/05/23 05:15 06/05/23 05:15 Labs: Abnormal Lab Results - Last 24 Hours (Table) 06/04/23 06/04/23 06/05/23 Range/Units 12:01 23:53 05:15 WBC 19.4 H (3.8-10.6) k/uL RBC 3.22 L (3.80-5.40) m/uL Hgb 9.4 L (11.4-16.0) gm/dL Hct 29.0 L (34.0-46.0) % RDW 17.5 H (11.5-15.5) % Plt Count 109 L (150-450) k/uL ABG pO2 159 H (83-108) mmHg ABG O2 Saturation 98.4 H (94-97) % Chloride (98-107) mmol/L Carbon Dioxide (22-30) mmol/L BUN (7-17) mg/dL Creatinine (0.52-1.04) mg/dL POC Glucose (mg/dL) 60 L (70-110) mg/dL Calcium (8.4-10.2) mg/dL Total Bilirubin (0.2-1.3) mg/dL AST (14-36) U/L ALT (4-34) U/L Alkaline Phosphatase (38-126) U/L Creatine Kinase (30-135) U/L Total Protein (6.3-8.2) g/dL Albumin (3.5-5.0) g/dL 06/05/23 Range/Units 05:15 WBC (3.8-10.6) k/uL RBC (3.80-5.40) m/uL Hgb (11.4-16.0) gm/dL Hct (34.0-46.0) % RDW (11.5-15.5) % Plt Count (150-450) k/uL ABG pO2 (83-108) mmHg ABG O2 Saturation (94-97) % Chloride 116 H (98-107) mmol/L Carbon Dioxide 19 L (22-30) mmol/L BUN 50 H (7-17) mg/dL Creatinine 2.15 H (0.52-1.04) mg/dL POC Glucose (mg/dL) (70-110) mg/dL Calcium 6.0 L* (8.4-10.2) mg/dL Total Bilirubin 1.6 H (0.2-1.3) mg/dL AST 296 H (14-36) U/L ALT 130 H (4-34) U/L Alkaline Phosphatase 183 H (38-126) U/L Creatine Kinase 6515 H* (30-135) U/L Total Protein 4.1 L (6.3-8.2) g/dL Albumin 1.7 L (3.5-5.0) g/dL Assessment and Plan Assessment: Septic shock secondary to bowel perforation Acute arterial insufficiency secondary to pressor dependent shock Metabolic acidosis with acute renal failure Plan: Continue supportive care as needed. Wean pressors support when able. Await further demarcation to make recommendations regarding possible debr idement/amputation. No emergent intervention at this time. Continue to monitor for overall goals of care. May consider arterial Doppler of the bilateral lower extremities to aid in further delineation of adequate inflow, hopefully we'll be able to do so at a time when there there is no further pressor support .
[2023-06-05 17:34] LABS: Glucose,Whole Blood 74 mg/dL (70-110)
--- NOTE | 2023-06-05 17:49 | P.PN ---
Subjective Progress Note Date: 06/05/23 Principal diagnosis: Septic shock secondary to acute pneumoperitoneum and abdominal sepsis 63-year-old patient, who had severe ileus of right and left: And underwent right and left colectomy with end colostomy by Dr. Worthington on 09/21/2022. on January 29/2023 underwent exploratory laparotomy with takedown of colostomy and takedown of splenic flexure with partial colectomy and repair of incisional hernia and lysis of adhesions by Dr. Worthington. Following that patient had a thr ee-week stay in the hospital for protracted ileus. And finally was discharged on February 25. Patient then presented to the ER on the evening of May 26. Patient presented here from [facility] [place]. Per EMS report patient had a bowel movement for about 3 days. And increasing abdominal discomfort. Patient has remained nonambulatory. Computed tomography scan in the ER showed large pne umoperitoneum. Large fecal bolus of the rectum. Gallstones. Ascites. Patient seen by Dr. Parikh from general surgery.. Patient was taken to the OR for exploratory laboratory yesterday and had subtotal colectomy with partial proctectomy carried out. About 200 mL of pelvic abscess fecal peritonitis was drained. End ileostomy was carried out. Incisional wound VAC prerenal was placed. Left salpingo-oophorectomy was done. Patient continues clean ICU. On the ventilator intubated. 06/05/2023 Patient is seen and evaluated; remains in the ICU; was extubated yesterday and tolerated the extubation well so far. She was on BiPAP with IPAP of 12 EPAP of 6 and 40% FiO2., However the patient was transitioned to a nasal cannula, 3 L/m with excellent O2 saturations, patient is still requiring pressors including norepinephrine at 0.22 and vasopressin is down to 0.01. Her tube feeding is presently on hold given concern about ileus -- chest x-ray continues to show small right-sided and left-sided pleural effusions her IV fluids remains at 50 mL per hour. CPK is 6515 renal profile is basically about the same, patient is being followed by nephrology. WBC count today is 19.4 hemoglobin is 9.4 a left lites are normal BUN is 50 creatinine 2.15, it was 2.48 yesterday at 2.5 to the day prior had liver enzymes remained relatively elevated with a AST of 296 and alkaline phosphatase of 183. Remains on Unasyn daptomycin and Flagyl. Objective - Vital Signs Vital signs: Vital Signs Temp 97.9 F 06/05/23 08:00 Pulse 85 06/05/23 09:00 Resp 4 L 06/05/23 09:00 BP 107/68 06/04/23 09:00 Pulse Ox 100 06/05/23 09:00 FiO2 40 06/04/23 23:28 Intake & Output 06/04/23 06/05/23 06/05/23 18:59 06:59 18:59 Intake Total 2018.901 818.494 567.874 Output Total 610 780 350 Balance 1408.901 38.494 217.874 Weight 83.6 kg 88.7 kg Intake: IV 1270 716 368 ARTERIAL LINE & CVP 60 16 18 Ampicillin-Sulbactam 3 gm 50 100 100 In Sodium Chloride 0.9% 100 ml @ 200 mls/hr IVPB Q12HR@1000,2200 [facility] Rx#: [id number] Sodium Chloride 0.9% 1, 960 400 150 000 ml @ 100 mls/hr IV . Q10H [facility] Rx#:[id number] metroNIDAZOLE-NS PMX 500 200 200 100 mg In Saline 1 100ml.bag @ 100 mls/hr IVPB Q6H [facility] Rx#:[id number] Intake, IV Titration 748.901 102.494 199.874 Amount DAPTOmycin 350 mg In 50 Sodium Chloride 0.9% 50 ml @ 100 mls/hr IVPB Q48H [facility] Rx#:[id number] Magnesium Sulfate-D5w Pmx 100 1 gm In Dextrose/Water 1 100ml.bag @ 100 mls/hr IVPB ONCE ONE Rx#: [id number] Magnesium Sulfate-D5w Pmx 100 1 gm In Dextrose/Water 1 100ml.bag @ 100 mls/hr IVPB ONCE ONE Rx#: [id number] Norepinephrine 32 mg In 44.704 52.494 35.288 Sodium Chloride 0.9% 218 ml @ 0.03 MCG/KG/MIN 0. 778 mls/hr IV .Q24H [facility] Rx#:[id number] Sodium Chloride 0.9% 1, 450 50 000 ml @ 50 mls/hr IV . Q20H [facility] Rx#:[id number] Vasopressin 60 unit In 108.63 0 14.586 Sodium Chloride 0.9% 150 ml @ 0.03 UNITS/MIN 4.59 mls/hr IV .Q24H [facility] Rx#: [id number] propofoL 1,000 mg In 45.567 Empty Bag 1 bag @ 15 MCG/ KG/MIN 4.98 mls/hr IV . Q20H5M [facility] Rx#:[id number] Output: Urine 610 530 100 Stool 250 250 Other: Voiding Method Indwelling Catheter Indwelling Catheter Indwelling Catheter ABP, PAP, CO, CI - Last Documented Arterial Blood Pressure 91/53 - Exam GENERAL:, In bed, sedated. Persistent lower extremity mottling. EYES: Pupils equal. Conjunctiva pale HEENT: External appearance of nose and ears normal, oral cavity dry mucous membranes. ET tube. NECK: JVD unable to assess; masses not palpable. HEART: First and second heart sounds are normal; no edema. LUNGS: Respiratory rate increased; decreased breath sounds. ABDOMEN: Soft,, nontender Liver spleen not palpable, no masses palpable. Midline [place]. Left-sided PABLO drain Right-sided ileostomy bag with soft stools PSYCH: Does open eyes MUSCULOSKELETAL:No Clubbing/cyanosis;muscles-grossly intact. Mottling of the lower extremities. Cold lower extremity. - Labs CBC & Chem 7: 06/05/23 05:15 06/05/23 05:15 Labs: Abnormal Lab Results - Last 24 Hours (Table) 06/04/23 06/04/23 06/05/23 Range/Units 12:01 23:53 05:15 WBC 19.4 H (3.8-10.6) k/uL RBC 3.22 L (3.80-5.40) m/uL Hgb 9.4 L (11.4-16.0) gm/dL Hct 29.0 L (34.0-46.0) % RDW 17.5 H (11.5-15.5) % Plt Count 109 L (150-450) k/uL ABG pO2 159 H (83-108) mmHg ABG O2 Saturation 98.4 H (94-97) % Chloride (98-107) mmol/L Carbon Dioxide (22-30) mmol/L BUN (7-17) mg/dL Creatinine (0.52-1.04) mg/dL POC Glucose (mg/dL) 60 L (70-110) mg/dL Calcium (8.4-10.2) mg/dL Total Bilirubin (0.2-1.3) mg/dL AST (14-36) U/L ALT (4-34) U/L Alkaline Phosphatase (38-126) U/L Creatine Kinase (30-135) U/L Total Protein (6.3-8.2) g/dL Albumin (3.5-5.0) g/dL 06/05/23 Range/Units 05:15 WBC (3.8-10.6) k/uL RBC (3.80-5.40) m/uL Hgb (11.4-16.0) gm/dL Hct (34.0-46.0) % RDW (11.5-15.5) % Plt Count (150-450) k/uL ABG pO2 (83-108) mmHg ABG O2 Saturation (94-97) % Chloride 116 H (98-107) mmol/L Carbon Dioxide 19 L (22-30) mmol/L BUN 50 H (7-17) mg/dL Creatinine 2.15 H (0.52-1.04) mg/dL POC Glucose (mg/dL) (70-110) mg/dL Calcium 6.0 L* (8.4-10.2) mg/dL Total Bilirubin 1.6 H (0.2-1.3) mg/dL AST 296 H (14-36) U/L ALT 130 H (4-34) U/L Alkaline Phosphatase 183 H (38-126) U/L Creatine Kinase 6515 H* (30-135) U/L Total Protein 4.1 L (6.3-8.2) g/dL Albumin 1.7 L (3.5-5.0) g/dL Assessment and Plan Assessment: Septic shock secondary to acute pneumoperitoneum and abdominal sepsis Acute fecal peritonitis Chronic constipation with previous right and left colectomy and colostomy with subsequent reversal Acute kidney injury secondary to above Acute rhabdomyolysis History of underlying COPD Acute hypoxic and hypercapnic respiratory failure secondary to above History of appendiceal carcinoma Remote history of pulmonary embolism, not anticoagulated History of cervical C3 stenosis Degenerative joint disease Chronic medical debility, longterm resident Acute thrombocytopenia secondary to sepsis Severe protein calorie malnutrition with hypoproteinemia and hypoalbuminemia Hypertension most likely secondary to hypovolemia noted today, will likely improve with more fluids and holding diuretics Recommendation: Continue ventilatory support, will give the patient a trial of pressure support and CPAP today, and if tolerated may extubate patient to BiPAP. Continue to hold diuretics Continue GI and DVT prophylaxis subcu heparin Continue bronchodilators Continue antibiotics and/Zosyn and Flagyl, and daptomycin Repeat blood cultures from 05/31 remain negative so far, negative in the last 72 hours
[2023-06-05] MEDS: DEXTROSE 50% SYRINGE 50 ML IVP PRN (17:58)
[2023-06-05] MEDS ORDERED: IPRATROPIUM-ALBUTEROL 3 ML NEB INHALATION PRN (21:01)
[2023-06-05 23:40] LABS: Glucose,Whole Blood 92 mg/dL (70-110)
[2023-06-05 23:53] LABS: Magnesium 1.8 mg/dL (1.6-2.3); Potassium 3.6 mmol/L (3.5-5.1)
[2023-06-06] MEDS: HYDROmorphone 1 MG/ML 1 ML SYRINGE IVP PRN ×5 (00:03→22:46)
[2023-06-06] MEDS ORDERED: MAGNESIUM SULFATE-D5W PMX 1 GM in DEXTROSE/WATER 1 100ML.BAG IVPB ONE (00:37)
[2023-06-06] MEDS ORDERED: POTASSIUM BICARBONATE/CIT AC 20 MEQ TABLET.EFF NG-TUBE SCH (01:00)
[2023-06-06] MEDS: metroNIDAZOLE-NS PMX 500 MG in SALINE 1 100ML.BAG IVPB SCH ×4 (04:07→22:23)
[2023-06-06] MEDS: SODIUM CHLORIDE 0.9% 1,000 ML IV SCH (04:08)
[2023-06-06 05:25] LABS: Glucose,Whole Blood 99 mg/dL (70-110)
[2023-06-06 07:50] LABS: Anisocytosis Slight; HCT 27.7 % (34.0-46.0); HGB 8.8 gm/dL (11.4-16.0); Hypochromasia Slight; MCH 28.6 pg (25.0-35.0); MCHC 31.7 g/dL (31.0-37.0); MCV 90.3 fL (80.0-100.0); Platelet Count 121 k/uL (150-450); RBC 3.06 m/uL (3.80-5.40); RDW 17.7 % (11.5-15.5); WBC 14.2 k/uL (3.8-10.6)
[2023-06-06] MEDS ORDERED: IPRATROPIUM-ALBUTEROL 3 ML NEB INHALATION SCH (08:00)
--- NOTE | 2023-06-06 08:03 | XR ---
EXAMINATION TYPE: XR chest 1V portable DATE OF EXAM: 06/06/2023 5:32 AM COMPARISON: Chest radiographs from 06/05/2023 TECHNIQUE: XR chest 1V portable Portable AP radiograph of the chest. CLINICAL INDICATION:Female, 63 years old with history of shortness of breath; FINDINGS: Lungs/Pleura: Increase in right pleural effusion with similar left pleural effusion. Pulmonary vascularity: Pulmonary vascular congestion. Heart/mediastinum: Cardiomediastinal silhouette is enlarged and stable. Atherosclerotic calcificatio ns are seen in the aorta. Musculoskeletal: No acute osseous pathology. Degenerative changes of the thoracic spine. Other findings: None Lines/Tubes: Stable left IJ central venous catheter. Stable NG tube. IMPRESSION: 1. Increased right moderate pleural effusion with similar small to moderate left pleural effusion. M ild coronary vascular congestion with cardiomegaly. Correlate for CHF exacerbation. 2. Stable support lines and tubes
[2023-06-06 08:16] LABS: African American GFR (CKD) 30 (>60 ml/min/1.73 sqM); Anion Gap 8 mmol/L; Blood Urea Nitrogen 50 mg/dL (7-17); Carbon Dioxide 21 mmol/L (22-30); Chloride 118 mmol/L (98-107); Glucose 86 mg/dL (74-99); Non-African American GFR(CKD) 26 (>60 ml/min/1.73 sqM); Potassium 3.9 mmol/L (3.5-5.1); Sodium 147 mmol/L (137-145)
--- NOTE | 2023-06-06 08:42 | P.PN ---
Subjective Progress Note Date: 06/03/23 Principal diagnosis: Sepsis and intra-abdominal abscess Patient is a 63-year-old female with a past medical history significant for COPD PE osteoarthritis patient presented to the hospital 2 days ago for evaluation of abdominal pain, CT abdominal pelvis large pneumoperitoneum with large fecal bolus of the rectum ,patient is status post subtotal colectomy and partial proctectomy. On today's evaluation that is 06/03/2023 patient remains to be afebrile patient remains to be intubated on the vent plan was for extubation however the patient was noted to have significant amount of gastric residual that has been suctioned out patient also noted to be hypotensive requiring pressor support no other changes reported by nursing staff. Patient did have a hemoglobin of 9.0-17.6 creatinine is 2.52 blood cultures with E. coli peritoneal cultures with anaerobes Clostridium's Enterococcus Objective - Vital Signs Vital signs: Vital Signs Temp 97.8 F 06/03/23 08:00 Pulse 101 H 06/03/23 11:00 Resp 20 06/03/23 11:00 BP 92/62 06/03/23 10:00 Pulse Ox 100 06/03/23 11:00 FiO2 50 06/03/23 10:31 Intake & Output 06/02/23 06/03/23 06/03/23 18:59 06:59 18:59 Intake Total 2144.740 1136.896 823.753 Output Total 1365 1415 1800 Balance 779.740 -278.104 -976.247 Weight 83.4 kg Intake: IV 1457 487 190 0.9 NS KVO 230 360 60 ARTERIAL LINE & CVP 72 27 30 Ampicillin-Sulbactam 3 gm 100 In Sodium Chloride 0.9% 100 ml @ 200 mls/hr IVPB Q12HR [facility] Rx#:[id number] Ampicillin-Sulbactam 3 gm 100 100 In Sodium Chloride 0.9% 100 ml @ 200 mls/hr IVPB Q12HR@1000,2200 [facility] Rx#: [id number] Calcium Gluconate in NaCl 0 2 gm In Saline 1 100ml. bag @ 100 mls/hr IVPB ONCE ONE Rx#:[id number] Calcium Gluconate in NaCl 100 2 gm In Saline 1 100ml. bag @ 100 mls/hr IVPB ONCE ONE Rx#:[id number] Magnesium Sulfate-D5w Pmx 100 1 gm In Dextrose/Water 1 100ml.bag @ 100 mls/hr IVPB Q1H [facility] Rx#: [id number] Potassium Chloride 10 meq 200 In Water For Injection 1 100ml.bag @ 100 mls/hr IVPB Q1H [facility] Rx#: [id number] Sodium Chloride 0.9% 1, 455 000 ml @ 100 mls/hr IV . Q10H [facility] Rx#:[id number] metroNIDAZOLE-NS PMX 500 200 mg In Saline 1 100ml.bag @ 100 mls/hr IVPB Q6H [facility] Rx#:[id number] Intake, IV Titration 57.740 9.896 413.753 Amount Calcium Gluconate in NaCl 100 2 gm In Saline 1 100ml. bag @ 100 mls/hr IVPB ONCE ONE Rx#:[id number] DAPTOmycin 350 mg In 50 Sodium Chloride 0.9% 50 ml @ 100 mls/hr IVPB Q48H [facility] Rx#:[id number] Norepinephrine 32 mg In 9.069 9.896 23.753 Sodium Chloride 0.9% 218 ml @ 0.03 MCG/KG/MIN 0. 778 mls/hr IV .Q24H [facility] Rx#:[id number] Sodium Chloride 0.9% 1, 240 000 ml @ 100 mls/hr IV . Q10H [facility] Rx#:[id number] propofoL 1,000 mg In 48.671 Empty Bag 1 bag @ 15 MCG/ KG/MIN 4.98 mls/hr IV . Q20H5M [facility] Rx#:[id number] Tube Feeding 540 550 150 Other 90 90 70 Output: Gastric Drainage 1300 Drainage 80 Left Lower Abdomen 80 Urine 1035 1165 500 Stool 250 250 Other: Voiding Method Indwelling Catheter Indwelling Catheter ABP, PAP, CO, CI - Last Documented Arterial Blood Pressure 116/69 - Exam GENERAL DESCRIPTION: Middle-aged female intubated on the vent RESPIRATORY SYSTEM: Unlabored breathing , decreased breath sounds at bases HEART: S1 S2 regular rate and rhythm , ABDOMEN: Soft , no tenderness EXTREMITIES: No edema feet - Labs CBC & Chem 7: 06/06/23 05:24 06/05/23 22:38 Labs: Abnormal Lab Results - Last 24 Hours (Table) 06/02/23 06/02/23 06/02/23 Range/Units 11:27 16:28 17:04 WBC (3.8-10.6) k/uL RBC (3.80-5.40) m/uL Hgb (11.4-16.0) gm/dL Hct (34.0-46.0) % RDW (11.5-15.5) % Plt Count (150-450) k/uL Neutrophils # (1.3-7.7) k/uL Lymphocytes # (1.0-4.8) k/uL ABG pH (7.35-7.45) ABG pO2 (83-108) mmHg ABG O2 Saturation (94-97) % Potassium 3.4 L (3.5-5.1) mmol/L Chloride (98-107) mmol/L Carbon Dioxide (22-30) mmol/L BUN (7-17) mg/dL Creatinine (0.52-1.04) mg/dL Glucose (74-99) mg/dL POC Glucose (mg/dL) 124 H 149 H (70-110) mg/dL Calcium (8.4-10.2) mg/dL Ionized Calcium Ines (4.5-5.3) mg/dL Total Bilirubin (0.2-1.3) mg/dL AST (14-36) U/L ALT (4-34) U/L Alkaline Phosphatase (38-126) U/L Creatine Kinase (30-135) U/L Total Protein (6.3-8.2) g/dL Albumin (3.5-5.0) g/dL 06/03/23 06/03/23 06/03/23 Range/Units 00:38 04:43 04:45 WBC (3.8-10.6) k/uL RBC (3.80-5.40) m/uL Hgb (11.4-16.0) gm/dL Hct (34.0-46.0) % RDW (11.5-15.5) % Plt Count (150-450) k/uL Neutrophils # (1.3-7.7) k/uL Lymphocytes # (1.0-4.8) k/uL ABG pH (7.35-7.45) ABG pO2 (83-108) mmHg ABG O2 Saturation (94-97) % Potassium 3.4 L (3.5-5.1) mmol/L Chloride 112 H (98-107) mmol/L Carbon Dioxide 19 L (22-30) mmol/L BUN 47 H (7-17) mg/dL Creatinine 2.52 H (0.52-1.04) mg/dL Glucose 110 H (74-99) mg/dL POC Glucose (mg/dL) 121 H 118 H (70-110) mg/dL Calcium 5.8 L* (8.4-10.2) mg/dL Ionized Calcium Ines 3.7 L (4.5-5.3) mg/dL Total Bilirubin 1.8 H (0.2-1.3) mg/dL AST 338 H (14-36) U/L ALT 145 H (4-34) U/L Alkaline Phosphatase 154 H (38-126) U/L Creatine Kinase 7950 H* (30-135) U/L Total Protein 4.0 L (6.3-8.2) g/dL Albumin 1.7 L (3.5-5.0) g/dL 06/03/23 06/03/23 Range/Units 04:45 06:28 WBC 19.6 H (3.8-10.6) k/uL RBC 3.23 L (3.80-5.40) m/uL Hgb 9.3 L (11.4-16.0) gm/dL Hct 29.2 L (34.0-46.0) % RDW 17.4 H (11.5-15.5) % Plt Count 51 L (150-450) k/uL Neutrophils # 18.7 H (1.3-7.7) k/uL Lymphocytes # 0.4 L (1.0-4.8) k/uL ABG pH 7.33 L (7.35-7.45) ABG pO2 136 H (83-108) mmHg ABG O2 Saturation 98.4 H (94-97) % Potassium (3.5-5.1) mmol/L Chloride (98-107) mmol/L Carbon Dioxide (22-30) mmol/L BUN (7-17) mg/dL Creatinine (0.52-1.04) mg/dL Glucose (74-99) mg/dL POC Glucose (mg/dL) (70-110) mg/dL Calcium (8.4-10.2) mg/dL Ionized Calcium Ines (4.5-5.3) mg/dL Total Bilirubin (0.2-1.3) mg/dL AST (14-36) U/L ALT (4-34) U/L Alkaline Phosphatase (38-126) U/L Creatine Kinase (30-135) U/L Total Protein (6.3-8.2) g/dL Albumin (3.5-5.0) g/dL Microbiology - Last 24 Hours (Table) 05/31/23 14:31 Blood Culture - Preliminary Blood 05/31/23 11:41 Blood Culture - Preliminary Blood Assessment and Plan (1) Sepsis Current Visit: Yes Status: Acute Code(s): A41.9 - SEPSIS, UNSPECIFIED ORGANISM SNOMED Code(s): 23636535 (2) Peritonitis Current Visit: Yes Status: Acute Code(s): K65.9 - PERITONITIS, UNSPECIFIED SNOMED Code(s): 29857482 Plan: 1patient with a septic shock secondary to perforated colorectal anastomosis and bowel ischemia this patient evidence of marginal improvement status post extensive surgery we will need to cover for detailed gram-negative the likely pathogen 2E. coli bacteremia source likely abdominal which is a sensitive pathogen, however abdominal culture also growing enterococcus that is resistant to ampicillin along with anaerobic gram-negative bacilli 3patient to continue with the current treatment of Unasyn and daptomycin and monitor clinical course closely prognosis remains to be guarded Dictation was produced using [employer] software. please excuse any grammatical, word or spelling errors.
[2023-06-06] MEDS: METOCLOPRAMIDE 10 MG TAB PO SCH ×3 (08:47→17:01)
[2023-06-06] MEDS: PANTOPRAZOLE 40 MG/10 ML VIAL IV SCH (08:48)
[2023-06-06] MEDS: AMPICILLIN-SULBACTAM 3 GM in SODIUM CHLORIDE 0.9% 100 ML IVPB SCH ×2 (08:48→22:20)
[2023-06-06] MEDS: FUROSEMIDE 10 MG/ML 4 ML VIAL IV SCH ×2 (08:48→15:23)
--- NOTE | 2023-06-06 08:48 | P.PN ---
Subjective Progress Note Date: 06/05/23 Principal diagnosis: Sepsis and intra-abdominal abscess Patient is a 63-year-old female with a past medical history significant for COPD PE osteoarthritis patient presented to the hospital 2 days ago for evaluation of abdominal pain, CT abdominal pelvis large pneumoperitoneum with large fecal bolus of the rectum ,patient is status post subtotal colectomy and partial proctectomy. On today's evaluation that is 06/05/2023 the patient remains to be afebrile, the patient has been extubated and is currently breathing comfortably on 3 L nasal cannula oxygen patient is lethargic but arousable and did ask some simple question denies any chest pain still causing some abdominal pain patient requiring low-dose pressor support no other changes reported by the nursing staff. Patient white count remains to be elevated 19.4 hemoglobin is 9.4 creatinine is 2.15 blood culture E. coli abdominal cultures with Clostridium anaerobes and Enterococcus Objective - Vital Signs Vital signs: Vital Signs Temp 97.9 F 06/05/23 08:00 Pulse 85 06/05/23 09:00 Resp 4 L 06/05/23 09:00 BP 107/68 06/04/23 09:00 Pulse Ox 100 06/05/23 09:00 FiO2 40 06/04/23 23:28 Intake & Output 06/04/23 06/05/23 06/05/23 18:59 06:59 18:59 Intake Total 2018.901 818.494 567.874 Output Total 610 780 350 Balance 1408.901 38.494 217.874 Weight 83.6 kg 88.7 kg Intake: IV 1270 716 368 ARTERIAL LINE & CVP 60 16 18 Ampicillin-Sulbactam 3 gm 50 100 100 In Sodium Chloride 0.9% 100 ml @ 200 mls/hr IVPB Q12HR@1000,2200 [facility] Rx#: [id number] Sodium Chloride 0.9% 1, 960 400 150 000 ml @ 100 mls/hr IV . Q10H [facility] Rx#:[id number] metroNIDAZOLE-NS PMX 500 200 200 100 mg In Saline 1 100ml.bag @ 100 mls/hr IVPB Q6H [facility] Rx#:[id number] Intake, IV Titration 748.901 102.494 199.874 Amount DAPTOmycin 350 mg In 50 Sodium Chloride 0.9% 50 ml @ 100 mls/hr IVPB Q48H [facility] Rx#:[id number] Magnesium Sulfate-D5w Pmx 100 1 gm In Dextrose/Water 1 100ml.bag @ 100 mls/hr IVPB ONCE ONE Rx#: [id number] Magnesium Sulfate-D5w Pmx 100 1 gm In Dextrose/Water 1 100ml.bag @ 100 mls/hr IVPB ONCE ONE Rx#: [id number] Norepinephrine 32 mg In 44.704 52.494 35.288 Sodium Chloride 0.9% 218 ml @ 0.03 MCG/KG/MIN 0. 778 mls/hr IV .Q24H [facility] Rx#:[id number] Sodium Chloride 0.9% 1, 450 50 000 ml @ 50 mls/hr IV . Q20H [facility] Rx#:[id number] Vasopressin 60 unit In 108.63 0 14.586 Sodium Chloride 0.9% 150 ml @ 0.03 UNITS/MIN 4.59 mls/hr IV .Q24H [facility] Rx#: [id number] propofoL 1,000 mg In 45.567 Empty Bag 1 bag @ 15 MCG/ KG/MIN 4.98 mls/hr IV . Q20H5M [facility] Rx#:[id number] Output: Urine 610 530 100 Stool 250 250 Other: Voiding Method Indwelling Catheter Indwelling Catheter Indwelling Catheter ABP, PAP, CO, CI - Last Documented Arterial Blood Pressure 91/53 - Exam GENERAL DESCRIPTION: Middle-aged female lying in bed in no distress RESPIRATORY SYSTEM: Unlabored breathing , decreased breath sounds at bases HEART: S1 S2 regular rate and rhythm , ABDOMEN: Soft , no tenderness EXTREMITIES: No edema feet - Labs CBC & Chem 7: 06/06/23 05:24 06/05/23 22:38 Labs: Abnormal Lab Results - Last 24 Hours (Table) 06/04/23 06/04/23 06/05/23 Range/Units 12:01 23:53 05:15 WBC 19.4 H (3.8-10.6) k/uL RBC 3.22 L (3.80-5.40) m/uL Hgb 9.4 L (11.4-16.0) gm/dL Hct 29.0 L (34.0-46.0) % RDW 17.5 H (11.5-15.5) % Plt Count 109 L (150-450) k/uL ABG pO2 159 H (83-108) mmHg ABG O2 Saturation 98.4 H (94-97) % Chloride (98-107) mmol/L Carbon Dioxide (22-30) mmol/L BUN (7-17) mg/dL Creatinine (0.52-1.04) mg/dL POC Glucose (mg/dL) 60 L (70-110) mg/dL Calcium (8.4-10.2) mg/dL Total Bilirubin (0.2-1.3) mg/dL AST (14-36) U/L ALT (4-34) U/L Alkaline Phosphatase (38-126) U/L Creatine Kinase (30-135) U/L Total Protein (6.3-8.2) g/dL Albumin (3.5-5.0) g/dL 06/05/23 Range/Units 05:15 WBC (3.8-10.6) k/uL RBC (3.80-5.40) m/uL Hgb (11.4-16.0) gm/dL Hct (34.0-46.0) % RDW (11.5-15.5) % Plt Count (150-450) k/uL ABG pO2 (83-108) mmHg ABG O2 Saturation (94-97) % Chloride 116 H (98-107) mmol/L Carbon Dioxide 19 L (22-30) mmol/L BUN 50 H (7-17) mg/dL Creatinine 2.15 H (0.52-1.04) mg/dL POC Glucose (mg/dL) (70-110) mg/dL Calcium 6.0 L* (8.4-10.2) mg/dL Total Bilirubin 1.6 H (0.2-1.3) mg/dL AST 296 H (14-36) U/L ALT 130 H (4-34) U/L Alkaline Phosphatase 183 H (38-126) U/L Creatine Kinase 6515 H* (30-135) U/L Total Protein 4.1 L (6.3-8.2) g/dL Albumin 1.7 L (3.5-5.0) g/dL Assessment and Plan (1) Sepsis Current Visit: Yes Status: Acute Code(s): A41.9 - SEPSIS, UNSPECIFIED ORGANISM SNOMED Code(s): 56246828 (2) Peritonitis Current Visit: Yes Status: Acute Code(s): K65.9 - PERITONITIS, UNSPECIFIED SNOMED Code(s): 81927409 Plan: 1patient with a septic shock secondary to perforated colorectal anastomosis and bowel ischemia this patient evidence of marginal improvement status post extensive surgery we will need to cover for detailed gram-negative the likely pathogen 2E. coli bacteremia source likely abdominal which is a sensitive pathogen, however abdominal culture also growing enterococcus that is resistant to ampicillin along with anaerobic gram-negative bacilli 3patient did have some clinical improvement the patient has been extubated still requiring some pressor support white count no worsening we will continue the patient on Unasyn and daptomycin and monitor her clinical course closely Dictation was produced using [employer] dictation software. please excuse any grammatical, word or spelling errors.
[2023-06-06 09:08] LABS: Calcium 6.1 mg/dL (8.4-10.2)
[2023-06-06] MEDS ORDERED: POTASSIUM BICARBONATE/CIT AC 20 MEQ TABLET.EFF PO ONE (09:10)
[2023-06-06] MEDS ORDERED: CALCIUM GLUCONATE IN NACL 2 GM in SALINE 1 100ML.BAG IVPB ONE (09:51)
[2023-06-06] MEDS: DEXTROSE 5% IN WATER 1,000 ML IV SCH ×2 (10:30→22:24)
--- NOTE | 2023-06-06 10:36 | P.PN ---
Subjective Patient is seen in follow-up for acute kidney injury. Renal function improving. On Levophed and vasopressin. Has NG tube. Receiving tube feeds. Vital signs are stable. On vasopressor support. General: No acute distress. HEENT: NG tube noted. LUNGS: No audible rhonchi or wheezes. HEART: Rate and Rhythm are regular. ABDOMEN: Wound VAC and colostomy noted. EXTREMITITES: 2+ edema. Lower extremity skin discoloration noted. Objective - Vital Signs Vital signs: Vital Signs Temp 97.6 F 06/06/23 08:00 Pulse 92 06/06/23 09:30 Resp 24 06/06/23 09:30 BP 107/68 06/04/23 09:00 Pulse Ox 97 06/06/23 09:30 FiO2 40 06/04/23 23:28 Intake & Output 06/05/23 06/06/23 06/06/23 18:59 06:59 18:59 Intake Total 2657.069 4098.396 184.350 Output Total 1260 625 250 Balance -36.769 508.396 -65.650 Weight 90.9 kg Intake: IV 872 1072 168 ARTERIAL LINE & CVP 72 72 18 Ampicillin-Sulbactam 3 gm 100 100 In Sodium Chloride 0.9% 100 ml @ 200 mls/hr IVPB Q12HR@1000,2200 [facility] Rx#: [id number] Magnesium Sulfate-D5w Pmx 100 1 gm In Dextrose/Water 1 100ml.bag @ 100 mls/hr IVPB Q1H [facility] Rx#: [id number] Sodium Chloride 0.9% 1, 600 600 150 000 ml @ 100 mls/hr IV . Q10H [facility] Rx#:[id number] metroNIDAZOLE-NS PMX 500 100 200 mg In Saline 1 100ml.bag @ 100 mls/hr IVPB Q6H [facility] Rx#:[id number] Intake, IV Titration 351.231 61.396 16.350 Amount Calcium Gluconate in NaCl 100 2 gm In Saline 1 100ml. bag @ 50 mls/hr IVPB ONCE ONE Rx#:[id number] DAPTOmycin 350 mg In 50 Sodium Chloride 0.9% 50 ml @ 100 mls/hr IVPB Q48H [facility] Rx#:[id number] Magnesium Sulfate-D5w Pmx 100 1 gm In Dextrose/Water 1 100ml.bag @ 100 mls/hr IVPB ONCE ONE Rx#: [id number] Norepinephrine 32 mg In 75.808 61.396 16.350 Sodium Chloride 0.9% 218 ml @ 0.03 MCG/KG/MIN 0. 778 mls/hr IV .Q24H [facility] Rx#:[id number] Vasopressin 60 unit In 25.423 Sodium Chloride 0.9% 150 ml @ 0.03 UNITS/MIN 4.59 mls/hr IV .Q24H [facility] Rx#: [id number] Output: Drainage 20 60 Left Lower Abdomen 20 60 Urine 490 625 190 Stool 750 Other: Voiding Method Indwelling Catheter Indwelling Catheter Indwelling Catheter ABP, PAP, CO, CI - Last Documented Arterial Blood Pressure 99/55 - Labs CBC & Chem 7: 06/06/23 05:24 06/06/23 05:24 Labs: Abnormal Lab Results - Last 24 Hours (Table) 06/06/23 06/06/23 06/06/23 Range/Units 05:24 05:24 05:24 WBC 14.2 H (3.8-10.6) k/uL RBC 3.06 L (3.80-5.40) m/uL Hgb 8.8 L (11.4-16.0) gm/dL Hct 27.7 L (34.0-46.0) % RDW 17.7 H (11.5-15.5) % Plt Count 121 L (150-450) k/uL Sodium 147 H (137-145) mmol/L Chloride 118 H (98-107) mmol/L Carbon Dioxide 21 L (22-30) mmol/L BUN 50 H (7-17) mg/dL Creatinine 1.97 H (0.52-1.04) mg/dL Calcium 6.1 L* (8.4-10.2) mg/dL Ionized Calcium Ines 3.9 L (4.5-5.3) mg/dL Microbiology - Last 24 Hours (Table) 05/31/23 14:31 Blood Culture - Final Blood 05/31/23 11:41 Blood Culture - Final Blood Assessment and Plan Plan: Assessment: 1. Acute kidney injury secondary to ATN secondary to rhabdomyolysis andseptic shock. Patient also received IV contrast on 05/26/[address] with IV contrast. No hydronephrosis was noted on CT. Baseline creatinine is 0.8. Creatinine peaked at 2.5 to this admission and is 1.97 today. 2. Septic shock secondary to perforated viscus with pneumoperitoneum status post exploratory laparotomy, subtotal colectomy, end ileostomy 05/27/2023. Blood culture positive for E. coli, fluid culture positive for E. coli and enterococcus. An IV fluids On vasopressor support. 3. Metabolic acidosis secondary to acute kidney injury and IV fluids. Better. 4. Hypocalcemia secondary to rhabdomyolysis and acute kidney injury. Vitamin D deficiency noted. On Drisdol. 5. Hypomagnesemia from poor intake. Replaced. Better. 6. Hypokalemia from poor intake. Replaced. Better. 7. Rhabdomyolysis. Suspect from immobility. 8. Hypernatremia from lack of oral water intake and free water losses. 9. Volume overload. Plan: Change IV fluids to D5W at 75 mL an hour. Agree with IV Lasix. Replace calcium. Wean FiO2 and vasopressors. Continue to monitor renal function and urine output. Prognosis guarded. Repeat CK level. 25 g IV albumin 2 doses today.
--- NOTE | 2023-06-06 10:37 | P.PN ---
Subjective Progress Note Date: 06/06/23 Principal diagnosis: Septic shock secondary to acute pneumoperitoneum and abdominal sepsis This is a 63-year-old female patient is currently being seen in the intensive care unit following abdominal surgery. The patient presented to the hospital because of abdominal pain and surgical consultation was obtained as the patient was found to have pneumoperitoneum. The patient had a CAT scan of the abdomen and pelvis that was done 05/26/2023 and the patient was found to have large pneumoperitoneum, large fecal bolus in the rectum. Fecal material was also seen in the sigmoid colon. There was evidence of cholelithiasis and ascites. Based on those findings, the patient was taken to the operating room today and the patient was given an LAD, subtotal colectomy, partial proctectomy and and ileostomy and open fecal decompression drainage of fecal peritonitis and left also also oophprectomy and salpingectomy. Postop, the patient was brought into the intensive care unit. She has already received a total of 5 L of IV fluids. Most recent BP is 81/50. The patient is also on pressors and norepinephrine is running at 0.25 mcg/kg/m. The patient has improved in her urine output which is producing approximately 40 mL an hour. She is fully sedated on propofol which is running at 50 mcg/kg/m. She is, comfortable and symptoms of the mechanical ventilator. I reviewed the initial blood gas that showed a pH of 7.12 with a pCO2 of 48 and a pO2 of more than 400. Subsequently, the patient was placed on assist-control mode at the rate of 26, tidal volume of 400 and FiO2 has been weaned down to 40% and she is currently on a PEEP of 5. The chest x-ray that was done following her abdominal surgery showed adequate positioning of 82. There is no evidence of any acute abnormalities. She has a left IJ triple-lumen catheter in place. The patient had evidence of renal failure, likely acute due to BUN of 47 and a creatinine of 1.78. She also has a mild anion gap metabolic acidosis. The lactic acid level was 2.7. Calcium level was low at 6.3. Serum albumin was 2.6 with a total protein of 4.8. The white cell cause of 3.2 with a hemoglobin of 11.4. She has a NG tube in place. Output from the NG is minimal are brown. Her white suppositive 3.2 with a hemoglobin of 11.4. She is currently covered with IV Zosyn and Flagyl. She was ordered started on a bicarb infusion. Note that the patient has had multiple abdominal surgeries in the past. She has undergone a previous right and left colectomy with end colostomy in September 2022 and subsequent reversal of the colostomy. She has COPD, hypothyroidism and she is a chronic smoker. The patient has had previous episodes of small bowel obstruction and large bowel obstruction. She suffers from chronic constipation. She is status post colectomy and colostomy for chronic thickened impaction approximately 9 months ago. She underwent subsequent reversal approximately 4 months ago but colostomy. On 05/30/2023, the patient is being seen for a follow-up. She remains critically ill following abdominal surgery and the patient continues to be septic although her condition is somewhat improved compared to yesterday. The skin mottling over the abdomen and lower extremity is improved and the patient continues to have absent pulses on the popliteal in her lower extremities bilaterally. She is more warm lower extremities and the cold and clamminess has essentially recovered. Meanwhile, she was seen by vascular surgery and no intervention has been recommended. She continues to be septic features re quiring pressors although the pressor requirements have improved compared to yesterday. She is on norepinephrine running at 0.1 microvascular kilogram per minute and she is also on vasopressin physiologic dose. She remains on a mechanical ventilator. Propofol is running at a dose of 20 mcg/kg/m. She is on assist-control mode of mechanical ventilation, rate of 20, tidal volume of 400, FiO2 of 40% with a PEEP of 5. Blood gas from today shows a pH of 7.44 with a pCO2 of 41 and pO2 of 150. Chest x-ray shows stable findings. Orotracheal tube is in a good location. NG tube is in a good location. She did have some left basilar atelectasis. Meanwhile, the NG tube is in place, output is in order of minimal.The ostomy is functional and there is some liquidy material collecting an ileostomy bag. PABLO drain output is minimal and it is serosanguineous. Abdominal wound looks dry clean and intact. The patient is arousable. She grimaces to painful stimulation. She remains on the sedation. The creatinine is up to 1.89 as the patient suffered an acute kidney injury. BUN is 43, sodium is 138 and the potassium levels at 3.8. The patient has a white cell count of 9.2 with a hemoglobin of 9.7. She remains nothing by mouth for the time being. Platelet count has been dropping and is currently down to 59. Heparin was discontinued yesterday. She remains on a combination of Zosyn and Flagyl. Cultures expected leak going gram-negative bacillus from the abdomen in the blood culture was also positive for E. coli and this E. coli is quinolone resistant. The patient is postop day #4 for the time being. Reevaluated today on 05/31/2023, patient remains in the ICU, intubated and mecha nically ventilated. She is on assist control rate of 2009 volume 400 FiO2 40% and PEEP of 5, ABG showed a pO2 of 148 pCO2 43 pH of 7.34 hence FiO2 was cut down to 35%. Patient is obviously quite ill, she remains very mottled with poor pulses in lower extremities remains on multiple pressors relatively high-dose including vasopressin at 0.03, norepinephrine at 0.14 mcg/kg/m upper followed at 15 mcg/kg/m. Her previous blood cultures have showed E. coli her urine output is 10-15 mL per hour. However went up as the norepinephrine was increased. Her mean arterial pressure is ranging between 60 up to 68. Remains on Flagyl and Zosyn continues to have colostomy in place, 55 mL output from the colostomy overnight. CODE STATUS has been changed to DO NOT RESUSCITATE patient remains on vital HPI 10 mL per hour. Chest x-ray continues to show left lower lobe consolidation. Overall the patient is doing poorly and she is quite ill. WBC count is 16.7 hemoglobin is 9.9, basic metabolic profile is normal bicarb is 22 BUN is 46 creatinine 2.24. Remains on Zosyn empirically she is also on Flagyl repeat blood cultures were requested today. Her last blood cultures were positive for E. coli Patient was reevaluated today on 06/01/2023, patient remains in the ICU, intubated and mechanically ventilated still on assist control rate of 2009 volume 400 FiO2 35% and PEEP of 5. Remains on norepinephrine at 0.12 mcg/kg/m also on vasopressin at 0.03 units per hour patient is on IV fluid at 1 35 mL per hour receiving vital HPI 10 mL per hour remains on Unasyn, she is also on daptomycin and Flagyl. Patient was given a trial off sedation yesterday and she was following simple instructions but she was generally weak. Blood pressure seems to be better today, nonetheless requiring norepinephrine and vasopressin. Continues to have wound VAC in place continues to have ostomy in place seems to be functional with some serous drainage in the ostomy tube. PABLO drain is draining some serous drainage also. CPKs seems to be quite high, and the patient remains mottled. ABG today showed a pO2 of 136 pCO2 39 pH of 7.31. WBC count is 19.3 hemoglobin 9.5 electrolytes are normal, BUN is 46 creatinine 2.34, slightly worse compared to creatinine yesterday of 2.4. CPK is 15,962 slightly higher compared to yesterday Patient was reevaluated today on 06/02/2023 remains in the ICU, intubated and mec hanically ventilated. Patient tolerated about 2 hours yesterday of pressure support and CPAP 09/07. May try to give her another trial today. In the meantime remains on mechanical ventilation with a rate of 20 that is an assist- control rate, volume 400 FiO2 35% PEEP of 5. ABG showed a pO2 of 148 pCO2 40 pH of 7.32 remains on norepinephrine at 0.04 mcg/kg/m vasopressin at 0.3 units per hour propofol at 20 mcg/kg/m and IV fluid at 1 25 mL per hour however considering the patient is in significant fluid balance, I will cut down the fluids to KVO and I will give the patient Lasix 20 mg IV push 1 today. Patient remains on enteral feeding, at 50 mL per hour vital AF. Chest x-ray continues to stable findings of bilateral lower lobe infiltrates and small effusion with mild vascular venous congestion WBC count today is 19.2 with a low hemoglobin 9.3 electrolytes are normal except for low potassium of 3.4, BUN is 46 creatinine 2.29, improving compared to yesterday at 2.34 Reevaluated/today on 06/03/2023, patient remains in the ICU, intubated and mechanically ventilated. As a matter of fact I was about to extubate the patient today, however after suctioning his stomach and significant volume with no significant residual from her feeding was removed patient developed hypotension with blood pressure down to the 60 systolic hence I held back on extubating the patient today. Patient will be given more fluids today, Lasix was placed on hold, and now she would likely require more norepinephrine and nor vasopressin. She was down to 0.02 mg/kg/m of norepinephrine and remains on 0.03 units of vasopressin. Remains on vital AF she is also on daptomycin and Unasyn. Her vent settings are assist control rate of 2009 volume 400 FiO2 35% PEEP of 5 ABG showed a pO2 of 136 pCO2 40 pH of 7.33 her renal functioning is a bit worse today, however I will increase her fluid status and I will hold the Lasix. CPK continues to trend down his and that 7000 range. WBC count is 19.6 hemoglobin is 9.3, basic metabolic profile is normal bicarb is 19 BUN is 47 creatinine 2.5, CPK is 7950 Patient was reevaluated today on 06/04/2023, remains in the ICU, intubated and mechanically ventilated patient had to be placed back yesterday on assist control mode of mechanical ventilation rate of 2009 volume 400 FiO2 35% and PEEP of 5. ABG today showed a pO2 of 133 pCO2 37 pH of 7.35. Patient is still requiring pressors with norepinephrine at 0.14 mcg/kg/m vasopressin at 0.03 units per minute patient remains on vital HPI and she is on propofol at 15 mcg/kg/m. Chest x-ray showed bilateral pleural effusions, and atelectasis. WBC count is 19.3 hemoglobin is 8.9 basic metabolic profile is normal BUN is 49 and creatinine 2.48 arrest slightly improved compared to yesterday's creatinine of 2.5, CPK is down to 6574 from around 8000 yesterday diuretics to remain on hold. Patient is receiving IV fluids because of her acute rhabdomyolysis and elevated CPK with acute kidney injury Reevaluated today on 06/05/2023, remains in the ICU, however the patient was extubated yesterday and tolerated the extubation well so far. She was on BiPAP with IPAP of 12 EPAP of 6 and 40% FiO2., However the patient was transitioned to a nasal cannula, 3 L/m with excellent O2 saturations, patient is still requiring pressors including norepinephrine at 0.22 and vasopressin is down to 0.01. Her tube feeding is presently on hold because the surgeon is concerned about ileus her chest x-ray continues to show small right-sided and left-sided pleural effusions her IV fluids remains at 50 mL per hour. CPK is 6515 renal profile is basically about the same, patient is being followed by nephrology. Remains on Unasyn daptomycin and Flagyl. WBC count today is 19.4 hemoglobin is 9.4 a left lites are normal BUN is 50 creatinine 2.15, it was 2.48 yesterday at 2.5 to the day prior had liver enzymes remained relatively elevated with a AST of 296 and alkaline phosphatase of 183. Reevaluated today on , patient remains in the ICU, remains on 2 L nasal cannula, however the patient is back on higher dose of pressors including norepinephrine at 0.2 mcg/kg/m and vasopressin at 0.03 units per minutes. Her blood pressure was marginal, and obviously she seems to be almost dependent on norepinephrine and vasopressin. Her IV fluids at 50 mL an hour she is receiving vitamin AF at 10 mL/h patient is also on Unasyn, daptomycin and Flagyl. Chest x-ray is showing worsening pleural effusions and atelectasis, I'm recommending Lasix to be given today. Last night the patient was on BiPAP with IPAP of 12 EPAP of 6 and 40% FiO2 but now she is on 2 L nasal cannula. Chest x-ray is concerning to me, hence I'm recommending some diuretics. Continues to have significant mottling of the lower extremities. Patient remains quite ill, and I don't believe she is quite ready to be considered for any transfer out of the ICU especially with her pressors on board including vasopressin and norepinephrine. WBC count is 14.2 hemoglobin is 8.8 her BUN is 50 creatinine 1.97, improved compared to creatinine over the last 5-6 days, sodium is a bit high, patient may benefit from free water flushes via her nasogastric tube Objective - Vital Signs Vital signs: Vital Signs Temp 97.6 F 06/06/23 08:00 Pulse 92 06/06/23 09:30 Resp 24 06/06/23 09:30 BP 107/68 06/04/23 09:00 Pulse Ox 97 06/06/23 09:30 FiO2 40 06/04/23 23:28 Intake & Output 06/05/23 06/06/23 06/06/23 18:59 06:59 18:59 Intake Total 9351.628 8279.396 184.350 Output Total 1260 625 250 Balance -36.769 508.396 -65.650 Weight 90.9 kg Intake: IV 872 1072 168 ARTERIAL LINE & CVP 72 72 18 Ampicillin-Sulbactam 3 gm 100 100 In Sodium Chloride 0.9% 100 ml @ 200 mls/hr IVPB Q12HR@1000,2200 [facility] Rx#: [id number] Magnesium Sulfate-D5w Pmx 100 1 gm In Dextrose/Water 1 100ml.bag @ 100 mls/hr IVPB Q1H [facility] Rx#: [id number] Sodium Chloride 0.9% 1, 600 600 150 000 ml @ 100 mls/hr IV . Q10H [facility] Rx#:[id number] metroNIDAZOLE-NS PMX 500 100 200 mg In Saline 1 100ml.bag @ 100 mls/hr IVPB Q6H [facility] Rx#:[id number] Intake, IV Titration 351.231 61.396 16.350 Amount Calcium Gluconate in NaCl 100 2 gm In Saline 1 100ml. bag @ 50 mls/hr IVPB ONCE ONE Rx#:[id number] DAPTOmycin 350 mg In 50 Sodium Chloride 0.9% 50 ml @ 100 mls/hr IVPB Q48H [facility] Rx#:[id number] Magnesium Sulfate-D5w Pmx 100 1 gm In Dextrose/Water 1 100ml.bag @ 100 mls/hr IVPB ONCE ONE Rx#: [id number] Norepinephrine 32 mg In 75.808 61.396 16.350 Sodium Chloride 0.9% 218 ml @ 0.03 MCG/KG/MIN 0. 778 mls/hr IV .Q24H [facility] Rx#:[id number] Vasopressin 60 unit In 25.423 Sodium Chloride 0.9% 150 ml @ 0.03 UNITS/MIN 4.59 mls/hr IV .Q24H [facility] Rx#: [id number] Output: Drainage 20 60 Left Lower Abdomen 20 60 Urine 490 625 190 Stool 750 Other: Voiding Method Indwelling Catheter Indwelling Catheter Indwelling Catheter ABP, PAP, CO, CI - Last Documented Arterial Blood Pressure 99/55 - Exam Physical Exam: Revealed 63-year-old female, on 2 L nasal cannula remains extremely weak Head: Atraumatic, normocephalic. HEENT:[Neck is supple.] [No neck masses.] [No thyromegaly.] [No JVD.] Chest: [Diminished breath sounds at the bases no rhonchi and no wheezes Cardiac Exam: [Normal S1 and S2, no S3 gallop, no murmur.] Abdomen: [Postsurgical, soft, nontender, diminished bowel sounds. Wound VAC noted PABLO drain noted ostomy seems to be functional. Extremities: Continues to have mottling of lower extremities, abdominal area, and diminished distal pulses Neurological Exam: Patient is awake, in no distress, following simple instruct ions, but generally weak. Psychiatric: Depressed mood. Flat affect, follows instructions Skin: Mottling of the skin is unchanged in lower extremities bilaterally - Labs CBC & Chem 7: 06/06/23 05:24 06/06/23 05:24 Labs: Abnormal Lab Results - Last 24 Hours (Table) 06/06/23 06/06/23 06/06/23 Range/Units 05:24 05:24 05:24 WBC 14.2 H (3.8-10.6) k/uL RBC 3.06 L (3.80-5.40) m/uL Hgb 8.8 L (11.4-16.0) gm/dL Hct 27.7 L (34.0-46.0) % RDW 17.7 H (11.5-15.5) % Plt Count 121 L (150-450) k/uL Sodium 147 H (137-145) mmol/L Chloride 118 H (98-107) mmol/L Carbon Dioxide 21 L (22-30) mmol/L BUN 50 H (7-17) mg/dL Creatinine 1.97 H (0.52-1.04) mg/dL Calcium 6.1 L* (8.4-10.2) mg/dL Ionized Calcium Ines 3.9 L (4.5-5.3) mg/dL Microbiology - Last 24 Hours (Table) 05/31/23 14:31 Blood Culture - Final Blood 05/31/23 11:41 Blood Culture - Final Blood Assessment and Plan Assessment: Impression: Septic shock secondary to acute pneumoperitoneum and abdominal sepsis Acute fecal peritonitis Chronic constipation with previous right and left colectomy and colostomy with subsequent reversal Acute kidney injury secondary to above Acute rhabdomyolysis History of underlying COPD Acute hypoxic and hypercapnic respiratory failure secondary to above History of appendiceal carcinoma Remote history of pulmonary embolism, not anticoagulated History of cervical C3 stenosis Degenerative joint disease Chronic medical debility, [facility] resident Acute thrombocytopenia secondary to sepsis Severe protein calorie malnutrition with hypoproteinemia and hypoalbuminemia Recommendation: Patient was extubated on 06/04/2023, and so far she seems to be tolerating the ex tubation well. Continue IV fluids at low rate, Lasix 40 mg IV push every 8 hours Continue GI and DVT prophylaxis Continue subcu heparin Continue bronchodilators Continue antibiotics and/Zosyn and Flagyl, and daptomycin Encourage incentive spirometry Cutdown on pressors including norepinephrine and vasopressin if possible that may improve her mottling of the skin and skin changes and lower extremities Restart enteral feeding Remains critically ill Chest test discussing with the family comfort care measures as the patient seems to be a failure to thrive. Check serum cortisol level, if low will consider placing the patient on Solu- Cortef. Will continue to monitor in the ICU. Critical care time is over 30 minutes Time with Patient: Greater than 30
[2023-06-06 11:41] LABS: Glucose,Whole Blood 98 mg/dL (70-110)
[2023-06-06 11:43] VITALS: BMI 37.8
[2023-06-06 12:29] LABS: Creatine Kinase 5121 U/L (30-135)
[2023-06-06] MEDS: ALBUMIN HUMAN 25% 50 ML in EMPTY BAG 1 BAG IVPB SCH ×2 (12:30→12:31)
[2023-06-06] MEDS ORDERED: MORPHINE SULFATE 4 MG/ML SYRINGE IV PRN (14:15)
[2023-06-06] MEDS ORDERED: LORazepam 2 MG/ML INJ IV PRN (14:15)
[2023-06-06] MEDS ORDERED: ATROPINE OPHTH SOLN 1% 5ML BTL SUBLINGUAL PRN (14:15)
--- NOTE | 2023-06-06 14:52 | P.PN ---
Subjective Progress Note Date: 06/06/23 CHIEF COMPLAINT: Abdominal pain HISTORY OF PRESENT ILLNESS: The patient is a 63-year-old female status post exploratory laparotomy, total abdominal colectomy proctectomy, evacuation fecal peritonitis, permanent end ileostomy, 05/27/2023. Patient was extubated 2 days ago. Per discussion with nurse, she has no family. Comfort care being sought due to dependency on pressors which has increased in the last 48 hrs of Levophed and vasopressin. Vascular surgery is seeing patient for cold right foot/lower leg. Patient has rhabdomyolysis. Her acute renal failure is improving. Patient has known COPD and steroid exposure. She has over 30+ pounds fluid excess. ROS: No reports of nausea and vomiting. No fevers or chills. No new chest pain. No productive sputum PHYSICAL EXAM: VITAL SIGNS: Reviewed CONSTITUTIONAL: Well developed and in no acute distress. EYES: Conjuctivae without sclera icterus. Extraocular movements grossly intact. HEAD, EARS, NOSE, THROAT: Moist buccal mucosa. Head is atraumatic, normocephalic. Hears conversational speech. No nasal drainage. RESPIRATORY: Non-labored respirations and equal bilateral excursions. CARDIOVASCULAR: Palpable 2+ radial pulses. ABDOMEN: Midline dressing PREVENA removed. PABLO serosanguineous. Ostomy patent and pink and functioning. Abdominal wall with epidermal lysis and ischemia. MUSCULOSKELETAL: Right leg cyanotic, cool to touch. Left flank warm. SKIN: Good skin turgor. Well perfused. NEUROLOGIC: Cranial nerves II through XII grossly intact. No focal or lateralizing signs. PSYCH: She awakes to commands. CLINICAL LABS: Reviewed. Cortisol level less than 25. WBC down 19,000 and 14,000. Platelets elevated at 50,000-120,000. MICRO: Cultures showing clostridium, E. coli and enterococcus species ASSESSMENT: 1. Sepsis due to perforated colon 2. Fecal peritonitis 3. Rhabdomyolysis 4. Chronic obstructive pulmonary disease 5. Clostridium within the wound 6. Right lower extremity ischemia 7. Septic shock with acute renal failure 8. Adrenal insufficiency PLAN: 1. Recent cortisol level reviewed. Patient has history of high dose steroid exposure from Aug 2022 chart review. Recommend hydrocortisone 100 mg every 8 hrs for adrenal insufficiency, persistent hypotension, despite pressors and fluid. 2. Recommend ostomy care. 3. Antibiotic management for clostridium, and septic shock 4. Comfort care pending response to treatment of adrenal insufficiency Objective - Vital Signs Vital signs: Vital Signs Temp 97.6 F 06/06/23 08:00 Pulse 92 06/06/23 12:00 Resp 15 06/06/23 12:00 BP 107/68 06/04/23 09:00 Pulse Ox 100 06/06/23 12:00 FiO2 40 06/04/23 23:28 Intake & Output 06/05/23 06/06/23 06/06/23 18:59 06:59 18:59 Intake Total 8823.591 2863.396 597.350 Output Total 1260 625 710 Balance -36.769 508.396 -112.650 Weight 90.9 kg Intake: IV 872 1072 286 ARTERIAL LINE & CVP 72 72 36 Ampicillin-Sulbactam 3 gm 100 100 In Sodium Chloride 0.9% 100 ml @ 200 mls/hr IVPB Q12HR@1000,2200 [facility] Rx#: [id number] Magnesium Sulfate-D5w Pmx 100 1 gm In Dextrose/Water 1 100ml.bag @ 100 mls/hr IVPB Q1H [facility] Rx#: [id number] Sodium Chloride 0.9% 1, 600 600 250 000 ml @ 100 mls/hr IV . Q10H [facility] Rx#:[id number] metroNIDAZOLE-NS PMX 500 100 200 mg In Saline 1 100ml.bag @ 100 mls/hr IVPB Q6H [facility] Rx#:[id number] Intake, IV Titration 351.231 61.396 291.350 Amount Albumin Human 25% 50 ml 200 In Empty Bag 1 bag @ 50 mls/hr IVPB Q1H [facility] Rx#: [id number] Calcium Gluconate in NaCl 100 2 gm In Saline 1 100ml. bag @ 50 mls/hr IVPB ONCE ONE Rx#:[id number] DAPTOmycin 350 mg In 50 Sodium Chloride 0.9% 50 ml @ 100 mls/hr IVPB Q48H [facility] Rx#:[id number] Dextrose 5% in Water 1, 75 000 ml @ 75 mls/hr IV . [id number] [facility] Rx#:[id number] Magnesium Sulfate-D5w Pmx 100 1 gm In Dextrose/Water 1 100ml.bag @ 100 mls/hr IVPB ONCE ONE Rx#: [id number] Norepinephrine 32 mg In 75.808 61.396 16.350 Sodium Chloride 0.9% 218 ml @ 0.03 MCG/KG/MIN 0. 778 mls/hr IV .Q24H [facility] Rx#:[id number] Vasopressin 60 unit In 25.423 Sodium Chloride 0.9% 150 ml @ 0.03 UNITS/MIN 4.59 mls/hr IV .Q24H [facility] Rx#: [id number] Tube Feeding 20 Output: Drainage 20 120 Left Lower Abdomen 20 120 Urine 490 625 590 Stool 750 Other: Voiding Method Indwelling Catheter Indwelling Catheter Indwelling Catheter ABP, PAP, CO, CI - Last Documented Arterial Blood Pressure 99/55 - Labs CBC & Chem 7: 06/06/23 05:24 06/06/23 05:24 Labs: Abnormal Lab Results - Last 24 Hours (Table) 06/06/23 06/06/23 06/06/23 Range/Units 05:24 05:24 05:24 WBC 14.2 H (3.8-10.6) k/uL RBC 3.06 L (3.80-5.40) m/uL Hgb 8.8 L (11.4-16.0) gm/dL Hct 27.7 L (34.0-46.0) % RDW 17.7 H (11.5-15.5) % Plt Count 121 L (150-450) k/uL Sodium 147 H (137-145) mmol/L Chloride 118 H (98-107) mmol/L Carbon Dioxide 21 L (22-30) mmol/L BUN 50 H (7-17) mg/dL Creatinine 1.97 H (0.52-1.04) mg/dL Calcium 6.1 L* (8.4-10.2) mg/dL Ionized Calcium Ines 3.9 L (4.5-5.3) mg/dL Creatine Kinase (30-135) U/L 06/06/23 Range/Units 05:24 WBC (3.8-10.6) k/uL RBC (3.80-5.40) m/uL Hgb (11.4-16.0) gm/dL Hct (34.0-46.0) % RDW (11.5-15.5) % Plt Count (150-450) k/uL Sodium (137-145) mmol/L Chloride (98-107) mmol/L Carbon Dioxide (22-30) mmol/L BUN (7-17) mg/dL Creatinine (0.52-1.04) mg/dL Calcium (8.4-10.2) mg/dL Ionized Calcium Ines (4.5-5.3) mg/dL Creatine Kinase 5121 H* (30-135) U/L Microbiology - Last 24 Hours (Table) 05/31/23 14:31 Blood Culture - Final Blood 05/31/23 11:41 Blood Culture - Final Blood
[2023-06-06] MEDS: HYDROCORTISONE SUCCINATE 100 MG/2 ML VIAL IV SCH (15:23)
[2023-06-06] MEDS: NOREPINEPHRINE 32 MG in SODIUM CHLORIDE 0.9% 218 ML IV SCH (16:32)
--- NOTE | 2023-06-06 16:34 | P.PN ---
Subjective Progress Note Date: 06/06/23 Principal diagnosis: Septic shock secondary to acute pneumoperitoneum and abdominal sepsis 63-year-old patient, who had severe ileus of right and left: And underwent right and left colectomy with end colostomy by Dr. Worthington on 09/21/2022. on January 29/2023 underwent exploratory laparotomy with takedown of colostomy and takedown of splenic flexure with partial colectomy and repair of incisional hernia and lysis of adhesions by Dr. Worthington. Following that patient had a thr ee-week stay in the hospital for protracted ileus. And finally was discharged on February 25. Patient then presented to the ER on the evening of May 26. Patient presented here from [facility]. Per EMS report patient had a bowel movement for about 3 days. And increasing abdominal discomfort. Patient has remained nonambulatory. Computed tomography scan in the ER showed large pne umoperitoneum. Large fecal bolus of the rectum. Gallstones. Ascites. Patient seen by Dr. Parikh from general surgery.. Patient was taken to the OR for exploratory laboratory yesterday and had subtotal colectomy with partial proctectomy carried out. About 200 mL of pelvic abscess fecal peritonitis was drained. End ileostomy was carried out. Incisional wound VAC prerenal was placed. Left salpingo-oophorectomy was done. Patient continues clean ICU. On the ventilator intubated. 06/05/2023 Patient is seen and evaluated; remains in the ICU; was extubated yesterday and tolerated the extubation well so far. She was on BiPAP with IPAP of 12 EPAP of 6 and 40% FiO2., However the patient was transitioned to a nasal cannula, 3 L/m with excellent O2 saturations, patient is still requiring pressors including norepinephrine at 0.22 and vasopressin is down to 0.01. Her tube feeding is presently on hold given concern about ileus -- chest x-ray continues to show small right-sided and left-sided pleural effusions her IV fluids remains at 50 mL per hour. CPK is 6515 renal profile is basically about the same, patient is being followed by nephrology. WBC count today is 19.4 hemoglobin is 9.4 a left lites are normal BUN is 50 creatinine 2.15, it was 2.48 yesterday at 2.5 to the day prior had liver enzymes remained relatively elevated with a AST of 296 and alkaline phosphatase of 183. Remains on Unasyn daptomycin and Flagyl. patient is seen and evaluated in room at bedside and discussed with nursing staff - Patient remains in the ICU, remains on 2 L nasal cannula, however the patient is back on higher dose of pressors. Her blood pressure was marginal -- patient is also on Unasyn, daptomycin and Flagyl. - Chest x-ray is showing worsening pleural effusions and atelectasis, patient received 1 dose of Lasix per [employer] communications recommendations - Continues to have significant mottling of the lower extremities. Patient remains quite ill, and I don't believe she is quite ready to be considered for any transfer out of the ICU especially with her pressors on board including vasopressin and norepinephrine. WBC count is 14.2 hemoglobin is 8.8 her BUN is 50 creatinine 1.97, improved compared to creatinine over the last 5-6 days, sodium is a bit high, patient may benefit from free water flushes via her nasogastric tube -- Prognosis remains guarded; patient's boyfriend visit patient is to hospice care; surgery wanting to continue the treatment for another 24 hours; further recommendations and course of action pending clinical outcome Objective - Vital Signs Vital signs: Vital Signs Temp 97.6 F 06/06/23 08:00 Pulse 92 06/06/23 12:00 Resp 15 06/06/23 12:00 BP 107/68 06/04/23 09:00 Pulse Ox 100 06/06/23 12:00 FiO2 40 06/04/23 23:28 Intake & Output 06/05/23 06/06/23 06/06/23 18:59 06:59 18:59 Intake Total 5675.563 3398.396 597.350 Output Total 1260 625 710 Balance -36.769 508.396 -112.650 Weight 90.9 kg Intake: IV 872 1072 286 ARTERIAL LINE & CVP 72 72 36 Ampicillin-Sulbactam 3 gm 100 100 In Sodium Chloride 0.9% 100 ml @ 200 mls/hr IVPB Q12HR@1000,2200 [facility] Rx#: [id number] Magnesium Sulfate-D5w Pmx 100 1 gm In Dextrose/Water 1 100ml.bag @ 100 mls/hr IVPB Q1H [facility] Rx#: [id number] Sodium Chloride 0.9% 1, 600 600 250 000 ml @ 100 mls/hr IV . Q10H [facility] Rx#:[id number] metroNIDAZOLE-NS PMX 500 100 200 mg In Saline 1 100ml.bag @ 100 mls/hr IVPB Q6H [facility] Rx#:[id number] Intake, IV Titration 351.231 61.396 291.350 Amount Albumin Human 25% 50 ml 200 In Empty Bag 1 bag @ 50 mls/hr IVPB Q1H [facility] Rx#: [id number] Calcium Gluconate in NaCl 100 2 gm In Saline 1 100ml. bag @ 50 mls/hr IVPB ONCE ONE Rx#:[id number] DAPTOmycin 350 mg In 50 Sodium Chloride 0.9% 50 ml @ 100 mls/hr IVPB Q48H [facility] Rx#:[id number] Dextrose 5% in Water 1, 75 000 ml @ 75 mls/hr IV . [id number] [facility] Rx#:[id number] Magnesium Sulfate-D5w Pmx 100 1 gm In Dextrose/Water 1 100ml.bag @ 100 mls/hr IVPB ONCE ONE Rx#: [id number] Norepinephrine 32 mg In 75.808 61.396 16.350 Sodium Chloride 0.9% 218 ml @ 0.03 MCG/KG/MIN 0. 778 mls/hr IV .Q24H [facility] Rx#:[id number] Vasopressin 60 unit In 25.423 Sodium Chloride 0.9% 150 ml @ 0.03 UNITS/MIN 4.59 mls/hr IV .Q24H [facility] Rx#: [id number] Tube Feeding 20 Output: Drainage 20 120 Left Lower Abdomen 20 120 Urine 490 625 590 Stool 750 Other: Voiding Method Indwelling Catheter Indwelling Catheter Indwelling Catheter ABP, PAP, CO, CI - Last Documented Arterial Blood Pressure 99/55 - Exam GENERAL:, In bed, sedated. Persistent lower extremity mottling. EYES: Pupils equal. Conjunctiva pale HEENT: External appearance of nose and ears normal, oral cavity dry mucous membranes. ET tube. NECK: JVD unable to assess; masses not palpable. HEART: First and second heart sounds are normal; no edema. LUNGS: Respiratory rate increased; decreased breath sounds. ABDOMEN: Soft,, nontender Liver spleen not palpable, no masses palpable. Midline Provena. Left-sided PABLO drain Right-sided ileostomy bag with soft stools PSYCH: Does open eyes MUSCULOSKELETAL:No Clubbing/cyanosis;muscles-grossly intact. Mottling of the lower extremities. Cold lower extremity. - Labs CBC & Chem 7: 06/06/23 05:24 06/06/23 05:24 Labs: Abnormal Lab Results - Last 24 Hours (Table) 06/06/23 06/06/23 06/06/23 Range/Units 05:24 05:24 05:24 WBC 14.2 H (3.8-10.6) k/uL RBC 3.06 L (3.80-5.40) m/uL Hgb 8.8 L (11.4-16.0) gm/dL Hct 27.7 L (34.0-46.0) % RDW 17.7 H (11.5-15.5) % Plt Count 121 L (150-450) k/uL Sodium 147 H (137-145) mmol/L Chloride 118 H (98-107) mmol/L Carbon Dioxide 21 L (22-30) mmol/L BUN 50 H (7-17) mg/dL Creatinine 1.97 H (0.52-1.04) mg/dL Calcium 6.1 L* (8.4-10.2) mg/dL Ionized Calcium Ines 3.9 L (4.5-5.3) mg/dL Creatine Kinase (30-135) U/L 06/06/23 Range/Units 05:24 WBC (3.8-10.6) k/uL RBC (3.80-5.40) m/uL Hgb (11.4-16.0) gm/dL Hct (34.0-46.0) % RDW (11.5-15.5) % Plt Count (150-450) k/uL Sodium (137-145) mmol/L Chloride (98-107) mmol/L Carbon Dioxide (22-30) mmol/L BUN (7-17) mg/dL Creatinine (0.52-1.04) mg/dL Calcium (8.4-10.2) mg/dL Ionized Calcium Ines (4.5-5.3) mg/dL Creatine Kinase 5121 H* (30-135) U/L Microbiology - Last 24 Hours (Table) 05/31/23 14:31 Blood Culture - Final Blood 05/31/23 11:41 Blood Culture - Final Blood Assessment and Plan Assessment: Septic shock secondary to acute pneumoperitoneum and abdominal sepsis Acute fecal peritonitis Chronic constipation with previous right and left colectomy and colostomy with subsequent reversal Acute kidney injury secondary to above Acute rhabdomyolysis History of underlying COPD Acute hypoxic and hypercapnic respiratory failure secondary to above History of appendiceal carcinoma Remote history of pulmonary embolism, not anticoagulated History of cervical C3 stenosis Degenerative joint disease Chronic medical debility, [facility] resident Acute thrombocytopenia secondary to sepsis Severe protein calorie malnutrition with hypoproteinemia and hypoalbuminemia Hypertension most likely secondary to hypovolemia noted today, will likely improve with more fluids and holding diuretics Recommendation: Continue ventilatory support, will give the patient a trial of pressure support and CPAP today, and if tolerated may extubate patient to BiPAP. Continue to hold diuretics Continue GI and DVT prophylaxis subcu heparin Continue bronchodilators Continue antibiotics and/Zosyn and Flagyl, and daptomycin Repeat blood cultures from 05/31 remain negative so far, negative in the last 72 hours
--- NOTE | 2023-06-06 16:39 | P.PN ---
Subjective Progress Note Date: 06/06/23 Principal diagnosis: Sepsis and intra-abdominal abscess Patient is a 63-year-old female with a past medical history significant for COPD PE osteoarthritis patient presented to the hospital 2 days ago for evaluation of abdominal pain, CT abdominal pelvis large pneumoperitoneum with large fecal bolus of the rectum ,patient is status post subtotal colectomy and partial proctectomy. On today's evaluation that is 06/06/2023 the patient continues to be afebrile, the patient is breathing comfortably on 2 L nasal cannula oxygen, patient is lethargic but arousable but overall not a good historian, patient requiring low- dose pressor support no other changes reported by the nursing staff. Patient white count is down to 14.2, hemoglobin is 8.8, creatinine is 1.97 blood culture E. coli abdominal cultures with Clostridium anaerobes and Enterococcus Objective - Vital Signs Vital signs: Vital Signs Temp 97.6 F 06/06/23 08:00 Pulse 92 06/06/23 12:00 Resp 15 06/06/23 12:00 BP 107/68 06/04/23 09:00 Pulse Ox 100 06/06/23 12:00 FiO2 40 06/04/23 23:28 Intake & Output 06/05/23 06/06/23 06/06/23 18:59 06:59 18:59 Intake Total 4985.594 4193.396 597.350 Output Total 1260 625 710 Balance -36.769 508.396 -112.650 Weight 90.9 kg Intake: IV 872 1072 286 ARTERIAL LINE & CVP 72 72 36 Ampicillin-Sulbactam 3 gm 100 100 In Sodium Chloride 0.9% 100 ml @ 200 mls/hr IVPB Q12HR@1000,2200 [facility] Rx#: [id number] Magnesium Sulfate-D5w Pmx 100 1 gm In Dextrose/Water 1 100ml.bag @ 100 mls/hr IVPB Q1H [facility] Rx#: [id number] Sodium Chloride 0.9% 1, 600 600 250 000 ml @ 100 mls/hr IV . Q10H [facility] Rx#:[id number] metroNIDAZOLE-NS PMX 500 100 200 mg In Saline 1 100ml.bag @ 100 mls/hr IVPB Q6H [facility] Rx#:[id number] Intake, IV Titration 351.231 61.396 291.350 Amount Albumin Human 25% 50 ml 200 In Empty Bag 1 bag @ 50 mls/hr IVPB Q1H [facility] Rx#: [id number] Calcium Gluconate in NaCl 100 2 gm In Saline 1 100ml. bag @ 50 mls/hr IVPB ONCE ONE Rx#:[id number] DAPTOmycin 350 mg In 50 Sodium Chloride 0.9% 50 ml @ 100 mls/hr IVPB Q48H [facility] Rx#:[id number] Dextrose 5% in Water 1, 75 000 ml @ 75 mls/hr IV . [id number] [facility] Rx#:[id number] Magnesium Sulfate-D5w Pmx 100 1 gm In Dextrose/Water 1 100ml.bag @ 100 mls/hr IVPB ONCE ONE Rx#: [id number] Norepinephrine 32 mg In 75.808 61.396 16.350 Sodium Chloride 0.9% 218 ml @ 0.03 MCG/KG/MIN 0. 778 mls/hr IV .Q24H [facility] Rx#:[id number] Vasopressin 60 unit In 25.423 Sodium Chloride 0.9% 150 ml @ 0.03 UNITS/MIN 4.59 mls/hr IV .Q24H [facility] Rx#: [id number] Tube Feeding 20 Output: Drainage 20 120 Left Lower Abdomen 20 120 Urine 490 625 590 Stool 750 Other: Voiding Method Indwelling Catheter Indwelling Catheter Indwelling Catheter ABP, PAP, CO, CI - Last Documented Arterial Blood Pressure 99/55 - Exam GENERAL DESCRIPTION: Middle-aged female lying in bed in no distress RESPIRATORY SYSTEM: Unlabored breathing , decreased breath sounds at bases HEART: S1 S2 regular rate and rhythm , ABDOMEN: Soft , no tenderness EXTREMITIES: No edema feet - Labs CBC & Chem 7: 06/06/23 05:24 06/06/23 05:24 Labs: Abnormal Lab Results - Last 24 Hours (Table) 06/06/23 06/06/23 06/06/23 Range/Units 05:24 05:24 05:24 WBC 14.2 H (3.8-10.6) k/uL RBC 3.06 L (3.80-5.40) m/uL Hgb 8.8 L (11.4-16.0) gm/dL Hct 27.7 L (34.0-46.0) % RDW 17.7 H (11.5-15.5) % Plt Count 121 L (150-450) k/uL Sodium 147 H (137-145) mmol/L Chloride 118 H (98-107) mmol/L Carbon Dioxide 21 L (22-30) mmol/L BUN 50 H (7-17) mg/dL Creatinine 1.97 H (0.52-1.04) mg/dL Calcium 6.1 L* (8.4-10.2) mg/dL Ionized Calcium Ines 3.9 L (4.5-5.3) mg/dL Creatine Kinase (30-135) U/L 06/06/23 Range/Units 05:24 WBC (3.8-10.6) k/uL RBC (3.80-5.40) m/uL Hgb (11.4-16.0) gm/dL Hct (34.0-46.0) % RDW (11.5-15.5) % Plt Count (150-450) k/uL Sodium (137-145) mmol/L Chloride (98-107) mmol/L Carbon Dioxide (22-30) mmol/L BUN (7-17) mg/dL Creatinine (0.52-1.04) mg/dL Calcium (8.4-10.2) mg/dL Ionized Calcium Ines (4.5-5.3) mg/dL Creatine Kinase 5121 H* (30-135) U/L Microbiology - Last 24 Hours (Table) 05/31/23 14:31 Blood Culture - Final Blood 05/31/23 11:41 Blood Culture - Final Blood Assessment and Plan (1) Sepsis Current Visit: Yes Status: Acute Code(s): A41.9 - SEPSIS, UNSPECIFIED ORGANISM SNOMED Code(s): 79939172 (2) Peritonitis Current Visit: Yes Status: Acute Code(s): K65.9 - PERITONITIS, UNSPECIFIED SNOMED Code(s): 25395890 Plan: 1patient with a septic shock secondary to perforated colorectal anastomosis and bowel ischemia this patient evidence of marginal improvement status post extensive surgery we will need to cover for detailed gram-negative the likely pathogen 2E. coli bacteremia source likely abdominal which is a sensitive pathogen, however abdominal culture also growing enterococcus that is resistant to ampicillin along with anaerobic gram-negative bacilli 3patient slowly clinically improving, the patient has been extubated still requiring some pressor support white count is trending down 4- we will continue the patient on Unasyn and daptomycin and monitor her clinical course closely Dictation was produced using [email or web address] dictation software. please excuse any grammatical, word or spelling errors. Time with Patient: Less than 30
[2023-06-06 17:31] LABS: Glucose,Whole Blood 127 mg/dL (70-110)
[2023-06-06] MEDS ORDERED: ALBUMIN HUMAN 25% 50 ML in EMPTY BAG 1 BAG IVPB SCH (18:00)
[2023-06-06] MEDS: VASOPRESSIN 60 UNIT in SODIUM CHLORIDE 0.9% 150 ML IV SCH (18:55)
[2023-06-06 23:46] LABS: Glucose,Whole Blood 174 mg/dL (70-110)
[2023-06-07] MEDS: HYDROCORTISONE SUCCINATE 100 MG/2 ML VIAL IV SCH ×3 (00:02→17:16)
[2023-06-07] MEDS: FUROSEMIDE 10 MG/ML 4 ML VIAL IV SCH ×3 (00:02→17:16)
[2023-06-07] MEDS: HYDROmorphone 1 MG/ML 1 ML SYRINGE IVP PRN ×3 (02:51→17:22)
[2023-06-07] MEDS: NOREPINEPHRINE 32 MG in SODIUM CHLORIDE 0.9% 218 ML IV SCH (03:25)
[2023-06-07 04:49] LABS: Anisocytosis Slight; HCT 25.1 % (34.0-46.0); HGB 7.8 gm/dL (11.4-16.0); Hypochromasia Marked; MCH 29.1 pg (25.0-35.0); MCV 93.7 fL (80.0-100.0); Mean Platelet Volume 10.8; Platelet Count 116 k/uL (150-450); RBC 2.67 m/uL (3.80-5.40); RDW 18.3 % (11.5-15.5); WBC 17.9 k/uL (3.8-10.6)
[2023-06-07] MEDS: metroNIDAZOLE-NS PMX 500 MG in SALINE 1 100ML.BAG IVPB SCH ×3 (05:28→17:17)
[2023-06-07 05:29] LABS: African American GFR (CKD) 30 (>60 ml/min/1.73 sqM); Anion Gap 10 mmol/L; Blood Urea Nitrogen 47 mg/dL (7-17); Calcium 6.5 mg/dL (8.4-10.2); Carbon Dioxide 22 mmol/L (22-30); Chloride 113 mmol/L (98-107); Glucose 202 mg/dL (74-99); Magnesium 1.8 mg/dL (1.6-2.3); Non-African American GFR(CKD) 26 (>60 ml/min/1.73 sqM); Sodium 145 mmol/L (137-145)
[2023-06-07 05:58] LABS: Glucose,Whole Blood 230 mg/dL (70-110)
[2023-06-07] MEDS ORDERED: POTASSIUM BICARBONATE/CIT AC 20 MEQ TABLET.EFF NG-TUBE SCH (06:00)
[2023-06-07] MEDS ORDERED: MAGNESIUM SULFATE-D5W PMX 1 GM in DEXTROSE/WATER 1 100ML.BAG IVPB ONE (06:00)
[2023-06-07 06:10] VITALS: BP 106/66
[2023-06-07] MEDS: METOCLOPRAMIDE 10 MG TAB PO SCH ×3 (06:42→17:17)
[2023-06-07] MEDS: PANTOPRAZOLE 40 MG/10 ML VIAL IV SCH (07:28)
--- NOTE | 2023-06-07 07:42 | XR ---
EXAMINATION TYPE: XR chest 1V portable DATE OF EXAM: 06/07/2023 5:39 AM COMPARISON: Chest radiographs from 06/06/2023 TECHNIQUE: XR chest 1V portable Portable AP radiograph of the chest. CLINICAL INDICATION:Female, 63 years old with history of respiratory failure; FINDINGS: Lungs/Pleura: Similar moderate right pleural effusion with small to moderate size left pleural effusi on. No pneumothorax. Pulmonary vascularity: Pulmonary vascular congestion. Heart/mediastinum: Cardiomediastinal silhouette is enlarged and stable. Atherosclerotic calcificatio ns are seen in the aorta. Musculoskeletal: No acute osseous pathology. Degenerative changes of the thoracic spine. Other findings: None Lines/Tubes: Stable left IJ central venous catheter. Stable NG tube. IMPRESSION: 1. Stable right moderate pleural effusion with similar small to moderate left pleural effusion. Mild pulmonary vascular congestion with cardiomegaly suggesting CHF exacerbation. 2. Stable support lines and tubes
[2023-06-07] MEDS: DAPTOmycin 350 MG in SODIUM CHLORIDE 0.9% 50 ML IVPB SCH (08:48)
[2023-06-07] MEDS: AMPICILLIN-SULBACTAM 3 GM in SODIUM CHLORIDE 0.9% 100 ML IVPB SCH (08:48)
--- NOTE | 2023-06-07 10:12 | P.PN ---
Subjective Patient is seen in follow-up for acute kidney injury. Renal function stable. On Levophed and vasopressin. Has NG tube. Receiving tube feeds. Also receiving D5W. Sodium level trending down. Vital signs are stable. On vasopressor support. General: No acute distress. HEENT: NG tube noted. LUNGS: No audible rhonchi or wheezes. HEART: Rate and Rhythm are regular. ABDOMEN: Wound VAC and colostomy noted. EXTREMITITES: 2+ edema. Lower extremity skin discoloration noted. Objective - Vital Signs Vital signs: Vital Signs Temp 98.1 F 06/07/23 08:00 Pulse 87 06/07/23 10:00 Resp 7 L 06/07/23 10:00 BP 106/66 06/07/23 10:00 Pulse Ox 95 06/07/23 10:00 FiO2 40 06/04/23 23:28 Intake & Output 06/06/23 06/07/23 06/07/23 18:59 06:59 18:59 Intake Total 1757.001 4034.663 551.886 Output Total 1925 1350 235 Balance -511.685 255.663 316.886 Weight 90.9 kg 90.6 kg Intake: IV 328 366 124 ARTERIAL LINE & CVP 78 66 24 Ampicillin-Sulbactam 3 gm 100 In Sodium Chloride 0.9% 100 ml @ 200 mls/hr IVPB Q12HR@1000,2200 [facility] Rx#: [id number] Magnesium Sulfate-D5w Pmx 100 1 gm In Dextrose/Water 1 100ml.bag @ 100 mls/hr IVPB Q1H [facility] Rx#: [id number] Sodium Chloride 0.9% 1, 250 000 ml @ 100 mls/hr IV . Q10H [facility] Rx#:[id number] metroNIDAZOLE-NS PMX 500 200 mg In Saline 1 100ml.bag @ 100 mls/hr IVPB Q6H [facility] Rx#:[id number] Intake, IV Titration 995.315 879.663 307.886 Amount Albumin Human 25% 50 ml 200 In Empty Bag 1 bag @ 50 mls/hr IVPB Q1H [facility] Rx#: [id number] Dextrose 5% in Water 1, 600 825 300 000 ml @ 75 mls/hr IV . [id number] [facility] Rx#:[id number] Norepinephrine 32 mg In 73.068 54.663 7.886 Sodium Chloride 0.9% 218 ml @ 0.03 MCG/KG/MIN 0. 778 mls/hr IV .Q24H [facility] Rx#:[id number] Vasopressin 60 unit In 122.247 Sodium Chloride 0.9% 150 ml @ 0.03 UNITS/MIN 4.59 mls/hr IV .Q24H [facility] Rx#: [id number] Tube Feeding 90 270 120 Other 90 Output: Drainage 260 20 Left Lower Abdomen 260 20 Urine 1665 1330 235 Other: Voiding Method Indwelling Catheter Indwelling Catheter Indwelling Catheter ABP, PAP, CO, CI - Last Documented Arterial Blood Pressure 77/46 - Labs CBC & Chem 7: 06/07/23 04:20 06/07/23 04:20 Labs: Abnormal Lab Results - Last 24 Hours (Table) 06/06/23 06/06/23 06/06/23 Range/Units 05:24 17:30 23:45 WBC (3.8-10.6) k/uL RBC (3.80-5.40) m/uL Hgb (11.4-16.0) gm/dL Hct (34.0-46.0) % RDW (11.5-15.5) % Plt Count (150-450) k/uL Chloride (98-107) mmol/L BUN (7-17) mg/dL Creatinine (0.52-1.04) mg/dL Glucose (74-99) mg/dL POC Glucose (mg/dL) 127 H 174 H (70-110) mg/dL Calcium (8.4-10.2) mg/dL Ionized Calcium Ines (4.5-5.3) mg/dL Creatine Kinase 5121 H* (30-135) U/L 06/07/23 06/07/23 06/07/23 Range/Units 04:20 04:20 05:57 WBC 17.9 H (3.8-10.6) k/uL RBC 2.67 L (3.80-5.40) m/uL Hgb 7.8 L (11.4-16.0) gm/dL Hct 25.1 L (34.0-46.0) % RDW 18.3 H (11.5-15.5) % Plt Count 116 L (150-450) k/uL Chloride 113 H (98-107) mmol/L BUN 47 H (7-17) mg/dL Creatinine 2.00 H (0.52-1.04) mg/dL Glucose 202 H (74-99) mg/dL POC Glucose (mg/dL) 230 H (70-110) mg/dL Calcium 6.5 L (8.4-10.2) mg/dL Ionized Calcium Ines 4.0 L (4.5-5.3) mg/dL Creatine Kinase (30-135) U/L Assessment and Plan Plan: Assessment: 1. Acute kidney injury secondary to ATN secondary to rhabdomyolysis andseptic shock. Patient also received IV contrast on 05/26/[address] with IV contrast. No hydronephrosis was noted on CT. Baseline creatinine is 0.8. Creatinine peaked at 2.5 to this admission and is stable at 2 today. 2. Septic shock secondary to perforated viscus with pneumoperitoneum status post exploratory laparotomy, subtotal colectomy, end ileostomy 05/27/2023. Blood culture positive for E. coli, fluid culture positive for E. coli and enterococcus. An IV fluids On vasopressor support. 3. Metabolic acidosis secondary to acute kidney injury and IV fluids. Better. 4. Hypocalcemia secondary to rhabdomyolysis and acute kidney injury. Vitamin D deficiency noted. On Drisdol. Improved. 5. Hypomagnesemia from poor intake. Replaced. Better. 6. Hypokalemia from poor intake. Replaced. Better. 7. Rhabdomyolysis. Suspect from immobility. CK levels trending down. 8. Hypernatremia from lack of oral water intake and free water losses. Improving with D5W. 9. Volume overload. Plan: Maintain D5W. Maintain IV Lasix. Wean FiO2 and vasopressors. Continue to monitor renal function and urine output. Prognosis guarded. Status post IV albumin given 06/06/2023.
--- NOTE | 2023-06-07 10:26 | P.PN ---
Subjective Progress Note Date: 06/07/23 CHIEF COMPLAINT: Abdominal pain HISTORY OF PRESENT ILLNESS: The patient is a 63-year-old female status post exploratory laparotomy, total abdominal colectomy proctectomy, evacuation fecal peritonitis, permanent end ileostomy, 05/27/2023. Patient was started on hydrocortisone with minimal decrease of vasopressors including Levophed. Her nurse communicated comfort care being sought by boyfriend. No signs of bleeding. ROS: No reports of nausea and vomiting. No fevers or chills. No new chest pain. PHYSICAL EXAM: VITAL SIGNS: Reviewed CONSTITUTIONAL: Well developed and in no acute distress. EYES: Conjuctivae without sclera icterus. Extraocular movements grossly intact. HEAD, EARS, NOSE, THROAT: Moist buccal mucosa. Head is atraumatic, normocephalic. Hears conversational speech. No nasal drainage. RESPIRATORY: Non-labored respirations and equal bilateral excursions. CARDIOVASCULAR: Palpable 2+ radial pulses. ABDOMEN: PABLO serosanguineous. Ostomy patent and pink and functioning. Abdominal wall with epidermal lysis and ischemia. MUSCULOSKELETAL: Right leg cyanotic, cool to touch. Left flank warm. Gross anasarca SKIN: Good skin turgor. Well perfused. NEUROLOGIC: Cranial nerves II through XII grossly intact. No focal or lateralizing signs. PSYCH: She awakes to commands. CLINICAL LABS: Reviewed. WBC down 19,000 and 14,000, now elevated over 17,000. Hemoglobin decline 9.4-7.8. Creatinine decreased 2.52-2.0. Electrolytes within normal limits MICRO: Cultures showing clostridium, E. coli and enterococcus species ASSESSMENT: 1. Sepsis due to perforated colon 2. Fecal peritonitis 3. Rhabdomyolysis 4. Chronic obstructive pulmonary disease 5. Clostridium within the wound 6. Right lower extremity ischemia 7. Septic shock with acute renal failure 8. Adrenal insufficiency PLAN: 1. Per discussion with nursing, patient has no family. She is no code per nursing after discussing with her boyfriend. 2. Review of records, comfort care being sought by consulting medicine team. 3. At this time, no documented living relative to help guide final medical care. 4. Will obtain Ethics committee for final decision of Comfort care/no code/hospice Objective - Vital Signs Vital signs: Vital Signs Temp 98.1 F 06/07/23 08:00 Pulse 87 06/07/23 10:00 Resp 7 L 06/07/23 10:00 BP 106/66 06/07/23 10:00 Pulse Ox 95 06/07/23 10:00 FiO2 40 06/04/23 23:28 Intake & Output 06/06/23 06/07/23 06/07/23 18:59 06:59 18:59 Intake Total 1958.095 2046.663 551.886 Output Total 1925 1350 235 Balance -511.685 255.663 316.886 Weight 90.9 kg 90.6 kg Intake: IV 328 366 124 ARTERIAL LINE & CVP 78 66 24 Ampicillin-Sulbactam 3 gm 100 In Sodium Chloride 0.9% 100 ml @ 200 mls/hr IVPB Q12HR@1000,2200 [facility] Rx#: [id number] Magnesium Sulfate-D5w Pmx 100 1 gm In Dextrose/Water 1 100ml.bag @ 100 mls/hr IVPB Q1H [facility] Rx#: [id number] Sodium Chloride 0.9% 1, 250 000 ml @ 100 mls/hr IV . Q10H [facility] Rx#:[id number] metroNIDAZOLE-NS PMX 500 200 mg In Saline 1 100ml.bag @ 100 mls/hr IVPB Q6H [facility] Rx#:[id number] Intake, IV Titration 995.315 879.663 307.886 Amount Albumin Human 25% 50 ml 200 In Empty Bag 1 bag @ 50 mls/hr IVPB Q1H [facility] Rx#: [id number] Dextrose 5% in Water 1, 600 825 300 000 ml @ 75 mls/hr IV . [id number] [facility] Rx#:[id number] Norepinephrine 32 mg In 73.068 54.663 7.886 Sodium Chloride 0.9% 218 ml @ 0.03 MCG/KG/MIN 0. 778 mls/hr IV .Q24H [facility] Rx#:[id number] Vasopressin 60 unit In 122.247 Sodium Chloride 0.9% 150 ml @ 0.03 UNITS/MIN 4.59 mls/hr IV .Q24H [facility] Rx#: [id number] Tube Feeding 90 270 120 Other 90 Output: Drainage 260 20 Left Lower Abdomen 260 20 Urine 1665 1330 235 Other: Voiding Method Indwelling Catheter Indwelling Catheter Indwelling Catheter ABP, PAP, CO, CI - Last Documented Arterial Blood Pressure 77/46 - Labs CBC & Chem 7: 06/07/23 04:20 06/07/23 04:20 Labs: Abnormal Lab Results - Last 24 Hours (Table) 06/06/23 06/06/23 06/06/23 Range/Units 05:24 17:30 23:45 WBC (3.8-10.6) k/uL RBC (3.80-5.40) m/uL Hgb (11.4-16.0) gm/dL Hct (34.0-46.0) % RDW (11.5-15.5) % Plt Count (150-450) k/uL Chloride (98-107) mmol/L BUN (7-17) mg/dL Creatinine (0.52-1.04) mg/dL Glucose (74-99) mg/dL POC Glucose (mg/dL) 127 H 174 H (70-110) mg/dL Calcium (8.4-10.2) mg/dL Ionized Calcium Ines (4.5-5.3) mg/dL Creatine Kinase 5121 H* (30-135) U/L 06/07/23 06/07/23 06/07/23 Range/Units 04:20 04:20 05:57 WBC 17.9 H (3.8-10.6) k/uL RBC 2.67 L (3.80-5.40) m/uL Hgb 7.8 L (11.4-16.0) gm/dL Hct 25.1 L (34.0-46.0) % RDW 18.3 H (11.5-15.5) % Plt Count 116 L (150-450) k/uL Chloride 113 H (98-107) mmol/L BUN 47 H (7-17) mg/dL Creatinine 2.00 H (0.52-1.04) mg/dL Glucose 202 H (74-99) mg/dL POC Glucose (mg/dL) 230 H (70-110) mg/dL Calcium 6.5 L (8.4-10.2) mg/dL Ionized Calcium Ines 4.0 L (4.5-5.3) mg/dL Creatine Kinase (30-135) U/L
--- NOTE | 2023-06-07 11:13 | P.PN ---
Subjective Progress Note Date: 06/07/23 Principal diagnosis: Septic shock secondary to acute pneumoperitoneum and abdominal sepsis This is a 63-year-old female patient is currently being seen in the intensive care unit following abdominal surgery. The patient presented to the hospital because of abdominal pain and surgical consultation was obtained as the patient was found to have pneumoperitoneum. The patient had a CAT scan of the abdomen and pelvis that was done 05/26/2023 and the patient was found to have large pneumoperitoneum, large fecal bolus in the rectum. Fecal material was also seen in the sigmoid colon. There was evidence of cholelithiasis and ascites. Based on those findings, the patient was taken to the operating room today and the patient was given an LAD, subtotal colectomy, partial proctectomy and and ileostomy and open fecal decompression drainage of fecal peritonitis and left also also oophprectomy and salpingectomy. Postop, the patient was brought into the intensive care unit. She has already received a total of 5 L of IV fluids. Most recent BP is 81/50. The patient is also on pressors and norepinephrine is running at 0.25 mcg/kg/m. The patient has improved in her urine output which is producing approximately 40 mL an hour. She is fully sedated on propofol which is running at 50 mcg/kg/m. She is, comfortable and symptoms of the mechanical ventilator. I reviewed the initial blood gas that showed a pH of 7.12 with a pCO2 of 48 and a pO2 of more than 400. Subsequently, the patient was placed on assist-control mode at the rate of 26, tidal volume of 400 and FiO2 has been weaned down to 40% and she is currently on a PEEP of 5. The chest x-ray that was done following her abdominal surgery showed adequate positioning of 82. There is no evidence of any acute abnormalities. She has a left IJ triple-lumen catheter in place. The patient had evidence of renal failure, likely acute due to BUN of 47 and a creatinine of 1.78. She also has a mild anion gap metabolic acidosis. The lactic acid level was 2.7. Calcium level was low at 6.3. Serum albumin was 2.6 with a total protein of 4.8. The white cell cause of 3.2 with a hemoglobin of 11.4. She has a NG tube in place. Output from the NG is minimal are brown. Her white suppositive 3.2 with a hemoglobin of 11.4. She is currently covered with IV Zosyn and Flagyl. She was ordered started on a bicarb infusion. Note that the patient has had multiple abdominal surgeries in the past. She has undergone a previous right and left colectomy with end colostomy in September 2022 and subsequent reversal of the colostomy. She has COPD, hypothyroidism and she is a chronic smoker. The patient has had previous episodes of small bowel obstruction and large bowel obstruction. She suffers from chronic constipation. She is status post colectomy and colostomy for chronic thickened impaction approximately 9 months ago. She underwent subsequent reversal approximately 4 months ago but colostomy. On 05/30/2023, the patient is being seen for a follow-up. She remains critically ill following abdominal surgery and the patient continues to be septic although her condition is somewhat improved compared to yesterday. The skin mottling over the abdomen and lower extremity is improved and the patient continues to have absent pulses on the popliteal in her lower extremities bilaterally. She is more warm lower extremities and the cold and clamminess has essentially recovered. Meanwhile, she was seen by vascular surgery and no intervention has been recommended. She continues to be septic features re quiring pressors although the pressor requirements have improved compared to yesterday. She is on norepinephrine running at 0.1 microvascular kilogram per minute and she is also on vasopressin physiologic dose. She remains on a mechanical ventilator. Propofol is running at a dose of 20 mcg/kg/m. She is on assist-control mode of mechanical ventilation, rate of 20, tidal volume of 400, FiO2 of 40% with a PEEP of 5. Blood gas from today shows a pH of 7.44 with a pCO2 of 41 and pO2 of 150. Chest x-ray shows stable findings. Orotracheal tube is in a good location. NG tube is in a good location. She did have some left basilar atelectasis. Meanwhile, the NG tube is in place, output is in order of minimal.The ostomy is functional and there is some liquidy material collecting an ileostomy bag. PABLO drain output is minimal and it is serosanguineous. Abdominal wound looks dry clean and intact. The patient is arousable. She grimaces to painful stimulation. She remains on the sedation. The creatinine is up to 1.89 as the patient suffered an acute kidney injury. BUN is 43, sodium is 138 and the potassium levels at 3.8. The patient has a white cell count of 9.2 with a hemoglobin of 9.7. She remains nothing by mouth for the time being. Platelet count has been dropping and is currently down to 59. Heparin was discontinued yesterday. She remains on a combination of Zosyn and Flagyl. Cultures expected leak going gram-negative bacillus from the abdomen in the blood culture was also positive for E. coli and this E. coli is quinolone resistant. The patient is postop day #4 for the time being. Reevaluated today on 05/31/2023, patient remains in the ICU, intubated and mecha nically ventilated. She is on assist control rate of 2009 volume 400 FiO2 40% and PEEP of 5, ABG showed a pO2 of 148 pCO2 43 pH of 7.34 hence FiO2 was cut down to 35%. Patient is obviously quite ill, she remains very mottled with poor pulses in lower extremities remains on multiple pressors relatively high-dose including vasopressin at 0.03, norepinephrine at 0.14 mcg/kg/m upper followed at 15 mcg/kg/m. Her previous blood cultures have showed E. coli her urine output is 10-15 mL per hour. However went up as the norepinephrine was increased. Her mean arterial pressure is ranging between 60 up to 68. Remains on Flagyl and Zosyn continues to have colostomy in place, 55 mL output from the colostomy overnight. CODE STATUS has been changed to DO NOT RESUSCITATE patient remains on vital HPI 10 mL per hour. Chest x-ray continues to show left lower lobe consolidation. Overall the patient is doing poorly and she is quite ill. WBC count is 16.7 hemoglobin is 9.9, basic metabolic profile is normal bicarb is 22 BUN is 46 creatinine 2.24. Remains on Zosyn empirically she is also on Flagyl repeat blood cultures were requested today. Her last blood cultures were positive for E. coli Patient was reevaluated today on 06/01/2023, patient remains in the ICU, intubated and mechanically ventilated still on assist control rate of 2009 volume 400 FiO2 35% and PEEP of 5. Remains on norepinephrine at 0.12 mcg/kg/m also on vasopressin at 0.03 units per hour patient is on IV fluid at 1 35 mL per hour receiving vital HPI 10 mL per hour remains on Unasyn, she is also on daptomycin and Flagyl. Patient was given a trial off sedation yesterday and she was following simple instructions but she was generally weak. Blood pressure seems to be better today, nonetheless requiring norepinephrine and vasopressin. Continues to have wound VAC in place continues to have ostomy in place seems to be functional with some serous drainage in the ostomy tube. PABLO drain is draining some serous drainage also. CPKs seems to be quite high, and the patient remains mottled. ABG today showed a pO2 of 136 pCO2 39 pH of 7.31. WBC count is 19.3 hemoglobin 9.5 electrolytes are normal, BUN is 46 creatinine 2.34, slightly worse compared to creatinine yesterday of 2.4. CPK is 15,962 slightly higher compared to yesterday Patient was reevaluated today on 06/02/2023 remains in the ICU, intubated and mec hanically ventilated. Patient tolerated about 2 hours yesterday of pressure support and CPAP 09/07. May try to give her another trial today. In the meantime remains on mechanical ventilation with a rate of 20 that is an assist- control rate, volume 400 FiO2 35% PEEP of 5. ABG showed a pO2 of 148 pCO2 40 pH of 7.32 remains on norepinephrine at 0.04 mcg/kg/m vasopressin at 0.3 units per hour propofol at 20 mcg/kg/m and IV fluid at 1 25 mL per hour however considering the patient is in significant fluid balance, I will cut down the fluids to KVO and I will give the patient Lasix 20 mg IV push 1 today. Patient remains on enteral feeding, at 50 mL per hour vital AF. Chest x-ray continues to stable findings of bilateral lower lobe infiltrates and small effusion with mild vascular venous congestion WBC count today is 19.2 with a low hemoglobin 9.3 electrolytes are normal except for low potassium of 3.4, BUN is 46 creatinine 2.29, improving compared to yesterday at 2.34 Reevaluated/today on 06/03/2023, patient remains in the ICU, intubated and mechanically ventilated. As a matter of fact I was about to extubate the patient today, however after suctioning his stomach and significant volume with no significant residual from her feeding was removed patient developed hypotension with blood pressure down to the 60 systolic hence I held back on extubating the patient today. Patient will be given more fluids today, Lasix was placed on hold, and now she would likely require more norepinephrine and nor vasopressin. She was down to 0.02 mg/kg/m of norepinephrine and remains on 0.03 units of vasopressin. Remains on vital AF she is also on daptomycin and Unasyn. Her vent settings are assist control rate of 2009 volume 400 FiO2 35% PEEP of 5 ABG showed a pO2 of 136 pCO2 40 pH of 7.33 her renal functioning is a bit worse today, however I will increase her fluid status and I will hold the Lasix. CPK continues to trend down his and that 7000 range. WBC count is 19.6 hemoglobin is 9.3, basic metabolic profile is normal bicarb is 19 BUN is 47 creatinine 2.5, CPK is 7950 Patient was reevaluated today on 06/04/2023, remains in the ICU, intubated and mechanically ventilated patient had to be placed back yesterday on assist control mode of mechanical ventilation rate of 2009 volume 400 FiO2 35% and PEEP of 5. ABG today showed a pO2 of 133 pCO2 37 pH of 7.35. Patient is still requiring pressors with norepinephrine at 0.14 mcg/kg/m vasopressin at 0.03 units per minute patient remains on vital HPI and she is on propofol at 15 mcg/kg/m. Chest x-ray showed bilateral pleural effusions, and atelectasis. WBC count is 19.3 hemoglobin is 8.9 basic metabolic profile is normal BUN is 49 and creatinine 2.48 arrest slightly improved compared to yesterday's creatinine of 2.5, CPK is down to 6574 from around 8000 yesterday diuretics to remain on hold. Patient is receiving IV fluids because of her acute rhabdomyolysis and elevated CPK with acute kidney injury Reevaluated today on 06/05/2023, remains in the ICU, however the patient was extubated yesterday and tolerated the extubation well so far. She was on BiPAP with IPAP of 12 EPAP of 6 and 40% FiO2., However the patient was transitioned to a nasal cannula, 3 L/m with excellent O2 saturations, patient is still requiring pressors including norepinephrine at 0.22 and vasopressin is down to 0.01. Her tube feeding is presently on hold because the surgeon is concerned about ileus her chest x-ray continues to show small right-sided and left-sided pleural effusions her IV fluids remains at 50 mL per hour. CPK is 6515 renal profile is basically about the same, patient is being followed by nephrology. Remains on Unasyn daptomycin and Flagyl. WBC count today is 19.4 hemoglobin is 9.4 a left lites are normal BUN is 50 creatinine 2.15, it was 2.48 yesterday at 2.5 to the day prior had liver enzymes remained relatively elevated with a AST of 296 and alkaline phosphatase of 183. Reevaluated today on , patient remains in the ICU, remains on 2 L nasal cannula, however the patient is back on higher dose of pressors including norepinephrine at 0.2 mcg/kg/m and vasopressin at 0.03 units per minutes. Her blood pressure was marginal, and obviously she seems to be almost dependent on norepinephrine and vasopressin. Her IV fluids at 50 mL an hour she is receiving vitamin AF at 10 mL/h patient is also on Unasyn, daptomycin and Flagyl. Chest x-ray is showing worsening pleural effusions and atelectasis, I'm recommending Lasix to be given today. Last night the patient was on BiPAP with IPAP of 12 EPAP of 6 and 40% FiO2 but now she is on 2 L nasal cannula. Chest x-ray is concerning to me, hence I'm recommending some diuretics. Continues to have significant mottling of the lower extremities. Patient remains quite ill, and I don't believe she is quite ready to be considered for any transfer out of the ICU especially with her pressors on board including vasopressin and norepinephrine. WBC count is 14.2 hemoglobin is 8.8 her BUN is 50 creatinine 1.97, improved compared to creatinine over the last 5-6 days, sodium is a bit high, patient may benefit from free water flushes via her nasogastric tube Reevaluated today on 06/07/2023, patient remains in the ICU, remains frail, looks chronically ill, patient is on 2 L nasal cannula but still requiring significant amount of vasopressors including norepinephrine at 0.16 mcg/kg/m and vasopressin at 0.03 units per minute. Patient remains on vital AF at 3 0 mL per hour remains on antibiotics/Flagyl, at night the patient goes on BiPAP with IPAP of 12 EPAP of 6 and 40% FiO2. Her CODE STATUS has been DO NOT RESUSCITATE all along, however considering the overall clinical picture, I believe this is more of a medical futility situation as far as making it out of the hospitalization, and yesterday I was notified by the nurses that her long-term boyfriend, patient has no family members agreed to proceed with comfort care and he was hoping that we could do comfort care measures on this patient. Considering her overall clinical picture and considering that I believe her chances of making it out of this hospitalization is extremely low not to mention the quality of life, I felt that the patient should go to comfort care. However patient was seen by surgery who is now seeking ethics committee evaluation to decide on comfort care measures. Again as far as my evaluation, patient has extremely poor chance of surviving this hospitalization considering the overall picture and at this point I believe this is more of a medical futility situation. Her labs today showed WBC count of 17.9 hemoglobin is 7.8 her basic metabolic profile is normal BUN is 47 creatinine 2.0 still being followed by nephrology, keeping patient on D5W and maintaining IV Lasix. Unable to wean her vasopressors at this point. Objective - Vital Signs Vital signs: Vital Signs Temp 98.1 F 06/07/23 08:00 Pulse 87 06/07/23 10:00 Resp 7 L 06/07/23 10:00 BP 106/66 06/07/23 10:00 Pulse Ox 95 06/07/23 10:00 FiO2 40 06/04/23 23:28 Intake & Output 06/06/23 06/07/23 06/07/23 18:59 06:59 18:59 Intake Total 3476.707 1438.663 551.886 Output Total 1925 1350 235 Balance -511.685 255.663 316.886 Weight 90.9 kg 90.6 kg Intake: IV 328 366 124 ARTERIAL LINE & CVP 78 66 24 Ampicillin-Sulbactam 3 gm 100 In Sodium Chloride 0.9% 100 ml @ 200 mls/hr IVPB Q12HR@1000,2200 [facility] Rx#: [id number] Magnesium Sulfate-D5w Pmx 100 1 gm In Dextrose/Water 1 100ml.bag @ 100 mls/hr IVPB Q1H [facility] Rx#: [id number] Sodium Chloride 0.9% 1, 250 000 ml @ 100 mls/hr IV . Q10H [facility] Rx#:[id number] metroNIDAZOLE-NS PMX 500 200 mg In Saline 1 100ml.bag @ 100 mls/hr IVPB Q6H [facility] Rx#:[id number] Intake, IV Titration 995.315 879.663 307.886 Amount Albumin Human 25% 50 ml 200 In Empty Bag 1 bag @ 50 mls/hr IVPB Q1H [facility] Rx#: [id number] Dextrose 5% in Water 1, 600 825 300 000 ml @ 75 mls/hr IV . [id number] [facility] Rx#:[id number] Norepinephrine 32 mg In 73.068 54.663 7.886 Sodium Chloride 0.9% 218 ml @ 0.03 MCG/KG/MIN 0. 778 mls/hr IV .Q24H [facility] Rx#:[id number] Vasopressin 60 unit In 122.247 Sodium Chloride 0.9% 150 ml @ 0.03 UNITS/MIN 4.59 mls/hr IV .Q24H [facility] Rx#: [id number] Tube Feeding 90 270 120 Other 90 Output: Drainage 260 20 Left Lower Abdomen 260 20 Urine 1665 1330 235 Other: Voiding Method Indwelling Catheter Indwelling Catheter Indwelling Catheter ABP, PAP, CO, CI - Last Documented Arterial Blood Pressure 77/46 - Exam Physical Exam: Revealed 63-year-old female, on 2 L nasal cannula remains extremely weak, frail looking, chronically ill-looking. Head: Atraumatic, normocephalic. HEENT:[Neck is supple.] [No neck masses.] [No thyromegaly.] [No JVD.] Chest: [Diminished breath sounds at the bases no rhonchi and no wheezes Cardiac Exam: [Normal S1 and S2, no S3 gallop, no murmur.] Abdomen: [Postsurgical, soft, nontender, diminished bowel sounds. Wound VAC noted PABLO drain noted ostomy seems to be functional. Extremities: Continues to have mottling of lower extremities, abdominal area, and diminished distal pulses Neurological Exam: Patient is awake, profoundly weak, questionable mental status/confusion Psychiatric: Depressed mood. Flat affect, follows instructions Skin: Mottling of the skin is unchanged in lower extremities bilaterally Musculoskeletal: Profound weakness throughout, patient has what seems to be a picture of critical illness Polyneuromyopathy - Labs CBC & Chem 7: 06/07/23 04:20 06/07/23 04:20 Labs: Abnormal Lab Results - Last 24 Hours (Table) 06/06/23 06/06/23 06/06/23 Range/Units 05:24 17:30 23:45 WBC (3.8-10.6) k/uL RBC (3.80-5.40) m/uL Hgb (11.4-16.0) gm/dL Hct (34.0-46.0) % RDW (11.5-15.5) % Plt Count (150-450) k/uL Chloride (98-107) mmol/L BUN (7-17) mg/dL Creatinine (0.52-1.04) mg/dL Glucose (74-99) mg/dL POC Glucose (mg/dL) 127 H 174 H (70-110) mg/dL Calcium (8.4-10.2) mg/dL Ionized Calcium Ines (4.5-5.3) mg/dL Creatine Kinase 5121 H* (30-135) U/L 06/07/23 06/07/23 06/07/23 Range/Units 04:20 04:20 05:57 WBC 17.9 H (3.8-10.6) k/uL RBC 2.67 L (3.80-5.40) m/uL Hgb 7.8 L (11.4-16.0) gm/dL Hct 25.1 L (34.0-46.0) % RDW 18.3 H (11.5-15.5) % Plt Count 116 L (150-450) k/uL Chloride 113 H (98-107) mmol/L BUN 47 H (7-17) mg/dL Creatinine 2.00 H (0.52-1.04) mg/dL Glucose 202 H (74-99) mg/dL POC Glucose (mg/dL) 230 H (70-110) mg/dL Calcium 6.5 L (8.4-10.2) mg/dL Ionized Calcium Ines 4.0 L (4.5-5.3) mg/dL Creatine Kinase (30-135) U/L Assessment and Plan Assessment: Impression: Septic shock secondary to acute pneumoperitoneum and abdominal sepsis Acute fecal peritonitis Chronic constipation with previous right and left colectomy and colostomy with subsequent reversal Acute kidney injury secondary to above Acute rhabdomyolysis History of underlying COPD Acute hypoxic and hypercapnic respiratory failure secondary to above History of appendiceal carcinoma Remote history of pulmonary embolism, not anticoagulated History of cervical C3 stenosis Degenerative joint disease Chronic medical debility, pen[facility] resident Acute thrombocytopenia secondary to sepsis Severe protein calorie malnutrition with hypoproteinemia and hypoalbuminemia Critical illness polyneuropathy with profound weakness Recommendation: Patient was extubated on 06/04/2023, and so far she seems to be tolerating the extubation well. Continue IV fluids at low rate, Continue Lasix as per nephrology Continue GI and DVT prophylaxis Continue subcu heparin Continue bronchodilators Continue antibiotics as per infectious disease on the case Encourage incentive spirometry Titrate pressors accordingly Continue enteral feeding Remains critically ill, patient has extremely poor prognosis I believe even at this point this is more of a medical futility circulation. Patient may have to be considered for comfort care measures and I strongly recommend it Will continue to monitor in the ICU. For now Critical care time is over 30 minutes Time with Patient: Greater than 30
[2023-06-07] MEDS ORDERED: DEXTROSE 50% SYRINGE 50 ML IVP PRN ×2 (11:45)
[2023-06-07 11:49] LABS: Glucose,Whole Blood 256 mg/dL (70-110)
[2023-06-07] MEDS: DEXTROSE 5% IN WATER 1,000 ML IV SCH (12:39)
[2023-06-07] MEDS: INSULIN ASPART (NovoLOG) 100 UNIT/ML VIAL SQ SCH ×2 (12:43→17:17)
[2023-06-07 16:05] VITALS: TEMP 98.1
--- NOTE | 2023-06-07 16:41 | P.PN ---
Subjective Progress Note Date: 06/07/23 Principal diagnosis: Sepsis and intra-abdominal abscess Patient is a 63-year-old female with a past medical history significant for COPD PE osteoarthritis patient presented to the hospital 2 days ago for evaluation of abdominal pain, CT abdominal pelvis large pneumoperitoneum with large fecal bolus of the rectum ,patient is status post subtotal colectomy and partial proctectomy. On today's evaluation that is 06/07/2023 for the patient remains to be afebrile, the patient is currently on BiPAP lethargic and unable to report any history regarding low-dose pressor support with an assist of no other changes reported The patient white count is up to 17.9, creatinine is 2.0 Objective - Vital Signs Vital signs: Vital Signs Temp 98.1 F 06/07/23 16:00 Pulse 80 06/07/23 16:00 Resp 18 06/07/23 16:00 BP 106/66 06/07/23 10:00 Pulse Ox 91 L 06/07/23 14:30 FiO2 40 06/07/23 16:00 Intake & Output 06/06/23 06/07/23 06/07/23 18:59 06:59 18:59 Intake Total 3111.384 4361.663 1386.129 Output Total 1925 1350 760 Balance -511.685 255.663 626.129 Weight 90.9 kg 90.6 kg Intake: IV 328 366 260 ARTERIAL LINE & CVP 78 66 60 Ampicillin-Sulbactam 3 gm 100 In Sodium Chloride 0.9% 100 ml @ 200 mls/hr IVPB Q12HR@1000,2200 [facility] Rx#: [id number] Magnesium Sulfate-D5w Pmx 100 1 gm In Dextrose/Water 1 100ml.bag @ 100 mls/hr IVPB Q1H [facility] Rx#: [id number] Sodium Chloride 0.9% 1, 250 000 ml @ 100 mls/hr IV . Q10H [facility] Rx#:[id number] metroNIDAZOLE-NS PMX 500 200 100 mg In Saline 1 100ml.bag @ 100 mls/hr IVPB Q6H [facility] Rx#:[id number] Intake, IV Titration 995.315 879.663 826.129 Amount Albumin Human 25% 50 ml 200 In Empty Bag 1 bag @ 50 mls/hr IVPB Q1H [facility] Rx#: [id number] DAPTOmycin 350 mg In 50 Sodium Chloride 0.9% 50 ml @ 100 mls/hr IVPB Q48H [facility] Rx#:[id number] Dextrose 5% in Water 1, 600 825 750 000 ml @ 75 mls/hr IV . [id number] [facility] Rx#:[id number] Norepinephrine 32 mg In 73.068 54.663 26.129 Sodium Chloride 0.9% 218 ml @ 0.03 MCG/KG/MIN 0. 778 mls/hr IV .Q24H [facility] Rx#:[id number] Vasopressin 60 unit In 122.247 Sodium Chloride 0.9% 150 ml @ 0.03 UNITS/MIN 4.59 mls/hr IV .Q24H [facility] Rx#: [id number] Tube Feeding 90 270 300 Other 90 Output: Drainage 260 20 Left Lower Abdomen 260 20 Urine 1665 1330 760 Other: Voiding Method Indwelling Catheter Indwelling Catheter Indwelling Catheter ABP, PAP, CO, CI - Last Documented Arterial Blood Pressure 98/58 - Exam GENERAL DESCRIPTION: Middle-aged female lying in bed in no distress RESPIRATORY SYSTEM: Unlabored breathing , decreased breath sounds at bases HEART: S1 S2 regular rate and rhythm , ABDOMEN: Soft , no tenderness EXTREMITIES: No edema feet - Labs CBC & Chem 7: 06/07/23 04:20 06/07/23 04:20 Labs: Abnormal Lab Results - Last 24 Hours (Table) 06/06/23 06/06/23 06/07/23 Range/Units 17:30 23:45 04:20 WBC (3.8-10.6) k/uL RBC (3.80-5.40) m/uL Hgb (11.4-16.0) gm/dL Hct (34.0-46.0) % RDW (11.5-15.5) % Plt Count (150-450) k/uL Chloride 113 H (98-107) mmol/L BUN 47 H (7-17) mg/dL Creatinine 2.00 H (0.52-1.04) mg/dL Glucose 202 H (74-99) mg/dL POC Glucose (mg/dL) 127 H 174 H (70-110) mg/dL Calcium 6.5 L (8.4-10.2) mg/dL Ionized Calcium Ines 4.0 L (4.5-5.3) mg/dL 06/07/23 06/07/23 06/07/23 Range/Units 04:20 05:57 11:47 WBC 17.9 H (3.8-10.6) k/uL RBC 2.67 L (3.80-5.40) m/uL Hgb 7.8 L (11.4-16.0) gm/dL Hct 25.1 L (34.0-46.0) % RDW 18.3 H (11.5-15.5) % Plt Count 116 L (150-450) k/uL Chloride (98-107) mmol/L BUN (7-17) mg/dL Creatinine (0.52-1.04) mg/dL Glucose (74-99) mg/dL POC Glucose (mg/dL) 230 H 256 H (70-110) mg/dL Calcium (8.4-10.2) mg/dL Ionized Calcium Ines (4.5-5.3) mg/dL Assessment and Plan (1) Sepsis Current Visit: Yes Status: Acute Code(s): A41.9 - SEPSIS, UNSPECIFIED ORGANISM SNOMED Code(s): 18851223 (2) Peritonitis Current Visit: Yes Status: Acute Code(s): K65.9 - PERITONITIS, UNSPECIFIED SNOMED Code(s): 40671242 Plan: 1patient with a septic shock secondary to perforated colorectal anastomosis and bowel ischemia this patient evidence of marginal improvement status post extensive surgery we will need to cover for detailed gram-negative the likely pathogen 2E. coli bacteremia source likely abdominal which is a sensitive pathogen, however abdominal culture also growing enterococcus that is resistant to ampicillin along with anaerobic gram-negative bacilli 3patient worsening of the white count likely related to Solu-Cortef and the patient white count and monitor closely 4- patient to continue with Unasyn and daptomycin and continue supportive care Dictation was produced using [employer] dictation software. please excuse any grammatical, word or spelling errors. Time with Patient: Less than 30
[2023-06-07 17:16] LABS: Glucose,Whole Blood 229 mg/dL (70-110)
--- NOTE | 2023-06-07 18:16 | P.PN ---
Subjective Progress Note Date: 06/07/23 CHIEF COMPLAINT: Abdominal pain HISTORY OF PRESENT ILLNESS: The patient is a 63-year-old female status post exploratory laparotomy, total abdominal colectomy proctectomy, evacuation fecal peritonitis, permanent end ileostomy, 05/27/2023. She remains in the intensive care unit with cardiopulmonary support. She is on BiPAP. Patient's significant other Destin contacted at [phone]. Questions from her most r ecent surgery, extubation and significant decline in health reviewed. "Priscila does not want to live like this." He reports patient's overall health started to decline from her initial surgery September 2022 with colostomy creation. He reports contacting the patient's sister who had not seen her in over 30+ years. He reports her sister could not articulate the patient's date of and wanted nothing to do with her care. Additional documentation from recreational director including hospitalist includes nonrecoverable sepsis including septic shock and cold leg ischemia. Patient's chance of survival is poor. Attempts of hydrocortisone were given without improvement of her blood pressure as well. She is on tube feeds at 30 mL/h with additional IV fluids Flagyl, levophed, vasopressin. Patient is DO NOT RESUSCITATE. She awakens to voice however unable to follow commands. PHYSICAL EXAM: VITAL SIGNS: Reviewed CONSTITUTIONAL: Well developed and in no acute distress. EYES: Conjuctivae without sclera icterus. Extraocular movements grossly intact. HEAD, EARS, NOSE, THROAT: Moist buccal mucosa. Head is atraumatic, normocephalic. Hears conversational speech. No nasal drainage. RESPIRATORY: Non-labored respirations and equal bilateral excursions. CARDIOVASCULAR: Palpable 2+ radial pulses. ABDOMEN: PABLO serosanguineous. Ostomy patent and pink and functioning. MUSCULOSKELETAL: Right leg ischemia. Severe generalized anasarca SKIN: Cool to touch. NEUROLOGIC: Cranial nerves II through XII grossly intact. No focal or lateralizing signs. PSYCH: She awakes to commands. CLINICAL LABS: Reviewed. WBC down 19,000 and 14,000, now elevated over 17,000. Hemoglobin decline 9.4-7.8. Creatinine decreased 2.52-2.0. Electrolytes within normal limits. Blood sugar glucose 220s to 250s. ASSESSMENT: 1. Sepsis due to perforated colon 2. Fecal peritonitis 3. Rhabdomyolysis 4. Chronic obstructive pulmonary disease 5. Clostridium within the wound 6. Right lower extremity ischemia 7. Septic shock with acute renal failure 8. Adrenal insufficiency PLAN: 1. After complete discussion with significant other, Destin including answering questions and additional documentation by multiple providers that prognosis is poor with comfort care advised, may initiate comfort care. Supervisor Roving notified. 2. Ethics committee consult canceled. Objective - Vital Signs Vital signs: Vital Signs Temp 98.1 F 06/07/23 16:00 Pulse 79 06/07/23 17:30 Resp 15 06/07/23 17:30 BP 106/66 06/07/23 10:00 Pulse Ox 100 06/07/23 17:30 FiO2 40 06/07/23 16:00 Intake & Output 06/06/23 06/07/23 06/07/23 18:59 06:59 18:59 Intake Total 5225.088 8332.663 1597.129 Output Total 1925 1350 1585 Balance -511.685 255.663 12.129 Weight 90.9 kg 90.6 kg Intake: IV 328 366 366 ARTERIAL LINE & CVP 78 66 66 Ampicillin-Sulbactam 3 gm 100 In Sodium Chloride 0.9% 100 ml @ 200 mls/hr IVPB Q12HR@1000,2200 [facility] Rx#: [id number] Magnesium Sulfate-D5w Pmx 100 1 gm In Dextrose/Water 1 100ml.bag @ 100 mls/hr IVPB Q1H [facility] Rx#: [id number] Sodium Chloride 0.9% 1, 250 000 ml @ 100 mls/hr IV . Q10H [facility] Rx#:[id number] metroNIDAZOLE-NS PMX 500 200 200 mg In Saline 1 100ml.bag @ 100 mls/hr IVPB Q6H [facility] Rx#:[id number] Intake, IV Titration 995.315 879.663 901.129 Amount Albumin Human 25% 50 ml 200 In Empty Bag 1 bag @ 50 mls/hr IVPB Q1H [facility] Rx#: [id number] DAPTOmycin 350 mg In 50 Sodium Chloride 0.9% 50 ml @ 100 mls/hr IVPB Q48H [facility] Rx#:[id number] Dextrose 5% in Water 1, 600 825 825 000 ml @ 75 mls/hr IV . [id number] [facility] Rx#:[id number] Norepinephrine 32 mg In 73.068 54.663 26.129 Sodium Chloride 0.9% 218 ml @ 0.03 MCG/KG/MIN 0. 778 mls/hr IV .Q24H [facility] Rx#:[id number] Vasopressin 60 unit In 122.247 Sodium Chloride 0.9% 150 ml @ 0.03 UNITS/MIN 4.59 mls/hr IV .Q24H [facility] Rx#: [id number] Tube Feeding 90 270 330 Other 90 Output: Drainage 260 20 Left Lower Abdomen 260 20 Urine 1665 1330 985 Stool 600 Other: Voiding Method Indwelling Catheter Indwelling Catheter Indwelling Catheter ABP, PAP, CO, CI - Last Documented Arterial Blood Pressure 99/56 - Labs CBC & Chem 7: 06/07/23 04:20 06/07/23 04:20 Labs: Abnormal Lab Results - Last 24 Hours (Table) 06/06/23 06/07/23 06/07/23 Range/Units 23:45 04:20 04:20 WBC 17.9 H (3.8-10.6) k/uL RBC 2.67 L (3.80-5.40) m/uL Hgb 7.8 L (11.4-16.0) gm/dL Hct 25.1 L (34.0-46.0) % RDW 18.3 H (11.5-15.5) % Plt Count 116 L (150-450) k/uL Chloride 113 H (98-107) mmol/L BUN 47 H (7-17) mg/dL Creatinine 2.00 H (0.52-1.04) mg/dL Glucose 202 H (74-99) mg/dL POC Glucose (mg/dL) 174 H (70-110) mg/dL Calcium 6.5 L (8.4-10.2) mg/dL Ionized Calcium Ines 4.0 L (4.5-5.3) mg/dL 06/07/23 06/07/23 06/07/23 Range/Units 05:57 11:47 17:15 WBC (3.8-10.6) k/uL RBC (3.80-5.40) m/uL Hgb (11.4-16.0) gm/dL Hct (34.0-46.0) % RDW (11.5-15.5) % Plt Count (150-450) k/uL Chloride (98-107) mmol/L BUN (7-17) mg/dL Creatinine (0.52-1.04) mg/dL Glucose (74-99) mg/dL POC Glucose (mg/dL) 230 H 256 H 229 H (70-110) mg/dL Calcium (8.4-10.2) mg/dL Ionized Calcium Ines (4.5-5.3) mg/dL
[2023-06-07] MEDS ORDERED: LORazepam 2 MG/ML INJ IV PRN (18:37)
[2023-06-07] MEDS ORDERED: ATROPINE OPHTH SOLN 1% 5ML BTL SUBLINGUAL PRN (18:37)
[2023-06-07] MEDS: MORPHINE SULFATE 4 MG/ML SYRINGE IV PRN ×3 (18:47→19:37)
[2023-06-07 19:03] VITALS: PULSE 89
[2023-06-07] MEDS ORDERED: HYDROmorphone 1 MG/ML 1 ML SYRINGE IVP PRN (19:05)
[2023-06-07] MEDS ORDERED: MORPHINE SULFATE (100 MG/2 ML) 100 MG in SODIUM CHLORIDE 0.9% 100 ML IV SCH (20:00)
[2023-06-07] MEDS ORDERED: SCOPOLAMINE 1 MG/72 HR PATCH TRANSDERM SCH (20:00)
[2023-06-07 20:40] VITALS: RESP 26
--- NOTE | 2023-06-11 15:04 | P.PN ---
Subjective Progress Note Date: 06/04/23 Principal diagnosis: Sepsis and intra-abdominal abscess Patient is a 63-year-old female with a past medical history significant for COPD PE osteoarthritis patient presented to the hospital 2 days ago for evaluation of abdominal pain, CT abdominal pelvis large pneumoperitoneum with large fecal bolus of the rectum ,patient is status post subtotal colectomy and partial proctectomy. On today's evaluation that is 06/04/2023 the patient remains to be intubated on the vent patient is afebrile patient requiring less pressor support per the nursing staff FiO2 stable at 35% no other changes reported by the nursing staff. Patient white count is 19.3 slightly less than yesterday hemoglobin is 8.9 creatinine is 2.48 blood cultures with E. coli abdominal cultures with Clostri dium anaerobes and Enterococcus Objective - Vital Signs Vital signs: Vital Signs Temp 97.9 F 06/04/23 12:00 Pulse 82 06/04/23 12:00 Resp 16 06/04/23 12:00 BP 107/68 06/04/23 09:00 Pulse Ox 98 06/04/23 12:24 FiO2 40 06/04/23 12:21 Intake & Output 06/03/23 06/04/23 06/04/23 18:59 06:59 18:59 Intake Total 1776.250 724.086 9179.556 Output Total 2425 740 290 Balance -648.750 -904.999 4333.556 Weight 83.6 kg 83.6 kg Intake: IV 712 202 9443 0.9 NS KVO 60 ARTERIAL LINE & CVP 72 46 24 Ampicillin-Sulbactam 3 gm 100 100 50 In Sodium Chloride 0.9% 100 ml @ 200 mls/hr IVPB Q12HR@1000,2200 [facility] Rx#: [id number] Sodium Chloride 0.9% 1, 960 000 ml @ 100 mls/hr IV . Q10H [facility] Rx#:[id number] metroNIDAZOLE-NS PMX 500 100 100 100 mg In Saline 1 100ml.bag @ 100 mls/hr IVPB Q6H [facility] Rx#:[id number] Intake, IV Titration 1184.250 202.932 317.556 Amount Calcium Gluconate in NaCl 100 2 gm In Saline 1 100ml. bag @ 100 mls/hr [facility] Rx#:[id number] DAPTOmycin 350 mg In 50 Sodium Chloride 0.9% 50 ml @ 100 mls/hr IVPB Q48H [facility] Rx#:[id number] Magnesium Sulfate-D5w Pmx 100 1 gm In Dextrose/Water 1 100ml.bag @ 100 mls/hr [facility] Rx#: [id number] Norepinephrine 32 mg In 48.056 52.294 21.989 Sodium Chloride 0.9% 218 ml @ 0.03 MCG/KG/MIN 0. 778 mls/hr IV .Q24H [facility] Rx#:[id number] Sodium Chloride 0.9% 1, 840 100 000 ml @ 100 mls/hr IV . Q10H [facility] Rx#:[id number] Sodium Chloride 0.9% 1, 150 000 ml @ 50 mls/hr IV . Q20H [facility] Rx#:[id number] Vasopressin 60 unit In 145.503 Sodium Chloride 0.9% 150 ml @ 0.03 UNITS/MIN 4.59 mls/hr IV .Q24H [facility] Rx#: [id number] propofoL 1,000 mg In 0.691 50.638 45.567 Empty Bag 1 bag @ 15 MCG/ KG/MIN 4.98 mls/hr IV . Q20H5M [facility] Rx#:[id number] Tube Feeding 150 Other 110 Output: Gastric Drainage 1300 Urine 1125 740 290 Other: Voiding Method Indwelling Catheter Indwelling Catheter Indwelling Catheter ABP, PAP, CO, CI - Last Documented Arterial Blood Pressure 105/63 - Exam GENERAL DESCRIPTION: Middle-aged female intubated on the vent RESPIRATORY SYSTEM: Unlabored breathing , decreased breath sounds at bases HEART: S1 S2 regular rate and rhythm , ABDOMEN: Soft , no tenderness EXTREMITIES: No edema feet - Labs CBC & Chem 7: 06/06/23 05:24 06/05/23 22:38 Labs: Abnormal Lab Results - Last 24 Hours (Table) 06/04/23 06/04/23 06/04/23 Range/Units 06:17 06:30 06:30 WBC 19.3 H (3.8-10.6) k/uL RBC 3.08 L (3.80-5.40) m/uL Hgb 8.9 L (11.4-16.0) gm/dL Hct 27.8 L (34.0-46.0) % RDW 17.5 H (11.5-15.5) % Plt Count 104 L D (150-450) k/uL ABG pO2 133 H (83-108) mmHg ABG HCO3 20 L (21-25) mmol/L ABG O2 Saturation 98.3 H (94-97) % Potassium 3.2 L (3.5-5.1) mmol/L Chloride 116 H (98-107) mmol/L Carbon Dioxide 18 L (22-30) mmol/L BUN 49 H (7-17) mg/dL Creatinine 2.48 H (0.52-1.04) mg/dL Calcium 5.9 L* (8.4-10.2) mg/dL AST 288 H (14-36) U/L ALT 138 H (4-34) U/L Alkaline Phosphatase 157 H (38-126) U/L Creatine Kinase 6574 H* (30-135) U/L Total Protein 3.9 L (6.3-8.2) g/dL Albumin 1.7 L (3.5-5.0) g/dL 06/04/23 Range/Units 12:01 WBC (3.8-10.6) k/uL RBC (3.80-5.40) m/uL Hgb (11.4-16.0) gm/dL Hct (34.0-46.0) % RDW (11.5-15.5) % Plt Count (150-450) k/uL ABG pO2 159 H (83-108) mmHg ABG HCO3 (21-25) mmol/L ABG O2 Saturation 98.4 H (94-97) % Potassium (3.5-5.1) mmol/L Chloride (98-107) mmol/L Carbon Dioxide (22-30) mmol/L BUN (7-17) mg/dL Creatinine (0.52-1.04) mg/dL Calcium (8.4-10.2) mg/dL AST (14-36) U/L ALT (4-34) U/L Alkaline Phosphatase (38-126) U/L Creatine Kinase (30-135) U/L Total Protein (6.3-8.2) g/dL Albumin (3.5-5.0) g/dL Microbiology - Last 24 Hours (Table) 05/31/23 14:31 Blood Culture - Preliminary Blood 05/31/23 11:41 Blood Culture - Preliminary Blood Assessment and Plan (1) Sepsis Current Visit: Yes Status: Acute Code(s): A41.9 - SEPSIS, UNSPECIFIED ORGANISM SNOMED Code(s): 37787912 (2) Peritonitis Current Visit: Yes Status: Acute Code(s): K65.9 - PERITONITIS, UNSPECIFIED SNOMED Code(s): 80814241 Plan: 1patient with a septic shock secondary to perforated colorectal anastomosis and bowel ischemia this patient evidence of marginal improvement status post extensive surgery we will need to cover for detailed gram-negative the likely pathogen 2E. coli bacteremia source likely abdominal which is a sensitive pathogen, however abdominal culture also growing enterococcus that is resistant to ampicillin along with anaerobic gram-negative bacilli 3patient did have a minimal clinical improvement possible plan for extubation patient to continue with the Unasyn and daptomycin will monitor clinical course closely prognosis remains to be guarded Dictation was produced using [employer] dictation software. please excuse any grammatical, word or spelling errors.
== END 2023-06-07 22:23 | disposition expired | DRG 710 ==
LOC: EC 15:50 → 5NMEDONC 19:24 → 2SICU 05-27 12:50
PROVIDERS: ADMIT Surgery Plastic and Reconstructive Surgery; ATTEND Surgery Plastic and Reconstructive Surgery
PROC: 0DBP0ZZ Excision of Rectum, Open Approach (ICD-10-PCS; 2023-05-27)
PROC: 0W9J00Z Drainage of Pelvic Cavity with Drainage Device, Open Approach (ICD-10-PCS; 2023-05-27)
PROC: 0DCP0ZZ Extirpation of Matter from Rectum, Open Approach (ICD-10-PCS; 2023-05-27)
PROC: 0UT60ZZ Resection of Left Fallopian Tube, Open Approach (ICD-10-PCS; 2023-05-27)
PROC: 0UT10ZZ Resection of Left Ovary, Open Approach (ICD-10-PCS; 2023-05-27)
PROC: 0D1B0Z4 Bypass Ileum to Cutaneous, Open Approach (ICD-10-PCS; 2023-05-27)
PROC: 0DJD4ZZ Inspection of Lower Intestinal Tract, Percutaneous Endoscopic Approach (ICD-10-PCS; 2023-05-27)
PROC: 30233J1 Transfusion of Nonautologous Serum Albumin into Peripheral Vein, Percutaneous Approach (ICD-10-PCS; 2023-05-27)
PROC: 0D9670Z Drainage of Stomach with Drainage Device, Via Natural or Artificial Opening (ICD-10-PCS; 2023-05-27)
PROC: 5A1955Z Respiratory Ventilation, Greater than 96 Consecutive Hours (ICD-10-PCS; 2023-05-27)
PROC: 3E043XZ Introduction of Vasopressor into Central Vein, Percutaneous Approach (ICD-10-PCS; 2023-05-27)
PROC: 0DTE0ZZ Resection of Large Intestine, Open Approach (ICD-10-PCS; principal; 2023-05-27 14:45)
PROC: 3E0G76Z Introduction of Nutritional Substance into Upper GI, Via Natural or Artificial Opening (ICD-10-PCS; 2023-05-30)
PROC: 02HV33Z Insertion of Infusion Device into Superior Vena Cava, Percutaneous Approach (ICD-10-PCS; 2023-06-01)
PROC: 5A09357 Assistance with Respiratory Ventilation, Less than 24 Consecutive Hours, Continuous Positive Airway Pressure (ICD-10-PCS; 2023-06-04)
DX: A41.51 Sepsis due to Escherichia coli [E. coli] (principal); R65.21 Severe sepsis with septic shock; N17.0 Acute kidney failure with tubular necrosis; J96.02 Acute respiratory failure with hypercapnia; J96.01 Acute respiratory failure with hypoxia; R57.8 Other shock; K63.1 Perforation of intestine (nontraumatic); G62.81 Critical illness polyneuropathy; K65.1 Peritoneal abscess; K56.2 Volvulus; K55.9 Vascular disorder of intestine, unspecified; K56.50 Intestinal adhesions [bands], unspecified as to partial versus complete obstruction; E43 Unspecified severe protein-calorie malnutrition; J44.9 Chronic obstructive pulmonary disease, unspecified; K56.49 Other impaction of intestine; E77.8 Other disorders of glycoprotein metabolism; K56.7 Ileus, unspecified; E27.40 Unspecified adrenocortical insufficiency; I73.9 Peripheral vascular disease, unspecified; I77.1 Stricture of artery; K56.41 Fecal impaction; Z51.5 Encounter for palliative care; Z66 Do not resuscitate; M62.82 Rhabdomyolysis; E87.20 Acidosis, unspecified; J90 Pleural effusion, not elsewhere classified; K66.8 Other specified disorders of peritoneum; R18.8 Other ascites; E87.0 Hyperosmolality and hypernatremia; M50.21 Other cervical disc displacement, high cervical region; K62.4 Stenosis of anus and rectum; K80.10 Calculus of gallbladder with chronic cholecystitis without obstruction; D62 Acute posthemorrhagic anemia; D63.8 Anemia in other chronic diseases classified elsewhere; E88.09 Other disorders of plasma-protein metabolism, not elsewhere classified; D69.59 Other secondary thrombocytopenia; R54 Age-related physical debility; E03.9 Hypothyroidism, unspecified; Z68.37 Body mass index [BMI] 37.0-37.9, adult; K21.9 Gastro-esophageal reflux disease without esophagitis; B96.20 Unspecified Escherichia coli [E. coli] as the cause of diseases classified elsewhere; F17.210 Nicotine dependence, cigarettes, uncomplicated; I45.10 Unspecified right bundle-branch block; M48.02 Spinal stenosis, cervical region; M50.31 Other cervical disc degeneration, high cervical region; M19.90 Unspecified osteoarthritis, unspecified site; Z16.24 Resistance to multiple antibiotics; N83.8 Other noninflammatory disorders of ovary, fallopian tube and broad ligament; B95.2 Enterococcus as the cause of diseases classified elsewhere; I99.8 Other disorder of circulatory system; T38.895A Adverse effect of other hormones and synthetic substitutes, initial encounter; E55.9 Vitamin D deficiency, unspecified; E86.1 Hypovolemia; E87.6 Hypokalemia; E87.70 Fluid overload, unspecified; J98.11 Atelectasis; R01.1 Cardiac murmur, unspecified; J01.90 Acute sinusitis, unspecified; J32.9 Chronic sinusitis, unspecified; H70.009 Acute mastoiditis without complications, unspecified ear; H70.10 Chronic mastoiditis, unspecified ear; R50.81 Fever presenting with conditions classified elsewhere; Z87.39 Personal history of other diseases of the musculoskeletal system and connective tissue; Z86.711 Personal history of pulmonary embolism; Z90.49 Acquired absence of other specified parts of digestive tract; Z85.89 Personal history of malignant neoplasm of other organs and systems; Z79.890 Hormone replacement therapy; Z86.14 Personal history of Methicillin resistant Staphylococcus aureus infection
CPT/HCPCS: 36415; 71045; 74018; 74177; 80048; 80053; 81001; 81003; 82306; 82310; 82330; 82533; 82550; 82805; 83605; 83690; 83735; 84100; 84132; 85025; 85027; 85379; 85384; 85610; 85730; 86850; 86870; 86880; 86900; 86901; 86902; 87040; 87045; 87046; 87070; 87075; 87077; 87186; 87205; 88305; 88309; 93005; 94002; 94003; 94640; 94660; 96361; 96374; 96375; 99285